=== PATIENT | male | born 1950 | race Caucasian/White ===

== ENCOUNTER → 2016-08-29 | Outpatient (REF) | payer MEDICARE ==
[2016-08-29 18:27] LABS: BASO % 0.8 % (0.0-1.0); EOS # 0.4 K/mm3 (0.0-0.50); EOS % 7.1 % (0.0-3.0); LARGE UNSTAINED CELL # 0.1 K/mm3 (0.0-0.4); LARGE UNSTAINED CELL % 1.2 % (0.0-4.0); LYMPH # 1.8 K/mm3 (1.5-4.5); LYMPH % 28.7 % (24.0-44.0); MEAN CORPUSCULAR HEMOGLOBIN 31.9 pg (27.0-33.0); MEAN CORPUSCULAR VOLUME 99.9 fl (80.0-96.0); MONO # 0.3 K/mm3 (0.0-0.8); NEUTROPHILS # 3.4 K/mm3 (1.8-7.7); NEUTROPHILS % 57.1 % (36.0-66.0); PLATELET COUNT, AUTOMATED 148 k/mm3 (150-450); RED CELL DISTRIBUTION WIDTH 13.3 % (11.5-14.5); WHITE BLOOD COUNT 5.9 K/mm3 (4.0-10.0)
[2016-08-29 19:22] LABS: ALBUMIN 3.6 GM/DL (3.2-5.2); ALBUMIN/GLOBULIN RATIO 1.33 (1.00-1.93); ALKALINE PHOSPHATASE 52 U/L (45-117); ALT/SGPT 26 U/L (12-78); ANION GAP 8 MEQ/L (8-16); AST/SGOT 21 U/L (15-37); BILIRUBIN,TOTAL 0.4 MG/DL (0.2-1.0); BLOOD UREA NITROGEN 18 MG/DL (7-18); CALCIUM LEVEL 8.4 MG/DL (8.8-10.2); CARBON DIOXIDE LEVEL 25 MEQ/L (21-32); CHLORIDE LEVEL 109 MEQ/L (98-107); CHOLESTEROL LEVEL 151 MG/DL (<200); CREATININE FOR GFR 1.31 MG/DL (0.70-1.30); GLOMERULAR FILTRATION RATE 58.3 (>49); GLUCOSE, FASTING 103 MG/DL (80-110); POTASSIUM SERUM 4.6 MEQ/L (3.5-5.1); SODIUM LEVEL 142 MEQ/L (136-145); TOTAL PROTEIN 6.3 GM/DL (6.4-8.2); TRIGLYCERIDES LEVEL 92 MG/DL (<150)
[2016-08-31 12:29] LABS: HIV SCREEN CENTAUR NEGATIVE (NEGATIVE)
== END ==
LOC: M SFHCCLAY 13:37
PROVIDERS: ATTEND Family Medicine
DX: I10 Essential (primary) hypertension (principal); Z11.59 Encounter for screening for other viral diseases; E78.5 Hyperlipidemia, unspecified; N52.1 Erectile dysfunction due to diseases classified elsewhere

== ENCOUNTER → 2016-10-21 | Outpatient (REF) | payer MEDICARE ==
[~2016-10-21] MED LIST: ASPI32ECTA PO; ATIV2TAB PO; CARV3.12 PO; CARV6.25 PO; FERR325T PO; GINK60TA3 PO; KOREAN GINSENG PO; LOSA25TA8 PO; LYRI300C PO; MAGN500C PO; NIAC250C13 PO; NIAC500T5 PO; PRAM0.5T4 PO; PRAV40TA2 PO; TRAZ100T4 PO; VITA500T3 PO; VITATAB11 PO; [UNRECOGNIZED DRUG - CODE] PO
[2016-10-21 18:10] LABS: ANION GAP 6 MEQ/L (8-16); BLOOD UREA NITROGEN 23 MG/DL (7-18); CALCIUM LEVEL 9.1 MG/DL (8.8-10.2); CARBON DIOXIDE LEVEL 28 MEQ/L (21-32); CHLORIDE LEVEL 109 MEQ/L (98-107); CREATININE FOR GFR 1.21 MG/DL (0.70-1.30); GLOMERULAR FILTRATION RATE > 60.0 (>49); GLUCOSE, FASTING 101 MG/DL (80-110); POTASSIUM SERUM 4.9 MEQ/L (3.5-5.1); SODIUM LEVEL 143 MEQ/L (136-145)
[2016-10-21 18:16] LABS: BASO % 0.6 % (0.0-1.0); EOS # 0.2 K/mm3 (0.0-0.50); EOS % 2.9 % (0.0-3.0); LARGE UNSTAINED CELL # 0.1 K/mm3 (0.0-0.4); LARGE UNSTAINED CELL % 2.2 % (0.0-4.0); LYMPH # 1.9 K/mm3 (1.5-4.5); LYMPH % 31.9 % (24.0-44.0); MEAN CORPUSCULAR HEMOGLOBIN 33.3 pg (27.0-33.0); MEAN CORPUSCULAR VOLUME 100.7 fl (80.0-96.0); MONO # 0.4 K/mm3 (0.0-0.8); MONO % 6.5 % (0.0-5.0); NEUTROPHILS # 3.4 K/mm3 (1.8-7.7); NEUTROPHILS % 55.9 % (36.0-66.0); PLATELET COUNT, AUTOMATED 145 k/mm3 (150-450); RED CELL DISTRIBUTION WIDTH 13.2 % (11.5-14.5); WHITE BLOOD COUNT 6.1 K/mm3 (4.0-10.0)
== END ==
LOC: M SFHCCLAY 13:21
PROVIDERS: ATTEND Family Medicine
DX: D64.9 Anemia, unspecified (principal); I10 Essential (primary) hypertension
CPT/HCPCS: 80048; 83540; 85025; 93005; G0463

== ENCOUNTER → 2016-10-26 | Day surgery (SDC) | payer MEDICARE ==
[~2016-10-26] VITALS: Ht 177.8 cm; Wt 81.6 kg
[~2016-10-26] MED LIST changes: +BUPIVACAINE HCL 0.25% 30 ML VIAL As Ordered ONE; +GLYCOPYRROLATE INJ 0.2 MG/ML 2 ML VIAL As Ordered ONE; +HYDROmorphone HCL 2 MG/ML 1ML VIAL (J1170) As Ordered ONE; +KETOROLAC 30 MG/ML VIAL (J1885) IV PRN; +LIDOCAINE 1% SDV INJ 30 ML VIAL As Ordered ONE; +LIDOCAINE 2% INJ 100 MG/5 ML SDV (FOR ANES.) As Ordered ONE; +LR 1,000 ML IV ONE; +LR 1,000 ML IV SCH; +MIDAZOLAM INJ 2 MG/2 ML VIAL (J2250) As Ordered ONE; +NEOSTIGMINE 1MG/ML 5 ML SYRINGE (J2710) As Ordered ONE; +NORCO, ANEXSIA 5/325MG TABLET (HYDROcodone/ACETAMINOPHEN) PO PRN; +ONDANSETRON 4MG/2ML VIAL (J2405) IV PRN; +PERCOCET 5MG/325MG TAB PO PRN; +PROPOFOL 200 MG/20 ML VIAL As Ordered ONE; +ROCURONIUM BROMIDE 50 MG/5 ML VIAL As Ordered ONE; +dexameTHASONE 4 MG/ML 1ML VIAL (J1100) As Ordered ONE; +ePHEDrine SULFATE 25 MG/5 ML(5MG/ML) SYRINGE As Ordered ONE; +fentaNYL 100 MCG/2 ML INJECTION (J3010) IV PRN; +fentaNYL 250 MCG/5 ML INJECTION (J3010) As Ordered ONE
--- NOTE | 2016-10-26 10:19 | ROOPDOC ---
[facility] Report Of Operation Report of Operation DATE OF PROCEDURE: 10/26/16 PREPROCEDURE DIAGNOSES:moderate sized right inguinal hernia POSTPROCEDURE DIAGNOSES: moderate sized indirect inguinal hernia PROCEDURE: Robotic Assisted Laparoscopic Right Inguinal Hernia Repair (VANDANA) SURGEON: Jason Thomson MD NUTRITION THERAPIST: Belkis Kee NP ANESTHESIA: general ESTIMATED BLOOD LOSS: Approximately 10 mL. COMPLICATIONS: none REMARKS: moderate sized inguinal hernia with large redundant sac dissected off the inguinal canal structures, a large light 3d-max mesh placed in the preperitoneal space. PROCEDURE NOTE: Patient is a 66 year old gengleman with a moderate sized hernia dropping to his scrotum with assocciated discomfort associated with the hernia. DESCRIPTION OF PROCEDURE: Patient was brought to the operating room, placed supine on the operating table. Compression boots placed in both lower extremities for DVT prophylaxis. After adequate general anesthesia started, he was placed on a lithotomy position. A spangler catheter placed without difficulty. His abdomen and groin/ pelvic area then prepped and draped in the usual sterile fashion. After a surgical timeout we began our surgery. Entry to the abdomen done through a small incision above the umbilical skin cleft. A Veress needle is inserted on a controlled fashion. CO2 insufflation started to pressure 15 mmHg. Using the same incision a 5 mm Visiport was then placed under direct vision of laparoscope. The insertion site was inspected for injury and none was found. Patient was then positioned on a Trendelenburg position with the affected side tilted upwards for adequate view of the hernia defect. 2 working ports placed to the right and left of the umbilicus along the same line. The da Michael robot to our was then positioned in between the patient' s legs and the [facility] onto the robot. I then unscrubbed and to control of the camera and the laparoscopic instruments at the surgeon's console. Diagnostic laparoscopy confirms presence of the right inguinal hernia which appears indirect in nature relative to its position to the inferior epigastric vessels. There is a slight indentation at the direct space but no clear hernia. The hernia fascial defect is about 2 centimeters in size. The peritoneum was opened up about 3 cm above the superior edge of the fascial defect of the inguinal hernia starting at the medial umbilical ligament going in an arc-like fashion laterally towards the level of the anterior superior iliac spine. This was then dissected mostly bluntly away from the abdominal wall. On approaching the inguinal hernia defect the hernia sac was pulled back into the preperitoneal space and carefully dissected off the testicular vessels and vas deferens. Both these structures were promptly identified and from the hernia sac. Hernia sac itself was quite redundant. Small amount of bleeding on opening up the cremaster muscles and dissecting the sac and the small lipoma away from the testicular vessels. This was controlled with bipolar cautery. After freeing up the hernia sac we continued dissecting it off inferiorly to from the vas deferens and testicular vessels. The preperitoneal space was dissected medially to expose the pubic tubercle up towards the symphysis pubis. The remaining are all her fibers were bluntly dissected away from the abdominal wall to create space for the mesh. After fully dissecting the preperitoneal space, we checked for adequate hemostasis. A large 3-D Max light mesh was chosen. This was rolled tightly placed through the laparoscopic port into the abdomen. This was positioned in the preperitoneal space abutting the abdominal wall to adequately cover the indirect as well as direct hernia space. I made sure the mesh was laying flat on the abdominal wall. This was secured onto the pubic tubercle with a single stitch of 2-0 Vicryl. Again after checking for hemostasis the preperitoneal space was then closed by suturing the peritoneal incision using a running stitch of 2-0V LOC. Prior to coming out a survey of the abdomen was done to make sure no inadvertent injury occurred. I then scrubbed back in. The abdomen was deflated and all ports removed. The 3 incisions were closed with 4-0 Monocryl in a subcuticular fashion. Dermabond was used for dressing. Spangler catheter was removed. Patient was then promptly awakened and extubated and brought to the recovery room stable . All counts of sponges and instruments were verified correct. JURGEN THOMSON MD October 26, 2016 09:27
[2016-10-26 12:53] VITALS: BP 126/73
== END | disposition home or self-care (01) ==
LOC: M SDC 05:36
PROVIDERS: ATTEND Surgery
DX: K40.90 Unilateral inguinal hernia, without obstruction or gangrene, not specified as recurrent (principal); I10 Essential (primary) hypertension; I48.91 Unspecified atrial fibrillation; I25.10 Atherosclerotic heart disease of native coronary artery without angina pectoris; I25.2 Old myocardial infarction; E78.5 Hyperlipidemia, unspecified; F41.9 Anxiety disorder, unspecified; Z98.61 Coronary angioplasty status; Z79.82 Long term (current) use of aspirin; Z79.899 Other long term (current) drug therapy; Z87.891 Personal history of nicotine dependence
CPT/HCPCS: 49650; C1781; J0690; J1100; J1170; J2250; J2710; J3010

== ENCOUNTER 2016-10-30 16:12 | Emergency (ER) | payer MEDICARE ==
[~2016-10-30 16:12] MED LIST changes: -BUPIVACAINE HCL 0.25% 30 ML VIAL As Ordered ONE; -CARV3.12 PO; -GLYCOPYRROLATE INJ 0.2 MG/ML 2 ML VIAL As Ordered ONE; -HYDROmorphone HCL 2 MG/ML 1ML VIAL (J1170) As Ordered ONE; -KETOROLAC 30 MG/ML VIAL (J1885) IV PRN; -LIDOCAINE 1% SDV INJ 30 ML VIAL As Ordered ONE; -LIDOCAINE 2% INJ 100 MG/5 ML SDV (FOR ANES.) As Ordered ONE; -LR 1,000 ML IV ONE; -LR 1,000 ML IV SCH; -MIDAZOLAM INJ 2 MG/2 ML VIAL (J2250) As Ordered ONE; -NEOSTIGMINE 1MG/ML 5 ML SYRINGE (J2710) As Ordered ONE; -NORCO, ANEXSIA 5/325MG TABLET (HYDROcodone/ACETAMINOPHEN) PO PRN; -ONDANSETRON 4MG/2ML VIAL (J2405) IV PRN; -PERCOCET 5MG/325MG TAB PO PRN; -PROPOFOL 200 MG/20 ML VIAL As Ordered ONE; -ROCURONIUM BROMIDE 50 MG/5 ML VIAL As Ordered ONE; -dexameTHASONE 4 MG/ML 1ML VIAL (J1100) As Ordered ONE; -ePHEDrine SULFATE 25 MG/5 ML(5MG/ML) SYRINGE As Ordered ONE; -fentaNYL 100 MCG/2 ML INJECTION (J3010) IV PRN; -fentaNYL 250 MCG/5 ML INJECTION (J3010) As Ordered ONE
--- NOTE | 2016-10-30 17:26 | REP ---
Chest one-view HISTORY: Shortness of breath Comparison: None The lungs are clear. The heart is normal in size. The pulmonary vasculature is normal in appearance. Impression: No acute disease. Signed by Tru Fregoso MD 10/30/2016 05:17 P
[2016-10-30 17:37] LABS: ANION GAP 8 MEQ/L (8-16); BLOOD UREA NITROGEN 33 MG/DL (7-18); CALCIUM LEVEL 8.8 MG/DL (8.8-10.2); CARBON DIOXIDE LEVEL 27 MEQ/L (21-32); CHLORIDE LEVEL 108 MEQ/L (98-107); CREATININE FOR GFR 1.06 MG/DL (0.70-1.30); GLOMERULAR FILTRATION RATE > 60.0 (>49); GLUCOSE, FASTING 103 MG/DL (80-110); POTASSIUM SERUM 3.8 MEQ/L (3.5-5.1); SODIUM LEVEL 143 MEQ/L (136-145)
[2016-10-30 17:43] LABS: MEAN CORPUSCULAR HEMOGLOBIN 33.5 pg (27.0-33.0); MEAN CORPUSCULAR HGB CONC 34.5 g/dl (32.0-36.5); RED CELL DISTRIBUTION WIDTH 13.1 % (11.5-14.5)
[2016-10-30] MEDS ORDERED: CARV3.12 PO (18:06)
[2016-10-30 18:15] VITALS: BP 140/65
[2016-10-30 18:22] LABS: BANDS 1 % (< 11)
[2016-10-30 18:49] LABS: METHADONE URINE NEGATIVE (NEGATIVE)
--- NOTE | 2016-10-31 06:54 | REP ---
CT HEAD WITHOUT CONTRAST: HISTORY: Altered mental status. A large area of decreased attenuation is present in the left temporal and parietal lobes and posterior left frontal lobe. There is mass effect with effacement of the overlying cortical sulci and partial effacement of the body of the left lateral and third ventricles with very minimal midline shift to the right. This represents a late acute infarction. A very small hemorrhagic component is present. There appears to be thrombus in the left middle cerebral artery. The ventricular system and cortical sulci are dilated consistent with minimal volume loss. There is no extracerebral collection. There is no fracture. Mucosal thickening is present in the left sphenoid sinus. A punctate radiopaque foreign body is present in the soft tissue overlying the left frontal bone. IMPRESSION: There is a late acute infarct in the left temporoparietal and posterior left frontal lobes with mass effect and very minimal midline shift to the right. A very small hemorrhagic component is present. Thrombus is present in the left middle cerebral artery. Signed by Tru Fregoso MD 10/31/2016 08:28 A
--- NOTE | 2016-10-31 07:02 | REP ---
CT CERVICAL SPINE WITHOUT CONTRAST: HISTORY: Fall. There is no acute fracture or subluxation. Disc bulges are present at the C3-4 and C4-5 levels. A disc bulge with associated osteophyte formation is present at the C5-6 level. There is minimal narrowing of the spinal canal. Uncinate process hypertrophy is present at the C5-6 level. This produces minimal narrowing of the neural foramina. The C5-6 intervertebral disc is decreased in height consistent with disc degeneration. IMPRESSION: 1. There is no acute fracture or subluxation. 2. There is cervical spondylosis at the C3-4 through C5-6 levels. Signed by Tru Fregoso MD 10/31/2016 08:28 A
== END 2016-10-30 18:21 | disposition short-term general hospital (02) ==
LOC: M ED 16:54
DX: I63.9 Cerebral infarction, unspecified (principal); R41.82 Altered mental status, unspecified; S40.211A Abrasion of right shoulder, initial encounter; W19.XXXA Unspecified fall, initial encounter; Y92.89 Other specified places as the place of occurrence of the external cause; Y93.89 Activity, other specified; Y99.8 Other external cause status; I10 Essential (primary) hypertension; K21.9 Gastro-esophageal reflux disease without esophagitis; Z79.899 Other long term (current) drug therapy
CPT/HCPCS: 36415; 70450; 71010; 72125; 80048; 80306; 81001; 82140; 85007; 85027; 99285; G0480

== ENCOUNTER 2018-06-27 14:15 | Outpatient (RCR) | payer MEDICARE, MEDICAID ==
[~2018-06-27 14:15] MED LIST changes: +ASPI325T25 PO; -ASPI32ECTA PO; +CARV3.12 PO; +FERR1TAB8 PO; -FERR325T PO; -GINK60TA3 PO; +GINK60TA4 PO; +LOSA25TA14 PO; -LOSA25TA8 PO; -PRAM0.5T4 PO; +PRAM0.5T7 PO; +TRAZ-163 PO; -TRAZ100T4 PO; +[UNRECOGNIZED DRUG - CODE] PO; -[UNRECOGNIZED DRUG - CODE] PO
== END 2018-06-28 ==
LOC: M ST 14:15
PROVIDERS: ATTEND Family Medicine
DX: I69.320 Aphasia following cerebral infarction (principal)

== ENCOUNTER 2018-07-25 14:15 | Outpatient (RCR) | payer MEDICARE, MEDICAID | END 2018-07-26 | LOC: M ST 14:15 | PROVIDERS: ATTEND Family Medicine | DX: I69.320 Aphasia following cerebral infarction (principal) ==

== ENCOUNTER 2018-08-01 13:53 | Outpatient (RCR) | payer MEDICARE, MEDICAID | END 2018-08-26 | LOC: M ST 13:53 | PROVIDERS: ATTEND Family Medicine | DX: I69.320 Aphasia following cerebral infarction (principal) ==

== ENCOUNTER 2018-12-26 16:32 | Inpatient (IN) | payer MEDICARE, MEDICAID ==
[~2018-12-26] VITALS: Ht 177.8 cm; Wt 97.5 kg
[~2018-12-26 16:32] MED LIST changes: +ASPI-255 PO; -ASPI325T25 PO; +CYAN500T8 PO; -VITA500T3 PO
[2018-12-26 20:18] VITALS: BP 119/67
[2018-12-26] MEDS ORDERED: MOM 30ML SUSPENSION UDC PO PRN (20:30)
[2018-12-26] MEDS ORDERED: MAALOX 30 ML SUSP *UDC PO PRN (20:30)
[2018-12-26] MEDS ORDERED: HYDR-3713 PO (21:54)
[2018-12-26] MEDS ORDERED: CITA20TA6 PO (21:54)
[2018-12-26] MEDS ORDERED: DILT30TA PO (21:54)
[2018-12-26] MEDS ORDERED: XARE20TA PO (22:02)
[2018-12-26] MEDS ORDERED: ATOR40TA75 PO (22:02)
[2018-12-26] MEDS ORDERED: PRAM1TAB7 PO (22:02)
[2018-12-26] MEDS ORDERED: QUET1TAB7 PO (22:02)
[2018-12-26] MEDS ORDERED: BUSP5TAB81 PO (22:02)
[2018-12-26] MEDS ORDERED: GABA-843 PO (22:02)
[2018-12-26] MEDS ORDERED: LEVE750T5 PO (22:02)
[2018-12-26] MEDS ORDERED: DULO30CA9 PO (22:02)
[2018-12-26] MEDS ORDERED: OMEP-218 PO (22:02)
[2018-12-26] MEDS ORDERED: FURO20TA2 PO (22:02)
[2018-12-26] MEDS ORDERED: PATIENT COMMENTS (22:04)
[2018-12-26] MEDS ORDERED: NS 1,000 ML IV SCH (22:30)
[2018-12-26] MEDS: DOCUSATE SODIUM 100 MG CAP PO SCH (22:50)
[2018-12-26] MEDS: MORPHINE 4 MG/ML 1ML VIAL/SYRINGE (J2270) IV PRN (22:53)
[2018-12-26 23:44] LABS: HEMATOCRIT 40.2 % (42.0-52.0); HEMOGLOBIN 12.8 g/dl (13.5-17.5); MEAN CORPUSCULAR HEMOGLOBIN 32.1 pg (27.0-33.0); MEAN CORPUSCULAR HGB CONC 31.8 g/dl (32.0-36.5); MEAN CORPUSCULAR VOLUME 100.8 fl (80.0-96.0); PLATELET COUNT, AUTOMATED 197 10^3/uL (150-450); RED BLOOD COUNT 3.99 10^6/uL (4.30-6.10); WHITE BLOOD COUNT 6.1 10^3/uL (4.0-10.0)
[2018-12-26 23:56] LABS: INR 1.1; PROTHROMBIN TIME 13.9 SECONDS (11.8-14.0)
[2018-12-26] MEDS ORDERED: VANCOMYCIN HCL 1,000 MG, VIAL MATE ADAPTER 1 EACH in D5W 250 ML IV ONE (23:59)
[2018-12-27 00:05] LABS: ALBUMIN 3.6 GM/DL (3.2-5.2); BILIRUBIN,TOTAL 0.9 MG/DL (0.2-1.0); CALCIUM LEVEL 9.2 MG/DL (8.8-10.2); CREATININE FOR GFR 1.38 MG/DL (0.70-1.30); GLOMERULAR FILTRATION RATE 54.5 (>49)
--- NOTE | 2018-12-27 00:24 | PHACANCOPD ---
PHARMACY VANCOMYCIN DOSING Pt Demographics Demographics Patient Age:68 , Weight:97.500 , Gender: male Adjusted Body Weight Date: 12/27/18, Adjusted Body Weight: Kg Events Past 24 Hours Events Past 24 Hours: NO: Dialysis, Diuretic Therapy, Change in CrCl, Fever, Elevation in WBC, Pending Diagnostics, Pending Procedures, Other Vancomycin Vancomycin Target Ranges: 10-20 mcg/ml Vancomycin Load Y/N: Yes Load Dose Date Time Vancomycin Load Dose: 2000mg Date: 12-27 Time: 0200 Vancomycin Dose Date: 12/27/18. Current Vancomycin Dose: [1000mg q8h] Intermittent Dosing?: No Labs Labs Item Value Date Time White Blood Count 6.1 10^3/uL 12/26/184 Glomerular Filtration Rate 54.5 12/26/184 Creatinine 1.38 MG/DL H 12/26/182313 Blood Urea Nitrogen 26 MG/DL H 12/26/182313 Vital Signs Label Value Date Time Patient Temperature 98.4 degrees F 12/26/182017 Temperature Source Temporal 12/26/182017 Micro Microbiology 12/26/18 Blood Culture, Received Pending 12/26/18 Blood Culture, Received Pending Creatinine Clearance Date:12/27/18. Creatinine Clearance: [~50]. Pending Labs trough 12-27 @1700 Assessment and Plan Maintaining Current Dose?: Yes Reason for dose change: No Dose Change Pharmacist Note Pharmacist Note Date: 12/27/18. Pharmacist note:Will monitor and make adjustments as needed. [facility] Dec 27, 2018 00:23
--- NOTE | 2018-12-27 01:14 | HPEPDOC ---
General Date of Admission Dec 26, 2018 at 20:18 Date of Service: Dec 26, 2018 Primary Care Physician: A Attending Physician: CHIQUIS CLEMENT MD Chief Complaint The patient is a 68-year-old male admitted with a reason for visit of Cellulitis. History of Present Illness Patient was admitted on 12/26/2018 .This is a 68-year-old male with a history of chronic A. 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 Leg worsened and increased swelling and redness and wound right calf and increased calf tenderness,. Patient went to [facility] and sonogram of the extremity was positive for bilateral DVT. The left one is non occlusive and a right showing improvement. Patient was started on clindamycin and sent to this hospital for further treatment. Patient denies any fever, chills. He'll be admitted to Med Surg for the above. White blood extremity cellulitis and infected wound right calf. Home Medications Scheduled Atorvastatin Calcium (Atorvastatin Calcium) 40 Mg Tablet, 40 MG PO DAILY, (Reported) Citalopram Hydrobromide (Citalopram HBr) 20 Mg Tablet, 20 MG PO DAILY, (Reported) A NEW RX FOR 40 MG WAS SENT TO THE PHARMACY 12/25/2018. UNKNOWN IF THIS HAS BEEN STARTED Diltiazem HCl (Diltiazem HCl) 30 Mg Tablet, 30 MG PO TID, (Reported) Duloxetine Hcl (Duloxetine HCl) 30 Mg Capsule.dr, 30 MG PO BID, (Reported) Furosemide (Furosemide) 20 Mg Tablet, 20 MG PO BID, (Reported) Gabapentin (Gabapentin) 300 Mg Capsule, 300 MG PO TID, (Reported) Levetiracetam (Levetiracetam) 750 Mg Tablet, 750 MG PO BID, (Reported) Omeprazole (Omeprazole) 20 Mg Capsule.dr, 20 MG PO DAILY, (Reported) Pramipexole Di-HCl (Pramipexole Dihydrochloride) 1 Mg Tablet, 1 MG PO BID, (Reported) Quetiapine Fumarate (Quetiapine Fumarate) 25 Mg Tablet, 25 MG PO QHS, (Reported) Rivaroxaban (Xarelto) 20 Mg Tablet, 20 MG PO DAILY, (Reported) Scheduled PRN Buspirone HCl (Buspirone HCl) 5 Mg Tablet, 5 MG PO TID PRN for ANXIETY, (Reported) Hydrocodone/Acetaminophen (Hydrocodone-Acetamin 5-325 mg) 1 Each Tablet, 1 TAB PO Q8H PRN for PAIN, (Reported) Miscellaneous Medications [Patient Comments] , (Reported) 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 HE DID NOT KNOW HIS MEDICATIONS AND WAS UNACCOMPANIED ON ADMISSION Allergies Coded Allergies: No Known Allergies (Unverified , 10/26/16) Past Medical History Medical History Atrial fibrillation. CVA. Hyperlipidemia Hypertension Chronic DVT, lower extremity. GERD Family History Family history reviewed and noncontributory Social History * Smoker: Denies (smoking, alcohol or drug use) A-FIB/CHADSVASC A-FIB History Current/History of A-Fib/PAF?: Yes Current PO Anticoag Therapy: Yes (DVT lower extremity) Review of Systems Other systems Positive right lower extremity swelling ,pain, and redness and wound,. No fever or chills .The rest of the 12 point review of systems negative Physical Examination General Exam: Positive: Alert (no distress) Eye Exam: Positive: PERRLA ENT Exam: Positive: Atraumatic Neck Exam: Positive: Supple Chest Exam: Positive: Clear to auscultation Heart Exam: Positive: Rate Normal, Regular Rhythm Abdomen Exam: Positive: Normal bowel sounds, Soft (nontender) Extremity Exam: Positive: Edema (positive redness right lower extremity and positive calf tenderness,. Positive pus wound drainage Right calf And 2+ pulses) Neuro Exam: Positive: Normal Speech (oriented 3. Right upper extremity deficit) Vital Signs see below Weight (kg): 177.8 BMI (kg): 30.8 Laboratory Data CBC/BMP see below Assessment/Plan #1. Cellulitis, swelling or extremity. Vancomycin IV and pharmacy protocol. Blood culture 2 #2. Infected wound, right calf, Vancomycin and wound care consult. #3. Bilateral lower extremity DVT, Continue xarelto. #4. Chronic A. fib, normal rate On Xarelto. diltiazem #5. Hemorrhagic CVA, right-sided weakness. On antiplatelet and xarelto. #6 Neuropathy . On gabapentin, cymbalta #7 history of CABG with CAD Carvedilol. #8. Hyperlipidemia, Continue atorvastatin Patient stable and case discussed with Dr. Dr. Clement. Hospitalists. Time spent 50 minutes. Follow wound culture Plan / VTE VTE Prophylaxis Ordered?: Yes JASON JENKINS PA-C Dec 26, 2018 23:08 CHIQUIS CLEMENT MD Dec 27, 2018 07:02
[2018-12-27] MEDS: VANCOMYCIN HCL 1,000 MG, VIAL MATE ADAPTER 1 EACH in D5W 250 ML IV SCH ×3 (03:17→17:45)
[2018-12-27 06:00] VITALS: BP 121/69
[2018-12-27] MEDS ORDERED: busPIRone 5 MG TAB PO PRN (07:00)
[2018-12-27 07:51] LABS: BASO % 0.5 % (0.0-1.0); EOS # 0.2 10^3/uL (0.0-0.50); EOS % 3.9 % (0.0-3.0); HEMATOCRIT 36.9 % (42.0-52.0); HEMOGLOBIN 11.8 g/dl (13.5-17.5); LYMPH # 1.2 10^3/uL (1.5-4.5); LYMPH % 19.7 % (24.0-44.0); MEAN CORPUSCULAR HEMOGLOBIN 31.6 pg (27.0-33.0); MEAN CORPUSCULAR VOLUME 98.7 fl (80.0-96.0); MONO % 16.3 % (0.0-5.0); NEUTROPHILS # 3.6 10^3/uL (1.8-7.7); NEUTROPHILS % 58.9 % (36.0-66.0); PLATELET COUNT, AUTOMATED 188 10^3/uL (150-450); RED BLOOD COUNT 3.74 10^6/uL (4.30-6.10); WHITE BLOOD COUNT 6.1 10^3/uL (4.0-10.0)
[2018-12-27 08:21] LABS: CALCIUM LEVEL 8.7 MG/DL (8.8-10.2); CREATININE FOR GFR 1.32 MG/DL (0.70-1.30); GLOMERULAR FILTRATION RATE 57.4 (>49)
[2018-12-27] MEDS: GABAPENTIN 300 MG CAP PO SCH ×3 (08:53→21:37)
[2018-12-27] MEDS: DOCUSATE SODIUM 100 MG CAP PO SCH ×2 (08:53→21:37)
[2018-12-27] MEDS: DULoxetine 30 MG CAP (CYMBALTA) PO SCH ×2 (08:53→21:37)
[2018-12-27] MEDS: levETIRAcetam 250MG TABLET (KEPPRA) PO SCH ×2 (08:53→21:37)
[2018-12-27] MEDS: CitaloPRAM (CeleXA) 20 MG TAB PO SCH (08:54)
[2018-12-27] MEDS: ATORVASTATIN 20 MG TAB PO SCH (08:55)
[2018-12-27] MEDS: OMEPRAZOLE 20 MG CAP PO SCH (08:55)
[2018-12-27] MEDS: PRAMIPEXOLE 1 MG TAB PO SCH ×2 (08:55→21:36)
[2018-12-27] MEDS: NORCO, ANEXSIA 5/325MG TABLET (HYDROcodone/ACETAMINOPHEN) PO PRN ×2 (08:57→21:36)
[2018-12-27] MEDS: PIPERACILLIN/TAZOBACTAM SOD 3.375 GM in D5W MINI-BAG PLUS 50 ML IV SCH ×3 (13:26→18:52)
[2018-12-27 14:00] VITALS: BP 104/65
[2018-12-27] MEDS: MORPHINE 4 MG/ML 1ML VIAL/SYRINGE (J2270) IV PRN (14:57)
[2018-12-27] MEDS: RIVAROXABAN 20 MG TAB (XARELTO) PO SCH (17:45)
--- NOTE | 2018-12-27 19:15 | PHACANCOPD ---
PHARMACY VANCOMYCIN DOSING Pt Demographics Demographics Patient Age:68 , Weight:97.500 , Gender: male Events Past 24 Hours Events Past 24 Hours: NO: Dialysis, Diuretic Therapy, Change in CrCl, Fever, Elevation in WBC, Pending Diagnostics, Pending Procedures, Other Vancomycin Vancomycin indication: SSSI Vancomycin Target Ranges: 10-20 mcg/ml Vancomycin Load Y/N: Yes Load Dose Date Time Vancomycin Load Dose: 2000mg Date: 12-27 Time: 0200 Vancomycin Dose Date: 12/27/18. Current Vancomycin Dose: [1000mg q8h] Intermittent Dosing?: No Labs Labs Laboratory Tests Test 12/27/18 17:20 Vancomycin Level Trough 21.3 UG/ML (10.0-20.0) Laboratory Tests 12/27/18 07:26 Red Blood Count 3.74, Mean Corpuscular Volume 98.7, Mean Corpuscular Hemoglobin 31.6, Mean Corpuscular Hemoglobin Concent 32.0, Red Cell Distribution Width 13.8, Calcium Level 8.7, Neutrophils (%) (Auto) 58.9, Lymphocytes (%) (Auto) 19.7, Monocytes (%) (Auto) 16.3, Eosinophils (%) (Auto) 3.9, Basophils (%) (Auto) 0.5, Neutrophils # (Auto) 3.6, Lymphocytes # (Auto) 1.2, Monocytes # (Auto) 1.0, Eosinophils # (Auto) 0.2, Basophils # (Auto) 0.0 Micro Microbiology 12/26/18 Blood Culture, Received Pending 12/26/18 Blood Culture, Received Pending Creatinine Clearance Date:12/27/18. Creatinine Clearance: [~50]. Assessment and Plan Maintaining Current Dose?: No Reason for dose change: Trough too high Pharmacist Note Pharmacist Note Date: 12/27/18. PharmD note: VANCO 1GM IV Q8H RESULTED IN A VANCO TR 21.3mcg/ML (goal 10-20 for SSSI). HIS 18:00 DOSE IS CURRENTLY INFUSING. WILL CHANGE HIS VANCO TO 1GM IV Q12H STARTING AT 09:00 [facility] Dec 27, 2018 19:15
[2018-12-27 20:00] VITALS: BP 126/69
[2018-12-27] MEDS: QUEtiapine FUMARATE 25 MG TAB PO SCH (21:37)
[2018-12-28] MEDS: CLINDAMYCIN 600 MG in APPROPRIATE DILUENT 1 EA IV SCH ×4 (01:10→17:26)
[2018-12-28] MEDS: NORCO, ANEXSIA 5/325MG TABLET (HYDROcodone/ACETAMINOPHEN) PO PRN ×3 (05:57→22:13)
[2018-12-28 06:00] VITALS: BP 135/75
[2018-12-28 07:43] LABS: BASO % 0.6 % (0.0-1.0); EOS # 0.3 10^3/uL (0.0-0.50); EOS % 5.5 % (0.0-3.0); HEMATOCRIT 33.5 % (42.0-52.0); HEMOGLOBIN 10.8 g/dl (13.5-17.5); LYMPH % 20.1 % (24.0-44.0); MEAN CORPUSCULAR HEMOGLOBIN 31.5 pg (27.0-33.0); MEAN CORPUSCULAR HGB CONC 32.2 g/dl (32.0-36.5); MEAN CORPUSCULAR VOLUME 97.7 fl (80.0-96.0); MONO # 0.6 10^3/uL (0.0-0.8); MONO % 12.1 % (0.0-5.0); NEUTROPHILS # 2.9 10^3/uL (1.8-7.7); NEUTROPHILS % 60.9 % (36.0-66.0); PLATELET COUNT, AUTOMATED 175 10^3/uL (150-450); RED BLOOD COUNT 3.43 10^6/uL (4.30-6.10); WHITE BLOOD COUNT 4.7 10^3/uL (4.0-10.0)
[2018-12-28 08:06] LABS: BLOOD UREA NITROGEN 22 MG/DL (7-18); CALCIUM LEVEL 8.8 MG/DL (8.8-10.2); CARBON DIOXIDE LEVEL 27 MEQ/L (21-32); CHLORIDE LEVEL 106 MEQ/L (98-107); CREATININE FOR GFR 1.23 MG/DL (0.70-1.30); GLOMERULAR FILTRATION RATE > 60.0 (>49); GLUCOSE, FASTING 97 MG/DL (70-100); POTASSIUM SERUM 3.9 MEQ/L (3.5-5.1); SODIUM LEVEL 139 MEQ/L (136-145)
[2018-12-28] MEDS ORDERED: VANCOMYCIN HCL 1,000 MG, VIAL MATE ADAPTER 1 EACH in D5W 250 ML IV SCH (09:00)
[2018-12-28] MEDS: PRAMIPEXOLE 1 MG TAB PO SCH ×2 (09:12→22:13)
[2018-12-28] MEDS: DOCUSATE SODIUM 100 MG CAP PO SCH ×2 (09:12→22:12)
[2018-12-28] MEDS: ATORVASTATIN 20 MG TAB PO SCH (09:12)
[2018-12-28] MEDS: CitaloPRAM (CeleXA) 20 MG TAB PO SCH (09:12)
[2018-12-28] MEDS: levETIRAcetam 250MG TABLET (KEPPRA) PO SCH ×2 (09:12→22:14)
[2018-12-28] MEDS: DULoxetine 30 MG CAP (CYMBALTA) PO SCH ×2 (09:12→22:14)
[2018-12-28] MEDS: GABAPENTIN 300 MG CAP PO SCH ×3 (09:12→22:14)
[2018-12-28] MEDS: OMEPRAZOLE 20 MG CAP PO SCH (09:12)
[2018-12-28 14:00] VITALS: BP 142/60
[2018-12-28] MEDS: RIVAROXABAN 20 MG TAB (XARELTO) PO SCH (17:26)
[2018-12-28 22:00] VITALS: BP 120/68
[2018-12-28] MEDS: QUEtiapine FUMARATE 25 MG TAB PO SCH (22:14)
--- NOTE | 2018-12-28 23:51 | IPNPDOC ---
Date Seen The patient was seen on 12/28/18. Progress Note SUBJECTIVE:Patient complained of right leg pain with movement, but swelling is improving and he can move his legs a bit more now, but otherwise non complaint, denied fever, chills, nausea and vomiting Objective vital signs and labs reviewed PHYSICAL EXAMINATION Gen: NAD, hx of right sided cva, has some dysathria HEENT: normocephalic, atraumatic, PERRLA , EOMI, neck supple CVS: RRR, normal S1n S2, no murmur, rubs, or gallops, b/l lower extremity edema R>L, no jvd Resp: LCTAB, no rhonchi, wheezes, or crackles Abd : soft, normal bowel sounds, no rebound tenderness or guarding MSK: +swelling, + erythema, and tenderness , reduced strength on the right LE and UE 3/5, left side 5/5 skin - right lower extremity swelling with areas of small wounds possible venous ulcers , looks infected , Neuro: awake and alert, no confusion Psych: normal mood and affect, Assessment and plan Cellulitis, swelling of lower extremities, right but greater than left - with areas of open wound/ulcers . dc Vancomycin IV and pharmacy protocol. c/w iv clinda f/u wound culture report and adjust abx accordingly Bilateral lower extremity DVT,- based on previous notes, haven't seen any test report Continue xarelto. Chronic A. fib, normal rate On Xarelto. diltiazem Hemorrhagic CVA, right-sided weakness.- chronic On antiplatelet and xarelto. Neuropathy . On gabapentin, cymbalta history of CABG with CAD Carvedilol. Hyperlipidemia, Continue atorvastatin dvt ppx VS, I&O, 24H, Fishbone Vital Signs/I&O Vital Signs Date Time Temp Pulse Resp B/P (MAP) Pulse Ox O2 Delivery O2 Flow Rate FiO2 12/28/18 22:43 18 12/28/18 22:13 78 131/72 12/28/18 22:00 98.8 96 12/27/18 20:00 2.0 I&O- Last 24 Hours up to 6 AM 12/28/18 06:00 Intake Total 810 ml Output Total 950 ml Balance -140 ml Laboratory Data 24H LABS Laboratory Tests 2 12/28/18 07:32: Immature Granulocyte % (Auto) 0.8, White Blood Count 4.7, Red Blood Count 3.43L, Hemoglobin 10.8L, Hematocrit 33.5L, Mean Corpuscular Volume 97.7H, Mean Corpuscular Hemoglobin 31.5, Mean Corpuscular Hemoglobin Concent 32.2, Red Cell Distribution Width 13.4, Platelet Count 175, Neutrophils (%) (Auto) 60.9, Lymphocytes (%) (Auto) 20.1L, Monocytes (%) (Auto) 12.1H, Eosinophils (%) (Auto) 5.5H, Basophils (%) (Auto) 0.6, Neutrophils # (Auto) 2.9, Lymphocytes # (Auto) 1.0L, Monocytes # (Auto) 0.6, Eosinophils # (Auto) 0.3, Basophils # (Auto) 0.0, Nucleated Red Blood Cells % (auto) 0.0, Anion Gap 6L, Glomerular Filtration Rate > 60.0, Blood Urea Nitrogen 22H, Creatinine 1.23, Sodium Level 139, Potassium Level 3.9, Chloride Level 106, Carbon Dioxide Level 27, Calcium Level 8.8 CBC/BMP Laboratory Tests 12/28/18 07:32 Red Blood Count 3.43 L, Mean Corpuscular Volume 97.7 H, Mean Corpuscular Hemoglobin 31.5, Mean Corpuscular Hemoglobin Concent 32.2, Red Cell Distribution Width 13.4, Neutrophils (%) (Auto) 60.9, Lymphocytes (%) (Auto) 20.1 L, Monocytes (%) (Auto) 12.1 H, Eosinophils (%) (Auto) 5.5 H, Basophils (%) (Auto) 0.6, Neutrophils # (Auto) 2.9, Lymphocytes # (Auto) 1.0 L, Monocytes # (Auto) 0.6, Eosinophils # (Auto) 0.3, Basophils # (Auto) 0.0, Calcium Level 8.8 Microbiology Microbiology 12/26/18 Blood Culture - Preliminary, Resulted No Growth after 48 hours. All Specime... 12/26/18 Blood Culture - Preliminary, Resulted No Growth after 48 hours. All Specime... 12/28/18 Gram Stain - Final, Resulted 12/28/18 Wound Culture, Resulted Pending 12/28/18 Gram Stain - Final, Resulted 12/28/18 Wound Culture, Resulted Pending TRENT CASTAÑEDA MD Dec 28, 2018 23:51
[2018-12-29] MEDS: CLINDAMYCIN 600 MG in APPROPRIATE DILUENT 1 EA IV SCH ×4 (00:52→18:05)
[2018-12-29 06:00] VITALS: BP 129/76
[2018-12-29] MEDS: NORCO, ANEXSIA 5/325MG TABLET (HYDROcodone/ACETAMINOPHEN) PO PRN ×2 (06:45→15:42)
[2018-12-29] MEDS: levETIRAcetam 250MG TABLET (KEPPRA) PO SCH ×2 (09:08→20:03)
[2018-12-29] MEDS: CitaloPRAM (CeleXA) 20 MG TAB PO SCH (09:09)
[2018-12-29] MEDS: PRAMIPEXOLE 1 MG TAB PO SCH ×2 (09:09→20:03)
[2018-12-29] MEDS: GABAPENTIN 300 MG CAP PO SCH ×3 (09:09→20:04)
[2018-12-29] MEDS: ATORVASTATIN 20 MG TAB PO SCH (09:09)
[2018-12-29] MEDS: OMEPRAZOLE 20 MG CAP PO SCH (09:10)
[2018-12-29] MEDS: DOCUSATE SODIUM 100 MG CAP PO SCH ×2 (09:10→20:03)
[2018-12-29] MEDS: DULoxetine 30 MG CAP (CYMBALTA) PO SCH ×2 (09:10→20:04)
[2018-12-29 09:20] LABS: BASO % 0.5 % (0.0-1.0); EOS # 0.2 10^3/uL (0.0-0.50); EOS % 5.1 % (0.0-3.0); HEMOGLOBIN 12.1 g/dl (13.5-17.5); LYMPH # 0.9 10^3/uL (1.5-4.5); LYMPH % 21.9 % (24.0-44.0); MEAN CORPUSCULAR HEMOGLOBIN 31.7 pg (27.0-33.0); MEAN CORPUSCULAR VOLUME 102.1 fl (80.0-96.0); MONO # 0.5 10^3/uL (0.0-0.8); MONO % 12.4 % (0.0-5.0); NEUTROPHILS # 2.4 10^3/uL (1.8-7.7); NEUTROPHILS % 59.4 % (36.0-66.0); PLATELET COUNT, AUTOMATED 181 10^3/uL (150-450); RED BLOOD COUNT 3.82 10^6/uL (4.30-6.10); WHITE BLOOD COUNT 4.1 10^3/uL (4.0-10.0)
[2018-12-29 10:28] LABS: BLOOD UREA NITROGEN 20 MG/DL (7-18); CALCIUM LEVEL 8.2 MG/DL (8.8-10.2); CARBON DIOXIDE LEVEL 22 MEQ/L (21-32); CHLORIDE LEVEL 108 MEQ/L (98-107); GLOMERULAR FILTRATION RATE > 60.0 (>49); GLUCOSE, FASTING 108 MG/DL (70-100); POTASSIUM SERUM 4.4 MEQ/L (3.5-5.1); SODIUM LEVEL 140 MEQ/L (136-145)
--- NOTE | 2018-12-29 12:38 | IPNPDOC ---
Date Seen The patient was seen on 12/29/18. Progress Note SUBJECTIVE: no complaints or overnight events OBJECTIVE PHYSICAL EXAMINATION: VITAL SIGNS: Please see below. abdomen soft NT ND RLE swollen compared to left with erythema and open wound ASSESSMENT AND PLAN: PROBLEMS: #1. Cellulitis, swelling or extremity. IV Clinda #2. Infected wound, right calf, wound care consult. #3. Bilateral lower extremity DVT, Continue xarelto. #4. Chronic A. fib, normal rate On Xarelto. diltiazem #5. Hemorrhagic CVA, right-sided weakness. On antiplatelet and xarelto. #6 Neuropathy . On gabapentin, cymbalta #7 history of CABG with CAD Carvedilol. #8. Hyperlipidemia, Continue atorvastatin DISPOSITION: pending PT consult and clinical improvement of cellulitis VS, I&O, 24H, Fishbone Vital Signs/I&O Vital Signs Date Time Temp Pulse Resp B/P (MAP) Pulse Ox O2 Delivery O2 Flow Rate FiO2 12/29/18 09:00 82 96/62 12/29/18 07:15 18 12/29/18 06:00 97.9 94 12/27/18 20:00 2.0 I&O- Last 24 Hours up to 6 AM 12/29/18 06:00 Intake Total 2016 ml Output Total 1340 ml Balance 676 ml Laboratory Data 24H LABS Laboratory Tests 2 12/29/18 08:39: Immature Granulocyte % (Auto) 0.7, White Blood Count 4.1, Red Blood Count 3.82L, Hemoglobin 12.1L, Hematocrit 39.0L, Mean Corpuscular Volume 102.1H, Mean Corpuscular Hemoglobin 31.7, Mean Corpuscular Hemoglobin Concent 31.0L, Red Cell Distribution Width 13.4, Platelet Count 181, Neutrophils (%) (Auto) 59.4, Lymphocytes (%) (Auto) 21.9L, Monocytes (%) (Auto) 12.4H, Eosinophils (%) (Auto) 5.1H, Basophils (%) (Auto) 0.5, Neutrophils # (Auto) 2.4, Lymphocytes # (Auto) 0.9L, Monocytes # (Auto) 0.5, Eosinophils # (Auto) 0.2, Basophils # (Auto) 0.0, Nucleated Red Blood Cells % (auto) 0.0, Anion Gap 10, Glomerular Filtration Rate > 60.0, Blood Urea Nitrogen 20H, Creatinine 1.20, Sodium Level 140, Potassium Level 4.4, Chloride Level 108H, Carbon Dioxide Level 22, Calcium Level 8.2L CBC/BMP Laboratory Tests 12/29/18 08:39 Red Blood Count 3.82 L, Mean Corpuscular Volume 102.1 H, Mean Corpuscular Hemoglobin 31.7, Mean Corpuscular Hemoglobin Concent 31.0 L, Red Cell Distribution Width 13.4, Neutrophils (%) (Auto) 59.4, Lymphocytes (%) (Auto) 21.9 L, Monocytes (%) (Auto) 12.4 H, Eosinophils (%) (Auto) 5.1 H, Basophils (%) (Auto) 0.5, Neutrophils # (Auto) 2.4, Lymphocytes # (Auto) 0.9 L, Monocytes # (Auto) 0.5, Eosinophils # (Auto) 0.2, Basophils # (Auto) 0.0, Calcium Level 8.2 L Microbiology Microbiology 12/26/18 Blood Culture - Preliminary, Resulted No Growth after 48 hours. All Specime... 12/26/18 Blood Culture - Preliminary, Resulted No Growth after 48 hours. All Specime... 12/28/18 Gram Stain - Final, Resulted 12/28/18 Wound Culture, Resulted Pending 12/28/18 Gram Stain - Final, Resulted 12/28/18 Wound Culture, Resulted Pending JET KINCAID MD Dec 29, 2018 12:38
[2018-12-29] MEDS: RIVAROXABAN 20 MG TAB (XARELTO) PO SCH (18:05)
[2018-12-29] MEDS: QUEtiapine FUMARATE 25 MG TAB PO SCH (20:04)
[2018-12-29 22:00] VITALS: BP 123/78
[2018-12-30] MEDS: CLINDAMYCIN 600 MG in APPROPRIATE DILUENT 1 EA IV SCH ×3 (01:19→12:52)
[2018-12-30 06:00] VITALS: BP 120/81
[2018-12-30 08:24] LABS: BASO % 0.7 % (0.0-1.0); EOS # 0.2 10^3/uL (0.0-0.50); EOS % 4.4 % (0.0-3.0); HEMATOCRIT 36.3 % (42.0-52.0); LYMPH # 0.9 10^3/uL (1.5-4.5); LYMPH % 20.4 % (24.0-44.0); MEAN CORPUSCULAR HEMOGLOBIN 32.6 pg (27.0-33.0); MEAN CORPUSCULAR HGB CONC 33.1 g/dl (32.0-36.5); MEAN CORPUSCULAR VOLUME 98.6 fl (80.0-96.0); MONO # 0.4 10^3/uL (0.0-0.8); MONO % 8.7 % (0.0-5.0); NEUTROPHILS # 2.8 10^3/uL (1.8-7.7); NEUTROPHILS % 65.1 % (36.0-66.0); PLATELET COUNT, AUTOMATED 198 10^3/uL (150-450); RED BLOOD COUNT 3.68 10^6/uL (4.30-6.10); WHITE BLOOD COUNT 4.3 10^3/uL (4.0-10.0)
[2018-12-30 08:43] LABS: BLOOD UREA NITROGEN 19 MG/DL (7-18); CALCIUM LEVEL 8.3 MG/DL (8.8-10.2); CARBON DIOXIDE LEVEL 26 MEQ/L (21-32); CHLORIDE LEVEL 109 MEQ/L (98-107); CREATININE FOR GFR 1.19 MG/DL (0.70-1.30); GLOMERULAR FILTRATION RATE > 60.0 (>49); GLUCOSE, FASTING 108 MG/DL (70-100); POTASSIUM SERUM 3.8 MEQ/L (3.5-5.1); SODIUM LEVEL 140 MEQ/L (136-145)
[2018-12-30] MEDS: GABAPENTIN 300 MG CAP PO SCH ×3 (09:30→21:14)
[2018-12-30] MEDS: OMEPRAZOLE 20 MG CAP PO SCH (09:30)
[2018-12-30] MEDS: PRAMIPEXOLE 1 MG TAB PO SCH ×2 (09:30→21:14)
[2018-12-30] MEDS: DOCUSATE SODIUM 100 MG CAP PO SCH ×2 (09:30→21:14)
[2018-12-30] MEDS: CitaloPRAM (CeleXA) 20 MG TAB PO SCH (09:30)
[2018-12-30] MEDS: levETIRAcetam 250MG TABLET (KEPPRA) PO SCH ×2 (09:30→21:14)
[2018-12-30] MEDS: ATORVASTATIN 20 MG TAB PO SCH (09:30)
[2018-12-30] MEDS: DULoxetine 30 MG CAP (CYMBALTA) PO SCH ×2 (09:31→21:14)
--- NOTE | 2018-12-30 14:35 | IPNPDOC ---
Date Seen The patient was seen on 12/27/18. Progress Note SUBJECTIVE: Patient complained of right leg pain with movement, but otherwise non complaint, denied fever, chills, nausea and vomiting Objective vital signs and labs reviewed PHYSICAL EXAMINATION Gen: NAD, hx of right sided cva, has some dysathria HEENT: normocephalic, atraumatic, PERRLA , EOMI, neck supple CVS: RRR, normal S1n S2, no murmur, rubs, or gallops, b/l lower extremity edema R>L, no jvd Resp: LCTAB, no rhonchi, wheezes, or crackles Abd : soft, normal bowel sounds, no rebound tenderness or guarding MSK: +swelling, + erythema, and tenderness , reduced strength on the right LE and UE 3/5, left side 5/5 skin - right lower extremity swelling with areas of small wounds possible venous ulcers , looks infected , Neuro: awake and alert, no confusion Psych: normal mood and affect, Assessment and plan Cellulitis, swelling of lower extremities, right but greater than left - with areas of open wound/ulcers . Vancomycin IV and pharmacy protocol. added zosyn, but patient c/o blurry vision with zosyn use - so it was dc later and switched to clinda f/u wound culture Bilateral lower extremity DVT,- based on previous notes, haven't seen any test report Continue xarelto. Chronic A. fib, normal rate On Xarelto. diltiazem Hemorrhagic CVA, right-sided weakness.- chronic On antiplatelet and xarelto. Neuropathy . On gabapentin, cymbalta history of CABG with CAD Carvedilol. Hyperlipidemia, Continue atorvastatin VS, I&O, 24H, Mil[place] Vital Signs/I&O Vital Signs Date Time Temp Pulse Resp B/P (MAP) Pulse Ox O2 Delivery O2 Flow Rate FiO2 12/27/18 22:06 16 12/27/18 21:39 87 110/60 12/27/18 20:00 97.4 93 2.0 I&O- Last 24 Hours up to 6 AM 12/27/18 05:59 Intake Total 300 ml Output Total 350 ml Balance -50 ml Laboratory Data 24H LABS Laboratory Tests 2 12/26/18 23:14: Nucleated Red Blood Cells % (auto) 0.0, Prothrombin Time 13.9, Prothromb Time International Ratio 1.10, Anion Gap 7L, Glomerular Filtration Rate 54.5, Blood Urea Nitrogen 26H, Creatinine 1.38H, Sodium Level 139, Potassium Level 4.0, Chloride Level 104, Carbon Dioxide Level 28, Calcium Level 9.2, Aspartate Amino Transf (AST/SGOT) 19, Alanine Aminotransferase (ALT/SGPT) 15, Alkaline Phosphatase 57, Total Bilirubin 0.9, Total Protein 8.0, Albumin 3.6, Albumin/Globulin Ratio 0.82L, Procalcitonin 0.25 12/27/18 07:26: Nucleated Red Blood Cells % (auto) 0.0, Anion Gap 6L, Glomerular Filtration Rate 57.4, Blood Urea Nitrogen 24H, Creatinine 1.32H, Sodium Level 139, Potassium L evel 4.0, Chloride Level 105, Carbon Dioxide Level 28, Calcium Level 8.7L, Immature Granulocyte % (Auto) 0.7, White Blood Count 6.1, Red Blood Count 3.74L, Hemoglobin 11.8L, Hematocrit 36.9L, Mean Corpuscular Volume 98.7H, Mean Corpuscular Hemoglobin 31.6, Mean Corpuscular Hemoglobin Concent 32.0, Red Cell Distribution Width 13.8, Platelet Count 188, Neutrophils (%) (Auto) 58.9, Lymphocytes (%) (Auto) 19.7L, Monocytes (%) (Auto) 16.3H, Eosinophils (%) (Auto) 3.9H, Basophils (%) (Auto) 0.5, Neutrophils # (Auto) 3.6, Lymphocytes # (Auto) 1.2L, Monocytes # (Auto) 1.0H, Eosinophils # (Auto) 0.2, Basophils # (Auto) 0.0 12/27/18 17:20: Vancomycin Level Trough 21.3H CBC/BMP Laboratory Tests 12/26/18 23:14 Red Blood Count 3.99 L, Mean Corpuscular Volume 100.8 H, Mean Corpuscular Hemoglobin 32.1, Mean Corpuscular Hemoglobin Concent 31.8 L, Red Cell Distrib ution Width 13.7, Calcium Level 9.2, Aspartate Amino Transf (AST/SGOT) 19, Alanine Aminotransferase (ALT/SGPT) 15, Alkaline Phosphatase 57, Total Bilirubin 0.9, Total Protein 8.0, Albumin 3.6 12/27/18 07:26 Red Blood Count 3.74 L, Mean Corpuscular Volume 98.7 H, Mean Corpuscular Hemoglobin 31.6, Mean Corpuscular Hemoglobin Concent 32.0, Red Cell Distribution Width 13.8, Calcium Level 8.7 L, Neutrophils (%) (Auto) 58.9, Lymphocytes (%) (Auto) 19.7 L, Monocytes (%) (Auto) 16.3 H, Eosinophils (%) (Auto) 3.9 H, Basophils (%) (Auto) 0.5, Neutrophils # (Auto) 3.6, Lymphocytes # (Auto) 1.2 L, Monocytes # (Auto) 1.0 H, Eosinophils # (Auto) 0.2, Basophils # (Auto) 0.0 Microbiology Microbiology 12/26/18 Blood Culture, Received Pending 12/26/18 Blood Culture, Received Pending TRENT CASTAÑEDA MD Dec 27, 2018 22:50
--- NOTE | 2018-12-30 16:57 | IPNPDOC ---
Date Seen The patient was seen on 12/30/18. Progress Note SUBJECTIVE: no complaints SUBJECTIVE: no complaints or overnight events does not want rehab, wants to return home OBJECTIVE PHYSICAL EXAMINATION: VITAL SIGNS: Please see below. abdomen soft NT ND R hemiparesis RLE swollen compared to left with trace erythema and open wound labs reviewed ASSESSMENT AND PLAN: PROBLEMS: #Cellulitis #Wound #hx of bl DVT #Hx of CVA w RHP #Afib - discontinuing abx as no longer appears infected - wound care - xarelto - cardizem - coreg - statin - gabapentin, cymbalta for neuropathic pain VS, I&O, 24H, Fishbone Vital Signs/I&O Vital Signs Date Time Temp Pulse Resp B/P (MAP) Pulse Ox O2 Delivery O2 Flow Rate FiO2 12/30/18 10:35 82 95/59 12/30/18 06:00 98.0 17 98 12/29/18 15:42 2.0 I&O- Last 24 Hours up to 6 AM 12/30/18 05:59 Intake Total 2710 ml Output Total 1500 ml Balance 1210 ml Laboratory Data 24H LABS Laboratory Tests 2 12/30/18 08:11: Immature Granulocyte % (Auto) 0.7, White Blood Count 4.3, Red Blood Count 3.68L, Hemoglobin 12.0L, Hematocrit 36.3L, Mean Corpuscular Volume 98.6H, Mean Corpuscular Hemoglobin 32.6, Mean Corpuscular Hemoglobin Concent 33.1, Red Cell Distribution Width 13.5, Platelet Count 198, Neutrophils (%) (Auto) 65.1, Lymphocytes (%) (Auto) 20.4L, Monocytes (%) (Auto) 8.7H, Eosinophils (%) (Auto) 4.4H, Basophils (%) (Auto) 0.7, Neutrophils # (Auto) 2.8, Lymphocytes # (Auto) 0.9L, Monocytes # (Auto) 0.4, Eosinophils # (Auto) 0.2, Basophils # (Auto) 0.0, Nucleated Red Blood Cells % (auto) 0.0, Anion Gap 5L, Glomerular Filtration Rate > 60.0, Blood Urea Nitrogen 19H, Creatinine 1.19, Sodium Level 140, Potassium Level 3.8, Chloride Level 109H, Carbon Dioxide Level 26, Calcium Level 8.3L CBC/BMP Laboratory Tests 12/30/18 08:11 Red Blood Count 3.68 L, Mean Corpuscular Volume 98.6 H, Mean Corpuscular Hemoglobin 32.6, Mean Corpuscular Hemoglobin Concent 33.1, Red Cell Distribution Width 13.5, Neutrophils (%) (Auto) 65.1, Lymphocytes (%) (Auto) 20.4 L, Monocytes (%) (Auto) 8.7 H, Eosinophils (%) (Auto) 4.4 H, Basophils (%) (Auto) 0.7, Neutrophils # (Auto) 2.8, Lymphocytes # (Auto) 0.9 L, Monocytes # (Auto) 0.4, Eosinophils # (Auto) 0.2, Basophils # (Auto) 0.0, Calcium Level 8.3 L Microbiology Microbiology 12/26/18 Blood Culture - Preliminary, Resulted No Growth after 72 hours. All specime... 12/26/18 Blood Culture - Preliminary, Resulted No Growth after 72 hours. All specime... 12/28/18 Gram Stain - Final, Resulted 12/28/18 Wound Culture - Preliminary, Resulted Acinetobacter Baumannii Comple 12/28/18 Gram Stain - Final, Complete 12/28/18 Wound Culture - Final, Complete Serratia Marcescens JET KINCAID MD Dec 30, 2018 16:56
[2018-12-30] MEDS: RIVAROXABAN 20 MG TAB (XARELTO) PO SCH (17:28)
[2018-12-30] MEDS: QUEtiapine FUMARATE 25 MG TAB PO SCH (21:14)
[2018-12-30 22:00] VITALS: BP 122/80
[2018-12-31] MEDS: levETIRAcetam 250MG TABLET (KEPPRA) PO SCH ×2 (09:05→21:09)
[2018-12-31] MEDS: DOCUSATE SODIUM 100 MG CAP PO SCH ×2 (09:05→21:09)
[2018-12-31] MEDS: GABAPENTIN 300 MG CAP PO SCH ×3 (09:05→21:08)
[2018-12-31] MEDS: ATORVASTATIN 20 MG TAB PO SCH (09:05)
[2018-12-31] MEDS: PRAMIPEXOLE 1 MG TAB PO SCH ×2 (09:06→21:09)
[2018-12-31] MEDS: CitaloPRAM (CeleXA) 20 MG TAB PO SCH (09:06)
[2018-12-31] MEDS: DULoxetine 30 MG CAP (CYMBALTA) PO SCH ×2 (09:06→21:08)
[2018-12-31] MEDS: OMEPRAZOLE 20 MG CAP PO SCH (09:06)
[2018-12-31 09:14] LABS: BASO % 0.8 % (0.0-1.0); EOS # 0.2 10^3/uL (0.0-0.50); EOS % 4.6 % (0.0-3.0); HEMATOCRIT 37.6 % (42.0-52.0); HEMOGLOBIN 12.1 g/dl (13.5-17.5); LYMPH # 1.1 10^3/uL (1.5-4.5); LYMPH % 20.9 % (24.0-44.0); MEAN CORPUSCULAR HGB CONC 32.2 g/dl (32.0-36.5); MEAN CORPUSCULAR VOLUME 99.5 fl (80.0-96.0); MONO # 0.5 10^3/uL (0.0-0.8); MONO % 9.5 % (0.0-5.0); NEUTROPHILS # 3.4 10^3/uL (1.8-7.7); NEUTROPHILS % 63.6 % (36.0-66.0); PLATELET COUNT, AUTOMATED 224 10^3/uL (150-450); RED BLOOD COUNT 3.78 10^6/uL (4.30-6.10); WHITE BLOOD COUNT 5.3 10^3/uL (4.0-10.0)
[2018-12-31 09:26] LABS: BLOOD UREA NITROGEN 15 MG/DL (7-18); CALCIUM LEVEL 8.4 MG/DL (8.8-10.2); CARBON DIOXIDE LEVEL 24 MEQ/L (21-32); CHLORIDE LEVEL 111 MEQ/L (98-107); CREATININE FOR GFR 1.17 MG/DL (0.70-1.30); GLOMERULAR FILTRATION RATE > 60.0 (>49); GLUCOSE, FASTING 97 MG/DL (70-100); POTASSIUM SERUM 4.2 MEQ/L (3.5-5.1); SODIUM LEVEL 142 MEQ/L (136-145)
[2018-12-31] MEDS: RIVAROXABAN 20 MG TAB (XARELTO) PO SCH ×2 (17:57→21:21)
--- NOTE | 2018-12-31 19:42 | IPNPDOC ---
Date Seen The patient was seen on 12/31/18. Progress Note SUBJECTIVE: no complaints or overnight events does not want rehab, wants to return home OBJECTIVE PHYSICAL EXAMINATION: VITAL SIGNS: Please see below. abdomen soft NT ND R hemiparesis RLE swollen compared to left with trace erythema and open wound labs reviewed ASSESSMENT AND PLAN: PROBLEMS: #Cellulitis #Wound #hx of bl DVT #Hx of CVA w RHP #Afib - completed course of abx, i dont think wound is currently infected and abx appear to be colonizers - wound care consult - xarelto - cardizem - coreg - statin - gabapentin, cymbalta for neuropathic pain - pt not safe for home alone, pt being screened for acute rehab VS, I&O, 24H, Fishbone Vital Signs/I&O Vital Signs Date Time Temp Pulse Resp B/P (MAP) Pulse Ox O2 Delivery O2 Flow Rate FiO2 12/31/18 16:00 70 76/86 12/31/18 06:00 97.5 15 99 12/29/18 15:42 2.0 I&O- Last 24 Hours up to 6 AM 12/31/18 06:00 Intake Total 750 ml Output Total 1300 ml Balance -550 ml Laboratory Data 24H LABS Laboratory Tests 2 12/31/18 08:46: Immature Granulocyte % (Auto) 0.6, White Blood Count 5.3, Red Blood Count 3.78L, Hemoglobin 12.1L, Hematocrit 37.6L, Mean Corpuscular Volume 99.5H, Mean Corpuscular Hemoglobin 32.0, Mean Corpuscular Hemoglobin Concent 32.2, Red Cell Distribution Width 13.7, Platelet Count 224, Neutrophils (%) (Auto) 63.6, Lymphocytes (%) (Auto) 20.9L, Monocytes (%) (Auto) 9.5H, Eosinophils (%) (Auto) 4.6H, Basophils (%) (Auto) 0.8, Neutrophils # (Auto) 3.4, Lymphocytes # (Auto) 1.1L, Monocytes # (Auto) 0.5, Eosinophils # (Auto) 0.2, Basophils # (Auto) 0.0, Nucleated Red Blood Cells % (auto) 0.0, Anion Gap 7L, Glomerular Filtration Rate > 60.0, Blood Urea Nitrogen 15, Creatinine 1.17, Sodium Level 142, Potassium Level 4.2, Chloride Level 111H, Carbon Dioxide Level 24, Calcium Level 8.4L CBC/BMP Laboratory Tests 12/31/18 08:46 Red Blood Count 3.78 L, Mean Corpuscular Volume 99.5 H, Mean Corpuscular Hemoglobin 32.0, Mean Corpuscular Hemoglobin Concent 32.2, Red Cell Distribution Width 13.7, Neutrophils (%) (Auto) 63.6, Lymphocytes (%) (Auto) 20.9 L, Monocytes (%) (Auto) 9.5 H, Eosinophils (%) (Auto) 4.6 H, Basophils (%) (Auto) 0.8, Neutrophils # (Auto) 3.4, Lymphocytes # (Auto) 1.1 L, Monocytes # (Auto) 0.5, Eosinophils # (Auto) 0.2, Basophils # (Auto) 0.0, Calcium Level 8.4 L Microbiology Microbiology 12/26/18 Blood Culture - Preliminary, Resulted No Growth after 72 hours. All specime... 12/26/18 Blood Culture - Preliminary, Resulted No Growth after 72 hours. All specime... 12/28/18 Gram Stain - Final, Complete 12/28/18 Wound Culture - Final, Complete Acinetobacter Baumannii Comple Staphylococcus Sp Coag Neg 12/28/18 Gram Stain - Final, Complete 12/28/18 Wound Culture - Final, Complete Serratia Marcescens JET KINCAID MD Dec 31, 2018 19:42
[2018-12-31] MEDS: QUEtiapine FUMARATE 25 MG TAB PO SCH (21:08)
[2018-12-31 22:00] VITALS: BP 119/68
[2019-01-01 06:00] VITALS: BP 104/68
[2019-01-01] MEDS: GABAPENTIN 300 MG CAP PO SCH ×3 (08:38→20:17)
[2019-01-01] MEDS: levETIRAcetam 250MG TABLET (KEPPRA) PO SCH ×2 (08:38→20:16)
[2019-01-01] MEDS: CitaloPRAM (CeleXA) 20 MG TAB PO SCH (08:38)
[2019-01-01] MEDS: ATORVASTATIN 20 MG TAB PO SCH (08:38)
[2019-01-01] MEDS: PRAMIPEXOLE 1 MG TAB PO SCH ×2 (08:38→20:16)
[2019-01-01] MEDS: DOCUSATE SODIUM 100 MG CAP PO SCH ×2 (08:38→20:16)
[2019-01-01] MEDS: OMEPRAZOLE 20 MG CAP PO SCH (08:38)
[2019-01-01] MEDS: DULoxetine 30 MG CAP (CYMBALTA) PO SCH ×2 (08:38→20:16)
--- NOTE | 2019-01-01 11:34 | IPN ---
DATE OF SERVICE: 01/01/2019 The patient is nonverbal. Usually writes his responses at the bedside. He denies any pain at the moment per nursing. We are trying to arrange rehabilitation for him and then home with services. He is not happy about this discharge plan, but understands it is necessary. Afebrile overnight. T-max of 97.7. Pulse 79. Respiratory rate 18. Blood pressure 104/68. 95% on room air. Generally, the patient is awake, alert and oriented to his name. The patient is nonverbal. Lungs are clear to auscultation. No wheezing, rales or rhonchi. Heart: S1 and S2, irregularly irregular. Abdomen is soft, nontender and nondistended. Positive bowel sounds times four quadrants. Extremities: Right lower extremity 3+ edema, left lower extremity trace edema. Open wounds on the medial and lateral aspects of the right lower extremity. Right hemiparesis. 12/31/2018 CBC and metabolic panel have been reviewed. Microbiology: Right leg culture Acinetobacter, coag negative Staph and Serratia. 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 Cultures grew out Serratia, coag negative Staph and Acinetobacter. IMPRESSION: 1. Right lower extremity cellulitis with chronic venous ulcers status post completion of antibiotics of vancomycin and Zosyn and then changed over to clindamycin. 2. Bilateral lower extremity deep vein thrombosis. On chronic Xarelto. 3. Atrial fibrillation. Rate is controlled on diltiazem. Continued on Xarelto for anticoagulation. 4. History of CVA with right sided hemiparesis of left MCA. 5. Currently rate controlled atrial fibrillation with Cardizem and anticoagulated with Xarelto 20 mg daily. 6. Depression. On Celexa. 7. Dyslipidemia. On Lipitor. 8. Depression. On Cymbalta. 9. Reflux disease. On Prilosec. DISPOSITION: Awaiting rehabilitation placement.
[2019-01-01 12:36] LABS: BLOOD UREA NITROGEN 16 MG/DL (7-18); CALCIUM LEVEL 8.4 MG/DL (8.8-10.2); CARBON DIOXIDE LEVEL 18 MEQ/L (21-32); CHLORIDE LEVEL 110 MEQ/L (98-107); CREATININE FOR GFR 1.13 MG/DL (0.70-1.30); GLOMERULAR FILTRATION RATE > 60.0 (>49); GLUCOSE, FASTING 96 MG/DL (70-100); POTASSIUM SERUM 5.3 MEQ/L (3.5-5.1); SODIUM LEVEL 135 MEQ/L (136-145)
[2019-01-01 14:00] VITALS: BP 117/69
[2019-01-01] MEDS: RIVAROXABAN 20 MG TAB (XARELTO) PO SCH (16:06)
[2019-01-01] MEDS: QUEtiapine FUMARATE 25 MG TAB PO SCH (20:16)
[2019-01-01 22:00] VITALS: BP 114/68
[2019-01-02 06:00] VITALS: BP 104/73
[2019-01-02 08:22] LABS: BASO % 0.8 % (0.0-1.0); EOS # 0.2 10^3/uL (0.0-0.50); EOS % 4.8 % (0.0-3.0); HEMATOCRIT 41.5 % (42.0-52.0); HEMOGLOBIN 13.5 g/dl (13.5-17.5); LYMPH # 1.2 10^3/uL (1.5-4.5); LYMPH % 24.6 % (24.0-44.0); MEAN CORPUSCULAR HEMOGLOBIN 32.1 pg (27.0-33.0); MEAN CORPUSCULAR HGB CONC 32.5 g/dl (32.0-36.5); MEAN CORPUSCULAR VOLUME 98.8 fl (80.0-96.0); MONO # 0.4 10^3/uL (0.0-0.8); MONO % 7.2 % (0.0-5.0); NEUTROPHILS # 3.1 10^3/uL (1.8-7.7); NEUTROPHILS % 61.6 % (36.0-66.0); PLATELET COUNT, AUTOMATED 257 10^3/uL (150-450)
[2019-01-02 08:56] LABS: ERYTHROCYTE SEDIMENTATION RATE 45 mm/hr (0-20)
[2019-01-02] MEDS: OMEPRAZOLE 20 MG CAP PO SCH ×2 (09:00→09:20)
[2019-01-02] MEDS: levETIRAcetam 250MG TABLET (KEPPRA) PO SCH ×3 (09:00→20:56)
[2019-01-02] MEDS: ATORVASTATIN 20 MG TAB PO SCH ×2 (09:00→09:20)
[2019-01-02] MEDS: DOCUSATE SODIUM 100 MG CAP PO SCH ×3 (09:00→20:56)
[2019-01-02] MEDS: PRAMIPEXOLE 1 MG TAB PO SCH ×3 (09:00→20:55)
[2019-01-02] MEDS: CitaloPRAM (CeleXA) 20 MG TAB PO SCH ×2 (09:00→09:20)
[2019-01-02] MEDS: DULoxetine 30 MG CAP (CYMBALTA) PO SCH ×3 (09:00→20:55)
[2019-01-02] MEDS: GABAPENTIN 300 MG CAP PO SCH ×4 (09:00→20:55)
[2019-01-02 09:21] LABS: BLOOD UREA NITROGEN 14 MG/DL (7-18); C REACTIVE PROTEIN QUANTITATIV 0.84 MG/DL (0.00-0.30); CALCIUM LEVEL 8.9 MG/DL (8.8-10.2); CARBON DIOXIDE LEVEL 23 MEQ/L (21-32); CHLORIDE LEVEL 109 MEQ/L (98-107); CREATININE FOR GFR 1.19 MG/DL (0.70-1.30); GLOMERULAR FILTRATION RATE > 60.0 (>49); GLUCOSE, FASTING 110 MG/DL (70-100); POTASSIUM SERUM 4.2 MEQ/L (3.5-5.1); SODIUM LEVEL 139 MEQ/L (136-145)
[2019-01-02 14:00] VITALS: BP 129/79
[2019-01-02] MEDS: RIVAROXABAN 20 MG TAB (XARELTO) PO SCH (17:22)
[2019-01-02 20:55] VITALS: BP 104/59
[2019-01-02] MEDS: QUEtiapine FUMARATE 25 MG TAB PO SCH (20:55)
[2019-01-02 22:00] VITALS: BP 104/59
[2019-01-03 06:00] VITALS: BP 106/59
[2019-01-03] MEDS: DULoxetine 30 MG CAP (CYMBALTA) PO SCH (07:12)
[2019-01-03] MEDS: GABAPENTIN 300 MG CAP PO SCH (07:12)
[2019-01-03] MEDS: DOCUSATE SODIUM 100 MG CAP PO SCH (07:12)
[2019-01-03] MEDS: ATORVASTATIN 20 MG TAB PO SCH (07:12)
[2019-01-03] MEDS: PRAMIPEXOLE 1 MG TAB PO SCH (07:12)
[2019-01-03] MEDS: levETIRAcetam 250MG TABLET (KEPPRA) PO SCH (07:12)
[2019-01-03] MEDS: OMEPRAZOLE 20 MG CAP PO SCH (07:12)
[2019-01-03] MEDS: CitaloPRAM (CeleXA) 20 MG TAB PO SCH (07:12)
--- NOTE | 2019-01-03 11:36 | IPN ---
DATE: 01/02/2019 Patient seen and examined at the bedside. Chart has been reviewed. The patient is requesting to be discharged home and says no to rehabilitation. He attempted to get up on his own today and was able to use his walker, take seven steps around without falling. He initially refused physical therapy, but we had requested reevaluation and found that the patient was safe for discharge home with services. He was able to go from the bed to the chair and turn with his rolling walker. He usually uses a wheelchair at home and he now is able to stand and pivot safely. It was felt that he was safe for discharge with services and to continue with home physical therapy as he has refused rehabilitation. Overnight, patient had no issues. He remained afebrile. He denied any pain. VITAL SIGNS: Temperature 97.1, pulse 86, respiratory rate 16, blood pressure 129/79, 97% on room air. Generally, patient has difficulty with expressive aphagia. He is able to say yes or no and home, unable to speak in full sentences. He usually grunts and throws his wheelchair when he is upset. Right now he is awake, alert and oriented to his name. He is following coammands. He had facial asymmetry, expressive aphagia. No jugular venous distention (JVD) or thyromegaly. No cervical lymphadenopathy. Lungs are clear to auscultation. There is no wheezing, rales or any rhonchi. Heart S1 and S2, irregularly irregular. Abdomen is soft, nontender and nondistended. Positive bowel sounds times four quadrants. Extremities he has a chronic right hemiparesis and medial contracture of the right hand. There is flaccidity and decrease in tone on the right upper extremity. He is slow to pivot and stand up. He does have chronic right lower extremity 3+ edema and left lower extremity trace edema. He has open wounds both in the medial and lateral aspects of the right lower extremity. LABORATORY DATA: Microbiology have all been reviewed. Notable for CRP 0.84. Microbiology shows coag negative Staphylococcus, Acinetobacter, and Serratia marcescens on 12/28/2018. ASSESSMENT/PLAN: This is a 68-year-old male who lives alone with caregivers five days a week. Family will be flying into the area in a months time. History of chronic atrial fibrillation, hemorrhagic CVA with left MCA and right hemiparesis, dyslipidemia, hypertension, expressive aphasia, DVT bilateral lower extremities on Xarelto, seizures, GI bleed, presented with right lower extremity cellulitis, completed four course of antibiotics, with cultures growing out serratia, coag negative Staph and Acinetobacter. CURRENT ISSUES: 1. Right lower extremity with chronic venous ulcers status post antibiotics of vancomycin and Zosyn then changed over to clindamycin. Currently does not appear infected. He has had no fever. White count is normal. Wound is not weeping and there is no abscess formation. Chronic dressing changes are done by nursing. 2. Bilateral lower extremity deep vein thrombosis. On chronic Xarelto. 3. Atrial fibrillation. Rate is controlled on diltiazem. On Xarelto for anticoagulation. 4. History of hemorrhagic CVA with right sided hemiparesis of left MCA. Currently has no overt bleeding. 5. History of seizure disorder on antiseizure medications. 6. Depression, on Celexa. 7. Dyslipidemia, on Lipitor. 8. Depression, on Cymbalta. 9. Reflux disease, on Prilosec. 10. Deconditioning. Currently has passed a home safety evaluation with recommendations for home with home services and home physical therapy. Will discharge the patient in the morning with outpatient services.
--- NOTE | 2019-01-05 18:43 | DSES ---
DATE OF ADMISSION: 12/26/2018 DATE OF DISCHARGE: 01/03/2019 DISCHARGE DIAGNOSES: Right lower extremity cellulitis. Chronic venous ulcers. Bilateral lower extremity deep vein thrombosis (DVT). Atrial fibrillation. History of hemorrhagic CVA with chronic right-sided hemiparesis. History of seizure disorder. Depression. Dyslipidemia. Reflux. DISCHARGE MEDICATIONS: - atorvastatin 40 mg daily - buspirone 5 mg three times a day as needed - citalopram 20 mg daily - diltiazem 30 mg three times a day - duloxetine 30 mg twice a day - gabapentin 300 mg three times a day - hydrocodone-acetaminophen one tablet every 8 hours as needed - levetiracetam 750 mg twice a day - omeprazole 20 mg daily - pramipexole 1 mg twice a day - quetiapine 25 mg nightly - Xarelto 20 mg daily DISCHARGE INSTRUCTIONS: Followup with primary care physician within 5 days of hospital discharge, home services and home physical therapy. HOSPITAL COURSE: This is a 68-year-old male who lives alone with caregivers 5 days a week with a past medical history significant for chronic atrial fibrillation, hemorrhagic CVA in the left middle cerebral artery (MCA) distribution with chronic right-sided hemiparesis, dyslipidemia, hypertension, expressive aphasia, bilateral lower extremity DVT, on chronic Xarelto, seizures and gastrointestinal (GI) bleed, presented with right lower extremity cellulitis. He completed a full course of antibiotics, cultures growing out Serratia, coagulation negative Staphylococcus (staph) and Acinetobacter. Patient was evaluated by physical therapy and was very deconditioned, which prolonged his hospital stay. The patient completed a full course of vancomycin and Zosyn, then changed over to clindamycin. He did not have any recurrent fevers, white count was normal, wound was not weeping and no abscess formation. Chronic daily changes were done by nursing. Patient was continued at his home dose of Xarelto for his chronic DVT, rate control with diltiazem for his atrial fibrillation, and continued on Celexa for his depression and antiseizure medication for his seizure disorder, and Prilosec for his reflux. Patient passed home safety evaluation on 01/03/2019 and was then subsequently discharged home with services with home physical therapy. LABS ON DISCHARGE: White count 5, hemoglobin 13, hematocrit 41, platelet count 257. Sodium 139, potassium 4.2, chloride 109, bicarbonate 23, BUN 14, creatinine 1.19, glucose of 110. TIME SPENT ON DISCHARGE: 32 minutes.
== END 2019-01-03 10:37 | DRG 593 ==
LOC: M MSPAV 20:18 → OBSVTOIN 20:22
PROVIDERS: ADMIT Family Medicine; ATTEND General Practice
DX: L97.919 Non-pressure chronic ulcer of unspecified part of right lower leg with unspecified severity (principal); L03.115 Cellulitis of right lower limb; I82.403 Acute embolism and thrombosis of unspecified deep veins of lower extremity, bilateral; I69.251 Hemiplegia and hemiparesis following other nontraumatic intracranial hemorrhage affecting right dominant side; I69.351 Hemiplegia and hemiparesis following cerebral infarction affecting right dominant side; I48.2 Chronic atrial fibrillation; E78.5 Hyperlipidemia, unspecified; K21.9 Gastro-esophageal reflux disease without esophagitis; G40.909 Epilepsy, unspecified, not intractable, without status epilepticus; F32.9 Major depressive disorder, single episode, unspecified; Z79.899 Other long term (current) drug therapy; I69.320 Aphasia following cerebral infarction; Z79.01 Long term (current) use of 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s; I25.10 Atherosclerotic heart disease of native coronary artery without angina pectoris; Z95.1 Presence of aortocoronary bypass graft; G47.00 Insomnia, unspecified; F41.9 Anxiety disorder, unspecified; I10 Essential (primary) hypertension; G62.9 Polyneuropathy, unspecified; I87.2 Venous insufficiency (chronic) (peripheral)

== ENCOUNTER → 2019-03-15 | Outpatient (REF) | payer MEDICARE ==
[~2019-03-15] MED LIST changes: +ATOR40TA75 PO; +BUSP5TAB81 PO; +CITA20TA6 PO; +DILT30TA PO; +DULO30CA9 PO; +FURO20TA2 PO; +GABA-843 PO; +HYDR-3713 PO; +LEVE750T5 PO; +OMEP-218 PO; +PATIENT COMMENTS; +PRAM1TAB7 PO; +QUET1TAB7 PO; +XARE20TA PO
[2019-03-15 18:56] LABS: BASO # 0.1 10^3/uL (0.0-0.2); BASO % 0.9 % (0.0-1.0); EOS # 0.2 10^3/uL (0.0-0.5); EOS % 3.8 % (0.0-3.0); HEMATOCRIT 43.2 % (42.0-52.0); HEMOGLOBIN 13.7 g/dl (13.5-17.5); LYMPH # 1.6 10^3/uL (1.5-5.0); MEAN CORPUSCULAR HGB CONC 31.7 g/dl (32.0-36.5); MEAN CORPUSCULAR VOLUME 100.9 fl (80.0-96.0); MONO # 0.7 10^3/uL (0.0-0.8); MONO % 12.5 % (0.0-5.0); NEUTROPHILS % 53.4 % (36.0-66.0); PLATELET COUNT, AUTOMATED 170 10^3/uL (150-450); RED BLOOD COUNT 4.28 10^6/uL (4.30-6.10); WHITE BLOOD COUNT 5.6 10^3/uL (4.0-10.0)
[2019-03-15 19:02] LABS: ALBUMIN 3.9 GM/DL (3.2-5.2); ALT/SGPT 15 U/L (12-78); BILIRUBIN,TOTAL 0.6 MG/DL (0.2-1.0); BLOOD UREA NITROGEN 21 MG/DL (7-18); CARBON DIOXIDE LEVEL 29 MEQ/L (21-32); CHLORIDE LEVEL 107 MEQ/L (98-107); CHOLESTEROL LEVEL 188 MG/DL (<200); CHOLESTEROL RISK RATIO 4.177 (<5); CREATININE FOR GFR 1.15 MG/DL (0.70-1.30); GLOMERULAR FILTRATION RATE > 60.0 (>49); GLUCOSE, FASTING 89 MG/DL (70-100); HDL CHOLESTEROL 45 MG/DL (>40); LDL CHOLESTEROL 116 MG/DL (<100); NON-HDL-C 143 MG/DL; POTASSIUM SERUM 4.5 MEQ/L (3.5-5.1); SODIUM LEVEL 139 MEQ/L (136-145); TOTAL PROTEIN 7.8 GM/DL (6.4-8.2); TRIGLYCERIDES LEVEL 134 MG/DL (<150)
== END ==
LOC: M SFHCCLAY 11:52
PROVIDERS: ATTEND Family Medicine
DX: I10 Essential (primary) hypertension (principal); E78.5 Hyperlipidemia, unspecified
CPT/HCPCS: 80053; 80061; 85025; G0463

== ENCOUNTER → 2019-07-10 | Outpatient (CLI) | payer MEDICARE ==
[~2019-07-10] MED LIST changes: +ISOVUE-300 61% 50ML VIAL (Q9967) As Ordered ONE; +LIDOCAINE 1% MDV 20ML VIAL As Ordered ONE; +MIDAZOLAM INJ 2 MG/2 ML VIAL (J2250) As Ordered ONE; -TRAZ-163 PO; +TRAZ-257 PO; +diphenhydrAMINE INJ 50MG/ML VIAL (J1200) As Ordered ONE; +fentaNYL 100 MCG/2 ML INJECTION (J3010) As Ordered ONE
[2019-07-10 11:34] VITALS: BP 112/72
--- NOTE | 2019-07-10 11:43 | IRPN ---
[facility] IR Progress Note IR Progress Note DATE: Jul 10, 2019 Patient transferred for IVC filter placement. Manager Of Health radiograph obtained demonstrates there is already an IVC filter in place. Please transfer patient back to [facility]. Thank you for this referral Allergies Coded Allergies: No Known Allergies (Unverified , 10/26/16) VS,Fishbone, I+O VS, Fishbone, I+O Vital Signs Date Time Temp Pulse Resp B/P (MAP) Pulse Ox O2 Delivery O2 Flow Rate FiO2 07/10/19 11:34 93 18 99 Nasal Cannula 2 07/10/19 10:50 97.6 MADHURI HERNANDEZ MD Jul 10, 2019 11:43
--- NOTE | 2019-07-11 14:52 | REP ---
Indication: Lower extremity deep vein thrombosis. Pulmonary emboli. Shortness of breath. Patient transferred from the [facility] for inferior vena cava filter placement. A commissary officer radiograph was obtained and this demonstrates an IVC filter already in expected location. Impression: Patient already has an IVC filter. No further intervention was performed. Thank you this referral Electronically Signed by Torie Zamorano MD 07/11/2019 02:50 P
== END ==
LOC: M IRPRO 10:40
PROVIDERS: ATTEND Internal Medicine Cardiovascular Disease
DX: Z45.89 Encounter for adjustment and management of other implanted devices (principal); Z95.828 Presence of other vascular implants and grafts; I82.409 Acute embolism and thrombosis of unspecified deep veins of unspecified lower extremity; I26.99 Other pulmonary embolism without acute cor pulmonale
CPT/HCPCS: 37191; C1769; C1894; J1644; J2250; J3010; Q9967

== ENCOUNTER 2020-07-20 10:30 | Observation (INO) | payer MEDICARE ==
[~2020-07-20] VITALS: Ht 177.8 cm; Wt 91.5 kg
[~2020-07-20 10:30] MED LIST changes: +CYAN500T14 PO; -CYAN500T8 PO; +GABA-282 PO; -GABA-843 PO; -ISOVUE-300 61% 50ML VIAL (Q9967) As Ordered ONE; -LIDOCAINE 1% MDV 20ML VIAL As Ordered ONE; -MIDAZOLAM INJ 2 MG/2 ML VIAL (J2250) As Ordered ONE; -QUET1TAB7 PO; +QUET25TA3 PO; -diphenhydrAMINE INJ 50MG/ML VIAL (J1200) As Ordered ONE; -fentaNYL 100 MCG/2 ML INJECTION (J3010) As Ordered ONE
--- OUTSIDE RECORDS SUMMARY | 2020-07-20 11:13 | CCD ---
Author Author [facility] Organization [facility] Address [address] [place] [address] Phone Care Team Providers Care Technical Administrator Name Role Phone Isaura CARDOZA, Kami Stoll Unavailable [phone] Reason for Referral No Reason for Referral Recorded Problems Includes: Active, inactive, and resolved ProblemsNo Problems Recorded Plan of Treatment Pending Tests Order Diagnosis Results Due Ordering Provi dmitry Therapy - Physical Therapy Bilateral Legs 03/31/20 Kami Radford MD *Labs (Manual) KEPPRA LEVEL Other seizures 04/13/20 Kami north MD *Labs (Manual) LIPID HCC-Cerebral infarction, unspecified Kami Radford MD *Labs (Manual) FREE T3 Atrial Fibrillation Unspecified 0 Kami Radford MD *Labs (Manual) FREE T4 Atrial Fibrillation Unspecified 0 Kami Radford MD *Labs (Manual) TSH Atrial Fibrillation Unspecified 0 Kami Radford MD *Labs (Manual) CBC 04/13/20 Kami glaser MD *Labs (Manual) CMP 04/13/20 Kami glaser MD *Labs (Manual) KEPPRA LEVEL Other seizures 05/12/20 Kami north MD *Labs (Manual) proBNP HCC-Unspecified systolic (conges tive) heart failure 05/12/20 Kami Radford MD *Labs (Manual) TSH Atrial Fibrillation Unspecified 0 Kami Radford MD *Labs (Manual) FREE T3 Atrial Fibrillation Unspecified 0 Kami Radford MD *Labs (Manual) FREE T4 Atrial Fibrillation Unspecified 0 Kami Radford MD *Labs (Manual) PT/INR Atrial Fibrillation Unspecified 0 Kami Radford MD *Labs (Manual) PTT Atrial Fibrillation Unspecified 0 Kami Radford MD *Labs (Manual) MICROALBUMIN HCC-Chronic kidney disease, stage 3a Kami Radford MD *Labs (Manual) CBC HCC-Chronic kidney disease, stage 3a Kami Radford MD *Labs (Manual) CK Mixed hyperlipidemia 05/12/20 Cameron Radford MD *Labs (Manual) LIPID Mixed hyperlipidemia 05/12/20 Cameron Radford MD *Labs (Manual) PSA Encounter for screening for erna gnant neoplasm of prostate 05/12/20 Kami Radford MD X-RAY Chest X-Ray HCC-Unspecified systolic (congestive) hea rt failure 05/12/20 Kami Radford MD *Labs (Manual) CULTURE & SENSITIVITY Cellulitis of other sites 04/29 08/15 Kami Radford MD Future Appointments Date Time Location Provider EXTENDED VISIT 06/04/2020 1:30PM [facility] MD Findings Encounter Date Ordered follow-up visit 1 MO EXTENDED VISIT with Kami Radford MD 04/28/2020 Assessments Includes: Assessments for all patient encounters Findings Encounter Date Cellulitis STANDARD OV with Kami Radford MD 04/28 Cellulitis EXTENDED VISIT with Kami Radford MD 1 07/07/2019 Persistent insomnia EXTENDED VISIT with Kami Radford MD 1 07/07/2019 Chronic atrial fibrillation EXTENDED VISIT with Kami abbott MD 04/28/2020 Chronic pain EXTENDED VISIT with Kami Radford MD 1 06/29/2019 Late effects of cerebral infarction: aphasia EXTENDED VISIT with Kami Radford MD 04/28/2020 Chronic atrial fibrillation EXTENDED VISIT with Kami abbott MD 03/30/2020 Chronic kidney disease, stage 3 59.5 ML/MIN EXTENDED VISIT with Kami Radford MD 03/30/2020 Edema EXTENDED VISIT with Kami Radford MD 1 05/30/2019 Late effects of cerebral infarction: aphasia EXTENDED VISIT with Kami Radford MD 03/30/2020 Stroke syndrome EMBOLIC EXTENDED VISIT with Kami Radford MD 03/30/2020 Cellulitis of left lower leg HOSP I/P F/U with Arpit mckenna MD 07/22/2019 Cellulitis of right lower leg HOSP I/P F/U with Arpit castillo MD 07/22/2019 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 HOSP I/P F/U with Arpit Khan MD 07/22/2019 Chronic cutaneous ulcer venous stasis EXTENDED VISIT with Karuna Khan MD 07/08/2019 Anxiety disorder NOS NEW PATIENT EVALUATION with Arpit Khan MD 05/27/2019 Benign essential hypertension NEW PATIENT EVALUATION with Karuna Khan MD 05/27/2019 Depression NEW PATIENT EVALUATION with Arpit castillo MD 05/27/2019 Hyperlipidemia NEW PATIENT EVALUATION with Arpit castillo MD 05/27/2019 Stroke syndrome NEW PATIENT EVALUATION with Arpit castillo MD 05/27/2019 Instructions Instructions not supported for this document typeNo Instructions Recorded Medical Equipment - Implanted Devices Includes: Current and historical DevicesNo Medical Equipment Recorded Medications Includes: Current and historical Medications Current Medications (continue as prescribed) Mupirocin 2% External Ointment 05/06/2020 - 05/16/2020 Provi dmitry: Kami Radford MD Diagnosis: Cellulitis of other sites APPLY TO OPEN SORE BID X 10 DAYS Amoxicillin-Pot Clavulanate 875-125 MG Oral Tablet 0 - 05/16/2020 Provider: Kami Radford MD Diagnosis: Cellulitis of other sites 1 tab twice a day W/ FOOD HYDROcodone-Acetaminophen 5-325 MG Oral Tablet 04/28/2020 - 05/28/2020 Provider: Kami Radford MD Diagnosis: Other chronic pain 1 tab po BID HAS 8 DAYS LEFT MDD 2, freq changed on 04/06, was given #90 on 03/30/2020 Refresh Tears 0.5% Ophthalmic Solution 04/06/2020 P rovider: Kami Radford MD Diagnosis: Dry eye syndrome of left lacrimal gland 2 drops to left eye tid for dry eyes Acetaminophen 325 MG Oral Tablet 04/06/2020 Provide r: Kami Radford MD Diagnosis: Pain in right hip 2 tabs po q 4 hrs for pain, not to exceed 3 gms in 24 hours Aspercreme Lidocaine 4% External Patch 04/06/2020 P rovider: Kami Radford MD Diagnosis: Pain in right hip apply to right hip topically every 24 hours, may use 2 patch es, QUEtiapine Fumarate 50 MG Oral Tablet 04/06/2020 Pr ovider: Kami Radford MD Diagnosis: Generalized anxiety disorder 1/2 tab (25mg) po every hs for depression/anxiety/insomnia Protonix 40 MG Oral Tablet Delayed Release 04/06/2020 Provider: Kami Radford MD Diagnosis: Heartburn 40 mg po qam for heartburn/indigestion Mirapex 1 MG Oral Tablet 04/06/2020 Provider: Kami Radford MD Diagnosis: Restless legs syndro me 1 tab po bid for rls Melatonin 5 MG Oral Tablet 04/06/2020 Provider: Kami Radford MD Diagnosis: Insomnia 5 mg po qhs for insomnia Lipitor 20 MG Oral Tablet 04/06/2020 Provider: Kami Radford MD Diagnosis: Mixed hyperlipidemia 1 tab po QHS Lasix 20 MG Oral Tablet 04/06/2020 Provider: Kami Radford MD Diagnosis: Edema, unspecified 20 mg bid for edema Keppra 750 MG Oral Tablet 04/06/2020 Provider: Kami Radford MD Diagnosis: Other seizures 1 tab po BID for seizures from [facility] d/c meds Gabapentin 300 MG Oral Capsule 04/06/2020 Provider: Kami Radford MD Diagnosis: Inflammatory polyneu ropathy, unspecified 1 cap po BID for polyneuropathy dilTIAZem HCl 30 MG Oral Tablet 04/06/2020 Provider : Kami Radford MD Diagnosis: Essential (primary) hypertension 30 mg po tid for b/p/pulse Cymbalta 30 MG Oral Capsule Delayed Release Particles 2019 Provider: Kami Radford MD Diagnosis: Major depressive dis order, recurrent, unspecified 1 cap po bid for depression from [facility] d/c meds Citalopram Hydrobromide 20 MG Oral Tablet 04/06/2020 Provider: Kami Radford MD Diagnosis: Major depressive dis order, recurrent, unspecified 1 tab po qd for depression busPIRone HCl 5 MG Oral Tablet 04/06/2020 Provider: Kami Radford MD Diagnosis: Generalized anxiety disorder 1 tab tid po Senna 8.6 MG Oral Tablet 04/06/2020 Provider: Kami Radford MD Diagnosis: Constipation, unspec ified 1 tab po qhs for constipation Xarelto 20 MG Oral Tablet 04/06/2020 Provider: Kami Radford MD Diagnosis: Other pulmonary embo lism without acute cor pulmonale 20 mg po qhs for dvt prevention/treatment LUIS M Elastic Bandage 4" Miscellaneous 04/06/2020 Pro vider: Kami Radford MD Diagnosis: Cellulitis of right lower limb wrap lower right leg qd, Fax to Deborah nuñez 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 [facility] [phone] Past Medications on file HYDROcodone-Acetaminophen 5-325 MG Oral Tablet 04/06/2020 - 04/28/2020 Provider: Kami Radford MD Diagnosis: Other chronic pain 1 tab po BID MDD 2, freq changed on 04/06, was given #9 0 on 03/30/2020 Refresh Tears 0.5% Ophthalmic Solution 04/06/2020 - 03/30/20 20 Provider: Kami Radford MD Diagnosis: Dry eye syndrome 2 drops to left eye tid for dry eyes HYDROcodone-Acetaminophen 5-325 MG Oral Tablet 03/30/2020 - 03/30/2020 Provider: Kami Radford MD Diagnosis: Other chronic pain Three times a day MDD 3 LUIS M Elastic Bandage 4" Miscellaneous 03/16/2020 - 03/30/2020 Provider: Kami Radford MD Diagnosis: Cellulitis of right lower limb wrap lower right leg qd Refresh Tears 0.5% Ophthalmic Solution 03/06/2020 - 03/30/20 20 Provider: Diagnosis: 2 drops to left eye tid for dry eyes from [facility] d /c meds Xarelto 20 MG Oral Tablet 03/06/2020 - 03/30/2020 Provider: Diagnosis: 20 mg po qhs for dvt prevention/treatment from [facility] d/c meds Senna 8.6 MG Oral Tablet 03/06/2020 - 03/30/2020 Provider: Diagnosis: 1 tab po qhs for constipation from [facility] d/c med s Mirapex 1 MG Oral Tablet 03/06/2020 - 03/30/2020 Provider: Diagnosis: 1 tab po bid for rls from [facility] d/c meds Melatonin 5 MG Oral Tablet 03/06/2020 - 03/30/2020 Provider: Diagnosis: 5 mg po qhs for insomnia from [facility]/ meds Aspercreme Lidocaine 4% External Patch 03/06/2020 - 03/30/20 20 Provider: Diagnosis: apply to right hip topically every 24 ho urs, may use 2 oatches, reported from d/c from [facility] Lipitor 20 MG Oral Tablet 03/06/2020 - 03/30/2020 Provider: Diagnosis: 1 tab po QHS, from [facility] d/c meds busPIRone HCl 5 MG Oral Tablet 03/06/2020 - 03/30/2020 Provi dmitry: Diagnosis: tid po from [facility]/ meds Citalopram Hydrobromide 20 MG Oral Tablet 03/06/2020 - 03/30 Provider: Diagnosis: 1 tab po qd for depression from [facility]/ meds Cymbalta 30 MG Oral Capsule Delayed Release Particles 2019 - 03/30/2020 Provider: Diagnosis: 1 cap po bid for depression from [facility] d/c meds dilTIAZem HCl 30 MG Oral Tablet 03/06/2020 - 03/30/2020 Prov ider: Diagnosis: 30 mg po tid for b/p/pulse from [facility]/c meds Lasix 20 MG Oral Tablet 03/06/2020 - 03/30/2020 Provider: Diagnosis: 20 mg bid for edema from [facility]/c meds Gabapentin 300 MG Oral Capsule 03/06/2020 - 03/30/2020 Provi dmitry: Diagnosis: 1 cap po tid for polyneuropathy from [facility] d/c [place] ds Keppra 750 MG Oral Tablet 03/06/2020 - 03/30/2020 Provider: Diagnosis: 1 tab po BID for seizures from [facility] d/c meds Protonix 40 MG Oral Tablet Delayed Release 03/06/2020 - 06/2019 Provider: Diagnosis: 40 mg po qam for heartburn/indig[facility] QUEtiapine Fumarate 50 MG Oral Tablet 03/06/2020 - 0 Provider: Diagnosis: 1/2 tab (25mg) po every hs for depressio n/anxiety/insomnia from [facility] d/c meds Acetaminophen 325 MG Oral Tablet 03/06/2020 - 03/30/2020 Pro vider: Diagnosis: 2 tabs po q 4 hrs for pain, not to excee d 3 gms in 24 hours from [facility] d/c meds HYDROcodone-Acetaminophen 5-325 MG Oral Tablet 03/04/2020 - 03/30/2020 Provider: Kami Radford MD Diagnosis: Other chronic pain Three times a day MDD 3 Lasix 20 MG Oral Tablet 08/05/2019 - 04/06/2020 Provider: Arpit Khan MD Diagnosis: Venous insufficiency (chronic) (peripheral) 1 tab twice a day Gabapentin 300 MG Oral Capsule 07/29/2019 - 03/06/2020 Provi dmitry: Diagnosis: po qd Lasix 20 MG Oral Tablet 07/29/2019 - 07/29/2019 Provider: Diagnosis: one tab qd Xarelto 15 MG Oral Tablet 07/29/2019 - 04/06/2020 Provider: Diagnosis: bid po Omeprazole 20 MG Oral Capsule Delayed Release 07/29/2019 - 1 06/06/2019 Provider: Diagnosis: Lasix 20 MG Oral Tablet 07/29/2019 - 07/29/2019 Provider: Diagnosis: one tab qd busPIRone HCl 5 MG Oral Tablet 07/29/2019 - 03/06/2020 Provi dmitry: Diagnosis: id po Levaquin 500 MG Oral Tablet 07/22/2019 - 07/29/2019 Provider : Arpit Khan MD Diagnosis: Cellulitis of right lower limb 1 every day HYDROcodone-Acetaminophen 5-325 MG Oral Tablet 07/08/2019 - 07/29/2019 Provider: Arpit Khan MD Diagnosis: Other sequelae of ce rebral infarction Three times a day as needed for pain right hand; MDD #3 Xarelto 20 MG Oral Tablet 07/08/2019 - 07/29/2019 Provider: Arpit Khan MD Diagnosis: Other sequelae of ce rebral infarction 1 po every day Xarelto 20 MG Oral Tablet 06/17/2019 - 07/08/2019 Provider: Arpit Khan MD Diagnosis: Other sequelae of ce rebral infarction 1 po every day Citalopram Hydrobromide 40 MG Oral Tablet 06/06/2019 - 07/28 Provider: Diagnosis: 40 mg every day ( also on 20mg) QUEtiapine Fumarate 50 MG Oral Tablet 06/06/2019 - 0 Provider: Diagnosis: 1/2 tab, 25 mg q hs, depression Pramipexole Dihydrochloride 1 MG Oral Tablet 06/06/2019 - Provider: Diagnosis: 1 mg po BID for restless leg HYDROcodone-Acetaminophen 5-325 MG Oral Tablet 05/27/2019 - 07/08/2019 Provider: Arpit Khan MD Diagnosis: Other sequelae of ce rebral infarction Three times a day as needed for pain right hand; MDD #3 Tylenol 325 MG Oral Tablet 05/27/2019 - 07/29/2019 Provider: Diagnosis: PRN Q 4 hours Citalopram Hydrobromide 20 MG Oral Tablet 05/27/2019 - 07/28 Provider: Diagnosis: Atorvastatin Calcium 40 MG Oral Tablet 05/27/2019 - 07/29/19 Provider: Diagnosis: Cymbalta 30 MG Oral Capsule Delayed Release Particles 2018 - 07/29/2019 Provider: Diagnosis: Lasix 20 MG Oral Tablet 05/27/2019 - 07/29/2019 Provider: Diagnosis: Xarelto 20 MG Oral Tablet 05/27/2019 - 06/17/2019 Provider: Diagnosis: HM Senna 8.6 MG Oral Tablet 05/27/2019 - 07/29/2019 Provider : Diagnosis: Omeprazole 20 MG Oral Capsule Delayed Release 05/27/2019 - 0 07/29/2019 Provider: Diagnosis: levETIRAcetam 750 MG Oral Tablet 05/27/2019 - 07/29/2019 Pro vider: Diagnosis: Gabapentin 300 MG Oral Capsule 05/27/2019 - 07/29/2019 Provi dmitry: Diagnosis: dilTIAZem HCl 30 MG Oral Tablet 05/27/2019 - 07/29/2019 Prov ider: Diagnosis: busPIRone HCl 5 MG Oral Tablet 05/27/2019 - 07/29/2019 Provi dmitry: Diagnosis: HYDROcodone-Acetaminophen 5-325 MG Oral Tablet 05/27/2019 - 05/27/2019 Provider: Diagnosis: 1 Q 8 hours PRN MDD 3 Medications Administered Includes: Administered Medications in patient's chartNo Administered Medications Recorded Vital Signs Includes: Vital Signs from 05/14/2019 through 05/14/2020 Vital Name 05/14/2020 10:32A 05/06/2020 03:20P 04/28/2020 09:42A 03/30/2020 01:06P 07/29/2019 12:56P Blood Pressure Sitting L 130/78 124/76 130/80 122/70 100/60 BP Cuff Size Regular Regular Large Regular Large Pulse Rate-Sitting (bpm) 90 95 99 78 76 Respiration Rate (breaths/min) 24 24 24 22 20 Temp-Temporal 97.3 97.8 97.6 96.8 Oxygen Saturation (%) 92 99 98 94 96 Flow Rate (l/min) (None (Room Air)) (None (Room Air)) (None (Yaritza m Air)) (None (Room Air)) FiO2 (%) 21 21 21 21 Temp-Tympanic (F) 97.8 Note: L calf measureme nt 47 cm, L foot 31 cm, and R calf 37 cm , L foot 26 cm Measured calf circumferance. Left 15.5 i n in diameter. Right, 20 inches in diameter. TS Vital Name 07/22/2019 10:20A 07/08/2019 11:53A 05/27/2019 10:52A Blood Pressure Sitting L 118/66 140/80 122/68 BP Cuff Size Large Regular Large Pulse Rate-Sitting (bpm) 92 92 83 Respiration Rate (breaths/min) 24 20 24 Temp-Temporal 97.8 Oxygen Saturation (%) 91 96 99 Flow Rate (l/min) (None (Room Air)) FiO2 (%) 21 Temp-Tympanic (F) 98.8 Note: unable to be lorenzo ghed in wheel chair Results Includes: Results from 05/14/2019 through 05/14/[address] [facility] Ordered by Kami Radford MD on 05/06/[address] [place] [address], [facility] Collected: 05/06/2020 Reported: 05/12/2020 12:09 tel : CULTURE WOUND See Note None Note: _CULTURE WOUND_ [id number] DATE/TIME: 05/12/2020 11:06Culture: CULTURE WOUND Status: FinalIsolate 1 Staphylococcus aureus Flag: A . . . . . . .3Moderate growthMethicillin resistant (MRSA)Based on resistance to oxacillin this isolate would be resistant toall currently available beta-lactam antimicrobial agents, with theexception of the newer cephalosporins with anti-MRSA activity, such asCeftaroline Previous result entered on 05/11/2020 13:35 ET Staphylococcus aureus Previous result entered on 05/10/2020 10:00 ET Staphylococcus aureusAerobic Bacterial Culture: [id number] Flag: AIsolate 2 Acinetobacter lwoffii Flag: A . . . . . . .8Moderate growth Previous result entered on 05/11/2020 13:35 ET -- Continued on next page --Patient: LOUISE James Order: [id number] Page 2Culture: CULTURE WOUND Status: Final ====Gram negative rods Previous result entered on 05/10/2020 10:00 ET Gram negative rodsAcinetobacter lwoffii Flag: APatient: LOUISE James Order: [id number] Page 3Culture: CULTURE WOUND Status: Final =====ISOLATE 1 Staphylococcus aureusISOLATE 2 Acinetobacter lwoffii Isolate 1 Isolate 2Antibiotic RAJENDRA Int RAJENDRA IntUnits ug/mL ug/mL ----Amikacin Ampicillin/Sulbactam Cefepime Cefotaxime Ceftazidime Ceftriaxone Ciprofloxacin S S Clindamycin S S Erythromycin S S Gentamicin S S Levofloxacin S S Linezolid S S Meropenem Oxacillin R R Penicillin R R Rifampin S S Tetracycline S S Ticarcillin/Clavulanate Tobramycin Trimethoprim/Sulfa S S Vancomycin S S P1 Test performed by: [facility] #: [id number] [address] [place] [address] [id number] [facility] [id number] Director : Jarod Ratliff MD NPI #:Recovery Specialist : 05/11/20.0615.XMT.SENT REF 05/11/20.1546.XMT.SENT REF 05/12/20.1210.XMT.SENT REF Reviewed by Kami Radford MD on 2019; All test results are final unless otherwise noted. Reported Physicians [facility] Ordered by Kami Radford MD on 05/06/[address] [place] [address], [facility] Collected: 05/06/2020 Reported: 05/12/2020 12:10 tel : Reported Physicians See Note None Note: Reported Physicians:Ordering: Kami Sommers AAttending: KAMI RADFORDReferring: KAMI RADFORDConsulting: NO, PCPCopy To: Kami Radford Reviewed by Kami Radford MD on 2019; All test results are final unless otherwise noted. History of Present Illness History of Present Illness not supported for this document typeNo History of Present Illness Recorded Social History Description Last Updated Homebound with assistance by paid help 03/30/2020 Able to sit X HRS 03/30/2020 Activities of daily living 03/30/2020 Difficulty communicating 03/30/2020 Difficulty grooming 03/30/2020 Difficulty washing 03/30/2020 Feeding oneself with no difficulty 03/30/2020 No severe hearing impairment 03/30/2020 No severe visual impairment 03/30/2020 Not a current smoker 03/30/2020 Not using alcohol 03/30/2020 Physical disability 03/30/2020 Physical disability and unable to perfor m usual physical activities for age 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 PERSONAL CARE, SHOWERS 2X A WEEK. MEALS ON WHEELS . 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 03/30/2020 Putting on lower garments requires assistance 03/30/20 20 Putting on upper garments requires assistance 03/30/20 20 Severe speech impairment 03/30/2020 Unable to stand CAN TRANSFER FROM CHAIR TO CAR,CHAIR TO BED 03/30/2020 Unable to walk 03/30/2020 Wheelchair dependence 03/30/2020 Smoking Status Unknown Procedures and Surgical History Includes: Procedures from 05/14/2019 through 05/14/2020 Procedures Code Diagnosis Performing Provider Service Location Service Date ELECTROCARDIOGRAM, COMPLETE (EKG) 86150 Atrial Fibrill ation Unspecified Kami Radford MD Family Medicine [facility] 03/30/2020 Medical History Includes: Medical History in patient's chart Description Last Updated Hx CVA between 5 - 10 years ago, in [facility]. 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 ~Surgery- tonsillectomy 05/27/2019 History of essential hypertension 05/27/2019 History of hyperlipidemia 05/27/2019 No history of coronary artery disease 05/27/2019 No history of type 2 diabetes mellitus 05/27/2019 Family History Includes: Family History in patient's chartNo Family History Recorded Review of Systems Review of Systems not supported for this document typeNo Review of Systems Recorded Mental Status Mental Status not supported for this document typeNo Mental Status Recorded Functional Status Functional Status not supported for this document typeNo Functional Status Recorded Physical Exam Physical Exam not supported for this document typeNo Physical Exam Recorded Immunizations Includes: Immunizations in patient's chartNo Immunizations Recorded Allergies Includes: Active, inactive, and resolved Allergies Substance Type Reaction Onset Date - Time Resolved Date - Ti me Status Zocor Allergy muscle aches 05/27/2019 - 12:00AM Ac tive Wellbutrin Allergy eye swelling 05/27/2019 - 12:00AM Ac tive Paxil Allergy eye swelling 05/27/2019 - 12:00AM Ac tive Depakote Allergy twitching legs 05/27/2019 - 12:00AM Active Encounters Includes: Encounters from 05/14/2019 through 05/14/2020 Encounter Provider Location Date Check-In Time Check-Out Time D iagnosis STANDARD OV Kami Radford MD [facility], 04/28 10:25AM 11:21AM Cellulitis EXTENDED VISIT Kami Radford MD [facility], 3:10PM 4:15PM Cellulitis, Persistent Insom david EXTENDED VISIT Kami Radford MD [facility], 9:40AM 10:53AM Chronic Pain, Atrial Fibrill ation Chronic, Late Effects of Cerebral Infarction Aphasia EXTENDED VISIT Kami Radford MD [facility], 1:03PM 2:36PM Chronic Kidney Disease Stage 3, Atrial Fibrillation Chronic, Stroke Syndrome, Late Effects of Cerebral Infarction Aphasia, Edema RX UPDATE Kami Radford MD 03/04/2020 07/29/2019 3:49PM 11:59PM EXTENDED VISIT Arpit Khan MD [facility], 07/29/2019 12:45PM 2:31PM HOSP I/P F/U Arpit Khan MD [facility], 10:16AM 11:52AM Cellulitis of Right Lower Le g, Cellulitis of Left Lower Leg, Arterial Embolism Pulmonary Left EXTENDED VISIT Arpit Khan MD [facility], 07/08/2019 11:45AM 12:35PM Chronic Cutaneous Ulcer Veno us Stasis RX UPDATE Arpit Khan MD [facility], 05/27/2019 1:21PM 05/27/2019 11:59PM NEW PATIENT EVALUATION Arpit Khan MD Family [facility] 05/27/2019 10:47AM 12:01PM Stroke Syndrome, Hyp erlipidemia, Anxiety Disorder Nos, Essential Hypertension Benign, Depression Insurance Includes: Active Insurance Policies Plan Name Member ID Group # Subscriber Relationship Effective Da lucero 1 - Medicare ([employer]) [id number] zhang Rao Self 2 - Medicaid After Medicare [id number] Elias Rao Madeleine f Advance Directives Includes: Current Advance DirectivesNo Advance Directives Recorded Health Concerns Includes: Active Health ConcernsNo Active Health Concerns Recorded Goals Includes: Active GoalsNo Active Goals Recorded Interventions Includes: Interventions for active GoalsNo Interventions Recorded Evaluations & Outcomes Includes: Evaluations & Outcomes for active GoalsNo Outcomes Recorded
--- OUTSIDE RECORDS SUMMARY | 2020-07-20 11:13 | CCD | Continuity of Care Document ---
Author Author [facility] Organization Unknown Address [address] [place] [address] Phone [phone] Care Team Providers Care Wireless Sales Expert Name Role Phone Kami Delarosa AUTM [phone] Kami Delarosa AUTM [phone] Social History Type Date Description Comments Sex Unknown Medications Active Medications SIG Qnty Indications Ordering Provide r Date Carvedilol 3.125mg Tablets take one tablet by mouth twice a day with food 60tabs [facility] 07/14/2020 Atorvastatin Calcium 40mg Tablets Chaz Clay MD Buspirone HCL 5mg Tablets Chaz Clay MD Quetiapine Fumarate 25mg Tablets Chaz Clay MD Levetiracetam 750mg Tablets Kami Delarosa Amoxicillin/Clavulanate Potassium 875-125mg Tablets Kami Delarosa Hydrocodone-Acetaminophen 5-325mg Tablets Kami Delarosa Mupirocin 2% Ointment Kami Delarosa Levofloxacin 500mg Tablets Kami Delarosa Xarelto 20mg Tablets Kami Delarosa Quetiapine Fumarate 50mg Tablets Kami Delarosa Pramipexole Dihydrochloride 1mg Tablets Kami Delarosa Pantoprazole Sodium 40mg Tablets Kami Vigil Gabapentin 300mg Capsules Kami Delarosa Furosemide 20mg Tablets Kami Delarosa Duloxetine HCL 30mg Caps Kami Martinez Diltiazem HCL 30mg Tablets Kami Delarosa Citalopram Hydrobromide 20mg Tablets Kami Delarosa Atorvastatin Calcium 20mg Tablets Kami Delarosa Vital Signs Date Vital Result Comment 07/14/2020 3:52pm Height 70 inches 5'10" Body Temperature 99.9 F BP Systolic 125 mmHg BP Diastolic 88 mmHg Heart Rate 108 /min O2 % BldC Oximetry 96 % Respiratory Rate 16 /min Plan of Treatment Future Appointment(s):* 08/13/2020 2:15 pm - [facility] at [facility]
--- OUTSIDE RECORDS SUMMARY | 2020-07-20 11:13 | CCD ---
Author Author [facility] Organization [facility] Address Unknown Phone Unavailable Care Team Providers Care Medical Lab Tech Instructor Name Role Phone Steve Small Unavailable PROBLEMS Type Condition ICD9-CM Code OGN09-XV Code Onset Dates Condition S tatus SNOMED Code Notes Problem Attention deficit disorder of adult F90.0 Acti ve 694896246 Problem Restless leg syndrome G25.81 Active 00488271 Problem Hx of coronary artery disease Z86.79 Active 27 4814121 Problem Hypertension I10 Active 58347720 Problem Erectile dysfunction due to diseases classified elsewhere N52.1 Active 142560129 Problem 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 Active 51825534 Problem Moderate episode of recurrent major depressive disorder F33.1 Active 615295808 Problem Anxiety F41.9 Active 62195622 Problem Current moderate episode of major depressive disorder without prior episode F32.1 Active 69460526 Problem Hyperlipidemia E78.5 Active 46225936 Problem Other sequelae of cerebral infarction I69.398 Active 416694819345412 Problem Hemiparesis affecting domina nt side as late effect of cerebrovascular accident I69.359 Active 716363805 Problem Cerebrovascular accident (CV A) due to embolism of left middle cerebral artery I63.412 Active 018310754 Problem Aphasia as late effect of cerebrovascular accident I69.320 Active 075049996 ALLERGIES Allergen (clinical drug ingredient) Drug/Non Drug Allergy do cumented on EMR Reaction Allergy Type Onset Date Status valproate Divalproex Sodium(NDC Code:[address]-53) legs twitchi ng Drug Allergy Active simvastatin Simvastatin(NDC Code:[address]-56) muscle aches Drug All ergy Active Wellbutrin eye swelling Drug Allergy Active paroxetine Paxil([facility] Code:[address]-57) eye swelling Drug Allergy Active ENCOUNTERS from 1950 to 2020-06-24 Encounter Location Date Provider Diagnosis [facility] [address] [place] [address] May Steve Staci IMMUNIZATIONS No Information SOCIAL HISTORY Tobacco Use: Social History Observation Description Date Details (start date - stop date) Former Smoker Sex Assigned At : Social History Observation Description Sex Assigned At Unknown Alcohol Screening: Question Answer Notes Did you have a drink containing alcohol in the past year? No Points 0 Interpretation Negative BMI Care Goal Follow-Up Question Answer Notes Above Normal BMI Follow-Up Dietary management educatio n, guidance, and counseling Tobacco Use: Question Answer Notes Are you a: former smoker How long has it been since you last smoked? 5-10 years REASON FOR REFERRAL No Information VITAL SIGNS No information MEDICATIONS Medication SIG (Take, Route, Frequency, Duration) Notes Start Da te End Date Status Citalopram Hydrobromide 20 MG 1 tablet Orally Once a day for 30 Active Senna 8.6 MG 1 tablet in the evening as needed Orally Once a day Active Cymbalta 30 MG 1 capsule Orally twice daily for 30 Active Pramipexole Dihydrochloride 1 mg 1 tablet Orally twice daily for 30 d ays Active Omeprazole 20 MG TAKE 20 MILLIGRAMS ORAL DAILY Active Quetiapine Fumarate 25 mg 1 tablet Orally Once a day at bedtime for 30 days Active Diltiazem HCl 30 MG 1 tablet Orally Three times a day for 30 days Active Acetaminophen 325 MG 1 tablet as needed Orally every 4 hrs Active Wheelchair Cushion - pressure relieving wheelchair cushion Daily Jan, Active Occupational Therapy and Speech therapy Evaluate and treat through [facility] for 42 days Active Gel-Foam Cushion - for motorized wheelchair Dx I69.359 for 90 days Active Physical Therapy evaluate and treat as directed 1-3X/w pamunkey Dx I63.412/I69.359 for 1 month Jun, Not-Taking Wheelchair - Manual wheelchair- for backup DxI69.325 Daily fo r 30 day(s) Jun, Active Levetiracetam 750 MG 1 tablet Orally Twice a day for 30 days Active Wheelchair _ accessories- bilat elevating leg rests Daily Jan, Active Citalopram Hydrobromide 40 MG TAKE ONE TABLET BY MOUTH EVERY DAY for 30 Active Atorvastatin Calcium 40 MG 1 tablet Orally Once a day for 30 days Active Hydrocodone-Acetaminophen 5-325 MG 1 tablet as needed Orally every 8 hrs/prn MDD#3 for 30 day(s) Feb, Active BusPIRone HCl 5 MG 1 tablet Orally Three times a day as needed for anxiety for 30 Active Gabapentin 300 MG 1 capsule Orally Three times a day for 30 Active Xarelto 20 MG 1 tablet with food Orally Once a day for 28 Active Lasix 20 MG 1 tablet Orally twice a day for 30 days Active speech therapy as directed eval and treat Dx I69.320 for one mo [facility] May, Not-Taking PROCEDURES No Information RESULTS No Results 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 Apt WCC MEDICAL (GENERAL) HISTORY Type Description Date Medical History Hypertension Medical History Hyperlipidemia Medical History Coronary artery disease Medical History Anxiety Medical History Restless leg syndrome Medical History Iron deficiency anemia Medical History Left MCA CVA 10/2016 Medical History Hx of Afib Medical History Depression Medical History DVT Feb 2018 Surgical History CABG X4 2008 Surgical History Colonoscopy- Dr Meehan- 2 polyps- repeat in 05/2016 Hospitalization History CVA- [facility] 10/2016 Hospitalization History [place]-DVT 09/2018 Hospitalization History [facility]-Cellulitis right lower leg -01/03/19 Goals Section No Information Health Concerns No Information MEDICAL EQUIPMENT No Information MENTAL STATUS No Information FUNCTIONAL STATUS No Information ASSESSMENTS No Information PLAN OF TREATMENT Medication Medication Name Sig Start Date Stop Date Gel-Foam Cushion - for motorized wheelchair Dx I69.359 for 90 da ys Xarelto 20 MG 1 tablet with food Orally Once a day for 28 Diltiazem HCl 30 MG 1 tablet Orally Three times a day for 30 day s Occupational Therapy and Speech therapy Evaluate and treat through [facility] for 42 days Quetiapine Fumarate 25 mg 1 tablet Orally Once a day at bedtime for 30 days Hydrocodone-Acetaminophen 5-325 MG 1 tablet as needed Orally every 8 hrs/prn MDD#3 for 30 day(s) Feb, Lasix 20 MG 1 tablet Orally twice a day for 30 days Levetiracetam 750 MG 1 tablet Orally Twice a day for 30 days Omeprazole 20 MG TAKE 20 MILLIGRAMS ORAL DAILY Atorvastatin Calcium 40 MG 1 tablet Orally Once a day for 30 day s Pramipexole Dihydrochloride 1 mg 1 tablet Orally twice daily for 30 days Citalopram Hydrobromide 40 MG TAKE ONE TABLET BY MOUTH EVERY DAY for 30 BusPIRone HCl 5 MG 1 tablet Orally Three times a day as needed for anxiety for 30 Cymbalta 30 MG 1 capsule Orally twice daily for 30 Gabapentin 300 MG 1 capsule Orally Three times a day for 30 Insurance Providers Payer Name Payer Address Payer Phone Insured Name Patient Relati onship to Insured Coverage Start Date Coverage End Date MEDICARE Part A and B [address] [facility] [id number] [phone] ROBERTO GIL self
--- OUTSIDE RECORDS SUMMARY | 2020-07-20 11:13 | CCD ---
Author Author [facility] Organization [facility] Address Unknown Phone Unavailable Care Team Providers Care Private Equity Analyst Name Role Phone Steve Small Unavailable PROBLEMS Type Condition ICD9-CM Code PES86-HS Code Onset Dates Condition S tatus W/U Status Risk SNOMED Code Notes Problem Attention deficit disorder of adult F90.0 Acti ve confirmed 683204761 Problem Restless leg syndrome G25.81 Active confirmed 47201629 Problem Hx of coronary artery disease Z86.79 Active confirm ed 008040870 Problem Hypertension I10 Active confirmed 6016985 3 Problem Erectile dysfunction due to diseases classified elsewhere N52.1 Active confirmed 639776538 Problem 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 Active conf irmed 90071406 Problem Moderate episode of recurrent major depressive disorder F33.1 Active confirmed 569740686 Problem Anxiety F41.9 Active confirmed 65353965 Problem Current moderate episode of major depressive disorder without prior episode F32.1 Active confirmed 85414505 Problem Hyperlipidemia E78.5 Active confirmed 88945 004 Problem Other sequelae of cerebral infarction I69.398 Ac tive confirmed 730659483518550 Problem Hemiparesis affecting domina nt side as late effect of cerebrovascular accident I69.359 Active confirmed 285734921 Problem Cerebrovascular accident (CV A) due to embolism of left middle cerebral artery I63.412 Active confirmed 914612891 Problem Aphasia as late effect of cerebrovascular accident I69.320 Active confirmed 759491431 ALLERGIES Allergen (clinical drug ingredient) Drug/Non Drug Allergy do cumented on EMR Reaction Allergy Type Onset Date Status valproate Divalproex Sodium(NDC Code:[address]-19) legs twitchi ng Drug Allergy Active simvastatin Simvastatin(NDC Code:[address]-24) muscle aches Drug All ergy Active Wellbutrin eye swelling Drug Allergy Active paroxetine Paxil([facility] Code:[address]-64) eye swelling Drug Allergy Active ENCOUNTERS from 1950 to 2020-06-30 Encounter Location Date Provider Diagnosis [facility] [address] [place] [address] Jun Steve Small IMMUNIZATIONS No Information SOCIAL HISTORY Tobacco Use: [...] Therapy evaluate and treat as directed 1-3X/w [place] Dx I63.412/I69.359 for 1 month Jun, Not-Taking [...] and treat Dx I69.320 for one mo [facility] May, Not-Taking PROCEDURES No Information RESULTS No Results REASON FOR VISIT No Information MEDICAL (GENERAL) HISTORY Type Description Date Medical [...] Hospitalization History CVA- [facility] 10/2016 Hospitalization History [place]-DVT 09/2018 Hospitalization History [facility]-Cellulitis right lower leg [...] Orally Three times a day for 30 Next Appt Details Provider Name:Steve Vamsijessica, 01:00:00 PM, [place], [address], Insurance Providers Payer Name Payer Address Payer Phone Insured Name Patient Relati onship to Insured Coverage Start Date Coverage End Date MEDICARE Part A and B [address] [facility] [phone] ROBERTO GIL self
--- OUTSIDE RECORDS SUMMARY | 2020-07-20 11:13 | CCD | Continuity of Care Document ---
Author Author [facility] Organization Unknown Address [address] [place] [address] Phone [phone] Care Team Providers Care Evp Marketing Name Role Phone Kmai Delarosa AUTM [phone] Kami Delarosa AUTM [phone] Social History Type Date Description Comments Sex [...] Oximetry 96 % Respiratory Rate 16 /min Procedures Date Code Description Status 07/14/2020 33208 Echocardiogram, Complete Complet ed 07/14/2020 99091 EKG Completed Encounters Type Date Location Provider Dx Diagnosis Office Visit 07/14/2020 3:45p [facility] I11.9 Hypertensive heart disease without heart failure I48.0 Paroxysmal atrial fibrillati on I49.49 Other premature depolarizati on I34.0 Nonrheumatic mitral (valve) insufficiency Assessments Date Code Description Provider 07/14/2020 I11.9 Hypertensive heart disease witho ut heart failure [facility] 07/14/2020 I48.0 Paroxysmal atrial fibrillation [facility]quin [facility] 07/14/2020 I49.49 Other premature depolarization [facility] 07/14/2020 I34.0 Nonrheumatic mitral (valve) insu fficiency [facility] Plan of Treatment Future Appointment(s):* 08/13/2020 2:15 pm - [facility] at [facility]
--- OUTSIDE RECORDS SUMMARY | 2020-07-20 11:14 | CCD ---
Author Author [facility] Organization [facility] Address [address] [place] [address] Phone Care Team Providers Care Micro Paleontologist Name Role Phone Isaura CARDOZA, Kami Stoll Unavailable [phone] Reason for Referral No Reason for Referral Recorded Problems Includes: Active, inactive, and resolved ProblemsNo Problems Recorded Plan of Treatment Pending Tests Order Diagnosis Results Due Ordering Provi dmitry Therapy - Physical Therapy Bilateral Legs 03/31/20 Kami Delarosa MD *Labs (Manual) KEPPRA LEVEL Other seizures 04/13/20 Kami north MD *Labs (Manual) LIPID HCC-Cerebral infarction, unspecified Kami Delarosa MD *Labs (Manual) FREE T3 Atrial Fibrillation Unspecified 0 Kami Delarosa MD *Labs (Manual) FREE T4 Atrial Fibrillation Unspecified 0 Kami Delarosa MD *Labs (Manual) TSH Atrial Fibrillation Unspecified 0 Kami Delarosa MD *Labs (Manual) CBC 04/13/20 Kami glaser MD *Labs (Manual) CMP 04/13/20 Kami glaser MD *Labs (Manual) KEPPRA LEVEL Other seizures 05/12/20 Kami north MD *Labs (Manual) proBNP Unspecified systolic (congestive) heart failure 05/12/20 Kami Delarosa MD *Labs (Manual) TSH Atrial Fibrillation Unspecified 0 Kami Delarosa MD *Labs (Manual) FREE T3 Atrial Fibrillation Unspecified 0 Kami Delarosa MD *Labs (Manual) FREE T4 Atrial Fibrillation Unspecified 0 Kami Delarosa MD *Labs (Manual) PT/INR Atrial Fibrillation Unspecified 0 Kami Delarosa MD *Labs (Manual) PTT Atrial Fibrillation Unspecified 0 Kami Delarosa MD *Labs (Manual) MICROALBUMIN HCC-Chronic kidney disease, stage 3a Kami Delarosa MD *Labs (Manual) CBC HCC-Chronic kidney disease, stage 3a Kami Delarosa MD *Labs (Manual) CK Mixed hyperlipidemia 05/12/20 Cameron Delarosa MD *Labs (Manual) LIPID Mixed hyperlipidemia 05/12/20 Cameron Delarosa MD *Labs (Manual) PSA Encounter for screening for erna gnant neoplasm of prostate 05/12/20 Kami Delarosa MD Findings Encounter Date Ordered follow-up visit 1 MO EXTENDED VISIT with Kami Delarosa MD 04/28/2020 Assessments Includes: Assessments for all patient encounters Findings Encounter Date Chronic atrial fibrillation EXTENDED VISIT with Kami abbott MD 04/28/2020 Chronic pain EXTENDED VISIT with Kami Delarosa MD 1 06/29/2019 Late effects of cerebral infarction: aphasia EXTENDED VISIT with Kami Delarosa MD 04/28/2020 Chronic atrial fibrillation EXTENDED VISIT with Kami abbott MD 03/30/2020 Chronic kidney disease, stage 3 59.5 ML/MIN EXTENDED VISIT with Kami Delarosa MD 03/30/2020 Edema EXTENDED VISIT with Kami Delarosa MD 1 05/30/2019 Late effects of cerebral infarction: aphasia EXTENDED VISIT with Kami Delarosa MD 03/30/2020 Stroke syndrome EMBOLIC EXTENDED VISIT with Kami Delarosa MD 03/30/2020 Cellulitis of left lower leg [...] historical Medications Current Medications (continue as prescribed) HYDROcodone-Acetaminophen 5-325 MG Oral Tablet 04/28/2020 - 05/28/2020 Provider: Kami Delarosa MD Diagnosis: Other chronic pain 1 tab po BID HAS 8 DAYS LEFT MDD 2, freq changed on 04/06, was given #90 on 03/30/2020 Refresh Tears 0.5% Ophthalmic Solution 04/06/2020 P rovider: Kami Delarosa MD Diagnosis: Dry eye syndrome of left lacrimal gland 2 drops to left eye tid for dry eyes Acetaminophen 325 MG Oral Tablet 04/06/2020 Provide r: Kami Delarosa MD Diagnosis: Pain in right hip 2 tabs po q 4 hrs for pain, not to exceed 3 gms in 24 hours Aspercreme Lidocaine 4% External Patch 04/06/2020 P rovider: Kami Delarosa MD Diagnosis: Pain in right hip apply to right hip topically every 24 hours, may use 2 patch es, QUEtiapine Fumarate 50 MG Oral Tablet 04/06/2020 Pr ovider: Kami Delarosa MD Diagnosis: Generalized anxiety disorder 1/2 tab (25mg) po every hs for depression/anxiety/insomnia Protonix 40 MG Oral Tablet Delayed Release 04/06/2020 Provider: Kami Delarosa MD Diagnosis: Heartburn 40 mg po qam for heartburn/indigestion Mirapex 1 MG Oral Tablet 04/06/2020 Provider: Kami Delarosa MD Diagnosis: Restless legs syndro me 1 tab po bid for rls Melatonin 5 MG Oral Tablet 04/06/2020 Provider: Kami Delarosa MD Diagnosis: Insomnia 5 mg po qhs for insomnia Lipitor 20 MG Oral Tablet 04/06/2020 Provider: Kami Delarosa MD Diagnosis: Mixed hyperlipidemia 1 tab po QHS Lasix 20 MG Oral Tablet 04/06/2020 Provider: Kami Delarosa MD Diagnosis: Edema, unspecified 20 mg bid for edema Keppra 750 MG Oral Tablet 04/06/2020 Provider: Kami Delarosa MD Diagnosis: Other seizures 1 tab po BID for seizures from [facility] d/c meds Gabapentin 300 MG Oral Capsule 04/06/2020 Provider: Kami Delarosa MD Diagnosis: Inflammatory polyneu ropathy, unspecified 1 cap po BID for polyneuropathy dilTIAZem HCl 30 MG Oral Tablet 04/06/2020 Provider : Kami Delarosa MD Diagnosis: Essential (primary) hypertension 30 mg po tid for b/p/pulse Cymbalta 30 MG Oral Capsule Delayed Release Particles 2019 Provider: Kami Delarosa MD Diagnosis: Major depressive dis order, recurrent, unspecified 1 cap po bid for depression from [facility] d/c meds Citalopram Hydrobromide 20 MG Oral Tablet 04/06/2020 Provider: Kami Delarosa MD Diagnosis: Major depressive dis order, recurrent, unspecified 1 tab po qd for depression busPIRone HCl 5 MG Oral Tablet 04/06/2020 Provider: Kami Delarosa MD Diagnosis: Generalized anxiety disorder 1 tab tid po Senna 8.6 MG Oral Tablet 04/06/2020 Provider: Kami Delarosa MD Diagnosis: Constipation, unspec ified 1 tab po qhs for constipation Xarelto 20 MG Oral Tablet 04/06/2020 Provider: Kami Delarosa MD Diagnosis: Other pulmonary embo lism without acute cor pulmonale 20 mg po qhs for dvt prevention/treatment LUIS M Elastic Bandage 4" Miscellaneous 04/06/2020 Pro vider: Kami Delarosa MD Diagnosis: Cellulitis of right lower limb wrap lower right leg qd, Fax to Deborah nuñez law examiner at [facility] [phone] Past Medications on file HYDROcodone-Acetaminophen 5-325 MG Oral Tablet 04/06/2020 - 04/28/2020 Provider: Kami Delarosa MD Diagnosis: Other chronic pain 1 tab po BID MDD 2, freq changed on 04/06, was given #9 0 on 03/30/2020 Refresh Tears 0.5% Ophthalmic Solution 04/06/2020 - 03/30/20 20 Provider: Kami Delarosa MD Diagnosis: Dry eye syndrome 2 drops to left eye tid for dry eyes HYDROcodone-Acetaminophen 5-325 MG Oral Tablet 03/30/2020 - 03/30/2020 Provider: Kami Delarosa MD Diagnosis: Other chronic pain Three times a day MDD 3 LUIS M Elastic Bandage 4" Miscellaneous 03/16/2020 - 03/30/2020 Provider: Kami Delarosa MD Diagnosis: Cellulitis of right lower limb wrap lower right leg qd QUEtiapine Fumarate 50 MG Oral Tablet 03/06/2020 - 0 Provider: Diagnosis: 1/2 tab (25mg) po every hs for depressio n/anxiety/insomnia from [facility] d/c meds Xarelto 20 MG Oral Tablet 03/06/2020 - 03/30/2020 Provider: Diagnosis: 20 mg po qhs for dvt prevention/treatment from [facility] d/c meds Senna 8.6 MG Oral Tablet 03/06/2020 - 03/30/2020 Provider: Diagnosis: 1 tab po qhs for constipation from [facility] d/c med s Refresh Tears 0.5% Ophthalmic Solution 03/06/2020 - 03/30/20 20 Provider: Diagnosis: 2 drops to left eye tid for dry eyes from [facility] d /c meds Acetaminophen 325 MG Oral Tablet 03/06/2020 - 03/30/2020 Pro vider: Diagnosis: 2 tabs po q 4 hrs for pain, not to excee d 3 gms in 24 hours from [facility] d/c meds Lasix 20 MG Oral Tablet 03/06/2020 - 03/30/2020 Provider: Diagnosis: 20 mg bid for edema from [facility] d/c meds dilTIAZem HCl 30 MG Oral Tablet 03/06/2020 - 03/30/2020 Prov ider: Diagnosis: 30 mg po tid for b/p/pulse from [facility] d/c meds Aspercreme Lidocaine 4% External Patch 03/06/2020 - 03/30/20 20 Provider: Diagnosis: apply to right hip topically every 24 ho urs, may use 2 oatches, reported from d/c from [facility] Lipitor 20 MG Oral Tablet 03/06/2020 - 03/30/2020 Provider: Diagnosis: 1 tab po QHS, from [facility] d/c meds busPIRone HCl 5 MG Oral Tablet 03/06/2020 - 03/30/2020 Provi dmitry: Diagnosis: tid po from [facility] d/c meds Citalopram Hydrobromide 20 MG Oral Tablet 03/06/2020 - 03/30 Provider: Diagnosis: 1 tab po qd for depression from [facility] d/c meds Cymbalta 30 MG Oral Capsule Delayed Release Particles 2019 - 03/30/2020 Provider: Diagnosis: 1 cap po bid for depression from [facility] d/c meds Gabapentin 300 MG Oral Capsule 03/06/2020 - 03/30/2020 Provi dmitry: Diagnosis: 1 cap po tid for polyneuropathy from [facility] d/c me ds Keppra 750 MG Oral Tablet 03/06/2020 - 03/30/2020 Provider: Diagnosis: 1 tab po BID for seizures from [facility] d/c meds Melatonin 5 MG Oral Tablet 03/06/2020 - 03/30/2020 Provider: Diagnosis: 5 mg po qhs for insomnia from [facility] d/c meds Mirapex 1 MG Oral Tablet 03/06/2020 - 03/30/2020 Provider: Diagnosis: 1 tab po bid for rls from [facility] d/c meds Protonix 40 MG Oral Tablet Delayed Release 03/06/2020 - 06/2019 Provider: Diagnosis: 40 mg po qam [facility] HYDROcodone-Acetaminophen 5-325 MG Oral Tablet 03/04/2020 - 03/30/2020 Provider: Kami Delarosa MD Diagnosis: Other chronic pain Three times [...] of right lower limb 1 every day Xarelto 20 MG Oral Tablet 07/08/2019 - 07/29/2019 Provider: Arpit Khan MD Diagnosis: Other sequelae of ce rebral infarction 1 po every day HYDROcodone-Acetaminophen 5-325 MG Oral Tablet 07/08/2019 - 07/29/2019 Provider: Aript Khan MD Diagnosis: Other sequelae of ce rebral infarction Three times a day as needed for pain right hand; MDD #3 Xarelto 20 MG Oral Tablet 06/17/2019 - [...] Recorded Vital Signs Includes: Vital Signs from 04/28/2019 through 04/28/2020 Vital Name 04/28/2020 09:42A 03/30/2020 01:06P 07/29/2019 12:56P 07/22/2019 10:20A 07/08/2019 11:53A Blood Pressure Sitting L 130/80 122/70 100/60 118/66 140/80 BP Cuff Size Large Regular Large Large Regular Pulse Rate-Sitting (bpm) 99 78 76 92 92 Respiration Rate (breaths/min) 24 22 20 24 20 Temp-Temporal 97.6 96.8 Oxygen Saturation (%) 98 94 96 91 96 Flow Rate (l/min) (None (Room Air)) (None (Room Air)) (None (Room Air)) FiO2 (%) 21 21 21 Temp-Tympanic (F) 97.8 98.8 Note: Measured calf circum ferance. Left 15.5 in in diameter. Right, 20 inches in diameter. 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 ~Was in care home in [place] x 2 years. ~Surgery- tonsillectomy 05/27/2019 History [...] Mental Status not supported for this document type Description Oriented to time, place, and person Functional Status Functional Status not supported for [...] - 12:00AM Active Encounters Includes: Encounters from 04/28/2019 through 04/28/2020 Encounter Provider Location Date Check-In Time Check-Out Time D iagnosis EXTENDED VISIT Kami Delarosa MD Family Medicine [facility], 9:40AM 03/30/2020 11:59PM Chronic Pain, Atrial Fibrill ation Chronic, Late Effects of Cerebral Infarction Aphasia EXTENDED VISIT Kami Delarosa MD [facility] 1:03PM 2:36PM Chronic Kidney Disease Stage 3, Atrial Fibrillation Chronic, Stroke Syndrome, Late Effects of Cerebral Infarction Aphasia, Edema RX UPDATE Kami Delarosa MD 03/04/2020 07/29/2019 3:49PM 11:59PM EXTENDED VISIT Arpit Khan MD [facility], 07/29/2019 12:45PM 2:31PM HOSP I/P F/U Arpit Khan MD [facility], 10:16AM 11:52AM Cellulitis of Right Lower Le g, Cellulitis of Left Lower Leg, Arterial Embolism Pulmonary Left EXTENDED VISIT Arpit Khan MD [facility], 07/08/2019 11:45AM 12:35PM Chronic Cutaneous Ulcer Veno us Stasis RX UPDATE Arpit Khan MD [facility], 05/27/2019 1:21PM 05/27/2019 11:59PM NEW PATIENT EVALUATION Arpit Khan MD [facility] 05/27/2019 10:47AM 12:01PM Stroke Syndrome, Hyp erlipidemia, Anxiety Disorder Nos, Essential Hypertension Benign, Depression Insurance Includes: Active Insurance Policies Plan Name Member ID Group # Subscriber Relationship Effective Da lucero 1 - Medicare ([employer]) [id number] Th zhang Rao Self 2 - Medicaid After Medicare [id number] Elias Salvador reese Advance Directives Includes: Current Advance DirectivesNo Advance Directives Recorded Health Concerns Includes: Active Health ConcernsNo Active Health Concerns Recorded Goals Includes: Active GoalsNo Active Goals Recorded Interventions Includes: Interventions for active GoalsNo Interventions Recorded Evaluations & Outcomes Includes: Evaluations & Outcomes for active GoalsNo Outcomes Recorded
--- OUTSIDE RECORDS SUMMARY | 2020-07-20 11:14 | CCD ---
Author Author [facility] Organization [facility] Address [address] [place] [address] Phone Care Team Providers Care Detector Car Operator Name Role Phone Isaura CARDOZA, Kami Stoll Unavailable [phone] Reason for Referral No Reason for Referral [...] systolic (conges tive) heart failure 05/12/20 Kami Delarosa MD *Labs [...] neoplasm of prostate 05/12/20 Kami Delarosa MD X-RAY Chest X-Ray HCC-Unspecified systolic (congestive) hea rt failure 05/12/20 Kami Delarosa MD *Labs (Manual) CULTURE & SENSITIVITY Cellulitis of other sites 04/29 08/15 Kami Delarosa MD Future Appointments Date Time Location Provider EXTENDED VISIT 06/01/2020 10:00AM [facility] EXTENDED VISIT 06/04/2020 1:30PM [facility] MD Findings Encounter Date Ordered follow-up visit 1 MO EXTENDED VISIT with Kami Delarosa MD 04/28/2020 Assessments Includes: Assessments for all patient encounters Findings Encounter Date Cellulitis EXTENDED VISIT with Kami Delarosa MD 1 07/07/2019 Persistent insomnia EXTENDED VISIT with Kami Delarosa MD 1 07/07/2019 Chronic atrial fibrillation EXTENDED [...] Ointment 05/06/2020 - 05/16/2020 Provi dmitry: Kami Delarosa MD Diagnosis: Cellulitis of other sites APPLY TO OPEN SORE BID X 10 DAYS Amoxicillin-Pot Clavulanate 875-125 MG Oral Tablet 0 - 05/16/2020 Provider: Kami Delarosa MD Diagnosis: Cellulitis of other sites 1 [...] 1 tab po BID for seizures from [facility] d/c meds Gabapentin 300 MG Oral Capsule [...] 1 cap po bid for depression from [facility] d/c meds Citalopram Hydrobromide 20 MG Oral [...] right leg qd, Fax to Deborah nuñez cadwor[employer] piping designer at [phone] Past Medications on file HYDROcodone-Acetaminophen 5-325 MG [...] left eye tid for dry eyes from [facility] d /c meds Xarelto 20 MG Oral Tablet 03/06/2020 - 03/30/2020 Provider: Diagnosis: 20 mg po qhs for dvt prevention/treatment from [facility] d/c meds Senna 8.6 MG Oral Tablet 03/06/2020 - 03/30/2020 Provider: Diagnosis: 1 tab po qhs for constipation from [facility] d/c med s Mirapex 1 MG Oral Tablet 03/06/2020 - 03/30/2020 Provider: Diagnosis: 1 tab po bid for rls from [facility] d/c meds Melatonin 5 MG Oral Tablet 03/06/2020 - 03/30/2020 Provider: Diagnosis: 5 mg po qhs for insomnia from [facility]/ meds Aspercreme Lidocaine 4% External Patch 03/06/2020 - 03/30/20 20 Provider: Diagnosis: apply to right hip topically every 24 ho urs, may use 2 oatches, reported from d/c from [facility] Lipitor 20 MG Oral Tablet 03/06/2020 - 03/30/2020 Provider: Diagnosis: 1 tab po QHS, from [facility] d/c meds busPIRone HCl 5 MG Oral Tablet 03/06/2020 - 03/30/2020 Provi dmitry: Diagnosis: tid po from [facility]/ meds Citalopram Hydrobromide 20 MG Oral Tablet 03/06/2020 - 03/30 Provider: Diagnosis: 1 tab po qd for depression from [facility]/ meds Cymbalta 30 MG Oral Capsule Delayed Release Particles 2019 - 03/30/2020 Provider: Diagnosis: 1 cap po bid for depression from [facility] d/c meds dilTIAZem HCl 30 MG Oral Tablet 03/06/2020 - 03/30/2020 Prov ider: Diagnosis: 30 mg po tid for b/p/pulse from [facility]/c meds Lasix 20 MG Oral Tablet 03/06/2020 - 03/30/2020 Provider: Diagnosis: 20 mg bid for edema from [facility]/c meds Gabapentin 300 MG Oral Capsule 03/06/2020 - 03/30/2020 Provi dmitry: Diagnosis: 1 cap po tid for polyneuropathy from [facility] d/c nj ds Keppra 750 MG Oral Tablet 03/06/2020 - 03/30/2020 Provider: Diagnosis: 1 tab po BID for seizures from [facility]/c meds Protonix 40 MG Oral Tablet Delayed Release 03/06/2020 - 06/2019 Provider: Diagnosis: 40 mg po qam for heartburn/indigestion from [facility] r d/c meds QUEtiapine Fumarate 50 MG Oral Tablet 03/06/2020 - 0 Provider: Diagnosis: 1/2 tab (25mg) po every hs for depressio n/anxiety/insomnia from [facility] d/c meds Acetaminophen 325 MG Oral Tablet 03/06/2020 - 03/30/2020 Pro vider: Diagnosis: 2 tabs po q 4 hrs for pain, not to excee d 3 gms in 24 hours from [facility] d/c meds HYDROcodone-Acetaminophen 5-325 MG Oral Tablet [...] Tablet 07/22/2019 - 07/29/2019 Provider : Arpit Khna MD Diagnosis: Cellulitis of right lower limb [...] Recorded Vital Signs Includes: Vital Signs from 05/06/2019 through 05/06/2020 Vital Name 05/06/2020 03:20P 04/28/2020 09:42A 03/30/2020 01:06P 07/29/2019 12:56P 07/22/2019 10:20A Blood Pressure Sitting L 124/76 130/80 122/70 100/60 118/66 BP Cuff Size Regular Large Regular Large Large Pulse Rate-Sitting (bpm) 95 99 78 76 92 Respiration Rate (breaths/min) 24 24 22 20 24 Temp-Temporal 97.8 97.6 96.8 Oxygen Saturation (%) 99 98 94 96 91 Flow Rate (l/min) (None (Room Air)) (None (Room Air)) (None (Room Air)) FiO2 (%) 21 21 21 Temp-Tympanic (F) 97.8 98.8 Note: L calf measurement 47 cm, L foot 31 cm, and R calf 37 cm , L foot 26 cm Measured calf circumferance. Left 15.5 in in diameter. Right, 20 inches in diameter. 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 ~Surgery- tonsillectomy 05/27/2019 History [...] - 12:00AM Active Encounters Includes: Encounters from 05/06/2019 through 05/06/2020 Encounter Provider Location Date Check-In Time Check-Out Time D iagnosis [facility] Cellulitis, Persistent Insom david EXTENDED VISIT Kami Delarosa MD [facility], 9:40AM 10:53AM Chronic Pain, Atrial Fibrill ation Chronic, Late Effects of Cerebral Infarction Aphasia EXTENDED VISIT Kami Delarosa MD [facility], 1:03PM 2:36PM Chronic Kidney Disease Stage 3, Atrial Fibrillation Chronic, Stroke Syndrome, Late Effects of Cerebral Infarction Aphasia, Edema RX UPDATE Kami Delarosa MD 03/04/2020 07/29/2019 3:49PM 11:59PM EXTENDED VISIT Arpit Khan MD [facility], 07/29/2019 12:45PM 2:31PM HOSP I/P F/U Arpit Khan MD [facility], 10:16AM 11:52AM Cellulitis of Right Lower Le g, Cellulitis of Left Lower Leg, Arterial Embolism Pulmonary Left EXTENDED VISIT Arpit Khan MD [facility], 07/08/2019 11:45AM 12:35PM Chronic Cutaneous Ulcer Veno us Stasis RX UPDATE Arpit Khan MD [facility], 05/27/2019 1:21PM 05/27/2019 11:59PM NEW PATIENT EVALUATION Arpit Khan MD [facility] 05/27/2019 10:47AM 12:01PM Stroke Syndrome, Hyp erlipidemia, Anxiety Disorder Nos, Essential Hypertension Benign, Depression Insurance Includes: Active Insurance Policies Plan Name Member ID Group # Subscriber Relationship Effective Da lucero 1 - Medicare ([employer]) [id number] [facility] [address] 2 - Medicaid After Medicare [id number] Elias Rao Madeleine f Advance Directives Includes: Current Advance DirectivesNo Advance Directives Recorded Health Concerns Includes: Active Health ConcernsNo Active Health Concerns Recorded Goals Includes: Active GoalsNo Active Goals Recorded Interventions Includes: Interventions for active GoalsNo Interventions Recorded Evaluations & Outcomes Includes: Evaluations & Outcomes for active GoalsNo Outcomes Recorded
--- OUTSIDE RECORDS SUMMARY | 2020-07-20 11:14 | CCD ---
Author Author [facility] Organization [facility] Address [address] [place] [address] Phone Care Team Providers Care Figure Model Name Role Phone Isaura CARDOZA, Kami Stoll Unavailable [phone] Reason for Referral No Reason for Referral [...] hea rt failure 05/12/20 Kami Delarosa MD Future Appointments Date Time Location Provider EXTENDED VISIT 06/01/2020 10:00AM [facility] EXTENDED VISIT 06/04/2020 1:30PM Family Medicine [facility] Kami Delarosa MD Findings Encounter Date Ordered [...] MD 03/30/2020 Edema EXTENDED VISIT with Kami Delraosa MD 1 05/30/2019 Late effects of cerebral [...] 1 tab po BID for seizures from [facility] d/c meds Gabapentin 300 MG Oral Capsule [...] 1 cap po bid for depression from [facility] d/c meds Citalopram Hydrobromide 20 MG Oral [...] right leg qd, Fax to Deborah nuñez RN Case Manager at [facility] [phone] Past Medications on file HYDROcodone-Acetaminophen 5-325 MG [...] po every hs for depressio n/anxiety/insomnia from [facility] d/c meds Xarelto 20 MG Oral Tablet 03/06/2020 - 03/30/2020 Provider: Diagnosis: 20 mg po qhs for dvt prevention/treatment from [facility] d/c meds Senna 8.6 MG Oral Tablet 03/06/2020 - 03/30/2020 Provider: Diagnosis: 1 tab po qhs for constipation from [facility] d/c med s Refresh Tears 0.5% Ophthalmic Solution 03/06/2020 - 03/30/20 20 Provider: Diagnosis: 2 drops to left eye tid for dry eyes from [facility] d /c meds Acetaminophen 325 MG Oral Tablet 03/06/2020 - 03/30/2020 Pro vider: Diagnosis: 2 tabs po q 4 hrs for pain, not to excee d 3 gms in 24 hours from [facility] d/c meds Lasix 20 MG Oral Tablet 03/06/2020 - 03/30/2020 Provider: Diagnosis: 20 mg bid for edema from [facility] d/c meds dilTIAZem HCl 30 MG Oral Tablet 03/06/2020 - 03/30/2020 Prov ider: Diagnosis: 30 mg po tid for b/p/pulse from [facility] d/c meds Aspercreme Lidocaine 4% External Patch 03/06/2020 - 03/30/20 20 Provider: Diagnosis: apply to right hip topically every 24 ho urs, may use 2 oatches, reported from d/c from [facility] Lipitor 20 MG Oral Tablet 03/06/2020 - 03/30/2020 Provider: Diagnosis: 1 tab po QHS, from [facility] d/ meds busPIRone HCl 5 MG Oral Tablet 03/06/2020 - 03/30/2020 Provi dmitry: Diagnosis: tid po from [facility] d/ meds Citalopram Hydrobromide 20 MG Oral Tablet 03/06/2020 - 03/30 Provider: Diagnosis: 1 tab po qd for depression from [facility]/ meds Cymbalta 30 MG Oral Capsule Delayed Release Particles 2019 - 03/30/2020 Provider: Diagnosis: 1 cap po bid for depression from [facility]/ meds Gabapentin 300 MG Oral Capsule 03/06/2020 - 03/30/2020 Provi dmitry: Diagnosis: 1 cap po tid for polyneuropathy from [facility] d/c me ds Keppra 750 MG Oral Tablet 03/06/2020 - 03/30/2020 Provider: Diagnosis: 1 tab po BID for seizures from [facility]/ meds Melatonin 5 MG Oral Tablet 03/06/2020 - 03/30/2020 Provider: Diagnosis: 5 mg po qhs for insomnia from [facility]/ meds Mirapex 1 MG Oral Tablet 03/06/2020 - 03/30/2020 Provider: Diagnosis: 1 tab po bid for rls from [facility]/c meds Protonix 40 MG Oral Tablet Delayed Release 03/06/2020 - 06/2019 Provider: Diagnosis: 40 mg po qam for heartburn/indigestion from [facility] d/c meds HYDROcodone-Acetaminophen 5-325 MG Oral Tablet [...] MG Oral Tablet 05/27/2019 - 07/29/2019 Provi dmityr: Diagnosis: HYDROcodone-Acetaminophen 5-325 MG Oral Tablet 05/27/2019 - 05/27/2019 Provider: Diagnosis: 1 Q 8 hours PRN MDD 3 Medications Administered Includes: Administered Medications in patient's chartNo Administered Medications Recorded Vital Signs Includes: Vital Signs from 04/30/2019 through 04/30/2020 Vital Name 04/28/2020 09:42A 03/30/2020 01:06P 07/29/2019 [...] whee l chair Results Includes: Results from 04/30/2019 through 04/30/2020No Results Recorded For Specified Dates History of [...] 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 ~Surgery- tonsillectomy 05/27/2019 History [...] - 12:00AM Active Encounters Includes: Encounters from 04/30/2019 through 04/30/2020 Encounter Provider Location Date Check-In Time Check-Out Time D iagnosis EXTENDED VISIT Kami Delarosa MD [facility], 9:40AM 10:53AM Chronic Pain, Atrial Fibrill ation Chronic, Late Effects of Cerebral Infarction Aphasia EXTENDED VISIT Kami Delarosa MD [facility], 1:03PM 2:36PM Chronic Kidney Disease Stage 3, Atrial Fibrillation Chronic, Stroke Syndrome, Late Effects of Cerebral Infarction Aphasia, Edema RX UPDATE Kami Delarosa MD 03/04/2020 07/29/2019 3:49PM 11:59PM EXTENDED VISIT Arpit Khan MD [facility], 07/29/2019 12:45PM 2:31PM HOSP I/P F/U Arpit Khan MD [facility], 10:16AM 11:52AM Cellulitis of Right Lower Le g, Cellulitis of Left Lower Leg, Arterial Embolism Pulmonary Left EXTENDED VISIT Arpit Khan MD [facility], 07/08/2019 11:45AM 12:35PM Chronic Cutaneous Ulcer Veno us Stasis RX UPDATE Arpit Khan MD [facility] 05/27/2019 1:21PM 05/27/2019 11:59PM NEW PATIENT EVALUATION Arpit Khan MD [facility], 05/27/2019 10:47AM 12:01PM Stroke Syndrome, Hyp erlipidemia, Anxiety Disorder Nos, Essential Hypertension Benign, Depression Insurance Includes: Active Insurance Policies Plan Name Member ID Group # Subscriber Relationship Effective Da lucero 1 - Medicare ([employer]) [id number] [facility] Self 2 - Medicaid After Medicare [id number] Elias Rao Madeleine f Advance Directives Includes: Current Advance DirectivesNo Advance Directives Recorded Health Concerns Includes: Active Health ConcernsNo Active Health Concerns Recorded Goals Includes: Active GoalsNo Active Goals Recorded Interventions Includes: Interventions for active GoalsNo Interventions Recorded Evaluations & Outcomes Includes: Evaluations & Outcomes for active GoalsNo Outcomes Recorded
--- OUTSIDE RECORDS SUMMARY | 2020-07-20 11:17 | CCD ---
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 Clubhouse Manager Name Role Phone ROXY ADAME MD Unavailable Unavailable ROXY ADAME MD Unavailable Unavailable ROXY ADAME MD Unavailable Unavailable ROXY ADAME MD Unavailable Unavailable ROXY ADAME MD Unavailable Unavailable ROXY ADAME MD Unavailable Unavailable ROXY ADAME MD Unavailable Unavailable ROXY ADAME MD Unavailable Unavailable ROXY ADAME MD Unavailable Unavailable ROXY ADAME MD Unavailable Unavailable ROXY ADAME MD Unavailable Unavailable ROXY ADAME MD Unavailable Unavailable ROXY ADAME MD Unavailable Unavailable ROXY ADAME MD Unavailable Unavailable ROXY ADAME MD Unavailable Unavailable CAPRICE, MAQBOOL NEYMAR MD Unavailable Unavailable CAPRICE, MAQBOOL NEYMAR MD Unavailable Unavailable CAPRICE, MAQBOOL NEYMAR MD Unavailable Unavailable CAPRICE, MAQBOOL NEYMAR MD Unavailable Unavailable CAPRICE, MAQBOOL NEYMAR MD Unavailable Unavailable CAPRICE, MAQBOOL NEYMAR MD Unavailable Unavailable CAPRICE, MAQBOOL NEYMAR MD Unavailable Unavailable CAPRICE, MAQBOOL NEYMAR MD Unavailable Unavailable CAPRICE, MAQBOOL NEYMAR MD Unavailable Unavailable CAPRICE, MAQBOOL NEYMAR MD Unavailable Unavailable CAPRICE, MAQBOOL NEYMAR MD Unavailable Unavailable CAPRICE, MAQBOOL NEYMAR MD Unavailable Unavailable CAPRICE, MAQBOOL NEYMAR MD Unavailable Unavailable CAPRICE, MAQBOOL NEYMAR MD Unavailable Unavailable CAPRICE, MAQBOOL NEYMAR MD Unavailable Unavailable CAPRICE, MAQBOOL NEYMAR MD Unavailable Unavailable CAPRICE, MAQBOOL NEYMAR MD Unavailable Unavailable CAPRICE, MAQBOOL NEYMAR MD Unavailable Unavailable CAPRICE, MAQBOOL NEYMAR MD Unavailable Unavailable CAPRICE, MAQBOOL NEYMAR MD Unavailable Unavailable CAPRICE, MAQBOOL NEYMAR MD Unavailable Unavailable CAPRICE, MAQBOOL NEYMAR MD Unavailable Unavailable CAPRICE, MAQBOOL NEYMAR MD Unavailable Unavailable CAPRICE, MAQBOOL NEYMAR MD Unavailable Unavailable CAPRICE, MAQBOOL NEYMAR MD Unavailable Unavailable CAPRICE, MAQBOOL NEYMAR MD Unavailable Unavailable CAPRICE, MAQBOOL NEYMAR MD Unavailable Unavailable CAPRICE, MAQBOOL NEYMAR MD Unavailable Unavailable CAPRICE, MAQBOOL NEYMAR MD Unavailable Unavailable CAPRICE, MAQBOOL NEYMAR MD Unavailable Unavailable CAPRICE, MAQBOOL NEYMAR MD Unavailable Unavailable CAPRICE, MAQBOOL NEYMAR MD Unavailable Unavailable CAPRICE, MAQBOOL NEYMAR MD Unavailable Unavailable CAPRICE, MAQBOOL NEYMAR MD Unavailable Unavailable CAPRICE, MAQBOOL NEYMAR MD Unavailable Unavailable CAPRICE, MAQBOOL NEYMAR MD Unavailable Unavailable CAPRICE, MAQBOOL NEYMAR MD Unavailable Unavailable CAPRICE, MAQBOOL NEYMAR MD Unavailable Unavailable CAPRICE, MAQBOOL NEYMAR MD Unavailable Unavailable CAPRICE, MAQBOOL NEYMAR MD Unavailable Unavailable CAPRICE, MAQBOOL NEYMAR MD Unavailable Unavailable CAPRICE, MAQBOOL NEYMAR MD Unavailable Unavailable CAPRICE, MAQBOOL NEYMAR MD Unavailable Unavailable CAPRICE, MAQBOOL NEYMAR MD Unavailable Unavailable CAPRICE, MAQBOOL NEYMAR MD Unavailable Unavailable CAPRICE, MAQBOOL NEYMAR MD Unavailable Unavailable CAPRICE, MAQBOOL NEYMAR MD Unavailable Unavailable CAPRICE, MAQBOOL NEYMAR MD Unavailable Unavailable CAPRICE, MAQBOOL NEYMAR MD Unavailable Unavailable CAPRICE, MAQBOOL NEYMAR MD Unavailable Unavailable CAPRICE, MAQBOOL NEYMAR MD Unavailable Unavailable CAPRICE, MAQBOOL NEYMAR MD Unavailable Unavailable CAPRICE, MAQBOOL NEYMAR MD Unavailable Unavailable CAPRICE, MAQBOOL NEYMAR MD Unavailable Unavailable CAPRICE, MAQBOOL NEYMAR MD Unavailable Unavailable CAPRICE, MAQBOOL NEYMAR MD Unavailable Unavailable CAPRICE, MAQBOOL NEYMAR MD Unavailable Unavailable CAPRICE, MAQBOOL NEYMAR MD Unavailable Unavailable CAPRICE, MAQBOOL NEYMAR MD Unavailable Unavailable CAPRICE, MAQBOOL NEYMAR MD Unavailable Unavailable CAPRICE, MAQBOOL NEYMAR MD Unavailable Unavailable CAPRICE, MAQBOOL NEYMAR MD Unavailable Unavailable CAPRICE, MAQBOOL NEYMAR MD Unavailable Unavailable CAPRICE, MAQBOOL NEYMAR MD Unavailable Unavailable CAPRICE, MAQBOOL NEYMAR MD Unavailable Unavailable CAPRICE, MAQBOOL NEYMAR MD Unavailable Unavailable CAPRICE, MAQBOOL NEYMAR MD Unavailable Unavailable CAPRICE, MAQBOOL NEYMAR MD Unavailable Unavailable CPARICE, MAQBOOL NEYMAR MD Unavailable Unavailable CAPRICE, MAQBOOL NEYMAR MD Unavailable Unavailable CAPRICE, MAQBOOL NEYMAR MD Unavailable Unavailable CAPRICE, MAQBOOL NEYMAR MD Unavailable Unavailable CAPRICE, MAQBOOL NEYMAR MD Unavailable Unavailable CAPRICE, MAQBOOL NEYMAR MD Unavailable Unavailable ERNST, GUICHO Unavailable Unavailable Haider, R Anupa MD Unavailable Unavailable Haider, R Anupa MD Unavailable Unavailable Haider, R Anupa MD Unavailable Unavailable Haider, R Anupa MD Unavailable Unavailable Haider, R Anupa MD Unavailable Unavailable Haider, R Anupa MD Unavailable Unavailable Haider, R Anupa MD Unavailable Unavailable Haider, R Anupa MD Unavailable Unavailable Haider, R Anupa MD Unavailable Unavailable Haider, R Anupa MD Unavailable Unavailable Haider, R Anupa MD Unavailable Unavailable Haider, R Anupa MD Unavailable Unavailable NASH, Raj HUTTON MD Unavailable Unavailable NASH, Raj HUTTON MD Unavailable Unavailable NASH, Raj HUTTON MD Unavailable Unavailable CHEPAK, ILONA Unavailable Unavailable CAPRICE, MAQBOOL NEYMAR MD Unavailable Unavailable CAPRICE, MAQBOOL NEYMAR MD Unavailable Unavailable CAPRICE, MAQBOOL NEYMAR MD Unavailable Unavailable CAPRICE, MAQBOOL NEYMAR MD Unavailable Unavailable CAPRICE, MAQBOOL NEYMAR MD Unavailable Unavailable CAPRICE, MAQBOOL NEYMAR MD Unavailable Unavailable CAPRICE, MAQBOOL NEYMAR MD Unavailable Unavailable CAPRICE, MAQBOOL NEYMAR MD Unavailable Unavailable CAPRICE, MAQBOOL NEYMAR MD Unavailable Unavailable CAPRICE, MAQBOOL NEYMAR MD Unavailable Unavailable CAPRICE, MAQBOOL NEYMAR MD Unavailable Unavailable CAPRICE, MAQBOOL NEYMAR MD Unavailable Unavailable CAPRICE, MAQBOOL NEYMAR MD Unavailable Unavailable CAPRICE, MAQBOOL NEYMAR MD Unavailable Unavailable CAPRICE, MAQBOOL NEYMAR MD Unavailable Unavailable CAPRICE, MAQBOOL NEYMAR MD Unavailable Unavailable CAPRICE, MAQBOOL NEYMAR MD Unavailable Unavailable CAPRICE, MAQBOOL NEYMAR MD Unavailable Unavailable CAPRICE, MAQBOOL NEYMAR MD Unavailable Unavailable CAPRICE, MAQBOOL NEYMAR MD Unavailable Unavailable CAPRICE, MAQBOOL NEYMAR MD Unavailable Unavailable CAPRICE, MAQBOOL NEYMAR MD Unavailable Unavailable CAPRICE, MAQBOOL NEYMAR MD Unavailable Unavailable CAPRICE, MAQBOOL NEYMAR MD Unavailable Unavailable CAPRICE, MAQBOOL NEYMAR MD Unavailable Unavailable CAPRICE, MAQBOOL NEYMAR MD Unavailable Unavailable CAPRICE, MAQBOOL NEYMAR MD Unavailable Unavailable CAPRICE, MAQBOOL NEYMAR MD Unavailable Unavailable CAPRICE, MAQBOOL NEYMAR MD Unavailable Unavailable CAPRICE, MAQBOOL NEYMAR MD Unavailable Unavailable CAPRICE, MAQBOOL NEYMAR MD Unavailable Unavailable CAPRICE, MAQBOOL NEYMAR MD Unavailable Unavailable CAPRICE, MAQBOOL NEYMAR MD Unavailable Unavailable CAPRICE, MAQBOOL NEYMAR MD Unavailable Unavailable CAPRICE, MAQBOOL NEYMAR MD Unavailable Unavailable CAPRICE, MAQBOOL NEYMAR MD Unavailable Unavailable CAPRICE, MAQBOOL NEYMAR MD Unavailable Unavailable CAPRICE, MAQBOOL NEYMAR MD Unavailable Unavailable CAPRICE, MAQBOOL NEYMAR MD Unavailable Unavailable CAPRICE, MAQBOOL NEYMAR MD Unavailable Unavailable CAPRICE, MAQBOOL NEYMAR MD Unavailable Unavailable CAPRICE, MAQBOOL NEYMAR MD Unavailable Unavailable CAPRICE, MAQBOOL NEYMAR MD Unavailable Unavailable CAPRICE, MAQBOOL NEYMAR MD Unavailable Unavailable CAPRICE, MAQBOOL NEYMAR MD Unavailable Unavailable CAPRICE, MAQBOOL NEYMAR MD Unavailable Unavailable CAPRICE, MAQBOOL NEYMAR MD Unavailable Unavailable CAPRICE, MAQBOOL NEYMAR MD Unavailable Unavailable CAPRICE, MAQBOOL NEYMAR MD Unavailable Unavailable CAPRICE, MAQBOOL NEYMAR MD Unavailable Unavailable CAPRICE, MAQBOOL NEYMAR MD Unavailable Unavailable CAPRICE, MAQBOOL NEYMAR MD Unavailable Unavailable CAPRICE, MAQBOOL NEYMAR MD Unavailable Unavailable CAPRICE, MAQBOOL NEYMAR MD Unavailable Unavailable CAPRICE, MAQBOOL NEYMAR MD Unavailable Unavailable CAPRICE, MAQBOOL NEYMAR MD Unavailable Unavailable CAPRICE, MAQBOOL NEYMAR MD Unavailable Unavailable CAPRICE, MAQBOOL NEYMAR MD Unavailable Unavailable CAPRICE, MAQBOOL NEYMAR MD Unavailable Unavailable CAPRICE, MAQBOOL NEYMAR MD Unavailable Unavailable CAPRICE, MAQBOOL NEYMAR MD Unavailable Unavailable CAPRICE, MAQBOOL NEYMAR MD Unavailable Unavailable CAPRICE, MAQBOOL NEYMAR MD Unavailable Unavailable CAPRICE, MAQBOOL NEYMAR MD Unavailable Unavailable CAPRICE, MAQBOOL NEYMAR MD Unavailable Unavailable CAPRICE, MAQBOOL NEYMAR MD Unavailable Unavailable CAPRICE, MAQBOOL NEYMAR MD Unavailable Unavailable CAPRICE, MAQBOOL NEYMAR MD Unavailable Unavailable CAPRICE, MAQBOOL NEYMAR MD Unavailable Unavailable CAPRICE, MAQBOOL NEYMAR MD Unavailable Unavailable CAPRICE, MAQBOOL NEYMAR MD Unavailable Unavailable CAPRICE, MAQBOOL NEYMAR MD Unavailable Unavailable CAPRICE, MAQBOOL NEYMAR MD Unavailable Unavailable CAPRICE, MAQBOOL NEYMAR MD Unavailable Unavailable SHAILA, TAYLER MD Unavailable Unavailable SHAILA, TAYLER MD Unavailable Unavailable SHAILA, TAYLER MD Unavailable Unavailable SHAILA, TAYLER MD Unavailable Unavailable SHAILA, TAYLER MD Unavailable Unavailable SHAILA, TAYLER MD Unavailable Unavailable SHAILA, TAYLER MD Unavailable Unavailable SHAILA, TAYLER MD Unavailable Unavailable SHAILA, TAYLER MD Unavailable Unavailable SHAILA, TAYLER MD Unavailable Unavailable SHAILA, TAYLER MD Unavailable Unavailable SHAILA, TAYLER MD Unavailable Unavailable SHAILA, TAYLER MD Unavailable Unavailable SHAILA, TAYLER MD Unavailable Unavailable SHAILA, TAYLER MD Unavailable Unavailable SHAILA, TAYLER MD Unavailable Unavailable SHAILA, TAYLER MD Unavailable Unavailable SHAILA, TAYLER MD Unavailable Unavailable SHAILA, TAYLER MD Unavailable Unavailable SHAILA, TAYLER MD Unavailable Unavailable SHAILA, TAYLER MD Unavailable Unavailable SHAILA, TAYLER MD Unavailable Unavailable SHAILA, TAYLER MD Unavailable Unavailable SHAILA, TAYLER MD Unavailable Unavailable SHAILA, TAYLER MD Unavailable Unavailable Isaura, Raza Mcclure MD Unavailable Unavailable Isaura, Raza Mcclure MD Unavailable Unavailable Isaura, Raza Mcclure MD Unavailable Unavailable Isaura, Raza Mcclure MD Unavailable Unavailable Isaura, Raza Mcclure MD Unavailable Unavailable Isaura, Raza Mcclure MD Unavailable Unavailable Isaura, Raza Mcclure MD Unavailable Unavailable Isaura, Raza Mcclure MD Unavailable Unavailable Isaura, Raza Mcclure MD Unavailable Unavailable Isaura, Raza Mcclure MD Unavailable Unavailable Isaura, Raza Mcclure MD Unavailable Unavailable Isaura, Raza Mcclure MD Unavailable Unavailable Isaura, Raza Mcclure MD Unavailable Unavailable Isaura, Raza Mcclure MD Unavailable Unavailable Isaura, Raza Mcclure MD Unavailable Unavailable Isaura, Raza Mcclure MD Unavailable Unavailable Isaura, Raza Mcclure MD Unavailable Unavailable Isaura, Raza Mcclure MD Unavailable Unavailable Isaura, Raza Mcclure MD Unavailable Unavailable Isaura, Raza Mcclure MD Unavailable Unavailable Isaura, Raza Mcclure MD Unavailable Unavailable Isaura, Raza Mcclure MD Unavailable Unavailable Isaura, Raza Mcclure MD Unavailable Unavailable Isaura, Raza Mcclure MD Unavailable Unavailable Isaura, Raza Mcclure MD Unavailable Unavailable Isaura, Raza Mcclure MD Unavailable Unavailable Isaura, Raza Mcclure MD Unavailable Unavailable Isaura, Raza Mcclure MD Unavailable Unavailable Isaura, Raza Mcclure MD Unavailable Unavailable Isaura, Raza Mcclure MD Unavailable Unavailable Isaura, Raza Mcclure MD Unavailable Unavailable Isaura, Raza Mcclure MD Unavailable Unavailable Isaura, Raza Mcclure MD Unavailable Unavailable Isaura, Raza Mcclure MD Unavailable Unavailable Isaura, Raza Mcclure MD Unavailable Unavailable Isaura, Raza Mcclure MD Unavailable Unavailable Isaura, Raza Mcclure MD Unavailable Unavailable Isaura, Raza Mcclure MD Unavailable Unavailable Isaura, Raza Mcclure MD Unavailable Unavailable Isaura, Raza Mcclure MD Unavailable Unavailable Isaura, Raza Mcclure MD Unavailable Unavailable Isaura, Raza Mcclure MD Unavailable Unavailable Isaura, Raza Mcclure MD Unavailable Unavailable Isaura, Raza Mcclure MD Unavailable Unavailable Isaura, Raza Mcclure MD Unavailable Unavailable Isaura, Raza Mcclure MD Unavailable Unavailable Isaura, Raza Mcclure MD Unavailable Unavailable Isaura, Raza Mcclure MD Unavailable Unavailable Isaura, Raza Mcclure MD Unavailable Unavailable Isauar, Raza Mcclure MD Unavailable Unavailable Isaura, Raza Mcclure MD Unavailable Unavailable Isaura, Raza Mcclure MD Unavailable Unavailable Isaura, Raza Mcclure MD Unavailable Unavailable Isaura, Raza Mcclure MD Unavailable Unavailable Isaura, Raza Mcclure MD Unavailable Unavailable Isaura, Raza Mcclure MD Unavailable Unavailable Isaura, Raza Mcclure MD Unavailable Unavailable Isaura, Raza Mcclure MD Unavailable Unavailable Isaura, Raza Mcclure MD Unavailable Unavailable Isaura, Raza Mcclure MD Unavailable Unavailable Isaura, Raza Mcclure MD Unavailable Unavailable Isaura, Raza Mcclure MD Unavailable Unavailable Isaura, Raza Mcclure MD Unavailable Unavailable Isaura, Raza Mcclure MD Unavailable Unavailable Isaura, Raza Mcclure MD Unavailable Unavailable Isaura, Raza Mcclure MD Unavailable Unavailable Isaura, Raza Mcclure MD Unavailable Unavailable Isaura, Raza Mcclure MD Unavailable Unavailable Isaura, Raza Mcclure MD Unavailable Unavailable Isaura, Raza Mcclure MD Unavailable Unavailable Isaura, Raza Mcclure MD Unavailable Unavailable Isaura, Raza Mcclure MD Unavailable Unavailable Isaura, Raza Mcclure MD Unavailable Unavailable Isaura, Raza Mcclure MD Unavailable Unavailable Kopko, Dodie Ramirez MD Unavailable Unavailable Kopko, Dodie Ramirez MD Unavailable Unavailable Kopko, Dodie Ramirez MD Unavailable Unavailable Kopko, Dodie Ramirez MD Unavailable Unavailable Kopko, Dodie Ramirez MD Unavailable Unavailable Kopko, Dodie Ramierz MD Unavailable Unavailable Kopko, Dodie Ramirez MD Unavailable Unavailable Kopko, Dodie Ramirez MD Unavailable Unavailable Kopko, Dodie Ramirez MD Unavailable Unavailable Kopko, Dodie Ramirez MD Unavailable Unavailable Kopko, Dodie Ramirez MD Unavailable Unavailable Kopko, Dodie Ramirez MD Unavailable Unavailable Kopko, Dodie Ramirez MD Unavailable Unavailable Kopko, Dodie Ramirez MD Unavailable Unavailable Kopko, Dodie Ramirez MD Unavailable Unavailable Kopko, Dodie Ramirez MD Unavailable Unavailable Kopko, Dodie Ramirez MD Unavailable Unavailable Kopko, Dodie Ramirez MD Unavailable Unavailable Kopko, Dodie Ramirez MD Unavailable Unavailable Kopko, Dodie Ramirez MD Unavailable Unavailable Kopko, Dodie Ramirez MD Unavailable Unavailable Kopko, Dodie Ramirez MD Unavailable Unavailable Kopko, Dodie Ramirez MD Unavailable Unavailable Kopko, Dodie Ramirez MD Unavailable Unavailable Kopko, Dodie Ramirez MD Unavailable Unavailable Kopko, Dodie Ramirez MD Unavailable Unavailable Kopko, Dodie Ramirez MD Unavailable Unavailable Kopko, Dodie Ramirez MD Unavailable Unavailable Kopko, Dodie Ramirez MD Unavailable Unavailable Kopko, Dodie Ramirez MD Unavailable Unavailable Kopko, Dodie Ramirez MD Unavailable Unavailable Kopko, Dodie Ramirez MD Unavailable Unavailable Kopko, Dodie Ramirez MD Unavailable Unavailable Kopko, A James MD Unavailable Unavailable Kopko, A James MD Unavailable Unavailable Kopko, A James MD Unavailable Unavailable Kopko, A James MD Unavailable Unavailable Kopko, A James MD Unavailable Unavailable Kopko, A James MD Unavailable Unavailable Kopko, A James MD Unavailable Unavailable Kopko, A James MD Unavailable Unavailable Kopko, A James MD Unavailable Unavailable Kopko, A James MD Unavailable Unavailable Kopko, A James MD Unavailable Unavailable Kopko, A James MD Unavailable Unavailable Kopko, A James MD Unavailable Unavailable Kopko, A James MD Unavailable Unavailable Kopko, A James MD Unavailable Unavailable Kopko, A James MD Unavailable Unavailable Kopko, A James MD Unavailable Unavailable Kopko, A James MD Unavailable Unavailable Kopko, A James MD Unavailable Unavailable Kopko, A James MD Unavailable Unavailable Kopko, A James MD Unavailable Unavailable Kopko, A James MD Unavailable Unavailable Kopko, A James MD Unavailable Unavailable Kopko, A James MD Unavailable Unavailable Kopko, A James MD Unavailable Unavailable Kopko, A James MD Unavailable Unavailable Kopko, A James MD Unavailable Unavailable Kopko, A James MD Unavailable Unavailable Kopko, A James MD Unavailable Unavailable Kopko, A James MD Unavailable Unavailable Kopko, A James MD Unavailable Unavailable Kopko, A James MD Unavailable Unavailable Kopko, A James MD Unavailable Unavailable Kopko, A James MD Unavailable Unavailable Kopko, A James MD Unavailable Unavailable Kopko, A James MD Unavailable Unavailable Kopko, A James MD Unavailable Unavailable Kopko, A James MD Unavailable Unavailable Kopko, A James MD Unavailable Unavailable Kopko, A James MD Unavailable Unavailable Kopko, A James MD Unavailable Unavailable Kopko, A James MD Unavailable Unavailable Kopko, A James MD Unavailable Unavailable Kopko, A James MD Unavailable Unavailable Kopko, A James MD Unavailable Unavailable Kopko, A James MD Unavailable Unavailable Kopko, A James MD Unavailable Unavailable Kopko, A James MD Unavailable Unavailable Kopko, A James MD Unavailable Unavailable Kopko, A James MD Unavailable Unavailable Kopko, A James MD Unavailable Unavailable Kopko, A James MD Unavailable Unavailable Kopko, A James MD Unavailable Unavailable Kopko, A James MD Unavailable Unavailable Kopko, A James MD Unavailable Unavailable Kopko, A James MD Unavailable Unavailable Kopko, A James MD Unavailable Unavailable Kopko, A James MD Unavailable Unavailable Kopko, A James MD Unavailable Unavailable Kopko, A James MD Unavailable Unavailable Kopko, A James MD Unavailable Unavailable Kopko, A James MD Unavailable Unavailable Kopko, A James MD Unavailable Unavailable Kopko, A James MD Unavailable Unavailable Kopko, A James MD Unavailable Unavailable Kopko, A James MD Unavailable Unavailable Kopko, A James MD Unavailable Unavailable Kopko, A James MD Unavailable Unavailable Kopko, A James MD Unavailable Unavailable Kopko, A James MD Unavailable Unavailable Kopko, A James MD Unavailable Unavailable Kopko, A James MD Unavailable Unavailable Kopko, A James MD Unavailable Unavailable Kopko, A James MD Unavailable Unavailable Kopko, A James MD Unavailable Unavailable Kopko, A James MD Unavailable Unavailable Kopko, A James MD Unavailable Unavailable Kopko, A James MD Unavailable Unavailable Kopko, A James MD Unavailable Unavailable Kopko, A James MD Unavailable Unavailable Kopko, A James MD Unavailable Unavailable Kopko, A James MD Unavailable Unavailable Kopko, A James MD Unavailable Unavailable Kopko, A James MD Unavailable Unavailable Kopko, A James MD Unavailable Unavailable Kopko, A James MD Unavailable Unavailable Kopko, A James MD Unavailable Unavailable Kopko, A James MD Unavailable Unavailable Kopko, A James MD Unavailable Unavailable Kopko, A James MD Unavailable Unavailable Kopko, A James MD Unavailable Unavailable Kopko, A James MD Unavailable Unavailable Kopko, A James MD Unavailable Unavailable Kopko, A James MD Unavailable Unavailable Kopko, A James MD Unavailable Unavailable Kopko, A James MD Unavailable Unavailable Kopko, A James MD Unavailable Unavailable Kopko, A James MD Unavailable Unavailable Kopko, A James MD Unavailable Unavailable Kopko, A James MD Unavailable Unavailable Kopko, A James MD Unavailable Unavailable Kopko, Dodie Ramirez MD Unavailable Unavailable Kopko, Dodie Ramirez MD Unavailable Unavailable Kopko, Dodie Ramirez MD Unavailable Unavailable Kopko, Dodie Ramirez MD Unavailable Unavailable Kopko, Dodie Ramirez MD Unavailable Unavailable Kopko, Dodie Ramirez MD Unavailable Unavailable Kopko, Dodie Ramirez MD Unavailable Unavailable Kopko, Dodie Ramirez MD Unavailable Unavailable Kopko, Dodie Ramirez MD Unavailable Unavailable Kopko, Dodie Ramirez MD Unavailable Unavailable Kopko, Dodie Ramirez MD Unavailable Unavailable Kopko, Dodie Ramirez MD Unavailable Unavailable Isaura, Raza Mcclure MD Unavailable Unavailable Isaura, Raza Mcclure MD Unavailable Unavailable Isaura, Raza Mcclure MD Unavailable Unavailable Isaura, Raza Mcclure MD Unavailable Unavailable Isaura, Raza Mcclure MD Unavailable Unavailable Isaura, Raza Mcclure MD Unavailable Unavailable Isaura, Raza Mcclure MD Unavailable Unavailable Isaura, Raza Mcclure MD Unavailable Unavailable Isaura, Raza Mcclure MD Unavailable Unavailable Isaura, Raza Mcclure MD Unavailable Unavailable Isaura, Raza Mcclure MD Unavailable Unavailable Isaura, Raza Mcclure MD Unavailable Unavailable Isaura, Raza Mcclure MD Unavailable Unavailable Isaura, Raza Mcclure MD Unavailable Unavailable Isaura, Raza Mcclure MD Unavailable Unavailable Isaura, Raza Mcclure MD Unavailable Unavailable Isaura, Raza Mcclure MD Unavailable Unavailable Isaura, Raza Mcclure MD Unavailable Unavailable Isaura, Raza Mcclure MD Unavailable Unavailable Isaura, Raza Mcclure MD Unavailable Unavailable Isaura, Raza Mcclure MD Unavailable Unavailable Isaura, Raza Mcclure MD Unavailable Unavailable Isaura, Raza Mcclure MD Unavailable Unavailable Isaura, Raza Mcclure MD Unavailable Unavailable Isaura, Raza Mcclure MD Unavailable Unavailable Isaura, Raza Mcclure MD Unavailable Unavailable Isaura, Raza Mcclure MD Unavailable Unavailable Isaura, Raza Mcclure MD Unavailable Unavailable Isaura, Raza Mcclure MD Unavailable Unavailable Isaura, Raza Mcclure MD Unavailable Unavailable Isaura, Raza Mcclure MD Unavailable Unavailable Isaura, Raza Mcclure MD Unavailable Unavailable Isaura, Raza Mcclure MD Unavailable Unavailable Isaura, Raza Mcclure MD Unavailable Unavailable Isaura, Raza Mcclure MD Unavailable Unavailable Isaura, Raza Mcclure MD Unavailable Unavailable Isaura, Raza Mcclure MD Unavailable Unavailable Isaura, Raza Mcclure MD Unavailable Unavailable Isaura, Raza Mcclure MD Unavailable Unavailable Isaura, Raza Mcclure MD Unavailable Unavailable Isaura, Raza Mcclure MD Unavailable Unavailable Isaura, Raza Mcclure MD Unavailable Unavailable Isaura, Raza Mcclure MD Unavailable Unavailable Isaura, Raza Mcclure MD Unavailable Unavailable Isaura, Raza Mcclure MD Unavailable Unavailable Isaura, Raza Mcclure MD Unavailable Unavailable Isaura, Raza Mcclure MD Unavailable Unavailable Isaura, Raza Mcclure MD Unavailable Unavailable Isaura, Raza Mcclure MD Unavailable Unavailable Isaura, Raza Mcclure MD Unavailable Unavailable Isaura, Raza Mcclure MD Unavailable Unavailable Isaura, Raza Mcclure MD Unavailable Unavailable Isaura, Raza Mcclure MD Unavailable Unavailable Isaura, Raza Mcclure MD Unavailable Unavailable Isaura, Raza Mcclure MD Unavailable Unavailable Isaura, Raza Mcclure MD Unavailable Unavailable Isaura, Raza Mcclure MD Unavailable Unavailable Isaura, Raza Mcclure MD Unavailable Unavailable Isaura, Raza Mcclure MD Unavailable Unavailable Isaura, Raza Mcclure MD Unavailable Unavailable Isaura, Raza Mcclure MD Unavailable Unavailable Isaura, Raza Mcclure MD Unavailable Unavailable Isaura, Raza Mcclure MD Unavailable Unavailable Isaura, Raza Mcclure MD Unavailable Unavailable Isaura, Raza Mcclure MD Unavailable Unavailable Isaura, Raza Mcclure MD Unavailable Unavailable Isaura, Raza Mcclure MD Unavailable Unavailable Isaura, Raza Mcclure MD Unavailable Unavailable Isaura, Raza Mcclure MD Unavailable Unavailable Isaura, Raza Mcclure MD Unavailable Unavailable Isaura, Raza Mcclure MD Unavailable Unavailable Isaura, Raza Mcclure MD Unavailable Unavailable Isaura, Raza Mcclure MD Unavailable Unavailable Isaura, Raza Mcclure MD Unavailable Unavailable Geurtsen, Aart Unavailable Unavailable Geurtsen, Aart Unavailable Unavailable Geurtsen, Aart Unavailable Unavailable Geurtsen, Aart Unavailable Unavailable Geurtsen, Aart Unavailable Unavailable Geurtsen, Aart Unavailable Unavailable Geurtsen, Aart Unavailable Unavailable Geurtsen, Aart Unavailable Unavailable Geurtsen, Aart Unavailable Unavailable Geurtsen, Aart Unavailable Unavailable Geurtsen, Aart Unavailable Unavailable Geurtsen, Aart Unavailable Unavailable Geurtsen, Aart Unavailable Unavailable Geurtsen, Aart Unavailable Unavailable Geurtsen, Aart Unavailable Unavailable Geurtsen, Aart Unavailable Unavailable Geurtsen, Aart Unavailable Unavailable Geurtsen, Aart Unavailable Unavailable ERNST, GUICHO Unavailable Unavailable Matthew, J Phong PA-C Unavailable Unavailable Matthew, J Phong PA-C Unavailable Unavailable Matthew, J Phong PA-C Unavailable Unavailable Matthew, J Phong PA-C Unavailable Unavailable Mathtew, J Phong PA-C Unavailable Unavailable Matthew, J Phong PA-C Unavailable Unavailable Matthew, J Phong PA-C Unavailable Unavailable Matthew, J Phong PA-C Unavailable Unavailable Matthew, J Phong PA-C Unavailable Unavailable Matthew, J Phong PA-C Unavailable Unavailable Matthew, J Phong PA-C Unavailable Unavailable GARJAYLAN MD Unavailable Unavailable GARJAYLAN MD Unavailable Unavailable GARJAYLAN MD Unavailable Unavailable GARJAYLAN MD Unavailable Unavailable GARJAYLAN ANDRADE MD Unavailable Unavailable GARJAYLAN ANDRADE MD Unavailable Unavailable GARJAYLAN MD Unavailable Unavailable GARJAYLAN ANDRADE MD Unavailable Unavailable GARJAYLAN MD Unavailable Unavailable GARJAYLAN ANDRADE MD Unavailable Unavailable GARJAYLAN ANDRADE MD Unavailable Unavailable GARJAYLAN ANDRADE MD Unavailable Unavailable GARJAYLAN ANDRADE MD Unavailable Unavailable GARJAYLAN MD Unavailable Unavailable GARJAYLAN ANDRADE MD Unavailable Unavailable GARJAYLAN MD Unavailable Unavailable GARJAYLAN MD Unavailable Unavailable GARJAYLAN MD Unavailable Unavailable GARJAYLAN MD Unavailable Unavailable GARJAYLAN ANDRADE MD Unavailable Unavailable GARJAYLAN ANDRADE MD Unavailable Unavailable GARJAYLAN ANDRADE MD Unavailable Unavailable GARJAYLAN ANDRADE MD Unavailable Unavailable GARJAYLAN MD Unavailable Unavailable GARJAYLAN MD Unavailable Unavailable GARJAYLAN MD Unavailable Unavailable GARJAYLAN MD Unavailable Unavailable GARJAYLAN ANDRADE MD Unavailable Unavailable GARJAYLAN ANDRADE MD Unavailable Unavailable GARJAYLAN MD Unavailable Unavailable GARJAYLAN MD Unavailable Unavailable GARJAYLAN MD Unavailable Unavailable GARJAYLAN MD Unavailable Unavailable GARJAYLAN MD Unavailable Unavailable GARJAYLAN MD Unavailable Unavailable GARJAYLAN ANDRADE MD Unavailable Unavailable GARJAYLAN ANDRADE MD Unavailable Unavailable GARJAYLAN MD Unavailable Unavailable GARJAYLAN MD Unavailable Unavailable GARJAYLAN MD Unavailable Unavailable GARJAYLAN MD Unavailable Unavailable GARJAYLAN MD Unavailable Unavailable GARJAYLAN MD Unavailable Unavailable GARJAYLAN MD Unavailable Unavailable GARJAYLAN MD Unavailable Unavailable GARJAYLAN MD Unavailable Unavailable GARJAYLAN MD Unavailable Unavailable GARJAYLAN MD Unavailable Unavailable GARJAYLAN MD Unavailable Unavailable GAR JAYLAN MD Unavailable Unavailable GAR JAYLAN MD Unavailable Unavailable GAR JAYLAN MD Unavailable Unavailable GAR JAYLAN MD Unavailable Unavailable GAR, JAYLAN MD Unavailable Unavailable GAR JAYLAN MD Unavailable Unavailable GAR, JAYLAN MD Unavailable Unavailable GAR JAYLAN MD Unavailable Unavailable GAR JAYLAN MD Unavailable Unavailable GAR JAYLAN MD Unavailable Unavailable GAR JAYLAN MD Unavailable Unavailable GAR JAYLAN MD Unavailable Unavailable GAR JAYLAN MD Unavailable Unavailable GAR JAYLAN MD Unavailable Unavailable GAR, JAYLAN MD Unavailable Unavailable GAR JAYLAN MD Unavailable Unavailable GAR JAYLAN MD Unavailable Unavailable GAR, JAYLAN MD Unavailable Unavailable JAYLAN GAR MD Unavailable Unavailable JAYLAN GAR MD Unavailable Unavailable Arpit Khan MD Unavailable Unavailable Arpit Khan MD Unavailable Unavailable Arpit Khan MD Unavailable Unavailable Arpit Khan MD Unavailable Unavailable Arpit Khan MD Unavailable Unavailable Arpit Khan MD Unavailable Unavailable Arpit Khan MD Unavailable Unavailable Arpit Khan MD Unavailable Unavailable Arpit Khan MD Unavailable Unavailable Arpit Khan MD Unavailable Unavailable Arpit Khan MD Unavailable Unavailable Arpit Khan MD Unavailable Unavailable Arpit Khan MD Unavailable Unavailable Arpit Khan MD Unavailable Unavailable Arpit Khan MD Unavailable Unavailable Arpit Khan MD Unavailable Unavailable Arpit Khan MD Unavailable Unavailable Arpit Khan MD Unavailable Unavailable Arpit Khan MD Unavailable Unavailable Arpit Khan MD Unavailable Unavailable Arpit Khan MD Unavailable Unavailable Arpit Khan MD Unavailable Unavailable Arpit Khan MD Unavailable Unavailable Arpit Khan MD Unavailable Unavailable Arpit Khan MD Unavailable Unavailable Arpit Khan MD Unavailable Unavailable Arpit Khan MD Unavailable Unavailable Arpit Khan MD Unavailable Unavailable Arpit Khan MD Unavailable Unavailable Arpit Khan MD Unavailable Unavailable Arpit Khan MD Unavailable Unavailable Arpit Khan MD Unavailable Unavailable Arpit Khan MD Unavailable Unavailable Arpit Khan MD Unavailable Unavailable Arpit Khan MD Unavailable Unavailable Arpit Khan MD Unavailable Unavailable Arpit Khan MD Unavailable Unavailable Arpit Khan MD Unavailable Unavailable Arpit Khan MD Unavailable Unavailable Arpit Khan MD Unavailable Unavailable Arpit Khan MD Unavailable Unavailable Arpit Khan MD Unavailable Unavailable Arpit Khan MD Unavailable Unavailable Arpit Khan MD Unavailable Unavailable Arpit Khan MD Unavailable Unavailable Arpit Khan MD Unavailable Unavailable Bill, Arpit MD Unavailable Unavailable Bill, Arpit MD Unavailable Unavailable Bill, Arpit MD Unavailable Unavailable Bill, Arpit MD Unavailable Unavailable Bill, Arpit MD Unavailable Unavailable Bill, Arpit MD Unavailable Unavailable Bill, Arpit MD Unavailable Unavailable Bill, Arpit MD Unavailable Unavailable VENERUS, J ALEX MD Unavailable Unavailable VENERUS, J ALEX MD Unavailable Unavailable VENERUS, J ALEX MD Unavailable Unavailable VENERUS, J ALEX MD Unavailable Unavailable VENERUS, J ALEX MD Unavailable Unavailable VENERUS, J ALEX MD Unavailable Unavailable VENERUS, J ALEX MD Unavailable Unavailable VENERUS, J ALEX MD Unavailable Unavailable VENERUS, J ALEX MD Unavailable Unavailable NO, PCP Unavailable Unavailable Re-disclosure Warning The records that you are about to access may contain information from federally-assisted alcohol or drug abuse programs. If such information is present, then the following federally mandated warning applies: This information has been disclosed to you from records protected by federal confidentiality rules (42 CFR part 2). The federal rules prohibit you from making any further disclosure of this information unless further disclosure is expressly permitted by the written consent of the person to whom it pertains or as otherwise permitted by 42 CFR part 2. A general authorization for the release of medical or other information is NOT sufficient for this purpose. The Federal rules restrict any use of the information to criminally investigate or prosecute any alcohol or drug abuse patient.The records that you are about to access may contain highly sensitive health information, the redisclosure of which is protected by Article 27-F of the [facility] Public Health law. If you continue you may have access to information: Regarding HIV / AIDS; Provided by facilities licensed or operated by the [facility] Office of Mental Health; or Provided by the [facility] Office for People With Developmental Disabilities. If such information is present, then the following [facility] mandated warning applies: This information has been disclosed to you from confidential records which are protected by state law. State law prohibits you from making any further disclosure of this information without the specific written consent of the person to whom it pertains, or as otherwise permitted by law. Any unauthorized further disclosure in violation of state law may result in a fine or senior living sentence or both. A general authorization for the release of medical or other information is NOT sufficient authorization for further disc losure. Allergies and Adverse Reactions Type Description Substance Reaction Status Data Source(s ) No Known Drug Allergies No Known Drug Allergies [facility] Propensity to adverse reactions BUPROPION Bupropion Acti ve [facility] Propensity to adverse reactions SIMVASTATIN Simvastatin Ac tive [facility] Propensity to adverse reactions PAROXETINE HCL Paroxetine Hcl Active [facility] Propensity to adverse reactions DIVALPROEX SODIUM Divalproex Sodium Active [facility] BRANDNAME PAXIL PAXIL [facility] Drug allergy DIVALPROEX SODIUM DIVALPROEX SODIUM [facility] BRANDNAME WELLBUTRIN WELLBUTRIN [facility] Drug allergy SIMVASTATIN SIMVASTATIN [facility] Drug allergy Depakote Depakote twitching legs Active [place] ([facility]) Drug allergy Paxil Paxil eye swelling Active [place] ([facility]) Drug allergy Wellbutrin Wellbutrin eye swelling Active [place] ([facility]) Drug allergy Zocor Zocor muscle aches Active [place] ([facility]) Drug allergy Depakote Depakote twitching legs Active [place] ([facility]) Drug allergy Paxil Paxil eye swelling Active [place] ([facility]) Drug allergy Wellbutrin Wellbutrin eye swelling Active [place] ([facility]) Drug allergy Zocor Zocor muscle aches Active [place] ([facility]) Drug allergy Depakote Depakote twitching legs Active [place] ([facility]) Drug allergy Paxil Paxil eye swelling Active [place] ([facility]) Drug allergy Wellbutrin Wellbutrin eye swelling Active [place] ([facility]) Drug allergy Zocor Zocor muscle aches Active [place] [facility]) Drug allergy Depakote Depakote twitching legs Active [place] ([facility]) Drug allergy Paxil Paxil eye swelling Active [place] ([facility]) Drug allergy Wellbutrin Wellbutrin eye swelling Active [place] [facility]) Drug allergy Zocor Zocor muscle aches Active [place] [facility]) Drug allergy Depakote Depakote twitching legs Active [place] ([facility]) Drug allergy Paxil Paxil eye swelling Active [place] ([facility]) Drug allergy Wellbutrin Wellbutrin eye swelling Active [place] [facility]) Drug allergy Zocor Zocor muscle aches Active [place] ([facility]) Drug allergy Depakote Depakote twitching legs Active [place] [facility]) Drug allergy Paxil Paxil eye swelling Active [place] ([facility]) Drug allergy Wellbutrin Wellbutrin eye swelling Active [place] [facility]) Drug allergy Zocor Zocor muscle aches Active [place] ([facility]) Drug allergy Depakote 125 MG Oral Tablet Delayed Rele ase Depakote 125 MG Oral Tablet, enteric coated twitching legs Active [place] ([facility]) Drug allergy Paxil 10 MG Oral Tablet Paxil 10 MG Oral Tablet eye sw elling Active [place] ([facility]) Drug allergy Wellbutrin 100 MG Oral Tablet Wellbutrin 100 MG Oral Tablet eye swelling Active [place] ([facility]) Drug allergy Zocor 10 MG Oral Tablet Zocor 10 MG Oral Tablet muscle aches Active [place] ([facility]) Drug allergy Depakote 125 MG Oral Tablet Delayed Rele ase Depakote 125 MG Oral Tablet, enteric coated twitching legs Active [place] ([facility]) Drug allergy Paxil 10 MG Oral Tablet Paxil 10 MG Oral Tablet eye sw elling Active [place] ([facility]) Drug allergy Wellbutrin 100 MG Oral Tablet Wellbutrin 100 MG Oral Tablet eye swelling Active [place] ([facility]) Drug allergy Zocor 10 MG Oral Tablet Zocor 10 MG Oral Tablet muscle aches Active [place] ([facility]) Drug allergy Depakote 125 MG Oral Tablet Delayed Rele ase Depakote 125 MG Oral Tablet, enteric coated twitching legs Active [place] ([facility]) Drug allergy Paxil 10 MG Oral Tablet Paxil 10 MG Oral Tablet eye sw elling Active [place] ([facility]) Drug allergy Wellbutrin 100 MG Oral Tablet Wellbutrin 100 MG Oral Tablet eye swelling Active [place] ([facility]) Drug allergy Zocor 10 MG Oral Tablet Zocor 10 MG Oral Tablet muscle aches Active [place]) Drug allergy Depakote 125 MG Oral Tablet Delayed Rele ase Depakote 125 MG Oral Tablet, enteric coated twitching legs Active [place] ([facility]) Drug allergy Paxil 10 MG Oral Tablet Paxil 10 MG Oral Tablet eye sw elling Active [place] ([facility]) Drug allergy Wellbutrin 100 MG Oral Tablet Wellbutrin 100 MG Oral Tablet eye swelling Active [place] ([facility]) Drug allergy Zocor 10 MG Oral Tablet Zocor 10 MG Oral Tablet muscle aches Active [place] ([facility]) Family History Family Member Name Family Member Gender Family Member Status Date o f Status Description Data Source(s) Unknown Male Problem [facility] ([facility], ) () Encounters Encounter Providers Location Date Indications Data Source(s ) Outpatient Attender: NEYMAR HILARIO MD [facility] 07/14 02:45:00 PM EST [facility] (Neymar Hilario MD) Outpatient Attender: Nelson Radford MDConsultant: PCP NO 07/14/2020 02:10:00 PM EST - 07/14/2020 03:10:00 PM EST [facility] [place] [id number] [address] 06/29/2020 12:00:00 AM EST eCW1 ([facility]) [place] [address] [address] 06/24/2020 12:00:00 AM EST eCW1 ([facility]) Outpatient Attender: Nelson Chong masters: Nelson Radford MDConsultant: PCP NO 06/04/2020 03:06:00 PM EST - 06/04/2020 03:16:00 PM [facility] Outpatient<td ID="encounterTypeDescripti onID0">STANDARD OV</td><td>Nelson Radford MD</td><td>[facility],</td><td>05/14/2020</td><td>10:25AM</td><td>11:21AM</td><td><content ID="encounterDiagnosisID0-0">Cellulitis</content></td> Attender: Nelson Radford MD [facility], 05/14/2020 10:25:00 AM EST - 05/14/2020 11:21:00 AM EST Cellulitis [place] ([facility]) Cellulitis Outpatient Attender: Nelson Radford MDConsultant: PCP NO 05/14/2020 09:53:00 AM EST - 05/14/2020 10:53:00 AM EST [facility] Outpatient Attender: Nelson Chong masters: Nelson Radford MDConsultant: PCP NO 05/06/2020 03:43:00 PM EST - 05/06/2020 03:53:00 PM EST [facility] Patient discharged. Outpatient<td ID="encounterTypeDescripti onID1">EXTENDED VISIT</td><td>Nelson Radford MD</td><td>[facility]</td><td>05/06/2020</td><td>3:10PM</td><td>4:15PM</td><td><content ID="encounterDiagnosisID1-0">Cellulitis</content>, <content ID="encounterDiagnosisID1-1">Persistent Insomnia</content></td> Attender: Nelson Radford MD [facility] 05/06/2020 03:10:00 PM EST - 05/06/2020 04:15:00 PM EST Persistent InsomniaCellulitisPersistent InsomniaCellulitis [place] ([facility]) Persistent Insomnia Cellulitis Persistent Insomnia Cellulitis Outpatient<td ID="encounterTypeDescripti onID2">EXTENDED VISIT</td><td>Nelson Radford MD</td><td>[facility]</td><td>04/28/2020</td><td>9:40AM</td><td>10:53AM</td><td><content ID="encounterDiagnosisID2-0">Chronic Pain</content>, <content ID="encounterDiagnosisID2-1">Atrial Fibrillation Chronic</content>, <content ID="encounterDiagnosisID2-2">Late Effects of Cerebral Infarction Aphasia</content></td> Attender: Nelson Radford MD [facility] , 04/28/2020 09:40:00 AM EST - 04/28/2020 10:53:00 AM ES T Late Effects of Cerebral Infarction AphasiaAtrial Fibrillation ChronicChronic PainLate Effects of Cerebral Infarction AphasiaAtrial Fibrillation ChronicChronic PainLate Effects of Cerebral Infarction AphasiaAtrial Fibrillation ChronicChronic PainLate Effects of Cerebral Infarction AphasiaAtrial Fibrillation ChronicChronic Pain [place] ([facility]) Late Effects of Cerebral Infarction Apha bonnie Atrial Fibrillation Chronic Chronic Pain Late Effects of Cerebral Infarction Apha bonnie Atrial Fibrillation Chronic Chronic Pain Late Effects of Cerebral Infarction Apha bonnie Atrial Fibrillation Chronic Chronic Pain Late Effects of Cerebral Infarction Apha bonnie Atrial Fibrillation Chronic Chronic Pain Outpatient<td ID="encounterTypeDescripti onID3">EXTENDED VISIT</td><td>Nelson Radford MD</td><td>[facility],</td><td>03/30/2020</td><td>1:03PM</td><td>2:36PM</td><td><content ID="encounterDiagnosisID3-0">Chronic Kidney Disease Stage 3</content>, <content ID="encounterDiagnosisID3-1">Atrial Fibrillation Chronic</content>, <content ID="encounterDiagnosisID3-2">Stroke Syndrome</content>, <content ID="encounterDiagnosisID3-3">Late Effects of Cerebral Infarction Aphasia</content>, <content ID="encounterDiagnosisID3-4">Edema</content></td> Attender: Nelson Radford MD [facility], 03/30/2020 01:03:00 PM EST - 03/30/2020 02:36:00 PM EST EdemaLate Effects of Cerebral Infarction AphasiaStroke SyndromeAtrial Fibrillation ChronicChronic Kidney Disease Stage 3EdemaLate Effects of Cerebral Infarction AphasiaStroke SyndromeAtrial Fibrillat ion ChronicChronic Kidney Disease Stage 3EdemaLate Effects of Cerebral Infarction AphasiaStroke SyndromeAtrial Fibrillation ChronicChronic Kidney Disease Stage 3EdemaLate Effects of Cerebral Infarction AphasiaStroke SyndromeAtrial Fibrillation ChronicChronic Kidney Disease Stage 3EdemaLate Effects of Cerebral Infarction AphasiaStroke SyndromeAtrial Fibrillation ChronicChronic Kidney Disease Stage 3EdemaLate Effects of Cerebral Infarction AphasiaStroke SyndromeAtrial Fibrillation ChronicChronic Kidney Disease Stage 3 [place] ([facility]) Edema Late Effects of Cerebral Infarction Apha bonnie Stroke Syndrome Atrial Fibrillation Chronic Chronic Kidney Disease Stage 3 Edema Late Effects of Cerebral Infarction Apha bonnie Stroke Syndrome Atrial Fibrillation Chronic Chronic Kidney Disease Stage 3 Edema Late Effects of Cerebral Infarction Apha bonnie Stroke Syndrome Atrial Fibrillation Chronic Chronic Kidney Disease Stage 3 Edema Late Effects of Cerebral Infarction Apha bonnie Stroke Syndrome Atrial Fibrillation Chronic Chronic Kidney Disease Stage 3 Edema Late Effects of Cerebral Infarction Apha bonnie Stroke Syndrome Atrial Fibrillation Chronic Chronic Kidney Disease Stage 3 Edema Late Effects of Cerebral Infarction Apha bonnie Stroke Syndrome Atrial Fibrillation Chronic Chronic Kidney Disease Stage 3 Outpatient Attender: JAYLAN GAR MDConsultant: PCP NO 11/14/2019 07:47:00 AM EDT - 11/14/2019 07:57:00 AM EDT [facility] Rec[facility] Patient Referrer: TAYLER HOLLAND MD 11/04/2019 03 :23:29 PM EDT [facility] Outpatient Attender: JAYLAN GRA MDConsultant: PCP NO 10/31/2019 06:53:00 AM EDT - 10/31/2019 07:03:00 AM EDT [facility] Outpatient Attender: James Willams MDReferrer: TAYLER HOLLAND MD 10/29/2019 11:38:56 AM EDT [facility] Outpatient Attender: JAYLAN GAR MDConsultant: PCP NO 10/19/2019 09:08:00 AM EDT - 10/19/2019 09:18:00 AM EDT [facility] Outpatient Attender: JAYLAN GAR MDConsultant: PCP NO 09/19/2019 07:17:00 AM EDT - 09/19/2019 07:27:00 AM EDT [facility] Rec[facility] Patient Referrer: TAYLER HOLLAND MD 09/16/2019 12 :53:09 PM EDT [facility] Inpatient Attender: ROXY ADAME MD Attender: GUICHO Mejiaender: GUICHO Mejiaender: TAYLER HOLLAND MDAdmitter: TAYLER HOLLAND MDConsultant: James Willams MD [id number] 09/13/2019 10:40:00 PM EDT - 09/18/2019 01:42:00 PM EDT [facility] Patient discharged. Emergency Attender: ALEX VOGT MDConsultant: PCP NO 09/13/2019 04:36:00 PM EDT - 09/13/2019 08:15:00 PM EDT [facility] Patient discharged. Outpatient 08/08/2019 07:56:00 AM EDT [facility] Emergency Attender: ALEX VOGT MDConsultant: PCP NO 08/08/2019 07:38:00 AM EDT - 08/08/2019 01:19:00 PM [facility] In[facility] Attender: Chetan Maloney MDAt tender: Blayne SageAttender: RADAMES Bassder: ANNI NASH MDAdmitter: ANNI NASH MDReferrer: RADAMES VALENZUELA [id number] 08/08/2019 12:00:00 AM EDT - 08/15/2019 04:00:00 PM ED T Lower extremity Edema and Cellulitis; hx stroke with RT side residuals, pt is bed bound [facility] Lower extremity Edema and Cellulitis; hx stroke with RT side residuals, pt is bed bound Patient discharged. Outpatient<td ID="encounterTypeDescripti onID4">RX UPDATE</td><td>Nelson Radford MD</td><td></td><td>03/04/2020</td><td>07/29/2019 3:49PM</td><td>07/29/2019 11:59PM</td><td></td> Attender: Nelson Radford MD 07/29/2019 03:49:00 PM EST - 07/29/2019 11:59:00 PM EST [place] ([facility]) Outpatient<td ID="encounterTypeDescripti onID5">EXTENDED VISIT</td><td>Arpit Khan MD</td><td>[facility],</td><td>07/29/2019</td><td>12:45PM</td><td>2:31PM</td><td></td> Attender: Arpit Khan MD [facility], 07/29/2019 12:45:00 PM EST - 07/29/2019 02:31:00 PM EST [place] ([facility]) Outpatient 07/23/2019 08:14:00 AM EST [facility] Outpatient<td ID="encounterTypeDescripti onID6">HOSP I/P F/U</td><td>Arpit Khan MD</td><td>[facility],</td><td>07/22/2019</td><td>10:16AM</td><td>11:52AM</td><td><content ID="encounterDiagnosisID6-0">Cellulitis of Right Lower Leg</content>, <content ID="encounterDiagnosisID6-1">Cellulitis of Left Lower Leg</content>, <content ID="encounterDiagnosisID6-2">Arterial Embolism Pulmonary Left</content></td> Attender: Arpit Khan MD [facility], 07/22/2019 10:16:00 AM EST - 07/22/2019 11:52:00 AM EST Arterial Embolism Pulmonary LeftCellulit is of Left Lower LegCellulitis of Right Lower LegArterial Embolism Pulmonary LeftCellulitis of Left Lower LegCellulitis of Right Lower LegArterial Embolism Pulmonary LeftCellulitis of Left Lower LegCellulitis of Right Lower LegArterial Embolism Pulmonary LeftCellulitis of Left Lower LegCellulitis of Right Lower LegArterial Embolism Pulmonary LeftCellulitis of Left Lower LegCellulitis of Right Lower LegArterial Embolism Pulmonary LeftCellulitis of Left Lower LegCellulitis of Right Lower LegArterial Embolism Pulmonary LeftCellulitis of Left Lower LegCellulitis of Right Lower LegArterial Embolism Pulmonary LeftCellulitis of Left Lower LegCellulitis of Right Lower Leg [place] ([facility]) Arterial Embolism Pulmonary Left Cellulitis of Left Lower Leg Cellulitis of Right Lower Leg Arterial Embolism Pulmonary Left Cellulitis of Left Lower Leg Cellulitis of Right Lower Leg Arterial Embolism Pulmonary Left Cellulitis of Left Lower Leg Cellulitis of Right Lower Leg Arterial Embolism Pulmonary Left Cellulitis of Left Lower Leg Cellulitis of Right Lower Leg Arterial Embolism Pulmonary Left Cellulitis of Left Lower Leg Cellulitis of Right Lower Leg Arterial Embolism Pulmonary Left Cellulitis of Left Lower Leg Cellulitis of Right Lower Leg Arterial Embolism Pulmonary Left Cellulitis of Left Lower Leg Cellulitis of Right Lower Leg Arterial Embolism Pulmonary Left Cellulitis of Left Lower Leg Cellulitis of Right Lower Leg Inpatient Attender: NEYMAR Kaminski bailey: Phong BROWNonsultant: PCP NO 07/09/2019 02:00:00 PM [facility] [[email or web address] - 07/12/2019 02:35:00 PM [facility] Patient discharged. Outpatient 07/09/2019 10:14:00 AM [facility] Emergency Attender: Phong Castro PA-C 03/2020 09:20:00 AM [facility] [[email or web address] - 07/09/2019 02:00:00 PM [facility] Healthcare Outpatient<td ID="encounterTypeDescripti [email or web address]">EXTENDED VISIT</td><td>Arpit Khan MD</td><td>[facility]</td><td>07/08/2019</td><td>11:45AM</td><td>12:35PM</td><td><content ID="[email or web address]">Chronic Cutaneous Ulcer Venous Stasis</content></td> Attender: Arpit Khan MD [facility] 07/08/2019 11:45:00 AM [facility] [[email or web address] - 07/08/2019 12:35:00 PM ES T Chronic Cutaneous Ulcer Venous StasisChronic Cutaneous Ulcer Venous StasisChronic Cutaneous Ulcer Venous StasisChronic Cutaneous Ulcer Venous StasisChronic Cutaneous Ulcer Venous StasisChronic Cutaneous Ulcer Venous StasisChronic Cutaneous Ulcer Venous StasisChronic Cutaneous Ulcer Venous StasisChronic Cutaneous Ulcer Venous Stasis [place] 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 [address], [place] [address] 06/18/2019 12:00:00 AM EST [email or web address] ([facility]) Outpatient<td ID="encounterTypeDescripti [email or web address]">RX UPDATE</td><td>Arpit Khan MD</td><td>[facility]</td><td>06/17/2019</td><td>05/27/2019 1:21PM</td><td>05/27/2019 11:59PM</td><td></td> Attender: Arpit Khan MD [facility] 06/17/2019 01:21:00 PM EST - 05/27/2019 11:59:00 PM EST [place] ([facility]) Outpatient<td ID="encounterTypeDescripti onID9">NEW PATIENT EVALUATION</td><td>Arpit Khan MD</td><td>[facility]</td><td>05/27/2019</td><td>10:47AM</td><td>12:01PM</td><td><content ID="encounterDiagnosisID9-0">Stroke Syndrome</content>, <content ID="encounterDiagnosisID9-1">Hyperlipidemia</content>, <content ID="encounterDiagnosisID9-2">Anxiety Disorder Nos</content>, <content ID="encounterDiagnosisID9-3">Essential Hypertension Benign</content>, <content ID="encounterDiagnosisID9-4">Depression</content></td> Attender: Arpit Khan MD [facility] 05/27/2019 10:47:00 AM EST - 05/27/2019 12:01:00 PM EST DepressionEssential Hypertension BenignA nxiety Disorder NosHyperlipidemiaStroke SyndromeDepressionEssential Hypertension BenignAnxiety Disorder NosHyperlipidemiaStroke SyndromeDepressionEssential Hypertension BenignAnxiety Disorder NosHyperlipidemiaStroke SyndromeDepressionEssential Hypertension BenignAnxiety Disorder NosHyperlipidemiaStroke SyndromeDepressionEssential Hypertension BenignAnxiety Disorder NosHyperlipidemiaStroke SyndromeDepressionEssential Hypertension BenignAnxiety Disorder NosHyperlipidemiaStroke SyndromeDepressionEssential Hypertension BenignAnxiety Disorder NosHyperlipidemiaStroke SyndromeDepressionEssential Hypertension BenignAnxiety Disorder NosHyperlipidemiaStroke SyndromeDepression Essential Hypertension BenignAnxiety Disorder NosHyperlipidemiaStroke SyndromeDepressionEssential Hypertension BenignAnxiety Disorder NosHyperlipidemiaStroke Syndrome [place] ([facility]) Depression Essential Hypertension Benign Anxiety Disorder Nos Hyperlipidemia Stroke Syndrome Depression Essential Hypertension Benign Anxiety Disorder Nos Hyperlipidemia Stroke Syndrome Depression Essential Hypertension Benign Anxiety Disorder Nos Hyperlipidemia Stroke Syndrome Depression Essential Hypertension Benign Anxiety Disorder Nos Hyperlipidemia Stroke Syndrome Depression Essential Hypertension Benign Anxiety Disorder Nos Hyperlipidemia Stroke Syndrome Depression Essential Hypertension Benign Anxiety Disorder Nos Hyperlipidemia Stroke Syndrome Depression Essential Hypertension Benign Anxiety Disorder Nos Hyperlipidemia Stroke Syndrome Depression Essential Hypertension Benign Anxiety Disorder Nos Hyperlipidemia Stroke Syndrome Depression Essential Hypertension Benign Anxiety Disorder Nos Hyperlipidemia Stroke Syndrome Depression Essential Hypertension Benign Anxiety Disorder Nos Hyperlipidemia Stroke Syndrome Medications Medication Brand Name Start Date Product Form Dose Route Admi nistrative Instructions Pharmacy Instructions Status Indications Reaction Description Data Source(s) carvedilol 3.125 MG Oral Tablet Carvedilol 07/14/2020 12:00:00 AM EST ORAL active MEDENT (Neymar Hilario MD) Mupirocin 0.02 MG/MG Topical Ointment Mupirocin 2% Ext ernal Ointment Mupirocin 2% External Ointment 05/06/2020 12:00:00 AM EST active mupirocin 0.02 MG/MG Topical Ointment [place] ([facility]) Amoxicillin 875 MG / Clavulanate 125 MG Oral Tablet Amoxicillin-Pot Clavulanate 875-125 MG Oral Tablet Amoxicillin-Pot Clavulanate 875-125 MG Oral Tablet 05/06/2020 12:00:00 AM EST active amoxicillin 875 MG / clavulanate 125 MG Oral Tablet [place] ([facility]) Acetaminophen 325 MG / Hydrocodone Karissa trate 5 MG Oral Tablet HYDROcodone- Acetaminophen 5-325 MG Oral Tablet HYDROcodone-Acetaminophen 5-325 MG Oral Tablet 04/28/2020 12:00:00 AM EST active acetaminophen 325 MG / hydrocodone bitartrate 5 MG Oral Tablet [facility]) pantoprazole 40 MG Delayed Release Oral Tablet [Protonix] Protonix 40 MG Oral Tablet Delayed Release Protonix 40 MG Oral Tablet Delayed Release 04/06/2020 12:00:00 AM EST active pantoprazole 40 MG Delayed Release Oral Tablet [Protonix] [facility]) quetiapine 50 MG Oral Tablet QUEtiapine Fumarate 50 MG Oral Tablet QUEtiapine Fumarate 50 MG Oral Tablet 04/06/2020 12:00:00 AM EST active quetiapine 50 MG Oral Tablet [facility]) Melatonin 5 MG Oral Tablet Melatonin 5 MG Oral Tablet 2019 12:00:00 AM EST active melatonin 5 MG Or al Tablet [facility]) Pramipexole dihydrochloride 1 MG Oral Tablet [Mirapex] Mirapex 1 MG Oral Tablet Mirapex 1 MG Oral Tablet 04/06/2020 12:00:00 AM EST active pramipexole dihydrochloride 1 MG Oral Tablet [Mirapex] [facility]) atorvastatin 20 MG Oral Tablet [Lipitor] Lipitor 20 MG Oral Tablet Lipitor 20 MG Oral Tablet 04/06/2020 12:00:00 AM EST activ e atorvastatin 20 MG Oral Tablet [Lipitor] [facility]) Furosemide 20 MG Oral Tablet [Lasix] Lasix 20 MG Oral Tablet Lasix 20 MG Oral Tablet 04/06/2020 12:00:00 AM EST active furosemide 20 MG Oral Tablet [Lasix] [facility]) Acetaminophen 325 MG Oral Tablet Acetaminophen 325 MG Oral T ablet 04/06/2020 12:00:00 AM EST active acetamin ophen 325 MG Oral Tablet [facility]) Aspercreme Lidocaine 4% External Patch Aspercreme Lidocaine 4% External Patch 04/06/2020 12:00:00 AM EST active lidocaine 0.04 MG/MG Medicated Patch [facility]) Levetiracetam 750 MG Oral Tablet [Keppra] Keppra 750 M G Oral Tablet Keppra 750 MG Oral Tablet 04/06/2020 12:00:00 AM EST act mariana levetiracetam 750 MG Oral Tablet [Keppra] [facility]) gabapentin 300 MG Oral Capsule Gabapentin 300 MG Oral Capsule Gabapentin 300 MG Oral Capsule 04/06/2020 12:00:00 AM EST activ e gabapentin 300 MG Oral Capsule [facility]) Diltiazem Hydrochloride 30 MG Oral Tablet dilTIAZem HC l 30 MG Oral Tablet dilTIAZem HCl 30 MG Oral Tablet 04/06/2020 12:00:00 AM EST active diltiazem hydrochloride 30 MG Oral Tablet [facility]) Acetaminophen 325 MG / Hydrocodone Karissa trate 5 MG Oral Tablet HYDROcodone- Acetaminophen 5-325 MG Oral Tablet HYDROcodone-Acetaminophen 5-325 MG Oral Tablet 04/06/2020 12:00:00 AM EST aborted acetaminophen 325 MG / hydrocodone bitartrate 5 MG Oral Tablet [facility]) Carboxymethylcellulose Sodium 5 MG/ML Op hthalmic Solution Refresh Tears 0.5% Ophthalmic Solution Refresh Tears 0.5% Ophthalmic Solution 04/06/2020 12:0 0:00 AM EST aborted carboxym ethylcellulose sodium 5 MG/ML Ophthalmic Solution [facility]) duloxetine 30 MG Delayed Release Oral Ca psule [Cymbalta] Cymbalta 30 MG Oral Capsule Delayed Release Particles Cymbalta 30 MG Oral Capsule Delayed Rele ase Particles 04/06/2020 12:00:00 AM EST active duloxetine 30 MG Delayed Release Oral Capsule [Cymbalta] [facility]) Carboxymethylcellulose Sodium 5 MG/ML Op hthalmic Solution Refresh Tears 0.5% Ophthalmic Solution Refresh Tears 0.5% Ophthalmic Solution 04/06/2020 12:0 0:00 AM EST active carboxym ethylcellulose sodium 5 MG/ML Ophthalmic Solution [facility]) Citalopram 20 MG Oral Tablet Citalopram Hydrobromide 2 0 MG Oral Tablet Citalopram Hydrobromide 20 MG Oral Tablet 04/06/2020 12:00:00 AM EST active [facility]opram 20 MG [facility] buspirone hydrochloride 5 MG Oral Tablet busPIRone HCl 5 MG Oral Tablet busPIRone HCl 5 MG Oral Tablet 04/06/2020 12:00:00 AM EST 1 active buspirone hydrochloride 5 MG Oral Tablet [facility]) Senna 8.6 MG Oral Tablet Senna 8.6 MG Oral Tablet 04/06/2020 12:00: 00 AM EST active Senna [place] ([facility]) rivaroxaban 20 MG Oral Tablet [Xarelto] Xarelto 20 MG Oral Tablet Xarelto 20 MG Oral Tablet 04/06/2020 12:00:00 AM EST active rivaroxaban 20 MG Oral Tablet [Xarelto] [facility]) GLORIA Elastic Bandage 4" Miscellaneous GLORIA Elastic Bandage 4" Miscellaneous 04/06/2020 12:00:00 AM EST active GLORIA Elastic Bandage 4" [place] ([facility]) Acetaminophen 325 MG / Hydrocodone Karissa trate 5 MG Oral Tablet HYDROcodone- Acetaminophen 5-325 MG Oral Tablet HYDROcodone-Acetaminophen 5-325 MG Oral Tablet 03/30/2020 12:00:00 AM EST 1 aborted acetaminophen 325 MG / hydrocodone bitartrate 5 MG Oral Tablet [facility]) GLORIA Elastic Bandage 4" Miscellaneous [place] Elastic Bandage 4" Miscellaneous 03/16/2020 12:00:00 AM EDT aborted GLORIA Elastic Bandage 4" [place] ([facility]) Melatonin 5 MG Oral Tablet Melatonin 5 MG Oral Tablet 2019 12:00:00 AM EDT aborted melatonin 5 MG O ral Tablet [facility]) Acetaminophen 325 MG Oral Tablet Acetaminophen 325 MG Oral T ablet 03/06/2020 12:00:00 AM EDT aborted acetami nophen 325 MG Oral Tablet [facility]) quetiapine 50 MG Oral Tablet QUEtiapine Fumarate 50 MG Oral Tablet QUEtiapine Fumarate 50 MG Oral Tablet 03/06/2020 12:00:00 AM EDT aborted quetiapine 50 MG Oral Tablet [facility]) pantoprazole 40 MG Delayed Release Oral Tablet [Protonix] Protonix 40 MG Oral Tablet Delayed Release Protonix 40 MG Oral Tablet Delayed Release 03/06/2020 12:00:00 AM EDT aborted pantoprazole 40 MG Delayed Release Oral Tablet [Protonix] [place] ([facility]) Pramipexole dihydrochloride 1 MG Oral Tablet [Mirapex] Mirapex 1 MG Oral Tablet Mirapex 1 MG Oral Tablet 03/06/2020 12:00:00 AM EDT aborted pramipexole dihydrochloride 1 MG Oral Tablet [Mirapex] [place] ([facility]) rivaroxaban 20 MG Oral Tablet [Xarelto] Xarelto 20 MG Oral Tablet Xarelto 20 MG Oral Tablet 03/06/2020 12:00:00 AM EDT aborte d rivaroxaban 20 MG Oral Tablet [Xarelto] [facility]) Senna 8.6 MG Oral Tablet Senna 8.6 MG Oral Tablet 03/06/2020 12:00: 00 AM EDT aborted Senna [place] ([facility]) Carboxymethylcellulose Sodium 5 MG/ML Op hthalmic Solution Refresh Tears 0.5% Ophthalmic Solution Refresh Tears 0.5% Ophthalmic Solution 03/06/2020 12:0 0:00 AM EDT aborted carboxym ethylcellulose sodium 5 MG/ML Ophthalmic Solution [place] ([facility]) duloxetine 30 MG Delayed Release Oral Ca psule [Cymbalta] Cymbalta 30 MG Oral Capsule Delayed Release Particles Cymbalta 30 MG Oral Capsule Delayed Rele ase Particles 03/06/2020 12:00:00 AM EDT aborted duloxetine 30 MG Delayed Release Oral Capsule [Cymbalta] [place] ([facility]) Citalopram 20 MG Oral Tablet Citalopram Hydrobromide 2 0 MG Oral Tablet Citalopram Hydrobromide 20 MG Oral Tablet 03/06/2020 12:00:00 AM EDT aborted citalopram 20 MG Oral Tablet [facility] Furosemide 20 MG Oral Tablet [Lasix] Lasix 20 MG Oral Tablet Lasix 20 MG Oral Tablet 03/06/2020 12:00:00 AM EDT aborted furosemide 20 MG Oral Tablet [Lasix] [place] ([facility]) Diltiazem Hydrochloride 30 MG Oral Tablet dilTIAZem HC l 30 MG Oral Tablet dilTIAZem HCl 30 MG Oral Tablet 03/06/2020 12:00:00 AM EDT aborted diltiazem hydrochloride 30 MG Oral Tablet [facility]) Aspercreme Lidocaine 4% External Patch Aspercreme Lidocaine 4% External Patch 03/06/2020 12:00:00 AM EDT aborted lidocaine 0.04 MG/MG Medicated Patch [place] ([facility]) buspirone hydrochloride 5 MG Oral Tablet busPIRone HCl 5 MG Oral Tablet busPIRone HCl 5 MG Oral Tablet 03/06/2020 12:00:00 AM EDT 1 aborted buspirone hydrochloride 5 MG Oral Tablet [facility]) atorvastatin 20 MG Oral Tablet [Lipitor] Lipitor 20 MG Oral Tablet Lipitor 20 MG Oral Tablet 03/06/2020 12:00:00 AM EDT abort ed atorvastatin 20 MG Oral Tablet [Lipitor] [facility]) Levetiracetam 750 MG Oral Tablet [Keppra] Keppra 750 M G Oral Tablet Keppra 750 MG Oral Tablet 03/06/2020 12:00:00 AM EDT abo rted levetiracetam 750 MG Oral Tablet [Keppra] [facility]) gabapentin 300 MG Oral Capsule Gabapentin 300 MG Oral Capsule Gabapentin 300 MG Oral Capsule 03/06/2020 12:00:00 AM EDT 1 abort ed gabapentin 300 MG Oral Capsule [facility]) Acetaminophen 325 MG / Hydrocodone Karissa trate 5 MG Oral Tablet HYDROcodone- Acetaminophen 5-325 MG Oral Tablet HYDROcodone-Acetaminophen 5-325 MG Oral Tablet 03/04/2020 12:00:00 AM EDT 1 aborted acetaminophen 325 MG / hydrocodone bitartrate 5 MG Oral Tablet [facility]) pantoprazole 40 MG Delayed Release Oral Tablet pantoprazole (PROTONIX) 40 MG tablet pantoprazole (PROTONIX) 40 MG tablet 09/19/2019 12:00:00 AM EDT 40 mg Oral active Gastroesophageal Reflux Disease Take 1 tablet (40 mg total) by mouth daily [facility] Gastroesophageal Reflux Disease POLYETHYLENE GLYCOL 3350 142 MG/ML Oral Solution polyethylene glycol (GLYCOLAX) packet polyethylene glycol (GLYCOLAX) packet 09/19/2019 12:00:00 AM EDT 17 g Oral aborted Take 17 g by mouth d sariahy [facility] lidocaine (ASPERCREME) 4 % [facility] [address] 09/19/2019 12:00:00 AM EDT 2 {patch} Transdermal active Place 2 patches on the skin daily [facility] Docusate Sodium 50 MG / sennosides, DETENTION 8.6 MG Oral Tablet senna-docusate (PERICOLACE) 8.6-50 MG senna-docusate (PERICOLACE) 8.6-50 MG 09/18/2019 12:00 :00 AM EDT 1 {tbl} Oral aborted Take 1 tablet by mouth nightly [facility] Ondansetron 4 MG Disintegrating Oral Tab let ondansetron (ZOFRAN-ODT) 4 MG disintegrating tablet ondansetron (ZOFRAN-ODT) 4 MG disintegrating tablet 09/18/2019 12:00:00 AM EDT 4 mg Oral active Take 1 tablet (4 mg total) by mouth every 6 (six) hours as needed for nausea [facility] ferric gluconate (FERRLECIT) 125 mg in sodium chloride 0.9% (NS) 100 mL IVPB 09/17/2019 11:00:00 AM EDT 125 mg Intravenous completed 125 mg, Intravenous, Administer over 60 Minutes, Once, Mon09/17/19 at 1100, For 1 dose
Give 48 hours after first dose. D/C if baseline iron Sat > 20%. Maximum 250mg per admission Med Message pharmacy if/when dose is needed
[facility] Medication administered onsite Bisacodyl 10 MG Rectal Suppository bisacodyl (DULCOLAX ) suppository 10 mg bisacodyl (DULCOLAX) suppository 10 mg 09/17/2019 09:00:00 AM EDT 10 mg Rectal active 10 mg, Rectal, Daily, First dose on Mon09/17/19 at 0900, Post- op
Hold for BM
[facility] Medication administered onsite rivaroxaban 20 MG Oral Tablet rivaroxaban (XARELTO) ta blet 20 mg rivaroxaban (XARELTO) tablet 20 mg 09/16/2019 05:00:00 PM EDT 20 mg Oral active 20 mg, Oral, Daily with dinner, First dose on 09/16/19 at 1700 [facility] Medication administered onsite POLYETHYLENE GLYCOL 3350 142 MG/ML Oral Solution polyethylene glycol (GLYCOLAX) packet 17 g polyethylene glycol (GLYCOLAX) packet 17 g 09/16/2019 09:00:00 AM EDT 17 g Oral active 17 g, Or al, Daily, First dose on Mon09/16/19 at 0900, Post-op
Start POD 1
[facility] Medication administered onsite Calcium Carbonate 1250 MG / Cholecalcife rol 200 UNT Oral Tablet calcium-vitamin D (OSCAL-500) 500-200 MG-UNIT per tablet 1 tablet calcium-vitamin D (OSCAL-500) 500-200 MG-UNIT per tablet 1 tablet 09/15/2019 09:00:00 PM EDT 1 {tbl } Oral active 1 tablet, Oral, 2 times daily, First dose on 09/15/19 at 2100, Post-op [facility] Medication administered onsite Docusate Sodium 50 MG / sennosides, DETENTION 8.6 MG Oral Tablet senna-docusate (PERICOLACE) 8.6-50 MG 2 tablet senna-docusate (PERICOLACE) 8.6-50 MG 2 tablet 09/15/2019 09:00:00 PM EDT 2 {tbl} Oral active 2 tablet, Oral, Nightly, First dose on 09/15/19 at 2100, Post-op
hold for loose stools
[facility] Medication administered onsite sodium chloride 0.9% (NS) bolus 250 mL [id number] 0 05:00:00 PM EDT 250 mL Intravenous completed 250 mL, In travenous, Administer over 1 Hours, Once, 09/15/19 at 1700, For 1 dose [facility] Medication administered onsite Vitamin B 12 1 MG/ML Injectable Solution cyanocobalami n injection 1,000 mcg cyanocobalamin injection 1,000 mcg 09/15/2019 04:00:00 PM EDT 10 00 ug Intramuscular completed 1,000 mcg, Intramuscular, Once, 09/15/19 at 1600, For 1 dose, Post-op
If not given pre-op
[facility] Medication administered onsite DAILY JESSA (THERAGRAN) 1 tablet [id number] 09/15/2019 04:00:00 PM EDT 1 {tbl} Oral active 1 tablet, Oral, Daily, First dose on 09/15/19 at 1600, Post-op [facility] Medication administered onsite Acetaminophen 500 MG Oral Tablet acetaminophen (TYLENO L) tablet 500 mg acetaminophen (TYLENOL) tablet 500 mg 09/15/2019 03:00:00 PM EDT 50 0 mg Oral active 500 mg, Oral, E very 8 hours (scheduled), First dose on 09/15/19 at 1500, Post-op [facility] Medication administered onsite sodium chloride 0.9% (NS) infusion [id number] 09/15/2019 03:00:00 P M EDT Intravenous active at 75 mL/hr, Intravenous, Continuous, Starting 09/15/19 at 1500, Post-op [facility] Medication administered onsite cefazolin (ANCEF) injection 2 g 09/15/2019 03:00:00 PM EDT 2 g Intravenous completed Perioperative Pharmacoprophylaxis 2 g, Intravenous, Administer over 6 Minutes, Every 8 hours (relative), First dose on 09/15/19 at 1500, For 3 doses, Post-op
Start 4 hours after pre-op dose, then every 8 hours x 2 doses. Time pre-op dose hunRN may administer IV push or infuse this medication through syringe adapter set ref [id number]. Flush line after use
[facility] Perioperative Pharmacoprophylaxis Medication administered onsite ondansetron (ZOFRAN-ODT) disintegrating tablet 4 mg 09/15/2019 02:34:51 PM EDT 4 mg Oral active [Order 1 Start] Name: ondansetron (ZOFRAN-ODT) disintegrating tablet 4 mg Signed Summary: 4 mg, Oral, Every 6 hours PRN, nausea, Starting 09/15/19 at 1434, Post-op [Order 1 End] [Order 2 Start] Na me: ondansetron (ZOFRAN) injection 4 mg Signed Summary: 4 mg, Intravenous, Every 6 hours PRN, nausea, Starting 09/15/19 at 1434, Post-op [Order 2 End] [facility] Medication administered onsite Acetaminophen 325 MG / Hydrocodone Karissa trate 5 MG Oral Tablet HYDROcodone- acetaminophen (NORCO) 5-325 MG per tablet 0.5 tablet HYDROcodone-acetaminophen (NORCO) 5-325 MG per tablet 0.5 tablet 09/15/2019 02:34:50 PM EDT 0.5 {tbl} Oral active 0.5 tablet, Or al, Every 4 hours PRN, moderate pain (4-6), Starting 09/15/19 at 1434, For 7 days, Post-op [facility] Medication administered onsite fentaNYL Citrate (PF) (SUBLIMAZE) injection 25 mcg [id number] 09/15/2019 02:34:50 PM EDT 25 ug Intravenous active 25 mcg, Intravenous, Every 3 hours PRN, severe pain (7-10), Starting 09/15/19 at 1434, For 7 days, Post- op
For breakthrough pain not relieved by oral pain medication
[facility] Medication administered onsite Acetaminophen 325 MG / Hydrocodone Karissa trate 5 MG Oral Tablet HYDROcodone- acetaminophen (NORCO) 5-325 MG per tablet 1 tablet HYDROcodone-acetaminophen (NORCO) 5-325 MG per tablet 1 tablet 09/15/2019 02:34:50 PM EDT 1 { tbl} Oral active 1 tablet, Oral, Every 4 hours PRN, severe pain (7-10), Starting 09/15/19 at 1434, For 7 days, Post-op [facility] Medication administered onsite Mineral Oil 1000 MG/ML Enema mineral oil enema 1 enema mineral oil enema 1 enema 09/15/2019 02:34:50 PM EDT 1 {enema} Rectal active 1 enema, Rectal, Daily PRN, constipation, unrelieved by Miralax/MOM/Suppository, Starting 09/15/19 at 1434, Post-op
hold for loose stools
[facility] Medication administered onsite Magnesium Hydroxide 80 MG/ML Oral Suspen pema magnesium hydroxide (MILK OF MAGNESIA) 400 MG/5ML suspension 30 mL magnesium hydroxide (MILK OF MAGNESIA) 4 00 MG/5ML suspension 30 mL 09/15/2019 02:34:50 PM EDT 30 mL Oral active 30 mL, Oral, Daily PRN, constipation, Starting 09/15/19 at 1434, Post- op
hold for loose stools
[facility] Medication administered onsite Magnesium Chloride 0.43683 MEQ/ML / Pota ssium Chloride 0.0497 MEQ/ML / Sodium Acetate 0.0163 MEQ/ML / Sodium Chloride 0.0899 MEQ/ML / Sodium gluconate 5.02 MG/ML Injectable Solution [Normosol-R] electrolyte-R (NORMOSOL-R/PLASMALYTE-R) solution electrolyte-R (NORMOSOL-R/PLASMALYTE-R) solution 09/14 11:00:00 AM EDT Intravenous active at 1 20 mL/hr, Intravenous, Continuous, Starting [place] 09/15/19 at 1100, PACU (only) [facility] Medication administered onsite Pramipexole dihydrochloride 1 MG Oral Tablet pramipexo le (MIRAPEX) tablet 1 mg pramipexole (MIRAPEX) tablet 1 mg 09/14/2019 09:00:00 PM EDT 1 mg Oral active 1 mg, Oral, 2 times daily, First dose on 09/14/19 at 2100 [facility] Medication administered onsite Docusate Sodium 50 MG / sennosides, DETENTION 8.6 MG Oral Tablet senna-docusate (PERICOLACE) 8.6-50 MG 2 tablet senna-docusate (PERICOLACE) 8.6-50 MG 2 tablet 09/14/2019 09:00:00 PM EDT 2 {tbl} Oral aborted 2 tablet, Oral, Nightly, First dose on 09/14/19 at 2100
hold for loose stools
[facility] Medication administered onsite atorvastatin 40 MG Oral Tablet atorvastatin (LIPITOR) tablet 40 mg atorvastatin (LIPITOR) tablet 40 mg 09/14/2019 09:00:00 PM EDT 40 mg Oral active 40 mg, Oral, Nightly, First dose on 09/14/19 at 2100 [facility] Medication administered onsite duloxetine 30 MG Delayed Release Oral Ca psule DULoxetine (CYMBALTA) DR capsule 30 mg DULoxetine (CYMBALTA) DR capsule 30 mg 09/14/2019 05:00:00 PM EDT 30 mg Oral active 30 mg, Oral, 2 times daily, First dose on 09/14/19 at 1700 [facility] Medication administered onsite normal saline flush 0.9 % injection 3 mL [id number] 09/14/2019 02:00:00 PM EDT 3 mL Intravenous aborted 3 mL , Intravenous, PROTOCOL, First dose on 09/14/19 at 1400
flush per protocol, D/C Main IV fluid if appropriate
[facility] Medication administered onsite Furosemide 20 MG Oral Tablet furosemide (LASIX) tablet 20 mg furosemide (LASIX) tablet 20 mg 09/14/2019 09:00:00 AM EDT 20 mg Oral activ e 20 mg, Oral, LOOPBID, First dose on 09/14/19 at 0900 [facility] Medication administered onsite Levetiracetam 500 MG Oral Tablet levETIRAcetam (KEPPRA ) tablet 750 mg levETIRAcetam (KEPPRA) tablet 750 mg 09/14/2019 09:00:00 AM EDT 750 m g Oral active 750 mg, Oral, 2 times daily, First dose on 09/14/19 at 0900 [facility] Medication administered onsite pantoprazole 40 MG Delayed Release Oral Tablet pantoprazole (PROTONIX) EC tablet 40 mg pantoprazole (PROTONIX) EC tablet 40 mg 09/14/2019 09:00:00 AM E DT 40 mg Oral active Gastroesophageal Reflux Diseas e 40 mg, Oral, Daily, Indications: Gastroesophageal Reflux Disease, First dose on 09/14/19 at 0900 [facility] Gastroesophageal Reflux Disease Medication administered onsite lidocaine (ASPERCREME) 4 % 2 patch [id number] 09/14/2019 09:00:00 AM EDT 2 {patch} Transdermal active 2 patch, Rodriguez sdermal, Administer over 12 Hours, Daily, First dose on 09/14/19 at 0900
On for 12 hours, off for 12 hours.Remove immediately prior to surgery before pre op CHG wash
[facility] Medication administered onsite Citalopram 20 MG Oral Tablet citalopram (CeleXA) table t 20 mg citalopram (CeleXA) tablet 20 mg 09/14/2019 09:00:00 AM EDT 20 mg Oral active 20 mg, Oral, Daily, First dose on 09/14/19 at 0900 [facility] Medication administered onsite chlorhexidine gluconate 1.2 MG/ML Mouthw ronaldo chlorhexidine (PERIDEX) 0.12 % oral solution 15 mL chlorhexidine (PERIDEX) 0.12 % oral solution 15 mL 08:00:00 AM EDT 15 mL Mouth/Throat aborted 15 mL, Mouth/Throat, 2 times daily, First dose on 09/14/19 at 0800
Pre-op only. Discontinue order post-op.Swish and Spit, start today and perform oral care prior to a dministration.If patient is unable to swish and spit, utilize suction toothbrush with chlorhexidine rinse
[facility] Medication administered onsite normal saline flush 0.9 % injection 3 mL [id number] 09/14/2019 06:00:00 AM EDT 3 mL Intravenous active 3 mL , Intravenous, PROTOCOL, First dose on 09/14/19 at 0600
flush per protocol, D/C Main IV fluid if appropriate
[facility] Medication administered onsite gabapentin 600 MG Oral Tablet gabapentin (NEURONTIN) t ablet 300 mg gabapentin (NEURONTIN) tablet 300 mg 09/14/2019 06:00:00 AM EDT 300 mg Oral active 300 mg, Oral, 3 times daily, First dose on 09/14/19 at 0600 [facility] Medication administered onsite buspirone hydrochloride 5 MG Oral Tablet busPIRone (BU SPAR) tablet 5 mg busPIRone (BUSPAR) tablet 5 mg 09/14/2019 06:00:00 AM EDT 5 mg Or al active 5 mg, Oral, 3 times daily, First dose on 09/14/19 at 0600 [facility] Medication administered onsite Diltiazem Hydrochloride 30 MG Oral Tablet diltiazem (C ARDIZEM) tablet 30 mg diltiazem (CARDIZEM) tablet 30 mg 09/14/2019 06:00:00 AM EDT 30 mg Oral active 30 mg, Oral, Every 6 hours (scheduled), First dose on 09/14/19 at 0600 [facility] Medication administered onsite Docusate Sodium 50 MG / sennosides, DETENTION 8.6 MG Oral Tablet senna-docusate (PERICOLACE) 8.6-50 MG 2 tablet senna-docusate (PERICOLACE) 8.6-50 MG 2 tablet 09/14/2019 01:00:00 AM EDT 2 {tbl} Oral aborted 2 tablet, Oral, Nightly, First dose on 09/14/19 at 0100
hold for loose stools
[facility] Medication administered onsite ferric gluconate (FERRLECIT) 125 mg in sodium chloride 0.9% (NS) 100 mL IVPB 09/14/2019 12:00:00 AM EDT 125 mg Intravenous completed 125 mg, Intravenous, Administer over 60 Minutes, Once, 09/14/19 at 0000, For 1 dose
On day of admission (day of surgery) DC if iron Sat > 20%Med [facility] pharmacy if/when dose is needed
[facility] Medication administered onsite Vitamin B 12 1 MG/ML Injectable Solution cyanocobalami n injection 1,000 mcg cyanocobalamin injection 1,000 mcg 09/14/2019 12:00:00 AM EDT 10 00 ug Intramuscular completed 1,000 mcg, Intramuscular, Once, 09/14/19 at 0000, For 1 dose [facility] Medication administered onsite quetiapine 25 MG Oral Tablet QUEtiapine (SEROquel) tab let 25 mg QUEtiapine (SEROquel) tablet 25 mg 09/14/2019 12:00:00 AM EDT 25 mg Oral active 25 mg, Oral, Nightly, First dose on 09/14/19 at 0000 [facility] Medication administered onsite Acetaminophen 500 MG Oral Tablet acetaminophen (TYLENO L) tablet 500 mg acetaminophen (TYLENOL) tablet 500 mg 09/14/2019 12:00:00 AM EDT 50 0 mg Oral aborted 500 mg, Oral, Every 8 sara rs, First dose on 09/14/19 at 0000 [facility] Medication administered onsite normal saline flush 0.9 % injection 3 mL [id number] 09/14/2019 12:00:00 AM EDT 3 mL Intravenous aborted 3 mL , Intravenous, Every 8 hours (scheduled), First dose on 09/14/19 at 0000
flush per protocol, D/C Main IV fluid if appropriate
[facility] Medication administered onsite haloperidol lactate (HALDOL) injection 5 mg [id number] 09/13/2019 11:53:07 PM EDT 5 mg Intramuscular active 5 mg, Intramuscular, Every 6 hours PRN, agitation, delirium, aggression , Starting Mon09/13/19 at 2353 [facility] Medication administered onsite Acetaminophen 325 MG / Hydrocodone Karissa trate 5 MG Oral Tablet HYDROcodone- acetaminophen (NORCO) 5-325 MG per tablet 1 tablet HYDROcodone-acetaminophen (NORCO) 5-325 MG per tablet 1 tablet 09/13/2019 11:36:48 PM EDT 1 { tbl} Oral aborted 1 tablet, Oral, Every 4 hours PRN, severe pain (7-10), Starting Mon09/13/19 at 2336, For 7 days [facility] Medication administered onsite fentaNYL Citrate (PF) (SUBLIMAZE) injection 25 mcg [id number] 09/13/2019 11:36:48 PM EDT 25 ug Intravenous aborted 25 mcg, Intravenous, Every 3 hours PRN, for severe (7-10) breakthrough pain not relieved by oral pain medication, Starting Mon09/13/19 at 2336, For 7 days [facility] Medication administered onsite 2 ML Metoclopramide 5 MG/ML Prefilled Sy ringe metoclopramide (REGLAN) injection 10 mg metoclopramide (REGLAN) injection 10 mg 09/13/2019 11:36:20 PM E DT 10 mg Intravenous active 10 mg, I ntravenous, Every 6 hours PRN, for Nausea/Vomiting not relieved by zofran, Starting Mon09/13/19 at 2336 [facility] Medication administered onsite Citalopram 40 MG Oral Tablet Citalopram Hydrobromide 4 0 MG Oral Tablet (CELEXA) Citalopram Hydrobromide 40 MG Oral Tablet (CELEXA) 08/21/2019 12:00:00 AM EDT 40 mg Oral active Take 1 tab let by mouth every evening HOLD UNTIL 08/20 WHEN LINEZOLID WILL BE COMPLETED. [facility] Melatonin 3 MG Oral Tablet Melatonin 3 MG Oral Tablet 2019 12:00:00 AM EDT 3 mg Oral active Take 1 tablet by mouth nightly [facility] Oxycodone Hydrochloride 5 MG Oral Tablet oxyCODONE HCl 5 MG Oral Tablet (ROXICODONE) oxyCODONE HCl 5 MG Oral Tablet (ROXICODONE) 08/15/2019 12:00:00 AM EDT 5 mg Oral active Take 1 t ablet by mouth every 4 (four) hours as needed for up to 3 days, Max Daily Dose: 30 mg [facility] linezolid 600 MG Oral Tablet Linezolid 600 MG Oral Tab let (ZYVOX) Linezolid 600 MG Oral Tablet (ZYVOX) 08/15/2019 12:00:00 AM EDT 600 mg Oral active Take 1 tablet by mouth every 12 (twelve) hours for 6 days [facility] linezolid 600 MG Oral Tablet linezolid (ZYVOX) tablet 600 mg linezolid (ZYVOX) tablet 600 mg 08/13/2019 09:00:00 PM EDT 600 mg Oral acti ve 600 mg, Oral, Every 12 hours Standard (2 times per day), First dose on Mon08/13/19 at 2100, For 5 days
Discouraged Uses: VRE colonization of the stool, urine, respiratory tract, wounds or drains
[facility] Medication administered onsite Acetaminophen 325 MG Oral Tablet acetaminophen (TYLENO L) tablet 650 mg acetaminophen (TYLENOL) tablet 650 mg 08/13/2019 12:27:29 PM EDT 65 0 mg Oral completed 650 mg, Oral, E very 6 hours PRN, Mild Pain (Pain Scale Score 1-3), Starting Mon08/13/19 at 1227, For 2 days
Maximum daily dose of acetaminophen is 3,000 mg from all sources in 24 hours.
[facility] Medication administered onsite Polyvinyl Alcohol 0.014 ML/ML Ophthalmic Solution polyvinyl alcohol (LIQUIFILM TEARS) 1.4 % ophthalmic solution 1 drop polyvinyl alcohol (LIQUIFILM TEARS) 1.4 % ophthalmic solution 1 drop 08/12/2019 03:11:43 AM EDT 1 [drp] Both Eyes active 1 drop, Both Eyes, P RN, Dry Eyes, Starting Mon08/12/19 at 0311, For 30 days [facility] Medication administered onsite duloxetine 20 MG Delayed Release Oral Ca psule DULoxetine (CYMBALTA) DR capsule 20 mg DULoxetine (CYMBALTA) DR capsule 20 mg 08/10/2019 08:00:00 PM EDT 20 mg Oral active 20 mg, Oral, 2 Times Daily, First dose (after last modification) on 08/10/19 at 2000, For 57 doses
Do not crush or chew
[facility] Medication administered onsite 300 ML linezolid 2 MG/ML Injection linez olid (ZYVOX) 600 MG/300ML IVPB (premix) 600 mg linezolid (ZYVOX) 600 MG/300ML IVPB (premix) 600 mg 07:00:00 PM EDT 600 mg Intravenous aborted 600 mg, Intravenous, Administer over 60 Minutes, Every 12 hours, First dose on 08/10/19 at 1900, For 10 doses [facility] Medication administered onsite Piperacillin 3000 MG / tazobactam 375 MG Injection piperacillin-tazobactam (ZOSYN) IVPB 3.375 g (premix) piperacillin-tazobactam (ZOSYN) IVPB 3.3 75 g (premix) 08/10/2019 06:00:00 PM EDT 3.375 g Intravenous abo rted 3.375 g, Intravenous, Administer over 4 Hours, Every 8 hours, First dose on Mon08/10/19 at 1800, For 14 doses [facility] Medication administered onsite pantoprazole 40 MG Delayed Release Oral Tablet pantoprazole (PROTONIX) EC tablet 40 mg pantoprazole (PROTONIX) EC tablet 40 mg 08/10/2019 07:30:00 AM E DT 40 mg Oral active 40 mg, Ora l, Before Breakfast, First dose on Mon08/10/19 at 0730, For 30 days [facility] Medication administered onsite sennosides, DETENTION 8.6 MG Oral Tablet senna 8.6 MG 1 tablet sen na 8.6 MG 1 tablet 08/09/2019 10:00:00 PM EDT 1 {tbl} Oral active 1 tablet, Oral, Nightly, First dose on Mon08/09/19 at 2200, For 30 days [facility] Medication administered onsite atorvastatin 40 MG Oral Tablet atorvastatin (LIPITOR) tablet 40 mg atorvastatin (LIPITOR) tablet 40 mg 08/09/2019 09:00:00 PM EDT 40 mg Oral active 40 mg, Oral, Every evening, First dose on Mon08/09/19 at 2100, For 30 days [facility] Medication administered onsite Citalopram 20 MG Oral Tablet citalopram (CELEXA) table t 40 mg citalopram (CELEXA) tablet 40 mg 08/09/2019 08:00:00 PM EDT 40 mg Oral aborted 40 mg, Oral, Every evening, First dose on Mon08/09/19 at 2000, For 30 days [facility] Medication administered onsite Pramipexole dihydrochloride 1 MG Oral Tablet pramipexo le (MIRAPEX) tablet 1 mg pramipexole (MIRAPEX) tablet 1 mg 08/09/2019 08:00:00 PM EDT 1 mg Oral active 1 mg, Oral, 2 Times Daily, First dose on Mon08/09/19 at 2000, For 30 days [facility] Medication administered onsite quetiapine 25 MG Oral Tablet QUEtiapine (SEROquel) tab let 25 mg QUEtiapine (SEROquel) tablet 25 mg 08/09/2019 08:00:00 PM EDT 25 mg Oral active 25 mg, Oral, Every evening, First dose on Mon08/09/19 at 2000, For 30 days [facility] Medication administered onsite rivaroxaban 10 MG Oral Tablet rivaroxaban (XARELTO) ta blet 20 mg rivaroxaban (XARELTO) tablet 20 mg 08/09/2019 06:00:00 PM EDT 20 mg Oral active 20 mg, Oral, Daily with Dinner, First dose on Mon08/09/19 at 1800, For 30 days [facility] Medication administered onsite Furosemide 20 MG Oral Tablet furosemide (LASIX) tablet 20 mg furosemide (LASIX) tablet 20 mg 08/09/2019 03:00:00 PM EDT 20 mg Oral activ e 20 mg, Oral, 2 Times Daily, First dose on Mon08/09/19 at 1500, For 30 days [facility] Medication administered onsite Diltiazem Hydrochloride 30 MG Oral Tablet dilTIAZem (C ARDIZEM) tablet 30 mg dilTIAZem (CARDIZEM) tablet 30 mg 08/09/2019 02:00:00 PM EDT 30 mg Oral active 30 mg, Oral, Three Times Daily Standard, First dose on Mon08/09/19 at 1400, For 30 days
Check vital signs before administering
[facility] Medication administered onsite buspirone hydrochloride 5 MG Oral Tablet busPIRone (BU SPAR) tablet 5 mg busPIRone (BUSPAR) tablet 5 mg 08/09/2019 02:00:00 PM EDT 5 mg Or al active 5 mg, Oral, Three T imes Daily Standard, First dose on Mon08/09/19 at 1400, For 30 days [facility] Medication administered onsite duloxetine 30 MG Delayed Release Oral Ca psule DULoxetine (CYMBALTA) DR capsule 30 mg DULoxetine (CYMBALTA) DR capsule 30 mg 08/09/2019 11:30:00 AM EDT 30 mg Oral aborted 30 mg, Oral, 2 Times Daily, First dose (after last modification) on Mon08/09/19 at 1130, For 30 days
Do not crush or chew
[facility] Medication administered onsite furosemide (LASIX) injection 20 mg [id number] 08/09/2019 10:45:00 AM EDT 20 mg Intravenous completed 20 mg, I ntravenous, Once, Mon08/09/19 at 1045, For 1 dose [facility] Medication administered onsite gabapentin 300 MG Oral Capsule gabapentin (NEURONTIN) capsule 300 mg gabapentin (NEURONTIN) capsule 300 mg 08/09/2019 10:30:00 AM EDT 300 mg Oral active 300 mg, Oral, Three Times D aily Standard, First dose (after last modification) on Mon08/09/19 at 1030, For 30 days [facility] Medication administered onsite atorvastatin 40 MG Oral Tablet atorvastatin (LIPITOR) tablet 80 mg atorvastatin (LIPITOR) tablet 80 mg 08/09/2019 09:00:00 AM EDT 80 mg Oral aborted 80 mg, Oral, Daily Standard, First dose on Mon08/09/19 at 0900, For 9 days [facility] Medication administered onsite 0.4 ML Enoxaparin sodium 100 MG/ML Prefi lled Syringe enoxaparin sodium (LOVENOX) injection 40 mg enoxaparin sodium (LOVENOX) injection 40 mg 08/09/2019 09:00:00 AM EDT 40 mg Subcutaneous aborted 40 mg, Subcutaneous, Daily Standard, First dose on Mon08/09/19 at 0900, For 30 days [facility] Medication administered onsite Melatonin 3 MG Oral Tablet melatonin tablet 3 mg melatonin t ablet 3 mg 08/08/2019 10:00:00 PM EDT 3 mg Oral active 3 mg, Oral, Nightly, First dose on Mon08/08/19 at 2200, For 30 days [facility] Medication administered onsite carvedilol 3.125 MG Oral Tablet carvedilol (COREG) tab let 3.125 mg carvedilol (COREG) tablet 3.125 mg 08/08/2019 09:00:00 PM EDT 3.125 mg Oral aborted 3.125 mg, Oral, 2 Times [place] y, First dose on Mon08/08/19 at 2100, For 30 days
Check vital signs before administering
[facility] Medication administered onsite vancomycin (VANCOCIN) in D5W infusion 1,000 mg/200 mL (premi x) [id number] 08/08/2019 09:00:00 PM EDT 1000 mg Intravenous aborted 1,000 mg, Intravenous, Administer over 60 Minutes, Every 12 hours, First dose (after last modification) on Mon08/08/19 at 2100, For 7 doses [facility] Medication administered onsite Levetiracetam 250 MG Oral Tablet levETIRAcetam (KEPPRA ) tablet 750 mg levETIRAcetam (KEPPRA) tablet 750 mg 08/08/2019 09:00:00 PM EDT 750 m g Oral active 750 mg, Oral, 2 Times Daily, First dose on [place] 08/08/19 at 2100, For 30 days [facility] Medication administered onsite Cefazolin 2000 MG Injection ceFAZolin (ANCEF) IVPB 2 g in dextrose (premix) ceFAZolin (ANCEF) IVPB 2 g in dextrose (premix) 08/08/2019 07:00:00 PM EDT 2 g Intravenous aborted 2 g, Int ravenous, Administer over 30 Minutes, Every 8 hours, First dose on [place] 08/08/19 at 1900, For 7 days [facility] Medication administered onsite Bisacodyl 10 MG Rectal Suppository bisacodyl (DULCOLAX ) suppository 10 mg bisacodyl (DULCOLAX) suppository 10 mg 08/08/2019 06:14:41 PM EDT 10 mg Rectal active 10 mg, Rectal, Every 72 hours PRN, Constipation, Starting [place] 08/08/19 at 1814, For 30 days
Hold if patient has had BM within the past 2 days.
[facility] Medication administered onsite sennosides, DETENTION 35.2 MG/ML Oral Solution senna (SENOKO T) syrup 10 mL senna (SENOKOT) syrup 10 mL 08/08/2019 06:14:41 PM EDT 10 mL Oral active 10 mL, Oral, Nightly PRN, Constipation, Starting [place] 08/08/19 at 1814, For 30 days [facility] Medication administered onsite Acetaminophen 325 MG Oral Tablet acetaminophen (TYLENO L) tablet 650 mg acetaminophen (TYLENOL) tablet 650 mg 08/08/2019 05:45:00 PM EDT 65 0 mg Oral completed 650 mg, Oral, E very 6 hours, First dose on [place] 08/08/19 at 1745, For 2 days
Maximum daily dose of acetaminophen is 3,000 mg from all sources in 24 hours.
[facility] Medication administered onsite Acetaminophen 325 MG / Hydrocodone Karissa trate 5 MG Oral Tablet HYDROcodone- acetaminophen (LORTAB) 5-325 MG per tablet 1 tablet HYDROcodone-acetaminophen (LORTAB) 5-325 MG per tablet 1 tablet 08/08/2019 05:32:36 PM EDT 1 {tbl} Oral aborted 1 tablet, Oral, Every 6 hours PRN, Moderate Pain (Pain Scale Score 4-6), Severe Pain (Pain Scale Score 7-10), Starting [facility] 08/08/19 at 1732, For 3 days
Maximum daily dose of acetaminophen is 3,000 mg from all sources in 24 hours.
[facility] Medication administered onsite gabapentin 300 MG Oral Capsule Gabapentin 300 MG Oral Capsule (NEURONTIN) Gabapentin 300 MG Oral Capsule (NEURONTIN) 08/05/2019 12:00:00 AM EDT 300 mg Oral active Take 300 mg by mouth Three times daily [facility] Furosemide 20 MG Oral Tablet Furosemide 20 MG Oral Tab let (LASIX) Furosemide 20 MG Oral Tablet (LASIX) 08/05/2019 12:00:00 AM EDT 20 mg Oral active Take 20 mg by mouth Two Times Daily [facility] buspirone hydrochloride 5 MG Oral Tablet busPIRone HCl 5 MG Oral Tablet (BUSPAR) busPIRone HCl 5 MG Oral Tablet (BUSPAR) 08/05/2019 12:00:00 AM EDT 5 mg Oral active Take 5 mg by mouth Three times daily [facility] Omeprazole 20 MG Delayed Release Oral Ca psule Omeprazole 20 MG Oral Capsule Delayed Release (PriLOSEC) Omeprazole 20 MG Oral Capsule Delayed Re lease (PriLOSEC) 08/05/2019 12:00:00 AM EDT 20 mg Oral active Take 20 mg by mouth daily [facility] Furosemide 20 MG Oral Tablet [Lasix] Lasix 20 MG Oral Tablet Lasix 20 MG Oral Tablet 08/05/2019 12:00:00 AM EDT aborted furosemide 20 MG Oral Tablet [Lasix] [place] ([facility]) Pramipexole dihydrochloride 1 MG Oral Ta blet Pramipexole Dihydrochloride 1 MG Oral Tablet (MIRAPEX) Pramipexole Dihydrochloride 1 MG Oral Tablet (MIRAPEX) 08/05/2019 12:00:00 AM EDT 1 mg Oral active Take 1 mg by mouth Two Times Daily [facility] Furosemide 20 MG Oral Tablet [Lasix] Lasix 20 MG Oral Tablet Lasix 20 MG Oral Tablet 07/29/2019 12:00:00 AM EST 1 aborted furosemide 20 MG Oral Tablet [Lasix] [place] ([facility]) buspirone hydrochloride 5 MG Oral Tablet busPIRone HCl 5 MG Oral Tablet busPIRone HCl 5 MG Oral Tablet 07/29/2019 12:00:00 AM EST 1 aborted buspirone hydrochloride 5 MG Oral Tablet [place] ([facility]) rivaroxaban 15 MG Oral Tablet [Xarelto] Xarelto 15 MG Oral Tablet Xarelto 15 MG Oral Tablet 07/29/2019 12:00:00 AM EST aborte d rivaroxaban 15 MG Oral Tablet [Xarelto] [place] ([facility]) Omeprazole 20 MG Delayed Release Oral Ca psule Omeprazole 20 MG Oral Capsule Delayed Release Omeprazole 20 MG Oral Capsule Delayed Release 07/29/19 12:00:00 AM EST 1 aborted omeprazole 20 MG Delayed Release Oral Capsule [facility]) Furosemide 20 MG Oral Tablet [Lasix] Lasix 20 MG Oral Tablet Lasix 20 MG Oral Tablet 07/29/2019 12:00:00 AM EST aborted furosemide 20 MG Oral Tablet [Lasix] [place] ([facility]) gabapentin 300 MG Oral Capsule Gabapentin 300 MG Oral Capsule Gabapentin 300 MG Oral Capsule 07/29/2019 12:00:00 AM EST 1 abort ed gabapentin 300 MG Oral Capsule [place] ([facility]) Levofloxacin 500 MG Oral Tablet [Levaquin] Levaquin 50 0 MG Oral Tablet Levaquin 500 MG Oral Tablet 07/22/2019 12:00:00 AM EST 1 aborted levofloxacin 500 MG Oral Tablet [Levaquin] [place] ([facility]) Levetiracetam 750 MG Oral Tablet levETIRAcetam 750 MG Oral Tablet (KEPPRA) levETIRAcetam 750 MG Oral Tablet (KEPPRA) 07/09/2019 12:00:00 AM EST 750 mg Oral active Take 750 mg by mouth Two Times Daily [facility] duloxetine 30 MG Delayed Release Oral Ca psule DULoxetine HCl 30 MG Oral Capsule Delayed Release Particles (CYMBALTA) DULoxetine HCl 30 MG Oral Capsule [place] d Release Particles (CYMBALTA) 07/09/2019 12:00:00 AM EST 30 mg Oral active Take 30 mg by mouth Two Times Daily [facility] Diltiazem Hydrochloride 30 MG Oral Table t dilTIAZem HCl 30 MG Oral Tablet (CARDIZEM) dilTIAZem HCl 30 MG Oral Tablet (CARDIZEM) 07/09/2019 12:00:00 AM EST 30 mg Oral active Take 30 mg by jennifer th Three times daily [facility] rivaroxaban 20 MG Oral Tablet [Xarelto] Xarelto 20 MG Oral Tablet Xarelto 20 MG Oral Tablet 07/09/2019 12:00:00 AM EST 20 mg Oral active Take 20 mg by mouth daily with dinner [facility] Citalopram 40 MG Oral Tablet Citalopram Hydrobromide 4 0 MG Oral Tablet (CELEXA) Citalopram Hydrobromide 40 MG Oral Tablet (CELEXA) 07/09/2019 12:00:00 AM EST 40 mg Oral aborted Take 40 mg by mouth ever y evening [facility] atorvastatin 40 MG Oral Tablet Atorvastatin Calcium 40 MG Oral Tablet (LIPITOR) Atorvastatin Calcium 40 MG Oral Tablet (LIPITOR) 07/09/2019 12:00:00 AM EST 40 mg Oral active Take 40 mg by mouth ever y [facility] quetiapine 25 MG Oral Tablet QUEtiapine Fumarate 25 MG Oral Tablet (SEROquel) QUEtiapine Fumarate 25 MG Oral Tablet (SEROquel) 07/09/2019 12:00:00 AM EST 25 mg Oral active Take 25 mg by mouth ever y [facility] Acetaminophen 325 MG / Hydrocodone Karissa trate 5 MG Oral Tablet HYDROcodone- Acetaminophen 5-325 MG Oral Tablet HYDROcodone-Acetaminophen 5-325 MG Oral Tablet 07/08/2019 12:00:00 AM EST 1 aborted acetaminophen 325 MG / hydrocodone bitartrate 5 MG Oral Tablet [place] ([facility]) Acetaminophen 325 MG / Hydrocodone Karissa trate 5 MG Oral Tablet HYDROcodone- Acetaminophen 5-325 MG Oral Tablet (LORTAB) HYDROcodone-Acetaminophen 5-325 MG Oral Tablet (LORTAB) 07/08/2019 12:00:00 AM EST 1 {tbl} Oral active Take 1 tablet by mouth Three times daily as needed [facility] rivaroxaban 20 MG Oral Tablet [Xarelto] Xarelto 20 MG Oral Tablet Xarelto 20 MG Oral Tablet 07/08/2019 12:00:00 AM EST 1 aborte d rivaroxaban 20 MG Oral Tablet [Xarelto] [place] ([facility]) rivaroxaban 20 MG Oral Tablet [Xarelto] Xarelto 20 MG Oral Tablet Xarelto 20 MG Oral Tablet 06/17/2019 12:00:00 AM EST 1 aborte d rivaroxaban 20 MG Oral Tablet [Xarelto] [place] ([facility]) Pramipexole dihydrochloride 1 MG Oral Ta blet Pramipexole Dihydrochloride 1 MG Oral Tablet Pramipexole Dihydrochloride 1 MG Oral Tablet 0 12:00:00 AM EST aborted pramipexole dihy drochloride 1 MG Oral Tablet [facility]) quetiapine 50 MG Oral Tablet QUEtiapine Fumarate 50 MG Oral Tablet QUEtiapine Fumarate 50 MG Oral Tablet 06/06/2019 12:00:00 AM EST aborted quetiapine 50 MG Oral Tablet [facility]) Citalopram 40 MG Oral Tablet Citalopram Hydrobromide 4 0 MG Oral Tablet Citalopram Hydrobromide 40 MG Oral Tablet 06/06/2019 12:00:00 AM EST aborted citalopram 40 MG Oral Tablet [facility]) Omeprazole 20 MG Delayed Release Oral Ca psule Omeprazole 20 MG Oral Capsule Delayed Release Omeprazole 20 MG Oral Capsule Delayed Release 05/27/20 12:00:00 AM EST 1 aborted omeprazole 20 MG Delayed Release Oral Capsule [facility]) HM Senna 8.6 MG Oral Tablet HM Senna 8.6 MG Oral Tablet 04/30 12:00:00 AM EST 1 aborted HM Senna [place] ([facility]) gabapentin 300 MG Oral Capsule Gabapentin 300 MG Oral Capsule Gabapentin 300 MG Oral Capsule 05/27/2019 12:00:00 AM EST 1 abort ed gabapentin 300 MG Oral Capsule [facility]) Levetiracetam 750 MG Oral Tablet levETIRAcetam 750 MG Oral Tablet levETIRAcetam 750 MG Oral Tablet 05/27/2019 12:00:00 AM EST aborted levetiracetam 750 MG Oral Tablet [facility]) Diltiazem Hydrochloride 30 MG Oral Tablet dilTIAZem HC l 30 MG Oral Tablet dilTIAZem HCl 30 MG Oral Tablet 05/27/2019 12:00:00 AM EST 1 aborted diltiazem hydrochloride 30 MG Oral Tablet [place] ([facility]) buspirone hydrochloride 5 MG Oral Tablet busPIRone HCl 5 MG Oral Tablet busPIRone HCl 5 MG Oral Tablet 05/27/2019 12:00:00 AM EST 1 aborted buspirone hydrochloride 5 MG Oral Tablet [facility]) Acetaminophen 325 MG / Hydrocodone Karissa trate 5 MG Oral Tablet HYDROcodone- Acetaminophen 5-325 MG Oral Tablet HYDROcodone-Acetaminophen 5-325 MG Oral Tablet 05/27/2019 12:00:00 AM EST aborted acetaminophen 325 MG / hydrocodone bitartrate 5 MG Oral Tablet [facility]) Acetaminophen 325 MG / Hydrocodone Karissa trate 5 MG Oral Tablet HYDROcodone- Acetaminophen 5-325 MG Oral Tablet HYDROcodone-Acetaminophen 5-325 MG Oral Tablet 05/27/2019 12:00:00 AM EST 1 aborted acetaminophen 325 MG / hydrocodone bitartrate 5 MG Oral Tablet [facility]) Acetaminophen 325 MG Oral Tablet [Tylenol] Tylenol 325 MG Oral Tablet Tylenol 325 MG Oral Tablet 05/27/2019 12:00:00 AM EST aborted acetaminophen 325 MG Oral Tablet [Tylenol] [facility]) rivaroxaban 20 MG Oral Tablet [Xarelto] Xarelto 20 MG Oral Tablet Xarelto 20 MG Oral Tablet 05/27/2019 12:00:00 AM EST 1 aborte d rivaroxaban 20 MG Oral Tablet [Xarelto] [facility]) Furosemide 20 MG Oral Tablet [Lasix] Lasix 20 MG Oral Tablet Lasix 20 MG Oral Tablet 05/27/2019 12:00:00 AM EST aborted furosemide 20 MG Oral Tablet [Lasix] [facility]) duloxetine 30 MG Delayed Release Oral Ca psule [Cymbalta] Cymbalta 30 MG Oral Capsule Delayed Release Particles Cymbalta 30 MG Oral Capsule Delayed Rele ase Particles 05/27/2019 12:00:00 AM EST aborted duloxetine 30 MG Delayed Release Oral Capsule [Cymbalta] [place] [facility]) atorvastatin 40 MG Oral Tablet Atorvastatin Calcium 40 MG Oral Tablet Atorvastatin Calcium 40 MG Oral Tablet 05/27/2019 12:00:00 AM EST 1 aborted [facility]atin [facility] Citalopram 20 MG Oral Tablet Citalopram Hydrobromide 2 0 MG Oral Tablet Citalopram Hydrobromide 20 MG Oral Tablet 05/27/2019 12:00:00 AM EST 1 aborted citalopram 20 MG [facility] Tablet [facility] sennosides, DETENTION 35.2 MG/ML Oral Solution senna (SENOKO T) 176 MG/5ML SYRP syrup senna (SENOKOT) 176 MG/5ML SYRP syrup 12/07/2016 12:00:00 AM EDT 10 m L Oral aborted Take 10 mLs by mouth nightly as needed [facility] Warfarin Sodium 4 MG Oral Tablet warfarin (COUMADIN) 4 MG tablet warfarin (COUMADIN) 4 MG tablet 12/07/2016 12:00:00 AM EDT 4 mg Oral aborted Take 1 tablet by mouth daily [facility] Levetiracetam 100 MG/ML Oral Solution le vETIRAcetam (KEPPRA) 100 MG/ML oral solution levETIRAcetam (KEPPRA) 100 MG/ML oral solution 017 12:00:00 AM EDT 750 mg Oral aborted Take 7.5 mLs by mouth Two [employer] Daily [facility] Diltiazem Hydrochloride 30 MG Oral Tablet dilTIAZem (C ARDIZEM) 30 MG tablet dilTIAZem (CARDIZEM) 30 MG tablet 12/07/2016 12:00:00 AM EDT 30 mg Oral aborted Take 1 tablet by mouth every 6 ( six) hours [facility] pantoprazole (PROTONIX) 2 mg/mL SUSP oral suspension 12/07/2016 12:00:00 AM EDT 40 mg Per G Tube aborted 20 mL s by Per G Tube route every morning before breakfast [facility] Melatonin 3 MG Oral Tablet melatonin 3 MG tablet melatonin 3 MG tablet 12/07/2016 12:00:00 AM EDT 3 mg Oral aborted Take 1 tablet by mouth nightly [facility] atorvastatin 80 MG Oral Tablet atorvastatin (LIPITOR) 80 MG tablet atorvastatin (LIPITOR) 80 MG tablet 12/07/2016 12:00:00 AM EDT 80 mg Oral aborted Take 1 tablet by mouth daily [facility] Citalopram 20 MG Oral Tablet Citalopram Hydrobromide 2 0 MG Oral Tablet (CELEXA) Citalopram Hydrobromide 20 MG Oral Tablet (CELEXA) 20 mg Oral aborted Take 20 mg by mouth daily [facility] atorvastatin 80 MG Oral Tablet Atorvastatin Calcium 80 MG Oral Tablet (Lipitor) Atorvastatin Calcium 80 MG Oral Tablet (Lipitor) 80 mg Oral aborted Take 80 mg by mouth daily [facility] Baclofen 10 MG Oral Tablet Baclofen 10 MG Oral Tablet (LIORESAL) Baclofen 10 MG Oral Tablet (LIORESAL) 10 mg Oral aborted Take 10 mg by mouth Three times daily [facility] Vitamin B 12 0.5 MG Oral Tablet Cyanocobalamin (B-12) 500 MCG TABS Cyanocobalamin (B-12) 500 MCG TABS 1 {tbl} Oral ab orted Take 1 tablet by mouth daily [facility] B Complex Vitamins (VITAMIN B COMPLEX) TABS 02157-32589 1 {tbl} Oral aborted Take 1 tablet by mouth daily [facility] carvedilol 3.125 MG Oral Tablet carvedilol (COREG) 3.1 25 MG tablet carvedilol (COREG) 3.125 MG tablet 3.125 mg Oral aborted Take 3.125 mg by mouth Two Times Daily [facility] Insurance Providers Payer name Policy type / Coverage type Policy ID Covered democrat ID Covered democrat's relationship to aranda Policy Aranda Plan Information MEDICARE [id number] SP [id number] MEDICARE PART A -O/P [id number] 18 [id number] MEDICAID -O/P [id number] 18 [id number] MEDICAID -O/P EMERGENCY ROOM [id number] 18 [id number] Medicaid of [place] Other 0 Self 0 Medicare Part B [facility] Other 0 Se lf 0 Medicaid [facility] Other 0 Self 0 Medicare Part B [facility] Other 0 Se lf 0 Medicaid [facility] Other 0 Self 0 Medicare Part B of [facility] Other 0 Se lf 0 Medicaid of [place] Other 0 Self 0 Medicare Part B of [facility] Other 0 Se lf 0 [place] Other 0 Self 0 Medicare Part B of [facility] Other 0 Se lf 0 [place] Other 0 Self 0 Medicare Part B of [facility] Other 0 Se lf 0 Medicaid [facility] S D [id number] SELF [id number] Medicare C [id number] SELF [id number] X06 MEDICAID [id number] Madeleine [id number] MEDICARE [id number] Madeleine [id number] X06 MEDICAID [id number] MEDICARE [id number] MEDICAID [id number] Madeleine [id number] MEDICARE A [id number] Self [id number] X06 MEDICAID [id number] Self [id number] MEDICARE A [id number] Self [id number] MEDICAID [facility] /[employer]. 2 [id number] MEDICARE [facility]) - [id number] 1 [id number] Medicaid [facility] Other 0 Self 0 Medicare Part B of [facility] Other 0 Se lf 0 MEDICARE C [id number] S [id number] Medicaid [facility] Other 0 Self 0 Medicare Part B of [facility] Other 0 Se lf 0 MEDICARE PART A -O [id number] 18 [id number] MEDICAID -O/P KEVIN [id number] MEDICARE PART A -I/P [id number] 18 [id number] MEDICAID -I/P [id number] MEDICARE PART A -O/P [id number] 18 [id number] Medicaid [facility] Other 0 Self 0 Medicare Part B of [facility] Other 0 Se lf 0 Medicaid of [place] Other 0 Self 0 Medicare Part B of [facility] Other 0 Se lf 0 MEDICAID [id number] SP [id number] ANSI-Medicare Part B [id number] ANSI-Medicare Part B [id number] ANSI-Medicare Part B [id number] ANSI-Medicare Part B [id number] ANSI-Medicare Part B [id number] ANSI-Medicare Part B [id number] ANSI-Medicare Part B [id number] ANSI-Medicare Part B [id number] ANSI-Medicare Part B [id number] 810lq7p3-[id number] ANSI-Medicare Part B [id number] 55a970lf-bu45-1e97-e5h1-[id number] ANSI-Medicare Part B [id number]-[id number] g9rmn817-788n-3r43-5o35-x7d6198lpkw0 ANSI-Medicare Part B [id number]-[id number] 3088b82p-ea92-4b44-4z53-k98ua9255j09 ANSI-Medicare Part B [id number]-qm89-7v2j2w98q77o 330t3e62-1o08-663j-cm22-3u3t0k44c25d ANSI-Medicare Part B [id number] wu2j0696-4l21-5834-6561-6q31cf2e83w0 ANSI-Medicare Part B [id number]-q77a-[id number] y772w707-0r04-3055-p42s-y510912q124y ANSI-Medicare Part B [id number]-w08o-250f-[id number] 895lkc76-h69a-737k-wu59-00w4532384s7 ANSI-Medicare Part B [id number]-0y13-[id number] yl4aq25l-701n-5g23-z866-840bx316o94n ANSI-Medicare Part B [id number]n0 30np6266-r748-7996-0jv1-2h52bk166fp6 ANSI-Medicare Part B 83f3mc6h-58fc-22e3-1s51-lnw0l9x7b473 52n5kv6e-05tu-91p9-9u33-jkd9k0n3j429 ANSI-Medicare Part B 6286kf68-47x1-7690-651g-exs364357c91 6679tp55-58f8-9137-868e-vpx694898q42 ANSI-Medicare Part B [id number] 4w506509-1j69-2g39-1389-5n80mx31104y ANSI-Medicare Part B ci42pjg1-5t71-2717-1cj7-126y1h7reg97 ye92mqg2-6o48-3232-1mc8-633x7w9tkv64 ANSI-Medicare Part B [id number]-1609-09d3-96id89f9vko4 2c455434-305m-5415-51a5-71tw82o8rmd2 ANSI-Medicare Part B g1477xvn-0000-80f9-2eaq-0o52u637227s m9126lps-5489-84j1-2tzr-0r71x482321j MEDICARE [id number] SP [id number] ANSI-Medicare Part B hu029rp8-760x-8n50-p194-v56v342031tx eg963zt7-397w-3a84-q594-o47t005877dz ANSI-Medicare Part B [id number]-o982-7248-655d-3877k315hp5r [id number]-j870-9096-022a-7648o953eq1h MEDICAID -PHYSICIAN [id number] MEDICAID -O [id number] MEDICARE PART A -O [id number] MEDICARE PART A -I/P [id number] ANSI-Medicare Part B [id number]-65yx-954p-6p0f3oy197t2 ht085255-lo0b-80ie-079f-6v5z8te355a9 ANSI-Medicare Part B 3283eu3j-9x16-87x1-om35-4109kf1wpo57 4786jd1m-1e11-26e9-mz97-8114sf8wrl87 ANSI-Medicare Part B 11q214ex-6i47-5v9u-s361-my3e8hz5d3ex 23p611xw-8c97-2h8d-d892-wf4d8yv3r5hr ANSI-Medicare Part B l6wg6b17-16z7-5440-5fdw-19vd031i68l2 r2zb1o18-32c2-5105-4ssh-54pj685c66f4 ANSI-Medicare Part B s5644gk5-lc1n-26h7-5ov3-x280339410wg i6300vd3-hq1k-18d2-0ec6-z256065104nb ANSI-Medicare Part B 06uj0111-6u43-2w57-01g4-wg57l50r987s 45co5993-0p11-8j77-08b7-qo93t45n897z ANSI-Medicare Part B f856284a-1v0j-09u0-tuf6-i6dl1e6701vf b191269k-3t6n-07y6-qqx5-w6ng9e8324ws ANSI-Medicare Part B 1k6fv61r-v0k7-0248-3g02-280e6up2r0vv 7p6tk95m-q9r8-6863-7f54-111l4vw6w1pl ANSI-Medicare Part B 6hg6j3gx-0z38-2p27-o132-58bj1dq6oa8s 0mz4a5vv-2y26-1b48-y072-45yy0dr2mb8u ANSI-Medicare Part B 0mkkzcu7-yh18-0750-9n80-xr188r2n141s 0vbgiut7-pn00-2796-8h45-pu517y6p601r ANSI-Medicare Part B [id number]-h04f-7l79-m2z5-94e808jy5702 5r410366-s57j-5n92-z1z7-09t308uv5446 ANSI-Medicare Part B 093e43e2-0065-87g3-1933-7a5kez6n23e3 862d88h8-4313-57l3-1864-6y5fwo6x10l6 ANSI-Medicare Part B 42j19sud-k9ac-5138-n103-j5n08z4x1852 73q44ulq-z2gv-1677-g067-o4a82b4m9733 ANSI-Medicare Part B 7q6yl2y5-4rt4-52wy-w1m7-88490e99m1pj 0r6kp5p1-1dd6-72yj-k8r3-25462n58j3ei ANSI-Medicare Part B 2lcbl3bd-wao2-139c-s0sh-1z43745f491f 0uppi2qr-qcm4-103v-b9if-6m23931l091s ANSI-Medicare Part B 8x3v9f0n-0jj3-985c-8s78-6w2478u201eb 9b1f1k3e-4lp3-812c-2o21-8b6424z725ol ANSI-Medicare Part B dhvi3l47-xrl1-9994-t073-95e69q7o7935 ixqv8k90-ole3-4431-v972-61e11g0z1045 ANSI-Medicare Part B 8dv1t854-e0gp-07li-0wc7-l744n6ze707r 4bb2b750-b0np-63so-6ch8-t252m4vk425x ANSI-Medicare Part B 8hmm0b4p-9q18-73l7-kyh6-012183887cqi 4cmu0w5l-2k37-95x0-aox2-253038974kqm ANSI-Medicare Part B l0328469-46pd-061k-p16r-g775w03b0i80 p8926356-05uu-794l-n49g-r715e15e3m58 ANSI-Medicare Part B w4hfjsww-6j89-9g1e-q6l7-3vo74j6b04uw o4wqadce-3q32-4o6u-s4e8-8sq20i6b53uz ANSI-Medicare Part B 4511h7j1-sg39-3y53-0y73-gy0a288757t7 8159v6a5-ru49-5v38-3n45-lx2k124375b1 ANSI-Medicare Part B 9516gao7-fp53-1109-q4jm-68e26vxx1983 7434vac5-rj66-2384-u7kn-02f92hmk2778 ANSI-Medicare Part B 7674633b-23n3-855p-3q59-x6z3doe77772 7673821n-57m4-354y-1t35-g2m2szf77963 ANSI-Medicare Part B 388b3bl3-5v4e-23k1-53je-49k5b4wp325l 782f1hw2-8j6j-15o2-88ai-55c5b1pu599i ANSI-Medicare Part B 6580762g-f2a9-87b3-1re7-97w5p2jui49y 1625472b-a8z0-23q0-2tg9-19g0k7oss36q ANSI-Medicare Part B 97g86hrb-25g9-4485-k9sy-5a11t95k7291 37a72kwn-57u2-2581-n7md-0w66n55f5507 ANSI-Medicare Part B 006492nk-6078-7ss6-238l-pf1sm09j8dg0 898676fx-0471-9gv5-364u-ok3vr39z6px2 ANSI-Medicare Part B qg2469f5-0656-46x5-714q-6y4134713983 dy4057p1-8628-23m2-311w-9w1842419744 ANSI-Medicare Part B 1733yi86-l5q8-1251-986b-1d027h177802 7271da61-n2w4-5134-422n-5u084e099786 ANSI-Medicare Part B 501su547-a34i-76wq-0006-kt20084174uz 615se187-c50q-51fp-2875-al36968223zi ANSI-Medicare Part B nxs92u13-a2p6-0y92-9065-25l791e9d2te dyw05v28-z0j8-3n95-3415-85x882r1g1iy ANSI-Medicare Part B 7t8q4k7e-m370-63fc-690s-f010710007u9 0r6x5m1j-h897-23cu-998b-f645393856w7 ANSI-Medicare Part B 5m4f85m4-wvy3-6726-76vd-358z4uohv635 1k8n54t6-mkw8-3978-07sq-023t0rujd479 ANSI-Medicare Part B 9t432135-b5y1-4cs2-703g-e057jnk8a8hb 8x422288-y1b9-3te3-338o-i697ese7f9ae ANSI-Medicare Part B n9i14974-uaxs-2056-wf4k-uq71y567idj9 d6i51424-vxal-5067-ut2c-wa36k897klq6 ANSI-Medicare Part B fjur0sxd-c0gj-2i19-qqo1-uhocbp5l5k1e wxpr1jlw-v2zk-6y76-iss4-kqowje8e1f0a ANSI-Medicare Part B 6486479m-91u0-830d-l2gm-062whr7r5338 0134384n-27v0-892d-a7oy-526qyv1h6606 ANSI-Medicare Part B 6x666225-4009-807q-lbi8-j9j42jwiy245 3m802101-5710-790o-zof5-m5h91hmxo701 ANSI-Medicare Part B 5m3frsq5-v722-4352-42a6-8140l11j3243 0g6jytm4-f291-5762-50d2-8625i30g5369 ANSI-Medicare Part B 446n74cf-u64k-6844-vg16-8j998uuyx4rp 339c94qb-h70o-1477-zi09-4y085luuh2ti ANSI-Medicare Part B 7g7272zs-4827-3g7r-9qgl-57623z179w35 4i4454ts-7553-8q9z-6gge-05966k207l80 ANSI-Medicare Part B z308qj97-i49n-33os-364n-15338i36u85s t079nl10-s32t-74ih-753e-26913g64o17c ANSI-Medicare Part B yza05oju-876n-297p-b58w-472504e6o067 hkq73ciz-679q-477f-p68v-053841m3k583 ANSI-Medicare Part B 0m7y2p78-62e1-0cnh-a584-8lf38h9bf929 0q6l6d38-16b5-4nct-a129-2yc96y7uk979 ANSI-Medicare Part B v5nf714j-u303-6733-89yj-86h56kp89a7f h1ib326c-a031-7588-07lk-76k73di77q2e ANSI-Medicare Part B 9480b777-37q3-634x-q034-2v27820k73l3 6446q516-74b9-395x-g335-7p22590s07t1 ANSI-Medicare Part B 14w13mt0-l5i5-5o82-l5gj-2s35k79f10kd 43p95bt9-h2m7-3m31-h3um-1c62y42i09kh ANSI-Medicare Part B 35656ul3-3523-3258-15xd-y46jgvyld789 08222vc6-5391-3311-19rk-a32yxrbnc988 ANSI-Medicare Part B g3ioo18u-86og-85i4-55mm-g6u27384p420 k3xif67b-08nj-85y4-14mf-z9h30923q234 ANSI-Medicare Part B 8k53dd18-301y-7s1o-kk7h-2w6ea370ap28 4k29mx44-104y-9y5q-rz2k-2c0ls922kr74 ANSI-Medicare Part B 78241689-2678-77jj-g160-76186103tb4d 24469273-7792-90fl-j081-47783227hy9h MEDICAID -SWING BED [id number] MEDICARE -SWING BED [id number] ANSI-Medicare Part B 546d1ky4-84b8-08rl-470g-s95071r9w3i6 050j3ql2-13e4-67ui-912w-f08210n5k4a3 ANSI-Medicare Part B b012tb00-b246-9y33-lw2r-276839407108 x346ta80-h442-2m25-zp3u-265308073234 ANSI-Medicare Part B 996rj199-76nv-8924-i1l7-4382hn2njrer 362sd699-69xt-9535-v2w8-7973cn1nydiu ANSI-Medicare Part B a1111uq2-j1xl-5s50-mvp1-q0vluz3660xb u9378ps6-y2rk-4i42-vxi7-y4zcba1121gc MEDICARE PART A -I/P [id number] ANSI-Medicare Part B 91r668w0-0z26-69kq-72u8-7uwe20j210j7 78g601v4-0d29-17nn-53a1-1xwo67v858r9 ANSI-Medicare Part B 806217a4-e5y1-9549-38q1-ap20btom5in3 633331u9-h6o0-9677-08d5-ez44vvnh8ex4 ANSI-Medicare Part B v1j1h366-t476-512v-c35g-071872885g98 b2o4g969-d166-833g-g49s-790496402n92 ANSI-Medicare Part B 055256b5-gd53-454u-fmy3-0bc2o44t410x 954506g8-ta99-479d-dgv1-5ty9m92z845q ANSI-Medicare Part B em9v469a-d4b5-7689-6jv6-u05ra20ufnko fu0t786m-o0f9-0910-9sn9-d48zb96vbcof ANSI-Medicare Part B 7i89b9d0-702m-7f8f-hudb-7u228366d58k 6z37o6t8-091e-0d7z-vbxl-5i832507d99p ANSI-Medicare Part B 07227ii2-w097-2y21-lpk9-22rcb78c25bd 11984rb5-w382-7t88-moo5-15etk37u43xb ANSI-Medicare Part B 4v1966m7-958h-086f-gv76-324369533p22 8z2370w4-325o-668y-ld98-061307807l42 ANSI-Medicare Part B 40t61e0y-hz3j-5nsx-342r-l3zwyk70964j 41b20x9r-xt9h-2cet-276q-g0pnst81052e ANSI-Medicare Part B 5287nb3e-2p1z-9212-10ah-4f1ws45w6700 6180tm3y-4h4b-7453-48wq-3u9hp49z2314 ANSI-Medicare Part B 98yw0z05-bbg2-1l05-ke23-9838xs509298 58ie3m30-tdy4-0l13-uj48-2731cx083865 ANSI-Medicare Part B 6211m656-9e49-73q3-3555-64g4y48384y7 2088v094-1x82-00o1-3991-68z6t75494n2 ANSI-Medicare Part B o79us187-2179-2186-r21a-9a4e531febz7 f64il476-9457-7075-v89e-9r5u495udsf2 ANSI-Medicare Part B 599681y2-5284-3060-w93u-023173g51734 824275c3-2703-3999-j91s-868899m51577 ANSI-Medicare Part B 1a0172h9-0919-85g5-1j3a-6z5p34kk7553 7m8738i4-9387-51l1-4l4e-7v8g61xi4830 ANSI-Medicare Part B s90ridg1-sn02-788d-x010-046d9e534n60 c64bpol0-hm36-586l-b883-487x5z026s78 ANSI-Medicare Part B 0g7r65j3-70h2-289x-674s-9v07z3hp9q3e 6j1x13n3-21w7-993l-051w-5s89b7rl1d6n ANSI-Medicare Part B 451525ke-4593-0yqj-bu9a-5238fkzt0654 070285ad-2178-4frd-mn7j-2501hvgp9972 ANSI-Medicare Part B 00g02381-d4y5-7tv3-08h1-0834yb101269 49d99151-s2w1-4cz4-64n2-9830yx660111 ANSI-Medicare Part B h845850p-cmg2-1z3o-1804-i3e87z91604k c852168h-sxa1-3j7i-7800-p2s32w65760z ANSI-Medicare Part B 170oq6l1-80gg-1261-w00b-30na448d97f5 565to1v4-30iy-3277-v50z-55ts400u25q2 ANSI-Medicare Part B s34i3042-f87t-9a16-o7a0-6exd9b604795 x57u0011-k07h-[id number] ANSI-Medicare Part B [id number] ANSI-Medicare Part B [id number] ANSI-Medicare Part B [id number] ANSI-Medicare Part B [id number] ANSI-Medicare Part B [id number] ANSI-Medicare Part B [id number] MEDICARE PART B -PHYSICIAN [id number] 18 [id number] MEDICAID -I [id number] MEDICARE PART A -I [id number] MEDICAID [facility] [id number] SP [id number] MEDICARE [id number] SP [id number] A MEDICARE [id number] SP [id number] A MEDICAID [facility] [id number] SP [id number] MEDICARE [id number] SP [id number] MEDICARE UNAVAILABLE [place] BLE MEDICARE [id number] SP [id number] SELF PAY UNAVAILABLE [place] B[place] MEDICAID UNAVAILABLE SP [place] BLE MEDICAID M [id number] S [id number] MEDICARE C [id number] S [id number] A [place] Medicare Primary [id number] Self [id number] MEDICARE - [facility] [id number] S [id number] [employer] [facility] MEBKFLHZ S MEB KFLHZ AETNA MEDICARE [id number] SP MEBKF [id number] [facility] MEDICAID [facility] [id number] S [id number] [facility] [id number] SP [id number] [facility] MEDICAID [facility] [id number] S [id number] SELF PAY SP UNAVAILABLE S UNA[place]ILA BLE [id number] Problems, Conditions, and Diagnoses Code Display Name Description Problem Type Effective Dates Data Source(s) Z95.1 Hx of CABG Hx of CABG [id number] 09/16/2019 12:00:00 AM ED T [facility] I25.5 Ischemic cardiomyopathy Ischemic cardiomyopathy 172308 09/16/2019 12:00:00 AM EDT [facility] G40.109 Simple partial seizure disorder Simple partial s eizure disorder [id number] 09/13/2019 12:00:00 AM EDT [facility] G62.9 Polyneuropathy Polyneuropathy [id number] 09/13/2019 12:00: 00 AM EDT [facility] F41.9 Anxiety Anxiety [id number] 09/13/2019 12:00:00 AM ED [facility] K21.9 Gastroesophageal reflux disease without esophagitis Gastroesophageal reflux disease without esophagitis [id number] 09/13/2019 12:00:00 AM ED [facility] E78.49 Other hyperlipidemia Other hyperlipidemia [id number] 09/13/2019 12:00:00 AM EDT [facility] R47.01 Aphasia Aphasia [id number] 09/13/2019 12:00:00 AM ED T [facility] I10 Essential hypertension Essential hypertension [id number] 09/13/2019 12:00:00 AM EDT [facility] I48.21 Permanent atrial fibrillation Permanent atrial fibrill ation [id number] 09/13/2019 12:00:00 AM EDT [facility] I63.9 Stroke Stroke [id number] 09/13/2019 12:00:00 AM ED [facility] S72.001D Closed fracture of right hip with routin e healing Closed fracture of right hip with routine healing [id number] 09/13/2019 12:00:00 AM EDT [facility] D539 Nutritional anemia, unspecified Nutritional anemia, un specified Diagnosis 07/14/2020 02:10:00 PM [facility] U02739 Cellulitis of other sites Cellulitis of other sites Di agnosis 06/04/2020 03:06:00 PM [facility] G4089 Other seizures Other seizures Diagnosis 05/14/2020 09:53: 00 AM [facility] I639 Cerebral infarction, unspecified Cerebral infarc tion, unspecified Diagnosis 05/14/2020 09:53:00 AM [facility] I4820 Chronic atrial fibrillation, unspecified Chronic atrial fibrillation, unspecified Diagnosis 05/14/2020 09:53:00 AM [facility] N1830 Chronic kidney disease, stage 3 unspecif ied Chronic kidney disease, stage 3 unspecified Diagnosis 05/14/2020 09:53:00 AM [facility] I58501 Cellulitis of right lower limb Cellulitis of right low er limb Diagnosis 11/14/2019 07:47:00 AM EDT [facility] R609 Edema, unspecified Edema, unspecified Diagnosis 0 06:53:00 AM EDT [facility] K219 Gastro-esophageal reflux disease without esophagitis Gastro-esophageal reflux disease without esophagitis Diagnosis 10/31/2019 06:53:00 AM ED T [facility] E785 Hyperlipidemia, unspecified Hyperlipidemia, unspecifie d Diagnosis 10/31/2019 06:53:00 AM EDT [facility] B42885 Cellulitis of left lower limb Cellulitis of left lower limb Diagnosis 10/19/2019 09:08:00 AM EDT [facility] S72.001A Fracture of unspecified part of neck of right femur, initial encounter for closed fracture Fracture of unspecified part of neck of Diagnosis 09/13/2019 10:40:00 PM EDT [facility] H90897 Unspecified place in fci as the place of occurrence of the external cause Unspecified place in fci as the place of occurrence of the external cause Diagnosis 09/13/2019 04:36:00 PM EDT [facility] [id number] Fall on same level, unspecified, initial encounter Fall on same level, unspecified, initial encounter Diagnosis 09/13/2019 04:36:00 PM EDT [facility] Z7901 intermediate card tender (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) 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 of 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 s intermediate card tender (current) use of 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s Diagnosis 09/13/2019 04:36:00 PM EDT [facility] I10 Essential (primary) hypertension Essential (primary) h ypertension Diagnosis 09/13/2019 04:36:00 PM EDT [facility] 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 Diagnosis 09/13/2019 04:36:00 PM EDT [facility] 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, 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, bilateral Diagnosis 0 09/13/2019 04:36:00 PM EDT [facility] X21327 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 with unspecified severity Non-pressure chronic ulcer of left heel and midfoot with unspecified severity Diagnosis 08/08/2019 07:38:00 AM EDT [facility] V91511 Varicose veins of left lower extremity w ith ulcer of heel and midfoot Varicose veins of left lower extremity with ulcer of heel and midfoot Diagnosis 08/08/2019 07:38:00 AM EDT [facility] I509 Heart failure, unspecified Heart failure, unspecified Diagnosis 08/08/2019 07:38:00 AM EDT [facility] [facility] I[facility] Venous insufficiency (chronic) (peripher al) Venous insufficiency (chronic) (peripheral) Diagnosis 08/08/2019 07:38:00 AM EDT [facility] [id number] Localized swelling, mass and lump, lower limb, bilateral Localized swelling, mass and lump, lower limb, bilateral Diagnosis 020 07:38:00 AM EDT [facility] B961 Klebsiella pneumoniae [K. pn eumoniae] as the cause of diseases classified elsewhere Klebsiella pneumoniae [K. pneumoniae] as the cause of diseases classified elsewhere Diagnosis 07/09/2019 02:00:00 PM [facility] [id number] Unspecified atrial fibrillation Unspecified atrial fib rillation Diagnosis 07/09/2019 02:00:00 PM [facility] R600 Localized edema Localized edema Diagnosis 07/09/2019 02:0 0:00 PM [facility] D649 Anemia, unspecified Anemia, unspecified Diagnosis 0 07/09/2019 02:00:00 PM [facility] [id number] Personal history of other venous thrombo sis and embolism Personal history of other venous thrombosis and embolism Diagnosis 07/09/2019 02:00:00 PM [facility] [id number] Acute embolism and thrombosis of femoral vein, bilateral Acute embolism and thrombosis of femoral vein, bilateral Diagnosis 07/09/2019 02:00:0 0 PM [facility] [id number] Other pulmonary embolism without acute c or pulmonale Other pulmonary embolism without acute cor pulmonale Diagnosis 07/09/2019 09:20:00 AM [facility] Surgeries/Procedures Procedure Description Date Indications Data Source(s) ECG ROUTINE ECG W/LEAST 12 LDS W/I&R 07/14/2020 12:00: 00 AM EST [facility] (Neymar Hilario MD) ECHO TTHRC R-T 2D W/WOM-MODE COMPL SPEC&COLR DOP 07/14 12:00:00 AM EST [facility] (Neymar Hilario [facility] ELECTROCARDIOGRAM, COMPLETE (EKG) ELECTROCARDIOGRAM, COMPLET E (EKG) 03/30/2020 12:00:00 AM [facility] ([facility]) ELECTROCARDIOGRAM, COMPLETE (EKG) ELECTROCARDIOGRAM, COMPLET E (EKG) 03/30/2020 12:00:00 AM [facility] ([facility]) BLOOD COUNT COMPLETE AUTOMATED CBC Routine 09/18/2019 5:48 A M EDT 09/18/2019 09:48:00 AM EDT [facility] BASIC METABOLIC PANEL CALCIUM TOTAL BASIC METABOLIC PANEL Routi ne 09/18/2019 5:48 AM EDT 09/18/2019 09:48:00 AM EDT [facility] BLOOD COUNT HEMATOCRIT HEMATOCRIT Timed 09/17/2019 11:19 PM EDT 09/18/2019 03:19:00 AM EDT [facility] BLOOD COUNT HEMOGLOBIN HEMOGLOBIN AND HEMATOCRIT, BLOOD Routine 09/17/2019 1:47 PM EDT 09/17/2019 05:47:00 PM EDT [facility] BLOOD COUNT COMPLETE AUTOMATED CBC Routine 09/17/2019 5:59 A M EDT 09/17/2019 09:59:00 AM EDT [facility] BASIC METABOLIC PANEL CALCIUM TOTAL BASIC METABOLIC PANEL Routi ne 09/17/2019 5:59 AM EDT 09/17/2019 09:59:00 AM EDT [facility] IRON BINDING CAPACITY IRON PANEL Add-On 09/16/2019 8:03 AM EDT 09/16/2019 12:03:00 PM EDT [facility] 25 HYDROXY INCLUDES FRACTIONS IF PERFORMED VITAMIN D 25 HYDROXY Add-On 09/16/2019 8:03 AM EDT 09/16/2019 12:03:00 PM EDT [facility] BLOOD COUNT COMPLETE AUTOMATED CBC STAT 09/16/2019 8:03 A M EDT 09/16/2019 12:03:00 PM EDT [facility] FERRITIN FERRITIN Add-On 09/16/2019 8:03 AM EDT 09/16/2019 12:03:00 PM EDT [facility] MAGNESIUM MAGNESIUM Routine 09/16/2019 7:08 AM EDT 09/16/2019 11:08:00 AM EDT [facility] CALCIUM IONIZED CALCIUM, IONIZED Routine 09/16/2019 7:08 AM EDT 09/16/2019 11:08:00 AM EDT [facility] BASIC METABOLIC PANEL CALCIUM TOTAL BASIC METABOLIC PANEL Routi ne 09/16/2019 7:08 AM EDT 09/16/2019 11:08:00 AM EDT [facility] BLOOD COUNT HEMATOCRIT HEMATOCRIT Timed 09/15/2019 11:25 PM EDT 09/16/2019 03:25:00 AM EDT [facility] URINE CULTURE HOLD SPECIMEN URINE CULTURE HOLD SPECIMEN Routine 09/15/2019 10:56 PM EDT 09/16/2019 02:56:00 AM EDT [facility] URINE MICROSCOPIC URINE MICROSCOPIC Add-On 09/15/2019 10:56 PM EDT 09/16/2019 02:56:00 AM EDT [facility] URNLS DIP STICK/TABLET RGNT AUTO W/O MICROSCOPY URINALYSIS W/O MICRO Routine 09/15/2019 10:56 PM EDT 09/16/2019 02:56:00 AM EDT [facility] XR FLUORO UP TO 1 HR XR FLUORO UP TO 1 HR STAT 09/15/2019 10:38 AM EDT 09/15/2019 02:38:16 PM EDT [facility] BLOOD COUNT COMPLETE AUTOMATED CBC Routine 09/15/2019 5:58 A M EDT 09/15/2019 09:58:00 AM EDT [facility] BASIC METABOLIC PANEL CALCIUM TOTAL BASIC METABOLIC PANEL Routi ne 09/15/2019 5:58 AM EDT 09/15/2019 09:58:00 AM EDT [facility] XR CHEST PORTABLE XR CHEST PORTABLE Routine 09/14/2019 1:37 PM EDT 09/14/2019 05:37:22 PM EDT [facility] ECG ROUTINE ECG W/LEAST 12 LDS TRCG ONLY W/O I&R ECG 12-LEAD STAT 09/14/2019 11:49 AM EDT 09/14/2019 03:49:30 PM EDT [facility] IRON BINDING CAPACITY IRON PANEL Routine 09/14/2019 11:37 AM EDT 09/14/2019 03:37:00 PM EDT [facility] 25 HYDROXY INCLUDES FRACTIONS IF PERFORMED VITAMIN D 25 HYDROXY Routine 09/14/2019 11:37 AM EDT 09/14/2019 03:37:00 PM EDT [facility] PROTHROMBIN TIME PROTIME-INR Routine 09/14/2019 11:37 AM EDT 09/14/2019 03:37:00 PM EDT [facility] MAGNESIUM MAGNESIUM Routine 09/14/2019 11:37 AM EDT 09/14/2019 03:37:00 PM EDT [facility] FERRITIN FERRITIN Routine 09/14/2019 11:37 AM EDT 09/14/2019 03:37:00 PM EDT [facility] CALCIUM IONIZED CALCIUM, IONIZED Routine 09/14/2019 11:37 AM EDT 09/14/2019 03:37:00 PM EDT [facility] ECHO TTHRC R-T 2D W/WOM-MODE COMPL SPEC&COLR DOP ECHOCARDIO GRAM TRANSTHORACIC Routine 09/14/2019 10:16 AM EDT 09/14/2019 02:16:36 PM EDT [facility] DUP-SCAN XTR VEINS UNILATERAL/LIMITED STUDY US LOWER EXTREM ITY VENOUS RIGHT Routine 09/14/2019 8:44 AM EDT 09/14/2019 12:44:21 PM EDT [facility] IRON BINDING CAPACITY IRON PANEL Add-On 09/14/2019 2:27 AM EDT 09/14/2019 06:27:00 AM EDT [facility] TROPONIN QUANTITATIVE TROPONIN I Routine 09/14/2019 2:27 AM EDT 09/14/2019 06:27:00 AM EDT [facility] BLOOD COUNT COMPLETE AUTOMATED CBC Routine 09/14/2019 2:27 A M EDT 09/14/2019 06:27:00 AM EDT [facility] FERRITIN FERRITIN Add-On 09/14/2019 2:27 AM EDT 09/14/2019 06:27:00 AM EDT [facility] CYANOCOBALAMIN VITAMIN B-12 VITAMIN B12 Add-On 09/14/2019 2:27 AM EDT 09/14/2019 06:27:00 AM EDT [facility] CALCIUM IONIZED CALCIUM, IONIZED Routine 09/14/2019 2:27 AM EDT 09/14/2019 06:27:00 AM EDT [facility] BASIC METABOLIC PANEL CALCIUM TOTAL BASIC METABOLIC PANEL Routi ne 09/14/2019 2:27 AM EDT 09/14/2019 06:27:00 AM EDT [facility] LACTATE LACTIC ACID Timed 09/14/2019 2:25 AM EDT 09/14/2019 06:25:00 AM EDT [facility] RADIOLOGIC EXAMINATION PELVIS 1/2 VIEWS XR PELVIS LIMITED STAT 09/14/2019 1:45 AM EDT 09/14/2019 05:45:45 AM EDT [facility] XR CHEST PORTABLE XR CHEST PORTABLE STAT 09/14/2019 1:44 AM EDT 09/14/2019 05:44:06 AM EDT [facility] XR FEMUR AP AND LATERAL RIGHT XR FEMUR AP AND LATERAL RIGHT STA T 09/14/2019 1:42 AM EDT 09/14/2019 05:42:01 AM EDT [facility] ECG ROUTINE ECG W/LEAST 12 LDS TRCG ONLY W/O I&R ECG 12-LEAD STAT 09/13/2019 11:14 PM EDT 09/14/2019 03:14:23 AM EDT [facility] NT PRO BNP NT PRO BNP STAT 09/13/2019 10:50 PM EDT 09/14/2019 02:50:00 AM EDT [facility] TROPONIN QUANTITATIVE TROPONIN I Timed 09/13/2019 10:50 PM EDT 09/14/2019 02:50:00 AM EDT [facility] 25 HYDROXY INCLUDES FRACTIONS IF PERFORMED VITAMIN D 25 HYDROXY Add-On 09/13/2019 10:50 PM EDT 09/14/2019 02:50:00 AM EDT [facility] THROMBOPLASTIN TIME PARTIAL PLASMA/WHOLE BLOOD APTT STAT 09/13/2019 10:50 PM EDT 09/14/2019 02:50:00 AM EDT [facility] PROTHROMBIN TIME PROTIME-INR STAT 09/13/2019 10:50 PM EDT 09/14/2019 02:50:00 AM EDT [facility] BLOOD COUNT COMPLETE AUTO&AUTO DIFRNTL WBC COUNT CBC AND DIFFER ENTIAL STAT 09/13/2019 10:50 PM EDT 09/14/2019 02:50:00 AM EDT [facility] BLOOD TYPING ABO TYPE AND SCREEN Routine 09/13/2019 10:50 PM EDT 09/14/2019 02:50:00 AM EDT [facility] THYROID STIMULATING HORMONE TSH TSH STAT 09/13/2019 10:50 PM EDT 09/14/2019 02:50:00 AM EDT [facility] THYROXINE FREE T4, FREE STAT 09/13/2019 10:50 PM EDT 09/14/2019 02:50:00 AM EDT [facility] MAGNESIUM MAGNESIUM STAT 09/13/2019 10:50 PM EDT 09/14/2019 02:50:00 AM EDT [facility] HEMOGLOBIN GLYCOSYLATED A1C HEMOGLOBIN A1C STAT 09/13/2019 10:50 PM EDT 09/14/2019 02:50:00 AM EDT [facility] FERRITIN FERRITIN Add-On 09/13/2019 10:50 PM EDT 09/14/2019 02:50:00 AM EDT [facility] HEPATIC FUNCTION PANEL HEPATIC FUNCTION PANEL STAT 09/13/2019 10 :50 PM EDT 09/14/2019 02:50:00 AM EDT [facility] LIPID PANEL LIPID PANEL STAT 09/13/2019 10:50 PM EDT 09/14/2019 02:50:00 AM EDT [facility] BASIC METABOLIC PANEL CALCIUM TOTAL BASIC METABOLIC PANEL STAT 09/13/2019 10:50 PM EDT 09/14/2019 02:50:00 AM EDT [facility] LAB RESULTS (OUTSIDE/HISTORICAL) LAB RESULTS (OUTSIDE/HISTORICA L) 08/14/2019 2:22 PM EDT 08/14/2019 06:22:39 PM EDT [facility] BLOOD COUNT COMPLETE AUTO&AUTO DIFRNTL WBC COUNT CBC AND DIFFER ENTIAL Routine 08/14/2019 3:11 AM EDT 08/14/2019 07:11:00 AM EDT [facility] BASIC METABOLIC PANEL CALCIUM TOTAL BASIC METABOLIC PANEL Routi ne 08/14/2019 3:11 AM EDT 08/14/2019 07:11:00 AM EDT [facility] BASIC METABOLIC PANEL CALCIUM TOTAL BASIC METABOLIC PANEL Routi ne 08/13/2019 3:55 AM EDT 08/13/2019 07:55:00 AM EDT [facility] BLOOD COUNT COMPLETE AUTO&AUTO DIFRNTL WBC COUNT CBC AND DIFFER ENTIAL Routine 08/12/2019 6:12 AM EDT 08/12/2019 10:12:00 AM EDT [facility] BASIC METABOLIC PANEL CALCIUM TOTAL BASIC METABOLIC PANEL Routi ne 08/12/2019 6:12 AM EDT 08/12/2019 10:12:00 AM EDT [facility] BLOOD COUNT COMPLETE AUTO&AUTO DIFRNTL WBC COUNT CBC AND DIFFER ENTIAL Routine 08/11/2019 6:48 AM EDT 08/11/2019 10:48:00 AM EDT [facility] BASIC METABOLIC PANEL CALCIUM TOTAL BASIC METABOLIC PANEL Routi ne 08/11/2019 6:48 AM EDT 08/11/2019 10:48:00 AM EDT [facility] DRUG SCREEN QUALITATIVE VANCOMYCIN VANCOMYCIN, TROUGH Routine 08/10/2019 8:21 AM EDT 08/10/2019 12:21:00 PM EDT [facility] BLOOD COUNT COMPLETE AUTO&AUTO DIFRNTL WBC COUNT CBC AND DIFFER ENTIAL Routine 08/10/2019 5:29 AM EDT 08/10/2019 09:29:00 AM EDT [facility] BASIC METABOLIC PANEL CALCIUM TOTAL BASIC METABOLIC PANEL Routi ne 08/10/2019 5:29 AM EDT 08/10/2019 09:29:00 AM EDT [facility] BASIC METABOLIC PANEL CALCIUM TOTAL BASIC METABOLIC PANEL Routi ne 08/09/2019 12:27 PM EDT 08/09/2019 04:27:00 PM EDT [facility] CT LOWER EXTREMITY W/CONTRAST MATERIAL CT LOWER EXTREMITY W ITH CONTRAST [id number] Routine 08/08/2019 10:16 PM EDT 08/09/2019 02:16:21 AM EDT [facility] CULTURE BACTERIAL BLOOD AEROBIC W/ID ISOLATES BLOOD CULTURE R outine 08/08/2019 7:23 PM EDT 08/08/2019 11:23:00 PM EDT [facility] CULTURE BACTERIAL BLOOD AEROBIC W/ID ISOLATES BLOOD CULTURE R outine 08/08/2019 7:23 PM EDT 08/08/2019 11:23:00 PM EDT [facility] PROTHROMBIN TIME PROTIME INR Routine 08/08/2019 7:23 PM EDT 08/08/2019 11:23:00 PM EDT [facility] BLOOD COUNT COMPLETE AUTO&AUTO DIFRNTL WBC COUNT CBC AND DIFFER ENTIAL Routine 08/08/2019 7:23 PM EDT 08/08/2019 11:23:00 PM EDT [facility] COMPREHENSIVE METABOLIC PANEL COMPREHENSIVE METABOLIC PANEL Rou lori 08/08/2019 7:23 PM EDT 08/08/2019 11:23:00 PM EDT [facility] DUP-SCAN XTR VEINS UNILATERAL/LIMITED STUDY US DOPPLE R LOWER EXTREMITY UNILATERAL VENOUS LIMITED [id number] Routine 08/08/2019 6:46 PM EDT 08/08/2019 10:46:02 PM [facility] Plain Radiography of Abdomen Plain Radiography of Abdomen 12:00:00 AM [facility] Plain Radiography of Chest Plain Radiography of Chest 2019 12:00:00 AM [facility] Computerized Tomography (CT Scan) of Chest and Abdomen using Other Contrast Computerized Tomography (CT Scan) of Chest and Abdomen using Other Contrast 07/09/2019 12:00:00 AM [facility] Monitoring of Cardiac Electrical Activity, External Ap proach Monitoring of Cardiac Electrical Activity, External Approach 07/09/2019 12:00:00 AM [facility] Introduction of Vasopressor into Peripheral Vein, Perc utaneous Approach Introduction of Vasopressor into Peripheral Vein, Percutaneous Approach 07/09/2019 12:00:00 AM [facility] Introduction of Anesthetic Agent into Re spiratory Tract, Via Natural or Artificial Opening Introduction of Anesthetic Agent into Re spiratory Tract, Via Natural or Artificial Openin 07/09/2019 12:00:00 AM [facility] Introduction of Other Anti-infective int o Peripheral Vein, Percutaneous Approach Introduction of Other Anti-infective int o Peripheral Vein, Percutaneous Approach 07/09/2019 12:00:00 AM [facility] No history of type 2 diabetes mellitus No history of type 2 diabetes mellitus 05/27/2019 12:00:00 AM [facility]) No history of coronary artery disease No history of coronary artery disease 05/27/2019 12:00:00 AM [facility] ([facility]) History of hyperlipidemia History of hyperlipidemia 05/27/2019 1 2:00:00 AM [facility] ([facility]) History of essential hypertension History of essential hyper tension 05/27/2019 12:00:00 AM [facility] ([facility]) Hx CVA between 5 - 10 years ago, in [facility]. ~[facility] [place] [facility]. ~Surgery- tonsillectomy Hx CVA between 5 - 10 years ago, in [facility]. ~[facility] in [facility] [place] [facility] 2 years. ~Surgery- tonsillectomy 05/27/2019 12:00:00 AM [facility] ([facility]) Results ID Date Data Source [id number] 07/14/2020 03:18:00 PM [facility] Value Range Interpretation Code Description Data Miroslava rce(s) Supporting Document(s) Cobalamin (Vitamin B12) [Mass/volume] in Serum or Plasma 408 PG/ML 232 - 1245 [facility] ID Date Data Source [id number] 07/14/2020 03:18:00 PM [facility] Value Range Interpretation Code Description Data Miroslava rce(s) Supporting Document(s) Folate [Mass/volume] in Serum or Plasma 15.4 NG/ML 5.6 - 45.8 [facility] ID Date Data Source [id number] 07/14/2020 03:18:00 PM [facility] Value Range Interpretation Code Description Data Miroslava rce(s) Supporting Document(s) Ferritin [Mass/volume] in Serum or Plasma 106.0 ng/mL 5.0 - 244 [facility] ID Date Data Source [id number] 07/14/2020 02:59:00 PM [facility] Value Range Interpretation Code Description Data Miroslava rce(s) Supporting Document(s) Reticulocytes/100 erythrocytes in Blood by Automated count 2.2 % 0.5 - 1.5 H [facility] ID Date Data Source [id number] 07/14/2020 02:58:00 PM [facility] Value Range Interpretation Code Description Data Miroslava rce(s) Supporting Document(s) Iron [Mass/volume] in Serum or Plasma 46 UG/DL 42 - 135 [facility] ID Date Data Source [id number] 06/10/2020 09:44:00 AM [facility] Value Range Interpretation Code Description Data Miroslava rce(s) Supporting Document(s) CULTURE WOUND [facility] _CULTURE WOUND_$$[id number]$$[id number]$$[id number]$$[id number]$$[id number] DATE/TIME: 06/10/2020 08:08Culture: CULTURE WOUND Status: FinalIsolate 1 Enterococcus faecalis Flag: A . . . . . . .7Heavy growthCiprofloxacin SLevofloxacin STetracycline R Previous result entered on 06/09/2020 07:29 ET Enterococcus faecalis Previous result entered on 06/08/2020 09:58 ET Enterococcus faecalis Previous result entered on 06/07/2020 03:18 ET Microbiological testing to rule out the presence of possible pathogensis in progress.Aerobic Bacterial Culture: [id number] faecalis Flag: AIsolate 2 Staphylococcus aureus Flag: A . . . . . . .3Heavy growth -- Continued on next page --Patient: LOUISE James Order: [id number] Page 2Culture: CULTURE WOUND Status: Final Most isolates of Staphylococcus sp. produce a beta-lactamase enzymerendering them resistant to penicillin. Please contact the laboratoryif penicillin is being considered for therapy.Based on susceptibility to oxacillin this isolate would besusceptible to:*Penicillinase-stable penicillins, such as: Cloxacillin, Dicloxacillin, Nafcillin*Beta-lactam combination agents, such as: Amoxicillin-clavulanic acid, Ampicillin-sulbactam, Piperacillin-tazobactam*Oral cephems, such as: Cefaclor, Cefdinir, Cefpodoxime, Cefprozil, Cefuroxime, Cephalexin, Loracarbef*Parenteral cephems, such as: Cefazolin, Cefepime, Cefotaxime, Cefotetan, Ceftaroline, Ceftizoxime, Ceftriaxone, Cefuroxime*Carbapenems, such as: Doripenem, Ertapenem, Imipenem, Meropenem Previous result entered on 06/09/2020 07:29 ET Staphylococcus aureus Previous result entered on 06/08/2020 09:58 ET Staphylococcus aureusStaphylococcus aureus Flag: AIsolate 3 Acinetobacter pittii Flag: A . . . . . . .6Heavy growth Previous result entered on 06/09/2020 07:29 ET Acinetobacter pittii Previous result entered on 06/08/2020 09:58 ET Gram negative rodsAcinetobacter pittii Flag: APatient: LOUISE James Order: [id number] Page 3Culture: CULTURE WOUND Status: Final ISOLATE 1 Enterococcus faecalisISOLATE 2 Staphylococcus aureusISOLATE 3 Acinetobacter pittii Isolate 1 Isolate 2 Isolate 3Antibiotic RAJENDRA Int RAJENDRA Int RAJENDRA IntUnits ug/mL ug/mL ug/mL Ampicillin/Sulbactam Cefepime Cefotaxime Ceftazidime Ceftriaxone Ciprofloxacin Clindamycin Erythromycin Gentamicin Levofloxacin Linezolid Meropenem Moxifloxacin Oxacillin Penicillin S S Quinupristin/Dalfopristin Rifampin Tetracycline Tobramycin Trimethoprim/Sulfa Vancomycin S S P1 Test performed by: [facility] #: [id number] [address] [place] [address] [id number] [facility] [id number] Director : Jarod Ratliff MD NPI #:Software Manager : 06/08/[email or web address].SENT REF 06/08/20.1018.XMT.SENT REF 06/09/20.56.XMT.SENT REF 06/10/20.44.XMT.SENT REF ID Date Data Source [id number] 05/20/2020 07:59:00 AM [facility] Name Value Range Interpretation Code Description Data Miroslava rce(s) Supporting Document(s) Levetiracetam [Mass/volume] in Serum or Plasma <1.0 ug/mL 10.0-40.0 L [facility] Verified by repeat analysisThis test was developed and its performance characteristicsdetermined by [facility]. It has not been cleared or approvedby the Food and Drug Administration. ID Date Data Source [id number] 05/15/2020 10:06:00 AM [facility] Name Value Range Interpretation Code Description Data Miroslava rce(s) Supporting Document(s) Triiodothyronine (T3) Free [Mass/volume] in Serum or Plasma 2.5 pg/ mL 2.0-4.4 [facility] ID Date Data Source [id number] 05/14/2020 11:23:00 AM [facility] Name Value Range Interpretation Code Description Data Miroslava rce(s) Supporting Document(s) Thyrotropin [Units/volume] in Serum or Plasma by Detec tion limit <= 0.05 mIU/L 2.43 uIU/mL 0.47 - 5.01 [facility] ID Date Data Source [id number] 05/14/2020 11:23:00 AM [facility] Name Value Range Interpretation Code Description Data Miroslava rce(s) Supporting Document(s) Thyroxine (T4) free index in Serum or Plasma by calculation 1.21 NG/DL 0.93 - 1.70 [facility] ID Date Data Source [id number] 05/14/2020 11:11:00 AM [facility] Name Value Range Interpretation Code Description Data Miroslava rce(s) Supporting Document(s) [facility] Cholesterol [Mass/volume] in Serum or Plasma 140 MG/DL 131 - 200 [facility] Deprecated Triglyceride [Mass/volume] in Serum or Plasma 88 MG/DL 3 5 - 160 [facility] HDL 48 MG/DL 29 - 86 [facility] Cholesterol in LDL [Mass/volume] in Serum or Plasma by Direc t assay 84 mg/dL 65 - 175 [facility] Cholesterol.total/Cholesterol in HDL [Mass Ratio] in Serum o r Plasma 2.9 3.4 - 4.9 L [facility] LDL/HDL 1.75 1.00 - 3.55 [facility] CVE RISK CHOL/HDL LDL/HDLMEN: 1/2 AVERAGE 3.43 1.00 AVERAGE 4.97 3.55 2X AVERAGE 9.55 6.25 3X AVERAGE 23.99 7.99WOMEN: 1/2 AVERAGE 3.27 1.47 AVERAGE 4.44 3.22 2X AVERAGE 7.05 5.03 3X AVERAGE 11.04 6.14 ID Date Data Source [id number] 05/14/2020 11:11:00 AM EST [facility] Name Value Range Interpretation Code Description Data Miroslava rce(s) Supporting Document(s) COMPREHENSIVE METABOLIC PANEL [facility] COMPREHENSIVE METABOLIC PANEL Sodium [Moles/volume] in Serum or Plasma 142 mEq/L 134 - 153 [facility] Potassium [Moles/volume] in Serum or Plasma 4.4 mEq/L 3.6 - 5.0 [facility] Chloride [Moles/volume] in Serum or Plasma 104 mEq/L 98 - 107 [facility] Carbon dioxide, total [Moles/volume] in Serum or Plasma 28 MEQ/L 22 - 30 [facility] Glucose [Mass/volume] in Serum or Plasma 103 MG/DL 65 - 110 [facility] BUN 17 MG/DL 7 - 21 [facility] Creatinine [Mass/volume] in Serum or Plasma 1.1 MG/DL 0.7 - 1.5 [facility] BUN/CREAT 15 8 - 27 [facility] Protein [Mass/volume] in Serum or Plasma 7.6 G/DL 6.3 - 8.2 [facility] Albumin [Mass/volume] in Serum or Plasma 4.2 G/DL 3.9 - 5.0 [facility] Globulin [Mass/volume] in Serum by calculation 3.4 GM/DL 2.4 - 3.2 H [facility] A/G RATIO 1.2 0.8 - 2.0 [facility] Calcium [Mass/volume] in Serum or Plasma 9.4 MG/DL 8.4 - 10.2 [facility] Bilirubin.total [Mass/volume] in Serum or Plasma <0.7 MG/DL 0.2 - 1.3 [facility] Alkaline phosphatase [Enzymatic activity/volume] in Serum or Plasma 80 U/L 38 - 126 [facility] Aspartate aminotransferase [Enzymatic activity/volume] in Serum or Plasma 12 U/L 5 - 40 [facility] Alanine aminotransferase [Enzymatic activity/volume] in Seru m or Plasma <5 U/L 7 - 56 L [facility] Anion gap 3 in Serum or Plasma 10.0 mmol/L 8.0 - 16.0 [facility] AGE 70 yrs [facility] NON-AA GFR >60 mL/min [facility] AFR AMER GFR >60 mL/min [facility] Male GFR In terprentation 20-49 yrs >60 mL/min Normal 50-59 yrs >56 mL/min Normal 60-69 yrs >49 mL/min Normal 70-79yrs >42 mL/min Normal 80 and above >35 mL/min Normal Female GFR Interpretation 20-39 yrs >60 mL/min Normal 40-49 yrs >58 mL/min Normal 50-59 yrs >51 mL/min Normal 60-69 yrs >45 mL/min Normal 70-79 yrs >39 mL/min Normal 80 and above >32 mL/min Normal ID Date Data Source [id number] 05/14/2020 10:23:00 AM EST [facility] Name Value Range Interpretation Code Description Data Miroslava rce(s) Supporting Document(s) CBC NO DIFF [facility] ital COMPLETE BLOOD COUNT Leukocytes [#/volume] in Blood by Automated count 5.7 10^3/uL 4.2 - 1 1.0 [facility] Erythrocytes [#/volume] in Blood by Automated count 4.06 10^6/uL 4. 50 - 6.30 L [facility] Hemoglobin [Mass/volume] in Blood 12.6 g/dL 14.0 - 16.0 L [facility] Hematocrit [Volume Fraction] of Blood by Automated count 40.5 % 4 1.0 - 51.0 L [facility] Erythrocyte mean corpuscular volume [Entitic volume] by Auto mated count 99.8 fL 80.0 - 94.0 H [facility] Erythrocyte mean corpuscular hemoglobin [Entitic mass] by Automated count 31.0 pg 27.0 - 34.0 [facility] Erythrocyte mean corpuscular hemoglobin concentration [Mass/volume] by Automated count 31.1 g/dL 31.0 - 36.0 [facility] Erythrocyte distribution width [Ratio] by Automated count 14.3 % 11.5 - 14.8 [facility] Platelets [#/volume] in Blood by Automated count 230 10^3/uL 150 - 45 0 [facility] Platelet mean volume [Entitic volume] in Blood by Automated count 10.3 fL 7.4 - 10.4 [facility] ID Date Data Source [id number] 05/06/2020 01:02:00 PM [facility] ([facility]) Name Value Range Interpretation Code Description Data Miroslava rce(s) Supporting Document(s) Reported Physicians See Note Reported Physici aleta [place] ([facility]) Note: Reported Physicians:Ordering: Nelson Sommers AAttending: NELSON RADFORDReferring: NELSON RADFORDConsulting: NO, PCPCopy To: Nelson Radford ID Date Data Source [id number] 05/06/2020 01:02:00 PM [facility] [place] ([facility]) Name Value Range Interpretation Code Description Data Miroslava rce(s) Supporting Document(s) CULTURE WOUND See Note CULTURE WOUND [place] ([facility]) Note: _CULTURE WOUND_ [id number]$$[id number]$$[id number]$$[id number]$$[id number]$$[id number] DATE/TIME: 05/12/2020 11:06Culture: CULTURE WOUND Status: FinalIsolate [...] 05/10/2020 10:00 ET Staphylococcus aureusAerobic Bacterial Culture: [id number] aureus Flag: AIsolate 2 Acinetobacter lwoffii Flag: A . . . . . . .8Moderate growth Previous result entered on 05/11/2020 13:35 ET -- Continued on next page --Patient: LOUISE James Order: [id number] Page 2Culture: CULTURE WOUND Status: Final ====Gram negative rods Previous result entered on 05/10/2020 10:00 ET Gram negative rodsAcinetobacter toshiaii Flag: APatient: LOUISE James Order: [id number] Page 3Culture: CULTURE WOUND Status: Final =====ISOLATE [...] Vancomycin S S P1 Test performed by: ViktoriaWebs aSntiago HARVEY #: [id number] [address] [place] [address] [phone] [facility] [id number] Director : Jarod Ratliff MD NPI #:Software Manager : 05/11/20.0615.XMT.SENT REF 05/11/20.1546.XMT.SENT REF 05/12/20.1210.XMT.SENT REF ID Date Data Source [id number] 05/12/2020 12:09:00 PM EST [facility] Name Value Range Interpretation Code Description Data Miroslava rce(s) Supporting Document(s) CULTURE WOUND [facility] _CULTURE WOUND_$$[id number]$$[id number]$$[id number]$$[id number]$$[id number]$$[id number] DATE/TIME: 05/12/2020 11:06Culture: CULTURE WOUND Status: FinalIsolate 1 Staphylococcus aureus Flag: A . . . . . . .3Moderate growthMethicillin resistant (MRSA)Based on resistance to oxacillin this isolate would be resistant toall currently available beta-lactam antimicrobial agents, with theexception of the newer cephalosporins with anti- MRSA activity, such asCeftaroline Previous result entered on 05/11/2020 13:35 ET Staphylococcus aureus Previous result entered on 05/10/2020 10:00 ET Staphylococcus aureusAerobic Bacterial Culture: [id number] aureus Flag: AIsolate 2 Acinetobacter lwoffii Flag: A . . . . . . .8Moderate growth Previous result entered on 05/11/2020 13:35 ET -- Continued on next page --Patient: LOUISE James Order: [id number] Page 2Culture: CULTURE WOUND Status: Final ====Gram negative rods Previous result entered on 05/10/2020 10:00 ET Gram negative rodsAcinetobacter lwoffii Flag: APatient: LOUISE James Order: [id number] Page 3Culture: CULTURE WOUND Status: Final ====ISOLATE 1 Staphylococcus aureusISOLATE 2 Acinetobacter lwoffii Isolate [...] Vancomycin S S P1 Test performed by: [facility] #: [id number] [address] [place] [address] [phone] [facility] [id number] Director : Jarod Ratliff MD NPI #:Software Manager : 05/11/20.0615.XMT.SENT REF 05/11/20.1546.XMT.SENT REF 05/12/20.1210.XMT.SENT REF ID Date Data Source [id number] 11/19/2019 12:00:00 AM EDT [facility] Name Value Range Interpretation Code Description Data Miroslava rce(s) Supporting Document(s) 2019-nCoV RNA XXX DORA+probe-Imp [facility] This lab was ordered by [employer] and repo rted by [email or web address] ID Date Data Source [id number] 11/16/2019 06:38:00 AM EDT [facility] Name Value Range Interpretation Code Description Data Miroslava rce(s) Supporting Document(s) Levetiracetam [Mass/volume] in Serum or Plasma 33.3 ug/mL 10.0-40.0 [facility] This test was developed and its performa nce characteristicsdetermined by [facility]. It has not been cleared or approvedby the Food and Drug Administration. ID Date Data Source [id number] 11/14/2019 09:28:00 AM EDT [facility] Name Value Range Interpretation Code Description Data Miroslava rce(s) Supporting Document(s) [facility] Cholesterol [Mass/volume] in Serum or Plasma 109 MG/DL 131 - 200 L [facility] Deprecated Triglyceride [Mass/volume] in Serum or Plasma 87 MG/DL 3 5 - 160 [facility] HDL 37 MG/DL 29 - 86 [facility] al Cholesterol in LDL [Mass/volume] in Serum or Plasma by Direc t assay 58 mg/dL 65 - 175 L [facility] Cholesterol.total/Cholesterol in HDL [Mass Ratio] in Serum o r Plasma 2.9 3.4 - 4.9 L [facility] LDL/HDL 1.57 1.00 - 3.55 [facility] ital CVE RISK CHOL/HDL LDL/HDLMEN: 1/2 AVERAGE 3.43 1.00 AVERAGE 4.97 3.55 2X AVERAGE 9.55 6.25 3X AVERAGE 23.99 7.99WOMEN: 1/2 AVERAGE 3.27 1.47 AVERAGE 4.44 3.22 2X AVERAGE 7.05 5.03 3X AVERAGE 11.04 6.14 ID Date Data Source [id number] 11/14/2019 09:28:00 AM EDT [facility] Name Value Range Interpretation Code Description Data Miroslava rce(s) Supporting Document(s) COMPREHENSIVE METABOLIC PANEL [facility] COMPREHENSIVE METABOLIC PANEL Sodium [Moles/volume] in Serum or Plasma 139 mEq/L 134 - 153 [facility] Potassium [Moles/volume] in Serum or Plasma 3.9 mEq/L 3.6 - 5.0 [facility] Chloride [Moles/volume] in Serum or Plasma 102 mEq/L 98 - 107 [facility] Carbon dioxide, total [Moles/volume] in Serum or Plasma 25 MEQ/L 22 - 30 [facility] Glucose [Mass/volume] in Serum or Plasma 147 MG/DL 65 - 110 H [facility] BUN 21 MG/DL 7 - 21 [facility] Creatinine [Mass/volume] in Serum or Plasma 1.1 MG/DL 0.7 - 1.5 [facility] BUN/CREAT 19 8 - 27 [facility] Protein [Mass/volume] in Serum or Plasma 6.5 G/DL 6.3 - 8.2 [facility] Albumin [Mass/volume] in Serum or Plasma 3.9 G/DL 3.9 - 5.0 [facility] Globulin [Mass/volume] in Serum by calculation 2.6 GM/DL 2.4 - 3.2 [facility] A/G RATIO 1.5 0.8 - 2.0 [facility] Calcium [Mass/volume] in Serum or Plasma 9.3 MG/DL 8.4 - 10.2 [facility] Bilirubin.total [Mass/volume] in Serum or Plasma <0.7 MG/DL 0.2 - 1.3 [facility] Alkaline phosphatase [Enzymatic activity/volume] in Serum or Plasma 80 U/L 38 - 126 [facility] Aspartate aminotransferase [Enzymatic activity/volume] in Serum or Plasma 15 U/L 5 - 40 [facility] Alanine aminotransferase [Enzymatic activity/volume] in Seru m or Plasma 8 U/L 7 - 56 [facility] Anion gap 3 in Serum or Plasma 12.0 mmol/L 8.0 - 16.0 [facility] AGE 69 yrs [facility] NON-AA GFR >60 mL/min [facility] ital AFR AMER GFR >60 mL/min [facility] Male GFR In terprentation 20-49 yrs >60 mL/min Normal 50-59 yrs >56 mL/min Normal 60-69 yrs >49 mL/min Normal 70-79yrs >42 mL/min Normal 80 and above >35 mL/min Normal Female GFR Interpretation 20-39 yrs >60 mL/min Normal 40-49 yrs >58 mL/min Normal 50-59 yrs >51 mL/min Normal 60-69 yrs >45 mL/min Normal 70-79 yrs >39 mL/min Normal 80 and above >32 mL/min Normal ID Date Data Source [id number] 11/14/2019 08:32:00 AM EDT [facility] Name Value Range Interpretation Code Description Data Miroslava rce(s) Supporting Document(s) CBC NO DIFF [facility] ital COMPLETE BLOOD COUNT Leukocytes [#/volume] in Blood by Automated count 3.7 10^3/uL 4.2 - 1 1.0 L [facility] Erythrocytes [#/volume] in Blood by Automated count 3.63 10^6/uL 4. 50 - 6.30 L [facility] Hemoglobin [Mass/volume] in Blood 11.3 g/dL 14.0 - 16.0 L [facility] Hematocrit [Volume Fraction] of Blood by Automated count 35.3 % 4 1.0 - 51.0 L [facility] Erythrocyte mean corpuscular volume [Entitic volume] by Auto mated count 97.2 fL 80.0 - 94.0 H [facility] Erythrocyte mean corpuscular hemoglobin [Entitic mass] by Automated count 31.1 pg 27.0 - 34.0 [facility] Erythrocyte mean corpuscular hemoglobin concentration [Mass/volume] by Automated count 32.0 g/dL 31.0 - 36.0 [facility] Erythrocyte distribution width [Ratio] by Automated count 14.3 % 11.5 - 14.8 [facility] Platelets [#/volume] in Blood by Automated count 174 10^3/uL 150 - 45 0 [facility] Platelet mean volume [Entitic volume] in Blood by Automated count 11.1 fL 7.4 - 10.4 H [facility] ID Date Data Source [id number] 10/31/2019 09:16:00 AM EDT [facility] Name Value Range Interpretation Code Description Data Miroslava rce(s) Supporting Document(s) [facility] Cholesterol [Mass/volume] in Serum or Plasma 116 MG/DL 131 - 200 L [facility] Deprecated Triglyceride [Mass/volume] in Serum or Plasma 137 MG/DL 3 5 - 160 [facility] HDL 38 MG/DL 29 - 86 [facility] al Cholesterol in LDL [Mass/volume] in Serum or Plasma by Direc t assay 55 mg/dL 65 - 175 L [facility] Cholesterol.total/Cholesterol in HDL [Mass Ratio] in Serum o r Plasma 3.1 3.4 - 4.9 L [facility] LDL/HDL 1.45 1.00 - 3.55 [facility] ital CVE RISK CHOL/HDL LDL/HDLMEN: 1/2 AVERAGE 3.43 1.00 AVERAGE 4.97 3.55 2X AVERAGE 9.55 6.25 3X AVERAGE 23.99 7.99WOMEN: 1/2 AVERAGE 3.27 1.47 AVERAGE 4.44 3.22 2X AVERAGE 7.05 5.03 3X AVERAGE 11.04 6.14 ID Date Data Source [id number] 10/31/2019 09:04:00 AM EDT [facility] Name Value Range Interpretation Code Description Data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 hip - Comminuted intertrochanteric femur fx.).PROGRESS AND PROCEDURESCourse of Care: 18:22 Sep 13 2019. Patient is stable. Symptoms better. 18:45 Sep 13 2019. Pt. has a R intertrochanteric femur fracture on CT and will need transfer to a higher level of care. I spoke with both the patient and his HCPOA (in [facility]) and they are in agreement that this should be repaired at a higher level of care. (There is no Orthopedics on-call here). I have spoken with [facility] in [place] and Dr. Holland (Accepting hospitalist). She will accept pt. as ambulance transfer. Critical care performed (130 minutes). Time is exclusive of separately billable procedures. Time includes: 10 Clinical Report - Physicians/Mid Levels [facility] Emergency Department [address] [place] [address] Phone #: ext- [phone] 09/13/2019 16:36 Patient: ROBERTO RAO Sex: M : 1950 Age: 69y direct patient care, patient reassessment, coordination of patient care, interpretation of data (laboratory data, pulse oximetry, chest xrays and prior electrocardiograms), review of patient's medical records, medical consultation and documentation of patient care- see progress notes. Procedures included in critical care time: peripheral IV placement and phlebotomy- see progress notes. Disposition: Benefits, risks and alternatives to transfer explained to patient, daughter and patient ambulatory services representative. Transferred to [facility]. Summary of care (CCDA) provided to transport team, EMS, patient, family and transfer facility via paper and digital media. 18:45 Sep 13 2019 Transfer to [facility] in [place] by ambulance as per Dr. Holland (Accepting Hospitalist). UTI (catheter associated) was not present prior to transfer. Pressure ulcer was not present prior to transfer. Vascular infection (catheter associated) was not present prior to transfer. Surgical site infection was not present prior to transfer. An object left in surgery was not present prior to transfer. Blood incompatibility was not present prior to transfer. Air embolism was not present prior to transfer.CLINICAL IMPRESSION Chronic atrial fibrillation with controlled rate. Chronic deep venous thrombosis of the right femoral vein and popliteal and tibial vein and left femoral vein and popliteal vein. Oral anticoagulation therapy with mcfp use, high PT and high INR (Xarelto). Closed nondisplaced oblique, comminuted, intertrochanteric fracture of the right femur. No supracondylar, intercondylar or transcondylar fracture of the femur. No fracture of the distal femur or medial condyle or lateral condyle of the femur. No angulated fracture of the femur.(Electronically signed by Alex Vogt, Physician 09/14/2019 03:54) Name Value Range Interpretation Code Description Data Miroslava rce(s) Supporting Document(s) ID Date Data Source [id number] 09/19/2019 10:15:00 AM EDT [facility] [address] [place] [address] PHONE: [phone] FAX: [phone] Name .................. : LORETTATESS MEJIA Erika Acct Number.................. : [id number] ROOM. ................. : TR-05 MR Number ................... : [id number] Stay type ............. : E/R Discharge Date......... ... : 09/13/19 Admit Date ......... : 09/13/19 Admit Phys .................... : SD PADILLA Date of ....... : 1950 Family Phys ................... : NO PCP Phone .................. : [phone] Age ................................ : 69 Film# .................. .:[id number] Sex ................................. : M Unsigned transcriptions are preliminary reports and do not represent a medical or legal document CT LOWER EXT RT W/O CONT 36500 COMPLETE:09/13/19 19:12 JASS [id number] Reason(s): R hip injury / pain / trauma CT SCAN OF THE PROXIMAL RIGHT LOWER EXTREMITY WITHOUT CONTRAST: TECHNIQUE: CT scan of the proximal right lower extremity is obtained without the use of intravenous contrast. Computer reformatted sagittal and coronal images are generated. COMPARISON: None available. FINDINGS: There is a comminuted intertrochanteric fracture of the proximal right femur. There is no evidence of dislocation. The bones are demineralized. There is subcutaneous edema, likely representing a contusion in the lateral soft tissues of the hip. IMPRESSION: Comminuted intertrochanteric fracture. While performing the above CT examination, radiation dose reduction was accomplished utilizing automated exposure control, adjusting of the mA and kV based on the patient's body size and/or the use of imperative reconstructive techniques. CT dose: 455 mGycm Electronically Reviewed and Signed By Jean Carlos Méndez MD , 09/19/19 10:15, AML Transcribe Initials: Jennifer VELA scribe Date: 09/13/19 23:35, Dictation Date: Copy for: EMERGENCY DEPT via mode Copy for: 710 MED REC DISCHARGED Page 1 of 1 Name Value Range Interpretation Code Description Data Miroslava rce(s) Supporting Document(s) ID Date Data Source [id number] 09/19/2019 10:15:00 [place] [address] PHONE: [phone] FAX: [phone] Name .................. : LOUISE James Acct Number.................. : [id number] ROOM. ................. : TR-05 Number ................... : [id number] Stay type ............. : E/R Discharge Date......... ... : 09/13/19 Admit Date ......... : 09/13/19 Admit Phys .................... : SD PADILLA Date of ....... : 1950 Family Phys ................... : NO PCP Phone .................. : [phone] Age ................................ : 69 Film# .................. .:[id number] Sex ................................. : M Unsigned transcriptions are preliminary reports and do not represent a medical or legal document CT ABD & PELV W/[place] ORAL W/[place] [id number] COMPLETE:09/13/19 19:12 JASS [id number] Reason(s): Trauma/Injury CT SCAN OF THE ABDOMEN AND PELVIS WITHOUT CONTRAST: TECHNIQUE: CT scan of the abdomen and pelvis is performed without the use of intravenous or oral contrast which severely limits evaluation of trauma or injury. COMPARISON: None available. FINDINGS: Respiratory motion limits evaluation of fine detail. The lung bases are evaluated on the CT scan of the chest from the same date. The liver and spleen are not enlarged. There are no adrenal masses. Respiratory motion severely limits evaluation of small renal calculi. There is no obstructive uropathy demonstrated. The pancreas is not well evaluated without intravenous contrast. The gallbladder is not distended, limiting evaluation. There is no intra or retroperitoneal adenopathy by CT size criteria. There is aortoiliac calcification. There is an inferior vena cava filter in place. Evaluation of the pelvis does not demonstrate free fluid. Evaluation of the partially distended unopacified urinary bladder does not demonstrate a discrete bladder mass. The prostate is somewhat prominent and correlation with PSA is suggested. Evaluation of the unopacified bowel does not demonstrate CT evidence of obstruction or focal inflammatory bowel disease, given the limits of the current study, which again is quite limited by motion. Retained feces limits evaluation of the colon and retained debris/undigested food limits evaluation of the stomach. The appendix is not definitely visualized, but there is no CT evidence of inflammatory bowel disease in the right lower quadrant within the limits of the current study. Page 1 of [address] [place] [address] PHONE: [phone] FAX: [phone] Name .................. : LOUISE James Acct Number.................. : [id number] ROOM. ................. : TR-05 MR Number ................... : [id number] Stay type ............. : E/R Discharge Date......... ... : 09/13/19 Admit Date ......... : 09/13/19 Admit Phys .................... : SD PADILLA Date of ....... : 1950 Family Phys ................... : NO PCP Phone .................. : [phone] Age ................................ : 69 Film# .................. .:[id number] Sex ................................. : M Unsigned transcriptions are preliminary reports and do not represent a medical or legal document CT ABD & PELV W/[place] W/[place] [address] COMPLETE:09/13/19 19:12 JASS [id number] Reason(s): Trauma/Injury Evaluation of the visualized skeleton demonstrates what appears to be a comminuted intertrochanteric fracture of the right hip and correlation with x-ray is suggested. The bones are demineralized with degenerative changes. IMPRESSION: Study limited for evaluation of solid organ injury without intravenous contrast. Fracture of the proximal right femur. While performing the above CT examination, radiation dose reduction was accomplished utilizing automated exposure control, adjusting of the mA and kV based on the patient's body size and/or the use of imperative reconstructive techniques. CT dose: 1303 mGycm Electronically Reviewed and Signed By Jean Carlos Méndez MD , 09/19/19 10:15, AML Transcribe Initials: DANE , Transcribe Date: 09/13/19 23:27, Dictation Date: Copy for: EMERGENCY DEPT via modem Copy for: 710 MED REC DISCHARGED Page 2 of 2 Name Value Range Interpretation Code Description Data Miroslava rce(s) Supporting Document(s) ID Date Data Source [id number] 09/19/2019 10:14:00 [place] [address] PHONE: [phone] FAX: [phone] Name .................. : LOUISE MEJIA Erika Acct Number.................. : [id number] ROOM. ................. : TR-05 Number ................... : [id number] Stay type ............. : E/R Discharge Date......... ... : 09/13/19 Admit Date ......... : 09/13/19 Admit Phys .................... : SD PADILLA Date of ....... : 1950 Family Phys ................... : NO PCP Phone .................. : [phone] Age ................................ : 69 Film# .................. .:[id number] Sex ................................. : M Unsigned transcriptions are preliminary reports and do not represent a medical or legal document CT THORAX W/O CONTRAST 10004 COMPLETE:09/13/19 19:12 JASS [id number] Reason(s): Trauma/Injury CT SCAN OF THE CHEST WITHOUT CONTRAST: TECHNIQUE: CT scan of the chest is performed without the use of intravenous contrast at the request of the referring physician. This significantly limits evaluation of traumatic injury. Furthermore, there is severe respiratory motion and incomplete inspiration, further limiting evaluation. COMPARISON: 12/26/18 FINDINGS: Again seen is extensive bibasilar subsegmental atelectasis and/or pleuroparenchymal scarring, right greater than left. There is evidence of COPD/emphysema. Again, respiratory motion severely limits evaluation. No pleural effusions or pneumothorax are noted. There is no mediastinal or axillary adenopathy by CT size criteria. The right hemidiaphragm is again elevated. There is aortic and extensive coronary artery calcification. The patient is status post median sternotomy. The upper abdomen is evaluated on the CT scan of the abdomen from this same date. The heart appears enlarged, especially the left atrium. The bones are demineralized with degenerative changes. IMPRESSION: Very limited study due to motion as well as the lack of intravenous contrast. No pneumothorax or pleural effusion noted. While performing the above CT examination, radiation dose reduction was accomplished utilizing automated exposure control, adjusting of the mA and kV based on the patient's body size and/or the use of imperative reconstructive techniques. CT dose: 1309 mGycm Page 1 of 2 [place] [address] PHONE: [phone] FAX: [phone] Name .................. : LOUISE James Acct Number.................. : [id number] ROOM. ................. : TR05 MR Number ................... : [id number] Stay type ............. : E/R Discharge Date......... ... : 09/13/19 Admit Date ......... : 09/13/19 Admit Phys .................... : SD PADILLA Date of ....... : 1950 Family Phys ................... : NO PCP Phone .................. : [phone] Age ................................ : 69 Film# .................. .:[id number] Sex ................................. : M Unsigned transcriptions are preliminary reports and do not represent a medical or legal document CT THORAX W/O CONTRAST [id number] COMPLETE:09/13/19 19:12 JASS [id number] Reason(s): Trauma/Injury Electronically Reviewed and Signed By Jean Carlos jacobo MD , 09/19/19 10:14, AML Transcribe Initials: DANE , Transcribe Date: 09/13/19 23:24, Dictation Date: Copy for: EMERGENCY DEPT via modem Copy for: 710 MED REC DISCHARGED Page 2 of 2 Name Value Range Interpretation Code Description Data Miroslava rce(s) Supporting Document(s) ID Date Data Source [id number] 09/19/2019 09:13:00 AM EDT [facility] Name Value Range Interpretation Code Description Data Miroslava rce(s) Supporting Document(s) COMPREHENSIVE METABOLIC PANEL [facility] COMPREHENSIVE METABOLIC PANEL Sodium [Moles/volume] in Serum or Plasma 142 mEq/L 134 - 153 [facility] Potassium [Moles/volume] in Serum or Plasma 4.0 mEq/L 3.6 - 5.0 [facility] Chloride [Moles/volume] in Serum or Plasma 106 mEq/L 98 - 107 [facility] Carbon dioxide, total [Moles/volume] in Serum or Plasma 27 MEQ/L 22 - 30 [facility] Glucose [Mass/volume] in Serum or Plasma 103 MG/DL 65 - 110 [facility] BUN 13 MG/DL 7 - 21 [facility] al Creatinine [Mass/volume] in Serum or Plasma 0.9 MG/DL 0.7 - 1.5 [facility] BUN/CREAT 14 8 - 27 [facility] Protein [Mass/volume] in Serum or Plasma 5.6 G/DL 6.3 - 8.2 L [facility] Albumin [Mass/volume] in Serum or Plasma 3.2 G/DL 3.9 - 5.0 L [facility] Globulin [Mass/volume] in Serum by calculation 2.4 GM/DL 2.4 - 3.2 [facility] A/G RATIO 1.3 0.8 - 2.0 [facility] Calcium [Mass/volume] in Serum or Plasma 8.5 MG/DL 8.4 - 10.2 [facility] Bilirubin.total [Mass/volume] in Serum or Plasma 0.7 MG/DL 0.2 - 1.3 [facility] Alkaline phosphatase [Enzymatic activity/volume] in Serum or Plasma 50 U/L 38 - 126 [facility] Aspartate aminotransferase [Enzymatic activity/volume] in Serum or Plasma 15 U/L 5 - 40 [facility] Alanine aminotransferase [Enzymatic activity/volume] in Seru m or Plasma <5 U/L 7 - 56 L [facility] Anion gap 3 in Serum or Plasma 9.0 mmol/L 8.0 - 16.0 [facility] AGE 69 yrs [facility] Hospit al NON-AA GFR >60 mL/min [facility] Hosp ital AFR AMER GFR >60 mL/min [facility] Ho spital Male GFR In terprentation 20-49 yrs >60 mL/min Normal 50-59 yrs >56 mL/min Normal 60-69 yrs >49 mL/min Normal 70-79yrs >42 mL/min Normal 80 and above >35 mL/min Normal Female GFR Interpretation 20-39 yrs >60 mL/min Normal 40-49 yrs >58 mL/min Normal 50-59 yrs >51 mL/min Normal 60-69 yrs >45 mL/min Normal 70-79 yrs >39 mL/min Normal 80 and above >32 mL/min Normal ID Date Data Source [id number] 09/19/2019 08:54:00 AM EDT [facility] Name Value Range Interpretation Code Description Data Miroslava rce(s) Supporting Document(s) CBC NO DIFF [facility] ital COMPLETE BLOOD COUNT Leukocytes [#/volume] in Blood by Automated count 6.6 10^3/uL 4.2 - 1 1.0 [facility] Erythrocytes [#/volume] in Blood by Automated count 2.94 10^6/uL 4. 50 - 6.30 L [facility] Hemoglobin [Mass/volume] in Blood 9.1 g/dL 14.0 - 16.0 L [facility] Hematocrit [Volume Fraction] of Blood by Automated count 29.0 % 4 1.0 - 51.0 L [facility] Erythrocyte mean corpuscular volume [Entitic volume] by Auto mated count 98.6 fL 80.0 - 94.0 H [facility] Erythrocyte mean corpuscular hemoglobin [Entitic mass] by Automated count 31.0 pg 27.0 - 34.0 [facility] Erythrocyte mean corpuscular hemoglobin concentration [Mass/volume] by Automated count 31.4 g/dL 31.0 - 36.0 [facility] Erythrocyte distribution width [Ratio] by Automated count 14.9 % 11.5 - 14.8 H [facility] Platelets [#/volume] in Blood by Automated count 155 10^3/uL 150 - 45 0 [facility] Platelet mean volume [Entitic volume] in Blood by Automated count 11.5 fL 7.4 - 10.4 H [facility] ID Date Data Source [id number] 09/18/2019 12:38:50 PM EDT [facility] INFORMATIONPatient MRN Name Date of Age Gend*PT [id number] Roberto Rao 1950 69 years M IPPT Location Admission Date/Time Visit ID Attending [id number] 09/13/190 --- Roxy Adame MD([id number]) EPI ID CSN Admitting Provider [id number] Tayler Holland MD([id number]) [facility] DISCHARGE SUMMARYPatient Name: Roberto Rao of : 1950 Age 69 yearsPrimary Physician: No PCP PCP Phone: NoneAdmission Date: 09/13/2019 Discharge Date:He will be discharged from [facility] to [facility] Diagnoses:Principal Problem: Closed fracture of right hip with routine healingActive Problems: Stroke Permanent atrial fibrillation Essential hypertension Aphasia Other hy perlipidemia Gastroesophageal reflux disease without esophagitis Anxiety Polyneuropathy Simple partial seizure disorder Ischemic cardiomyopathy Hx of CABGResolved Problems: * No resolved hospital problems. *Discharge Medications:Current Discharge Medication ListSTART taking these medications Detailslidocaine (ASPERCREME) 4 % PTCH Place 2 patches on the skin dailyondansetron (ZOFRAN-ODT) 4 MG disintegrating tablet Take 1 tablet (4 mg total)by mouth every 6 (six) hours as needed for nauseaQty: 20 tablet, Refills: 0pantoprazole (PROTONIX) 40 MG tablet Take 1 tablet (40 mg total) by mouth daily CONTINUE these medications which have NOT CHANGED Detailsacetaminophen (TYLENOL) 325 MG tablet Take 325 mg by mouth every 4 (four) hoursas needed for painatorvastatin (LIPITOR) 40 MG tablet Take 40 mg by mouth dailybisacodyl (DULCOLAX) 10 MG suppository Insert 10 mg into the rectum daily asneeded (for constpation)busPIRone (BUSPAR) 5 MG tablet Take 5 mg by mouth 3 (three) times a daycitalopram (CELEXA) 20 MG tablet Take 20 mg by mouth dailydiltiazem (CARDIZEM) 30 MG tablet Take 30 mg by mouth 3 (three) times a dayDULoxetine (CYMBALTA) 30 MG capsule Take 30 mg by mouth 2 (two) times a dayfurosemide (LA SIX) 20 MG tablet Take 20 mg by mouth 2 (two) times a daygabapentin (NEURONTIN) 300 MG capsule Take 300 mg by mouth 3 (three) times a dayHYDROcodone- acetaminophen (NORCO) 5-325 MG per tablet Take 1 tablet by mouthevery 8 (eight) hours as needed for painlevETIRAcetam (KEPPRA) 750 MG tablet Take 750 mg by mouth 2 (two) times a daymagnesium hydroxide (MILK OF MAGNESIA) 400 MG/5ML suspension Take 30 mL by mouthdaily as needed for constipationMelatonin 3 MG TABS Take 3 mg by mouth nightly as needed (for sleep)mineral oil external liquid Apply 1 application topically daily as needed (fordry skin)omeprazole (PRILOSEC) 20 MG capsule Take 20 mg by mouth dailyoxyCODONE (ROXICODONE) 5 MG immediate release tablet Take 5 mg by mouth every 4(four) hours as needed for painpramipexole (MIRAPEX) 1 MG tablet Take 1 mg by mouth 2 (two) times a dayQUEtiapine (SEROQUEL) 25 MG tablet Take 25 mg by mouth nightlyrivaroxaban (XARELTO) 20 MG TABS Take 20 mg by mouth every evening!! senna (SENOKOT) 8.6 MG TABS Take 8.6 mg by mouth nightly!! senna (SENOKOT) 8.6 MG TABS Take 8.6 mg by mouth daily as needed (forconstipation)Sodium Phosphates (FLEET) 7-19 GM/118ML ENEM Insert 1 enema into the rectum onceas needed (for constipation) !! - Potential duplicate medications found. Please discuss with provider.Follow Up Instructions:The patient was given an after visit summary.Items needing special attention: Follow-up with orthopedics as outpatient.Brief Hospital Course:Patient is a 69-year-old male with a past medical history of CVA with righthemiparesis and aphasia, permanent atrial fibrillation on Xarelto, hypertension,hyperlipidemia presents [facility] after a hipfracture due to fall. Imaging showed fracture patient was sent to [facility]. Patient did have a lower extremity ultrasound which showed a DVT inthe femoral vein was on anticoagulation. Orthopedics was consulted and theyrecommended surgery which was completed. Patient did have bleeding but H&Hremained stable. At this point the patient is stable for discharge and willfollow up with orthopedics and PCP as outpatient. He will need short- termrehabilitation and is stable to discharge there.Discharge Exam:Blood Pressu re: BP: 93/59 Pulse: Heart Rate: 78Temperature: Temp: 97.9 F Respirations: Resp: 16Admission Weight: Weight: 96.2 kg (212 lb 1 oz) O2 Saturation: SpO2: 100 %Discharge Weight: Weight: 96.2 kg (212 lb 1 oz) BMI: There is no height orweight on file to calculate BMI.Physical Exam General well developed, well nourished, in no apparent distress HEENT PERRLA, EOMI, fundi benign Lungs clear to auscultation Heart regular rate and rhythm Abdomen soft, non-tender, non-distended, no organomegaly or masses Musculoskeletal Spine ROM normal. Muscular strength intact. Neuro normal without focal findings, mental status, speech normal, alert andoriented x3, MARSHALL, reflexes normal and symmetric and right arm and leg 0/5power. patient does have aphasia.Diagnostics:Imaging:XRAY FEMURReason for Exam: R IT fracture Technique: AP and lateral views obtained. Comparison: None Findings: There is a angulated and mildly impacted intertrochanteric fracture ofthe proximal right femur. The bones are osteopenic. The remainder of the femurappears intact. Fairly extensive vascular calcification is noted. Femoral headis anatomically aligned. IMPRESSIONIMPRESSION: Osteopenia. Intertrochanteric fracture right femur. Report electronically signed by: BHAVNA MULLEN On 09/14/2019 7:53 AMWorkstation ID: [id number] for Exam: SOB Technique: AP portable view obtained. Comparison: None Findings: Status post median sternotomy. There is elevation of righthemidiaphragm and atelectasis at the right lung base. Left lung is clear.Mediastinal contours appear unremarkable. IMPRESSIONIMPRESSION: Marked elevation of right hemidiaphragm with basilar atelectasis. Report electronically signed by: BHAVNA MULLEN On 09/14/2019 7:54 AMWorkstation ID: [id number] for Exam: R hip fracture Technique: Single AP view obtained. Comparison: None Findings: Bones are osteopenic. This is more so on the right than on the left. Intertrochanteric fracture of the right femur is noted with angulation.Remaining bones of the pelvis appear intact. IMPRESSIONIMPRESSION: Osteopenia, more prominently noted in the right hemipelvis and rightfemur compared with the left. Angulated intertrochanteric fracture right femur. Report electronically signed by: BHAVNA MULLEN On 09/14/2019 7:55 AMWorkstation ID: [id number] - [id number] for Exam: Fracture Technique: AP portable view obtained. Comparison: September 14, 2019 Findings: Again seen is elevation of right hemidiaphragm. There is been someinterval improvement in basilar atelectasis on the right when compared to theprior exam. Left lung is clear. Patient is status post median sternotomy. IMPRESSIONIMPRESSION: Elevated right hemidiaphragm with minimal subsegmental basilaratelectasis on the right overall slightly improved from study earlier today.Otherwise no acute disease. Report electronically signed by: BHAVNA MULLEN On 09/14/2019 1:39 PMWorkstation ID: [id number] - [id number] for Exam: hip fx Technique: Fluoroscopy with no digital spot images obtained.Fluoroscopy time: 125 SecondsNumber of Spot Images: Comparison: None Findings: Sequential images were obtained with the C-arm device during openreduction and internal fixation of the proximal right femur. Sequential imagesshow placement of a hip nail in satisfactory position. IMPRESSIONIMPRESSION: Open reduction and internal fixation of intertrochanteric fractureright femur. Report electronically signed by: BHAVNA MULLEN On 09/15/2019 10:53 AMWorkstation ID: [id number] - [id number] LEReason for Exam: swelling, erythema Technique: Duplex sonography was performed. Comparison: None Findings: Adequate compressibility and flow is identified within the commonfemoral vein. There is occlusive thrombus of the superficial femoral vein. Thepopliteal vein shows limited compression but flow is identified in this area. IMPRESSIONIMPRESSION: Acute lower extremity DVT involving superficial femoral vein.Possible chronic DVT of the popliteal vein. This study was communicated via the departmental critical results reportingprotocol . Report electronically signed by: BHAVNA MULLEN On 09/14/2019 8:54 AMWorkstation ID: [id number] - [id number] Procedures:ORIFConsultants:Orthopedics.Recent Labs:BMP:Lab ResultsComponent Value Date NA 141 09/18/2019 K 3.5 (L) 09/18/2019 CL 111 (H) 09/18/2019 CO2 23 09/18/2019 ANIONGAP 7 09/18/2019 CALCIUM 7.7 (L) 09/18/2019 GLU 113 (H) 09/18/2019 BUN 15 09/18/2019 CREATININE 0.94 09/18/2019 GFRAA >60 09/18/2019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 EXTREMITY VENOUS RIGHTExam Date: 09/14/2019 08:44MRN: [id number] Number: [id number] Class: InpatientAccount #: [id number] for Exam: swelling, erythemaTechnique: Duplex sonography was performed.Comparison: NoneFindings: Adequate compressibility and flow is identified within the common femoral vein. There is occlusive thrombus of the superficial femoral vein. The popliteal vein shows limited compression but flow is identified in this area.IMPRESSION: Acute lower extremity DVT involving superficial femoral vein. Possible chronic DVT of the popliteal vein.This study was communicated via the departmental critical results reporting protocol .Report electronically signed by: BHAVNA MULLEN On 09/14/2019 8:54 AMWorkstation ID: [id number] - [id number] Name Value Range Interpretation Code Description Data Miroslava rce(s) Supporting Document(s) ID Date Data Source [id number] 09/14/2019 07:55:27 AM EDT [address] [address]Brzffcz Name: ROBERTO RAOB: 1950Sex: MOrdering Provider: DEVEN Steelehoripurnima Prov: DEVEN MAGGIERefmichaeling Provider: Procedure Performed: XR PELVIS LIMITEDExam Date: 09/14/2019 01:45MRN: [id number] Number: [id number] Class: InpatientAccount #: [id number] for Exam: R hip fractureTechnique: Single AP view obtained.Comparison: NoneFindings: Bones are osteopenic. This is more so on the right than on the left. Intertrochanteric fracture of the right femur is noted with angulation. Remaining bones of the pelvis appear intact.IMPRESSION: Osteopenia, more prominently noted in the right hemipelvis and right femur compared with the left. Angulated intertrochanteric fracture right femur.Report electronically signed by: BHAVNA MULLEN On 09/14/2019 7:55 AMWorkstation ID: [id number] - [id number] Name Value Range Interpretation Code Description Data Miroslava rce(s) Supporting Document(s) ID Date Data Source [id number] 09/14/2019 07:54:28 AM EDT [place], [place] [address]Patient Name: ROBERTO James THAOB: 1950Sex: MOrdering Provider: DEVEN SAGKARLAuthorizing Prov: DEVEN SAGCANReferring Provider: Procedure Performed: XR CHEST PORTABLEExam Date: 09/14/2019 01:44MRN: [id number] Number: [id number] Class: InpatientAccount #: [id number] for Exam: SOBTechnique: AP portable view obtained.Comparison: NoneFindings: Status post median sternotomy. There is elevation of right hemidiaphragm and atelectasis at the right lung base. Left lung is clear. Mediastinal contours appear unremarkable.IMPRESSION: Marked elevation of right hemidiaphragm with basilar atelectasis.Report electronically signed by: BHAVNA MULLEN On 09/14/2019 7:54 AMWorkstation ID: [id number] - [id number] Name Value Range Interpretation Code Description Data Miroslava rce(s) Supporting Document(s) ID Date Data Source [id number] 09/14/2019 07:53:57 AM EDT [place], [place] [address]Patient Name: ROBERTO James THAOB: 1950Sex: MOrdering Provider: DEVEN SAGCANAuthorizing Prov: DEVEN SAGCANReferring Provider: Procedure Performed: XR FEMUR AP AND LATERAL RIGHTExam Date: 09/14/2019 01:42MRN: [id number] Number: [id number] Class: InpatientAccount #: [id number] for Exam: R IT fractureTechnique: AP and lateral views obtained.Comparison: NoneFindings: There is a angulated and mildly impacted intertrochanteric fracture of the proximal right femur. The bones are osteopenic. The remainder of the femur appears intact. Fairly extensive vascular calcification is noted. Femoral head is anatomically aligned.IMPRESSION: Osteopenia. 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+81s+PH22e+N5ns2qhvQMEbz/XpF9+vs13K/LwXbdHNP3 [file] Jsnj6Ou3g0dBPd7b7ekq6qY/8/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/Em8PE/1tQ/Crpjkc/MweCq3gRa8r+fIl7C1nsa7uJ7o/1gZ9cl [file] JboTKm6Vu5NbwaH3evIhZkR9JeC3CgXaGW2O ID Date Data Source [id number] 09/14/2019 01:57:03 PM EDT [facility] Name Value Range Interpretation Code Description Data Miroslava rce(s) Supporting Document(s) VITAMIN B12 @ 351 pg/mL (193-986) [facility] ID Date Data Source [id number] 09/14/2019 01:57:03 PM EDT [facility] Name Value Range Interpretation Code Description Data Miroslava rce(s) Supporting Document(s) IRON,TOTAL @ 38 ug/dL (35-150) [facility] [place] UIBC @ 211 ug/dL (130-375) [facility] TIBC @ 249 ug/dL (250-450) L [facility] % SATURATION 15 % (12-50) [facility] [place] ID Date Data Source [id number] 09/14/2019 01:57:03 PM EDT [facility] Name Value Range Interpretation Code Description Data Miroslava rce(s) Supporting Document(s) FERRITIN @ 237 ng/mL (26-388) [facility] ID Date Data Source [id number] 09/14/2019 03:28:34 AM EDT [facility] Name Value Range Interpretation Code Description Data Miroslava rce(s) Supporting Document(s) TROPONIN I <0.05 ng/mL (<0.05) [facility] [place] Less than 0.05: Myocardial injury unlike lyGreater than or equal to 0.05: Highly suggestive of myocardial injuryCorrelation with rise and/or fall ofserial troponins, clinical symptomsand ECG changes is necessary. ID Date Data Source [id number] 09/14/2019 03:28:34 AM EDT [facility] Name Value Range Interpretation Code Description Data Miroslava rce(s) Supporting Document(s) SODIUM 142 mmol/L (136-145) [facility] POTASSIUM 4.1 mmol/L (3.6-5.2) [facility] CHLORIDE 111 mmol/L (100-108) H [facility] CO2 24 mmol/L (22-31) [facility] ANION GAP 7 mmol/L (7-16) [facility] UREA NITROGEN 18 mg/dL (7-24) [facility] CREATININE 1.28 mg/dL (0.80-1.30) [facility] BUN/CREAT RATIO 14.1 RATIO (10.0-20.0) [facility] GLUCOSE 105 mg/dL (70-99) H [facility] CALCIUM 8.3 mg/dL (8.4-10.2) L [facility] GFR 56 ml/min/1.73m2 (>59) L [facility] GFR ( AMER) >60 ml/min/1.73m2 (>59) [facility] GFR INTERPRETATION [facility] --NORMAL KIDNEY FUNCTION OR MILD DISEASE - GFR >OR= 60CHRONIC KIDNEY DISEASE - GFR 15 - 59RENAL FAILURE - GFR <15 Est. GFR calculation based on the MDRDstudy equation, which assumes a steadystate for creatinine. Est. GFR should notbe used for medication dosing. ID Date Data Source [id number] 09/14/2019 03:11:33 AM EDT [facility] Name Value Range Interpretation Code Description Data Miroslava rce(s) Supporting Document(s) CALCIUM IONIZED 5.04 mg/dL (4.64-5.28) [facility] IONIZED CALCIUM NORMALIZED TO PH 7.40 AN D 37 DEGREES C. ID Date Data Source [id number] 09/14/2019 02:51:27 AM EDT [facility] Name Value Range Interpretation Code Description Data Miroslava rce(s) Supporting Document(s) WBC 5.6 10*3/uL (4.1-11.0) [facility] RBC 3.71 10*6/uL (4.60-6.10) L [facility] HGB 11.8 g/dL (13.5-18.0) L [facility] HCT 34.9 % (41.0-53.0) [facility] MCV 94.1 fL (80.0-95.0) [facility] MCH 31.9 pg (27.0-32.0) [facility] MCHC 33.9 g/dL (32.0-36.0) [facility] RDW 14.9 % (10.5-14.5) H [facility] PLT 161 10*3/uL (150-450) [facility] MPV 9.3 fL (7.1-10.7) [facility] ID Date Data Source [id number] 09/14/2019 03:07:38 AM EDT [facility] Name Value Range Interpretation Code Description Data Miroslava rce(s) Supporting Document(s) LACTIC ACID 1.7 mmol/L (0.4-2.0) [facility] ID Date Data Source [id number] 09/13/2019 11:52:33 PM EDT [facility] INFORMATIONPatient MRN Name Date of Age Gend*PT [id number] Roberto Rao 1950 69 years M IPPT Location Admission Date/Time Visit ID Attending [id number] 09/13/190 --- Guicho Ernst MD([id number]) EPI ID CSN Admitting Provider [id number] Tayler Holland MD([id number])Inpatient History & PhysicalThomas Erika RaoMRN: [id number] and Plan:Principal Problem: Closed fracture of right hip with routine healingActive Problems: Stroke Permanent atrial fibrillation Essential hypertension Aphasia Other hyperlipidemia Gastroesophageal reflux disease without esophagitis Anxiety Polyneuropathy1. Acute right hip fracture - transferred. Will need operative repair andorthopedic consult. Currently not medically cleared. Placed on fracture pathway.Hold Xare lto2. Hx of CVA - supportive care. Appears to be embolic in nature. Has aphasiaand right sided hemiparesis.3. Permanent Atrial fibrillation - continue cardizem. Placed on tele. Holdingxarelto for now4. Hyperlipidemia - on lipitor5. Simple partial seizure - on keppra. Seizure precautions6. Elevated lactic acid level - noted on labs at [facility]. Will repeat. Noevidence of infectious etiologyAdvance Directives DiscussionI had a face to face discussion today with Patient regarding advance directives.We were not able to have a discussion due to significant aphasia. Previous [facility] records state Full code Deven Gutierrez MD11:47 PMHistory of Present Illness: Cc: fracturePatient is 69 yo male with PMHx of CVA with right hemiparesis and aphasia,permanent afib on xarelto, HTN, Hyperlipidemia who presented to [facility] after suffering a hip fracture. Hx isunattainable from patient due to significant aphasia. Per records, was tryingto get outside of facility. Ended up falling and complaining of pain in hip andback. ER work-up revealed fractures. Patient per records also received haldolfor aggressive behaviors at facility.Past Medical History:Past Medical History:Diagnosis Date Anxiety Atrial fibrillation GERD (gastroesophageal reflux disease) Hemiparesis HTN (hypertension) Hyperlipidemia StrokePast Surgical History:No past surgical history on file.Medications:No medications prior to admission.Allergies:Depakote [divalproex sodium]; Paxil [paroxetine hcl]; Simvastatin; andWellbutrin [bupropion]Family History:unable to obtainSocial History: currently in facility, unknown if rehab vs [facility] staySocial HistorySocioeconomic History Marital status: Single Spouse name: Not on file Number of children: Not on file Years of education: Not on file Highest education level: Not on fileOccupational History Not on fileSocial Needs Financial resource strain: Not on file Food insecurity: Worry: Not on file Inability: Not on file Transportation needs: Medical: Not on file Non-medical: Not on fileTobacco Use Smoking status: Never Smoker Smokeless tobacco: Never UsedSubstance and Sexual Activity Alcohol use: Not Currently Comment: occasionally Drug use: Not on file Sexual activity: Not on fileLifestyle Physical activity: Days per week: Not on file Minutes per session: Not on file Stress: Not on fileRelationships Social connections: Talks on phone: Not on file Gets together: Not on file Attends congregational service: Not on file Active member of club or organization: Not on file Attends meetings of clubs or organizations: Not on file Relationship status: Not on file Intimate partner violence: Fear of current or ex partner: Not on file Emotionally abused: Not on file Physically abused: Not on file Forced sexual activity: Not on fileOther Topics Concern Not on fileSocial History Narrative Not on fileReview of SystemsNov[facility] to perform ROSPhysical ExamConstitutional:Laying flat in bedOlder than stated ageHas aphasia and noted right sided weaknessHENT:Head: Normocephalic and atraumatic.Eyes: Pupils are equal, round, and reactive to light. EOM are normal.Cardiovascular: An irregularly irregular rhythm present.Pulmonary/Chest: Effort normal and breath sounds normal. No respiratorydistress. He has no wheezes.Abdominal: Soft. Bowel sounds are normal. He exhibits no distension. There is notenderness.Musculoskeletal: He exhibits edema (right lower leg, dependent erythema, did notmove).Neurological: He is alert.Unable to tell due to significant aphasiaSkin: Skin is warm and dry. There is erythema.Psychiatric: His behavior is normal.Nursing note and vitals reviewed.Labs, Imaging and Other Diagnostic Tests:Diagnostic test reviewed for today's visit include: Labs and Old RecordsReviewed.Signature: Deven Gutierrez MDDate: September 13, 2019Time: 11:42 PM Name Value Range Interpretation Code Description Data Miroslava rce(s) Supporting Document(s) ID Date Data Source [id number] 09/14/2019 11:23:00 AM EDT Lab [facility] Name Value Range Interpretation Code Description Data Miroslava rce(s) Supporting Document(s) 25 HYDROXY VIT D @ 24 ng/mL (31-100) L Lab [facility] A REVIEW OF THE LITERATURE SUGGESTS THEF OLLOWING RANGES FOR THE CLASSIFICATIONOF 25-OH VITAMIN D STATUS: VITAMIN D STATUS 25-OH VITAMIN D DEFICIENCY <20 NG/MLINSUFFICIENCY 20-30 NG/MLSUFFICIENCY 31 - 100 NG/MLTOXICITY > 100 NG/ML A PEDIATRIC REFERENCE RANGE HAS NOT BEENESTABLISHED USING THIS METHOD. ID Date Data Source [id number] 09/14/2019 10:39:57 AM EDT [facility] Name Value Range Interpretation Code Description Data Miroslava rce(s) Supporting Document(s) FERRITIN @ 257 ng/mL (26-388) [facility] ID Date Data Source [id number] 09/14/2019 10:39:57 AM EDT [facility] Name Value Range Interpretation Code Description Data Miroslava rce(s) Supporting Document(s) CHOLESTEROL @ 124 mg/dL (0-200) Lab [facility] TRIGLYCERIDE @ 86 mg/dL (30-200) Lab [facility] HDL CHOLESTEROL @ 42 mg/dL (>40) Lab [facility] PER NCEP ATP III GUIDELINES:RESULTS LOWE R THAN 40 MG/DL ARE SUGGESTIVEOF INCREASED RISK FOR CORONARY ARTERYDISEASE. RESULTS > OR = TO 60 MG/DL ARECONSIDERED A NEGATIVE RISK FACTOR. CHOL/HDL RATIO 3.0 RATIO [facility] INTERPRETATION OF CHOL-HDL RATIO CHD RISK FEMALE MALEVERY HIGH >8.3 >14.3HIGH 5.6- 8.3 6.7- 14.3AVERAGE 3.7- 5.6 4.0- 6.7BELOW AVERAGE 2.5- 3.7 2.7- 4.0PROTECTED <2.5 <2.7 LDL CHOL (CALC) 65 mg/dL (<130) [facility] PER NCEP ATP III GUIDELINES: OPTIMAL < 100 NEAR OPTIMAL 100 - 129BORDERLINE HIGH 130 - 159 HIGH 160 - 189 VERY HIGH > 189 ID Date Data Source [id number] 09/14/2019 12:49:23 AM EDT Lab [facility] SPEC EXP DATE 09/16/2019PATI ENT ABO/Rh A POSITIVEANTIBODY SCREEN NEGATIVETESTING SITE PERFORMED AT [address] [place] [id number] Name Value Range Interpretation Code Description Data Miroslava rce(s) Supporting Document(s) TYPE AND SCREEN [facility] ID Date Data Source [id number] 09/13/2019 11:52:39 PM EDT Lab [facility] Name Value Range Interpretation Code Description Data Miroslava rce(s) Supporting Document(s) HEMOGLOBIN A1C @ 5.8 % (4.0-6.0) [facility] Performed using Siemens Gal[place] immunoassa y.Care must be taken when interpreting [id number] in patients with a hemoglobin variantor decreased erythrocyte lifespan. Values 5.7 - 6.4% suggest prediabetes.Values >=6.5% are diagnostic for diabetes.REFERENCE: DIABETES CARE 2018: 41([id number]).PERFORMED AT [address] [place] [address] EST AVERAGE GLUCOSE 120 mg/dL [facility] ID Date Data Source [id number] 09/13/2019 11:52:14 PM EDT Lab [facility] Name Value Range Interpretation Code Description Data Miroslava rce(s) Supporting Document(s) TROPONIN I <0.05 ng/mL (<0.05) [facility] GONZ[facility]LES Less than 0.05: Myocardial injury unlike lyGreater than or equal to 0.05: Highly suggestive of myocardial injuryCorrelation with rise and/or fall ofserial troponins, clinical symptomsand ECG changes is necessary. ID Date Data Source [id number] 09/13/2019 11:52:14 PM EDT [facility] Name Value Range Interpretation Code Description Data Miroslava rce(s) Supporting Document(s) FREE THYROXINE @ 1.40 ng/dL (0.76-1.46) [facility] PERFORMED AT [address] [place] [address] N [place] [address] ID Date Data Source [id number] 09/13/2019 11:52:14 PM EDT [facility] Name Value Range Interpretation Code Description Data Miroslava rce(s) Supporting Document(s) TSH,ULTRASENSITIVE @ 4.197 mIU/L (0.360-4.170) H [facility] PERFORMED AT [address] [place] [address] N [place] [address] ID Date Data Source [id number] 09/13/2019 11:52:14 PM EDT [facility] Name Value Range Interpretation Code Description Data Miroslava rce(s) Supporting Document(s) NT PRO BNP 885 pg/mL (0-125) H [facility] ID Date Data Source [id number] 09/13/2019 11:52:14 PM EDT [facility] Name Value Range Interpretation Code Description Data Miroslava rce(s) Supporting Document(s) TOTAL PROTEIN 7.0 g/dL (6.4-8.2) [facility] ALBUMIN 3.7 g/dL (3.2-4.5) [facility] GLOBULIN 3.3 g/dL (2.7-4.3) [facility] ALB/GLOB RATIO 1.1 RATIO [facility] BILIRUBIN,TOTAL 0.9 mg/dL (0.0-1.0) [facility] PLEASE NOTE:Total bilirubin results may be falselyelevated in patients taking Eltrombopag. BILIRUBIN,CONJUGATED 0.3 mg/dL (0.0-0.3) [facility] BILIRUBIN,UNCONJ. 0.6 mg/dL (0.0-0.7) [facility] ALKALINE PHOSPHATASE 75 U/L (45-117) [facility] AST (SGOT) 14 U/L (11-39) [facility] ALT (SGPT) 15 U/L (12-78) [facility] ID Date Data Source [id number] 09/13/2019 11:44:34 PM EDT [facility] Name Value Range Interpretation Code Description Data Miroslava rce(s) Supporting Document(s) MAGNESIUM 1.7 mg/dL (1.7-2.4) [facility] ID Date Data Source [id number] 09/13/2019 11:44:34 PM EDT [facility] Name Value Range Interpretation Code Description Data Miroslava rce(s) Supporting Document(s) SODIUM 141 mmol/L (136-145) [facility] POTASSIUM 4.1 mmol/L (3.6-5.2) [facility] CHLORIDE 109 mmol/L (100-108) H [facility] CO2 25 mmol/L (22-31) [facility] ANION GAP 7 mmol/L (7-16) [facility] UREA NITROGEN 17 mg/dL (7-24) [facility] CREATININE 1.23 mg/dL (0.80-1.30) [facility] BUN/CREAT RATIO 13.8 RATIO (10.0-20.0) [facility] GLUCOSE 107 mg/dL (70-99) H [facility] CALCIUM 8.3 mg/dL (8.4-10.2) L [facility] GFR 58 ml/min/1.73m2 (>59) L [facility] GFR ( AMER) >60 ml/min/1.73m2 (>59) [facility] GFR INTERPRETATION [facility] --NORMAL KIDNEY FUNCTION OR MILD DISEASE - GFR >OR= 60CHRONIC KIDNEY DISEASE - GFR 15 - 59RENAL FAILURE - GFR <15 Est. GFR calculation based on the MDRDstudy equation, which assumes a steadystate for creatinine. Est. GFR should notbe used for medication dosing. ID Date Data Source [id number] 09/13/2019 11:37:58 PM EDT [facility] Name Value Range Interpretation Code Description Data Miroslava rce(s) Supporting Document(s) APTT 38.1 s (22.0-34.3) H [facility] ID Date Data Source [id number] 09/13/2019 11:37:58 PM EDT [facility] Name Value Range Interpretation Code Description Data Miroslava rce(s) Supporting Document(s) PT 16.2 s (9.2-11.9) H [facility] INR 1.58 [facility] SUGGESTED THERAPEUTIC RANGES USING INR F ORSTABILIZED ANTICOAGULATED PATIENTS:STANDARD DOSE THERAPY INR 2.0-3.0 DVT, PE, PREVENT DVT OR EMBOLISMHIGH DOSE THERAPY INR 2.5-3.5 PREVENT EMBOLISM FROM MECHANICAL HEART VALVE ID Date Data Source [id number] 09/13/2019 11:18:31 PM EDT [facility] Name Value Range Interpretation Code Description Data Miroslava rce(s) Supporting Document(s) WBC 6.5 10*3/uL (4.1-11.0) [facility] RBC 3.94 10*6/uL (4.60-6.10) L [facility] HGB 12.3 g/dL (13.5-18.0) L [facility] HCT 37.3 % (41.0-53.0) L [facility] MCV 94.7 fL (80.0-95.0) [facility] MCH 31.4 pg (27.0-32.0) [facility] MCHC 33.1 g/dL (32.0-36.0) [facility] RDW 14.8 % (10.5-14.5) H [facility] PLT 167 10*3/uL (150-450) [facility] MPV 9.2 fL (7.1-10.7) [facility] NEUT % 77.4 % (35.0-75.0) H [facility] LYMPH % 11.5 % (16.0-52.0) L [facility] MONO % 9.9 % (0.0-8.0) H [facility] EOS % 0.7 % (0.0-5.0) [facility] BASO % 0.5 % (0.0-4.0) [facility] NEUT # 5.0 10*3/uL (1.8-7.7) [facility] LYMPH # 0.7 10*3/uL (1.2-4.8) L [facility] MONO # 0.6 10*3/uL (0.0-0.8) [facility] Eosinophils [#/volume] in Blood by Automated count 0.0 10*3/uL (0.0-0 .5) [facility] BASO # 0.0 10*3/uL (0.0-0.2) [facility] ID Date Data Source [id number] 09/13/2019 06:29:00 PM EDT [facility] Name Value Range Interpretation Code Description Data Miroslava rce(s) Supporting Document(s) [facility] Yellow NORMAL: Yellow [facility] CLARITY Clear NORMAL: Clear [facility] Specific gravity of Urine by Test strip 1.020 1.001 - 1.030 [facility] pH 5 5 - 9 [facility] Glucose [Mass/volume] in Urine by Test strip NORM NORMAL: Negat [facility] Bilirubin.total [Presence] in Urine by Test strip NEG NORMAL: Negative [facility] Ketones [Presence] in Urine by Test strip NEG NORMAL: Negative [facility] Protein [Mass/volume] in Urine by Test strip NEG NORMAL: Negat [facility] Nitrite [Presence] in Urine by Test strip NEG NORMAL: Negative [facility] BLOOD 25 NORMAL: Negative A [facility] Leukocyte esterase [Presence] in Urine by Test strip NEG ALEX L: Negative [facility] Urobilinogen [Mass/volume] in Urine by Test strip NOR less hugo n 1.0 mg/dL [facility] MICROSCOPIC See Below [facility] ital Erythrocytes [#/volume] in Urine by Test strip 1 - 3 NORMAL: NON E SEEN [facility] EPITHELIAL FEW NORMAL: NONE SEEN [facility] Amorphous sediment [Presence] in Urine sediment by Light rajendra roscopy RARE NORMAL: NONE SEEN [facility] ID Date Data Source [id number] 09/13/2019 07:33:[address] [facility] Value Range Interpretation Code Description Data Miroslava rce(s) Supporting Document(s) aPTT in Blood by Coagulation assay 37.7 SECONDS 24.8 - 36.7 H [facility] ID Date Data Source [id number] 09/13/2019 07:33:00 PM EDT [facility] Name Value Range Interpretation Code Description Data Miroslava rce(s) Supporting Document(s) Prothrombin time (PT) 18.3 SECONDS 11.0 - 15.[address] [facility] INR in Platelet poor plasma by Coagulation assay 1.50 0.93 - 1. 23 H [facility] \\BLDo\\INR INTERPRETATION\\BLDx\\ Therapeutic range for Coumadin and related oral 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s. - International Normalized Ratio (INR): 2.0 - 3.0 for Venous Thrombosis, Pulmonary Embolus, Tissue heart valves, Acute ND, Atrial Fibrillation, Valvular heart disease and recurrent Systemic Embolism. -International Normalized Ratio (INR): 2.5 - 3.5 for Mechanical Prosthetic valve. ID Date Data Source [id number] 09/13/2019 05:46:00 PM EDT [facility] Name Value Range Interpretation Code Description Data Miroslava rce(s) Supporting Document(s) TROPONIN T 0.01 NG/ML 0.00 - 0.10 [facility] spital TROPONIN T0.1 ng/ml Recommended as the c linical threshold value forTroponin T. ID Date Data Source [id number] 09/13/2019 05:34:[address] [facility] Value Range Interpretation Code Description Data Miroslava rce(s) Supporting Document(s) Fibrin D-dimer FEU [Mass/volume] in Platelet poor plasma 19. 52 ug/mL 0.27 - 0.50 H [facility] ID Date Data Source [id number] 09/13/2019 05:34:[address] [facility] Value Range Interpretation Code Description Data Miroslava rce(s) Supporting Document(s) Creatine kinase [Enzymatic activity/volume] in Serum or Plasma 5 8 U/L 30 - 170 [facility] ID Date Data Source [id number] 09/13/2019 05:34:00 PM EDT [facility] Name Value Range Interpretation Code Description Data Miroslava rce(s) Supporting Document(s) COMPREHENSIVE METABOLIC PANEL [facility] COMPREHENSIVE METABOLIC PANEL Sodium [Moles/volume] in Serum or Plasma 143 mEq/L 134 - 153 [facility] Potassium [Moles/volume] in Serum or Plasma 4.2 mEq/L 3.6 - 5.0 [facility] Chloride [Moles/volume] in Serum or Plasma 104 mEq/L 98 - 107 [facility] Carbon dioxide, total [Moles/volume] in Serum or Plasma 26 MEQ/L 22 - 30 [facility] Glucose [Mass/volume] in Serum or Plasma 97 MG/DL 65 - 110 [facility] BUN 18 MG/DL 7 - 21 [facility] Creatinine [Mass/volume] in Serum or Plasma 1.3 MG/DL 0.7 - 1.5 [facility] BUN/CREAT 14 8 - 27 [facility] Protein [Mass/volume] in Serum or Plasma 7.2 G/DL 6.3 - 8.2 [facility] Albumin [Mass/volume] in Serum or Plasma 4.3 G/DL 3.9 - 5.0 [facility] Globulin [Mass/volume] in Serum by calculation 2.9 GM/DL 2.4 - 3.2 [facility] A/G RATIO 1.5 0.8 - 2.0 [facility] Calcium [Mass/volume] in Serum or Plasma 9.3 MG/DL 8.4 - 10.2 [facility] Bilirubin.total [Mass/volume] in Serum or Plasma <0.7 MG/DL 0.2 - 1.3 [facility] Alkaline phosphatase [Enzymatic activity/volume] in Serum or Plasma 73 U/L 38 - 126 [facility] Aspartate aminotransferase [Enzymatic activity/volume] in Serum or Plasma 17 U/L 5 - 40 [facility] Alanine aminotransferase [Enzymatic activity/volume] in Seru m or Plasma 9 U/L 7 - 56 [facility] Anion gap 3 in Serum or Plasma 13.0 mmol/L 8.0 - 16.0 [facility]GE 69 [facility] 58 mL/min [facility] AFR AMER GFR >60 mL/min [facility] sp[facility] Male GFR In terprentation 20-49 yrs >60 mL/min Normal 50-59 yrs >56 mL/min Normal 60-69 yrs >49 mL/min Normal 70-79yrs >42 mL/min Normal 80 and above >35 mL/min Normal Female GFR Interpretation 20-39 yrs >60 mL/min Normal 40-49 yrs >58 mL/min Normal 50-59 yrs >51 mL/min Normal 60-69 yrs >45 mL/min Normal 70-79 yrs >39 mL/min Normal 80 and above >32 mL/min Normal ID Date Data Source [id number] 09/13/2019 05:34:00 PM EDT [facility] Name Value Range Interpretation Code Description Data Miroslava rce(s) Supporting Document(s) Lipase [Enzymatic activity/volume] in Serum or Plasma 35 U/L 13 - 60 [facility] ID Date Data Source [id number] 09/13/2019 05:34:00 PM EDT [facility] Name Value Range Interpretation Code Description Data Miroslava rce(s) Supporting Document(s) BNP 688 PG/ML 0 - 125 H [facility] ID Date Data Source [id number] 09/13/2019 05:14:00 PM EDT [facility] Name Value Range Interpretation Code Description Data Miroslava rce(s) Supporting Document(s) CBC W/AUTOMATED DIFF [facility] COMPLETE BLOOD COUNT Leukocytes [#/volume] in Blood by Automated count 5.8 10^3/uL 4.2 - 1 1.0 [facility] Erythrocytes [#/volume] in Blood by Automated count 3.99 10^6/uL 4. 50 - 6.30 L [facility] Hemoglobin [Mass/volume] in Blood 12.4 g/dL 14.0 - 16.0 L [facility] Hematocrit [Volume Fraction] of Blood by Automated count 38.2 % 4 1.0 - 51.0 L [facility] Erythrocyte mean corpuscular volume [Entitic volume] by Auto mated count 95.7 fL 80.0 - 94.0 H [facility] Erythrocyte mean corpuscular hemoglobin [Entitic mass] by Automated count 31.1 pg 27.0 - 34.0 [facility] Erythrocyte mean corpuscular hemoglobin concentration [Mass/volume] by Automated count 32.5 g/dL 31.0 - 36.0 [facility] Erythrocyte distribution width [Ratio] by Automated count 13.7 % 11.5 - 14.8 [facility] Platelets [#/volume] in Blood by Automated count 177 10^3/uL 150 - 45 0 [facility] Platelet mean volume [Entitic volume] in Blood by Automated count 10.4 fL 7.4 - 10.4 [facility] Neutrophils/100 leukocytes in Blood by Automated count 71.5 % 37. 0 - 80.0 [facility] Lymphocytes/100 leukocytes in Blood by Manual count 16.6 % 25.0 - 40.0 L [facility] Monocytes/100 leukocytes in Blood by Automated count 8.2 % 3.0 - 8.0 H [facility] Eosinophils/100 leukocytes in Blood by Automated count 2.9 % 0.0 - 7.0 [facility] Basophils/100 leukocytes in Blood by Automated count 0.5 % 0.0 - 2.0 [facility] %IG 0.3 % 0.0 - 0.0 [facility] %NRBC 0.0 % 0.0 - 0.0 [facility] al Neutrophils [#/volume] in Blood by Automated count 4.17 10^3/uL 2.00 - 6.90 [facility] Lymphocytes [#/volume] in Blood by Automated count 0.97 10^3/uL 0.60 - 3.40 [facility] Monocytes [#/volume] in Blood by Automated count 0.48 10^3/uL 0.00 - 0.90 [facility] Eosinophils [#/volume] in Blood by Automated count 0.17 10^3/uL 0.00 - 0.70 [facility] Basophils [#/volume] in Blood by Automated count 0.03 10^3/uL 0.00 - 0.20 [facility] #IG 0.02 10^3/uL 0.00 - 0.10 [facility] ospital #NRBC 0.00 10^3/uL 0.00 - 0.00 [facility] MANUAL DIFF NOT INDICATED [facility] RBC MORPH NOT INDICATED [facility] sp[facility] ID Date Data Source [id number] 09/13/2019 05:14:00 PM EDT [facility] Name Value Range Interpretation Code Description Data Miroslava rce(s) Supporting Document(s) Lactate [Moles/volume] in Serum or Plasma 3.1 MMOL/L 0.2 - 2.2 H [facility] ID Date Data Source [id number] 08/16/2019 10:21:23 AM EDT [facility] Name Value Range Interpretation Code Description Data Miroslava rce(s) Supporting Document(s) Discharge Summary [facility] [id number]/YLXzkJPCll4MiFRriRIw3ZJffHHQpU1ZnROT1yP3wOEO1JObKDuCwXvIcPqVg lbm [file] ICAgICAgICAgICAgICAgICAgICAgICAgICAgICAgIC AgICAgICAgICAgICAgICAgICAgICAgICANCiAgICAgICAgICAgICAgICAgICAgICAgICAgICAgICAgIC AgICAgICAgICAgICAgICAgICAgICAgICAgICAgICAgICAgICAgICAgICAgICAgICAgICAgICAgICAgIC AgICAgICANCiAgICAgICAgICAgICAgICAgICAgICAg ICAgICAgICAgICAgICAgICAgICAgICAgICAgICAgICAgICAgICAgICAgICAgICAgICAgICAgICAgICAg ICAgICAgICAgICAgICAgICANCiAgICAgICAgICAgICAgICAgICAgICAgICAgICAgICAgICAgICAgICAg ICAgICAgICAgICAgICAgICAgICAgICAgICAgICAgIC AgICAgICAgICAgICAgICAgICAgICAgICAgICANCiAgICAgICAgICAgICAgICAgICAgICAgICAgICAgIC AgICAgICAgICAgICAgICAgICAgICAgICAgICAgICAgICAgICAgICAgICAgICAgICAgICAgICAgICAgIC AgICAgICAgICANCiAgICAgICAgICAgICAgICAgICAg ICAgICAgICAgICAgICAgICAgICAgICAgICAgICAgICAgICAgICAgICAgICAgICAgICAgICAgICAgICAg ICAgICAgICAgICAgICAgICAgICANCiAgICAgICAgICAgICAgICAgICAgICAgICAgICAgICAgICAgICAg ICAgICAgICAgICAgICAgICAgICAgICAgICAgICAgIC AgICAgICAgICAgICAgICAgICAgICAgICAgICAgICANCiAgICAgICAgICAgICAgICAgICAgICAgICAgIC AgICAgICAgICAgICAgICAgICAgICAgICAgICAgICAgICAgICAgICAgICAgICAgICAgICAgICAgICAgIC AgICAgICAgICAgICANCiAgICAgICAgICAgICAgICAg ICAgICAgICAgICAgICAgICAgICAgICAgICAgICAgICAgICAgICAgICAgICAgICAgICAgICAgICAgICAg ICAgICAgICAgICAgICAgICAgICAgICANCiAgICAgICAgICAgICAgICAgICAgICAgICAgICAgICAgICAg ICAgICAgICAgICAgICAgICAgICAgICAgICAgICAgIC AgICAgICAgICAgICAgICAgICAgICAgICAgICAgICAgICANCjw/uRWxU8qltHIgiqI7C8ojKj9ANb1XQM 0qj7DqFYQeEYyaswMeCvbGEcIcICMkLjsYWom4RFavII7VdSTuP6WwQ0XeBEisSK6CHGQjTMAyfWCxLE QnCOStEmD3XBIzCCibYW6JfZItMPpmQUBhRJPiJdGc EEIoWAAkMFHfNENfVHSFNCWhZRSuZkUnZVSaGKJbGI8DKFNqK640nxWtBp4DTf1URpVhKS0nti2HZhAg PBHqXnqIVdf1LGozPT2FyXJhmRNlXlIwAOHIIaTyT5wsa2NoIeLeEDJWVPqiXY7Yr1LolJAeJIa+Pg0K BT5tt6ImRMejVtYiHV2bmf8YJOyAGaPdK2ZcjEhiCF Wcq0LqTTQtULILjI2cAAL7YQD1HBXiHlYfLQyaDMLSV9t8ICFSSQPegIIvEtB6HkXpDvInDZI6UIZwQN 7nOMzoAH3LPZB0LMvqMQGpZZUeV6zHVeSzCLLiUdKjnTwgYP2JUmRiJ3YfbvSsdNBaJaGcLNWZXd7+DQ ekukIfMlrXUpC6UTJai1XyKHm9AU8KNSAcBYgrZH4A ZEXnmX4eNXigUM0JIhNtCLLrCCJMUaOoX20gfRFdIZn2K0OkAxRlNQBfObafVEYsODvzJfBhBYEvBoLd DQogID4+ID4+EHfpVA4DSMwpebYpVVWbDu7HVQVzFWVuCN8nNVXyNGHcM4Y6zWmeSXFRMmZdI4tuipki ZI0qEWJaK886xAmzspLiRJMhNKCiZp2ORFMoNHG3TL ZokOOxTqHlSAPNDMaoIZ9XkBVeVJP3zX7xVDbuPZFhTDJbA1aOEqSdeOtdME96nThjlfBscHSgBVo+Pg 8CAR0eb7ZzLBj5srHxOZagEKL8PFqeAAYvYHNiTEMpPOD0JIW2XGJNPfYrHOZbJXUqILypJEQdXFBncc 8BMYHiGAJyJiL7EFAtMQZlEMBzEAtcAMUnJXA0JQU7 FGMlGWQhZC4VQjIkNDYcBCLjMSdcKPNtTUArnd2XMTCgVAQiRnK7JrMgBFIoWQNbSBwmRBXoUWRhTnru YZMjLHLwMP7QTkNqUOLdDTX7GVNrPBFgWAXrij5QJGKbLRCcPae2JOFbRWDcAWDlNCncYDQoYPNjRKL4 MBNhIBYmPS0JIpSpEVAmFUQtWBJsBDMlGBJxku5CIG XpWYRkAztbNAPdKCHzJVAvLUumYSAtVQU4CLLiSTEsHBPrEE0IIcGbPQXqSCL0BrqfLGSzUYStuo2QDH KaEOFpIwO1LXZcXYSeGQVmXGjyXFKuGVM0UrCwZXEbLYRrXN5TIrFxOBKeJCr2BIWgMAClVJKbic6LYQ TsMKLfBKJfGbPoTOOsXULqQVpbXAQfLBA8IqIqOVKp NGNtIN1QPrIoTLBdYIi3GKSmTSDnGBEyul0BQAIzQGIrYZw5MNSjYNSpPJLuUCydLRHgYMY8PQE3PJFq ZQMsNG6HGiSrNDOuSmFmOAGgMIMyLHWmpv3QKOFpETOvLFNwELCcCABrQQFcDCyzLUIiRRKnEuZzZNYz RIHmDZ8AHvUbMJTvMfJ2VSCnCPEdWLCqom3XZHCtMD OsMuH6TUIjNEJpJMHyDOowIWAzFDO1TwS7QCNbRRIuWH5TSaFuVCWfNbG8TaYkZNLfZYKvmb0ONDPqVV VlOaXuZCIcIQIhAPAeHXsmYZWkJUI6GoR6UTTmFSFtXB5JXrAmJENlQsx4UtMwNRYlXAUjdq9WCIUuFF IiQUJ2VXYhIUIuVPMpDFpzVVWrETL8IgT7AUGsSTDp CP4VRkYjDGEnTtkmUaecUUDgKBFjjl0FlRVjvMdorx4GIUeAZq1GyPckVTI6QIumLc5bjDZfDWVcXUBR Kn4YgaPvQGXkJYCJNQnoRLZdNFT0YBO9VGIsNIfrSWCzYUVsQLCcDfM9ORJ4LhK9ZQVtHoV9Uvc1FlFt EJXyMSObKwLwTME5IiB0NOg1BIewHHyoPCE+IF0g DQo+Zf6Hx3QwjpE6bbBhPFctYPFzHb0CQAFIG3YFYq== ID Date Data Source [id number] 08/14/2019 03:15:03 PM EDT [facility] Name Value Range Interpretation Code Description Data Miroslava rce(s) Supporting Document(s) Consultation [facility] KKPLTj5iToTIFmNn23/KCLhdOGQsh7KlSAdcFDe5PQgkERFmW0TmNKG5wI2iEFL4YUqIOtZwDhTaUwF3 lbm [file] yEfj0+tj1HA9ZWXqUVhsbRrOWeZv4bwmPpLs3U+ [file] AiF5KoP0JgGdDNR8KjS+US9iOOq+Tc2Rr1AzkdT5otPuFLl9BOU6Tq7EEUMHU0ONZq== ID Date Data Source [id number] 08/14/2019 03:22:10 AM EDT [facility] Name Value Range Interpretation Code Description Data Miroslava rce(s) Supporting Document(s) Leukocytes [#/volume] in Blood by Automated count 5.1 10*3/uL 4-10 [facility] Erythrocytes [#/volume] in Blood by Automated count 3.88 10*6/uL 4.6- 6.1 L [facility] Hemoglobin [Mass/volume] in Blood 12.5 g/dL 13.5-18 L [facility] Hematocrit [Volume Fraction] of Blood by Automated count 37.0 % 4 1-53 L [facility] Erythrocyte mean corpuscular volume [Entitic volume] by Auto mated count 95.4 fL 80-96 [facility] Erythrocyte mean corpuscular hemoglobin [Entitic mass] by Automated count 32.2 pg 27-33 [facility] Erythrocyte mean corpuscular hemoglobin concentration [Mass/volume] by Automated count 33.7 g/dL 32.0-36.0 [facility] distribution width [Ratio] by Automated count 14.3 % 11.5-14.5 [facility] Platelets [#/volume] in Blood by Automated count 195 10*3/uL 150-400 [facility] Differential cell count method - Blood [facility] Neutrophils/100 leukocytes in Blood by Automated count 60 % [facility] Lymphocytes/100 leukocytes in Blood by Automated count 25 % [facility] Monocytes/100 leukocytes in Blood by Automated count 9 % [facility] Eosinophils/100 leukocytes in Blood by Automated count 5 % [facility] Basophils/100 leukocytes in Blood by Automated count 1 % [facility] Neutrophils [#/volume] in Blood by Automated count 3.03 10*3/uL 1.8-7 .0 [facility] Lymphocytes [#/volume] in Blood by Automated count 1.27 10*3/uL 1.2-4 .0 [facility] Monocytes [#/volume] in Blood by Automated count 0.46 10*3/uL 0-0.8 [facility] Eosinophils [#/volume] in Blood by Automated count 0.23 10*3/uL 0-0.5 [facility] Basophils [#/volume] in Blood by Automated count 0.07 10*3/uL 0-0.2 [facility] Nucleated erythrocytes/100 leukocytes [Ratio] in Blood by Automated count 0 /100{WBCs} 0-0 [facility] ID Date Data Source [id number] 08/14/2019 03:39:49 AM EDT [facility] Name Value Range Interpretation Code Description Data Miroslava rce(s) Supporting Document(s) Bicarbonate [Moles/volume] in Serum 22 mmol/L 22-29 [facility] Chloride [Moles/volume] in Serum or Plasma 104 mmol/L 98-107 [facility] Creatinine [Mass/volume] in Serum or Plasma 1.34 mg/dL 0.70-1.20 H [facility] Glucose [Mass/volume] in Serum or Plasma 103 mg/dL 70-140 [facility] Potassium [Moles/volume] in Serum or Plasma 3.6 mmol/L 3.4-5.1 [facility] Sodium [Moles/volume] in Serum or Plasma 139 mmol/L 136-145 [facility] Urea nitrogen [Mass/volume] in Serum or Plasma 16 mg/dL 8-23 [facility] Anion gap 3 in Serum or Plasma 13 mmol/L 01-10 [facility] Osmolality of Serum or Plasma by calculation 289 mosm/kg 275-300 [facility] Creatinine/Urea nitrogen [Mass Ratio] in Serum or Plasma 12 [facility] Calcium [Mass/volume] in Serum or Plasma 9.0 mg/dL 8.8-10.2 [facility] Glomerular filtration rate/1.73 sq M pre dicted among non-blacks [Volume Rate/Area] in Serum or Plasma by Creatinine-based formula (MDRD) 52 mL/min/1.73m2 >60 L [facility] Glomerular filtration rate/1.73 sq M pre dicted among blacks [Volume Rate/Area] in Serum or Plasma by Creatinine-based formula (MDRD) 61 mL/min/1.73m2 >60 [facility] ID Date Data Source [id number] 08/13/2019 04:18:23 AM EDT [facility] Name Value Range Interpretation Code Description Data Miroslava rce(s) Supporting Document(s) Bicarbonate [Moles/volume] in Serum 22 mmol/L 22-29 [facility] Chloride [Moles/volume] in Serum or Plasma 102 mmol/L 98-107 [facility] Creatinine [Mass/volume] in Serum or Plasma 1.40 mg/dL 0.70-1.20 H [facility] Glucose [Mass/volume] in Serum or Plasma 106 mg/dL 70-140 [facility] Potassium [Moles/volume] in Serum or Plasma 3.7 mmol/L 3.4-5.1 [facility] Sodium [Moles/volume] in Serum or Plasma 137 mmol/L 136-145 [facility] Urea nitrogen [Mass/volume] in Serum or Plasma 16 mg/dL 01-18 [facility] Anion gap 3 in Serum or Plasma 13 mmol/L 01-10 [facility] Osmolality of Serum or Plasma by calculation 286 mosm/kg 275-300 [facility] Creatinine/Urea nitrogen [Mass Ratio] in Serum or Plasma 11 [facility] Calcium [Mass/volume] in Serum or Plasma 8.4 mg/dL 8.8-10.2 L [facility] Glomerular filtration rate/1.73 sq M pre dicted among non-blacks [Volume Rate/Area] in Serum or Plasma by Creatinine-based formula (MDRD) 50 mL/min/1.73m2 >60 L [facility] Glomerular filtration rate/1.73 sq M pre dicted among blacks [Volume Rate/Area] in Serum or Plasma by Creatinine-based formula (MDRD) 58 mL/min/1.73m2 >60 L [facility] ID Date Data Source [id number] 08/08/2019 07:38:00 AM EDT [facility] 1 OrderSheet [facility] Emergency Department [address] [place] [address] Phone #: [phone]- [phone] 08/08/2019 07:38 Patient: ROBERTO RAO Sex: M : 1950 Age: 69yWEIGHT:108.4 kg HEIGHT:66 inches (S) BMI:38.6ALLERGIES: Dival proex Sodium, Paxil, Simvastatin, WellbutrinCHIEF COMPLAINT: trouble walking, pain, swelling, weakness, pain, swellingDIAGNOSIS: Peripheral venous insufficiency, Cellulitis of skin, O/E - edema of feetLAB ORDERSOrder Description Priority Entered Acknowledged InitialedPT/INR STAT 12:54 08/08/2019 13:19 Alex Dey R.N. Physician;PTT STAT 12:54 08/08/2019 13:19 Alex Dey R.N. Physician;DIAGNOSTIC STUDY ORDERSOrder Description Priority Entered Acknowledged InitialedMEDICATION/IV/DRIP/FLUID ORDERSOrder Description Priority Entered Acknowledged InitialedClindamycin IVPB 10:56 08/08/2019 11:07 Tiburcio600 mg (NOW) Alex Patel R.N. Physician;Zosyn- IVPB 3.375 10:56 08/08/2019 11:44 chantel Dey (in 50 mL D5W, Alex Patel R.N.X1, NOW) Physician;Percocet PO 1 tab 12:07 08/08/2019 12:18 Tiburcio(HIGH ALERT Alex Patel R.N.MEDICATION) Physician; Reason for ordering with alerts: Benefits outweigh risks -- 12:07 08/08/2019 Alex Vogt PhysicianGENERAL ORDERSOrder Description Priority Entered Acknowledged InitialedEKG 08:10 08/08/2019 08:15 Alex Velasquez Physician;[Electronically signed by Amanda Dey R.N. (13:19 08/08/2019)] 2 OrderSheet [facility] Emergency Department [address] [place] [address] Phone #: ext- [phone] 08/08/2019 07:38 Patient: ROBERTO RAO Sex: M : 1950 Age: 69y[Electronically signed by Alex Vogt Physician (10:43 08/09/2019)][Electronically locked by Amanda Dey R.N. (13:19 08/08/2019)] Name Value Range Interpretation Code Description Data Miroslava rce(s) Supporting Document(s) ID Date Data Source [id number] 08/08/2019 07:38:00 AM EDT [facility] 1 Medication Reconciliation Report [facility] Emergency Department [address] [place] [address] Phone #: ext- [phone] 08/08/2019 07:38 Patient: ROBERTO RAO Sex: M : 1950 Age: 69yWeight: 108.4 kgHeight/Length: 66 in.BMI: 38.6ALLERGIES: Divalproex Sodium, Paxil, Simvastatin, WellbutrinThe patient's Home Medications are listed below:THE FOLLOWING MEDICATIONS NEED TO BE RECONCILED: Atorvastatin Calcium Oral (80 mg) Baclofen Oral (10 mg) Carvedilol Oral (3.125 mg) Citalopram Hydrobromide Oral (20 mg)The source(s) of the original Home Medication information:Not obtained.The following Medications were given to the patient in the Emergency Department:Clindamycin [IVPB] IVPB bolus 0, then 600 mg 100 mL/hr, administered: 08/08/2019 11:07:00 AMZosyn [IVPB] IVPB bolus 0, then 3.375 gm 100 mL/hr, administered: 08/08/2019 11:44:00 AMPercocet [PO] PO 1 tab, administered: 08/08/2019 12:18:00 PMThe following Medications were prescribed to the patient:None. Name Value Range Interpretation Code Description Data Miroslava rce(s) Supporting Document(s) ID Date Data Source [id number] 08/08/2019 07:38:00 AM EDT [facility] 1 Medication Administration Record [facility] Emergency Department [address] [place] [address] Phone #: ext- [phone] 08/08/2019 07:38 Patient: ROBERTO RAO Sex: M : 1950 Age: 69yWeight: 108.4 kgHeight/Length: 66 inBMI: 38.6ALLERGIES: Divalproex Sodium, Wellbutrin, Paxil, Simvastatin Date/Time Medication Administered Medication OrderedStart CLINDAMYCIN [IVPB] Clindamycin IVPB 600 mg (NOW)11:07 08/08/2019 Dose: 600 mg IVPBAmanda Dey R.N. Rate: 100 mL/hr over 30 minute(s)---- Dispensed: 50 mL bagStop Site: #1 left AC11:33 08/08/2019Amanda Dey R.N.Start ZOSYN [IVPB] (PIPERACILLIN Zosyn- IVPB 3.375 gm (in 50 mL11:44 08/08/2019 SOD-TAZOBACTAM SO) D5W, X1, NOW)Amanda Dey R.N. Dose: 3.375 gm IVPB---- Rate: 100 mL/hr over 30 minute(s)Stop Dispensed: 50 mL bag12:18 08/08/2019 Site: #1 left Amanda Baires R.N.Given PERCOCET [PO] Percocet PO 1 tab (HIGH ALERT12:18 08/08/2019 (OXYCODONE-ACETAMINOPHEN) MEDICATION)Amanda Dey R.N. Dose: 1 tab PO Name Value Range Interpretation Code Description Data Miroslava rce(s) Supporting Document(s) ID Date Data Source [id number] 08/08/2019 07:38:00 AM EDT [facility] 1 General Instructions [facility] Emergency Department [address] [place] [address] Phone #: ext- [phone] 08/08/2019 07:38 Patient: ROBERTO RAO Sex: M : 1950 Age: 69yBilateral pedal edema secondary to congestive heart failure and chronic venous insufficiency (Severe).Chronic venous insufficiency of the right lower extremity with edema, pain, stasis dermatitis and stasisulcer in the ankle and midfoot and left lower extremity with edema, pain, stasis dermatitis and stasis ulcerin the ankle.Cellulitis of the right lower leg, right ankle, right foot, left lower leg, left ankle and left foot.(Electronically signed by Alex Vogt, Physician 08/09/2019 10:43) Name Value Range Interpretation Code Description Data Miroslava rce(s) Supporting Document(s) ID Date Data Source [id number] 08/08/2019 07:38:00 AM EDT [facility] 1 Clinical Report - Nurses [facility] Emergency Department [address] [place] [address] Phone #: ext- [phone] 08/08/2019 07:38 Patient: ROBERTO RAO Sex: M : 1950 Age: 69yTRIAGEArrived by EMS. Historian: patient.Triage time: 07:43 08/08/2019. Acuity: LEVEL 3.Chief Complaint: RIGHT LOWER EXTREMITY PAIN, SWELLING and REDNESS. Location of symptoms-right foot. LEFT LOWER EXTREMITY PAIN, SWELLING and REDNESS.07:43 08/08/19. Alert.No injury occurred. --08:12 08/08/19 Amanda Dey R.N.07:43 08/08/2019 BP: 136/76. HR: 113. RR: 20. O2 saturation: 100%. Temp: 98.2 F. Pain level now 11/05.--08:12 08/08/19 Amanda Dey R.N.Height/Length: 66 inches Per Patient. --07:43 08/08/19 Amanda Dey R.N..Weight: 108.4 kg. BMI: 38.6. --07:43 08/08/19 Amanda Dey R.N.MedicationsAtorvastatin Calcium Oral (Tablet 80 mg). --08:08 08/08/19 Amanda Dey R.N. Baclofen Oral (Tablet 10 mg). Carvedilol Oral (Tablet 3.125 mg). --08:09 08/08/19 Amanda Dey R.N. Citalopram Hydrobromide Oral (Tablet 20 mg). --08:10 08/08/19 Amanda Dey R.N.AllergiesSimvastatin. --08:07 08/08/19 Amanda Dey R.N.Paxil. --08:07 08/08/19 Amanda Dey R.N.Wellbutrin. --08:08 08/08/19 Amanda Dey R.N.Divalproex Sodium. --08:08 08/08/19 Amanda Dey R.N.Lylvtuj79:43 08/08/19.SOCIAL HX: Never smoker. He has not traveled outside the [place]Infectious disease exposure: The patient was not exposed to influenza, Omar flu, H1N1 flu, Hepatitis A, Band C, MERS, SARS, tuberculosis, Ebola, HIV, Typhoid or Zika. Mask placed on patient. TB. Patient is nota known carrier of tuberculosis, hepatitis, HIV, MRSA or VRE. Patient is not a known carrier of CRE.SELF HARM ASSESSMENT: Self harm assessment was performed. The patient answered "no" to thequestion(s) "Have you recently felt down, depressed, or hopeless?", "Do you have thoughts of harming orkilling yourself?", "Do you have a plan for harming or killing yourself?", "Have you recently had thoughtsabout harming or killing others?", "Do you have any dangerous items in your possession?", "Have younoticed less interest or pleasure in doing things?", "Are you here because you tried to hurt yourself?" and"Have you ever tried to hurt yourself before today?". --08:12 08/08/19 Amanda Dey R.N. 2 Clinical Report - Nurses [facility] Emergency Department [address] [place] [address] Phone #: ext- [phone] 08/08/2019 07:38 ------ Patient: ROBERTO RAO [facility]#: [id number] Sex: M : 1950 Age: 69y FALL RISK ASSESSMENT: Fall risk assessment completed. Risk factors identified include severe pain and patient medications, age greater than 65 years, history of fall, diagnosis of stroke and impairment of mobility. Fall interventions initiated. Patient placed on stretcher. Side rails up. Bed in low position. Patient visible from nurses' station. Call light in reach of patient. Instructions given to patient. Verbalizes understanding. --08:14 08/08/19 Amanda Dey R.N. 13:18 08/08/19. ABUSE ASSESSMENT: Abuse assessment. Abuse denied. No suspicion of abuse. --13:18 08/08/19 Amanda Dey R.N.PHYSICAL ASSESSMENTGENERAL / NEURO / PSYCH: Oriented X 4. Alert.EXTREMITIES: Bilateral 4+ pitting and seeping edema of the lower extremities involving both feet, bothankles and both lower legs.SKIN: Bruising, abrasions and blister noted on the right ankle (-). ( weeping wounds with redness andswelling BLE.). --08:43 08/08/19 Amanda Dey R.N.NURSING PROGRESS NOTES09:18 08/08/19. BP: 107/79. MAP: 88. HR: 112. RR: 18. O2 saturation: 97%. --09:18 08/08/19 [facility] 10:01 08/08/19. BP: 106/73. MAP: 84. HR: 123. RR: 25. O2 saturation: 98%. --10:01 08/08/19 [facility] 11:00 08/08/19. BP: 112/71. MAP: 84. HR: 130. RR: 21. O2 saturation: 97%. --11:00 08/08/19 [facility] 11:07 08/08/2019 Site #1 started via IV in the left antecubital space with an 18g angiocath, with aseptic technique and good blood return; one attempt. Saline lock flushed with 10 mL saline. --11:07 08/08/19 Amanda Dey R.N. 11:07 08/08/2019 Started 600 mg of Clindamycin IVPB in bag #1 50 mL; at 100 mL/hr over 30 minute(s) via site #1. via IV pump. Allergies verified and confirmed 5 rights. IV patency established. IV site checked: no pain, redness, or swelling. IV flushed thoroughly pre- and post- medication administration. Information reviewed with patient. Verbalizes understanding. --11:07 08/08/19 Amanda Dey R.N. 11:33 08/08/2019 Clindamycin IVPB via IV site #1 Discontinued: completed. Total amount infused: 100 mL. IV patency established. IV site checked: no pain, redness, or swelling. IV flushed thoroughly. --11:44 08/08/19 Amanda Dey R.N. 11:44 08/08/2019 Started 3.375 gm of Zosyn (Piperacillin Sod-Tazobactam So) IVPB in bag #1 50 mL; at 100 mL/hr over 30 minute(s) via site #1. via IV pump. Allergies verified and confirmed 5 rights. IV patency 3 Clinical Report - Nurses [facility] Emergency Department [address] [place] [address] Phone #: ext- [phone] 08/08/2019 07:38 Patient: ROBERTO RAO Sex: M : 1950 Age: 69y established. IV site checked: no pain, redness, or swelling. IV flushed thoroughly pre- and post-medication administration. Information reviewed with patient. Verbalizes understanding. --11:44 08/08/19 Amanda Dey R.N. 12:01 08/08/19. BP: 100/61. MAP: 74. HR: 127. RR: 22. O2 saturation: 97%. --12:01 08/08/19 [facility], ER Tech1 12:18 08/08/2019 Percocet (oxyCODONE- Acetaminophen) PO 1 tab given. Allergies verified and confirmed 5 rights. Information reviewed with patient. Verbalizes understanding. --12:18 08/08/19 Amanda Dey R.N. 12:18 08/08/2019 Zosyn IVPB via IV site #1 Discontinued: infused. Total amount infused: 100 mL. IV patency established. IV site checked: no pain, redness, or swelling. IV flushed thoroughly. --12:18 08/08/19 Amanda Dey R.N. 13:00 08/08/19. BP: 113/73. MAP: 86. HR: 118. RR: 17. O2 saturation: 97%. --13:01 08/08/19 [facility] Tech[facility]a ER Tech1 13:09 08/08/19. BP: 96/60. HR: 115. RR: 21. O2 saturation: 98%. Temp: 99.3 F. Pain level now 11/05. --13:10 08/08/19 Amanda Dey R.N.DISPOSITION / DISCHARGE 13:11 08/08/19. The patient left via ambulance and on a stretcher. Transferred to [facility]. Provided to EMS and transfer facility. --13:11 08/08/19 Amanda Dey R.N. 13:11 08/08/2019 BP: 96/60. HR: 115. RR: 21. O2 saturation: 98%. Temp: 99.3 F. Pain level now 11/05. --13:11 08/08/19 Amanda Dey R.N. Departure time: 13:17 08/08/2019. --13:17 08/08/19 Amanda Dey R.N.Locked/Released at 08/08/2019 13:19 by Amanda Dey R.N. Name Value Range Interpretation Code Description Data Miroslava rce(s) Supporting Document(s) ID Date Data Source [id number] 08/08/2019 07:38:00 AM EDT [facility] 1 Clinical Report - Physicians/Mid Levels [facility] Emergency Department [address] [place] [address] Phone #: ext- [phone] 08/08/2019 07:38 Patient: ROBERTO RAO Sex: M : 1950 Age: 69y Time Seen: 07:40 08/08/2019. Arrived- By ambulance. Historian- EMS personnel. Disposition decision: 11:00 08/08/2019.HISTORY OF PRESENT ILLNESS Chief Complaint: LOWER EXTREMITY PAIN and SWELLING and TROUBLE WALKING; PAIN, SWELLING and WEAKNESS; (Weak R leg d/t prior CVA). Severity is described as being moderate. It has become recently worse. The quality is noted to be burning, aching, "pain" and similar to prior episodes. No radiation. This st arted several years ago and is still present and worsening. It was gradual in onset. Modifying factors- worsened by movement. Symptoms located in the area of the right ankle, right knee, right leg, right foot, left knee, left leg, left foot and left ankle. The patient has had redness and swelling. He has had difficulty walking. No bladder dysfunction, bowel dysfunction or sensory loss. Severe motor loss involving the right foot, lower leg and upper leg. Patient notes the possibility of an injury. Similar symptoms previously. Patient has had similar symptoms many times, chronically. ( This is worst appearance of his legs and feet). Recent medical care: The patient was seen recently at another facility in a clinic.REVIEW OF SYSTEMSNo cough, chest pain, difficulty breathing, fever or enlarged lymph nodes. No neck pain, back pain,headache, blurred vision or sore throat. No abdominal pain, vomiting, diarrhea, black stools or difficultywith urination. No bloody stools. The patient has had skin rash consisting of "redness" located on theright leg, right ankle, right foot, left leg, left ankle and left foot (Cellulitis of both legs).PAST HISTORYPast history not negative. See nurses notes. Hypertension. Neurological disease. GI disease. Otherdisease. ( HyperlipidemiaCVA with R hemiplegiaGERDDepressionAnticoagulationFallsDVTsCellulitisA. Fibrillation).SOCIAL HISTORYNever smoker. No alcohol use or drug use.ADDITIONAL NOTES 2 Clinical Report - Physicians/Mid Levels [facility] Emergency Department [address] [place] [address] Phone #: ext- [phone] 08/08/2019 07:38 Patient: ROBERTO RAO Sex: M : 1950 Age: 69y The nursing notes have been reviewed with agreement regarding the chief complaint, HPI, ROS, PMH and patient medications and allergies.PHYSICAL EXAMVital Signs: 08/08/2019 07:43 BP: 136/76. MAP: 96. HR: 113. RR: 20. O2 saturation: 100%. Temp: 98.2F. Have been reviewed and appear to be correct. Hypertensive. Tachycardic. Respiratory ratenormal. Temperature normal. Oxygen saturation normal.Appearance: Alert. Anxious. Appears to be in pain. Patient in moderate distress. No backboard orC-collar. In distress.Eyes: Pupils equal, round and reactive to light. Eyes normal inspection.ENT: Nose normal. Pharynx normal.Neck: Normal inspection. Neck supple.CVS: Tachycardia. Abnormal rhythm, which is tachycardic and irregularly irregular. Normal heart rateand rhythm. Heart sounds abnormal.Respiratory: No respiratory distress. Painless inspiration. Breath sounds normal.Abdomen: Soft and nontender. No organomegaly.Back: Normal inspection. No tenderness. ROM normal. (Markedly edematous, ulcerated and celluliticlegs (R worse than L)).Skin: Skin not intact. Skin warm and dry. Normal skin color. Normal skin turgor. (Multiple ulceratedareas on both lower legs and R foot).Extremities: Bilateral severe 3+ pitting edema of the upper extremities. Lower extremities do not exhibitnormal ROM. Lower extremity edema present. Swelling, warmth, tenderness and erythema present inthe right leg, right ankle and right foot and left leg, left ankle and left foot. Bilateral severe 4+ pittingedema of the lower extremities involving both feet, both ankles and both lower legs. Extremities nototherwise negative.Gait: Abnormal gait. He was unable to bear weight. Gait not tested due to pain.Neuro: Oriented X 3. Motor deficit noted. He has weakness of the right arm, right elbow flexion, rightelbow extension, right leg and right foot. No sen radha deficit.LABS, X-RAYS, AND EKGLaboratory Tests: Laboratory tests have been ordered, with results reviewed and considered in themedical decision making process. PT/INR: (CORINA: 08/08/2019 12:54) ( MsgRcvd 08/08/2019 13:49) Canceled PTT: (CORINA: 08/08/2019 12:54) ( MsgRcvd 08/08/2019 13:49) Canceled CBC w Diff: (CORINA: 08/08/2019 09:31) ( MsgRcvd 08/08/2019 09:44) Final results Test Result Flag Units (Reference) CBC W/AUTOMATED DIFF COMPLETE BLOOD COUNT WBC 7.1 10/uL (4.2 - 11.0) RBC 4.18 L 10/uL (4.50 - 6.30) HEMOGLOBIN 12.9 L g/dL (14.0 - 16.0) HEMATOCRIT 40.5 L % (41.0 - 51.0) MCV 96.9 H fL (80.0 - 94.0) MCH 30.9 pg (27.0 - 34.0) MCHC 31.9 g/dL (31.0 - 36.0) 3 Clinical Report - Physicians/Mid Levels [facility] Emergency Department [address] [place] [address] Phone #: ext- [phone] 08/08/2019 0 7:38 Patient: ROBERTO RAO Sex: M : 1950 Age: 69y RDW 13.5 % (11.5 - 14.8) PLATELETS 222 10/uL (150 - 450) MPV 10.3 fL (7.4 - 10.4) NEUT 68.3 % (37.0 - 80.0) LYMPH 19.3 L % (25.0 - 40.0) MONO 8.7 H % (3.0 - 8.0) EOS 2.7 % (0.0 - 7.0) BASO 0.7 % (0.0 - 2.0) %IG 0.3 H % (0.0 - 0.0) %NRBC 0.0 % (0.0 - 0.0) #NEUT 4.88 10/uL (2.00 - 6.90) #LYMPH 1.38 10/uL (0.60 - 3.40) #MONO 0.62 10/uL (0.00 - 0.90) #EOS 0.19 10/uL (0.00 - 0.70) #BASO 0.05 10/uL (0.00 - 0.20) #IG 0.02 10/uL (0.00 - 0.10) #NRBC 0.00 10/uL (0.00 - 0.00) MANUAL DIFF NOT INDICATED RBC MORPH NOT INDICATEDCMP: (CORINA: 08/08/2019 08:19) ( MsgRcvd 08/08/2019 09:21) Final results Test Result Flag Units (Reference) COMPREHENSIVE METABOLIC PANEL COMPREHENSIVE METABOLIC PANEL SODIUM 136 mEq/L (134 - 153) POTASSIUM 4.7 mEq/L (3.6 - 5.0) CHLORIDE 101 mEq/L (98 - 107) CO2 23 MEQ/L (22 - 30) GLUCOSE 95 MG/DL (65 - 110) BUN 19 MG/DL (7 - 21) CREATININE 1.2 MG/DL (0.7 - 1.5) BUN/CREAT 16 (8 - 27) TOTAL PROTEIN 8.1 G/DL (6.3 - 8.2) ALBUMIN 3.9 G/DL (3.9 - 5.0) GLOBULIN 4.2 H GM/DL (2.4 - 3.2) A/G RATIO 0.9 (0.8 - 2.0) CALCIUM 9.8 MG/DL (8.4 - 10.2) TOTAL BILI 1.0 MG/DL (0.2 - 1.3) ALKALINE PHOS 73 U/L (38 - 126) SGOT/AST 26 U/L (5 - 40) SGPT/ALT 11 U/L (7 - 56) ANION GAP 12.0 mmol/L (8.0 - 16.0) AGE 69 yrs NON- AA GFR >60 mL/min AFR AMER GFR >60 mL/min Male GFR Interprentation 20-49 yrs >60 mL/min Fdmmpc62-01 yrs >56 mL/min Normal 60- 69 yrs >49 mL/min Normal 70-79yrs>42 mL/min Normal 80 and above >35 mL/min Normal Female GFRInterpretation 20-39 yrs >60 mL/min Normal 40-49 yrs >58 mL/minNormal 50-59 yrs >51 mL/min Normal 60-69 yrs >45 mL/min Cpcdwh81-60 yrs >39 mL/min Normal 80 and above >32 mL/min NormalTroponin-T: (CORINA: 08/08/2019 08:19) ( MsgRcvd 08/08/2019 09:25) Final results Test Result Flag Units (Reference) TROPONIN T 0.01 NG/ML (0.00 - 0.10) TROPONIN T0.1 ng/ml Recommended as the clinical threshold value forTroponin T.US Lower Ext Venous Bilateral: (CORINA: 08/08/2019 07:53) ( Mscvd 08/08/2019 10:33) In ProgressUS BILATERAL VENOUS ARM/LEGREASON FOR PROCESS: DVTTRANSPORTATION: STRETCHER IV? N O2? NPREGNANCY STATUS: NA MALE ISOLATION N Exam 4 Clinical Report - Physicians/Mid Levels [facility] Emergency Department [address] [place] [address] Phone #: ext- [phone] 08/08/2019 07:38 Patient: ROBERTO RAO Sex: M : 1950 Age: 69y [place] [address] PHONE: [phone] FAX: [phone] Name .................. : LOUISE James Acct Number.................. : [id number] ROOM. ................. : TR-03 MR Number ................... : [id number] Stay type ............. : E/R Discharge Date......... ... : Admit Date ......... : 08/08/19 Admit Phys .................... : VENERUS BR Date of ....... : 1950 Family Phys ................... : NO PCP Phone .................. : [phone] Age ................................ : 69 Film# .................. .:[id number] Sex ................................. : M Unsigned transcriptions are preliminary reports and do not represent a medical or legal document DOPPLER VENOUS BILAT LEG [id number] COMPLETE:08/08/19 09:30 [facility] [id number] (REASON FOR PROCESS: DVT BILATERAL LOWER EXTREMITY VENOUS DOPPLER ULTRASOUND: FINDINGS: Duplex color sonography of the major deep venous system of the right lower extremity does not demonstrate a DVT in the visualized deep veins of the leg, however the mid and distal femoral vein are not identified. Flow and compressibility are demonstrated in the common femoral, proximal femoral and popliteal veins. Duplex color sonography of the major deep venous system of the left lower extremity does not demonstrate the distal femoral vein, but again, does not demonstrate a DVT in the visualized veins. Flow and compressibility are demonstrated in the common femoral, proximal mid-femoral and popliteal veins. There is moderate to severe edema of the right leg and mild edematous changes of the left calf. IMPRESSION: Nonvisualization of portions of the bilateral femoral veins. No evidence of a DVT in the visualized veins of the bilateral lower extremities. Electronically Reviewed and Signed By DCTNAME , SIGNDATE, AML Transcribe Initials: DZ , Transcribe Date: 08/08/19 10:30, Dictation Date: <<REPDIST>> Page 1of 1Urinalysis: (CORINA: 08/08/2019 07:50) ( MsgRcvd 08/08/2019 13:50) CanceledSOURCE: Clean CatchNURSE COLLECTED? N.Note - Tests: (U/S of legs - No DVTs Troponin - 0.01CBC - Unremarkable, except H/H 12.9 / 45, [place] 8.7CMP - UnremarkableEKG - Accelerated junctional rhythm with occas extra beats, incomplete RBBB, old inf. infarct.). 5 Clinical Report - Physicians/Mid Levels [facility] Emergency Department [address] [place] [address] Phone #: ext- [phone] 08/08/2019 07:38 Patient: ROBERTO RAO Sex: M : 1950 Age: 69yPROGRESS AND PROCEDURESCourse of Care: 10:12 Aug 08 2019. Patient is stable. 10:12 Aug 08 2019. Pt. has bilateral LE edema and cellultis bu no DVT on ultrasound. He has an open wound on dorsum of R foot. 10:59 Aug 08 2019. Will transfer to [facility] as direct admit as per Dr. Maloney (accepting hospitalist). Will give IV ABX first. Critical care performed (130 minutes). Time is exclusive of separately billable procedures. Time includes: direct patient care, patient reassessment, coordination of patient care, interpretation of data (laboratory data and pulse oximetry), review of patient's medical records, medical consultation and documentation of patient care- see progress notes. Procedures included in critical care time: peripheral IV placement and phlebotomy- see progress notes. Disposition: Benefits, risks and alternatives to transfer explained to patient and caregiver. Transferred to [facility]. Summary of care (CCDA) provided to transport team, EMS, patient, family and transfer facility via paper and digital media. 11:00 Aug 08 2019. UTI (catheter associated) was not present prior to transfer. Pressure ulcer was not present prior to transfer. Vascular infection (catheter associated) was not present prior to transfer. Surgical site infection was not present prior to transfer. An object left in surgery was not present prior to transfer. Blood incompatibility was not present prior to transfer. Air embolism was not present prior to transfer.CLINICAL IMPRESSION Bilateral pedal edema secondary to congestive heart failure and chronic venous insufficiency (Severe). Chronic venous insufficiency of the right lower extremity with edema, pain, stasis dermatitis and stasis ulcer in the ankle and midfoot and left lower extremity with edema, pain, stasis dermatitis and stasis ulcer in the ankle. Cellulitis of the right lower leg, right ankle, right foot, left lower leg, left ankle and left foot.(Electronically signed by Alex Vogt, Physician 08/09/2019 10:43) Name Value Range Interpretation Code Description Data Miroslava rce(s) Supporting Document(s) ID Date Data Source [id number] 08/08/2019 07:38:[address] [facility] for ROBERTO RAO VisitID: [id number] Date: 11:15Lab results reviewed, preliminary wound culture results show ew Gram Negative Vicki Communicatedinformation to [facility] [phone] fax(Electronically signed by Nilsa Jay RN - 08/10/2019 11:15)08/12/2019 14:58WOUND CULTURE AND SENSITITY FAXED TO [facility] [phone](Electronically signed by Sandy Fletcher R.N. - 08/12/2019 14:58) Name Value Range Interpretation Code Description Data Miroslava rce(s) Supporting Document(s) ID Date Data Source [id number] 08/12/2019 11:22:00 AM EDT [facility] [address] [place] [address] PHONE: [phone] FAX: [phone] Name ..............: LOUISE MEJIA EAcct Number ..........................: [id number] ROOM. ............: [facility] MR Number ............................: [id number] Stay type.........: E/R Discharge Date...............:08/08/19 Admit Date .....: 08/08/19 Admit Phys .............................: VENERUS BR Date of ..: 1950 Family Phys ...........................: NO PCP Phone..............: [phone] Age.................................:69 Fi lm# ...............:[id number] Sex.................................:M Unsigned transcriptions are preliminary reports and do not represent a medical or legal document EKG [id number] COMPLETE:08/09/19 01:54 T [id number] Please See Scanned Results. Name Value Range Interpretation Code Description Data Miroslava rce(s) Supporting Document(s) ID Date Data Source [id number] 08/12/2019 06:34:39 AM EDT [facility] Name Value Range Interpretation Code Description Data Miroslava rce(s) Supporting Document(s) Leukocytes [#/volume] in Blood by Automated count 4.2 10*3/uL 4-10 [facility] Erythrocytes [#/volume] in Blood by Automated count 3.73 10*6/uL 4.6- 6.1 L [facility] Hemoglobin [Mass/volume] in Blood 12.1 g/dL 13.5-18 L [facility] Hematocrit [Volume Fraction] of Blood by Automated count 35.4 % 4 1-53 L [facility] Erythrocyte mean corpuscular volume [Entitic volume] by Auto mated count 95.1 fL 80-96 [facility] Erythrocyte mean corpuscular hemoglobin [Entitic mass] by Automated count 32.4 pg 27-33 [facility] Erythrocyte mean corpuscular hemoglobin concentration [Mass/volume] by Automated count 34.1 g/dL 32.0-36.0 [facility] width [Ratio] by Automated count 14.4 % 11.5-14.5 [facility] Platelets [#/volume] in Blood by Automated count 188 10*3/uL 150-400 [facility] Differential cell count method - Blood [facility] Neutrophils/100 leukocytes in Blood by Automated count 61 % [facility] Lymphocytes/100 leukocytes in Blood by Automated count 21 % [facility] Monocytes/100 leukocytes in Blood by Automated count 12 % [facility] Eosinophils/100 leukocytes in Blood by Automated count 5 % [facility] Basophils/100 leukocytes in Blood by Automated count 1 % [facility] Neutrophils [#/volume] in Blood by Automated count 2.55 10*3/uL 1.8-7 .0 [facility] Lymphocytes [#/volume] in Blood by Automated count 0.88 10*3/uL 1.2-4 .0 L [facility] Monocytes [#/volume] in Blood by Automated count 0.48 10*3/uL 0-0.8 [facility] Eosinophils [#/volume] in Blood by Automated count 0.22 10*3/uL 0-0.5 [facility] Basophils [#/volume] in Blood by Automated count 0.04 10*3/uL 0-0.2 [facility] Nucleated erythrocytes/100 leukocytes [Ratio] in Blood by Automated count 0 /100{WBCs} 0-0 [facility] ID Date Data Source [id number] 08/12/2019 06:40:14 AM [facility] Name Value Range Interpretation Code Description Data Miroslava rce(s) Supporting Document(s) Bicarbonate [Moles/volume] in Serum 20 mmol/L 22-29 L [facility] Chloride [Moles/volume] in Serum or Plasma 102 mmol/L 98-107 [facility] Creatinine [Mass/volume] in Serum or Plasma 1.34 mg/dL 0.70-1.20 H [facility] Glucose [Mass/volume] in Serum or Plasma 108 mg/dL 70-140 [facility] Potassium [Moles/volume] in Serum or Plasma 3.6 mmol/L 3.4-5.1 [facility] Sodium [Moles/volume] in Serum or Plasma 137 mmol/L 136-145 [facility] Urea nitrogen [Mass/volume] in Serum or Plasma 16 mg/dL 8-23 [facility] Anion gap 3 in Serum or Plasma 15 mmol/L 8-15 [facility] Osmolality of Serum or Plasma by calculation 286 mosm/kg 275-300 [facility] Creatinine/Urea nitrogen [Mass Ratio] in Serum or Plasma 12 [facility] Calcium [Mass/volume] in Serum or Plasma 8.7 mg/dL 8.8-10.2 L [facility] Glomerular filtration rate/1.73 sq M pre dicted among non-blacks [Volume Rate/Area] in Serum or Plasma by Creatinine-based formula (MDRD) 52 mL/min/1.73m2 >60 L [facility] Glomerular filtration rate/1.73 sq M pre dicted among blacks [Volume Rate/Area] in Serum or Plasma by Creatinine-based formula (MDRD) 61 mL/min/1.73m2 >60 [facility] ID Date Data Source [id number] 08/11/2019 07:13:35 AM [facility] Value Range Interpretation Code Description Data Miroslava rce(s) Supporting Document(s) Leukocytes [#/volume] in Blood by Automated count 5.0 10*3/uL 4-10 [facility] Erythrocytes [#/volume] in Blood by Automated count 4.07 10*6/uL 4.6- 6.1 [facility] Hemoglobin [Mass/volume] in Blood 13.2 g/dL 13.5-18 L [facility] Hematocrit [Volume Fraction] of Blood by Automated count 39.4 % 4 1-53 L [facility] Erythrocyte mean corpuscular volume [Entitic volume] by Auto mated count 96.8 fL 80-96 H [facility] Erythrocyte mean corpuscular hemoglobin [Entitic mass] by Automated count 32.4 pg 27-33 [facility] Erythrocyte mean corpuscular hemoglobin concentration [Mass/volume] by Automated count 33.5 g/dL 32.0-36.0 [facility] Erythrocyte distribution width [Ratio] by Automated count 14.4 % 11.5-14.5 [facility] Platelets [#/volume] in Blood by Automated count 191 10*3/uL 150-400 [facility] Differential cell count method - Blood [facility] Neutrophils/100 leukocytes in Blood by Automated count 66 % [facility] Lymphocytes/100 leukocytes in Blood by Automated count 20 % [facility] Monocytes/100 leukocytes in Blood by Automated count 10 % [facility] Eosinophils/100 leukocytes in Blood by Automated count 3 % [facility] Basophils/100 leukocytes in Blood by Automated count 1 % [facility] Neutrophils [#/volume] in Blood by Automated count 3.33 10*3/uL 1.8-7 .0 [facility] Lymphocytes [#/volume] in Blood by Automated count 0.98 10*3/uL 1.2-4 .0 L [facility] Monocytes [#/volume] in Blood by Automated count 0.49 10*3/uL 0-0.8 [facility] Eosinophils [#/volume] in Blood by Automated count 0.17 10*3/uL 0-0.5 [facility] Basophils [#/volume] in Blood by Automated count 0.04 10*3/uL 0-0.2 [facility] Nucleated erythrocytes/100 leukocytes [Ratio] in Blood by Automated count 0 /100{WBCs} 0-0 [facility] ID Date Data Source [id number] 08/11/2019 07:35:00 AM EDT [facility] Name Value Range Interpretation Code Description Data Miroslava rce(s) Supporting Document(s) Bicarbonate [Moles/volume] in Serum 19 mmol/L 22-29 L [facility] Chloride [Moles/volume] in Serum or Plasma 100 mmol/L 98-107 [facility] Creatinine [Mass/volume] in Serum or Plasma 1.20 mg/dL 0.70-1.20 [facility] Glucose [Mass/volume] in Serum or Plasma 104 mg/dL 70-140 [facility] Potassium [Moles/volume] in Serum or Plasma 3.8 mmol/L 3.4-5.1 [facility] Sodium [Moles/volume] in Serum or Plasma 135 mmol/L 136-145 L [facility] Urea nitrogen [Mass/volume] in Serum or Plasma 19 mg/dL 8-23 [facility] Anion gap 3 in Serum or Plasma 17 mmol/L 8-15 H [facility] Osmolality of Serum or Plasma by calculation 283 mosm/kg 275-300 [facility] Creatinine/Urea nitrogen [Mass Ratio] in Serum or Plasma 16 [facility] Calcium [Mass/volume] in Serum or Plasma 8.9 mg/dL 8.8-10.2 [facility] Glomerular filtration rate/1.73 sq M pre dicted among non-blacks [Volume Rate/Area] in Serum or Plasma by Creatinine-based formula (MDRD) 60 mL/min/1.73m2 >60 L [facility] Glomerular filtration rate/1.73 sq M pre dicted among blacks [Volume Rate/Area] in Serum or Plasma by Creatinine-based formula (MDRD) 69 mL/min/1.73m2 >60 [facility] ID Date Data Source [id number] 08/10/2019 09:05:34 AM [facility] Name Value Range Interpretation Code Description Data Miroslava rce(s) Supporting Document(s) Vancomycin [Mass/volume] in Serum or Plasma --trough 17.8 ug/mL 10.0- 20.0 [facility] ID Date Data Source [id number] 08/10/2019 05:48:30 AM [facility] Name Value Range Interpretation Code Description Data Miroslava rce(s) Supporting Document(s) Leukocytes [#/volume] in Blood by Automated count 5.4 10*3/uL 4-10 [facility] Erythrocytes [#/volume] in Blood by Automated count 3.93 10*6/uL 4.6- 6.1 [facility] Hemoglobin [Mass/volume] in Blood 12.7 g/dL 13.5-18 L [facility] Hematocrit [Volume Fraction] of Blood by Automated count 37.8 % 4 1-53 L [facility] Erythrocyte mean corpuscular volume [Entitic volume] by Auto mated count 96.2 fL 80-96 H [facility] Erythrocyte mean corpuscular hemoglobin [Entitic mass] by Automated count 32.3 pg 27-33 [facility] Erythrocyte mean corpuscular hemoglobin concentration [Mass/volume] by Automated count 33.6 g/dL 32.0-36.0 [facility] Erythrocyte distribution width [Ratio] by Automated count 14.7 % 11.5-14.5 H [facility] Platelets [#/volume] in Blood by Automated count 189 10*3/uL 150-400 [facility] Differential cell count method - Blood [facility] Neutrophils/100 leukocytes in Blood by Automated count 62 % [facility] Lymphocytes/100 leukocytes in Blood by Automated count 23 % [facility] Monocytes/100 leukocytes in Blood by Automated count 8 % [facility] Eosinophils/100 leukocytes in Blood by Automated count 5 % [facility] Basophils/100 leukocytes in Blood by Automated count 2 % [facility] Neutrophils [#/volume] in Blood by Automated count 3.38 10*3/uL 1.8-7 .0 [facility] Lymphocytes [#/volume] in Blood by Automated count 1.24 10*3/uL 1.2-4 .0 [facility] Monocytes [#/volume] in Blood by Automated count 0.44 10*3/uL 0-0.8 [facility] Eosinophils [#/volume] in Blood by Automated count 0.26 10*3/uL 0-0.5 [facility] Basophils [#/volume] in Blood by Automated count 0.12 10*3/uL 0-0.2 [facility] Nucleated erythrocytes/100 leukocytes [Ratio] in Blood by Automated count 0 /100{WBCs} 0-0 [facility] ID Date Data Source [id number] 08/10/2019 05:50:57 AM EDT [facility] Name Value Range Interpretation Code Description Data Miroslava rce(s) Supporting Document(s) Bicarbonate [Moles/volume] in Serum 20 mmol/L 22-29 L [facility] Chloride [Moles/volume] in Serum or Plasma 101 mmol/L 98-107 [facility] Creatinine [Mass/volume] in Serum or Plasma 1.49 mg/dL 0.70-1.20 H [facility] Glucose [Mass/volume] in Serum or Plasma 111 mg/dL 70-140 [facility] Potassium [Moles/volume] in Serum or Plasma 4.0 mmol/L 3.4-5.1 [facility] Sodium [Moles/volume] in Serum or Plasma 137 mmol/L 136-145 [facility] Urea nitrogen [Mass/volume] in Serum or Plasma 22 mg/dL 8-23 [facility] Anion gap 3 in Serum or Plasma 16 mmol/L 8-15 H [facility] Osmolality of Serum or Plasma by calculation 288 mosm/kg 275-300 [facility] Creatinine/Urea nitrogen [Mass Ratio] in Serum or Plasma 14 [facility] Calcium [Mass/volume] in Serum or Plasma 9.0 mg/dL 8.8-10.2 [facility] Glomerular filtration rate/1.73 sq M pre dicted among non-blacks [Volume Rate/Area] in Serum or Plasma by Creatinine-based formula (MDRD) 46 mL/min/1.73m2 >60 L [facility] Glomerular filtration rate/1.73 sq M pre dicted among blacks [Volume Rate/Area] in Serum or Plasma by Creatinine-based formula (MDRD) 53 mL/min/1.73m2 >60 L [facility] ID Date Data Source [id number] 08/09/2019 04:24:49 PM EDT [facility] Name Value Range Interpretation Code Description Data Miroslava rce(s) Supporting Document(s) Consultation [facility] QMPTVy3vKvQPCoKb63/WHZzjSDFml2LfZXxfTZy0PGxdPUClU6GrKYJ4vT0fYOS9IZwOGgSoQbDdYvLw [facility] [file] W1NAiBDb2kxgNnOAnizmO8bOQB8Ahso4y2RZ+MEDICAL NURSE/G9 [file] MtfraeOtjU2EjNDPaPZPvUkz+machine setter and repairer/AtzLsA0HNs5rwRmdXjxDnpMRPfxW4HYydWoQhBx9I0Edx12Fm3Bx [file] Lp/f2QXE1r+R+OEHDx+g3OMmLjW3pfl9SfiVMS+PNEUDRAULIC SYSTEMS MECHANIC [file] EPVh0hPDOsoFyY+MEtGjZmOXXWzqLmnOfz/hoop machine operator++Xx8 [file] eTesN9ohG1YKN+archival studies professor+fTiovQIZSgXqzpgD29JhBRr+Kh/FTXxsWB9N8CUWvaPwtKCdnGWuIFj2gOUX5qt [file] [id number] ID Date Data Source [id number] 08/09/2019 03:39:00 [place] [address] PHONE: [phone] FAX: [phone] Name .................. : LOUISE MEJIA Erika Acct Number.................. : [id number] ROOM. ................. : TR03 Number ................... : [id number] Stay type ............. : E/R Discharge Date......... ... : Admit Date ......... : 07/27 07/18 Admit Phys .................... : SD PADILLA Date of ....... : 1950 Family Phys ................... : NO PCP Phone .................. : [phone] Age ................................ : 69 Film# .................. .:[id number] Sex ................................. : M Unsigned transcriptions are preliminary reports and do not represent a medical or legal document DOPPLER VENOUS BILAT LEG [id number] COMPLETE:08/08/19 09:30 [facility] [id number] (REASON FOR PROCESS: DVT BILATERAL LOWER EXTREMITY VENOUS DOPPLER ULTRASOUND: FINDINGS: Duplex color sonography of the major deep venous system of the right lower extremity does not demonstrate a DVT in the visualized deep veins of the leg, however the mid and distal femoral vein are not identified. Flow and compressibility are demonstrated in the common femoral, proximal femoral and popliteal veins. Duplex color sonography of the major deep venous system of the left lower extremity does not demonstrate the distal femoral vein, but again, does not demonstrate a DVT in the visualized veins. Flow and compressibility are demonstrated in the common femoral, proximal mid- femoral and popliteal veins. There is moderate to severe edema of the right leg and mild edematous changes of the left calf. IMPRESSION: Nonvisualization of portions of the bilateral femoral veins. No evidence of a DVT in the visualized veins of the bilateral lower extremities. Electronically Reviewed and Signed By Jean Carlos Méndez MD , 08/09/19 15:39, AML Transcribe Initials: DANE , Transcribe Date: 08/08/19 10:30, Dictation Date: Copy for: EMERGENCY DEPT via modem Copy for: 710 MED REC DISCHARGED Page 1 of 1 Name Value Range Interpretation Code Description Data Miroslava rce(s) Supporting Document(s) ID Date Data Source [id number] 08/09/2019 01:02:40 PM EDT [facility] Name Value Range Interpretation Code Description Data Miroslava rce(s) Supporting Document(s) Bicarbonate [Moles/volume] in Serum 20 mmol/L 22-29 L [facility] Chloride [Moles/volume] in Serum or Plasma 101 mmol/L 98-107 [facility] Creatinine [Mass/volume] in Serum or Plasma 1.26 mg/dL 0.70-1.20 H [facility] Glucose [Mass/volume] in Serum or Plasma 104 mg/dL 70-140 [facility] Potassium [Moles/volume] in Serum or Plasma 3.8 mmol/L 3.4-5.1 [facility] Sodium [Moles/volume] in Serum or Plasma 135 mmol/L 136-145 L [facility] Urea nitrogen [Mass/volume] in Serum or Plasma 19 mg/dL 8-23 [facility] Anion gap 3 in Serum or Plasma 14 mmol/L 8-15 [facility] Osmolality of Serum or Plasma by calculation 283 mosm/kg 275-300 [facility] Creatinine/Urea nitrogen [Mass Ratio] in Serum or Plasma 15 [facility] Calcium [Mass/volume] in Serum or Plasma 8.8 mg/dL 8.8-10.2 [facility] Glomerular filtration rate/1.73 sq M pre dicted among non-blacks [Volume Rate/Area] in Serum or Plasma by Creatinine-based formula (MDRD) 57 mL/min/1.73m2 >60 L [facility] Glomerular filtration rate/1.73 sq M pre dicted among blacks [Volume Rate/Area] in Serum or Plasma by Creatinine-based formula (MDRD) 65 mL/min/1.73m2 >60 [facility] ID Date Data Source [id number] 08/09/2019 09:40:52 AM EDT [facility] Name Value Range Interpretation Code Description Data Miroslava e(s) Supporting Document(s) Consultation [facility] [id number]/KDOdpRQYnv6NlZEdyUPs3YOmyNYDfH3QxSPO7uT8lDBQ2EEhXAwZiKrInMlMj lbm [file] [id number]PUg= ID Date Data Source [id number] 08/08/2019 10:39:19 PM [facility] CT LOWER EXTREMITY WITH CONTRAST [id number] NAL RESULTInterpreted by:BRENDA SaldivarROCEDURE INFORMATION: Exam: CT Right Lower Extremity With Contrast; Lower Leg Exam date and time: 08/08/2019 10:15 PM Age: 69 years old Clinical indication: Left lower leg pain. Concern for abscess. TECHNIQUE: Imaging protocol: CT of the Right lower extremity with intravenous contrast was performed. Exam focused on the lower leg. Radiation optimization: All CT scans at this facility use at least one of these dose optimization techniques: automated exposure control; mA and/or kV adjustment per patient size (includes targeted exams where dose is matched to clinical indication); or iterative reconstruction. Contrast material: OMN; Contrast volume: 100 ml; Contrast route: IV; COMPARISON: No relevant prior studies available. FINDINGS: There is severe subcutaneous edema involving the lower leg extending along the dorsum of the foot; query cellulitis. No abscess is seen. No acute osseous destruction is seen to suggest osteomyelitis. No soft tissue gas is seen to suggest necrotizing fasciitis. The bones of the right lower extremity appear asymmetrically demineralized. No fracture, dislocation or subluxation. No periosteal reaction or supsicious bone lesion. IMPRESSION: 1. There is severe subcutaneous edema involving the lower leg extending along the dorsum of the foot; query cellulitis. No abscess is seen. No acute osseous destruction is seen to suggest osteomyelitis. No soft tissue gas is seen to suggest necrotizing fasciitis. 2. The bones of the right lower extremity appear asymmetrically demineralized. 3. No acute fracture is seen. PROCEDURE INFORMATION: Exam: CT Left Lower Extremity With Contrast; Lower Leg Exam date and time: 08/08/2019 10:15 PM Age: 69 years old Clinical indication: Left lower leg pain. Concern for abscess. TECHNIQUE: Imaging protocol: CT of the Left lower extremity with intravenous contrast was performed. Exam focused on the lower leg. Radiation optimization: All CT scans at this facility use at least one of these dose optimization techniques: automated exposure control; mA and/or kV adjustment per patient size (includes targeted exams where dose is matched to clinical indication); or iterative reconstruction. Contrast material: OMN; Contrast volume: 100 ml; Contrast route: IV; COMPARISON: No relevant prior studies available. FINDINGS: There is moderate a subcutaneous edema involving the lower leg extending along the dorsum of the foot; query cellulitis. No abscess is seen. No acute osseous destruction is seen to suggest osteomyelitis. No soft tis brissa gas is seen to suggest necrotizing fasciitis. No fracture, dislocation or subluxation. No periosteal reaction or supsicious bone lesion. IMPRESSION: 1. There is moderate subcutaneous edema involving the lower leg extending along the dorsum of the foot; query cellulitis. No abscess is seen. No acute osseous destruction is seen to suggest osteomyelitis. No soft tissue gas is seen to suggest necrotizing fasciitis. 2. No acute fracture is seen. THIS DOCUMENT HAS BEEN ELECTRONICALLY SIGNED BY NIK LATHAM MDThis document has been electronically signed by Nik Latham MD on 08/08/2019 10:39 PM Name Value Range Interpretation Code Description Data Miroslava rce(s) Supporting Document(s) ID Date Data Source [id number] 08/13/2019 09:00:12 AM [facility] Cmnt XXX-Imp : RAMicroorganism X XX Cult : No growth (qualifier value) Name Value Range Interpretation Code Description Data Miroslava rce(s) Supporting Document(s) ID Date Data Source [id number] 08/13/2019 09:00:12 AM [facility] Service Cmnt XXX-Imp : LAMicroorganism X XX Cult : No growth (qualifier value) Name Value Range Interpretation Code Description Data Miroslava rce(s) Supporting Document(s) ID Date Data Source [id number] 08/08/2019 07:37:32 PM [facility] Name Value Range Interpretation Code Description Data Miroslava rce(s) Supporting Document(s) Leukocytes [#/volume] in Blood by Automated count 6.3 10*3/uL 4-10 [facility] Erythrocytes [#/volume] in Blood by Automated count 4.09 10*6/uL 4.6- 6.1 L [facility] Hemoglobin [Mass/volume] in Blood 13.1 g/dL 13.5-18 L [facility] Hematocrit [Volume Fraction] of Blood by Automated count 39.4 % 4 1-53 L [facility] Erythrocyte mean corpuscular volume [Entitic volume] by Auto mated count 96.2 fL 80-96 H [facility] Erythrocyte mean corpuscular hemoglobin [Entitic mass] by Automated count 31.9 pg 27-33 [facility] Erythrocyte mean corpuscular hemoglobin concentration [Mass/volume] by Automated count 33.2 g/dL 32.0-36.0 [facility] al Erythrocyte distribution width [Ratio] by Automated count 14.7 % 11.5-14.5 H [facility] Platelets [#/volume] in Blood by Automated count 226 10*3/uL 150-400 [facility] Differential cell count method - Blood [facility] Neutrophils/100 leukocytes in Blood by Automated count 72 % [facility] Lymphocytes/100 leukocytes in Blood by Automated count 14 % [facility] Monocytes/100 leukocytes in Blood by Automated count 12 % [facility] Eosinophils/100 leukocytes in Blood by Automated count 1 % [facility] Basophils/100 leukocytes in Blood by Automated count 1 % [facility] Neutrophils [#/volume] in Blood by Automated count 4.63 10*3/uL 1.8-7 .0 [facility] Lymphocytes [#/volume] in Blood by Automated count 0.87 10*3/uL 1.2-4 .0 L [facility] Monocytes [#/volume] in Blood by Automated count 0.74 10*3/uL 0-0.8 [facility] Eosinophils [#/volume] in Blood by Automated count 0.05 10*3/uL 0-0.5 [facility] Basophils [#/volume] in Blood by Automated count 0.05 10*3/uL 0-0.2 [facility] Nucleated erythrocytes/100 leukocytes [Ratio] in Blood by Automated count 0 /100{WBCs} 0-0 [facility] ID Date Data Source [id number] 08/08/2019 07:44:37 PM EDT [facility] Name Value Range Interpretation Code Description Data Miroslava rce(s) Supporting Document(s) Prothrombin time (PT) 21.0 s 12.5-14.9 H [facility] INR in Platelet poor plasma by Coagulation assay 1.74 [facility] Routine intensity oral anticoagulation I NR is typically 2.0-3.0. Target INR must be clinically individualized. ID Date Data Source [id number] 08/08/2019 07:51:15 PM EDT [facility] Name Value Range Interpretation Code Description Data Miroslava rce(s) Supporting Document(s) Albumin [Mass/volume] in Serum or Plasma by Bromocresol green (BCG) dye binding method 3.8 g/dL 3.5-5.2 [facility] Bilirubin.total [Mass/volume] in Serum or Plasma 1.2 mg/dL <1.2 H [facility] Calcium [Mass/volume] in Serum or Plasma 9.0 mg/dL 8.8-10.2 [facility] Chloride [Moles/volume] in Serum or Plasma 100 mmol/L 98-107 [facility] Creatinine [Mass/volume] in Serum or Plasma 1.24 mg/dL 0.70-1.20 H [facility] Glucose [Mass/volume] in Serum or Plasma 99 mg/dL 70-140 [facility] Alkaline phosphatase [Enzymatic activity/volume] in Serum or Plasma 65 U/L 40-129 [facility] Potassium [Moles/volume] in Serum or Plasma 4.4 mmol/L 3.4-5.1 [facility] Protein [Mass/volume] in Serum or Plasma 7.3 g/dL 6.4-8.3 [facility] Sodium [Moles/volume] in Serum or Plasma 136 mmol/L 136-145 [facility] Aspartate aminotransferase [Enzymatic activity/volume] in Serum or Plasma 21 U/L <40 [facility] Urea nitrogen [Mass/volume] in Serum or Plasma 19 mg/dL 8-23 [facility] Osmolality of Serum or Plasma by calculation 284 mosm/kg 275-300 [facility] Creatinine/Urea nitrogen [Mass Ratio] in Serum or Plasma 15 [facility] Bicarbonate [Moles/volume] in Serum 20 mmol/L 22-29 L [facility] Alanine aminotransferase [Enzymatic activity/volume] in Seru m or Plasma 10 U/L <41 [facility] Anion gap 3 in Serum or Plasma 16 mmol/L 8-15 H [facility] Albumin/Globulin [Mass Ratio] in Serum or Plasma 1.0 [facility] Glomerular filtration rate/1.73 sq M pre dicted among non-blacks [Volume Rate/Area] in Serum or Plasma by Creatinine-based formula (MDRD) 58 mL/min/1.73m2 >60 L [facility] Glomerular filtration rate/1.73 sq M pre dicted among blacks [Volume Rate/Area] in Serum or Plasma by Creatinine-based formula (MDRD) 67 mL/min/1.73m2 >60 [facility] ID Date Data Source [id number] 08/08/2019 07:03:36 PM EDT [facility] US DOPPLER LOWER EXTREMITY UNILATERAL VE NOUS LIMITED [id number] RESULTInterpreted by:Julisa Hearn, MDPROCEDURE INFORMATION: Exam: US Duplex Right Lower Extremity Veins, Limited Exam date and time: 08/08/2019 6:13 PM Age: 69 years old Clinical indication: Other: Concern for dvt TECHNIQUE: Imaging protocol: Real-time Duplex ultrasound of the Right Lower Extremity with 2-D lopez scale, color Doppler flow and spectral waveform analysis with image documentation. Limited exam was focused on the right lower extremity veins. COMPARISON: US Peripherial Venous Testing 12/06/2016 5:15 PM FINDINGS: Very de la cruz ited examination due to soft tissue edema. Areas of vascular flow could not be clearly delineated particularly in the femoral vein which could be due to nonvisualization due to this edema. IMPRESSION: Essentially nondiagnostic exam due to extensive soft tissue edema.THIS DOCUMENT HAS BEEN ELECTRONICALLY SIGNED BY JULISA HEARN MDThis document has been electronically signed by Julisa Hearn MD on 08/08/2019 7:03 PM Name Value Range Interpretation Code Description Data Miroslava rce(s) Supporting Document(s) ID Date Data Source [id number] 08/08/2019 06:14:38 PM EDT [facility] Name Value Range Interpretation Code Description Data Miroslava rce(s) Supporting Document(s) History and Physical [facility] AVBCDb2jLwGELdPx26/UBVmkSLQff2ReNKvxWZf0OSlyQNPfS1EqSOX0tK2qANF4QKaPLvQlJuXcSbAy m [file] ICAgICAgICAgICAgICAgICAgICAgICAgICAgICAgIC AgICAgICAgICAgICAgICAgICAgICAgICAgICAgICAgICAgICANCiAgICAgICAgICAgICAgICAgICAgIC AgICAgICAgICAgICAgICAgICAgICAgICAgICAgICAgICAgICAgICAgICAgICAgICAgICAgICAgICAgIC AgICAgICAgICAgICAgICAgICANCiAgICAgICAgICAg ICAgICAgICAgICAgICAgICAgICAgICAgICAgICAgICAgICAgICAgICAgICAgICAgICAgICAgICAgICAg ICAgICAgICAgICAgICAgICAgICAgICAgICAgICANCiAgICAgICAgICAgICAgICAgICAgICAgICAgICAg ICAgICAgICAgICAgICAgICAgICAgICAgICAgICAgIC AgICAgICAgICAgICAgICAgICAgICAgICAgICAgICAgICAgICAgICANCiAgICAgICAgICAgICAgICAgIC AgICAgICAgICAgICAgICAgICAgICAgICAgICAgICAgICAgICAgICAgICAgICAgICAgICAgICAgICAgIC AgICAgICAgICAgICAgICAgICAgICANCiAgICAgICAg ICAgICAgICAgICAgICAgICAgICAgICAgICAgICAgICAgICAgICAgICAgICAgICAgICAgICAgICAgICAg ICAgICAgICAgICAgICAgICAgICAgICAgICAgICAgICANCiAgICAgICAgICAgICAgICAgICAgICAgICAg ICAgICAgICAgICAgICAgICAgICAgICAgICAgICAgIC AgICAgICAgICAgICAgICAgICAgICAgICAgICAgICAgICAgICAgICAgICANCiAgICAgICAgICAgICAgIC AgICAgICAgICAgICAgICAgICAgICAgICAgICAgICAgICAgICAgICAgICAgICAgICAgICAgICAgICAgIC AgICAgICAgICAgICAgICAgICAgICAgICANCiAgICAg ICAgICAgICAgICAgICAgICAgICAgICAgICAgICAgICAgICAgICAgICAgICAgICAgICAgICAgICAgICAg ICAgICAgICAgICAgICAgICAgICAgICAgICAgICAgICAgICANCiAgICAgICAgICAgICAgICAgICAgICAg ICAgICAgICAgICAgICAgICAgICAgICAgICAgICAgIC AgICAgICAgICAgICAgICAgICAgICAgICAgICAgICAgICAgICAgICAgICAgICANCjw/oBAdL8msjCAhha Z1S8arDk2JTj3KQS0pi9CaXDCwJTnqbbOkNbiOKcSmGJQxXfmDVpc7PXwkBP9VjLRmQ8QyY1DbFGyaBS 7SHTVwAXHuxQQkSNDdGYBhDoH3OBBeFSqoYU8XwDEd YAyaWDDnYONiObImOTFiBKXeDSLlYNRlZBTEZLBqFSFiNlJaXUfnVP5Ci3OrnUH1LIl+Cz9ESQ8py8Pq EAyrFQSpDH5zxo9IKIcMMhOpJ1RremG6SKGeEABhAe5RJWUxEHWjzBZoKOWmSMFQVlOnG2KwqM95IBXY Cj4+WNtunxXmNarDIoHsCPLvv9DvYEu5BP5GOKPnDA s5nIPxDKMRRSN6URJcufWgIMNhIJUnHKunKN2GIkOdNOTnPi1pXv8xARUdGHG9NzA3HAIPLP4GFPGmCO TqwEUdKSRlMGGSCR9FZRjrHFA2UDTiryZueRWcBNhvIW8OLJZengAzFoHeITTZXVx+Ao4ZQA7oj5GqAE ooZpPuYZ8ogs9CKDnJTiIdG9R3sOWfY6Q5CBmuBy5P IGKfQVDlGpzpRRDWTWurWP8XET5wmhS7XQ0GsZKcDGNeCWOrsZWdUPv2X05egVTbVPiiKT7NQLX+Neelam+ Lb8NOZEcMAOwPLNdSqAjEEUBOvXoM0ZqC4ZQn1SbC3IbTD96dStkthHvAYzyFI9JTM4tZVNeFKTLMH6J yDLkrI5auiAqSMIhMETMKeHwM26tbRLfZQXzZVR2BW TjWd9CHDNgS8XphaLibMroanUlAQIeEOMYAD5NDPwwweVccBAljMfjXP67kIwqNL9THl9SWhNyBU5zyj 1VjTBgBu7AFELpTd5WVRAnCLMeLQKhHZQ2DJIcAuPrUSnhAJTxYXAeLOK9WBCkZOHlLK1LDqKaNWJoXr D0VSInLUBpOOCydx3TFNFwQHByGGH7PVLeMVLvHKWw FOcqCEDzVUYgIBQ0FGGhYJZgDM1WPjCwYPCzJEQ1HkEvTFRiRHFdms6DZBQaNPBeYYEaNGLfBPZjQYZi ROrhMEWfXCL4YTRuCSZvWMOwLW9FEjJwERAkLQz9KsFsSLNvVTAcmb2RIWZzVGBnAKPbHqNtEEDyZZUn GEtfGRFxZRBrEMDpSKBqVHKtJM3YWxVdXFPiTSJ4KI TkESWjQHEjhc3XBTRbLCTiAKB1OLAsATPfZXCzZMljXULvCTZ6LUSwBAMkBNKsNQ3SPoZoEWBeNXbiMw TgARRuONUbxj2YCWPjUQBdWUR3EgDkQPDxIZSsVEnaTOCmWVU5DTrbMXKfUHXjEK5ZMwYyLZLrDHp4Cf GpPQXwZWKqim7CUGRaZPNzYLFgZYByLTWeMSTbGCis SKOnXMD6GBY1TGWoBRAdZO2WJoTeGPIyOeOuExRsSHOyMSZfxh1XPBOqAEKpSHMfBWFtJDBxLNWvKKja JBFqWWEfIlQ2ICBxGKBmJJ8CPnDxIYCsWlG4PdirGFHlDWUmqj4FNURnGMCfPwB3TfJmAYTbJMYrGMxv VWIwCLNfIgTsUUKmFHJsRG0EUbIpALDoOnQcRyFbCQ MqFHHkht1XSQNvDFQvPwP6XGYhBOKmCLHoICazIHPxVZGwKxWhUJNmHMScBQ5QZuEuCNSkGxVyFJrmNP GvKBQzqg7FXVOpWTJkWRKeFfPmFDOqLYDmOIdgSUGnVBI0XVg3WUQeICVmBA9IXkKqBSHiYvH4HhXtEO QaXIFiom5VlZGpgHniql8HLAmTJu6WqIvkASYnEXjs Zg5bwFMyGjMaFZLCOp7GlbOoUBJvEMTTZZjdGOObPRK7KBktTVvvBLIgYCJdInffF0KwGjI4UXf0YuHm ZSyzLlR4OzinNLV3OpT8ALW3N3RlIXHaTNRdWgIfDWmtTOV2RMB+GN1uYAk+Sb5Xi3ZflpL5dnEaTSek RBo7Tr8MSNVYJ7EXUq== ID Date Data Source [id number] 08/13/2019 01:07:00 PM EDT [facility] [id number] Name Value Range Interpretation Code Description Data Miroslava rce(s) Supporting Document(s) Bacteria identified in Blood by Culture [facility] NO GROWTH AFTER 5 DAYS ID Date Data Source [id number] 08/14/2019 08:07:00 AM EDT [facility] Name Value Range Interpretation Code Description Data Miroslava rce(s) Supporting Document(s) CULTURE BLOOD [facility] _CULTURE BLOOD_ TEST [place] [address] CLIA# [id number] SEE SCANNED REPORT{ PRELIM ID Date Data Source [id number] 08/08/2019 09:44:00 AM EDT [facility] Name Value Range Interpretation Code Description Data Miroslava rce(s) Supporting Document(s) CBC W/AUTOMATED DIFF [facility] COMPLETE BLOOD COUNT Leukocytes [#/volume] in Blood by Automated count 7.1 10^3/uL 4.2 - 1 1.0 [facility] Erythrocytes [#/volume] in Blood by Automated count 4.18 10^6/uL 4. 50 - 6.30 L [facility] Hemoglobin [Mass/volume] in Blood 12.9 g/dL 14.0 - 16.0 L [facility] Hematocrit [Volume Fraction] of Blood by Automated count 40.5 % 4 1.0 - 51.0 L [facility] Erythrocyte mean corpuscular volume [Entitic volume] by Auto mated count 96.9 fL 80.0 - 94.0 H [facility] Erythrocyte mean corpuscular hemoglobin [Entitic mass] by Automated count 30.9 pg 27.0 - 34.0 [facility] Erythrocyte mean corpuscular hemoglobin concentration [Mass/volume] by Automated count 31.9 g/dL 31.0 - 36.0 [facility] Erythrocyte distribution width [Ratio] by Automated count 13.5 % 11.5 - 14.8 [facility] Platelets [#/volume] in Blood by Automated count 222 10^3/uL 150 - 45 0 [facility] Platelet mean volume [Entitic volume] in Blood by Automated count 10.3 fL 7.4 - 10.4 [facility] Neutrophils/100 leukocytes in Blood by Automated count 68.3 % 37. 0 - 80.0 [facility] Lymphocytes/100 leukocytes in Blood by Manual count 19.3 % 25.0 - 40.0 L [facility] Monocytes/100 leukocytes in Blood by Automated count 8.7 % 3.0 - 8.0 H [facility] Eosinophils/100 leukocytes in Blood by Automated count 2.7 % 0.0 - 7.0 [facility] Basophils/100 leukocytes in Blood by Automated count 0.7 % 0.0 - 2.0 [facility] %IG 0.3 % 0.0 - 0.0 [facility] 0.0 % 0.0 - 0.0 [facility] al Neutrophils [#/volume] in Blood by Automated count 4.88 10^3/uL 2.00 - 6.90 [facility] Lymphocytes [#/volume] in Blood by Automated count 1.38 10^3/uL 0.60 - 3.40 [facility] Monocytes [#/volume] in Blood by Automated count 0.62 10^3/uL 0.00 - 0.90 [facility] Eosinophils [#/volume] in Blood by Automated count 0.19 10^3/uL 0.00 - 0.70 [facility] Basophils [#/volume] in Blood by Automated count 0.05 10^3/uL 0.00 - 0.20 [facility] #IG 0.02 10^3/uL 0.00 - 0.10 [facility] #NRBC 0.00 10^3/uL 0.00 - 0.00 [facility] MANUAL DIFF NOT INDICATED [facility] RBC MORPH NOT INDICATED [facility] spital ID Date Data Source [id number] 08/14/2019 08:07:00 AM EDT [facility] Name Value Range Interpretation Code Description Data Miroslava rce(s) Supporting Document(s) CULTURE BLOOD [facility] spital _CULTURE BLOOD_ TEST [place] [address] CLIA# [id number] SEE SCANNED REPORT{ PRELIM ID Date Data Source [id number] 08/08/2019 09:25:00 AM EDT [facility] Name Value Range Interpretation Code Description Data Miroslava rce(s) Supporting Document(s) TROPONIN T 0.01 NG/ML 0.00 - 0.10 [facility] TROPONIN T0.1 ng/ml Recommended as the c linical threshold value forTroponin T. ID Date Data Source [id number] 08/08/2019 09:21:00 AM EDT [facility] Name Value Range Interpretation Code Description Data Miroslava rce(s) Supporting Document(s) COMPREHENSIVE METABOLIC PANEL [facility] COMPREHENSIVE METABOLIC PANEL Sodium [Moles/volume] in Serum or Plasma 136 mEq/L 134 - 153 [facility] Potassium [Moles/volume] in Serum or Plasma 4.7 mEq/L 3.6 - 5.0 [facility] Chloride [Moles/volume] in Serum or Plasma 101 mEq/L 98 - 107 [facility] Carbon dioxide, total [Moles/volume] in Serum or Plasma 23 MEQ/L 22 - 30 [facility] Glucose [Mass/volume] in Serum or Plasma 95 MG/DL 65 - 110 [facility] BUN 19 MG/DL 7 - 21 [facility] Creatinine [Mass/volume] in Serum or Plasma 1.2 MG/DL 0.7 - 1.5 [facility] BUN/CREAT 16 8 - 27 [facility] Protein [Mass/volume] in Serum or Plasma 8.1 G/DL 6.3 - 8.2 [facility] Albumin [Mass/volume] in Serum or Plasma 3.9 G/DL 3.9 - 5.0 [facility] Globulin [Mass/volume] in Serum by calculation 4.2 GM/DL 2.4 - 3.2 H [facility] A/G RATIO 0.9 0.8 - 2.0 [facility] Calcium [Mass/volume] in Serum or Plasma 9.8 MG/DL 8.4 - 10.2 [facility] Bilirubin.total [Mass/volume] in Serum or Plasma 1.0 MG/DL 0.2 - 1.3 [facility] Alkaline phosphatase [Enzymatic activity/volume] in Serum or Plasma 73 U/L 38 - 126 [facility] Aspartate aminotransferase [Enzymatic activity/volume] in Serum or Plasma 26 U/L 5 - 40 [facility] Alanine aminotransferase [Enzymatic activity/volume] in Seru m or Plasma 11 U/L 7 - 56 [facility] Anion gap 3 in Serum or Plasma 12.0 mmol/L 8.0 - 16.0 [facility] AGE 69 yrs [facility] NON-AA GFR >60 mL/min [facility] ital AFR AMER GFR >60 mL/min [facility] Male GFR In terprentation 20-49 yrs >60 mL/min Normal 50-59 yrs >56 mL/min Normal 60-69 yrs >49 mL/min Normal 70-79yrs >42 mL/min Normal 80 and above >35 mL/min Normal Female GFR Interpretation 20-39 yrs >60 mL/min Normal 40-49 yrs >58 mL/min Normal 50-59 yrs >51 mL/min Normal 60-69 yrs >45 mL/min Normal 70-79 yrs >39 mL/min Normal 80 and above >32 mL/min Normal ID Date Data Source [id number] 08/12/2019 09:52:00 AM EDT [facility] [id number] FOOT@08/12/19 0953: Aerobic I D Emily added. RFLXG = CHGAERID.FEW CORYNEBACTERIUM SP. ISOLATED PROBABLE NORMAL SKIN FLORANO SENSITIVITIES DONEFEW STAPH SPP. COAGULASE NEGATIVE PROBABLE NORMAL SKIN FLORANO SENSITIVITIES DONEACINETOBACTER BAUMANNII/[facility]EMOL Name Value Range Interpretation Code Description Data Miroslava rce(s) Supporting Document(s) Quantiy of growth Few [facility] ID Date Data Source [id number] 08/12/2019 09:52:00 AM EDT [facility] [id number] FOOT@08/12/19 0953: Aerobic I D Emily added. RFLXG = CHGAERID.FEW CORYNEBACTERIUM SP. ISOLATED PROBABLE NORMAL SKIN FLORANO SENSITIVITIES DONEFEW STAPH SPP. COAGULASE NEGATIVE PROBABLE NORMAL SKIN FLORANO SENSITIVITIES DONEACINETOBACTER BAUMANNII/HAEMOL Name Value Range Interpretation Code Description Data Miroslava rce(s) Supporting Document(s) TRIMETHOPRIM/SULFAMETHOXAZOLE <2/38 [facility] sceptible. Indicates for microbiology susceptibilities only. [facility] Ampicillin+Sulbactam [Susceptibility] by Minimum inhib itory concentration (RAJENDRA) <8/4 Susceptible. Indicates for microbiology suscepti bilities only. [facility] Cefotaxime [Susceptibility] by Minimum inhibitory concentration (RAJENDRA) 8 Susceptible. Indicates for microbiology susceptibilities only. [facility] Ceftriaxone [Susceptibility] by Minimum inhibitory concentration (RAJENDRA) 8 Susceptible. Indicates for microbiology susceptibilities only. [facility] Ciprofloxacin [Susceptibility] by Minimum inhibitory concentrati on (RAJENDRA) 2 Intermediate. Indicates for microbiology susceptibilities only. [facility] Gentamicin [Susceptibility] by Minimum inhibitory concentration (RAJENDRA) 8 Intermediate. Indicates for microbiology susceptibilities only. [facility] Tetracycline [Susceptibility] by Minimum inhibitory concentratio n (RAJENDRA) 8 Intermediate. Indicates for microbiology susceptibilities only. [facility] Tobramycin [Susceptibility] by Minimum inhibitory concentration (RAJENDRA) 8 Intermediate. Indicates for microbiology susceptibilities only. [facility] Levofloxacin [Susceptibility] by Minimum inhibitory concentratio n (RAJENDRA) <2 Susceptible. Indicates for microbiology susceptibilities only. [facility] Cefepime [Susceptibility] by Minimum inhibitory concentration (M IC) >16 Resistant. Indicates for microbiology susceptibilities only. [facility] ID Date Data Source [id number] 08/12/2019 03:06:00 PM EDT [facility] Name Value Range Interpretation Code Description Data Mirsolava rce(s) Supporting Document(s) CULTURE WOUND [facility] .WOUND CULTURE_{ SPECIMEN MIROSLAVA RCE : RIGHT FOOT Result: [place] [address] CLIA# [id number] SEE SCANNED REPORT ID Date Data Source [id number] 07/15/2019 08:29:00 [place] [address] DISCHARGE SUMMARYNAME: LOUISE James ROOM#: [id number] OF : 1950 MR#: [id number] PHYS: Neymar Hilario MD, PC DATE: 07/09/19 DISCHARGED: 07/12/19REASON FOR ADMISSION:This 69-year-old white male presented with dyspnea, wound in the right leg, cellulitis in the right leg and leftleg.HISTORY OF PRESENT ILLNESS:This patient presented with cellulitis in both legs, but it is more in the right leg. CT scan also showed multiplepulmonary emboli in the left lung. Patient has been taking Xarelto 15 mg b.i.d., but he was not sure. Patienthad a stroke and he is not sure what medication he takes. He has chronic cellulitis of both legs and a wound onthe ri ght leg. He has known history of previous stroke and atrial fibrillation. On examination, blood pressure is130/83. Head is normal. Heart rate is atrial fibrillation. Lungs are clear. Abdomen is soft. Patient has a woundon the right leg and cellulitis in both legs.LABORATORY & X-RAY DATA:Lab tests with CT scan of the chest did show 3 emboli in his left lower lobe. Hemoglobin A1C is 6.3.White count is 5.8. LDL is 120. Magnesium is 2.1. Sodium is 142, potassium is 4.4, BUN is 29,creatinine is 1.3. MIGUEL is negative. Blood culture is negative. Wound culture did grow Serratia andKlebsiella.HOSPITAL COURSE:The patient was treated with Unasyn 1 gram q 8 hourly IV. Patient had an IVC filter. It was notdocumented on previous notes. We had difficulty locating as to where the IVC filter was inserted. Isent him to [place] x-ray for IVC filter evaluation and they thought the patient had an IVC filter, sohe was sent back. He was maintained on Xarelto 15 mg b.i.d. Normal saline was given at 250 cc/hourfor low blood pressure of 90 and he improved. Ultrasound of the leg did show nonocclusive thrombusin both common femoral veins on both sides and superficial vein on the ultrasound. A wound culturecame back on the which showed Klebsiella and Serratia from the wound on the right leg sensitiveto sulfa. The Klebsiella was sensitive to Unasyn. It was decided to start the patient on Levaquin 500mg daily. He did not want to stay any longer. He was given Lasix 40 mg IV for edema in the legs. Hesigned out against medical advice.FINAL DIAGNOSES:1. 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 Pulmonary embolus of the left lower lobe.3. IVC filter.4. History of stroke.5. History of wound in the right leg growing Klebsiella and Serratia.6. History of hypertension.7. History of atrial fibrillation. [address] [place] [id number] DISCHARGE SUMMARYNAME: LOUISE James ROOM#: [id number] OF : 1950 MR#: [id number] PHYS: Neymar Hilario MD, DATE: 07/09/19 DISCHARGED: 07/12/19 8. History of anemia. 9. History of atrial fibrillation.FOLLOW UP:He will see Dr. Radford in one week.DD: Neymar Hilario MD, 07/12/19 09:41DT: DMZ 07/15/19 08:16DS: Neymar Hilario MD, PC 07/25/19 12:14 2 Name Value Range Interpretation Code Description Data Miroslava rce(s) Supporting Document(s) ID Date Data Source [id number] 07/12/2019 01:14:00 PM [facility] [address] [place] [address] PHONE: [phone] FAX: [phone] Name .................. : LOUISE James Acct Number.................. : [id number] ROOM. ................. : 104-1 MR Number ................... : [id number] Stay type ............. : I/P Discharge Date......... ... : Admit Date ......... : 07/09/19 Admit Phys .................... : CAPRICE FITZPATRICK Date of ....... : 1950 Family Phys ................... : NO PCP Phone .................. : [phone] Age ................................ : 69 Film# .................. .:[id number] Sex ................................. : M Unsigned transcriptions are preliminary reports and do not represent a medical or legal document ABDOMEN MULTIPLE VIEW [id number] COMPLETE:07/11/19 19:02 KBO 20575 (REASON FOR ABDOMEN: IVC FILTER TODAY MULTIPLE VIEW A BDOMINAL SERIES: FINDINGS: There is marked elevation of the right hemidiaphragm. The lungs are clear. The cardiac silhouette is slightly obscured. There is evidence of prior cardiac surgery. A IVC filter is noted at the level of L2-3. One of the secondary struts appears to be extra-caval. A large amount of stool is noted in the colon. No obstruction is visualized. No acute osseous abnormality. IMPRESSION: 1. IVC filter has a secondary strut that is extra-caval. 2. A large amount of stool. 3. No CHF. Electronically Reviewed and Signed By Isaiah Almodovar M.D. , 07/12/19 13:14, [place] Transcribe Initials: DZ , Transcribe Date: 07/12/19 05:59, Dictation Date: Copy for: 002 [facility] Copy for: 710 [facility] Page 1 of 1 Name Value Range Interpretation Code Description Data Miroslava rce(s) Supporting Document(s) ID Date Data Source [id number] 07/12/2019 01:14:00 PM [facility] [address] [place] [address] PHONE: [phone] FAX: [phone] Name .................. : LOUISE ROBERTO James Acct Number.................. : [id number] ROOM. ................. : 104-1 MR Number ................... : [id number] Stay type ............. : I/P Discharge Date......... ... : Admit Date ......... : 07/09/19 Admit Phys .................... : CAPRICE AMARI Date of ....... : 1950 Family Phys ................... : NO PCP Phone .................. : [phone] Age ................................ : 69 Film# .................. .:[id number] Sex ................................. : M Unsigned transcriptions are preliminary reports and do not represent a medical or legal document CHEST 2 VIEWS 73517 COMPLETE:07/11/19 19:02 KBO 10895 (REASON FOR CHEST: CHF CHEST X- RAY: 2-VIEWS INDICATION: CHF. FINDINGS/IMPRESSION: A single lateral view is obtained. There is no evidence of acute fracture or dislocation. There is evidence of prior cardiac surgery. No definite focal infiltrate is visualized. Evaluation for CHF is difficult, but there does appear to be significant pulmonary edema. Recommend further evaluation with frontal view of the chest. Electronically Reviewed and Signed By Isaiah Almodovar M.D. , 07/12/19 13:14, [place] Transcribe Initials: DANE , Transcribe Date: 07/12/19 05:56, Dictation Date: Copy for: 002 [facility] Copy for: 710 [facility] Page 1 of 1 Name Value Range Interpretation Code Description Data Miroslava rce(s) Supporting Document(s) ID Date Data Source [id number] 07/11/2019 03:34:00 [place] [address] RESPIRATORY CARE REPORT ==== ---------NAME------- NUMBER SEX AGE ADMIT DISC. XRAY# F/C TYPENECASTER ROBERTO James [id number] M 69 07/09/19 519670 M4 I/P DATE OF : 1950 M/R# [id number] PH#: [phone] 104-1 LOCATION: EMERGENCY DEPT EKG 34029 COMP LETE:07/11/19 08:03 CW 24490 PHYSICIAN: CAPRICE FITZPATRICK Name Value Range Interpretation Code Description Data Miroslava rce(s) Supporting Document(s) ID Date Data Source [id number] 07/11/2019 12:38:00 [place] [address] PROGRESS NOTENAME: LOUISE James ROOM#: 104-1DATE OF : 1950 MR#: [id number] DATE: 07/09/19 OF SERVICE: 07/11/2019SUBJECTIVE:The patient presented with tiredness, fatigue, pain in the right leg area and swelling of the leg. ROS:No chills or fever. No cough or hemoptysis. No bowel disturbance. No ankle edema.OBJECTIVE:On exam, moderately built. Blood pressure was 130/80. Head is normal. Heart is regular sinus rhythm.Lungs clear. Abdomen soft. There is a large wound on the right leg, edema in leg.LABORATORY DATA:Lab tests showed sodium 144, potassium 4.4, BUN 29, creatinine 1.3, hemoglobin 13.2.ASSESSMENT: Patient has the following issues:1. Edema leg.PLAN:We will give Lasix 40 mg IV daily for the edema leg. Another CAT scan of the chest will be obtainedfor PE. Also, do flat plate of abdomen to see if he had the IVC filter. Old record does not show anyevidence of IVC filter. Patient cannot interpret for himself because of stroke.DD: Neymar Hilario MD, PC 07/11/19 09:31DT: SSR 07/11/19 12:38DS: Neymar Hilario MD, PC 07/11/19 14:34 1 Name Value Range Interpretation Code Description Data Miroslava rce(s) Supporting Document(s) ID Date Data Source [id number] 07/10/2019 06:17:00 [place] [address] PROGRESS NOTENAME: LOUISE James ROOM#: 104-1DATE OF : 1950 MR#: [id number] DATE: 07/09/19 OF SERVICE: 07/10/19UBJECTIVE: This patient was sent to [facility] for insertion of an IVC filter. When he wentthere, the flat plate of the abdomen showed that he already had a filter inserted a few years ago, so he was sentback. A CT scan done here of his abdomen in the emergency room did not show any mention of any IVCfilter. We will go ahead with a dedicated CT scan of the abdomen and pelvis to see if the IVC filter is still inthe IVC. Patient is improved quite a bit. The dyspnea is better. He is doing well with Xarelto 15 mg b.i.d. p.o.DD: Neymar Hilario MD, PC 07/10/19 17:11DT: DMZ 07/10/19 18:08DS: Neymar Hilario MD, PC 07/11/19 14:34 1 Name Value Range Interpretation Code Description Data Miroslava rce(s) Supporting Document(s) ID Date Data Source [id number] 07/10/2019 09:00:00 [place] [address] PROGRESS NOTENAME: LOUISE James ROOM#: 104-1DATE OF : 1950 MR#: [id number] DATE: 07/09/19 OF SERVICE: 07/10/2019SUBJECTIVE:This is a 69-year-old white male with blood clots in his femoral vein in both sides and he came withpulmonary emboli in the left lower lobe. Patient today does not look dyspneic, but he is taking Vjkqhix52 mg bid for the last few months. ROS: He denies any chest pain. His dyspnea is much better thanyesterday. Does not notice any orthopnea, paroxysmal nocturnal dyspnea. No chills or fever. No coughor hemoptysis. No bowel disturbance. No urinary problem. No ankle edema.OBJECTIVE:On exam, moderately built. Blood pr essure was 90/60. Head is normal. Heart is regular sinus rhythm.Lungs clear. Abdomen soft.ASSESSMENT: Patient has the following issues:1. CAT scan of the lung does show pulmonary emboli left lower lobe.2. Blood clots in both of the femoral veins.PLAN:This patient will be a candidate for IVC filter since he has blood clots in the superficial femoral veinsin both the legs. Blood pressure 90 systolic, 250 IV saline boluses have been given. I spoke with , the interventional radiologist in [facility] [place]. Patient will be transferred there for IVC filter, andpatient will be brought back to [facility] after the IVC filter is inserted.DD: Neymar Hilario MD, 07/10/19 08:43DT: SSR 07/10/19 09:00DS: Neymar Hilario MD, PC 07/11/19 14:34 1 Name Value Range Interpretation Code Description Data Miroslava rce(s) Supporting Document(s) ID Date Data Source [id number] 07/10/2019 08:57:00 [place] [address] HISTORY AND PHYSICALNAME: LOUISE James ROOM#: 104-1DATE OF : 1950 MR#: [id number] PHYS: Neymar Hilario MD, PC DATE: 07/09/19DATE OF SERVICE: 07/09/2019CHIEF COMPLAINT:This is a 69-year-old white male presented with dyspnea and wound in the right leg, cellulitis in the right legand left leg.HISTORY OF PRESENT ILLNESS:Patient has been short of breath at home. He has history of DVT, is on Xarelto 15 mg bid. He has chroniccellulitis of both the legs, right more than left, and he has a wound the size of a quarter on the right anterior legwith associated swelling around it. Patient complains that at times the dyspnea gets worse. The CAT scan ofthe chest did show possible pulmonary emboli.MEDICATIONS:The patient takes Xarelto 15 mg bid, quetiapine 25 mg at bedtime, pramipexole 1 mg daily, Prilosec 20 mgdaily, Lipitor 80 mg daily, baclofen 10 mg bid, Coreg 3.125 mg bid, Celexa 20 mg daily, gabapentin 300 mgtid, Lasix 20 mg daily, Keppra 750 mg bid, melatonin 3 mg at bedtime for sleep.ALLERGIES:DEPAKOTE, PAXIL, SIMVASTATIN, WELLBUTRIN.REVIEW OF SYSTEMS:The patient denies any chest pain. There are no chills or fever. No cough or hemoptysis. No boweldisturbance. No urinary problem. No ankle edema. He has pain in the right leg.PAST MEDICAL HISTORY:The patient has known history of hypertension, habit to fall, history of deep vein thrombosis of both sides,history of atrial fibrillation, history of CVA.PERSONAL HISTORY:Nonsmoker.FAMILY HISTORY: Father and mother had heart disease.PHYSICAL EXAM:GENERAL: Moderately built.VITAL SIGNS: Blood pressure is 120/80, pulse is 100, temperature 98, respirations 18, oxygensaturation 99%.HEENT: Head and eyes normal. Fundi show grade 2 changes. Mouth normal. Tongue dry. [address] [place] [address] HISTORY AND PHYSICALNAME: LOUISE James ROOM#: 104-1DATE OF : 1950 MR#: [id number] PHYS: Neymar Hilario MD, PC DATE: 07/09/19NECK: Supple. No lymphadenopathy. Thyroid not enlarged. Neck veins are not distended. No carotidbruits.CHEST: Symmetrical.HEART: Rate is 70, atrial fibrillation. No murmur or gallop.LUNGS: Wheezing with prolonged expiration. Scattered rhonchi in the lungs.ABDOMEN: Soft. Nontender. No visceromegaly.EXTREMTIES: There is 3+ pitting in both legs. He has cellulitis in the front of the left leg. Also,cellulitis in the front of the right leg with a wound seen on the right leg, size of a quarter. Peripheralpulses palpable.NEUROLOGICAL: Patient has numbness and pain to the distal toes.LABORATORY DATA:Lab tests showed that the hemoglobin is 13.6, white count 5.6, sodium 141, potassium 4.1, BUN 21,creatinine 1.3. CAT scan of the chest did show possible multiple pulmonary emboli in both of thelungs.IMPRESSION:1. Multiple pulmonary emboli both lungs.2. Cellulitis in the wound right leg.3. Cellulitis left leg.4. History of deep venous thrombosis both the superficial femoral veins on both sides.5. History of hypertension.6. History of stroke.7. History of atrial fibrillation.8. History of anemia.9. History of hyperlipidemia.PLAN:Patient will be given IV antibiotics for the wound and cellulitis of both the legs. Will continue Zigysze18 mg bid. Will load him for possible IVC filter. We will do a coagulation work up also, protein C,protein S, antiphospholipid antibody. Patient will have nebulizer treatment also with DuoNeb.DD: Neymar Hilario MD, PC 07/09/19 15:40DT: SSR 07/10/19 08:49DS: Neymar Hilario MD, PC 07/11/19 14:34 2 [place] [address] HISTORY AND PHYSICALNAME: LOUISE James ROOM#: 104-1DATE OF : 1950 MR#: [id number] PHYS: Neymar Hilario MD, PC DATE: 07/09/19 3 Name Value Range Interpretation Code Description Data Miroslava rce(s) Supporting Document(s) ID Date Data Source [id number] 07/11/2019 10:16:00 [place] [address] PHONE: [phone] FAX: [phone] Name .................. : LOUISE James Acct Number.................. : [id number] ROOM. ................. : 104-1 MR Number ................... : [id number] Stay type ............. : I/P Discharge Date......... ... : Admit Date ......... : 07/09/19 Admit Phys .................... : CAPRICE AMARI Date of ....... : 1950 Family Phys ................... : NO PCP Phone .................. : [phone] Age ................................ : 69 Film# .................. .:[id number] Sex ................................. : M Unsigned transcriptions are preliminary reports and do not represent a medical or legal document DOPPLER VENOUS BILAT LEG 18813 COMPLETE:07/09/19 13:14 [facility] [address] Reason(s): DVT VENOUS DOPPLER ULTRASOUND BILATERAL LEGS: HISTORY: Question DVT. FINDINGS: There is nonocclusive thrombus involving the common femoral veins to the popliteal veins bilaterally. The findings in the left leg were similar to a prior study of 12/26/18. No Cuevas's cysts are noted. No edema is identified. IMPRESSION: Nonocclusive thrombus involving both common femoral veins extending to the popliteal veins. The findings in the left lower extremity are similar to what was present on the examination from 12/26/18. Electronically Reviewed and Signed By Giuliano Wolfe MD , 07/11/19 10:16, [facility] Transcribe Initials: DZ , Transcribe Date: 07/10/19 20:34, Dictation Date: Copy for: 002 [facility] Copy for: 710 [facility] Page 1 of 1 Name Value Range Interpretation Code Description Data Miroslava rce(s) Supporting Document(s) ID Date Data Source [id number] 07/11/2019 09:10:00 AM [facility] [address] [place] [address] RESPIRATORY CARE REPORT ==== ---------NAME------- NUMBER SEX AGE ADMIT DISC. XRAY# F/C TYPENECASTER ROBERTO James [id number] M 69 07/09/19 994832 M4 I/P DATE OF : 1950 M/R# [id number] #: [id number] 104-1 LOCATION: EMERGENCY DEPT EKG 03411 COMP LETE:07/10/19 11:23 [place] [address] PHYSICIAN: CAPRICE FITZPATRICK Name Value Range Interpretation Code Description Data Miroslava rce(s) Supporting Document(s) ID Date Data Source [id number] 07/11/2019 09:05:[address] [address] RESPIRATORY CARE REPORT ==== ---------NAME------- NUMBER SEX AGE ADMIT DISC. XRAY# F/C TYPELOUISE James [id number] M 69 07/09/19 643577 M4 I/P DATE OF : 1950 M/R# [id number] #: [id number] 104-1 LOCATION: EMERGENCY DEPT [facility] [address] COMP LETE:07/10/19 06:56 [place] [address] PHYSICIAN: CAPRICE CASTRO RYAN Name Value Range Interpretation Code Description Data Miroslava rce(s) Supporting Document(s) ID Date Data Source [id number] 07/11/2019 07:26:00 AM EST [facility] Name Value Range Interpretation Code Description Data Miroslava rce(s) Supporting Document(s) COMPREHENSIVE METABOLIC PANEL [facility] COMPREHENSIVE METABOLIC PANEL Sodium [Moles/volume] in Serum or Plasma 144 mEq/L 134 - 153 [facility] Potassium [Moles/volume] in Serum or Plasma 4.4 mEq/L 3.6 - 5.0 [facility] Chloride [Moles/volume] in Serum or Plasma 108 mEq/L 98 - 107 H [facility] Carbon dioxide, total [Moles/volume] in Serum or Plasma 25 MEQ/L 22 - 30 [facility] Glucose [Mass/volume] in Serum or Plasma 114 MG/DL 65 - 110 H [facility] BUN 29 MG/DL 7 - 21 [facility] Creatinine [Mass/volume] in Serum or Plasma 1.3 MG/DL 0.7 - 1.5 [facility] BUN/CREAT 22 8 - 27 [facility] al Protein [Mass/volume] in Serum or Plasma 6.6 G/DL 6.3 - 8.2 [facility] Albumin [Mass/volume] in Serum or Plasma 3.9 G/DL 3.9 - 5.0 [facility] Globulin [Mass/volume] in Serum by calculation 2.7 GM/DL 2.4 - 3.2 [facility] A/G RATIO 1.4 0.8 - 2.0 [facility] Calcium [Mass/volume] in Serum or Plasma 9.1 MG/DL 8.4 - 10.2 [facility] Bilirubin.total [Mass/volume] in Serum or Plasma <0.7 MG/DL 0.2 - 1.3 [facility] Alkaline phosphatase [Enzymatic activity/volume] in Serum or Plasma 51 U/L 38 - 126 [facility] Aspartate aminotransferase [Enzymatic activity/volume] in Serum or Plasma 13 U/L 5 - 40 [facility] Alanine aminotransferase [Enzymatic activity/volume] in Seru m or Plasma 8 U/L 7 - 56 [facility] Anion gap 3 in Serum or Plasma 11.0 mmol/L 8.0 - 16.0 [facility]GE 69 [facility] 58 mL/min [facility] AFR AMER GFR >60 mL/min [facility] Ho spital Male GFR In terprentation 20-49 yrs >60 mL/min Normal 50-59 yrs >56 mL/min Normal 60-69 yrs >49 mL/min Normal 70-79yrs >42 mL/min Normal 80 and above >35 mL/min Normal Female GFR Interpretation 20-39 yrs >60 mL/min Normal 40-49 yrs >58 mL/min Normal 50-59 yrs >51 mL/min Normal 60-69 yrs >45 mL/min Normal 70-79 yrs >39 mL/min Normal 80 and above >32 mL/min Normal ID Date Data Source [id number] 07/11/2019 07:23:00 AM EST [facility] Name Value Range Interpretation Code Description Data Miroslava rce(s) Supporting Document(s) CBC W/AUTOMATED DIFF [facility] COMPLETE BLOOD COUNT Leukocytes [#/volume] in Blood by Automated count 8.6 10^3/uL 4.2 - 1 1.0 [facility] Erythrocytes [#/volume] in Blood by Automated count 4.24 10^6/uL 4. 50 - 6.30 L [facility] Hemoglobin [Mass/volume] in Blood 13.2 g/dL 14.0 - 16.0 L [facility] Hematocrit [Volume Fraction] of Blood by Automated count 41.6 % 4 1.0 - 51.0 [facility] Erythrocyte mean corpuscular volume [Entitic volume] by Auto mated count 98.1 fL 80.0 - 94.0 H [facility] Erythrocyte mean corpuscular hemoglobin [Entitic mass] by Automated count 31.1 pg 27.0 - 34.0 [facility] Erythrocyte mean corpuscular hemoglobin concentration [Mass/volume] by Automated count 31.7 g/dL 31.0 - 36.0 [facility] Erythrocyte distribution width [Ratio] by Automated count 13.8 % 11.5 - 14.8 [facility] Platelets [#/volume] in Blood by Automated count 194 10^3/uL 150 - 45 0 [facility] Platelet mean volume [Entitic volume] in Blood by Automated count 10.6 fL 7.4 - 10.4 H [facility] Neutrophils/100 leukocytes in Blood by Automated count 55.4 % 37. 0 - 80.0 [facility] Lymphocytes/100 leukocytes in Blood by Manual count 33.6 % 25.0 - 40.0 [facility] Monocytes/100 leukocytes in Blood by Automated count 6.1 % 3.0 - 8.0 [facility] Eosinophils/100 leukocytes in Blood by Automated count 3.7 % 0.0 - 7.0 [facility] Basophils/100 leukocytes in Blood by Automated count 0.8 % 0.0 - 2.0 [facility] %IG 0.4 % 0.0 - 0.0 [facility] %NRBC 0.0 % 0.0 - 0.0 [facility] al Neutrophils [#/volume] in Blood by Automated count 4.75 10^3/uL 2.00 - 6.90 [facility] Lymphocytes [#/volume] in Blood by Automated count 2.88 10^3/uL 0.60 - 3.40 [facility] Monocytes [#/volume] in Blood by Automated count 0.52 10^3/uL 0.00 - 0.90 [facility] Eosinophils [#/volume] in Blood by Automated count 0.32 10^3/uL 0.00 - 0.70 [facility] Basophils [#/volume] in Blood by Automated count 0.07 10^3/uL 0.00 - 0.20 [facility] #IG 0.03 10^3/uL 0.00 - 0.10 [facility] ospital #NRBC 0.00 10^3/uL 0.00 - 0.00 [facility] H ospital MANUAL DIFF NOT INDICATED [facility] RBC MORPH NOT INDICATED [facility] spital ID Date Data Source [id number] 07/10/2019 12:26:00 PM EST [facility] [address] [facility] [place] [place] [address] PHONE: [phone] FAX: [phone] Name .................. : LOUISE James Acct Number.................. : [id number] ROOM. ................. : 104-1 MR Number ................... : [id number] Stay type ............. : I/P Discharge Date......... ... : Admit Date ......... : 07/09/19 Admit Phys .................... : CAPRICE AMARI Date of ....... : 1950 Family Phys ................... : NO PCP Phone .................. : [phone] Age ................................ : 69 Film# .................. .:[id number] Sex ................................. : M Unsigned transcriptions are preliminary reports and do not represent a medical or legal document CT CTA CHEST NON-CORONARY Joseph Person 84705 COMPLETE:07/09/19 16:54 KAH 70134 Reason(s): acute dyspnea, hx DVT, please r/o PE CTA OF THE CHEST WITH CONTRAST: HISTORY: Acute dyspnea. History of DVT. FINDINGS: There are filling defects in several left lower lobe pulmonary arteries suggesting pulmonary emboli. The examination is somewhat suboptimal because of respiration. There is a mosaic pattern of ventilation in both lower lobes and lingula, which is nonspecific but suggestive of air trapping. There are linear areas of atelectasis in the right upper lobe, right middle lobe and right lower lobe. The heart is at upper limits of normal in size. IMPRESSION: Filling defects in several left lower lobe pulmonary vessels raising the possibility of pulmonary emboli. The examination is however, suboptimal because of patient respiration. Mosaic pattern of ventilation in both lower lobes and lingula is suggestive of air trapping. Linear atelectasis in the right upper lobe, right middle lobe and right lower lobe. While performing the above CT examination, radiation dose reduction was accomplished utilizing automated exposure control, adjusting of the mA and kV based on the patient's body size and/or the use of imperative reconstructive techniques. CT dose: 991.1 mGycm Contrast agent in mL: 75 Isovue 370 [address] [place] [address] PHONE: [phone] FAX: [phone] Name .................. : LOUISE James Acct Number.................. : [id number] ROOM. ................. : 104-1 MR Number ................... : [id number] Stay type ............. : I/P Discharge Date......... ... : Admit Date ......... : 07/09/19 Admit Phys .................... : CAPRICE FITZPATRICK Date of ....... : 1950 Family Phys ................... : NO PCP Phone .................. : [phone] Age ................................ : 69 Film# .................. .:[id number] Sex ................................. : M Unsigned transcriptions are preliminary reports and do not represent a medical or legal document CT CTA CHEST NON-CORONARY [place] [address]005 COMPLETE:07/09/19 16:54 KAH 52096 Reason(s): acute dyspnea, hx DVT, please r/o PE Method of administration: Intravenous Electronically Reviewed and Signed By Giuliano Wolfe MD , 07/10/19 12:27, [facility] Transcribe Initials: DANE , Transcribe Date: 07/09/19 20:09, Dictation Date: Copy for: 002 [facility] Copy for: 710 [facility] Page 2 of 2 Name Value Range Interpretation Code Description Data Miroslava rce(s) Supporting Document(s) ID Date Data Source [id number] 07/09/2019 09:49:00 PM [facility] Name Value Range Interpretation Code Description Data Miroslava rce(s) Supporting Document(s) Magnesium [Mass/volume] in Serum or Plasma 2.1 MG/DL 1.7 - 2.2 [facility] ID Date Data Source [id number] 07/09/2019 06:34:00 PM [facility] [address] [place] [address] PHONE: [phone] FAX: [phone] Name .................. : LOUISE James Acct Number.................. : [id number] ROOM. ................. : TR-05 MR Number ................... : [id number] Stay type ............. : E/R Discharge Date......... ... : Admit Date ......... : 07/09/19 Admit Phys .................... : MATTHEW RYAN Date of ....... : 1950 Family Phys ................... : NO PCP Phone .................. : [phone] Age ................................ : 69 Film# .................. .:[id number] Sex ................................. : M Unsigned transcriptions are preliminary reports and do not represent a medical or legal document CHEST PORTABLE 42183 COMPLETE:07/09/19 10:42 [facility] [place] [place] [address] Reason(s): Shortness of Breat h PORTABLE CHEST X-RAY: COMPARISON: Prior study from 12/05/18 FINDINGS: Increased bibasilar markings are identified suggesting CHF, atelectasis and/or infiltrate/pneumonia. There are findings suggestive of underlying COPD. The cardiac silhouette is enlarged. IMPRESSION: Increased markings bilaterally possibly representing CHF, atelectasis and/or pneumonia. Follow up to ensure resolution is recommended. Clinical correlation is recommended. Examination dictated by SANFORD Garcia. Examination was reviewed with Sophie Eldridge MD, radiologist at the time of this dictation. Electronically Reviewed and Signed By Sophie Eldridge MD , 07/09/19 18:34, [facility] Transcribe Initials: DANE , Transcribe Date: 07/09/19 11:08, Dictation Date: Copy for: 002 [facility] Copy for: 710 [facility] Page 1 of 1 Name Value Range Interpretation Code Description Data Miroslava rce(s) Supporting Document(s) ID Date Data Source [id number] 07/13/2019 07:45:00 AM [facility] Name Value Range Interpretation Code Description Data Miroslava rce(s) Supporting Document(s) Protein S Ag actual/normal in Platelet poor plasma by Immuno logic method 91 % 60-150 [facility] This test was developed and its performa nce characteristicsdetermined by [facility]. It has not been cleared or approvedby the Food and Drug Administration. Protein S Free Ag actual/normal in Platelet poor plasm a by Immunologic method 76 % 57-157 [facility] This test was developed and its performa nce characteristicsdetermined by [facility]. It has not been cleared or approvedby the Food and Drug Administration. ID Date Data Source [id number] 07/12/2019 06:13:00 PM [facility] Name Value Range Interpretation Code Description Data Miroslava rce(s) Supporting Document(s) Protein C Ag actual/normal in Platelet poor plasma by Immuno logic method 82 % 60-150 [facility] ID Date Data Source [id number] 07/11/2019 03:53:00 PM [facility] Name Value Range Interpretation Code Description Data Miroslava rce(s) Supporting Document(s) Nuclear Ab [Presence] in Serum Negative Negative [facility] ID Date Data Source [id number] 07/09/2019 09:20:00 AM [facility] 1 OrderSheet [facility] Emergency Department [address] [place] [address] Phone #: ext- [phone] 07/09/2019 09:20 Patient: ROBERTO RAO Sex: M : 1950 Age: 69yWEIGHT:87.0 kg (M) HEIGHT:70 inches (E) BMI:27.5ALLERGIES: Divalproex Sodium, Paxil, Simvastatin, WellbutrinCHIEF COMPLAINT: dyspneaDIAGNOSIS: Pulmonary embolism, Cellulitis of skin, Deep venous thrombosis, DyspneaLAB ORDERSOrder Description Priority Entered Acknowledged InitialedBNP STAT 09:33 07/09/2019 09:36 Nilsa CHRISTINA; Pierre SWANCBC w Diff STAT 09:33 07/09/2019 09:36 Nilsa CHRISTINA; Pierer RNCMP STAT 09:33 07/09/2019 09:36 Nilsa CHRISTINA; Pierre SWANInfluenza Nasal A B STAT 09:33 07/09/2019 09:36 Nilsa CHRISTINA; Pierre SWANLactic Acid STAT 09:33 07/09/2019 09:36 Nilsa CHRISTINA; Pierre SWANTroponin-T STAT 09:33 07/09/2019 09:36 Nilsa CHRISTINA; Pierre SWANUrinalysis (Clean STAT 09:33 07/09/2019 13:40 PeterCatch) Phong CHRISTINA; Ronnell RNBlood Culture STAT 09:55 07/09/2019 09:57 [id number] X2 (Sched Phong CHRISTINA; Ronnell RN09:55 07/09/2019)Blood Culture STAT 09:55 07/09/2019 10:20 [id number] X2 (Sched Phong CHRISTINA; Ronnell RN10:05 07/09/2019)Culture, Wound STAT 10:49 07/09/2019 12:14 Adolfo(Leg) Phong CHRISTINA; Ronnell RNVenous Blood Gas STAT 10:53 07/09/2019 12:14 Adolfo CHRISTINA; Ronnell RNDIAGNOSTIC STUDY ORDERSOrder Description Priority Entered Acknowledged InitialedChest Portable 1 STAT 09:33 07/09/2019 09:36 Audra (Oxygen? Phong CHRISTINA; Pierre RN(Yes)) Reason for Study: Shortness of Breath 2 OrderSheet [facility] Emergency Department [address] [place] [address] Phone #: ext- [phone] 07/09/2019 09:20 Patient: ROBERTO RAO Sex: M : 1950 Age: 69yUS Lower Ext STAT 09:56 07/09/2019 10:20 PeterVenous Bilateral Phong CHRISTINA; Ronnell RN(Oxygen?(No)) Reason for Study: DVT, Swelling, LimbCT CTA CHEST STAT 09:56 07/09/2019 10:20 Adolfo(NONCOR) W CON Phong CHRISTINA; Ronnell SWANINC PP(Oxygen?(No))(IV?(Yes)) Reason for Study: acute dyspnea, hx DVT, please r/o PEMEDICATION/IV/DRIP/FLUID ORDERSOrder Description Priority Entered Acknowledged InitialedNS IV : 75 mL/hr 09:33 07/09/2019 10:10 Adolfo(NOW x1) Phong CHRISTINA; Ronnell SWANRocephin 09:55 07/09/2019 11:26 Peter(2gm/100mL) IVPB Phong CHRISTINA; Ronnell RN1801 mg withDextroseIntravenous 100 mL(D5 W)Albuterol Neb Tx 09:58 07/09/2019 10:04 Adolfo2.5 mg (NOW x1) Phong CHRISTINA; Ronnell RNDuoNeb 3 mL X2 09:58 07/09/2019 10:12 PeterDoses: 6 mL (3 mL Phong CHRISTINA; Ronnell RNX2 Doses)Magnesium Sulfate 09:58 07/09/2019 12:59 PeterIVPB 1 gm (NOW Phong CHRISTINA; Ronnell SWANx1, Verify Strengthin Omnicell, HIGHALERTMEDICATION)SOLU-Medrol 125 09:58 07/09/2019 10:11 Adolfomg IV X1 Dose: 125 Phong CHRISTINA; Ronnell SWANmg (X1)GENERAL ORDERSOrder Description Priority Entered Acknowledged InitialedBlood Pressure 09:33 07/09/2019 09:47 Ron,Monitor Phong CHRISTINA; BlairCardiac Monitor 09:33 07/09/2019 09:47 Ron,(continuous) Phong CHRISTINA; BlairEKG 09:33 07/09/2019 09:46 Adolfo 3 OrderSheet [facility] Emergency Department [address] [place] [address] Phone #: ext- [phone] 07/09/2019 09:20 Patient: ROBERTO RAO Sex: M : 1950 Age: 69y Phong CHRISTINA; Ronnell SWANOxygen via NC 2-4 09:33 07/09/2019 09:47 Bullsara,liters/min titrate Phong CHRISTINA; Timoteo>92%Pulse Oximetry 09:33 07/09/2019 09:47 Ron,Continuous Phong CHRISTINA; BlairVitals 09:07/09/2019 09:47 Ron, Phong CHRISTINA; BlairVitals every 15 09:07/09/2019 09:47 Ron,minutes Phong CHRISTINA; BlairWarm blanket 09:33 07/09/2019 09:36 Nilsa Phong CHRISTINA; Pierre SWANConsult - 13:44 07/09/2019 14:08 PeterCardiologist Phong CHRISTINA; Ronnell SWAN[Electronically signed by Adolfo Reynaga RN (15:22 07/09/2019)][Electronically signed by Phong Castro (16:23 07/09/2019)][Electronically locked by Adolfo Reynaga RN (15:22 07/09/2019)] Name Value Range Interpretation Code Description Data Miroslava rce(s) Supporting Document(s) ID Date Data Source [id number] 07/09/2019 09:20:00 AM EST [facility] 1 Medication Reconciliation Report [facility] Emergency Department [address] [place] [address] Phone #: ext- [phone] 07/09/2019 09:20 Patient: ROBERTO RAO Sex: M : 1950 Age: 69yWeight: 87.0 kgHeight/Length: 70 in.BMI: 27.5ALLERGIES: Divalproex Sodium, Paxil, Simvastatin, WellbutrinThe patient's Home Medications are listed below:THE FOLLOWING MEDICATIONS NEED TO BE RECONCILED: Atorvastatin Calcium Oral 80 mg, daily Baclofen 10mg, 2x a day Carvedilol 3.125mg Citalopram Hydrobromide Oral (20 mg), daily Gabapentin Oral (300 mg), 3x a day Lasix Oral (20 mg), daily LevETIRAcetam Oral (750 mg), 2x a day Melatonin Oral (3 mg) Omeprazole Oral (20 mg) 1 capsule, daily Pramipexole Dihydrochloride Oral (1 mg), daily QUEtiapine Fumarate Oral (25 mg), at bedtime Senna Oral (8.6 mg) Vitamin B-1 Oral Xarelto Oral (15 mg), 2x a dayThe source(s) of the original Home Medication information: 2 Medication Reconciliation Report [facility] Emergency Department [address] [place] [address] Phone #: ext- [phone] 07/09/2019 09:20 Patient: ROBERTO RAO Sex: M : 1950 Age: 69yNot obtained.The following Medications were given to the patient in the Emergency Department:Albuterol [Neb Tx] Neb TX 2.5 mg, administered: 07/09/2019 10:04:00 AMNS [IV] IV Fluids bolus 0, then 75 mL/hr, administered: 07/09/2019 10:08:00 AMSolu-Medrol [IVP] IVP 125 mg, administered: 07/09/2019 10:11:00 AMDuoneb [Neb Tx] Neb TX 2 unit dose, administered: 07/09/2019 10:12:00 AMROCEPHIN (2GM/100ML) [IVPB] IVPB bolus 0, then 2 gm 200 mL/hr, administered: 07/09/2019 11:26:00AMMagnesium Sulfate [IVPB] IVPB bolus 0, then 1 gm 50 mL/hr, administered: 07/09/2019 12:58:00 PMThe following Medications were prescribed to the patient:None. Name Value Range Interpretation Code Description Data Miroslava rce(s) Supporting Document(s) ID Date Data Source [id number] 07/09/2019 09:20:00 AM EST [facility] 1 Medication Administration Record [facility] Emergency Department [address] [place] [address] Phone #: ext- [phone] 07/09/2019 09:20 Patient: ROBERTO RAO Sex: M : 1950 Age: 69yWeight: 87.0 kgHeight/Length: 70 inBMI: 27.5ALLERGIES: Divalproex Sodium, Paxil, Simvastatin, Wellbutrin Date/Time Medication Administered Medication OrderedStart NS [IV] NS IV : 75 mL/hr (NOW x1)10:08 07/09/2019 Dose: IV FluidsAdolfo Reynaga RN Rate: 75 mL/hr over 8 hour(s)---- Dispensed: 500 mL bagStop Site: #1 left AC15:05 07/09/2019Chidi Jorgensen ROCEPHIN (2GM/100ML) [IVPB] Rocephin (2gm/100mL) IVPB 264992:07/09/2019 (CEFTRIAXONE SODIUM) mg with Dextrose Intravenous Allen Reynaga RN Dose: 2 gm IVPB mL (D5W)---- Rate: 200 mL/hr over 30 minute(s)Stop Dispensed: 100 mL bag12:26 07/09/2019 Site: #1 left Luz Jones ALBUTEROL [NEB TX] Albuterol Neb Tx 2.5 mg (NOW x1)10:04 07/09/2019 Dose: 2.5 mg Nebulizer Neb TXLuz Jorgensen DUONEB [NEB TX] DuoNeb 3 mL X2 Doses: 6 mL (310:12 07/09/2019 Dose: 2 unit dose Nebulizer Neb TX mL X2 Doses)MACARIO Jorgensentart MAGNESIUM SULFATE [IVPB] Magnesium Sulfate IVPB 1 gm12:58 07/09/2019 Dose: 1 gm IVPB (NOW x1, Verify Strength inAdolfo Reynaga RN Rate: 50 mL/hr over 30 minute(s) Omnicell, HIGH ALERT---- Dispensed: 25 mL bag MEDICATION)Stop Site: #1 left AC13:42 07/09/2019Adolfo Reynaga RNGiven SOLU-MEDROL [IVP] SOLU-Medrol 125 mg IV X1 Dose:10:11 07/09/2019 (METHYLPREDNISOLONE SODIUM 125 mg (X1)Adolfo Reynaga RN SUCC) Dose: 125 mg IVP Site: #1 left AC Name Value Range Interpretation Code Description Data Miroslava rce(s) Supporting Document(s) ID Date Data Source [id number] 07/09/2019 09:20:00 AM [facility] 1 General Instructions [facility] Emergency Department [address] [place] [address] Phone #: ext- [phone] 07/09/2019 09:20 Patient: ROBERTO RAO Sex: M : 1950 Age: 69yAcute dyspnea.Recent pulmonary embolism.Chronic deep venous thrombosis of the right femoral vein and popliteal vein and left femoral vein andpopliteal vein.Cellulitis of the right lower leg, right ankle, right foot and left lower leg.(Electronically signed by SANFORD Aguillon 07/09/2019 16:23) Name Value Range Interpretation Code Description Data Miroslava rce(s) Supporting Document(s) ID Date Data Source [id number] 07/09/2019 09:20:00 AM [facility] 1 Clinical Report - Nurses [facility] Emergency Department [address] [place] [address] Phone #: wct- [phone] 07/09/2019 09:20 Patient: ROBERTO RAO Sex: M : 1950 Age: 69yTRIAGEArrived by EMS. Historian: EMS.Triage time: :07/09/2019. Acuity: LEVEL 2.Chief Complaint: SHORTNESS OF BREATH.:07/09/19. Alert. No acute distress.This started today.EMS Treatment SOCIETY REPORTER:Received prehospital notification of patient arrival. EMS treatment verbally communicated.SEPSIS SCREEN: NEGATIVE. Infection suspected/documented. --:07/09/19 Nilsa Jay RN09:24 07/09/19. BP: 118/92. MAP: 100. HR: 101. RR: 22. O2 saturation: 99%. Temp: 97.1 F. Pain levelnow: 0/10. --:07/09/19 Nilsa Jay RN.Weight: 87 kg measured. Height/Length: 70 inches Estimated. BMI: 27.5. --07/09/19 SOSA Collier.MedicationsAtorvastatin Calcium Oral 80 mg, daily. Baclofen 10mg, 2x a day. Carvedilol 3.125mg. Citalopram Hydrobromide Oral (Tablet 20 mg), daily. Gabapentin Oral (Capsule 300 mg), 3x a day. Lasix Oral (Tablet 20 mg), daily. LevETIRAcetam Oral (Tablet 750 mg), 2x a day. Melatonin Oral (Tablet 3 mg). --07/09/19 Nilsa Jay RN Omeprazole Oral (Capsule Delayed Release 20 mg) 1 capsule, daily. Pramipexole Dihydrochloride Oral (Tablet 1 mg), daily. QUEtiapine Fumarate Oral (Tablet 25 mg), at bedtime. Senna Oral (Capsule 8.6 mg). Vitamin B-1 Oral. Xarelto Oral (Tablet 15 mg), 2x a day. --07/09/19 Nilsa Jay RN.AllergiesDivalproex Sodium.Paxil. --07/09/19 MACARIO Chungimvastatin.Wellbutrin. --07/09/19 Nilsa Jay RN. 2 Clinical Report - Nurses [facility] Emergency Department [address] [place] [address] Phone #: ext- [phone] 07/09/2019 09:20 Patient: ROBERTO RAO Sex: M : 1950 Age: 69yPROBLEMS:Hypertension.Fall: (X three).DVT - Deep Venous Thrombosis.Hyperlipidemia.Cellulitis.Atrial Fibrillation.CVA - Cerebrovascular Accident.Neurological Disease. --07/09/19 Nilsa Jay RN.ADDITIONAL SURGERIES:None. --07/09/19 Nilsa Jay RN.Uhcnmrf23:07/09/19.PAST MEDICAL HX: Immunizations: up-to-date. Has not received seasonal influenza immunization.SOCIAL HX: Never smoker. No alcohol use or drug use. He was offered HIV testing but declined andhepatitis C testing but declined.SELF HARM ASSESSMENT: Self harm assessment was performed. The patient answered "no" to thequestion(s) "Do you have thoughts of harming or killing yourself?" and "Do you have a plan for harming orkilling yourself?".ABUSE ASSESSMENT: Abuse assessment. Abuse denied. No report of abuse.NUTRITIONAL RISK ASSESSMENT: The nutritional risk assessment revealed no deficiencies.LEARNING NEEDS ASSESSMENT: The learning needs assessment revealed no barriers.FALL RISK ASSESSMENT: Fall risk assessment completed. Risk factors identified include patient agegreater than 65 years and impairment of mobility. Fall interventions initiated. Patient placed on stretcher.Side rails up x2. Bed in low position. Brakes on. Patient identified as a fall risk by chart flagged.FUNCTIONAL ASSESSMENT: Functional assessment performed: communication barrier present- thiscommunication barrier i s an ongoing problem; mobility impairment present- this mobility impairment is anongoing problem; cognitive impairment- prior CVA. CVA Right weakness.SKIN INTEGRITY ASSESSMENT: Skin integrity risk assessment was performed. Risk factors identifiedinclude restricted mobility. --09:30 07/09/19 MACARIO ChungOCIAL HX: The patient has not traveled outside the [place]Infectious disease exposure: No infectious disease exposure. --09:33 07/09/19 Nilsa Jay RN. 3 Clinical Report - Nurses [facility] Emergency Department [address] [place] [address] Phone #: ext- [phone] 07/09/2019 09:20 Patient: ROBERTO RAO Sex: M : 1950 Age: 69yPHYSICAL ZLLGOSVRHO60:30 07/09/19. To room via stretcher.GENERAL / NEURO / PSYCH: Alert. Oriented X 4. Appears in no acute distress.HEENT: Mucous membranes are pink.RESPIRATORY: No respiratory distress. Respirations not labored. Chest nontender. Breath soundswithin normal limits.CVS: Capillary refill less than 2 seconds.GI / : Abdomen soft and nontender. Bowel sounds within normal limits.EXTREMITIES: Bilateral edema of the lower extremities involving both feet, both ankles and both lowerlegs.SKIN: Skin is warm and dry. Normal skin turgor. --09:32 07/09/19 Nilsa Jay RN.NURSING PROGRESS NOTES09:22 07/09/19. Pulse oximeter and NIBP monitor placed on patient. Patient gowned. Head of bedelevated. Two patient identifiers checked. Call light placed in reach. Side rails up x 2. Bed placed inlowest posi tion. Brakes of bed on. Patient ready for evaluation- PA notified. --09:30 07/09/19 SOSA Collier 09:58 07/09/2019 Site #1 started via IV in the left antecubital space with an 18g angiocath, with aseptic technique and good blood return; one attempt. Saline lock flushed with 10 mL saline. --10:08 07/09/19 Adolfo Reynaga RN 10:04 07/09/2019 Albuterol Neb TX Nebulizer 2.5 mg given. Given by the nurse. Allergies verified and confirmed 5 rights. Information reviewed with patient including reason for taking this medication. Verbalizes understanding. --10:04 07/09/19 Adolfo Reynaga RN 10:07/09/2019 Started bag #1 500 mL IV Fluids NS; at 75 mL/hr over 8 hour(s) via site #1 via IV pump. Allergies verified and confirmed 5 rights. IV patency established. IV site checked: no pain, redness, or swelling. IV flushed thoroughly pre- and post- medication administration. Information reviewed with patient including reason for taking this medication. Verbalizes understanding. --10:07/09/19 Adolfo Reynaga RN 10:07/09/2019 Solu-Medrol (methylPREDNISolone Sodium Succ) IVP 125 mg given over 2 minute(s) via site #1. Allergies verified and confirmed 5 rights. IV patency established. IV site checked: no pain, redness, or swelling. IV flushed thoroughly pre- and post-medication administration. IVP given by RN. Information reviewed with patient including reason for taking this medication. Verbalizes understanding. --10:07/09/19 Adolfo Reynaga RN 10:12 07/09/2019 Duoneb Neb TX Nebulizer 2 unit dose given. Given by the nurse. Allergies verified and confirmed 5 rights. Information reviewed with patient including reason for taking this medication. Verbalizes understanding. --10:12 07/09/19 Adolfo Reynaga RN ( assumed pt care, pt ready to go to US). --10:14 07/09/19 Adolfo Reynaga RN 4 Clinical Report - Nurses [facility] Emergency Department [address] [place] [address] Phone #: ext- [phone] 07/09/2019 09:20 [id number] Sex[facility] M : 1950 Age: 69y10:12 07/09/19. BP: 119/80. MAP: 93. HR: 104. RR: 20. O2 saturation: 100% on room air. Pain level now:0/10. --10:14 07/09/19 Carrie Jorgensen leg: applied dressing consisting of telfa pad. Secured with tape and claudette. --10:29 07/09/19 Amanda Driver transported to CT and sonogram by stretcher with assistant professor of radiology. --10:57 07/09/19 SOSA Driver11:07/09/2019 Started 2 gm of ROCEPHIN (2GM/100ML) (cefTRIAXone Sodium) IVPB in bag #1 100mL; at 200 mL/hr over 30 minute(s) via site #1. via IV pump. Allergies verified and confirmed 5 rights. IVpatency established. IV site checked: no pain, redness, or swelling. IV flushed thoroughly pre- andpost-medication administration. Information reviewed with patient including reason for taking thismedication. Verbalizes understanding. --11:26 07/09/19 Amanda Jorgensen returned from CT and sonogram by stretcher with tech and assistant professor of radiology. --11:26 07/09/19Adolfo Reynaga RN11:30 07/09/19. BP: 106/65. MAP: 78. HR: 106. RR: 20. O2 saturation: 96% on room air. Pain level now:0/10. --11:31 07/09/19 Amanda Jorgensen ID band checked for patient name and birthdate: patient confir med. Wound to right lower legswabbed for culture; collected by nurse. Specimen labeled in the presence of the patient. Right leg:applied dressing consisting of telfa pad. Secured with tape and claudette. ( pt has a stage 3 wound to rightlower leg, roberto 2.5 inches in diameter, dressing has been applied). --11:37 07/09/19 Adolfo Reynaga RN12:26 07/09/2019 ROCEPHIN (2GM/100ML) IVPB via IV site #1 Discontinued: infused. Total amountinfused: 100 mL. IV patency established. IV site checked: no pain, redness, or swelling. IV flushedthoroughly. --13:41 07/09/19 Adolfo Reynaga RN12:58 07/09/2019 Started 1 gm of Magnesium Sulfate IVPB in bag #1 25 mL; at 50 mL/hr over 30 minute(s)via site #1. via IV pump. Allergies verified and confirmed 5 rights. IV patency established. IV site checked:no pain, redness, or swelling. IV flushed thoroughly pre- and post- medication administration. Informationreviewed with patient including reason for taking this medication. Verbalizes understanding. --12: Adolfo Reynaga RN13:25 07/09/19. BP: 107/70. MAP: 82. HR: 108. RR: 19. O2 saturation: 97%. --13:25 07/09/19 [facility] [id number] 07/09/2019 Magnesium Sulfate IVPB via IV site #1 Discontinued: infused. Total amount infused: 25mL. IV patency established. IV site checked: no pain, redness, or swelling. IV flushed thoroughly. --13: Adolfo Reynaga RN14:11 07/09/19. BP: 108/61. MAP: 76. HR: 100. RR: 20. O2 saturation: 98% on room air. Temp: 97.5 F 5 Clinical Report - Nurses [facility] Emergency Department [address] [place] [address] Phone #: ext- [phone] 07/09/2019 09:20 Patient: ROBERTO RAO Sex: M : 1950 Age: 69y (oral). Pain level now: 0/10. --14:11 07/09/19 Adolfo Reynaga RN ( pt now has admission orders to [facility]). --15:00 07/09/19 Adolfo Reynaga RN 14:59 07/09/19. BP: 101/75. MAP: 83. HR: 102. RR: 20. O2 saturation: 99% on room air. Temp: 97.7 F (oral). Pain level now: 0/10. --15:00 07/09/19 Adolfo Reynaga RN 15:05 07/09/2019 IV Fluids NS via IV site #1 Discontinued: STOPPED upon admission. Total amount infused: 250 mL. IV patency established. IV site checked: no pain, redness, or swelling. IV flushed thoroughly. --15:05 07/09/19 Adolfo Reynaga RN.DISPOSITION / DISCHARGE Disposition: observation in the Acute Inpatient Unit, Monitored. Transported via stretcher by nurse with monitor and IV. Report was given to a nurse in person and at bedside. Bed obtained and ready (rm 104). --15:07 07/09/19 Adolfo Reynaga RN 15:05 07/09/19. BP: 101/75. MAP: 83. HR: 102. RR: 20. O2 saturation: 99%. Temp: 97.7 F. Pain level now: 0/10. --15:07 07/09/19 Adolfo Reynaga RN Departure time: 15:07/09/2019. --15:07/09/19 Adolfo Reynaga RN Report was given to a nurse in person and at bedside. Report included information regarding patient's care and treatment, current vital signs and abnormal labs. Report included treatment information regarding medications given or pending; type and amount of IV fluids and medications infusing and total volume infused. All questions were answered. Report was acknowledged and care was transferred. (More SWAN). --15:21 07/09/19 Adolfo Reynaga RN.Locked/Released at 07/09/2019 15:22 by Adolfo Reynaga RN Name Value Range Interpretation Code Description Data Miroslava rce(s) Supporting Document(s) ID Date Data Source [id number] 07/09/2019 09:20:00 AM [facility] 1 Clinical Report - Physicians/Mid Levels [facility] Emergency Department [address] [place] [address] Phone #: ext- [phone] 07/09/2019 09:20 Patient: ROBERTO RAO Sex: M : 1950 Age: 69y Time Seen: 09:31 07/09/2019. Arrived- By private vehicle. Historian- patient. Disposition decision: 13:36 07/09/2019.HISTORY OF PRESENT ILLNESS Chief Complaint: DYSPNEA. This started just prior to arrival Acute onset SOB this am at home, hx DVT RLE, on zarelto, hx acute on chronic cellulitis bilateral LE, R>L with healing wound R anterior distal leg. Feeling better after arrival to ED. Pt non verbal (grunts in response to questions) and at baseline today. Denies chest pain. The dyspnea is severe. No cough, sputum production, fever, sweating episodes or wheezing. No chills, chest pain or discomfort, calf pain or foot swelling. No anxiety, dizziness, tingling, numbness or palpitations. The patient has had dyspnea on exertion and orthopnea. Similar symptoms previously. Patient has had similar symptoms several times. Recent medical care: Not recently seen/assessed.REVIEW OF SYSTEMSThe patient has not had weight loss. No muscle aches, eye irritation, sore throat, nasal discharge or sinusdrainage. No nausea, vomiting, abdominal pain, diarrhea or black stools. No bloody stools, headache,fainting episodes, blurred vision or difficulty with urination. No excessive urination, skin rash, enlargedlymph nodes or joint pain.PAST HISTORYSee nurses notes. Problems: GI Disease. Contusion. Pneumonia. Pedal Edema. Sprain. PAIN LEFT SIDE. Other Disease. Hypertension. Fall. DVT - Deep Venous Thrombosis. Hyperlipidemia. Cellulitis. Atrial Fibrillation. CVA - Cerebrovascular Accident. Superficial Thrombophlebitis. Neurological Disease. 2 Clinical Report - Physicians/Mid Levels [facility] Emergency Department [address] [place] [address] Phone #: ext- [phone] 07/09/2019 09:20 Patient: ROBERTO RAO Sex: M : 1950 Age: 69y Additional Surgeries: None. Medications: Omeprazole Oral (Capsule Delayed Release 20 mg) 1 capsule, daily. Pramipexole Dihydrochloride Oral (Tablet 1 mg), daily. QUEtiapine Fumarate Oral (Tablet 25 mg), at bedtime. Senna Oral (Capsule 8.6 mg). Vitamin B-1 Oral. Xarelto Oral (Tablet 15 mg), 2x a day. Atorvastatin Calcium Oral 80 mg, daily. Baclofen 10mg, 2x a day. Carvedilol 3.125mg. Citalopram Hydrobromide Oral (Tablet 20 mg), daily. Gabapentin Oral (Capsule 300 mg), 3x a day. Lasix Oral (Tablet 20 mg), daily. LevETIRAcetam Oral (Tablet 750 mg), 2x a day. Melatonin Oral (Tablet 3 mg). Allergies: Divalproex Sodium. Paxil. Simvastatin. Wellbutrin.SOCIAL HISTORYNever smoker. No alcohol use or drug use. No recent travel.ADDITIONAL NOTESThe nursing notes have been reviewed with agreement regarding the chief complaint, HPI, ROS, PMH andpatient medications and allergies.PHYSICAL EXAMVital Signs: 07/09/2019 09:24 BP: 118/92. MAP: 100. HR: 101. RR: 22. O2 saturation: 99%. Temp: 97.1F. Pain level now: 0/10. Have been reviewed as abnormal and appear to be correct. Hypertensive.Mean arterial pressure- normal. Tachycardic. Tac hypneic. Temperature normal. Oxygen saturationnormal.Appearance: Alert. No acute distress.Eyes: Pupils equal, round and reactive to light. Eyes normal inspection.ENT: Ears normal. Nose normal. Pharynx normal. Uvula midline.Neck: Normal inspection. No jugular venous distention. Neck supple.CVS: Tachycardia. Heart sounds normal. Pulses normal.Respiratory: No respiratory distress. Painless inspiration. Breath sounds normal.Abdomen: Soft and nontender. No organomegaly. 3 Clinical Report - Physicians/[facility] Emergency Department [address] [place] [address] Phone #: ext- [phone] 07/09/2019 09:20 ----- Patient: ROBERTO RAO Sex: M : 1950 Age: 69y Back: Normal inspection. Skin: Skin warm and dry. Severe, well-demarcated, erythematous, macular skin rash (seveere cellulitis with severe +3 edema to RLE to include R foot). Extremities: Bilateral severe 3+ pitting edema of the lower extremities involving both feet, both ankles and both lower legs. Neuro: Oriented X 3. No motor deficit. No sensory deficit. Reflexes normal.LABS, X- RAYS, AND EKGEKG: EKG time: 10:58 07/09/2019. No acute process. No acute ischemia. Rate: 112. Atrial fibrillation(narrow-complex). EKG unchanged when compared with prior EKG. (26 December 2018). The study has beeninterpreted contemporaneously by me. The study has been independently viewed by me. The EKGappears to be a good tracing. Interpretation time: 10:58 07/09/2019.Chest X-ray: (COPD, CM, increased bibasilar markings, ? CHF, atelectasis, and/or PNAS.). Views: AP(portable). The X-rays were independently viewed by me and interpreted contemporaneously by me.Interpretation time: 10:49 07/09/2019.CTA Pulmonary Arteries: LLL PE, atelectasis RLL, areas of mosaic pattern of ventilation LLL: airtrapping. The CTA was performed with contrast. The study was independently viewed by me andinterpreted by the radiologist and contemporaneously by me. Interpretation time: 13:43 07/09/2019.Lower Extremity Sonography: bilateral partially occlusive DVT's of indeterminate acuity in bilateral CFVs,SFV's and popliteal veins. Study type: utilized duplex sonography. The exam was performed by atechnician. The study was independently viewed by me and interpreted by the radiologist andcontemporaneously by me. Interpretation time: 11:45 07/09/2019.Laboratory Tests: Laboratory tests have been ordered, with results reviewed and considered in themedical decision making process. Venous Blood Gas: (CORINA: 07/09/2019 09:51) ( [facility] 07/09/2019 11:41) Final results Test Result Flag Units (Reference) pH V 7.31 L (7.32 - 7.43) pCO2 V 54.6 H mm/HG (38.0 - 51.0) pO2 V 26.8 L mm/HG (30.0 - 55.0) HCO3 V 26.9 meq/L (22.0 - 29.0) TCO2 V 28.5 meq/L (22.0 - 29.0) BASE EXCESS -0.3 (-2.0 - 2.0) O2 SAT V 42.6 % (40.0 - 85.0) US Lower Ext Venous Bilateral: (CORINA: 07/09/2019 09:56) ( MsgRcvd 07/09/2019 13:14) In Progress US DOPPLER VENOUS BILAT LEG Reason(s): DVT TRANSPORTATION: S IV? O2? Oxygen?(No) Room: ED BNP: (CORINA: 07/09/2019 09:51) ( ScgRcvd 07/09/2019 11:04) Final results Test Result Flag Units (Reference) BNP 680 H PG/ML (0 - 125) CBC w Diff: (CORINA: 07/09/2019 09:51) ( MsgRcvd 07/09/2019 10:33) Final results Test Result Flag Units (Reference) CBC W/AUTOMATED DIFF COMPLETE BLOOD COUNT WBC 5.6 10/uL (4.2 - 11.0) RBC 4.29 L 10/uL (4.50 - 6.30) HEMOGLOBIN 13.6 L g/dL (14.0 - 16.0) 4 Clinical Report - Physicians/Mid Levels [facility] Emergency Department [address] [place] [address] Phone #: ext- [phone] 07/09/2019 09:20 --------- Patient: ROBERTO RAO Sex: M : 1950 Age: 69y HEMATOCRIT 42.1 % (41.0 - 51.0) MCV 98.1 H fL (80.0 - 94.0) MCH 31.7 pg (27.0 - 34.0) MCHC 32.3 g/dL (31.0 - 36.0) RDW 13.4 % (11.5 - 14.8) PLATELETS 197 10/uL (150 - 450) MPV 10.4 fL (7.4 - 10.4) NEUT 55.2 % (37.0 - 80.0) LYMPH 27.9 % (25.0 - 40.0) MONO 10.2 H % (3.0 - 8.0) EOS 5.2 % (0.0 - 7.0) BASO 1.1 % (0.0 - 2.0) %IG 0.4 H % (0.0 - 0.0) %NRBC 0.0 % (0.0 - 0.0) #NEUT 3.10 10/uL (2.00 - 6.90) #LYMPH 1.56 10/uL (0.60 - 3.40) #MONO 0.57 10/uL (0.00 - 0.90) #EOS 0.29 10/uL (0.00 - 0.70) #BASO 0.06 10/uL (0.00 - 0.20) #IG 0.02 10/uL (0.00 - 0.10) #NRBC 0.00 10/uL (0.00 - 0.00) MANUAL DIFF NOT INDICATED RBC MORPH NOT INDICATEDCMP: (CORINA: 07/09/2019 09:51) ( MsgRcvd 07/09/2019 10:43) Final results Test Result Flag Units (Reference) COMPREHENSIVE METABOLIC PANEL COMPREHENSIVE METABOLIC PANEL SODIUM 141 mEq/L (134 - 153) POTASSIUM 4.1 mEq/L (3.6 - 5.0) CHLORIDE 104 mEq/L (98 - 107) CO2 27 MEQ/L (22 - 30) GLUCOSE 108 MG/DL (65 - 110) BUN 21 MG/DL (7 - 21) CREATININE 1.3 MG/DL (0.7 - 1.5) BUN/CREAT 16 (8 - 27) TOTAL PROTEIN 7.1 G/DL (6.3 - 8.2) ALBUMIN 4.3 G/DL (3.9 - 5.0) GLOBULIN 2.8 GM/DL (2.4 - 3.2) A/G RATIO 1.5 (0.8 - 2.0) CALCIUM 9.8 MG/DL (8.4 - 10.2) TOTAL BILI <0.7 MG/DL (0.2 - 1.3) ALKALINE PHOS 64 U/L (38 - 126) SGOT/AST 16 U/L (5 - 40) SGPT/ALT 9 U/L (7 - 56) ANION GAP 10.0 mmol/L (8.0 - 16.0) AGE 69 yrs NON-AA GFR 58 mL/min AFR AMER GFR >60 mL/min Male GFR Interprentation 20-49 yrs >60 mL/min [place]73-26 yrs >56 mL/min Normal 60-69 yrs >49 mL/min Normal 70-79yrs>42 mL/min Normal 80 and above >35 mL/min Normal Female GFRInterpretation 20-39 yrs >60 mL/min Normal 40-49 yrs >58 mL/minNormal 50-59 yrs >51 mL/min Normal 60-69 yrs >45 mL/min Zefrrm74-30 yrs >39 mL/min Normal 80 and above >32 mL/min NormalInfluenza Nasal A B: (CORINA: 07/09/2019 09:35) ( MsgRcvd 07/09/2019 12:10) Final results Test Result Flag Units (Reference) INFLUENZA A NEGATIVE (NORMAL: NEGAT INFLUENZA B NEGATIVE (NORMAL: NEGAT INFLUENZA A REENTER NEGATIVE (NORMAL: NEGAT INFLUENZA B REENTER NEGATIVE (NORMAL: NEGAT PROCEDURAL CONTROL VALID KIT LOT # _[id number] 07/09/19.1203 . KIT EXP DATE _05.23.20 07/09/19.120 .The Influenza A utilizing an isothermal nucleic acid amplification technology for thequalitativedetection of influenza A and B viral RNA.Negative results do not preclude influenza virus infection and should 5 Clinical Report - Physicians/Mid Levels [facility] Emergency Department [address] [place] [address] Phone #: ext- [phone] 07/09/2019 09:20 Patient: ROBERTO RAO Sex: M : 1950 Age: 69ynot beused as the sole basis for diagnosis, treatment or other patient managementdecisions.Lactic Acid: (CORINA: 07/09/2019 09:51) ( [facility] 10:41) Final results Test Result Flag Units (Reference) LACTIC ACID 1.5 MMOL/L (0.2 - 2.2)Troponin-T: (CORINA: 07/09/2019 09:51) ( [facility] 07/09/2019 10:41) Final results Test Result Flag Units (Reference) TROPONIN T 0.01 NG/ML (0.00 - 0.10) TROPONIN T0.1 ng/ml Recommended as the clinical threshold value forTroponin T.Chest Portable 1 View: (CORINA: 07/09/2019 09:33) ( [facility] 07/09/2019 11:10) In ProgressCHEST PORTABLEReason(s): Shortness of BreathTRANSPORTATION: P IV? O2? Oxygen?(Yes) Room: [place] [address] PHONE: [phone] FAX: [phone] Name .................. : LOUISE James Acct Number.................. : [id number] ROOM. ................. : TR-05 MR Number ................... : [id number] Stay type ............. : E/R Discharge Date......... ... : Admit Date ......... : 07/09/19 Admit Phys .................... : MATTHEW RYAN Date of ....... : 1950 Family Phys ................... : NO PCP Phone .................. : [phone] Age ................... ............. : 69 Film# .................. .:[id number] Sex ................................. : M Unsigned transcriptions are preliminary reports and do not represent a medical or legal document CHEST PORTABLE [id number] COMPLETE:07/09/19 10:42 [facility] [place] [place] [id number] Reason(s): Shortness of Breath PORTABLE CHEST X-RAY: COMPARISON: Prior study from 12/05/18 FINDINGS: Increased bibasilar markings are identified suggesting CHF, atelectasis and/or infiltrate/pneumonia. There are findings suggestive of underlying COPD. The cardiac silhouette is enlarged. IMPRESSION: Increased markings bilaterally possibly representing CHF, atelectasis and/or pneumonia. Follow up to ensure resolution is recommended. Clinical correlation is recommended. Examination dictated by SANFORD Garcia. Examination was reviewed with Sophie Eldridge MD, radiologist at the time of this dictation. ____ Electronically Reviewed and Signed By DCTNAME SIGNDATERITCHIE Transcribe Initials: DZ , Transcribe Date: 07/09/19 11:08, Dictation Date: <<REPDIST>> 6 Clinical Report - Physicians/Mid Levels [facility] Emergency Department [address] [place] [address] Phone #: ext- [phone] 07/09/2019 09:20 Patient: ROBERTO RAO Sex: M : 1950 Age: 69y Page 1 of 1.PROGRESS AND PROCEDURESCourse of Care: 13:05 Jul 09 2019. Awaiting CTA chest results. 13:40 Jul 09 2019. s/s c/w dyspnea, with PE LLL and multiple bilateral LE DVT, with worsening cellulitis of RLE, including R foot. Will admit to Dr Hilario for further evaluation and treatment. Critical care performed (30 minutes). Time is exclusive of separately billable procedures. Time includes: direct patient care, patient reassessment, coordination of patient care, interpretation of data (laboratory data, pulse oximetry, chest xrays and prior electrocardiograms), review of patient's medical records, medical consultation and documentation of patient care- see progress notes. Disposition: Admitted to the Acute Inpatient Unit, M onitored. ABO incompatibility reaction and air embolism present prior to admission. UTI (catheter associated) was not present prior to admission. Pressure ulcer was not present prior to admission. Vascular infection (catheter associated) was not present prior to admission. Surgical site infection was not present prior to admission. An object left in surgery was not present prior to admission.CLINICAL IMPRESSION Acute dyspnea. Recent pulmonary embolism. Chronic deep venous thrombosis of the right femoral vein and popliteal vein and left femoral vein and popliteal vein. Cellulitis of the right lower leg, right ankle, right foot and left lower leg.(Electronically signed by SANFORD Aguillon 07/09/2019 16:23) Name Value Range Interpretation Code Description Data Miroslava rce(s) Supporting Document(s) ID Date Data Source [id number] 07/09/2019 01:37:00 PM [facility] Name Value Range Interpretation Code Description Data Miroslava rce(s) Supporting Document(s) URINALYSIS [facility] yellow NORMAL: Yellow [facility] CLARITY clear NORMAL: Clear [facility] Specific gravity of Urine by Test strip 1.020 1.001 - 1.030 [facility] pH 5 5 - 9 [facility] al Glucose [Mass/volume] in Urine by Test strip NORM NORMAL: Negat [facility] Bilirubin.total [Presence] in Urine by Test strip NEG NORMAL: Negative [facility] Ketones [Presence] in Urine by Test strip NEG NORMAL: Negative [facility] Protein [Mass/volume] in Urine by Test strip NEG NORMAL: Negat [facility] Nitrite [Presence] in Urine by Test strip NEG NORMAL: Negative [facility] BLOOD NEG NORMAL: Negative [facility] Leukocyte esterase [Presence] in Urine by Test strip NEG ALEX L: Negative [facility] Urobilinogen [Mass/volume] in Urine by Test strip NOR less hugo n 1.0 mg/dL [facility] MICROSCOPIC Not Indicate [facility] ID Date Data Source [id number] 07/12/2019 11:27:00 AM [facility] Name Value Range Interpretation Code Description Data Miroslava rce(s) Supporting Document(s) CULTURE WOUND [facility] .WOUND CULTURE_{ SPECIMEN MIROSLAVA RCE : SKIN Result: [place] [address] CLIA# [id number] SEE SCANNED REPORT ID Date Data Source [id number] 07/14/2019 12:53:00 PM [facility] [address] Name Value Range Interpretation Code Description Data Miroslava rce(s) Supporting Document(s) Bacteria identified in Blood by Culture [facility] NO GROWTH AFTER 5 DAYS ID Date Data Source [id number] 07/16/2019 01:43:00 PM [facility] Name Value Range Interpretation Code Description Data Miroslava rce(s) Supporting Document(s) CULTURE BLOOD [facility] _CULTURE BLOOD_ TEST PERFORM ED AT [address] [address] CLIA# [id number] SEE SCANNED REPORT{ PRELIM ID Date Data Source [id number] 07/14/2019 12:51:00 PM [facility] [address] Name Value Range Interpretation Code Description Data Miroslava rce(s) Supporting Document(s) Bacteria identified in Blood by Culture [facility] NO GROWTH AFTER 5 DAYS ID Date Data Source [id number] 07/16/2019 01:43:00 PM [facility] Name Value Range Interpretation Code Description Data Miroslava rce(s) Supporting Document(s) [facility] BLOOD [facility] _CULTURE BLOOD_ TEST PERFORM ED AT [address] [address] CLIA# [id number] SEE SCANNED REPORT{ PRELIM ID Date Data Source [id number] 07/11/2019 08:14:00 PM [facility] Name Value Range Interpretation Code Description Data Miroslava rce(s) Supporting Document(s) Cardiolipin IgG Ab [Units/volume] in Serum by Immunoassay 10 GPL U/mL 0-14 [facility] Negative: <15 Indeterminate: 15 - 20 Low-Med Positive: >20 - 80 High Positive: >80 Cardiolipin IgM Ab [Units/volume] in Serum by Immunoassay 9 MPL U/mL 0-12 [facility] Negative: <13 Indeterminate: 13 - 20 Low-Med Positive: >20 - 80 High Positive: >80 ID Date Data Source [id number] 07/09/2019 04:52:00 PM EST [facility] Name Value Range Interpretation Code Description Data Miroslava rce(s) Supporting Document(s) Hemoglobin A1c/Hemoglobin.total in Blood 5.8 % 4.4 - 6.1 [facility] {A1]{HB] ID Date Data Source [id number] 07/09/2019 04:51:00 PM EST [facility] Name Value Range Interpretation Code Description Data Miroslava rce(s) Supporting Document(s) [facility] PANEL [facility] LIPID PANEL Cholesterol [Mass/volume] in Serum or Plasma 172 MG/DL 131 - 200 [facility] Deprecated Triglyceride [Mass/volume] in Serum or Plasma 135 MG/DL 3 5 - 160 [facility] HDL 39 MG/DL 29 - 86 [facility] Cholesterol in LDL/Cholesterol in HDL [Mass Ratio] in Serum or Plasma 120 mg/dL 65 - 175 [facility] Cholesterol.total/Cholesterol in HDL [Mass Ratio] in Serum o r Plasma 4.4 3.4 - 4.9 [facility] LDL/HDL 3.08 1.00 - 3.55 [facility] ital CVE RISK CHOL/HDL LDL/HDLMEN: 1/2 AVERAGE 3.43 1.00 AVERAGE 4.97 3.55 2X AVERAGE 9.55 6.25 3X AVERAGE 23.99 7.99WOMEN: 1/2 AVERAGE 3.27 1.47 AVERAGE 4.44 3.22 2X AVERAGE 7.05 5.03 3X AVERAGE 11.04 6.14 ID Date Data Source [id number] 07/09/2019 11:39:00 AM EST [facility] Name Value Range Interpretation Code Description Data Miroslava rce(s) Supporting Document(s) pH of Serum or Plasma 7.31 7.32 - 7.43 L [facility] pCO2 V 54.6 mm/HG 38.0 - 51.0 H [facility] pO2 V 26.8 mm/HG 30.0 - 55.0 L [facility] Bicarbonate [Moles/volume] in Venous blood 26.9 meq/L 22.0 - 29.0 [facility] TCO2 V 28.5 meq/L 22.0 - 29.0 [facility] pital Base excess in Blood by calculation -0.3 -2.0 - 2.0 [facility] O2 SAT V 42.6 % 40.0 - 85.0 [facility] ital ID Date Data Source [id number] 07/09/2019 11:03:00 AM [facility] Name Value Range Interpretation Code Description Data Miroslava rce(s) Supporting Document(s) BNP 680 PG/ML 0 - 125 H [facility] al ID Date Data Source [id number] 07/09/2019 10:42:00 AM [facility] Name Value Range Interpretation Code Description Data Miroslava rce(s) Supporting Document(s) COMPREHENSIVE METABOLIC PANEL [facility] COMPREHENSIVE METABOLIC PANEL Sodium [Moles/volume] in Serum or Plasma 141 mEq/L 134 - 153 [facility] Potassium [Moles/volume] in Serum or Plasma 4.1 mEq/L 3.6 - 5.0 [facility] Chloride [Moles/volume] in Serum or Plasma 104 mEq/L 98 - 107 [facility] Carbon dioxide, total [Moles/volume] in Serum or Plasma 27 MEQ/L 22 - 30 [facility] Glucose [Mass/volume] in Serum or Plasma 108 MG/DL 65 - 110 [facility] BUN 21 MG/DL 7 - 21 [facility] Creatinine [Mass/volume] in Serum or Plasma 1.3 MG/DL 0.7 - 1.5 [facility] BUN/CREAT 16 8 - 27 [facility] Protein [Mass/volume] in Serum or Plasma 7.1 G/DL 6.3 - 8.2 [facility] Albumin [Mass/volume] in Serum or Plasma 4.3 G/DL 3.9 - 5.0 [facility] Globulin [Mass/volume] in Serum by calculation 2.8 GM/DL 2.4 - 3.2 [facility] A/G RATIO 1.5 0.8 - 2.0 [facility] Calcium [Mass/volume] in Serum or Plasma 9.8 MG/DL 8.4 - 10.2 [facility] Bilirubin.total [Mass/volume] in Serum or Plasma <0.7 MG/DL 0.2 - 1.3 [facility] Alkaline phosphatase [Enzymatic activity/volume] in Serum or Plasma 64 U/L 38 - 126 [facility] Aspartate aminotransferase [Enzymatic activity/volume] in Serum or Plasma 16 U/L 5 - 40 [facility] Alanine aminotransferase [Enzymatic activity/volume] in Seru m or Plasma 9 U/L 7 - 56 [facility] Anion gap 3 in Serum or Plasma 10.0 mmol/L 8.0 - 16.0 [facility] AGE 69 yrs [facility] al NON-AA GFR 58 mL/min [facility] AFR AMER GFR >60 mL/min [facility] Male GFR In terprentation 20-49 yrs >60 mL/min Normal 50-59 yrs >56 mL/min Normal 60-69 yrs >49 mL/min Normal 70-79yrs >42 mL/min Normal 80 and above >35 mL/min Normal Female GFR Interpretation 20-39 yrs >60 mL/min Normal 40-49 yrs >58 mL/min Normal 50-59 yrs >51 mL/min Normal 60-69 yrs >45 mL/min Normal 70-79 yrs >39 mL/min Normal 80 and above >32 mL/min Normal ID Date Data Source [id number] 07/09/2019 10:40:00 AM [facility] Name Value Range Interpretation Code Description Data Miroslava rce(s) Supporting Document(s) TROPONIN T 0.01 NG/ML 0.00 - 0.10 [facility] TROPONIN T0.1 ng/ml Recommended as the c linical threshold value forTroponin T. ID Date Data Source [id number] 07/09/2019 10:39:00 AM [facility] Name Value Range Interpretation Code Description Data Miroslava rce(s) Supporting Document(s) Lactate [Moles/volume] in Serum or Plasma 1.5 MMOL/L 0.2 - 2.2 [facility] ID Date Data Source [id number] 07/09/2019 10:33:00 AM EST [facility] Name Value Range Interpretation Code Description Data Miroslava rce(s) Supporting Document(s) CBC W/AUTOMATED DIFF [facility] COMPLETE BLOOD COUNT Leukocytes [#/volume] in Blood by Automated count 5.6 10^3/uL 4.2 - 1 1.0 [facility] Erythrocytes [#/volume] in Blood by Automated count 4.29 10^6/uL 4. 50 - 6.30 L [facility] Hemoglobin [Mass/volume] in Blood 13.6 g/dL 14.0 - 16.0 L [facility] Hematocrit [Volume Fraction] of Blood by Automated count 42.1 % 4 1.0 - 51.0 [facility] Erythrocyte mean corpuscular volume [Entitic volume] by Auto mated count 98.1 fL 80.0 - 94.0 H [facility] Erythrocyte mean corpuscular hemoglobin [Entitic mass] by Automated count 31.7 pg 27.0 - 34.0 [facility] Erythrocyte mean corpuscular hemoglobin concentration [Mass/volume] by Automated count 32.3 g/dL 31.0 - 36.0 [facility] Erythrocyte distribution width [Ratio] by Automated count 13.4 % 11.5 - 14.8 [facility] Platelets [#/volume] in Blood by Automated count 197 10^3/uL 150 - 45 0 [facility] Platelet mean volume [Entitic volume] in Blood by Automated count 10.4 fL 7.4 - 10.4 [facility] Neutrophils/100 leukocytes in Blood by Automated count 55.2 % 37. 0 - 80.0 [facility] Lymphocytes/100 leukocytes in Blood by Manual count 27.9 % 25.0 - 40.0 [facility] Monocytes/100 leukocytes in Blood by Automated count 10.2 % 3.0 - 8.0 H [facility] Eosinophils/100 leukocytes in Blood by Automated count 5.2 % 0.0 - 7.0 [facility] Basophils/100 leukocytes in Blood by Automated count 1.1 % 0.0 - 2.0 [facility] %IG 0.4 % 0.0 - 0.0 H [facility] %NRBC 0.0 % 0.0 - 0.0 [facility] Neutrophils [#/volume] in Blood by Automated count 3.10 10^3/uL 2.00 - 6.90 [facility] Lymphocytes [#/volume] in Blood by Automated count 1.56 10^3/uL 0.60 - 3.40 [facility] Monocytes [#/volume] in Blood by Automated count 0.57 10^3/uL 0.00 - 0.90 [facility] Eosinophils [#/volume] in Blood by Automated count 0.29 10^3/uL 0.00 - 0.70 [facility] Basophils [#/volume] in Blood by Automated count 0.06 10^3/uL 0.00 - 0.20 [facility] #IG 0.02 10^3/uL 0.00 - 0.10 [facility] #NRBC 0.00 10^3/uL 0.00 - 0.00 [facility] MANUAL DIFF NOT INDICATED [facility] RBC MORPH NOT INDICATED [facility] ID Date Data Source [id number] 07/09/2019 12:03:00 PM EST [facility] Name Value Range Interpretation Code Description Data Miroslava rce(s) Supporting Document(s) Influenza virus A Ag [Presence] in Nasopharynx by Immunoassa y NEGATIVE NORMAL: NEGATIVE [facility] Influenza virus B Ag [Presence] in Nasopharynx by Immunoassa y NEGATIVE NORMAL: NEGATIVE [facility] NEGATIVENEGATIVE PROCEDURAL CO NTROL VALID KIT LOT # _[id number] 07/09/19Joe . KIT EXP DATE _05.23.20 07/09/19Joe .The Influenza A & B assay is a rapid molecular in vitro diagnostic testutilizing an isothermal nucleic acid amplification technology for thequalitative detection of influenza A and B viral RNA.Negative results do not preclude influenza virus infection and should not beused as the sole basis for diagnosis, treatment or other patient managementdecisions. Procedure Social History Code Duration Value Status Description Data Source(s ) Alcohol intake 09/15/2019 12:00:00 AM EDT Not Currently completed [facility] Smoking 09/15/2019 12:00:00 AM EDT Never smoker completed Never s moker [facility] Smoking 08/08/2019 12:00:00 AM EDT Unknown if ever smoked comp leted Unknown if ever smoked [facility] Vital Signs ID Date Data Source UNK Name Value Range Interpretation Code Description Data Source(s) Respiratory rate 16 /min 16 /min [facility] ( Neymar Hilario MD) Oxygen saturation in Arterial blood by Pulse oximetry 96 % 96 % [facility] (Neymar Hilario MD) Heart rate 108 /min 108 /min [facility] (Neymar Hilario MD) Diastolic blood pressure 88 mm[Hg] 88 mm[Hg] [facility] (Neymar Hilario MD) Systolic blood pressure 125 mm[Hg] 125 mm[Hg] M [facility] (Neymar Hilario MD) Body temperature 99.9 [degF] 99.9 [degF] [facility] (Neymar Hilario MD) Body height 70 [in_i] 70 [in_i] [facility] (Neymar Hilario MD) 5'10" Inhaled oxygen concentration 21 % 21 % [place] ([facility]) Inhaled oxygen flow rate 0 L/min 0 L/min [place] ([facility]) Oxygen saturation in Arterial blood by Pulse oximetry 92 % 92 % [place] ([facility]) Body temperature 97.3 [degF] 97.3 [degF] [facility] ([facility]) Respiratory rate 24 /min 24 /min [place] ([facility]) Heart rate 90 /min 90 /min [place] ([facility]) Diastolic blood pressure 78 mm[Hg] 78 mm[Hg] [place] ([facility]) Systolic blood pressure 130 mm[Hg] 130 mm[Hg] [facility] Inhaled oxygen concentration 21 % 21 % [place] ([facility]) Inhaled oxygen flow rate 0 L/min 0 L/min [place] ([facility]) Oxygen saturation in Arterial blood by Pulse oximetry 99 % 99 % [place] ([facility]) Body temperature 97.8 [degF] 97.8 [degF] [place]) Respiratory rate 24 /min 24 /min [place] ([facility]) Heart rate 95 /min 95 /min [place] ([facility]) Diastolic blood pressure 76 mm[Hg] 76 mm[Hg] [place] ([facility]) Systolic blood pressure 124 mm[Hg] 124 mm[Hg] [facility]) Inhaled oxygen concentration 21 % 21 % [place] ([facility]) L calf measurement 47 cm, L foot 31 cm, and R calf 37 cm , L foot 26 cm Inhaled oxygen flow rate 0 L/min 0 L/min [place] ([facility]) L calf measurement 47 cm, L foot 31 cm, and R calf 37 cm , L foot 26 cm Oxygen saturation in Arterial blood by Pulse oximetry 98 % 98 % [place] ([facility]) L calf measurement 47 cm, L foot 31 cm, and R calf 37 cm , L foot 26 cm Body temperature 97.6 [degF] 97.6 [degF] [place]) L calf measurement 47 cm, L foot 31 cm, and R calf 37 cm , L foot 26 cm Respiratory rate 24 /min 24 /min [place] ([facility]) L calf measurement 47 cm, L foot 31 cm, and R calf 37 cm , L foot 26 cm Heart rate 99 /min 99 /min [place] ([facility]) L calf measurement 47 cm, L foot 31 cm, and R calf 37 cm , L foot 26 cm Diastolic blood pressure 80 mm[Hg] 80 mm[Hg] [place] ([facility]) L calf measurement 47 cm, L foot 31 cm, and R calf 37 cm , L foot 26 cm Systolic blood pressure 130 mm[Hg] 130 mm[Hg] [facility] ([facility]) L calf measurement 47 cm, L foot 31 cm, and R calf 37 cm , L foot 26 cm Inhaled oxygen concentration 21 % 21 % [place] ([facility]) Measured calf circumferance. Left 15.5 i n in diameter. Right, 20 inches in diameter. TS Inhaled oxygen flow rate 0 L/min 0 L/min [place] ([facility]) Measured calf circumferance. Left 15.5 i n in diameter. Right, 20 inches in diameter. TS Oxygen saturation in Arterial blood by Pulse oximetry 94 % 94 % [place] ([facility]) Measured calf circumferance. Left 15.5 i n in diameter. Right, 20 inches in diameter. TS Body temperature 96.8 [degF] 96.8 [degF] [place] ([facility]) Measured calf circumferance. Left 15.5 i n in diameter. Right, 20 inches in diameter. TS Respiratory rate 22 /min 22 /min [place] ([facility]) Measured calf circumferance. Left 15.5 i n in diameter. Right, 20 inches in diameter. TS Heart rate 78 /min 78 /min [place] ([facility]) Measured calf circumferance. Left 15.5 i n in diameter. Right, 20 inches in diameter. TS Diastolic blood pressure 70 mm[Hg] 70 mm[Hg] [place] ([facility]) Measured calf circumferance. Left 15.5 i n in diameter. Right, 20 inches in diameter. TS Systolic blood pressure 122 mm[Hg] 122 mm[Hg] [place] ([facility]) Measured calf circumferance. Left 15.5 i n in diameter. Right, 20 inches in diameter. TS Oxygen saturation in Arterial blood by Pulse oximetry 100 % 100 % [facility] Body temperature 36.61 Oly 36.61 Oly [facility] Heart rate 78 /min 78 /min [facility] Diastolic blood pressure 59 mm[Hg] 59 mm[Hg] [facility] Systolic blood pressure 93 mm[Hg] 93 mm[Hg] S [facility] Respiratory rate 16 /min 16 /min [facility] Body weight 96.191 kg 96.191 kg [facility] Oxygen saturation in Arterial blood by Pulse oximetry 96 % 96 % [place] ([facility]) Body temperature 97.8 [degF] 97.8 [degF] [place] ([facility]) Respiratory rate 20 /min 20 /min [place] ([facility]) Heart rate 76 /min 76 /min [place]) Diastolic blood pressure 60 mm[Hg] 60 mm[Hg] [place] ([facility]) Systolic blood pressure 100 mm[Hg] 100 mm[Hg] [facility] ([facility]) Oxygen saturation in Arterial blood by Pulse oximetry 91 % 91 % [place] ([facility]) Body temperature 98.8 [degF] 98.8 [degF] [place]) Respiratory rate 24 /min 24 /min [place] ([facility]) Heart rate 92 /min 92 /min [place]) Diastolic blood pressure 66 mm[Hg] 66 mm[Hg] [place] ([facility]) Systolic blood pressure 118 mm[Hg] 118 mm[Hg] [facility] ([facility]) Inhaled oxygen concentration 21 % 21 % [place] ([facility]) Inhaled oxygen flow rate 0 L/min 0 L/min [place] ([facility]) Oxygen saturation in Arterial blood by Pulse oximetry 96 % 96 % [place] ([facility]) Respiratory rate 20 /min 20 /min [place] ([facility]) Heart rate 92 /min 92 /min [place] ([facility]) Diastolic blood pressure 80 mm[Hg] 80 mm[Hg] [place] ([facility]) Systolic blood pressure 140 mm[Hg] 140 mm[Hg] [facility] ([facility]) Oxygen saturation in Arterial blood by Pulse oximetry 99 % 99 % [place] ([facility]) unable to be weighed in wheel chair Body temperature 97.8 [degF] 97.8 [degF] [place] ([facility]) unable to be weighed in wheel chair Respiratory rate 24 /min 24 /min [place] ([facility]) unable to be weighed in wheel chair Heart rate 83 /min 83 /min [place] ([facility]) unable to be weighed in wheel chair Diastolic blood pressure 68 mm[Hg] 68 mm[Hg] [place] ([facility]) unable to be weighed in wheel chair Systolic blood pressure 122 mm[Hg] 122 mm[Hg] [facility] unable to be weighed in wheel chair ID Date Data Source [id number] 08/26/2019 02:35:42 PM EDT [facility] Name Value Range Interpretation Code Description Data Source(s) WEIGHT RECORDED 229.6 lb 229.6 lb [facility] Body height Measured 69 in 69 in [address]st [facility] ID Date Data Source [id number] 07/25/2019 12:15:08 PM [facility] Name Value Range Interpretation Code Description Data Source(s) WEIGHT RECORDED 229.[address] [facility] Height 66 Inches 066 Inches [facility] Patient Treatment Plan of Care Planned Activity Planned Date Details Description Data Source (s) Amoxicillin 875 MG / Clavulanate 125 MG Oral Tablet 05/06/20 20 12:00:00 AM [facility]) Mupirocin 0.02 MG/MG Topical Ointment 05/06/2020 12:00:00 AM [facility]) Acetaminophen 325 MG / Hydrocodone Bitartrate 5 MG Ora l Tablet 04/28/2020 12:00:00 AM [facility] ([facility]) Carboxymethylcellulose Sodium 5 MG/ML Ophthalmic Solut ion 04/06/2020 12:00:00 AM [facility] ([facility]) Acetaminophen 325 MG / Hydrocodone Bitartrate 5 MG Ora l Tablet 04/06/2020 12:00:00 AM [facility] ([facility]) GLORIA Elastic Bandage 4" Miscellaneous 04/06/2020 12:00:00 AM [facility]) rivaroxaban 20 MG Oral Tablet [Xarelto] 04/06/2020 12:00:00 AM [facility]) Senna 8.6 MG Oral Tablet 04/06/2020 12:00:00 AM [facility]) buspirone hydrochloride 5 MG Oral Tablet 04/06/2020 12:00:00 AM EST [place] ([facility]) Citalopram 20 MG Oral Tablet 04/06/2020 12:00:00 AM [facility]) duloxetine 30 MG Delayed Release Oral Capsule [Cymbalt a] 04/06/2020 [facility]00:[facility] Diltiazem Hydrochloride 30 MG Oral Tablet 04/06/2020 12:00:00 AM [facility] ([facility]) gabapentin 300 MG Oral Capsule 04/06/2020 12:00:00 AM [facility] ([facility]) Levetiracetam 750 MG Oral Tablet [Keppra] 04/06/2020 12:00:00 AM [facility] ([facility]) Furosemide 20 MG Oral Tablet [Lasix] 04/06/2020 12:00:00 AM [facility]) atorvastatin 20 MG Oral Tablet [Lipitor] 04/06/2020 12:00:00 AM EST [facility]) Melatonin 5 MG Oral Tablet 04/06/2020 12:00:00 AM [facility] ([facility]) Pramipexole dihydrochloride 1 MG Oral Tablet [Mirapex] 04/06/2020 12:00:00 AM [facility] ([facility]) pantoprazole 40 MG Delayed Release Oral Tablet [Proton ix] 04/06/2020 12:00:00 AM [facility] ([facility]) quetiapine 50 MG Oral Tablet 04/06/2020 12:00:00 AM [facility]) Aspercreme Lidocaine 4% External Patch 04/06/2020 12:00:00 AM EST [facility]) Acetaminophen 325 MG Oral Tablet 04/06/2020 12:00:00 AM [facility]) Carboxymethylcellulose Sodium 5 MG/ML Ophthalmic Solut ion 04/06/2020 12:00:00 AM [facility]) Acetaminophen 325 MG / Hydrocodone Bitartrate 5 MG Ora l Tablet 03/30/2020 12:00:00 AM EST [place] ([facility]) [place]OR[place] Elastic Bandage 4" Miscellaneous 03/16/2020 12:00:00 AM EDT [place] ([facility]) Acetaminophen 325 MG / Hydrocodone Bitartrate 5 MG Ora l Tablet 03/04/2020 12:00:00 AM EDT [place] ([facility]) POLYETHYLENE GLYCOL 3350 142 MG/ML Oral Solution 09/19/2019 12:00:0 0 AM EDT [facility] pantoprazole 40 MG Delayed Release Oral Tablet 09/19/2019 12:00:00 AM EDT [facility] lidocaine (ASPERCREME) 4 % PTCH 09/19/2019 12:00:00 AM EDT [facility] Docusate Sodium 50 MG / sennosides, DETENTION 8.6 MG Oral Ta blet 09/18/2019 12:00:00 AM EDT [facility] Ondansetron 4 MG Disintegrating Oral Tablet 09/18/2019 12:00:00 AM EDT [facility] Citalopram 40 MG Oral Tablet 08/21/2019 12:00:00 AM [facility] linezolid 600 MG Oral Tablet 08/15/2019 12:00:00 AM [facility] Oxycodone Hydrochloride 5 MG Oral Tablet 08/15/2019 12:00:00 AM [facility] Melatonin 3 MG Oral Tablet 08/15/2019 12:00:00 AM [facility] sennosides, DETENTION 35.2 MG/ML Oral Solution 08/08/2019 06:14:41 PM [facility] Bisacodyl 10 MG Rectal Suppository 08/08/2019 06:14:41 PM [facility] Furosemide 20 MG Oral Tablet [Lasix] [facility] Pram[facility]xole dihydrochloride 1 MG Oral Tablet 08/05/2019 12:00:00 AM [facility] gabapentin 300 MG Oral Capsule 08/05/2019 12:00:00 AM [facility] Omeprazole 20 MG Delayed Release Oral Capsule 08/05/2019 12:00:00 A M [facility] buspirone hydrochloride 5 MG Oral Tablet 08/05/2019 12:00:00 AM [facility] Furosemide 20 MG Oral Tablet 08/05/2019 12:00:00 AM [facility] Levofloxacin 500 MG Oral Tablet [Levaquin] 07/22/2019 12:00:00 AM E [facility]) quetiapine 25 MG Oral Tablet 07/09/2019 12:00:00 AM [facility] Levetiracetam 750 MG Oral Tablet 07/09/2019 12:00:00 AM [facility] rivaroxaban 20 MG Oral Tablet [Xarelto] 07/09/2019 12:00:00 AM [facility] Citalopram 40 MG Oral Tablet 07/09/2019 12:00:00 AM [facility] duloxetine 30 MG Delayed Release Oral Capsule 07/09/2019 12:00:00 A M [facility] Diltiazem Hydrochloride 30 MG Oral Tablet 07/09/2019 12:00:00 AM [facility] atorvastatin 40 MG Oral Tablet 07/09/2019 12:00:00 AM [facility] rivaroxaban 20 MG Oral Tablet [Xarelto] 07/08/2019 12:00:00 AM [facility]) Acetaminophen 325 MG / Hydrocodone Bitartrate 5 MG Ora l Tablet 07/08/2019 12:00:00 AM [facility] ([facility]) Acetaminophen 325 MG / Hydrocodone Bitartrate 5 MG Ora l Tablet 07/08/2019 12:00:00 AM [facility] ospital rivaroxaban 20 MG Oral Tablet [Xarelto] 06/17/2019 12:00:00 AM [facility] ([facility]) Acetaminophen 325 MG / Hydrocodone Bitartrate 5 MG Ora l Tablet 05/27/2019 12:00:00 AM [facility]) Warfarin Sodium 4 MG Oral Tablet 12/07/2016 12:00:00 AM [facility] sennosides, DETENTION 35.2 MG/ML Oral Solution 12/07/2016 12:00:00 AM [facility] pantoprazole (PROTONIX) 2 mg/mL SUSP oral suspension 017 12:00:00 AM [facility] Melatonin 3 MG Oral Tablet 12/07/2016 12:00:00 AM [facility] Levetiracetam 100 MG/ML Oral Solution 12/07/2016 12:00:00 AM [facility] Diltiazem Hydrochloride 30 MG Oral Tablet 12/07/2016 12:00:00 AM [facility] atorvastatin 80 MG Oral Tablet 12/07/2016 12:00:00 AM [facility] atorvastatin 80 MG Oral Tablet [facility] Citalopram 20 MG Oral Tablet [facility] Baclofen 10 MG Oral Tablet [facility] Vitamin B 12 0.5 MG Oral Tablet [facility] B Complex Vitamins (VITAMIN B COMPLEX) [facility] carvedilol 3.125 MG Oral Tablet [facility]
--- NOTE | 2020-07-20 11:40 | REP ---
INDICATION: DYSPNEA/COUGH. COMPARISON: 07/09/2019, [facility]. TECHNIQUE: SINGLE PORTABLE AP VIEW OF THE CHEST WAS PERFORMED. FINDINGS: There is persistent moderate elevation of the right hemidiaphragm. Bilateral fibro atelectatic changes are stable. Heart mediastinum are unchanged. There are sternal wires present. IMPRESSION: Stable bilateral fibro atelectatic changes. <Electronically signed by Pedro Washington > 07/20/20 1131
[2020-07-20 11:43] LABS: BASO % 0.4 % (0.0-1.0); EOS # 0.2 10^3/uL (0.0-0.5); EOS % 3.2 % (0.0-3.0); HEMATOCRIT 40.3 % (42.0-52.0); HEMOGLOBIN 12.2 g/dl (13.5-17.5); LYMPH # 1.5 10^3/uL (1.5-5.0); LYMPH % 29.7 % (24.0-44.0); MEAN CORPUSCULAR HEMOGLOBIN 30.7 pg (27.0-33.0); MEAN CORPUSCULAR HGB CONC 30.3 g/dl (32.0-36.5); MEAN CORPUSCULAR VOLUME 101.5 fl (80.0-96.0); MONO # 0.6 10^3/uL (0.0-0.8); MONO % 10.9 % (2.0-8.0); NEUTROPHILS # 2.8 10^3/uL (1.5-8.5); NEUTROPHILS % 55.6 % (36.0-66.0); PLATELET COUNT, AUTOMATED 175 10^3/uL (150-450); RED BLOOD COUNT 3.97 10^6/uL (4.30-6.10); WHITE BLOOD COUNT 5.1 10^3/uL (4.0-10.0)
[2020-07-20] MEDS: COMBIVENT RESPIMAT 100-20MCG INHALER 4GM INH SCH ×3 (12:07→14:08)
--- NOTE | 2020-07-20 12:19 | REP ---
INDICATION: calf pain, hx cva w expressive aphasia COMPARISON: None. TECHNIQUE: Real time compression and duplex Doppler interrogation of the bilateral lower extremity deep venous system is performed. FINDINGS: Nonocclusive thrombus is seen in the mid to distal right femoral vein and right popliteal vein. Nonocclusive thrombus is seen in the right common femoral, superficial femoral and popliteal veins. IMPRESSION: Nonocclusive thrombus in the left common femoral vein and bilateral superficial femoral and popliteal veins. <Electronically signed by Pedro Washington > 07/20/20 1492
[2020-07-20 12:24] LABS: ALBUMIN 3.6 GM/DL (3.2-5.2); ALT/SGPT 12 U/L (12-78); BILIRUBIN,DIRECT 0.1 MG/DL (0.0-0.2); BILIRUBIN,TOTAL 0.5 MG/DL (0.2-1.0); BLOOD UREA NITROGEN 14 MG/DL (7-18); CALCIUM LEVEL 9.5 MG/DL (8.8-10.2); CARBON DIOXIDE LEVEL 29 MEQ/L (21-32); CHLORIDE LEVEL 106 MEQ/L (98-107); CPK CREATINE PHOSPHOKINASE 45 U/L (39-308); CREATININE FOR GFR 1.06 MG/DL (0.70-1.30); GLOMERULAR FILTRATION RATE > 60.0 (>42); GLUCOSE, FASTING 81 MG/DL (70-100); MB/CK RELATIVE INDEX 2.22 (< OR =4); NT-PRO BNP 1217 PG/ML (<125); POTASSIUM SERUM 4.3 MEQ/L (3.5-5.1); SODIUM LEVEL 138 MEQ/L (136-145); THYROID STIMULATING HORMONE 0.429 uIU/ML (0.358-3.740); THYROXINE (T4) 8.4 UG/DL (4.5-12.0); TOTAL PROTEIN 7.7 GM/DL (6.4-8.2); TROPONIN I < 0.02 NG/ML (< 0.10)
[2020-07-20] MEDS ORDERED: ISOVUE-370 76% 100ML VIAL As Ordered ONE (14:13)
--- NOTE | 2020-07-20 14:53 | REP ---
INDICATION: sob - dvt. COMPARISON: Comparison CT pulmonary angiogram July 09, 2019.. TECHNIQUE: Contrast dose: 75 ML of Isovue [address] technique: Helical scanning is acquired and overlapping 1.5 mm and contiguous 3 mm axial images are reformatted. In addition, maximum intensity projection and multiplanar re-formation images are generated in sagittal and coronal imaging projections. FINDINGS: There is good opacification in the pulmonary arterial tree. There is no evidence of vessel cut off or filling defect to suggest pulmonary embolus. Homogeneous opacity is seen in the thoracic aorta. There is no evidence of aneurysm or dissection. Lung window settings demonstrate discoid atelectasis in the right lower lobe and right middle lobe. Right hemidiaphragm is elevated. There is some discoid atelectatic change in the right upper lobe as well. No hilar mass or adenopathy is observed. No endobronchial disease is appreciated. No pleural or pericardial effusion is noted. Patient is status post prior median sternotomy. Cardiomegaly is observed. Left atrial and right atrial enlargement are seen. In the upper abdomen, normal adrenal glands are observed. The visualized upper abdominal structures are otherwise unremarkable. IMPRESSION: No CT evidence of pulmonary embolus. Scattered platelike atelectasis right lung most pronounced in the right lower lobe similar to the prior study. Four-chamber cardiomegaly. Elevated right hemidiaphragm. Prior sternotomy. <Electronically signed by Cornelius Adan > 07/20/20 0759
[2020-07-20] MEDS ORDERED: FUROSEMIDE 20MG/2ML VIAL (J1940) IV ONE (15:30)
[2020-07-20] MEDS ORDERED: ATOR1TAB21 PO (15:55)
[2020-07-20] MEDS ORDERED: DILT30TA PO (15:55)
[2020-07-20] MEDS ORDERED: PANT40TA29 PO (15:55)
[2020-07-20] MEDS ORDERED: DULO1CAP5 PO (15:55)
[2020-07-20] MEDS ORDERED: FURO20TA2 PO (15:55)
[2020-07-20] MEDS ORDERED: FUROSEMIDE 40MG/4ML VIAL (J1940) IV ONE (16:00)
--- NOTE | 2020-07-20 16:04 | ECGEPIP ---
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
[2020-07-20] MEDS ORDERED: QUET50TA3 PO (16:24)
--- OUTSIDE RECORDS SUMMARY | 2020-07-20 16:27 | CCD ---
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 Emulsion Coater Name Role Phone ROXY ADAME MD Unavailable [...] Unavailable CAPRICE, MAQBOOL NEYMAR MD Unavailable Unavailable CARPICE, MAQBOOL NEYMAR MD Unavailable Unavailable CAPRICE, MAQBOOL [...] Unavailable CAPRICE, MAQBOOL NEYMAR MD Unavailable Unavailable CARPICE, MAQBOOL NEYMAR MD Unavailable Unavailable CAPRICE, MAQBOOL [...] MAQBOOL NEYMAR MD Unavailable Unavailable CAPRICE, MAQBOOL NEYAMR MD Unavailable Unavailable CAPRICE, MAQBOOL NEYMAR MD Unavailable Unavailable CAPRICE, MAQBOOL NEYMAR MD Unavailable Unavailable CARPICE, MAQBOOL NEYMAR MD Unavailable Unavailable CAPRICE, MAQBOOL [...] Unavailable Isaura, Raza Mcclure MD Unavailable Unavailable Isuara, Raza Mcclure MD Unavailable Unavailable Isaura, Raza [...] Raza Mcclure MD Unavailable Unavailable Isaura, Raza cMclure MD Unavailable Unavailable Isaura, Raza Mcclure MD [...] A James MD Unavailable Unavailable Kopko, A Jaems MD Unavailable Unavailable Kopko, A James MD [...] Unavailable Isaura, Raza Mcclure MD Unavailable Unavailable Iasura, Raza Mcclure MD Unavailable Unavailable Isaura, Raza [...] Unavailable Isaura, Raza Mcclure MD Unavailable Unavailable Siaura, Raza Mcclure MD Unavailable Unavailable Isaura, Raza [...] Isaura, Raza Mcclure MD Unavailable Unavailable Isaura, Raaz Mcclure MD Unavailable Unavailable Isaura, Raza Mcclure [...] is protected by Article 27-F of the [facility] Public Health law. If you continue you may have access to information: Regarding HIV / AIDS; Provided by facilities licensed or operated by the [facility] Office of Mental Health; or Provided by the [facility] Office for People With Developmental Disabilities. If such information is present, then the following [facility] mandated warning applies: This information has been [...] may result in a fine or senior care sentence or both. A general authorization for the release of medical or other information is NOT sufficient authorization for further disc losure. Allergies and Adverse Reactions Type Description Substance Reaction Status Data Source(s ) No Known Drug Allergies No Known Drug Allergies [facility] Propensity to adverse reactions BUPROPION Bupropion Acti ve [facility] Propensity to adverse reactions SIMVASTATIN Simvastatin Ac tive [facility] Propensity to adverse reactions PAROXETINE HCL Paroxetine Hcl Active [facility] Propensity to adverse reactions DIVALPROEX SODIUM Divalproex Sodium Active [facility] BRANDNAME PAXIL PAXIL [facility] Drug allergy DIVALPROEX SODIUM DIVALPROEX SODIUM [facility] BRANDNAME WELLBUTRIN WELLBUTRIN [facility] Drug allergy SIMVASTATIN SIMVASTATIN [facility] Drug allergy Depakote Depakote twitching legs Active [facility] ([facility]) Drug allergy Paxil Paxil eye swelling Active [facility] ([facility]) Drug allergy Wellbutrin Wellbutrin eye swelling Active [facility] ([facility]) Drug allergy Zocor Zocor muscle aches Active [facility] ([facility]) Drug allergy Depakote Depakote twitching legs Active [facility] [facility] ([facility]) Drug allergy Paxil Paxil eye swelling Active [place] ([facility]) Drug allergy Wellbutrin Wellbutrin eye swelling Active [place] ([facility]) Drug allergy Zocor Zocor muscle aches Active [place] ([facility]) Drug allergy Depakote Depakote twitching legs Active [facility] [facility] ([facility]) Drug allergy Paxil Paxil eye swelling Active [facility] ([facility]) Drug allergy Wellbutrin Wellbutrin eye swelling Active [facility] ([facility]) Drug allergy Zocor Zocor muscle aches Active [facility] ([facility]) Drug allergy Depakote Depakote twitching legs Active [facility] [facility] ([facility]) Drug allergy Paxil Paxil eye swelling Active [facility] ([facility]) Drug allergy Wellbutrin Wellbutrin eye swelling Active [place] ([facility]) Drug allergy Zocor Zocor muscle aches Active [facility] ([facility]) Drug allergy Depakote Depakote twitching legs Active [facility] [facility] ([facility]) Drug allergy Paxil Paxil eye swelling Active [place] ([facility]) Drug allergy Wellbutrin Wellbutrin eye swelling Active [facility] ([facility]) Drug allergy Zocor Zocor muscle aches Active [place] ([facility]) Drug allergy Depakote Depakote twitching legs Active [facility] [facility] ([facility]) Drug allergy Paxil Paxil eye swelling Active [facility] ([facility]) Drug allergy Wellbutrin Wellbutrin eye swelling Active [facility] ([facility]) Drug allergy Zocor Zocor muscle aches Active [facility] ([facility]) Drug allergy Depakote 125 MG Oral Tablet Delayed Rele ase Depakote 125 MG Oral Tablet, enteric coated twitching legs Active [facility] ([facility]) Drug allergy Paxil 10 MG Oral Tablet Paxil 10 MG Oral Tablet eye sw elling Active [facility] ([facility]) Drug allergy Wellbutrin 100 MG Oral Tablet Wellbutrin 100 MG Oral Tablet eye swelling Active [facility] ([facility]) Drug allergy Zocor 10 MG Oral Tablet Zocor 10 MG Oral Tablet muscle aches Active [place] ([facility]) Drug allergy Depakote 125 MG Oral Tablet Delayed Rele ase Depakote 125 MG Oral Tablet, enteric coated twitching legs Active [facility] ([facility]) Drug allergy Paxil 10 MG Oral Tablet Paxil 10 MG Oral Tablet eye sw elling Active [facility] ([facility]) Drug allergy Wellbutrin 100 MG Oral Tablet Wellbutrin 100 MG Oral Tablet eye swelling Active [place] ([facility]) Drug allergy Zocor 10 MG Oral Tablet Zocor 10 MG Oral Tablet muscle aches Active [facility] ([facility]) Drug allergy Depakote 125 MG Oral Tablet Delayed Rele ase Depakote 125 MG Oral Tablet, enteric coated twitching legs Active [facility] ([facility]) Drug allergy Paxil 10 MG Oral Tablet Paxil 10 MG Oral Tablet eye sw elling Active [facility] ([facility]) Drug allergy Wellbutrin 100 MG Oral Tablet Wellbutrin 100 MG Oral Tablet eye swelling Active [place] ([facility]) Drug allergy Zocor 10 MG Oral Tablet Zocor 10 MG Oral Tablet muscle aches Active [facility] ([facility]) Drug allergy Depakote 125 MG Oral Tablet Delayed Rele ase Depakote 125 MG Oral Tablet, enteric coated twitching legs Active [facility] ([facility]) Drug allergy Paxil 10 MG Oral Tablet Paxil 10 MG Oral Tablet eye sw elling Active [place] ([facility]) Drug allergy Wellbutrin 100 MG Oral Tablet Wellbutrin 100 MG Oral Tablet eye swelling Active [facility] ([facility]) Drug allergy Zocor 10 MG Oral Tablet Zocor 10 MG Oral Tablet muscle aches Active [facility] ([facility]) Family History Family Member Name Family Member Gender Family Member Status Date o f Status Description Data Source(s) Unknown Male Problem [facility] ([facility], ) () Encounters Encounter Providers Location Date Indications Data Source(s ) Outpatient Attender: NEYMAR HILARIO MD [facility] 07/14 02:45:00 PM EST [facility] (Neymar Hilario MD) Outpatient Attender: Nelson Radford MDConsultant: PCP NO 07/14/2020 02:10:00 PM EST - 07/14/2020 03:10:00 PM EST [facility] [place] [address] [address] 06/29/2020 12:00:00 AM EST eCW1 ([facility]) [place] [address] [address] 06/24/2020 12:00:00 AM EST eCW1 ([facility]) Outpatient Attender: Nelson Chong masters: Nelson Radford MDConsultant: PCP NO 06/04/2020 03:06:00 PM EST - 06/04/2020 03:16:00 PM [facility] Outpatient<td ID="encounterTypeDescripti onID0">STANDARD OV</td><td>Nelson Radford MD</td><td>[facility],</td><td>05/14/2020</td><td>10:25AM</td><td>11:21AM</td><td><content ID="encounterDiagnosisID0-0">Cellulitis</content></td> Attender: Nelson Radford MD [facility], 05/14/2020 10:25:00 AM EST - 05/14/2020 11:21:00 AM EST Cellulitis [place] ([facility]) Cellulitis Outpatient Attender: Nelson Radford MDConsultant: PCP NO 05/14/2020 09:53:00 AM EST - 05/14/2020 10:53:00 AM EST [facility] Outpatient Attender: Nelson Chong masters: Nelson Radford MDConsultant: PCP NO 05/06/2020 03:43:00 PM EST - 05/06/2020 03:53:00 PM EST [facility] Patient discharged. Outpatient<td ID="encounterTypeDescripti onID1">EXTENDED VISIT</td><td>Nelson Radford MD</td><td>[facility]</td><td>05/06/2020</td><td>3:10PM</td><td>4:15PM</td><td><content ID="encounterDiagnosisID1-0">Cellulitis</content>, <content ID="encounterDiagnosisID1-1">Persistent Insomnia</content></td> Attender: Nelson Radford MD [facility] 05/06/2020 03:10:00 PM EST - 05/06/2020 04:15:00 PM EST Persistent InsomniaCellulitisPersistent InsomniaCellulitis [place] ([facility]) Persistent Insomnia Cellulitis Persistent Insomnia Cellulitis Outpatient<td ID="encounterTypeDescripti onID2">EXTENDED VISIT</td><td>Nelson Radford MD</td><td>[facility]</td><td>04/28/2020</td><td>9:40AM</td><td>10:53AM</td><td><content ID="encounterDiagnosisID2-0">Chronic Pain</content>, <content ID="encounterDiagnosisID2-1">Atrial Fibrillation Chronic</content>, <content ID="encounterDiagnosisID2-2">Late Effects of Cerebral Infarction Aphasia</content></td> Attender: Nelson Radford MD [facility] , 04/28/2020 09:40:00 AM EST - 04/28/2020 10:53:00 AM ES T Late Effects of Cerebral Infarction AphasiaAtrial Fibrillation ChronicChronic PainLate Effects of Cerebral Infarction AphasiaAtrial Fibrillation ChronicChronic PainLate Effects of Cerebral Infarction AphasiaAtrial Fibrillation ChronicChronic PainLate Effects of Cerebral Infarction AphasiaAtrial Fibrillation ChronicChronic Pain [place] ([facility]) Late Effects of Cerebral Infarction Apha bonnie Atrial Fibrillation Chronic Chronic Pain Late Effects of Cerebral Infarction Apha bonnie Atrial Fibrillation Chronic Chronic Pain Late Effects of Cerebral Infarction Apha bonnie Atrial Fibrillation Chronic Chronic Pain Late Effects of Cerebral Infarction Apha bonnie Atrial Fibrillation Chronic Chronic Pain Outpatient<td ID="encounterTypeDescripti onID3">EXTENDED VISIT</td><td>Nelson Radford MD</td><td>[facility],</td><td>03/30/2020</td><td>1:03PM</td><td>2:36PM</td><td><content ID="encounterDiagnosisID3-0">Chronic Kidney Disease Stage 3</content>, <content ID="encounterDiagnosisID3-1">Atrial Fibrillation Chronic</content>, <content ID="encounterDiagnosisID3-2">Stroke Syndrome</content>, <content ID="encounterDiagnosisID3-3">Late Effects of Cerebral Infarction Aphasia</content>, <content ID="encounterDiagnosisID3-4">Edema</content></td> Attender: Nelson Radford MD [facility], 03/30/2020 01:03:00 PM EST - 03/30/2020 02:36:00 [...] SyndromeAtrial Fibrillation ChronicChronic Kidney Disease Stage 3 [facility] ([facility]) Edema Late Effects of Cerebral Infarction Apha [...] AM EDT - 11/14/2019 07:57:00 AM EDT [facility] Patient Referrer: TAYLER HOLLAND MD 11/04/2019 03 :23:29 PM EDT [facility] Outpatient Attender: JAYLAN GAR MDConsultant: PCP NO 10/31/2019 06:53:00 AM EDT - 10/31/2019 07:03:00 AM EDT [facility] Outpatient Attender: James Willams MDReferrer: TAYLER HOLLAND MD 10/29/2019 11:38:56 AM EDT [facility] Outpatient Attender: JALYAN GAR MDConsultant: PCP NO 10/19/2019 09:08:00 AM EDT - 10/19/2019 09:18:00 AM EDT [facility] Outpatient Attender: JAYLAN GAR MDConsultant: PCP NO 09/19/2019 07:17:00 AM EDT - 09/19/2019 07:27:00 AM EDT [facility] Rec[facility] Patient Referrer: TAYLER HOLLAND MD 09/16/2019 12 :53:09 PM EDT [facility] Inpatient Attender: ROXY ADAME MD Attender: GUICHO Mejiaender: GUICHO Mejiaender: TAYLER HOLLAND MDAdmitter: TAYLER HOLLAND MDConsultant: James Willams MD [id number] 09/13/2019 10:40:00 PM EDT - 09/18/2019 01:42:00 PM EDT [facility] Patient discharged. Emergency Attender: ALEX VOGT MDConsultant: PCP NO 09/13/2019 04:36:00 PM EDT - 09/13/2019 08:15:00 PM EDT [facility] Patient discharged. Outpatient 08/08/2019 07:56:00 AM EDT Emergency Attender: ALEX VOGT MDConsultant: PCP NO 08/08/2019 07:38:00 AM EDT - 08/08/2019 01:19:00 PM EDT [facility] Inpatient Attender: Chetan Maloney MDAt tender: Blayne SageAttender: RADAMES Bassder: ANNI NASH MDAdmitter: ANNI NASH MDReferrer: RADAMES VALENZUELA [id number] 08/08/2019 12:00:00 AM EDT - 08/15/2019 04:00:00 PM ED T Lower extremity Edema and Cellulitis; hx stroke with RT side residuals, pt is bed bound [facility] Lower extremity Edema and Cellulitis; hx stroke with RT side residuals, pt is bed bound Patient discharged. Outpatient<td ID="encounterTypeDescripti onID4">RX UPDATE</td><td>Nelson Radford MD</td><td></td><td>03/04/2020</td><td>07/29/2019 3:49PM</td><td>07/29/2019 11:59PM</td><td></td> Attender: Nelson Radford MD 07/29/2019 03:49:00 PM EST - 07/29/2019 11:59:00 PM EST [place] ([facility]) Outpatient<td ID="encounterTypeDescripti onID5">EXTENDED VISIT</td><td>Arpit Khan MD</td><td>[facility],</td><td>07/29/2019</td><td>12:45PM</td><td>2:31PM</td><td></td> Attender: Arpit Khan MD [facility], 07/29/2019 12:45:00 PM EST - 07/29/2019 02:31:00 PM EST [place] ([facility]) Outpatient 07/23/2019 08:14:00 AM EST [facility] Outpatient<td ID="encounterTypeDescripti onID6">HOSP I/P F/U</td><td>Arpit Khan MD</td><td>[facility],</td><td>07/22/2019</td><td>10:16AM</td><td>11:52AM</td><td><content ID="encounterDiagnosisID6-0">Cellulitis of Right Lower Leg</content>, <content ID="encounterDiagnosisID6-1">Cellulitis of Left Lower Leg</content>, <content ID="encounterDiagnosisID6-2">Arterial Embolism Pulmonary Left</content></td> Attender: Arpit Khan MD [facility], 07/22/2019 10:16:00 AM EST - 07/22/2019 11:52:00 [...] Lower LegCellulitis of Right Lower Leg [place] ([facility]) Arterial Embolism Pulmonary Left Cellulitis of Left [...] Phong BROWNonsultant: PCP NO 07/09/2019 02:00:00 PM [facility] - 07/12/2019 02:35:00 PM [facility] Patient discharged. Outpatient 07/09/2019 10:14:00 AM [facility] Emergency Attender: Phong Castro PA-C 03/2020 09:20:00 AM [facility] - 07/09/2019 02:00:00 PM [facility] Outpatient<td ID="encounterTypeDescripti onID7">EXTENDED VISIT</td><td>Arpit Khan MD</td><td>[facility]</td><td>07/08/2019</td><td>11:45AM</td><td>12:35PM</td><td><content ID="encounterDiagnosisID7-0">Chronic Cutaneous Ulcer Venous Stasis</content></td> Attender: Arpit Khan MD [facility] 07/08/2019 11:45:00 AM [facility] - 07/08/2019 12:35:00 PM ES T Chronic Cutaneous Ulcer Venous StasisChronic Cutaneous Ulcer Venous StasisChronic Cutaneous Ulcer Venous StasisChronic Cutaneous Ulcer Venous StasisChronic Cutaneous Ulcer Venous StasisChronic Cutaneous Ulcer Venous StasisChronic Cutaneous Ulcer Venous StasisChronic Cutaneous Ulcer Venous StasisChronic Cutaneous Ulcer Venous Stasis [place] ([facility]) 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 [address] [address] 06/18/2019 12:00:00 AM EST eCW1 ([facility]) Outpatient<td ID="encounterTypeDescripti onID8">RX UPDATE</td><td>Arpit Khan MD</td><td>[facility]</td><td>06/17/2019</td><td>05/27/2019 1:21PM</td><td>05/27/2019 11:59PM</td><td></td> Attender: Arpit Khan MD [facility] 06/17/2019 01:21:00 PM EST - 05/27/2019 11:59:00 PM EST [facility] ([facility]) Outpatient<td ID="encounterTypeDescripti onID9">NEW PATIENT EVALUATION</td><td>Arpit Khan MD</td><td>[facility]</td><td>05/27/2019</td><td>10:47AM</td><td>12:01PM</td><td><content ID="encounterDiagnosisID9-0">Stroke Syndrome</content>, <content ID="encounterDiagnosisID9-1">Hyperlipidemia</content>, <content ID="encounterDiagnosisID9-2">Anxiety Disorder Nos</content>, <content ID="encounterDiagnosisID9-3">Essential Hypertension Benign</content>, <content ID="encounterDiagnosisID9-4">Depression</content></td> Attender: Arpit Khan MD [facility] 05/27/2019 10:47:00 AM EST - 05/27/2019 12:01:00 PM EST DepressionEssential Hypertension BenignA nxiety Disorder NosHyperlipidemiaStroke SyndromeDepressionEssential Hypertension BenignAnxiety Disorder NosHyperlipidemiaStroke SyndromeDepressionEssential Hypertension BenignAnxiety Disorder NosHyperlipidemiaStroke SyndromeDepressionEssential Hypertension BenignAnxiety Disorder NosHyperlipidemiaStroke SyndromeDepressionEssential Hypertension BenignAnxiety Disorder NosHyperlipidemiaStroke SyndromeDepressionEssential Hypertension BenignAnxiety Disorder NosHyperlipidemiaStroke SyndromeDepressionEssential Hypertension BenignAnxiety Disorder NosHyperlipidemiaStroke SyndromeDepressionEssential Hypertension BenignAnxiety Disorder NosHyperlipidemiaStroke SyndromeDepression Essential Hypertension BenignAnxiety Disorder NosHyperlipidemiaStroke SyndromeDepressionEssential Hypertension BenignAnxiety Disorder NosHyperlipidemiaStroke Syndrome [place] ([facility]) Depression Essential Hypertension Benign Anxiety Disorder Nos [...] EST active mupirocin 0.02 MG/MG Topical Ointment [place] ([facility]) Amoxicillin 875 MG / Clavulanate 125 MG Oral Tablet Amoxicillin-Pot Clavulanate 875-125 MG Oral Tablet Amoxicillin-Pot Clavulanate 875-125 MG Oral Tablet 05/06/2020 12:00:00 AM EST active amoxicillin 875 MG / clavulanate 125 MG Oral Tablet [facility] ([facility]) Acetaminophen 325 MG / Hydrocodone Karissa trate 5 MG Oral Tablet HYDROcodone- Acetaminophen 5-325 MG Oral Tablet HYDROcodone-Acetaminophen 5-325 MG Oral Tablet 04/28/2020 12:00:00 AM EST active acetaminophen 325 MG / hydrocodone bitartrate 5 MG Oral Tablet [facility]) pantoprazole 40 MG Delayed Release Oral Tablet [Protonix] Protonix 40 MG Oral Tablet Delayed Release Protonix 40 MG Oral Tablet Delayed Release 04/06/2020 12:00:00 AM EST active pantoprazole 40 MG Delayed Release Oral Tablet [Protonix] [facility]) quetiapine 50 MG Oral Tablet QUEtiapine Fumarate 50 MG Oral Tablet QUEtiapine Fumarate 50 MG Oral Tablet 04/06/2020 12:00:00 AM EST active quetiapine 50 MG Oral Tablet [facility]) Melatonin 5 MG Oral Tablet Melatonin 5 MG Oral Tablet 2019 12:00:00 AM EST active melatonin 5 MG Or al Tablet [facility]) Pramipexole dihydrochloride 1 MG Oral Tablet [Mirapex] Mirapex 1 MG Oral Tablet Mirapex 1 MG Oral Tablet 04/06/2020 12:00:00 AM EST active pramipexole dihydrochloride 1 MG Oral Tablet [Mirapex] [facility]) atorvastatin 20 MG Oral Tablet [Lipitor] Lipitor 20 MG Oral Tablet Lipitor 20 MG Oral Tablet 04/06/2020 12:00:00 AM EST activ e atorvastatin 20 MG Oral Tablet [Lipitor] [facility]) Furosemide 20 MG Oral Tablet [Lasix] Lasix 20 MG Oral Tablet Lasix 20 MG Oral Tablet 04/06/2020 12:00:00 AM EST active furosemide 20 MG Oral Tablet [Lasix] [facility]) Acetaminophen 325 MG Oral Tablet Acetaminophen 325 MG Oral T ablet 04/06/2020 12:00:00 AM EST active acetamin ophen 325 MG Oral Tablet [facility]) Aspercreme Lidocaine 4% External Patch Aspercreme Lidocaine 4% External Patch 04/06/2020 12:00:00 AM EST active lidocaine 0.04 MG/MG Medicated Patch [facility]) Levetiracetam 750 MG Oral Tablet [Keppra] Keppra 750 M G Oral Tablet Keppra 750 MG Oral Tablet 04/06/2020 12:00:00 AM EST act mariana levetiracetam 750 MG Oral Tablet [Keppra] [facility]) gabapentin 300 MG Oral Capsule Gabapentin 300 MG Oral Capsule Gabapentin 300 MG Oral Capsule 04/06/2020 12:00:00 AM EST activ e gabapentin 300 MG Oral Capsule [facility]) Diltiazem Hydrochloride 30 MG Oral Tablet dilTIAZem HC l 30 MG Oral Tablet dilTIAZem HCl 30 MG Oral Tablet 04/06/2020 12:00:00 AM EST active diltiazem hydrochloride 30 MG Oral Tablet [facility]) Acetaminophen 325 MG / Hydrocodone Karissa trate 5 MG Oral Tablet HYDROcodone- Acetaminophen 5-325 MG Oral Tablet HYDROcodone-Acetaminophen 5-325 MG Oral Tablet 04/06/2020 12:00:00 AM EST aborted acetaminophen 325 MG / hydrocodone bitartrate 5 MG Oral Tablet [facility]) Carboxymethylcellulose Sodium 5 MG/ML Op hthalmic Solution Refresh Tears 0.5% Ophthalmic Solution Refresh Tears 0.5% Ophthalmic Solution 04/06/2020 12:0 0:00 AM EST aborted carboxym ethylcellulose sodium 5 MG/ML Ophthalmic Solution [facility]) duloxetine 30 MG Delayed Release Oral Ca psule [Cymbalta] Cymbalta 30 MG Oral Capsule Delayed Release Particles Cymbalta 30 MG Oral Capsule Delayed Rele ase Particles 04/06/2020 12:00:00 AM EST active duloxetine 30 MG Delayed Release Oral Capsule [Cymbalta] [facility]) Carboxymethylcellulose Sodium 5 MG/ML Op hthalmic Solution Refresh Tears 0.5% Ophthalmic Solution Refresh Tears 0.5% Ophthalmic Solution 04/06/2020 12:0 0:00 AM EST active carboxym ethylcellulose sodium 5 MG/ML Ophthalmic Solution [facility]) Citalopram 20 MG Oral Tablet Citalopram Hydrobromide 2 0 MG Oral Tablet Citalopram Hydrobromide 20 MG Oral Tablet 04/06/2020 12:00:00 AM EST active citalopram 20 MG Oral Tablet [facility] buspirone hydrochloride 5 MG Oral Tablet busPIRone HCl 5 MG Oral Tablet busPIRone HCl 5 MG Oral Tablet 04/06/2020 12:00:00 AM EST 1 active buspirone hydrochloride 5 MG Oral Tablet [facility]) Senna 8.6 MG Oral Tablet Senna 8.6 MG Oral Tablet 04/06/2020 12:00: 00 AM EST active Senna [facility] ([facility]) rivaroxaban 20 MG Oral Tablet [Xarelto] Xarelto 20 MG Oral Tablet Xarelto 20 MG Oral Tablet 04/06/2020 12:00:00 AM EST active rivaroxaban 20 MG Oral Tablet [Xarelto] [facility]) GLORIA Elastic Bandage 4" Miscellaneous GLORIA Elastic Bandage 4" Miscellaneous 04/06/2020 12:00:00 AM EST active GLORIA Elastic Bandage 4" [place] ([facility]) Acetaminophen 325 MG / Hydrocodone Karissa trate 5 MG Oral Tablet HYDROcodone- Acetaminophen 5-325 MG Oral Tablet HYDROcodone-Acetaminophen 5-325 MG Oral Tablet 03/30/2020 12:00:00 AM EST 1 aborted acetaminophen 325 MG / hydrocodone bitartrate 5 MG Oral Tablet [facility]) GLORIA Elastic Bandage 4" Miscellaneous GLORIA Elastic Bandage 4" Miscellaneous 03/16/2020 12:00:00 AM EDT aborted GLORIA Elastic Bandage 4" [place] ([facility]) Melatonin 5 MG Oral Tablet Melatonin 5 MG Oral Tablet 2019 12:00:00 AM EDT aborted melatonin 5 MG O ral Tablet [facility]) Acetaminophen 325 MG Oral Tablet Acetaminophen 325 MG Oral T ablet 03/06/2020 12:00:00 AM EDT aborted acetami nophen 325 MG Oral Tablet [facility]) quetiapine 50 MG Oral Tablet QUEtiapine Fumarate 50 MG Oral Tablet QUEtiapine Fumarate 50 MG Oral Tablet 03/06/2020 12:00:00 AM EDT aborted quetiapine 50 MG Oral Tablet [facility]) pantoprazole 40 MG Delayed Release Oral Tablet [Protonix] Protonix 40 MG Oral Tablet Delayed Release Protonix 40 MG Oral Tablet Delayed Release 03/06/2020 12:00:00 AM EDT aborted pantoprazole 40 MG Delayed Release Oral Tablet [Protonix] [facility] ([facility]) Pramipexole dihydrochloride 1 MG Oral Tablet [Mirapex] Mirapex 1 MG Oral Tablet Mirapex 1 MG Oral Tablet 03/06/2020 12:00:00 AM EDT aborted pramipexole dihydrochloride 1 MG Oral Tablet [Mirapex] [facility] ([facility]) rivaroxaban 20 MG Oral Tablet [Xarelto] Xarelto 20 MG Oral Tablet Xarelto 20 MG Oral Tablet 03/06/2020 12:00:00 AM EDT aborte d rivaroxaban 20 MG Oral Tablet [Xarelto] [facility]) Senna 8.6 MG Oral Tablet Senna 8.6 MG Oral Tablet 03/06/2020 12:00: 00 AM EDT aborted Senna [facility] ([facility]) Carboxymethylcellulose Sodium 5 MG/ML Op hthalmic Solution Refresh Tears 0.5% Ophthalmic Solution Refresh Tears 0.5% Ophthalmic Solution 03/06/2020 12:0 0:00 AM EDT aborted carboxym ethylcellulose sodium 5 MG/ML Ophthalmic Solution [facility] ([facility]) duloxetine 30 MG Delayed Release Oral Ca psule [Cymbalta] Cymbalta 30 MG Oral Capsule Delayed Release Particles Cymbalta 30 MG Oral Capsule Delayed Rele ase Particles 03/06/2020 12:00:00 AM EDT aborted duloxetine 30 MG Delayed Release Oral Capsule [Cymbalta] [facility] ([facility]) Citalopram 20 MG Oral Tablet Citalopram Hydrobromide 2 0 MG Oral Tablet Citalopram Hydrobromide 20 MG Oral Tablet 03/06/2020 12:00:00 AM EDT aborted [facility] Furosemide 20 MG Oral Tablet [Lasix] Lasix 20 MG Oral Tablet Lasix 20 MG Oral Tablet 03/06/2020 12:00:00 AM EDT aborted furosemide 20 MG Oral Tablet [Lasix] [facility] ([facility]) Diltiazem Hydrochloride 30 MG Oral Tablet dilTIAZem HC l 30 MG Oral Tablet dilTIAZem HCl 30 MG Oral Tablet 03/06/2020 12:00:00 AM EDT aborted diltiazem hydrochloride 30 MG Oral Tablet [facility]) Aspercreme Lidocaine 4% External Patch Aspercreme Lidocaine 4% External Patch 03/06/2020 12:00:00 AM EDT aborted lidocaine 0.04 MG/MG Medicated Patch [facility] ([facility]) buspirone hydrochloride 5 MG Oral Tablet busPIRone HCl 5 MG Oral Tablet busPIRone HCl 5 MG Oral Tablet 03/06/2020 12:00:00 AM EDT 1 aborted buspirone hydrochloride 5 MG Oral Tablet [facility]) atorvastatin 20 MG Oral Tablet [Lipitor] Lipitor 20 MG Oral Tablet Lipitor 20 MG Oral Tablet 03/06/2020 12:00:00 AM EDT abort ed atorvastatin 20 MG Oral Tablet [Lipitor] [facility]) Levetiracetam 750 MG Oral Tablet [Keppra] Keppra 750 M G Oral Tablet Keppra 750 MG Oral Tablet 03/06/2020 12:00:00 AM EDT abo rted levetiracetam 750 MG Oral Tablet [Keppra] [facility]) gabapentin 300 MG Oral Capsule Gabapentin 300 MG Oral Capsule Gabapentin 300 MG Oral Capsule 03/06/2020 12:00:00 AM EDT 1 abort ed gabapentin 300 MG Oral Capsule [facility]) Acetaminophen 325 MG / Hydrocodone Karissa trate 5 MG Oral Tablet HYDROcodone- Acetaminophen 5-325 MG Oral Tablet HYDROcodone-Acetaminophen 5-325 MG Oral Tablet 03/04/2020 12:00:00 AM EDT 1 aborted acetaminophen 325 MG / hydrocodone bitartrate 5 MG Oral Tablet [facility]) pantoprazole 40 MG Delayed Release Oral Tablet pantoprazole (PROTONIX) 40 MG tablet pantoprazole (PROTONIX) 40 MG tablet 09/19/2019 12:00:00 AM EDT 40 mg Oral active Gastroesophageal Reflux Disease Take 1 tablet (40 mg total) by mouth daily [facility] Gastroesophageal Reflux Disease POLYETHYLENE GLYCOL 3350 142 MG/ML Oral Solution polyethylene glycol (GLYCOLAX) packet polyethylene glycol (GLYCOLAX) packet 09/19/2019 12:00:00 AM EDT 17 g Oral aborted Take 17 g by mouth d sariahy [facility] lidocaine (ASPERCREME) 4 % [facility] [id number] 09/19/2019 12:00:00 AM EDT 2 {patch} Transdermal active Place 2 patches on the skin daily [facility] Docusate Sodium 50 MG / sennosides, SNF 8.6 MG Oral Tablet senna-docusate (PERICOLACE) 8.6-50 MG senna-docusate (PERICOLACE) 8.6-50 MG 09/18/2019 12:00 :00 AM EDT 1 {tbl} Oral aborted Take 1 tablet by mouth nightly [facility] Ondansetron 4 MG Disintegrating Oral Tab let ondansetron (ZOFRAN-ODT) 4 MG disintegrating tablet ondansetron (ZOFRAN-ODT) 4 MG disintegrating tablet 09/18/2019 12:00:00 AM EDT 4 mg Oral active Take 1 tablet (4 mg total) by mouth every 6 (six) hours as needed for nausea [facility] ferric gluconate (FERRLECIT) 125 mg in sodium chloride 0.9% (NS) 100 mL IVPB 09/17/2019 11:00:00 AM EDT 125 mg Intravenous completed 125 mg, Intravenous, Administer over 60 Minutes, Once, Mon09/17/19 at 1100, For 1 dose
Give 48 hours after first dose. D/C if baseline iron Sat > 20%. Maximum 250mg per admission Med Message pharmacy if/when dose is needed
[facility] Medication administered onsite Bisacodyl 10 MG Rectal Suppository bisacodyl (DULCOLAX ) suppository 10 mg bisacodyl (DULCOLAX) suppository 10 mg 09/17/2019 09:00:00 AM EDT 10 mg Rectal active 10 mg, Rectal, Daily, First dose on Mon09/17/19 at 0900, Post- op
Hold for BM
[facility] Medication administered onsite rivaroxaban 20 MG Oral Tablet rivaroxaban (XARELTO) ta blet 20 mg rivaroxaban (XARELTO) tablet 20 mg 09/16/2019 05:00:00 PM EDT 20 mg Oral active 20 mg, Oral, Daily with dinner, First dose on 09/16/19 at 1700 [facility] Medication administered onsite POLYETHYLENE GLYCOL 3350 142 MG/ML Oral Solution polyethylene glycol (GLYCOLAX) packet 17 g polyethylene glycol (GLYCOLAX) packet 17 g 09/16/2019 09:00:00 AM EDT 17 g Oral active 17 g, Or al, Daily, First dose on Mon09/16/19 at 0900, Post-op
Start POD 1
[facility] Medication administered onsite Calcium Carbonate 1250 MG / Cholecalcife rol 200 UNT Oral Tablet calcium-vitamin D (OSCAL-500) 500-200 MG-UNIT per tablet 1 tablet calcium-vitamin D (OSCAL-500) 500-200 MG-UNIT per tablet 1 tablet 09/15/2019 09:00:00 PM EDT 1 {tbl } Oral active 1 tablet, Oral, 2 times daily, First dose on 09/15/19 at 2100, Post-op [facility] Medication administered onsite Docusate Sodium 50 MG / sennosides, SNF 8.6 MG Oral Tablet senna-docusate (PERICOLACE) 8.6-50 MG 2 tablet senna-docusate (PERICOLACE) 8.6-50 MG 2 tablet 09/15/2019 09:00:00 PM EDT 2 {tbl} Oral active 2 tablet, Oral, Nightly, First dose on 09/15/19 at 2100, Post-op
hold for loose stools
[facility] Medication administered onsite sodium chloride 0.9% (NS) bolus 250 mL [id number] 0 05:00:00 PM EDT 250 mL Intravenous completed 250 mL, In travenous, Administer over 1 Hours, Once, 09/15/19 at 1700, For 1 dose [facility] Medication administered onsite Vitamin B 12 1 MG/ML Injectable Solution cyanocobalami n injection 1,000 mcg cyanocobalamin injection 1,000 mcg 09/15/2019 04:00:00 PM EDT 10 00 ug Intramuscular completed 1,000 mcg, Intramuscular, Once, 09/15/19 at 1600, For 1 dose, Post-op
If not given pre-op
[facility] Medication administered onsite DAILY JESSA (THERAGRAN) 1 tablet [id number] 09/15/2019 04:00:00 PM EDT 1 {tbl} Oral active 1 tablet, Oral, Daily, First dose on 09/15/19 at 1600, Post-op [facility] Medication administered onsite Acetaminophen 500 MG Oral Tablet acetaminophen (TYLENO L) tablet 500 mg acetaminophen (TYLENOL) tablet 500 mg 09/15/2019 03:00:00 PM EDT 50 0 mg Oral active 500 mg, Oral, E very 8 hours (scheduled), First dose on 09/15/19 at 1500, Post-op [facility] Medication administered onsite sodium chloride 0.9% (NS) infusion [id number] 09/15/2019 03:00:00 P M EDT Intravenous active at 75 mL/hr, Intravenous, Continuous, Starting 09/15/19 at 1500, Post-op [facility] Medication administered onsite cefazolin (ANCEF) injection 2 [...] this medication through syringe adapter set ref [phone]. Flush line after use
[facility] Perioperative Pharmacoprophylaxis Medication administered onsite ondansetron (ZOFRAN-ODT) [...] 09/15/19 at 1434, Post-op [Order 2 End] [facility] Medication administered onsite Acetaminophen 325 MG / Hydrocodone Karissa trate 5 MG Oral Tablet HYDROcodone- acetaminophen (NORCO) 5-325 MG per tablet 0.5 tablet HYDROcodone-acetaminophen (NORCO) 5-325 MG per tablet 0.5 tablet 09/15/2019 02:34:50 PM EDT 0.5 {tbl} Oral active 0.5 tablet, Or al, Every 4 hours PRN, moderate pain (4-6), Starting 09/15/19 at 1434, For 7 days, Post-op [facility] Medication administered onsite fentaNYL Citrate (PF) (SUBLIMAZE) injection 25 mcg [id number] 09/15/2019 02:34:50 PM EDT 25 ug Intravenous active 25 mcg, Intravenous, Every 3 hours PRN, severe pain (7-10), Starting 09/15/19 at 1434, For 7 days, Post- op
For breakthrough pain not relieved by oral pain medication
[facility] Medication administered onsite Acetaminophen 325 MG / Hydrocodone Karissa trate 5 MG Oral Tablet HYDROcodone- acetaminophen (NORCO) 5-325 MG per tablet 1 tablet HYDROcodone-acetaminophen (NORCO) 5-325 MG per tablet 1 tablet 09/15/2019 02:34:50 PM EDT 1 { tbl} Oral active 1 tablet, Oral, Every 4 hours PRN, severe pain (7-10), Starting 09/15/19 at 1434, For 7 days, Post-op [facility] Medication administered onsite Mineral Oil 1000 MG/ML Enema mineral oil enema 1 enema mineral oil enema 1 enema 09/15/2019 02:34:50 PM EDT 1 {enema} Rectal active 1 enema, Rectal, Daily PRN, constipation, unrelieved by Miralax/MOM/Suppository, Starting 09/15/19 at 1434, Post-op
hold for loose stools
[facility] Medication administered onsite Magnesium Hydroxide 80 MG/ML Oral Suspen pema magnesium hydroxide (MILK OF MAGNESIA) 400 MG/5ML suspension 30 mL magnesium hydroxide (MILK OF MAGNESIA) 4 00 MG/5ML suspension 30 mL 09/15/2019 02:34:50 PM EDT 30 mL Oral active 30 mL, Oral, Daily PRN, constipation, Starting 09/15/19 at 1434, Post- op
hold for loose stools
[facility] Medication administered onsite Magnesium Chloride 0.69169 MEQ/ML / Pota ssium Chloride 0.0497 MEQ/ML / Sodium Acetate 0.0163 MEQ/ML / Sodium Chloride 0.0899 MEQ/ML / Sodium gluconate 5.02 MG/ML Injectable Solution [Normosol-R] electrolyte-R (NORMOSOL-R/PLASMALYTE-R) solution electrolyte-R (NORMOSOL-R/PLASMALYTE-R) solution 09/14 11:00:00 AM EDT Intravenous active at 1 20 mL/hr, Intravenous, Continuous, Starting Rising 09/15/19 at 1100, PACU (only) [facility] Medication administered onsite Pramipexole dihydrochloride 1 MG Oral Tablet pramipexo le (MIRAPEX) tablet 1 mg pramipexole (MIRAPEX) tablet 1 mg 09/14/2019 09:00:00 PM EDT 1 mg Oral active 1 mg, Oral, 2 times daily, First dose on 09/14/19 at 2100 [facility] Medication administered onsite Docusate Sodium 50 MG / sennosides, SNF 8.6 MG Oral Tablet senna-docusate (PERICOLACE) 8.6-50 MG 2 tablet senna-docusate (PERICOLACE) 8.6-50 MG 2 tablet 09/14/2019 09:00:00 PM EDT 2 {tbl} Oral aborted 2 tablet, Oral, Nightly, First dose on 09/14/19 at 2100
hold for loose stools
[facility] Medication administered onsite atorvastatin 40 MG Oral Tablet atorvastatin (LIPITOR) tablet 40 mg atorvastatin (LIPITOR) tablet 40 mg 09/14/2019 09:00:00 PM EDT 40 mg Oral active 40 mg, Oral, Nightly, First dose on 09/14/19 at 2100 [facility] Medication administered onsite duloxetine 30 MG Delayed Release Oral Ca psule DULoxetine (CYMBALTA) DR capsule 30 mg DULoxetine (CYMBALTA) DR capsule 30 mg 09/14/2019 05:00:00 PM EDT 30 mg Oral active 30 mg, Oral, 2 times daily, First dose on 09/14/19 at 1700 [facility] Medication administered onsite normal saline flush 0.9 % injection 3 mL [id number] 09/14/2019 02:00:00 PM EDT 3 mL Intravenous aborted 3 mL , Intravenous, PROTOCOL, First dose on 09/14/19 at 1400
flush per protocol, D/C Main IV fluid if appropriate
[facility] Medication administered onsite Furosemide 20 MG Oral Tablet furosemide (LASIX) tablet 20 mg furosemide (LASIX) tablet 20 mg 09/14/2019 09:00:00 AM EDT 20 mg Oral activ e 20 mg, Oral, LOOPBID, First dose on 09/14/19 at 0900 [facility] Medication administered onsite Levetiracetam 500 MG Oral Tablet levETIRAcetam (KEPPRA ) tablet 750 mg levETIRAcetam (KEPPRA) tablet 750 mg 09/14/2019 09:00:00 AM EDT 750 m g Oral active 750 mg, Oral, 2 times daily, First dose on 09/14/19 at 0900 [facility] Medication administered onsite pantoprazole 40 MG Delayed Release Oral Tablet pantoprazole (PROTONIX) EC tablet 40 mg pantoprazole (PROTONIX) EC tablet 40 mg 09/14/2019 09:00:00 AM E DT 40 mg Oral active Gastroesophageal Reflux Diseas e 40 mg, Oral, Daily, Indications: Gastroesophageal Reflux Disease, First dose on 09/14/19 at 0900 [facility] Gastroesophageal Reflux Disease Medication administered onsite lidocaine (ASPERCREME) 4 % 2 patch [id number] 09/14/2019 09:00:00 AM EDT 2 {patch} Transdermal active 2 patch, Rodriguez sdermal, Administer over 12 Hours, Daily, First dose on 09/14/19 at 0900
On for 12 hours, off for 12 hours.Remove immediately prior to surgery before pre op CHG wash
[facility] Medication administered onsite Citalopram 20 MG Oral Tablet citalopram (CeleXA) table t 20 mg citalopram (CeleXA) tablet 20 mg 09/14/2019 09:00:00 AM EDT 20 mg Oral active 20 mg, Oral, Daily, First dose on 09/14/19 at 0900 [facility] Medication administered onsite chlorhexidine gluconate 1.2 MG/ML [...] spit, utilize suction toothbrush with chlorhexidine rinse
[facility] Medication administered onsite normal saline flush 0.9 % injection 3 mL [id number] 09/14/2019 06:00:00 AM EDT 3 mL Intravenous active 3 mL , Intravenous, PROTOCOL, First dose on 09/14/19 at 0600
flush per protocol, D/C Main IV fluid if appropriate
[facility] Medication administered onsite gabapentin 600 MG Oral Tablet gabapentin (NEURONTIN) t ablet 300 mg gabapentin (NEURONTIN) tablet 300 mg 09/14/2019 06:00:00 AM EDT 300 mg Oral active 300 mg, Oral, 3 times daily, First dose on 09/14/19 at 0600 [facility] Medication administered onsite buspirone hydrochloride 5 MG Oral Tablet busPIRone (BU SPAR) tablet 5 mg busPIRone (BUSPAR) tablet 5 mg 09/14/2019 06:00:00 AM EDT 5 mg Or al active 5 mg, Oral, 3 times daily, First dose on 09/14/19 at 0600 [facility] Medication administered onsite Diltiazem Hydrochloride 30 MG Oral Tablet diltiazem (C ARDIZEM) tablet 30 mg diltiazem (CARDIZEM) tablet 30 mg 09/14/2019 06:00:00 AM EDT 30 mg Oral active 30 mg, Oral, Every 6 hours (scheduled), First dose on 09/14/19 at 0600 [facility] Medication administered onsite Docusate Sodium 50 MG / sennosides, SNF 8.6 MG Oral Tablet senna-docusate (PERICOLACE) 8.6-50 MG 2 tablet senna-docusate (PERICOLACE) 8.6-50 MG 2 tablet 09/14/2019 01:00:00 AM EDT 2 {tbl} Oral aborted 2 tablet, Oral, Nightly, First dose on 09/14/19 at 0100
hold for loose stools
[facility] Medication administered onsite ferric gluconate (FERRLECIT) 125 mg in sodium chloride 0.9% (NS) 100 mL IVPB 09/14/2019 12:00:00 AM EDT 125 mg Intravenous completed 125 mg, Intravenous, Administer over 60 Minutes, Once, 09/14/19 at 0000, For 1 dose
On day of admission (day of surgery) DC if iron Sat > 20%Med [facility] pharmacy if/when dose is needed
[facility] Medication administered onsite Vitamin B 12 1 MG/ML Injectable Solution cyanocobalami n injection 1,000 mcg cyanocobalamin injection 1,000 mcg 09/14/2019 12:00:00 AM EDT 10 00 ug Intramuscular completed 1,000 mcg, Intramuscular, Once, 09/14/19 at 0000, For 1 dose [facility] Medication administered onsite quetiapine 25 MG Oral Tablet QUEtiapine (SEROquel) tab let 25 mg QUEtiapine (SEROquel) tablet 25 mg 09/14/2019 12:00:00 AM EDT 25 mg Oral active 25 mg, Oral, Nightly, First dose on 09/14/19 at 0000 [facility] Medication administered onsite Acetaminophen 500 MG Oral Tablet acetaminophen (TYLENO L) tablet 500 mg acetaminophen (TYLENOL) tablet 500 mg 09/14/2019 12:00:00 AM EDT 50 0 mg Oral aborted 500 mg, Oral, Every 8 sara rs, First dose on 09/14/19 at 0000 [facility] Medication administered onsite normal saline flush 0.9 % injection 3 mL [id number] 09/14/2019 12:00:00 AM EDT 3 mL Intravenous aborted 3 mL , Intravenous, Every 8 hours (scheduled), First dose on 09/14/19 at 0000
flush per protocol, D/C Main IV fluid if appropriate
[facility] Medication administered onsite haloperidol lactate (HALDOL) injection 5 mg [id number] 09/13/2019 11:53:07 PM EDT 5 mg Intramuscular active 5 mg, Intramuscular, Every 6 hours PRN, agitation, delirium, aggression , Starting Mon09/13/19 at 2353 [facility] Medication administered onsite Acetaminophen 325 MG / Hydrocodone Karissa trate 5 MG Oral Tablet HYDROcodone- acetaminophen (NORCO) 5-325 MG per tablet 1 tablet HYDROcodone-acetaminophen (NORCO) 5-325 MG per tablet 1 tablet 09/13/2019 11:36:48 PM EDT 1 { tbl} Oral aborted 1 tablet, Oral, Every 4 hours PRN, severe pain (7-10), Starting Mon09/13/19 at 2336, For 7 days [facility] Medication administered onsite fentaNYL Citrate (PF) (SUBLIMAZE) injection 25 mcg [id number] 09/13/2019 11:36:48 PM EDT 25 ug Intravenous aborted 25 mcg, Intravenous, Every 3 hours PRN, for severe (7-10) breakthrough pain not relieved by oral pain medication, Starting Mon09/13/19 at 2336, For 7 days [facility] Medication administered onsite 2 ML Metoclopramide 5 MG/ML Prefilled Sy ringe metoclopramide (REGLAN) injection 10 mg metoclopramide (REGLAN) injection 10 mg 09/13/2019 11:36:20 PM E DT 10 mg Intravenous active 10 mg, I ntravenous, Every 6 hours PRN, for Nausea/Vomiting not relieved by zofran, Starting Mon09/13/19 at 2336 [facility] Medication administered onsite Citalopram 40 MG Oral Tablet Citalopram Hydrobromide 4 0 MG Oral Tablet (CELEXA) Citalopram Hydrobromide 40 MG Oral Tablet (CELEXA) 08/21/2019 12:00:00 AM EDT 40 mg Oral active Take 1 tab let by mouth every evening HOLD UNTIL 08/20 WHEN LINEZOLID WILL BE COMPLETED. [facility] Melatonin 3 MG Oral Tablet Melatonin 3 MG Oral Tablet 2019 12:00:00 AM EDT 3 mg Oral active Take 1 tablet by mouth nightly [facility] Oxycodone Hydrochloride 5 MG Oral Tablet oxyCODONE HCl 5 MG Oral Tablet (ROXICODONE) oxyCODONE HCl 5 MG Oral Tablet (ROXICODONE) 08/15/2019 12:00:00 AM EDT 5 mg Oral active Take 1 t ablet by mouth every 4 (four) hours as needed for up to 3 days, Max Daily Dose: 30 mg [facility] linezolid 600 MG Oral Tablet Linezolid 600 MG Oral Tab let (ZYVOX) Linezolid 600 MG Oral Tablet (ZYVOX) 08/15/2019 12:00:00 AM EDT 600 mg Oral active Take 1 tablet by mouth every 12 (twelve) hours for 6 days [facility] linezolid 600 MG Oral Tablet linezolid (ZYVOX) tablet 600 mg linezolid (ZYVOX) tablet 600 mg 08/13/2019 09:00:00 PM EDT 600 mg Oral acti ve 600 mg, Oral, Every 12 hours Standard (2 times per day), First dose on Mon08/13/19 at 2100, For 5 days
Discouraged Uses: VRE colonization of the stool, urine, respiratory tract, wounds or drains
[facility] Medication administered onsite Acetaminophen 325 MG Oral Tablet acetaminophen (TYLENO L) tablet 650 mg acetaminophen (TYLENOL) tablet 650 mg 08/13/2019 12:27:29 PM EDT 65 0 mg Oral completed 650 mg, Oral, E very 6 hours PRN, Mild Pain (Pain Scale Score 1-3), Starting Mon08/13/19 at 1227, For 2 days
Maximum daily dose of acetaminophen is 3,000 mg from all sources in 24 hours.
[facility] Medication administered onsite Polyvinyl Alcohol 0.014 ML/ML Ophthalmic Solution polyvinyl alcohol (LIQUIFILM TEARS) 1.4 % ophthalmic solution 1 drop polyvinyl alcohol (LIQUIFILM TEARS) 1.4 % ophthalmic solution 1 drop 08/12/2019 03:11:43 AM EDT 1 [drp] Both Eyes active 1 drop, Both Eyes, P RN, Dry Eyes, Starting Mon08/12/19 at 0311, For 30 days [facility] Medication administered onsite duloxetine 20 MG Delayed Release Oral Ca psule DULoxetine (CYMBALTA) DR capsule 20 mg DULoxetine (CYMBALTA) DR capsule 20 mg 08/10/2019 08:00:00 PM EDT 20 mg Oral active 20 mg, Oral, 2 Times Daily, First dose (after last modification) on 08/10/19 at 2000, For 57 doses
Do not crush or chew
[facility] Medication administered onsite 300 ML linezolid 2 MG/ML Injection linez olid (ZYVOX) 600 MG/300ML IVPB (premix) 600 mg linezolid (ZYVOX) 600 MG/300ML IVPB (premix) 600 mg 07:00:00 PM EDT 600 mg Intravenous aborted 600 mg, Intravenous, Administer over 60 Minutes, Every 12 hours, First dose on 08/10/19 at 1900, For 10 doses [facility] Medication administered onsite Piperacillin 3000 MG / tazobactam 375 MG Injection piperacillin-tazobactam (ZOSYN) IVPB 3.375 g (premix) piperacillin-tazobactam (ZOSYN) IVPB 3.3 75 g (premix) 08/10/2019 06:00:00 PM EDT 3.375 g Intravenous abo rted 3.375 g, Intravenous, Administer over 4 Hours, Every 8 hours, First dose on Mon08/10/19 at 1800, For 14 doses [facility] Medication administered onsite pantoprazole 40 MG Delayed Release Oral Tablet pantoprazole (PROTONIX) EC tablet 40 mg pantoprazole (PROTONIX) EC tablet 40 mg 08/10/2019 07:30:00 AM E DT 40 mg Oral active 40 mg, Ora l, Before Breakfast, First dose on Mon08/10/19 at 0730, For 30 days [facility] Medication administered onsite sennosides, SNF 8.6 MG Oral Tablet senna 8.6 MG 1 tablet sen na 8.6 MG 1 tablet 08/09/2019 10:00:00 PM EDT 1 {tbl} Oral active 1 tablet, Oral, Nightly, First dose on Mon08/09/19 at 2200, For 30 days [facility] Medication administered onsite atorvastatin 40 MG Oral Tablet atorvastatin (LIPITOR) tablet 40 mg atorvastatin (LIPITOR) tablet 40 mg 08/09/2019 09:00:00 PM EDT 40 mg Oral active 40 mg, Oral, Every evening, First dose on Mon08/09/19 at 2100, For 30 days [facility] Medication administered onsite Citalopram 20 MG Oral Tablet citalopram (CELEXA) table t 40 mg citalopram (CELEXA) tablet 40 mg 08/09/2019 08:00:00 PM EDT 40 mg Oral aborted 40 mg, Oral, Every evening, First dose on Mon08/09/19 at 2000, For 30 days [facility] Medication administered onsite Pramipexole dihydrochloride 1 MG Oral Tablet pramipexo le (MIRAPEX) tablet 1 mg pramipexole (MIRAPEX) tablet 1 mg 08/09/2019 08:00:00 PM EDT 1 mg Oral active 1 mg, Oral, 2 Times Daily, First dose on Mon08/09/19 at 2000, For 30 days [facility] Medication administered onsite quetiapine 25 MG Oral Tablet QUEtiapine (SEROquel) tab let 25 mg QUEtiapine (SEROquel) tablet 25 mg 08/09/2019 08:00:00 PM EDT 25 mg Oral active 25 mg, Oral, Every evening, First dose on Mon08/09/19 at 2000, For 30 days [facility] Medication administered onsite rivaroxaban 10 MG Oral Tablet rivaroxaban (XARELTO) ta blet 20 mg rivaroxaban (XARELTO) tablet 20 mg 08/09/2019 06:00:00 PM EDT 20 mg Oral active 20 mg, Oral, Daily with Dinner, First dose on Mon08/09/19 at 1800, For 30 days [facility] Medication administered onsite Furosemide 20 MG Oral Tablet furosemide (LASIX) tablet 20 mg furosemide (LASIX) tablet 20 mg 08/09/2019 03:00:00 PM EDT 20 mg Oral activ e 20 mg, Oral, 2 Times Daily, First dose on Mon08/09/19 at 1500, For 30 days [facility] Medication administered onsite Diltiazem Hydrochloride 30 MG Oral Tablet dilTIAZem (C ARDIZEM) tablet 30 mg dilTIAZem (CARDIZEM) tablet 30 mg 08/09/2019 02:00:00 PM EDT 30 mg Oral active 30 mg, Oral, Three Times Daily Standard, First dose on Mon08/09/19 at 1400, For 30 days
Check vital signs before administering
[facility] Medication administered onsite buspirone hydrochloride 5 MG Oral Tablet busPIRone (BU SPAR) tablet 5 mg busPIRone (BUSPAR) tablet 5 mg 08/09/2019 02:00:00 PM EDT 5 mg Or al active 5 mg, Oral, Three T imes Daily Standard, First dose on Mon08/09/19 at 1400, For 30 days [facility] Medication administered onsite duloxetine 30 MG Delayed Release Oral Ca psule DULoxetine (CYMBALTA) DR capsule 30 mg DULoxetine (CYMBALTA) DR capsule 30 mg 08/09/2019 11:30:00 AM EDT 30 mg Oral aborted 30 mg, Oral, 2 Times Daily, First dose (after last modification) on Mon08/09/19 at 1130, For 30 days
Do not crush or chew
[facility] Medication administered onsite furosemide (LASIX) injection 20 mg [id number] 08/09/2019 10:45:00 AM EDT 20 mg Intravenous completed 20 mg, I ntravenous, Once, Mon08/09/19 at 1045, For 1 dose [facility] Medication administered onsite gabapentin 300 MG Oral Capsule gabapentin (NEURONTIN) capsule 300 mg gabapentin (NEURONTIN) capsule 300 mg 08/09/2019 10:30:00 AM EDT 300 mg Oral active 300 mg, Oral, Three Times D aily Standard, First dose (after last modification) on Mon08/09/19 at 1030, For 30 days [facility] Medication administered onsite atorvastatin 40 MG Oral Tablet atorvastatin (LIPITOR) tablet 80 mg atorvastatin (LIPITOR) tablet 80 mg 08/09/2019 09:00:00 AM EDT 80 mg Oral aborted 80 mg, Oral, Daily Standard, First dose on Mon08/09/19 at 0900, For 9 days [facility] Medication administered onsite 0.4 ML Enoxaparin sodium 100 MG/ML Prefi lled Syringe enoxaparin sodium (LOVENOX) injection 40 mg enoxaparin sodium (LOVENOX) injection 40 mg 08/09/2019 09:00:00 AM EDT 40 mg Subcutaneous aborted 40 mg, Subcutaneous, Daily Standard, First dose on Mon08/09/19 at 0900, For 30 days [facility] Medication administered onsite Melatonin 3 MG Oral Tablet melatonin tablet 3 mg melatonin t ablet 3 mg 08/08/2019 10:00:00 PM EDT 3 mg Oral active 3 mg, Oral, Nightly, First dose on Mon08/08/19 at 2200, For 30 days [facility] Medication administered onsite carvedilol 3.125 MG Oral Tablet carvedilol (COREG) tab let 3.125 mg carvedilol (COREG) tablet 3.125 mg 08/08/2019 09:00:00 PM EDT 3.125 mg Oral aborted 3.125 mg, Oral, 2 Times Carson y, First dose on Mon08/08/19 at 2100, For 30 days
Check vital signs before administering
[facility] Medication administered onsite vancomycin (VANCOCIN) in D5W infusion 1,000 mg/200 mL (premi x) [id number] 08/08/2019 09:00:00 PM EDT 1000 mg Intravenous aborted 1,000 mg, Intravenous, Administer over 60 Minutes, Every 12 hours, First dose (after last modification) on Mon08/08/19 at 2100, For 7 doses [facility] Medication administered onsite Levetiracetam 250 MG Oral Tablet levETIRAcetam (KEPPRA ) tablet 750 mg levETIRAcetam (KEPPRA) tablet 750 mg 08/08/2019 09:00:00 PM EDT 750 m g Oral active 750 mg, Oral, 2 Times Daily, First dose on Aggie 08/08/19 at 2100, For 30 days [facility] Medication administered onsite Cefazolin 2000 MG Injection ceFAZolin (ANCEF) IVPB 2 g in dextrose (premix) ceFAZolin (ANCEF) IVPB 2 g in dextrose (premix) 08/08/2019 07:00:00 PM EDT 2 g Intravenous aborted 2 g, Int ravenous, Administer over 30 Minutes, Every 8 hours, First dose on Aggie 08/08/19 at 1900, For 7 days [facility] Medication administered onsite Bisacodyl 10 MG Rectal Suppository bisacodyl (DULCOLAX ) suppository 10 mg bisacodyl (DULCOLAX) suppository 10 mg 08/08/2019 06:14:41 PM EDT 10 mg Rectal active 10 mg, Rectal, Every 72 hours PRN, Constipation, Starting Aggie 08/08/19 at 1814, For 30 days
Hold if patient has had BM within the past 2 days.
[facility] Medication administered onsite sennosides, SNF 35.2 MG/ML Oral Solution senna (SENOKO T) syrup 10 mL senna (SENOKOT) syrup 10 mL 08/08/2019 06:14:41 PM EDT 10 mL Oral active 10 mL, Oral, Nightly PRN, Constipation, Starting Aggie 08/08/19 at 1814, For 30 days [facility] Medication administered onsite Acetaminophen 325 MG Oral Tablet acetaminophen (TYLENO L) tablet 650 mg acetaminophen (TYLENOL) tablet 650 mg 08/08/2019 05:45:00 PM EDT 65 0 mg Oral completed 650 mg, Oral, E very 6 hours, First dose on Aggie 08/08/19 at 1745, For 2 days
Maximum daily dose of acetaminophen is 3,000 mg from all sources in 24 hours.
[facility] Medication administered onsite Acetaminophen 325 MG / Hydrocodone Karissa trate 5 MG Oral Tablet HYDROcodone- acetaminophen (LORTAB) 5-325 MG per tablet 1 tablet HYDROcodone-acetaminophen (LORTAB) 5-325 MG per tablet 1 tablet 08/08/2019 05:32:36 PM EDT 1 {tbl} Oral aborted 1 tablet, Oral, Every 6 hours PRN, Moderate Pain (Pain Scale Score 4-6), Severe Pain (Pain Scale Score 7-10), Starting [facility] 08/08/19 at 1732, For 3 days
Maximum daily dose of acetaminophen is 3,000 mg from all sources in 24 hours.
[facility] Medication administered onsite gabapentin 300 MG Oral Capsule Gabapentin 300 MG Oral Capsule (NEURONTIN) Gabapentin 300 MG Oral Capsule (NEURONTIN) 08/05/2019 12:00:00 AM EDT 300 mg Oral active Take 300 mg by mouth Three times daily [facility] Furosemide 20 MG Oral Tablet Furosemide 20 MG Oral Tab let (LASIX) Furosemide 20 MG Oral Tablet (LASIX) 08/05/2019 12:00:00 AM EDT 20 mg Oral active Take 20 mg by mouth Two Times Daily [facility] buspirone hydrochloride 5 MG Oral Tablet busPIRone HCl 5 MG Oral Tablet (BUSPAR) busPIRone HCl 5 MG Oral Tablet (BUSPAR) 08/05/2019 12:00:00 AM EDT 5 mg Oral active Take 5 mg by mouth Three times daily [facility] Omeprazole 20 MG Delayed Release Oral Ca psule Omeprazole 20 MG Oral Capsule Delayed Release (PriLOSEC) Omeprazole 20 MG Oral Capsule Delayed Re lease (PriLOSEC) 08/05/2019 12:00:00 AM EDT 20 mg Oral active Take 20 mg by mouth daily [facility] Furosemide 20 MG Oral Tablet [Lasix] Lasix 20 MG Oral Tablet Lasix 20 MG Oral Tablet 08/05/2019 12:00:00 AM EDT aborted furosemide 20 MG Oral Tablet [Lasix] [place] ([facility]) Pramipexole dihydrochloride 1 MG Oral Ta blet Pramipexole Dihydrochloride 1 MG Oral Tablet (MIRAPEX) Pramipexole Dihydrochloride 1 MG Oral Tablet (MIRAPEX) 08/05/2019 12:00:00 AM EDT 1 mg Oral active Take 1 mg by mouth Two Times Daily [facility] Furosemide 20 MG Oral Tablet [Lasix] Lasix 20 MG Oral Tablet Lasix 20 MG Oral Tablet 07/29/2019 12:00:00 AM EST 1 aborted furosemide 20 MG Oral Tablet [Lasix] LAKESHIA ([facility]) buspirone hydrochloride 5 MG Oral Tablet busPIRone HCl 5 MG Oral Tablet busPIRone HCl 5 MG Oral Tablet 07/29/2019 12:00:00 AM EST 1 aborted buspirone hydrochloride 5 MG Oral Tablet LAKESHIA ([facility]) rivaroxaban 15 MG Oral Tablet [Xarelto] Xarelto 15 MG Oral Tablet Xarelto 15 MG Oral Tablet 07/29/2019 12:00:00 AM EST aborte d rivaroxaban 15 MG Oral Tablet [Xarelto] LAKESHIA ([facility]) Omeprazole 20 MG Delayed Release Oral Ca psule Omeprazole 20 MG Oral Capsule Delayed Release Omeprazole 20 MG Oral Capsule Delayed Release 07/29/19 12:00:00 AM EST 1 aborted omeprazole 20 MG Delayed Release Oral Capsule [facility]) Furosemide 20 MG Oral Tablet [Lasix] Lasix 20 MG Oral Tablet Lasix 20 MG Oral Tablet 07/29/2019 12:00:00 AM EST aborted furosemide 20 MG Oral Tablet [Lasix] [place] ([facility]) gabapentin 300 MG Oral Capsule Gabapentin 300 MG Oral Capsule Gabapentin 300 MG Oral Capsule 07/29/2019 12:00:00 AM EST 1 abort ed gabapentin 300 MG Oral Capsule [place] ([facility]) Levofloxacin 500 MG Oral Tablet [Levaquin] Levaquin 50 0 MG Oral Tablet Levaquin 500 MG Oral Tablet 07/22/2019 12:00:00 AM EST 1 aborted levofloxacin 500 MG Oral Tablet [Levaquin] LAKESHIA ([facility]) Levetiracetam 750 MG Oral Tablet levETIRAcetam 750 MG Oral Tablet (KEPPRA) levETIRAcetam 750 MG Oral Tablet (KEPPRA) 07/09/2019 12:00:00 AM EST 750 mg Oral active Take 750 mg by mouth Two Times Daily [facility] duloxetine 30 MG Delayed Release Oral Ca psule DULoxetine HCl 30 MG Oral Capsule Delayed Release Particles (CYMBALTA) DULoxetine HCl 30 MG Oral Capsule Delaye d Release Particles (CYMBALTA) 07/09/2019 12:00:00 AM EST 30 mg Oral active Take 30 mg by mouth Two Times Daily [facility] Diltiazem Hydrochloride 30 MG Oral Table t dilTIAZem HCl 30 MG Oral Tablet (CARDIZEM) dilTIAZem HCl 30 MG Oral Tablet (CARDIZEM) 07/09/2019 12:00:00 AM EST 30 mg Oral active Take 30 mg by jennifer th Three times daily [facility] rivaroxaban 20 MG Oral Tablet [Xarelto] Xarelto 20 MG Oral Tablet Xarelto 20 MG Oral Tablet 07/09/2019 12:00:00 AM EST 20 mg Oral active Take 20 mg by mouth daily with dinner [facility] Citalopram 40 MG Oral Tablet Citalopram Hydrobromide 4 0 MG Oral Tablet (CELEXA) Citalopram Hydrobromide 40 MG Oral Tablet (CELEXA) 07/09/2019 12:00:00 AM EST 40 mg Oral aborted Take 40 mg by mouth ever y evening [facility] atorvastatin 40 MG Oral Tablet Atorvastatin Calcium 40 MG Oral Tablet (LIPITOR) Atorvastatin Calcium 40 MG Oral Tablet (LIPITOR) 07/09/2019 12:00:00 AM EST 40 mg Oral active Take 40 mg by mouth ever y [facility] quetiapine 25 MG Oral Tablet QUEtiapine Fumarate 25 MG Oral Tablet (SEROquel) QUEtiapine Fumarate 25 MG Oral Tablet (SEROquel) 07/09/2019 12:00:00 AM EST 25 mg Oral active Take 25 mg by mouth ever y [facility] Acetaminophen 325 MG / Hydrocodone Karissa trate 5 MG Oral Tablet HYDROcodone- Acetaminophen 5-325 MG Oral Tablet HYDROcodone-Acetaminophen 5-325 MG Oral Tablet 07/08/2019 12:00:00 AM EST 1 aborted acetaminophen 325 MG / hydrocodone bitartrate 5 MG Oral Tablet [place] ([facility]) Acetaminophen 325 MG / Hydrocodone Karissa trate 5 MG Oral Tablet HYDROcodone- Acetaminophen 5-325 MG Oral Tablet (LORTAB) HYDROcodone-Acetaminophen 5-325 MG Oral Tablet (LORTAB) 07/08/2019 12:00:00 AM EST 1 {tbl} Oral active Take 1 tablet by mouth Three times daily as needed [facility] rivaroxaban 20 MG Oral Tablet [Xarelto] Xarelto 20 MG Oral Tablet Xarelto 20 MG Oral Tablet 07/08/2019 12:00:00 AM EST 1 aborte d rivaroxaban 20 MG Oral Tablet [Xarelto] [place] ([facility]) rivaroxaban 20 MG Oral Tablet [Xarelto] Xarelto 20 MG Oral Tablet Xarelto 20 MG Oral Tablet 06/17/2019 12:00:00 AM EST 1 aborte d rivaroxaban 20 MG Oral Tablet [Xarelto] [place] ([facility]) Pramipexole dihydrochloride 1 MG Oral Ta blet Pramipexole Dihydrochloride 1 MG Oral Tablet Pramipexole Dihydrochloride 1 MG Oral Tablet 0 12:00:00 AM EST aborted pramipexole dihy drochloride 1 MG Oral Tablet [facility]) quetiapine 50 MG Oral Tablet QUEtiapine Fumarate 50 MG Oral Tablet QUEtiapine Fumarate 50 MG Oral Tablet 06/06/2019 12:00:00 AM EST aborted quetiapine 50 MG Oral Tablet [facility]) Citalopram 40 MG Oral Tablet Citalopram Hydrobromide 4 0 MG Oral Tablet Citalopram Hydrobromide 40 MG Oral Tablet 06/06/2019 12:00:00 AM EST aborted citalopram 40 MG Oral Tablet [facility]) Omeprazole 20 MG Delayed Release Oral Ca psule Omeprazole 20 MG Oral Capsule Delayed Release Omeprazole 20 MG Oral Capsule Delayed Release 05/27/20 12:00:00 AM EST 1 aborted omeprazole 20 MG Delayed Release Oral Capsule [facility]) HM Senna 8.6 MG Oral Tablet HM Senna 8.6 MG Oral Tablet 04/30 12:00:00 AM EST 1 aborted HM Senna [place] ([facility]) gabapentin 300 MG Oral Capsule Gabapentin 300 MG Oral Capsule Gabapentin 300 MG Oral Capsule 05/27/2019 12:00:00 AM EST 1 abort ed gabapentin 300 MG Oral Capsule [facility]) Levetiracetam 750 MG Oral Tablet levETIRAcetam 750 MG Oral Tablet levETIRAcetam 750 MG Oral Tablet 05/27/2019 12:00:00 AM EST aborted levetiracetam 750 MG Oral Tablet [facility]) Diltiazem Hydrochloride 30 MG Oral Tablet dilTIAZem HC l 30 MG Oral Tablet dilTIAZem HCl 30 MG Oral Tablet 05/27/2019 12:00:00 AM EST 1 aborted diltiazem hydrochloride 30 MG Oral Tablet LAKESHIA ([facility]) buspirone hydrochloride 5 MG Oral Tablet busPIRone HCl 5 MG Oral Tablet busPIRone HCl 5 MG Oral Tablet 05/27/2019 12:00:00 AM EST 1 aborted buspirone hydrochloride 5 MG Oral Tablet [facility]) Acetaminophen 325 MG / Hydrocodone Karissa trate 5 MG Oral Tablet HYDROcodone- Acetaminophen 5-325 MG Oral Tablet HYDROcodone-Acetaminophen 5-325 MG Oral Tablet 05/27/2019 12:00:00 AM EST aborted acetaminophen 325 MG / hydrocodone bitartrate 5 MG Oral Tablet [facility]) Acetaminophen 325 MG / Hydrocodone Karissa trate 5 MG Oral Tablet HYDROcodone- Acetaminophen 5-325 MG Oral Tablet HYDROcodone-Acetaminophen 5-325 MG Oral Tablet 05/27/2019 12:00:00 AM EST 1 aborted acetaminophen 325 MG / hydrocodone bitartrate 5 MG Oral Tablet [facility]) Acetaminophen 325 MG Oral Tablet [Tylenol] Tylenol 325 MG Oral Tablet Tylenol 325 MG Oral Tablet 05/27/2019 12:00:00 AM EST aborted acetaminophen 325 MG Oral Tablet [Tylenol] [facility]) rivaroxaban 20 MG Oral Tablet [Xarelto] Xarelto 20 MG Oral Tablet Xarelto 20 MG Oral Tablet 05/27/2019 12:00:00 AM EST 1 aborte d rivaroxaban 20 MG Oral Tablet [Xarelto] [facility]) Furosemide 20 MG Oral Tablet [Lasix] Lasix 20 MG Oral Tablet Lasix 20 MG Oral Tablet 05/27/2019 12:00:00 AM EST aborted furosemide 20 MG Oral Tablet [Lasix] [facility]) duloxetine 30 MG Delayed Release Oral Ca psule [Cymbalta] Cymbalta 30 MG Oral Capsule Delayed Release Particles Cymbalta 30 MG Oral Capsule Delayed Rele ase Particles 05/27/2019 12:00:00 AM EST aborted duloxetine 30 MG Delayed Release Oral Capsule [Cymbalta] [place] ([facility]) atorvastatin 40 MG Oral Tablet Atorvastatin Calcium 40 MG Oral Tablet Atorvastatin Calcium 40 MG Oral Tablet 05/27/2019 12:00:00 AM EST 1 aborted atorvastatin 40 MG [facility]t [facility] Citalopram 20 MG Oral Tablet Citalopram Hydrobromide 2 0 MG Oral Tablet Citalopram Hydrobromide 20 MG Oral Tablet 05/27/2019 12:00:00 AM EST 1 aborted citalopram 20 MG Oral Tablet [facility] sennosides, SNF 35.2 MG/ML Oral Solution senna (SENOKO T) 176 MG/5ML SYRP syrup senna (SENOKOT) 176 MG/5ML SYRP syrup 12/07/2016 12:00:00 AM EDT 10 m L Oral aborted Take 10 mLs by mouth nightly as needed [facility] Warfarin Sodium 4 MG Oral Tablet warfarin (COUMADIN) 4 MG tablet warfarin (COUMADIN) 4 MG tablet 12/07/2016 12:00:00 AM EDT 4 mg Oral aborted Take 1 tablet by mouth daily [facility] Levetiracetam 100 MG/ML Oral Solution le vETIRAcetam (KEPPRA) 100 MG/ML oral solution levETIRAcetam (KEPPRA) 100 MG/ML oral solution 017 12:00:00 AM EDT 750 mg Oral aborted Take 7.5 mLs by mouth Two Times Daily [facility] Diltiazem Hydrochloride 30 MG Oral Tablet dilTIAZem (C ARDIZEM) 30 MG tablet dilTIAZem (CARDIZEM) 30 MG tablet 12/07/2016 12:00:00 AM EDT 30 mg Oral aborted Take 1 tablet by mouth every 6 ( six) hours [facility] pantoprazole (PROTONIX) 2 mg/mL SUSP oral suspension 12/07/2016 12:00:00 AM EDT 40 mg Per G Tube aborted 20 mL s by Per G Tube route every morning before breakfast [facility] Melatonin 3 MG Oral Tablet melatonin 3 MG tablet melatonin 3 MG tablet 12/07/2016 12:00:00 AM EDT 3 mg Oral aborted Take 1 tablet by mouth nightly [facility] atorvastatin 80 MG Oral Tablet atorvastatin (LIPITOR) 80 MG tablet atorvastatin (LIPITOR) 80 MG tablet 12/07/2016 12:00:00 AM EDT 80 mg Oral aborted Take 1 tablet by mouth daily [facility] Citalopram 20 MG Oral Tablet Citalopram Hydrobromide 2 0 MG Oral Tablet (CELEXA) Citalopram Hydrobromide 20 MG Oral Tablet (CELEXA) 20 mg Oral aborted Take 20 mg by mouth daily [facility] atorvastatin 80 MG Oral Tablet Atorvastatin Calcium 80 MG Oral Tablet (Lipitor) Atorvastatin Calcium 80 MG Oral Tablet (Lipitor) 80 mg Oral aborted Take 80 mg by mouth daily [facility] Baclofen 10 MG Oral Tablet Baclofen 10 MG Oral Tablet (LIORESAL) Baclofen 10 MG Oral Tablet (LIORESAL) 10 mg Oral aborted Take 10 mg by mouth Three times daily [facility] Vitamin B 12 0.5 MG Oral Tablet Cyanocobalamin (B-12) 500 MCG TABS Cyanocobalamin (B-12) 500 MCG TABS 1 {tbl} Oral ab orted Take 1 tablet by mouth daily [facility] B Complex Vitamins (VITAMIN B COMPLEX) TABS [id number] 1 {tbl} Oral aborted Take 1 tablet by mouth daily [facility] carvedilol 3.125 MG Oral Tablet carvedilol (COREG) 3.1 25 MG tablet carvedilol (COREG) 3.125 MG tablet 3.125 mg Oral aborted Take 3.125 mg by mouth Two Times Daily [facility] Insurance Providers Payer name Policy type / Coverage type Policy ID Covered constitution party ID Covered constitution party's relationship to aranda Policy Aranda Plan Information MEDICARE [id number] SP [id number] MEDICARE PART A -O/P [id number] 18 [id number] MEDICAID -O/P [id number] MEDICAID -O/P EMERGENCY ROOM [id number] Medicaid of [place] Other 0 Self 0 Medicare Part B [facility] Other 0 Se lf 0 Medicaid [facility] Other 0 Self 0 Medicare Part B [facility] Other 0 Se lf 0 Medicaid [facility] Other 0 Self 0 Medicare Part B of [facility] Other 0 Se lf 0 Medicaid of [place] Other 0 Self 0 Medicare Part B of [facility] Other 0 Se lf 0 Medicaid of [place] Other 0 Self 0 Medicare Part B of [facility] Other 0 Se lf 0 Medicaid of [place] Other 0 Self 0 Medicare Part B of [facility] Other 0 Se lf 0 Medicaid [facility] S D [id number] SELF [id number] Medicare C [id number] SELF [id number] MEDICAID [id number] Madeleine [id number] MEDICARE [id number] Madeleine [id number] X06 MEDICAID [id number] MEDICARE [id number] MEDICAID [id number] Madeleine [id number] MEDICARE A [id number] Self [id number] MEDICAID M [id number] Self [id number] MEDICARE A [id number] Self [id number] MEDICAID [facility]. 2 [id number] MEDICARE [facility]) - [id number] 1 [id number] Medicaid [facility] Other 0 Self 0 Medicare Part B of [facility] Other 0 Se lf 0 MEDICARE C [id number] S [id number] Medicaid [facility] Other 0 Self 0 Medicare Part B of [facility] Other 0 Se lf 0 MEDICARE PART A -O [id number] 18 [id number] MEDICAID -O/P KEVIN [id number] 18 [id number] MEDICARE PART A -I/P [id number] 18 [id number] MEDICAID -I/P [id number] MEDICARE PART A -O/P [id number] 18 [id number] Medicaid [facility] Other 0 Self 0 Medicare Part B of [facility] Other 0 Se lf 0 Medicaid of [place] Other 0 Self 0 Medicare Part B of [facility] Other 0 Se lf 0 MEDICAID [id number] SP [id number] ANSI-Medicare Part B [id number] ANSI-Medicare Part B [id number] ANSI-Medicare Part B [id number] ANSI-Medicare Part B [id number] ANSI-Medicare Part B [id number] ANSI-Medicare Part B [id number] ANSI-Medicare Part B [id number] ANSI-Medicare Part B [id number] ANSI-Medicare Part B [id number] ANSI-Medicare Part B [id number] ANSI-Medicare Part B [id number] ANSI-Medicare Part B [id number] ANSI-Medicare Part B [id number] ANSI-Medicare Part B [id number] ANSI-Medicare Part B [id number] ANSI-Medicare Part B [id number] ANSI-Medicare Part B [id number] ANSI-Medicare Part B [id number] ANSI-Medicare Part B [id number] ANSI-Medicare Part B [id number] ANSI-Medicare Part B [id number] ANSI-Medicare Part B [id number] ANSI-Medicare Part B [id number] ANSI-Medicare Part B [id number] MEDICARE [id number] SP [id number] ANSI-Medicare Part B [id number] ANSI-Medicare Part B [id number] MEDICAID -PHYSICIAN [id number] MEDICAID -O [id number] MEDICARE PART A -O [id number] MEDICARE PART A -I/P [id number] 18 [id number] ANSI-Medicare Part B [id number] ANSI-Medicare Part B [id number] ANSI-Medicare Part B [id number] ANSI-Medicare Part B [id number] ANSI-Medicare Part B [id number] ANSI-Medicare Part B [id number] ANSI-Medicare Part B [id number] ANSI-Medicare Part B [id number] ANSI-Medicare Part B [id number] ANSI-Medicare Part B [id number] ANSI-Medicare Part B [id number]-v61o-9d79-z1o2-97c605zm8912 2e229447-v41e-9e98-h4n5-68e366vo6673 ANSI-Medicare Part B [id number]d6bar3o98e4 144v98z4-4631-49g5-5523-4f7uti1i95g1 ANSI-Medicare Part B 50e17uha-j3bf-4579-d447-c1q39k6i7920 00k97kvq-p3wu-1580-z510-b3o63o3c5408 ANSI-Medicare Part B 6e4dw3l0-1ct1-37jn-o6m8-76393j23a7jz 6p7dc1k3-9pa2-69uq-g4w2-02359l75q6rr ANSI-Medicare Part B 2xhdi3hu-nud1-646e-g7qf-4m73414j851w 3ziqm1yu-bwn1-231t-x9xp-7d18014t970z ANSI-Medicare Part B 6z4f0a4o-8po4-376p-4y74-2x4305w646zv 5c1s8p1t-1bx4-828y-2z49-7y9404c462hq ANSI-Medicare Part B zjwh5o67-dlr3-7850-j548-09m75c7e1044 lwit1p36-oqt5-9602-b938-72x18y9w7037 ANSI-Medicare Part B 8vb5w404-v5wu-44yx-0rr8-l115a9ze936z 3nt6g628-c9ek-49lv-3ae8-l064l3lt726b ANSI-Medicare Part B 5ejz0s3r-8y91-41r1-lwg3-083570256agl 9dkb6f9h-0n36-16o6-fen4-827990276emg ANSI-Medicare Part B [id number]-615r-r27z-c072h66n5o38 d4957420-36rh-310w-e05x-o999n02r4g98 ANSI-Medicare Part B h7cfesbz-8x50-0q3q-q4r6-5ui12z4u77vk v6ilglwd-9g87-1t1m-l5m3-9pe53q7z08zn ANSI-Medicare Part B 7088z4a2-js75-7p85-8p54-yv8k399295u0 9662g0n6-zf60-8b05-9j57-jx5h073631s3 ANSI-Medicare Part B 8741fjc1-im25-8568-f8pn-47p40pyh4751 1493qxk1-am39-9828-f2hs-52j25csq9249 ANSI-Medicare Part B [id number]-[id number] [id number]-41r1-590o-1e71-d7o1ppi37163 ANSI-Medicare Part B [id number]-96m6-59na-44f4t6xg008a 431w4ua5-8t4w-79a3-19ff-60m3a5sw004b ANSI-Medicare Part B [id number]28q 8134630m-h2h2-60h4-7ho1-26j0i2scw66b ANSI-Medicare Part B [id number]-k5zy-7d62d09p2405 42w55udu-07h4-7153-v5ry-7b56x11e4640 ANSI-Medicare Part B [id number]-dc9fk71j3hm8 [id number]-7042-3oo6-967j-yw0ys31c6rv3 ANSI-Medicare Part B [id number] gf8240j3-3009-48z0-914g-[id number] ANSI-Medicare Part B [id number] 4202ek37-r0s4-0611-594o-[id number] ANSI-Medicare Part B [id number]-68io-6532-[id number] 143kq154-l63b-17sp-4370-ha93412254pm ANSI-Medicare Part B [id number]-t6j9-3q63-8979-74n333u8s6hs qin76d89-c6m4-0c47-3180-44p550b0o6vt ANSI-Medicare Part B [id number]-l228-28bb-671m-[id number] 4j0c3f8f-z092-57nj-832n-l820395521m1 ANSI-Medicare Part B [id number]-759y3mzdt202 8a7g14k4-tcq9-9384-84om-389e7slsw964 ANSI-Medicare Part B [id number]-z637thc8b4qg [id number]-o4q6-2ot3-821w-j699yzv3s7ax ANSI-Medicare Part B [id number]-8266-tn3s-so00h919elz1 [id number]-cshq-4671-qp4m-jh05k260qsn6 ANSI-Medicare Part B pseg8ihx-q6se-7w01-wqi0-dilcjt3v4c1n bmto8qyn-o6gr-7y92-vps8-sdgvsr2l3w2q ANSI-Medicare Part B [id number]-c7rj-096xtg1b0167 3771983z-28t2-275u-s7xr-566yen0r3121 ANSI-Medicare Part B [id number]-qob7-u6o38tlay666 [id number]-jnn8-v6a90vfme647 ANSI-Medicare Part B [id number]-g583-5411-65h7-8150f89u0208 1h2btem9-j576-6451-14e0-4722s48u3890 ANSI-Medicare Part B 462e72er-j69k-1908-jw08-9z614jknf4ts 670i02lv-o93p-7177-gv61-7c709sjeg7sc ANSI-Medicare Part B [id number]-2kpa-77350d883o06 [id number]-4282-2i0r-3izj-63057j880l13 ANSI-Medicare Part B [id number]-55wf-664q-73537n43e72w o256xz33-i51s-47di-858j-77964y20k03r ANSI-Medicare Part B [id number]-116y-702l-n50e-573513r6l882 bqv65ipf-711e-784c-u42f-733448m0c161 ANSI-Medicare Part B [id number]-q517-9xl52x9cn600 6c3v5b91-87a6-3gfl-x076-7cm63r4hn559 ANSI-Medicare Part B [id number]-w786-3474-45go-89v01ua27b0m r2lp686y-s736-1428-36kx-06m88fh26y2w ANSI-Medicare Part B [id number]-g780-8i35625w12y5 9964n734-03a9-060l-h100-5t66992v25g3 ANSI-Medicare Part B 14l93hh5-x0e9-6t10-n8rl-3p31n03z00iw 57s22ia5-r9a5-6f98-o6wh-0d10b23t82dv ANSI-Medicare Part B 29067zj3-9306-8492-83vi-m36nxbpnl419 34127xa0-5855-1567-84vh-g93hvxcpl311 ANSI-Medicare Part B c7aze02m-78rx-91p4-10id-p8j63615p661 m6iga84l-69qh-33r4-33yu-b4q28058i533 ANSI-Medicare Part B [id number]-1x0m-ox0m-4n1xr201lp82 1e39ds17-817p-3g0u-dq2n-8f5vd087lh57 ANSI-Medicare Part B [id number]-v424-77912437ub2x 44810577-7772-56sd-o378-54460455kn5p MEDICAID -SWING BED [id number] MEDICARE -SWING BED [id number] ANSI-Medicare Part B [id number]-633o-b90449g8d2b2 320w2bm6-24v0-06fj-085b-i40436c1b8l9 ANSI-Medicare Part B [id number]-r299-0n56-yv0t-[id number] k127jo58-j392-2m24-ki1d-156726910033 ANSI-Medicare Part B 364gy659-71cv-5538-v7s4-0671gt6leagd 715ql754-09yp-7288-z6o7-2058jq7wzyrg ANSI-Medicare Part B [id number]-7i30-cvs6-f4ozjr3198ni z6146eh1-j5nv-2h83-mnh7-w7xkfe4377vr MEDICARE PART A -I/P [id number] 18 [id number] ANSI-Medicare Part B [id number]-09p5-9cku03l229t7 56q195d7-3d97-56py-87t5-7yyi17z878t0 ANSI-Medicare Part B [id number]-k7c8-4638-38s6-dx12pios3uc8 259112u7-b9p5-2151-24a9-dn54vyce5sj8 ANSI-Medicare Part B [id number]-g837-486h-i29r-465481785u75 q5u0f984-w347-610e-z34n-572368783i25 ANSI-Medicare Part B [id number]-el61-903p-hmw8-9xg3i18m391y 013014v9-jh14-445z-klm4-5lz0t41p971r ANSI-Medicare Part B [id number]-s4j1-3138-1kd5-i75hw69whnxs ke8x935a-j0k6-0282-5ik7-h95df59sieud ANSI-Medicare Part B 0w13c6s9-237s-2b7j-jefu-7x153861d04o 0l44a4r6-412r-8a7t-ybsm-7b043048w65h ANSI-Medicare Part B [id number]-y276-1k75-mts2-36lpi09w38bd 71642hh5-m969-1p97-hjh1-28her95r30wu ANSI-Medicare Part B [id number]-238a-[id number] 9b7637k8-378a-735j-nn98-404190414b22 ANSI-Medicare Part B 50f03a1d-lk1e-7vce-516t-q5ljpx59664h 75e01f1g-ne9q-8ffd-664u-n8nbql74812q ANSI-Medicare Part B 5220hh6w-9f8f-3911-71go-6z0cb67k9511 0904tt2x-5m3n-4568-95mm-8s4ub75t3605 ANSI-Medicare Part B 65oi5d48-aje9-0v64-cl43-8749et478201 85jp6s15-vid4-7i06-xs84-5836gn170880 ANSI-Medicare Part B [id number]0o8 8628r783-3v06-30r4-2026-09v1n87790u9 ANSI-Medicare Part B [id number]-u26i-7k9x266dwgj4 v68ho717-5423-9297-y40l-9k2j495umuf8 ANSI-Medicare Part B [id number]-x66a-[id number] 425977i3-6096-7521-m27d-148427m83542 ANSI-Medicare Part B [id number]-9o8b41kn6766 4g8658u9-1808-48o4-0a2k-0o8e38ca6564 ANSI-Medicare Part B h18zczg2-wq95-865e-l809-569h4f864q79 i26tmrj3-la44-286n-m115-356z4c638m97 ANSI-Medicare Part B [id number]-441e-6g34m6sk4r5r 6w7b22a2-27x1-223e-627p-7f16x3od9a1o ANSI-Medicare Part B [id number]-4277-9djl-br1x-4855wjwe7807 849371se-1002-4yvo-jt2u-4871uewc7879 ANSI-Medicare Part B [id number]584 86f12502-j8i9-4hl4-21g2-4932ac170517 ANSI-Medicare Part B [id number]-mjj8-1u3c-2992-j7n78g37371a b825385s-tln2-3z0w-1388-l5v07a48389m ANSI-Medicare Part B 227xo7z0-60sr-4648-h31r-84ig309p04g9 803ce2v8-97kd-7290-f62q-17nm243y00t2 ANSI-Medicare Part B [id number]-5t69-u7e8-8sjp0o304786 [id number]-c07p-7t78-w9o2-3gaj5u918040 ANSI-Medicare Part B 587b16w6-13a0-8hvx-716e-[id number] 105e05d6-73r6-7xay-764z-7901np1225nf ANSI-Medicare Part B k7st087d-3cxp-130n-[id number] m2pv389c-7buq-429a-k891-5anz7653545e ANSI-Medicare Part B 62331g26-w027-3o73-2o87-tlbl965v4645 [id number]-u777-8w40-5b61-abux091g5422 ANSI-Medicare Part B [id number]-p722o21x8156 4j81yl12-1l02-03u1-40nr-e250z53h4587 ANSI-Medicare Part B [id number]-33h06gfifsf1 [id number]-07r34tctnac8 ANSI-Medicare Part B [id number]-485s-y2i0-gw4lft98x24p [id number]-851h-j5s9-qg7axn64x41o MEDICARE PART B -PHYSICIAN [id number] MEDICAID -I [id number] MEDICARE PART A -I [id number] MEDICAID [facility] [id number] SP [id number] MEDICARE [id number] SP [id number] A MEDICARE [id number] SP [id number] A MEDICAID [facility] [id number] SP [id number] MEDICARE [id number] SP [id number] MEDICARE UNAVAILABLE [place] MEDICARE [id number] SP [id number] SELF PAY UNAVAILABLE [place] MEDICAID UNA[place]ILABLE SP [place] B[place] MEDICAID M [id number] S [id number] MEDICARE C [id number] S [id number] A [place] Medicare Primary [id number] Self [id number] MEDICARE - [facility] [id number] S [id number] [employer] [facility] MEBKFLHZ S MEB KFLHZ AETNA MEDICARE MEBKFLHZ SP MEBKF LHZ [facility] MEDICAID [facility] [id number] S [id number] [facility] [id number] SP [id number] [facility] MEDICAID [facility] [id number] S [id number] SELF PAY SP UNAVAILABLE S UNA[place]A BLE [id number] Problems, Conditions, and Diagnoses Code Display Name Description Problem Type Effective Dates Data Source(s) Z95.1 Hx of CABG Hx of CABG [id number] 09/16/2019 12:00:00 AM ED T [facility] I25.5 Ischemic cardiomyopathy Ischemic cardiomyopathy 258707 09/16/2019 12:00:00 AM EDT [facility] G40.109 Simple partial seizure disorder Simple partial s eizure disorder [id number] 09/13/2019 12:00:00 AM EDT [facility] G62.9 Polyneuropathy Polyneuropathy [id number] 09/13/2019 12:00: 00 AM EDT [facility] F41.9 Anxiety Anxiety [id number] 09/13/2019 12:00:00 AM ED [facility] K21.9 Gastroesophageal reflux disease without esophagitis Gastroesophageal reflux disease without esophagitis [id number] 09/13/2019 12:00:00 AM ED [facility] E78.49 Other hyperlipidemia Other hyperlipidemia [id number] 09/13/2019 12:00:00 AM EDT [facility] R47.01 Aphasia Aphasia [id number] 09/13/2019 12:00:00 AM ED T [facility] I10 Essential hypertension Essential hypertension [id number] 09/13/2019 12:00:00 AM EDT [facility] I48.21 Permanent atrial fibrillation Permanent atrial fibrill ation [id number] 09/13/2019 12:00:00 AM EDT [facility] I63.9 Stroke Stroke [id number] 09/13/2019 12:00:00 AM ED [facility] S72.001D Closed fracture of right hip with routin e healing Closed fracture of right hip with routine healing [id number] 09/13/2019 12:00:00 AM EDT [facility] D539 Nutritional anemia, unspecified Nutritional anemia, un specified Diagnosis 07/14/2020 02:10:00 PM [facility] A34096 Cellulitis of other sites Cellulitis of other sites Di agnosis 06/04/2020 03:06:00 PM [facility] G4089 Other seizures Other seizures Diagnosis 05/14/2020 09:53: 00 AM [facility] I639 Cerebral infarction, unspecified Cerebral infarc tion, unspecified Diagnosis 05/14/2020 09:53:00 AM [facility] I4820 Chronic atrial fibrillation, unspecified Chronic atrial fibrillation, unspecified Diagnosis 05/14/2020 09:53:00 AM [facility] N1830 Chronic kidney disease, stage 3 unspecif ied Chronic kidney disease, stage 3 unspecified Diagnosis 05/14/2020 09:53:00 AM [facility] U78822 Cellulitis of right lower limb Cellulitis of right low er limb Diagnosis 11/14/2019 07:47:00 AM EDT [facility] R609 Edema, unspecified Edema, unspecified Diagnosis 0 06:53:00 AM EDT [facility] K219 Gastro-esophageal reflux disease without esophagitis Gastro-esophageal reflux disease without esophagitis Diagnosis 10/31/2019 06:53:00 AM ED T [facility] E785 Hyperlipidemia, unspecified Hyperlipidemia, unspecifie d Diagnosis 10/31/2019 06:53:00 AM EDT [facility] L79266 Cellulitis of left lower limb Cellulitis of left lower limb Diagnosis 10/19/2019 09:08:00 AM EDT [facility] S72.001A Fracture of unspecified part of neck of right femur, initial encounter for closed fracture Fracture of unspecified part of neck of Diagnosis 09/13/2019 10:40:00 PM EDT [facility] E51026 Unspecified place in assisted as the place of occurrence of the external cause Unspecified place in assisted as the place of occurrence of the external cause Diagnosis 09/13/2019 04:36:00 PM EDT [facility] [id number] Fall on same level, unspecified, initial encounter Fall on same level, unspecified, initial encounter Diagnosis 09/13/2019 04:36:00 PM EDT [facility] Z7901 manager terminal (current) use of 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 s manager terminal (current) use of 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s Diagnosis 09/13/2019 04:36:00 PM EDT [facility] I10 Essential (primary) hypertension Essential (primary) h ypertension Diagnosis 09/13/2019 04:36:00 PM EDT [facility] 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 Diagnosis 09/13/2019 04:36:00 PM EDT [facility] Y58316 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, 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, bilateral Diagnosis 0 09/13/2019 04:36:00 PM EDT [facility] W05857 Chronic embolism and thrombosis of femor al vein, bilateral Chronic embolism and thrombosis of femoral vein, bilateral Diagnosis 04:36:00 PM EDT [facility] [id number] Nondisplaced intertrochanter ic fracture of right femur, initial encounter for closed fracture Nondisplaced intertrochanteric fracture of right femur, initial encounter for closed fracture Diagnosis 0 04:36:00 PM EDT [facility] [id number] Unspecified injury of right hip, initial encounter Unspecified injury of right hip, initial encounter Diagnosis 09/13/2019 04:36:00 PM EDT [facility] Lower extremity Edema and Ce llulitis; hx stroke with RT side residuals, pt is bed bound Lower extremity Edema and Cellulitis; hx stroke with RT side residuals, pt is bed bound Diagnosis 08/08/2019 02:58:11 PM EDT [facility] I110 Hypertensive heart disease with heart fa ilure Hypertensive heart disease with heart failure Diagnosis 08/08/2019 07:38:00 AM EDT [facility] J60107 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 with unspecified severity Non-pressure chronic ulcer of left heel and midfoot with unspecified severity Diagnosis 08/08/2019 07:38:00 AM EDT [facility] K25045 Varicose veins of left lower extremity w ith ulcer of heel and midfoot Varicose veins of left lower extremity with ulcer of heel and midfoot Diagnosis 08/08/2019 07:38:00 AM EDT [facility] I509 Heart failure, unspecified Heart failure, unspecified Diagnosis 08/08/2019 07:38:00 AM EDT [facility] I872 Venous insufficiency (chronic) (peripher al) Venous insufficiency (chronic) (peripheral) Diagnosis 08/08/2019 07:38:00 AM EDT [facility] R2243 Localized swelling, mass and lump, lower limb, bilateral Localized swelling, mass and lump, lower limb, bilateral Diagnosis 020 07:38:00 AM EDT [facility] B961 Klebsiella pneumoniae [K. pn eumoniae] as the cause of diseases classified elsewhere Klebsiella pneumoniae [K. pneumoniae] as the cause of diseases classified elsewhere Diagnosis 07/09/2019 02:00:00 PM [facility] I4891 Unspecified atrial fibrillation Unspecified atrial fib rillation Diagnosis 07/09/2019 02:00:00 PM [facility] R600 Localized edema Localized edema Diagnosis 07/09/2019 02:0 0:00 PM [facility] D649 Anemia, unspecified Anemia, unspecified Diagnosis 0 07/09/2019 02:00:00 PM [facility] J53527 Personal history of other venous thrombo sis and embolism Personal history of other venous thrombosis and embolism Diagnosis 07/09/2019 02:00:00 PM [facility] F20515 Acute embolism and thrombosis of femoral vein, bilateral Acute embolism and thrombosis of femoral vein, bilateral Diagnosis 07/09/2019 02:00:0 0 PM [facility] I2699 Other pulmonary embolism without acute c or pulmonale Other pulmonary embolism without acute cor pulmonale Diagnosis 07/09/2019 09:20:00 AM [facility] Surgeries/Procedures Procedure Description Date Indications Data Source(s) ECG ROUTINE ECG W/LEAST 12 LDS W/I&R 07/14/2020 12:00: 00 AM EST [facility] (Neymar Hilario MD) ECHO TTHRC R-T 2D W/WOM-MODE COMPL SPEC&COLR DOP 07/14 12:00:00 AM EST [facility]Neymar Hilario MD) ELECTROCARDIOGRAM, COMPLETE (EKG) ELECTROCARDIOGRAM, COMPLET E (EKG) 03/30/2020 12:00:00 AM [facility]) ELECTROCARDIOGRAM, COMPLETE (EKG) ELECTROCARDIOGRAM, COMPLET E (EKG) 03/30/2020 12:00:00 AM [facility] ([facility]) BLOOD COUNT COMPLETE AUTOMATED CBC Routine 09/18/2019 5:48 A M EDT 09/18/2019 09:48:00 AM EDT [facility] BASIC METABOLIC PANEL CALCIUM TOTAL BASIC METABOLIC PANEL Routi ne 09/18/2019 5:48 AM EDT 09/18/2019 09:48:00 AM EDT [facility] BLOOD COUNT HEMATOCRIT HEMATOCRIT Timed 09/17/2019 11:19 PM EDT 09/18/2019 03:19:00 AM EDT [facility] BLOOD COUNT HEMOGLOBIN HEMOGLOBIN AND HEMATOCRIT, BLOOD Routine 09/17/2019 1:47 PM EDT 09/17/2019 05:47:00 PM EDT [facility] BLOOD COUNT COMPLETE AUTOMATED CBC Routine 09/17/2019 5:59 A M EDT 09/17/2019 09:59:00 AM EDT [facility] BASIC METABOLIC PANEL CALCIUM TOTAL BASIC METABOLIC PANEL Routi ne 09/17/2019 5:59 AM EDT 09/17/2019 09:59:00 AM EDT [facility] IRON BINDING CAPACITY IRON PANEL Add-On 09/16/2019 8:03 AM EDT 09/16/2019 12:03:00 PM EDT [facility] 25 HYDROXY INCLUDES FRACTIONS IF PERFORMED VITAMIN D 25 HYDROXY Add-On 09/16/2019 8:03 AM EDT 09/16/2019 12:03:00 PM EDT [facility] BLOOD COUNT COMPLETE AUTOMATED CBC STAT 09/16/2019 8:03 A M EDT 09/16/2019 12:03:00 PM EDT [facility] FERRITIN FERRITIN Add-On 09/16/2019 8:03 AM EDT 09/16/2019 12:03:00 PM EDT [facility] MAGNESIUM MAGNESIUM Routine 09/16/2019 7:08 AM EDT 09/16/2019 11:08:00 AM EDT [facility] CALCIUM IONIZED CALCIUM, IONIZED Routine 09/16/2019 7:08 AM EDT 09/16/2019 11:08:00 AM EDT [facility] BASIC METABOLIC PANEL CALCIUM TOTAL BASIC METABOLIC PANEL Routi ne 09/16/2019 7:08 AM EDT 09/16/2019 11:08:00 AM EDT [facility] BLOOD COUNT HEMATOCRIT HEMATOCRIT Timed 09/15/2019 11:25 PM EDT 09/16/2019 03:25:00 AM EDT [facility] URINE CULTURE HOLD SPECIMEN URINE CULTURE HOLD SPECIMEN Routine 09/15/2019 10:56 PM EDT 09/16/2019 02:56:00 AM EDT [facility] URINE MICROSCOPIC URINE MICROSCOPIC Add-On 09/15/2019 10:56 PM EDT 09/16/2019 02:56:00 AM EDT [facility] URNLS DIP STICK/TABLET RGNT AUTO W/O MICROSCOPY URINALYSIS W/O MICRO Routine 09/15/2019 10:56 PM EDT 09/16/2019 02:56:00 AM EDT [facility] XR FLUORO UP TO 1 HR XR FLUORO UP TO 1 HR STAT 09/15/2019 10:38 AM EDT 09/15/2019 02:38:16 PM EDT [facility] BLOOD COUNT COMPLETE AUTOMATED CBC Routine 09/15/2019 5:58 A M EDT 09/15/2019 09:58:00 AM EDT [facility] BASIC METABOLIC PANEL CALCIUM TOTAL BASIC METABOLIC PANEL Routi ne 09/15/2019 5:58 AM EDT 09/15/2019 09:58:00 AM EDT [facility] XR CHEST PORTABLE XR CHEST PORTABLE Routine 09/14/2019 1:37 PM EDT 09/14/2019 05:37:22 PM EDT [facility] ECG ROUTINE ECG W/LEAST 12 LDS TRCG ONLY W/O I&R ECG 12-LEAD STAT 09/14/2019 11:49 AM EDT 09/14/2019 03:49:30 PM EDT [facility] IRON BINDING CAPACITY IRON PANEL Routine 09/14/2019 11:37 AM EDT 09/14/2019 03:37:00 PM EDT [facility] 25 HYDROXY INCLUDES FRACTIONS IF PERFORMED VITAMIN D 25 HYDROXY Routine 09/14/2019 11:37 AM EDT 09/14/2019 03:37:00 PM EDT [facility] PROTHROMBIN TIME PROTIME-INR Routine 09/14/2019 11:37 AM EDT 09/14/2019 03:37:00 PM EDT [facility] MAGNESIUM MAGNESIUM Routine 09/14/2019 11:37 AM EDT 09/14/2019 03:37:00 PM EDT [facility] FERRITIN FERRITIN Routine 09/14/2019 11:37 AM EDT 09/14/2019 03:37:00 PM EDT [facility] CALCIUM IONIZED CALCIUM, IONIZED Routine 09/14/2019 11:37 AM EDT 09/14/2019 03:37:00 PM EDT [facility] ECHO TTHRC R-T 2D W/WOM-MODE COMPL SPEC&COLR DOP ECHOCARDIO GRAM TRANSTHORACIC Routine 09/14/2019 10:16 AM EDT 09/14/2019 02:16:36 PM EDT [facility] DUP-SCAN XTR VEINS UNILATERAL/LIMITED STUDY US LOWER EXTREM ITY VENOUS RIGHT Routine 09/14/2019 8:44 AM EDT 09/14/2019 12:44:21 PM EDT [facility] IRON BINDING CAPACITY IRON PANEL Add-On 09/14/2019 2:27 AM EDT 09/14/2019 06:27:00 AM EDT [facility] TROPONIN QUANTITATIVE TROPONIN I Routine 09/14/2019 2:27 AM EDT 09/14/2019 06:27:00 AM EDT [facility] BLOOD COUNT COMPLETE AUTOMATED CBC Routine 09/14/2019 2:27 A M EDT 09/14/2019 06:27:00 AM EDT [facility] FERRITIN FERRITIN Add-On 09/14/2019 2:27 AM EDT 09/14/2019 06:27:00 AM EDT [facility] CYANOCOBALAMIN VITAMIN B-12 VITAMIN B12 Add-On 09/14/2019 2:27 AM EDT 09/14/2019 06:27:00 AM EDT [facility] CALCIUM IONIZED CALCIUM, IONIZED Routine 09/14/2019 2:27 AM EDT 09/14/2019 06:27:00 AM EDT [facility] BASIC METABOLIC PANEL CALCIUM TOTAL BASIC METABOLIC PANEL Routi ne 09/14/2019 2:27 AM EDT 09/14/2019 06:27:00 AM EDT [facility] LACTATE LACTIC ACID Timed 09/14/2019 2:25 AM EDT 09/14/2019 06:25:00 AM EDT [facility] RADIOLOGIC EXAMINATION PELVIS 1/2 VIEWS XR PELVIS LIMITED STAT 09/14/2019 1:45 AM EDT 09/14/2019 05:45:45 AM EDT [facility] XR CHEST PORTABLE XR CHEST PORTABLE STAT 09/14/2019 1:44 AM EDT 09/14/2019 05:44:06 AM EDT [facility] XR FEMUR AP AND LATERAL RIGHT XR FEMUR AP AND LATERAL RIGHT STA T 09/14/2019 1:42 AM EDT 09/14/2019 05:42:01 AM EDT [facility] ECG ROUTINE ECG W/LEAST 12 LDS TRCG ONLY W/O I&R ECG 12-LEAD STAT 09/13/2019 11:14 PM EDT 09/14/2019 03:14:23 AM EDT [facility] NT PRO BNP NT PRO BNP STAT 09/13/2019 10:50 PM EDT 09/14/2019 02:50:00 AM EDT [facility] TROPONIN QUANTITATIVE TROPONIN I Timed 09/13/2019 10:50 PM EDT 09/14/2019 02:50:00 AM EDT [facility] 25 HYDROXY INCLUDES FRACTIONS IF PERFORMED VITAMIN D 25 HYDROXY Add-On 09/13/2019 10:50 PM EDT 09/14/2019 02:50:00 AM EDT [facility] THROMBOPLASTIN TIME PARTIAL PLASMA/WHOLE BLOOD APTT STAT 09/13/2019 10:50 PM EDT 09/14/2019 02:50:00 AM EDT [facility] PROTHROMBIN TIME PROTIME-INR STAT 09/13/2019 10:50 PM EDT 09/14/2019 02:50:00 AM EDT [facility] BLOOD COUNT COMPLETE AUTO&AUTO DIFRNTL WBC COUNT CBC AND DIFFER ENTIAL STAT 09/13/2019 10:50 PM EDT 09/14/2019 02:50:00 AM EDT [facility] BLOOD TYPING ABO TYPE AND SCREEN Routine 09/13/2019 10:50 PM EDT 09/14/2019 02:50:00 AM EDT [facility] THYROID STIMULATING HORMONE TSH TSH STAT 09/13/2019 10:50 PM EDT 09/14/2019 02:50:00 AM EDT [facility] THYROXINE FREE T4, FREE STAT 09/13/2019 10:50 PM EDT 09/14/2019 02:50:00 AM EDT [facility] MAGNESIUM MAGNESIUM STAT 09/13/2019 10:50 PM EDT 09/14/2019 02:50:00 AM EDT [facility] HEMOGLOBIN GLYCOSYLATED A1C HEMOGLOBIN A1C STAT 09/13/2019 10:50 PM EDT 09/14/2019 02:50:00 AM EDT [facility] FERRITIN FERRITIN Add-On 09/13/2019 10:50 PM EDT 09/14/2019 02:50:00 AM EDT [facility] HEPATIC FUNCTION PANEL HEPATIC FUNCTION PANEL STAT 09/13/2019 10 :50 PM EDT 09/14/2019 02:50:00 AM EDT [facility] LIPID PANEL LIPID PANEL STAT 09/13/2019 10:50 PM EDT 09/14/2019 02:50:00 AM EDT [facility] BASIC METABOLIC PANEL CALCIUM TOTAL BASIC METABOLIC PANEL STAT 09/13/2019 10:50 PM EDT 09/14/2019 02:50:00 AM EDT [facility] LAB RESULTS (OUTSIDE/HISTORICAL) LAB RESULTS (OUTSIDE/HISTORICA L) 08/14/2019 2:22 PM EDT 08/14/2019 06:22:39 PM EDT [facility] BLOOD COUNT COMPLETE AUTO&AUTO DIFRNTL WBC COUNT CBC AND DIFFER ENTIAL Routine 08/14/2019 3:11 AM EDT 08/14/2019 07:11:00 AM EDT [facility] BASIC METABOLIC PANEL CALCIUM TOTAL BASIC METABOLIC PANEL Routi ne 08/14/2019 3:11 AM EDT 08/14/2019 07:11:00 AM EDT [facility] BASIC METABOLIC PANEL CALCIUM TOTAL BASIC METABOLIC PANEL Routi ne 08/13/2019 3:55 AM EDT 08/13/2019 07:55:00 AM EDT [facility] BLOOD COUNT COMPLETE AUTO&AUTO DIFRNTL WBC COUNT CBC AND DIFFER ENTIAL Routine 08/12/2019 6:12 AM EDT 08/12/2019 10:12:00 AM EDT [facility] BASIC METABOLIC PANEL CALCIUM TOTAL BASIC METABOLIC PANEL Routi ne 08/12/2019 6:12 AM EDT 08/12/2019 10:12:00 AM EDT [facility] BLOOD COUNT COMPLETE AUTO&AUTO DIFRNTL WBC COUNT CBC AND DIFFER ENTIAL Routine 08/11/2019 6:48 AM EDT 08/11/2019 10:48:00 AM EDT [facility] BASIC METABOLIC PANEL CALCIUM TOTAL BASIC METABOLIC PANEL Routi ne 08/11/2019 6:48 AM EDT 08/11/2019 10:48:00 AM EDT [facility] DRUG SCREEN QUALITATIVE VANCOMYCIN VANCOMYCIN, TROUGH Routine 08/10/2019 8:21 AM EDT 08/10/2019 12:21:00 PM EDT [facility] BLOOD COUNT COMPLETE AUTO&AUTO DIFRNTL WBC COUNT CBC AND DIFFER ENTIAL Routine 08/10/2019 5:29 AM EDT 08/10/2019 09:29:00 AM EDT [facility] BASIC METABOLIC PANEL CALCIUM TOTAL BASIC METABOLIC PANEL Routi ne 08/10/2019 5:29 AM EDT 08/10/2019 09:29:00 AM EDT [facility] BASIC METABOLIC PANEL CALCIUM TOTAL BASIC METABOLIC PANEL Routi ne 08/09/2019 12:27 PM EDT 08/09/2019 04:27:00 PM EDT [facility] CT LOWER EXTREMITY W/CONTRAST MATERIAL CT LOWER EXTREMITY W ITH CONTRAST [id number] Routine 08/08/2019 10:16 PM EDT 08/09/2019 02:16:21 AM EDT [facility] CULTURE BACTERIAL BLOOD AEROBIC W/ID ISOLATES BLOOD CULTURE R outine 08/08/2019 7:23 PM EDT 08/08/2019 11:23:00 PM EDT [facility] CULTURE BACTERIAL BLOOD AEROBIC W/ID ISOLATES BLOOD CULTURE R outine 08/08/2019 7:23 PM EDT 08/08/2019 11:23:00 PM EDT [facility] PROTHROMBIN TIME PROTIME INR Routine 08/08/2019 7:23 PM EDT 08/08/2019 11:23:00 PM EDT [facility] BLOOD COUNT COMPLETE AUTO&AUTO DIFRNTL WBC COUNT CBC AND DIFFER ENTIAL Routine 08/08/2019 7:23 PM EDT 08/08/2019 11:23:00 PM EDT [facility] COMPREHENSIVE METABOLIC PANEL COMPREHENSIVE METABOLIC PANEL Rou lori 08/08/2019 7:23 PM EDT 08/08/2019 11:23:00 PM EDT [facility] DUP-SCAN XTR VEINS UNILATERAL/LIMITED STUDY US DOPPLE R LOWER EXTREMITY UNILATERAL VENOUS LIMITED [id number] Routine 08/08/2019 6:46 PM EDT 08/08/2019 10:46:02 PM [facility] Plain Radiography of Abdomen Plain Radiography of Abdomen 12:00:00 AM [facility] Plain Radiography of Chest Plain Radiography of Chest 2019 12:00:00 AM [facility] Computerized Tomography (CT Scan) of Chest and Abdomen using Other Contrast Computerized Tomography (CT Scan) of Chest and Abdomen using Other Contrast 07/09/2019 12:00:00 AM [facility] Monitoring of Cardiac Electrical Activity, External Ap proach Monitoring of Cardiac Electrical Activity, External Approach 07/09/2019 12:00:00 AM [facility] Introduction of Vasopressor into Peripheral Vein, Perc utaneous Approach Introduction of Vasopressor into Peripheral Vein, Percutaneous Approach 07/09/2019 12:00:00 AM [facility] Introduction of Anesthetic Agent into Re spiratory Tract, Via Natural or Artificial Opening Introduction of Anesthetic Agent into Re spiratory Tract, Via Natural or Artificial Openin 07/09/2019 12:00:00 AM [facility] Introduction of Other Anti-infective int o Peripheral Vein, Percutaneous Approach Introduction of Other Anti-infective int o Peripheral Vein, Percutaneous Approach 07/09/2019 12:00:00 AM [facility] No history of type 2 diabetes mellitus No history of type 2 diabetes mellitus 05/27/2019 12:00:00 AM [facility]) No history of coronary artery disease No history of coronary artery disease 05/27/2019 12:00:00 AM [facility]) History of hyperlipidemia History of hyperlipidemia 05/27/2019 1 2:00:00 AM [facility] ([facility]) History of essential hypertension History of essential hyper tension 05/27/2019 12:00:00 AM [facility] ([facility]) Hx CVA between 5 - 10 years ago, in [facility]. ~Was in assisted in [place] x 2 years. ~Surgery- tonsillectomy Hx CVA between 5 - 10 years ago, in [facility]. ~Was in assisted in [place] x 2 years. ~Surgery- tonsillectomy 05/27/2019 12:00:00 AM [facility] ([facility]) Results ID Date Data Source [id number] 07/14/2020 03:18:00 PM [facility] Value Range Interpretation Code Description Data Miroslava rce(s) Supporting Document(s) Cobalamin (Vitamin B12) [Mass/volume] in Serum or Plasma 408 PG/ML 232 - 1245 [facility] ID Date Data Source [id number] 07/14/2020 03:18:00 PM [facility] Value Range Interpretation Code Description Data Miroslava rce(s) Supporting Document(s) Folate [Mass/volume] in Serum or Plasma 15.4 NG/ML 5.6 - 45.8 [facility] ID Date Data Source [id number] 07/14/2020 03:18:00 PM [facility] Value Range Interpretation Code Description Data Miroslava rce(s) Supporting Document(s) Ferritin [Mass/volume] in Serum or Plasma 106.0 ng/mL 5.0 - 244 [facility] ID Date Data Source [id number] 07/14/2020 02:59:00 PM [facility] Value Range Interpretation Code Description Data Miroslava rce(s) Supporting Document(s) Reticulocytes/100 erythrocytes in Blood by Automated count 2.2 % 0.5 - 1.5 H [facility] ID Date Data Source [id number] 07/14/2020 02:58:00 PM [facility] Value Range Interpretation Code Description Data Miroslava rce(s) Supporting Document(s) Iron [Mass/volume] in Serum or Plasma 46 UG/DL 42 - 135 [facility] ID Date Data Source [id number] 06/10/2020 09:44:00 AM [facility] Value Range Interpretation Code Description Data Miroslava rce(s) Supporting Document(s) CULTURE WOUND [facility] _CULTURE WOUND_$$[id number]$$[id number]$$[id number]$$[id number] DATE/TIME: 06/10/2020 08:08Culture: CULTURE WOUND Status: FinalIsolate 1 Enterococcus faecalis Flag: A . . . . . . .7Heavy growthCiprofloxacin SLevofloxacin STetracycline R Previous result entered on 06/09/2020 07:29 ET Enterococcus faecalis Previous result entered on 06/08/2020 09:58 ET Enterococcus faecalis Previous result entered on 06/07/2020 03:18 ET Microbiological testing to rule out the presence of possible pathogensis in progress.Aerobic Bacterial Culture: [id number] faecalis Flag: AIsolate 2 Staphylococcus aureus Flag: A . . . . . . .3Heavy growth -- Continued on next page --Patient: LOUISE James Order: [id number] Page 2Culture: CULTURE WOUND Status: Final Most [...] rodsAcinetobacter pittii Flag: APatient: LOUISE James Order: [id number] Page 3Culture: CULTURE WOUND Status: Final ISOLATE 1 Enterococcus faecalisISOLATE 2 Staphylococcus aureusISOLATE 3 Acinetobacter pittii Isolate 1 Isolate 2 Isolate 3Antibiotic RAJENDRA Int RAJENDRA Int RAJENDRA IntUnits ug/mL ug/mL ug/mL Ampicillin/Sulbactam Cefepime Cefotaxime Ceftazidime Ceftriaxone Ciprofloxacin Clindamycin Erythromycin Gentamicin Levofloxacin Linezolid Meropenem Moxifloxacin Oxacillin Penicillin S S Quinupristin/Dalfopristin Rifampin Tetracycline Tobramycin Trimethoprim/Sulfa Vancomycin S S P1 Test performed by: [facility] #: [id number] [address] [place] [address] [phone] [facility] [id number] Director : Jarod Ratliff MD NPI #:Quarry Worker : 06/08/20.0706.XMT.SENT REF 06/08/20.1018.XMT.SENT REF 06/09/20.56.XMT.SENT REF 06/10/20.44.XMT.SENT REF ID Date Data Source [id number] 05/20/2020 07:59:00 AM [facility] Name Value Range Interpretation Code Description Data Miroslava rce(s) Supporting Document(s) Levetiracetam [Mass/volume] in Serum or Plasma <1.0 ug/mL 10.0-40.0 L [facility] Verified by repeat analysisThis test was developed and its performance characteristicsdetermined by [facility]. It has not been cleared or approvedby the Food and Drug Administration. ID Date Data Source [id number] 05/15/2020 10:06:00 AM [facility] Name Value Range Interpretation Code Description Data Miroslava rce(s) Supporting Document(s) Triiodothyronine (T3) Free [Mass/volume] in Serum or Plasma 2.5 pg/ mL 2.0-4.4 [facility] ID Date Data Source [id number] 05/14/2020 11:23:00 AM [facility] Name Value Range Interpretation Code Description Data Miroslava rce(s) Supporting Document(s) Thyrotropin [Units/volume] in Serum or Plasma by Detec tion limit <= 0.05 mIU/L 2.43 uIU/mL 0.47 - 5.01 [facility] ID Date Data Source [id number] 05/14/2020 11:23:00 AM [facility] Name Value Range Interpretation Code Description Data Miroslava rce(s) Supporting Document(s) Thyroxine (T4) free index in Serum or Plasma by calculation 1.21 NG/DL 0.93 - 1.70 [facility] ID Date Data Source [id number] 05/14/2020 11:11:00 AM [facility] Name Value Range Interpretation Code Description Data Miroslava rce(s) Supporting Document(s) [facility] Cholesterol [Mass/volume] in Serum or Plasma 140 MG/DL 131 - 200 [facility] Deprecated Triglyceride [Mass/volume] in Serum or Plasma 88 MG/DL 3 5 - 160 [facility] HDL 48 MG/DL 29 - 86 [facility] Cholesterol in LDL [Mass/volume] in Serum or Plasma by Direc t assay 84 mg/dL 65 - 175 [facility] Cholesterol.total/Cholesterol in HDL [Mass Ratio] in Serum o r Plasma 2.9 3.4 - 4.9 L [facility] LDL/HDL 1.75 1.00 - 3.55 [facility] CVE RISK CHOL/HDL LDL/HDLMEN: 1/2 AVERAGE 3.43 1.00 AVERAGE 4.97 3.55 2X AVERAGE 9.55 6.25 3X AVERAGE 23.99 7.99WOMEN: 1/2 AVERAGE 3.27 1.47 AVERAGE 4.44 3.22 2X AVERAGE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 Discharge Date......... ... : 09/13/19 Admit Date ......... : 09/13/19 Admit Phys .................... : SD PADILLA Date of ....... : 1950 Family Phys ................... : NO PCP Phone .................. : [phone] Age ................................ : 69 Film# .................. .:[id number] Sex ................................. : M -- Unsigned transcriptions are preliminary reports and do not represent a medical or legal document CT LOWER EXT RT W/O CONT [id number] COMPLETE:09/13/19 19:12 JASS [id number] Reason(s): R hip injury / pain / [...] DCTRASHAADE SIGNDATEYULY -- 4 Clinical Report - Physicians/[facility] Emergency Department [address] [place] [address] Phone #: ext- [phone] 09/13/2019 16:36 Patient: [...] RARE (NORMAL: NONETroponin-T: (CORINA: 09/13/2019 17:03) ( [facility] 09/13/2019 17:46) Final results Test Result Flag Units (Reference) TROPONIN T 0.01 NG/ML (0.00 - 0.10) TROPONIN T0.1 ng/ml Recommended as the clinical threshold value forTroponin T.Lactic Acid: (CORINA: 09/13/2019 17:03) ( [facility] 09/13/[facility] 17:14) Final results Test Result Flag Units (Reference) LACTIC ACID 3.1 H MMOL/L (0.2 - 2.2)Lipase: (CORINA: 09/13/2019 17:03) ( [facility] 09/13/2019 17:34) Final results Test Result Flag Units (Reference) LIPASE 35 U/L (13 - 60)BNP: (CORINA: 09/13/2019 17:03) ( [facility] 09/13/2019 17:34) Final results Test Result Flag Units (Reference) BNP 688 H PG/ML (0 - 125) 5 Clinical Report - Physicians/Mid Levels [facility] Emergency Department [address] [place] [address] Phone #: ext- [phone] 09/13/2019 16:36 [id number] Sex: M : 1950 Age: 69yCBC w [...] Male GFR Interprentation 20-49 yrs >60 mL/min Qydlae14-48 yrs >56 mL/min Normal 60-69 yrs >49 mL/min Normal 70-79yrs 6 Clinical Report - Physicians/Mid Levels [facility] Emergency Department [address] [place] [address] Phone #: ext- [phone] 09/13/2019 16:36 Patient: ROBERTO RAO Sex: M : 1950 Age: 69y>42 mL/min Normal 80 and above >35 mL/min Normal Female GFRInterpretation 20-39 yrs >60 mL/min Normal 40-49 yrs >58 mL/minNormal 50-59 yrs >51 mL/min Normal 60-69 yrs >45 mL/min Dxjkny63- 79 yrs >39 mL/min Normal 80 and [...] Room: ED Exam CT THORAX W/[place] [address] PHONE: [phone] FAX: [phone] Name .................. : LOUISE James Acct Number.................. : [id number] ROOM. ................. : TR- MR Number ................... : [id number] Stay type ............. : E/R Discharge Date......... ... : 09/13/19 Admit Date ......... : 09/13/19 Admit Phys .................... : SD PADILLA Date of ....... : 1950 Family Phys ................... : NO PCP Phone .................. : [phone] Age ................................ : 69 Film# .................. .:[id number] Sex ................................. : M Unsigned transcriptions are preliminary reports and do not represent a medical or legal document CT THORAX W/O CONTRAST [id number] COMPLETE:09/13/19 19:12 JASS [id number] Reason(s): Trauma/Injury CT SCAN OF THE CHEST [...] are 7 Clinical Report - Physicians/Mid Levels [facility] Emergency Department [address] [place] [address] Phone #: ext- [phone] 09/13/2019 16:36 Patient: ROBERTO RAO Sex: M [...] CT dose: 1309 mGycm Page 1of 2 [place] [address] PHONE: [phone] FAX: [phone] Name .................. : LOUISE James Acct Number.................. : [id number] ROOM. ................. : TR05 MR Number ................... : [id number] Stay type ............. : E/R Discharge Date......... ... : 09/13/19 Admit Date ......... : 09/13/19 Admit Phys .................... : SD PADILLA Date of ....... : 1950 Family Phys ................... : NO PCP Phone .................. : [phone] Age ................................ : 69 Film# .................. .:[id number] Sex ........................ ......... : M Unsigned transcriptions are preliminary reports and do not represent a medical or legal document CT THORAX W/O CONTRAST [id number] COMPLETE:09/13/19 19:12 JASS [id number] Reason(s): Trauma/Injury Electronically Reviewed and Signed By DCTNAME , SIGNDATE, AML Transcribe Initials: DZ , Transcribe Date: 09/13/19 23:24, Dictation Date: <<REPDIST>> Page 2of 2CT ABD PEL W/O Oral W/O IV Contrast: (CORINA: 09/13/2019 16:54) ( MsgRcvd 09/13/2019 23:35) InProgressCT ABDReason(s): Trauma/InjuryTRANSPORTATION: S IV? IV?(Yes) O2? Oxygen?(No) Ro CMTS: Hip pain Exam CT ABD //T// PELV W/O ORAL W/[place] [address] 8 Clinical Report - Physicians/Mid Levels [facility] Emergency Department [address] [place] [address] Phone #: ext- [phone] 09/13/2019 16:36 Patient: ROBERTO RAO Sex: M : 1950 Age: 69y PHONE: [phone] FAX: [phone] Name .................. : LOUISE James Acct Number.................. : [id number] ROOM. ................. : TR-05 MR Number ................... : [id number] Stay type ............. : E/R Discharge Date......... ... : 09/13/19 Admit Date ......... : 09/13/19 Admit Phys .................... : FAREEDS BR Date of ....... : 1950 Family Phys ................... : NO PCP Phone .................. : [phone] Age ......... ....................... : 69 Film# .................. .:[id number] Sex ................................. : M Unsigned transcriptions are [...] of the current study. Page 1of 2 [place] [address] PHONE: [phone] FAX: [phone] Name .................. : LOUISE James Acct Number.................. : [id number] ROOM. ................. : TR-05 MR Number ................... : [id number] Stay type ............. : E/R Discharge Date......... ... : 09/13/19 Admit Date ......... : 09/13/19 Admit Phys .................... : SD PADILLA Date of ....... : 1950 Family Phys ................... : NO PCP 9 Clinical Report - Physicians/Mid Levels [facility] Emergency Department [address] [place] [address] Phone #: ext- [phone] 09/13/2019 16:36 Patient: ROBERTO RAO Sex: M : 1950 Age: 69y Phone .................. : [phone] Age ................................ : 69 Film# .................. .:[id number] Sex ................................. : M Unsigned transcriptions are [...] both the patient and his HCPOA (in [facility]) and they are in agreement that this should be repaired at a higher level of care. (There is no Orthopedics on-call here). I have spoken with [facility] in [place] and Dr. Holland (Accepting hospitalist). She will accept pt. as ambulance transfer. Critical care performed (130 minutes). Time is exclusive of separately billable procedures. 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 Transferred to [facility]. Summary of care (CCDA) provided to transport team, EMS, patient, family and transfer facility via paper and digital media. 18:45 Sep 13 2019 Transfer to [facility] in [place] by ambulance as per Dr. Holland (Accepting [...] and popliteal vein. Oral anticoagulation therapy with detention use, high PT and high INR (Xarelto). [...] rce(s) Supporting Document(s) ID Date Data Source [id number] 09/19/2019 10:15:00 AM EDT [facility] [address] [place] [address] PHONE: [phone] FAX: [phone] Name .................. : LORETTATESS MEJIA Erika Acct Number.................. : [id number] ROOM. ................. : TR-05 MR Number ................... : [id number] Stay type ............. : E/R Discharge Date......... ... : 09/13/19 Admit Date ......... : 09/13/19 Admit Phys .................... : SD PADILLA Date of ....... : 1950 Family Phys ................... : NO PCP Phone .................. : [phone] Age ................................ : 69 Film# .................. .:[id number] Sex ................................. : M Unsigned transcriptions are preliminary reports and do not represent a medical or legal document CT LOWER EXT RT W/O CONT [id number] COMPLETE:09/13/19 19:12 JASS [id number] Reason(s): R hip injury / pain / [...] rce(s) Supporting Document(s) ID Date Data Source [id number] 09/19/2019 10:15:00 [place] [address] PHONE: [phone] FAX: [phone] Name .................. : LOUISE James Acct Number.................. : [id number] ROOM. ................. : TR-05 Number ................... : [id number] Stay type ............. : E/R Discharge Date......... ... : 09/13/19 Admit Date ......... : 09/13/19 Admit Phys .................... : SD PADILLA Date of ....... : 1950 Family Phys ................... : NO PCP Phone .................. : [phone] Age ................................ : 69 Film# .................. .:[id number] Sex ................................. : M Unsigned transcriptions are preliminary reports and do not represent a medical or legal document CT ABD & PELV W/O ORAL W/[place] [address] COMPLETE:09/13/19 19:12 JASS [id number] Reason(s): Trauma/Injury CT SCAN OF THE ABDOMEN [...] the current study. Page 1 of [address] [place] [address] PHONE: [phone] FAX: [phone] Name .................. : LOUISE James Acct Number.................. : [id number] ROOM. ................. : TR-05 MR Number ................... : [id number] Stay type ............. : E/R Discharge Date......... ... : 09/13/19 Admit Date ......... : 09/13/19 Admit Phys .................... : SD PADILLA Date of ....... : 1950 Family Phys ................... : NO PCP Phone .................. : [phone] Age ................................ : 69 Film# .................. .:[id number] Sex ................................. : M Unsigned transcriptions are preliminary reports and do not represent a medical or legal document CT ABD & PELV W/[place] W/[place] [address] COMPLETE:09/13/19 19:12 JASS [id number] Reason(s): Trauma/Injury Evaluation of the visualized skeleton [...] rce(s) Supporting Document(s) ID Date Data Source [id number] 09/19/2019 10:14:00 [place] [address] PHONE: [phone] FAX: [phone] Name .................. : LOUISE MEJIA Erika Acct Number.................. : [id number] ROOM. ................. : TR-05 Number ................... : [id number] Stay type ............. : E/R Discharge Date......... ... : 09/13/19 Admit Date ......... : 09/13/19 Admit Phys .................... : SD PADILLA Date of ....... : 1950 Family Phys ................... : NO PCP Phone .................. : [phone] Age ................................ : 69 Film# .................. .:[id number] Sex ................................. : M Unsigned transcriptions are preliminary reports and do not represent a medical or legal document CT THORAX W/O CONTRAST [id number] COMPLETE:09/13/19 19:12 JASS [id number] Reason(s): Trauma/Injury CT SCAN OF THE CHEST [...] dose: 1309 mGycm Page 1 of 2 [place] [address] PHONE: [phone] FAX: [phone] Name .................. : LOUISE James Acct Number.................. : [id number] ROOM. ................. : TR05 MR Number ................... : [id number] Stay type ............. : E/R Discharge Date......... ... : 09/13/19 Admit Date ......... : 09/13/19 Admit Phys .................... : SD PADLILA Date of ....... : 1950 Family Phys ................... : NO PCP Phone .................. : [phone] Age ................................ : 69 Film# .................. .:[id number] Sex ................................. : M Unsigned transcriptions are preliminary reports and do not represent a medical or legal document CT THORAX W/O CONTRAST 92407 COMPLETE:09/13/19 19:12 JASS [id number] Reason(s): Trauma/Injury Electronically Reviewed and Signed By Jean Carlos jacobo MD , 09/19/19 10:14, AML Transcribe Initials: DANE , Transcribe Date: 09/13/19 23:24, Dictation Date: Copy for: EMERGENCY DEPT via modem Copy for: 710 MED REC DISCHARGED Page 2 of 2 Name Value Range Interpretation Code Description Data Miroslava rce(s) Supporting Document(s) ID Date Data Source [id number] 09/19/2019 09:13:00 AM EDT [facility] Name Value Range Interpretation Code Description Data Miroslava rce(s) Supporting Document(s) COMPREHENSIVE METABOLIC PANEL [facility] COMPREHENSIVE METABOLIC PANEL Sodium [Moles/volume] in Serum or Plasma 142 mEq/L 134 - 153 [facility] Potassium [Moles/volume] in Serum or Plasma 4.0 mEq/L 3.6 - 5.0 [facility] Chloride [Moles/volume] in Serum or Plasma 106 mEq/L 98 - 107 [facility] Carbon dioxide, total [Moles/volume] in Serum or Plasma 27 MEQ/L 22 - 30 [facility] Glucose [Mass/volume] in Serum or Plasma 103 MG/DL 65 - 110 [facility] BUN 13 MG/DL 7 - 21 [facility] al Creatinine [Mass/volume] in Serum or Plasma 0.9 MG/DL 0.7 - 1.5 [facility] BUN/CREAT 14 8 - 27 [facility] Protein [Mass/volume] in Serum or Plasma 5.6 G/DL 6.3 - 8.2 L [facility] Albumin [Mass/volume] in Serum or Plasma 3.2 G/DL 3.9 - 5.0 L [facility] Globulin [Mass/volume] in Serum by calculation 2.4 GM/DL 2.4 - 3.2 [facility] A/G RATIO 1.3 0.8 - 2.0 [facility] Calcium [Mass/volume] in Serum or Plasma 8.5 MG/DL 8.4 - 10.2 [facility] Bilirubin.total [Mass/volume] in Serum or Plasma 0.7 MG/DL 0.2 - 1.3 [facility] Alkaline phosphatase [Enzymatic activity/volume] in Serum or Plasma 50 U/L 38 - 126 [facility] Aspartate aminotransferase [Enzymatic activity/volume] in Serum or Plasma 15 U/L 5 - 40 [facility] Alanine aminotransferase [Enzymatic activity/volume] in Seru m or Plasma <5 U/L 7 - 56 L [facility] Anion gap 3 in Serum or Plasma 9.0 mmol/L 8.0 - 16.0 [facility] AGE 69 yrs [facility] NON-AA GFR >60 mL/min [facility] ital AFR AMER GFR >60 mL/min [facility] Male GFR In terprentation [...] >32 mL/min Normal ID Date Data Source [id number] 09/19/2019 08:54:00 AM EDT [facility] Name Value Range Interpretation Code Description Data Miroslava rce(s) Supporting Document(s) CBC NO DIFF [facility] ital COMPLETE BLOOD COUNT Leukocytes [#/volume] in Blood by Automated count 6.6 10^3/uL 4.2 - 1 1.0 [facility] Erythrocytes [#/volume] in Blood by Automated count 2.94 10^6/uL 4. 50 - 6.30 L [facility] Hemoglobin [Mass/volume] in Blood 9.1 g/dL 14.0 - 16.0 L [facility] Hematocrit [Volume Fraction] of Blood by Automated count 29.0 % 4 1.0 - 51.0 L [facility] Erythrocyte mean corpuscular volume [Entitic volume] by Auto mated count 98.6 fL 80.0 - 94.0 H [facility] Erythrocyte mean corpuscular hemoglobin [Entitic mass] by Automated count 31.0 pg 27.0 - 34.0 [facility] Erythrocyte mean corpuscular hemoglobin concentration [Mass/volume] by Automated count 31.4 g/dL 31.0 - 36.0 [facility] Erythrocyte distribution width [Ratio] by Automated count 14.9 % 11.5 - 14.8 H [facility] Platelets [#/volume] in Blood by Automated count 155 10^3/uL 150 - 45 0 [facility] Platelet mean volume [Entitic volume] in Blood by Automated count 11.5 fL 7.4 - 10.4 H [facility] ID Date Data Source [id number] 09/18/2019 12:38:50 PM EDT [facility] INFORMATIONPatient MRN Name Date of Age Gend*PT [id number] Roberto Rao 1950 69 years M IPPT Location Admission Date/Time Visit ID Attending [id number] 09/13/190 --- Roxy Adame MD([id number]) EPI ID CSN Admitting Provider [id number] Tayler Holland MD([id number]) [facility] DISCHARGE SUMMARYPatient Name: Roberto Rao of : 1950 Age 69 yearsPrimary Physician: No PCP PCP Phone: NoneAdmission Date: 09/13/2019 Discharge Date:He will be discharged from [facility] to [facility] Diagnoses:Principal Problem: Closed fracture of right hip [...] Xarelto, hypertension,hyperlipidemia presents as a transfer from [facility] after a hipfracture due to fall. Imaging showed fracture patient was sent to [facility]. Patient did have a lower extremity [...] BHAVNA MULLEN On 09/14/2019 7:53 AMWorkstation ID: [id number] for Exam: SOB Technique: AP portable view obtained. Comparison: None Findings: Status post median sternotomy. There is elevation of righthemidiaphragm and atelectasis at the right lung base. Left lung is clear.Mediastinal contours appear unremarkable. IMPRESSIONIMPRESSION: Marked elevation of right hemidiaphragm with basilar atelectasis. Report electronically signed by: BHAVNA MULLEN On 09/14/2019 7:54 AMWorkstation ID: [id number] for Exam: R hip fracture Technique: [...] BHAVNA MULLEN On 09/14/2019 7:55 AMWorkstation ID: [id number] for Exam: Fracture Technique: AP portable view [...] BHAVNA MULLEN On 09/14/2019 1:39 PMWorkstation ID: [id number] - [id number] for Exam: hip fx Technique: Fluoroscopy with [...] BHAVNA MULLEN On 09/15/2019 10:53 AMWorkstation ID: [id number] LEReason for Exam: swelling, erythema Technique: Duplex [...] BHAVNA MULLEN On 09/14/2019 8:54 AMWorkstation ID: [id number] Procedures:ORIFConsultants:Orthopedics.Recent Labs:BMP:Lab ResultsComponent Value Date NA 141 09/18/2019 K 3.5 (L) 09/18/2019 CL 111 (H) 09/18/2019 CO2 23 09/18/2019 ANIONGAP 7 09/18/2019 CALCIUM 7.7 (L) 09/18/2019 GLU 113 (H) 09/18/2019 BUN 15 09/18/2019 CREATININE 0.94 09/18/2019 GFRAA >60 09/18/2019 GFRNONAA >60 09/18/2019CBC Brief:Lab ResultsComponent Value Date WBC 6.1 09/18/2019 HGB 8.5 (L) 09/18/2019 HCT 25.7 (L) 09/18/2019 PLT 120 (L) 09/18/2019ROXY ADAEM MD11:51 AMTotal time spent for discharge on date of discharge: 45 minutes Name Value Range Interpretation Code Description Data Miroslava rce(s) Supporting Document(s) ID Date Data Source [id number] 09/18/2019 08:01:02 AM EDT [facility] Name Value Range Interpretation Code Description Data Miroslava rce(s) Supporting Document(s) SODIUM 141 mmol/L (136-145) [facility] POTASSIUM 3.5 mmol/L (3.6-5.2) L [facility] CHLORIDE 111 mmol/L (100-108) H [facility] CO2 23 mmol/L (22-31) [facility] ANION GAP 7 mmol/L (7-16) [facility] UREA NITROGEN 15 mg/dL (7-24) [facility] CREATININE 0.94 mg/dL (0.80-1.30) [facility] BUN/CREAT RATIO 16.0 RATIO (10.0-20.0) [facility] GLUCOSE 113 mg/dL (70-99) H [facility] CALCIUM 7.7 mg/dL (8.4-10.2) L [facility] GFR >60 ml/min/1.73m2 (>59) [facility] GFR ( AMER) >60 ml/min/1.73m2 (>59) [facility] GFR INTERPRETATION Lab [facility] [place] --NORMAL KIDNEY FUNCTION OR MILD DISEASE - GFR >OR= 60CHRONIC KIDNEY DISEASE - GFR 15 - 59RENAL FAILURE - GFR <15 Est. GFR calculation based on the MDRDstudy equation, which assumes a steadystate for creatinine. Est. GFR should notbe used for medication dosing. ID Date Data Source [id number] 09/18/2019 07:40:45 AM EDT [facility] Name Value Range Interpretation Code Description Data Miroslava rce(s) Supporting Document(s) WBC 6.1 10*3/uL (4.1-11.0) [facility] [place] RBC 2.66 10*6/uL (4.60-6.10) L [facility] HGB 8.5 g/dL (13.5-18.0) L [facility] HCT 25.7 % (41.0-53.0) L [facility] MCV 96.5 fL (80.0-95.0) H [facility] MCH 32.0 pg (27.0-32.0) [facility] MCHC 33.2 g/dL (32.0-36.0) [facility] RDW 15.2 % (10.5-14.5) H [facility] PLT 120 10*3/uL (150-450) L [facility] MPV 10.3 fL (7.1-10.7) [facility] ID Date Data Source [id number] 09/17/2019 11:54:29 PM EDT [facility] Name Value Range Interpretation Code Description Data Miroslava rce(s) Supporting Document(s) HCT 26.0 % (41.0-53.0) L [facility] ID Date Data Source [id number] 09/17/2019 02:09:34 PM EDT [facility] Name Value Range Interpretation Code Description Data Miroslava rce(s) Supporting Document(s) HGB 9.3 g/dL (13.5-18.0) L [facility] HCT 27.8 % (41.0-53.0) L [facility] ID Date Data Source [id number] 09/17/2019 08:20:21 AM EDT [facility] Name Value Range Interpretation Code Description Data Miroslava rce(s) Supporting Document(s) SODIUM 143 mmol/L (136-145) [facility] POTASSIUM 3.9 mmol/L (3.6-5.2) [facility] CHLORIDE 112 mmol/L (100-108) H [facility] CO2 23 mmol/L (22-31) [facility] ANION GAP 8 mmol/L (7-16) [facility] UREA NITROGEN 22 mg/dL (7-24) [facility] CREATININE 1.07 mg/dL (0.80-1.30) [facility] BUN/CREAT RATIO 20.6 RATIO (10.0-20.0) H [facility] GLUCOSE 122 mg/dL (70-99) H [facility] CALCIUM 7.7 mg/dL (8.4-10.2) L [facility] GFR >60 ml/min/1.73m2 (>59) [facility] GFR ( AMER) >60 ml/min/1.73m2 (>59) [facility] GFR INTERPRETATION [facility] --NORMAL KIDNEY FUNCTION OR MILD DISEASE - GFR >OR= 60CHRONIC KIDNEY DISEASE - GFR 15 - 59RENAL FAILURE - GFR <15 Est. GFR calculation based on the MDRDstudy equation, which assumes a steadystate for creatinine. Est. GFR should notbe used for medication dosing. ID Date Data Source [id number] 09/17/2019 07:17:53 AM EDT [facility] Name Value Range Interpretation Code Description Data Miroslava rce(s) Supporting Document(s) WBC 6.1 10*3/uL (4.1-11.0) [facility] [place] RBC 2.70 10*6/uL (4.60-6.10) L [facility] HGB 8.6 g/dL (13.5-18.0) L [facility] HCT 25.9 % (41.0-53.0) L [facility] MCV 96.0 fL (80.0-95.0) H [facility] MCH 31.9 pg (27.0-32.0) [facility] MCHC 33.2 g/dL (32.0-36.0) [facility] RDW 15.3 % (10.5-14.5) H [facility] PLT 105 10*3/uL (150-450) L [facility] MPV 10.6 fL (7.1-10.7) [facility] ID Date Data Source [id number] 09/16/2019 11:09:48 AM EDT [facility] Name [...] USING THIS METHOD. ID Date Data Source [id number] 09/16/2019 10:51:05 AM EDT [facility] Name Value Range Interpretation Code Description Data Miroslava rce(s) Supporting Document(s) FERRITIN @ 454 ng/mL (26-388) H [facility] ID Date Data Source [id number] 09/16/2019 10:51:05 AM EDT [facility] Name Value Range Interpretation Code Description Data Miroslava rce(s) Supporting Document(s) IRON,TOTAL @ 31 ug/dL (35-150) L [facility] NIVIA RESULT VERIFIED BY REPEAT TESTING. UIBC @ 157 ug/dL (130-375) [facility] TIBC @ 188 ug/dL (250-450) L [facility] % SATURATION 16 % (12-50) [facility] [place] ID Date Data Source [id number] 09/16/2019 09:00:03 AM EDT [facility] Name Value Range Interpretation Code Description Data Miroslava rce(s) Supporting Document(s) WBC 5.7 10*3/uL (4.1-11.0) [facility] [place] RBC 2.96 10*6/uL (4.60-6.10) L [facility] HGB 9.4 g/dL (13.5-18.0) L [facility] HCT 28.2 % (41.0-53.0) L [facility] MCV 95.0 fL (80.0-95.0) [facility] MCH 31.8 pg (27.0-32.0) [facility] MCHC 33.5 g/dL (32.0-36.0) [facility] RDW 15.0 % (10.5-14.5) H [facility] PLT 106 10*3/uL (150-450) L [facility] MPV 9.6 fL (7.1-10.7) [facility] ID Date Data Source [id number] 09/16/2019 08:02:20 AM EDT [facility] Name Value Range Interpretation Code Description Data Miroslava rce(s) Supporting Document(s) MAGNESIUM 2.0 mg/dL (1.7-2.4) [facility] ID Date Data Source [id number] 09/16/2019 08:02:20 AM EDT [facility] Name Value Range Interpretation Code Description Data Miroslava rce(s) Supporting Document(s) SODIUM 138 mmol/L (136-145) [facility] POTASSIUM 4.3 mmol/L (3.6-5.2) [facility] CHLORIDE 107 mmol/L (100-108) [facility] CO2 20 mmol/L (22-31) L [facility] ANION GAP 11 mmol/L (7-16) [facility] UREA NITROGEN 19 mg/dL (7-24) [facility] CREATININE 1.25 mg/dL (0.80-1.30) [facility] BUN/CREAT RATIO 15.2 RATIO (10.0-20.0) [facility] GLUCOSE 139 mg/dL (70-99) H [facility] CALCIUM 8.1 mg/dL (8.4-10.2) L [facility] GFR 57 ml/min/1.73m2 (>59) L [facility] GFR ([facility]) >60 ml/min/1.73m2 (>59) [facility] GFR INTERPRETATION [facility] --NORMAL KIDNEY FUNCTION OR MILD DISEASE - GFR >OR= 60CHRONIC KIDNEY DISEASE - GFR 15 - 59RENAL FAILURE - GFR <15 Est. GFR calculation based on the MDRDstudy equation, which assumes a steadystate for creatinine. Est. GFR should notbe used for medication dosing. ID Date Data Source [id number] 09/16/2019 08:02:30 AM EDT [facility] Name Value Range Interpretation Code Description Data Miroslava rce(s) Supporting Document(s) CALCIUM IONIZED 5.44 mg/dL (4.64-5.28) H [facility] IONIZED CALCIUM NORMALIZED TO PH 7.40 AN D 37 DEGREES C. ID Date Data Source [id number] 09/16/2019 12:21:23 AM EDT [facility] Name Value Range Interpretation Code Description Data Miroslava rce(s) Supporting Document(s) HCT 31.2 % (41.0-53.0) L [facility] ID Date Data Source [id number] 09/15/2019 11:36:29 PM EDT [facility] Name Value Range Interpretation Code Description Data Miroslava rce(s) Supporting Document(s) URINE WBC (0-5) [facility] URINE RBC (0-2) [facility] BACTERIA 1+ [HPF] [facility] MUCUS 2+ [HPF] [facility] HYALINE CASTS [facility] ID Date Data Source [id number] 09/15/2019 11:22:58 PM EDT [facility] Name Value Range Interpretation Code Description Data Miroslava rce(s) Supporting Document(s) COLOR [facility] APPEARANCE [facility] SPEC GRAV URINE 1.037 (1.003-1.030) H [facility] PH URINE 5.5 (5.0-7.5) [facility] LEUK ESTERASE (NEG) A [facility] NITRITE URINE (NEG) [facility] PROTEIN URINE (NEG) A [facility] GLUCOSE URINE (NEG) [facility] KETONE URINE (NEG) A [facility] [place] UROBILINOGEN 1.0 mg/dL (0-1.0) [facility] [place] BILIRUBIN URINE (NEG) [facility] BLOOD/HGB URINE (NEG)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 Name Value Range Interpretation Code Description Data Miroslava rce(s) Supporting Document(s) 25 HYDROXY VIT D @ 24 ng/mL (31-100) L Lab [facility] erika [facility] A REVIEW OF THE LITERATURE SUGGESTS THEF OLLOWING RANGES FOR THE CLASSIFICATIONOF 25-OH VITAMIN D STATUS: VITAMIN D STATUS 25-OH VITAMIN D DEFICIENCY <20 NG/MLINSUFFICIENCY 20-30 NG/MLSUFFICIENCY 31 - 100 NG/MLTOXICITY > 100 NG/ML A PEDIATRIC REFERENCE RANGE HAS NOT BEENESTABLISHED USING THIS METHOD. ID Date Data Source [id number] 09/14/2019 10:39:57 AM EDT [facility] Name Value Range Interpretation Code Description Data Miroslava rce(s) Supporting Document(s) FERRITIN @ 257 ng/mL (26-388) [facility] ID Date Data Source [id number] 09/14/2019 10:39:57 AM EDT [facility] Name Value Range Interpretation Code Description Data Miroslava rce(s) Supporting Document(s) CHOLESTEROL @ 124 mg/dL (0-200) Lab [facility] TRIGLYCERIDE @ 86 mg/dL (30-200) Lab [facility] HDL CHOLESTEROL @ 42 mg/dL (>40) Lab [facility] PER NCEP ATP III GUIDELINES:RESULTS LOWE R THAN 40 MG/DL ARE SUGGESTIVEOF INCREASED RISK FOR CORONARY ARTERYDISEASE. RESULTS > OR = TO 60 MG/DL ARECONSIDERED A NEGATIVE RISK FACTOR. CHOL/HDL RATIO 3.0 RATIO [facility] INTERPRETATION OF CHOL-HDL RATIO CHD RISK FEMALE MALEVERY HIGH >8.3 >14.3HIGH 5.6- 8.3 6.7- 14.3AVERAGE 3.7- 5.6 4.0- 6.7BELOW AVERAGE 2.5- 3.7 2.7- 4.0PROTECTED <2.5 <2.7 LDL CHOL (CALC) 65 mg/dL (<130) [facility] [place] [facility] PER NCEP ATP III GUIDELINES: OPTIMAL < 100 NEAR OPTIMAL 100 - 129BORDERLINE HIGH 130 - 159 HIGH 160 - 189 VERY HIGH > 189 ID Date Data Source [id number] 09/14/2019 12:49:23 AM EDT [facility] [place] [facility] SPEC EXP DATE 09/16/2019PATI ENT ABO/Rh A POSITIVEANTIBODY SCREEN NEGATIVETESTING SITE PERFORMED AT [address] [place] [address] Name Value Range Interpretation Code Description Data Miroslava rce(s) Supporting Document(s) TYPE AND SCREEN [facility] [place] [facility] ID Date Data Source [id number] 09/13/2019 11:52:39 PM EDT [facility] [place] [facility] Name Value Range Interpretation Code Description Data Miroslava rce(s) Supporting Document(s) HEMOGLOBIN A1C @ 5.8 % (4.0-6.0) [facility] [place] [facility] Performed using Siemens Pocahontas immunoassa y.Care must be taken when interpreting KsI7vhcbudcx in patients with a hemoglobin variantor decreased erythrocyte lifespan. Values 5.7 - 6.4% suggest prediabetes.Values >=6.5% are diagnostic for diabetes.REFERENCE: DIABETES CARE 2018: 41(S13-S27).PERFORMED AT [address] [place] [address] EST AVERAGE GLUCOSE 120 mg/dL [facility] ID Date Data Source [id number] 09/13/2019 11:52:14 PM EDT [facility] [place] [facility] Name Value Range Interpretation Code Description Data Miroslava rce(s) Supporting Document(s) TROPONIN I <0.05 ng/mL (<0.05) [facility] [place] Less than 0.05: Myocardial injury unlike lyGreater than or equal to 0.05: Highly suggestive of myocardial injuryCorrelation with rise and/or fall ofserial troponins, clinical symptomsand ECG changes is necessary. ID Date Data Source [id number] 09/13/2019 11:52:14 PM EDT [facility] Name Value Range Interpretation Code Description Data Miroslava rce(s) Supporting Document(s) FREE THYROXINE @ 1.40 ng/dL (0.76-1.46) [facility] PERFORMED AT [address] [place] [address] N [place] [address] ID Date Data Source [id number] 09/13/2019 11:52:14 PM EDT [facility] Name Value Range Interpretation Code Description Data Miroslava rce(s) Supporting Document(s) TSH,ULTRASENSITIVE @ 4.197 mIU/L (0.360-4.170) H [facility] [place] [facility] PERFORMED AT [address] [place] [address] N Y [address] ID Date Data Source [id number] 09/13/2019 11:52:14 PM EDT [facility] Name Value Range Interpretation Code Description Data Miroslava rce(s) Supporting Document(s) NT PRO BNP 885 pg/mL (0-125) H [facility] [place] [facility] ID Date Data Source [id number] 09/13/2019 11:52:14 PM EDT [facility] Name Value Range Interpretation Code Description Data Miroslava rce(s) Supporting Document(s) TOTAL PROTEIN 7.0 g/dL (6.4-8.2) [facility] ALBUMIN 3.7 g/dL (3.2-4.5) [facility] GLOBULIN 3.3 g/dL (2.7-4.3) [facility] [facility] ALB/GLOB RATIO 1.1 RATIO [facility] [facility] BILIRUBIN,TOTAL 0.9 mg/dL (0.0-1.0) [facility] [place] [facility] PLEASE NOTE:Total bilirubin results may be falselyelevated in patients taking Eltrombopag. BILIRUBIN,CONJUGATED 0.3 mg/dL (0.0-0.3) [facility] BILIRUBIN,UNCONJ. 0.6 mg/dL (0.0-0.7) [facility] [facility] ALKALINE PHOSPHATASE 75 U/L (45-117) [facility] AST (SGOT) 14 U/L (11-39) [facility] [place] [facility] ALT (SGPT) 15 U/L (12-78) [facility] ID Date Data Source [id number] 09/13/2019 11:44:34 PM EDT [facility] Name Value Range Interpretation Code Description Data Miroslava rce(s) Supporting Document(s) MAGNESIUM 1.7 mg/dL (1.7-2.4) [facility] [facility] ID Date Data Source [id number] 09/13/2019 11:44:34 PM EDT [facility] Name Value Range Interpretation Code Description Data Miroslava rce(s) Supporting Document(s) SODIUM 141 mmol/L (136-145) [facility] POTASSIUM 4.1 mmol/L (3.6-5.2) [facility] CHLORIDE 109 mmol/L (100-108) H [facility] CO2 25 mmol/L (22-31) [facility] ANION GAP 7 mmol/L (7-16) [facility] UREA NITROGEN 17 mg/dL (7-24) [facility] CREATININE 1.23 mg/dL (0.80-1.30) [facility] BUN/CREAT RATIO 13.8 RATIO (10.0-20.0) [facility] GLUCOSE 107 mg/dL (70-99) H [facility] CALCIUM 8.3 mg/dL (8.4-10.2) L [facility] GFR 58 ml/min/1.73m2 (>59) L [facility] GFR ( AMER) >60 ml/min/1.73m2 (>59) [facility] GFR INTERPRETATION [facility] --NORMAL KIDNEY FUNCTION OR MILD DISEASE - GFR >OR= 60CHRONIC KIDNEY DISEASE - GFR 15 - 59RENAL FAILURE - GFR <15 Est. GFR calculation based on the MDRDstudy equation, which assumes a steadystate for creatinine. Est. GFR should notbe used for medication dosing. ID Date Data Source [id number] 09/13/2019 11:37:58 PM EDT [facility] Name Value Range Interpretation Code Description Data Miroslava rce(s) Supporting Document(s) APTT 38.1 s (22.0-34.3) H [facility] ID Date Data Source [id number] 09/13/2019 11:37:58 PM EDT [facility] Name Value Range Interpretation Code Description Data Miroslava rce(s) Supporting Document(s) PT 16.2 s (9.2-11.9) H [facility] INR 1.58 [facility] SUGGESTED THERAPEUTIC RANGES USING INR F ORSTABILIZED ANTICOAGULATED PATIENTS:STANDARD DOSE THERAPY INR 2.0-3.0 DVT, PE, PREVENT DVT OR EMBOLISMHIGH DOSE THERAPY INR 2.5-3.5 PREVENT EMBOLISM FROM MECHANICAL HEART VALVE ID Date Data Source [id number] 09/13/2019 11:18:31 PM EDT [facility] Name Value Range Interpretation Code Description Data Miroslava rce(s) Supporting Document(s) WBC 6.5 10*3/uL (4.1-11.0) [facility] RBC 3.94 10*6/uL (4.60-6.10) L [facility] HGB 12.3 g/dL (13.5-18.0) L [facility] HCT 37.3 % (41.0-53.0) L [facility] MCV 94.7 fL (80.0-95.0) [facility] MCH 31.4 pg (27.0-32.0) [facility] MCHC 33.1 g/dL (32.0-36.0) [facility] RDW 14.8 % (10.5-14.5) H [facility] PLT 167 10*3/uL (150-450) [facility] MPV 9.2 fL (7.1-10.7) [facility] NEUT % 77.4 % (35.0-75.0) H [facility] LYMPH % 11.5 % (16.0-52.0) L [facility] MONO % 9.9 % (0.0-8.0) H [facility] EOS % 0.7 % (0.0-5.0) [facility] BASO % 0.5 % (0.0-4.0) [facility] NEUT # 5.0 10*3/uL (1.8-7.7) [facility] LYMPH # 0.7 10*3/uL (1.2-4.8) L [facility] MONO # 0.6 10*3/uL (0.0-0.8) [facility] Eosinophils [#/volume] in Blood by Automated count 0.0 10*3/uL (0.0-0 .5) [facility] BASO # 0.0 10*3/uL (0.0-0.2) [facility] ID Date Data Source [id number] 09/13/2019 06:29:00 PM EDT [facility] Name Value Range Interpretation Code Description Data Miroslava rce(s) Supporting Document(s) [facility] Yellow NORMAL: Yellow [facility] CLARITY Clear NORMAL: Clear [facility] Specific gravity of Urine by Test strip 1.020 1.001 - 1.030 [facility] pH 5 5 - 9 [facility] Glucose [Mass/volume] in Urine by Test strip NORM NORMAL: Negat [facility] Bilirubin.total [Presence] in Urine by Test strip NEG NORMAL: Negative [facility] Ketones [Presence] in Urine by Test strip NEG NORMAL: Negative [facility] Protein [Mass/volume] in Urine by Test strip NEG NORMAL: Negat [facility] Nitrite [Presence] in Urine by Test strip NEG NORMAL: Negative [facility] BLOOD 25 NORMAL: Negative A [facility] Leukocyte esterase [Presence] in Urine by Test strip NEG ALEX L: Negative [facility] Urobilinogen [Mass/volume] in Urine by Test strip NOR less hugo n 1.0 mg/dL [facility] MICROSCOPIC See Below [facility] ital Erythrocytes [#/volume] in Urine by Test strip 1 - 3 NORMAL: NON E SEEN [facility] EPITHELIAL FEW NORMAL: NONE SEEN [facility] Amorphous sediment [Presence] in Urine sediment by Light rajendra roscopy RARE NORMAL: NONE SEEN [facility] ID Date Data Source [id number] 09/13/2019 07:33:00 PM EDT [facility] Value Range Interpretation Code Description Data Miroslava rce(s) Supporting Document(s) aPTT in Blood by Coagulation assay 37.7 SECONDS 24.8 - 36.7 H [facility] ID Date Data Source [id number] 09/13/2019 07:33:00 PM EDT [facility] Name Value Range Interpretation Code Description Data Miroslava rce(s) Supporting Document(s) Prothrombin time (PT) 18.3 SECONDS 11.0 - 15.5 H [facility] INR in Platelet poor plasma by Coagulation assay 1.50 0.93 - 1. 23 H [facility] \\BLDo\\INR INTERPRETATION\\BLDx\\ Therapeutic range for Coumadin and related oral 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s. - International Normalized Ratio (INR): 2.0 - 3.0 for Venous Thrombosis, Pulmonary Embolus, Tissue heart valves, Acute DC, Atrial Fibrillation, Valvular heart disease and recurrent Systemic Embolism. -International Normalized Ratio (INR): 2.5 - 3.5 for Mechanical Prosthetic valve. ID Date Data Source [id number] 09/13/2019 05:46:00 PM EDT [facility] Name Value Range Interpretation Code Description Data Miroslava rce(s) Supporting Document(s) TROPONIN T 0.01 NG/ML 0.00 - 0.10 [facility] spital TROPONIN T0.1 ng/ml Recommended as the c linical threshold value forTroponin T. ID Date Data Source [id number] 09/13/2019 05:34:00 PM T [facility] Value Range Interpretation Code Description Data Miroslava rce(s) Supporting Document(s) Fibrin D-dimer FEU [Mass/volume] in Platelet poor plasma 19. 52 ug/mL 0.27 - 0.50 H [facility] ID Date Data Source [id number] 09/13/2019 05:34:00 PM T [facility] Value Range Interpretation Code Description Data Miroslava rce(s) Supporting Document(s) Creatine kinase [Enzymatic activity/volume] in Serum or Plasma 5 8 U/L 30 - 170 [facility] ID Date Data Source [id number] 09/13/2019 05:34:00 PM EDT [facility] Name Value Range Interpretation Code Description Data Miroslava rce(s) Supporting Document(s) COMPREHENSIVE METABOLIC PANEL [facility] COMPREHENSIVE METABOLIC PANEL Sodium [Moles/volume] in Serum or Plasma 143 mEq/L 134 - 153 [facility] Potassium [Moles/volume] in Serum or Plasma 4.2 mEq/L 3.6 - 5.0 [facility] Chloride [Moles/volume] in Serum or Plasma 104 mEq/L 98 - 107 [facility] Carbon dioxide, total [Moles/volume] in Serum or Plasma 26 MEQ/L 22 - 30 [facility] Glucose [Mass/volume] in Serum or Plasma 97 MG/DL 65 - 110 [facility] BUN 18 MG/DL 7 - 21 [facility] Creatinine [Mass/volume] in Serum or Plasma 1.3 MG/DL 0.7 - 1.5 [facility] BUN/CREAT 14 8 - 27 [facility] Protein [Mass/volume] in Serum or Plasma 7.2 G/DL 6.3 - 8.2 [facility] Albumin [Mass/volume] in Serum or Plasma 4.3 G/DL 3.9 - 5.0 [facility] Globulin [Mass/volume] in Serum by calculation 2.9 GM/DL 2.4 - 3.2 [facility] A/G RATIO 1.5 0.8 - 2.0 [facility] Calcium [Mass/volume] in Serum or Plasma 9.3 MG/DL 8.4 - 10.2 [facility] Bilirubin.total [Mass/volume] in Serum or Plasma <0.7 MG/DL 0.2 - 1.3 [facility] Alkaline phosphatase [Enzymatic activity/volume] in Serum or Plasma 73 U/L 38 - 126 [facility] Aspartate aminotransferase [Enzymatic activity/volume] in Serum or Plasma 17 U/L 5 - 40 [facility] Alanine aminotransferase [Enzymatic activity/volume] in Seru m or Plasma 9 U/L 7 - 56 [facility] Anion gap 3 in Serum or Plasma 13.0 mmol/L 8.0 - 16.0 [facility] 69 [facility] 58 mL/min [facility] AFR AMER GFR >60 mL/min [facility] Male GFR In terprentation [...] >32 mL/min Normal ID Date Data Source [id number] 09/13/2019 05:34:00 PM EDT [facility] Name Value Range Interpretation Code Description Data Miroslava rce(s) Supporting Document(s) Lipase [Enzymatic activity/volume] in Serum or Plasma 35 U/L 13 - 60 [facility] ID Date Data Source [id number] 09/13/2019 05:34:00 PM EDT [facility] Name Value Range Interpretation Code Description Data Miroslava rce(s) Supporting Document(s) BNP 688 PG/ML 0 - 125 H [facility] ID Date Data Source [id number] 09/13/2019 05:14:00 PM EDT [facility] Name Value Range Interpretation Code Description Data Miroslava rce(s) Supporting Document(s) CBC W/AUTOMATED DIFF [facility] COMPLETE BLOOD COUNT Leukocytes [#/volume] in Blood by Automated count 5.8 10^3/uL 4.2 - 1 1.0 [facility] Erythrocytes [#/volume] in Blood by Automated count 3.99 10^6/uL 4. 50 - 6.30 L [facility] Hemoglobin [Mass/volume] in Blood 12.4 g/dL 14.0 - 16.0 L [facility] Hematocrit [Volume Fraction] of Blood by Automated count 38.2 % 4 1.0 - 51.0 L [facility] Erythrocyte mean corpuscular volume [Entitic volume] by Auto mated count 95.7 fL 80.0 - 94.0 H [facility] Erythrocyte mean corpuscular hemoglobin [Entitic mass] by Automated count 31.1 pg 27.0 - 34.0 [facility] Erythrocyte mean corpuscular hemoglobin concentration [Mass/volume] by Automated count 32.5 g/dL 31.0 - 36.0 [facility] Erythrocyte distribution width [Ratio] by Automated count 13.7 % 11.5 - 14.8 [facility] Platelets [#/volume] in Blood by Automated count 177 10^3/uL 150 - 45 0 [facility] Platelet mean volume [Entitic volume] in Blood by Automated count 10.4 fL 7.4 - 10.4 [facility] Neutrophils/100 leukocytes in Blood by Automated count 71.5 % 37. 0 - 80.0 [facility] Lymphocytes/100 leukocytes in Blood by Manual count 16.6 % 25.0 - 40.0 L [facility] Monocytes/100 leukocytes in Blood by Automated count 8.2 % 3.0 - 8.0 H [facility] Eosinophils/100 leukocytes in Blood by Automated count 2.9 % 0.0 - 7.0 [facility] Basophils/100 leukocytes in Blood by Automated count 0.5 % 0.0 - 2.0 [facility] %IG 0.3 % 0.0 - 0.0 [facility] %NRBC 0.0 % 0.0 - 0.0 [facility] al Neutrophils [#/volume] in Blood by Automated count 4.17 10^3/uL 2.00 - 6.90 [facility] Lymphocytes [#/volume] in Blood by Automated count 0.97 10^3/uL 0.60 - 3.40 [facility] Monocytes [#/volume] in Blood by Automated count 0.48 10^3/uL 0.00 - 0.90 [facility] Eosinophils [#/volume] in Blood by Automated count 0.17 10^3/uL 0.00 - 0.70 [facility] Basophils [#/volume] in Blood by Automated count 0.03 10^3/uL 0.00 - 0.20 [facility] #IG 0.02 10^3/uL 0.00 - 0.10 [facility] ospital #NRBC 0.00 10^3/uL 0.00 - 0.00 [facility]sp[facility] MANUAL DIFF NOT INDICATED [facility] RBC MORPH NOT INDICATED [facility] ID Date Data Source [id number] 09/13/2019 05:14:00 PM EDT [facility] Name Value Range Interpretation Code Description Data Miroslava rce(s) Supporting Document(s) Lactate [Moles/volume] in Serum or Plasma 3.1 MMOL/L 0.2 - 2.2 H [facility] ID Date Data Source [id number] 08/16/2019 10:21:23 AM EDT [facility] Name Value Range Interpretation Code Description Data Miroslava rce(s) Supporting Document(s) Discharge Summary [facility] IPWJOa9hJvQWUjPo22/GCNhdSOLvj3ObZRnhCXa5BOzjIGYbE1EbGCZ1mZ7cUIO0LBpWPjGvHxYfRgTy lbm [file] ICAgICAgICAgICAgICAgICAgICAgICAgICAgICAgIC AgICAgICAgICAgICAgICAgICAgICAgICANCiAgICAgICAgICAgICAgICAgICAgICAgICAgICAgICAgIC AgICAgICAgICAgICAgICAgICAgICAgICAgICAgICAgICAgICAgICAgICAgICAgICAgICAgICAgICAgIC AgICAgICANCiAgICAgICAgICAgICAgICAgICAgICAg ICAgICAgICAgICAgICAgICAgICAgICAgICAgICAgICAgICAgICAgICAgICAgICAgICAgICAgICAgICAg ICAgICAgICAgICAgICAgICANCiAgICAgICAgICAgICAgICAgICAgICAgICAgICAgICAgICAgICAgICAg ICAgICAgICAgICAgICAgICAgICAgICAgICAgICAgIC AgICAgICAgICAgICAgICAgICAgICAgICAgICANCiAgICAgICAgICAgICAgICAgICAgICAgICAgICAgIC AgICAgICAgICAgICAgICAgICAgICAgICAgICAgICAgICAgICAgICAgICAgICAgICAgICAgICAgICAgIC AgICAgICAgICANCiAgICAgICAgICAgICAgICAgICAg ICAgICAgICAgICAgICAgICAgICAgICAgICAgICAgICAgICAgICAgICAgICAgICAgICAgICAgICAgICAg ICAgICAgICAgICAgICAgICAgICANCiAgICAgICAgICAgICAgICAgICAgICAgICAgICAgICAgICAgICAg ICAgICAgICAgICAgICAgICAgICAgICAgICAgICAgIC AgICAgICAgICAgICAgICAgICAgICAgICAgICAgICANCiAgICAgICAgICAgICAgICAgICAgICAgICAgIC AgICAgICAgICAgICAgICAgICAgICAgICAgICAgICAgICAgICAgICAgICAgICAgICAgICAgICAgICAgIC AgICAgICAgICAgICANCiAgICAgICAgICAgICAgICAg ICAgICAgICAgICAgICAgICAgICAgICAgICAgICAgICAgICAgICAgICAgICAgICAgICAgICAgICAgICAg ICAgICAgICAgICAgICAgICAgICAgICANCiAgICAgICAgICAgICAgICAgICAgICAgICAgICAgICAgICAg ICAgICAgICAgICAgICAgICAgICAgICAgICAgICAgIC AgICAgICAgICAgICAgICAgICAgICAgICAgICAgICAgICANCjw/uFVaR3thwARkcyW1R6oaYm6LJj1IIH 7de0ZyMUUiCCdwrhLaDimOMrTfPJHkGyeFFet1NKukWS0AtCLxE3WsO2KoDLjwIJ2BFRDhAYPzbJWdVE WuKIEtYeI9ODLtGKcbPG8UwZAwMGcyVTXeQRYwTdJx YZCkUNXoDLDyKCDuHVKLMPSrSOByXcBvOBGkBGWjEK1LEAYkX169fmVqAy5ZXc4MJbZrTU9sfp1ZKpKb OWWlEhvQByr4SIyjBV4VdHGqaJRzOqKrYHQTFwXbP1qvb3VhEnBvGTSRJDmiGH5Ar7SxlMLkSLv+Pg0K QC5ia3FwWBdfTzOxNM2ymn6BJGaEZsYbL9LwjChfHZ Uja1SpAFDzTGIKzR5kTXS8HVD3VUDjVdIxPIqaQKVHP6h5GRKQAMUudHGaMjG8IbQhUgLjUOF1HDDaQG 1wKFzyEO0TNED0JSzhVQRaKDHkC2bNVzLqCZSkAwWufQrlLM0XEvMqZ5HczjFhqIHbVsAsSMYJGh1+DQ wgzuLmNfaUKkA7IDZqh8HcFVx2EU2YYGOpELexMV0X TDQcbQ2rDFyvMQ6AOsWwYGKvMHRRShJxL14hkOTsFYg7Z2MuGbOdIVNiLacoCTMqEUpzMbJuHTCwGiRv DQogID4+ID4+VMgyOI9ESPelupRfDTRzSd8EUVUwDVKaLU7fQEDgCJDuH3E8aRkiOVONNkGeS4txqkww IL1aMXCsB616hQdwvyKgSCSoXHKmTt0EINBuFUD0EU YiwESiYyZeQBXHFVwdXV2PwLMpAXC8mI9eOZamTUPnWVOkA5gZDuBecUunSK51vSlpxcQutOVxDEe+Pg 4ERZ2jx4NhQNs0cfMjZTqnUHA0KGzqCXSiVCYpJEZkRBY8LKN7SQONAvZeAZWbVDUvKQuoENCgUFGuuk 7HZPVpHUGoThE0YJNqZDSoDKDeGOqwLXGpMIV6ZTF4 EFLgXLQxQF7BIwSjQJInDVEbIFrqOEJgFWOlit5AMTTcJLBrTmE9MqSoPXUwTHTbGMqdTNGfLLJrTsth IOHrKNYpFV1VIxIuUHAcNXK9QPKrALVfBYMzsv8GIXRfBPNzLjo6EDEhTMWwNMOmTJazKPXdLENtACT5 BJZyNFObZJ7AZnThCEGbMQBhDNVrHNQwMYLgdz6SFA IgNHLsUhmqUWXoFWXjOPGpIKlvFEPzWWK6NFMlVAHyZIIgNX4CThHkFAChHEV0UygkKALcBDZowc2NJW FeFYKgIhU0IFNhYSBfSQJdIIjdQHIbYON1TyOzQHVxPEFjTR7ROlRlCQQmDQq6SXCoHYUtDWQshh1BLI SdIRTxYFWoUsQwQLTgLNNpLVczLKLcNMK4FyLxYMGq TKPzAO5YObJmECDnPOh4ESVwHRXmSBXgak4LFSVbCPQhDPm2CYAtCBScEREoYNoyOIWoJGM3SJN7JLFq AOJsPL6ZVjRgMNRrMpTqBPRmSJKjVATcsf9QLQUjSPUtSZZkWXKvBTMxHBHzYMijVGMbXBZvSxTjYSEz ZDQqUF1LGwZmVOFpIpT1KJReGMNfSLYnmo3HOFAdBP SwVjU1DLLcOPGrYHTkTEdpDLNrBOV7AjM3WVLxLOUxDD3NSaKhFHXwNtR8GjSdUPViIYSmxp7JFRVnZV DfVjGvLDEiETJnURXwVTalIIFoSON4TbY7KWHkCEBnML3WMhBwUHWjSur9AhQzIOSxNYYfrk3UUIQsQU DtGZS6NMWeZETeODXuCSvcHXAzJJG9PxX2SFGfIWJp OI0QDxLwNKXlZhdqLykgSWUtKNHhrm3BxIPlcQlziw5OVYwPFw2BlZtwXSU3RFlnMx7ubPNrPKIqVSTS Hz1PvgXmLIRbVDDUVCghBCUvZOQ6AMS5LVEaJVouKGKzEBVbYKIvKnT9QQK3LrB9FWCnDdT8Jth1VkWu SFZqJBVqEvCrYUQ1MzY7RGh4ZScdDVluCPY+IF0g DQo+Ct9Zr0AyfyX8shOkNIcnFYJeCq3RAHSQM1YPJw== ID Date Data Source [id number] 08/14/2019 03:15:03 PM EDT [facility] Name Value Range Interpretation Code Description Data Miroslaav rce(s) Supporting Document(s) Consultation [facility] RGHMBj5vWyQKIlWv57/SCBhsXGRcw3SvNJdxLYc9QTbjSLYcM1CcXES5bW5jBHF1CHvLThNxAeGrEdC4 lbm [file] yEfj0+vz7ED1AEIiPJsikFlTMkBy5jklOtCl2L+ [file] NzQ4AwW3CsEcACI2VhR+NC2xKKo+Lk0Nj5OytjA2hoCqBKl5XKT4Cf0PDCDKV4CZAi== ID Date Data Source [id number] 08/14/2019 03:22:10 AM EDT [facility] Name Value Range Interpretation Code Description Data Miroslava rce(s) Supporting Document(s) Leukocytes [#/volume] in Blood by Automated count 5.1 10*3/uL 4-10 [facility] Erythrocytes [#/volume] in Blood by Automated count 3.88 10*6/uL 4.6- 6.1 L [facility] Hemoglobin [Mass/volume] in Blood 12.5 g/dL 13.5-18 L [facility] Hematocrit [Volume Fraction] of Blood by Automated count 37.0 % 4 1-53 L [facility] Erythrocyte mean corpuscular volume [Entitic volume] by Auto mated count 95.4 fL 80-96 [facility] Erythrocyte mean corpuscular hemoglobin [Entitic mass] by Automated count 32.2 pg 27-33 [facility] Erythrocyte mean corpuscular hemoglobin concentration [Mass/volume] by Automated count 33.7 g/dL 32.0-[facility].0 [facility] distribution width [Ratio] by Automated count 14.3 % 11.5-14.5 [facility] Platelets [#/volume] in Blood by Automated count 195 10*3/uL 150-400 [facility] Differential cell count method - Blood [facility] Neutrophils/100 leukocytes in Blood by Automated count 60 % [facility] Lymphocytes/100 leukocytes in Blood by Automated count 25 % [facility] Monocytes/100 leukocytes in Blood by Automated count 9 % [facility] Eosinophils/100 leukocytes in Blood by Automated count 5 % [facility] Basophils/100 leukocytes in Blood by Automated count 1 % [facility] Neutrophils [#/volume] in Blood by Automated count 3.03 10*3/uL 1.8-7 .0 [facility] Lymphocytes [#/volume] in Blood by Automated count 1.27 10*3/uL 1.2-4 .0 [facility] Monocytes [#/volume] in Blood by Automated count 0.46 10*3/uL 0-0.8 [facility] Eosinophils [#/volume] in Blood by Automated count 0.23 10*3/uL 0-0.5 [facility] Basophils [#/volume] in Blood by Automated count 0.07 10*3/uL 0-0.2 [facility] Nucleated erythrocytes/100 leukocytes [Ratio] in Blood by Automated count 0 /100{WBCs} 0-0 [facility] ID Date Data Source [id number] 08/14/2019 03:39:49 AM EDT [facility] Name Value Range Interpretation Code Description Data Miroslava rce(s) Supporting Document(s) Bicarbonate [Moles/volume] in Serum 22 mmol/L 22-29 [facility] Chloride [Moles/volume] in Serum or Plasma 104 mmol/L 98-107 [facility] Creatinine [Mass/volume] in Serum or Plasma 1.34 mg/dL 0.70-1.20 H [facility] Glucose [Mass/volume] in Serum or Plasma 103 mg/dL 70-140 [facility] Potassium [Moles/volume] in Serum or Plasma 3.6 mmol/L 3.4-5.1 [facility] Sodium [Moles/volume] in Serum or Plasma 139 mmol/L 136-145 [facility] Urea nitrogen [Mass/volume] in Serum or Plasma 16 mg/dL 8-23 [facility] Anion gap 3 in Serum or Plasma 13 mmol/L 01-10 [facility] Osmolality of Serum or Plasma by calculation 289 mosm/kg 275-300 [facility] Creatinine/Urea nitrogen [Mass Ratio] in Serum or Plasma 12 [facility] Calcium [Mass/volume] in Serum or Plasma 9.0 mg/dL 8.8-10.2 [facility] Glomerular filtration rate/1.73 sq M pre dicted among non-blacks [Volume Rate/Area] in Serum or Plasma by Creatinine-based formula (MDRD) 52 mL/min/1.73m2 >60 L [facility] Glomerular filtration rate/1.73 sq M pre dicted among blacks [Volume Rate/Area] in Serum or Plasma by Creatinine-based formula (MDRD) 61 mL/min/1.73m2 >60 [facility] ID Date Data Source [id number] 08/13/2019 04:18:23 AM EDT [facility] Name Value Range Interpretation Code Description Data Miroslava rce(s) Supporting Document(s) Bicarbonate [Moles/volume] in Serum 22 mmol/L 22-29 [facility] Chloride [Moles/volume] in Serum or Plasma 102 mmol/L 98-107 [facility] Creatinine [Mass/volume] in Serum or Plasma 1.40 mg/dL 0.70-1.20 H [facility] Glucose [Mass/volume] in Serum or Plasma 106 mg/dL 70-140 [facility] Potassium [Moles/volume] in Serum or Plasma 3.7 mmol/L 3.4-5.1 [facility] Sodium [Moles/volume] in Serum or Plasma 137 mmol/L 136-145 [facility] Urea nitrogen [Mass/volume] in Serum or Plasma 16 mg/dL 01-18 [facility] Anion gap 3 in Serum or Plasma 13 mmol/L 01-10 [facility] Osmolality of Serum or Plasma by calculation 286 mosm/kg 275-300 [facility] Creatinine/Urea nitrogen [Mass Ratio] in Serum or Plasma 11 [facility] Calcium [Mass/volume] in Serum or Plasma 8.4 mg/dL 8.8-10.2 L [facility] Glomerular filtration rate/1.73 sq M pre dicted among non-blacks [Volume Rate/Area] in Serum or Plasma by Creatinine-based formula (MDRD) 50 mL/min/1.73m2 >60 L [facility] Glomerular filtration rate/1.73 sq M pre dicted among blacks [Volume Rate/Area] in Serum or Plasma by Creatinine-based formula (MDRD) 58 mL/min/1.73m2 >60 L [facility] ID Date Data Source [id number] 08/08/2019 07:38:00 AM EDT [facility] 1 OrderSheet [facility] Emergency Department [address] [place] [address] Phone #: [phone] kpj- [phone] 08/08/2019 07:38 Patient: ROBERTO RAO Sex: M [...] Amanda Dey R.N. (13:19 08/08/2019)] 2 OrderSheet [facility] Emergency Department [address] [place] [address] Phone #: ext- [phone] 08/08/2019 07:38 Patient: ROBERTO RAO Sex: M : 1950 Age: 69y[Electronically signed by Alex Vogt Physician (10:43 08/09/2019)][Electronically locked by Amanda Dey R.N. (13:19 08/08/2019)] Name Value Range Interpretation Code Description Data Miroslava rce(s) Supporting Document(s) ID Date Data Source [id number] 08/08/2019 07:38:00 AM EDT [facility] 1 Medication Reconciliation Report [facility] Emergency Department [address] [place] [address] Phone #: ext- [phone] 08/08/2019 07:38 Patient: ROBERTO RAO Sex: M [...] rce(s) Supporting Document(s) ID Date Data Source [id number] 08/08/2019 07:38:00 AM EDT [facility] 1 Medication Administration Record [facility] Emergency Department [address] [place] [address] Phone #: ext- [phone] 08/08/2019 07:38 Patient: [...] rce(s) Supporting Document(s) ID Date Data Source [id number] 08/08/2019 07:38:00 AM EDT [facility] 1 General Instructions [facility] Emergency Department [address] [place] [address] Phone #: ext- [phone] 08/08/2019 07:38 Patient: [...] rce(s) Supporting Document(s) ID Date Data Source [id number] 08/08/2019 07:38:00 AM EDT [facility] 1 Clinical Report - Nurses [facility] Emergency Department [address] [place] [address] Phone #: ext- [phone] 08/08/2019 07:38 Patient: [...] Dey R.N.Divalproex Sodium. --08:08 08/08/19 Amanda Dey R.N.Feuxiil12:43 08/08/19.SOCIAL HX: Never smoker. He has not [...] Dey R.N. 2 Clinical Report - Nurses [facility] Emergency Department [address] [place] [address] Phone #: ext- [phone] 08/08/2019 07:38 ------ Patient: ROBERTO RAO [facility]#: [id number] Sex: M : 1950 Age: 69y FALL [...] RR: 18. O2 saturation: 97%. --09:18 08/08/19 [place] [facility] 10:01 08/08/19. BP: 106/73. MAP: 84. HR: 123. RR: 25. O2 saturation: 98%. --10:01 08/08/19 [place] [facility] 11:00 08/08/19. BP: 112/71. MAP: 84. HR: 130. RR: 21. O2 saturation: 97%. --11:00 08/08/19 [place] [facility] 11:07 08/08/2019 Site #1 started [...] IV patency 3 Clinical Report - Nurses [facility] Emergency Department [address] [place] [address] Phone #: ext- [phone] 08/08/2019 07:38 Patient: [...] RR: 17. O2 saturation: 97%. --13:01 08/08/19 [facility] TechAmanda ER Tech1 13:09 08/08/19. BP: 96/60. HR: 115. RR: 21. O2 saturation: 98%. Temp: 99.3 F. Pain level now 11/05. --13:10 08/08/19 Amanda Dey R.N.DISPOSITION / DISCHARGE 13:11 08/08/19. The patient left via ambulance and on a stretcher. Transferred to [facility]. Provided to EMS and transfer facility. --13:11 [...] rce(s) Supporting Document(s) ID Date Data Source [id number] 08/08/2019 07:38:00 AM EDT [facility] 1 Clinical Report - Physicians/Mid Levels [facility] Emergency Department [address] [place] [address] Phone #: ext- [phone] 08/08/2019 07:38 Patient: [...] NOTES 2 Clinical Report - Physicians/Mid Levels [facility] Emergency Department [address] [place] [address] Phone #: ext- [phone] 08/08/2019 07:38 Patient: [...] 36.0) 3 Clinical Report - Physicians/Mid Levels [facility] Emergency Department [address] [place] [address] Phone #: ext- [phone] 08/08/2019 0 7:38 Patient: ROBERTO RAO Sex: [...] Male GFR Interprentation 20-49 yrs >60 mL/min Juxetz04-93 yrs >56 mL/min Normal 60- 69 yrs >49 mL/min Normal 70-79yrs>42 mL/min Normal 80 and above >35 mL/min Normal Female GFRInterpretation 20-39 yrs >60 mL/min Normal 40-49 yrs >58 mL/minNormal 50-59 yrs >51 mL/min Normal 60-69 yrs >45 mL/min Znyksm29-27 yrs >39 mL/min Normal 80 and above [...] Exam 4 Clinical Report - Physicians/Mid Levels [facility] Emergency Department [address] [place] [address] Phone #: ext- [phone] 08/08/2019 07:38 Patient: ORBERTO RAO Sex: M : 1950 Age: 69y [place] [address] PHONE: [phone] FAX: [phone] Name .................. : LOUISE James Acct Number.................. : [id number] ROOM. ................. : TR-[id number] MR Number ................... : [id number] Stay type ............. : E/R Discharge Date......... ... : Admit Date ......... : 08/08/19 Admit Phys .................... : VENERUS BR Date of ....... : 1950 Family Phys ................... : NO PCP Phone .................. : [phone] Age ................................ : 69 Film# .................. .:[id number] Sex ................................. : M Unsigned transcriptions are preliminary reports and do not represent a medical or legal document [employer] [id number] COMPLETE:08/08/19 09:30 [facility] [id number] (REASON FOR PROCESS: DVT BILATERAL LOWER EXTREMITY [...] - Unremarkable, except H/H 12.9 / 45, Door 8.7CMP - UnremarkableEKG - Accelerated junctional rhythm with occas extra beats, incomplete RBBB, old inf. infarct.). 5 Clinical Report - Physicians/Mid Levels [facility] Emergency Department [address] [place] [address] Phone #: ext- [phone] 08/08/2019 07:38 Patient: ROBERTO RAO Sex: M : 1950 Age: 69yPROGRESS AND PROCEDURESCourse of Care: 10:12 Aug 08 2019. Patient is stable. 10:12 Aug 08 2019. Pt. has bilateral LE edema and cellultis bu no DVT on ultrasound. He has an open wound on dorsum of R foot. 10:59 Aug 08 2019. Will transfer to [facility] as direct admit as per Dr. Maloney [...] explained to patient and caregiver. Transferred to [facility]. Summary of care (CCDA) provided [...] rce(s) Supporting Document(s) ID Date Data Source [id number] 08/08/2019 07:38:00 AM [facility] for ROBERTO RAO VisitID: [id number] Date: 11:15Lab results reviewed, preliminary wound culture results show ew Gram Negative Vicki [facility] [phone] fax(Electronically signed by Nilsa Jay RN - 08/10/2019 11:15)08/12/2019 14:58WOUND CULTURE AND SENSITITY FAXED TO [facility] [phone](Electronically signed by Sandy Fletcher R.N. - 08/12/2019 14:58) Name Value Range Interpretation Code Description Data Miroslava rce(s) Supporting Document(s) ID Date Data Source [id number] 08/12/2019 11:22:00 AM EDT [facility] [address] [place] [address] PHONE: [phone] FAX: [phone] Name ..............: LOUISE MEJIA EAcct Number ..........................: [id number] ROOM. ............: [facility]03 MR Number ............................: [id number] Stay type.........: E/R Discharge Date...............:08/08/19 Admit Date .....: 08/08/19 Admit Phys .............................: VENERUS BR Date of ..: 1950 Family Phys ...........................: NO PCP Phone..............: [phone] Age.................................:69 Fi lm# ...............:[id number] Sex.................................:M Unsigned transcriptions are preliminary reports and do not represent a medical or legal document EKG [id number] COMPLETE:08/09/19 01:54 T [id number] Please See Scanned Results. Name Value Range Interpretation Code Description Data Miroslava rce(s) Supporting Document(s) ID Date Data Source [id number] 08/12/2019 06:34:39 AM EDT [facility] Name Value Range Interpretation Code Description Data Miroslava rce(s) Supporting Document(s) Leukocytes [#/volume] in Blood by Automated count 4.2 10*3/uL 4-10 [facility] Erythrocytes [#/volume] in Blood by Automated count 3.73 10*6/uL 4.6- 6.1 L [facility] Hemoglobin [Mass/volume] in Blood 12.1 g/dL 13.5-18 L [facility] Hematocrit [Volume Fraction] of Blood by Automated count 35.4 % 4 1-53 L [facility] Erythrocyte mean corpuscular volume [Entitic volume] by Auto mated count 95.1 fL 80-96 [facility] Erythrocyte mean corpuscular hemoglobin [Entitic mass] by Automated count 32.4 pg 27-33 [facility] Erythrocyte mean corpuscular hemoglobin concentration [Mass/volume] by Automated count 34.1 g/dL [facility].0-[facility].0 [facility] width [Ratio] by Automated count 14.4 % 11.5-14.5 [facility] Platelets [#/volume] in Blood by Automated count 188 10*3/uL 150-400 [facility] Differential cell count method - Blood [facility] Neutrophils/100 leukocytes in Blood by Automated count 61 % [facility] Lymphocytes/100 leukocytes in Blood by Automated count 21 % [facility] Monocytes/100 leukocytes in Blood by Automated count 12 % [facility] Eosinophils/100 leukocytes in Blood by Automated count 5 % [facility] Basophils/100 leukocytes in Blood by Automated count 1 % [facility] Neutrophils [#/volume] in Blood by Automated count 2.55 10*3/uL 1.8-7 .0 [facility] Lymphocytes [#/volume] in Blood by Automated count 0.88 10*3/uL 1.2-4 .0 L [facility] Monocytes [#/volume] in Blood by Automated count 0.48 10*3/uL 0-0.8 [facility] Eosinophils [#/volume] in Blood by Automated count 0.22 10*3/uL 0-0.5 [facility] Basophils [#/volume] in Blood by Automated count 0.04 10*3/uL 0-0.2 [facility] Nucleated erythrocytes/100 leukocytes [Ratio] in Blood by Automated count 0 /100{WBCs} 0-0 [facility] ID Date Data Source [id number] 08/12/2019 06:40:14 AM [facility] Name Value Range Interpretation Code Description Data Miroslava rce(s) Supporting Document(s) Bicarbonate [Moles/volume] in Serum 20 mmol/L 22-29 L [facility] Chloride [Moles/volume] in Serum or Plasma 102 mmol/L 98-107 [facility] Creatinine [Mass/volume] in Serum or Plasma 1.34 mg/dL 0.70-1.20 H [facility] Glucose [Mass/volume] in Serum or Plasma 108 mg/dL 70-140 [facility] Potassium [Moles/volume] in Serum or Plasma 3.6 mmol/L 3.4-5.1 [facility] Sodium [Moles/volume] in Serum or Plasma 137 mmol/L 136-145 [facility] Urea nitrogen [Mass/volume] in Serum or Plasma 16 mg/dL 8-23 [facility] Anion gap 3 in Serum or Plasma 15 mmol/L 8-15 [facility] Osmolality of Serum or Plasma by calculation 286 mosm/kg 275-300 [facility] Creatinine/Urea nitrogen [Mass Ratio] in Serum or Plasma 12 [facility] Calcium [Mass/volume] in Serum or Plasma 8.7 mg/dL 8.8-10.2 L [facility] Glomerular filtration rate/1.73 sq M pre dicted among non-blacks [Volume Rate/Area] in Serum or Plasma by Creatinine-based formula (MDRD) 52 mL/min/1.73m2 >60 L [facility] Glomerular filtration rate/1.73 sq M pre dicted among blacks [Volume Rate/Area] in Serum or Plasma by Creatinine-based formula (MDRD) 61 mL/min/1.73m2 >60 [facility] ID Date Data Source [id number] 08/11/2019 07:13:35 AM [facility] Value Range Interpretation Code Description Data Miroslava rce(s) Supporting Document(s) Leukocytes [#/volume] in Blood by Automated count 5.0 10*3/uL 4-10 [facility] Erythrocytes [#/volume] in Blood by Automated count 4.07 10*6/uL 4.6- 6.1 [facility] Hemoglobin [Mass/volume] in Blood 13.2 g/dL 13.5-18 L [facility] Hematocrit [Volume Fraction] of Blood by Automated count 39.4 % 4 1-53 L [facility] Erythrocyte mean corpuscular volume [Entitic volume] by Auto mated count 96.8 fL 80-96 H [facility] Erythrocyte mean corpuscular hemoglobin [Entitic mass] by Automated count 32.4 pg 27-33 [facility] Erythrocyte mean corpuscular hemoglobin concentration [Mass/volume] by Automated count 33.5 g/dL 32.0-36.0 [facility] Erythrocyte distribution width [Ratio] by Automated count 14.4 % 11.5-14.5 [facility] Platelets [#/volume] in Blood by Automated count 191 10*3/uL 150-400 [facility] Differential cell count method - Blood [facility] Neutrophils/100 leukocytes in Blood by Automated count 66 % [facility] Lymphocytes/100 leukocytes in Blood by Automated count 20 % [facility] Monocytes/100 leukocytes in Blood by Automated count 10 % [facility] Eosinophils/100 leukocytes in Blood by Automated count 3 % [facility] Basophils/100 leukocytes in Blood by Automated count 1 % [facility] Neutrophils [#/volume] in Blood by Automated count 3.33 10*3/uL 1.8-7 .0 [facility] Lymphocytes [#/volume] in Blood by Automated count 0.98 10*3/uL 1.2-4 .0 L [facility] Monocytes [#/volume] in Blood by Automated count 0.49 10*3/uL 0-0.8 [facility] Eosinophils [#/volume] in Blood by Automated count 0.17 10*3/uL 0-0.5 [facility] Basophils [#/volume] in Blood by Automated count 0.04 10*3/uL 0-0.2 [facility] Nucleated erythrocytes/100 leukocytes [Ratio] in Blood by Automated count 0 /100{WBCs} 0-0 [facility] ID Date Data Source [id number] 08/11/2019 07:35:00 AM EDT [facility] Name Value Range Interpretation Code Description Data Miroslava rce(s) Supporting Document(s) Bicarbonate [Moles/volume] in Serum 19 mmol/L 22-29 L [facility] Chloride [Moles/volume] in Serum or Plasma 100 mmol/L 98-107 [facility] Creatinine [Mass/volume] in Serum or Plasma 1.20 mg/dL 0.70-1.20 [facility] Glucose [Mass/volume] in Serum or Plasma 104 mg/dL 70-140 [facility] Potassium [Moles/volume] in Serum or Plasma 3.8 mmol/L 3.4-5.1 [facility] Sodium [Moles/volume] in Serum or Plasma 135 mmol/L 136-145 L [facility] Urea nitrogen [Mass/volume] in Serum or Plasma 19 mg/dL 8-23 [facility] Anion gap 3 in Serum or Plasma 17 mmol/L 8-15 H [facility] Osmolality of Serum or Plasma by calculation 283 mosm/kg 275-300 [facility] Creatinine/Urea nitrogen [Mass Ratio] in Serum or Plasma 16 [facility] Calcium [Mass/volume] in Serum or Plasma 8.9 mg/dL 8.8-10.2 [facility] Glomerular filtration rate/1.73 sq M pre dicted among non-blacks [Volume Rate/Area] in Serum or Plasma by Creatinine-based formula (MDRD) 60 mL/min/1.73m2 >60 L [facility] Glomerular filtration rate/1.73 sq M pre dicted among blacks [Volume Rate/Area] in Serum or Plasma by Creatinine-based formula (MDRD) 69 mL/min/1.73m2 >60 [facility] ID Date Data Source [id number] 08/10/2019 09:05:34 AM [facility] Name Value Range Interpretation Code Description Data Miroslava rce(s) Supporting Document(s) Vancomycin [Mass/volume] in Serum or Plasma --trough 17.8 ug/mL 10.0- 20.0 [facility] ID Date Data Source [id number] 08/10/2019 05:48:30 AM [facility] Name Value Range Interpretation Code Description Data Miroslava rce(s) Supporting Document(s) Leukocytes [#/volume] in Blood by Automated count 5.4 10*3/uL 4-10 [facility] Erythrocytes [#/volume] in Blood by Automated count 3.93 10*6/uL 4.6- 6.1 [facility] Hemoglobin [Mass/volume] in Blood 12.7 g/dL 13.5-18 L [facility] Hematocrit [Volume Fraction] of Blood by Automated count 37.8 % 4 1-53 L [facility] Erythrocyte mean corpuscular volume [Entitic volume] by Auto mated count 96.2 fL 80-96 H [facility] Erythrocyte mean corpuscular hemoglobin [Entitic mass] by Automated count 32.3 pg 27-33 [facility] Erythrocyte mean corpuscular hemoglobin concentration [Mass/volume] by Automated count 33.6 g/dL 32.0-36.0 [facility] Erythrocyte distribution width [Ratio] by Automated count 14.7 % 11.5-14.5 H [facility] Platelets [#/volume] in Blood by Automated count 189 10*3/uL 150-400 [facility] Differential cell count method - Blood [facility] Neutrophils/100 leukocytes in Blood by Automated count 62 % [facility] Lymphocytes/100 leukocytes in Blood by Automated count 23 % [facility] Monocytes/100 leukocytes in Blood by Automated count 8 % [facility] Eosinophils/100 leukocytes in Blood by Automated count 5 % [facility] Basophils/100 leukocytes in Blood by Automated count 2 % [facility] Neutrophils [#/volume] in Blood by Automated count 3.38 10*3/uL 1.8-7 .0 [facility] Lymphocytes [#/volume] in Blood by Automated count 1.24 10*3/uL 1.2-4 .0 [facility] Monocytes [#/volume] in Blood by Automated count 0.44 10*3/uL 0-0.8 [facility] Eosinophils [#/volume] in Blood by Automated count 0.26 10*3/uL 0-0.5 [facility] Basophils [#/volume] in Blood by Automated count 0.12 10*3/uL 0-0.2 [facility] Nucleated erythrocytes/100 leukocytes [Ratio] in Blood by Automated count 0 /100{WBCs} 0-0 [facility] ID Date Data Source [id number] 08/10/2019 05:50:57 AM EDT [facility] Name Value Range Interpretation Code Description Data Miroslava rce(s) Supporting Document(s) Bicarbonate [Moles/volume] in Serum 20 mmol/L 22-29 L [facility] Chloride [Moles/volume] in Serum or Plasma 101 mmol/L 98-107 [facility] Creatinine [Mass/volume] in Serum or Plasma 1.49 mg/dL 0.70-1.20 H [facility] Glucose [Mass/volume] in Serum or Plasma 111 mg/dL 70-140 [facility] Potassium [Moles/volume] in Serum or Plasma 4.0 mmol/L 3.4-5.1 [facility] Sodium [Moles/volume] in Serum or Plasma 137 mmol/L 136-145 [facility] Urea nitrogen [Mass/volume] in Serum or Plasma 22 mg/dL 8-23 [facility] Anion gap 3 in Serum or Plasma 16 mmol/L 8-15 [facility] Osmolality of Serum or Plasma by calculation 288 mosm/kg 275-300 [facility] Creatinine/Urea nitrogen [Mass Ratio] in Serum or Plasma 14 [facility] Calcium [Mass/volume] in Serum or Plasma 9.0 mg/dL 8.8-10.2 [facility] Glomerular filtration rate/1.73 sq M pre dicted among non-blacks [Volume Rate/Area] in Serum or Plasma by Creatinine-based formula (MDRD) 46 mL/min/1.73m2 >60 L [facility] Glomerular filtration rate/1.73 sq M pre dicted among blacks [Volume Rate/Area] in Serum or Plasma by Creatinine-based formula (MDRD) 53 mL/min/1.73m2 >60 L [facility] ID Date Data Source [id number] 08/09/2019 04:24:49 PM EDT [facility] Name Value Range Interpretation Code Description Data Miroslava rce(s) Supporting Document(s) Consultation [facility] PYQSOn6yCjRKKbSp80/UCApkTMUpp3KvEWpeQXt9GImrKYPbZ9IsCKB6iM7yXVE0TFcXQtZxGcLrGuPu [facility] [file] J5GGxZVg4oeqItVLswqnK9qOEB7Gqki0u2VD+PERSONAL SUPPORT WORKER/G9 [file] FryndaWrqZ7ErUAGrUKHnZru+car conditioner/BrqXnO6GYp5iqIhqNbyUkfELTvkQ3EHqlDcTlNq1L9Cnf82Ny3Ow [file] pan charger+prMP/zR2b43GLeBXUrhWBjc7bBsbc09A3I9By [file] Lp/b7WLY1q+R+OEHDx+n6LVwDeN1xbj3MyqAHG+BUILDING SERVICES TECHNICIAN [file] writer++Xx8 [file] xZgqK1isO6KNK+nonprofit financial controller+sNjeuOIRKnHyqmgU77AbKOq+Kh/KFVtrAZ9Z0ACZscNnvWDrfQQxCWy3qNWG6ey [file] [id number] ID Date Data Source [id number] 08/09/2019 03:39:00 [place] [address] PHONE: [phone] FAX: [phone] Name .................. : LOUISE MEJIA Erika Acct Number.................. : [id number] ROOM. ................. : TR03 Number ................... : [id number] Stay type ............. : E/R Discharge Date......... ... : Admit Date ......... : 07/27 07/18 Admit Phys .................... : SD PADILLA Date of ....... : 1950 Family Phys ................... : NO PCP Phone .................. : [phone] Age ................................ : 69 Film# .................. .:[id number] Sex ................................. : M Unsigned transcriptions are preliminary reports and do not represent a medical or legal document DOPPLER VENOUS BILAT LEG [id number] COMPLETE:08/08/19 09:30 [facility] [id number] (REASON FOR PROCESS: DVT BILATERAL LOWER EXTREMITY [...] rce(s) Supporting Document(s) ID Date Data Source [id number] 08/09/2019 01:02:40 PM EDT [facility] Name Value Range Interpretation Code Description Data Miroslava rce(s) Supporting Document(s) Bicarbonate [Moles/volume] in Serum 20 mmol/L 22-29 L [facility] Chloride [Moles/volume] in Serum or Plasma 101 mmol/L 98-107 [facility] Creatinine [Mass/volume] in Serum or Plasma 1.26 mg/dL 0.70-1.20 H [facility] Glucose [Mass/volume] in Serum or Plasma 104 mg/dL 70-140 [facility] Potassium [Moles/volume] in Serum or Plasma 3.8 mmol/L 3.4-5.1 [facility] Sodium [Moles/volume] in Serum or Plasma 135 mmol/L 136-145 L [facility] Urea nitrogen [Mass/volume] in Serum or Plasma 19 mg/dL 8-23 [facility] Anion gap 3 in Serum or Plasma 14 mmol/L 8-15 [facility] Osmolality of Serum or Plasma by calculation 283 mosm/kg 275-300 [facility] Creatinine/Urea nitrogen [Mass Ratio] in Serum or Plasma 15 [facility] Calcium [Mass/volume] in Serum or Plasma 8.8 mg/dL 8.8-10.2 [facility] Glomerular filtration rate/1.73 sq M pre dicted among non-blacks [Volume Rate/Area] in Serum or Plasma by Creatinine-based formula (MDRD) 57 mL/min/1.73m2 >60 L [facility] Glomerular filtration rate/1.73 sq M pre dicted among blacks [Volume Rate/Area] in Serum or Plasma by Creatinine-based formula (MDRD) 65 mL/min/1.73m2 >60 [facility] ID Date Data Source [id number] 08/09/2019 09:40:52 AM EDT [facility] Name Value Range Interpretation Code Description Data Miroslava e(s) Supporting Document(s) Consultation [facility] WAHIHi9cAmCJDkNq10/UXEhlXKPbb2ShEDuaHEr8PBmyQREjT6LuPMI7pM7sTUU6YVdQIzFgLhZxRaJg lbm [file] [id number]= ID Date Data Source [id number] 08/08/2019 10:39:[address] [facility] CT LOWER EXTREMITY WITH CONTRAST [id number] NAL RESULTInterpreted by:BRENDA SaldivarROCEDURE INFORMATION: Exam: CT [...] rce(s) Supporting Document(s) ID Date Data Source [id number] 08/13/2019 09:00:12 AM [facility] Cmnt XXX-Imp : RAMicroorganism X XX Cult : No growth (qualifier value) Name Value Range Interpretation Code Description Data Miroslava rce(s) Supporting Document(s) ID Date Data Source [id number] 08/13/2019 09:00:12 AM [facility] Service Cmnt XXX-Imp : LAMicroorganism X XX Cult : No growth (qualifier value) Name Value Range Interpretation Code Description Data Miroslava rce(s) Supporting Document(s) ID Date Data Source [id number] 08/08/2019 07:37:32 PM [facility] Name Value Range Interpretation Code Description Data Miroslava rce(s) Supporting Document(s) Leukocytes [#/volume] in Blood by Automated count 6.3 10*3/uL 4-10 [facility] Erythrocytes [#/volume] in Blood by Automated count 4.09 10*6/uL 4.6- 6.1 L [facility] Hemoglobin [Mass/volume] in Blood 13.1 g/dL 13.5-18 L [facility] Hematocrit [Volume Fraction] of Blood by Automated count 39.4 % 4 1-53 L [facility] Erythrocyte mean corpuscular volume [Entitic volume] by Auto mated count 96.2 fL 80-96 H [facility] Erythrocyte mean corpuscular hemoglobin [Entitic mass] by Automated count 31.9 pg 27-33 [facility] Erythrocyte mean corpuscular hemoglobin concentration [Mass/volume] by Automated count 33.2 g/dL 32.0-36.0 [facility] Erythrocyte distribution width [Ratio] by Automated count 14.7 % 11.5-14.5 H [facility] Platelets [#/volume] in Blood by Automated count 226 10*3/uL 150-400 [facility] Differential cell count method - Blood [facility] Neutrophils/100 leukocytes in Blood by Automated count 72 % [facility] Lymphocytes/100 leukocytes in Blood by Automated count 14 % [facility] Monocytes/100 leukocytes in Blood by Automated count 12 % [facility] Eosinophils/100 leukocytes in Blood by Automated count 1 % [facility] Basophils/100 leukocytes in Blood by Automated count 1 % [facility] Neutrophils [#/volume] in Blood by Automated count 4.63 10*3/uL 1.8-7 .0 [facility] Lymphocytes [#/volume] in Blood by Automated count 0.87 10*3/uL 1.2-4 .0 L [facility] Monocytes [#/volume] in Blood by Automated count 0.74 10*3/uL 0-0.8 [facility] Eosinophils [#/volume] in Blood by Automated count 0.05 10*3/uL 0-0.5 [facility] Basophils [#/volume] in Blood by Automated count 0.05 10*3/uL 0-0.2 [facility] Nucleated erythrocytes/100 leukocytes [Ratio] in Blood by Automated count 0 /100{WBCs} 0-0 [facility] ID Date Data Source [id number] 08/08/2019 07:44:37 PM EDT [facility] Name Value Range Interpretation Code Description Data Miroslava rce(s) Supporting Document(s) Prothrombin time (PT) 21.0 s 12.5-14.9 H [facility] INR in Platelet poor plasma by Coagulation assay 1.74 [facility] Routine intensity oral anticoagulation I NR is typically 2.0-3.0. Target INR must be clinically individualized. ID Date Data Source [id number] 08/08/2019 07:51:15 PM EDT [facility] Name Value Range Interpretation Code Description Data Miroslava rce(s) Supporting Document(s) Albumin [Mass/volume] in Serum or Plasma by Bromocresol green (BCG) dye binding method 3.8 g/dL 3.5-5.2 [facility] Bilirubin.total [Mass/volume] in Serum or Plasma 1.2 mg/dL <1.2 H [facility] Calcium [Mass/volume] in Serum or Plasma 9.0 mg/dL 8.8-10.2 [facility] Chloride [Moles/volume] in Serum or Plasma 100 mmol/L 98-107 [facility] Creatinine [Mass/volume] in Serum or Plasma 1.24 mg/dL 0.70-1.20 H [facility] Glucose [Mass/volume] in Serum or Plasma 99 mg/dL 70-140 [facility] Alkaline phosphatase [Enzymatic activity/volume] in Serum or Plasma 65 U/L 40-129 [facility] Potassium [Moles/volume] in Serum or Plasma 4.4 mmol/L 3.4-5.1 [facility] Protein [Mass/volume] in Serum or Plasma 7.3 g/dL 6.4-8.3 [facility] Sodium [Moles/volume] in Serum or Plasma 136 mmol/L 136-145 [facility] Aspartate aminotransferase [Enzymatic activity/volume] in Serum or Plasma 21 U/L <40 [facility] Urea nitrogen [Mass/volume] in Serum or Plasma 19 mg/dL 8-23 [facility] Osmolality of Serum or Plasma by calculation 284 mosm/kg 275-300 [facility] Creatinine/Urea nitrogen [Mass Ratio] in Serum or Plasma 15 [facility] Bicarbonate [Moles/volume] in Serum 20 mmol/L 22-29 L [facility] Alanine aminotransferase [Enzymatic activity/volume] in Seru m or Plasma 10 U/L <41 [facility] Anion gap 3 in Serum or Plasma 16 mmol/L 8-15 H [facility] Albumin/Globulin [Mass Ratio] in Serum or Plasma 1.0 [facility] Glomerular filtration rate/1.73 sq M pre dicted among non-blacks [Volume Rate/Area] in Serum or Plasma by Creatinine-based formula (MDRD) 58 mL/min/1.73m2 >60 L [facility] Glomerular filtration rate/1.73 sq M pre dicted among blacks [Volume Rate/Area] in Serum or Plasma by Creatinine-based formula (MDRD) 67 mL/min/1.73m2 >60 [facility] ID Date Data Source [id number] 08/08/2019 07:03:36 PM EDT [facility] US DOPPLER LOWER EXTREMITY UNILATERAL VE NOUS LIMITED [id number] RESULTInterpreted by:Julisa Hearn, MDPROCEDURE INFORMATION: Exam: US [...] rce(s) Supporting Document(s) ID Date Data Source [id number] 08/08/2019 06:14:38 PM EDT [facility] Name Value Range Interpretation Code Description Data Miroslava rce(s) Supporting Document(s) History and Physical [facility] CYIRLi0bEvWCZqTt38/IBJduZVLgo1AhLLsyKCm5ZTaqVXXtB2IlZHM2hP0rBKO3ITkLCrMyXiOhGpGf m [file] ICAgICAgICAgICAgICAgICAgICAgICAgICAgICAgIC AgICAgICAgICAgICAgICAgICAgICAgICAgICAgICAgICAgICANCiAgICAgICAgICAgICAgICAgICAgIC AgICAgICAgICAgICAgICAgICAgICAgICAgICAgICAgICAgICAgICAgICAgICAgICAgICAgICAgICAgIC AgICAgICAgICAgICAgICAgICANCiAgICAgICAgICAg ICAgICAgICAgICAgICAgICAgICAgICAgICAgICAgICAgICAgICAgICAgICAgICAgICAgICAgICAgICAg ICAgICAgICAgICAgICAgICAgICAgICAgICAgICANCiAgICAgICAgICAgICAgICAgICAgICAgICAgICAg ICAgICAgICAgICAgICAgICAgICAgICAgICAgICAgIC AgICAgICAgICAgICAgICAgICAgICAgICAgICAgICAgICAgICAgICANCiAgICAgICAgICAgICAgICAgIC AgICAgICAgICAgICAgICAgICAgICAgICAgICAgICAgICAgICAgICAgICAgICAgICAgICAgICAgICAgIC AgICAgICAgICAgICAgICAgICAgICANCiAgICAgICAg ICAgICAgICAgICAgICAgICAgICAgICAgICAgICAgICAgICAgICAgICAgICAgICAgICAgICAgICAgICAg ICAgICAgICAgICAgICAgICAgICAgICAgICAgICAgICANCiAgICAgICAgICAgICAgICAgICAgICAgICAg ICAgICAgICAgICAgICAgICAgICAgICAgICAgICAgIC AgICAgICAgICAgICAgICAgICAgICAgICAgICAgICAgICAgICAgICAgICANCiAgICAgICAgICAgICAgIC AgICAgICAgICAgICAgICAgICAgICAgICAgICAgICAgICAgICAgICAgICAgICAgICAgICAgICAgICAgIC AgICAgICAgICAgICAgICAgICAgICAgICANCiAgICAg ICAgICAgICAgICAgICAgICAgICAgICAgICAgICAgICAgICAgICAgICAgICAgICAgICAgICAgICAgICAg ICAgICAgICAgICAgICAgICAgICAgICAgICAgICAgICAgICANCiAgICAgICAgICAgICAgICAgICAgICAg ICAgICAgICAgICAgICAgICAgICAgICAgICAgICAgIC AgICAgICAgICAgICAgICAgICAgICAgICAgICAgICAgICAgICAgICAgICAgICANCjw/gCBvG2cxwIPlma Y6K0gsIk5XWn2QYW7vs3ZsUKRmJVbrzbZfDxgCJvIaHIEgCqgOYws0HFlnJS2CaSFjS9LdV3XkAFdfTZ 1WGZKiFBNlxBCtJKJvJNSuBpT8ZIJrRXcbYO4KoJOg IMyxRWJgXIKhMeMsWLWnYFTlARHhULXiGOMRESAfXEEfCbKrLXruRO3Hu9YsbCB2WSj+Wt6KLQ4jd2Fs UAhcIZYoBH2rye5VVEnPAgUaR3SvzmW3PVBgREFqLu4NECVfFACamGChLTHnYAYOQyBlM7JmpU81DEWW Cj4+IXoxjzHoStaATmTtAWGjq0GxVOf8HU9EFRBhKS g5mXZdGTJFUNZ1TXEbocSuPNTdWITgPVodKG6HLzJgDQFyFe7xTo0wQFQeDON1RkA2YLLGQI4VFFFcHZ VbdOWsPDAwWZXSDF4RPLzxTXN0WWGxufSxrZZmVHqhEU2ZNSSwlwZhDbRlCUFWGDm+De4ECK4ml3KjFG nmMlBxNS5gbv6AEOnAHyEuN5F8gKNzF2G0NQwxBq2L CPLuQYOtOpdaZGOMWKebLI6WGH2rxkT8CL6LqHFiYYQrGBAdhQKqQIe4V02bcKZvDJpyXB7QQMK+Neelam+ Ip8QQINjJAXhLHWhJnKiTBUPHnXmO0KqE4BGv1BkH8GhIB27hPhgmhGaLUcuBT6SMK6lAQXiGPYXOJ2P kOCqpS2dfbGlOYYdOVKDDaYyD95wqMTbDLKeQLR0GQ JxCu9NHTNeP6XhshKrgXcmpuSrWRPpRCZYSR1UGOzpaaIfeBRgfBxiLK91fKpsDQ9SHc0SEwLaHB9cgb 8FkJLqJm0FXLNuJq9WNIKvPHAjIGSiFZF7IHWkBgPmQRcwHYQhWJOlEHA9QEUnHMJlCZ7VYvOfOWGzVx W2PSJrSHGrJPUvnp1KVATeTEVtGJK5IOItDIWwARMp DYawQFIoTAYvWZA3RHEaUIPhKE5QSrBmSEXqVPP1VcAaTNDxHDFmip4MQSLzCLGeBRXdTTQhFIQvWBMv XEjwKFIqWOL3IXJhFBViRVVyDF5CXjQmPNBdTBe8JxRmUQLiOPRqte6PAVUaGAMcBYQbHpMsRRZdFTUo VPtgOHVqVQBwCQBjGPDjGCIhJF4HJaUcWTRbYQM0RY KaSURlJXWdhm6SMVBaGVUbDZF1UJEyLEOsWYOlGBdiMNIrRZZ0ZMEjPKJlTHNcUF8QKfIqYLQgPXhsJw ZlOKTxJRQvhv2DZZOtAGVoWLA8CiVzKQUnVNCtFIbmNSHjKIE9MLltWCDjAXPhIA0JZwAyDXOzHBn3Id MsJTDxHAPvbs8BLKBtTDKzWOMmBXAlMARhLQFeQWvq UEOfHHY5ISW3ECSqRHChMO1GDmGkAXAxHfUwAyGbIEMwZFZwsd1NRPSlNZTiMGJxUXKqRHUcCTIgHJiy RRUqLNJcGfE2WMVhJZYsSK5EBdWgZDRoLhW6ZgfkGVKtWGWcki2CSVKkKMHrFoS2YeEtDMGaEIRyLNnk MAJgPMVhVoVcPGKnXSGdFC5KLoDyIYAePgGoYsTyQU IqRYOuyw3MRBGeCYRoLvU1AGBrCZElNYMuUAioAFFiIBEtPlAkQQLaMDSmAD7GZqYsUTWoFqYiKQqbFO HzYRTssv0NJLHwXRNlOQObDcKfYIDgWHIqMKyzZRJeOCH3USe7YOXoAHMjYC9UMdCdTWPwGnR6OuNbZH ZgQTPyse3PqNQsiMteqe3DTCoRKl7WjMgmVQJaUVvw En2sgLZoZpAfTXFDTd5VmuKyGJUfMFYCEJzpNYTxBQS5CZhwUHreYDYmJRWyOahsX9MyEsC0CKd8OxSs SRybLeU6TxzyVFJ7JsQ9NUO8T7WnQDNcJVVyJeLlTVwkMGV0IAS+NN7rGDv+Gg7Sf3XhosS8ljHmSRqn WSb9Ek8BMOVUP0IRQm== ID Date Data Source [id number] 08/13/2019 01:07:00 PM EDT 67536 Name Value Range Interpretation Code Description Data Miroslava rce(s) Supporting Document(s) Bacteria identified in Blood by Culture NO GROWTH AFTER 5 DAYS ID Date Data Source [id number] 08/14/2019 08:07:00 AM EDT [facility] Name Value Range Interpretation Code Description Data Miroslava rce(s) Supporting Document(s) CULTURE BLOOD [facility] _CULTURE BLOOD_ [place] [address] CLIA# [id number] SEE SCANNED REPORT{ PRELIM ID Date Data Source [id number] 08/08/2019 09:44:00 AM EDT [facility] Name Value Range Interpretation Code Description Data Miroslava rce(s) Supporting Document(s) CBC W/AUTOMATED DIFF [facility] COMPLETE BLOOD COUNT Leukocytes [#/volume] in Blood by Automated count 7.1 10^3/uL 4.2 - 1 1.0 [facility] Erythrocytes [#/volume] in Blood by Automated count 4.18 10^6/uL 4. 50 - 6.30 L [facility] Hemoglobin [Mass/volume] in Blood 12.9 g/dL 14.0 - 16.0 L [facility] Hematocrit [Volume Fraction] of Blood by Automated count 40.5 % 4 1.0 - 51.0 L [facility] Erythrocyte mean corpuscular volume [Entitic volume] by Auto mated count 96.9 fL 80.0 - 94.0 H [facility] Erythrocyte mean corpuscular hemoglobin [Entitic mass] by Automated count 30.9 pg 27.0 - 34.0 [facility] Erythrocyte mean corpuscular hemoglobin concentration [Mass/volume] by Automated count 31.9 g/dL 31.0 - 36.0 [facility] Erythrocyte distribution width [Ratio] by Automated count 13.5 % 11.5 - 14.8 [facility] Platelets [#/volume] in Blood by Automated count 222 10^3/uL 150 - 45 0 [facility] Platelet mean volume [Entitic volume] in Blood by Automated count 10.3 fL 7.4 - 10.4 [facility] Neutrophils/100 leukocytes in Blood by Automated count 68.3 % 37. 0 - 80.0 [facility] Lymphocytes/100 leukocytes in Blood by Manual count 19.3 % 25.0 - 40.0 L [facility] Monocytes/100 leukocytes in Blood by Automated count 8.7 % 3.0 - 8.0 H [facility] Eosinophils/100 leukocytes in Blood by Automated count 2.7 % 0.0 - 7.0 [facility] Basophils/100 leukocytes in Blood by Automated count 0.7 % 0.0 - 2.0 [facility] %IG 0.3 % 0.0 - 0.0 [facility] %NRBC 0.0 % 0.0 - 0.0 [facility] al Neutrophils [#/volume] in Blood by Automated count 4.88 10^3/uL 2.00 - 6.90 [facility] Lymphocytes [#/volume] in Blood by Automated count 1.38 10^3/uL 0.60 - 3.40 [facility] Monocytes [#/volume] in Blood by Automated count 0.62 10^3/uL 0.00 - 0.90 [facility] Eosinophils [#/volume] in Blood by Automated count 0.19 10^3/uL 0.00 - 0.70 [facility] Basophils [#/volume] in Blood by Automated count 0.05 10^3/uL 0.00 - 0.20 [facility] #IG 0.02 10^3/uL 0.00 - 0.10 [facility] #NRBC 0.00 10^3/uL 0.00 - 0.00 [facility] MANUAL DIFF NOT INDICATED [facility] RBC MORPH NOT INDICATED [facility] sp[facility] ID Date Data Source [id number] 08/14/2019 08:07:00 AM EDT [facility] Name Value Range Interpretation Code Description Data Miroslava rce(s) Supporting Document(s) CULTURE BLOOD [facility] spital _CULTURE BLOOD_ [place] [address] CLIA# [id number] SEE SCANNED REPORT{ PRELIM ID Date Data Source [id number] 08/08/2019 09:25:00 AM EDT [facility] Name Value Range Interpretation Code Description Data Miroslava rce(s) Supporting Document(s) TROPONIN T 0.01 NG/ML 0.00 - 0.10 [facility] TROPONIN T0.1 ng/ml Recommended as the c linical threshold value forTroponin T. ID Date Data Source [id number] 08/08/2019 09:21:00 AM EDT [facility] Name Value Range Interpretation Code Description Data Miroslava rce(s) Supporting Document(s) COMPREHENSIVE METABOLIC PANEL [facility] COMPREHENSIVE METABOLIC PANEL Sodium [Moles/volume] in Serum or Plasma 136 mEq/L 134 - 153 [facility] Potassium [Moles/volume] in Serum or Plasma 4.7 mEq/L 3.6 - 5.0 [facility] Chloride [Moles/volume] in Serum or Plasma 101 mEq/L 98 - 107 [facility] Carbon dioxide, total [Moles/volume] in Serum or Plasma 23 MEQ/L 22 - 30 [facility] Glucose [Mass/volume] in Serum or Plasma 95 MG/DL 65 - 110 [facility] BUN 19 MG/DL 7 - 21 [facility] Creatinine [Mass/volume] in Serum or Plasma 1.2 MG/DL 0.7 - 1.5 [facility] BUN/CREAT 16 8 - 27 [facility] Protein [Mass/volume] in Serum or Plasma 8.1 G/DL 6.3 - 8.2 [facility] Albumin [Mass/volume] in Serum or Plasma 3.9 G/DL 3.9 - 5.0 [facility] Globulin [Mass/volume] in Serum by calculation 4.2 GM/DL 2.4 - 3.2 H [facility] A/G RATIO 0.9 0.8 - 2.0 [facility] Calcium [Mass/volume] in Serum or Plasma 9.8 MG/DL 8.4 - 10.2 [facility] Bilirubin.total [Mass/volume] in Serum or Plasma 1.0 MG/DL 0.2 - 1.3 [facility] Alkaline phosphatase [Enzymatic activity/volume] in Serum or Plasma 73 U/L 38 - 126 [facility] Aspartate aminotransferase [Enzymatic activity/volume] in Serum or Plasma 26 U/L 5 - 40 [facility] Alanine aminotransferase [Enzymatic activity/volume] in Seru m or Plasma 11 U/L 7 - 56 [facility] Anion gap 3 in Serum or Plasma 12.0 mmol/L 8.0 - 16.0 [facility] AGE 69 yrs [facility] NON-AA GFR >60 mL/min [facility] ital AFR AMER GFR >60 mL/min [facility] Male GFR In terprentation [...] >32 mL/min Normal ID Date Data Source [id number] 08/12/2019 09:52:00 AM EDT [id number] FOOT@08/12/19 0953: Aerobic I D Emily added. RFLXG = CHGAERID.FEW CORYNEBACTERIUM SP. ISOLATED PROBABLE NORMAL SKIN FLORANO SENSITIVITIES DONEFEW STAPH SPP. COAGULASE NEGATIVE PROBABLE NORMAL SKIN FLORANO SENSITIVITIES DONEACINETOBACTER BAUMANNII/HAEMOL Name Value Range Interpretation Code Description Data Miroslava rce(s) Supporting Document(s) Quantiy of growth Few ID Date Data Source [id number] 08/12/2019 09:52:00 AM EDT [id number] FOOT@08/12/19 0953: Aerobic I D Emily added. RFLXG = CHGAERID.FEW CORYNEBACTERIUM SP. ISOLATED PROBABLE NORMAL SKIN FLORANO SENSITIVITIES DONEFEW STAPH SPP. COAGULASE NEGATIVE PROBABLE NORMAL SKIN FLORANO SENSITIVITIES DONEACINETOBACTER BAUMANNII/HAEMOL Name Value Range Interpretation Code Description Data Miroslava rce(s) Supporting Document(s) TRIMETHOPRIM/SULFAMETHOXAZOLE <2/38 [facility] sceptible. Indicates for microbiology susceptibilities only. Ampicillin+Sulbactam [Susceptibility] by Minimum inhib itory concentration (RAJENDRA) <8/4 Susceptible. Indicates for microbiology suscepti bilities only. Cefotaxime [Susceptibility] by Minimum inhibitory concentration (RAJENDRA) 8 Susceptible. Indicates for microbiology susceptibilities only. Ceftriaxone [Susceptibility] by Minimum inhibitory concentration (RAJENDRA) 8 Susceptible. Indicates for microbiology susceptibilities only. Ciprofloxacin [Susceptibility] by Minimum inhibitory concentrati on (RAJENDRA) 2 Intermediate. Indicates for microbiology susceptibilities only. Gentamicin [Susceptibility] by Minimum inhibitory concentration (RAJENDRA) 8 Intermediate. Indicates for microbiology susceptibilities only. Tetracycline [Susceptibility] by Minimum inhibitory concentratio n (RAJENDRA) 8 Intermediate. Indicates for microbiology susceptibilities only. Tobramycin [Susceptibility] by Minimum inhibitory concentration (RAJENDRA) 8 Intermediate. Indicates for microbiology susceptibilities only. Levofloxacin [Susceptibility] by Minimum inhibitory concentratio n (RAJENDRA) <2 Susceptible. Indicates for microbiology susceptibilities only. Cefepime [Susceptibility] by Minimum inhibitory concentration (M IC) >16 Resistant. Indicates for microbiology susceptibilities only. ID Date Data Source [id number] 08/12/2019 03:06:00 PM EDT [facility] Name Value Range Interpretation Code Description Data Miroslava rce(s) Supporting Document(s) CULTURE WOUND [facility] .WOUND CULTURE_{ SPECIMEN MIROSLAVA RCE : RIGHT FOOT Result: [place] [address] CLIA# [id number] SEE SCANNED REPORT ID Date Data Source [id number] 07/15/2019 08:29:00 [place] [address] DISCHARGE SUMMARYNAME: LOUISE James ROOM#: 104-1DATE OF : 1950 MR#: [id number] PHYS: Neymar Hilario MD, PC DATE: 07/09/19 [...] IVC filter was inserted. Isent him to [facility] x-ray for IVC filter evaluation and they [...] of hypertension.7. History of atrial fibrillation. [address] [place] [id number] DISCHARGE SUMMARYNAME: LOUISE James ROOM#: 104-1DATE OF : 1950 MR#: [id number] PHYS: Neymar Hilario MD, DATE: 07/09/19 DISCHARGED: 07/12/19 8. History of anemia. 9. History of atrial fibrillation.FOLLOW UP:He will see Dr. Radford in one week.DD: Neymar Hilario MD, 07/12/19 09:41DT: DMZ 07/15/19 08:16DS: Neymar Hilario MD, PC 07/25/19 12:14 2 Name Value Range Interpretation Code Description Data Miroslava rce(s) Supporting Document(s) ID Date Data Source [id number] 07/12/2019 01:14:[address] [facility] [place], [place] [address] [place] [address] PHONE: [phone] FAX: [phone] Name .................. : LOUISE James Acct Number.................. : [id number] ROOM. ................. : 104-1 MR Number ................... : [id number] Stay type ............. : I/P Discharge Date......... ... : Admit Date ......... : 07/09/19 Admit Phys .................... : CAPRICE FITZPATRICK Date of ....... : 1950 Family Phys ................... : NO PCP Phone .................. : [phone] Age ................................ : 69 Film# .................. .:[id number] Sex ................................. : M Unsigned transcriptions are preliminary reports and do not represent a medical or legal document ABDOMEN MULTIPLE VIEW 73812 COMPLETE:07/11/19 19:02 KBO 98759 (REASON FOR ABDOMEN: IVC FILTER TODAY MULTIPLE [...] 07/12/19 05:59, Dictation Date: Copy for: 002 [facility] Copy for: 710 [facility] Page 1 of 1 Name Value Range Interpretation Code Description Data Miroslava rce(s) Supporting Document(s) ID Date Data Source [id number] 07/12/2019 01:14:[address] [facility] [place] [place] [address] [place] [address] PHONE: [phone] FAX: [phone] Name .................. : LOUISE ROBERTO James Acct Number.................. : [id number] ROOM. ................. : 104-1 MR Number ................... : [id number] Stay type ............. : I/P Discharge Date......... ... : Admit Date ......... : 07/09/19 Admit Phys .................... : CAPRICE AMARI Date of ....... : 1950 Family Phys ................... : NO PCP Phone .................. : [phone] Age ................................ : 69 Film# .................. .:[id number] Sex ................................. : M Unsigned transcriptions are preliminary reports and do not represent a medical or legal document CHEST 2 VIEWS 22924 COMPLETE:07/11/19 19:02 KBO 65710 (REASON FOR CHEST: CHF CHEST X- RAY: [...] 07/12/19 05:56, Dictation Date: Copy for: 002 [facility] Copy for: 710 [facility] REC Page 1 of 1 Name Value Range Interpretation Code Description Data Miroslava rce(s) Supporting Document(s) ID Date Data Source [id number] 07/11/2019 03:34:00 [place] [address] RESPIRATORY CARE REPORT ==== ---------NAME------- NUMBER SEX AGE ADMIT DISC. XRAY# F/C TYPENECASTER ROBERTO James [id number] M 69 07/09/19 695650 M4 I/P DATE OF : 1950 M/R# [id number] PH#: [phone] 104-1 LOCATION: EMERGENCY DEPT EKG 03404 COMP LETE:07/11/19 08:03 [place] [address] PHYSICIAN: CAPRICE FITZPATRICK Name Value Range Interpretation Code Description Data Miroslava rce(s) Supporting Document(s) ID Date Data Source [id number] 07/11/2019 12:38:00 [place] [address] PROGRESS NOTENAME: LOUISE James ROOM#: 104-1DATE OF : 1950 MR#: [id number] DATE: 07/09/19 OF SERVICE: 07/11/2019SUBJECTIVE:The patient presented [...] rce(s) Supporting Document(s) ID Date Data Source [id number] 07/10/2019 06:17:00 [place] [address] PROGRESS NOTENAME: LOUISE James ROOM#: 104-1DATE OF : 1950 MR#: [id number] DATE: 07/09/19 OF SERVICE: 07/10/19UBJECTIVE: This patient was sent to [facility] for insertion of an IVC filter. [...] rce(s) Supporting Document(s) ID Date Data Source [id number] 07/10/2019 09:00:00 [place] [address] PROGRESS NOTENAME: LOUISE James ROOM#: 104-1DATE OF : 1950 MR#: [id number] DATE: 07/09/19 OF SERVICE: 07/10/2019SUBJECTIVE:This is a 69-year-old white male with blood clots in his femoral vein in both sides and he came withpulmonary emboli in the left lower lobe. Patient today does not look dyspneic, but he is taking Kqxopdh70 mg bid for the last few months. [...] spoke with , the interventional radiologist in [facility]. Patient will be transferred there for IVC filter, andpatient will be brought back to [facility] after the IVC filter is inserted.DD: Neymar Hilario MD, 07/10/19 08:43DT: SSR 07/10/19 09:00DS: Neymar Hilario MD, PC 07/11/19 14:34 1 Name Value Range Interpretation Code Description Data Miroslava rce(s) Supporting Document(s) ID Date Data Source [id number] 07/10/2019 08:57:00 [place] [address] HISTORY AND PHYSICALNAME: LOUISE James ROOM#: 104-1DATE OF : 1950 MR#: [id number] PHYS: Neymar Hilario MD, PC DATE: 07/09/19DATE [...] 2 changes. Mouth normal. Tongue dry. [address] [place] [address] HISTORY AND PHYSICALNAME: LOUISE James ROOM#: 104-1DATE OF : 1950 MR#: [id number] PHYS: Neymar Hilario MD, PC DATE: 07/09/19NECK: [...] cellulitis of both the legs. Will continue Jqukbwr05 mg bid. Will load him for possible IVC filter. We will do a coagulation work up also, protein C,protein S, antiphospholipid antibody. Patient will have nebulizer treatment also with DuoNeb.DD: Neymar Hilario MD, PC 07/09/19 15:40DT: SSR 07/10/19 08:49DS: Neymar Hilario MD, PC 07/11/19 14:34 [address] [place] [address] HISTORY AND PHYSICALNAME: LOUISE James ROOM#: 104-1DATE OF : 1950 MR#: [id number] PHYS: Neymar Hilario MD, PC DATE: 07/09/19 3 Name Value Range Interpretation Code Description Data Miroslava rce(s) Supporting Document(s) ID Date Data Source [id number] 07/11/2019 10:16:00 [place] [address] PHONE: [phone] FAX: [phone] Name .................. : LOUISE James Acct Number.................. : [id number] ROOM. ................. : 104-1 MR Number ................... : [id number] Stay type ............. : I/P Discharge Date......... ... : Admit Date ......... : 07/09/19 Admit Phys .................... : CAPRICE AMARI Date of ....... : 1950 Family Phys ................... : NO PCP Phone .................. : [phone] Age ................................ : 69 Film# .................. .:[id number] Sex ................................. : M Unsigned transcriptions are preliminary reports and do not represent a medical or legal document DOPPLER VENOUS BILAT LEG 07366 COMPLETE:07/09/19 13:14 [facility] [address] Reason(s): DVT VENOUS DOPPLER ULTRASOUND BILATERAL LEGS: [...] By Giuliano Wolfe MD , 07/11/19 10:16, [facility] Transcribe Initials: DZ , Transcribe Date: 07/10/19 20:34, Dictation Date: Copy for: 002 [facility] Copy for: 710 [facility] REC Page 1 of 1 Name Value Range Interpretation Code Description Data Miroslava rce(s) Supporting Document(s) ID Date Data Source [id number] 07/11/2019 09:10:00 AM [facility] [address] [place] [address] RESPIRATORY CARE REPORT ==== ---------NAME------- NUMBER SEX AGE ADMIT DISC. XRAY# F/C TYPENECASTER ROBERTO James [id number] M 69 07/09/19 656718 M4 I/P DATE OF : 1950 M/R# [id number] #: [id number] 104-1 LOCATION: EMERGENCY DEPT EKG 66955 COMP LETE:07/10/19 11:23 CW [address] PHYSICIAN: CAPRICE FITZPATRICK Name Value Range Interpretation Code Description Data Miroslava rce(s) Supporting Document(s) ID Date Data Source [id number] 07/11/2019 09:05:[address] [address] RESPIRATORY CARE REPORT ==== ---------NAME------- NUMBER SEX AGE ADMIT DISC. XRAY# F/C TYPELOUISE James [id number] M 69 07/09/19 965217 M4 I/P DATE OF : 1950 M/R# [id number] #: [id number] 104-1 LOCATION: EMERGENCY DEPT [facility] [address] COMP LETE:07/10/19 06:56 [place] [address] PHYSICIAN: CAPRICE CASTRO RYAN Name Value Range Interpretation Code Description Data Miroslava rce(s) Supporting Document(s) ID Date Data Source [id number] 07/11/2019 07:26:00 AM EST [facility] Name Value Range Interpretation Code Description Data Miroslava rce(s) Supporting Document(s) COMPREHENSIVE METABOLIC PANEL [facility] COMPREHENSIVE METABOLIC PANEL Sodium [Moles/volume] in Serum or Plasma 144 mEq/L 134 - 153 [facility] Potassium [Moles/volume] in Serum or Plasma 4.4 mEq/L 3.6 - 5.0 [facility] Chloride [Moles/volume] in Serum or Plasma 108 mEq/L 98 - 107 H [facility] Carbon dioxide, total [Moles/volume] in Serum or Plasma 25 MEQ/L 22 - 30 [facility] Glucose [Mass/volume] in Serum or Plasma 114 MG/DL 65 - 110 H [facility] BUN 29 MG/DL 7 - 21 [facility] Creatinine [Mass/volume] in Serum or Plasma 1.3 MG/DL 0.7 - 1.5 [facility] BUN/CREAT 22 8 - 27 [facility] al Protein [Mass/volume] in Serum or Plasma 6.6 G/DL 6.3 - 8.2 [facility] Albumin [Mass/volume] in Serum or Plasma 3.9 G/DL 3.9 - 5.0 [facility] Globulin [Mass/volume] in Serum by calculation 2.7 GM/DL 2.4 - 3.2 [facility] A/G RATIO 1.4 0.8 - 2.0 [facility] Calcium [Mass/volume] in Serum or Plasma 9.1 MG/DL 8.4 - 10.2 [facility] Bilirubin.total [Mass/volume] in Serum or Plasma <0.7 MG/DL 0.2 - 1.3 [facility] Alkaline phosphatase [Enzymatic activity/volume] in Serum or Plasma 51 U/L 38 - 126 [facility] Aspartate aminotransferase [Enzymatic activity/volume] in Serum or Plasma 13 U/L 5 - 40 [facility] Alanine aminotransferase [Enzymatic activity/volume] in Seru m or Plasma 8 U/L 7 - 56 [facility] Anion gap 3 in Serum or Plasma 11.0 mmol/L 8.0 - 16.0 [facility] AGE 69 [facility] 58 mL/min [facility] AFR AMER GFR >60 mL/min [facility] Male GFR In terprentation [...] >32 mL/min Normal ID Date Data Source [id number] 07/11/2019 07:23:00 AM EST [facility] Name Value Range Interpretation Code Description Data Miroslava rce(s) Supporting Document(s) CBC W/AUTOMATED DIFF [facility] COMPLETE BLOOD COUNT Leukocytes [#/volume] in Blood by Automated count 8.6 10^3/uL 4.2 - 1 1.0 [facility] Erythrocytes [#/volume] in Blood by Automated count 4.24 10^6/uL 4. 50 - 6.30 L [facility] Hemoglobin [Mass/volume] in Blood 13.2 g/dL 14.0 - 16.0 L [facility] Hematocrit [Volume Fraction] of Blood by Automated count 41.6 % 4 1.0 - 51.0 [facility] Erythrocyte mean corpuscular volume [Entitic volume] by Auto mated count 98.1 fL 80.0 - 94.0 H [facility] Erythrocyte mean corpuscular hemoglobin [Entitic mass] by Automated count 31.1 pg 27.0 - 34.0 [facility] Erythrocyte mean corpuscular hemoglobin concentration [Mass/volume] by Automated count 31.7 g/dL 31.0 - 36.0 [facility] Erythrocyte distribution width [Ratio] by Automated count 13.8 % 11.5 - 14.8 [facility] Platelets [#/volume] in Blood by Automated count 194 10^3/uL 150 - 45 0 [facility] Platelet mean volume [Entitic volume] in Blood by Automated count 10.6 fL 7.4 - 10.4 H [facility] Neutrophils/100 leukocytes in Blood by Automated count 55.4 % 37. 0 - 80.0 [facility] Lymphocytes/100 leukocytes in Blood by Manual count 33.6 % 25.0 - 40.0 [facility] Monocytes/100 leukocytes in Blood by Automated count 6.1 % 3.0 - 8.0 [facility] Eosinophils/100 leukocytes in Blood by Automated count 3.7 % 0.0 - 7.0 [facility] Basophils/100 leukocytes in Blood by Automated count 0.8 % 0.0 - 2.0 [facility] %IG 0.4 % 0.0 - 0.0 [facility] %NRBC 0.0 % 0.0 - 0.0 [facility] al Neutrophils [#/volume] in Blood by Automated count 4.75 10^3/uL 2.00 - 6.90 [facility] Lymphocytes [#/volume] in Blood by Automated count 2.88 10^3/uL 0.60 - 3.40 [facility] Monocytes [#/volume] in Blood by Automated count 0.52 10^3/uL 0.00 - 0.90 [facility] Eosinophils [#/volume] in Blood by Automated count 0.32 10^3/uL 0.00 - 0.70 [facility] Basophils [#/volume] in Blood by Automated count 0.07 10^3/uL 0.00 - 0.20 [facility] #IG 0.03 10^3/uL 0.00 - 0.10 [facility] ospital #NRBC 0.00 10^3/uL 0.00 - 0.00 [facility] MANUAL DIFF NOT INDICATED [facility] RBC MORPH NOT INDICATED [facility] ID Date Data Source [id number] 07/10/2019 12:26:00 PM EST [facility] [address] [facility] [place] [address] PHONE: [phone] FAX: [phone] Name .................. : LOUISE James Acct Number.................. : [id number] ROOM. ................. : 104-1 MR Number ................... : [id number] Stay type ............. : I/P Discharge Date......... ... : Admit Date ......... : 07/09/19 Admit Phys .................... : CAPRICE AMARI Date of ....... : 1950 Family Phys ................... : NO PCP Phone .................. : [phone] Age ................................ : 69 Film# .................. .:[id number] Sex ................................. : M Unsigned transcriptions are preliminary reports and do not represent a medical or legal document CT CTA CHEST NON-CORONARY Joseph ePrson 59990 COMPLETE:07/09/19 16:54 KAH 72357 Reason(s): acute dyspnea, hx DVT, please r/o [...] mL: 75 [address] [place] [address] PHONE: [phone] FAX: [phone] Name .................. : LOUISE James Acct Number.................. : [id number] ROOM. ................. : 104-1 MR Number ................... : [id number] Stay type ............. : I/P Discharge Date......... ... : Admit Date ......... : 07/09/19 Admit Phys .................... : CAPRICE FITZPATRICK Date of ....... : 1950 Family Phys ................... : NO PCP Phone .................. : [phone] Age ................................ : 69 Film# .................. .:[id number] Sex ................................. : M Unsigned transcriptions are preliminary reports and do not represent a medical or legal document CT CTA CHEST NON-CORONARY W C [id number] COMPLETE:07/09/19 16:54 KAH 12124 Reason(s): acute dyspnea, hx DVT, please r/o PE Method of administration: Intravenous Electronically Reviewed and Signed By Giuliano Wolfe MD , 07/10/19 12:27, [facility] Transcribe Initials: DANE , Transcribe Date: 07/09/19 20:09, Dictation Date: Copy for: 002 [facility] Copy for: 710 [facility] REC Page 2 of 2 Name Value Range Interpretation Code Description Data Miroslava rce(s) Supporting Document(s) ID Date Data Source [id number] 07/09/2019 09:49:00 PM [facility] Name Value Range Interpretation Code Description Data Miroslava rce(s) Supporting Document(s) Magnesium [Mass/volume] in Serum or Plasma 2.1 MG/DL 1.7 - 2.2 [facility] ID Date Data Source [id number] 07/09/2019 06:34:[address] [facility] [place] [address] [place] [address] PHONE: [phone] FAX: [phone] Name .................. : LOUISE Jamse Acct Number.................. : [id number] ROOM. ................. : TR-05 MR Number ................... : [id number] Stay type ............. : E/R Discharge Date......... ... : Admit Date ......... : 07/09/19 Admit Phys .................... : MATTHEW RYAN Date of ....... : 1950 Family Phys ................... : NO PCP Phone .................. : [phone] Age ................................ : 69 Film# .................. .:[id number] Sex ................................. : M Unsigned transcriptions are preliminary reports and do not represent a medical or legal document CHEST PORTABLE [id number] COMPLETE:07/09/19 10:42 [facility] [place] [id number] Reason(s): Shortness of Breat h PORTABLE CHEST [...] 07/09/19 11:08, Dictation Date: Copy for: 002 [facility] Copy for: [facility] REC Page 1 of 1 Name Value Range Interpretation Code Description Data Miroslava rce(s) Supporting Document(s) ID Date Data Source [id number] 07/13/2019 07:45:00 AM [facility] Name Value Range Interpretation Code Description Data Miroslava rce(s) Supporting Document(s) Protein S Ag actual/normal in Platelet poor plasma by Immuno logic method 91 % 60-150 [facility] This test was developed and its performa nce characteristicsdetermined by [facility]. It has not been cleared or approvedby the Food and Drug Administration. Protein S Free Ag actual/normal in Platelet poor plasm a by Immunologic method 76 % 57-157 [facility] This test was developed and its performa nce characteristicsdetermined by [facility]. It has not been cleared or approvedby the Food and Drug Administration. ID Date Data Source [id number] 07/12/2019 06:13:00 PM [facility] Name Value Range Interpretation Code Description Data Miroslava rce(s) Supporting Document(s) Protein C Ag actual/normal in Platelet poor plasma by Immuno logic method 82 % 60-150 [facility] ID Date Data Source [id number] 07/11/2019 03:53:00 PM [facility] Name Value Range Interpretation Code Description Data Miroslava rce(s) Supporting Document(s) Nuclear Ab [Presence] in Serum Negative Negative [facility] ID Date Data Source [id number] 07/09/2019 09:20:00 AM [facility] 1 OrderSheet [facility] Emergency Department [address] [place] [address] Phone #: ext- [phone] 07/09/2019 09:20 Patient: ROBERTO RAO Sex: M : 1950 Age: 69yWEIGHT:87.0 kg (M) HEIGHT:70 inches (E) BMI:27.5ALLERGIES: Divalproex Sodium, Paxil, Simvastatin, WellbutrinCHIEF COMPLAINT: dyspneaDIAGNOSIS: Pulmonary embolism, Cellulitis of skin, Deep venous thrombosis, DyspneaLAB ORDERSOrder Description Priority Entered Acknowledged InitialedBNP STAT 09:33 07/09/2019 09:36 Nilsa CHRISTINA; Pierre SWANCBC w Diff STAT 09:33 07/09/2019 09:36 Nilsa CHRISTINA; Pierre RNCMP STAT 09:33 07/09/2019 09:36 Nilsa CHRISTINA; Pierre SWANInfluenza Nasal A B STAT 09:33 07/09/2019 09:36 Nilsa CHRISTINA; Pierre SWANLactic Acid STAT 09:33 07/09/2019 09:36 Nilsa CHRISTINA; Pierre SWANTroponin-T STAT 09:33 07/09/2019 09:36 Nilsa CHRISTINA; Pierre SWANUrinalysis (Clean STAT 09:33 07/09/2019 13:40 PeterCatch) Phong CHRISTINA; Ronnell RNBlood Culture STAT 09:55 07/09/2019 09:57 [id number] X2 (Sched Phong CHRISTINA; Ronnell RN09:55 07/09/2019)Blood Culture STAT 09:55 07/09/2019 10:20 [id number] X2 (Sched Phong CHRISTINA; Ronnell RN10:05 07/09/2019)Culture, Wound STAT 10:49 07/09/2019 12:14 Adolfo(Leg) Phong CHRISTINA; Ronnell RNVenous Blood Gas STAT 10:53 07/09/2019 12:14 Adolfo CHRISTINA; Ronnell RNDIAGNOSTIC STUDY ORDERSOrder Description Priority Entered Acknowledged InitialedChest Portable 1 STAT 09:33 07/09/2019 09:36 Audra (Oxygen? Phong CHRISTINA; Pierre RN(Yes)) Reason for Study: Shortness of Breath 2 OrderSheet [facility] Emergency Department [address] [place] [address] Phone #: ext- [phone] 07/09/2019 09:20 Patient: ROBERTO RAO Sex: M [...] 07/09/2019 11:26 Peter(2gm/100mL) IVPB Phong CHRISTINA; Ronnell TB3435 mg withDextroseIntravenous 100 mL(D5 W)Albuterol Neb Tx [...] BlairEKG 09:33 07/09/2019 09:46 Adolfo 3 OrderSheet [facility] Emergency Department [address] [place] [address] Phone #: ext- [phone] 07/09/2019 09:20 Patient: ROBERTO RAO Sex: M [...] rce(s) Supporting Document(s) ID Date Data Source [id number] 07/09/2019 09:20:00 AM EST [facility] 1 Medication Reconciliation Report [facility] Emergency Department [address] [place] [address] Phone #: ext- [phone] 07/09/2019 09:20 Patient: [...] Home Medication information: 2 Medication Reconciliation Report [facility] Emergency Department [address] [place] [address] Phone #: ext- [phone] 07/09/2019 09:20 Patient: [...] rce(s) Supporting Document(s) ID Date Data Source [id number] 07/09/2019 09:20:00 AM EST [facility] 1 Medication Administration Record [facility] Emergency Department [address] [place] [address] Phone #: ext- [phone] 07/09/2019 09:20 Patient: ROBERTO RAO Sex: M : 1950 Age: 69yWeight: 87.0 kgHeight/Length: 70 inBMI: 27.5ALLERGIES: Divalproex Sodium, Paxil, Simvastatin, Wellbutrin Date/Time Medication Administered Medication OrderedStart NS [IV] NS IV : 75 mL/hr (NOW x1)10:08 07/09/2019 Dose: IV FluidsAdolfo Reynaga RN Rate: 75 mL/hr over 8 hour(s)---- Dispensed: 500 mL bagStop Site: #1 left AC15:05 07/09/2019Chidi Jorgensen ROCEPHIN (2GM/100ML) [IVPB] Rocephin (2gm/100mL) IVPB 782606:07/09/2019 (CEFTRIAXONE SODIUM) mg with Dextrose Intravenous Allen [...] rce(s) Supporting Document(s) ID Date Data Source [id number] 07/09/2019 09:20:00 AM [facility] 1 General Instructions [facility] Emergency Department [address] [place] [address] Phone #: ext- [phone] 07/09/2019 09:20 Patient: [...] rce(s) Supporting Document(s) ID Date Data Source [id number] 07/09/2019 09:20:00 AM [facility] 1 Clinical Report - Nurses [facility] Emergency Department [address] [place] [address] Phone #: kdx- [phone] 07/09/2019 09:20 Patient: ROBERTO RAO Sex: M : 1950 Age: 69yTRIAGEArrived by EMS. Historian: EMS.Triage time: :07/09/2019. Acuity: LEVEL 2.Chief Complaint: SHORTNESS OF BREATH.:07/09/19. Alert. 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 EMS treatment [...] Jay RN. 2 Clinical Report - Nurses [facility] Emergency Department [address] [place] [address] Phone #: ext- [phone] 07/09/2019 09:20 Patient: ROBERTO RAO Sex: M : 1950 Age: 69yPROBLEMS:Hypertension.Fall: (X three).DVT - Deep Venous Thrombosis.Hyperlipidemia.Cellulitis.Atrial Fibrillation.CVA - Cerebrovascular Accident.Neurological Disease. --07/09/19 Nilsa Jay RN.ADDITIONAL SURGERIES:None. --07/09/19 Nilsa Jay RN.Ytibmmt34:07/09/19.PAST MEDICAL HX: Immunizations: up-to-date. Has not received [...] Jay RN. 3 Clinical Report - Nurses [facility] Emergency Department [address] [place] [address] Phone #: ext- [phone] 07/09/2019 09:20 Patient: ROBERTO RAO Sex: M : 1950 Age: 69yPHYSICAL JSUEKHYKNZ99:30 07/09/19. To room via stretcher.GENERAL / NEURO [...] Reynaga RN 4 Clinical Report - Nurses [facility] Emergency Department [address] [place] [address] Phone #: ext- [phone] 07/09/2019 09:20 [id number] Sex: M : 1950 Age: 69y10:12 07/09/19. BP: 119/80. MAP: 93. HR: 104. RR: 20. O2 saturation: 100% on room air. Pain level now:0/10. --10:14 07/09/19 Carrie Jorgensen leg: applied dressing consisting of telfa pad. Secured with tape and claudette. --10:29 07/09/19 Amanda Driver transported to CT and sonogram by stretcher with carpet technician. --10:57 07/09/19 SOSA Driver11:07/09/2019 Started 2 gm [...] and sonogram by stretcher with tech and carpet technician. --11:26 07/09/19Adolfo Reynaga RN11:30 07/09/19. BP: 106/65. [...] RR: 19. O2 saturation: 97%. --13:25 [facility]09[facility] Zwlu008[facility]42 07/09/2019 Magnesium Sulfate IVPB via IV site #1 Discontinued: infused. Total amount infused: 25mL. IV patency established. IV site checked: no pain, redness, or swelling. IV flushed thoroughly. --13: Adolfo Reynaga RN14:11 07/09/19. BP: 108/61. MAP: 76. HR: 100. RR: 20. O2 saturation: 98% on room air. Temp: 97.5 F 5 Clinical Report - Nurses [facility] Emergency Department [address] [place] [address] Phone #: ext- [phone] 07/09/2019 09:20 Patient: ROBERTO RAO Sex: M [...] rce(s) Supporting Document(s) ID Date Data Source [id number] 07/09/2019 09:20:00 AM [facility] 1 Clinical Report - Physicians/Mid Levels [facility] Emergency Department [address] [place] [address] Phone #: ext- [phone] 07/09/2019 09:20 Patient: ROBERTO RAO Sex: M [...] Disease. 2 Clinical Report - Physicians/Mid Levels [facility] Emergency Department [address] [place] [address] Phone #: ext- [phone] 07/09/2019 09:20 Patient: ROBERTO RAO Sex: M [...] No organomegaly. 3 Clinical Report - Physicians/[facility] Emergency Department [address] [place] [address] Phone #: ext- [phone] 07/09/2019 09:20 ----- Patient: ROBERTO RAO Sex: [...] Venous Blood Gas: (CORINA: 07/09/2019 09:51) ( [facility] 07/09[facility] 11[facility]41[facility] Final results Test Result Flag [...] Room: ED BNP: (CORINA: 07/09/2019 09:51) ( [facility] 07/09/2019 11:04) Final results Test Result Flag [...] 16.0) 4 Clinical Report - Physicians/Mid Levels [facility] Emergency Department [address] [place] [address] Phone #: ext- [phone] 07/09/2019 09:20 --------- [...] Male GFR Interprentation 20-49 yrs >60 mL/min Wvthnz43-04 yrs >56 mL/min Normal 60-69 yrs >49 mL/min Normal 70-79yrs>42 mL/min Normal 80 and above >35 mL/min Normal Female GFRInterpretation 20-39 yrs >60 mL/min Normal 40-49 yrs >58 mL/minNormal 50-59 yrs >51 mL/min Normal 60-69 yrs >45 mL/min Szodya46-18 yrs >39 mL/min Normal 80 and above [...] should 5 Clinical Report - Physicians/Mid Levels [facility] Emergency Department [address] [place] [address] Phone #: ext- [phone] 07/09/2019 09:20 Patient: ROBERTO RAO Sex: M : 1950 Age: 69ynot beused as the sole basis for diagnosis, treatment or other patient managementdecisions.Lactic Acid: (CORINA: 07/09/2019 09:51) [facility] 10[facility] Final results Test Result Flag Units (Reference) LACTIC ACID 1.5 MMOL/L (0.2 - 2.2)Troponin-T: (CORINA: 07/09/2019 09:51) ( [facility] 07/09/2019 10:41) Final results Test Result Flag Units (Reference) TROPONIN T 0.01 NG/ML (0.00 - 0.10) TROPONIN T0.1 ng/ml Recommended as the clinical threshold value forTroponin T.Chest Portable 1 View: (CORINA: 07/09/2019 09:33) ( [facility] 07/09[facility] 11:10) In ProgressCHEST PORTABLEReason(s): Shortness of BreathTRANSPORTATION: P IV? O2? Oxygen?(Yes) Room: [place] [address] PHONE: [phone] FAX: [phone] Name .................. : LOUISE James Acct Number.................. : [id number] ROOM. ................. : TR-05 MR Number ................... : [id number] Stay type ............. : E/R Discharge Date......... ... : Admit Date ......... : 07/09/19 Admit Phys .................... : MATTHEW RYAN Date of ....... : 1950 Family Phys ................... : NO PCP Phone .................. : [phone] Age ................... ............. : 69 Film# .................. .:[id number] Sex ................................. : M Unsigned transcriptions are preliminary reports and do not represent a medical or legal document CHEST PORTABLE [id number] COMPLETE:07/09/19 10:42 [facility] [place] [address] Reason(s): Shortness of Breath PORTABLE CHEST X-RAY: [...] <<REPDIST>> 6 Clinical Report - Physicians/Mid Levels [facility] Emergency Department [address] [place] [address] Phone #: ext- [phone] 07/09/2019 09:20 Patient: [...] rce(s) Supporting Document(s) ID Date Data Source [id number] 07/09/2019 01:37:00 PM [facility] Name Value Range Interpretation Code Description Data Miroslava rce(s) Supporting Document(s) URINALYSIS [facility] UR[facility] yellow NORMAL: Yellow [facility] ospital CLARITY clear NORMAL: Clear [facility] Specific gravity of Urine by Test strip 1.020 1.001 - 1.030 [facility] pH 5 5 - 9 [facility] al Glucose [Mass/volume] in Urine by Test strip NORM NORMAL: Negat [facility] Bilirubin.total [Presence] in Urine by Test strip NEG NORMAL: Negative [facility] Ketones [Presence] in Urine by Test strip NEG NORMAL: Negative [facility] Protein [Mass/volume] in Urine by Test strip NEG NORMAL: Negat [facility] Nitrite [Presence] in Urine by Test strip NEG NORMAL: Negative [facility] BLOOD NEG NORMAL: Negative [facility] Leukocyte esterase [Presence] in Urine by Test strip NEG ALEX L: Negative [facility] Urobilinogen [Mass/volume] in Urine by Test strip NOR less hugo n 1.0 mg/dL [facility] MICROSCOPIC Not Indicate [facility] ID Date Data Source [id number] 07/12/2019 11:27:00 AM [facility] Name Value Range Interpretation Code Description Data Miroslava rce(s) Supporting Document(s) CULTURE WOUND [facility] .WOUND CULTURE_{ SPECIMEN MIROSLAVA RCE : SKIN Result: [place] [address] CLIA# [id number] SEE SCANNED REPORT ID Date Data Source [id number] 07/14/2019 12:53:00 PM [facility] [address] Name Value Range Interpretation Code Description Data Miroslava rce(s) Supporting Document(s) Bacteria identified in Blood by Culture NO GROWTH AFTER 5 DAYS ID Date Data Source [id number] 07/16/2019 01:43:00 PM [facility] Name Value Range Interpretation Code Description Data Miroslava rce(s) Supporting Document(s) CULTURE BLOOD [facility] _CULTURE BLOOD_ TEST PERFORM ED AT [address] [address] CLIA# [id number] SEE SCANNED REPORT{ PRELIM ID Date Data Source [id number] 07/14/2019 12:51:00 PM [facility] [address] Name Value Range Interpretation Code Description Data Miroslava rce(s) Supporting Document(s) Bacteria identified in Blood by Culture NO GROWTH AFTER 5 DAYS ID Date Data Source [id number] 07/16/2019 01:43:00 PM [facility] Name Value Range Interpretation Code Description Data Miroslava rce(s) Supporting Document(s) [facility] BLOOD [facility] _CULTURE BLOOD_ TEST PERFORM ED AT [address] [address] CLIA# [id number] SEE SCANNED REPORT{ PRELIM ID Date Data Source [id number] 07/11/2019 08:14:00 PM [facility] Name Value Range Interpretation Code Description Data Miroslava rce(s) Supporting Document(s) Cardiolipin IgG Ab [Units/volume] in Serum by Immunoassay 10 GPL U/mL 0-14 [facility] Negative: <15 Indeterminate: 15 - 20 Low-Med Positive: >20 - 80 High Positive: >80 Cardiolipin IgM Ab [Units/volume] in Serum by Immunoassay 9 MPL U/mL 0-12 [facility] Negative: <13 Indeterminate: 13 - 20 Low-Med Positive: >20 - 80 High Positive: >80 ID Date Data Source [id number] 07/09/2019 04:52:00 PM EST [facility] Name Value Range Interpretation Code Description Data Miroslava rce(s) Supporting Document(s) Hemoglobin A1c/Hemoglobin.total in Blood 5.8 % 4.4 - 6.1 [facility] {A1]{HB] ID Date Data Source [id number] 07/09/2019 04:51:00 PM EST [facility] Name Value Range Interpretation Code Description Data Miroslava rce(s) Supporting Document(s) [facility] PANEL [facility] Cholesterol [Mass/volume] in Serum or Plasma 172 MG/DL 131 - 200 [facility] Deprecated Triglyceride [Mass/volume] in Serum or Plasma 135 MG/DL 3 5 - 160 [facility] HDL 39 MG/DL 29 - 86 [facility] Cholesterol in LDL/Cholesterol in HDL [Mass Ratio] in Serum or Plasma 120 mg/dL 65 - 175 [facility] Cholesterol.total/Cholesterol in HDL [Mass Ratio] in Serum o r Plasma 4.4 3.4 - 4.9 [facility] LDL/HDL 3.08 1.00 - 3.55 [facility] CVE RISK CHOL/HDL LDL/HDLMEN: 1/2 AVERAGE 3.43 1.00 AVERAGE 4.97 3.55 2X AVERAGE 9.55 6.25 3X AVERAGE 23.99 7.99WOMEN: 1/2 AVERAGE 3.27 1.47 AVERAGE 4.44 3.22 2X AVERAGE 7.05 5.03 3X AVERAGE 11.04 6.14 ID Date Data Source [id number] 07/09/2019 11:39:00 AM EST [facility] Name Value Range Interpretation Code Description Data Miroslava rce(s) Supporting Document(s) pH of Serum or Plasma 7.31 7.32 - 7.43 L [facility] pCO2 V 54.6 mm/HG 38.0 - 51.0 H [facility] pO2 V 26.8 mm/HG 30.0 - 55.0 L [facility] Bicarbonate [Moles/volume] in Venous blood 26.9 meq/L 22.0 - 29.0 [facility] TCO2 V 28.5 meq/L 22.0 - 29.0 [facility] pital Base excess in Blood by calculation -0.3 -2.0 - 2.0 [facility] O2 SAT V 42.6 % 40.0 - 85.0 [facility] ID Date Data Source [id number] 07/09/2019 11:03:00 AM [facility] Name Value Range Interpretation Code Description Data Miroslava rce(s) Supporting Document(s) BNP 680 PG/ML 0 - 125 H [facility] al ID Date Data Source [id number] 07/09/2019 10:42:00 AM [facility] Name Value Range Interpretation Code Description Data Miroslava rce(s) Supporting Document(s) COMPREHENSIVE METABOLIC PANEL [facility] COMPREHENSIVE METABOLIC PANEL Sodium [Moles/volume] in Serum or Plasma 141 mEq/L 134 - 153 [facility] Potassium [Moles/volume] in Serum or Plasma 4.1 mEq/L 3.6 - 5.0 [facility] Chloride [Moles/volume] in Serum or Plasma 104 mEq/L 98 - 107 [facility] Carbon dioxide, total [Moles/volume] in Serum or Plasma 27 MEQ/L 22 - 30 [facility] Glucose [Mass/volume] in Serum or Plasma 108 MG/DL 65 - 110 [facility] BUN 21 MG/DL 7 - 21 [facility] Creatinine [Mass/volume] in Serum or Plasma 1.3 MG/DL 0.7 - 1.5 [facility] BUN/CREAT 16 8 - 27 [facility] Protein [Mass/volume] in Serum or Plasma 7.1 G/DL 6.3 - 8.2 [facility] Albumin [Mass/volume] in Serum or Plasma 4.3 G/DL 3.9 - 5.0 [facility] Globulin [Mass/volume] in Serum by calculation 2.8 GM/DL 2.4 - 3.2 [facility] A/G RATIO 1.5 0.8 - 2.0 [facility] Calcium [Mass/volume] in Serum or Plasma 9.8 MG/DL 8.4 - 10.2 [facility] Bilirubin.total [Mass/volume] in Serum or Plasma <0.7 MG/DL 0.2 - 1.3 [facility] Alkaline phosphatase [Enzymatic activity/volume] in Serum or Plasma 64 U/L 38 - 126 [facility] Aspartate aminotransferase [Enzymatic activity/volume] in Serum or Plasma 16 U/L 5 - 40 [facility] Alanine aminotransferase [Enzymatic activity/volume] in Seru m or Plasma 9 U/L 7 - 56 [facility] Anion gap 3 in Serum or Plasma 10.0 mmol/L 8.0 - 16.0 [facility] AGE 69 yrs [facility] al NON-AA GFR 58 mL/min [facility] AFR AMER GFR >60 mL/min [facility] Male GFR In terprentation [...] >32 mL/min Normal ID Date Data Source [id number] 07/09/2019 10:40:00 AM [facility] Name Value Range Interpretation Code Description Data Miroslava rce(s) Supporting Document(s) TROPONIN T 0.01 NG/ML 0.00 - 0.10 [facility] TROPONIN T0.1 ng/ml Recommended as the c linical threshold value forTroponin T. ID Date Data Source [id number] 07/09/2019 10:39:00 AM [facility] Name Value Range Interpretation Code Description Data Miroslava rce(s) Supporting Document(s) Lactate [Moles/volume] in Serum or Plasma 1.5 MMOL/L 0.2 - 2.2 [facility] ID Date Data Source [id number] 07/09/2019 10:33:00 AM EST [facility] Name Value Range Interpretation Code Description Data Miroslava rce(s) Supporting Document(s) CBC W/AUTOMATED DIFF [facility] COMPLETE BLOOD COUNT Leukocytes [#/volume] in Blood by Automated count 5.6 10^3/uL 4.2 - 1 1.0 [facility] Erythrocytes [#/volume] in Blood by Automated count 4.29 10^6/uL 4. 50 - 6.30 L [facility] Hemoglobin [Mass/volume] in Blood 13.6 g/dL 14.0 - 16.0 L [facility] Hematocrit [Volume Fraction] of Blood by Automated count 42.1 % 4 1.0 - 51.0 [facility] Erythrocyte mean corpuscular volume [Entitic volume] by Auto mated count 98.1 fL 80.0 - 94.0 H [facility] Erythrocyte mean corpuscular hemoglobin [Entitic mass] by Automated count 31.7 pg 27.0 - 34.0 [facility] Erythrocyte mean corpuscular hemoglobin concentration [Mass/volume] by Automated count 32.3 g/dL 31.0 - 36.0 [facility] Erythrocyte distribution width [Ratio] by Automated count 13.4 % 11.5 - 14.8 [facility] Platelets [#/volume] in Blood by Automated count 197 10^3/uL 150 - 45 0 [facility] Platelet mean volume [Entitic volume] in Blood by Automated count 10.4 fL 7.4 - 10.4 [facility] Neutrophils/100 leukocytes in Blood by Automated count 55.2 % 37. 0 - 80.0 [facility] Lymphocytes/100 leukocytes in Blood by Manual count 27.9 % 25.0 - 40.0 [facility] Monocytes/100 leukocytes in Blood by Automated count 10.2 % 3.0 - 8.0 H [facility] Eosinophils/100 leukocytes in Blood by Automated count 5.2 % 0.0 - 7.0 [facility] Basophils/100 leukocytes in Blood by Automated count 1.1 % 0.0 - 2.0 [facility] %IG 0.4 % 0.0 - 0.0 [facility] %NRBC 0.0 % 0.0 - 0.0 [facility] Neutrophils [#/volume] in Blood by Automated count 3.10 10^3/uL 2.00 - 6.90 [facility] Lymphocytes [#/volume] in Blood by Automated count 1.56 10^3/uL 0.60 - 3.40 [facility] Monocytes [#/volume] in Blood by Automated count 0.57 10^3/uL 0.00 - 0.90 [facility] Eosinophils [#/volume] in Blood by Automated count 0.29 10^3/uL 0.00 - 0.70 [facility] Basophils [#/volume] in Blood by Automated count 0.06 10^3/uL 0.00 - 0.20 [facility] [facility].02 10^3/uL 0.00 - 0.10 [facility] #NRBC 0.00 10^3/uL 0.00 - 0.00 [facility] MANUAL DIFF NOT INDICATED [facility] RBC MORPH NOT INDICATED [facility] ID Date Data Source [id number] 07/09/2019 12:03:00 PM EST [facility] Name Value Range Interpretation Code Description Data Miroslava rce(s) Supporting Document(s) Influenza virus A Ag [Presence] in Nasopharynx by Immunoassa y NEGATIVE NORMAL: NEGATIVE [facility] Influenza virus B Ag [Presence] in Nasopharynx by Immunoassa y NEGATIVE NORMAL: NEGATIVE [facility] NEGATIVENEGATIVE PROCEDURAL CO NTROL VALID KIT LOT [...] 09/15/2019 12:00:00 AM EDT Not Currently completed [facility] Smoking 09/15/2019 12:00:00 AM EDT Never smoker completed Never s moker [facility] Smoking 08/08/2019 12:00:00 AM EDT Unknown if ever smoked comp leted Unknown if ever smoked [facility] Vital Signs ID Date Data Source UNK [...] Inhaled oxygen concentration 21 % 21 % [place] ([facility]) Inhaled oxygen flow rate 0 L/min 0 L/min [place] ([facility]) Oxygen saturation in Arterial blood by Pulse oximetry 92 % 92 % [place] ([facility]) Body temperature 97.3 [degF] 97.3 [degF] [facility] ([facility]) Respiratory rate 24 /min 24 /min [place] ([facility]) Heart rate 90 /min 90 /min [place] ([facility]) Diastolic blood pressure 78 mm[Hg] 78 mm[Hg] [place] ([facility]) Systolic blood pressure 130 mm[Hg] 130 mm[Hg] [facility] Inhaled oxygen concentration 21 % 21 % [place] ([facility]) Inhaled oxygen flow rate 0 L/min 0 L/min [place] ([facility]) Oxygen saturation in Arterial blood by Pulse oximetry 99 % 99 % [place] ([facility]) Body temperature 97.8 [degF] 97.8 [degF] [place] [facility] [facility]) Respiratory rate 24 /min 24 /min [place] ([facility]) Heart rate 95 /min 95 /min [place] ([facility]) Diastolic blood pressure 76 mm[Hg] 76 mm[Hg] [place] ([facility]) Systolic blood pressure 124 mm[Hg] 124 mm[Hg] [facility]) Inhaled oxygen concentration 21 % 21 % [place] ([facility]) L calf measurement 47 cm, L foot 31 cm, and R calf 37 cm , L foot 26 cm Inhaled oxygen flow rate 0 L/min 0 L/min [place] ([facility]) L calf measurement 47 cm, L foot 31 cm, and R calf 37 cm , L foot 26 cm Oxygen saturation in Arterial blood by Pulse oximetry 98 % 98 % [place] ([facility]) L calf measurement 47 cm, L foot 31 cm, and R calf 37 cm , L foot 26 cm Body temperature 97.6 [degF] 97.6 [degF] [place] [facility] ([facility]) L calf measurement 47 cm, L foot 31 cm, and R calf 37 cm , L foot 26 cm Respiratory rate 24 /min 24 /min [place] ([facility]) L calf measurement 47 cm, L foot 31 cm, and R calf 37 cm , L foot 26 cm Heart rate 99 /min 99 /min [place] ([facility]) L calf measurement 47 cm, L foot 31 cm, and R calf 37 cm , L foot 26 cm Diastolic blood pressure 80 mm[Hg] 80 mm[Hg] [place] ([facility]) L calf measurement 47 cm, L foot 31 cm, and R calf 37 cm , L foot 26 cm Systolic blood pressure 130 mm[Hg] 130 mm[Hg] [facility] ([facility]) L calf measurement 47 cm, L foot 31 cm, and R calf 37 cm , L foot 26 cm Inhaled oxygen concentration 21 % 21 % [place] ([facility]) Measured calf circumferance. Left 15.5 i n in diameter. Right, 20 inches in diameter. TS Inhaled oxygen flow rate 0 L/min 0 L/min [place] ([facility]) Measured calf circumferance. Left 15.5 i n in diameter. Right, 20 inches in diameter. TS Oxygen saturation in Arterial blood by Pulse oximetry 94 % 94 % [place] ([facility]) Measured calf circumferance. Left 15.5 i n in diameter. Right, 20 inches in diameter. TS Body temperature 96.8 [degF] 96.8 [degF] [facility] ([facility]) Measured calf circumferance. Left 15.5 i n in diameter. Right, 20 inches in diameter. TS Respiratory rate 22 /min 22 /min [place] ([facility]) Measured calf circumferance. Left 15.5 i n in diameter. Right, 20 inches in diameter. TS Heart rate 78 /min 78 /min [place] ([facility]) Measured calf circumferance. Left 15.5 i n in diameter. Right, 20 inches in diameter. TS Diastolic blood pressure 70 mm[Hg] 70 mm[Hg] [place] ([facility]) Measured calf circumferance. Left 15.5 i n in diameter. Right, 20 inches in diameter. TS Systolic blood pressure 122 mm[Hg] 122 mm[Hg] G JAC[facility] ([facility]) Measured calf circumferance. Left 15.5 i n in diameter. Right, 20 inches in diameter. TS Oxygen saturation in Arterial blood by Pulse oximetry 100 % 100 % [facility] Body temperature 36.61 Oly 36.61 Oly [facility] Heart rate 78 /min 78 /min [facility] Diastolic blood pressure 59 mm[Hg] 59 mm[Hg] [facility] Systolic blood pressure 93 mm[Hg] 93 mm[Hg] S [facility] Respiratory rate 16 /min 16 /min [facility] Body weight 96.191 kg 96.191 kg [facility] Oxygen saturation in Arterial blood by Pulse oximetry 96 % 96 % [place] ([facility]) Body temperature 97.8 [degF] 97.8 [degF] [place] [facility] ([facility]) Respiratory rate 20 /min 20 /min [place] ([facility]) Heart rate 76 /min 76 /min [place] ([facility]) Diastolic blood pressure 60 mm[Hg] 60 mm[Hg] [place] ([facility]) Systolic blood pressure 100 mm[Hg] 100 mm[Hg] G [facility] ([facility]) Oxygen saturation in Arterial blood by Pulse oximetry 91 % 91 % [place] ([facility]) Body temperature 98.8 [degF] 98.8 [degF] [place] [facility] ([facility]) Respiratory rate 24 /min 24 /min [place] ([facility]) Heart rate 92 /min 92 /min [place] ([facility]) Diastolic blood pressure 66 mm[Hg] 66 mm[Hg] [place] ([facility]) Systolic blood pressure 118 mm[Hg] 118 mm[Hg] G [facility] ([facility]) Inhaled oxygen concentration 21 % 21 % [place] ([facility]) Inhaled oxygen flow rate 0 L/min 0 L/min [place] ([facility]) Oxygen saturation in Arterial blood by Pulse oximetry 96 % 96 % [place] ([facility]) Respiratory rate 20 /min 20 /min [place] ([facility]) Heart rate 92 /min 92 /min [place] ([facility]) Diastolic blood pressure 80 mm[Hg] 80 mm[Hg] [place] ([facility]) Systolic blood pressure 140 mm[Hg] 140 mm[Hg] G [facility] ([facility]) Oxygen saturation in Arterial blood by Pulse oximetry 99 % 99 % [place] ([facility]) unable to be weighed in wheel chair Body temperature 97.8 [degF] 97.8 [degF] [place] [facility] ([facility]) unable to be weighed in wheel chair Respiratory rate 24 /min 24 /min [place] ([facility]) unable to be weighed in wheel chair Heart rate 83 /min 83 /min [place] ([facility]) unable to be weighed in wheel chair Diastolic blood pressure 68 mm[Hg] 68 mm[Hg] [place] ([facility]) unable to be weighed in wheel chair Systolic blood pressure 122 mm[Hg] 122 mm[Hg] [facility]) unable to be weighed in wheel chair ID Date Data Source [id number] 08/26/2019 02:35:42 PM EDT [facility] Name Value Range Interpretation Code Description Data Source(s) WEIGHT RECORDED 229.6 lb 229.6 lb [facility] Body height Measured 69 in 69 in [facility] ID Date Data Source [id number] 07/25/2019 12:15:08 PM [facility] Name Value Range Interpretation Code Description Data Source(s) WEIGHT RECORDED 229.50 pounds 229.50 pounds [facility] Height 66 Inches 066 Inches [facility] Patient Treatment Plan of Care Planned Activity Planned Date Details Description Data Source (s) Amoxicillin 875 MG / Clavulanate 125 MG Oral Tablet 05/06/20 20 12:00:00 AM [facility]) Mupirocin 0.02 MG/MG Topical Ointment 05/06/2020 12:00:00 AM [facility]) Acetaminophen 325 MG / Hydrocodone Bitartrate 5 MG Ora l Tablet 04/28/2020 12:00:00 AM [facility]) Carboxymethylcellulose Sodium 5 MG/ML Ophthalmic Solut ion 04/06/2020 12:00:00 AM [facility] ([facility]) Acetaminophen 325 MG / Hydrocodone Bitartrate 5 MG Ora l Tablet 04/06/2020 12:00:00 AM [facility] ([facility]) GLORIA Elastic Bandage 4" Miscellaneous 04/06/2020 12:00:00 AM [facility]) rivaroxaban 20 MG Oral Tablet [Xarelto] 04/06/2020 12:00:00 AM [facility]) Senna 8.6 MG Oral Tablet 04/06/2020 12:00:00 AM [facility]) buspirone hydrochloride 5 MG Oral Tablet 04/06/2020 12:00:00 AM EST [place] ([facility]) Citalopram 20 MG Oral Tablet 04/06/2020 12:00:00 AM [facility]) duloxetine 30 MG Delayed Release Oral Capsule [Cymbalt a] 04/06/2020 12:00:00 AM [facility] Diltiazem Hydrochloride 30 MG Oral Tablet 04/06/2020 12:00:00 AM [facility] ([facility]) gabapentin 300 MG Oral Capsule 04/06/2020 12:00:00 AM [facility] ([facility]) Levetiracetam 750 MG Oral Tablet [Keppra] 04/06/2020 12:00:00 AM [facility] ([facility]) Furosemide 20 MG Oral Tablet [Lasix] 04/06/2020 12:00:00 AM [facility]) atorvastatin 20 MG Oral Tablet [Lipitor] 04/06/2020 12:00:00 AM EST [facility]) Melatonin 5 MG Oral Tablet 04/06/2020 12:00:00 AM [facility] ([facility]) Pramipexole dihydrochloride 1 MG Oral Tablet [Mirapex] 04/06/2020 12:00:00 AM [facility] ([facility]) pantoprazole 40 MG Delayed Release Oral Tablet [Proton ix] 04/06/2020 12:00:00 AM [facility] ([facility]) quetiapine 50 MG Oral Tablet 04/06/2020 12:00:00 AM [facility]) Aspercreme Lidocaine 4% External Patch 04/06/2020 12:00:00 AM EST [facility]) Acetaminophen 325 MG Oral Tablet 04/06/2020 12:00:00 AM [facility]) Carboxymethylcellulose Sodium 5 MG/ML Ophthalmic Solut ion 04/06/2020 12:00:00 AM [facility]) Acetaminophen 325 MG / Hydrocodone Bitartrate 5 MG Ora l Tablet 03/30/2020 12:00:00 AM EST [place] ([facility]) GLORIA Elastic Bandage 4" Miscellaneous 03/16/2020 12:00:00 AM EDT [place] ([facility]) Acetaminophen 325 MG / Hydrocodone Bitartrate 5 MG Ora l Tablet 03/04/2020 12:00:00 AM EDT [place] ([facility]) POLYETHYLENE GLYCOL 3350 142 MG/ML Oral Solution 09/19/2019 12:00:0 0 AM EDT [facility] pantoprazole 40 MG Delayed Release Oral Tablet 09/19/2019 12:00:00 AM EDT [facility] lidocaine (ASPERCREME) 4 % PTCH 09/19/2019 12:00:00 AM EDT [facility] Docusate Sodium 50 MG / sennosides, SNF 8.6 MG Oral Ta blet 09/18/2019 12:00:00 AM EDT [facility] Ondansetron 4 MG Disintegrating Oral Tablet 09/18/2019 12:00:00 AM EDT [facility] Citalopram 40 MG Oral Tablet 08/21/2019 12:00:00 AM [facility] linezolid 600 MG Oral Tablet 08/15/2019 12:00:00 AM [facility] Oxycodone Hydrochloride 5 MG Oral Tablet 08/15/2019 12:00:00 AM [facility] Melatonin 3 MG Oral Tablet 08/15/2019 12:00:00 AM [facility] sennosides, SNF 35.2 MG/ML Oral Solution 08/08/2019 06:14:41 PM [facility] Bisacodyl 10 MG Rectal Suppository 08/08/2019 06:14:41 PM [facility] Furosemide 20 MG Oral Tablet [Lasix] 08/05/2019 [facility] Pramipexole dihydrochloride 1 MG Oral Tablet 08/05/2019 12:00:00 AM [facility] gabapentin 300 MG Oral Capsule 08/05/2019 12:00:00 AM [facility] Omeprazole 20 MG Delayed Release Oral Capsule 08/05/2019 12:00:00 A M [facility] buspirone hydrochloride 5 MG Oral Tablet 08/05/2019 12:00:00 AM [facility] Furosemide 20 MG Oral Tablet 08/05/2019 12:00:00 AM [facility] Levofloxacin 500 MG Oral Tablet [Levaquin] 07/22/2019 12:00:00 AM [facility]) quetiapine 25 MG Oral Tablet 07/09/2019 12:00:00 AM [facility] Levetiracetam 750 MG Oral Tablet 07/09/2019 12:00:00 AM [facility] rivaroxaban 20 MG Oral Tablet [Xarelto] 07/09/2019 12:00:00 AM [facility] Citalopram 40 MG Oral Tablet 07/09/2019 12:00:00 AM [facility] duloxetine 30 MG Delayed Release Oral Capsule 07/09/2019 12:00:00 A M [facility] Diltiazem Hydrochloride 30 MG Oral Tablet 07/09/2019 12:00:00 AM [facility] atorvastatin 40 MG Oral Tablet 07/09/2019 12:00:00 AM [facility] rivaroxaban 20 MG Oral Tablet [Xarelto] 07/08/2019 12:00:00 AM [facility]) Acetaminophen 325 MG / Hydrocodone Bitartrate 5 MG Ora l Tablet 07/08/2019 12:00:00 AM [facility] ([facility]) Acetaminophen 325 MG / Hydrocodone Bitartrate 5 MG Ora l Tablet 07/08/2019 12:00:00 AM [facility]ital rivaroxaban 20 MG Oral Tablet [Xarelto] 06/17/2019 12:00:00 AM [facility] ([facility]) Acetaminophen 325 MG / Hydrocodone Bitartrate 5 MG Ora l Tablet 05/27/2019 12:00:00 AM [facility]) Warfarin Sodium 4 MG Oral Tablet 12/07/2016 12:00:00 AM [facility] sennosides, SNF 35.2 MG/ML Oral Solution 12/07/2016 12:00:00 AM [facility] pantoprazole (PROTONIX) 2 mg/mL SUSP oral suspension 017 12:00:00 AM [facility] Melatonin 3 MG Oral Tablet 12/07/2016 12:00:00 AM [facility] Levetiracetam 100 MG/ML Oral Solution 12/07/2016 12:00:00 AM [facility] Diltiazem Hydrochloride 30 MG Oral Tablet 12/07/2016 12:00:[address] [facility] atorvastatin 80 MG Oral Tablet 12/07/2016 12:00:00 AM [facility] atorvastatin 80 MG Oral Tablet [facility] Citalopram 20 MG Oral Tablet [facility] Baclofen 10 MG Oral Tablet [facility] Vitamin B 12 0.5 MG Oral Tablet [facility] B Complex Vitamins (VITAMIN B COMPLEX) [facility] carvedilol 3.125 MG Oral Tablet [facility]
[2020-07-20 18:00] VITALS: BP 114/68
[2020-07-20 22:00] VITALS: BP 116/64
[2020-07-20] MEDS ORDERED: RIVAROXABAN 20 MG TAB (XARELTO) PO ONE (22:00)
[2020-07-20] MEDS: QUEtiapine FUMARATE 50MG TAB PO SCH (22:35)
[2020-07-20] MEDS: GABAPENTIN 300 MG CAP PO SCH (22:35)
[2020-07-20] MEDS: PRAMIPEXOLE 1 MG TAB PO SCH (22:35)
[2020-07-20] MEDS: DULoxetine 30 MG CAP (CYMBALTA) PO SCH (22:35)
[2020-07-20] MEDS: ATORVASTATIN 20 MG TAB PO SCH (22:36)
[2020-07-20] MEDS: NORCO, ANEXSIA 5/325MG TABLET (HYDROcodone/ACETAMINOPHEN) PO PRN (22:36)
--- NOTE | 2020-07-20 22:57 | HPEPDOC ---
[facility] Medical History & Physical Date of Admission Jul 20, 2020 Date of Service: Jul 20, 2020 Attending Physician: JEWELS TERRELL MD History and Physical CHIEF COMPLAINT: Shortness of breath HISTORY OF PRESENT ILLNESS: 70 year old male with PMH of CAD s/p CABG, Afib, DVT (on Xarelto), CVA with residual R sided weakness presents with shortness of breath. Patient has expressive aphasia associated with CVA and has difficulty answering in detail. He reports mild dyspnea over the past few days, no associated symptoms. LE Doppler in the ED positive for DVT, CTA negative for PE. He does have RLL atelectasis with possible pulmonary vascular congestion. Patient is otherwise close to his baseline, denies any CP, N/V/D or abdominal pain. 10 point ROS is negative except for above. PAST MEDICAL HISTORY: 1. CAD 2. Afib 3. CVA PAST SURGICAL HISTORY: 1. CABG SOCIAL HISTORY: Previous smoker Denies alcohol use denies drug use FAMILY HISTORY: positive for heart disease ALLERGIES: Please see below. HOME MEDICATIONS: Please see below. PHYSICAL EXAMINATION: General: No distress Oral: Moist mucus membranes Neck: Supple Lungs: Basilar rhonchi Cardiac: Irregular Abdomen: Soft, non-tender, non-distended Extremities: Trace edema Neurologist: Flaccid RUE, significant weakness in RLE (2/5), LUE & LLE 5/5, no sensory deficits appreciated. Expressive aphasia present Skin: Intact LABORATORY DATA: See below. IMAGING: CT w/ pulmonary vascular congestion & RLL atelectasis. MICROBIOLOGY: Please see below. ASSESSMENT: 70 y.o male with multiple medical issues presents with SOB which is possibly attributed with fluid overload &/or atelectasis. PLAN: 1. Shortness of breath - possible fluid overload and/or atelectasis - hemodynamically stable, on room air. CTA negative for PE - s/p IV Lasix in the ED, will give an additional dose of IV Lasix followed by restarting home PO Lasix as I don't believe patient is overtly fluid overloaded. - symptoms are more likely related to RLL atelectasis as patient has severe R sided weakness & laying towards his right side which is probably what he prefers & dose at baseline. In turn, that probably leads to atelectasis. - Incentive spirometer ordered - PT eval - can likely be discharged within 24-48 hours unless there's a change in clinical presentation. 2. CAD - s/p CABG - continue home regimen 3. Afib - continue cardizem & Xarelto 4. DVT - LE doppler in ED positive for DVT - CTA negative for PE - continue Xarelto 5. h/o CVA - residual R sided weakness - continue aspirin & statin - PT eval DVT Prophylaxis - on Xarelto GI Prophylaxis - home PPI Vital Signs Vital Signs Date Time Temp Pulse Resp B/P (MAP) Pulse Ox O2 Delivery O2 Flow Rate FiO2 07/20/20 22:00 98.9 80 18 116/64 (81) 96 Room Air Laboratory Data Labs 24H Laboratory Tests 2 07/20/20 10:52: Immature Granulocyte % (Auto) 0.2, Neutrophils (%) (Auto) 55.6, Lymphocytes (%) (Auto) 29.7, Monocytes (%) (Auto) 10.9H, Eosinophils (%) (Auto) 3.2H, Basophils (%) (Auto) 0.4, Neutrophils # (Auto) 2.8, Lymphocytes # (Auto) 1.5, Monocytes # (Auto) 0.6, Eosinophils # (Auto) 0.2, Basophils # (Auto) 0.0, Nucleated Red Blood Cells % (auto) 0.0, Anion Gap 3L, Glomerular Filtration Rate > 60.0, Lactic Acid Level 1.7, Calcium Level 9.5, Total Bilirubin 0.5, Direct Bilirubin 0.1, Aspartate Amino Transf (AST/SGOT) 13, Alanine Aminotransferase (ALT/SGPT) 12, Alkaline Phosphatase 66, Total Creatine Kinase 45, Creatine Kinase MB 1.0, Creatine Kinase MB Relative Index 2.22, Troponin I < 0.02, MY-Nmn-B-Type Natriuretic Peptide 1217H, Total Protein 7.7, Albumin 3.6, Albumin/Globulin Ratio 0.9, Thyroid Stimulating Hormone (TSH) 0.429, Thyroxine (T4) 8.4 07/20/20 12:21: POC pH (Misc Panel) 7.434, POC Base Excess (Misc Panel) 2.0, POC Saturated Percent O2 (Misc) 96, POC pO2 (Misc Panel) 76.0L, POC pCO2 (Misc Panel) 38.5, POC HCO3 (Misc Panel) 25.8, POC Total CO2 (Misc Panel) 27.0 CBC/BMP Laboratory Tests 07/20/20 10:52 Microbiology Microbiology 07/20/20 Respiratory Virus Panel (PCR) ([facility]) - Final, Complete Home Medications Scheduled Atorvastatin Calcium (Atorvastatin Calcium) 20 Mg Tablet, 20 MG PO QHS Citalopram Hydrobromide (Citalopram HBr) 20 Mg Tablet, 20 MG PO DAILY Diltiazem HCl (Diltiazem HCl) 30 Mg Tablet, 30 MG PO TID Duloxetine Hcl (Duloxetine HCl) 30 Mg Capsule.dr, 30 MG PO BID Furosemide (Furosemide) 20 Mg Tablet, 20 MG PO BID Gabapentin (Gabapentin) 300 Mg Capsule, 300 MG PO BID Pantoprazole Sodium (Pantoprazole Sodium) 40 Mg Tablet.dr, 40 MG PO DAILY Pramipexole Di-HCl (Pramipexole Dihydrochloride) 1 Mg Tablet, 1 MG PO BID Quetiapine Fumarate (Quetiapine Fumarate) 50 Mg Tablet, 50 MG PO QHS Rivaroxaban (Xarelto) 20 Mg Tablet, 20 MG PO DAILY Scheduled PRN Hydrocodone/Acetaminophen (Hydrocodone-Acetamin 5-325 mg) 1 Each Tablet, 1 TAB PO Q8H PRN for PAIN Allergies Coded Allergies: bupropion (Verified Allergy, Unknown, 07/10/19) divalproex sodium (Verified Allergy, Unknown, 07/10/19) paroxetine (Verified Allergy, Unknown, 07/10/19) simvastatin (Verified Allergy, Unknown, 07/10/19) A-FIB/CHADSVASC A-FIB History Current/History of A-Fib/PAF?: Yes Current PO Anticoag Therapy: Yes JEWELS TERRELL MD Jul 20, 2020 22:57
[2020-07-21 06:00] VITALS: BP 119/57
[2020-07-21] MEDS: NORCO, ANEXSIA 5/325MG TABLET (HYDROcodone/ACETAMINOPHEN) PO PRN ×2 (06:50→17:11)
[2020-07-21 06:58] LABS: HEMATOCRIT 40.5 % (42.0-52.0); HEMOGLOBIN 12.9 g/dl (13.5-17.5); MEAN CORPUSCULAR HEMOGLOBIN 31.2 pg (27.0-33.0); MEAN CORPUSCULAR HGB CONC 31.9 g/dl (32.0-36.5); MEAN CORPUSCULAR VOLUME 97.8 fl (80.0-96.0); PLATELET COUNT, AUTOMATED 167 10^3/uL (150-450); RED BLOOD COUNT 4.14 10^6/uL (4.30-6.10); WHITE BLOOD COUNT 6.1 10^3/uL (4.0-10.0)
[2020-07-21 07:32] LABS: ALBUMIN 3.9 GM/DL (3.2-5.2); BILIRUBIN,TOTAL 0.6 MG/DL (0.2-1.0); CALCIUM LEVEL 9.1 MG/DL (8.8-10.2); CREATININE FOR GFR 1.36 MG/DL (0.70-1.30); GLOMERULAR FILTRATION RATE 55.2 (>42); MAGNESIUM LEVEL 2.2 MG/DL (1.8-2.4); POTASSIUM SERUM 4.3 MEQ/L (3.5-5.1); TOTAL PROTEIN 7.4 GM/DL (6.4-8.2)
[2020-07-21] MEDS ORDERED: FUROSEMIDE 20 MG TAB PO SCH (09:00)
[2020-07-21] MEDS: DULoxetine 30 MG CAP (CYMBALTA) PO SCH ×2 (09:09→21:20)
[2020-07-21] MEDS: CitaloPRAM (CeleXA) 20 MG TAB PO SCH (09:09)
[2020-07-21] MEDS: PANTOPRAZOLE 40MG TAB (PROTONIX) PO SCH (09:09)
[2020-07-21] MEDS: PRAMIPEXOLE 1 MG TAB PO SCH ×2 (09:09→21:20)
[2020-07-21] MEDS: GABAPENTIN 300 MG CAP PO SCH ×2 (09:09→21:20)
[2020-07-21] MEDS ORDERED: rOPINIRole 0.25 MG TAB(REQUIP) PO ONE (12:30)
[2020-07-21 14:00] VITALS: BP 102/57
--- NOTE | 2020-07-21 14:58 | IPNPDOC ---
Subjective Date Seen The patient was seen on 07/21/20. Subjective Chief Complaint/HPI continues to complain of SOB though not requiring any oxygen and not tachypniec. Objective Physical Examination General Exam: Positive: Alert, Cooperative, No Acute Distress Eye Exam: Positive: Conjunctiva & lids normal, EOMI; Negative: Sclera icteric Neck Exam: Positive: Supple; Negative: JVD, thyromegaly Chest Exam: Positive: Clear to auscultation, Normal air movement Heart Exam: Positive: Rate Normal, Regular Rhythm, Normal S1, Normal S2; Negative: Murmurs, Rubs Abdomen Exam: Positive: Normal bowel sounds, Soft; Negative: Tenderness Extremity Exam: Positive: Edema (chronic on the right leg); Negative: Clubbing, Cyanosis Skin Exam: Positive: Nl turgor and temperature; Negative: Rash, Breakdown Neuro Exam: Positive: Other (Aphasia dna right hemiparesis) Assessment /Plan Assessment 70 year old male with PMH of CAD s/p CABG, Afib, DVT (on Xarelto), CVA with residual R sided weakness, aphasia presents with shortness of breath. Patient has expressive aphasia associated with CVA and has difficulty answering in detail. He reported mild dyspnea over the past few days, no associated symptoms. LE Doppler in the ED positive for DVT, CTA negative for PE. He does have RLL atelectasis with possible pulmonary vascular congestion. Shortness of breath possible fluid overload and/or atelectasis CTA negative for PE Will give another iv lasix today then po lasix from tomorrow. I don't believe patient is overtly fluid overloaded. symptoms are more likely related to RLL atelectasis as patient has severe R sided weakness & laying towards his right side which is probably what he prefers to do at baseline. In turn, that probably leads to atelectasis. Incentive spirometer PT eval CAD s/p CABG continue home regimen Afib continue cardizem & Xarelto Chronic DVT LE doppler in ED positive for DVT CTA negative for PE continue Xarelto H/o CVA residual R sided weakness and Expressive aphasia adn chronic neuropathic pain continue aspirin & statin, gabapentin, cymbalta PT eval Depression related to medical issues continue citalopram RLS on pramipexole Plan/VTE VTE Prophylaxis Ordered?: Yes VS, I&O, 24H, Fishbone Vital Signs/I&O Vital Signs Date Time Temp Pulse Resp B/P (MAP) Pulse Ox O2 Delivery O2 Flow Rate FiO2 07/21/20 07:20 18 07/21/20 06:50 Room Air 07/21/20 06:00 97.5 76 119/57 (77) 97 I&O- Last 24 Hours up to 6 AM 07/21/20 06:00 Intake Total 620 ml Output Total 1975 ml Balance -1355 ml Laboratory Data 24H LABS Laboratory Tests 2 07/21/20 06:21: Nucleated Red Blood Cells % (auto) 0.0, Anion Gap 9, Glomerular Filtration Rate 55.2, Calcium Level 9.1, Magnesium Level 2.2, Total Bilirubin 0.6, Aspartate Amino Transf (AST/SGOT) 10, Alanine Aminotransferase (ALT/SGPT) 15, Alkaline Phosphatase 68, Total Protein 7.4, Albumin 3.9, Albumin/Globulin Ratio 1.1 CBC/BMP Laboratory Tests 07/21/20 06:21 Microbiology Microbiology 07/20/20 Respiratory Virus Panel (PCR) ([facility]) - Final, Complete CHIQUIS SOSA MD Jul 21, 2020 14:58
[2020-07-21] MEDS: FUROSEMIDE 40MG/4ML VIAL (J1940) IV SCH ×2 (17:00→17:10)
[2020-07-21] MEDS ORDERED: RIVAROXABAN 20 MG TAB (XARELTO) PO SCH (18:00)
[2020-07-21] MEDS: QUEtiapine FUMARATE 50MG TAB PO SCH (21:20)
[2020-07-21] MEDS: ATORVASTATIN 20 MG TAB PO SCH (21:20)
[2020-07-21 22:00] VITALS: BP 102/60
[2020-07-22 09:00] VITALS: BP 99/61
[2020-07-22] MEDS: FUROSEMIDE 40MG/4ML VIAL (J1940) IV SCH (09:00)
[2020-07-22] MEDS: PANTOPRAZOLE 40MG TAB (PROTONIX) PO SCH (09:55)
[2020-07-22] MEDS: GABAPENTIN 300 MG CAP PO SCH (09:55)
[2020-07-22] MEDS: CitaloPRAM (CeleXA) 20 MG TAB PO SCH (09:55)
[2020-07-22] MEDS: PRAMIPEXOLE 1 MG TAB PO SCH (09:55)
[2020-07-22] MEDS: DULoxetine 30 MG CAP (CYMBALTA) PO SCH (09:55)
[2020-07-22] MEDS: NORCO, ANEXSIA 5/325MG TABLET (HYDROcodone/ACETAMINOPHEN) PO PRN (09:57)
--- NOTE | 2020-07-22 10:23 | ECHO ---
DATE OF PROCEDURE: 07/21/2020 Age: 70 Gender: Male Height: 178 cm Weight: 92 kg REFERRING PHYSICIAN: Cass Gee M.D. INDICATION: Dyspnea. MEASUREMENTS: IVS 1.0 cm LV 5.0 cm LVPW 1.2 cm LA 5.2 cm Aorta 2.9 cm FINDINGS: This study is of limited technical quality with difficult visualization. There is underlying atrial fibrillation with wide QRS complex. The left ventricle is of normal size. There is extensive wall motion abnormality involving the mid and distal septum, apex, and distal inferior wall. These segments are essentially akinetic. Remaining LV segments are hypokinetic. I estimate overall LVEF approximately 25% to 30%. Right ventricle was poorly seen. Both atria are severely enlarged. The aortic valve has three cusps, but is sclerotic. Mobility of cusps is preserved. Mitral, tricuspid, and pulmonic valves appear normal. No pericardial effusion is noted. Inferior vena cava was not seen. Aortic root is normal. Aortic arch and abdominal aorta were not visualized. Doppler interrogation of the aortic valve reveals no stenosis and trace insufficiency. There is mild mitral and trace tricuspid insufficiency. Pulmonic valve is functionally competent. Calculated pulmonary artery pressure is in the upper limits of normal values, assuming normal central venous pressure, but this is based on poor quality of TR jet and should not be considered completely reliable. Evaluation of diastolic function is inconclusive due to underlying atrial fibrillation. CONCLUSIONS: 1. Study is of fair technical quality, underlying atrial fibrillation with wide QRS complex. 2. Normal LV size with extensive wall motion abnormalities as outlined above, and overall estimated LVEF approximately 25% to 30%. 3. Right ventricle was not well seen. 4. Severe biatrial enlargement. 5. No hemodynamically significant valvular disease. 6. Unable to estimate central venous pressure. [facility]
--- NOTE | 2020-07-24 19:14 | DS.PDOC ---
Discharge Summary General Date of Admission Jul 20, 2020 at 10:31 Date of Discharge 07/22/20 Discharge Summary PROCEDURES PERFORMED DURING STAY: ECHO: 1. Study is of fair technical quality, underlying atrial fibrillation with wideQRS complex. 2. Normal LV size with extensive wall motion abnormalities as outlined above, and overall estimated LVEF approximately 25% to 30%. 3. Right ventricle was not well seen. 4. Severe biatrial enlargement. 5. No hemodynamically significant valvular disease. 6. 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 COMPLICATIONS/CHIEF COMPLAINT: Chf Dvt Sob. HOSPITAL COURSE: 70 year old male with PMH of CAD s/p CABG, Afib, DVT (on Xarelto), CVA with residual R sided weakness, aphasia presents with shortness of breath. Patient has expressive aphasia associated with CVA and has difficulty answering in detail. He reported dyspnea over the past few days. LE Doppler in the ED positive for DVT, CTA negative for PE. Echo in hospital showed EF of 25% to 30% with extensive wall motion abnormality involving the mid and distal septum, apex, and distal inferior wall. These segments are essentially akinetic. Remaining LV segments are hypokinetic. He was diagnosed with Systolic CHF exacerbation. He also has right lower lobe atelectasis. Systolic CHF exacerbation with right lower lobe atelectasis EF of 25% to 30% with wall motion abnormalities due to ischemic cardiomyopathy SOB improved after IV lasix and diuresis. CTA negative for PE Continue lasix home dose. Incentive spirometer CAD s/p CABG continue home regimen Follow up with cardiology Afib continue cardizem & Xarelto as Patient has systolic CHF his diltiazem should be stopped and different rate control medication used I defer this change to his PMD or heel top lift splitter. Chronic DVT bilateral. LE doppler in ED positive for DVT CTA negative for PE continue Xarelto H/o CVA residual R sided weakness and Expressive aphasia adn chronic neuropathic pain continue aspirin & statin, gabapentin, cymbalta Depression related to medical issues continue citalopram RLS on pramipexole DISCHARGE MEDICATIONS: Please see below. ALLERGIES: Please see below. PHYSICAL EXAMINATION ON DISCHARGE: VITAL SIGNS: Please see below. General Exam: Positive: Alert, Cooperative, No Acute Distress Eye Exam: Positive: Conjunctiva & lids normal, EOMI; Negative: Sclera icteric Neck Exam: Positive: Supple; Negative: JVD, thyromegaly Chest Exam: Positive: Clear to auscultation, Normal air movement Heart Exam: Positive: Rate Normal, Regular Rhythm, Normal S1, Normal S2; Negative: Murmurs, Rubs Abdomen Exam: Positive: Normal bowel sounds, Soft; Negative: Tenderness Extremity Exam: Positive: Edema (chronic on the right leg); Negative: Clubbing, Cyanosis Skin Exam: Positive: Nl turgor and temperature; Negative: Rash, Breakdown Neuro Exam: Positive: Other (Aphasia and right hemiparesis) LABORATORY DATA: Please see below. IMAGING: PROGNOSIS: ACTIVITY: [As tolerated]. DIET: DISCHARGE PLAN: DISPOSITION: 01 Home, Self-Care. DISCHARGE INSTRUCTIONS: 1. . ITEMS TO FOLLOWUP ON ON OUTPATIENT: 1. . DISCHARGE CONDITION: [Stable]. TIME SPENT ON DISCHARGE: Greater than minutes. Vital Signs/I&Os Vital Signs Date Time Temp Pulse Resp B/P (MAP) Pulse Ox O2 Delivery O2 Flow Rate FiO2 07/22/20 10:27 16 07/22/20 09:00 91 99/61 07/21/20 22:00 97.3 95 Room Air Laboratory Data CBC/BMP Item Value Date Time White Blood Count 6.1 10^3/uL 07/21/20620 Red Blood Count 4.14 10^6/uL L 07/21/20620 Hemoglobin 12.9 g/dl L 07/21/20620 Hematocrit 40.5 % L 07/21/20620 Mean Corpuscular Volume 97.8 fl H 07/21/20620 Mean Corpuscular Hemoglobin 31.2 pg 07/21/20620 Mean Corpuscular Hemoglobin Concent 31.9 g/dl L 07/21/20620 Platelet Count 167 10^3/uL 07/21/20620 Red Cell Distribution Width 15.0 % H 07/21/20620 Sodium Level 139 MEQ/L 07/21/20620 Potassium Level 4.3 MEQ/L 07/21/20620 Chloride Level 105 MEQ/L 07/21/2021 Carbon Dioxide Level 25 MEQ/L 07/21/20620 Anion Gap 9 MEQ/L 07/21/2021 Blood Urea Nitrogen 21 MG/DL H 07/21/2021 Creatinine 1.36 MG/DL H 07/21/20620 Glomerular Filtration Rate 55.2 07/21/2021 Fasting Glucose 117 MG/DL H 07/21/2021 Calcium Level 9.1 MG/DL 07/21/2021 Magnesium Level 2.2 MG/DL 07/21/20620 Total Bilirubin 0.6 MG/DL 07/21/2021 Aspartate Amino Transf (AST/SGOT) 10 U/L 07/21/20620 Alanine Aminotransferase (ALT/SGPT) 15 U/L 07/21/20620 Alkaline Phosphatase 68 U/L 07/21/20620 Total Protein 7.4 GM/DL 07/21/2021 Albumin 3.9 GM/DL 07/21/20620 Albumin/Globulin Ratio 1.1 07/21/20620 NZ-Nlw-C-Type Natriuretic Peptide 1217 PG/ML H 07/20/20 1052 Thyroid Stimulating Hormone (TSH) 0.429 uIU/ML 07/20/20 1052 Thyroxine (T4) 8.4 UG/DL 07/20/20 1052 Microbiology Microbiology 07/20/20 Respiratory Virus Panel (PCR) (RAJENDRA) - Final, Complete Discharge Medications Scheduled Atorvastatin Calcium (Atorvastatin Calcium) 20 Mg Tablet, 20 MG PO QHS, (Reported) Citalopram Hydrobromide (Citalopram HBr) 20 Mg Tablet, 20 MG PO DAILY, (Reported) Diltiazem HCl (Diltiazem HCl) 30 Mg Tablet, 30 MG PO TID, (Reported) Duloxetine Hcl (Duloxetine HCl) 30 Mg Capsule.dr, 30 MG PO BID, (Reported) Furosemide (Furosemide) 20 Mg Tablet, 20 MG PO BID, (Reported) Gabapentin (Gabapentin) 300 Mg Capsule, 300 MG PO BID, (Reported) Pantoprazole Sodium (Pantoprazole Sodium) 40 Mg Tablet.dr, 40 MG PO DAILY, (Reported) Pramipexole Di-HCl (Pramipexole Dihydrochloride) 1 Mg Tablet, 1 MG PO BID, (Reported) Quetiapine Fumarate (Quetiapine Fumarate) 50 Mg Tablet, 50 MG PO QHS, (Reported) Rivaroxaban (Xarelto) 20 Mg Tablet, 20 MG PO DAILY, (Reported) Scheduled PRN Hydrocodone/Acetaminophen (Hydrocodone-Acetamin 5-325 mg) 1 Each Tablet, 1 TAB PO Q8H PRN for PAIN, (Reported) Allergies Coded Allergies: bupropion (Verified Allergy, Unknown, 07/10/19) divalproex sodium (Verified Allergy, Unknown, 07/10/19) paroxetine (Verified Allergy, Unknown, 07/10/19) simvastatin (Verified Allergy, Unknown, 07/10/19) CHIQUIS SOSA MD Jul 24, 2020 19:14
== END 2020-07-22 13:51 | disposition home or self-care (01) ==
LOC: M ED 10:30 → M ED INP 10:31 → M MSPAV 18:00
PROVIDERS: ADMIT Internal Medicine; ATTEND Internal Medicine Nephrology
DX: I50.21 Acute systolic (congestive) heart failure (principal); I25.5 Ischemic cardiomyopathy; J98.11 Atelectasis; I25.10 Atherosclerotic heart disease of native coronary artery without angina pectoris; I48.20 Chronic atrial fibrillation, unspecified; Z79.01 Long term (current) use of 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s; I82.503 Chronic embolism and thrombosis of unspecified deep veins of lower extremity, bilateral; R06.02 Shortness of breath; Z86.73 Personal history of transient ischemic attack (TIA), and cerebral infarction without residual deficits; R47.01 Aphasia; F41.9 Anxiety disorder, unspecified; F32.9 Major depressive disorder, single episode, unspecified; G25.81 Restless legs syndrome; G40.909 Epilepsy, unspecified, not intractable, without status epilepticus; Z91.19 Patient's noncompliance with other medical treatment and regimen; Z79.899 Other long term (current) drug therapy; Z88.8 Allergy status to other drugs, medicaments and biological substances; Z87.891 Personal history of nicotine dependence
CPT/HCPCS: 36415; 36600; 71045; 71275; 80048; 80053; 80076; 82550; 82553; 82803; 83605; 83735; 83880; 84436; 84443; 84484; 85025; 85027; 87798; 93005; 93041; 93306; 93970; 94640; 94664; 96374; 96376; 97161; 97530; 99285; G0378; J1940; Q9967

== ENCOUNTER 2020-09-23 12:23 | Inpatient (IN) | payer MEDICARE ==
[~2020-09-23] VITALS: Ht 177.8 cm; Wt 90.1 kg
[~2020-09-23 12:23] MED LIST changes: +ATOR1TAB21 PO; +DULO1CAP5 PO; +PANT40TA29 PO; +QUET50TA3 PO
[2020-09-23] MEDS ORDERED: NS 1,000 ML IV ONE (12:55)
[2020-09-23] MEDS ORDERED: ONDANSETRON 4MG/2ML VIAL IV ONE (13:10)
[2020-09-23 13:32] LABS: BASO % 0.5 % (0.0-1.0); EOS # 0.1 10^3/uL (0.0-0.5); EOS % 0.9 % (0.0-3.0); HEMATOCRIT 37.1 % (42.0-52.0); LYMPH # 1.6 10^3/uL (1.5-5.0); LYMPH % 25.3 % (24.0-44.0); MEAN CORPUSCULAR HEMOGLOBIN 32.1 pg (27.0-33.0); MEAN CORPUSCULAR HGB CONC 32.3 g/dl (32.0-36.5); MEAN CORPUSCULAR VOLUME 99.2 fl (80.0-96.0); MONO # 0.5 10^3/uL (0.0-0.8); NEUTROPHILS # 4.2 10^3/uL (1.5-8.5); PLATELET COUNT, AUTOMATED 159 10^3/uL (150-450); RED BLOOD COUNT 3.74 10^6/uL (4.30-6.10); WHITE BLOOD COUNT 6.4 10^3/uL (4.0-10.0)
[2020-09-23 13:56] LABS: ALBUMIN 3.5 GM/DL (3.2-5.2); BILIRUBIN,DIRECT 0.3 MG/DL (0.0-0.2); BILIRUBIN,TOTAL 1.7 MG/DL (0.2-1.0); INR 2.3; PROTHROMBIN TIME 25.8 SECONDS (12.5-14.3); TOTAL PROTEIN 6.9 GM/DL (6.4-8.2)
[2020-09-23 13:57] LABS: PARTIAL THROMBOPLASTIN TIME 41.1 SECONDS (24.2-38.5)
[2020-09-23] MEDS ORDERED: ISOVUE-370 76% 100ML VIAL As Ordered ONE (14:47)
--- NOTE | 2020-09-23 15:47 | REP ---
INDICATION: left sided abd pain. COMPARISON: None. TECHNIQUE: Helical scanning was acquired and 4 mm axial images are re-formatted. Coronal and sagittal MPR images were generated and reviewed. The contrast enhancement dose is 100 mL of intravenous Isovue 370. FINDINGS: Preliminary digital senior director creative services radiograph demonstrates orthopedic fixation rods in the right hip and an IVC filter. The patient is rotated to the right. Bowel gas pattern is unremarkable. On axial images at lung windows there is no evidence of infiltrate. There is a small air cyst in the left lower lobe of the lung. No pleural effusion or upper abdominal ascites is seen. The liver and the spleen are normal in size homogeneous in texture. No abnormality is noted in the gallbladder or the pancreas. There is a descending duodenal diverticulum which is small. IVC filter is seen in place. The inferior vena cava is quite small in the lower abdomen below the level of the filter. Vascular calcification is seen in a normal caliber aorta. Extensive aortic plaquing is seen with some luminal narrowing of the aorta. No retroperitoneal mass or adenopathy is seen. Small and large intestinal bowel loops are unremarkable. A normal appendix is seen in the right mid abdomen. Seminal vesicles and urinary bladder are unremarkable. There are some dystrophic calcifications in the prostate. The kidneys enhance symmetrically with some mild atrophy. No bony destructive lesion is seen. IMPRESSION: No acute abdominal or pelvic abnormality seen. <Electronically signed by Cornelius Adan > 09/23/20 [id number]
[2020-09-23 18:58] LABS: RSV AMPLIFICATION NEGATIVE (NEGATIVE)
[2020-09-23] MEDS ORDERED: GABA600T4 PO (18:59)
[2020-09-23] MEDS ORDERED: SERO1TAB PO (18:59)
[2020-09-23] MEDS ORDERED: BUME1TAB3 PO (18:59)
[2020-09-23] MEDS ORDERED: CORE3.12 PO (18:59)
[2020-09-23] MEDS ORDERED: SERO200T PO (18:59)
[2020-09-23] MEDS ORDERED: TRAZ-252 PO (18:59)
[2020-09-23] MEDS ORDERED: DRON400T PO (18:59)
[2020-09-23] MEDS ORDERED: PANTOPRAZOLE 40MG VIAL (C9113 PER 1) IV SCH (19:10)
[2020-09-23] MEDS ORDERED: ONDANSETRON 4MG/2ML VIAL IV PRN (19:10)
--- NOTE | 2020-09-23 19:59 | HPEPDOC ---
General Date of Admission 09/23/20 Date of Service: Sep 23, 2020 Chief Complaint The patient is a 70-year-old male admitted with a reason for visit of Lower Abdominal Pain. Source: Patient, RN/MD History of Present Illness 70 [place] old [place] with PMH of CAD s/p CABG, Afib, DVT (on Xarelto), CVA with residual R sided weakness, expressive aphasia p resented to ED with right periumbilical, right lower quadrant and hypogastric abdominal pain for 4 days and black colored stools. Denied diarrhea, denied vomiting. No constipation. Had a bowel movement today. What I understood was that his stools were formed and not liquid. He was heme positive in the ED. He was admitted for possible GIB. Getting a history is very difficult due to his expressive aphasia. Most of the history is from ED provider, chart review. He can understand questions but unfortunately can answer only yes and no questions so detailed history is was not possible. I am not sure how reliable his hisotry and time frame of the history is. Home Medications Scheduled Atorvastatin Calcium (Atorvastatin Calcium) 20 Mg Tablet, 20 MG PO QHS, (Reported) 1999. Bumetanide (Bumetanide) 1 Mg Tablet, 1 MG PO Q12H, (Reported) 1999 Carvedilol (Coreg) 3.125 Mg Tablet, 3.125 MG PO Q12H, (Reported) 1999 Diltiazem HCl (Cardizem) 30 Mg Tablet, 30 MG PO TID, (Reported) 0800, 1199, 1999 Dronedarone (Multaq) 400 Mg Tablet, 400 MG PO Q12H, (Reported) 1999 Gabapentin (Gabapentin) 600 Mg Tablet, 600 MG PO Q12H, (Reported) 799, 1999 Pantoprazole Sodium (Pantoprazole Sodium) 40 Mg Tablet.dr, 40 MG PO DAILY, (Reported) Pramipexole Di-HCl (Pramipexole Dihydrochloride) 1 Mg Tablet, 1 MG PO BID, (Reported) Quetiapine Fumarate (Seroquel) 200 Mg Tablet, 200 MG PO QHS, (Reported) 1999 Quetiapine Fumarate (Seroquel) 100 Mg Tablet, 100 MG PO QHS, (Reported) Rivaroxaban (Xarelto) 20 Mg Tablet, 20 MG PO DAILY, (Reported) Trazodone HCl (Trazodone HCl) 50 Mg Tablet, 50 MG PO QHS, (Reported) Scheduled PRN Hydrocodone/Acetaminophen (Hydrocodone-Acetamin 5-325 mg) 1 Each Tablet, 1 TAB PO BID PRN for PAIN, (Reported) Sennosides (Senna) 8.6 Mg Tablet, 8.6 MG PO DAILY PRN for CONSTIPATION, (Reported) Allergies Coded Allergies: bupropion (Verified Allergy, Unknown, 07/10/19) divalproex sodium (Verified Allergy, Unknown, 07/10/19) paroxetine (Verified Allergy, Unknown, 07/10/19) simvastatin (Verified Allergy, Unknown, 07/10/19) Past Medical History Medical History Duodenal ulcers with h/o GIB Duodenal diverticulum Systolic CHF EF of 25% to 30%. 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 Surgical History CABG 2008 Robotic right inguinal hernia repair 2016, IVC placement 2019, Right hip # s/p ORIF COLONOSCOPY- DR GRIMES- 2 POLYPS- REPEAT IN 05/2016 Family History FATHER: 76 YRS, LUNG CANCER, MOTHER: 84 YRS, LUNG CANCER, SIBLINGS: 58 YRS, STROKE, HYPERTENSION, UNSPECIFIED HEART DISEASE, UNSPECIFIED CEREBRAL ARTERY OCCLUSION WITH CEREBRAL INFARCTION SISTER WITH COLON CANCER AT AGE 72. Social History * Smoker: former Smoker Alcohol: Denies Drugs: denies A-FIB/CHADSVASC A-FIB History Current/History of A-Fib/PAF?: Yes Current PO Anticoag Therapy: Yes Review of Systems Constitutional: Denies: Chills, Fever, Night Sweats Eyes: Denies: Pain, Vision change ENT: Denies: Head Aches, Ear Pain, Dysphagia Skin: Denies: Rash, Lesions, Breakdown Pulmonary: Denies: Dyspnea, Cough Cardiovascular: Reports: Edema; Denies: Chest Pain, Palpitations, Paroxysmal Noc. Dyspnea Gastrointestinal: Reports: Abdominal Pain, Melena; Denies: Nausea, Vomiting Genitourinary: Denies: Incontinence, Retention Hematologic: Denies: Bruising, Bleeding Excessively Psych: Reports: Anxiety, Depression Physical Examination General Exam: Positive: Alert, Cooperative, No Acute Distress Eye Exam: Positive: PERRLA, Conjunctiva & lids normal, EOMI; Negative: Sclera icteric ENT Exam: Positive: Atraumatic, Mucous membr. moist/pink, Pharynx Normal Neck Exam: Positive: Supple; Negative: JVD, thyromegaly Chest Exam: Positive: Clear to auscultation, Normal air movement Heart Exam: Positive: Tachycardic, Regular Rhythm, Normal S1, Normal S2; Negative: Murmurs, Rubs Abdomen Exam: Positive: BS Hyperactive, Soft, Tenderness (right LQ, right paraumbilical area and hypogastrium); Negative: Hepatospenomegaly Extremity Exam: Positive: Edema (right leg ); Negative: Clubbing, Cyanosis Skin Exam: Positive: Other skin issue (chronic venous stasis rubor in right leg) Neuro Exam: Positive: Other (right hemiparesis, expressive aphasia. ) Psych Exam: Positive: Anxiety Vital Signs Vital Signs Date Time Temp Pulse Resp B/P (MAP) Pulse Ox O2 Delivery O2 Flow Rate FiO2 09/23/20 17:53 81 18 109/59 (76) 98 Room Air 09/23/20 17:31 98.9 Laboratory Data Labs 24H Laboratory Tests 2 09/23/20 13:01: Immature Granulocyte % (Auto) 0.3, Neutrophils (%) (Auto) 65.0, Lymphocytes (%) (Auto) 25.3, Monocytes (%) (Auto) 8.0, Eosinophils (%) (Auto) 0.9, Basophils (%) (Auto) 0.5, Neutrophils # (Auto) 4.2, Lymphocytes # (Auto) 1.6, Monocytes # (Auto) 0.5, Eosinophils # (Auto) 0.1, Basophils # (Auto) 0.0, Nucleated Red Blood Cells % (auto) 0.0, Prothrombin Time 25.8H, Prothromb Time International Ratio 2.30, Activated Partial Thromboplast Time 41.1H, Total Bilirubin 1.7H, Direct Bilirubin 0.3H, Aspartate Amino Transf (AST/SGOT) 17, Alanine Aminotransferase (ALT/SGPT) 13, Alkaline Phosphatase 69, Total Protein 6.9, Albumin 3.5, Albumin/Globulin Ratio 1.0, Lipase 87 09/23/20 14:21: POC Glucose (Misc Panel) 104, POC Sodium (Misc Panel) 141, POC Potassium (Misc Panel) 4.5, POC Chloride (Misc Panel) 107, POC Total CO2 (Misc Panel) 26.0, POC Blood Urea Nitrogen (Misc Panel 23, POC Ionized Calcium (Misc Panel) 4.8, POC Creatinine (Misc Panel) 1.5H, POC Hematocrit (Misc Panel) 36.0L 09/23/20 16:28: Urine Color YELLOW, Urine Appearance HAZY, Urine pH 5.0, Urine Specific [place] 1.046, Urine Protein NEGATIVE, Urine Glucose (UA) NEGATIVE, Urine Ketones NEGATIVE, Urine Blood 3+H, Urine Nitrite NEGATIVE, Urine Bilirubin NEGATIVE, Urine Urobilinogen 0.2, Urine Leukocyte Esterase NEGATIVE, Urine WBC (Auto) 4H, Urine RBC (Auto) 11H, Urine Hyaline Casts (Auto) 0, Urine Bacteria (Auto) NEGATIVE, Urine Squamous Epithelial Cells 0, Urine Mucus (Auto) SMALL, Urine Sperm (Auto) CBC/BMP Laboratory Tests 09/23/20 13:01 Assessment/Plan 70 [place] old [place] from [place] with PMH of CAD s/p CABG, Afib, DVT (on Xarelto), CVA with residual R sided weakness, expressive aphasia presented to ED with right periumbilical, lower abdominal pain for 4 days and black colored stools. He was heme positive in the ED. He was admitted for possible GIB. Getting a history is very difficult due to his expressive aphasia. Possible GIB on the back ground of being on xarelto with elevated INR. may be upper GIB as has h/o duodenal ulcer and duodenal polyp. will give PPI and sucralfate. monitor HH q [address] abdomen negative for any acute abnormality clear liquid diet. Systolic CHF EF of 25% to 30% with wall motion abnormalities due to ischemic cardiomyopathy fluid restriction 1.8L will resume bumax tomorrow. CAD s/p CABG coreg, statin, will hold xarelto for now. Chronic Afib on Dronedarone and coreg Chronic DVT bilateral. has IVC filter in place will hold xarelto for possible GIB. H/o CVA residual R sided hemiparesis and Expressive aphasia and chronic neuropathic pain and chronic right leg swelling. continue statin, gabapentin Depression related to medical issues seroquel, trazodone Plan / VTE VTE Prophylaxis Ordered?: Yes RAYCHIQUIS MD Sep 23, 2020 18:36
[2020-09-23] MEDS ORDERED: DRONEDARONE 400 MG TAB (MULTAQ) PO SCH (21:00)
[2020-09-23] MEDS ORDERED: CARVedilol 3.125 MG TAB PO SCH (21:00)
[2020-09-23 22:50] VITALS: BP 101/58
[2020-09-23] MEDS: traZODone 50 MG TAB PO SCH (23:09)
[2020-09-23] MEDS: SUCRALFATE SUSP 1GM/10ML UD PO SCH (23:09)
[2020-09-23] MEDS: ATORVASTATIN 20 MG TAB PO SCH (23:10)
[2020-09-23] MEDS: CARVedilol 3.125 MG TAB PO SCH (23:10)
[2020-09-23] MEDS: GABAPENTIN 300 MG CAP PO SCH (23:10)
[2020-09-23] MEDS: QUEtiapine FUMARATE 200 MG TAB PO SCH (23:24)
[2020-09-23] MEDS: DRONEDARONE 400 MG TAB (MULTAQ) PO SCH (23:25)
[2020-09-23] MEDS: QUEtiapine FUMARATE 100 MG TAB PO SCH (23:41)
[2020-09-23 23:50] LABS: HEMATOCRIT 36.5 % (42.0-52.0); HEMOGLOBIN 11.7 g/dl (13.5-17.5)
[2020-09-24] MEDS ORDERED: PRAMIPEXOLE 1 MG TAB PO PRN (00:35)
[2020-09-24 06:00] VITALS: BP 114/76
[2020-09-24] MEDS ORDERED: CARD40TA PO (06:28)
[2020-09-24] MEDS ORDERED: SENN-80 PO (06:28)
[2020-09-24] MEDS ORDERED: PANT40TA29 PO (06:28)
[2020-09-24] MEDS ORDERED: PRAM1TAB7 PO (06:28)
[2020-09-24 06:30] LABS: BASO % 0.6 % (0.0-1.0); EOS # 0.2 10^3/uL (0.0-0.5); EOS % 2.9 % (0.0-3.0); HEMATOCRIT 36.4 % (42.0-52.0); HEMOGLOBIN 11.6 g/dl (13.5-17.5); LYMPH % 32.6 % (24.0-44.0); MEAN CORPUSCULAR HEMOGLOBIN 31.7 pg (27.0-33.0); MEAN CORPUSCULAR HGB CONC 31.9 g/dl (32.0-36.5); MEAN CORPUSCULAR VOLUME 99.5 fl (80.0-96.0); MONO # 0.5 10^3/uL (0.0-0.8); MONO % 7.9 % (2.0-8.0); NEUTROPHILS # 3.4 10^3/uL (1.5-8.5); NEUTROPHILS % 55.7 % (36.0-66.0); PLATELET COUNT, AUTOMATED 127 10^3/uL (150-450); RED BLOOD COUNT 3.66 10^6/uL (4.30-6.10); WHITE BLOOD COUNT 6.2 10^3/uL (4.0-10.0)
[2020-09-24 06:55] LABS: CALCIUM LEVEL 8.9 MG/DL (8.8-10.2); CREATININE FOR GFR 1.41 MG/DL (0.70-1.30); GLOMERULAR FILTRATION RATE 52.9 (>42)
[2020-09-24 06:58] LABS: INR 1.95; PROTHROMBIN TIME 22.7 SECONDS (12.5-14.3)
--- NOTE | 2020-09-24 07:56 | ECGEPIP ---
[facility] Test Date: 2020-09-24 Pat Name: ROBERTO GIL Department: Room: [place] [address] Gender: Male Last Puller: savana : 1950 Requested By: SOUMYA Desir Order Number: [id number] Reading MD: Nataly Burk Measurements Intervals [place] Rate: 92 P: RI: QRS: 99 QRSD: 144 T: 57 QT: 440 QTc: 544 Interpretive Statements Atrial fibrillation Right bundle branch block BORDERLINE RT AXIS// Inferior infarct , age undetermined COPD PATTERN sTABLE C/W 07/20/20 Electronically Signed on 09-24-2020 7:56:32 EDT by Nataly Burk
[2020-09-24] MEDS: GABAPENTIN 300 MG CAP PO SCH ×2 (09:00→20:19)
[2020-09-24] MEDS: DRONEDARONE 400 MG TAB (MULTAQ) PO SCH (09:00)
[2020-09-24] MEDS: SUCRALFATE SUSP 1GM/10ML UD PO SCH ×4 (09:00→20:18)
[2020-09-24] MEDS: CARVedilol 3.125 MG TAB PO SCH ×2 (09:00→20:19)
[2020-09-24] MEDS: PANTOPRAZOLE 40MG VIAL (C9113 PER 1) IV SCH ×2 (09:00→20:19)
[2020-09-24 12:29] LABS: HEMATOCRIT 35.1 % (42.0-52.0); HEMOGLOBIN 11.4 g/dl (13.5-17.5)
[2020-09-24] MEDS: SENOKOT S TAB PO SCH ×2 (13:36→20:18)
--- NOTE | 2020-09-24 13:40 | IPNPDOC ---
Subjective Date Seen The patient was seen on 09/24/20. Subjective Chief Complaint/HPI Has urinary retention but refused straight cath. he has been voiding 150 to 250 cc at a time. Post void residual was 236 cc. He has not had any bowel movement in the hospital. I feel like he may be constipated though he says he has been having bowel movements. To me he said he was still having lower abdominal pain early in the morning however no further pain in the afternoon. Objective Physical Examination General Exam: Positive: Alert, Cooperative, No Acute Distress Eye Exam: Positive: PERRLA, Conjunctiva & lids normal, EOMI; Negative: Sclera icteric ENT Exam: Positive: Atraumatic, Mucous membr. moist/pink, Pharynx Normal Neck Exam: Positive: Supple; Negative: JVD, thyromegaly Chest Exam: Positive: Clear to auscultation, Normal air movement Heart Exam: Positive: Tachycardic, Regular Rhythm, Normal S1, Normal S2; Negative: Murmurs, Rubs Abdomen Exam: Positive: BS Hyperactive, Soft, Tenderness (in the hypogastrium and both right and left lower quadrant.), Other (No guarding or rigidity, no rebound); Negative: Hepatospenomegaly Extremity Exam: Positive: Edema (right leg ); Negative: Clubbing, Cyanosis Skin Exam: Positive: Other skin issue (chronic venous stasis rubor in right leg) Neuro Exam: Positive: Other (right hemiparesis, expressive aphasia. ) Psych Exam: Positive: Anxiety Assessment /Plan Assessment 70 year old male from [place] with PMH of CAD s/p CABG, Afib, DVT (on Xarelto), CVA with residual R sided weakness, expressive aphasia presented to ED with right periumbilical, lower abdominal pain for 4 days and black colored stools. He was heme positive in the ED. He was admitted for po ssible GIB. Getting a history is very difficult due to his expressive aphasia. Possible GIB on the back ground of being on xarelto with elevated INR. may be upper GIB as has h/o duodenal ulcer and duodenal polyp. will give PPI and sucralfate. hh stable, no bowel movement CT abdomen negative for any acute abnormality advance diet. Systolic CHF EF of 25% to 30% with wall motion abnormalities due to ischemic cardiomyopathy fluid restriction 1.8L will resume bumax patient is also on diltiazem will hold due to low blood pressure and low EF. CAD s/p CABG coreg, statin, will hold xarelto for now. Chronic Afib on Dronedarone and coreg will hold diltiazem as has an EF of 25%. Qtc prolonged at 544 Chronic DVT bilateral. has IVC filter in place will hold xarelto for possible GIB. H/o CVA residual R sided hemiparesis and Expressive aphasia and chronic neuropathic pain and chronic right leg swelling. continue statin, gabapentin Depression related to medical issues seroquel, trazodone Qtc prolonged. Plan/VTE VTE Prophylaxis Ordered?: Yes VS, I&O, 24H, Fishbone Vital Signs/I&O Vital Signs Date Time Temp Pulse Resp B/P (MAP) Pulse Ox O2 Delivery O2 Flow Rate FiO2 09/24/20 09:00 76 95/55 09/24/20 06:00 97.0 17 97 Room Air I&O- Last 24 Hours up to 6 AM 09/24/20 06:00 Intake Total 1210 ml Output Total 100 ml Balance 1110 ml Laboratory Data 24H LABS Laboratory Tests 2 09/23/20 14:21: POC Glucose (Misc Panel) 104, POC Sodium (Misc Panel) 141, POC Potassium (Misc Panel) 4.5, POC Chloride (Misc Panel) 107, POC Total CO2 (Misc Panel) 26.0, POC Blood Urea Nitrogen (Misc Panel 23, POC Ionized Calcium (Misc Panel) 4.8, POC Creatinine (Misc Panel) 1.5H, POC Hematocrit (Misc Panel) 36.0L 09/23/20 16:28: Urine Color YELLOW, Urine Appearance HAZY, Urine pH 5.0, Urine Specific [place] 1.046, Urine Protein NEGATIVE, Urine Glucose (UA) NEGATIVE, Urine Ketones NEGATIVE, Urine Blood 3+H, Urine Nitrite NEGATIVE, Urine Bilirubin NEGATIVE, Urine Urobilinogen 0.2, Urine Leukocyte Esterase NEGATIVE, Urine WBC (Auto) 4H, Urine RBC (Auto) 11H, Urine Hyaline Casts (Auto) 0, Urine Bacteria (Auto) NEGATIVE, Urine Squamous Epithelial Cells 0, Urine Mucus (Auto) SMALL, Urine Sperm (Auto) 09/23/20 18:12: Coronavirus (COVID-19)(PCR) NEGATIVE, Influenza Type A (RT-PCR) NEGATIVE, Influenza Type B (RT-PCR) NEGATIVE, Respiratory Syncytial Virus (PCR) NEGATIVE 09/24/20 06:17: Immature Granulocyte % (Auto) 0.3, Neutrophils (%) (Auto) 55.7, Lymphocytes (%) (Auto) 32.6, Monocytes (%) (Auto) 7.9, Eosinophils (%) (Auto) 2.9, Basophils (%) (Auto) 0.6, Neutrophils # (Auto) 3.4, Lymphocytes # (Auto) 2.0, Monocytes # (Auto) 0.5, Eosinophils # (Auto) 0.2, Basophils # (Auto) 0.0, Nucleated Red Blood Cells % (auto) 0.0, Prothrombin Time 22.7H, Prothromb Time International Ratio 1.95, Anion Gap 7L, Glomerular Filtration Rate 52.9, Calcium Level 8.9 CBC/BMP Laboratory Tests 09/23/20 23:43 09/24/20 06:17 09/24/20 12:16 CHIQUIS SOSA MD Sep 24, 2020 13:40
[2020-09-24] MEDS ORDERED: MOM 30ML SUSPENSION UDC PO ONE (14:00)
[2020-09-24 16:45] VITALS: BP 97/56
[2020-09-24] MEDS: BUMETANIDE 1 MG TAB PO SCH (16:49)
[2020-09-24] MEDS ORDERED: DIGOXIN 0.25 MG TAB PO ONE (16:55)
[2020-09-24 18:19] LABS: HEMATOCRIT 36.9 % (42.0-52.0); HEMOGLOBIN 11.8 g/dl (13.5-17.5)
[2020-09-24] MEDS: QUEtiapine FUMARATE 200 MG TAB PO SCH (20:18)
[2020-09-24] MEDS: PRAMIPEXOLE 1 MG TAB PO SCH (20:18)
[2020-09-24] MEDS: ATORVASTATIN 20 MG TAB PO SCH (20:18)
[2020-09-24] MEDS: traZODone 50 MG TAB PO SCH (20:18)
[2020-09-24] MEDS: QUEtiapine FUMARATE 100 MG TAB PO SCH (20:18)
[2020-09-24 20:19] VITALS: BP 101/53
[2020-09-24 22:00] VITALS: BP 101/53
[2020-09-25 00:27] LABS: HEMATOCRIT 34.4 % (42.0-52.0); HEMOGLOBIN 11.1 g/dl (13.5-17.5)
[2020-09-25] MEDS ORDERED: NYSTATIN 100,000 UNITS/GM TOPICAL PWD 15 GM TOP PRN (04:10)
[2020-09-25 06:00] VITALS: BP 104/55
[2020-09-25] MEDS: BUMETANIDE 1 MG TAB PO SCH ×2 (06:36→16:24)
[2020-09-25] MEDS ORDERED: DIGOXIN 0.25 MG TAB PO ONE ×2 (07:00→15:00)
--- NOTE | 2020-09-25 07:44 | IPNPDOC ---
Subjective Date Seen The patient was seen on 09/25/20. Subjective Chief Complaint/HPI Indicates that abdominal pain has resolved. Bladder scan does show small amounts of retention but did not need straight cath. No bowel movements in the hospital Objective Physical Examination General Exam: Positive: Alert, Cooperative, No Acute Distress, Other (aphasia) Eye Exam: Positive: PERRLA, Conjunctiva & lids normal, EOMI; Negative: Sclera icteric ENT Exam: Positive: Atraumatic, Mucous membr. moist/pink, Pharynx Normal Neck Exam: Positive: Supple; Negative: JVD, thyromegaly Chest Exam: Positive: Clear to auscultation, Normal air movement Heart Exam: Positive: Tachycardic, Regular Rhythm, Normal S1, Normal S2; Negative: Murmurs, Rubs Abdomen Exam: Positive: BS Hyperactive, Soft, Tenderness (in the hypogastrium and both right and left lower quadrant.), Other (No guarding or rigidity, no rebound); Negative: Hepatospenomegaly Extremity Exam: Positive: Edema (right leg ); Negative: Clubbing, Cyanosis Skin Exam: Positive: Other skin issue (chronic venous stasis rubor in right leg) Neuro Exam: Positive: Other (right hemiparesis, expressive aphasia. ) Psych Exam: Positive: Anxiety Assessment /Plan Assessment 70 year old male from [facility] with PMH of CAD s/p CABG, Afib, DVT (on Xarelto), CVA with residual R sided weakness, expressive aphasia presented to ED with right periumbilical, lower abdominal pain for 4 days and black colored stools. He was heme positive in the ED. He was admitted for poss ible GIB. Getting a history is very difficult due to his expressive aphasia. Possible GIB on the back ground of being on xarelto with elevated INR. may be upper GIB as has h/o duodenal ulcer and duodenal polyp. on PPI and sucralfate. hh stable, no bowel movement CT abdomen negative for any acute abnormality tolerating diet. Will resume xarelto on discharge. Systolic CHF EF of 25% to 30% with wall motion abnormalities due to ischemic cardiomyopathy fluid restriction 1.8L will resume bumax as needed. consulted Dr Wilkinson discontinued dronedarone and diltiazem due to low EF and chronic Afib started loading with digoxin. After loading to continued with 0.125 daily. CAD s/p CABG coreg, statin, will hold xarelto for now. Chronic Afib started on digoxin, continue coreg if BP permits. Qtc prolonged at 544 will recheck. stopped diltiazem and dronedarone for low Ejection fraction. Chronic DVT bilateral. has IVC filter in place will hold xarelto for possible GIB. H/o CVA residual R sided hemiparesis and Expressive aphasia and chronic neuropathic pain and chronic right leg swelling. continue statin, gabapentin Depression related to medical issues seroquel, trazodone Qtc prolonged. Plan/VTE VTE Prophylaxis Ordered?: Yes VS, I&O, 24H, Fishbone Vital Signs/I&O Vital Signs Date Time Temp Pulse Resp B/P (MAP) Pulse Ox O2 Delivery O2 Flow Rate FiO2 09/25/20 06:36 73 09/25/20 06:00 97.2 16 104/55 (71) 96 Room Air I&O- Last 24 Hours up to 6 AM 09/25/20 06:00 Intake Total 1920 ml Output Total 1875 ml Balance 45 ml Laboratory Data CBC/BMP Laboratory Tests 09/24/20 12:16 09/24/20 18:00 09/25/20 00:01 CHIQUIS SOSA MD Sep 25, 2020 07:44
[2020-09-25] MEDS: PANTOPRAZOLE 40MG VIAL (C9113 PER 1) IV SCH ×3 (07:53→21:13)
[2020-09-25] MEDS: SUCRALFATE SUSP 1GM/10ML UD PO SCH ×4 (07:53→21:13)
[2020-09-25] MEDS: SENOKOT S TAB PO SCH ×2 (07:54→21:13)
[2020-09-25] MEDS: PRAMIPEXOLE 1 MG TAB PO SCH ×2 (07:54→21:13)
[2020-09-25] MEDS: GABAPENTIN 300 MG CAP PO SCH ×2 (07:54→21:13)
[2020-09-25 09:19] LABS: BASO % 0.5 % (0.0-1.0); EOS # 0.2 10^3/uL (0.0-0.5); EOS % 3.1 % (0.0-3.0); HEMATOCRIT 40.8 % (42.0-52.0); HEMOGLOBIN 12.8 g/dl (13.5-17.5); LYMPH # 1.4 10^3/uL (1.5-5.0); LYMPH % 23.7 % (24.0-44.0); MEAN CORPUSCULAR HEMOGLOBIN 31.5 pg (27.0-33.0); MEAN CORPUSCULAR HGB CONC 31.4 g/dl (32.0-36.5); MEAN CORPUSCULAR VOLUME 100.5 fl (80.0-96.0); MONO # 0.4 10^3/uL (0.0-0.8); MONO % 7.2 % (2.0-8.0); NEUTROPHILS # 3.8 10^3/uL (1.5-8.5); PLATELET COUNT, AUTOMATED 141 10^3/uL (150-450); RED BLOOD COUNT 4.06 10^6/uL (4.30-6.10); WHITE BLOOD COUNT 5.9 10^3/uL (4.0-10.0)
[2020-09-25 09:29] LABS: INR 1.4; PROTHROMBIN TIME 17.5 SECONDS (12.5-14.3)
[2020-09-25 09:51] LABS: ALBUMIN 3.2 GM/DL (3.2-5.2); BILIRUBIN,DIRECT 0.3 MG/DL (0.0-0.2); BILIRUBIN,TOTAL 1.2 MG/DL (0.2-1.0); CALCIUM LEVEL 9.2 MG/DL (8.8-10.2); CREATININE FOR GFR 1.41 MG/DL (0.70-1.30); GLOMERULAR FILTRATION RATE 52.9 (>42); POTASSIUM SERUM 4.1 MEQ/L (3.5-5.1); TOTAL PROTEIN 6.4 GM/DL (6.4-8.2)
[2020-09-25 14:00] VITALS: BP 119/63
[2020-09-25] MEDS: QUEtiapine FUMARATE 100 MG TAB PO SCH (21:13)
[2020-09-25] MEDS: ATORVASTATIN 20 MG TAB PO SCH (21:13)
[2020-09-25] MEDS: QUEtiapine FUMARATE 200 MG TAB PO SCH (21:13)
[2020-09-25] MEDS: traZODone 50 MG TAB PO SCH (21:13)
[2020-09-25 22:00] VITALS: BP 118/64
[2020-09-26 06:00] VITALS: BP 118/66
[2020-09-26] MEDS: BUMETANIDE 1 MG TAB PO SCH ×2 (06:12→17:31)
[2020-09-26 06:37] LABS: BASO % 0.5 % (0.0-1.0); EOS # 0.2 10^3/uL (0.0-0.5); EOS % 2.6 % (0.0-3.0); HEMATOCRIT 40.3 % (42.0-52.0); HEMOGLOBIN 12.9 g/dl (13.5-17.5); LYMPH # 1.1 10^3/uL (1.5-5.0); MEAN CORPUSCULAR HEMOGLOBIN 31.5 pg (27.0-33.0); MEAN CORPUSCULAR VOLUME 98.3 fl (80.0-96.0); MONO # 0.5 10^3/uL (0.0-0.8); MONO % 8.1 % (2.0-8.0); NEUTROPHILS # 4.4 10^3/uL (1.5-8.5); NEUTROPHILS % 70.2 % (36.0-66.0); PLATELET COUNT, AUTOMATED 153 10^3/uL (150-450); WHITE BLOOD COUNT 6.3 10^3/uL (4.0-10.0)
[2020-09-26 06:51] LABS: CALCIUM LEVEL 8.6 MG/DL (8.8-10.2); CREATININE FOR GFR 1.4 MG/DL (0.70-1.30); GLOMERULAR FILTRATION RATE 53.3 (>42); INR 1.19; POTASSIUM SERUM 4.2 MEQ/L (3.5-5.1); PROTHROMBIN TIME 15.4 SECONDS (12.5-14.3)
[2020-09-26] MEDS: SUCRALFATE SUSP 1GM/10ML UD PO SCH ×4 (08:50→21:13)
[2020-09-26] MEDS: SENOKOT S TAB PO SCH ×2 (08:50→21:12)
[2020-09-26] MEDS: PRAMIPEXOLE 1 MG TAB PO SCH ×2 (08:50→21:12)
[2020-09-26] MEDS: DIGOXIN 0.125 MG TAB PO SCH (08:51)
[2020-09-26] MEDS: GABAPENTIN 300 MG CAP PO SCH ×2 (08:51→21:13)
[2020-09-26] MEDS ORDERED: RIVAROXABAN 20 MG TAB (XARELTO) PO SCH (09:00)
[2020-09-26] MEDS: PANTOPRAZOLE 40MG TAB (PROTONIX) PO SCH (09:20)
--- NOTE | 2020-09-26 13:18 | IPNPDOC ---
Subjective Date Seen The patient was seen on 09/26/20. Subjective Chief Complaint/HPI And patient reports that he does have some mild abdominal discomfort today, however he denies pain, it appears that he just does not have much of an appetite. It is difficult to obtain any history due to his expressive aphasia. He denies any other symptoms, and says "no" to the remainder of his review of systems. Objective Physical Examination General Exam: Positive: Alert, Cooperative, No Acute Distress, Other (aphasia) Eye Exam: Positive: PERRLA, Conjunctiva & lids normal, EOMI; Negative: Sclera icteric ENT Exam: Positive: Atraumatic, Mucous membr. moist/pink, Pharynx Normal Neck Exam: Positive: Supple; Negative: JVD, thyromegaly Chest Exam: Positive: Clear to auscultation, Normal air movement Heart Exam: Positive: Tachycardic, Regular Rhythm, Normal S1, Normal S2; Negative: Murmurs, Rubs Abdomen Exam: Positive: BS Hyperactive, Soft, Other (No guarding or rigidity, no rebound); Negative: Hepatospenomegaly Extremity Exam: Positive: Edema (right leg ); Negative: Clubbing, Cyanosis Skin Exam: Positive: Other skin issue (chronic venous stasis rubor in right leg) Neuro Exam: Positive: Other (right hemiparesis, expressive aphasia. ) Psych Exam: Positive: Anxiety Assessment /Plan Assessment 70 year old male from [place] apartments with PMH of CAD s/p CABG, Afib, DVT (on Xarelto), CVA with residual R sided weakness, expressive aphasia presented to ED with right periumbilical, lower abdominal pain for 4 days and black colored stools. He was heme positive in the ED. He was admitted for possible GIB. Getting a history is very difficult due to his expressive aphasia. Possible GIB in the setting of being on xarelto with elevated INR. may be upper GIB as has h/o duodenal ulcer and duodenal polyp. -Continue PPI and sucralfate. - hh stable, no bowel movement - CT abdomen negative for any acute abnormality - tolerating diet. - Resume xarelto today, and monitor for bleeding over the next 24-48 hrs. Systolic CHF EF of 25% to 30% with wall motion abnormalities due to ischemic cardiomyopathy fluid restriction 1.8L will resume bumax as needed. consulted Dr Wilkinson discontinued dronedarone and diltiazem due to low EF and chronic Afib given loading dose of digoxin 09/25/20, continue with 0.125 daily. CAD s/p CABG -statin -Bp still sof, so hold Coreg for now Chronic Afib started on digoxin, continue coreg if BP permits. Qtc prolonged at 544 will recheck. stopped diltiazem and dronedarone for low Ejection fraction. Chronic DVT bilateral. has IVC filter in place Restart Xarelto now H/o CVA residual R sided hemiparesis and Expressive aphasia and chronic neuropathic pain and chronic right leg swelling. continue statin, gabapentin Depression related to medical issues seroquel, trazodone Qtc prolonged. Plan/VTE VTE Prophylaxis Ordered?: Yes Disposition Xarelto will be started again today. Also, since he hasn't had a bowel movement since admission, will increase his dose of stool softener at this time. If H/H remains stable, anticipate discharge within the next 24-48 hours. VS, I&O, 24H, Fishbone Vital Signs/I&O Vital Signs Date Time Temp Pulse Resp B/P (MAP) Pulse Ox O2 Delivery O2 Flow Rate FiO2 09/26/20 08:51 88 09/26/20 06:00 97.9 17 118/66 (83) 97 Room Air I&O- Last 24 Hours up to 6 AM 09/26/20 06:00 Intake Total 2040 ml Output Total 3725 ml Balance -1685 ml Laboratory Data 24H LABS Laboratory Tests 2 09/26/20 05:59: Immature Granulocyte % (Auto) 0.6, Neutrophils (%) (Auto) 70.2H, Lymphocytes (%) (Auto) 18.0L, Monocytes (%) (Auto) 8.1H, Eosinophils (%) (Auto) 2.6, Basophils (%) (Auto) 0.5, Neutrophils # (Auto) 4.4, Lymphocytes # (Auto) 1.1L, Monocytes # (Auto) 0.5, Eosinophils # (Auto) 0.2, Basophils # (Auto) 0.0, Nucleated Red Blood Cells % (auto) 0.0, Prothrombin Time 15.4H, Prothromb Time International Ratio 1.19, Anion Gap 8, Glomerular Filtration Rate 53.3, Calcium Level 8.6L CBC/BMP Laboratory Tests 09/26/20 05:59 DOLLY PALUMBO DO September 26, 2020 13:18
[2020-09-26 14:00] VITALS: BP 113/65
[2020-09-26 17:32] VITALS: BP 140/80
[2020-09-26] MEDS: QUEtiapine FUMARATE 100 MG TAB PO SCH (21:12)
[2020-09-26] MEDS: QUEtiapine FUMARATE 200 MG TAB PO SCH (21:12)
[2020-09-26] MEDS: ATORVASTATIN 20 MG TAB PO SCH (21:13)
[2020-09-26] MEDS: traZODone 50 MG TAB PO SCH (21:13)
[2020-09-26 22:00] VITALS: BP 117/57
[2020-09-27 06:00] VITALS: BP 116/57
[2020-09-27] MEDS: BUMETANIDE 1 MG TAB PO SCH ×2 (06:35→16:33)
[2020-09-27 06:57] LABS: BASO % 0.6 % (0.0-1.0); EOS # 0.2 10^3/uL (0.0-0.5); EOS % 3.4 % (0.0-3.0); HEMATOCRIT 39.3 % (42.0-52.0); HEMOGLOBIN 12.7 g/dl (13.5-17.5); LYMPH # 1.6 10^3/uL (1.5-5.0); LYMPH % 24.3 % (24.0-44.0); MEAN CORPUSCULAR HEMOGLOBIN 31.6 pg (27.0-33.0); MEAN CORPUSCULAR HGB CONC 32.3 g/dl (32.0-36.5); MEAN CORPUSCULAR VOLUME 97.8 fl (80.0-96.0); MONO # 0.6 10^3/uL (0.0-0.8); MONO % 9.6 % (2.0-8.0); NEUTROPHILS % 61.5 % (36.0-66.0); PLATELET COUNT, AUTOMATED 159 10^3/uL (150-450); RED BLOOD COUNT 4.02 10^6/uL (4.30-6.10); WHITE BLOOD COUNT 6.5 10^3/uL (4.0-10.0)
[2020-09-27 07:04] LABS: INR 1.12; PROTHROMBIN TIME 14.7 SECONDS (12.5-14.3)
[2020-09-27 07:05] LABS: CALCIUM LEVEL 8.9 MG/DL (8.8-10.2); CREATININE FOR GFR 1.63 MG/DL (0.70-1.30); GLOMERULAR FILTRATION RATE 44.8 (>42)
[2020-09-27] MEDS: SUCRALFATE SUSP 1GM/10ML UD PO SCH ×4 (07:45→21:06)
[2020-09-27] MEDS: PRAMIPEXOLE 1 MG TAB PO SCH ×2 (07:46→21:06)
[2020-09-27] MEDS: PANTOPRAZOLE 40MG TAB (PROTONIX) PO SCH (07:46)
[2020-09-27] MEDS: DIGOXIN 0.125 MG TAB PO SCH (07:46)
[2020-09-27] MEDS: SENOKOT S TAB PO SCH ×2 (07:46→21:06)
[2020-09-27] MEDS: GABAPENTIN 300 MG CAP PO SCH ×2 (07:47→21:06)
[2020-09-27] MEDS ORDERED: MOM 30ML SUSPENSION UDC PO PRN (10:25)
--- NOTE | 2020-09-27 10:30 | IPNPDOC ---
Text Note Date of Service The patient was seen on 09/27/20. NOTE Subjective: Patient is a 70-year-old male from [facility] with a PMHx of CAD s/p CABG, A. fib (on Xarelto), CVA w/ residual R sided weakens / expressive aphasia who presented to the ER lower abdominal pain and dark colored stool in the emergency room, patient was found to have heme positive stool and was admitted to the hospitalist service for further evaluation and treatment. Patient was seen and examined at the bedside. Patient denies any chest pain, shortness breath or palpitations. He denies any further abdominal pain. Does report constipation and has not had a bowel movement since he has arrived. Patient does have difficulty expressing himself but can answer yes no questions appropriately. Objective: Vitals (See below) General: Lying in bed, appears comfortable, AAOx3 HEENT: NC, AT CVS: RRR, +S1S2 Lungs: Fair air entry b/l, -w/r/r Abdomen: Soft, ND, NT Extremities: RLE with swelling, - Calf tenderness Imaging: CT abdomen / pelvis 09/23: No acute abdominal or pelvic abnormality seen. Assessment and plan: Possible GIB in the setting coagulopathy induced by Xarelto - History of duodenal ulcer and duodenal polyp - Patient is not had any further bowel movements - Hemodynamically stable - Hemoglobin has remained stable - c/w PPI and sucralfate - Discussed risks and benefits of starting antibiotic regulation at this point patient does not want to start anticoagulation; verbalized understanding of risks including higher risk of stroke Chronic Systolic CHF - EF of 25% to 30% with wall motion abnormalities due to ischemic cardiomyopathy - c/w Fluid restriction - c/w Bumetanide A. fib - s/p Dronedarone and diltiazem due to low EF and chronic Afib - c/w Digoxin - Carvedilol on hold - Full anticoagulation with Xarelto has been on hold CAD s/p CABG - c/w Atorvastatin - Carvedilol on hold Chronic DVT bilateral - s/p IVC filter - Patient does not want to start anticoagulation at this time (see above) CVA with residual R sided hemiparesis and Expressive aphasia and chronic neuropathic pain and chronic right leg swelling - c/w Atorvastatin, gabapentin Depression - c/w Seroquel and Trazodone DVT prophylaxis - c/w TEDs/Sequentials Disposition: - Patient has requested not to start Xarelto risks and benefits discussed. Patient has verbalized understanding - Anticipate discharge within the next 24 hours Milagro GARCIA, I+O Milagro GARCIA I+O Laboratory Tests 09/27/20 06:16 Vital Signs Date Time Temp Pulse Resp B/P (MAP) Pulse Ox O2 Delivery O2 Flow Rate FiO2 09/27/20 07:46 82 09/27/20 06:00 98.4 20 116/57 (76) 98 Room Air I&O- Last 24 Hours up to 6 AM 09/27/20 06:00 Intake Total 1610 ml Output Total 2600 ml Balance -990 ml NATHALY GAR MD September 27, 2020 10:30
[2020-09-27 14:00] VITALS: BP 115/60
[2020-09-27] MEDS: ATORVASTATIN 20 MG TAB PO SCH (21:06)
[2020-09-27] MEDS: traZODone 50 MG TAB PO SCH (21:06)
[2020-09-27] MEDS: QUEtiapine FUMARATE 200 MG TAB PO SCH (21:06)
[2020-09-27] MEDS: QUEtiapine FUMARATE 100 MG TAB PO SCH (21:06)
[2020-09-27 22:00] VITALS: BP 137/73
[2020-09-28] MEDS: LACTULOSE 20 GM/30 ML SYRUP UD PO SCH ×3 (06:00→17:31)
[2020-09-28] MEDS: BUMETANIDE 1 MG TAB PO SCH ×2 (06:04→17:31)
[2020-09-28 06:14] LABS: BASO % 0.5 % (0.0-1.0); EOS # 0.2 10^3/uL (0.0-0.5); EOS % 3.6 % (0.0-3.0); HEMATOCRIT 38.7 % (42.0-52.0); HEMOGLOBIN 12.7 g/dl (13.5-17.5); LYMPH # 1.8 10^3/uL (1.5-5.0); LYMPH % 29.6 % (24.0-44.0); MEAN CORPUSCULAR HEMOGLOBIN 31.7 pg (27.0-33.0); MEAN CORPUSCULAR HGB CONC 32.8 g/dl (32.0-36.5); MEAN CORPUSCULAR VOLUME 96.5 fl (80.0-96.0); MONO # 0.6 10^3/uL (0.0-0.8); MONO % 10.6 % (2.0-8.0); NEUTROPHILS # 3.3 10^3/uL (1.5-8.5); NEUTROPHILS % 55.2 % (36.0-66.0); PLATELET COUNT, AUTOMATED 154 10^3/uL (150-450); RED BLOOD COUNT 4.01 10^6/uL (4.30-6.10)
[2020-09-28 06:22] LABS: INR 1.07; PROTHROMBIN TIME 14.1 SECONDS (12.5-14.3)
[2020-09-28 06:27] LABS: CALCIUM LEVEL 9.1 MG/DL (8.8-10.2); CREATININE FOR GFR 1.38 MG/DL (0.70-1.30); GLOMERULAR FILTRATION RATE 54.2 (>42); POTASSIUM SERUM 3.9 MEQ/L (3.5-5.1)
[2020-09-28 06:55] VITALS: BP 111/55
[2020-09-28] MEDS ORDERED: FLEET ENEMA PR PRN (07:05)
--- NOTE | 2020-09-28 09:05 | IPNPDOC ---
Text Note Date of Service The patient was seen on 09/28/20. NOTE Subjective: Patient is a 70-year-old male from [place] [facility] with a PMHx of CAD s/p CABG, A. fib (on Xarelto), CVA w/ residual R sided weakens / expressive aphasia who presented to the ER lower abdominal pain and dark colored stool in the emergency room, patient was found to have heme positive stool and was admitted to the hospitalist service for further evaluation and treatment. Patient was seen and examined at the bedside. Patient is reporting some abdominal discomfort, has reported this has not yet had a bowel movement. Denies any nausea, vomiting, chest pain, shortness breath, palpitations, has not had any further blood in his stools. Objective: Vitals (See below) General: Patient is sitting up in bed, appears to be comfortable, is awake and alert HEENT: NC, AT CVS: +S1S2 Lungs: Fair air entry b/l, no visual wheezing, rhonchi or rales Abdomen: Soft, nondistended, no significant tenderness Extremities: RLE with swelling - unchanged, LLE without edema, - Calf tenderness Imaging: CT abdomen / pelvis 09/23: No acute abdominal or pelvic abnormality seen. Assessment and plan: Possible GIB in the setting coagulopathy induced by Xarelto - History of duodenal ulcer and duodenal polyp - Patient is not had any further bowel movements - Hemodynamically stable - Hemoglobin has remained stable - c/w PPI and sucralfate - Discussed risks and benefits of starting antibiotic regulation at this point patient does not want to start anticoagulation; verbalized understanding of risks including higher risk of stroke Abdominal discomfort - possibly 2/2 constipation - Patient is reported that he has not yet had a bowel movement since Flores arrived - Will adjust patient's bowel regimen - Patient does not want to try an enema at this time Chronic Systolic CHF - EF of 25% to 30% with wall motion abnormalities due to ischemic cardiomyopathy - c/w Fluid restriction - c/w Bumetanide A. fib - s/p Dronedarone and diltiazem due to low EF and chronic Afib - c/w Digoxin - Carvedilol on hold - Full anticoagulation with Xarelto has been on hold - Cardiology on consultation; appreciate their input CAD s/p CABG - c/w Atorvastatin - Carvedilol on hold Chronic DVT bilateral - s/p IVC filter - Patient does not want to start anticoagulation at this time (see above) CVA with residual R sided hemiparesis and Expressive aphasia and chronic neuropathic pain and chronic right leg swelling - c/w Atorvastatin, Gabapentin Depression - c/w Seroquel and Trazodone DVT prophylaxis - c/w TEDs/Sequentials Disposition: - Patient has requested not to start Xarelto risks and benefits discussed. Patient has verbalized understanding - Awaiting bowel movement; possibly DC tomorrow VS,Davidbone, I+O VS, Davidbone, I+O Laboratory Tests 09/28/20 05:45 Vital Signs Date Time Temp Pulse Resp B/P (MAP) Pulse Ox O2 Delivery O2 Flow Rate FiO2 09/28/20 06:55 97.8 88 18 111/55 (73) 95 09/27/20 22:00 Room Air I&O- Last 24 Hours up to 6 AM 09/28/20 05:59 Intake Total 1160 ml Output Total 700 ml Balance 460 ml NATHALY GAR MD September 28, 2020 09:05
[2020-09-28] MEDS: GABAPENTIN 300 MG CAP PO SCH ×2 (09:44→20:49)
[2020-09-28] MEDS: SUCRALFATE SUSP 1GM/10ML UD PO SCH ×4 (09:45→20:48)
[2020-09-28] MEDS: DIGOXIN 0.125 MG TAB PO SCH (09:45)
[2020-09-28] MEDS: PRAMIPEXOLE 1 MG TAB PO SCH ×2 (09:45→20:48)
[2020-09-28] MEDS: PANTOPRAZOLE 40MG TAB (PROTONIX) PO SCH (09:45)
[2020-09-28] MEDS: SENOKOT S TAB PO SCH ×2 (09:45→20:48)
[2020-09-28 14:00] VITALS: BP 109/60
[2020-09-28] MEDS: QUEtiapine FUMARATE 200 MG TAB PO SCH (20:48)
[2020-09-28] MEDS: QUEtiapine FUMARATE 100 MG TAB PO SCH (20:48)
[2020-09-28] MEDS: ATORVASTATIN 20 MG TAB PO SCH (20:48)
[2020-09-28] MEDS: traZODone 50 MG TAB PO SCH (20:48)
[2020-09-28 22:00] VITALS: BP 124/70
[2020-09-28] MEDS ORDERED: ONDANSETRON 4MG/2ML VIAL IV PRN (23:30)
[2020-09-28] MEDS ORDERED: ONDANSETRON 4 MG TAB PO PRN (23:35)
[2020-09-29] MEDS: LACTULOSE 20 GM/30 ML SYRUP UD PO SCH ×3 (00:26→12:11)
[2020-09-29 06:00] VITALS: BP 120/62
[2020-09-29] MEDS: BUMETANIDE 1 MG TAB PO SCH ×2 (06:03→16:54)
[2020-09-29 06:07] LABS: BASO % 0.6 % (0.0-1.0); EOS # 0.2 10^3/uL (0.0-0.5); EOS % 2.8 % (0.0-3.0); HEMOGLOBIN 13.6 g/dl (13.5-17.5); LYMPH # 1.9 10^3/uL (1.5-5.0); LYMPH % 25.9 % (24.0-44.0); MEAN CORPUSCULAR HEMOGLOBIN 31.6 pg (27.0-33.0); MEAN CORPUSCULAR HGB CONC 32.4 g/dl (32.0-36.5); MEAN CORPUSCULAR VOLUME 97.7 fl (80.0-96.0); MONO # 0.7 10^3/uL (0.0-0.8); MONO % 9.9 % (2.0-8.0); NEUTROPHILS # 4.3 10^3/uL (1.5-8.5); NEUTROPHILS % 60.4 % (36.0-66.0); PLATELET COUNT, AUTOMATED 167 10^3/uL (150-450); WHITE BLOOD COUNT 7.1 10^3/uL (4.0-10.0)
[2020-09-29 06:29] LABS: CALCIUM LEVEL 9.3 MG/DL (8.8-10.2); CREATININE FOR GFR 1.37 MG/DL (0.70-1.30); GLOMERULAR FILTRATION RATE 54.7 (>42); INR 1.06; POTASSIUM SERUM 4.1 MEQ/L (3.5-5.1)
[2020-09-29] MEDS: GABAPENTIN 300 MG CAP PO SCH ×2 (08:14→22:46)
[2020-09-29] MEDS: PRAMIPEXOLE 1 MG TAB PO SCH ×2 (08:14→22:46)
[2020-09-29] MEDS: PANTOPRAZOLE 40MG TAB (PROTONIX) PO SCH (08:15)
[2020-09-29] MEDS: SUCRALFATE SUSP 1GM/10ML UD PO SCH ×4 (08:15→22:46)
[2020-09-29] MEDS: SENOKOT S TAB PO SCH (08:15)
[2020-09-29] MEDS: DIGOXIN 0.125 MG TAB PO SCH (08:15)
[2020-09-29] MEDS ORDERED: BISACODYL 10 MG SUPP PR SCH (09:00)
[2020-09-29] MEDS ORDERED: DIGO0.123 PO (09:22)
[2020-09-29] MEDS ORDERED: SUCR1ORA PO (09:22)
--- NOTE | 2020-09-29 09:34 | REP ---
INDICATION: Abdominal pain. COMPARISON: 09/23/2020 a contrast-enhanced exam TECHNIQUE: Standard helical technique without the administration of intravenous contrast FINDINGS: Curvilinear and asymmetric densities are again seen in the lung bases right greater than left unchanged from chest CT of 07/20/2020. Limited evaluation of the solid intra-abdominal organs and gallbladder show no changes from the prior exam. Limited evaluation of the pancreas, adrenal glands, and kidneys show no significant changes from the prior exam. There is no evidence of free fluid or free air. Since the last examination gas-filled mildly dilated small bowel loops have developed. There is no change in the abdominal aorta or para-regions. There is no change in the imaged osseous structures IMPRESSION: 1. Fibrotic and/or subsegmental atelectatic changes seen in the lung bases as described above. 2. Small bowel ileus is suspected. 3. Other findings as described above. <Electronically signed by David Maldonado > 09/29/20 0931
[2020-09-29 14:00] VITALS: BP 124/77
--- NOTE | 2020-09-29 14:10 | IPNPDOC ---
Text Note Date of Service The patient was seen on 09/29/20. NOTE Subjective: Patient is a 70-year-old male from [place] [facility] with a PMHx of CAD s/p CABG, A. fib (on Xarelto), CVA w/ residual R sided weakens / expressive aphasia who presented to the ER lower abdominal pain and dark colored stool in the emergency room, patient was found to have heme positive stool and was admitted to the hospitalist service for further evaluation and treatment. Patient was seen and examined at the bedside. Patient reports some nausea and abdominal discomfort. Denies any chest pain, shortness breath, palpitations. Has not experience any vomiting. Did experience a larger bowel movement yesterday that was breath. Denies any urinary discomfort. Objective: Vitals (See below) General: This morning patient was sitting up in chair, appears to be comfortable, not in any acute distress, awake and alert HEENT: NC, AT CVS: +S1S2 Lungs: No appreciated wheezing / rhonchi / rales Abdomen: Soft without any distention. Mild tenderness appreciated Extremities: Right lower extremity with chronic edema, left lower extremity without any significant edema Imaging: CT abdomen / pelvis 09/23: No acute abdominal or pelvic abnormality seen. CT abdomen / pelvis 09/29: 1. Fibrotic and/or subsegmental atelectatic changes seen in the lung bases as described above. 2. Small bowel ileus is suspected. 3. Other findings as described above. Assessment and plan: Reported GIB in the setting coagulopathy induced by Xarelto - History of duodenal ulcer and duodenal polyp - Patient is not had any further bowel movements - Hemodynamically stable - Hemoglobin has remained stable - c/w PPI and sucralfate - Discussed risks and benefits of starting anticoagulation at this point patient does not want to start anticoagulation; verbalized understanding of risks including higher risk of stroke - Again had further discussion about starting anticoagulation therapy; again has adamantly refused starting into regulation; despite discussing risks and benefits Abdominal discomfort - possibly 2/2 constipation / ileus pattern - Patient reported nausea this morning, however, had a large bowel movement yesterday evening - Will hold bowel regimen at this time - Will give suppository - Imaging noted above - Adjusted diet to clear liquids for now - Case discussed with general surgery; will adjust diet and hold PO bowel re gimen Chronic Systolic CHF - EF of 25% to 30% with wall motion abnormalities due to ischemic cardiomyopathy - c/w Fluid restriction - c/w Bumetanide A. fib - s/p Dronedarone and diltiazem due to low EF and chronic Afib - c/w Digoxin - Carvedilol on hold - Full anticoagulation with Xarelto has been on hold - Cardiology on consultation; appreciate their input CAD s/p CABG - c/w Atorvastatin - Carvedilol on hold Chronic DVT bilateral - s/p IVC filter - Patient does not want to start anticoagulation at this time (see above) CVA with residual R sided hemiparesis and Expressive aphasia and chronic neuropathic pain and chronic right leg swelling - c/w Atorvastatin, Gabapentin Depression - c/w Seroquel and Trazodone DVT prophylaxis - c/w TEDs/Sequentials Disposition: - Patient has requested not to start Xarelto risks and benefits discussed. Patient has verbalized understanding - Patient is open to receiving additional rehabilitation - Will change to ALC status VS,Davidee, I+O VS, Davidee, I+O Laboratory Tests 09/29/20 05:44 Vital Signs Date Time Temp Pulse Resp B/P (MAP) Pulse Ox O2 Delivery O2 Flow Rate FiO2 09/29/20 08:15 93 09/29/20 06:00 97.5 17 120/62 (81) 95 Room Air I&O- Last 24 Hours up to 6 AM 09/29/20 06:00 Intake Total 780 ml Output Total 2250 ml Balance -1470 ml NATHALY GAR MD September 29, 2020 14:10
[2020-09-29 16:54] VITALS: BP 98/61
[2020-09-29] MEDS ORDERED: hydrOXYzine 10 MG TAB PO PRN (17:10)
[2020-09-29 18:30] VITALS: BP 105/63
[2020-09-29 22:00] VITALS: BP 104/58
[2020-09-29] MEDS: QUEtiapine FUMARATE 100 MG TAB PO SCH (22:45)
[2020-09-29] MEDS: ATORVASTATIN 20 MG TAB PO SCH (22:46)
[2020-09-29] MEDS: traZODone 50 MG TAB PO SCH (22:46)
[2020-09-29] MEDS: QUEtiapine FUMARATE 200 MG TAB PO SCH (22:46)
[2020-09-30 06:00] VITALS: BP 119/63
[2020-09-30 06:41] LABS: BASO % 0.6 % (0.0-1.0); EOS # 0.2 10^3/uL (0.0-0.5); EOS % 3.1 % (0.0-3.0); HEMATOCRIT 39.9 % (42.0-52.0); HEMOGLOBIN 12.9 g/dl (13.5-17.5); LYMPH # 1.7 10^3/uL (1.5-5.0); LYMPH % 24.3 % (24.0-44.0); MEAN CORPUSCULAR HEMOGLOBIN 31.5 pg (27.0-33.0); MEAN CORPUSCULAR HGB CONC 32.3 g/dl (32.0-36.5); MEAN CORPUSCULAR VOLUME 97.6 fl (80.0-96.0); MONO # 0.7 10^3/uL (0.0-0.8); MONO % 9.8 % (2.0-8.0); NEUTROPHILS # 4.4 10^3/uL (1.5-8.5); NEUTROPHILS % 61.8 % (36.0-66.0); PLATELET COUNT, AUTOMATED 153 10^3/uL (150-450); RED BLOOD COUNT 4.09 10^6/uL (4.30-6.10); WHITE BLOOD COUNT 7.1 10^3/uL (4.0-10.0)
[2020-09-30 06:48] VITALS: BP 126/63
[2020-09-30 06:48] LABS: INR 1.06
[2020-09-30] MEDS: BUMETANIDE 1 MG TAB PO SCH (06:49)
[2020-09-30 06:59] LABS: CREATININE FOR GFR 1.35 MG/DL (0.70-1.30); GLOMERULAR FILTRATION RATE 55.6 (>42)
[2020-09-30 07:00] LABS: CALCIUM LEVEL 9.5 MG/DL (8.8-10.2)
[2020-09-30] MEDS: LACTULOSE 20 GM/30 ML SYRUP UD PO SCH ×2 (07:54→12:24)
[2020-09-30] MEDS: SUCRALFATE SUSP 1GM/10ML UD PO SCH ×2 (07:54→12:24)
[2020-09-30] MEDS: DIGOXIN 0.125 MG TAB PO SCH (09:33)
[2020-09-30] MEDS: GABAPENTIN 300 MG CAP PO SCH (09:33)
[2020-09-30] MEDS: PRAMIPEXOLE 1 MG TAB PO SCH (09:33)
[2020-09-30] MEDS: PANTOPRAZOLE 40MG TAB (PROTONIX) PO SCH (09:33)
[2020-09-30] MEDS ORDERED: LACT20EL PO (12:23)
[2020-09-30] MEDS ORDERED: DULC10SU2 PR (12:23)
--- NOTE | 2020-09-30 12:25 | DS.PDOC ---
Discharge Summary General Date of Admission Sep 25, 2020 at 11:26 Date of Discharge 09/30/2020 Discharge Summary PROCEDURES PERFORMED DURING STAY: [None]. ADMITTING DIAGNOSES / DISCHARGE DIAGNOSES: Reported GIB in the setting coagulopathy induced by Xarelto s/p Abdominal discomfort - possibly 2/2 constipation / ileus pattern Chronic Systolic CHF A. 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 HISTORY OF PRESENT ILLNESS: Patient is a 70-year-old [place] [facility] with a PMHx of CAD s/p CABG, A. fib (on Xarelto), CVA w/ residual R sided weakens / expressive aphasia who presented to the ER lower abdominal pain and dark colored stool in the emergency room, patient was found to have heme positive stool and was admitted to the hospitalist service for further evaluation and treatment. HOSPITAL COURSE: Reported GIB in the setting coagulopathy induced by Xarelto - History of duodenal ulcer and duodenal polyp - Patient is not had any further bowel movements - Hemodynamically stable - Hemoglobin has remained stable - Occult negative - c/w PPI and sucralfate - Discussed risks and benefits of starting anticoagulation; at this point patient does not want to start anticoagulation; verbalized understanding of risks including higher risk of stroke - Multiple conversation about starting anticoagulation therapy; again has adamantly refused starting into anticoagulation despite discussing risks and benefits - Will have outpatient follow-up with gastroenterology and cardiology within the next 7 days s/p Abdominal discomfort - possibly 2/2 constipation / ileus pattern - Patient has not experienced any further nausea and has had 2 large bowel movements over the last 2 days - s/p Suppository - c/w bowel regimen as ordered - Imaging noted above - Diet has been advanced - Case was discussed with general surgery - Will have outpatient follow-up with gastroenterology within the next 7 days Chronic Systolic CHF - No signs of fluid overload. Currently - EF of 25% to 30% with wall motion abnormalities due to ischemic cardiomyopathy - c/w Fluid restriction - c/w Bumetanide A. fib - Currently patient appears to be rate controlled throughout this hospitalization - s/p Dronedarone and diltiazem due to low EF and chronic Afib - c/w Digoxin - Carvedilol will be discontinued - Full anticoagulation with Xarelto has been on hold (see above) - Cardiology on consultation; appreciate their input CAD s/p CABG - c/w Atorvastatin - Carvedilol will be discontinued Chronic DVT bilateral - s/p IVC filter - Patient does not want to start anticoagulation at this time (see above) CVA with residual R sided hemiparesis and Expressive aphasia and chronic neuropathic pain and chronic right leg swelling - c/w Atorvastatin, Gabapentin Depression - c/w Seroquel and Trazodone DVT prophylaxis - c/w TEDs/Sequentials DISCHARGE MEDICATIONS: Please see below. ALLERGIES: Please see below. PHYSICAL EXAMINATION ON DISCHARGE: Vitals (See below) General: Currently patient appears to be comfortable sitting up in bed, not in any acute distress, is awake, alert HEENT: NC, AT CVS: +S1S2 Lungs: Air entry is fair bilaterally without any evidence of wheezing, crackles or rhonchi on auscultation Abdomen: Abdomen is soft, nondistended, no significant tenderness Extremities: Right lower extremity with chronic edema changes noted LABORATORY DATA: Please see below. IMAGING: CT abdomen / pelvis 09/23: No acute abdominal or pelvic abnormality seen. CT abdomen / pelvis 09/29: 1. Fibrotic and/or subsegmental atelectatic changes seen in the lung bases as described above. 2. Small bowel ileus is suspected. 3. Other findings as described above. ACTIVITY: [As tolerated]. DISCHARGE PLAN: Patient has been advised to follow-up with primary care provider, cardiology and gastroenterology within the next 7 days Patient has been advised to remain compliant with treatment plan and medications Has been advised to return to the emergency room if he experiences any problems DISPOSITION: [facility] DISCHARGE CONDITION: [Stable]. TIME SPENT ON DISCHARGE: 35 minutes. Vital Signs/I&Os Vital Signs Date Time Temp Pulse Resp B/P (MAP) Pulse Ox O2 Delivery O2 Flow Rate FiO2 09/30/20 09:33 82 09/30/20 06:48 126/63 (84) 09/30/20 06:00 97.5 17 95 Room Air I&O- Last 24 Hours up to 6 AM 09/30/20 06:00 Intake Total 605 ml Output Total 1600 ml Balance -995 ml Laboratory Data Labs 24H Laboratory Tests 2 09/30/20 05:54: Immature Granulocyte % (Auto) 0.4, Neutrophils (%) (Auto) 61.8, Lymphocytes (%) (Auto) 24.3, Monocytes (%) (Auto) 9.8H, Eosinophils (%) (Auto) 3.1H, Basophils (%) (Auto) 0.6, Neutrophils # (Auto) 4.4, Lymphocytes # (Auto) 1.7, Monocytes # (Auto) 0.7, Eosinophils # (Auto) 0.2, Basophils # (Auto) 0.0, Nucleated Red Blood Cells % (auto) 0.0, Prothrombin Time 14.0, Prothromb Time International Ratio 1.06, Anion Gap 5L, Glomerular Filtration Rate 55.6, Calcium Level 9.5 CBC/BMP Laboratory Tests 09/30/20 05:54 Microbiology Microbiology 09/29/20 Stool Occult Blood (RAJENDRA) - Final, Complete 09/28/20 Stool Occult Blood (RAJENDRA) - Final, Complete Discharge Medications Scheduled Atorvastatin Calcium (Atorvastatin Calcium) 20 Mg Tablet, 20 MG PO QHS, (Reported) 1999. Bumetanide (Bumetanide) 1 Mg Tablet, 1 MG PO Q12H, (Reported) 1999 Digoxin (Digoxin) 125 Mcg Tablet, 0.125 MG PO DAILY Dronedarone (Multaq) 400 Mg Tablet, 400 MG PO Q12H, (Reported) 1999 Gabapentin (Gabapentin) 600 Mg Tablet, 600 MG PO Q12H, (Reported) 1999 Pantoprazole Sodium (Pantoprazole Sodium) 40 Mg Tablet.dr, 40 MG PO DAILY, (Reported) Pramipexole Di-HCl (Pramipexole Dihydrochloride) 1 Mg Tablet, 1 MG PO BID, (Reported) Quetiapine Fumarate (Seroquel) 200 Mg Tablet, 200 MG PO QHS, (Reported) 1999 Quetiapine Fumarate (Seroquel) 100 Mg Tablet, 100 MG PO QHS, (Reported) Rivaroxaban (Xarelto) 20 Mg Tablet, 20 MG PO DAILY, (Reported) Sucralfate (Sucralfate) 1 Gm/10 Ml Oral.susp, 1 GM PO ACHS Trazodone HCl (Trazodone HCl) 50 Mg Tablet, 50 MG PO QHS, (Reported) Scheduled PRN Sennosides (Senna) 8.6 Mg Tablet, 8.6 MG PO DAILY PRN for CONSTIPATION, (Reported) Allergies Coded Allergies: bupropion (Verified Allergy, Unknown, 07/10/19) divalproex sodium (Verified Allergy, Unknown, 07/10/19) paroxetine (Verified Allergy, Unknown, 07/10/19) simvastatin (Verified Allergy, Unknown, 07/10/19) NATHALY GAR MD September 30, 2020 12:25
== END 2020-09-30 13:15 | DRG 813 ==
LOC: M ED 12:23 → EDBD 12:23 → M ED INP 12:24 → ENRESERV 20:01 → M MSPAV 22:50 → OBSVTOIN 09-25 11:26
PROVIDERS: ADMIT Internal Medicine Nephrology; ATTEND Internal Medicine
DX: D68.32 Hemorrhagic disorder due to extrinsic circulating 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s (principal); I50.22 Chronic systolic (congestive) heart failure; I48.20 Chronic atrial fibrillation, unspecified; K92.2 Gastrointestinal hemorrhage, unspecified; K56.7 Ileus, unspecified; I69.351 Hemiplegia and hemiparesis following cerebral infarction affecting right dominant side; K59.00 Constipation, unspecified; I25.10 Atherosclerotic heart disease of native coronary artery without angina pectoris; I69.320 Aphasia following cerebral infarction; F32.9 Major depressive disorder, single episode, unspecified; Z86.718 Personal history of other venous thrombosis and embolism; Z79.899 Other long term (current) drug therapy; Z88.8 Allergy status to other drugs, medicaments and biological substances; Z79.01 Long term (current) use of 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s; F41.9 Anxiety disorder, unspecified

== ENCOUNTER → 2020-10-01 | Outpatient (REF) ==
[~2020-10-01] MED LIST changes: +BUME1TAB3 PO; +CARD40TA PO; +CORE3.12 PO; +DIGO0.123 PO; +DRON400T PO; +DULC10SU2 PR; +GABA600T4 PO; +LACT20EL PO; +SENN-80 PO; +SERO1TAB PO; +SERO200T PO; +SUCR1ORA PO; +TRAZ-252 PO
[2020-10-01 10:00] LABS: VITAMIN B12 LEVEL 366 PG/ML (247-911)
== END ==
LOC: SKLAB2 11:28
DX: F03.90 Unspecified dementia, unspecified severity, without behavioral disturbance, psychotic disturbance, mood disturbance, and anxiety (principal)

== ENCOUNTER → 2020-10-06 | Outpatient (REF) ==
[2020-10-06 13:12] LABS: HEMATOCRIT 39.1 % (42.0-52.0); HEMOGLOBIN 12.5 g/dl (13.5-17.5); MEAN CORPUSCULAR HEMOGLOBIN 31.3 pg (27.0-33.0); PLATELET COUNT, AUTOMATED 204 10^3/uL (150-450); RED BLOOD COUNT 3.99 10^6/uL (4.30-6.10)
[2020-10-06 13:24] LABS: CREATININE FOR GFR 1.5 MG/DL (0.70-1.30); GLOMERULAR FILTRATION RATE 49.3 (>42); MAGNESIUM LEVEL 2.3 MG/DL (1.8-2.4); POTASSIUM SERUM 4.2 MEQ/L (3.5-5.1)
== END ==
LOC: SKLAB2 11:28
DX: F03.90 Unspecified dementia, unspecified severity, without behavioral disturbance, psychotic disturbance, mood disturbance, and anxiety (principal)

== ENCOUNTER → 2020-10-13 | Outpatient (REF) ==
[2020-10-13 10:50] LABS: CALCIUM LEVEL 8.6 MG/DL (8.8-10.2); CREATININE FOR GFR 1.44 MG/DL (0.70-1.30); GLOMERULAR FILTRATION RATE 51.6 (>42)
== END ==
LOC: SKLAB2 08:15
DX: I50.9 Heart failure, unspecified (principal)

== ENCOUNTER → 2020-10-16 | Outpatient (REF) ==
[2020-10-16 11:33] LABS: CALCIUM LEVEL 8.2 MG/DL (8.8-10.2); CREATININE FOR GFR 1.44 MG/DL (0.70-1.30); GLOMERULAR FILTRATION RATE 51.6 (>42); POTASSIUM SERUM 3.7 MEQ/L (3.5-5.1)
== END ==
LOC: SKLAB2 08:12
DX: R63.5 Abnormal weight gain (principal)

== ENCOUNTER → 2020-10-28 | Outpatient (REF) ==
[2020-10-28 10:26] LABS: CREATININE FOR GFR 2.61 MG/DL (0.70-1.30); POTASSIUM SERUM 4.2 MEQ/L (3.5-5.1)
== END ==
LOC: SKLAB3 08:16
DX: I50.9 Heart failure, unspecified (principal); Z79.899 Other long term (current) drug therapy

== ENCOUNTER → 2020-10-29 | Outpatient (REF) ==
[2020-10-29 09:48] LABS: CALCIUM LEVEL 8.9 MG/DL (8.8-10.2); CREATININE FOR GFR 2.59 MG/DL (0.70-1.30); GLOMERULAR FILTRATION RATE 26.2 (>42); POTASSIUM SERUM 4.3 MEQ/L (3.5-5.1)
== END ==
LOC: SKLAB3 07:00
DX: R60.9 Edema, unspecified (principal)

== ENCOUNTER → 2020-11-05 | Outpatient (REF) ==
[2020-11-05 11:47] LABS: CALCIUM LEVEL 8.9 MG/DL (8.8-10.2); CREATININE FOR GFR 1.86 MG/DL (0.70-1.30); GLOMERULAR FILTRATION RATE 38.4 (>42); POTASSIUM SERUM 4.1 MEQ/L (3.5-5.1)
== END ==
LOC: SKLAB3 09:25
DX: I50.9 Heart failure, unspecified (principal)

== ENCOUNTER → 2020-11-17 | Outpatient (REF) ==
[2020-11-17 11:45] LABS: ALBUMIN 3.7 GM/DL (3.2-5.2); CALCIUM LEVEL 8.5 MG/DL (8.8-10.2); CREATININE FOR GFR 1.98 MG/DL (0.70-1.30); GLOMERULAR FILTRATION RATE 35.8 (>42); MAGNESIUM LEVEL 2.1 MG/DL (1.8-2.4)
== END ==
LOC: SKLAB3 07:00
DX: I11.0 Hypertensive heart disease with heart failure (principal); I50.9 Heart failure, unspecified

== ENCOUNTER → 2020-11-26 | Outpatient (REF) ==
[2020-11-26 09:49] LABS: HEMATOCRIT 34.5 % (42.0-52.0); HEMOGLOBIN 11.3 g/dl (13.5-17.5); MEAN CORPUSCULAR HEMOGLOBIN 31.9 pg (27.0-33.0); MEAN CORPUSCULAR HGB CONC 32.8 g/dl (32.0-36.5); MEAN CORPUSCULAR VOLUME 97.5 fl (80.0-96.0); PLATELET COUNT, AUTOMATED 131 10^3/uL (150-450); RED BLOOD COUNT 3.54 10^6/uL (4.30-6.10); WHITE BLOOD COUNT 4.3 10^3/uL (4.0-10.0)
[2020-11-26 10:22] LABS: ALBUMIN 3.5 GM/DL (3.2-5.2); BILIRUBIN,TOTAL 0.5 MG/DL (0.2-1.0); CALCIUM LEVEL 9.1 MG/DL (8.8-10.2); CREATININE FOR GFR 1.82 MG/DL (0.70-1.30); GLOMERULAR FILTRATION RATE 39.4 (>42); POTASSIUM SERUM 3.9 MEQ/L (3.5-5.1); TOTAL PROTEIN 7.1 GM/DL (6.4-8.2)
== END ==
LOC: SKLAB3 07:00
DX: K59.00 Constipation, unspecified (principal); R10.9 Unspecified abdominal pain

== ENCOUNTER → 2020-12-01 | Outpatient (CLI) | payer MEDICARE, MEDICAID | LOC: M RAD 16:04 | DX: J98.6 Disorders of diaphragm (principal); Z53.9 Procedure and treatment not carried out, unspecified reason ==

== ENCOUNTER → 2020-12-01 | Outpatient (REF) | payer MEDICARE, MEDICAID ==
[~2020-12-01] MED LIST changes: +QUET1TAB17 PO; -QUET25TA3 PO; -QUET50TA3 PO; +QUET50TA4 PO
[2020-12-01 11:44] LABS: CALCIUM LEVEL 9.6 MG/DL (8.8-10.2); CREATININE FOR GFR 1.85 MG/DL (0.70-1.30); GLOMERULAR FILTRATION RATE 38.7 (>42); POTASSIUM SERUM 3.8 MEQ/L (3.5-5.1)
--- NOTE | 2020-12-01 16:36 | REP ---
INDICATION: CHF DO EARLY AM COMPARISON: 07/20/2020 TECHNIQUE: PA and lateral. FINDINGS: Chronic elevation to the right hemidiaphragm is appreciated and superimposed elements of right lower lobe atelectasis are suggested. The remainder of the aerated lung mccarthy are clear. Mediastinum and cardiac silhouette stable with evidence for prior sternotomy and CABG as well as single lead pacemaker. Skeletal structures intact. IMPRESSION: Chronic elevation to the right hemidiaphragm with associated pleuroparenchymal changes. Subtle superimposed right basilar atelectasis suspected. <Electronically signed by Sanchez Serrano > 12/01/20 [id number]
== END ==
LOC: SKLAB3 07:00
DX: I50.9 Heart failure, unspecified (principal); J98.6 Disorders of diaphragm

== ENCOUNTER → 2020-12-14 | Outpatient (REF) ==
[~2020-12-14] MED LIST changes: -QUET1TAB17 PO; +QUET25TA3 PO; +QUET50TA3 PO; -QUET50TA4 PO
== END ==
LOC: SKLAB3 07:00
DX: I50.9 Heart failure, unspecified (principal)

== ENCOUNTER → 2020-12-31 | Outpatient (REF) | payer MEDICARE, MEDICAID ==
[~2020-12-31] MED LIST changes: +QUET1TAB17 PO; -QUET25TA3 PO; -QUET50TA3 PO; +QUET50TA4 PO
== END ==
LOC: SKLAB3 07:00
DX: I50.9 Heart failure, unspecified (principal); Z53.8 Procedure and treatment not carried out for other reasons

== ENCOUNTER → 2021-01-18 | Outpatient (REF) | payer MEDICARE, MEDICAID ==
--- NOTE | 2021-01-18 10:24 | REP ---
INDICATION: SOB COMPARISON: 12/01/2020 TECHNIQUE: Portable AP view of the chest FINDINGS: Examination is significantly limited by technique and poor inspiratory effort. There is chronic elevation to the right hemidiaphragm. May represent acute on chronic change and correlation is required. Lower lobe opacities no definite effusion. No pneumothorax.. IMPRESSION: Significantly limited examination as described above. Chronic bibasilar changes. Superimposed acute process cannot be excluded. <Electronically signed by Sanchez Serrano > 01/18/21 1020
[2021-01-18 10:37] LABS: HEMATOCRIT 36.2 % (42.0-52.0); HEMOGLOBIN 11.9 g/dl (13.5-17.5); MEAN CORPUSCULAR HEMOGLOBIN 32.2 pg (27.0-33.0); MEAN CORPUSCULAR HGB CONC 32.9 g/dl (32.0-36.5); MEAN CORPUSCULAR VOLUME 97.8 fl (80.0-96.0); PLATELET COUNT, AUTOMATED 158 10^3/uL (150-450); WHITE BLOOD COUNT 4.6 10^3/uL (4.0-10.0)
[2021-01-18 11:10] LABS: ALBUMIN 3.6 GM/DL (3.2-5.2); BLOOD UREA NITROGEN 31 MG/DL (7-18); CALCIUM LEVEL 8.7 MG/DL (8.8-10.2); CARBON DIOXIDE LEVEL 26 MEQ/L (21-32); CHLORIDE LEVEL 107 MEQ/L (98-107); CREATININE FOR GFR 1.89 MG/DL (0.70-1.30); GLOMERULAR FILTRATION RATE 37.7 (>42); GLUCOSE, FASTING 111 MG/DL (70-100); MAGNESIUM LEVEL 2.2 MG/DL (1.8-2.4); NT-PRO BNP 783 PG/ML (<125); PHOSPHORUS LEVEL 3.5 MG/DL (2.5-4.9); POTASSIUM SERUM 3.9 MEQ/L (3.5-5.1); SODIUM LEVEL 140 MEQ/L (136-145); TROPONIN I < 0.02 NG/ML (< 0.10)
--- NOTE | 2021-01-18 20:33 | ECGEPIP ---
[facility] Test Date: 2021-01-18 Pat Name: ROBERTO GIL Department: Room: - Gender: Male [employer]: mayito : 1950 Requested By: Nataly Shirley Order Number: [id number] Reading MD: Kayode Zapata Measurements Intervals [place] Rate: 83 P: PA: QRS: 4 QRSD: 138 T: 111 QT: 358 QTc: 420 Interpretive Statements atrial fibrillation with aberrant conduction Suggestion of occassional ventricular pacing which was not identified by computer s so may be artifactual depending on clinical history- no available previous t tracing shows pacing Right bundle branch block Inferior infarct , age undetermined Electronically Signed on 01-18-2021 20:33:09 EDT by Kayode Zapata
== END ==
LOC: SKLAB3 09:49
DX: R06.02 Shortness of breath (principal); I50.9 Heart failure, unspecified

== ENCOUNTER → 2021-01-19 | Outpatient (REF) | payer MEDICARE, MEDICAID | LOC: SKLAB3 07:00 | PROVIDERS: ATTEND Neuromusculoskeletal Medicine & OMM | DX: I50.9 Heart failure, unspecified (principal); Z53.8 Procedure and treatment not carried out for other reasons ==

== ENCOUNTER → 2021-01-21 | Outpatient (REF) | payer MEDICARE, MEDICAID ==
[2021-01-21 14:18] LABS: CALCIUM LEVEL 8.7 MG/DL (8.8-10.2); CREATININE FOR GFR 2.01 MG/DL (0.70-1.30); GLOMERULAR FILTRATION RATE 35.1 (>42); POTASSIUM SERUM 4.1 MEQ/L (3.5-5.1)
== END ==
LOC: SKLAB3 07:00
PROVIDERS: ATTEND Neuromusculoskeletal Medicine & OMM
DX: I50.9 Heart failure, unspecified (principal)

== ENCOUNTER → 2021-02-22 | Outpatient (REF) | payer MEDICARE, MEDICAID | LOC: SKLAB3 07:00 | PROVIDERS: ATTEND Neuromusculoskeletal Medicine & OMM | DX: I50.9 Heart failure, unspecified (principal); Z53.8 Procedure and treatment not carried out for other reasons ==

== ENCOUNTER → 2021-02-24 | Outpatient (REF) | payer MEDICARE, MEDICAID ==
[2021-02-24 08:05] LABS: CALCIUM LEVEL 8.8 MG/DL (8.8-10.2); CREATININE FOR GFR 2.09 MG/DL (0.70-1.30); GLOMERULAR FILTRATION RATE 33.6 (>42); POTASSIUM SERUM 3.7 MEQ/L (3.5-5.1)
== END ==
LOC: SKLAB3 09:09
PROVIDERS: ATTEND Neuromusculoskeletal Medicine & OMM
DX: I50.9 Heart failure, unspecified (principal)

== ENCOUNTER → 2021-03-01 | Outpatient (REF) | payer MEDICARE, MEDICAID ==
[~2021-03-01] MED LIST changes: +ACET-907 PO; +ASPI-161 PO; +DULO1CAP4 PO; +ELIQ5TAB PO; +ENTR1TAB PO; +FLEEENE12 PR; +MILK400S19 PO; +ROZE8TAB16 PO; +SENN8.6T28 PO; +TORS20TA2 PO
== END ==
LOC: SKLAB3 07:00
PROVIDERS: ATTEND Neuromusculoskeletal Medicine & OMM
DX: I50.9 Heart failure, unspecified (principal)

== ENCOUNTER → 2021-03-09 | Outpatient (REF) | payer MEDICARE, MEDICAID ==
[~2021-03-09] MED LIST changes: -ACET-907 PO; -ASPI-161 PO; -DULO1CAP4 PO; -ELIQ5TAB PO; -ENTR1TAB PO; -FLEEENE12 PR; -MILK400S19 PO; -ROZE8TAB16 PO; -SENN8.6T28 PO; -TORS20TA2 PO
--- NOTE | 2021-03-09 12:45 | REP ---
INDICATION: SOB COMPARISON: None. TECHNIQUE: Portable AP view of the chest FINDINGS: Examination is limited by portable technique, underpenetration and positioning. Perihilar and lower lobe opacities are suggested. IMPRESSION: Limited. Chronic changes. Superimposed lower lobe opacities suggested <Electronically signed by Sanchez Serrano > 03/09/21 [id number]
== END ==
LOC: SKLAB3 08:34
PROVIDERS: ATTEND Neuromusculoskeletal Medicine & OMM
DX: R06.02 Shortness of breath (principal); I25.5 Ischemic cardiomyopathy

== ENCOUNTER → 2021-03-16 | Outpatient (REF) | payer MEDICARE, MEDICAID ==
[2021-03-16 16:03] LABS: ALBUMIN 3.2 GM/DL (3.2-5.2); CALCIUM LEVEL 8.7 MG/DL (8.8-10.2); CREATININE FOR GFR 3.54 MG/DL (0.70-1.30); GLOMERULAR FILTRATION RATE 18.3 (>42); PHOSPHORUS LEVEL 2.2 MG/DL (2.5-4.9); POTASSIUM SERUM 4.2 MEQ/L (3.5-5.1)
== END ==
LOC: SKLAB3 07:16
PROVIDERS: ATTEND Neuromusculoskeletal Medicine & OMM
DX: N18.9 Chronic kidney disease, unspecified (principal); Z20.822 Contact with and (suspected) exposure to COVID-19
CPT/HCPCS: 36415; 80069; U0002

== ENCOUNTER → 2021-03-18 | Outpatient (REF) | payer MEDICARE, MEDICAID | LOC: SKLAB3 06:50 | PROVIDERS: ATTEND Neuromusculoskeletal Medicine & OMM | DX: I50.9 Heart failure, unspecified (principal); Z53.8 Procedure and treatment not carried out for other reasons ==

== ENCOUNTER → 2021-03-18 | Outpatient (REF) | payer MEDICARE, MEDICAID | LOC: SKLAB3 08:45 | PROVIDERS: ATTEND Neuromusculoskeletal Medicine & OMM | DX: Z20.822 Contact with and (suspected) exposure to COVID-19 (principal) ==

== ENCOUNTER 2021-03-22 15:41 | Inpatient (IN) | payer MEDICARE, MEDICAID ==
[~2021-03-22] VITALS: Ht 177.8 cm; Wt 105.9 kg
[~2021-03-22 15:41] MED LIST changes: -ACET-907 PO; -ASPI-161 PO; -DULO1CAP4 PO; -ELIQ5TAB PO; -ENTR1TAB PO; -FLEEENE12 PR; -LOSA25TA13 PO; +LOSA25TA14 PO; -MILK400S19 PO; -ROZE8TAB16 PO; -SENN8.6T28 PO; -TORS20TA2 PO
--- OUTSIDE RECORDS SUMMARY | 2021-03-22 15:54 | CCD | Continuity of Care Document ---
Author Organization Unknown Address Unknown Phone Unavailable Care Team Providers Care Publicity Person Name Role Phone Nataly Burk DO AUTM [phone] Problems Active Problems Provider Date Dietary management surveillance [facility] Onset : 03/01/2021 Edema Kayode Augustin MD Onset: 11/13/2020 Chest pain Kayode Augustin MD Onset: 11/13/2020 Chronic ischemic heart disease Kayode Augustin MD Onset: 0 11/13/2020 Right bundle branch block Kayode Augustin MD Onset: 2020 Pure hypercholesterolemia Kayode Augustin MD Onset: 2020 Essential hypertension Kayode Augustin MD Onset: 1 Cardiac pacemaker in situ Kayode Augustin MD Onset: 2020 Sinus node dysfunction Kayode Augustin MD Onset: 1 History of coronary artery bypass grafting Kayode Augustin MD Onset: 11/13/2020 Multi vessel coronary artery disease Steve Mart MD Ons et: 10/12/2020 History of thromboembolism of vein Steve Mart MD Onset : 10/12/2020 Electrocardiogram abnormal Steve Mart MD Onset: 2020 Permanent atrial fibrillation Steve Mart MD Onset: Chronic combined systolic and diastolic heart failure Steve Mart MD Onset: 10/12/2020 Social History Type Date Description Comments Sex Unknown ETOH Use Does not consume alcohol Tobacco Use Start: Unknown End: Unknown Patient is a former smoker up to 1 ppd, started in 20s, quit in 60s Smoking Status Reviewed: 03/01/21 Patient is a former smoker up to 1 ppd, started in 20s, quit in 60s Exercise Type/Frequency Limited self-car e: Confined to bed/chair > 50% of waking hours Exercise Limitations Other Stroke - Ri ght side weakness Allergies and adverse reactions Active Allergies Criticality Reaction | Severity Comments Date Bupropion Unable to assess criticality 01/24/2021 Valproic Acid Unable to assess criticality 01/24/2021 Paroxetine Unable to assess criticality 01/24/2021 Simvastatin Unable to assess criticality 01/24/2021 Inactive Allergies NKDA Unable to assess criticality 11/13/2020 Medications Active Medications SIG Qnty Indications Ordering Provide r Date 8 Hour Pain Reliever 650mg Tablets ER 1 by mouth twice daily for chronic pain Karuna Burk, 02/28/2021 Quetiapine Fumarate 50mg Tablets 1 by mouth daily Nataly Burk, DO Torsemide 20mg Tablets 3 by mouth every day 90tabs I50.42 Kayode Augustin MD 12/25/2020 R60.[address] 1 by mouth every day Unknown 12/24/2020 Senna-S 8.6-50mg Tablets 2 by mouth daily Unknown 12/24/2020 Carvedilol 6.25mg Tablets 1 by mouth twice a day Unknown 12/24/2020 Entresto 24-26mg Tablets 1 tab by mouth twice a day (begin after off enalapril for 36 hours) 60tabs I50.42 Kayode Augustin MD 11/13/2020 Milk Of Magnesia Concentrate 2400mg/10ML Suspension 10ml by mouth every night at bedtime as needed Unknown 11/12/2020 Tylenol 325mg Tablets 1 tabs by mouth every 8 hours as needed Unknown 11/13/19 Dulcolax 10mg Suppository 1 per rectum as needed if no bm Unknown 11/12/2020 Enema Disposable Enema 1 rectally every day as needed Unknown 11/12/2020 Atorvastatin Calcium 20mg Tablets 1 by mouth every night at bedtime Unknown Gabapentin 600mg Tablets 1 by mouth bid Unknown 11/12/2020 Pantoprazole Sodium 40mg Tablets D R 1 by mouth every day Unknown 11/12/2020 Pramipexole Dihydrochloride 1mg Ta blets 1 by mouth bid Unknown 11/12/2020 Eliquis 5mg Tablets 1 by mouth twice a day Unknown 11/12/2020 History Medications Torsemide 20mg Tablets 2 by mouth every day I50.42 Unknown 12/24/2020 - R60.0 Xtennuq-Xpjjaxne-Lzaemwhvgir [id number]/5ML Suspension give 30 mls by mouth up to 4 times daily as needed Unknown 12/24/2020 - 01/24/2021 Metoprolol Succinate ER 50mg Tablets ER 24HR 1 by mouth every day 60tabs I50.42 Kayode Augustin MD 11/13/2020 - 12/24/2020 I48.21 I49.5 Torsemide 20mg Tablets 1 by mouth every day 30tabs I50.42 Kayode Augustin MD 11/13/2020 - 12/24/2020 R60.0 Bumex 1mg Tablets 1 by jennifer th daily I50.42 Unknown 11/12/2020 - 11/13/2020 R60.0 Carvedilol 6.25mg Tablets 1 by mouth twice a day I50.42 Unknown 11/12/2020 - I48.21 I49.5 Quetiapine Fumarate 50mg Tablets 1 by mouth twice daily Unknown 11/12/2020 - 0 01/24/2021 Enalapril Maleate 5mg Tablets 1 by mouth bid I50.42 Unknown 11/12/2020 - Trazodone HCL 50mg Tablets 1 by mouth every night at bedtime Unknown - 02/28/2021 Calcium 600 600mg Tablets 1 by mouth twice daily Unknown 11/12/2020 - Acetaminophen 650mg Suppository 1 every 4 hours as needed Unknown 11/12/2020 - Multi Vitamin Tablets daily Unknown 11/12/2020 - 01/24/2021 Immunizations Description No Information Available Vital Signs Date Vital Result Comment 03/01/2021 11:46am Home Weight 218lb Height 66 inches 5'6" Heart Rate 81 /min BP Systolic Sitting 120 mmHg LA, large cuff BP Diastolic Sitting 82 mmHg LA, large cuff 01/25/2021 12:55pm Height 66 inches 5'6" BP Systolic Sitting 106 mmHg Ra, large cuff BP Diastolic Sitting 60 mmHg Ra, large cuff Results Test Acquired Date Facility Test Result H/L Range Note BMP 02/24/2021 [facility] - not interfaced (315)- - Calcium Ser/Plasma Mass/Vol 8.8 Sodium 140 Carbon Dioxide Ser/Plasm 28 Chloride Serum/Plasma 105 Potassium 3.7 Glucose 101 83-110 Blood Urea Nitrogen 33 High 7-18 Creatinine 2.09 High 0.6-1.0 G F R 33.6 BMP 01/21/2021 [facility] - not interfaced (315)- - Calcium Ser/Plasma Mass/Vol 8.7 Sodium 139 Carbon Dioxide Ser/Plasm 29 Chloride Serum/Plasma 105 Potassium 4.1 Glucose 82 Low 83-110 Blood Urea Nitrogen 34 High 7-18 Creatinine 2.01 High 0.6-1.0 G F R 35.1 Laboratory test finding 01/21/2021 [facility] - not interf aced (315)- - NT Probnp QN Ser/Plas 786 CBC without Differential 01/18/2021 [facility] - not inter faced (315)- - White Blood Count 4.6 Low 5.0-10.0 Red Blood Count 3.70 Low 4.00-5.40 Platelets 158 Low 172-450 Hemoglobin 11.9 Hematocrit 36.2 BMP 01/18/2021 [facility] - not interfaced (315)- - Calcium Ser/Plasma Mass/Vol 8.7 Sodium 140 Carbon Dioxide Ser/Plasm 26 Chloride Serum/Plasma 107 Potassium 3.9 Glucose 111 High 83-110 Blood Urea Nitrogen 31 High 7-18 Creatinine 1.89 High 0.6-1.0 G F R 37.7 Laboratory test finding 01/18/2021 [facility] - not interf aced (315)- - NT Probnp QN Ser/Plas 783 Basic Metabolic Panel 10/06/2020 [facility] - not interfac ed (315)- - Glucose 121 High 70-100 Blood Urea Nitrogen 25 High 7-18 Creatinine 1.50 High 0.70-1.30 Sodium 139 136-145 Potassium 4.2 3.5-5.1 Chloride 106 98-107 Carbon Dioxide 29 21-32 Calcium 9.0 8.2-9.6 GFR (Calculated) 49.3 >32 Laboratory test finding 10/06/2020 [facility] - not interf aced (315)- - Magnesium Level 2.3 1.8-2.4 CBC without Differential 10/06/2020 [facility] - not inter faced (315)- - White Blood Count 6.0 4.0-10.0 Red Blood Count 3.99 Low 4.30-6.10 Platelets 204 150-450 Hemoglobin 12.5 Hematocrit 39.1 Lipid Profile/Cardiac Risk Pro 09/12/2020 [facility] Triglycerides 86 Cholesterol 124 HDL 42 LDL Cholesterol 65 Chol/HDL Ratio 3.0 Hemoglobin A1c 09/12/2020 [facility] Hemoglobin A1c 5.8 Procedures Date Code Description Status 03/01/2021 42025 Office/Outpatient Established Mo d MDM 30-39 Min Completed 03/01/2021 99884 ECG 12-Lead Completed 01/25/2021 60772 Office/Outpatient Established Lo w MDM 20-29 Min Completed 12/25/2020 70921 Office/Outpatient Established Lo w MDM 20-29 Min Completed 12/25/2020 48804 Arterial Pressure Wa veform Analysis For Assessment Of Central Art Completed 11/13/2020 88658 Office/Outpatient New Moderate M DM 45-59 Minutes Completed 11/13/2020 86890 Arterial Pressure Wa veform Analysis For Assessment Of Central Art Completed 11/13/2020 12159 ECG 12-Lead Completed Medical Devices Description No Information Available Encounters Type Date Location Provider Dx Diagnosis Office Visit 03/01/2021 11:15a Main Office [facility] I48 .21 Permanent atrial fibrillation I49.5 Sick sinus syndrome Z95.0 Presence of cardiac pacemake r I50.42 Chronic combined systolic an d diastolic hrt fail I25.5 Ischemic cardiomyopathy I25.10 Athscl heart disease of [place] coronary artery w/o ang pctrs Z95.1 Presence of aortocoronary by pass graft I10 Essential (primary) hyperten pema E78.00 Pure hypercholesterolemia, u nspecified Z86.718 Personal history of other ve nous thrombosis and embolism I63.9 Cerebral infarction, unspeci fied R94.31 Abnormal electrocardiogram [ ECG] [EKG] Z71.3 Dietary counseling and surve illance Office Visit 01/25/2021 12:45p Main Office [facility] I50 .42 Chronic combined systolic and diastolic hrt fail I10 Essential (primary) hyperten pema R60.0 Localized edema Office Visit 12/25/2020 12:15p Main Office Kayode Augustin MD I50.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 I10 Essential (primary) hyperten pema Office Visit 11/13/2020 8:00a Main Office Kayode Augustin MD I48.2 1 Permanent atrial fibrillation I50.42 Chronic combined systolic an d diastolic hrt fail I25.5 Ischemic cardiomyopathy I25.10 Athscl heart disease of [place] coronary artery w/o ang pctrs E78.00 Pure hypercholesterolemia, u nspecified Z95.1 Presence of aortocoronary by pass graft R07.9 Chest pain, unspecified I49.5 Sick sinus syndrome Z95.0 Presence of cardiac pacemake r I10 Essential (primary) hyperten pema R60.0 Localized edema I45.19 Other right bundle-branch bl ock Assessments Date Code Description Provider 03/01/2021 I48.21 Permanent atrial fibrillation Ca [facility] 03/01/2021 I49.5 Sick sinus syndrome [facility] 03/01/2021 Z95.0 Presence of cardiac pacemaker Ca [facility] 03/01/2021 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 [facility] 03/01/2021 I25.5 Ischemic cardiomyopathy [facility] 03/01/2021 I25.10 Atherosclerotic hear t disease of [place] coronary artery without angina pectoris [facility] 03/01/2021 Z95.1 Presence of aortocoronary bypass graft [facility] 03/01/2021 I10 Essential (primary) hypertension [facility] 03/01/2021 E78.00 Pure hypercholesterolemia, unspe cified [facility] 03/01/2021 Z86.718 Personal history of other venous thrombosis and embolism [facility] 03/01/2021 I63.9 Cerebral infarction, unspecified [facility] 03/01/2021 R94.31 Abnormal electrocardiogram [ECG] [EKG] [facility] 03/01/2021 Z71.3 Dietary counseling and surveilla nce [facility] 01/25/2021 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 [facility] Bender 01/25/2021 I10 Essential (primary) hypertension [facility] Bender 01/25/2021 R60.0 Localized edema [facility]toS[facility] Diaz Cha, se 12/25/2020 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 Kayode Augustin MD 12/25/2020 I10 Essential (primary) hypertension Kayode Augustin MD 11/13/2020 I48.21 Permanent atrial fibrillation Francis Augustin MD 11/13/2020 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 Kayode Augustin MD 11/13/2020 I25.5 Ischemic cardiomyopathy Kayode Augustin MD 11/13/2020 I25.10 Atherosclerotic hear t disease of [place] coronary artery without angina pectoris Kayode Augustin MD 11/13/2020 E78.00 Pure hypercholesterolemia, unspe cified Kayode Augustin MD 11/13/2020 Z95.1 Presence of aortocoronary bypass graft Kayode Augustin MD 11/13/2020 R07.9 Chest pain, unspecified Kayode Augustin MD 11/13/2020 I49.5 Sick sinus syndrome Kayode marlow MD 11/13/2020 Z95.0 Presence of cardiac pacemaker Francis Augustin MD 11/13/2020 I10 Essential (primary) hypertension Kayode Augustin MD 11/13/2020 R60.0 Localized edema Kayode Augustin MD 11/13/2020 I45.19 Other right bundle-branch block Kayode Augustin MD 10/12/2020 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 Steve Mart MD 10/12/2020 I48.21 Permanent atrial fibrillation Solomon Mart MD 10/12/2020 I44.30 Unspecified atrioventricular blo ck Steve Mart MD 10/12/2020 R94.31 Abnormal electrocardiogram [ECG] [EKG] Steve Mart MD 10/12/2020 I25.10 Atherosclerotic hear t disease of [place] coronary artery without angina pectoris Steve Mart MD 10/12/2020 Z86.718 Personal history of other venous thrombosis and embolism Steve Mart MD Plan of Treatment Future Appointment(s):* 08/30/2021 1:30 pm - [facility] at Main Office * 03/23/2021 7:00 am - [facility] at Main Office 03/01/2021 - [facility]* I48.21 Permanent atrial fibrillation* Recommendations:* Continue carvedilol and Eliquis at the current dosages Patient agreeable to contact our office with any episodes of tachycardia or palpitations * I49.5 Sick sinus syndrome * Z95.0 Presence of cardiac pacemaker* Recommendations:* Turn on home device, please call with any questions If we are unable to connect with his home device will need to see him back in the office sooner for an office check * I50.42 Chronic combined systolic (congestive) and diastolic (congestive) heart failure* New Labs:* CBC With Differential, Ordered: 03/01/21 * Comprehensive Metabolic Profil, Ordered: 03/01/21 * NT-Pro BNP, Ordered: 03/01/21 * Recommendations:* Increase torsemide to 80mg x 5 days, then back to 60mg daily Blood pressure today with room to increase diuretic Have given parameters to hold if systolic blood pressure less than 100 * I25.5 Ischemic cardiomyopathy * I25.10 Atherosclerotic heart disease of [place] coronary artery without angina pectoris* Recommendations:* Advised patient to contact our office with any chest pain, shortness of breath, new or concerning symptoms * Z95.1 Presence of aortocoronary bypass graft * I10 Essential (primary) hypertension* Recommendations:* Increase torsemide to 80mg x 5 days, then back to 60mg daily Continue valsartan (Via Entresto, and carvedilol at the current dosages Advised patient to please monitor blood pressures at home and to alert our office for readings >140/>90 or <110/<60 * E78.00 Pure hypercholesterolemia, unspecified* New Labs:* Lipid Panel, Ordered: 03/01/21 * Recommendations:* Continue atorvastatin at the current dosage * Z86.718 Personal history of other venous thrombosis and embolism* Recommendations:* Continue Eliquis at the current dosage * I63.9 Cerebral infarction, unspecified* Recommendations:* Please seek medical attention with the onset of any further lateralizing neurologic symptoms * R94.31 Abnormal electrocardiogram [ECG] [EKG]* Recommendations:* No further evaluation is needed at this time. * Z71.3 Dietary counseling and surveillance* Recommendations:* Recommended for patient to follow a more whole food diet. Advised patient to avoid overly processed foods and packaged foods. Advised patient to avoid sodas, juices and other liquid calories. Recommended at least 30 minutes of exercise 3 days a week. * All * Follow up:* Follow up in 6 months, dependent on lab results may need a CHF check * Recommendations:* Please address sleep concerns with PCP Functional Status Functional Condition Comment Date Status Requires assistance with bathing Active Requires assistance with dressing Active Requires assistance with toileting Active Independent with feeding Active Dependent with ambulating Active Independent with grooming Active Dependent with standing Active Mental Status Description No Information Available Referrals Description No Information Available
--- OUTSIDE RECORDS SUMMARY | 2021-03-22 15:54 | CCD | Continuity of Care Document ---
Author Elias Swan Organization Unknown Address [address] [place] [address], [facility] [place] [address] Phone [phone] Care Team Providers Care Lace Weaver Name Role Phone Nataly Burk DO AUTM [phone] Problems Active Problems Provider Date Dietary management [...] mouth twice daily for chronic pain Karuna Bukr, DO 02/28/2021 Quetiapine Fumarate 50mg Tablets 1 by [...] every day I50.42 Unknown 12/24/2020 - R60.0 Bwrlteh-Mihncjtt-Eubnlxhufxf [id number]/5ML Suspension give 30 mls by mouth up [...] Date Facility Test Result H/L Range Note [facility] 02/24/2021 [facility] - not interfaced (315)- - Calcium Ser/Plasma Mass/Vol 8.8 Sodium 140 Carbon Dioxide Ser/Plasm 28 Chloride Serum/Plasma 105 Potassium 3.7 Glucose 101 83-110 Blood Urea Nitrogen 33 High 7-18 Creatinine 2.09 High 0.6-1.0 G F R 33.6 BMP 01/21/2021 [facility] - not interfaced (315)- - Calcium Ser/Plasma Mass/Vol 8.7 Sodium 139 Carbon Dioxide Ser/Plasm 29 Chloride Serum/Plasma 105 Potassium 4.1 Glucose 82 Low 83-110 Blood Urea Nitrogen 34 High 7-18 Creatinine 2.01 High 0.6-1.0 G F R 35.1 Laboratory test finding 01/21/2021 [facility] - not interf aced (315)- - NT Probnp QN Ser/Plas 786 CBC without Differential 01/18/2021 [facility] - not inter faced (315)- - White Blood Count 4.6 Low 5.0-10.0 Red Blood Count 3.70 Low 4.00-5.40 Platelets 158 Low 172-450 Hemoglobin 11.9 Hematocrit 36.2 [facility] 01/18/2021 [facility] - not interfaced (315)- - Calcium Ser/Plasma Mass/Vol 8.7 Sodium 140 Carbon Dioxide Ser/Plasm 26 Chloride Serum/Plasma 107 Potassium 3.9 Glucose 111 High 83-110 Blood Urea Nitrogen 31 High 7-18 Creatinine 1.89 High 0.6-1.0 G F R 37.7 Laboratory test finding 01/18/2021 [facility] - not interf aced (315)- - NT Probnp QN Ser/Plas 783 Basic Metabolic Panel 10/06/2020 [facility] - not interfac ed (315)- - Glucose 121 High 70-100 Blood Urea Nitrogen 25 High 7-18 Creatinine 1.50 High 0.70-1.30 Sodium 139 136-145 Potassium 4.2 3.5-5.1 Chloride 106 98-107 Carbon Dioxide 29 21-32 Calcium 9.0 8.2-9.6 GFR (Calculated) 49.3 >32 Laboratory test finding 10/06/2020 [facility] - not interf aced (315)- - Magnesium Level 2.3 1.8-2.4 CBC without Differential 10/06/2020 [facility] - not inter faced (315)- - White Blood Count 6.0 4.0-10.0 Red Blood Count 3.99 Low 4.30-6.10 Platelets 204 150-450 Hemoglobin 12.5 Hematocrit 39.1 Lipid Profile/Cardiac Risk Pro 09/12/2020 [facility] Triglycerides 86 Cholesterol 124 HDL 42 LDL Cholesterol 65 Chol/HDL Ratio 3.0 Hemoglobin A1c 09/12/2020 [facility] Hemoglobin A1c 5.8 Procedures Date Code Description Status 03/01/2021 47666 Office/Outpatient Established Mo d MDM 30-39 Min Completed 03/01/2021 72419 ECG 12-Lead Completed 01/25/2021 80950 Office/Outpatient Established Lo w MDM 20-29 Min Completed 12/25/2020 66024 Office/Outpatient Established Lo w MDM 20-29 Min Completed 12/25/2020 55881 Arterial Pressure Wa veform Analysis For Assessment Of Central Art Completed 11/13/2020 31383 Office/Outpatient New Moderate M DM 45-59 Minutes Completed 11/13/2020 32021 Arterial Pressure Wa veform Analysis For Assessment Of Central Art Completed 11/13/2020 02056 ECG 12-Lead Completed Medical Devices Description No [...] 03/01/2021 I25.10 Atherosclerotic hear t disease of [place] coronary artery without angina pectoris [facility] [...] and diastolic (congestive) heart failure [facility] 01/25/2021 I10 Essential (primary) hypertension [facility]ender 01/25/2021 R60.0 Localized edema [facility] Wallace Cha, se 12/25/2020 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 Kayode Augustin MD 12/25/2020 I10 Essential (primary) hypertension Kayode Augustin MD 11/13/2020 I48.21 Permanent atrial fibrillation Francis Augustin MD 11/13/2020 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
--- OUTSIDE RECORDS SUMMARY | 2021-03-22 15:55 | CCD ---
Continuity of Care Document (CCD) Created on: 03/01/2021 Elias Rao External Reference #: [id number] : [id number] Sex: Male Author Organization Unknown Address Unknown Phone Unavailable Care Team Providers Care Manager Pharmacy Name Role Phone Nataly Burk DO AUTM [phone] Problems Active Problems Provider Date Dietary management [...] every day I50.42 Unknown 12/24/2020 - R60.0 Xqlljry-Kkentzbo-Ckmydrguvxj [id number]/5ML Suspension give 30 mls by mouth up [...] Test Result H/L Range Note BMP 02/24/2021 [facility] - not interfaced (315)- - Calcium Ser/Plasma Mass/Vol 8.8 Sodium 140 Carbon Dioxide Ser/Plasm 28 Chloride Serum/Plasma 105 Potassium 3.7 Glucose 101 83-110 Blood Urea Nitrogen 33 High 7-18 Creatinine 2.09 High 0.6-1.0 G F R 33.6 BMP 01/21/2021 [facility] - not interfaced (315)- - Calcium Ser/Plasma Mass/Vol 8.7 Sodium 139 Carbon Dioxide Ser/Plasm 29 Chloride Serum/Plasma 105 Potassium 4.1 Glucose 82 Low 83-110 Blood Urea Nitrogen 34 High 7-18 Creatinine 2.01 High 0.6-1.0 G F R 35.1 Laboratory test finding 01/21/2021 [facility] - not interf aced (315)- - NT Probnp QN Ser/Plas 786 CBC without Differential 01/18/2021 [facility] - not inter faced (315)- - White Blood Count 4.6 Low 5.0-10.0 Red Blood Count 3.70 Low 4.00-5.40 Platelets 158 Low 172-450 Hemoglobin 11.9 Hematocrit 36.2 BMP 01/18/2021 [facility] - not interfaced (315)- - Calcium Ser/Plasma Mass/Vol 8.7 Sodium 140 Carbon Dioxide Ser/Plasm 26 Chloride Serum/Plasma 107 Potassium 3.9 Glucose 111 High 83-110 Blood Urea Nitrogen 31 High 7-18 Creatinine 1.89 High 0.6-1.0 G F R 37.7 Basic Metabolic Panel 10/06/2020 [facility] - not interfac ed (315)- - Glucose 121 High 70-100 Blood Urea Nitrogen 25 High 7-18 Creatinine 1.50 High 0.70-1.30 Sodium 139 136-145 Potassium 4.2 3.5-5.1 Chloride 106 98-107 Carbon Dioxide 29 21-32 Calcium 9.0 8.2-9.6 GFR (Calculated) 49.3 >32 Laboratory test finding 10/06/2020 [facility] - not interf aced (315)- - Magnesium Level 2.3 1.8-2.4 CBC without Differential 10/06/2020 [facility] - not inter faced (315)- - White Blood Count 6.0 4.0-10.0 Red Blood Count 3.99 Low 4.30-6.10 Platelets 204 150-450 Hemoglobin 12.5 Hematocrit 39.1 Lipid Profile/Cardiac Risk Pro 09/12/2020 [facility] Triglycerides 86 Cholesterol 124 HDL 42 LDL Cholesterol 65 Chol/HDL Ratio 3.0 Hemoglobin A1c 09/12/2020 [facility] Hemoglobin A1c 5.8 Procedures Date Code Description Status 03/01/2021 48650 Office/Outpatient Established Mo d MDM 30-39 Min Completed 03/01/2021 91349 ECG 12-Lead Completed 01/25/2021 32316 Office/Outpatient Established Lo w MDM 20-29 Min Completed 12/25/2020 58059 Office/Outpatient Established Lo w MDM 20-29 Min Completed 12/25/2020 40690 Arterial Pressure Wa veform Analysis For Assessment Of Central Art Completed 11/13/2020 74669 Office/Outpatient New Moderate M DM 45-59 Minutes Completed 11/13/2020 20260 Arterial Pressure Wa veform Analysis For Assessment Of Central Art Completed 11/13/2020 20545 ECG 12-Lead Completed Medical Devices Description No [...] 03/01/2021 I25.10 Atherosclerotic hear t disease of [place] coronary artery without angina pectoris [facility] [...] [facility] 01/25/2021 I10 Essential (primary) hypertension [facility] 01/25/2021 R60.0 Localized edema [facility] Wallace Cha, [...] 11/13/2020 I25.10 Atherosclerotic hear t disease of [place] coronary artery without angina pectoris Kayode Augustin [...] 10/12/2020 I25.10 Atherosclerotic hear t disease of [place] coronary artery without angina pectoris Steve Mart [...] cardiomyopathy * I25.10 Atherosclerotic heart disease of [place] coronary artery without angina pectoris* Recommendations:* Advised [...]
--- OUTSIDE RECORDS SUMMARY | 2021-03-22 15:55 | CCD | Continuity of Care Document ---
Author Organization Unknown Address Unknown Phone Unavailable Care Team Providers Care Hydraulic Press Servicer Name Role Phone Nataly Burk DO AUTM [phone] Problems Active Problems Provider Date Edema aKyode Augustin MD Onset: 11/13/2020 Chest pain Kayode [...] not consume alcohol Tobacco Use Start: Unknown Patient has never smoked Smoking Status Reviewed: 12/25/20 Patient has never smoked Exercise Type/Frequency Limited self-car e: Confined to bed/chair > 50% of waking hours Exercise Limitations Other Stroke - Ri ght side weakness Allergies, Adverse Reactions, Alerts Description No Known Drug Allergies Medications Active Medications SIG Qnty Indications Ordering Provide r Date Torsemide 20mg Tablets 3 by mouth every day 90tabs I50.42 Kayode Augustin MD 12/25/2020 R60.[address] 1 by mouth every day Unknown 12/24/2020 Senna-S 8.6-50mg Tablets 2 by mouth daily Unknown 12/24/2020 Cvflcoi-Duotgacs-Dyktkmkdbqv 596-200-85pu/5ML Suspension give 30 mls by mouth up to 4 times daily as needed Unknown 12/24/2020 Carvedilol 6.25mg Tablets 1 by mouth twice a day Unknown 12/24/2020 Entresto 24-26mg Tablets 1 tab by mouth twice a day (begin after off enalapril for 36 hours) 60tabs I50.42 Kayode Augustin MD 11/13/2020 Acetaminophen 650mg Suppository 1 every 4 hours as needed Unknown 11/12/2020 Tylenol 325mg Tablets 1 tabs by mouth every 8 hours as needed Unknown 11/13/19 Multi Vitamin Tablets daily Unknown 11/12/2020 Milk Of Magnesia Concentrate 2400mg/10ML Suspension 10ml by mouth every night at bedtime as needed Unknown 11/12/2020 Dulcolax 10mg Suppository 1 per rectum as needed if no bm Unknown 11/12/2020 Enema Disposable Enema 1 rectally every day as needed Unknown 11/12/2020 Eliquis 5mg Tablets 1 by mouth twice a day Unknown 11/12/2020 Atorvastatin Calcium 20mg Tablets 1 by mouth every night at bedtime Unknown Gabapentin 600mg Tablets 1 by mouth bid Unknown 11/12/2020 Trazodone HCL 50mg Tablets 1 by mouth every night at bedtime Unknown Pantoprazole Sodium 40mg Tablets D R 1 by mouth every day Unknown 11/12/2020 Pramipexole Dihydrochloride 1mg Ta blets 1 by mouth bid Unknown 11/12/2020 Quetiapine Fumarate 50mg Tablets 1 by mouth twice daily Unknown 11/12/2020 History Medications Torsemide 20mg Tablets 2 by mouth every day I50.42 Unknown 12/24/2020 - R60.0 Torsemide 20mg Tablets 1 by mouth every day 30tabs I50.42 Kayode Augustin MD 11/13/2020 - 12/24/2020 R60.0 Metoprolol Succinate ER 50mg Tablets ER 24HR 1 by mouth every day 60tabs I50.42 Kayode Augustin MD 11/13/2020 - 12/24/2020 I48.21 I49.5 Bumex 1mg Tablets 1 by jennifer th daily I50.42 Unknown 11/12/2020 - 11/13/2020 R60.0 Carvedilol 6.25mg Tablets 1 by mouth twice a day I50.42 Unknown 11/12/2020 - I48.21 I49.5 Enalapril Maleate 5mg Tablets 1 by mouth bid I50.42 Unknown 11/12/2020 - Calcium 600 600mg Tablets 1 by mouth twice daily Unknown 11/12/2020 - Immunizations Description No Information Available Vital Signs Date Vital Result Comment 12/25/2020 11:59am Home Weight 215lb home weight Height 66 inches 5'6" Heart Rate 78 /min BP Systolic Sitting 100 mmHg CBP, large cuff/LA BP Diastolic Sitting 63 mmHg CBP, large cuff/LA 11/13/2020 8:07am Home Weight 216lb home weight Height 66 inches 5'6" Heart Rate 75 /min BP Systolic Sitting 113 mmHg CBP, large cuff/LA BP Diastolic Sitting 73 mmHg CBP, large cuff/LA Results Test Acquired Date Facility Test Result H/L Range Note BMP 01/21/2021 [facility] - not interfaced (315)- - Calcium Ser/Plasma Mass/Vol 8.7 Sodium 139 Carbon Dioxide Ser/Plasm 29 Chloride Serum/Plasma 105 Potassium 4.1 Glucose 82 Low 83-110 Blood Urea Nitrogen 34 High 7-18 Creatinine 2.01 High 0.6-1.0 G F R 35.1 CBC without Differential 01/18/2021 [facility] - not inter faced (315)- - White Blood Count 4.6 Low 5.0-10.0 Red Blood Count 3.70 Low 4.00-5.40 Platelets 158 Low 172-450 Hemoglobin 11.9 Hematocrit 36.2 BMP 01/18/2021 [facility] - not interfaced (315)- - Calcium Ser/Plasma Mass/Vol 8.7 Sodium 140 Carbon Dioxide Ser/Plasm 26 Chloride Serum/Plasma 107 Potassium 3.9 Glucose 111 High 83-110 Blood Urea Nitrogen 31 High 7-18 Creatinine 1.89 High 0.6-1.0 G F R 37.7 Basic Metabolic Panel 10/06/2020 [facility] - not interfac ed (315)- - Glucose 121 High 70-100 Blood Urea Nitrogen 25 High 7-18 Creatinine 1.50 High 0.70-1.30 Sodium 139 136-145 Potassium 4.2 3.5-5.1 Chloride 106 98-107 Carbon Dioxide 29 21-32 Calcium 9.0 8.2-9.6 GFR (Calculated) 49.3 >32 Laboratory test finding 10/06/2020 [facility] - not interf aced (315)- - Magnesium Level 2.3 1.8-2.4 CBC without Differential 10/06/2020 [facility] - not inter faced (315)- - White Blood Count 6.0 4.0-10.0 Red Blood Count 3.99 Low 4.30-6.10 Platelets 204 150-450 Hemoglobin 12.5 Hematocrit 39.1 Lipid Profile/Cardiac Risk Pro 09/12/2020 [facility] Triglycerides 86 Cholesterol 124 HDL 42 LDL Cholesterol 65 Chol/HDL Ratio 3.0 Hemoglobin A1c 09/12/2020 [facility] Hemoglobin A1c 5.8 CBC without Differential 08/08/2020 [facility] White Blood Count 4.5 Red Blood Count 3.79 Platelets 100 Hemoglobin 12.2 Hematocrit 36.6 CMP 08/07/2020 [facility] Albumin Serum/Plasma 3.7 Alt - SGPT 15 Calcium Ser/Plasma Mass/Vol 8.6 Carbon Dioxide Ser/Plasm 24 Chloride Serum/Plasma 110 Alkaline Phosphatase 75 Potassium 4.0 Protein Total -- Sodium 142 Ast - Sgot 14 BUN - Urea Nitrogen 18 Glucose 95 Creatinine For GFR 1.20 Procedures Date Code Description Status 12/25/2020 01455 Office/Outpatient Established Lo w MDM 20-29 Min Completed 12/25/2020 68070 Arterial Pressure Wa veform Analysis For Assessment Of Central Art Completed 11/13/2020 26880 Office/Outpatient New Moderate M DM 45-59 Minutes Completed 11/13/2020 66068 Arterial Pressure Wa veform Analysis For Assessment Of Central Art Completed 11/13/2020 98865 ECG 12-Lead Completed Medical Devices Description No Information Available Encounters Type Date Location Provider Dx Diagnosis Office Visit 12/25/2020 12:15p Main Office Kayode [...] bl ock Assessments Date Code Description Provider 12/25/2020 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 Kayode Augustin MD 12/25/2020 I10 Essential (primary) hypertension Kayode Augustin MD 11/13/2020 I48.21 Permanent atrial fibrillation Francis Augustin MD 11/13/2020 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 Kayode Augustin MD 11/13/2020 I25.5 Ischemic cardiomyopathy Kayode Augustin MD 11/13/2020 I25.10 Atherosclerotic hear t disease of [place] coronary artery without angina pectoris Kayode Augustin [...] 10/12/2020 I25.10 Atherosclerotic hear t disease of [place] coronary artery without angina pectoris Steve Mart MD 10/12/2020 Z86.718 Personal history of other venous thrombosis and embolism Steve Mart MD Plan of Treatment Future Appointment(s):* 01/25/2021 12:45 pm - [facility] at Main Office * 03/23/2021 7:00 am - [facility] Main Office * 02/02/2021 9:00 am - [facility] at Main Office 12/25/2020 - Kayode Augustin MD* I50.42 Chronic combined systolic (congestive) and diastolic (congestive) heart failure* New Medication:* Torsemide 20 mg - 3 by mouth every day * New Labs:* NT-Pro BNP, Ordered: 12/25/20 * Renal Profile, Ordered: 12/25/20 * Magnesium Level, Ordered: 12/25/20 * Recommendations:* Echocardiogram Doppler scheduled 02/02/2021. Torsemide was increased to 60 mg [20 mg x3 tablets] daily. NT proBNP, renal profile, serum magnesium were ordered. Continue Entresto and carvedilol at the current dosages. * I10 Essential (primary) hypertension* Recommendations:* As noted above, torsemide was increased to 60 mg daily. Continue valsartan (via Entresto) and carvedilol at the current dosages. * All * Follow up:* Clinic visit in 4 weeks with physician sales assistant. Functional Status Functional Condition Comment Date Status Requires assistance with ambulating Active Requires assistance with bathing Active Requires assistance with dressing Active Requires assistance with grooming Active Requires assistance with standing Active Requires assistance with toileting Active Independent with feeding Active Mental Status Description No Information Available Referrals Description No Information Available
--- OUTSIDE RECORDS SUMMARY | 2021-03-22 15:55 | CCD | Continuity of Care Document ---
Author Elias Swan MD Organization Unknown Address [address] [place] [address], [facility] [place] [place] [address] Phone [phone] Care Team Providers Care School Fundraising Director Name Role Phone Nataly Burk DO AUTM [phone] Problems Active Problems Provider Date Edema Kayode Augustin MD Onset: 11/13/2020 Chest [...] ght side weakness Allergies, Adverse Reactions, Alerts Active Allergies Criticality Reaction | Severity Comments Date Bupropion Unable to assess criticality 01/24/2021 Valproic Acid Unable to assess criticality 01/24/2021 Paroxetine Unable to assess criticality 01/24/2021 Simvastatin Unable to assess criticality 01/24/2021 Inactive Allergies NKDA Unable to assess criticality 11/13/2020 Medications Active Medications SIG Qnty Indications Ordering Provide r Date Quetiapine Fumarate 50mg Tablets 1 by mouth daily Nataly Burk DO Torsemide 20mg Tablets 3 by mouth [...] hours) 60tabs I50.42 Kayode Augustin MD 11/13/2020 Dulcolax 10mg Suppository 1 per rectum as needed if no bm Unknown 11/12/2020 Tylenol 325mg Tablets 1 tabs by mouth every 8 hours as needed Unknown 11/13/19 Milk Of Magnesia Concentrate 2400mg/10ML Suspension 10ml by mouth every night at bedtime as needed Unknown 11/12/2020 Enema Disposable Enema 1 rectally [...] blets 1 by mouth bid Unknown 11/12/2020 History Medications Torsemide 20mg Tablets 2 by mouth every day I50.42 Unknown 12/24/2020 - R60.0 Tsczfyb-Fuxjgajf-Uealwrffqiy 143-783-76sd/5ML Suspension give 30 mls by mouth up to 4 times daily as needed Unknown 12/24/2020 - 01/24/2021 Torsemide 20mg Tablets 1 by mouth every [...] Available Vital Signs Date Vital Result Comment 01/25/2021 12:55pm Height 66 inches 5'6" BP Systolic Sitting 106 mmHg Ra, large cuff BP Diastolic Sitting 60 mmHg Ra, large cuff 12/25/2020 11:59am Home Weight 215lb home weight Height 66 inches 5'6" Heart Rate 78 /min BP Systolic Sitting 100 mmHg CBP, large cuff/LA BP Diastolic Sitting 63 mmHg CBP, large cuff/LA Results Test Acquired Date Facility Test Result H/L Range Note BMP 01/21/2021 [facility] - not interfaced (315)- - Calcium Ser/Plasma Mass/Vol 8.7 Sodium 139 Carbon Dioxide Ser/Plasm 29 Chloride Serum/Plasma 105 Potassium 4.1 Glucose 82 Low 83-110 Blood Urea Nitrogen 34 High 7-18 Creatinine 2.01 High 0.6-1.0 G F R 35.1 CBC without Differential 01/18/2021 [facility] - not inter faced (315)- - White Blood Count 4.6 Low 5.0-10.0 Red Blood Count 3.70 Low 4.00-5.40 Platelets 158 Low 172-450 Hemoglobin 11.9 Hematocrit 36.2 BMP 01/18/2021 [facility] - not interfaced (315)- - Calcium Ser/Plasma Mass/Vol 8.7 Sodium 140 Carbon Dioxide Ser/Plasm 26 Chloride Serum/Plasma 107 Potassium 3.9 Glucose 111 High 83-110 Blood Urea Nitrogen 31 High 7-18 Creatinine 1.89 High 0.6-1.0 G F R 37.7 Basic Metabolic Panel 10/06/2020 [facility] - not interfac ed (315)- - Glucose 121 High 70-100 Blood Urea Nitrogen 25 High 7-18 Creatinine 1.50 High 0.70-1.30 Sodium 139 136-145 Potassium 4.2 3.5-5.1 Chloride 106 98-107 Carbon Dioxide 29 21-32 Calcium 9.0 8.2-9.6 GFR (Calculated) 49.3 >32 Laboratory test finding 10/06/2020 [facility] - not interf aced (315)- - Magnesium Level 2.3 1.8-2.4 CBC without Differential 10/06/2020 [facility] - not inter faced (315)- - [...] GFR 1.20 Procedures Date Code Description Status 01/25/2021 95171 Office/Outpatient Established Lo w MDM 20-29 Min Completed 12/25/2020 78016 Office/Outpatient Established Lo w MDM 20-29 Min Completed 12/25/2020 99573 Arterial Pressure Wa veform Analysis For Assessment Of Central Art Completed 11/13/2020 25053 Office/Outpatient New Moderate M DM 45-59 Minutes Completed 11/13/2020 34545 Arterial Pressure Wa veform Analysis For Assessment Of Central Art Completed 11/13/2020 66903 ECG 12-Lead Completed Medical Devices Description No Information Available Encounters Type Date Location Provider Dx Diagnosis Office Visit 01/25/2021 12:45p Main [facility] [...] bl ock Assessments Date Code Description Provider 01/25/2021 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 (congestive) [...] 11/13/2020 I25.10 Atherosclerotic hear t disease of [place] coronary artery without angina pectoris Kayode Augustin [...] 11/13/2020 I45.19 Other right bundle-branch block Kayode Aguustin MD 10/12/2020 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 Steve Mart MD 10/12/2020 I48.21 Permanent atrial fibrillation Solomon Mart MD 10/12/2020 I44.30 Unspecified atrioventricular blo ck Steve Mart MD 10/12/2020 R94.31 Abnormal electrocardiogram [ECG] [EKG] Steve Mart MD 10/12/2020 I25.10 Atherosclerotic hear t disease of [place] coronary artery without angina pectoris Steve Mart MD 10/12/2020 Z86.718 Personal history of other venous thrombosis and embolism Steve Mart MD Plan of Treatment Future Appointment(s):* 03/01/2021 11:15 am - [facility] at Main Office * 03/23/2021 7:00 am - [facility] at Main Office * 02/02/2021 9:00 am - [facility] at Main Office 01/25/2021 - [facility]* I50.42 Chronic combined systolic (congestive) and diastolic (congestive) heart failure* New Labs:* Comprehensive Metabolic Profil, Ordered: 01/25/21 * NT-Pro BNP, Ordered: 01/25/21 * CBC With Differential, Ordered: 01/25/21 * Recommendations:* Please obtain labs Proceed with echocardiogram as scheduled No increase in torsemide due to hypotension * I10 Essential (primary) hypertension* New Labs:* Magnesium Level, Ordered: 01/25/21 * Recommendations:* Continue torsemide, valsartan (Via Entresto, and carvedilol at the current dosages Advised patient to please monitor blood pressures at home and to alert our office for readings >140/>90 or <110/<60 * R60.0 Localized edema* Recommendations:* Lower external Doppler ordered for further evaluation to rule out DVT Continue torsemide as directed * All * Follow up:* Follow up in 1 month Functional Status Functional Condition Comment Date Status Requires assistance with ambulating Active Requires assistance with bathing Active Requires assistance with dressing Active Requires assistance with grooming Active Requires assistance with standing Active Requires assistance with toileting Active Independent with feeding Active Mental Status Description No Information Available Referrals Description No Information Available
--- OUTSIDE RECORDS SUMMARY | 2021-03-22 15:55 | CCD | Continuity of Care Document ---
Author Organization Unknown Address Unknown Phone Unavailable Care Team Providers Care Abrasive Grader Name Role Phone Nataly Burk DO AUTM [phone] Problems Active Problems Provider Date Edema Kayode [...] Tablets 2 by mouth daily Unknown 12/24/2020 Foxcqhi-Khrbixiz-Jpscfhwwbau [id number]/5ML Suspension give 30 mls by mouth up [...] Date Facility Test Result H/L Range Note CBC without Differential 01/18/2021 [facility] - not inter faced (315)- - White Blood Count 4.6 Low 5.0-10.0 Red Blood Count 3.70 Low 4.00-5.40 Platelets 158 Low 172-450 Hemoglobin 11.9 Hematocrit 36.2 BMP 01/18/2021 [facility] - not interfaced (315)- - Calcium Ser/Plasma Mass/Vol 8.7 Sodium 140 Carbon Dioxide Ser/Plasm 26 Chloride Serum/Plasma 107 Potassium 3.9 Glucose 111 High 83-110 Blood Urea Nitrogen 31 High 7-18 Creatinine 1.89 High 0.6-1.0 G F R 37.7 Basic Metabolic Panel 10/06/2020 [facility] - not interfac ed (315)- - Glucose 121 High 70-100 Blood Urea Nitrogen 25 High 7-18 Creatinine 1.50 High 0.70-1.30 Sodium 139 136-145 Potassium 4.2 3.5-5.1 Chloride 106 98-107 Carbon Dioxide 29 21-32 Calcium 9.0 8.2-9.6 GFR (Calculated) 49.3 >32 Laboratory test finding 10/06/2020 [facility] - not interf aced (315)- - Magnesium Level 2.3 1.8-2.4 CBC without Differential 10/06/2020 [facility] - not inter faced (315)- - White [...] 1.20 Procedures Date Code Description Status 12/25/2020 19921 Office/Outpatient Established Lo w MDM 20-29 Min Completed 12/25/2020 96945 Arterial Pressure Wa veform Analysis For Assessment Of Central Art Completed 11/13/2020 01566 Office/Outpatient New Moderate M DM 45-59 Minutes Completed 11/13/2020 42633 Arterial Pressure Wa veform Analysis For Assessment Of Central Art Completed 11/13/2020 14349 ECG 12-Lead Completed Medical Devices Description No [...] 11/13/2020 I25.10 Atherosclerotic hear t disease of [place] coronary artery without angina pectoris Kayode [...] 10/12/2020 I25.10 Atherosclerotic hear t disease of [place] coronary artery without angina pectoris Steve [...] Clinic visit in 4 weeks with physician podiatric assistant. Functional Status Functional Condition Comment Date Status Requires assistance with ambulating Active Requires assistance with bathing Active Requires assistance with dressing Active Requires assistance with grooming Active Requires assistance with standing Active Requires assistance with toileting Active Independent with feeding Active Mental Status Description No Information Available Referrals Description No Information Available
--- OUTSIDE RECORDS SUMMARY | 2021-03-22 15:55 | CCD | Continuity of Care Document ---
Author Organization Unknown Address Unknown Phone Unavailable Care Team Providers Care Manager Renewable Energy Name Role Phone Nataly Burk DO AUTM [phone] Problems Active Problems Provider Date Edema Kayode [...] Tablets 1 by mouth daily Nataly Burk, Torsemide 20mg Tablets 3 by mouth every [...] off enalapril for 36 hours) 60tabs I50.42 Kaydoe Augustin MD 11/13/2020 Dulcolax 10mg Suppository 1 per rectum as needed if no bm Unknown 11/12/2020 Tylenol 325mg Tablets 1 tabs by mouth every 8 hours as needed Unknown 11/13/19 21 Milk Of Magnesia Concentrate 2400mg/10ML Suspension 10ml [...] every day I50.42 Unknown 12/24/2020 - R60.0 Zjqqnnr-Jdwtrkgn-Wcsezxmnswp 813-855-29lc/5ML Suspension give 30 mls by mouth up [...] Test Result H/L Range Note BMP 02/24/2021 [facility] - not interfaced (315)- - Calcium Ser/Plasma Mass/Vol 8.8 Sodium 140 Carbon Dioxide Ser/Plasm 28 Chloride Serum/Plasma 105 Potassium 3.7 Glucose 101 83-110 Blood Urea Nitrogen 33 High 7-18 Creatinine 2.09 High 0.6-1.0 G F R 33.6 BMP 01/21/2021 [facility] - not interfaced (315)- - Calcium Ser/Plasma Mass/Vol 8.7 Sodium 139 Carbon Dioxide Ser/Plasm 29 Chloride Serum/Plasma 105 Potassium 4.1 Glucose 82 Low 83-110 Blood Urea Nitrogen 34 High 7-18 Creatinine 2.01 High 0.6-1.0 G F R 35.1 CBC without Differential 01/18/2021 [facility] - not inter faced (315)- - White Blood Count 4.6 Low 5.0-10.0 Red Blood Count 3.70 Low 4.00-5.40 Platelets 158 Low 172-450 Hemoglobin 11.9 Hematocrit 36.2 BMP 01/18/2021 [facility] - not interfaced (315)- - Calcium Ser/Plasma Mass/Vol 8.7 Sodium 140 Carbon Dioxide Ser/Plasm 26 Chloride Serum/Plasma 107 Potassium 3.9 Glucose 111 High 83-110 Blood Urea Nitrogen 31 High 7-18 Creatinine 1.89 High 0.6-1.0 G F R 37.7 Basic Metabolic Panel 10/06/2020 [facility] - not interfac ed (315)- - Glucose 121 High 70-100 Blood Urea Nitrogen 25 High 7-18 Creatinine 1.50 High 0.70-1.30 Sodium 139 136-145 Potassium 4.2 3.5-5.1 Chloride 106 98-107 Carbon Dioxide 29 21-32 Calcium 9.0 8.2-9.6 GFR (Calculated) 49.3 >32 Laboratory test finding 10/06/2020 [facility] - not interf aced (315)- - Magnesium Level 2.3 1.8-2.4 CBC without Differential 10/06/2020 [facility] - not inter faced (315)- - White Blood Count 6.0 4.0-10.0 Red Blood Count 3.99 Low 4.30-6.10 Platelets 204 150-450 Hemoglobin 12.5 Hematocrit 39.1 Lipid Profile/Cardiac Risk Pro 09/12/2020 [facility] Triglycerides 86 Cholesterol 124 HDL 42 LDL Cholesterol 65 Chol/HDL Ratio 3.0 Hemoglobin A1c 09/12/2020 [facility] Hemoglobin A1c 5.8 Procedures Date Code Description Status 01/25/2021 03548 Office/Outpatient Established Lo w MDM 20-29 Min Completed 12/25/2020 57841 Office/Outpatient Established Lo w MDM 20-29 Min Completed 12/25/2020 19674 Arterial Pressure Wa veform Analysis For Assessment Of Central Art Completed 11/13/2020 26684 Office/Outpatient New Moderate M DM 45-59 Minutes Completed 11/13/2020 83631 Arterial Pressure Wa veform Analysis For Assessment Of Central Art Completed 11/13/2020 74294 ECG 12-Lead Completed Medical Devices Description No [...] Augustin MD 11/13/2020 I48.21 Permanent atrial fibrillation Da ari Augustin MD 11/13/2020 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 Kayode Augustin MD 11/13/2020 I25.5 Ischemic cardiomyopathy Kayode Augustin MD 11/13/2020 I25.10 Atherosclerotic hear t disease of [place] coronary artery without angina pectoris Kayode Augustin MD 11/13/2020 E78.00 Pure hypercholesterolemia, unspe cified Kayode Augustin MD 11/13/2020 Z95.1 Presence of aortocoronary bypass graft Kayode Augustin MD 11/13/2020 R07.9 Chest pain, unspecified Kayode Augustin MD 11/13/2020 I49.5 Sick sinus syndrome Kayode marlow MD 11/13/2020 Z95.0 Presence of cardiac pacemaker Da vijackie Augustin MD 11/13/2020 I10 Essential (primary) hypertension Kayode Augustin MD 11/13/2020 R60.0 Localized edema Kayode Augustin MD 11/13/2020 I45.19 Other right bundle-branch block Kayode Augustin MD 10/12/2020 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 Steve Mart MD 10/12/2020 I48.21 Permanent atrial fibrillation Ja niko Mart MD 10/12/2020 I44.30 Unspecified atrioventricular blo ck Steve Mart MD 10/12/2020 R94.31 Abnormal electrocardiogram [ECG] [EKG] Steve Mart MD 10/12/2020 I25.10 Atherosclerotic hear t disease of [place] coronary artery without angina pectoris Steve Mart MD 10/12/2020 Z86.718 Personal history of other venous thrombosis and embolism Steve Mart MD Plan of Treatment Future Appointment(s):* 03/01/2021 11:15 am - [facility] at Main Office * 03/23/2021 7:00 am - [facility] at Main Office 01/25/2021 - [facility]* [...]
--- OUTSIDE RECORDS SUMMARY | 2021-03-22 15:55 | CCD | Continuity of Care Document ---
Author Organization Unknown Address Unknown Phone Unavailable Care Team Providers Care Cnc Specialist Name Role Phone Nataly Burk DO AUTM [phone] Problems Active Problems Provider Date Dietary management [...] every day I50.42 Unknown 12/24/2020 - R60.0 Fjponse-Brswexky-Eabfnkkwlgr [phone]/5ML Suspension give 30 mls by mouth up [...] Test Result H/L Range Note BMP 02/24/2021 [facility] - not interfaced (315)- - Calcium Ser/Plasma Mass/Vol 8.8 Sodium 140 Carbon Dioxide Ser/Plasm 28 Chloride Serum/Plasma 105 Potassium 3.7 Glucose 101 83-110 Blood Urea Nitrogen 33 High 7-18 Creatinine 2.09 High 0.6-1.0 G F R 33.6 BMP 01/21/2021 [facility] - not interfaced (315)- - Calcium Ser/Plasma Mass/Vol 8.7 Sodium 139 Carbon Dioxide Ser/Plasm 29 Chloride Serum/Plasma 105 Potassium 4.1 Glucose 82 Low 83-110 Blood Urea Nitrogen 34 High 7-18 Creatinine 2.01 High 0.6-1.0 G F R 35.1 CBC without Differential 01/18/2021 [facility] - not inter faced (315)- - White Blood Count 4.6 Low 5.0-10.0 Red Blood Count 3.70 Low 4.00-5.40 Platelets 158 Low 172-450 Hemoglobin 11.9 Hematocrit 36.2 [facility] 01/18/2021 [facility] - not interfaced (315)- - Calcium Ser/Plasma Mass/Vol 8.7 Sodium 140 Carbon Dioxide Ser/Plasm 26 Chloride Serum/Plasma 107 Potassium 3.9 Glucose 111 High 83-110 Blood Urea Nitrogen 31 High 7-18 Creatinine 1.89 High 0.6-1.0 G F R 37.7 Basic Metabolic Panel 10/06/2020 [facility] - not interfac ed (315)- - Glucose 121 High 70-100 Blood Urea Nitrogen 25 High 7-18 Creatinine 1.50 High 0.70-1.30 Sodium 139 136-145 Potassium 4.2 3.5-5.1 Chloride 106 98-107 Carbon Dioxide 29 21-32 Calcium 9.0 8.2-9.6 GFR (Calculated) 49.3 >32 Laboratory test finding 10/06/2020 [facility] - not interf aced (315)- - Magnesium Level 2.3 1.8-2.4 CBC without Differential 10/06/2020 [facility] - not inter faced (315)- - White Blood Count 6.0 4.0-10.0 Red Blood Count 3.99 Low 4.30-6.10 Platelets 204 150-450 Hemoglobin 12.5 Hematocrit 39.1 Lipid Profile/Cardiac Risk Pro 09/12/2020 [facility] Triglycerides 86 Cholesterol 124 HDL 42 LDL Cholesterol 65 Chol/HDL Ratio 3.0 Hemoglobin A1c 09/12/2020 [facility] Hemoglobin A1c 5.8 Procedures Date Code Description Status 03/01/2021 49368 Office/Outpatient Established Mo d MDM 30-39 Min Completed 03/01/2021 96276 ECG 12-Lead Completed 01/25/2021 35070 Office/Outpatient Established Lo w MDM 20-29 Min Completed 12/25/2020 15798 Office/Outpatient Established Lo w MDM 20-29 Min Completed 12/25/2020 81330 Arterial Pressure Wa veform Analysis For Assessment Of Central Art Completed 11/13/2020 34842 Office/Outpatient New Moderate M DM 45-59 Minutes Completed 11/13/2020 92328 Arterial Pressure Wa veform Analysis For Assessment Of Central Art Completed 11/13/2020 77358 ECG 12-Lead Completed Medical Devices Description No [...] 03/01/2021 I25.10 Atherosclerotic hear t disease of [place] coronary artery without angina pectoris [facility] [...] hypertension [facility] 01/25/2021 R60.0 Localized edema Jacquelin Bains Mouna forbes, [place] 12/25/2020 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 Kayode Augustin MD 12/25/2020 I10 Essential (primary) hypertension Kayode Augustin MD 11/13/2020 I48.21 Permanent atrial fibrillation Francis Augustin MD 11/13/2020 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
--- OUTSIDE RECORDS SUMMARY | 2021-03-22 15:55 | CCD | Continuity of Care Document ---
Author Organization Unknown Address Unknown Phone Unavailable Care Team Providers Care Mouse Breeder Name Role Phone Nataly Burk DO AUTM [phone] Problems Active Problems Provider Date Dietary management [...] every day I50.42 Unknown 12/24/2020 - R60.0 Ypjluan-Dzkfvqwb-Bvrirergght [phone]/5ML Suspension give 30 mls by mouth up [...] Test Result H/L Range Note BMP 02/24/2021 [facility] - not interfaced (315)- - Calcium Ser/Plasma Mass/Vol 8.8 Sodium 140 Carbon Dioxide Ser/Plasm 28 Chloride Serum/Plasma 105 Potassium 3.7 Glucose 101 83-110 Blood Urea Nitrogen 33 High 7-18 Creatinine 2.09 High 0.6-1.0 G F R 33.6 BMP 01/21/2021 [facility] - not interfaced (315)- - Calcium Ser/Plasma Mass/Vol 8.7 Sodium 139 Carbon Dioxide Ser/Plasm 29 Chloride Serum/Plasma 105 Potassium 4.1 Glucose 82 Low 83-110 Blood Urea Nitrogen 34 High 7-18 Creatinine 2.01 High 0.6-1.0 G F R 35.1 Laboratory test finding 01/21/2021 [facility] - not interf aced (315)- - NT Probnp QN Ser/Plas 786 CBC without Differential 01/18/2021 [facility] - not inter faced (315)- - White Blood Count 4.6 Low 5.0-10.0 Red Blood Count 3.70 Low 4.00-5.40 Platelets 158 Low 172-450 Hemoglobin 11.9 Hematocrit 36.2 BMP 01/18/2021 [facility] - not interfaced (315)- - Calcium Ser/Plasma Mass/Vol 8.7 Sodium 140 Carbon Dioxide Ser/Plasm 26 Chloride Serum/Plasma 107 Potassium 3.9 Glucose 111 High 83-110 Blood Urea Nitrogen 31 High 7-18 Creatinine 1.89 High 0.6-1.0 G F R 37.7 Basic Metabolic Panel 10/06/2020 [facility] - not interfac ed (315)- - Glucose 121 High 70-100 Blood Urea Nitrogen 25 High 7-18 Creatinine 1.50 High 0.70-1.30 Sodium 139 136-145 Potassium 4.2 3.5-5.1 Chloride 106 98-107 Carbon Dioxide 29 21-32 Calcium 9.0 8.2-9.6 GFR (Calculated) 49.3 >32 Laboratory test finding 10/06/2020 [facility] - not interf aced (315)- - Magnesium Level 2.3 1.8-2.4 CBC without Differential 10/06/2020 [facility] - not inter faced (315)- - White Blood Count 6.0 4.0-10.0 Red Blood Count 3.99 Low 4.30-6.10 Platelets 204 150-450 Hemoglobin 12.5 Hematocrit 39.1 Lipid Profile/Cardiac Risk Pro 09/12/2020 [facility] Triglycerides 86 Cholesterol 124 HDL 42 LDL Cholesterol 65 Chol/HDL Ratio 3.0 Hemoglobin A1c 09/12/2020 [facility] Hemoglobin A1c 5.8 Procedures Date Code Description Status 03/01/2021 02909 Office/Outpatient Established Mo d MDM 30-39 Min Completed 03/01/2021 98931 ECG 12-Lead Completed 01/25/2021 38778 Office/Outpatient Established Lo w MDM 20-29 Min Completed 12/25/2020 76620 Office/Outpatient Established Lo w MDM 20-29 Min Completed 12/25/2020 03887 Arterial Pressure Wa veform Analysis For Assessment Of Central Art Completed 11/13/2020 71795 Office/Outpatient New Moderate M DM 45-59 Minutes Completed 11/13/2020 49306 Arterial Pressure Wa veform Analysis For Assessment Of Central Art Completed 11/13/2020 02852 ECG 12-Lead Completed Medical Devices Description No [...] 03/01/2021 I25.10 Atherosclerotic hear t disease of [place] coronary artery without angina pectoris [facility] [...] 11/13/2020 I25.10 Atherosclerotic hear t disease of [place] coronary artery without angina pectoris Kayode Augustin [...] 10/12/2020 I25.10 Atherosclerotic hear t disease of [place] coronary artery without angina pectoris Steve Mart [...] cardiomyopathy * I25.10 Atherosclerotic heart disease of [place] coronary artery without angina pectoris* Recommendations:* Advised [...]
--- OUTSIDE RECORDS SUMMARY | 2021-03-22 15:55 | CCD | Continuity of Care Document ---
Author Elias Swan Organization Unknown Address [address] [place] [address], [facility] [place] [address] Phone [phone] Care Team Providers Care Back Grinder Name Role Phone Nataly Burk DO AUTM [phone] Problems Active Problems Provider Date Dietary management [...] 20s, quit in 60s Smoking Status Reviewed: 12/25/20 Patient is a former smoker up to [...] twice daily for chronic pain Karuna Burk, DO 02/28/2021 Quetiapine Fumarate 50mg Tablets 1 [...] every day I50.42 Unknown 12/24/2020 - R60.0 Dojbqhl-Mevogsoe-Fziphchystd [phone]/5ML Suspension give 30 mls by mouth up [...] 66 inches 5'6" Heart Rate 81 /min 01/25/2021 12:55pm Height 66 inches 5'6" BP Systolic Sitting 106 mmHg Ra, large cuff BP Diastolic Sitting 60 mmHg Ra, large cuff Results Test Acquired Date Facility Test Result H/L Range Note [facility] 02/24/2021 [facility] - not interfaced (315)- - Calcium Ser/Plasma Mass/Vol 8.8 Sodium 140 Carbon Dioxide Ser/Plasm 28 Chloride Serum/Plasma 105 Potassium 3.7 Glucose 101 83-110 Blood Urea Nitrogen 33 High 7-18 Creatinine 2.09 High 0.6-1.0 G F R 33.6 BMP 01/21/2021 [facility] - not interfaced (315)- - Calcium Ser/Plasma Mass/Vol 8.7 Sodium 139 Carbon Dioxide Ser/Plasm 29 Chloride Serum/Plasma 105 Potassium 4.1 Glucose 82 Low 83-110 Blood Urea Nitrogen 34 High 7-18 Creatinine 2.01 High 0.6-1.0 G F R 35.1 CBC without Differential 01/18/2021 [facility] - not inter faced (315)- - White Blood Count 4.6 Low 5.0-10.0 Red Blood Count 3.70 Low 4.00-5.40 Platelets 158 Low 172-450 Hemoglobin 11.9 Hematocrit 36.2 [facility] 01/18/2021 [facility] - not interfaced (315)- - Calcium Ser/Plasma Mass/Vol 8.7 Sodium 140 Carbon Dioxide Ser/Plasm 26 Chloride Serum/Plasma 107 Potassium 3.9 Glucose 111 High 83-110 Blood Urea Nitrogen 31 High 7-18 Creatinine 1.89 High 0.6-1.0 G F R 37.7 Basic Metabolic Panel 10/06/2020 [facility] - not interfac ed (315)- - Glucose 121 High 70-100 Blood Urea Nitrogen 25 High 7-18 Creatinine 1.50 High 0.70-1.30 Sodium 139 136-145 Potassium 4.2 3.5-5.1 Chloride 106 98-107 Carbon Dioxide 29 21-32 Calcium 9.0 8.2-9.6 GFR (Calculated) 49.3 >32 Laboratory test finding 10/06/2020 [facility] - not interf aced (315)- - Magnesium Level 2.3 1.8-2.4 CBC without Differential 10/06/2020 [facility] - not inter faced (315)- - White Blood Count 6.0 4.0-10.0 Red Blood Count 3.99 Low 4.30-6.10 Platelets 204 150-450 Hemoglobin 12.5 Hematocrit 39.1 Lipid Profile/Cardiac Risk Pro 09/12/2020 [facility] Triglycerides 86 Cholesterol 124 HDL 42 LDL Cholesterol 65 Chol/HDL Ratio 3.0 Hemoglobin A1c 09/12/2020 [facility] Hemoglobin A1c 5.8 Procedures Date Code Description Status 03/01/2021 39795 Office/Outpatient Established Mo d MDM 30-39 Min Completed 03/01/2021 87183 ECG 12-Lead Completed 01/25/2021 46825 Office/Outpatient Established Lo w MDM 20-29 Min Completed 12/25/2020 81684 Office/Outpatient Established Lo w MDM 20-29 Min Completed 12/25/2020 04867 Arterial Pressure Wa veform Analysis For Assessment Of Central Art Completed 11/13/2020 76936 Office/Outpatient New Moderate M DM 45-59 Minutes Completed 11/13/2020 78560 Arterial Pressure Wa veform Analysis For Assessment Of Central Art Completed 11/13/2020 58124 ECG 12-Lead Completed Medical Devices Description No [...] 03/01/2021 I25.10 Atherosclerotic hear t disease of [place] coronary artery without angina pectoris [facility] [...] 11/13/2020 I25.10 Atherosclerotic hear t disease of [place] coronary artery without angina pectoris Kayode Augustin [...] 10/12/2020 I25.10 Atherosclerotic hear t disease of [place] coronary artery without angina pectoris Steve Mart [...] of cardiac pacemaker* Recommendations:* Turn on home device * I50.42 Chronic combined systolic (congestive) and diastolic (congestive) heart failure* New Labs:* CBC With Differential, Ordered: 03/01/21 * Comprehensive Metabolic Profil, Ordered: 03/01/21 * NT-Pro BNP, Ordered: 03/01/21 * Recommendations:* Increase torsemide to 80mg x 5 days, then back to 60mg daily * I25.5 Ischemic cardiomyopathy * I25.10 Atherosclerotic heart disease of [place] coronary artery without angina pectoris * Z95.1 Presence of aortocoronary bypass graft [...] * Follow up:* Follow up in 6 months Functional Status Functional Condition Comment Date Status Requires assistance with bathing Active Requires assistance with dressing Active Requires assistance with toileting Active Independent with feeding Active Dependent with ambulating Active Independent with grooming Active Dependent with standing Active Mental Status Description No Information Available Referrals Description No Information Available
--- OUTSIDE RECORDS SUMMARY | 2021-03-22 15:55 | CCD ---
Continuity of Care Document (CCD) Created on: 12/25/2020 Maria Del CarmenElias olson External Reference #: [id number] Sex: Male Author Author Elias DUPONT MD Organization Unknown Address [address] [place] [address], [facility] [place] [address] Phone [phone] Care Team Providers Care Micrographics Services Supervisor Name Role Phone Nataly Burk DO AUTM [phone] Problems Active Problems Provider Date Edema Kayode Dupont MD Onset: 11/13/2020 Chest pain Kayode Dupont MD Onset: 11/13/2020 Chronic ischemic heart disease Kayode Dupont MD Onset: 0 11/13/2020 Right bundle branch block Kayode Dupont MD Onset: 2020 Pure hypercholesterolemia Kayode Dupont MD Onset: 2020 Essential hypertension Kayode Dupont MD Onset: 1 Cardiac pacemaker in situ Kayode Dupont MD Onset: 2020 Sinus node dysfunction Kayode Dupont MD Onset: 1 History of coronary artery bypass grafting Kayode Dupont MD Onset: 11/13/2020 Multi vessel coronary artery [...] by mouth every day 90tabs I50.42 Kayode Dupont MD 12/25/2020 R60.[address] 1 by mouth every day Unknown 12/24/2020 Senna-S 8.6-50mg Tablets 2 by mouth daily Unknown 12/24/2020 Dakeidp-Irhqcmic-Lbwmhbrzwtv 962-361-27so/5ML Suspension give 30 mls by mouth up to 4 times daily as needed Unknown 12/24/2020 Carvedilol 6.25mg Tablets 1 by mouth twice a day Unknown 12/24/2020 Entresto 24-26mg Tablets 1 tab by mouth twice a day (begin after off enalapril for 36 hours) 60tabs I50.42 Kayode Dupont MD 11/13/2020 Acetaminophen 650mg Suppository 1 every 4 hours as needed Unknown 11/12/2020 Tylenol 325mg Tablets 1 tabs by mouth every 8 hours as needed Unknown 11/13/19 21 Multi Vitamin Tablets daily Unknown 11/12/2020 Milk [...] by mouth every day 30tabs I50.42 Kayode Dupont MD 11/13/2020 - 12/24/2020 R60.0 Metoprolol Succinate ER 50mg Tablets ER 24HR 1 by mouth every day 60tabs I50.42 Kayode Dupont MD 11/13/2020 - 12/24/2020 I48.21 I49.5 Bumex [...] Date Facility Test Result H/L Range Note Basic Metabolic Panel 10/06/2020 [facility] [place] not interfac ed (315)- - Glucose 121 High 70-100 Blood Urea Nitrogen 25 High 7-18 Creatinine 1.50 High 0.70-1.30 Sodium 139 136-145 Potassium 4.2 3.5-5.1 Chloride 106 98-107 Carbon Dioxide 29 21-32 Calcium 9.0 8.2-9.6 GFR (Calculated) 49.3 >32 Laboratory test finding 10/06/2020 [facility] [place] not interf aced (315)- - Magnesium Level 2.3 1.8-2.4 CBC without Differential 10/06/2020 [facility] [place] - not inter faced (315)- - White [...] 1.20 Procedures Date Code Description Status 12/25/2020 39638 Office/Outpatient Established Lo w MDM 20-29 Min Completed 12/25/2020 09855 Arterial Pressure Wa veform Analysis For Assessment Of Central Art Completed 11/13/2020 66177 Office/Outpatient New Moderate M DM 45-59 Minutes Completed 11/13/2020 34496 Arterial Pressure Wa veform Analysis For Assessment Of Central Art Completed 11/13/2020 69636 ECG 12-Lead Completed Medical Devices Description No Information Available Encounters Type Date Location Provider Dx Diagnosis Office Visit 12/25/2020 12:15p Main Office Kayode Dupont MD I50.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 I10 Essential (primary) hyperten pema Office Visit 11/13/2020 8:00a Main Office Kayode Dupont MD I48.2 1 Permanent atrial fibrillation I50.42 [...] (congestive) and diastolic (congestive) heart failure Kayode Dupont MD 12/25/2020 I10 Essential (primary) hypertension Kayode Dupont MD 11/13/2020 I48.21 Permanent atrial fibrillation Francis Dupont MD 11/13/2020 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 Kayode Dupont MD 11/13/2020 I25.5 Ischemic cardiomyopathy Kayode Dupont MD 11/13/2020 I25.10 Atherosclerotic hear t disease of [place] coronary artery without angina pectoris Kayode Dupont MD 11/13/2020 E78.00 Pure hypercholesterolemia, unspe cified Kayode Dupont MD 11/13/2020 Z95.1 Presence of aortocoronary bypass graft Kayode Dupont MD 11/13/2020 R07.9 Chest pain, unspecified Kayode Dupont MD 11/13/2020 I49.5 Sick sinus syndrome Kayode marlow MD 11/13/2020 Z95.0 Presence of cardiac pacemaker Francis Dupont MD 11/13/2020 I10 Essential (primary) hypertension Kayode Dupont MD 11/13/2020 R60.0 Localized edema Kayode Dupont MD 11/13/2020 I45.19 Other right bundle-branch block Kayode Dupont MD 10/12/2020 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 Steve Mart MD 10/12/2020 I48.21 Permanent atrial fibrillation Solomon Mart MD 10/12/2020 I44.30 Unspecified atrioventricular blo ck Steve Mart MD 10/12/2020 R94.31 Abnormal electrocardiogram [ECG] [EKG] Steve Mart MD 10/12/2020 I25.10 Atherosclerotic hear t disease of [place] coronary artery without angina pectoris Steve Mart MD 10/12/2020 Z86.718 Personal history of other venous thrombosis and embolism Steve Mart MD Plan of Treatment Future Appointment(s):* 01/25/2021 12:45 pm - [facility] at Main Office * 03/23/2021 7:00 am - [facility] at Main Office * 02/02/2021 9:00 am - [facility] at Main Office 12/25/2020 - Kayode Dupont MD* I50.42 Chronic combined systolic (congestive) and diastolic (congestive) heart failure* New Medication:* Torsemide 20 mg - 3 by mouth every day * New Labs:* NT-Pro BNP, Ordered: 12/25/20 * Renal Profile, Ordered: 12/25/20 * Magnesium Level, Ordered: 12/25/20 * I10 Essential (primary) hypertension * All * Follow up:* Clinic visit in 4 weeks with physician social services assistant. Functional Status Functional Condition Comment Date Status Requires assistance with ambulating Active Requires assistance with bathing Active Requires assistance with dressing Active Requires assistance with grooming Active Requires assistance with standing Active Requires assistance with toileting Active Independent with feeding Active Mental Status Description No Information Available Referrals Description No Information Available
--- OUTSIDE RECORDS SUMMARY | 2021-03-22 15:55 | CCD | Continuity of Care Document ---
Author Author Elias DUPONT MD Organization Unknown Address [address] [place] [address], [place] [address] Phone [phone] Care Team Providers Care Kids Activities Coach Name Role Phone Nataly Burk DO AUTM [phone] Problems Active Problems Provider Date Edema Kayode [...] Tablets 2 by mouth daily Unknown 12/24/2020 Avlrsci-Aocdjwce-Ntqlrtjqnoz [id number]/5ML Suspension give 30 mls by mouth up [...] H/L Range Note Basic Metabolic Panel 10/06/2020 [facility] - not interfac ed (315)- - Glucose 121 High 70-100 Blood Urea Nitrogen 25 High 7-18 Creatinine 1.50 High 0.70-1.30 Sodium 139 136-145 Potassium 4.2 3.5-5.1 Chloride 106 98-107 Carbon Dioxide 29 21-32 Calcium 9.0 8.2-9.6 GFR (Calculated) 49.3 >32 Laboratory test finding 10/06/2020 [facility] - not interf aced (315)- - Magnesium Level 2.3 1.8-2.4 CBC without Differential 10/06/2020 [facility] - not inter faced (315)- - [...] 1.20 Procedures Date Code Description Status 12/25/2020 63666 Office/Outpatient Established Lo w MDM 20-29 Min Completed 12/25/2020 05847 Arterial Pressure Wa veform Analysis For Assessment Of Central Art Completed 11/13/2020 97018 Office/Outpatient New Moderate M DM 45-59 Minutes Completed 11/13/2020 14042 Arterial Pressure Wa veform Analysis For Assessment Of Central Art Completed 11/13/2020 95915 ECG 12-Lead Completed Medical Devices Description No [...] 11/13/2020 I25.10 Atherosclerotic hear t disease of [place] coronary artery without angina pectoris Kayode Dupont [...] 10/12/2020 I25.10 Atherosclerotic hear t disease of [place] coronary artery without angina pectoris Steve Mart [...] Clinic visit in 4 weeks with physician financial services assistant. Functional Status Functional Condition Comment Date Status Requires assistance with ambulating Active Requires assistance with bathing Active Requires assistance with dressing Active Requires assistance with grooming Active Requires assistance with standing Active Requires assistance with toileting Active Independent with feeding Active Mental Status Description No Information Available Referrals Description No Information Available
--- OUTSIDE RECORDS SUMMARY | 2021-03-22 15:57 | CCD ---
Author Author [facility] Organization [facility] Address Unknown Phone Unavailable Support Name Relationship Address Phone JIMMY GODDARD Next Of Kin [address] [facility] [address] [place] [address] MICAELA ROY(COUSIN) Next Of Kin [address] [facility] [address] [place] [id number] DEBORAH BROOKS Next Of Kin [address] [place] [id number] MICAELA ROY Next Of Kin [address] [place] [address] Juaquin LYNN Next Of Kin [address] [place] [address] KRYSTA THOMAS Next Of Kin [address] [place] [address] MARIE HENDERSON Next Of Kin Unknown RE Next Of Kin Unknown Unavailable [place]EMPLOYED [place] [address] ROWAN JUAREZ Next Of Kin [address] [place] [address] UE Next Of Kin Unknown Unavailable Miladys [place] [address] JOHN HAYS Next Of Kin [address] [facility], [address] Deborah Brooks ECON [id number] [facility] [address] [place] [phone] jimmy venegas ECON Unknown [phone] Marie Henderson ECON Unknown Unavailable Micaela Roy ECON [address] [place] [address] Unavailable 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 Name Role Phone NO, PCP Unavailable Unavailable Raza Delarosa MD Unavailable Unavailable Malina, Raza Mcclure MD Unavailable Unavailable Malina, Raza Mcclure MD Unavailable Unavailable Malina, Raza Mcclure MD Unavailable Unavailable Malina, Raza Mcclure MD Unavailable Unavailable Malina, Raza Mcclure MD Unavailable Unavailable Malina, Raza Mcclure MD Unavailable Unavailable Malina, Raza Mcclure MD Unavailable Unavailable Malina, Raza Mcclure MD Unavailable Unavailable Malina, Raza Mcclure MD Unavailable Unavailable Malina, Raza Mcclure MD Unavailable Unavailable Malina, Raza Mcclure MD Unavailable Unavailable Malina, Raza Mcclure MD Unavailable Unavailable Malina, Raza Mcclure MD Unavailable Unavailable Malina, Raza Mcclure MD Unavailable Unavailable Malina, Raza Mcclure MD Unavailable Unavailable Malina, Raza Mcclure MD Unavailable Unavailable Malina, Raza Mcclure MD Unavailable Unavailable Malina, Raza Mcclure MD Unavailable Unavailable Malina, Raza Mcclure MD Unavailable Unavailable Malina, Raza Mcclure MD Unavailable Unavailable Malina, Raza Mcclure MD Unavailable Unavailable Malina, Raza Mcclure MD Unavailable Unavailable Malina, Raza Mcclure MD Unavailable Unavailable Malina, Raza Mcclure MD Unavailable Unavailable Malina, Raza Mcclure MD Unavailable Unavailable Malina, Raza Mcclure MD Unavailable Unavailable Malina, Raza Mcclure MD Unavailable Unavailable Malina, Raza Mcclure MD Unavailable Unavailable Malina, Raza Mcclure MD Unavailable Unavailable Malina, Raza Mcclure MD Unavailable Unavailable Malina, Raza Mcclure MD Unavailable Unavailable Malina, Raza Mcclure MD Unavailable Unavailable Malina, Raza Mcclure MD Unavailable Unavailable Malina, Raza Mcclure MD Unavailable Unavailable Malina, Raza Mcclure MD Unavailable Unavailable Malina, Raza Mcclure MD Unavailable Unavailable Malina, Raza Mcclure MD Unavailable Unavailable Malina, Raza Mcclure MD Unavailable Unavailable Malina, Raza Mcclure MD Unavailable Unavailable Malina, Raza Mcclure MD Unavailable Unavailable Malina, Raza Mcclure MD Unavailable Unavailable Malina, Raza Mcclure MD Unavailable Unavailable Malina, Raza Mcclure MD Unavailable Unavailable Malina, Raza Mcclure MD Unavailable Unavailable Malina, Raza Mcclure MD Unavailable Unavailable Malina, Raza Mcclure MD Unavailable Unavailable Malina, Raza Mcclure MD Unavailable Unavailable Malina, Raza Mcclure MD Unavailable Unavailable Malina, Raza Mcclure MD Unavailable Unavailable Malina, Raza Mcclure MD Unavailable Unavailable Malina, Raza Mcclure MD Unavailable Unavailable Malina, Raza Mcclure MD Unavailable Unavailable Malina, Raza Mcclure MD Unavailable Unavailable Malina, Raza Mcclure MD Unavailable Unavailable Malina, Raza Mcclure MD Unavailable Unavailable Malina, Raza Mcclure MD Unavailable Unavailable Malina, Raza Mcclure MD Unavailable Unavailable Malina, Raza Mcclure MD Unavailable Unavailable Malina, Raza Mcclure MD Unavailable Unavailable Malina, Raza Mcclure MD Unavailable Unavailable Malina, Raza Mcclure MD Unavailable Unavailable Malina, Raza Mcclure MD Unavailable Unavailable Malina, Raza Mcclure MD Unavailable Unavailable Malina, Raza Mcclure MD Unavailable Unavailable Malina, Raza Mcclure MD Unavailable Unavailable Malina, Raza Mcclure MD Unavailable Unavailable Malina, Raza Mcclure MD Unavailable Unavailable Malina, Raza Mcclure MD Unavailable Unavailable Malina, Raza Mcclure MD Unavailable Unavailable Malina, Raza Mcclure MD Unavailable Unavailable Malina, Raza Mcclure MD Unavailable Unavailable Malina, Raza Mcclure MD Unavailable Unavailable Malina, Raza Mcclure MD Unavailable Unavailable Malina, Raza Mcclure MD Unavailable Unavailable Malina, Raza Mcclure MD Unavailable Unavailable Malina, Raza Mcclure MD Unavailable Unavailable Migeed, Indra Tomlin MD Unavailable Unavaila ble Migeed, Indra Tomlin MD Unavailable Unavaila ble Migeed, Indra Tomlin MD Unavailable Unavaila ble Migeed, Indra Tomlin MD Unavailable Unavaila ble Migeed, Indra Tomlin MD Unavailable Unavaila ble Migeed, Indra Tomlin MD Unavailable Unavaila ble MigeedIndra MD Unavailable Unavaila ble MigeedIndra MD Unavailable Unavaila ble MigeedIndra MD Unavailable Unavaila ble MigeedIndra MD Unavailable Unavaila ble MigeedIndra MD Unavailable Unavaila ble MigeedIndra MD Unavailable Unavaila ble MigeedIndra MD Unavailable Unavaila ble MigeedIndra MD Unavailable Unavaila ble MigeedIndra MD Unavailable Unavaila ble MigeedIndra MD Unavailable Unavaila ble Migeed, Indra Tomlin MD Unavailable Unavaila ble MigeedIndra MD Unavailable Unavaila ble MigeedIndra MD Unavailable Unavaila ble Migeed, Indra Tomlin MD Unavailable Unavaila ble MigeedIndra MD Unavailable Unavaila ble Migeed, Indra Tomlin MD Unavailable Unavaila ble MigeedIndra MD Unavailable Unavaila ble Migeed, Indra Tomlin MD Unavailable Unavaila ble Migeed, Indra Tomlin MD Unavailable Unavaila ble Migeed, Indra Tomlin MD Unavailable Unavaila ble Migeed, Indra Tomlin MD Unavailable Unavaila ble Migeed, Indra Tomlin MD Unavailable Unavaila ble Migeed, Indra Tomlin MD Unavailable Unavaila ble Migeed, Indra Tomlin MD Unavailable Unavaila ble Migeed, Indra Tomlin MD Unavailable Unavaila ble Migeed, Indra Tomlin MD Unavailable Unavaila ble Migeed, Indra Tomlin MD Unavailable Unavaila ble Migeed, Indra Tomlin MD Unavailable Unavaila ble Migeed, Indra Tomlin MD Unavailable Unavaila ble Migeed, Indra Tomlin MD Unavailable Unavaila ble MigeedIndra MD Unavailable Unavaila ble MigeedIndra MD Unavailable Unavaila ble MigeedIndra MD Unavailable Unavaila ble MigeedIndra MD Unavailable Unavaila ble MigeedIndra MD Unavailable Unavaila ble MigeedIndra MD Unavailable Unavaila ble MigeedIndra MD Unavailable Unavaila ble MigeedIndra MD Unavailable Unavaila ble MigeedIndra MD Unavailable Unavaila ble MigeedIndra MD Unavailable Unavaila ble Migeed, Indra Tomlin MD Unavailable Unavaila ble Migeed, Indra Tomlin MD Unavailable Unavaila ble Migeed, Indra Tomlin MD Unavailable Unavaila ble CAPRICE, MAQBOOL NEYMAR MD Unavailable Unavailable CAPRICE, [...] Unavailable CAPRICE, MAQBOOL NEYMAR MD Unavailable Unavailable CAPRICEMAK MD Unavailable Unavailable CAPRICEMAK Vaca MD Unavailable Unavailable CAPRICEMAK MD Unavailable Unavailable CAPRICEMAK TOLLIVER MD Unavailable Unavailable DENY, L MARIO PA Unavailable Unavailable DENY, L MARIO PA Unavailable Unavailable DENY, L MARIO PA Unavailable Unavailable DENY, L MARIO PA Unavailable Unavailable DENY, L MARIO PA Unavailable Unavailable DENY, L MARIO PA Unavailable Unavailable DENY, L MARIO PA Unavailable Unavailable DENY, L MARIO PA Unavailable Unavailable DENY, L MARIO PA Unavailable Unavailable DENY, L MARIO PA Unavailable Unavailable DENY, L MARIO PA Unavailable Unavailable DENY, L MARIO PA Unavailable Unavailable DENY, L MARIO PA Unavailable Unavailable DENY, L MARIO PA Unavailable Unavailable DENY, L MARIO PA Unavailable Unavailable DENY, L MARIO PA Unavailable Unavailable ANTECOL, Gina DOOELY MD Unavailable Unavailable ANTECOL, Gina DOOLEY MD Unavailable Unavailable ANTECOL, Gina DOOLEY MD Unavailable Unavailable ANTECOL, Gina DOOLEY MD Unavailable Unavailable ANTECOL, Gina DOOLEY MD Unavailable Unavailable ANTECOL, Gina DOOLEY MD Unavailable Unavailable ANTECOL, Gina DOOLEY MD Unavailable Unavailable ANTECOL, Gina DOOLEY MD Unavailable Unavailable ANTECOL, Gina DOOLEY MD Unavailable Unavailable ANTECOL, Gina DOOLEY MD Unavailable Unavailable ANTECOL, Gina DOOLEY MD Unavailable Unavailable ANTECOL, Gina DOOLEY MD Unavailable Unavailable ANTECOL, Gina DOOLEY MD Unavailable Unavailable ANTECOL, Gina DOOLEY MD Unavailable Unavailable ANTECOL, Gina DOOLEY MD Unavailable Unavailable ANTECOL, Gina DOOLEY MD Unavailable Unavailable ANTECOL, Gina DOOLEY MD Unavailable Unavailable ANTECOL, Gina DOOLEY MD Unavailable Unavailable ANTECOL, Gina DOOLEY MD Unavailable Unavailable ANTECOL, Gina DOOLEY MD Unavailable Unavailable ANTECOL, Gina DOOLEY MD Unavailable Unavailable ANTECOL, Gina DOOLEY MD Unavailable Unavailable ANTECOL, Gina DOOLEY MD Unavailable Unavailable ANTECOL, Gina DOOLEY MD Unavailable Unavailable ANTECOL, Gina DOOLEY MD Unavailable Unavailable ANTECOL, Gina DOOLEY MD Unavailable Unavailable ANTECOL, Gina DOOLEY MD Unavailable Unavailable ANTECOL, Gina DOOLEY MD Unavailable Unavailable ANTECOL, Gina DOOLEY MD Unavailable Unavailable ANTECOL, Gina DOLOEY MD Unavailable Unavailable ANTECOL, Gina DOOLEY MD Unavailable Unavailable ANTECOL, Gina DOOLEY MD Unavailable Unavailable ANTECOL, Gina DOOLEY MD Unavailable Unavailable ANTECOL, Gina DOOLEY MD Unavailable Unavailable ANTECOL, Gina DOOLEY MD Unavailable Unavailable ANTECOL, Gina DOOLEY MD Unavailable Unavailable ANTECOL, Gina DOOLEY MD Unavailable Unavailable ANTECOL, Gina DOOLEY MD Unavailable Unavailable ANTECOL, Gina DOOLEY MD Unavailable Unavailable ANTECOL, Gina DOOLEY MD Unavailable Unavailable ANTECOL, Gina DOOLEY MD Unavailable Unavailable ANTECOL, Gina DOOLEY MD Unavailable Unavailable ANTECOL, Gina DOOLEY MD Unavailable Unavailable ANTECOL, Gina DOOLEY MD Unavailable Unavailable ANTECOL, Gina DOOLEY MD Unavailable Unavailable ANTECOL, Gina DOOLEY MD Unavailable Unavailable ANTECOL, Gina DOOLEY MD Unavailable Unavailable ANTECOL, Gina DOOLEY MD Unavailable Unavailable ANTECOL, Gina DOOLEY MD Unavailable Unavailable ANTECOL, Gina DOOLEY MD Unavailable Unavailable ANTECOL, Gina DOOLEY MD Unavailable Unavailable ANTECOL, Gina DOOLEY MD Unavailable Unavailable ANTECOL, Gina DOOLEY MD Unavailable Unavailable ANTECOL, Gina DOOLEY MD Unavailable Unavailable Malina, Raza Mcclure MD Unavailable Unavailable Malina, Raza Mcclure MD Unavailable Unavailable Malina, Raza Mcclure MD Unavailable Unavailable Malina, Raza Mcclure MD Unavailable Unavailable Malina, Raza Mcclure MD Unavailable Unavailable Malina, Raza Mcclure MD Unavailable Unavailable Malina, Raza Mcclure MD Unavailable Unavailable Malina, Raza Mcclure MD Unavailable Unavailable Malina, Raza Mcclure MD Unavailable Unavailable Malina, Raza Mcclure MD Unavailable Unavailable Malina, Raza Mcclure MD Unavailable Unavailable Malina, Raza Mcclure MD Unavailable Unavailable Malina, Raza Mcclure MD Unavailable Unavailable Malina, Raza Mcclure MD Unavailable Unavailable Malina, Raza Mcclure MD Unavailable Unavailable Malina, Raza Mcclure MD Unavailable Unavailable Malina, Raza Mcclure MD Unavailable Unavailable Malina, Raza Mcclure MD Unavailable Unavailable Malina, Raza Mcclure MD Unavailable Unavailable Malina, Raza Mcclure MD Unavailable Unavailable Malina, Raza Mcclure MD Unavailable Unavailable Malina, Raza Mcclure MD Unavailable Unavailable Malina, Raza Mcclure MD Unavailable Unavailable Malina, Raza Mcclure MD Unavailable Unavailable Malina, Raza Mcclure MD Unavailable Unavailable Malina, Raza Mcclure MD Unavailable Unavailable Malina, Raza Mcclure MD Unavailable Unavailable Malina, Raza Mcclure MD Unavailable Unavailable Malina, Raza Mcclure MD Unavailable Unavailable Malina, Raza Mcclure MD Unavailable Unavailable Malina, Raza Mcclure MD Unavailable Unavailable Malina, Raza Mcclure MD Unavailable Unavailable Malina, Raza Mcclure MD Unavailable Unavailable Malina, Raza Mcclure MD Unavailable Unavailable Malina, Raza Mcclure MD Unavailable Unavailable Malina, Raza Mcclure MD Unavailable Unavailable Malina, Raza Barnescaity CARDOZA Unavailable Unavailable Malina, Raza AguiarNelson MD Unavailable Unavailable Malina, C Nelson MD Unavailable Unavailable Malina, C Nelson MD Unavailable Unavailable Malina, C Nelson MD Unavailable Unavailable Malina, Raza Mcclure MD Unavailable Unavailable Malina, Raza AguiarNelson MD Unavailable Unavailable Malina, Raza AguiarNelson MD Unavailable Unavailable Malina, C Nelson MD Unavailable Unavailable Malina, Raza AguiarNelson MD Unavailable Unavailable Malina, C Nelson MD Unavailable Unavailable Malina, C Nelson MD Unavailable Unavailable Malina, C Nelson MD Unavailable Unavailable Malina, C Nelson MD Unavailable Unavailable Malina, C Nelson MD Unavailable Unavailable Malina, C Nelson MD Unavailable Unavailable Malina, C Nelson MD Unavailable Unavailable Malina, Raza Mcclure MD Unavailable Unavailable Malina, C Nelson MD Unavailable Unavailable Malina, Raza Mcclure MD Unavailable Unavailable Malina, Raza Mcclure MD Unavailable Unavailable Malina, Raza Mcclure MD Unavailable Unavailable Malina, Raza AguiarNelson MD Unavailable Unavailable Malina, Raza AguiarNelson MD Unavailable Unavailable Malina, C Nelson MD Unavailable Unavailable Malina, C Nelson MD Unavailable Unavailable Malina, C Nelson MD Unavailable Unavailable Malina, C Nelson CARDOZA Unavailable Unavailable Malina, Raza Mcclure MD Unavailable Unavailable Malina, Raza Mcclure MD Unavailable Unavailable Malina, Raza Mcclure MD Unavailable Unavailable Malina, C Nelson MD Unavailable Unavailable Malina, Raza AguiarNelson MD Unavailable Unavailable Malina, Raza Mcclure MD Unavailable Unavailable Malina, Raza Mcclure MD Unavailable Unavailable Malina, Raza AguiarNelson MD Unavailable Unavailable Malina, Raza Mcclure MD Unavailable Unavailable Malina, Raza AguiarNelson MD Unavailable Unavailable Malina, Raza Mcclure MD Unavailable Unavailable Malina, Raza Mcclure MD Unavailable Unavailable Malina, Raza AguiarNelson MD Unavailable Unavailable Re-disclosure Warning The records that [...] is protected by Article 27-F of the [facility] Public Health law. If you continue you may have access to information: Regarding HIV / AIDS; Provided by facilities licensed or operated by the [facility] Office of Mental Health; or Provided by the [facility] Office for People With Developmental Disabilities. If such information is present, then the following [facility] mandated warning applies: This information has been [...] law may result in a fine or halfway sentence or both. A general authorization for the release of medical or other information is NOT sufficient authorization for further disc losure. Allergies and Adverse Reactions Type Description Substance Reaction Status Data Source(s ) No Known Drug Allergies No Known Drug Allergies Drug Allergy Drug Allergy NKDA [facility] ([facility] Family History Family Member Name Family Member Gender Family Member Status Date o f Status Description Data Source(s) Unknown Male Problem [facility] ([facility], ) () Encounters Encounter Providers Location Date Indications Data Source(s ) Outpatient Attender: MARIO CHRISTINA Main Office 03/01/2021 1 1:15:00 AM EDT [facility] ([facility]) Outpatient Attender: MARIO CHRISTINA Main Office 01/25/2021 1 2:45:00 PM EDT [facility] ([facility]) Outpatient Attender: SOUMYA DUPONT MD Main Office 12/25/2020 12:15:00 PM EDT [facility] ([facility]) Outpatient Attender: SOUMYA DUPONT MD Main Office 11/13/2020 08:00:00 AM EDT [facility] ([facility]) [place] [address] [facility] [address] 09/01/2020 12:00:00 AM EDT eCW1 ([facility]) Outpatient Attender: Nelson Delarosa MDConsultant: PCP NO 08/13/2020 02:20:00 PM EDT - 08/13/2020 03:20:00 PM EDT [facility] [place] [address] [facility] [address] 08/07/2020 12:00:00 AM EST eCW1 ([facility]) Inpatient Attender: Nabor Sylvester MDAdmitter: Nabor ratliff MD [id number] 08/06/2020 11:14:10 AM EST - 08/08/2020 02:57:00 PM EST [facility] Patient discharged. <td ID="encounterTypeDescriptionID0">[Pa tient Encounter]</td><td>Nelson Delarosa MD</td><td></td><td>08/04/2020</td><td>08/03/2020 4:37PM</td><td>08/03/2020 11:59PM</td><td></td>Outpatient Attender: Nelson Delarosa MD 0 08/03/2020 04:37:00 PM EST - 08/03/2020 11:59:00 PM EST SPUR ([facility]) <td ID="encounterTypeDescriptionID0">EXT ENDED VISIT</td><td>Nelson Delarosa MD</td><td>[facility],</td><td>08/03/2020</td><td>1:05PM</td><td>2:05PM</td><td><content ID="encounterDiagnosisID0-0">Chronic Pain</content>, <content ID="encounterDiagnosisID0-1">Pulmonary Embolism</content>, <content ID="encounterDiagnosisID0-2">Hemiplegia Flaccid Affecting Right Dominant Side</content></td>Outpatient Attender: Nelson Delarosa MD [facility],PC 08/03/2020 01:05:00 PM EST - 08/03/2020 02:05:00 PM ES T Hemiplegia Flaccid Affecting Right Dominant SidePulmonary EmbolismChronic PainHemiplegia Flaccid Affecting Right Dominant SidePulmonary EmbolismChronic PainHemiplegia Flaccid Affecting Right Dominant SidePulmonary EmbolismChronic Pain [place] ([facility]) Hemiplegia Flaccid Affecting Right Domin ant Side Pulmonary Embolism Chronic Pain Hemiplegia Flaccid Affecting Right Domin ant Side Pulmonary Embolism Chronic Pain Hemiplegia Flaccid Affecting Right Domin ant Side Pulmonary Embolism Chronic Pain Unknown [address] [facility] [address] 07/31/2020 12:00:00 AM EST eCW1 ([facility]) <td ID="encounterTypeDescriptionID1">HOS P I/P F/U</td><td>Nelson Delarosa MD</td><td>Family [facility],</td><td>07/28/2020</td><td>2:19PM</td><td>3:19PM</td><td><content ID="encounterDiagnosisID1-0">Hyperlipidemia</content>, <content ID="encounterDiagnosisID1-1">Chronic Pain</content>, <content ID="encounterDiagnosisID1-2">Restless Legs Syndrome</content>, <content ID="encounterDiagnosisID1-3">Venous Thrombosis Deep Vessels of Lower Extremity</content>, <content ID="encounterDiagnosisID1-4">Atrial Fibrillation Chronic</content>, <content ID="encounterDiagnosisID1-5">Stroke Syndrome</content>, <content ID="encounterDiagnosisID1-6">Anemia Macrocytic</content>, <content ID="encounterDiagnosisID1-7">Chronic Kidney Disease Stage 3</content>, <content ID="encounterDiagnosisID1-8">Congestive Heart Failure Systolic</content>, <content ID="encounterDiagnosisID1-9">Left Ventricular Hypertrophy</content></td>Outpatient Attender: Nelson Delarosa MD [facility], 07/28/2020 02:19:00 PM EST - 07/28/2020 03:19:00 PM EST Left Ventricular HypertrophyCongestive H eart Failure SystolicChronic Kidney Disease Stage 3Anemia MacrocyticStroke SyndromeAtrial Fibrillation ChronicVenous Thrombosis Deep Vessels of Lower ExtremityRestless Legs SyndromeChronic PainHyperlipidemiaLeft Ventricular HypertrophyCongestive Heart Failure SystolicChronic Kidney Disease Stage 3Anemia MacrocyticStroke SyndromeAtrial Fibrillation ChronicVenous Thrombosis Deep Vessels of Lower ExtremityRestless Legs SyndromeChronic PainHyperlipidemiaLeft Ventricular HypertrophyCongestive Heart Failure SystolicChronic Kidney Disease Stage 3Anemia MacrocyticStroke SyndromeAtrial Fibrillation ChronicVenous Thrombosis Deep V essels of Lower ExtremityRestless Legs SyndromeChronic PainHyperlipidemiaLeft Ventricular HypertrophyCongestive Heart Failure SystolicChronic Kidney Disease Stage 3Anemia MacrocyticStroke SyndromeAtrial Fibrillation ChronicVenous Thrombosis Deep Vessels of Lower ExtremityRestless Legs SyndromeChronic PainHyperlipidemia [place] ([facility]) Left Ventricular Hypertrophy Congestive Heart Failure Systolic Chronic Kidney Disease Stage 3 Anemia Macrocytic Stroke Syndrome Atrial Fibrillation Chronic Venous Thrombosis Deep Vessels of Lower Extremity Restless Legs Syndrome Chronic Pain Hyperlipidemia Left Ventricular Hypertrophy Congestive Heart Failure Systolic Chronic Kidney Disease Stage 3 Anemia Macrocytic Stroke Syndrome Atrial Fibrillation Chronic Venous Thrombosis Deep Vessels of Lower Extremity Restless Legs Syndrome Chronic Pain Hyperlipidemia Left Ventricular Hypertrophy Congestive Heart Failure Systolic Chronic Kidney Disease Stage 3 Anemia Macrocytic Stroke Syndrome Atrial Fibrillation Chronic Venous Thrombosis Deep Vessels of Lower Extremity Restless Legs Syndrome Chronic Pain Hyperlipidemia Left Ventricular Hypertrophy Congestive Heart Failure Systolic Chronic Kidney Disease Stage 3 Anemia Macrocytic Stroke Syndrome Atrial Fibrillation Chronic Venous Thrombosis Deep Vessels of Lower Extremity Restless Legs Syndrome Chronic Pain Hyperlipidemia Unknown [address] [facility] [address] 07/27/2020 12:00:00 AM EST eCW1 ([facility]) Outpatient [address] [facility] [address] 07/24/2020 12:00:00 AM EST eCW1 ([facility]) Unknown [address] [facility] [address] 07/24/2020 12:00:00 AM EST eCW1 ([facility]) ([id number]) For Template Leroy [address] [place] [address] 07/17/2020 12:00:00 AM EST eCW1 ([facility]) Outpatient Attender: NEYMAR HILARIO MD [facility] 07/14 02:45:00 PM EST MEDENT (Neymar Hilario MD) Outpatient Attender: Nelson Delarosa MDConsultant: PCP NO 07/14/2020 02:10:00 PM EST - 07/14/2020 03:10:00 PM EST [facility] (WND [id number]) New Patient 120 [address] [place] [address] 07/10/2020 12:00:00 AM EST eCW1 ([facility]) Unknown [address] [facility] [address] 06/29/2020 12:00:00 AM EST eCW1 ([facility]) Unknown [address] [facility] [address] 06/24/2020 12:00:00 AM EST eCW1 ([facility]) <td ID="encounterTypeDescriptionID2">RX UPDATE</td><td>Nelson Delarosa MD</td><td></td><td>07/20/2020</td><td>06/04/2020 3:12PM</td><td>06/04/2020 11:59PM</td><td></td>Outpatient Attender: Nelson Delarosa MD 0 06/04/2020 03:12:00 PM EST - 06/04/2020 11:59:00 PM EST SPUR ([facility]) Outpatient Attender: Nelson Chong masters: Nelson Delarosa MDConsultant: PCP NO 06/04/2020 03:06:00 PM EST - 06/04/2020 03:16:00 PM EST <td ID="encounterTypeDescriptionID3">EXT ENDED VISIT</td><td>Nelson Delarosa MD</td><td>[facility]</td><td>06/04/2020</td><td>1:16PM</td><td>2:53PM</td><td><content ID="encounterDiagnosisID3-0">Anemia Macrocytic</content>, <content ID="encounterDiagnosisID3-1">Edema</content>, <content ID="encounterDiagnosisID3-2">Stroke Syndrome</content>, <content ID="encounterDiagnosisID3-3">Assessment of Slurred Speech</content>, <content ID="encounterDiagnosisID3-4">Peripheral Vascular Disease</content></td>Outpatient Attender: Nelson Delarosa MD [facility] 06/04/2020 01:16:00 PM EST - 06/04/2020 02:53:00 PM ES T Peripheral Vascular DiseaseAssessment of Slurred SpeechStroke SyndromeEdemaAnemia MacrocyticPeripheral Vascular DiseaseAssessment of Slurred SpeechStroke SyndromeEdemaAnemia MacrocyticPeripheral Vascular DiseaseAssessment of Slurred SpeechStroke SyndromeEdemaAnemia MacrocyticPeripheral Vascular DiseaseAssessment of Slurred SpeechStroke SyndromeEdemaAnemia Macrocytic [place] ([facility]) Peripheral Vascular Disease Assessment of Slurred Speech Stroke Syndrome Edema Anemia Macrocytic Peripheral Vascular Disease Assessment of Slurred Speech Stroke Syndrome Edema Anemia Macrocytic Peripheral Vascular Disease Assessment of Slurred Speech Stroke Syndrome Edema Anemia Macrocytic Peripheral Vascular Disease Assessment of Slurred Speech Stroke Syndrome Edema Anemia Macrocytic <td ID="encounterTypeDescriptionID4">STA NDARD OV</td><td>Nelson Delarosa MD</td><td>[facility]</td><td>05/14/2020</td><td>10:25AM</td><td>11:21AM</td><td><content ID="encounterDiagnosisID4-0">Cellulitis</content></td>Outpatient Attender: Nelson Delarosa MD [facility] ER, 05/14/2020 10:25:00 AM EST - 05/14/2020 11:21:00 AM EST CellulitisCellulitisCellulitisCellulitisCellulitis [facility] ([facility]) Cellulitis Cellulitis Cellulitis Cellulitis Cellulitis Outpatient Attender: Nelson Delarosa MDConsultant: PCP NO 05/14/2020 09:53:00 AM EST - 05/14/2020 10:53:00 AM EST [facility] Outpatient Attender: Nelson SABILLONe masters: Nelson Delarosa MDConsultant: PCP NO 05/06/2020 03:43:00 PM EST - 05/06/2020 03:53:00 PM EST [facility] Patient discharged. Outpatient<td ID="encounterTypeDescripti onID5">EXTENDED VISIT</td><td>Nelson Delarosa MD</td><td>[facility]</td><td>05/06/2020</td><td>3:10PM</td><td>4:15PM</td><td><content ID="encounterDiagnosisID5-0">Cellulitis</content>, <content ID="encounterDiagnosisID5-1">Persistent Insomnia</content></td> Attender: Nelson Delarosa MD [facility] 05/06/2020 03:10:00 PM EST - 05/06/2020 04:15:00 PM EST Persistent InsomniaCellulitisPersistent InsomniaCellulitisPersistent InsomniaCellulitisPersistent InsomniaCellulitisPersistent InsomniaCellulitisPersistent InsomniaCellulitis SPUR ([facility]) Persistent Insomnia Cellulitis Persistent Insomnia Cellulitis Persistent Insomnia Cellulitis Persistent Insomnia Cellulitis Persistent Insomnia Cellulitis Persistent Insomnia Cellulitis <td ID="encounterTypeDescriptionID6">EXT ENDED VISIT</td><td>Nelson Delarosa MD</td><td>[facility]</td><td>04/28/2020</td><td>9:40AM</td><td>10:53AM</td><td><content ID="encounterDiagnosisID6-0">Chronic Pain</content>, <content ID="encounterDiagnosisID6-1">Atrial Fibrillation Chronic</content>, <content ID="encounterDiagnosisID6-2">Late Effects of Cerebral Infarction Aphasia</content></td>Outpatient Attender: Nelson Delarosa MD [facility], 04/28/2020 09:40:00 AM EST - 04/28/2020 10:53:00 AM ES T Late Effects of Cerebral Infarction AphasiaAtrial Fibrillation ChronicChronic PainLate Effects of Cerebral Infarction AphasiaAtrial Fibrillation ChronicChronic PainLate Effects of Cerebral Infarction AphasiaAtrial Fibrillation Chronic Chronic PainLate Effects of Cerebral Infarction AphasiaAtrial Fibrillation ChronicChronic PainLate Effects of Cerebral Infarction AphasiaAtrial Fibrillation ChronicChronic PainLate Effects of Cerebral Infarction Aphasia Atrial Fibrillation ChronicChronic PainLate Effects of Cerebral Infarction AphasiaAtrial Fibrillation ChronicChronic PainLate Effects of Cerebral Infarction AphasiaAtrial Fibrillation ChronicChronic Pain [facility] ([facility]) Late Effects of Cerebral Infarction Apha bonnie [...] Atrial Fibrillation Chronic Chronic Pain Outpatient<td ID="encounterTypeDescripti onID7">EXTENDED VISIT</td><td>Nelson Delarosa MD</td><td>[facility]</td><td>03/30/2020</td><td>1:03PM</td><td>2:36PM</td><td><content ID="encounterDiagnosisID7-0">Chronic Kidney Disease Stage 3</content>, <content ID="encounterDiagnosisID7-1">Atrial Fibrillation Chronic</content>, <content ID="encounterDiagnosisID7-2">Stroke Syndrome</content>, <content ID="encounterDiagnosisID7-3">Late Effects of Cerebral Infarction Aphasia</content>, <content ID="encounterDiagnosisID7-4">Edema</content></td> Attender: Nelson Delarosa MD [facility],PC 03/30/2020 01:03:00 PM EST - 03/30/2020 02:36:00 [...] Effects of Cerebral Infarction AphasiaStroke SyndromeAtrial Fibrillation Ch ronicChronic Kidney Disease Stage 3 [place] ([facility]) Edema Late Effects of Cerebral Infarction Apha [...] Fibrillation Chronic Chronic Kidney Disease Stage 3 Immunizations Vaccine Date Status Description Data Source(s) Note that this vaccine name has changed. See also Td (adult). It is not adsorbed. 06/04/2020 02:22:00 PM EST completed <td ID="Ttckkkareganw-Cmfvswmmihd-CJ4">Td</td><td ID="ImmunizationDose- 1">1</td><td>06/04/2020</td><td ID="Vigbmrbgkgdza-ShfmzOrrv-GT8"></td><td></td> <td ID="Ycxflbxgbvtcg-Dvvxvi-DK1">Complete (Refused - Patient objection)</td><td[facility]td><td ID="Ctmwboxkkonph-Iajtk-Ihdc-Comment-ID1"></td> [place] ([facility]) This CVX code allows reporting of a vacc ination when formulation is unknown (for example, when recording a Influenza vaccination when noted on a vaccination card) 06/04/2020 02:22:00 PM EST completed <td ID="Bvrctobvmhevm-Jcofzmsqnwd-HM0">Influenza,NOS</td><td ID="ImmunizationDose- 0">1</td><td>06/04/2020</td><td ID="Ompswgocquuza-PgjlwNcqi-AQ9"></td><td></td> <td ID="Rmtwnfegydvty-Icyglr-VD9">Complete (Refused - Patient objection)</td><td>[facility]</td><td ID="Tipriqjeahdbl-Kyskj-Prpj-Comment-ID0"></td> [place] ([facility]) Medications Medication Brand Name Start Date Product Form Dose Route Admi nistrative Instructions Pharmacy Instructions Status Indications Reaction Description Data Source(s) 8 HR Acetaminophen 650 MG Extended Release Oral Tablet 8 James r Pain Reliever 02/28/2021 12:00:00 AM EDT ORAL active [facility] ([facility]) quetiapine 50 MG Oral Tablet Quetiapine Fumarate 01/24/2021 12:00:00 AM EDT ORAL active [facility] ([facility]) torsemide 20 MG Oral Tablet Torsemide 12/25/2020 12:00:00 AM EDT ORAL active [facility] ([facility]) torsemide 20 MG Oral Tablet Torsemide 12/24/2020 12:00:00 AM EDT ORAL completed [facility] ([facility]) Docusate Sodium 50 MG / sennosides, SNF 8.6 MG Oral Tablet S chung-S 12/24/2020 12:00:00 AM EDT ORAL active M [facility]ENT ([facility]) Aspirin 81 MG Delayed Release Oral Tablet Aspirin 12/24/2020 1 2:00:00 AM EDT ORAL active [facility] ([facility]) carvedilol 6.25 MG Oral Tablet Carvedilol 12/24/2020 12:00:00 AM EDT ORAL active [facility] ([facility]) Aluminum Hydroxide 40 MG/ML / Magnesium Hydroxide 40 MG/ML / Simethicone 4 MG/ML Oral Suspension Wmrpcqn-Iljuvlna-Tlsbmpehnjj 12/24/2020 12:00:00 AM EDT ORAL completed [facility] ([facility]) 24 HR metoprolol succinate 50 MG Extended Release Oral Tablet Metoprolol Succinate ER 11/13/2020 12:00:00 AM EDT ORAL completed [facility] ([facility]) sacubitril 24 MG / valsartan 26 MG Oral Tablet [Entresto] En tresto 11/13/2020 12:00:00 AM EDT ORAL active M [facility] ([facility]) torsemide 20 MG Oral Tablet Torsemide 11/13/2020 12:00:00 AM EDT ORAL completed [facility] ([facility]) Acetaminophen 325 MG Oral Tablet [Tylenol] Tylenol 11/12/2020 12:00:00 AM EDT ORAL active [facility] ([facility]) Multi Vitamin 11/12/2020 12:00:00 AM EDT comp leted [facility] ([facility]) Magnesium Hydroxide 240 MG/ML Oral Suspension Milk Of Magnes ia Concentrate 11/12/2020 12:00:00 AM EDT ORAL active [facility] ([facility]) Bisacodyl 10 MG Rectal Suppository [Dulcolax] Dulcolax 11/12/2020 12:00:00 AM EDT active [facility] ([facility]) Sodium Phosphate, Dibasic 35.5 MG/ML / S odium Phosphate, Monobasic 96.4 MG/ML Enema Enema Disposable 11/12/2020 12:00:00 AM EDT active [facility] ([facility]) Acetaminophen 650 MG Rectal Suppository Acetaminophen 11/12/2020 12:00:00 AM EDT completed [facility] ([facility]) Calcium Carbonate 1500 MG Oral Tablet Calcium 600 11/12/2020 12:00 :00 AM EDT ORAL completed [facility] ([facility]) apixaban 5 MG Oral Tablet [Eliquis] Eliquis 11/12/2020 12:00:00 AM E DT ORAL active [facility] ([facility]) atorvastatin 20 MG Oral Tablet Atorvastatin Calcium 11/12/2020 1 2:00:00 AM EDT ORAL active [facility] ( [facility]) gabapentin 600 MG Oral Tablet Gabapentin 11/12/2020 12:00:00 AM EDT ORAL active [facility] ([facility]) Trazodone Hydrochloride 50 MG Oral Tablet Trazodone HCL 11/12/2020 12:00:00 AM EDT ORAL completed [facility] ([facility]) pantoprazole 40 MG Delayed Release Oral Tablet Pantoprazole Sodium 11/12/2020 12:00:00 AM EDT ORAL active M [facility] ([facility]) Pramipexole dihydrochloride 1 MG Oral Tablet Pramipexole Dih ydrochloride 11/12/2020 12:00:00 AM EDT ORAL active [facility] ([facility]) Enalapril Maleate 5 MG Oral Tablet Enalapril Maleate 11/12/2020 12:00:00 AM EDT ORAL completed [facility] ([facility]) quetiapine 50 MG Oral Tablet Quetiapine Fumarate 11/12/2020 12:00:00 AM EDT ORAL completed [facility] ([facility]) carvedilol 6.25 MG Oral Tablet Carvedilol 11/12/2020 12:00:00 AM EDT ORAL completed [facility] ([facility]) Bumetanide 1 MG Oral Tablet [Bumex] Bumex 11/12/2020 12:00:00 AM EDT ORAL completed [facility] ([facility]iol [facility]) Bumetanide 1 MG Oral Tablet Bumetanide 08/20/2020 12:00:00 AM EDT active [facility] (Neymar Hilario MD) Trazodone Hydrochloride 50 MG Oral Tablet Trazodone HCL 08/20/2020 12:00:00 AM EDT ORAL active [facility] (Mindy Hilario MD) dronedarone 400 MG Oral Tablet [Multaq] Multaq 08/20/2020 12:00:0 0 AM EDT ORAL active [facility] (Mindy Hilario MD) iopamidol (ISOVUE-300) 61 % injection [id number] 08/07/2020 02:25:36 PM EST active As needed, Starting 08/07 at 1425, Intra-Procedure [facility] Medication administered onsite iodixanol (VISIPAQUE) 270 MG/ML injection [id number] 08/07/2020 02:22 :07 PM EST active As needed, Starting Mon08/07/20 at 1422, Intra-Procedure [facility] Medication administered onsite 2 ML Midazolam 1 MG/ML Injection midazolam (VERSED) in jection midazolam (VERSED) injection 08/07/2020 01:47:56 PM EST active As needed, Starting Mon08/07/20 at 1347, Intra-Procedure [facility] Medication administered onsite lidocaine (PF) (XYLOCAINE-MPF) 1 % injection [id number] 04/2021 01:47:55 PM EST active As needed, Start ing Mon08/07/20 at 1347, IntraProcedure [facility] Medication administered onsite fentaNYL Citrate (PF) (SUBLIMAZE) injection [id number] 08/07/2020 01:47:47 PM EST active As neede d, Starting Mon08/07/20 at 1347, Intra-Procedure [facility] Medication administered onsite Cefazolin 1000 MG Injection ceFAZolin (ANCEF) injectio n ceFAZolin (ANCEF) injection 08/07/2020 01:41:35 PM EST active As needed, Starting Mon08/07/20 at 1341, Intra-Procedure [facility] Medication administered onsite pantoprazole 40 MG Delayed Release Oral Tablet pantoprazole (PROTONIX) EC tablet 40 mg pantoprazole (PROTONIX) EC tablet 40 mg 08/07/2020 09:00:[address] 40 mg Oral active Gastroesophageal Reflux Diseas e 40 mg, Oral, Daily, Indications: Gastroesophageal Reflux Disease, First dose on Mon08/07/20 at 0900 [facility] Gastroesophageal Reflux Disease Medication administered onsite Magnesium Chloride 0.88500 MEQ/ML / Pota ssium Chloride 0.0497 MEQ/ML / Sodium Acetate 0.0163 MEQ/ML / Sodium Chloride 0.0899 MEQ/ML / Sodium gluconate 5.02 MG/ML Injectable Solution [Normosol-R] electrolyte-R (NORMOSOL-R/PLASMALYTE-R) solution electrolyte-R (NORMOSOL-R/PLASMALYTE-R) solution 08/07 04:00:00 AM EST Intravenous aborted at 3 0 mL/hr, Intravenous, Continuous, Starting Mon08/07/20 at 0400, Pre-op [facility] Medication administered onsite cefazolin (ANCEF) injection 2 g 08/07/2020 12:00:00 AM EST 2 g Intravenous completed Perioperative Pharmacoprophylaxis 2 g, Intravenous, Administer over 6 Minutes, call worker, Mon08/07/20 at 0000, For 1 dose, Pre-op
Use 2 gm for patients less than 120 kg Use 3 gm for patients greater than or equal to 120 kg RN may administer IV push or infuse this medication through syringe adapter set ref [id number]. Flush line after use
[facility] Perioperative Pharmacoprophylaxis Medication administered onsite Levetiracetam 500 MG Oral Tablet levETIRAcetam (KEPPRA ) tablet 750 mg levETIRAcetam (KEPPRA) tablet 750 mg 08/06/2020 09:00:00 PM EST 750 m g Oral active 750 mg, Oral, 2 times daily, First dose on Mon08/06/20 at 2100 [facility] Medication administered onsite Pramipexole dihydrochloride 1 MG Oral Tablet pramipexo le (MIRAPEX) tablet 1 mg pramipexole (MIRAPEX) tablet 1 mg 08/06/2020 09:00:00 PM EST 1 mg Oral active 1 mg, Oral, 2 times daily, First dose on Mon08/06/20 at 2100 [facility] Medication administered onsite Carboxymethylcellulose 0.01 MG/MG Ophtha lmic Gel carboxymethylcellulose sod PF (REFRESH CELLVISC) 1 % ophthalmic 2 drop carboxymethylcellulose sod PF (REFRESH CELLVISC) 1 % ophthalmic 2 drop 08/06/2020 09:00:00 PM EST 2 [drp] active 2 drop, Left Eye, 3 times daily, First dose on Mon08/06/20 at 2100 [facility] Medication administered onsite Diltiazem Hydrochloride 30 MG Oral Tablet diltiazem (C ARDIZEM) tablet 30 mg diltiazem (CARDIZEM) tablet 30 mg 08/06/2020 09:00:00 PM EST 30 mg Oral active 30 mg, Oral, 3 times daily, First dose on Mon08/06/20 at 2100
Hold for SBP <100 or HR <60
[facility] Medication administered onsite duloxetine 30 MG Delayed Release Oral Ca psule DULoxetine (CYMBALTA) DR capsule 30 mg DULoxetine (CYMBALTA) DR capsule 30 mg 08/06/2020 09:00:00 PM EST 30 mg Oral active 30 mg, Oral, 2 times daily, First dose on Mon08/06/20 at 2100 [facility] Medication administered onsite Acetaminophen 325 MG / Hydrocodone Karissa trate 5 MG Oral Tablet HYDROcodone- acetaminophen (NORCO) 5-325 MG per tablet 1 tablet HYDROcodone-acetaminophen (NORCO) 5-325 MG per tablet 1 tablet 08/06/2020 09:00:00 PM EST 1 { tbl} Oral active 1 tablet, Oral, 2 times daily, First dose on Mon08/06/20 at 2100, For 7 days [facility] Medication administered onsite atorvastatin 20 MG Oral Tablet atorvastatin (LIPITOR) tablet 20 mg atorvastatin (LIPITOR) tablet 20 mg 08/06/2020 09:00:00 PM EST 20 mg Oral active 20 mg, Oral, Nightly, First dose on Aggie 08/06/20 at 2100 [facility] Medication administered onsite quetiapine 100 MG Oral Tablet QUEtiapine (SEROquel) ta blet 100 mg QUEtiapine (SEROquel) tablet 100 mg 08/06/2020 08:00:00 PM EST 100 mg Oral active 100 mg, Oral, Nightly, First dose on Aggie 08/06/20 at 20 00 [facility] Medication administered onsite quetiapine 25 MG Oral Tablet QUEtiapine (SEROquel) tab let 50 mg QUEtiapine (SEROquel) tablet 50 mg 08/06/2020 08:00:00 PM EST 50 mg Oral active 50 mg, Oral, Nightly, First dose on Aggie 08/06/20 at 2000 [facility] Medication administered onsite gabapentin 300 MG Oral Capsule gabapentin (NEURONTIN) capsule 300 mg gabapentin (NEURONTIN) capsule 300 mg 08/06/2020 06:00:00 PM EST 300 mg Oral active 300 mg, Oral, 3 times daily, First dose on Aggie 08/06/20 at 1800 [facility] Medication administered onsite Citalopram 20 MG Oral Tablet citalopram (CeleXA) table t 20 mg citalopram (CeleXA) tablet 20 mg 08/06/2020 06:00:00 PM EST 20 mg Oral active 20 mg, Oral, Daily, First dose on Aggie 08/06/20 at 1800 [facility] Medication administered onsite Furosemide 40 MG Oral Tablet furosemide (LASIX) tablet 40 mg furosemide (LASIX) tablet 40 mg 08/06/2020 05:00:00 PM EST 40 mg Oral activ e 40 mg, Oral, Every morning, First dose on Aggie 08/06/20 at 1700 [facility] Medication administered onsite carvedilol 3.125 MG Oral Tablet carvedilol (COREG) tab let 3.125 mg carvedilol (COREG) tablet 3.125 mg 08/06/2020 05:00:00 PM EST 3.125 mg Oral active 3.125 mg, Oral, 2 times daily, First dos e on Aggie 08/06/20 at 1700
Hold for SBP <100 or HR <60
[facility] Medication administered onsite sennosides, SNF 8.6 MG Oral Tablet senna (SENOKOT) tab let 8.6 mg senna (SENOKOT) tablet 8.6 mg 08/06/2020 03:40:05 PM EST 8.6 mg Oral act mariana 8.6 mg, Oral, Nightly PRN, constipation, Starting Aggie 08/06/20 at 1540
Hold for loose stools. If patient is unable to swallow the tablet, nursing should crush and dissolve tablet in 10-15 ml of water prior to administration
[facility] Medication administered onsite heparin (porcine) injection 5,000 Units [id number] 08/07/19 03:10:00 PM EST 5000 U Subcutaneous active 5,000 Units , Subcutaneous, Every 8 hours (scheduled), First dose on Aggie 08/06/20 at 1510
If platelet count is less than 100,000 or hematocrit is less than 30, or if there is a 5 point decrease in hematocrit, do not give the dose and call physician/designee.
[facility] Medication administered onsite normal saline flush 0.9 % injection 3 mL [id number] 08/06/2020 03:10:00 PM EST 3 mL Intravenous active 3 mL , Intravenous, Every 8 hours (scheduled), First dose on Aggie 08/06/20 at 1510
flush per protocol, D/C Main IV fluid if appropriate
[facility] Medication administered onsite buspirone hydrochloride 5 MG Oral Tablet busPIRone (BU SPAR) tablet 5 mg busPIRone (BUSPAR) tablet 5 mg 08/06/2020 03:10:00 PM EST 5 mg Or al active 5 mg, Oral, 3 times daily, First dose on Aggie 08/06/20 at 1510 [facility] Medication administered onsite Magnesium Hydroxide 80 MG/ML Oral Suspen pema magnesium hydroxide (MILK OF MAGNESIA) 400 MG/5ML suspension 30 mL magnesium hydroxide (MILK OF MAGNESIA) 4 00 MG/5ML suspension 30 mL 08/06/2020 02:53:53 PM EST 30 mL Oral active 30 mL, Oral, Daily PRN, constipation, Starting Aggie 08/06/20 at 1453
hold for loose stools
[facility] Medication administered onsite quetiapine 100 MG Oral Tablet [Seroquel] SEROquel 100 MG Oral Tablet SEROquel 100 MG Oral Tablet 08/03/2020 12:00:00 AM EST 1 active quetiapine 100 MG Oral Tablet [Seroquel] [facility]) Acetaminophen 325 MG / Hydrocodone Karissa trate 5 MG Oral Tablet HYDROcodone- Acetaminophen 5-325 MG Oral Tablet HYDROcodone-Acetaminophen 5-325 MG Oral Tablet 08/03/2020 12:00:00 AM EST active acetaminophen 325 MG / hydrocodone bitartrate 5 MG Oral Tablet [facility]) carvedilol 3.125 MG Oral Tablet [Coreg] Coreg 3.125 MG Oral Tablet Coreg 3.125 MG Oral Tablet 08/03/2020 12:00:00 AM EST act mariana carvedilol 3.125 MG Oral Tablet [Coreg] [facility]) atorvastatin 20 MG Oral Tablet Atorvastatin Calcium 20 MG Oral Tablet Atorvastatin Calcium 20 MG Oral Tablet 07/28/2020 12:00:00 AM EST active atorvastatin 20 MG Oral [facility] gabapentin 600 MG Oral Tablet Gabapentin 600 MG Oral T ablet Gabapentin 600 MG Oral Tablet 07/28/2020 12:00:00 AM EST active gabapentin 600 MG Oral Tablet [facility]) gabapentin 300 MG Oral Capsule Gabapentin 300 MG Oral Capsule Gabapentin 300 MG Oral Capsule 07/28/2020 12:00:00 AM EST activ e gabapentin 300 MG Oral Capsule [facility]) Carboxymethylcellulose Sodium 5 MG/ML Op hthalmic Solution Refresh Tears 0.5% Ophthalmic Solution Refresh Tears 0.5% Ophthalmic Solution 07/28/2020 12:0 0:00 AM EST active carboxym ethylcellulose sodium 5 MG/ML Ophthalmic Solution [facility]) duloxetine 30 MG Delayed Release Oral Ca psule [Cymbalta] Cymbalta 30 MG Oral Capsule Delayed Release Particles Cymbalta 30 MG Oral Capsule Delayed Rele ase Particles 07/28/2020 12:00:00 AM EST active duloxetine 30 MG Delayed Release Oral Capsule [Cymbalta] [facility]) Diltiazem Hydrochloride 30 MG Oral Tablet dilTIAZem HC l 30 MG Oral Tablet dilTIAZem HCl 30 MG Oral Tablet 07/28/2020 12:00:00 AM EST active diltiazem hydrochloride 30 MG Oral Tablet [facility]) Furosemide 20 MG Oral Tablet [Lasix] Lasix 20 MG Oral Tablet Lasix 20 MG Oral Tablet 07/28/2020 12:00:00 AM EST active furosemide 20 MG Oral Tablet [Lasix] [facility]) Pramipexole dihydrochloride 1 MG Oral Tablet [Mirapex] Mirapex 1 MG Oral Tablet Mirapex 1 MG Oral Tablet 07/28/2020 12:00:00 AM EST active pramipexole dihydrochloride 1 MG Oral Tablet [Mirapex] [facility]) quetiapine 50 MG Oral Tablet QUEtiapine Fumarate 50 MG Oral Tablet QUEtiapine Fumarate 50 MG Oral Tablet 07/28/2020 12:00:00 AM EST active quetiapine 50 MG Oral Tablet [facility]) pantoprazole 40 MG Delayed Release Oral Tablet Pantoprazole Sodium 40 MG Oral Tablet Delayed Release Pantoprazole Sodium 40 MG Oral Tablet Delayed Release 07/28/2020 12:00:00 AM EST active pantoprazole 40 MG Delayed Release Oral Tablet [facility]) rivaroxaban 20 MG Oral Tablet [Xarelto] Xarelto 20 MG Oral Tablet Xarelto 20 MG Oral Tablet 07/28/2020 12:00:00 AM EST active rivaroxaban 20 MG Oral Tablet [Xarelto] [facility]) Acetaminophen 325 MG Oral Tablet Acetaminophen 325 MG Oral T ablet 07/28/2020 12:00:00 AM EST active acetamin ophen 325 MG Oral Tablet [facility] ([facility]) Senna 8.6 MG Oral Tablet Senna 8.6 MG Oral Tablet 07/28/2020 12:00: 00 AM EST active Senna [facility] ([facility]) Aspercreme Lidocaine 4% External Patch Aspercreme Lidocaine 4% External Patch 07/28/2020 12:00:00 AM EST active lidocaine 0.04 MG/MG Medicated Patch [facility] ([facility]) Citalopram 20 MG Oral Tablet Citalopram Hydrobromide 2 0 MG Oral Tablet Citalopram Hydrobromide 20 MG Oral Tablet 07/28/2020 12:00:00 AM EST active citalopram 20 MG Oral Tablet [facility]) Senna 8.6 MG Oral Tablet Senna 8.6 MG Oral Tablet 07/21/2020 12:00: 00 AM EST aborted Senna [facility] ([facility]) rivaroxaban 20 MG Oral Tablet [Xarelto] Xarelto 20 MG Oral Tablet Xarelto 20 MG Oral Tablet 07/20/2020 12:00:00 AM EST aborte d rivaroxaban 20 MG Oral Tablet [Xarelto] [facility]) Acetaminophen 325 MG / Hydrocodone Karissa trate 5 MG Oral Tablet HYDROcodone- Acetaminophen 5-325 MG Oral Tablet HYDROcodone-Acetaminophen 5-325 MG Oral Tablet 07/20/2020 12:00:00 AM EST aborted acetaminophen 325 MG / hydrocodone bitartrate 5 MG Oral Tablet [facility]) gabapentin 300 MG Oral Capsule Gabapentin 300 MG Oral Capsule Gabapentin 300 MG Oral Capsule 07/20/2020 12:00:00 AM EST abort ed gabapentin 300 MG Oral Capsule [facility]) atorvastatin 20 MG Oral Tablet Atorvastatin Calcium 20 MG Oral Tablet Atorvastatin Calcium 20 MG Oral Tablet 07/20/2020 12:00:00 AM EST aborted atorvastatin 20 MG Oral Tablet [facility] carvedilol 3.125 MG Oral Tablet Carvedilol 07/14/2020 12:00:00 AM EST ORAL active MEDENT (Neymar Hilario MD) Levofloxacin 500 MG Oral Tablet [Levaquin] Levaquin 50 0 MG Oral Tablet Levaquin 500 MG Oral Tablet 06/12/2020 12:00:00 AM EST aborted levofloxacin 500 MG Oral Tablet [Levaquin] [facility]) atorvastatin 20 MG Oral Tablet [Lipitor] Lipitor 20 MG Oral Tablet Lipitor 20 MG Oral Tablet 06/04/2020 12:00:00 AM EST abort ed atorvastatin 20 MG Oral Tablet [Lipitor] [facility]) Carboxymethylcellulose Sodium 5 MG/ML Op hthalmic Solution Refresh Tears 0.5% Ophthalmic Solution Refresh Tears 0.5% Ophthalmic Solution 06/04/2020 12:0 0:00 AM EST aborted carboxym ethylcellulose sodium 5 MG/ML Ophthalmic Solution [facility]) Citalopram 20 MG Oral Tablet Citalopram Hydrobromide 2 0 MG Oral Tablet Citalopram Hydrobromide 20 MG Oral Tablet 06/04/2020 12:00:00 AM EST aborted citalopram 20 MG Oral Tablet GRE [facility]) Aspercreme Lidocaine 4% External Patch Aspercreme Lidocaine 4% External Patch 06/04/2020 12:00:00 AM EST aborted lidocaine 0.04 MG/MG Medicated Patch [facility]) Pramipexole dihydrochloride 1 MG Oral Tablet [Mirapex] Mirapex 1 MG Oral Tablet Mirapex 1 MG Oral Tablet 06/04/2020 12:00:00 AM EST aborted pramipexole dihydrochloride 1 MG Oral Tablet [Mirapex] [facility]) rivaroxaban 20 MG Oral Tablet [Xarelto] Xarelto 20 MG Oral Tablet Xarelto 20 MG Oral Tablet 06/04/2020 12:00:00 AM EST aborte d rivaroxaban 20 MG Oral Tablet [Xarelto] [facility]) Senna 8.6 MG Oral Tablet Senna 8.6 MG Oral Tablet 06/04/2020 12:00: 00 AM EST aborted Senna [facility]) Acetaminophen 325 MG Oral Tablet Acetaminophen 325 MG Oral T ablet 06/04/2020 12:00:00 AM EST aborted acetami nophen 325 MG Oral Tablet SP[facility] ([facility]) Diltiazem Hydrochloride 30 MG Oral Tablet dilTIAZem HC l 30 MG Oral Tablet dilTIAZem HCl 30 MG Oral Tablet 06/04/2020 12:00:00 AM EST aborted diltiazem hydrochloride 30 MG Oral Tablet [facility] ([facility]) duloxetine 30 MG Delayed Release Oral Ca psule [Cymbalta] Cymbalta 30 MG Oral Capsule Delayed Release Particles Cymbalta 30 MG Oral Capsule Delayed Rele ase Particles 06/04/2020 12:00:00 AM EST aborted duloxetine 30 MG Delayed Release Oral Capsule [Cymbalta] [facility] ([facility]) gabapentin 300 MG Oral Capsule Gabapentin 300 MG Oral Capsule Gabapentin 300 MG Oral Capsule 06/04/2020 12:00:00 AM EST abort ed gabapentin 300 MG Oral Capsule [facility]) pantoprazole 40 MG Delayed Release Oral Tablet Pantoprazole Sodium 40 MG Oral Tablet Delayed Release Pantoprazole Sodium 40 MG Oral Tablet Delayed Release 06/04/2020 12:00:00 AM EST aborted pantoprazole 40 MG Delayed Release Oral Tablet [facility]) Mupirocin 0.02 MG/MG Topical Ointment Mupirocin 2% Ext ernal Ointment Mupirocin 2% External Ointment 06/04/2020 12:00:00 AM EST aborted mupirocin 0.02 MG/MG Topical Ointment [facility]) quetiapine 50 MG Oral Tablet QUEtiapine Fumarate 50 MG Oral Tablet QUEtiapine Fumarate 50 MG Oral Tablet 06/04/2020 12:00:00 AM EST aborted quetiapine 50 MG Oral Tablet [facility]) Acetaminophen 325 MG / Hydrocodone Karissa trate 5 MG Oral Tablet HYDROcodone- Acetaminophen 5-325 MG Oral Tablet HYDROcodone-Acetaminophen 5-325 MG Oral Tablet 06/04/2020 12:00:00 AM EST aborted acetaminophen 325 MG / hydrocodone bitartrate 5 MG Oral Tablet [facility]) Furosemide 20 MG Oral Tablet [Lasix] Lasix 20 MG Oral Tablet Lasix 20 MG Oral Tablet 06/04/2020 12:00:00 AM EST aborted furosemide 20 MG Oral Tablet [Lasix] [facility]) pantoprazole 40 MG Delayed Release Oral Tablet Pantoprazole Sodium 40 MG Oral Tablet Delayed Release Pantoprazole Sodium 40 MG Oral Tablet Delayed Release 05/25/2020 12:00:00 AM EST aborted pantoprazole 40 MG Delayed Release Oral Tablet [facility]) Amoxicillin 875 MG / Clavulanate 125 MG Oral Tablet Amoxicillin-Pot Clavulanate 875-125 MG Oral Tablet Amoxicillin-Pot Clavulanate 875-125 MG Oral Tablet 05/06/2020 12:00:00 AM EST aborted amoxicillin 875 MG / clavulanate 125 MG Oral Tablet [facility]) Mupirocin 0.02 MG/MG Topical Ointment Mupirocin 2% Ext ernal Ointment Mupirocin 2% External Ointment 05/06/2020 12:00:00 AM EST aborted mupirocin 0.02 MG/MG Topical Ointment [facility]) Acetaminophen 325 MG / Hydrocodone Karissa trate 5 MG Oral Tablet HYDROcodone- Acetaminophen 5-325 MG Oral Tablet HYDROcodone-Acetaminophen 5-325 MG Oral Tablet 04/28/2020 12:00:00 AM EST aborted acetaminophen 325 MG / hydrocodone bitartrate 5 MG Oral Tablet [facility]) LUIS M Elastic Bandage 4" Miscellaneous LUIS M Elastic Bandage 4" Miscellaneous 04/06/2020 12:00:00 AM EST aborted LUIS M Elastic Bandage 4" SPUR ([facility]) rivaroxaban 20 MG Oral Tablet [Xarelto] Xarelto 20 MG Oral Tablet Xarelto 20 MG Oral Tablet 04/06/2020 12:00:00 AM EST aborte d rivaroxaban 20 MG Oral Tablet [Xarelto] [facility]) Senna 8.6 MG Oral Tablet Senna 8.6 MG Oral Tablet 04/06/2020 12:00: 00 AM EST aborted Senna SP[facility] ([facility]) buspirone hydrochloride 5 MG Oral Tablet busPIRone HCl 5 MG Oral Tablet busPIRone HCl 5 MG Oral Tablet 04/06/2020 12:00:00 AM EST 1 aborted buspirone hydrochloride 5 MG Oral Tablet [facility]) Citalopram 20 MG Oral Tablet Citalopram Hydrobromide 2 0 MG Oral Tablet Citalopram Hydrobromide 20 MG Oral Tablet 04/06/2020 12:00:00 AM EST aborted [facility] 20 [facility] duloxetine 30 MG Delayed Release Oral Ca psule [Cymbalta] Cymbalta 30 MG Oral Capsule Delayed Release Particles Cymbalta 30 MG Oral Capsule Delayed Rele ase Particles 04/06/2020 12:00:00 AM EST aborted duloxetine 30 MG Delayed Release Oral Capsule [Cymbalta] [facility]) Diltiazem Hydrochloride 30 MG Oral Tablet dilTIAZem HC l 30 MG Oral Tablet dilTIAZem HCl 30 MG Oral Tablet 04/06/2020 12:00:00 AM EST aborted diltiazem hydrochloride 30 MG Oral Tablet [facility]) Acetaminophen 325 MG Oral Tablet Acetaminophen 325 MG Oral T ablet 04/06/2020 12:00:00 AM EST aborted acetami nophen 325 MG Oral Tablet [facility]) Aspercreme Lidocaine 4% External Patch Aspercreme Lidocaine 4% External Patch 04/06/2020 12:00:00 AM EST aborted lidocaine 0.04 MG/MG Medicated Patch [facility]) gabapentin 300 MG Oral Capsule Gabapentin 300 MG Oral Capsule Gabapentin 300 MG Oral Capsule 04/06/2020 12:00:00 AM EST abort ed gabapentin 300 MG Oral Capsule [facility]) Carboxymethylcellulose Sodium 5 MG/ML Op hthalmic Solution Refresh Tears 0.5% Ophthalmic Solution Refresh Tears 0.5% Ophthalmic Solution 04/06/2020 12:0 0:00 AM EST aborted carboxym ethylcellulose sodium 5 MG/ML Ophthalmic Solution [facility]) Levetiracetam 750 MG Oral Tablet [Keppra] Keppra 750 M G Oral Tablet Keppra 750 MG Oral Tablet 04/06/2020 12:00:00 AM EST abo rted levetiracetam 750 MG Oral Tablet [Keppra] [facility]) Acetaminophen 325 MG / Hydrocodone Karissa trate 5 MG Oral Tablet HYDROcodone- Acetaminophen 5-325 MG Oral Tablet HYDROcodone-Acetaminophen 5-325 MG Oral Tablet 04/06/2020 12:00:00 AM EST aborted acetaminophen 325 MG / hydrocodone bitartrate 5 MG Oral Tablet SP[facility] ([facility]) Carboxymethylcellulose Sodium 5 MG/ML Op hthalmic Solution Refresh Tears 0.5% Ophthalmic Solution Refresh Tears 0.5% Ophthalmic Solution 04/06/2020 12:0 0:00 AM EST aborted carboxym ethylcellulose sodium 5 MG/ML Ophthalmic Solution [facility]) Furosemide 20 MG Oral Tablet [Lasix] Lasix 20 MG Oral Tablet Lasix 20 MG Oral Tablet 04/06/2020 12:00:00 AM EST aborted furosemide 20 MG Oral Tablet [Lasix] [facility]) atorvastatin 20 MG Oral Tablet [Lipitor] Lipitor 20 MG Oral Tablet Lipitor 20 MG Oral Tablet 04/06/2020 12:00:00 AM EST abort ed atorvastatin 20 MG Oral Tablet [Lipitor] [facility]) Pramipexole dihydrochloride 1 MG Oral Tablet [Mirapex] Mirapex 1 MG Oral Tablet Mirapex 1 MG Oral Tablet 04/06/2020 12:00:00 AM EST aborted pramipexole dihydrochloride 1 MG Oral Tablet [Mirapex] [facility]) Melatonin 5 MG Oral Tablet Melatonin 5 MG Oral Tablet 2019 12:00:00 AM EST aborted melatonin 5 MG O ral Tablet [facility]) quetiapine 50 MG Oral Tablet QUEtiapine Fumarate 50 MG Oral Tablet QUEtiapine Fumarate 50 MG Oral Tablet 04/06/2020 12:00:00 AM EST aborted quetiapine 50 MG Oral Tablet [facility]) pantoprazole 40 MG Delayed Release Oral Tablet [Protonix] Protonix 40 MG Oral Tablet Delayed Release Protonix 40 MG Oral Tablet Delayed Release 04/06/2020 12:00:00 AM EST aborted pantoprazole 40 MG Delayed Release Oral Tablet [Protonix] [facility]) Acetaminophen 325 MG / Hydrocodone Karissa trate 5 MG Oral Tablet HYDROcodone- Acetaminophen 5-325 MG Oral Tablet HYDROcodone-Acetaminophen 5-325 MG Oral Tablet 03/30/2020 12:00:00 AM EST 1 aborted acetaminophen 325 MG / hydrocodone bitartrate 5 MG Oral Tablet [facility]) LUIS M Elastic Bandage 4" Miscellaneous LUIS M Elastic Bandage 4" Miscellaneous 03/16/2020 12:00:00 AM EDT aborted LUIS M Elastic Bandage 4" SP[facility] ([facility]) Senna 8.6 MG Oral Tablet Senna 8.6 MG Oral Tablet 03/06/2020 12:00: 00 AM EDT aborted Senna [facility] ([facility]) Carboxymethylcellulose Sodium 5 MG/ML Op hthalmic Solution Refresh Tears 0.5% Ophthalmic Solution Refresh Tears 0.5% Ophthalmic Solution 03/06/2020 12:0 0:00 AM EDT aborted carboxym ethylcellulose sodium 5 MG/ML Ophthalmic Solution [facility]) rivaroxaban 20 MG Oral Tablet [Xarelto] Xarelto 20 MG Oral Tablet Xarelto 20 MG Oral Tablet 03/06/2020 12:00:00 AM EDT aborte d rivaroxaban 20 MG Oral Tablet [Xarelto] [facility]) pantoprazole 40 MG Delayed Release Oral Tablet [Protonix] Protonix 40 MG Oral Tablet Delayed Release Protonix 40 MG Oral Tablet Delayed Release 03/06/2020 12:00:00 AM EDT aborted pantoprazole 40 MG Delayed Release Oral Tablet [Protonix] [facility]) Pramipexole dihydrochloride 1 MG Oral Tablet [Mirapex] Mirapex 1 MG Oral Tablet Mirapex 1 MG Oral Tablet 03/06/2020 12:00:00 AM EDT aborted pramipexole dihydrochloride 1 MG Oral Tablet [Mirapex] [facility]) Acetaminophen 325 MG Oral Tablet Acetaminophen 325 MG Oral T ablet 03/06/2020 12:00:00 AM EDT aborted acetami nophen 325 MG Oral Tablet [facility]) quetiapine 50 MG Oral Tablet QUEtiapine Fumarate 50 MG Oral Tablet QUEtiapine Fumarate 50 MG Oral Tablet 03/06/2020 12:00:00 AM EDT aborted quetiapine 50 MG Oral Tablet [facility]) Melatonin 5 MG Oral Tablet Melatonin 5 MG Oral Tablet 2019 12:00:00 AM EDT aborted melatonin 5 MG O ral Tablet [facility]) duloxetine 30 MG Delayed Release Oral Ca psule [Cymbalta] Cymbalta 30 MG Oral Capsule Delayed Release Particles Cymbalta 30 MG Oral Capsule Delayed Rele ase Particles 03/06/2020 12:00:00 AM EDT aborted duloxetine 30 MG Delayed Release Oral Capsule [Cymbalta] [facility]) Citalopram 20 MG Oral Tablet Citalopram Hydrobromide 2 0 MG Oral Tablet Citalopram Hydrobromide 20 MG Oral Tablet 03/06/2020 12:00:00 AM EDT aborted citalopram 20 MG Oral Tablet [facility]) Furosemide 20 MG Oral Tablet [Lasix] Lasix 20 MG Oral Tablet Lasix 20 MG Oral Tablet 03/06/2020 12:00:00 AM EDT aborted furosemide 20 MG Oral Tablet [Lasix] [facility]) Diltiazem Hydrochloride 30 MG Oral Tablet dilTIAZem HC l 30 MG Oral Tablet dilTIAZem HCl 30 MG Oral Tablet 03/06/2020 12:00:00 AM EDT aborted diltiazem hydrochloride 30 MG Oral Tablet [facility]) Aspercreme Lidocaine 4% External Patch Aspercreme Lidocaine 4% External Patch 03/06/2020 12:00:00 AM EDT aborted lidocaine 0.04 MG/MG Medicated Patch [facility]) buspirone hydrochloride 5 MG Oral Tablet busPIRone HCl 5 MG Oral Tablet busPIRone HCl 5 MG Oral Tablet 03/06/2020 12:00:00 AM EDT 1 aborted buspirone hydrochloride 5 MG Oral Tablet [facility]) atorvastatin 20 MG Oral Tablet [Lipitor] Lipitor 20 MG Oral Tablet Lipitor 20 MG Oral Tablet 03/06/2020 12:00:00 AM EDT abort ed atorvastatin 20 MG Oral Tablet [Lipitor] [facility]) Levetiracetam 750 MG Oral Tablet [Keppra] Keppra 750 M G Oral Tablet Keppra 750 MG Oral Tablet 03/06/2020 12:00:00 AM EDT abo rted levetiracetam 750 MG Oral Tablet [Keppra] [facility] ([facility]) gabapentin 300 MG Oral Capsule Gabapentin 300 MG Oral Capsule Gabapentin 300 MG Oral Capsule 03/06/2020 12:00:00 AM EDT 1 abort ed gabapentin 300 MG Oral Capsule [facility] ([facility]) Acetaminophen 325 MG / Hydrocodone Karissa trate 5 MG Oral Tablet HYDROcodone- Acetaminophen 5-325 MG Oral Tablet HYDROcodone-Acetaminophen 5-325 MG Oral Tablet 03/04/2020 12:00:00 AM EDT 1 aborted acetaminophen 325 MG / hydrocodone bitartrate 5 MG Oral Tablet [facility] ([facility]) lidocaine (ASPERCREME) 4 % [facility] [id number] 09/19/2019 12:00:00 AM EDT 2 {patch} Transdermal aborted Place 2 patches on t he skin daily [facility] Ondansetron 4 MG Disintegrating Oral Tab let ondansetron (ZOFRAN-ODT) 4 MG disintegrating tablet ondansetron (ZOFRAN-ODT) 4 MG disintegrating tablet 09/18/2019 12:00:00 AM EDT 4 mg Oral aborted Take 1 tablet (4 mg total) by mouth every 6 (six) hours as needed for nausea [facility] Furosemide 20 MG Oral Tablet [Lasix] Lasix 20 MG Oral Tablet Lasix 20 MG Oral Tablet 08/05/2019 12:00:00 AM EDT aborted furosemide 20 MG Oral Tablet [Lasix] [facility] ([facility]) Omeprazole 20 MG Delayed Release Oral Ca psule Omeprazole 20 MG Oral Capsule Delayed Release Omeprazole 20 MG Oral Capsule Delayed Release 07/29/19 12:00:00 AM EST 1 aborted omeprazole 20 MG Delayed Release Oral Capsule [facility]) rivaroxaban 15 MG Oral Tablet [Xarelto] Xarelto 15 MG Oral Tablet Xarelto 15 MG Oral Tablet 07/29/2019 12:00:00 AM EST aborte d rivaroxaban 15 MG Oral Tablet [Xarelto] [facility] ([facility]) gabapentin 300 MG Oral Capsule Gabapentin 300 MG Oral Capsule Gabapentin 300 MG Oral Capsule 07/29/2019 12:00:00 AM EST 1 abort ed gabapentin 300 MG Oral Capsule [facility] ([facility]) buspirone hydrochloride 5 MG Oral Tablet busPIRone HCl 5 MG Oral Tablet busPIRone HCl 5 MG Oral Tablet 07/29/2019 12:00:00 AM EST 1 aborted buspirone hydrochloride 5 MG Oral Tablet [facility] ([facility]) Pramipexole dihydrochloride 1 MG Oral Ta blet Pramipexole Dihydrochloride 1 MG Oral Tablet Pramipexole Dihydrochloride 1 MG Oral Tablet 0 12:00:00 AM EST aborted pramipexole dihy drochloride 1 MG Oral Tablet [facility]) mineral oil external liquid [address]-3 1 {application} Topical aborted Apply 1 application topically da zayda as needed (for dry skin) [facility] Magnesium Hydroxide 80 MG/ML Oral Suspen pema magnesium hydroxide (MILK OF MAGNESIA) 400 MG/5ML suspension magnesium hydroxide (MILK OF MAGNESIA) 4 00 MG/5ML suspension 30 mL Oral aborted Take 30 mL by mouth daily as needed for constipation [facility] Melatonin 3 MG Oral Tablet Melatonin 3 MG TABS Melatonin 3 MG TABS 3 mg Oral aborted Take 3 mg by mouth n ightly as needed (for sleep) [facility] Levetiracetam 750 MG Oral Tablet levETIRAcetam (KEPPRA ) 750 MG tablet levETIRAcetam (KEPPRA) 750 MG tablet 750 mg Oral a borted Take 750 mg by mouth 2 (two) times a day [facility] Acetaminophen 325 MG Oral Tablet acetaminophen (TYLENO L) 325 MG tablet acetaminophen (TYLENOL) 325 MG tablet 325 mg Oral aborted Take 325 mg by mouth every 4 (four) hours as needed for pain [facility] Bisacodyl 10 MG Rectal Suppository bisacodyl (DULCOLAX ) 10 MG suppository bisacodyl (DULCOLAX) 10 MG suppository 10 mg Rectal aborted Insert 10 mg into the rectum daily as needed (for constpation) [facility] Sodium Phosphate, Dibasic 35.5 MG/ML / S odium Phosphate, Monobasic 96.4 MG/ML Enema Sodium Phosphates (FLEET) 7-19 GM/118ML ENEM Sodium Phosphates (FLEET) 7- 19 GM/118ML ENEM 1 {enema} Rectal aborted Insert 1 enema into the rectum once as needed (for constipation) [facility] buspirone hydrochloride 5 MG Oral Tablet busPIRone (BU SPAR) 5 MG tablet busPIRone (BUSPAR) 5 MG tablet 5 mg Oral aborted Take 5 mg by mouth 3 (three) times a day [facility] carvedilol 12.5 MG Oral Tablet carvedilol (COREG) 12.5 MG tablet carvedilol (COREG) 12.5 MG tablet 12.5 mg Oral aborted Take 12.5 mg by mouth 2 (two) times a day with meals [facility] sennosides, SNF 8.6 MG Oral Tablet senna (SENOKOT) 8.6 MG TABS senna (SENOKOT) 8.6 MG TABS 8.6 mg Oral aborted Take 8.6 mg by mouth daily as needed (for constipation) [facility] Oxycodone Hydrochloride 5 MG Oral Tablet oxyCODONE (ROXICODONE) 5 MG immediate release tablet oxyCODONE (ROXICODONE) 5 MG immediate release tablet 5 mg Oral aborted Take 5 mg by mouth e very 4 (four) hours as needed for pain [facility] Omeprazole 20 MG Delayed Release Oral Ca psule omeprazole (PRILOSEC) 20 MG capsule omeprazole (PRILOSEC) 20 MG capsule 20 mg Oral aborted Take 20 mg by mouth daily [facility] Pramipexole dihydrochloride 1 MG Oral Ta blet [Mirapex] pramipexole (MIRAPEX) 1 MG tablet pramipexole (MIRAPEX) 1 MG tablet 1 mg Oral aborted Take 1 mg by mouth 2 (two) times a day [facility] Insurance Providers Payer name Policy type / Coverage type Policy ID Covered green party ID Covered green party's relationship to leroy Policy Leroy Plan Information [facility] [place] [facility] [id number] SP [id number] MEDICARE A [id number] Self [id number] MEDICARE A [id number] Self [id number] MEDICARE [id number] SP [id number] A MEDICARE [id number] [id number] MEDICARE [id number] Madeleine [id number] Medicare C [id number] SELF [id number] X06 MEDICAID M [id number] Self [id number] MEDICARE [facility]) - [id number] 1 [id number] 1 [id number] MEDICAID [facility] /VBI Vaccines. 2 [id number] MEDICAID [facility] [id number] SP [id number] MEDICAID [id number] Madeleine [id number] MEDICAID [id number] xxxxxxxx [id number] Medicaid [facility] Healthcare S D [id number] SELF [id number] MEDICAID [id number] Madeleine [id number] Medicaid [facility] Other 0 [id number] Self 0 [address] [facility] Other 0 [id number] Self 0 Medicaid of [place] Other 0 [id number] Self 0 [address] [facility] Other 0 [id number] Self 0 [place] Other 0 [id number] Self 0 [address] [facility] Other 0 [id number] Self 0 Medicaid [place] Other 0 [id number] Self 0 Medicare [address] [facility] Other 0 [id number] Self 0 Medicaid [place] Other 0 [id number] Self 0 [address] [facility] Other 0 [id number] Self 0 Medicaid [place] Other 0 [id number] Self 0 Medicare [address] [facility] Other 0 [id number] Self 0 MEDICARE C [id number] S [id number] Medicaid of [place] Other 0 [id number] Self 0 [address] [facility] Other 0 [id number] Self 0 MEDICARE PART A -O [id number] 18 [id number] MEDICAID -O/P KEVIN [id number] 18 [id number] MEDICARE PART A -I/P [id number] 18 [id number] MEDICAID -I/P [id number] MEDICARE PART A -O/P [id number] 18 [id number] Medicaid of [place] Other 0 [id number] Self 0 Medicare Part B [facility] Other 0 [id number] Self 0 Medicaid [facility] Other 0 [id number] Self 0 Medicare Part B [facility] Other 0 [id number] Self 0 MEDICAID [id number] SP [id number] ANSI-Medicare Part B [id number] ANSI-Medicare Part B [id number] ANSI-Medicare Part B [id number] ANSI-Medicare Part B [id number] ANSI-Medicare Part B [id number] ANSI-Medicare Part B [id number] ANSI-Medicare Part B [id number] ANSI-Medicare Part B [id number] ANSI-Medicare Part B [id number] ANSI-Medicare Part B [id number] ANSI-Medicare Part B [id number] ANSI-Medicare Part B [id number] ANSI-Medicare Part B [id number] ANSI-Medicare Part B [id number] ANSI-Medicare Part B [id number] ANSI-Medicare Part B [id number] ANSI-Medicare Part B [id number] ANSI-Medicare Part B [id number] ANSI-Medicare Part B [id number] ANSI-Medicare Part B [id number] ANSI-Medicare Part B [id number] ANSI-Medicare Part B [id number] ANSI-Medicare Part B [id number] ANSI-Medicare Part B [id number] MEDICARE [id number] ANSI-Medicare Part B [id number] ANSI-Medicare Part B [id number] MEDICAID -PHYSICIAN [id number] MEDICAID -O [id number] MEDICARE PART A -O [id number] MEDICARE PART A -I/P [id number] ANSI-Medicare Part B [id number] ANSI-Medicare Part B [id number] ANSI-Medicare Part B 44e239na-8i27-0a0u-i040-uu6w0gx1v8qj 11c378dx-6w66-3u8c-p946-ws3d9ly8q0oi ANSI-Medicare Part B b8jn3s38-25n3-4952-8zir-92bv893z08v5 b4ub8b93-80f0-0585-4mov-24fj605l41a2 ANSI-Medicare Part B f7185at0-ql5q-96j9-5zq1-o578395824ul p9410dp9-zn4n-51r2-2fz9-z731350073qj ANSI-Medicare Part B 94sf0745-9j65-0o51-70m2-cr99q24f654s 47kp5904-8b16-6j97-76h9-ts39c30y388m ANSI-Medicare Part B d267100v-6w7g-32e7-cwo1-w4hs6y7301bq i476197c-3x0f-92f2-pck6-m6qg3t7565mj ANSI-Medicare Part B 9n0eo87g-o8x3-6216-2o93-140a5fm9l4mi 5n7fs21d-e3h5-5291-7b44-629y9au6a1gm ANSI-Medicare Part B 7hy6a9uu-2v20-3m97-a804-97ir0mt8zt6u 0py7x0uc-4x21-2d21-n511-11ul3cq9sp3g ANSI-Medicare Part B 8bdywvp7-do98-3847-1h55-or308l4x131e 9xfmser1-pl17-3552-8t85-jm954j1m044q ANSI-Medicare Part B [id number]-g95e-1k83-j0r1-91c774eb5712 4m710602-c77h-7m26-y5m8-68d093wu9232 ANSI-Medicare Part B 879q64d4-5330-32h3-5834-6r6ahm5c61l8 674c60z6-9748-28d1-1316-8s6ptn7w33v0 ANSI-Medicare Part B 35r41wht-r8dd-8577-x735-s4y78c0t7838 03d28jhy-m7yr-7478-l887-z4b81v0f8680 ANSI-Medicare Part B 8a5ln6k4-5au1-84zy-r0p6-80096q35i0yn 0m2st0b2-9tk3-69gi-q1j1-28077b49p4or ANSI-Medicare Part B 3xils4vv-fvk3-705n-w4nw-5r27126v091y 7wudn5dd-uxi7-045g-d1dq-1k54713s049x ANSI-Medicare Part B 5h4p0w3v-9tk6-558b-0j56-1p7551m871zt 0k0i7g0a-8qk5-399p-9v29-5f9650r655tu ANSI-Medicare Part B tqzm8k09-xme8-1524-s262-45h68v5u3349 mduf9q17-mpd3-5247-w089-16r80p4i8681 ANSI-Medicare Part B 5va9n175-d8nw-61bn-3wg4-c715s5bc558h 0it8p084-y1nq-46zf-7no7-p992a5gi156v ANSI-Medicare Part B 0ayo5y4o-1a06-35q3-amu9-793750641kjs 9imi7y6z-6h86-04h1-iqy2-125266510xbi ANSI-Medicare Part B n4848043-43qt-175r-f19u-r644n23c9f90 j0664264-38qc-418d-u08q-x579d74n6t51 ANSI-Medicare Part B z7lmfhqd-1x00-0k9g-p1y8-7wp98y5a05av k3vtyxbu-0q16-6z4d-a9x9-7cb24a3k33nv ANSI-Medicare Part B 3483h1b7-sn71-5j35-5w96-qg6e701775j1 2924p5k2-iu99-7a05-7t44-id9o460612j7 ANSI-Medicare Part B 5570ame9-xn30-7880-p2qs-00y13znb7350 5680kzh1-rn77-3150-x8mo-40z84brn9007 ANSI-Medicare Part B 1033198x-83z0-097n-4s60-u0u7hwg33387 0892483y-41y8-040p-3m72-v3f5ovo42736 ANSI-Medicare Part B 854m9ws8-7d4n-44a0-12nc-49s7t5ke639s 670e1vx3-0p6q-60q6-84fq-79h2d3ls486q ANSI-Medicare Part B 4488129v-z1x5-99y5-1wg0-98c9l6qak15y 4739772k-r9d4-20c2-4zz1-05o5d9sfu24p ANSI-Medicare Part B 32y40njy-87u9-8756-y0uw-0k86k55h4191 05v53hct-96m0-2249-m3my-1u65p89w3098 ANSI-Medicare Part B 144274gl-0318-1fy0-451d-sy8um71p3ez8 895557mk-5876-9tb5-029d-uv1ag80l1ne3 ANSI-Medicare Part B ry7611o5-1856-10p9-779y-9z7951609006 sy0448f0-8883-39g2-271k-3o2956771822 ANSI-Medicare Part B 5340ml82-i1a3-0953-386g-2h525b432341 0728bt17-c9v5-6495-672j-7h228y665833 ANSI-Medicare Part B 542et800-m57u-74vd-5727-sx43921502dy 803hd323-m65a-15jj-1435-gl46723998pi ANSI-Medicare Part B miz18l88-y3d4-7p28-6695-08y576z0k5zt spw21l15-s3w8-9k29-5580-75g108g2f9vc ANSI-Medicare Part B 8m8i0q8w-o444-52mn-781d-o010322105t6 5w5m3v9l-k569-48em-806i-t619442392b0 ANSI-Medicare Part B 8b9q93x1-kjl7-0111-42tq-171k4gmvo823 9c7w88k1-kpq3-3084-51al-528u4ozha138 ANSI-Medicare Part B 1w902354-p8g6-9iv5-948p-v027hah7u2kk 9b702943-o6a8-2ap6-777b-d402qpz1b9ig ANSI-Medicare Part B q6v89848-ksrj-1648-ba2f-bh74f459lxo4 x6d50083-mspv-5714-rm4s-yd66c942xgz2 ANSI-Medicare Part B fkjs8mqq-f3xc-3a17-lrv8-byzrpc6q0v9a fwsj1dnw-c5cn-4f37-apn8-jlurnz5n6o2m ANSI-Medicare Part B 9155438u-02o0-708y-u3ro-543wus2d4324 9670320s-48c4-662m-a9nk-775qwu2o4718 ANSI-Medicare Part B 9s054433-8233-601o-jqv3-q6w17jaao215 1r678434-3712-242v-vtj5-u7n99ynum560 ANSI-Medicare Part B 1o6iytb7-s050-2529-26d4-9477m18u4890 0u8hrkr8-y699-6970-45z1-6435w71y3949 ANSI-Medicare Part B 600f99di-v93t-8678-nl48-0z265xwxr6uq 492w24ih-y32i-1138-dl28-6y659mfju1au ANSI-Medicare Part B 2h6003om-9625-4t9u-7qpq-68924e958l00 3d9506cw-4058-0c7t-8kic-33251u787g30 ANSI-Medicare Part B r173wh45-s52m-26ue-874l-41015f86k83s k029nq36-n11c-30ux-090x-07869f10j76r ANSI-Medicare Part B fbd56zxy-609m-614w-y96r-475972d2q709 etd24mkr-708a-629b-d49h-798236o2a184 ANSI-Medicare Part B 5z1y4i97-34p0-5fcq-w847-6kc66n8vk818 8k1w5w02-26f1-4oip-u376-8ai48k1zs173 ANSI-Medicare Part B u3ug250f-v518-9646-96fk-22l84md96j4y c0pt080z-j841-7876-79rz-17l20mh24x0f ANSI-Medicare Part B 7619o557-31x8-225i-d430-7w53884e79q2 6881n087-63j6-940b-s780-5t66645v24o5 ANSI-Medicare Part B 29q52cx4-o9o6-2w95-k5sr-5g69t04z92tl 03g04fc2-k4t5-4d91-h7pz-5g63f99x44im ANSI-Medicare Part B 00241dd4-5606-0893-80bw-e68xzngjz430 48215sz0-0306-9903-84om-v83lbliux990 ANSI-Medicare Part B c2max58w-83ks-31s9-88hn-i7a01981s826 y4nys73k-42ad-38n2-11eg-o6u61018p318 ANSI-Medicare Part B 3y34vf62-811u-2w7q-pi0z-1f9uv701vp38 3e43ab11-134u-1r7v-kg0a-1s0ks851yk40 ANSI-Medicare Part B 47374801-3862-76ws-b808-59387223kk0l 50958305-9864-00dd-z962-53852979aq4f MEDICAID -SWING BED [id number] MEDICARE -SWING BED [id number] ANSI-Medicare Part B 526m3gm7-84c0-91ud-301x-n59037s8z8t9 907h2wr5-63n9-72uf-303v-u36592h7q8p3 ANSI-Medicare Part B a670xx45-m851-9l56-gs3m-636486366453 l686qh83-e301-8l88-zb3y-503965345868 ANSI-Medicare Part B 499xe249-02qu-6978-h6q7-7649vf1eoitg 293ep840-09se-3271-b5w4-4070px7iylhq ANSI-Medicare Part B r9693fp2-a5cb-0t55-gjp9-h7hayz2699oo m2517id5-s7wj-2r19-tnt0-v4jhsb8029pr MEDICARE PART A -I/P [id number] 18 [id number] ANSI-Medicare Part B 84z170y9-6g54-55ah-45a4-3riv83e766y0 20q029h3-4u49-41ob-20a4-8ics98y083k7 ANSI-Medicare Part B 949943s1-e4o8-3574-59r9-fr48sryo2ox3 925451p3-k6n6-0240-20j5-vf70ejnl2uc5 ANSI-Medicare Part B p1b0q573-k400-108v-b67l-695820984e28 s4v4e871-e110-210j-n17s-605153417o05 ANSI-Medicare Part B 503548e8-rs94-357r-uae9-7eh1x27d587v 751130j2-hf19-145z-cmy0-0wa3y55r059x ANSI-Medicare Part B dg3u081g-h4k3-6712-2vu2-r93jf10vymxn jf7i701e-p8h9-7987-1zb0-q29ps30fhbwf ANSI-Medicare Part B 8q08t5p2-315a-8d8a-yzri-4u990369o97e 1p04z2y6-846k-1v9c-btsl-0d172690b64s ANSI-Medicare Part B 76113zq7-b258-6o05-tgd4-24frq44g99sa 01712kp0-x243-1l79-sjl1-38aan54z71be ANSI-Medicare Part B 6n8086m6-308t-837e-ar95-959794078m76 6k7311o0-699d-232b-us77-394664238b30 ANSI-Medicare Part B 01y50v5e-bk8m-7wot-674l-i4umye47677a 04v65k5o-ye8l-9him-967p-b6sggx15084k ANSI-Medicare Part B 8039ce3o-2t3d-7975-41fh-8u5tf78b2802 6492uv8u-6d2j-6676-63ii-6i3pw21o9417 ANSI-Medicare Part B 76fh6c04-dqk2-6q93-ls07-4954in838075 03le1o64-xtx6-5x54-da77-4203rj975691 ANSI-Medicare Part B 5597h906-0r62-43i7-3552-72j7s52018l8 9616j062-0y01-63d6-2853-56g3q53229n7 ANSI-Medicare Part B s87ma318-8853-4974-n95e-0i4i110hycm9 o71gh679-1083-0548-i31o-4n0e788vxpl2 ANSI-Medicare Part B 300560x6-3041-1035-p90j-093467s75104 789450q9-9475-2948-x78y-755116j10698 ANSI-Medicare Part B 0r9699k3-4624-54j2-1h3c-6e3z27ml2746 1i7275p0-2955-66m8-8l5x-6s5x38wz1510 ANSI-Medicare Part B l29vawy3-dg71-519s-l622-367l9x748l79 k12nhfy4-pf00-017a-h683-763l7t059j00 ANSI-Medicare Part B 5n8z69t7-15b5-659y-779x-5o07i3il5e4q 8z2n42w5-47y0-832y-823n-7z70c2bp4s4r ANSI-Medicare Part B 968115ui-1214-3sdl-mi1z-3804hvit2020 782535kk-7486-0dwk-rm7o-3721ubwz4869 ANSI-Medicare Part B 78n18808-d4b7-1yw7-35x9-0856uc955340 40z88427-e6p6-9cx5-34c9-2645kr818938 ANSI-Medicare Part B d494869m-nql4-3c0m-5142-c6f80y02737s z108565p-qda6-3t0z-7754-e0a00q75750x ANSI-Medicare Part B 754ly0o2-03wn-8146-l36p-56iw275y45l0 412km9q0-59ke-2161-t66m-70wl860x93z7 ANSI-Medicare Part B k14i9589-b39t-0x92-c7s1-0xlb7o053690 x66s2156-u35p-9s74-y0o6-4nrw3k566591 ANSI-Medicare Part B 437t75x2-65w4-1gbd-271q-2732uk3375pg 923o81m5-82y1-2mpf-507a-6878db7094op ANSI-Medicare Part B u4gg199s-8sie-331z-y144-8bkm8924440h u6th090h-7uvs-110d-g064-2sac9166238y ANSI-Medicare Part B 03119j07-d417-6j82-7i58-yjqn270s0009 85464t89-o439-1g79-7f60-jqnp906w8441 ANSI-Medicare Part B 6g71ug59-4b16-48a1-52lw-v573j30e7608 0g81fo78-1v47-53e4-12ti-w388y84b7372 ANSI-Medicare Part B 1ox7d586-8612-8997-4mxo-96z92kzlsyq7 4nc1u723-1934-3327-6gnn-46h15vztpjc8 ANSI-Medicare Part B a4062214-9khd-100k-w2j3-nn9zbn21i50t o9755206-8nds-612a-d5d7-ut5xmk24e30e MEDICARE PART B -PHYSICIAN [id number] 18 [id number] MEDICAID -I [id number] MEDICARE PART A -I [id number] MEDICARE [id number] SP [id number] A MEDICAID [facility] [id number] SP [id number] MEDICARE [id number] SP [id number] MEDICARE UNAVAILABLE [place] MEDICARE [id number] SP [id number] SELF PAY UNAVAILABLE [place] MEDICAID UNAVAILABLE SP [place] MEDICAID [id number] S [id number] MEDICARE C [id number] S [id number] A Medicare [place] Medicare Primary [id number] Self [id number] MEDICARE - [place] MCR [id number] S [id number] [employer] MCR HMO MEBKFLHZ S MEB KFLHZ AETNA MEDICARE MEBKFLHZ SP MEBKF LHZ [employer] MEDICAID MCD HMO [id number] S [id number] [employer] MEDICAID MCD HMO [id number] S [id number] SELF PAY SP [place] [id number] SP [id number] G [id number] MEDICARE [id number] SP [id number] MEDICARE PART A -O/P [id number] 18 [id number] MEDICAID -O/P [id number] Medicaid [facility] Other 0 [id number] Self 0 Medicare [address] [facility] Other 0 [id number] Self 0 Medicaid [facility] Other 0 [id number] Self 0 Medicare Part B [address] [facility] Other 0 [id number] Self 0 Medicaid [facility] Other 0 [id number] Self 0 Medicare Part B of [facility] Other 0 [id number] Self 0 Medicaid [facility] Other 0 [id number] Self 0 Medicare Part B of [facility] Other 0 [id number] Self 0 MEDICAID -O/P EMERGENCY ROOM [id number] Medicaid [facility] Other 0 [id number] Self 0 Medicare [address] [facility] Other 0 [id number] Self 0 Problems, Conditions, and Diagnoses Code Display Name Description Problem Type Effective Dates Data Source(s) I5020 Unspecified systolic (congestive) heart failure Unspecified systolic (congestive) heart failure Diagnosis 08/13/2020 02:20:00 PM EDT [facility] G4089 Other seizures Other seizures Diagnosis 08/13/2020 02:20: 00 PM EDT Z125 Encounter for screening for malignant ne oplasm of prostate Encounter for screening for malignant neoplasm of prostate Diagnosis 02:20:00 PM EDT I4820 Chronic atrial fibrillation, unspecified Chronic atrial fibrillation, unspecified Diagnosis 08/13/2020 02:20:00 PM EDT N1831 Chronic kidney disease, stage 3a Chronic kidney disease, stage 3a Diagnosis 08/13/2020 02:20:00 PM EDT E782 Mixed hyperlipidemia Mixed hyperlipidemia Diagnosis 08/13/2020 02:20:00 PM EDT I49.5 Sick sinus syndrome Sick sinus syndrome Diagnosis 0 08/06/2020 11:14:10 AM [facility] I48.21 Permanent atrial fibrillation Permanent atrial fibrill ation Diagnosis 08/06/2020 11:14:10 AM [facility] D539 Nutritional anemia, unspecified Nutritional anemia, un specified Diagnosis 07/14/2020 02:10:00 PM [facility] Z97352 Cellulitis of other sites Cellulitis of other sites Di agnosis 06/04/2020 03:06:00 PM [facility] I639 Cerebral infarction, unspecified Cerebral infarc tion, unspecified Diagnosis 05/14/2020 09:53:00 AM [facility] N1830 Chronic kidney disease, stage 3 unspecif ied Chronic kidney disease, stage 3 unspecified Diagnosis 05/14/2020 09:53:00 AM [facility] Z71.3 Dietary management surveillance Dietary management davida veillance Problem 03/01/2021 12:00:00 AM EDT [facility] ([facility]) Z95.1 History of coronary artery bypass grafti ng History of coronary artery bypass grafting Problem 11/13/2020 12:00:00 AM EDT [facility] ([facility]) I49.5 Sinus node dysfunction Sinus node dysfunction Problem 11/13/2020 12:00:00 AM EDT [facility] ([facility]) Z95.0 Cardiac pacemaker in situ Cardiac pacemaker in situ Pr oblem 11/13/2020 12:00:00 AM EDT [facility] ([facility]) I10 Essential hypertension Essential hypertension Problem 11/13/2020 12:00:00 AM EDT [facility] ([facility]) E78.00 Pure hypercholesterolemia Pure hypercholesterolemia Pr oblem 11/13/2020 12:00:00 AM EDT [facility] ([facility]) I45.19 Right bundle branch block Right bundle branch block Pr oblem 11/13/2020 12:00:00 AM EDT [facility] ([facility]) 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 Chronic ischemic heart disease Problem 11/13/2020 12:00:00 AM EDT [facility] ([facility]) R07.9 Chest pain Chest pain Problem 11/13/2020 12:00:00 AM ED T [facility] ([facility]) R60.0 Edema Edema Problem 11/13/2020 12:00:00 AM ED T [facility] ([facility]) 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 Problem 10/12/2020 12:00:00 AM EDT [facility] ([facility]) I48.21 Permanent atrial fibrillation Permanent atrial fibrill ation Problem 10/12/2020 12:00:00 AM EDT [facility] ([facility]) R94.31 Electrocardiogram abnormal Electrocardiogram abnormal Problem 10/12/2020 12:00:00 AM EDT [facility] ([facility]) Z86.718 History of thromboembolism of vein History of th romboembolism of vein Problem 10/12/2020 12:00:00 AM EDT [facility] ([facility] I25.10 Multi vessel coronary artery disease Mul ti vessel coronary artery disease Problem 10/12/2020 12:00:00 AM EDT [facility] ([facility]) Z95.1 Hx of CABG Hx of CABG [id number] 08/06/2020 12:00:00 AM [facility] I25.5 Ischemic cardiomyopathy Ischemic cardiomyopathy 541017 08/06/2020 12:00:00 AM [facility] 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 [id number] 08/06/2020 12:00:00 AM [facility] L97.812 [id number] Non-pressure chronic ulcer of other part of right lower leg with fat layer exposed Problem 07/10/2020 12:00:00 AM EST [facility]CW[facility] ([facility]) L97.822 [id number] Non-pressure chronic ulcer of other part of left lower leg with fat layer exposed Problem 07/10/2020 12:00:00 AM EST eCW1 ([facility]) I87.311 [id number] Chronic venous hyper tension (idiopathic) with ulcer of right lower extremity Problem 07/10/2020 12:00:00 AM EST eCW1 ([facility]) I87.312 [id number] Chronic venous hyper tension (idiopathic) with ulcer of left lower extremity Problem 07/10/2020 12:00:00 AM EST eCW1 ([facility]) Surgeries/Procedures Procedure Description Date Indications Data Source(s) ECG ROUTINE ECG W/LEAST 12 LDS W/I&R 03/01/2021 12:00: 00 AM EDT [facility] ([facility]) OFFICE OUTPATIENT VISIT 25 MINUTES 03/01/2021 12:00:00 AM EDT [facility] ([facility]) OFFICE OUTPATIENT VISIT 15 MINUTES 01/25/2021 12:00:00 AM EDT [facility] ([facility]) Arterial Pressure Waveform Analysis For Assessment Of Centra l Art 12/25/2020 12:00:00 AM EDT [facility] ([employer] [facility]) OFFICE OUTPATIENT VISIT 15 MINUTES 12/25/2020 12:00:00 AM EDT [facility] ([facility]) ECG ROUTINE ECG W/LEAST 12 LDS W/I&R 11/13/2020 12:00: 00 AM EDT [facility] ([facility]) Arterial Pressure Waveform Analysis For Assessment Of Centra l Art 11/13/2020 12:00:00 AM EDT [facility] ([facility] [employer] [facility]) OFFICE OUTPATIENT NEW 45 MINUTES 11/13/2020 12:00:00 A M EDT [facility] ([facility]) BLOOD COUNT COMPLETE AUTOMATED <td>CBC</td><td>Timed</ td><td>08/08/2020 6:34 AM EST</td><td></td><td> </td> 08/08/2020 11:34:00 AM EST [facility] XR CHEST PORTABLE <td>XR CHEST PORTABLE</td><t d>STAT</td><td>08/07/2020 4:57 PM EST</td><td></td><td> </td> 08/07/2020 09:57:13 PM EST [facility] INSERTION MICRA LEADLESS PPM <td>INSERTION MICRA LEADL ESS PPM</td><td>Routine</td><td>08/07/2020 3:37 PM EST</td><td> Permanent atrial fibrillation</td><td> </td> 08/07/2020 08:37:07 PM EST Permanent atrial fibrillation [facility] Permanent atrial fibrillation BLOOD COUNT COMPLETE AUTOMATED <td>CBC</td><td>Routine </td><td>08/07/2020 7:37 AM EST</td><td></td><td> </td> 08/07/2020 12:37:00 PM EST [facility] BASIC METABOLIC PANEL CALCIUM TOTAL <td>BASIC METABOLI C PANEL</td><td>Routine</td><td>08/07/2020 7:37 AM EST</td><td></td><td> </td> 08/07/2020 12:37:00 PM EST [facility] XR CHEST PORTABLE <td>XR CHEST PORTABLE</td><t d>Routine</td><td>08/06/2020 3:10 PM EST</td><td></td><td> </td> 08/06/2020 08:10:22 PM EST [facility] BLOOD COUNT COMPLETE AUTOMATED <td>CBC</td><td>Routine </td><td>08/06/2020 11:53 AM EST</td><td></td><td> </td> 08/06/2020 04:53:00 PM EST [facility] BASIC METABOLIC PANEL CALCIUM TOTAL <td>BASIC METABOLI C PANEL</td><td>Routine</td><td>08/06/2020 11:53 AM EST</td><td></td><td> </td> 08/06/2020 04:53:00 PM EST [facility] ECG ROUTINE ECG W/LEAST 12 LDS TRCG ONLY W/O I&R <td>E CG 12- LEAD</td><td>Routine</td><td>08/06/2020 11:44 AM EST</td><td></td><td></td> 08/06/2020 04:44:13 PM EST [facility] COVID/FLU AB/RSV PCR <td>COVID/FLU AB/RSV PCR</td ><td>STAT</td><td>08/06/2020 11:35 AM EST</td><td></td><td> </td> 08/06/2020 04:35:00 PM EST [facility] FINE NEEDLE ASPIRATION W/O IMAGING GUIDANCE 07/24/2020 12:00:00 AM EST eCW1 ([facility]) XTRNL ECG < 48 HR RECORD SCAN STOR W/PHY R&I 12:00:00 AM EST [facility] (Neymar Hilario MD) FINE NEEDLE ASPIRATION W/O IMAGING GUIDANCE 07/17/2020 12:00:00 AM EST eCW1 ([facility]) ECG ROUTINE ECG W/LEAST 12 LDS W/I&R 07/14/2020 12:00: 00 AM EST [facility] (Neymar Hilario MD) ECHO TTHRC R-T 2D W/WOM-MODE COMPL SPEC&COLR DOP 07/14 12:00:00 AM EST [facility] (Neymar Hilario MD) FINE NEEDLE ASPIRATION W/O IMAGING GUIDANCE 07/10/2020 12:00:00 AM EST eCW1 ([facility]) Medication: Aquaphor healing ointment topical 07/10/19 12:00:00 AM EST eCW1 ([facility]) Medication: 2% Lidocaine intradermal 07/10/2020 12:00: 00 AM EST eCW1 ([facility]) ELECTROCARDIOGRAM, COMPLETE (EKG) ELECTROCARDIOGRAM, COMPLET E (EKG) 03/30/2020 12:00:00 AM EST SPUR ([facility]) ELECTROCARDIOGRAM, COMPLETE (EKG) ELECTROCARDIOGRAM, COMPLET E (EKG) 03/30/2020 12:00:00 AM EST SPUR ([facility]) Results ID Date Data Source [id number] 03/01/2021 12:00:00 AM EDT [facility] Name Value Range Interpretation Code Description Data Chela rce(s) Supporting Document(s) SARS coronavirus 2 Ag NEGATIVE [facility] This lab was ordered by [facility] and reported by [facility]. ID Date Data Source [id number] 02/24/2021 12:44:00 PM EDT [facility] ([facility]) Name Value Range Interpretation Code Description Data Chela rce(s) Supporting Document(s) Calcium [Mass/volume] in Serum or Plasma 8.8 [facility] ([facility]) Sodium 140 [facility] ([facility] Carbon dioxide, total [Moles/volume] in Serum or Plasma 28 [facility] ([facility]) Chloride [Moles/volume] in Serum or Plasma 105 [facility] ([facility]) Potassium [Moles/volume] in Serum or Plasma 3.7 [facility] ([facility]) Blood Urea Nitrogen 33 7-18 [facility] ([facility]) Glucose 101 83-110 [facility] Creatinine 2.09 0.6-1.0 [facility] ([facility]) Glomerular filtration rate/1.73 sq M.pre dicted [Volume Rate/Area] in Serum or Plasma by Creatinine-based formula (MDRD) 33.6 [facility] ([facility]) ID Date Data Source [id number] 02/24/2021 12:00:00 AM EDT [facility] Name Value Range Interpretation Code Description Data Chela rce(s) Supporting Document(s) SARS coronavirus 2 Ag NEGATIVE [facility] This lab was ordered by [facility] and reported by [facility]. ID Date Data Source [id number] 02/10/2021 03:00:00 PM EDT [facility] Name Value Range Interpretation Code Description Data Chela rce(s) Supporting Document(s) SARS coronavirus 2 Ag [facility] by [facility]. ID Date Data Source [id number] 02/03/2021 12:00:00 AM EDT [facility] Name Value Range Interpretation Code Description Data Chela rce(s) Supporting Document(s) SARS coronavirus 2 Ag NEGATIVE [facility] and reported by [facility]. ID Date Data Source [id number] 01/21/2021 12:46:00 PM EDT [facility] Name Value Range Interpretation Code Description Data Chela rce(s) Supporting Document(s) Natriuretic peptide.B prohormone N-Terminal [Mass/volu me] in Serum or Plasma 786 [facility] ([employer] [facility]) ID Date Data Source [id number] 01/21/2021 12:46:00 PM EDT [facility] Name Value Range Interpretation Code Description Data Chela rce(s) Supporting Document(s) Calcium [Mass/volume] in Serum or Plasma 8.7 [facility] ([facility]) Sodium 139 [facility] ([facility]) Carbon dioxide, total [Moles/volume] in Serum or Plasma 29 [facility] ([facility]) Chloride [Moles/volume] in Serum or Plasma 105 [facility] ([facility]) Potassium [Moles/volume] in Serum or Plasma 4.1 [facility] ([facility]) Glucose 82 83-110 [facility] ([facility]) Blood Urea Nitrogen 34 7-18 [facility] ([facility]) Glomerular filtration rate/1.73 sq M.pre dicted [Volume Rate/Area] in Serum or Plasma by Creatinine-based formula (MDRD) 35.1 [facility] ([facility]) Creatinine 2.01 0.6-1.0 [facility] ([facility]) ID Date Data Source [id number] 01/18/2021 02:37:00 PM EDT [facility]) Name Value Range Interpretation Code Description Data Chela rce(s) Supporting Document(s) Calcium [Mass/volume] in Serum or Plasma 8.7 [facility] ([facility]) Carbon dioxide, total [Moles/volume] in Serum or Plasma 26 [facility] ([facility]) Sodium 140 [facility] ([facility]) Glucose 111 83-110 [facility] ([facility]) Chloride [Moles/volume] in Serum or Plasma 107 [facility] ([facility]) Potassium [Moles/volume] in Serum or Plasma 3.9 [facility] ([facility]) Creatinine 1.89 0.6-1.0 [facility] [facility]) Blood Urea Nitrogen 31 7-18 MEDENT (Ca rdiology [facility]) Glomerular filtration rate/1.73 sq M.pre dicted [Volume Rate/Area] in Serum or Plasma by Creatinine-based formula (MDRD) 37.7 MEDENT (Cardiology [facility]) ID Date Data Source [id number] 01/18/2021 02:37:00 PM EDT [facility] ([facility]) Name Value Range Interpretation Code Description Data Chela rce(s) Supporting Document(s) White Blood Count 4.6 5.0-10.0 [facility] ([facility]) Red Blood Count 3.70 4.00-5.40 [facility] ([facility]) Platelets 158 172-450 MED[facility] ([facility]) Hemoglobin 11.9 MEDENT (Cardiology [facility]) Hematocrit 36.2 MEDENT (Cardiology [facility]) ID Date Data Source [id number] 01/18/2021 12:46:00 PM EDT [facility] Name Value Range Interpretation Code Description Data Chela rce(s) Supporting Document(s) Natriuretic peptide.B prohormone N-Terminal [Mass/volu me] in Serum or Plasma 783 MEDENT ([employer] [facility]) ID Date Data Source [id number] 10/29/2020 12:00:00 AM EDT [facility] Name Value Range Interpretation Code Description Data Chela rce(s) Supporting Document(s) SARS coronavirus 2 Ag NEGATIVE [facility] This lab was ordered by [facility] and reported by [facility]. ID Date Data Source [id number] 10/15/2020 12:00:00 AM EDT [facility] Name Value Range Interpretation Code Description Data Chela rce(s) Supporting Document(s) SARS coronavirus 2 Ag NEGATIVE [facility] This lab was ordered by [facility] and reported by [facility]. ID Date Data Source [id number] 10/12/2020 12:00:00 AM EDT [facility] Name Value Range Interpretation Code Description Data Chela rce(s) Supporting Document(s) SARS coronavirus 2 Ag NEGATIVE [facility] This lab was ordered by [facility] and reported by [facility]. ID Date Data Source [id number] 10/07/2020 12:00:00 AM EDT [facility] Name Value Range Interpretation Code Description Data Chela rce(s) Supporting Document(s) SARS coronavirus 2 Ag NEGATIVE [facility] This lab was ordered by [facility] and reported by [facility]. ID Date Data Source [id number] 10/06/2020 04:43:00 PM EDT [facility] ([facility]) Name Value Range Interpretation Code Description Data Chela rce(s) Supporting Document(s) Platelets 204 150-450 [facility] ([facility]iology [facility]) White Blood Count 6.0 4.0-10.0 [facility] ([facility]) Red Blood Count 3.99 4.30-6.10 [facility] ([facility]) Hemoglobin 12.5 [facility] ([facility]) Hematocrit 39.1 [facility] ([facility]) ID Date Data Source [id number] 10/06/2020 04:43:00 PM EDT [facility] ([facility]) Name Value Range Interpretation Code Description Data Chela rce(s) Supporting Document(s) Magnesium Level 2.3 1.8-2.4 [facility] ([facility]) ID Date Data Source [id number] 10/06/2020 04:43:00 PM EDT [facility] ([facility]) Name Value Range Interpretation Code Description Data Chela rce(s) Supporting Document(s) Blood Urea Nitrogen 25 7-18 [facility] ([facility]) Glucose 121 70-100 [facility] ([facility]) Potassium 4.2 3.5-5.1 [facility] ([facility]) Creatinine 1.50 0.70-1.30 [facility] ([facility]) Sodium 139 136-145 [facility] ([facility]) Carbon Dioxide 29 21-32 [facility] ([facility]) Chloride 106 98-107 [facility] ([facility]) Calcium 9.0 8.2-9.6 [facility] ([facility]) Glomerular filtration rate/1.73 sq M.pre dicted [Volume Rate/Area] in Serum or Plasma by Creatinine-based formula (MDRD) 49.3 [facility] ([facility]) ID Date Data Source [id number] 10/05/2020 12:00:00 AM EDT [facility] Name Value Range Interpretation Code Description Data Chela rce(s) Supporting Document(s) SARS coronavirus 2 Ag NEGATIVE [facility] This lab was ordered by [facility] and reported by [facility]. ID Date Data Source [id number] 09/29/2020 08:22:00 AM EDT [facility] Name Value Range Interpretation Code Description Data Chela rce(s) Supporting Document(s) SARS coronavirus 2 RNA [Presence] in Res piratory specimen by DORA with probe detection NEGATIVE [facility] This lab was ordered by [facility] a nd reported by [facility]. ID Date Data Source [id number] 09/23/2020 06:12:00 PM EDT [facility] Name Value Range Interpretation Code Description Data Chela rce(s) Supporting Document(s) SARS coronavirus 2 RNA [Presence] in Res piratory specimen by DORA with probe detection NEGATIVE [facility] This lab was ordered by [facility] a nd reported by [facility]. ID Date Data Source [id number] 09/12/2020 04:29:00 PM EDT [facility] ([facility]) Name Value Range Interpretation Code Description Data Chela rce(s) Supporting Document(s) Hemoglobin A1c/Hemoglobin.total in Blood 5.8 [facility] ([facility]) ID Date Data Source [id number] 09/12/2020 04:29:00 PM EDT [facility] ([facility]) Name Value Range Interpretation Code Description Data Chela rce(s) Supporting Document(s) Triglycerides 86 [facility] ([facility]iolo [facility]) Cholesterol 124 [facility] ([facility]) Cholesterol in LDL [Mass/volume] in Serum or Plasma by calculation 65 MEDENT (Cardiology [facility]) Chol/HDL Ratio 3.0 [facility] ([facility]iol [facility]) HDL 42 [facility] ID Date Data Source [id number] 08/21/2020 07:30:00 AM EDT Name Value Range Interpretation Code Description Data Chela rce(s) Supporting Document(s) Levetiracetam [Mass/volume] in Serum or Plasma <1.0 ug/mL 10.0-40.0 L This test was developed and its performa nce characteristicsdetermined by [facility]. It has not been cleared or approvedby the Food and Drug Administration. ID Date Data Source [id number] 08/16/2020 06:24:00 AM EDT Name Value Range Interpretation Code Description Data Chela rce(s) Supporting Document(s) Triiodothyronine (T3) Free [Mass/volume] in Serum or Plasma 2.3 pg/ mL 2.0-4.4 ID Date Data Source [id number] 08/13/2020 03:43:00 PM EDT Name Value Range Interpretation Code Description Data Chela rce(s) Supporting Document(s) CVE PANEL [facility] LIPID PANEL Cholesterol [Mass/volume] in Serum or Plasma 149 MG/DL 131 - 200 Deprecated Triglyceride [Mass/volume] in Serum or Plasma 157 MG/DL 3 5 - 160 HDL 45 MG/DL 29 - 86 [facility] Cholesterol in LDL [Mass/volume] in Serum or Plasma by Direc t assay 94 mg/dL 65 - 175 Cholesterol.total/Cholesterol in HDL [Mass Ratio] in Serum o r Plasma 3.3 3.4 - 4.9 L LDL/HDL 2.09 1.00 - 3.55 [facility] CVE RISK CHOL/HDL LDL/HDLMEN: 1/2 AVERAGE 3.43 1.00 AVERAGE 4.97 3.55 2X AVERAGE 9.55 6.25 3X AVERAGE 23.99 7.99WOMEN: 1/2 AVERAGE 3.27 1.47 AVERAGE 4.44 3.22 2X AVERAGE 7.05 5.03 3X AVERAGE 11.04 6.14 ID Date Data Source [id number] 08/13/2020 03:42:00 PM EDT Name Value Range Interpretation Code Description Data Chela rce(s) Supporting Document(s) Creatine kinase [Enzymatic activity/volume] in Serum or Plasma 9 7 U/L 30 - 170 ID Date Data Source [id number] 08/13/2020 03:38:00 PM EDT [facility] Value Range Interpretation Code Description Data Chela rce(s) Supporting Document(s) BNP 933 PG/ML 0 - 125 [facility] ID Date Data Source [id number] 08/13/2020 03:38:00 PM EDT [facility] Value Range Interpretation Code Description Data Chela rce(s) Supporting Document(s) Prostate specific Ag [Mass/volume] in Serum or Plasma 0.90 ng/mL 0.00 - 4.00 \\BLDo\\PSA INTERPRETA TION\\BLDx\\ The PSA assay should not be used alone for a screening test or diagnosis for presence or absence of malignant disease. Predictions of disease recurrence should not be based solely on values obtained from serial patient serum values. The PSA result was determined by "[employer]", on the Black KAJAL 6000. Values obtained with different assay methods or kits cannot be used interchangeably. ID Date Data Source [id number] 08/13/2020 03:38:00 PM T [facility] Value Range Interpretation Code Description Data Chela rce(s) Supporting Document(s) Thyroxine (T4) free index in Serum or Plasma by calculation 1.01 NG/DL 0.93 - 1.70 ID Date Data Source [id number] 08/13/2020 03:38:00 PM EDT Name Value Range Interpretation Code Description Data Chela rce(s) Supporting Document(s) Thyrotropin [Units/volume] in Serum or Plasma by Detec tion limit <= 0.05 mIU/L 0.71 uIU/mL 0.47 - 5.01 ID Date Data Source [id number] 08/13/2020 03:01:00 PM EDT Name Value Range Interpretation Code Description Data Chela rce(s) Supporting Document(s) CBC NO DIFF [facility] ital COMPLETE BLOOD COUNT Leukocytes [#/volume] in Blood by Automated count 6.3 10^3/uL 4.2 - 1 1.0 Erythrocytes [#/volume] in Blood by Automated count 4.10 10^6/uL 4. 50 - 6.30 L Hemoglobin [Mass/volume] in Blood 13.1 g/dL 14.0 - 16.0 L Hematocrit [Volume Fraction] of Blood by Automated count 40.0 % 4 1.0 - 51.0 L Erythrocyte mean corpuscular volume [Entitic volume] by Auto mated count 97.6 fL 80.0 - 94.0 H Erythrocyte mean corpuscular hemoglobin [Entitic mass] by Automated count 32.0 pg 27.0 - 34.0 Erythrocyte mean corpuscular hemoglobin concentration [Mass/volume] by Automated count 32.8 g/dL 31.0 - 36.0 Erythrocyte distribution width [Ratio] by Automated count 14.2 % 11.5 - 14.8 Platelets [#/volume] in Blood by Automated count 176 10^3/uL 150 - 45 0 Platelet mean volume [Entitic volume] in Blood by Automated count 11.1 fL 7.4 - 10.4 H ID Date Data Source [id number] 08/13/2020 02:52:00 PM EDT [facility] Value Range Interpretation Code Description Data Chela rce(s) Supporting Document(s) Prothrombin time (PT) 24.8 SECONDS 11.0 - 15.5 H [facility] INR in Platelet poor plasma by Coagulation assay 2.12 0.93 - 1. 23 H aPTT in Blood by Coagulation assay 49.3 SECONDS 24.8 - 36.7 H \\BLDo\\INR INTERPRETATION\\BLDx\\ Therapeutic range for Coumadin and related oral 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s. - International Normalized Ratio (INR): 2.0 - 3.0 for Venous Thrombosis, Pulmonary Embolus, Tissue heart valves, Acute ME Atrial Fibrillation, Valvular heart disease and recurrent Systemic Embolism. - International Normalized Ratio (INR): 2.5 - 3.5 for Mechanical Prosthetic valve. ID Date Data Source [id number] 08/10/2020 11:10:25 AM EDT [facility]FORMATIONPatient [facility] Name Date of Age Gend*PT [id number] Roberto Gil 1950 70 years M IPPT Location Admission Date/Time Visit ID Attending [id number] 08/06/20 1114 --- --- EPI ID CSN Admitting Provider [id number] Juaquin Sylvester MD([id number]) Attestation signed by Juaquin Sylvester MD at 08/10/2020 11:10 AMATTENDING ADDENDUM:I saw and examined Mr. Gil today, and agree with the exam, assessment, andplan of Ms Holt, mid level, noted above.I agree with the plan as noted above.Indra Sylvester M.D., [facility] Electrophysiology08/10/2020 11:10 AM Physician Discharge Summary Roberto GilN: [id number] date: 08/06/2020ttending Physician: Juaquin Sylvester, [facility] Diagnosis: Tachy-anabel syndromePrinciple Procedures:Pacemaker insertion: . Contrast venography demonstrated patent right axillary and subclavian veins.(occluded Left axilary and Right fem Veins)2. Successful implantation of a lright-sided single singlr chamber PPM MedtronicIndication for Admission: "This patient is a 70 years male with the followingmedical problem list:1. Permanent Atrial Fibrillation on Xarelto2. CVA with right hemiparesis and aphasia3. CAD s/p CABG4. PE/DVT s/p IVC filter placement . Hypertension6. Hyperlipidemia7. CellulitisHistory is obtained from the patients sister, Marie, with patients permission,as well as records from Dr Hilario. No other records are available.Marie tells me that [place]. He was seen in consult by Dr Hilario for atrialfibrillation - duration of arrhythmia is unknown, with complaints of fatigue andshortness of breath. He was placed on a holter monitor which revealed AF RVR aswell as period of slow ventricular rates. Dr Sylvester was contacted for PPMplacement. The patient arrived in the ED today for Covid testing, inanticipation of MicraPM placement"Hospital Course & Complications: Patient was admitted for tachy-anabel syndrome,patient underwent successful implantation of right-sided single chamberpacemaker insertion yesterday. Patient has tolerated procedure well and post opcourse was uneventful. Renal function stable post op. Procedure site left upperchest, right upper chest, right femoral site stable, no hematoma or drainagenoted. Patient was monitored on telemetry. All vital signs stable, lab reviewed.Patient was ambulating without symptoms.Patient was evaluated and deemed appropriate for discharge to home. Patient wasin agreement. Patient is in stable condition, no angina, vital signs stable. Alldischarge instructions, activity limitations and medications were reviewed. Allquestions answered. Patient verbalized the understanding of the need for strictmedications and follow up compliance. Beckie ient will be follow up with Dr. Michelle 7-10 days. Patient is to contact our office with any discomfort or issuesimmediately.Past Medical History:Past Medical History:Diagnosis Date Advanced Airway Equipment Used Anxiety Atrial fibrillation GERD (gastroesophageal reflux disease) Hemiparesis HTN (hypertension) Hyperlipidemia StrokeMost Recent Labs:Cardiac:Lab ResultsComponent Value Date TROPONINI <0.05 09/14/2019 PROBNP 885 (H) 09/13/2019CBC with Diff:Lab ResultsComponent Value Date WBC 4.5 08/08/2020 RBC 3.79 (L) 08/08/2020 HGB 12.2 (L) 08/08/2020 HCT 36.6 (L) 08/08/2020 MCV 96.6 (H) 08/08/2020 MCH 32.2 (H) 08/08/2020 MCHC 33.4 08/08/2020 RDW 15.0 (H) 08/08/2020 PLT 100 (L) 08/08/2020 MPV 9.8 08/08/2020 LYMPHOPCT 11.5 (L) 09/13/2019 MONOPCT 9.9 (H) 09/13/2019 EOSPCT 0.7 09/13/2019 BASOPCT 0.5 09/13/2019 NEUTROABS 5.0 09/13/2019 MONOABS 0.6 09/13/2019 BASOSABS 0.0 09/13/2019CMP:Lab ResultsComponent Value Date NA 142 08/07/2020 K 4.0 08/07/2020 CL 110 (H) 08/07/2020 CO2 24 08/07/2020 ANIONGAP 8 08/07/2020 BUN 18 08/07/2020 CREATININE 1.20 08/07/2020 BCR 15.0 08/07/2020 GLU 95 08/07/2020 CALCIUM 8.6 08/07/2020 ALBUMIN 3.7 09/13/2019 GLOB 3.3 09/13/2019 AGRC 1.1 09/13/2019 ALKPHOS 75 09/13/2019 LABBILI 0.9 09/13/2019 AST 14 09/13/2019 ALT 15 09/13/2019 GFRAA >60 08/07/2020 GFRNONAA 60 1Coags:Lab ResultsComponent Value Date PROTIME 14.7 (H) 09/14/2019 INR 1.43 09/14/2019 APTT 38.1 (H) 09/13/2019D-Dimer:Lab ResultsComponent Value Date LACTATE 1.7 09/14/2019HgbA1c:Lab ResultsComponent Value Date HGBA1C 5.8 09/13/2019Hyperlipidemia:Lab ResultsComponent Value Date CHOL 124 09/13/2019 TRIG 86 09/13/2019 HDL 42 09/13/2019 CHOLHDL 3.0 09/13/2019 LDLCALC 65 09/13/2019Medications:Your medication listCONTINUE taking these medications Instructions Last Dose Given Morning Afternoon Evening Bedtime As NeededAspercreme Lidocaine 4 % PtchGeneric drug: lidocaine Place 2 patches on the skin daily To right hipatorvastatin 20 MG tabletCommonly known as: LIPITOR Take 20 mg by mouth nightly At 8pmcarboxymethylcellulose sod PF 1 % Gel ophthalmicCommonly known as: REFRESH CELLVISC Administer 2 drops into the left eye 3 (three) times a daycarvedilol 3.125 MG tabletCommonly known as: COREG Take 3.125 mg by mouth 2 (two) times a daycitalopram 20 MG tabletCommonly known as: CeleXA Take 20 mg by mouth dailydiltiazem 30 MG tabletCommonly known as: CARDIZEM Take 30 mg by mouth 3 (three) times a dayDULoxetine 30 MG capsuleCommonly known as: CYMBALTA Take 30 mg by mouth 2 (two) times a dayfurosemide 20 MG tabletCommonly known as: LASIX Take 40 mg by mouth dailyg abapentin 300 MG capsuleCommonly known as: NEURONTIN Take 300 mg by mouth 3 (three) times a dayHYDROcodone-acetaminophen 5-325 MG per tabletCommonly known as: NORCO Take 1 tablet by mouth 2 (two) times a daypantoprazole 40 MG tabletFor: Gastroesophageal Reflux DiseaseCommonly known as: PROTONIX Take 1 tablet (40 mg total) by mouth dailypramipexole 1 MG tabletCommonly known as: MIRAPEX Take 1 mg by mouth 2 (two) times a dayQUEtiapine 100 MG tabletCommonly known as: SEROquel Take 100 mg by mouth nightly At 8 pmQUEtiapine 50 MG tabletCommonly known as: SEROquel Take 50 mg by mouth nightly At 8 pmsenna 8.6 MG TabsCommonly known as: SENOKOT Take 8.6 mg by mouth nightlyXarelto 20 MG TabsGeneric drug: rivaroxaban Take 20 mg by mouth dailyDischarge Exam:Vitals: Temp: [97.5 F-97.8 F] 97.6 FHeart Rate: [69-89] 75Resp: [11-29] 20BP: (96-156)/(54-84) 112/76Pleasant, comfortable, not in acute distress.Awake, alert, oriented times 3.Moves all extremities.HEENT: No recent change in vision or hearing.Lungs: Clear to auscultation bilaterally.Chest wall: no tenderness around left upper and right upper incision site. Nohematoma or drainage noted.Heart: regular rate and rhythm, S1, S2 normal, no murmur, click, rub or gallopAbdomen: Soft, nontender, bowel sounds present.Extremities: No edema. Right femoral procedure site stable, dry dressing C/D/I,no hematoma or drainage noted.Pulses: 2+ and symmetricSkin: No rash or lumps.Neuro: aphasia, right hemiparesisLymph nodes: Cervical, supraclavicular, and axillary nodes normal.The remainder of the physical exam is noncontributory.Discharged Condition:stableDisposition: Home or Self CareFollow Up: Dr. Hilario in 7-10 days.Signature: Jovon Lyles NPDate: August 08, 2020Time: 11:52 AM Name Value Range Interpretation Code Description Data [facility](s) Supporting Document(s) ID Date Data Source [id number] 08/08/2020 04:20:00 PM EST MED[facility] ([facility]) Name Value Range Interpretation Code Description Data Chela e(s) Supporting Document(s) White Blood Count 4.5 MEDENT ([facility]) Red Blood Count 3.79 [facility] ([facility]io [facility]) Platelets 100 [facility] ([facility]iology [facility]) Hemoglobin 12.2 [facility] ([facility]) Hematocrit 36.6 [facility] ([facility]) ID Date Data Source [id number] 08/08/2020 07:31:55 AM EST [facility] Name Value Range Interpretation Code Description Data Chela rce(s) Supporting Document(s) WBC 4.5 10*3/uL (4.1-11.0) [facility] RBC 3.79 10*6/uL (4.60-6.10) L [facility] HGB 12.2 g/dL (13.5-18.0) L [facility] HCT 36.6 % (41.0-53.0) L [facility] MCV 96.6 fL (80.0-95.0) H [facility] MCH 32.2 pg (27.0-32.0) H [facility] MCHC 33.4 g/dL (32.0-36.0) [facility] RDW 15.0 % (10.5-14.5) H [facility] PLT 100 10*3/uL (150-450) L [facility] MPV 9.8 fL (7.1-10.7) [facility] ID Date Data Source [id number] 08/07/2020 05:11:26 PM EST [address] [id number] Name: ROBERTO James MAIRADOB: 1950Sex: MOrdering Provider: Juaquin Flores Prov: Juaquin Cannon Provider: Procedure Performed: XR CHEST PORTABLEExam Date: 08/07/2020 16:57MRN: [id number] Number: [id number] Class: InpatientAccount #: [id number] for Exam: ppmTechnique: AP portable view obtained.Comparison: 08/06/2020.Findings: There is a new single-lead pacemaker. There is interstitial pulmonary edema, slightly worse compared to the prior radiograph. There is elevation of the right hemidiaphragm with associated right basilar atelectasis, similar to the prior radiograph. No definite pleural effusion or pneumothorax is seen. The cardiomediastinal silhouette is stable.IMPRESSION: 1. No pneumothorax after pacemaker insertion.2. Interstitial pulmonary edema, slightly worse compared to 08/06/2020.Report electronically signed by: TAYLOR BUSTOS On 08/07/2020 5:11 PMWorkstation ID: [id number] Name Value Range Interpretation Code Description Data Chela rce(s) Supporting Document(s) ID Date Data Source [id number] 08/07/2020 04:22:00 PM EST MED[facility] ([facility]) Name Value Range Interpretation Code Description Data Chela rce(s) Supporting Document(s) Albumin [Mass/volume] in Serum or Plasma 3.7 [facility] ([facility]) Alanine aminotransferase [Enzymatic activity/volume] in Serum or Pl asma 15 [facility] ([facility]) Calcium [Mass/volume] in Serum or Plasma 8.6 [facility] ([facility]) Carbon dioxide, total [Moles/volume] in Serum or Plasma 24 [facility] ([facility]) Chloride [Moles/volume] in Serum or Plasma 110 [facility] ([facility]) Potassium [Moles/volume] in Serum or Plasma 4.0 [facility] ([facility]) Alkaline phosphatase [Enzymatic activity/volume] in Serum or Plasma 7 5 [facility] ([facility]) Protein [Mass/volume] in Serum or Plasma Laboratory test result [facility] ([facility]) Aspartate aminotransferase [Enzymatic activity/volume] in Serum or Plasma 14 [facility] ([facility]) Sodium 142 [facility] ([facility]) Glucose 95 [facility] ([facility]) Creatinine For GFR 1.20 [facility] (Car [facility]) Urea nitrogen [Mass/volume] in Serum or Plasma 18 [facility] ([facility]) ID Date Data Source [id number] 08/07/2020 03:48:35 PM EST [facility] Name Value Range Interpretation Code Description Data Chela rce(s) Supporting Document(s) &PDF [facility] RROHBy9mTsDPIeDl16/KNUklLDFre3SyOFraXHs8GVxiKQGeF8OodSosAX3RC0GKFKHOWVDNO63OYsCO 0b3 [file] TY3PeJWwWVVsENEjmCHwDIh1Z33plUCoYMclQO0OSXX+Neelam+Gv2YHDLqSGUwPMJuVlNiLTCKYdSjM5Gi Y8TMb9JbJ6JsWH00bZjgfnOkQAkxHG2TRQ5hRKUpWNBFYN1PkCYlmO3aaiM5KUSgHIPTNnVeG59ywVCp SBNkHST1UGNkBh8FLSShB1AiutGouRoqmcXtCWVtOX MQYH6BKTrdsaNctOZsgQbwYN92jEeqLX9CQa1XHyFfGD1aow4BgRNsTb6TVFM4YE7ZPLLgGFVhBGYrSH K5YIUnVfGjAZfiAYPcRCKgWFM0HGLeJFCdLJ6IBaNxMKLxSOukZfgfNITqAYBuwu7SDDFdIHE8JTtgRO ArLZTpIPCwWKczKNJlMRRdCJd0OIUaHQUyHV3IVjHp DDYuLEZ0IJvdYBEtEFDbry4BKIMgELI7MEE7SdDsKJPdFTWeHXbwKMFwJNA2EiIxSLSfAKAeUB0KAqQh DPKcJPl5GgSjOCMdJZUfaq9UOZVzMJI7DVU6SQFbKXUpOKDbDInmMNVtLOU5DsU9JRZdMKNwDV4VLlWj IBEwQNz8AjEcXRExKCUwcy8AGEWrSCZ1EHR5XUWtNV VzOFBpPKvvWLBjSMFjZkZ2BXThKAFmPV9ALxQfRWGkREJ6PeWcEKIiPARsch3RBFDuGYA9PLHzScMyQI VnQVWuTGkxRUKzFSFkFrB6LQHwALGbEI7ZZjNmWJYgPKK5IpIcBNJeGBXvnd5OVFGuMQS8HKHjDgNzDY NnOUWuVBfjRHRgHOCxNeyvCYEiPAVeSA9ZKiZfOOQw PWSuBtVjWMYaPTUlbi6YLENdFFNpTcl5TEFdHDBgHGWyHNhyEIEiDNU6FTp2MJGeOQTzNO5XTjPcNLZc PAodLMMgORCuNMCiiq8DFWLyNMAxLHM9WSCiKYZkMTYxBNgpZFLgLKTiHaBiYNSoUUZpYM3KEuSuUUFv ZIY8WYltFIEvDREbvx7TLEJgUQTzZUL4JSUoHJJuCK TjPFgeUMThDKXfBrJ3DKEiNECdUK9GLxTgHFHqJVO9HKMaVLPrCHKfpe3ONXPwCSMnPzIvEZFlFHWqGC EoTWaeESEnEDPtFdP3ANWjYRKyEV2QDwGvZBSiAtPpMZitYEDoYAWlon2SQBBrGWNoCRQwEFAcCFXdER XtDTnvSMPoYBR6WQU3TGReETHrCR2LBnBmCGOuYdP4 TyCgMFQcJAMuyv0DUXMhNRVyCLdzAxQoJCReQJJtWDecHYZmBCH8DTClOZHeJPEpGP4ILnPvNEUyVdOc MncbKVHbJSFgok5JIJToVWNjBiDiTqIcZRCfHWFwLRhdRNPmXDE0XAZ8DZYmDNZqBH9SLwYfQLRoIxz7 MbDzHMIsABBedf5RLCYjGDM6WsP0IVGrKRDrSDVpUK qnNKInALP0OPZ0VNQkOBMfMP3HUlQdFBZvZDi7ClAvBZFoUXBrpm0ZREHxJWK9CKygHdRfHYAbEZOoUC fsLLYwHUK8EBuvWJRdIYFyEM7KSyHuWPEiDUB1IZDxOXSaVLIbrh0CkQFakVkfwv9MGDmBAa6RmVmfCZ Q9ZKpjWm5kqOK3UuMfBHFDVg6RpcTlIHMyJPAWLJjl CDDbHBEdPST9TwQ2KjLfOFS7OgKeQWh5DvCoTBF2YQVgRTH7QdZ5MdIeOdUcHcqpFLQ4HPBcVyI6DPhe IXQ0RTMcTVT1HUH+OQ7iYQk+Mj1Wm1GfimY3edZhUHu6MSQ8TO3WHWJTU0TUEc== ID Date Data Source [id number] 08/07/2020 08:04:56 AM EST [facility] NT INFORMATIONPatient MRN Name Date of Age Gend*PT [id number] Roberto Gil E 1950 70 years M IPPT Location Admission Date/Time Visit ID Attending [id number] 08/06/20 1114 --- Juaquin Sylvester MD([id number]) EPI ID CSN Admitting Provider [id number] Juaquin Sylvester MD([id number]) Attestation signed by Juaquin Sylvester MD at 08/07/2020 8:04 AMATTENDING ADDENDUM:I saw and examined Mr. Gil today, and agree with the exam, assessment, andplan of nery Scott, noted above.In brief, Mr. Gil presents with sx anabel/pause.Problem List:Tachy-anabel syndomeSx anabel with 7 s pausePrior CABGDVT sp IVC filterCVS/Aphasia, R hemiparesisHTN, HLDPlan:PPM/MICRAProcedure was discussed with patient risks, benefits, and alternativesexplained. Potential risks include but not limited to pain, bleeding,infection, injury to any body system or organ between the skin and heart(including the skin, subcutaneous tissue, blood vessels, abdominal organs,heart, and lungs), phrenic nerve injury and diaphragmatic paralysis, possibleneed for a heart surgery or pacemaker implantation, heart attack, stroke, oreven .I agree with the plan as noted above.Indra Sylvester M.D., [facility], [facility] CENTERClinical Cardiac Electrophysiology08/07/2020 6:51 AM --ADMISSION HISTORY AND PHYSICALName: Roberto Erika Maira Gender: maleDate of : 1950 Age: 70 yearsDate/Time of Admit: 08/06/2020 11:14 AM Code Status: PriorPrimary Care Provider / Referring Physician: Roby RAMANant:Current HistoryChief Complaint: Tachy-anabel syndromeHPI:This patient is a 70 years male with the following medical problem list:1. Permanent Atrial Fibrillation on Xarelto2. CVA with right hemiparesis and aphasia3. CAD s/p CABG4. PE/DVT s/p IVC filter placement . Hypertension6. Hyperlipidemia7. CellulitisHistory is obtained from the patients sister, Marie, with patients permission,as well as records from Dr Hilario. No other records are available.Marie tells me that [place]. He was seen in consult by Dr Hilario for atrialfibrillation - duration of arrhythmia is unknown, with complaints of fatigue andshortness of breath. He was placed on a holter monitor which revealed AF RVR aswell as period of slow ventricular rates. Dr Sylvester was contacted for PPMplacement. The patient arrived in the ED today for Covid testing, inanticipation of MicraPM placement tomorrow, 08/07/20Past HistoryPast Medical History:Diagnosis Date Advanced Airway Equipment Used Anxiety Atrial fibrillation GERD (gastroesophageal reflux disease) Hemiparesis HTN (hypertension) Hyperlipidemia StrokePast Surgical History:Procedure Laterality Date FRACTURE SURGERY Right 09/15/2019 Procedure: OPEN REDUCTION INTERNAL FIXATION (ORIF), FRACTURE, HIP RIGHT HIPNAILING INTERTAN BROOKS AND NEPHEW; Surgeon: James Willams MD; Laterality:Right; 1042 09/14/19No family history on file.Social HistorySocial History Narrative Not on fileSocial HistorySocioeconomic History Marital status: Single Spouse name: [...] file Gets together: Not on file Attends buddhism service: Not on file Active member of [...] Not on fileSocial History Narrative Not on fileMedications and AllergiesALLERGIES/SENSITIVITIES:AllergiesAllergen Reactions Depakote [Divalproex Sodium] Other (See Comments) Unknown Reaction(group home record) Paxil [Paroxetine Hcl] Other (See Comments) Unknown Reaction(group home record) Simvastatin Other (See Comments) Unknown Reaction(group home record) Wellbutrin [Bupropion] Other (See Comments) Unknown Reaction(group home record)Scheduled Meds:Continuous Infusions:PRN Meds:.PhysicalBlood Pressure: BP: 115/77 Pulse: Heart Rate: 71Temperature: Temp: 97.9 F Respirations: Resp: 18Admission Weight: Weight: 95.3 kg (210 lb) O2 Saturation: SpO2: 98 %Today's Weight: Weight: 95.3 kg (210 lb)Physical ExamPleasant, comfortable, not in acute distress. Able to answer yes/no questionsAwake, alert, oriented. Right hemiplegia presentGeneral appearance: alert, appears stated age and cooperativeHEENT: No recent change in vision or hearing.Lungs: Clear to auscultation anteriorlyChest wall: no tendernessHeart: IRRAbdomen: Soft, nontender, bowel sounds present.Extremities: Chronic edema RLE, in compression wrap.Pulses: 1+ and symmetricSkin: No rash or lumps.DiagnosticsLabResults from last 7 daysLab Units [id number] mg/dL 1.12Results from last 7 daysLab Units WBC 10*3/uL 4.5HEMOGLOBIN g/dL 12.8*HEMATOCRIT % 37.7*PLATELETS 10*3/uL 127*Results from last 7 daysLab Units SODIUM mmol/L 141POTASSIUM mmol/L 3.9BUN mg/dL 15Assessment & PlanActive Problems:1. Atrial fibrillation, chronic/ tachy-anabel syndrome: Admit to telemetry.Update labs. COVID-19 is ruled out. Will continue home medications. NPO aftermidnight for MicraPacer with Dr Sylvester tomorrow.Hold Xarelto - last dose unknown.2. CVA with aphasia, right hemiplegia: Wheelchair bound. Does not have amodified diet.3. Hx CAD, CABG x4 . HLD: Continue statin.5. HTN: stable6. Dispo: Pt lives at home, is wheel chair bound. He has an aide who is withhim daily to assist with ADLs. He is reportedly noncompliant with medications,per the CM. He is followed by [facility] [employer] and his case fitter info islisted in Sticky Note.7. Full CodeMed rec pending - awaiting med list from PCP office as well.Patient follows with Dr Hilario.Signature: LUISA SKY, NPDate: August 06, 2020Time: 12:37 PM Name Value Range Interpretation Code Description Data Chela rce(s) Supporting Document(s) ID Date Data Source [id number] 08/07/2020 09:23:20 AM EST [facility] Name Value Range Interpretation Code Description Data Chela e(s) Supporting Document(s) SODIUM 142 mmol/L (136-145) [facility] POTASSIUM 4.0 mmol/L (3.6-5.2) [facility] CHLORIDE 110 mmol/L (100-108) H [facility] CO2 24 mmol/L (22-31) [facility] ANION GAP 8 mmol/L (7-16) [facility] UREA NITROGEN 18 mg/dL (7-24) [facility] CREATININE 1.20 mg/dL (0.80-1.30) [facility] BUN/CREAT RATIO 15.0 RATIO (10.0-20.0) [facility] GLUCOSE 95 mg/dL (70-99) [facility] CALCIUM 8.6 mg/dL (8.4-10.2) [facility] GFR 60 ml/min/1.73m2 (>59) [facility] GFR ( AMER) >60 ml/min/1.73m2 (>59) [facility] GFR INTERPRETATION [facility] --NORMAL KIDNEY FUNCTION OR MILD DISEASE - GFR >OR= 60CHRONIC KIDNEY DISEASE - GFR 15 - 59RENAL FAILURE - GFR <15 Est. GFR calculation based on the MDRDstudy equation, which assumes a steadystate for creatinine. Est. GFR should notbe used for medication dosing. ID Date Data Source [id number] 08/07/2020 08:47:57 AM EST [facility] Name Value Range Interpretation Code Description Data [facility](s) Supporting Document(s) WBC 4.7 10*3/uL (4.1-11.0) [facility] RBC 3.86 10*6/uL (4.60-6.10) L [facility] HGB 12.4 g/dL (13.5-18.0) [facility] HCT 36.8 % (41.0-53.0) [facility] MCV 95.5 fL (80.0-95.0) [facility] MCH 32.2 pg (27.0-32.0) [facility] MCHC 33.7 g/dL (32.0-36.0) [facility] RDW 15.3 % (10.5-14.5) [facility] PLT 106 10*3/uL (150-450) [facility] MPV 9.9 fL (7.1-10.7) [facility] ID Date Data Source [id number] 08/06/2020 03:14:[address] [id number] Name: ROBERTO BURGOSTESSDOB: 1950Sex: MOrdering Provider: LUISA Patelhochung Prov: LUISA Fallon Provider: Procedure Performed: XR CHEST PORTABLEExam Date: 08/06/2020 15:10MRN: [id number] Number: [id number] Class: InpatientAccount #: [id number] for Exam: dyspneaTechnique: AP portable view obtained.Comparison: September 14, 2019Findings: Markedly elevated right hemidiaphragm similar to the prior.Streaky opacity right lung base likely atelectasis and similar to the prior.Mild pulmonary vascular congestion without significant pulmonary edema.Sternal wires overlie the mediastinum. The cardiac silhouette is prominent.No pneumothorax is seen.IMPRESSION: Markedly elevated right hemidiaphragm and probable right basilar atelectasis.Mild pulmonary vascular congestion without cherri pulmonary edema.Report electronically signed by: LAZARUS BASURTO On 08/06/2020 3:14 PMWorkstation ID: [id number] Name Value Range Interpretation Code Description Data Chela rce(s) Supporting Document(s) ID Date Data Source [id number] 08/06/2020 12:51:46 PM EST [facility] Name Value Range Interpretation Code Description Data Chela rce(s) Supporting Document(s) EKG [facility] QLYIHe0wWfYAWrMil4OdOgWrNMWlSX0uhar7I0Y3nLWcO2MqbLYut1tbT5McW4SlYXOhXBSHUO8IaDMh jb2 [file] KOSRozClear[facility]ondaleeQIjUIeObKjkEeO+bxjiaKTQusdXVTZ51JZPukHHAkngEiVuLOXOGOnlvN/un9JM5MtmYbR [file] 8KGhRmowFrxWxsyn1ypZQgviyGn9zfzjmg9fSj+Dietetics Director [file] /aGM+4I7S9I2tzWiIB5Um2S75S46s44B00Yb2G/oB/ QT+sf5cn8Ty6Uxce4w9rTx/Xn2icu+SvG98WjNiLQpB9/bwFvgb0LftODNIdfFpdjF2G55Z+EgVYZ+Qj +mO3Hq7Pcja8p62wu4yI/l0su+mkbGTX3L7tU3D7Lx3HsM235ZFrOP+kV7t01DG3Ow2Y0ft+btJGg002 wdrRvIV0vbra+5FbUfTF60+t6Vp82l8UBD2NXmGdrN Q2w1f555Ubr16Y/YV/goC4zs0Z1mS2Ca7RmG+kgORYg7YRN3khuocM8lI/NzBHdUueoJ++eWmxe957Ws g71Rvl78Eat08B64Ps1HMz4y3ExlmsQjS24fYlriv9gP9Ka+bxn6A/1vvpaTrhm3WK/Ed7g8kJhX82TG OqtaV5L+8lz4LaeS6prMvVk9DV7FTse08zYKmtPVm6 MlKdqbSz/S9eX2h3cz0YUPcLAlJPB1x8qyZyqGenj9iWyRDLRcLd5+zZ80zGJF9xQ8+rL+tXfuLP/0Wq kI+4tinMVnr3lxO+etfkc05Pdb8dqql9ma/NPn5/WvvVPjP+bnlv0jiuIG++xMwke81OmtXc3qCSsNni iq9Yi2Q/vqHh/tzXKHvkM/oB+wZ0e5ExvICzC6u162 Dcm45KV/v/YOjf+ld3806TVspRV9Lk8R81KjuP/y3sK+yn4I+yrvP+yrq+80vjwzV3/1st030Y3C++qV bg37ias/EvbVvYdT/Nl64lLbfNA/hy37yhRN4ftaaTRj7gOnE+wt0AWqg1uprpOjug6fyE/SjWYTz5UL sK+Pnsnvl6bsk3Hz8rJg/+z3Slif9snn06U+mlrhkn 8K3UEJT7V0cDjj/L0nUxtoDNYJ+j3aDBQhRZC6/PPLUBDlv/oUYsIVa7aX9rCNQ42djQb/6b8j/UA946 dvKs+f1eB7jB/GuIqwivxGjqiK/MZsWr/aus+pO9ppd2jNvIm2NEKfbu9OuGtkMcPqMltQZFRl/xjBFP l/RSzFX5+3KP/+9224eq8Uj046/b8t/hdAe8H0KA11 vy3m+YiisJZ1/v7f/mX5V0/ew6+9zCL2e3vkp31CwTg1yFjDUU9B5J2+5uQInshxErETfx/paK2tI4g8 GcOHnw6KdHi2CfLums9ZuCqqdwIo1vpFVsS5afWmql2kvK1QIiXDMcGk3c0CUVN9ktd0aQnOP7/vweZl CreQM2K4t/+uQgg8g0tUkK38hA5xjXa8VyschS3GzA 8a91e72icw/43nT//Qt3266SySdn/s3CJ8222vTJ6vyhFXMmvwlH3CGm/QH5V/+niXRWBElaE/0J/Qx7 k/+6kO8VuCg//oZ1/27xOWZI1p9oVVowfZ13/4/dJfxcu6gtXT/OyrX+3bfM69tszv0MngE2+t92Uhxr cf9HR9Wo9xPB0Bv6U/pf/FF2QZ3ts+xrmDS1BVyO/t MT8AIrSPtbo1KtxVxHx+0qbKX1I5Zv/xQFwlGh7vwElzsosU/YZ+Q3+gR5Ug06qp4SSbEj2q6ba1mSX5 zid7Ncanb7s3pyS5Rb9VYrdu03g45xMj1Q1JJdLV7R/K0B/oT+cY96CLpWCl3Qg11M0w/b/pU587vNg/ 1+qop1d/avKqSxB4Xp2eirEaA6pUisG7/aEM/YH+lH 5/Y5nXG4B/u01E0XkpEXNf1b76D2d6rH/50yP4C8kO7IOD/4R+Qb+w00ZWdrFe0jfuTEk+fB/H6ZJ8b4 qfj+P4aK/u+oD4c7Zjuh/Mf21P3X7e42G1X1o69Q1vLj+u/xwJFf5pWsR0zcNhSLTaSemhb4n2JlDawt N51Ewh1pbsQp+gH+8+ArAtivRg5Zor8eojA17fC1/2 uqkRWLCs7tFWx3mT/tde9yz/9K5j/EP5p4/2rQNbIAs2Zf0EwcP+qPzTd+l/7G6d9RxwbslgbcVqJ/Ag FoSi/NNP6X/o8HoyL3WLV9k+V/Kt5g8XJ+3lAr7h0/0bAQe/JDuEG0RyxGpX/NrbPul/1G8v2vkZm7/U bJR/7W0u/a+9zaX/tbc16X/cyY419eCY/YZ+Q/9rb+ ot60ebq1xmz/pwf45OhOqHTpwon7ffed74W/7sj5k9Z4x9zV/23jL0A/ikm906Or+NlvB7aP+OIvp7n1 BIKeIsUO68S08S4UswWZ8Pf0KSi/LGmS49yg48Zx4MZaahRpjyH33VALMQE5mvmrSPOzwqk8rewsChet m/M9DwT2Qi1pg07ieCG/VBrOVy0N/a2/S5v725v00i M+lstSIGK8kb2sBfPUqTKTdcf6sqAGpn/furedhYd6C+hH2ec2a+6VvUE/ST79qQ5zMzI/FOnfR6l93j p0PfoR+rE7McXT97J/LR1Lju02OXA3r8ns/ZU2ts5AX0kM55bgLk0Jr5F+/Zl9sn9Lu1DA6ZSCe62U0P HD9w/IR+Oa6Ye8M1C/por+bqsK+44hqky5Bi7rRqSt /tjW+x8Px/ZYfeoW/QN+e12M48Zl8UoqU/oV/QL+w58XHdkvmX1toqV/ZVlsO+qiNUpxepn70gy+gd+g Z9Q/5C7otAYE/+I6pLeVP2azuEvTPA7B9682C+FeufaT24DreQoADwmQpfMN3+44eMjDD21bBZdh/L4d CiJprIjtLrgYhy55cdlES/pricilla+Qz+eH9JR7Za0Y/oF /YZ+Q39e/4QHf/ZbOPBX+gZrvET30qaNE+yV/Z6MhJNVExek54IgYk+wtQbIUK7a3HMbc9ebvN5f+zS8 9x92peid+Oy/8nrvx/DYz/l6RVVeYYw//g4d4LzeQKD/6VlHXKx138pW+Or/eQjvOXuC7uhGU96/control panel tester+ 2tu+ANvpqM9sjF24iNd+TjVg6lph/LV3u47/tXcdHf Nrr/ZZwkPftZYVDvp/tpTO/dANj5Azbp2gJjrh/Hf/8f+qH8K+3griyTwxWGQ04W6d+qsreRW4ZqgN+0 e0Vnxtf91iLwfqQ5dSkbhn7PUs643btH/twaDGn6rc9Q+g2cwffx/fxeGNn9+i3Hcy4mCgg6+7wwdyo4 5mbnztAGay7g66gtchzMUHmll00T892VnTpqG5lXCc LR0e+GlLhwN+9iFA4zJ+B3qXZWhS9Nxsk+thcIkJX3J/xuv81l3vyK910BH4BLPo4Jpq7j7hai3/o2/o pn0tnq77dokAw1Q96J2Lj9Up7Mi+K27TT3X8EELfPjyf+MhuGV1uA62i4QN7Zu0RfeN+2XmTfa2W0Qy4 y8+aIrSz0Jqdh/Hsip93Hqeuwps+Qd+a56Y3lwbqF2 kcyr7S+WW15IE47axdNl/HQNhX+WtQnJKo2WypaIVwv4Sym270VczPrjSehbbqE5Q+drZf5xZCYXRy6E st/OfzWy/c5++YX/alrU4BghV8zb4tw6A+jrZIixFcy20Oe1hSM/o+Da/8WkcIqXXLS7tI+ZxuPb/Sx/ ObZYfeoW/QN+b1tUCaA8yQTphMZByNrSQgDmmO+pYP P/k7t+z63g8v+VeO+arr+VknsmwsC7Y/71qrbGlD4K6/63rE0phwVO2f5Bn0Iavo00vESbhSpf9Yp5aH VzkPa/8jCRsc6Nhmyy5mjV0ZMbroLoPAc2O+0J+nn1q/umXoY/0qxu3U+eAEwmwe7inqw8RiB9kOzvea HfVo/TmW7Iszba3edxAk6M/oN/Qb+uR9soyRo/X2aV p/blHW+lFEmUvqa96kIo4jHAnDw+m4j1WeRJ9BoE/2uo6v/SRxwB2cpLXw9d45auA1gcd2sE989fDeR+ 7NkvZkpKh4e295Hokw+to/mmFfvTLqj/snIw6rlLz8w1c0oH+2pY/8jtR27OrxTvXu+q54lo83t4cJO4 l/3Sg12gi3kjlVqtcsO/vSThxzmje6C29nTT/tndJH t2HblcslrEuhPEFYd3b51u8vxb0b80E1tOsHO/eQpv8Dxzg8xV+XVYFijShia74J0HW5atp3Ko7hr81d l69Upc6z2/zkf0JVua85tpK/oT/Xt0XPaoYX1Oo0Sg6E/WZ0vuvN+hW7qs9wZDryWEiSevne6ADaqdIP tHegvQPtHWjvRHvnV//LxL9j6N63Pv3A4EZfW/Ro7x nnE9O1Ldgyp45SU6p/cDzaG/sN0fVp1FjaQ63xX41f5kE++uLdN8O+ciRF6yU8srzwy3mq9Ptp88HEq/ EDxw/oJ/QT+zC6fk5Ws/AzbYzghErp4Znc5Cq9Mcc77dybc7TyqO4GX+md7M60zZc5bm86IDH/oZ+op+ LBZrjc4Gx1cu/VK+P4g+PDf0Pv+vC/BqxXSQ9zfxfX 8L+Sj8cM/yv5/2zat0pjg3/5A8/Tnh/vDP8r+fHO8L+At8I05laUPHP9YMm0jwt/q3sPaG/YVznOZV/p LMz3CebD75/jjB22Q27foTCa7N66pyenEZ+rF40F7ehrVD69+wl6Xoj5cu8YtL6L/2ki5NSm14j3pgjr 7/0l+5xtxetryKJsneT13bucT/5XruPL/2rJ/2qqLe UPvNL/Ks6V/3ODS8okn1nE/lfRP0v+P3tvr44wR/yvpvoq/K/k27nC/+gk876l8OW2ZBhEvsiXxqIS2j Cf/9sK/ju6Hw5sa4KO7dz/q3v/5c+/rPz5l/zbb/n5Gy/9i2gwiWRdazPe35/yb4+xtNK/kau001hjOZ 8ofXvjcyl+1ND44eYnST+1GX29cE/mOHXd31owhq4L /cLxG/qN4+G7grWJl/9KfZj+B1AvukD6Vu9O59Yfb+orae2L6DNW6YG3MAkn+EH1g+IH1T+VIfw8sNc+ UGOjVTzdUvyg+csme7dj+e4wdJgad3t03Q53hvwkkc/Cl1v1Vs2szs/UGJZ/u54L+bdneUA/bK98OrH/ XXPaCv/7hO8Udx1HZul2oxK4S/pT+vF9KIc+6hyKp8 gj6LHwzFc/+XaNmp/LaYJSIZ9jAK+7McZQsFRwz99+Y4ZAeiAjDlIKx0gaMEfrA04J+sV8fEawEeLxH/ NYRR6waX+34Ler3TW24J86Is1S835I1DrhWlvMnzQ9lv8uz+Kdl+ACowg7TC7DB74asQciDN+Hr7r8Va eq+EU8Jq7fAEPmlJnfM/Qa6vVwz45n7Zk6D1eUg+Hf fssxP+a1U5nooL6f88qP6Mw0cKAy6m2k5h7+uow0Lb753eKy8fanI04f7M55tP+wE9RAlX6Gt/YqfvCW od/Ux8IcFX4urdMFfxu2y19y94mg3BY6Mm2+10uykVEQ3STRlf1EL1Yc+MGF+ZMY0JRQxw7x+X49Wo2f vPvc8m+/5Tc+91fjeSt+MOrZih+8ZRzfcHyDvkPfUU /FS+6MH5R+kjmBu6Wr+JU83tT9Y79O+cri3Dmz2Iz7oaq1wI6E/OAtQ+/QO/QN+fqD2EpmqOWz01HPG/ QD+svruf65mPb/t+FVtnp4pfzjnh+5yh048mKiMO+1L04yI5dou6p3vY+27KtbHnVMvY+4M0PUff90eq D+Af1E/wK2X9s7492X+rKft/zbt/ClE8r0jn+8ZegN eoPeoXfoG/QN+a85b83WL1Jgka7KsqZ3s6j0/Y54TwgiGavHwW+smbj2Y2iNscvo4J41t32arrCvpZ/7 9xfz015i64bN6BXJHgyc9Val2tv31MA+kstw9Cw1M/oN/YH+kS17NK4K+vr+0lNthC86EoP51ebF0jqB r/wMW/kZ1G/Zu1AF0Q/KvtJ/FnbNd6AsO1PvRq/tUf GhW/WZdjBRX7u9pOU4xGB/eIfG7sSfFloTnaLHn9BDuJOinsJ6fSS+tbV+pWdK/u3qw1i/4p7QivVg3B vtWL/SHt9O/yvdg/DLSG2qQ7jZ4hwaiH5zHwGs66tse1nsg2+6N/nzR1n+7br/VevtW+jKlllQdL3ceI +pTxb+X+Iy2Y3zS2VxE/N7o2N0vVPwhMmisuZaBuFs ucO+zys9k21QD5JS+EHVH/WRT4kWGjke6TCrK2OieD2hs37Unwt1hiA4jah7kxbaS/13sq/GuwzOIJ84 am+8fzM/Q5br/eblG4JhFt+893p2/m0J2617ap9xh0t57Z61Kir9bftY93bO6Ju+tX6l/1PrK0QGem1/ v4afSqtphgYaiS7arZJq2ztsw9J9WTpdv2YD8Iz0Q/ oN/Yb+4LrKF/TTn6/tUO8iu24jbe6F+XPOV/KGB6meNOnJQ/OA76vB47jwPfizoyz5R/oJ/YR+Qb+g39 AgXUgofzrb3EBRO7Rn1zCX1Ble7D62Q03/L8f880UG+t29e35fw8mR554iD4oewmgEFMz7X4ySU/8/tj +UoT/Vr3X55Q0i1R404j6bWh0iFc9j/p4qZc2Wpu85 bN8Ku33ciy5C5I++6jxpNk1e4A/oJ/QL+oX6N+rf0B/oT+deB8nsn1Gct09og/3BE/cYYyb53w+Kue7I /8avNhurjbC1aRljN/nWLjhd8T1w/xPfLa4fF+X03D3jxBnw5lzn4TBSqhjz64K/e7Q/zAEJ5pU56S5q ex/TG75tnN/On3RvJZ/aq/8TG0640/7gLVc/aH/wlq E/0J/Sa3/wlqv+UfvdZxj0+E8P3VddOsuwI/tOUz5Yh0LyCN+AHu3V/mCWF/A1i2ZTY1sR8M/oa3//KH 1PP1rdcvoGlb+0Asj1vavgL455+T3gKlvVbzmaLWAYYno7rrE07yWhD2+TOP91lG80qz9q5en+ypkVX3 SebVrnUbPeM0D/zqhGh1RZC8q9J+wr+Bpr3xCuksnr mCumgvodfts4XaaTfCLN/NLKXw7Typ3P4b7hV/RhT+v3wQWDJy/2T5ba5P+Ariana/+V5rn5X+luVr+V5qr [file] UgMCBSCgo+HviqvKMefRicBMJPFTdcGmDBRMYEY6G= ID Date Data Source [id number] 08/06/2020 12:33:41 PM EST [facility] Name Value Range Interpretation Code Description Data Chela rce(s) Supporting Document(s) SODIUM 141 mmol/L (136-145) [facility] POTASSIUM 3.9 mmol/L (3.6-5.2) [facility] CHLORIDE 109 mmol/L (100-108) H [facility] CO2 26 mmol/L (22-31) [facility] ANION GAP 6 mmol/L (7-16) L [facility] UREA NITROGEN 15 mg/dL (7-24) [facility] CREATININE 1.12 mg/dL (0.80-1.30) [facility] BUN/CREAT RATIO 13.4 RATIO (10.0-20.0) [facility] GLUCOSE 90 mg/dL (70-99) [facility] CALCIUM 8.8 mg/dL (8.4-10.2) [facility] GFR >60 ml/min/1.73m2 (>59) [facility] GFR ( AMER) >60 ml/min/1.73m2 (>59) [facility] GFR INTERPRETATION [facility] --NORMAL KIDNEY FUNCTION OR MILD DISEASE - GFR >OR= 60CHRONIC KIDNEY DISEASE - GFR 15 - 59RENAL FAILURE - GFR <15 Est. GFR calculation based on the MDRDstudy equation, which assumes a steadystate for creatinine. Est. GFR should notbe used for medication dosing. ID Date Data Source [id number] 08/06/2020 12:18:48 PM EST [facility] Name Value Range Interpretation Code Description Data Chela rce(s) Supporting Document(s) WBC 4.5 10*3/uL (4.1-11.0) [facility] [place] RBC 3.98 10*6/uL (4.60-6.10) L [facility] HGB 12.8 g/dL (13.5-18.0) L [facility] HCT 37.7 % (41.0-53.0) L [facility] MCV 94.7 fL (80.0-95.0) [facility] MCH 32.2 pg (27.0-32.0) H [facility] MCHC 34.1 g/dL (32.0-36.0) [facility] RDW 15.5 % (10.5-14.5) H [facility] [place] PLT 127 10*3/uL (150-450) L [facility] [place] MPV 9.7 fL (7.1-10.7) [facility] ID Date Data Source [id number] 08/06/2020 11:35:00 AM [facility] Name Value Range Interpretation Code Description Data Chela rce(s) Supporting Document(s) SARS coronavirus 2 RNA [Presence] in Res piratory specimen by DORA with probe detection NOT DETECTED [facility] This lab was reported by [facility]. ID Date Data Source [id number] 08/06/2020 12:56:27 PM EST [facility] Name Value Range Interpretation Code Description Data Chela rce(s) Supporting Document(s) SPECIMEN DESCRIPTION [facility] INFLUENZA A (NEG) [facility] INFLUENZA B (NEG) [facility] RSV (NEG) [facility] COMMENT [facility] THE [place] FDA HAS MADE THIS TEST AVAILABL EUNDER AN EMERGENCY USE AUTHORIZATION(EUA) FOR THE DETECTION AND/OR DIAGNOSISOF THE VIRUS THAT CAUSES COVID-19.PERFORMED AT [address] [place] [id number] COVID19 RESULT (NDET) [facility] THIS ASSAY AMPLIFIES AND DETECTSTHE TARG ET RNA USING REAL-TIME PCR.TESTING PERFORMED ON [employer] FinanceID GENEXPERTNEGATIVE 2019_NCOV RT-PCR RESULTS DONOT PRECLUDE 2019_NCOV INFECTION ANDSHOULD NOT BE USED THE SOLE BASISFOR PATIENT MANAGEMENT DECISIONS. FIRST TEST [facility] IN [facility] [place] SYMPTOMATIC [facility] [place] DATE OF SYMPT ONSET [facility] ICU [facility] [place] CONGREGATE CARE SET [facility] ID Date Data Source [id number] 07/21/2020 06:21:00 AM EST [facility] ([facility]) Name Value Range Interpretation Code Description Data Chela rce(s) Supporting Document(s) WHITE BLOOD COUNT 6.1 3/uL Normal WHITE BLOOD COUNT [facility]) RED BLOOD COUNT 4.14 6/uL Below low normal RED BLOOD COUN T [facility] ([facility]) Hemoglobin [Mass/volume] in Mixed venous blood by Oximetry 12.9 g/dl Below low normal HEMOGLOBIN [facility] ([facility]) Hematocrit [Pure volume fraction] of Blood by Automated count 40 .5 % Below low normal HEMATOCRIT [facility]) MEAN CORPUSCULAR VOLUME 97.8 fl Above high normal MEAN CORPUSCULAR VOLUME [facility]) MEAN CORPUSCULAR HEMOGLOBIN 31.2 pg Normal MEAN COR PUSCULAR HEMOGLOBIN [facility]) RED CELL DISTRIBUTION WIDTH 15.0 % Above high no rmal RED CELL DISTRIBUTION WIDTH [facility]) MEAN CORPUSCULAR HGB CONC 31.9 g/dl Below low hernandez l MEAN CORPUSCULAR HGB CONC [facility] ([facility]) PLATELET COUNT, AUTOMATED 167 3/uL Normal PLATELET C OUNT, AUTOMATED [facility] ([facility]) NUCLEATED RED BLOOD CELL % 0.0 % Normal NUCLEATED RED BLOOD CELL % [facility] ([facility]) ID Date Data Source [id number] 07/21/2020 06:21:00 AM EST [facility] ([facility]) Name Value Range Interpretation Code Description Data Chela rce(s) Supporting Document(s) Reported Physicians See Note Reported Physici ans [facility] ([facility]) Note: Reported Physicians:Ordering: RUPERTO FULLER [id number], JEWELS EspinosaAttending: CHIQUIS SOSAAdmitting: Sandy TERRELL To: Magdalena SOSA To: Sandy TERRELL To: Nelson Delarosa ID Date Data Source [id number] 07/21/2020 06:21:00 AM EST [facility] ([facility]) Name Value Range Interpretation Code Description Data Chela rce(s) Supporting Document(s) GLUCOSE, FASTING 117 MG/DL Above high normal GLUCOSE, FAS TING [facility] ([facility]) BLOOD UREA NITROGEN 21 MG/DL Above high normal BLOOD URE A NITROGEN [facility] ([facility]) CREATININE FOR GFR 1.36 MG/DL Above high normal CREATININE FOR GFR [facility] ([facility]) GLOMERULAR FILTRATION RATE 55.2 Normal GLOMERULA R FILTRATION RATE [facility] ([facility]) Note: Units are mL/min/1.73 m2 Chroni c Kidney Disease Staging per NKF: Stage I & II GFR >=60 Normal to Mildly Decreased Stage III GFR 30- 59 Moderately Decreased Stage IV GFR 15-29 Severely Decreased Stage V GFR <15 Very Little GFR Left ESRD GFR <15 on VICE PRESIDENT OF CONTRACTS SODIUM LEVEL 139 MEQ/L Normal SODIUM LEVEL [facility]) POTASSIUM SERUM 4.3 MEQ/L Normal POTASSIUM SERUM [facility] ([facility]) CHLORIDE LEVEL 105 MEQ/L Normal CHLORIDE LEVEL [facility]) Anion gap in Body fluid 9 MEQ/L Normal ANION GAP [facility]) CARBON DIOXIDE LEVEL 25 MEQ/L Normal CARBON DIOXIDE LEVEL [facility]) AST/SGOT 10 U/L Normal AST/SGOT [facility]) CALCIUM LEVEL 9.1 MG/DL Normal CALCIUM LEVEL [facility]) ALT/SGPT 15 U/L Normal ALT/SGPT [facility] ([facility]) Alkaline phosphatase [Enzymatic activity/volume] in Se rum, Plasma or Blood 68 U/L Normal ALKALINE PHOSPHATASE [facility]) BILIRUBIN,TOTAL 0.6 MG/DL Normal BILIRUBIN,TOTAL [facility] ([facility]) TOTAL PROTEIN 7.4 GM/DL Normal TOTAL PROTEIN [facility] ([facility]) Albumin [Mass/volume] in Blood by Bromocresol purple ( BCP) dye binding method 3.9 GM/DL Normal ALBUMIN SPUR ([facility]) ALBUMIN/GLOBULIN RATIO 1.1 Normal ALBUMIN/GLOBU MICHELLE RATIO [facility]) ID Date Data Source [id number] 07/21/2020 06:21:00 AM EST [place] ([facility]) Name Value Range Interpretation Code Description Data Chela rce(s) Supporting Document(s) Reported Physicians See Note Reported Physici ans SPUR ([facility]) Note: Reported Physicians:Ordering: RUPERTO FULLER [id number], JEWELS EspinosaAttending: CHIQUIS SOSAAdmitting: Sandy TERRELL To: Magdalena SOSA To: Sandy TERRELL To: Nelson Delarosa ID Date Data Source [id number] 07/21/2020 06:21:00 AM EST [place] ([facility]) Name Value Range Interpretation Code Description Data Chela rce(s) Supporting Document(s) MAGNESIUM LEVEL 2.2 MG/DL Normal MAGNESIUM LEVEL YEFRI [facility] ([facility]) ID Date Data Source [id number] 07/21/2020 06:21:00 AM EST [place] ([facility]) Name Value Range Interpretation Code Description Data Chela rce(s) Supporting Document(s) Reported Physicians See Note Reported Physic ans SPUR ([facility]) Note: Reported Physicians:Ordering: RUPERTO FULLER [id number], JEWELS EspinosaAttending: ADIEL TERRELLdmitting: Sandy TERRELL To: Sandy TERRELL To: Nelson Delarosa ID Date Data Source [id number] 07/20/2020 12:21:00 PM EST [place] ([facility]) Name Value Range Interpretation Code Description Data Chela rce(s) Supporting Document(s) Reported Physicians See Note [facility] Note: Reported Physicians:Ordering: Bianca Cruz [id number], Valentina MDAttending: Ac Thapa To: Ac Thapa To: Nelson Delarosa ID Date Data Source [id number] 07/20/2020 12:21:00 PM EST [place] ([facility]) Name Value Range Interpretation Code Description Data Chela rce(s) Supporting Document(s) iSTAT pH 7.434 UNITS Normal iSTAT pH [place] ([facility]) iSTAT pCO2 38.5 MMHG Normal iSTAT pCO2 SPUR ([facility]) iSTAT pO2 76.0 MMHG Below low normal iSTAT pO2 SPUR ([facility]) iSTAT TCO2 27.0 MMOL/L Normal iSTAT TCO2 SPUR ([facility]) iSTAT HCO3 25.8 MMOL/L Normal iSTAT HCO3 SPUR ([facility]) iSTAT BASE EXCESS 2.0 MMOL/L Normal iSTAT BASE EXCESS SP[facility] ([facility]) iSTAT sO2 96 % Normal iSTAT sO2 SPUR ([facility]) ID Date Data Source [id number] 07/20/2020 11:17:00 AM EST SPUR ([facility]) Name Value Range Interpretation Code Description Data Chela rce(s) Supporting Document(s) Reported Physicians See Note Reported Physici ans [facility]) Note: Reported Physicians:Ordering: Valentina Cedillo [phone]: Ac Thapa To: Ac Thapa To: Nelson Delarosa ID Date Data Source [id number] 07/20/2020 11:17:00 AM EST SPUR ([facility]) Name Value Range Interpretation Code Description Data Chela rce(s) Supporting Document(s) RESPIRATORY PANEL See Note RESPIRATORY PANEL [facility]) Note: This respiratory PCR panel detects Influenza A H1, H3 [id number] H1 viruses, Influenza B virus, Respiratory Syncytial Virus,Human metapneumovirus, Parainfluenza virus 1, 2, 3 and 4, Adenovirus,Rhinovirus/Enterovirus, Coronavirus HKU1, NL63, OC43, 229E [id number]-1 (COVID 19), Bordetella pertussis, Bordetella parapertussis,Mycoplasma pneumoniae and Chlamydia pneumoniae.NEGATIVE by MULTIPLEXED NUCLEIC ACID [id number] (COVID 19) NEGATIVE - SARS-CoV-2 (COVID19) Notes [TIMP] See Note NOTES SPUR ([facility]) Note: Source: NASOPHARYNX ID Date Data Source [id number] 07/20/2020 11:17:00 AM EST [facility] Name Value Range Interpretation Code Description Data Chela rce(s) Supporting Document(s) SARS-CoV-2 (COVID 19) NEGATIVE - SARS-CoV-2 (COVID19) [facility] This lab was ordered by [facility] a nd reported by [facility]. ID Date Data Source [id number] 07/20/2020 10:52:00 AM EST [place] ([facility]) Name Value Range Interpretation Code Description Data Chela rce(s) Supporting Document(s) Reported Physicians See Note Reported Physici ans SPUR ([facility]) Note: Reported Physicians:Ordering: Bianca Cruz [phone]: Ac Thapa To: Ac Thapa To: Nelson Delarosa ID Date Data Source [id number] 07/20/2020 10:52:00 AM EST SPUR ([facility]) Name Value Range Interpretation Code Description Data Chela rce(s) Supporting Document(s) WHITE BLOOD COUNT 5.1 3/uL Normal WHITE BLOOD COUNT [facility]) RED BLOOD COUNT 3.97 6/uL Below low normal RED BLOOD COUN T [facility]) Hemoglobin [Mass/volume] in Mixed venous blood by Oximetry 12.2 g/dl Below low normal HEMOGLOBIN [facility]) MEAN CORPUSCULAR VOLUME 101.5 fl Above high normal MEAN CORPUSCULAR VOLUME [facility]) Hematocrit [Pure volume fraction] of Blood by Automated count 40 .3 % Below low normal HEMATOCRIT [facility]) MEAN CORPUSCULAR HGB CONC 30.3 g/dl Below low hernandez l MEAN CORPUSCULAR HGB CONC [facility]) MEAN CORPUSCULAR HEMOGLOBIN 30.7 pg Normal MEAN COR PUSCULAR HEMOGLOBIN [facility]) RED CELL DISTRIBUTION WIDTH 14.9 % Above high no rmal RED CELL DISTRIBUTION WIDTH [facility]) PLATELET COUNT, AUTOMATED 175 3/uL Normal PLATELET C OUNT, AUTOMATED [place] ([facility]) NEUTROPHILS % 55.6 % Normal NEUTROPHILS % [place] ([facility]) MONO % 10.9 % Above high normal MONO % [place] ([facility]) LYMPH % 29.7 % Normal LYMPH % [place] ([facility]) BASO % 0.4 % Normal BASO % [place] ([facility]) EOS % 3.2 % Above high normal EOS % SPUR ([facility]) NUCLEATED RED BLOOD CELL % 0.0 % Normal NUCLEATED RED BLOOD CELL % [place] ([facility]) IMMATURE GRANULOCYTE % 0.2 % Normal IMMATURE GRAN ULOCYTE % SPUR ([facility]) NEUTROPHILS # 2.8 3/uL Normal NEUTROPHILS # [place] ([facility]) LYMPH # 1.5 3/uL Normal LYMPH # [place] ([facility]) MONO # 0.6 3/uL Normal MONO # [place] ([facility]) EOS # 0.2 3/uL Normal EOS # [place] ([facility]) BASO # 0.0 3/uL Normal BASO # [place] ([facility]) ID Date Data Source [id number] 07/20/2020 10:52:00 AM [facility] ([facility]) Name Value Range Interpretation Code Description Data Chela rce(s) Supporting Document(s) Reported Physicians See Note Reported Physici ans SPUR ([facility]) Note: Reported Physicians:Ordering: Bianca Cruz [id number]: Ac Thapa To: Ac Thapa To: Nelson Delarosa ID Date Data Source [id number] 07/20/2020 10:52:00 AM [facility] ([facility]) Name Value Range Interpretation Code Description Data Chela rce(s) Supporting Document(s) GLUCOSE, FASTING 81 MG/DL Normal GLUCOSE, FASTING [facility]) BLOOD UREA NITROGEN 14 MG/DL Normal BLOOD UREA NITRO GEN SPUR ([facility]) CREATININE FOR GFR 1.06 MG/DL Normal CREATININE FOR GF R SP[facility] ([facility]) GLOMERULAR FILTRATION RATE > 60.0 Normal GLOMERULA R FILTRATION RATE SP[facility] ([facility]) Note: Units are mL/min/1.73 m2 Chroni c Kidney Disease Staging per NKF: Stage I & II GFR >=60 Normal to Mildly Decreased Stage III GFR 30- 59 Moderately Decreased Stage IV GFR 15-29 Severely Decreased Stage V GFR <15 Very Little GFR Left ESRD GFR <15 on VICE PRESIDENT OF CONTRACTS SODIUM LEVEL 138 MEQ/L Normal SODIUM LEVEL SPUR ( [facility]) POTASSIUM SERUM 4.3 MEQ/L Normal POTASSIUM SERUM GREE NWAY [facility]) CHLORIDE LEVEL 106 MEQ/L Normal CHLORIDE LEVEL [facility]) CARBON DIOXIDE LEVEL 29 MEQ/L Normal CARBON DIOXIDE LEVEL [facility]) CALCIUM LEVEL 9.5 MG/DL Normal CALCIUM LEVEL [facility]) Anion gap in Body fluid 3 MEQ/L Below low normal ANION GAP SP[facility] ([facility]) ID Date Data Source [id number] 07/20/2020 10:52:00 AM EST [place] ([facility]) Name Value Range Interpretation Code Description Data Chela rce(s) Supporting Document(s) Reported Physicians See Note Reported Physici ans SPUR ([facility]) Note: Reported Physicians:Ordering: Bianca Cruz [phone] MDAttending: Ac Thapa To: Ac Thapa To: Nelson Delarosa ID Date Data Source [id number] 07/20/2020 10:52:00 AM EST [place] ([facility]) Name Value Range Interpretation Code Description Data Chela rce(s) Supporting Document(s) THYROID STIMULATING HORMONE 0.429 uIU/ML Normal THYROI D STIMULATING HORMONE [facility]) ID Date Data Source [id number] 07/20/2020 10:52:00 AM EST [place] ([facility]) Name Value Range Interpretation Code Description Data Chela rce(s) Supporting Document(s) Reported Physicians See Note Reported Physici ans SPUR ([facility]) Note: Reported Physicians:Ordering: Bianca Cruz [id number], Maja MDAttending: Maj ElieraCopy To: Elier MajaCopy To: Nelson Delarosa ID Date Data Source [id number] 07/20/2020 10:52:00 AM EST [place] ([facility]) Name Value Range Interpretation Code Description Data Chela rce(s) Supporting Document(s) NT-PRO BNP 1217 PG/ML Above high normal NT-PRO BNP [facility] Y ([facility]) ID Date Data Source [id number] 07/20/2020 10:52:00 AM EST [place] ([facility]) Name Value Range Interpretation Code Description Data Chela rce(s) Supporting Document(s) Reported Physicians See Note Reported Physici ans SPUR ([facility]) Note: Reported Physicians:Ordering: Bianca Cruz [id number], Maja MDAttending: Maj ElieraCopy To: Maj ElieraCopy To: Nelson Delarosa ID Date Data Source [id number] 07/20/2020 10:52:00 AM EST [place] ([facility]) Name Value Range Interpretation Code Description Data Chela rce(s) Supporting Document(s) THYROXINE (T4) 8.4 UG/DL Normal THYROXINE (T4) [facility] ([facility]) ID Date Data Source [id number] 07/20/2020 10:52:00 AM EST [place] ([facility]) Name Value Range Interpretation Code Description Data Chela rce(s) Supporting Document(s) Reported Physicians See Note Reported Physici ans SPUR ([facility]) Note: Reported Physicians:Ordering: Bianca Cruz [id number], Maja MDAttending: Katty-Felix MajaCopy To: Elier MajaCopy To: Nelson Delarosa ID Date Data Source [id number] 07/20/2020 10:52:00 AM EST [place] ([facility]) Name Value Range Interpretation Code Description Data Chela rce(s) Supporting Document(s) AST/SGOT 13 U/L Normal AST/SGOT SP[facility] ([facility]) ALT/SGPT 12 U/L Normal ALT/SGPT SP[facility] ([facility]) Alkaline phosphatase [Enzymatic activity/volume] in Se rum, Plasma or Blood 66 U/L Normal ALKALINE PHOSPHATASE SPUR ([facility]) BILIRUBIN,TOTAL 0.5 MG/DL Normal BILIRUBIN,TOTAL GREE NW ([facility]) BILIRUBIN,DIRECT 0.1 MG/DL Normal [facility]ILIRUBIN,DIRECT [facility]) TOTAL PROTEIN 7.7 GM/DL Normal TOTAL PROTEIN SP[facility] ([facility]) Albumin [Mass/volume] in Blood by Bromocresol purple ( BCP) dye binding method 3.6 GM/DL Normal ALBUMIN SPUR ([facility]) ALBUMIN/GLOBULIN RATIO 0.9 Normal ALBUMIN/GLOBU MICHELLE RATIO [facility] ([facility]) ID Date Data Source [id number] 07/20/2020 10:52:00 AM EST [facility] ([facility]) Name Value Range Interpretation Code Description Data Chela rce(s) Supporting Document(s) Reported Physicians See Note Reported Lorie RICHARDSWAY ([facility]) Note: Reported Physicians:Ordering: Bianca Cruz [phone] MDAttending: Ac Thapa To: Ac Thapa To: Nelson Delarosa ID Date Data Source [id number] 07/20/2020 10:52:00 AM EST [facility] ([facility]) Name Value Range Interpretation Code Description Data Chela rce(s) Supporting Document(s) LACTIC ACID SEPSIS PROTOCOL 1.7 MMOL/L Normal LACTIC A CATIE SEPSIS PROTOCOL SPUR ([facility]) Notes [TIMP] See Note NOTES [place] ([facility]) Note: Y/N query for Sepsis Lactate Rule: Y ID Date Data Source [id number] 07/20/2020 10:52:00 AM EST [facility] ([facility]) Name Value Range Interpretation Code Description Data Chela rce(s) Supporting Document(s) Reported Physicians See Note Reported Physicbassem ans SPUR ([facility]) Note: Reported Physicians:Ordering: Bianca Cruz [id number] MDAttending: Ac Thapa To: Ac Thapa To: Nelson Delarosa ID Date Data Source [id number] 07/20/2020 10:52:00 AM EST SPUR ([facility]) Name Value Range Interpretation Code Description Data Chela rce(s) Supporting Document(s) CPK CREATINE PHOSPHOKINASE 45 U/L Normal CPK CREAT INE PHOSPHOKINASE SPUR ([facility]) CK-MB VALUE MASS 1.0 NG/ML Normal CK-MB VALUE MASS [facility]) MB/CK RELATIVE INDEX 2.22 Normal MB/CK RELATIVE INDEX SPUR ([facility]) Note: DIAGNOSIS CRITERIA MMB ng/ml Relative Index (RI) NON-AMI < or = 5 N/A BROWNLEE ZONE > 5 < or = 4 AMI > 5 > 4 TROPONIN I < 0.02 NG/ML Normal TROPONIN I SPUR ([facility]) Note: Troponin I Reference Interval for Siemens [place] LOCI: 99th Percentile= 0.00-0.045 ng/ml Risk Stratification: <= 0.10 ng/ml Decreased Risk for Adverse Clinical Events. 0.10-1.50 ng/ml Increased Risk for Adverse Clinical Events. Evaluation of additional criterion and/or repeat testing in 2-6 hours is suggested to rule out myocardial damage. >= 1.50 ng/ml Indicative of Myocardial Injury. ID Date Data Source [id number] 07/14/2020 02:19:00 PM EST [place] ([facility]) Name Value Range Interpretation Code Description Data Chela rce(s) Supporting Document(s) Reported Physicians See Note Reported Physici ans SPUR ([facility]) Note: Reported Physicians:Ordering: Nelson Sommers AAttending: NELSON DELAROSAConsulting: NO, PCPCopy To: Nelson Delarosa ID Date Data Source [id number] 07/14/2020 02:19:00 PM EST SPUR ([facility]) Name Value Range Interpretation Code Description Data Chela rce(s) Supporting Document(s) Iron [Mass/volume] in Urine collected for unspecified duration 46 U G/DL IRON SPUR ([facility]) Note: Responsible Observer: () ID Date Data Source [id number] 07/14/2020 02:19:00 PM EST [place] ([facility]) Name Value Range Interpretation Code Description Data Chela rce(s) Supporting Document(s) Reported Physicians See Note Reported Physici ans SPUR ([facility]) Note: Reported Physicians:Ordering: Chavez e, Nelson AAttending: MALINA, JOCELYNConsulting: NO, PCPCopy To: Stefania Delarosacelyn ID Date Data Source [id number] 07/14/2020 02:19:00 PM EST SP[facility] ([facility]) Name Value Range Interpretation Code Description Data Chela rce(s) Supporting Document(s) Ferritin [Interpretation] in Blood 106.0 ng/mL FERRITIN SPUR ([facility]) Note: Responsible Observer: () ID Date Data Source [id number] 07/14/2020 02:19:00 PM EST [place] ([facility]) Name Value Range Interpretation Code Description Data Chela rce(s) Supporting Document(s) Reported Physicians See Note Reported Physici ans SPUR ([facility]) Note: Reported Physicians:Ordering: Chavez e, Nelson AAttending: MALINA, JOCELYNConsulting: NO, PCPCopy To: Stefania Delarosacelyn ID Date Data Source [id number] 07/14/2020 02:19:00 PM EST [place] ([facility]) Name Value Range Interpretation Code Description Data Chela rce(s) Supporting Document(s) FOLIC ACID 15.4 NG/ML FOLIC ACID SPUR ([facility]) Note: Responsible Observer: () ID Date Data Source [id number] 07/14/2020 02:19:00 PM EST [place] ([facility]) Name Value Range Interpretation Code Description Data Chela rce(s) Supporting Document(s) Reported Physicians See Note Reported Physici ans SPUR ([facility]) Note: Reported Physicians:Ordering: Chavez e, Nelson AAttending: MALINA JOCELYNConsulting: NO, PCPCopy To: Cameron Delarosayn ID Date Data Source [id number] 07/14/2020 02:19:00 PM [facility] ([facility]) Name Value Range Interpretation Code Description Data Chela rce(s) Supporting Document(s) RETIC COUNT 2.2 % Above high normal RETIC COUNT [facility] ([facility]) Note: Responsible Observer: () ID Date Data Source [id number] 07/14/2020 02:19:00 PM [facility] ([facility]) Name Value Range Interpretation Code Description Data Chela rce(s) Supporting Document(s) Reported Physicians See Note Reported Physici ans SPUR ([facility]) Note: Reported Physicians:Ordering: Chavez e, Nelson AAttending: MALINA JOCELYNConsulting: NO, PCPCopy To: Nelson Delarosa ID Date Data Source [id number] 07/14/2020 02:19:00 PM [facility] ([facility]) Name Value Range Interpretation Code Description Data Chela rce(s) Supporting Document(s) VITAMIN B12 408 PG/ML VITAMIN B12 SP[facility] ([facility]) Note: Responsible Observer: () ID Date Data Source [id number] 07/14/2020 03:18:00 PM [facility] Value Range Interpretation Code Description Data Chela rce(s) Supporting Document(s) Cobalamin (Vitamin B12) [Mass/volume] in Serum or Plasma 408 PG/ML 232 - 1245 ID Date Data Source [id number] 07/14/2020 03:18:00 PM [facility] Name Value Range Interpretation Code Description Data Chela rce(s) Supporting Document(s) Folate [Mass/volume] in Serum or Plasma 15.4 NG/ML 5.6 - 45.8 ID Date Data Source [id number] 07/14/2020 03:18:00 PM [facility] Value Range Interpretation Code Description Data Chela rce(s) Supporting Document(s) Ferritin [Mass/volume] in Serum or Plasma 106.0 ng/mL 5.0 - 244 ID Date Data Source [id number] 07/14/2020 02:59:00 PM [facility] Name Value Range Interpretation Code Description Data Chela rce(s) Supporting Document(s) Reticulocytes/100 erythrocytes in Blood by Automated count 2.2 % 0.5 - 1.5 H ID Date Data Source [id number] 07/14/2020 02:58:00 PM [facility] Value Range Interpretation Code Description Data Chela rce(s) Supporting Document(s) Iron [Mass/volume] in Serum or Plasma 46 UG/DL 42 - 135 ID Date Data Source [id number] 06/04/2020 02:00:00 PM [facility] ([facility] Name Value Range Interpretation Code Description Data Chela rce(s) Supporting Document(s) Reported Physicians See Note Reported Physici ans SPUR ([facility]) Note: Reported Physicians:Ordering: Nelson Sommers AAttending: NELSON DELAROSAReferring: NELSON DELAROSAConsulting: NO, PCPCopy To: Nelson Delarosa ID Date Data Source [id number] 06/04/2020 02:00:00 PM [facility] ([facility] Name Value Range Interpretation Code Description Data Chela rce(s) Supporting Document(s) CULTURE WOUND See Note CULTURE WOUND SPUR ([facility]) Note: _CULTURE WOUND_ [id number]$$[id number]$$[id number]$$[id number] DATE/TIME: 06/10/2020 08:08Culture: CULTURE WOUND Status: FinalIsolate 1 Enterococcus faecalis Flag: A . . . . . . .7Heavy growthCiprofloxacin SLevofloxacin STetracycline R Previous result entered on 06/09/2020 07:29 ET Enterococcus faecalis Previous result entered on 06/08/2020 09:58 ET Enterococcus faecalis Previous result entered on 06/07/2020 03:18 ET Microbiological testing to rule out the presence of possible pathogensis in progress.Aerobic Bacterial Culture: [id number] faecalis Flag: AIsolate 2 Staphylococcus aureus Flag: A . . . . . . .3Heavy growth -- Continued on next page --Patient: MAIRA James Order: [id number] Page 2Culture: CULTURE WOUND Status: Final ====Most isolates of Staphylococcus sp. produce a beta-lactamase enzymerendering them resistant to penicillin. Please contact the laboratoryif penicillin is being considered for therapy.Based on susceptibility to oxacillin this isolate would besusceptible to:*Penicillinase-stable penicillins, such as: Cloxacillin, Dicloxacillin, Nafcillin*Beta-lactam combination agents, such as: Amoxicillin- clavulanic acid, Ampicillin-sulbactam, Piperacillin-tazobactam*Oral cephems, such as: Cefaclor, [...] ET Gram negative rodsAcinetobacter pittii Flag: APatient: MAIRA James Order: [id number] Page 3Culture: CULTURE WOUND Status: Fin al =ISOLATE 1 Enterococcus faecalisISOLATE 2 Staphylococcus aureusISOLATE 3 Acinetobacter pittii Isolate 1 Isolate 2 Isolate 3Antibiotic RAJENDRA Int RAJENDRA Int RAJENDRA IntUnits ug/mL ug/mL ug/mL---- Ampic illin/Sulbactam Cefepime Cefotaxime Ceftazidime Ceftriaxone Ciprofloxacin Clindamycin Erythromycin Gentamicin Levofloxacin Linezolid Meropenem Moxifloxacin Oxacillin Penicillin S S Quinupristin/Dalfopristin Rifampin Tetracycline Tobramycin Trimethoprim/Sulfa Vancomycin S S P1 Test performed by: [facility] #: [id number] [address] [place] [address] [id number] [place] [id number]- [facility] Center[facility] : Jarod Ratliff MD NPI #:Plastic Maker : 06/08/20.0706.XMT.SENT REF 06/08/20.1018.XMT.SENT REF 06/09/20.0956.XMT.SENT REF 06/10/20.0944.XMT.SENT REF ID Date Data Source [id number] 06/10/2020 09:44:00 AM EST [facility] Name Value Range Interpretation Code Description Data Chela rce(s) Supporting Document(s) CULTURE WOUND [facility] _CULTURE WOUND_$$[id number]$$[id number]$$[id number] DATE/TIME: 06/10/2020 08:08Culture: CULTURE WOUND Status: FinalIsolate 1 Enterococcus faecalis Flag: A . . . . . . .7Heavy growthCiprofloxacin SLevofloxacin STetracycline R Previous result entered on 06/09/2020 07:29 ET Enterococcus faecalis Previous result entered on 06/08/2020 09:58 ET Enterococcus faecalis Previous result entered on 06/07/2020 03:18 ET Microbiological testing to rule out the presence of possible pathogensis in progress.Aerobic Bacterial Culture: [id number] faecalis Flag: AIsolate 2 Staphylococcus aureus Flag: A . . . . . . .3Heavy growth -- Continued on next page --Patient: MAIRA James Order: [id number] Page 2Culture: CULTURE WOUND Status: Final Most [...] ET Gram negative rodsAcinetobacter pittii Flag: APatient: MAIRA MEJIA Erika Order: [id number] Page 3Culture: CULTURE WOUND Status: Final ISOLATE 1 Enterococcus faecalisISOLATE 2 Staphylococcus aureusISOLATE 3 Acinetobacter pittii Isolate 1 Isolate 2 Isolate 3Antibiotic RAJENDRA Int RAJENDRA Int RAJENDRA IntUnits ug/mL ug/mL ug/mL Ampicillin/Sulbactam Cefepime Cefotaxime Ceftazidime Ceftriaxone Ciprofloxacin Clindamycin Erythromycin Gentamicin Levofloxacin Linezolid Meropenem Moxifloxacin Oxacillin Penicillin S S Quinupristin/Dalfopristin Rifampin Tetracycline Tobramycin Trimethoprim/Sulfa Vancomycin S S P1 Test performed by: [facility] #: [id number] [address] [place] [address] [id number] [facility] [id number] Director : Jarod Ratliff MD NPI #:Plastic Maker : 06/08/20.06.XMT.SENT REF 06/08/20.1018.XMT.SENT REF 06/09/20.56.XMT.SENT REF 06/10/20.44.XMT.SENT REF ID Date Data Source [id number] 05/14/2020 10:06:00 AM EST [place] ([facility]) Name Value Range Interpretation Code Description Data Chela rce(s) Supporting Document(s) Reported Physicians See Note Reported Physici ans SPUR ([facility]) Note: Reported Physicians:Ordering: Chavez e, Nelson AAttending: MALINA, JOCELYNConsulting: NO, PCPCopy To: Stefania Delarosacelyn ID Date Data Source [id number] 05/14/2020 10:06:00 AM EST LAKESHIA ([facility]) Name Value Range Interpretation Code Description Data Chela rce(s) Supporting Document(s) T4 FREE 1.21 NG/DL T4 FREE SPUR ([facility]) Note: Responsible Observer: () ID Date Data Source [id number] 05/14/2020 10:06:00 AM EST LAKESHIA ([facility]) Name Value Range Interpretation Code Description Data Chela rce(s) Supporting Document(s) Reported Physicians See Note Reported Physici ans SPUR ([facility]) Note: Reported Physicians:Ordering: Chavez e, Nelson AAttending: MALINA JOCELYNConsulting: NO, PCPCopy To: Nelson Delarosa ID Date Data Source [id number] 05/14/2020 10:06:00 AM EST LAKESHIA ([facility]) Name Value Range Interpretation Code Description Data Chela rce(s) Supporting Document(s) CBC NO DIFF See Note CBC NO DIFF SPUR ([facility]) Note: COMPLETE BLOOD COUNTResponsibl e Observer: (SJR) Hematocrit [Pure volume fraction] of Blood by Automated count 40 .5 % Below low normal HEMATOCRIT SPUR ([facility]) Note: Responsible Observer: (SJR) Hemoglobin [Mass/volume] in Mixed venous blood by Oximetry 12.6 g/dL Below low normal HEMOGLOBIN SPUR ([facility]) Note: Responsible Observer: (SJR) MCHC 31.1 g/dL MCHC SPUR ([facility]) Note: Responsible Observer: (SJR) MCH 31.0 pg MCH SPUR ([facility]) Note: Responsible Observer: (SJR) MCV 99.8 fL Above high normal MCV SPUR ([facility]) Note: Responsible Observer: (SJR) MPV 10.3 fL MPV SPUR ([facility]) Note: Responsible Observer: (SJR) Platelets [#/area] in Blood by Microscopy high power field 230 10\\^ 3/uL PLATELETS SPUR ([facility]) Note: Responsible Observer: (SJR) RBC 4.06 10\\^6/uL Below low normal RBC SPUR ([facility]) Note: Responsible Observer: (SJR) WBC 5.7 10\\^3/uL WBC SPUR ([facility]) Note: Responsible Observer: (SJR) RDW 14.3 % RDW SPUR ([facility]) Note: Responsible Observer: (SJR) ID Date Data Source [id number] 05/14/2020 10:06:00 AM EST SPUR ([facility]) Name Value Range Interpretation Code Description Data Chela rce(s) Supporting Document(s) Reported Physicians See Note Reported Physici ans SPUR ([facility]) Note: Reported Physicians:Ordering: Nelson Sommers AAttending: NELSON DELAROSAConsulting: NO, PCPCopy To: Nelson Delarosa ID Date Data Source [id number] 05/14/2020 10:06:00 AM EST SPUR ([facility]) Name Value Range Interpretation Code Description Data Chela rce(s) Supporting Document(s) Cholesterol [Moles/volume] in Pericardial fluid 140 MG/DL CHOLESTEROL SPUR ([facility]) Note: Responsible Observer: (CLD) CVE PANEL See Note CVE PANEL SPUR ([facility]) Note: LIPID PANELResponsible Observe r: (CLD) LDL/HDL 1.75 LDL/HDL SPUR ([facility]) Note: CVE RISK CHOL/HD L LDL/HDLMEN: 1/2 AVERAGE 3.43 1.00 AVERAGE 4.97 3.55 2X AVERAGE 9.55 6.25 3X AVERAGE 23.99 7.99WOMEN: 1/2 AVERAGE 3.27 1.47 AVERAGE 4.44 3.22 2X AVERAGE 7.05 5.03 3X AVERAGE 11.04 6.14Responsible Observer: (CLD) HDL 48 MG/DL HDL SPUR ([facility]) Note: Responsible Observer: (CLD) Cholesterol in LDL [Mass/volume] in Serum or Plasma by Direct as say 84 mg/dL LDL SPUR ([facility]) Note: Responsible Observer: (CLD) TRIGLYCERIDES 88 MG/DL TRIGLYCERIDES SPUR ([facility]) Note: Responsible Observer: (CLD) RISK FACTOR 2.9 Below low normal RISK FACTOR [facility] ([facility]) Note: Responsible Observer: (CLD) ID Date Data Source [id number] 05/14/2020 10:06:00 AM EST LAKESHIA ([facility]) Name Value Range Interpretation Code Description Data Chela rce(s) Supporting Document(s) Reported Physicians See Note Reported Physici ans SPUR ([facility]) Note: Reported Physicians:Ordering: Chavez e Nelson AAttending: MALINA, JOCELYNConsulting: NO, PCPCopy To: Nelson Delarosa ID Date Data Source [id number] 05/14/2020 10:06:00 AM EST LAKESHIA ([facility]) Name Value Range Interpretation Code Description Data Chela rce(s) Supporting Document(s) TSH 2.43 uIU/mL TSH SPUR ([facility]) Note: Responsible Observer: () ID Date Data Source [id number] 05/14/2020 10:06:00 AM EST LAKESHIA ([facility]) Name Value Range Interpretation Code Description Data Chela rce(s) Supporting Document(s) Reported Physicians See Note Reported Physici ans SPUR ([facility]) Note: Reported Physicians:Ordering: Chavez e, Nelson AAttending: MALINA, JOCELYNConsulting: NO, PCPCopy To: Malina Nelson ID Date Data Source [id number] 05/14/2020 10:06:00 AM EST LAKESHIA ([facility]) Name Value Range Interpretation Code Description Data Chela rce(s) Supporting Document(s) A/G RATIO 1.2 A/G RATIO SPUR ([facility]) Note: Responsible Observer: (CLD) AFR AMER GFR >60 mL/min AFR AMER GFR SPUR ([facility]) Note: Male GFR Interprentation 20- 49 yrs >60 mL/min Normal 50-59 yrs >56 mL/min Normal 60-69 yrs >49 mL/min Normal 70- 79yrs >42 mL/min Normal 80 and above >35 mL/min Normal Female GFR Interpretation 20-39 yrs >60 mL/min Normal 40-49 yrs >58 mL/min Normal 50-59 yrs >51 mL/min Normal 60-69 yrs >45 mL/min Normal 70-79 yrs >39 mL/min Normal 80 and above >32 mL/min NormalResponsible Observer: (CLD) Albumin [Mass/volume] in Blood by Bromocresol purple ( BCP) dye binding method 4.2 G/DL ALBUMIN SPUR ([facility]) Note: Responsible Observer: (CLD) Egg donor age 70 yrs AGE SPUR ([facility]) Note: Responsible Observer: (CLD) ALKALINE PHOS 80 U/L ALKALINE PHOS SPUR ([facility]) Note: Responsible Observer: (CLD) Anion gap in Body fluid 10.0 mmol/L ANION GAP SPUR ([facility]) Note: Responsible Observer: (CLD) BUN 17 MG/DL BUN SPUR ([facility]) Note: Responsible Observer: (CLD) Calcium [Moles/volume] in Urine collected for unspecified durati on 9.4 MG/DL CALCIUM SPUR ([facility]) Note: Responsible Observer: (CLD) BUN/CREAT 15 BUN/CREAT SPUR ([facility]) Note: Responsible Observer: (CLD) Chloride [Moles/volume] in Serum, Plasma or Blood 104 mEq/L CHLORIDE SPUR ([facility]) Note: Responsible Observer: (CLD) CO2 28 MEQ/L CO2 SPUR ([facility]) Note: Responsible Observer: (CLD) COMPREHENSIVE METABOLIC PANEL See Note COMPRE HENSIVE METABOLIC PANEL SPUR ([facility]) Note: COMPREHENSIVE METABOLIC PANELR esponsible Observer: (CLD) Creatinine [Moles/volume] in Vitreous fluid 1.1 MG/DL CREATININE SPUR ([facility]) Note: Responsible Observer: (CLD) Glucose [Mass/volume] in Urine collected for unspecified duration 1 03 MG/DL GLUCOSE SPUR ([facility]) Note: Responsible Observer: (CLD) Globulin [Mass/time] in 24 hour Urine 3.4 GM/DL Above hig h normal GLOBULIN SPUR ([facility]) Note: Responsible Observer: (CLD) Potassium [Mass/volume] in Blood 4.4 mEq/L POT ASSIUM SPUR ([facility]) Note: Responsible Observer: (CLD) NON-AA GFR >60 mL/min NON-AA GFR SPUR ([facility]) Note: Responsible Observer: (CLD) SGOT/AST 12 U/L SGOT/AST SPUR ([facility]) Note: Responsible Observer: (CLD) SGPT/ALT <5 U/L Below low normal SGPT/ALT SPUR ([facility]) Note: Responsible Observer: (CLD) Sodium [Moles/volume] in Serum, Plasma or Blood 142 mEq/L SODIUM SPUR ([facility]) Note: Responsible Observer: (CLD) TOTAL PROTEIN 7.6 G/DL TOTAL PROTEIN SPUR ([facility]) Note: Responsible Observer: (CLD) TOTAL BILI <0.7 MG/DL TOTAL BILI SPUR ([facility]) Note: Responsible Observer: (CLD) ID Date Data Source [id number] 05/14/2020 10:06:00 AM EST LAKESHIA ([facility]) Name Value Range Interpretation Code Description Data Chela rce(s) Supporting Document(s) Reported Physicians See Note Reported Physici ans SPUR ([facility]) Note: Reported Physicians:Ordering: Nelson Sommers AAttending: NELSON DELAROSAConsulting: NO, PCPCopy To: Nelson Delarosa ID Date Data Source [id number] 05/14/2020 10:06:00 AM EST LAKESHIA ([facility]) Name Value Range Interpretation Code Description Data Chela rce(s) Supporting Document(s) Triiodothyronine (T3),Free 2.5 pg/mL Triiodoth yronine (T3),Free SPUR ([facility]) Note: Responsible Observer: (rfl) ID Date Data Source [id number] 05/14/2020 10:06:00 AM [facility] ([facility] Name Value Range Interpretation Code Description Data Chela rce(s) Supporting Document(s) Reported Physicians See Note Reported Physici ans SPUR ([facility]) Note: Reported Physicians:Ordering: Nelson Sommers AAttending: NELSON DELAROSAConsulting: NO, PCPCopy To: Nelson Delarosa ID Date Data Source [id number] 05/14/2020 10:06:00 AM [facility] ([facility] Name Value Range Interpretation Code Description Data Chela rce(s) Supporting Document(s) Levetiracetam, S <1.0 ug/mL Below low normal Levetiracetam , S SPUR ([facility]) Note: Verified by repeat analysisThi s test was developed and its performance characteristicsdetermined by [facility]. It has not been cleared or approvedby the Food and Drug Administration.Responsible Observer: (rfl) ID Date Data Source [id number] 05/20/2020 07:59:00 AM [facility] Name Value Range Interpretation Code Description Data Chela rce(s) Supporting Document(s) Levetiracetam [Mass/volume] in Serum or Plasma <1.0 ug/mL 10.0-40.0 L Verified by repeat analysisThis test was developed and its performance characteristicsdetermined by [facility]. It has not been cleared or approvedby the Food and Drug Administration. ID Date Data Source [id number] 05/15/2020 10:06:00 AM [facility] Name Value Range Interpretation Code Description Data Chela rce(s) Supporting Document(s) Triiodothyronine (T3) Free [Mass/volume] in Serum or Plasma 2.5 pg/ mL 2.0-4.4 ID Date Data Source [id number] 05/14/2020 11:23:00 AM [facility] Name Value Range Interpretation Code Description Data Chela rce(s) Supporting Document(s) Thyrotropin [Units/volume] in Serum or Plasma by Detec tion limit <= 0.05 mIU/L 2.43 uIU/mL 0.47 - 5.01 ID Date Data Source [id number] 05/14/2020 11:23:00 AM [facility] Name Value Range Interpretation Code Description Data Chela rce(s) Supporting Document(s) Thyroxine (T4) free index in Serum or Plasma by calculation 1.21 NG/DL 0.93 - 1.70 ID Date Data Source [id number] 05/14/2020 11:11:00 AM [facility] Name Value Range Interpretation Code Description Data Chela rce(s) Supporting Document(s) [facility] Cholesterol [Mass/volume] in Serum or Plasma 140 MG/DL 131 - 200 Deprecated Triglyceride [Mass/volume] in Serum or Plasma 88 MG/DL 3 5 - 160 HDL 48 MG/DL 29 - 86 [facility] Cholesterol in LDL [Mass/volume] in Serum or Plasma by Direc t assay 84 mg/dL 65 - 175 Cholesterol.total/Cholesterol in HDL [Mass Ratio] in Serum o r Plasma 2.9 3.4 - 4.9 L LDL/HDL 1.75 1.00 - 3.55 [facility] ital CVE RISK CHOL/HDL LDL/HDLMEN: 1/2 AVERAGE 3.43 1.00 AVERAGE 4.97 3.55 2X AVERAGE 9.55 6.25 3X AVERAGE 23.99 7.99WOMEN: 1/2 AVERAGE 3.27 1.47 AVERAGE 4.44 3.22 2X AVERAGE 7.05 5.03 3X AVERAGE 11.04 6.14 ID Date Data Source [id number] 05/14/2020 11:11:00 AM [facility] Name Value Range Interpretation Code Description Data Chela rce(s) Supporting Document(s) COMPREHENSIVE METABOLIC PANEL COMPREHENSIVE METABOLIC PANEL Sodium [Moles/volume] in Serum or Plasma 142 mEq/L 134 - 153 Potassium [Moles/volume] in Serum or Plasma 4.4 mEq/L 3.6 - 5.0 Chloride [Moles/volume] in Serum or Plasma 104 mEq/L 98 - 107 Carbon dioxide, total [Moles/volume] in Serum or Plasma 28 MEQ/L 22 - 30 Glucose [Mass/volume] in Serum or Plasma 103 MG/DL 65 - 110 BUN 17 MG/DL 7 - 21 [facility] al Creatinine [Mass/volume] in Serum or Plasma 1.1 MG/DL 0.7 - 1.5 BUN/CREAT 15 8 - 27 [facility] Protein [Mass/volume] in Serum or Plasma 7.6 G/DL 6.3 - 8.2 Albumin [Mass/volume] in Serum or Plasma 4.2 G/DL 3.9 - 5.0 Globulin [Mass/volume] in Serum by calculation 3.4 GM/DL 2.4 - 3.2 H A/G RATIO 1.2 0.8 - 2.0 [facility] Calcium [Mass/volume] in Serum or Plasma 9.4 MG/DL 8.4 - 10.2 Bilirubin.total [Mass/volume] in Serum or Plasma <0.7 MG/DL 0.2 - 1.3 Alkaline phosphatase [Enzymatic activity/volume] in Serum or Plasma 80 U/L 38 - 126 Aspartate aminotransferase [Enzymatic activity/volume] in Serum or Plasma 12 U/L 5 - 40 Alanine aminotransferase [Enzymatic activity/volume] in Seru m or Plasma <5 U/L 7 - 56 L Anion gap 3 in Serum or Plasma 10.0 mmol/L 8.0 - 16.0 AGE 70 yrs [facility] al NON-AA GFR >60 mL/min [facility] ital AFR AMER GFR >60 mL/min [facility] Male GFR In terprentation [...] >32 mL/min Normal ID Date Data Source [id number] 05/14/2020 10:23:00 AM EST Name Value Range Interpretation Code Description Data Chela rce(s) Supporting Document(s) CBC NO DIFF [facility] ital COMPLETE BLOOD COUNT Leukocytes [#/volume] in Blood by Automated count 5.7 10^3/uL 4.2 - 1 1.0 Erythrocytes [#/volume] in Blood by Automated count 4.06 10^6/uL 4. 50 - 6.30 L Hemoglobin [Mass/volume] in Blood 12.6 g/dL 14.0 - 16.0 L Hematocrit [Volume Fraction] of Blood by Automated count 40.5 % 4 1.0 - 51.0 L Erythrocyte mean corpuscular volume [Entitic volume] by Auto mated count 99.8 fL 80.0 - 94.0 H Erythrocyte mean corpuscular hemoglobin [Entitic mass] by Automated count 31.0 pg 27.0 - 34.0 Erythrocyte mean corpuscular hemoglobin concentration [Mass/volume] by Automated count 31.1 g/dL 31.0 - 36.0 Erythrocyte distribution width [Ratio] by Automated count 14.3 % 11.5 - 14.8 Platelets [#/volume] in Blood by Automated count 230 10^3/uL 150 - 45 0 Platelet mean volume [Entitic volume] in Blood by Automated count 10.3 fL 7.4 - 10.4 ID Date Data Source [id number] 05/06/2020 01:02:00 PM EST LAKESHIA ([facility]) Name Value Range Interpretation Code Description Data Chela rce(s) Supporting Document(s) Reported Physicians See Note Reported Physici ans LAKESHIA ([facility]) Note: Reported Physicians:Ordering: Nelson Sommers AAttending: NELSON DELAROSAReferring: NELSON DELAROSAConsulting: NO, PCPCopy To: Nelson Delarosa ID Date Data Source [id number] 05/06/2020 01:02:00 PM EST SPUR ([facility]) Name Value Range Interpretation Code Description Data Chela rce(s) Supporting Document(s) CULTURE WOUND See Note CULTURE WOUND SPUR ([facility]) Note: _CULTURE WOUND_ [id number] DATE/TIME: 05/12/2020 11:06Culture: CULTURE WOUND Status: FinalIsolate [...] 05/10/2020 10:00 ET Staphylococcus aureusAerobic Bacterial Culture: [id number] aureus Flag: AIsolate 2 Acinetobacter lwoffii Flag: A . . . . . . .8Moderate growth Previous result entered on 05/11/2020 13:35 ET -- Continued on next page --Patient: MAIRA James Order: [id number] Page 2Culture: CULTURE WOUND Status: Final ====Gram negative rods Previous result entered on 05/10/2020 10:00 ET Gram negative rodsAcinetobacter lwoffii Flag: APatient: MAIRA James Order: [id number] Page 3Culture: CULTURE WOUND Status: Final =====ISOLATE [...] Vancomycin S S P1 Test performed by: [facility] #: [id number] [address] [place] [address] [id number] [facility] [id number] Director : Jarod Ratliff MD NPI #:Plastic Maker : 05/11/[email or web address].SENT REF 05/11/20.1546.XMT.SENT REF 05/12/20.1210.XMT.SENT REF ID Date Data Source [id number] 05/12/2020 12:09:00 PM EST [facility] Name Value Range Interpretation Code Description Data Chela rce(s) Supporting Document(s) CULTURE WOUND [facility] _CULTURE WOUND_$$[id number]$$[id number] DATE/TIME: 05/12/2020 11:06Culture: CULTURE WOUND Status: FinalIsolate [...] 05/10/2020 10:00 ET Staphylococcus aureusAerobic Bacterial Culture: [id number] aureus Flag: AIsolate 2 Acinetobacter lwoffii Flag: A . . . . . . .8Moderate growth Previous result entered on 05/11/2020 13:35 ET -- Continued on next page --Patient: MAIRA James Order: [id number] Page 2Culture: CULTURE WOUND Status: Final ====Gram negative rods Previous result entered on 05/10/2020 10:00 ET Gram negative rodsAcinetobacter lwoffii Flag: APatient: MAIRA James Order: [id number] Page 3Culture: CULTURE WOUND Status: Final ====ISOLATE [...] Vancomycin S S P1 [facility] by: [facility] #: [id number] [address] [id number] [facility] [id number] Director : Jarod Ratliff MD NPI #:Plastic Maker : 05/11/[email or web address].XMT.SENT REF 05/11/20.1546.XMT.SENT REF 05/12/20.1210.XMT.SENT REF Procedure Social History Code Duration Value Status Description Data Source(s ) Smoking 03/01/2021 12:00:00 AM EDT Patient is a former smoker completed Patient is a former smoker MEDENT ([facility]) Smoking 12/25/2020 12:00:00 AM EDT Patient has never smoked co mpleted Patient has never smoked [facility]ENT ([facility]) Smoking 07/24/2020 12:00:00 AM EST Former Smoker completed Former Smoker eCW1 ([facility]) Smoking 07/24/2020 12:00:00 AM EST Former Smoker completed Former Smoker eCW1 ([facility]) Smoking 07/24/2020 12:00:00 AM EST Former Smoker completed Former Smoker eCW1 ([facility]) Smoking 07/24/2020 12:00:00 AM EST Former Smoker completed Former Smoker eCW1 ([facility]) Smoking 07/24/2020 12:00:00 AM EST Former Smoker completed Former Smoker eCW1 ([facility]) Smoking 07/24/2020 12:00:00 AM EST Former Smoker completed Former Smoker eCW1 ([facility]) Smoking 07/24/2020 12:00:00 AM EST Former Smoker completed Former Smoker eCW1 ([facility]) Smoking 07/24/2020 12:00:00 AM EST Former Smoker completed Former Smoker eCW1 ([facility]) Vital Signs ID Date Data Source UNK Name Value Range Interpretation Code Description Data Source(s) Body height 66 [in_i] 66 [in_i] [facility] 5'6" Heart rate 81 /min 81 /min [facility] ([facility]) Systolic blood pressure--sitting 120 mm[Hg] 120 mm[Hg] MEDENT ([facility]) LA, large cuff Diastolic blood pressure--sitting 82 mm[Hg] 82 mm[Hg] MEDENT ([facility]) LA, large cuff Body height 66 [in_i] 66 [in_i] [facility] 5'6" Systolic blood pressure--sitting 106 mm[Hg] 106 mm[Hg] MEDENT ([facility]) Ra, large cuff Diastolic blood pressure--sitting 60 mm[Hg] 60 mm[Hg] MEDENT ([facility]) Ra, large cuff Body height 66 [in_i] 66 [in_i] [facility] 5'6" Heart rate 78 /min 78 /min [facility] ([facility]) Systolic blood pressure--sitting 100 mm[Hg] 100 mm[Hg] [facility] ([facility]) CBP, large cuff/LA Diastolic blood pressure--sitting 63 mm[Hg] 63 mm[Hg] MEDENT ([facility]) CBP, large cuff/LA Body height 66 [in_i] 66 [in_i] [facility]) 5'6" Heart rate 75 /min 75 /min [facility] ([facility]) Systolic blood pressure--sitting 113 mm[Hg] 113 mm[Hg] MEDENT ([facility]) CBP, large cuff/LA Diastolic blood pressure--sitting 73 mm[Hg] 73 mm[Hg] MEDENT ([facility]) CBP, large cuff/LA Body height 70 [in_i] 70 [in_i] MEDENT (Neymar Hilario [facility]) 5'10" Body weight 200.00 [lb_av] 200.00 [lb_av] MEDEN T (Neymar Hilario MD) Body mass index (BMI) [Ratio] 28.7 kg/m2 28.7 k g/m2 MEDENT (Neymar Hilario MD) Body temperature 97.9 [degF] 97.9 [degF] MEDENT (Neymar Hilario MD) Systolic blood pressure 146 mm[Hg] 146 mm[Hg] M EDENT (Neymar Hilario MD) Diastolic blood pressure 81 mm[Hg] 81 mm[Hg] MEDENT (Neymar Hilario MD) Heart rate 88 /min 88 /min MERLEENT (Neymar Hilario MD) Systolic blood pressure 93 mm[Hg] 93 mm[Hg] [facility] Diastolic blood pressure 53 mm[Hg] 53 mm[Hg] [facility] Body temperature 36.67 Oly 36.67 Oly [facility] Respiratory rate 20 /min 20 /min [facility] Oxygen saturation in Arterial blood by Pulse oximetry 96 % 96 % [facility] Heart rate 75 /min 75 /min [facility] Body weight 93.759 kg 93.759 kg [facility] Inhaled oxygen concentration 21 % 21 % SPUR ([facility]) Inhaled oxygen flow rate 0 L/min 0 L/min LAKESHIA ([facility]) Systolic blood pressure 132 mm[Hg] 132 mm[Hg] G REENWAY ([facility]) Diastolic blood pressure 78 mm[Hg] 78 mm[Hg] L[place]ESHIA ([facility]) Heart rate 75 /min 75 /min LAKESHIA ([facility]) Respiratory rate 24 /min 24 /min L[place]ESH[place] ([facility]) Body temperature 95.6 [degF] 95.6 [degF] [facility] ([facility]) Oxygen saturation in Arterial blood by Pulse oximetry 95 % 95 % SPUR ([facility]) Respiratory rate 24 /min 24 /min LAKESHIA ([facility]) Systolic blood pressure 126 mm[Hg] 126 mm[Hg] G REENWAY ([facility]) Diastolic blood pressure 72 mm[Hg] 72 mm[Hg] L[place]ESHIA ([facility]) Heart rate 80 /min 80 /min L[place] ([facility]) Body temperature 97.2 [degF] 97.2 [degF] GREENW AY ([facility]) Body weight 200 [lb_av] 200 [lb_av] L[place]ESHIA ([facility]) Oxygen saturation in Arterial blood by Pulse oximetry 98 % 98 % SPUR ([facility]) Inhaled oxygen flow rate 0 L/min 0 L/min SPUR ([facility]) Inhaled oxygen concentration 21 % 21 % SPUR ([facility]) Body weight 201 [lb_av] 201 [lb_av] eCW1 ([facility]) Body weight kg eCW1 ([facility]) Body height [in_i] eCW1 ([facility]) Body mass index (BMI) [Ratio] 31.95 kg/m2 31.95 kg/m2 W1 ([facility]) Heart rate 68 /min 68 /min eCW1 ([facility]) Respiratory rate 18 /min 18 /min eCW1 ([facility]) Body temperature 98.4 [degF] 98.4 [degF] eCW1 ( [facility]) Systolic blood pressure 154 mm[Hg] 154 mm[Hg] e CW1 ([facility]) Diastolic blood pressure 75 mm[Hg] 75 mm[Hg] eCW1 ([facility]) Body weight [lb_av] eCW1 ([facility]) Body height [in_i] eCW1 ([facility]) Body mass index (BMI) [Ratio] 28.93 kg/m2 28.93 kg/m2 W1 ([facility]) Heart rate 101 /min 101 /min eCW1 ([facility]) Respiratory rate 18 /min 18 /min eCW1 ([facility]) Body temperature 96.5 [degF] 96.5 [degF] eCW1 ( [facility]) Systolic blood pressure 142 mm[Hg] 142 mm[Hg] e CW1 ([facility]) Diastolic blood pressure 83 mm[Hg] 83 mm[Hg] eCW1 ([facility]) Body height 70 [in_i] 70 [in_i] MEDENT (Neymar Hilario MD) 5'10" Body temperature 99.9 [degF] 99.9 [degF] MEDENT (Neymar Hilario MD) Systolic blood pressure 125 mm[Hg] 125 mm[Hg] M EDENT (Neymar Hilario MD) Diastolic blood pressure 88 mm[Hg] 88 mm[Hg] MEDENT (Neymar Hilario MD) Heart rate 108 /min 108 /min MEDENT (Neymar Hilario MD) Oxygen saturation in Arterial blood by Pulse oximetry 96 % 96 % MEDENT (Neymar Hilario MD) Respiratory rate 16 /min 16 /min MEDENT ( Neymar Hilario MD) Systolic blood pressure 141 mm[Hg] 141 mm[Hg] e CW1 ([facility]) Diastolic blood pressure 74 mm[Hg] 74 mm[Hg] eCW1 ([facility]) Body weight [lb_av] eCW1 ([facility]) Body height [in_i] eCW1 ([facility]) Heart rate 117 /min 117 /min eCW1 ([facility]) Respiratory rate 18 /min 18 /min eCW1 ([facility]) Body temperature 99.6 [degF] 99.6 [degF] eCW1 ( [facility]) Systolic blood pressure 118 mm[Hg] 118 mm[Hg] G REENWAY ([facility]) Diastolic blood pressure 68 mm[Hg] 68 mm[Hg] LAKESHIA ([facility]) Heart rate 97 /min 97 /min [facility] Respiratory rate 24 /min 24 /min LAKESHIA ([facility]) Body temperature 97.6 [degF] 97.6 [degF] GRE[place] AY ([facility]) Oxygen saturation in Arterial blood by Pulse oximetry 98 % 98 % SPUR ([facility]) Diastolic blood pressure 78 mm[Hg] 78 mm[Hg] SPUR ([facility]) Systolic blood pressure 130 mm[Hg] 130 mm[Hg] [facility] ([facility]) Heart rate 90 /min 90 /min SPUR ([facility]) Respiratory rate 24 /min 24 /min SPUR ([facility]) Body temperature 97.3 [degF] 97.3 [degF] [place] A[place] ([facility]) Oxygen saturation in Arterial blood by Pulse oximetry 92 % 92 % SP[facility] ([facility]) Inhaled oxygen flow rate 0 L/min 0 L/min SP[facility] ([facility]) Inhaled oxygen concentration 21 % 21 % SPUR ([facility]) Systolic blood pressure 124 mm[Hg] 124 mm[Hg] [facility] ([facility]) Diastolic blood pressure 76 mm[Hg] 76 mm[Hg] [facility] ([facility]) Heart rate 95 /min 95 /min SPUR ([facility]) Respiratory rate 24 /min 24 /min SP[facility] ([facility]) Body temperature 97.8 [degF] 97.8 [degF] [place] ([facility]) Oxygen saturation in Arterial blood by Pulse oximetry 99 % 99 % [facility] ([facility]) Inhaled oxygen flow rate 0 L/min 0 L/min [facility] ([facility]) Inhaled oxygen concentration 21 % 21 % [facility] ([facility]) Systolic blood pressure 130 mm[Hg] 130 mm[Hg] G [facility] ([facility]) L calf measurement 47 cm, L foot 31 cm, and R calf 37 cm , L foot 26 cm Diastolic blood pressure 80 mm[Hg] 80 mm[Hg] SPUR ([facility]) L calf measurement 47 cm, L foot 31 cm, and R calf 37 cm , L foot 26 cm Heart rate 99 /min 99 /min SPUR ([facility]) L calf measurement 47 cm, L foot 31 cm, and R calf 37 cm , L foot 26 cm Respiratory rate 24 /min 24 /min SPUR ([facility]) L calf measurement 47 cm, L foot 31 cm, and R calf 37 cm , L foot 26 cm Body temperature 97.6 [degF] 97.6 [degF] [place] ([facility]) L calf measurement 47 cm, L foot 31 cm, and R calf 37 cm , L foot 26 cm Oxygen saturation in Arterial blood by Pulse oximetry 98 % 98 % [facility] ([facility]) L calf measurement 47 cm, L foot 31 cm, and R calf 37 cm , L foot 26 cm Inhaled oxygen flow rate 0 L/min 0 L/min [facility] ([facility]) L calf measurement 47 cm, L foot 31 cm, and R calf 37 cm , L foot 26 cm Inhaled oxygen concentration 21 % 21 % [facility] ([facility]) L calf measurement 47 cm, L foot 31 cm, and R calf 37 cm , L foot 26 cm Systolic blood pressure 122 mm[Hg] 122 mm[Hg] [facility]) Measured calf circumferance. Left 15.5 i n in diameter. Right, 20 inches in diameter. TS Diastolic blood pressure 70 mm[Hg] 70 mm[Hg] SPUR ([facility]) Measured calf circumferance. Left 15.5 i n in diameter. Right, 20 inches in diameter. TS Heart rate 78 /min 78 /min SPUR ([facility]) Measured calf circumferance. Left 15.5 i n in diameter. Right, 20 inches in diameter. TS Respiratory rate 22 /min 22 /min SP[facility] ([facility]) Measured calf circumferance. Left 15.5 i n in diameter. Right, 20 inches in diameter. TS Body temperature 96.8 [degF] 96.8 [degF] [facility] ([facility]) Measured calf circumferance. Left 15.5 i n in diameter. Right, 20 inches in diameter. TS Oxygen saturation in Arterial blood by Pulse oximetry 94 % 94 % [facility] ([facility]) Measured calf circumferance. Left 15.5 i n in diameter. Right, 20 inches in diameter. TS Inhaled oxygen flow rate 0 L/min 0 L/min LAKESHIA ([facility]) Measured calf circumferance. Left 15.5 i n in diameter. Right, 20 inches in diameter. TS Inhaled oxygen concentration 21 % 21 % LAKESHIA ([facility]) Measured calf circumferance. Left 15.5 i n in diameter. Right, 20 inches in diameter. TS Patient Treatment Plan of Care Planned Activity Planned Date Details Description Data Source (s) quetiapine 100 MG Oral Tablet [Seroquel] 08/03/2020 12:00:00 AM EST LAKESHIA ([facility]) Acetaminophen 325 MG / Hydrocodone Bitartrate 5 MG Ora l Tablet 08/03/2020 12:00:00 AM EST LAKESHIA ([facility]) gabapentin 300 MG Oral Capsule 07/28/2020 12:00:00 AM [facility] ([facility]) atorvastatin 20 MG Oral Tablet 07/28/2020 12:00:00 AM EST LAKESHIA ([facility]) Senna 8.6 MG Oral Tablet 07/28/2020 12:00:00 AM EST [place] ([facility]) Acetaminophen 325 MG Oral Tablet 07/28/2020 12:00:00 AM EST [place] ([facility]) Aspercreme Lidocaine 4% External Patch 07/28/2020 12:00:00 AM EST [facility] ([facility]) Citalopram 20 MG Oral Tablet 07/28/2020 12:00:00 AM EST [place] ([facility]) duloxetine 30 MG Delayed Release Oral Capsule [Cymbalt a] 07/28/2020 12:00:00 AM EST LAKESHIA ([facility]) Diltiazem Hydrochloride 30 MG Oral Tablet 07/28/2020 12:00:00 AM T [facility] ([facility]) Furosemide 20 MG Oral Tablet [Lasix] 07/28/2020 12:00:00 AM EST [facility] ([facility]) Pramipexole dihydrochloride 1 MG Oral Tablet [Mirapex] 07/28/2020 12:00:00 AM EST LAKESHIA ([facility]) pantoprazole 40 MG Delayed Release Oral Tablet 07/28/2020 12:00:00 AM EST L[place]ESHIA ([facility]) quetiapine 50 MG Oral Tablet 07/28/2020 12:00:00 AM [facility]) Carboxymethylcellulose Sodium 5 MG/ML Ophthalmic Solut ion 07/28/2020 12:00:00 AM EST LAKESHIA ([facility]) rivaroxaban 20 MG Oral Tablet [Xarelto] 07/28/2020 12:00:00 AM [facility]) gabapentin 600 MG Oral Tablet 07/28/2020 12:00:00 AM [facility]) Senna 8.6 MG Oral Tablet 07/21/2020 12:00:00 AM [facility]) gabapentin 300 MG Oral Capsule 07/20/2020 12:00:00 AM [facility]) rivaroxaban 20 MG Oral Tablet [Xarelto] 07/20/2020 12:00:00 AM [facility]) Acetaminophen 325 MG / Hydrocodone Bitartrate 5 MG Ora l Tablet 07/20/2020 12:00:00 AM [facility] ([facility]) atorvastatin 20 MG Oral Tablet 07/20/2020 12:00:00 AM [facility]) Levofloxacin 500 MG Oral Tablet [Levaquin] 06/12/2020 12:00:[address] [facility] ([facility]) Diltiazem Hydrochloride 30 MG Oral Tablet 06/04/2020 12:00:00 AM ES T [facility] ([facility]) Acetaminophen 325 MG Oral Tablet 06/04/2020 12:00:00 AM EST [facility]) Aspercreme Lidocaine 4% External Patch 06/04/2020 12:00:00 AM [facility] ([facility]) Citalopram 20 MG Oral Tablet 06/04/2020 12:00:00 AM [facility]) Pramipexole dihydrochloride 1 MG Oral Tablet [Mirapex] 06/04/2020 12:00:00 AM EST LAKESHIA ([facility]) Acetaminophen 325 MG / Hydrocodone Bitartrate 5 MG Ora l Tablet 06/04/2020 12:00:00 AM EST LAKESHIA ([facility]) quetiapine 50 MG Oral Tablet 06/04/2020 12:00:00 AM EST L[place]ESH[place] [facility]) Furosemide 20 MG Oral Tablet [Lasix] 06/04/2020 12:00:00 AM EST [place] [facility]) gabapentin 300 MG Oral Capsule 06/04/2020 12:00:00 AM EST [place] [facility]) duloxetine 30 MG Delayed Release Oral Capsule [Cymbalt a] 06/04/2020 12:00:00 AM EST L[place]ESHIA [facility]) pantoprazole 40 MG Delayed Release Oral Tablet 06/04/2020 12:00:00 AM EST [place] [facility]) atorvastatin 20 MG Oral Tablet [Lipitor] 06/04/2020 12:00:00 AM EST L[place] [facility]) Carboxymethylcellulose Sodium 5 MG/ML Ophthalmic Solut ion 06/04/2020 12:00:00 AM EST L[place]ESHIA [facility]) Senna 8.6 MG Oral Tablet 06/04/2020 12:00:00 AM EST [place] [facility]) rivaroxaban 20 MG Oral Tablet [Xarelto] 06/04/2020 12:00:00 AM EST [place] [facility]) Mupirocin 0.02 MG/MG Topical Ointment 06/04/2020 12:00:00 AM EST [place] [facility]) pantoprazole 40 MG Delayed Release Oral Tablet 05/25/2020 12:00:00 AM EST LAKESHAI [facility]) Amoxicillin 875 MG / Clavulanate 125 MG Oral Tablet 05/06/20 20 12:00:00 AM EST LAKESHIA [facility]) Mupirocin 0.02 MG/MG Topical Ointment 05/06/2020 12:00:00 AM EST LAKESHIA ([facility]) Acetaminophen 325 MG / Hydrocodone Bitartrate 5 MG Ora l Tablet 04/28/2020 12:00:00 AM EST L[place]ESHIA ([facility]) quetiapine 50 MG Oral Tablet 04/06/2020 12:00:00 AM EST L[place]ESH[place] ([facility]) pantoprazole 40 MG Delayed Release Oral Tablet [Proton ix] 04/06/2020 12:00:00 AM EST L[place]ESHIA ([facility]) Pramipexole dihydrochloride 1 MG Oral Tablet [Mirapex] 04/06/2020 12:00:00 AM EST [place] [facility]) Melatonin 5 MG Oral Tablet 04/06/2020 12:00:00 AM [facility]) atorvastatin 20 MG Oral Tablet [Lipitor] 04/06/2020 12:00:00 AM EST [facility]) Furosemide 20 MG Oral Tablet [Lasix] 04/06/2020 12:00:00 AM EST LAKESHIA ([facility]) Levetiracetam 750 MG Oral Tablet [Keppra] 04/06/2020 12:00:00 AM [facility] ([facility]) gabapentin 300 MG Oral Capsule 04/06/2020 12:00:00 AM [facility]) Diltiazem Hydrochloride 30 MG Oral Tablet 04/06/2020 12:00:00 AM [facility] ([facility]) duloxetine 30 MG Delayed Release Oral Capsule [Cymbalt a] 04/06/2020 12:00:00 AM EST LAKESHIA ([facility]) Citalopram 20 MG Oral Tablet 04/06/2020 12:00:00 AM EST [place] ([facility]) buspirone hydrochloride 5 MG Oral Tablet 04/06/2020 12:00:00 AM EST [facility]) Senna 8.6 MG Oral Tablet 04/06/2020 12:00:00 AM EST L[place]ESH[place] ([facility]) rivaroxaban 20 MG Oral Tablet [Xarelto] 04/06/2020 12:00:00 AM EST [place] ([facility]) LUIS M Elastic Bandage 4" Miscellaneous 04/06/2020 12:00:00 AM EST [place] ([facility]) Aspercreme Lidocaine 4% External Patch 04/06/2020 12:00:00 AM EST [place] ([facility]) Acetaminophen 325 MG Oral Tablet 04/06/2020 12:00:00 AM EST [place] ([facility]) Carboxymethylcellulose Sodium 5 MG/ML Ophthalmic Solut ion 04/06/2020 12:00:00 AM EST L[place]ESHIA ([facility]) Acetaminophen 325 MG / Hydrocodone Bitartrate 5 MG Ora l Tablet 04/06/2020 12:00:00 AM EST LAKESHIA ([facility]) Carboxymethylcellulose Sodium 5 MG/ML Ophthalmic Solut ion 04/06/2020 12:00:00 AM EST LAKESHIA ([facility]) Acetaminophen 325 MG / Hydrocodone Bitartrate 5 MG Ora l Tablet 03/30/2020 12:00:00 AM EST LAKESHIA ([facility]) LUIS M Elastic Bandage 4" Miscellaneous 03/16/2020 12:00:00 AM EDT LAKESHIA ([facility]) Acetaminophen 325 MG / Hydrocodone Bitartrate 5 MG Ora l Tablet 03/04/2020 12:00:00 AM EDT [facility] ([facility]) lidocaine (ASPERCREME) 4 % [facility] 09/19/2019 12:00:00 AM EDT [facility] Ondansetron 4 MG Disintegrating Oral Tablet 09/18/2019 12:00:00 AM EDT [facility] Furosemide 20 MG Oral Tablet [Lasix] 08/05/2019 12:00:00 AM EDT [facility] ([facility]) carvedilol 12.5 MG Oral Tablet [facility] sennosides, SN[facility] 8.6 MG Oral Tablet [facility] Oxycodone Hydrochloride 5 MG Oral Tablet [facility] Omeprazole 20 MG Delayed Release Oral Capsule [facility] Pramipexole dihydrochloride 1 MG Oral Tablet [Mirapex] [facility] mineral oil external liquid [facility] Magnesium Hydroxide 80 MG/ML Oral Suspension [facility] Melatonin 3 MG Oral Tablet [facility] Levetiracetam 750 MG Oral Tablet [facility] Sodium Phosphate, Dibasic 35.5 MG/ML / S odium Phosphate, Monobasic 96.4 MG/ML Enema [facility] Bisacodyl 10 MG Rectal Suppository [facility] buspirone hydrochloride 5 MG Oral Tablet [facility] Acetaminophen 325 MG Oral Tablet [facility]
[2021-03-22] MEDS ORDERED: cefTRIAXone SOD 2 GM in D5W MINI-BAG PLUS 50 ML IV ONE (16:15)
[2021-03-22 16:21] LABS: BASO % 0.5 % (0.0-1.0); EOS # 0.3 10^3/uL (0.0-0.5); EOS % 5.3 % (0.0-3.0); HEMATOCRIT 28.6 % (42.0-52.0); LYMPH % 16.1 % (24.0-44.0); MEAN CORPUSCULAR HEMOGLOBIN 34.8 pg (27.0-33.0); MEAN CORPUSCULAR VOLUME 99.7 fl (80.0-96.0); MONO # 0.4 10^3/uL (0.0-0.8); MONO % 5.9 % (2.0-8.0); NEUTROPHILS # 4.4 10^3/uL (1.5-8.5); NEUTROPHILS % 68.9 % (36.0-66.0); PLATELET COUNT, AUTOMATED 216 10^3/uL (150-450); RED BLOOD COUNT 2.87 10^6/uL (4.30-6.10); WHITE BLOOD COUNT 6.4 10^3/uL (4.0-10.0)
--- NOTE | 2021-03-22 16:36 | REP ---
INDICATION: SEPSIS/SHOCK. COMPARISON: Portable chest, 03/09/2021. TECHNIQUE: AP portable chest image was obtained. FINDINGS: There is chronic elevation of the right hemidiaphragm. There is airspace disease in the right lung base consistent with atelectasis or pneumonia. There is cardiomegaly, pulmonary venous hypertension and pulmonary interstitial edema consistent with congestive heart failure. 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 There is a single lead pacemaker. Status post median sternotomy. The upper abdominal bowel gas pattern is unremarkable. IMPRESSION: 1. Atelectasis or pneumonia in the right lung base. 2. Status post CABG surgery and pacemaker placement. 3. Congestive heart failure. <Electronically signed by Tal Recinos > 03/22/21 [id number]
[2021-03-22 16:42] LABS: CALCIUM LEVEL 8.6 MG/DL (8.8-10.2); CREATININE FOR GFR 5.77 MG/DL (0.70-1.30); GLOMERULAR FILTRATION RATE 10.4 (>42); POTASSIUM SERUM 4.3 MEQ/L (3.5-5.1)
[2021-03-22 16:45] LABS: VENOUS BASE EXCESS -1.9 (-2.0-2.0); VENOUS HCO3 24.6 MEQ/L (23.0-27.0); VENOUS O2 SATURATION 48.6 % (60.0-80.0); VENOUS PARTIAL PRESSURE CO2 49.8 mmHg (38.0-50.0); VENOUS PARTIAL PRESSURE O2 28.5 mmHg (30.0-50.0); VENOUS PH 7.312 UNITS (7.330-7.430); VENOUS TOTAL CO2 26.2 MEQ/L (24.0-28.0)
[2021-03-22] MEDS ORDERED: NS 3,150 ML in IV 1 EA IV ONE (16:45)
--- OUTSIDE RECORDS SUMMARY | 2021-03-22 16:54 | CCD ---
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 Hi Lo Driver Name Role Phone NO, PCP Unavailable Unavailable [...] Malina, Raza Mcclure MD Unavailable Unavailable Malina, Raaz Mcclure MD Unavailable Unavailable Malina, Raza Mcclure [...] MigeedIndra MD Unavailable Unavaila ble Migeed, Indra Serenity Tomlin MD Unavailable Unavaila ble MigeedInrda MD Unavailable Unavaila ble MigeedIndra MD Unavailable [...] MD Unavailable Unavailable CAPRICEMAK MD Unavailable Unavailable MAK HILARIO MD Unavailable Unavailable CAPRICEMAK Vaca MD Unavailable Unavailable CAPRICEMAK TOLLIVER MD Unavailable [...] L MARIO PA Unavailable Unavailable ANTECOL, Gina DOOLEY MD Unavailable [...] Unavailable Malina, C Nelson MD Unavailable Unavailable Re-disclosure Warning The records [...] is protected by Article 27-F of the [facility] Public Health law. If you continue you may have access to information: Regarding HIV / AIDS; Provided by facilities licensed or operated by the [facility] Office of Mental Health; or Provided by the [facility] Office for People With Developmental Disabilities. If such information is present, then the following [facility] mandated warning applies: This information has been [...] law may result in a fine or assisted sentence or both. A general authorization for the release of medical or other information is NOT sufficient authorization for further disc losure. Allergies and Adverse Reactions Type Description Substance Reaction Status Data Source(s ) No Known Drug Allergies No Known Drug Allergies [facility] Drug Allergy Drug Allergy NKDA [facility] ([facility]) Family History Family Member Name Family Member Gender Family Member Status Date o f Status Description Data Source(s) Unknown Male Problem [facility]ENT ([facility], ) () Encounters Encounter Providers Location Date Indications Data Source(s ) Outpatient Attender: MARIO CHRISTINA Main Office 03/01/2021 1 1:15:00 AM EDT [facility] ([facility]) Outpatient Attender: MARIO CHRISTINA Main Office 01/25/2021 1 2:45:00 PM EDT [facility] ([facility]) Outpatient Attender: SOUMYA DUPONT MD Main Office 12/25/2020 12:15:00 PM EDT [facility] ([facility]) Outpatient Attender: SOUMYA DUPONT MD Main Office 11/13/2020 08:00:00 AM EDT [facility] ([facility]) [place] [address] [facility] [address] 09/01/2020 12:00:00 AM EDT eCW1 ([facility]) Outpatient Attender: Nelson Delarosa MDConsultant: PCP NO 08/13/2020 02:20:00 PM EDT - 08/13/2020 03:20:00 PM EDT [facility] [place] [address] [facility] [address] 08/07/2020 12:00:00 AM EST eCW1 ([facility]) Inpatient Attender: Nabor Sylvester MDAdmitter: Nabor ratliff MD [id number] 08/06/2020 11:14:10 AM EST - 08/08/2020 02:57:00 PM EST [facility] Patient discharged. <td ID="encounterTypeDescriptionID0">[Pa tient Encounter]</td><td>Nelson Delarosa MD</td><td></td><td>08/04/2020</td><td>08/03/2020 4:37PM</td><td>08/03/2020 11:59PM</td><td></td>Outpatient Attender: Nelson Delarosa MD 0 08/03/2020 04:37:00 PM EST - 08/03/2020 11:59:00 PM EST [place] ([facility]) Outpatient<td ID="encounterTypeDescripti onID0">EXTENDED VISIT</td><td>Nelson Delarosa MD</td><td>[facility],</td><td>08/03/2020</td><td>1:05PM</td><td>2:05PM</td><td><content ID="encounterDiagnosisID0-0">Chronic Pain</content>, <content ID="encounterDiagnosisID0-1">Pulmonary Embolism</content>, <content ID="encounterDiagnosisID0-2">Hemiplegia Flaccid Affecting Right Dominant Side</content></td> Attender: Nelson Delarosa MD [facility], 08/03/2020 01:05:00 PM EST - 08/03/2020 02:05:00 PM EST Hemiplegia Flaccid Affecting Right Dominant SidePulmonary EmbolismChronic PainHemiplegia Flaccid Affecting Right Dominant SidePulmonary EmbolismChronic PainHemiplegia Flaccid Affecting Right Dominant SidePulmonary EmbolismChronic Pain [place] ([facility]) Hemiplegia Flaccid Affecting Right Domin ant Side Pulmonary Embolism Chronic Pain Hemiplegia Flaccid Affecting Right Domin ant Side Pulmonary Embolism Chronic Pain Hemiplegia Flaccid Affecting Right Domin ant Side Pulmonary Embolism Chronic Pain [place] [address] [facility] [address] 07/31/2020 12:00:00 AM EST eCW1 ([facility]) <td ID="encounterTypeDescriptionID1">HOS P I/P F/U</td><td>Nelson Delarosa MD</td><td>[facility],</td><td>07/28/2020</td><td>2:19PM</td><td>3:19PM</td><td><content ID="encounterDiagnosisID1-0">Hyperlipidemia</content>, <content ID="encounterDiagnosisID1-1">Chronic Pain</content>, <content ID="encounterDiagnosisID1-2">Restless Legs Syndrome</content>, <content ID="encounterDiagnosisID1-3">Venous Thrombosis Deep Vessels of Lower Extremity</content>, <content ID="encounterDiagnosisID1-4">Atrial Fibrillation Chronic</content>, <content ID="encounterDiagnosisID1-5">Stroke Syndrome</content>, <content ID="encounterDiagnosisID1-6">Anemia Macrocytic</content>, <content ID="encounterDiagnosisID1-7">Chronic Kidney Disease Stage 3</content>, <content ID="encounterDiagnosisID1-8">Congestive Heart Failure Systolic</content>, <content ID="encounterDiagnosisID1-9">Left Ventricular Hypertrophy</content></td>Outpatient Attender: Nelson Delarosa MD [facility], 07/28/2020 02:19:00 PM EST - 07/28/2020 03:19:00 [...] of Lower ExtremityRestless Legs SyndromeChronic PainHyperlipidemia [place] ([facility]) Left Ventricular Hypertrophy Congestive Heart Failure Systolic [...] Legs Syndrome Chronic Pain Hyperlipidemia Unknown [address] [facility] [address] 07/27/2020 12:00:00 AM EST eCW1 ([facility]) Outpatient [address] [facility] [address] 07/24/2020 12:00:00 AM EST eCW1 ([facility]) Unknown [address] [facility] [facility] [address] 07/24/2020 12:00:00 AM EST eCW1 ([facility]) ([id number]) For Template Leroy [address] [place] [address] 07/17/2020 12:00:00 AM EST eCW1 ([facility]) Outpatient Attender: NEYMAR HILARIO MD [facility] 07/14 02:45:00 PM EST MEDENT (Neymar Hilario MD) Outpatient Attender: Nelson Delarosa MDConsultant: PCP NO 07/14/2020 02:10:00 PM EST - 07/14/2020 03:10:00 PM EST [facility] (WND [id number]) New Patient 120 Min [address] [place] [address] 07/10/2020 12:00:00 AM EST eCW1 ([facility]) Unknown [address] [facility] [address] 06/29/2020 12:00:00 AM EST eCW1 ([facility]) Unknown [address] [facility] [address] 06/24/2020 12:00:00 AM EST eCW1 ([facility]) <td ID="encounterTypeDescriptionID2">RX UPDATE</td><td>Nelson Delarosa MD</td><td></td><td>07/20/2020</td><td>06/04/2020 3:12PM</td><td>06/04/2020 11:59PM</td><td></td>Outpatient Attender: Nelson Delarosa MD 0 06/04/2020 03:12:00 PM EST - 06/04/2020 11:59:00 PM EST [place] ([facility]) Outpatient Attender: Nelson Chong masters: Nelson Delarosa MDConsultant: PCP NO 06/04/2020 03:06:00 PM EST - 06/04/2020 03:16:00 PM EST [facility] <td ID="encounterTypeDescriptionID3">EXT ENDED VISIT</td><td>Nelson Delarosa MD</td><td>[facility]</td><td>06/04/2020</td><td>1:16PM</td><td>2:53PM</td><td><content ID="encounterDiagnosisID3-0">Anemia Macrocytic</content>, <content ID="encounterDiagnosisID3-1">Edema</content>, <content ID="encounterDiagnosisID3-2">Stroke Syndrome</content>, <content ID="encounterDiagnosisID3-3">Assessment of Slurred Speech</content>, <content ID="encounterDiagnosisID3-4">Peripheral Vascular Disease</content></td>Outpatient Attender: Nelson Delarosa MD [facility] 06/04/2020 01:16:00 PM EST - 06/04/2020 02:53:00 PM ES T Peripheral Vascular DiseaseAssessment of Slurred SpeechStroke SyndromeEdemaAnemia MacrocyticPeripheral Vascular DiseaseAssessment of Slurred SpeechStroke SyndromeEdemaAnemia MacrocyticPeripheral Vascular DiseaseAssessment of Slurred SpeechStroke SyndromeEdemaAnemia MacrocyticPeripheral Vascular DiseaseAssessment of Slurred SpeechStroke SyndromeEdemaAnemia Macrocytic [place] ([facility]) Peripheral Vascular Disease Assessment of Slurred Speech Stroke Syndrome Edema Anemia Macrocytic Peripheral Vascular Disease Assessment of Slurred Speech Stroke Syndrome Edema Anemia Macrocytic Peripheral Vascular Disease Assessment of Slurred Speech Stroke Syndrome Edema Anemia Macrocytic Peripheral Vascular Disease Assessment of Slurred Speech Stroke Syndrome Edema Anemia Macrocytic <td ID="encounterTypeDescriptionID4">STA NDARD OV</td><td>Nelson Delarosa MD</td><td>[facility]</td><td>05/14/2020</td><td>10:25AM</td><td>11:21AM</td><td><content ID="encounterDiagnosisID4-0">Cellulitis</content></td>Outpatient Attender: Nelson Delarosa MD [facility], 05/14/2020 10:25:00 AM EST - 05/14/2020 11:21:00 AM EST CellulitisCellulitisCellulitisCellulitisCellulitis [place] ([facility]) Cellulitis Cellulitis Cellulitis Cellulitis Cellulitis Outpatient Attender: Nelson Delarosa MDConsultant: PCP NO 05/14/2020 09:53:00 AM EST - 05/14/2020 10:53:00 AM EST [facility] Attender: Nelson Chong masters: Nelson Delarosa MDConsultant: PCP NO 05/06/2020 03:43:00 PM EST - 05/06/2020 03:53:00 PM EST [facility] Patient discharged. <td ID="encounterTypeDescriptionID5">EXT ENDED VISIT</td><td>Nelson Delarosa MD</td><td>[facility]</td><td>05/06/2020</td><td>3:10PM</td><td>4:15PM</td><td><content ID="encounterDiagnosisID5-0">Cellulitis</content>, <content ID="encounterDiagnosisID5-1">Persistent Insomnia</content></td>Outpatient Attender: Nelson Delarosa MD [facility] 05/06/2020 03:10:00 PM EST - 05/06/2020 04:15:00 PM EST Persistent InsomniaCellulitisPersistent InsomniaCellulitisPersistent InsomniaCellulitisPersistent InsomniaCellulitisPersistent InsomniaCellulitisPersistent InsomniaCellulitis [place] ([facility]) Persistent Insomnia Cellulitis Persistent Insomnia Cellulitis Persistent Insomnia Cellulitis Persistent Insomnia Cellulitis Persistent Insomnia Cellulitis Persistent Insomnia Cellulitis <td ID="encounterTypeDescriptionID6">EXT ENDED VISIT</td><td>Nelson Delarosa MD</td><td>[facility]</td><td>04/28/2020</td><td>9:40AM</td><td>10:53AM</td><td><content ID="encounterDiagnosisID6-0">Chronic Pain</content>, <content ID="encounterDiagnosisID6-1">Atrial Fibrillation Chronic</content>, <content ID="encounterDiagnosisID6-2">Late Effects of Cerebral Infarction Aphasia</content></td>Outpatient Attender: Nelson Delarosa MD [facility] 04/28/2020 09:40:00 AM EST - 04/28/2020 10:53:00 [...] of Cerebral Infarction AphasiaAtrial Fibrillation ChronicChronic Pain [place] ([facility]) Late Effects of Cerebral Infarction Apha [...] Apha bonnie Atrial Fibrillation Chronic Chronic Pain <td ID="encounterTypeDescriptionID7">EXT ENDED VISIT</td><td>Nelson Delarosa MD</td><td>[facility],</td><td>03/30/2020</td><td>1:03PM</td><td>2:36PM</td><td><content ID="encounterDiagnosisID7-0">Chronic Kidney Disease Stage 3</content>, <content ID="encounterDiagnosisID7-1">Atrial Fibrillation Chronic</content>, <content ID="encounterDiagnosisID7-2">Stroke Syndrome</content>, <content ID="encounterDiagnosisID7-3">Late Effects of Cerebral Infarction Aphasia</content>, <content ID="encounterDiagnosisID7-4">Edema</content></td>Outpatient Attender: Nelson Delarosa MD [facility], 03/30/2020 01:03:00 PM EST - 03/30/2020 02:36:00 [...] SyndromeAtrial Fibrillation ChronicChronic Kidney Disease Stage 3 [place] ([facility]) Edema Late Effects of Cerebral Infarction [...] adsorbed. 06/04/2020 02:22:00 PM EST completed <td ID="Jixciaitavwzp-Dkkdjzzmwwv-EZ6">Td</td><td ID="ImmunizationDose- 1">1</td><td>06/04/2020</td><td ID="Rywxfnqhklytg-EiryhQjge-GR0"></td><td></td> <td ID="Rbxtixtlzqisf-Ntgafz-NE5">Complete (Refused - Patient objection)</td><td>[facility] </td><td ID="Dcsthfzarzdfi-Ikaur-Gkpt-Comment-ID1"></td> [place] ([facility]) This CVX code allows reporting of a vacc ination when formulation is unknown (for example, when recording a Influenza vaccination when noted on a vaccination card) 06/04/2020 02:22:00 PM EST completed <td ID="Ujmfvdeejtgfs-Isgwzqnbdru-NG3">Influenza,NOS</td><td ID="ImmunizationDose- 0">1</td><td>06/04/2020</td><td ID="Fclggbehdabae-NngnpAhox-XO4"></td><td></td> <td ID="Jaodyqtrofomr-Gopffm-XT4">Complete (Refused - Patient objection)</td><td>[facility] </td><td ID="Orsloxgsrimmx-Ipphl-Iraj-Comment-ID0"></td> [place] ([facility]) Medications Medication Brand Name Start Date Product Form Dose Route Admi nistrative Instructions Pharmacy Instructions Status Indications Reaction Description Data Source(s) 8 HR Acetaminophen 650 MG Extended Release Oral Tablet 8 James r Pain Reliever 02/28/2021 12:00:00 AM EDT ORAL active [facility] ([facility]) quetiapine 50 MG Oral Tablet Quetiapine Fumarate 01/24/2021 12:00:00 AM EDT ORAL active [facility] ([facility]) torsemide 20 MG Oral Tablet Torsemide 12/25/2020 12:00:00 AM EDT ORAL active [facility] ([facility]) torsemide 20 MG Oral Tablet Torsemide 12/24/2020 12:00:00 AM EDT ORAL completed [facility] ([facility]) Docusate Sodium 50 MG / sennosides, SKILLED NURSING 8.6 MG Oral Tablet S chung-S 12/24/2020 12:00:00 AM EDT ORAL active M EDENT ([facility]) Aspirin 81 MG Delayed Release Oral Tablet Aspirin 12/24/2020 1 2:00:00 AM EDT ORAL active [facility] ([facility]) carvedilol 6.25 MG Oral Tablet Carvedilol 12/24/2020 12:00:00 AM EDT ORAL active [facility] ([facility]) Aluminum Hydroxide 40 MG/ML / Magnesium Hydroxide 40 MG/ML / Simethicone 4 MG/ML Oral Suspension Vpzkftl-Porockpr-Wzaqmowcxlo 12/24/2020 12:00:00 AM EDT ORAL completed [facility] ([facility]) 24 HR metoprolol succinate 50 MG Extended Release Oral Tablet Metoprolol Succinate ER 11/13/2020 12:00:00 AM EDT ORAL completed [facility] ([facility]) sacubitril 24 MG / valsartan 26 MG Oral Tablet [Entresto] En tresto 11/13/2020 12:00:00 AM EDT ORAL active M EDENT ([facility]) torsemide 20 MG Oral Tablet Torsemide 11/13/2020 12:00:00 AM EDT ORAL completed [facility] ([facility]) Acetaminophen 325 MG Oral Tablet [Tylenol] Tylenol 11/12/2020 12:00:00 AM EDT ORAL active [facility] ([facility]) Multi Vitamin 11/12/2020 12:00:00 AM EDT comp leted MEDENT ([facility]) Magnesium Hydroxide 240 MG/ML Oral Suspension Milk Of Magnes ia Concentrate 11/12/2020 12:00:00 AM EDT ORAL active MED[facility] ([facility]) Bisacodyl 10 MG Rectal Suppository [Dulcolax] Dulcolax 11/12/2020 12:00:00 AM EDT active [facility] ([facility]) Sodium Phosphate, Dibasic 35.5 MG/ML / S odium Phosphate, Monobasic 96.4 MG/ML Enema Enema Disposable 11/12/2020 12:00:00 AM EDT active MED[facility] ([facility]) Acetaminophen 650 MG Rectal Suppository Acetaminophen 11/12/2020 12:00:00 AM EDT completed [facility] ([facility]) Calcium Carbonate 1500 MG Oral Tablet Calcium 600 11/12/2020 12:00 :00 AM EDT ORAL completed [facility] ([facility]) apixaban 5 MG Oral Tablet [Eliquis] Eliquis 11/12/2020 12:00:00 AM E DT ORAL active [facility] ([facility]) atorvastatin 20 MG Oral Tablet Atorvastatin Calcium 11/12/2020 1 2:00:00 AM EDT ORAL active MED[facility] ( [facility]) gabapentin 600 MG Oral Tablet Gabapentin 11/12/2020 12:00:00 AM EDT ORAL active [facility] ([facility]) Trazodone Hydrochloride 50 MG Oral Tablet Trazodone HCL 11/12/2020 12:00:00 AM EDT ORAL completed [facility] ([facility]) pantoprazole 40 MG Delayed Release Oral Tablet Pantoprazole Sodium 11/12/2020 12:00:00 AM EDT ORAL active M EDENT ([facility]) Pramipexole dihydrochloride 1 MG Oral Tablet Pramipexole Dih ydrochloride 11/12/2020 12:00:00 AM EDT ORAL active [facility] ([facility]) Enalapril Maleate 5 MG Oral Tablet Enalapril Maleate 11/12/2020 12:00:00 AM EDT ORAL completed [facility] ([facility]) quetiapine 50 MG Oral Tablet Quetiapine Fumarate 11/12/2020 12:00:00 AM EDT ORAL completed [facility] ([facility]) carvedilol 6.25 MG Oral Tablet Carvedilol 11/12/2020 12:00:00 AM EDT ORAL completed [facility] ([facility]) Bumetanide 1 MG Oral Tablet [Bumex] Bumex 11/12/2020 12:00:00 AM EDT [facility] B[facility] 1 MG Oral Tablet Bumetanide 08/20/2020 12:00:00 AM EDT active MEDENT (Neymar Hilario MD) Trazodone Hydrochloride 50 MG Oral Tablet Trazodone HCL 08/20/2020 12:00:00 AM EDT ORAL active MEDENT (Mindy Hilario MD) dronedarone 400 MG Oral Tablet [Multaq] Multaq 08/20/2020 12:00:0 0 AM EDT ORAL active MEDENT (Mindy Hilario MD) iopamidol (ISOVUE-300) 61 % injection [id number] 08/07/2020 02:25:36 PM EST active As needed, Starting 08/07 at 1425, Intra-Procedure [facility] Medication administered onsite iodixanol (VISIPAQUE) 270 MG/ML injection [id number] 08/07/2020 02:22 :07 PM EST active As needed, Starting Mon08/07/20 at 1422, Intra-Procedure [facility] Medication administered onsite 2 ML Midazolam 1 MG/ML Injection midazolam (VERSED) in jection midazolam (VERSED) injection 08/07/2020 01:47:56 PM EST active As needed, Starting Mon08/07/20 at 1347, Intra-Procedure [facility] Medication administered onsite lidocaine (PF) (XYLOCAINE-MPF) 1 % injection [id number] 04/2021 01:47:55 PM EST active As needed, Start ing Mon08/07/20 at 1347, IntraProcedure [facility] Medication administered onsite fentaNYL Citrate (PF) (SUBLIMAZE) injection 6246-3357-98 08/07/2020 01:47:47 PM EST active As neede d, Starting Mon08/07/20 at 1347, Intra-Procedure [facility] Medication administered onsite Cefazolin 1000 MG Injection ceFAZolin (ANCEF) injectio n ceFAZolin (ANCEF) injection 08/07/2020 01:41:35 PM EST active As needed, Starting Mon08/07/20 at 1341, Intra-Procedure [facility] Medication administered onsite pantoprazole 40 MG Delayed Release Oral Tablet pantoprazole (PROTONIX) EC tablet 40 mg pantoprazole (PROTONIX) EC tablet 40 mg 08/07/2020 09:00:[address] 40 mg Oral active Gastroesophageal Reflux Diseas e 40 mg, Oral, Daily, Indications: Gastroesophageal Reflux Disease, First dose on Mon08/07/20 at 0900 [facility] Gastroesophageal Reflux Disease Medication administered onsite Magnesium Chloride 0.16876 MEQ/ML / Pota ssium Chloride 0.0497 MEQ/ML / Sodium Acetate 0.0163 MEQ/ML / Sodium Chloride 0.0899 MEQ/ML / Sodium gluconate 5.02 MG/ML Injectable Solution [Normosol-R] electrolyte-R (NORMOSOL-R/PLASMALYTE-R) solution electrolyte-R (NORMOSOL-R/PLASMALYTE-R) solution 08/07 04:00:00 AM EST Intravenous aborted at 3 0 mL/hr, Intravenous, Continuous, Starting Mon08/07/20 at 0400, Pre-op [facility] Medication administered onsite cefazolin (ANCEF) injection 2 g 08/07/2020 12:00:00 AM EST 2 g Intravenous completed Perioperative Pharmacoprophylaxis 2 g, Intravenous, Administer over 6 Minutes, call or contact centre manager, Mon08/07/20 at 0000, For 1 dose, Pre-op
Use 2 gm for patients less than 120 kg Use 3 gm for patients greater than or equal to 120 kg RN may administer IV push or infuse this medication through syringe adapter set ref [id number]. Flush line after use
[facility] Perioperative Pharmacoprophylaxis Medication administered onsite Levetiracetam 500 MG Oral Tablet levETIRAcetam (KEPPRA ) tablet 750 mg levETIRAcetam (KEPPRA) tablet 750 mg 08/06/2020 09:00:00 PM EST 750 m g Oral active 750 mg, Oral, 2 times daily, First dose on Mon08/06/20 at 2100 [facility] Medication administered onsite Pramipexole dihydrochloride 1 MG Oral Tablet pramipexo le (MIRAPEX) tablet 1 mg pramipexole (MIRAPEX) tablet 1 mg 08/06/2020 09:00:00 PM EST 1 mg Oral active 1 mg, Oral, 2 times daily, First dose on Mon08/06/20 at 2100 [facility] Medication administered onsite Carboxymethylcellulose 0.01 MG/MG Ophtha lmic Gel carboxymethylcellulose sod PF (REFRESH CELLVISC) 1 % ophthalmic 2 drop carboxymethylcellulose sod PF (REFRESH CELLVISC) 1 % ophthalmic 2 drop 08/06/2020 09:00:00 PM EST 2 [drp] active 2 drop, Left Eye, 3 times daily, First dose on Mon08/06/20 at 2100 [facility] Medication administered onsite Diltiazem Hydrochloride 30 MG Oral Tablet diltiazem (C ARDIZEM) tablet 30 mg diltiazem (CARDIZEM) tablet 30 mg 08/06/2020 09:00:00 PM EST 30 mg Oral active 30 mg, Oral, 3 times daily, First dose on Mon08/06/20 at 2100
Hold for SBP <100 or HR <60
[facility] Medication administered onsite duloxetine 30 MG Delayed Release Oral Ca psule DULoxetine (CYMBALTA) DR capsule 30 mg DULoxetine (CYMBALTA) DR capsule 30 mg 08/06/2020 09:00:00 PM EST 30 mg Oral active 30 mg, Oral, 2 times daily, First dose on Mon08/06/20 at 2100 [facility] Medication administered onsite Acetaminophen 325 MG / Hydrocodone Karissa trate 5 MG Oral Tablet HYDROcodone- acetaminophen (NORCO) 5-325 MG per tablet 1 tablet HYDROcodone-acetaminophen (NORCO) 5-325 MG per tablet 1 tablet 08/06/2020 09:00:00 PM EST 1 { tbl} Oral active 1 tablet, Oral, 2 times daily, First dose on Mon08/06/20 at 2100, For 7 days [facility] Medication administered onsite atorvastatin 20 MG Oral Tablet atorvastatin (LIPITOR) tablet 20 mg atorvastatin (LIPITOR) tablet 20 mg 08/06/2020 09:00:00 PM EST 20 mg Oral active 20 mg, Oral, Nightly, First dose on Aggie 08/06/20 at 2100 [facility] Medication administered onsite quetiapine 100 MG Oral Tablet QUEtiapine (SEROquel) ta blet 100 mg QUEtiapine (SEROquel) tablet 100 mg 08/06/2020 08:00:00 PM EST 100 mg Oral active 100 mg, Oral, Nightly, First dose on Aggie 08/06/20 at 20 00 [facility] Medication administered onsite quetiapine 25 MG Oral Tablet QUEtiapine (SEROquel) tab let 50 mg QUEtiapine (SEROquel) tablet 50 mg 08/06/2020 08:00:00 PM EST 50 mg Oral active 50 mg, Oral, Nightly, First dose on Aggie 08/06/20 at 2000 [facility] Medication administered onsite gabapentin 300 MG Oral Capsule gabapentin (NEURONTIN) capsule 300 mg gabapentin (NEURONTIN) capsule 300 mg 08/06/2020 06:00:00 PM EST 300 mg Oral active 300 mg, Oral, 3 times daily, First dose on Aggie 08/06/20 at 1800 [facility] Medication administered onsite Citalopram 20 MG Oral Tablet citalopram (CeleXA) table t 20 mg citalopram (CeleXA) tablet 20 mg 08/06/2020 06:00:00 PM EST 20 mg Oral active 20 mg, Oral, Daily, First dose on Aggie 08/06/20 at 1800 [facility] Medication administered onsite Furosemide 40 MG Oral Tablet furosemide (LASIX) tablet 40 mg furosemide (LASIX) tablet 40 mg 08/06/2020 05:00:00 PM EST 40 mg Oral activ e 40 mg, Oral, Every morning, First dose on [place] 08/06/20 at 1700 [facility] Medication administered onsite carvedilol 3.125 MG Oral Tablet carvedilol (COREG) tab let 3.125 mg carvedilol (COREG) tablet 3.125 mg 08/06/2020 05:00:00 PM EST 3.125 mg Oral active 3.125 mg, Oral, 2 times daily, First dos e on Aggie 08/06/20 at 1700
Hold for SBP <100 or HR <60
[facility] Medication administered onsite sennosides, SKILLED NURSING 8.6 MG Oral Tablet senna (SENOKOT) tab let 8.6 mg senna (SENOKOT) tablet 8.6 mg 08/06/2020 03:40:05 PM EST 8.6 mg Oral act mariana 8.6 mg, Oral, Nightly PRN, constipation, Starting Aggie 08/06/20 at 1540
Hold for loose stools. If patient is unable to swallow the tablet, nursing should crush and dissolve tablet in 10-15 ml of water prior to administration
[facility] Medication administered onsite heparin (porcine) injection 5,000 Units [id number] 08/07/19 03:10:00 PM EST 5000 U Subcutaneous active 5,000 Units , Subcutaneous, Every 8 hours (scheduled), First dose on Aggie 08/06/20 at 1510
If platelet count is less than 100,000 or hematocrit is less than 30, or if there is a 5 point decrease in hematocrit, do not give the dose and call physician/designee.
[facility] Medication administered onsite normal saline flush 0.9 % injection 3 mL [id number] 08/06/2020 03:10:00 PM EST 3 mL Intravenous active 3 mL , Intravenous, Every 8 hours (scheduled), First dose on Aggie 08/06/20 at 1510
flush per protocol, D/C Main IV fluid if appropriate
[facility] Medication administered onsite buspirone hydrochloride 5 MG Oral Tablet busPIRone (BU SPAR) tablet 5 mg busPIRone (BUSPAR) tablet 5 mg 08/06/2020 03:10:00 PM EST 5 mg Or al active 5 mg, Oral, 3 times daily, First dose on Aggie 08/06/20 at 1510 [facility] Medication administered onsite Magnesium Hydroxide 80 MG/ML Oral Suspen pema magnesium hydroxide (MILK OF MAGNESIA) 400 MG/5ML suspension 30 mL magnesium hydroxide (MILK OF MAGNESIA) 4 00 MG/5ML suspension 30 mL 08/06/2020 02:53:53 PM EST 30 mL Oral active 30 mL, Oral, Daily PRN, constipation, Starting Aggie 08/06/20 at 1453
hold for loose stools
[facility] Medication administered onsite quetiapine 100 MG Oral Tablet [Seroquel] SEROquel 100 MG Oral Tablet SEROquel 100 MG Oral Tablet 08/03/2020 12:00:00 AM EST 1 active quetiapine 100 MG Oral Tablet [Seroquel] [facility]) Acetaminophen 325 MG / Hydrocodone Karissa trate 5 MG Oral Tablet HYDROcodone- Acetaminophen 5-325 MG Oral Tablet HYDROcodone-Acetaminophen 5-325 MG Oral Tablet 08/03/2020 12:00:00 AM EST active acetaminophen 325 MG / hydrocodone bitartrate 5 MG Oral Tablet [facility]) carvedilol 3.125 MG Oral Tablet [Coreg] Coreg 3.125 MG Oral Tablet Coreg 3.125 MG Oral Tablet 08/03/2020 12:00:00 AM EST act mariana carvedilol 3.125 MG Oral Tablet [Coreg] [facility]) atorvastatin 20 MG Oral Tablet Atorvastatin Calcium 20 MG Oral Tablet Atorvastatin Calcium 20 MG Oral Tablet 07/28/2020 12:00:00 AM EST active atorvastatin 20 MG Oral Tablet [facility] gabapentin 600 MG Oral Tablet Gabapentin 600 MG Oral T ablet Gabapentin 600 MG Oral Tablet 07/28/2020 12:00:00 AM EST active gabapentin 600 MG Oral Tablet [facility]) gabapentin 300 MG Oral Capsule Gabapentin 300 MG Oral Capsule Gabapentin 300 MG Oral Capsule 07/28/2020 12:00:00 AM EST activ e gabapentin 300 MG Oral Capsule [facility]) Carboxymethylcellulose Sodium 5 [...] Oral Capsule [Cymbalta] [facility]) Diltiazem Hydrochloride 30 MG Oral Tablet dilTIAZem HC l 30 MG Oral Tablet dilTIAZem HCl 30 MG Oral Tablet 07/28/2020 12:00:00 AM EST active diltiazem hydrochloride 30 MG Oral Tablet [facility]) Furosemide 20 MG Oral Tablet [Lasix] Lasix 20 MG Oral Tablet Lasix 20 MG Oral Tablet 07/28/2020 12:00:00 AM EST active furosemide 20 MG Oral Tablet [Lasix] [facility]) Pramipexole dihydrochloride 1 MG Oral Tablet [Mirapex] Mirapex 1 MG Oral Tablet Mirapex 1 MG Oral Tablet 07/28/2020 12:00:00 AM EST active pramipexole dihydrochloride 1 MG Oral Tablet [Mirapex] [facility]) quetiapine 50 MG [...] pantoprazole 40 MG Delayed Release Oral Tablet [facility]) rivaroxaban 20 MG Oral Tablet [Xarelto] Xarelto 20 MG Oral Tablet Xarelto 20 MG Oral Tablet 07/28/2020 12:00:00 AM EST active rivaroxaban 20 MG Oral Tablet [Xarelto] [facility]) Acetaminophen 325 MG Oral Tablet Acetaminophen 325 MG Oral T ablet 07/28/2020 12:00:00 AM EST active acetamin ophen 325 MG Oral Tablet [facility]) Senna 8.6 MG Oral Tablet Senna 8.6 MG Oral Tablet 07/28/2020 12:00: 00 AM EST active Senna [place] ([facility]) Aspercreme Lidocaine 4% External Patch Aspercreme Lidocaine 4% External Patch 07/28/2020 12:00:00 AM EST active lidocaine 0.04 MG/MG Medicated Patch [place] ([facility]) Citalopram 20 MG Oral Tablet Citalopram Hydrobromide 2 0 MG Oral Tablet Citalopram Hydrobromide 20 MG Oral Tablet 07/28/2020 12:00:00 AM EST active citalopram 20 MG Oral Tablet GRE [facility]) Senna 8.6 MG Oral Tablet Senna 8.6 MG Oral Tablet 07/21/2020 12:00: 00 AM EST aborted Senna [place] ([facility]) rivaroxaban 20 MG Oral Tablet [Xarelto] Xarelto 20 MG Oral Tablet Xarelto 20 MG Oral Tablet 07/20/2020 12:00:00 AM EST aborte d rivaroxaban 20 MG Oral Tablet [Xarelto] [place] ([facility]) Acetaminophen 325 MG / Hydrocodone Karissa trate 5 MG Oral Tablet HYDROcodone- Acetaminophen 5-325 MG Oral Tablet HYDROcodone-Acetaminophen 5-325 MG Oral Tablet 07/20/2020 12:00:00 AM EST aborted acetaminophen 325 MG / hydrocodone bitartrate 5 MG Oral Tablet [place] ([facility]) gabapentin 300 MG Oral Capsule Gabapentin 300 MG Oral Capsule Gabapentin 300 MG Oral Capsule 07/20/2020 12:00:00 AM EST abort ed gabapentin 300 MG Oral Capsule [facility]) atorvastatin 20 MG Oral Tablet Atorvastatin Calcium 20 MG Oral Tablet Atorvastatin Calcium 20 MG Oral Tablet 07/20/2020 12:00:00 AM EST aborted atorvastatin 20 MG Oral Tablet [facility]) carvedilol 3.125 MG Oral Tablet Carvedilol 07/14/2020 12:00:00 AM EST ORAL active MEDENT (Neymar Hilario MD) Levofloxacin 500 MG Oral Tablet [Levaquin] Levaquin 50 0 MG Oral Tablet Levaquin 500 MG Oral Tablet 06/12/2020 12:00:00 AM EST aborted levofloxacin 500 MG Oral Tablet [Levaquin] [facility]) atorvastatin 20 MG Oral Tablet [Lipitor] Lipitor 20 MG Oral Tablet Lipitor 20 MG Oral Tablet 06/04/2020 12:00:00 AM EST abort ed atorvastatin 20 MG Oral Tablet [Lipitor] [place] ([facility]) Carboxymethylcellulose Sodium 5 MG/ML Op hthalmic [...] aborted citalopram 20 MG Oral Tablet GRE [facility]) Aspercreme Lidocaine 4% External Patch Aspercreme Lidocaine 4% External Patch 06/04/2020 12:00:00 AM EST aborted lidocaine 0.04 MG/MG Medicated Patch [place] ([facility]) Pramipexole dihydrochloride 1 MG Oral Tablet [Mirapex] Mirapex 1 MG Oral Tablet Mirapex 1 MG Oral Tablet 06/04/2020 12:00:00 AM EST aborted pramipexole dihydrochloride 1 MG Oral Tablet [Mirapex] [place] ([facility]) rivaroxaban 20 MG Oral Tablet [Xarelto] Xarelto 20 MG Oral Tablet Xarelto 20 MG Oral Tablet 06/04/2020 12:00:00 AM EST aborte d rivaroxaban 20 MG Oral Tablet [Xarelto] [facility]) Senna 8.6 MG Oral Tablet Senna 8.6 MG Oral Tablet 06/04/2020 12:00: 00 AM EST aborted Senna [place] ([facility]) Acetaminophen 325 MG Oral Tablet Acetaminophen 325 MG Oral T ablet 06/04/2020 12:00:00 AM EST aborted acetami nophen 325 MG Oral Tablet [place] ([facility]) Diltiazem Hydrochloride 30 MG Oral Tablet dilTIAZem HC l 30 MG Oral Tablet dilTIAZem HCl 30 MG Oral Tablet 06/04/2020 12:00:00 AM EST aborted diltiazem hydrochloride 30 MG Oral Tablet [place] ([facility]) duloxetine 30 MG Delayed Release Oral Ca psule [Cymbalta] Cymbalta 30 MG Oral Capsule Delayed Release Particles Cymbalta 30 MG Oral Capsule Delayed Rele ase Particles 06/04/2020 12:00:00 AM EST aborted duloxetine 30 MG Delayed Release Oral Capsule [Cymbalta] [place] ([facility]) gabapentin 300 MG Oral Capsule Gabapentin 300 MG Oral Capsule Gabapentin 300 MG Oral Capsule 06/04/2020 12:00:00 AM EST abort ed gabapentin 300 MG Oral Capsule [facility]) pantoprazole 40 MG Delayed Release Oral Tablet Pantoprazole Sodium 40 MG Oral Tablet Delayed Release Pantoprazole Sodium 40 MG Oral Tablet Delayed Release 06/04/2020 12:00:00 AM EST aborted pantoprazole 40 MG Delayed Release Oral Tablet [facility]) Mupirocin 0.02 MG/MG Topical Ointment Mupirocin 2% Ext ernal Ointment Mupirocin 2% External Ointment 06/04/2020 12:00:00 AM EST aborted mupirocin 0.02 MG/MG Topical Ointment [facility]) quetiapine 50 MG Oral Tablet QUEtiapine Fumarate 50 MG Oral Tablet QUEtiapine Fumarate 50 MG Oral Tablet 06/04/2020 12:00:00 AM EST aborted quetiapine 50 MG Oral Tablet [place] ([facility]) Acetaminophen 325 MG / Hydrocodone Karissa trate 5 MG Oral Tablet HYDROcodone- Acetaminophen 5-325 MG Oral Tablet HYDROcodone-Acetaminophen 5-325 MG Oral Tablet 06/04/2020 12:00:00 AM EST aborted acetaminophen 325 MG / hydrocodone bitartrate 5 MG Oral Tablet [place] ([facility]) Furosemide 20 MG Oral Tablet [Lasix] Lasix 20 MG Oral Tablet Lasix 20 MG Oral Tablet 06/04/2020 12:00:00 AM EST aborted furosemide 20 MG Oral Tablet [Lasix] [place] ([facility]) pantoprazole 40 MG Delayed Release Oral Tablet Pantoprazole Sodium 40 MG Oral Tablet Delayed Release Pantoprazole Sodium 40 MG Oral Tablet Delayed Release 05/25/2020 12:00:00 AM EST aborted pantoprazole 40 MG Delayed Release Oral Tablet [place] ([facility]) Amoxicillin 875 MG / Clavulanate 125 MG Oral Tablet Amoxicillin-Pot Clavulanate 875-125 MG Oral Tablet Amoxicillin-Pot Clavulanate 875-125 MG Oral Tablet 05/06/2020 12:00:00 AM EST aborted amoxicillin 875 MG / clavulanate 125 MG Oral Tablet [place] ([facility]) Mupirocin 0.02 MG/MG Topical Ointment Mupirocin 2% Ext ernal Ointment Mupirocin 2% External Ointment 05/06/2020 12:00:00 AM EST aborted mupirocin 0.02 MG/MG Topical Ointment [facility]) Acetaminophen 325 MG / Hydrocodone Karissa trate 5 MG Oral Tablet HYDROcodone- Acetaminophen 5-325 MG Oral Tablet HYDROcodone-Acetaminophen 5-325 MG Oral Tablet 04/28/2020 12:00:00 AM EST aborted acetaminophen 325 MG / hydrocodone bitartrate 5 MG Oral Tablet [place] ([facility]) LUIS M Elastic Bandage 4" Miscellaneous LUIS M Elastic Bandage 4" Miscellaneous 04/06/2020 12:00:00 AM EST aborted LUIS M Elastic Bandage 4" [place] ([facility]) rivaroxaban 20 MG Oral Tablet [Xarelto] Xarelto 20 MG Oral Tablet Xarelto 20 MG Oral Tablet 04/06/2020 12:00:00 AM EST aborte d rivaroxaban 20 MG Oral Tablet [Xarelto] [place] ([facility]) Senna 8.6 MG Oral Tablet Senna 8.6 MG Oral Tablet 04/06/2020 12:00: 00 AM EST aborted Senna [place] ([facility]) buspirone hydrochloride 5 MG Oral Tablet busPIRone HCl 5 MG Oral Tablet busPIRone HCl 5 MG Oral Tablet 04/06/2020 12:00:00 AM EST 1 aborted buspirone hydrochloride 5 MG Oral Tablet [facility]) Citalopram 20 MG Oral Tablet Citalopram Hydrobromide 2 0 MG Oral Tablet Citalopram Hydrobromide 20 MG Oral Tablet 04/06/2020 12:00:00 AM EST aborted [facility]ram 20 [facility] dulox[facility] 30 MG Delayed Release Oral Ca psule [Cymbalta] Cymbalta 30 MG Oral Capsule Delayed Release Particles Cymbalta 30 MG Oral Capsule Delayed Rele ase Particles 04/06/2020 12:00:00 AM EST aborted duloxetine 30 MG Delayed Release Oral Capsule [Cymbalta] [facility]) Diltiazem Hydrochloride 30 MG Oral Tablet dilTIAZem HC l 30 MG Oral Tablet dilTIAZem HCl 30 MG Oral Tablet 04/06/2020 12:00:00 AM EST aborted diltiazem hydrochloride 30 MG Oral Tablet [facility]) Acetaminophen 325 MG Oral Tablet Acetaminophen 325 MG Oral T ablet 04/06/2020 12:00:00 AM EST aborted acetami nophen 325 MG Oral Tablet [facility]) Aspercreme Lidocaine 4% External Patch Aspercreme Lidocaine 4% External Patch 04/06/2020 12:00:00 AM EST aborted lidocaine 0.04 MG/MG Medicated Patch [facility]) gabapentin 300 MG Oral Capsule Gabapentin 300 MG Oral Capsule Gabapentin 300 MG Oral Capsule 04/06/2020 12:00:00 AM EST abort ed gabapentin 300 MG Oral Capsule [facility]) Carboxymethylcellulose Sodium 5 MG/ML Op hthalmic Solution Refresh Tears 0.5% Ophthalmic Solution Refresh Tears 0.5% Ophthalmic Solution 04/06/2020 12:0 0:00 AM EST aborted carboxym ethylcellulose sodium 5 MG/ML Ophthalmic Solution [facility]) Levetiracetam 750 MG Oral Tablet [Keppra] Keppra 750 M G Oral Tablet Keppra 750 MG Oral Tablet 04/06/2020 12:00:00 AM EST abo rted levetiracetam 750 MG Oral Tablet [Keppra] [facility]) Acetaminophen 325 MG [...] MG/ML Ophthalmic Solution [facility]) Furosemide 20 MG Oral Tablet [Lasix] Lasix 20 MG Oral Tablet Lasix 20 MG Oral Tablet 04/06/2020 12:00:00 AM EST aborted furosemide 20 MG Oral Tablet [Lasix] [facility]) atorvastatin 20 MG Oral Tablet [Lipitor] Lipitor 20 MG Oral Tablet Lipitor 20 MG Oral Tablet 04/06/2020 12:00:00 AM EST abort ed atorvastatin 20 MG Oral Tablet [Lipitor] [facility]) Pramipexole dihydrochloride 1 MG Oral Tablet [Mirapex] Mirapex 1 MG Oral Tablet Mirapex 1 MG Oral Tablet 04/06/2020 12:00:00 AM EST aborted pramipexole dihydrochloride 1 MG Oral Tablet [Mirapex] [facility]) Melatonin 5 MG Oral Tablet Melatonin 5 MG Oral Tablet 2019 12:00:00 AM EST aborted melatonin 5 MG O ral Tablet [facility]) quetiapine 50 [...] Oral Tablet [Protonix] [facility]) Acetaminophen 325 MG / Hydrocodone Karissa trate 5 MG Oral Tablet HYDROcodone- Acetaminophen 5-325 MG Oral Tablet HYDROcodone-Acetaminophen 5-325 MG Oral Tablet 03/30/2020 12:00:00 AM EST 1 aborted acetaminophen 325 MG / hydrocodone bitartrate 5 MG Oral Tablet [facility]) LUIS M Elastic Bandage 4" Miscellaneous LUIS M Elastic Bandage 4" Miscellaneous 03/16/2020 12:00:00 AM EDT aborted LUIS M Elastic Bandage 4" [place] ([facility]) Senna 8.6 MG Oral Tablet Senna 8.6 MG Oral Tablet 03/06/2020 12:00: 00 AM EDT aborted Senna [place] ([facility]) Carboxymethylcellulose Sodium 5 MG/ML Op hthalmic Solution Refresh Tears 0.5% Ophthalmic Solution Refresh Tears 0.5% Ophthalmic Solution 03/06/2020 12:0 0:00 AM EDT aborted carboxym ethylcellulose sodium 5 MG/ML Ophthalmic Solution [facility]) rivaroxaban 20 MG Oral Tablet [Xarelto] Xarelto 20 MG Oral Tablet Xarelto 20 MG Oral Tablet 03/06/2020 12:00:00 AM EDT aborte d rivaroxaban 20 MG Oral Tablet [Xarelto] [facility]) pantoprazole 40 MG Delayed Release Oral Tablet [Protonix] Protonix 40 MG Oral Tablet Delayed Release Protonix 40 MG Oral Tablet Delayed Release 03/06/2020 12:00:00 AM EDT aborted pantoprazole 40 MG Delayed Release Oral Tablet [Protonix] [facility]) Pramipexole dihydrochloride 1 MG Oral Tablet [Mirapex] Mirapex 1 MG Oral Tablet Mirapex 1 MG Oral Tablet 03/06/2020 12:00:00 AM EDT aborted pramipexole dihydrochloride 1 MG Oral Tablet [Mirapex] [facility]) Acetaminophen 325 MG [...] O ral Tablet [facility]) duloxetine 30 MG Delayed Release Oral Ca psule [Cymbalta] Cymbalta 30 MG Oral Capsule Delayed Release Particles Cymbalta 30 MG Oral Capsule Delayed Rele ase Particles 03/06/2020 12:00:00 AM EDT aborted duloxetine 30 MG Delayed Release Oral Capsule [Cymbalta] [facility]) Citalopram 20 MG Oral Tablet Citalopram Hydrobromide 2 0 MG Oral Tablet Citalopram Hydrobromide 20 MG Oral Tablet 03/06/2020 12:00:00 AM EDT aborted citalopram 20 MG Oral Tablet GRE [facility]) Furosemide 20 MG Oral Tablet [Lasix] Lasix 20 MG Oral Tablet Lasix 20 MG Oral Tablet 03/06/2020 12:00:00 AM EDT aborted furosemide 20 MG Oral Tablet [Lasix] [facility]) Diltiazem Hydrochloride 30 MG Oral Tablet dilTIAZem HC l 30 MG Oral Tablet dilTIAZem HCl 30 MG Oral Tablet 03/06/2020 12:00:00 AM EDT aborted diltiazem hydrochloride 30 MG Oral Tablet [facility]) Aspercreme Lidocaine 4% External Patch Aspercreme Lidocaine 4% External Patch 03/06/2020 12:00:00 AM EDT aborted lidocaine 0.04 MG/MG Medicated Patch [facility]) buspirone hydrochloride 5 MG Oral [...] rted levetiracetam 750 MG Oral Tablet [Keppra] [place] ([facility]) gabapentin 300 MG Oral Capsule Gabapentin 300 MG Oral Capsule Gabapentin 300 MG Oral Capsule 03/06/2020 12:00:00 AM EDT 1 abort ed gabapentin 300 MG Oral Capsule [place] ([facility]) Acetaminophen 325 MG / Hydrocodone Karissa trate 5 MG Oral Tablet HYDROcodone- Acetaminophen 5-325 MG Oral Tablet HYDROcodone-Acetaminophen 5-325 MG Oral Tablet 03/04/2020 12:00:00 AM EDT 1 aborted acetaminophen 325 MG / hydrocodone bitartrate 5 MG Oral Tablet [place] ([facility]) lidocaine (ASPERCREME) 4 % [facility] [id number] 09/19/2019 12:00:00 AM EDT 2 {patch} Transdermal aborted Place 2 patches on t he skin daily [facility] Ondansetron 4 MG Disintegrating Oral Tab let ondansetron (ZOFRAN-ODT) 4 MG disintegrating tablet ondansetron (ZOFRAN-ODT) 4 MG disintegrating tablet 09/18/2019 12:00:00 AM EDT 4 mg Oral aborted Take 1 tablet (4 mg total) by mouth every 6 (six) hours as needed for nausea [facility] Furosemide 20 MG Oral Tablet [Lasix] Lasix 20 MG Oral Tablet Lasix 20 MG Oral Tablet 08/05/2019 12:00:00 AM EDT aborted furosemide 20 MG Oral Tablet [Lasix] [place] ([facility]) Omeprazole 20 MG Delayed Release Oral Ca psule Omeprazole 20 MG Oral Capsule Delayed Release Omeprazole 20 MG Oral Capsule Delayed Release 07/29/19 12:00:00 AM EST 1 aborted omeprazole 20 MG Delayed Release Oral Capsule [place] ([facility]) rivaroxaban 15 MG Oral Tablet [Xarelto] Xarelto 15 MG Oral Tablet Xarelto 15 MG Oral Tablet 07/29/2019 12:00:00 AM EST aborte d rivaroxaban 15 MG Oral Tablet [Xarelto] [facility]) gabapentin 300 MG Oral Capsule Gabapentin 300 MG Oral Capsule Gabapentin 300 MG Oral Capsule 07/29/2019 12:00:00 AM EST 1 abort ed gabapentin 300 MG Oral Capsule [facility]) buspirone hydrochloride 5 MG Oral Tablet busPIRone HCl 5 MG Oral Tablet busPIRone HCl 5 MG Oral Tablet 07/29/2019 12:00:00 AM EST 1 aborted buspirone hydrochloride 5 MG Oral Tablet [facility]) Pramipexole dihydrochloride 1 MG Oral Ta blet Pramipexole Dihydrochloride 1 MG Oral Tablet Pramipexole Dihydrochloride 1 MG Oral Tablet 0 12:00:00 AM EST aborted pramipexole dihy drochloride 1 MG Oral Tablet [facility]) mineral oil external liquid [id number] 1 {application} Topical aborted Apply 1 application topically da zayda as needed (for dry skin) [facility] Magnesium Hydroxide 80 MG/ML Oral Suspen pema magnesium hydroxide (MILK OF MAGNESIA) 400 MG/5ML suspension magnesium hydroxide (MILK OF MAGNESIA) 4 00 MG/5ML suspension 30 mL Oral aborted Take 30 mL by mouth daily as needed for constipation [facility] Melatonin 3 MG Oral Tablet Melatonin 3 MG TABS Melatonin 3 MG TABS 3 mg Oral aborted Take 3 mg by mouth n ightly as needed (for sleep) [facility] Levetiracetam 750 MG Oral Tablet levETIRAcetam (KEPPRA ) 750 MG tablet levETIRAcetam (KEPPRA) 750 MG tablet 750 mg Oral a borted Take 750 mg by mouth 2 (two) times a day [facility] Acetaminophen 325 MG Oral Tablet acetaminophen (TYLENO L) 325 MG tablet acetaminophen (TYLENOL) 325 MG tablet 325 mg Oral aborted Take 325 mg by mouth every 4 (four) hours as needed for pain [facility] Bisacodyl 10 MG Rectal Suppository bisacodyl (DULCOLAX ) 10 MG suppository bisacodyl (DULCOLAX) 10 MG suppository 10 mg Rectal aborted Insert 10 mg into the rectum daily as needed (for constpation) [facility] Sodium Phosphate, Dibasic 35.5 MG/ML / S odium Phosphate, Monobasic 96.4 MG/ML Enema Sodium Phosphates (FLEET) 7-19 GM/118ML ENEM Sodium Phosphates (FLEET) 7- 19 GM/118ML ENEM 1 {enema} Rectal aborted Insert 1 enema into the rectum once as needed (for constipation) [facility] buspirone hydrochloride 5 MG Oral Tablet busPIRone (BU SPAR) 5 MG tablet busPIRone (BUSPAR) 5 MG tablet 5 mg Oral aborted Take 5 mg by mouth 3 (three) times a day [facility] carvedilol 12.5 MG Oral Tablet carvedilol (COREG) 12.5 MG tablet carvedilol (COREG) 12.5 MG tablet 12.5 mg Oral aborted Take 12.5 mg by mouth 2 (two) times a day with meals [facility] sennosides, SKILL[facility] NURSING 8.6 MG Oral Tablet senna (SENOKOT) 8.6 MG TABS senna (SENOKOT) 8.6 MG TABS 8.6 mg Oral aborted Take 8.6 mg by mouth daily as needed (for constipation) [facility] Oxycodone Hydrochloride 5 MG Oral Tablet oxyCODONE (ROXICODONE) 5 MG immediate release tablet oxyCODONE (ROXICODONE) 5 MG immediate release tablet 5 mg Oral aborted Take 5 mg by mouth e very 4 (four) hours as needed for pain [facility] Omeprazole 20 MG Delayed Release Oral Ca psule omeprazole (PRILOSEC) 20 MG capsule omeprazole (PRILOSEC) 20 MG capsule 20 mg Oral aborted Take 20 mg by mouth daily [facility] Pramipexole dihydrochloride 1 MG Oral Ta blet [Mirapex] pramipexole (MIRAPEX) 1 MG tablet pramipexole (MIRAPEX) 1 MG tablet 1 mg Oral aborted Take 1 mg by mouth 2 (two) times a day [facility] Insurance Providers Payer name Policy type / Coverage type Policy ID Covered constitution party ID Covered constitution party's relationship to leroy Policy Leroy Plan Information [employer] [id number] MEDICARE A [id number] Self [id number] A MEDICARE A [id number] Self [id number] MEDICARE [id number] SP [id number] A MEDICARE [id number] MEDICARE [id number] Madeleine [id number] Medicare C [id number] SELF [id number] MEDICAID M [id number] Self [id number] MEDICARE [facility]) - [id number] 1 [id number] 1 [id number] MEDICAID [facility] /Access Closure. 2 [id number] 1 [id number] MEDICAID [facility] [id number] SP [id number] MEDICAID [id number] Madeleine [id number] MEDICAID [id number] xxxxxxxx [id number] Medicaid [facility] Healthcare S D [id number] SELF [id number] MEDICAID [id number] Madeleine [id number] Medicaid [facility] Other 0 [id number] Self 0 Medicare Part B of [facility] Other 0 [id number] Self 0 Medicaid of [place] Other 0 [id number] Self 0 Medicare Part B of [facility] Other 0 [id number] Self 0 Medicaid of [place] Other 0 [id number] Self 0 Medicare Part B of [facility] Other 0 [id number] Self 0 Medicaid of [place] Other 0 [id number] Self 0 Medicare Part B of [facility] Other 0 [id number] Self 0 Medicaid of [place] Other 0 [id number] Self 0 Medicare Part B of [facility] Other 0 [id number] Self 0 Medicaid of [place] Other 0 [id number] Self 0 Medicare Part B of [facility] Other 0 [id number] Self 0 MEDICARE C [id number] S [id number] [id number] Medicaid of [place] Other 0 [id number] Self 0 Medicare Part B of [facility] Other 0 [id number] Self 0 MEDICARE PART A -O [id number] 18 [id number] MEDICAID -O/P KEVIN [id number] 18 [id number] MEDICARE PART A -I/P [id number] 18 [id number] MEDICAID -I/P [id number] 18 [id number] MEDICARE PART A -O/P [id number] 18 [id number] Medicaid [facility] Other 0 [id number] Self 0 Medicare Part B [facility] Other 0 [id number] Self 0 Medicaid [facility] Other 0 [id number] Self 0 Medicare Part B [facility] Other 0 [id number] Self 0 MEDICAID [id number] SP [id number] ANSI-Medicare Part B [id number] ANSI-Medicare Part B [id number] ANSI-Medicare Part B [id number] ANSI-Medicare Part B [id number]-[id number]-[id number] ANSI-Medicare Part B [id number]-[id number]-w8n5-660e-0h50-[id number] ANSI-Medicare Part B [id number]-[id number] [id number]-447t-[id number] ANSI-Medicare Part B [id number] [id number]240qtti3ho5 ANSI-Medicare Part B [id number] 6k1v9hp9-6653-9i27-95g2-3637786ejz62 ANSI-Medicare Part B 606gv9m1-b1[id number] 754ko7c9-o773-6205-6246-0z09vr23qqf0 ANSI-Medicare Part B [id number]-w0h1-nh36b20n71u4 29o892kx-qe28-7d02-y6m6-lc95l78d42s8 ANSI-Medicare Part B [id number]-1p17-3q03-y9v2019yboe4 r4jmq338-425f-8b44-9h43-s6d0816qxle3 ANSI-Medicare Part B [id number]-qv29-0f70-0f22-[id number] 6659o40y-wi34-8q92-0g51-r37pf1261j74 ANSI-Medicare Part B [id number]-fj48-6x0a5e34a26n 488w6l07-9k25-051l-az94-7o2s7g40t10q ANSI-Medicare Part B [id number]r60hv8p37f5 ia4c4272-6r04-8804-3008-4o86kc9x37o2 ANSI-Medicare Part B m444l649-7w62-5452-v37v-t087808h442x n247n471-9e51-8652-f77n-j457642k268f ANSI-Medicare Part B 074oag46-f23y-155z-ju41-45a7617925s9 225mtf40-u88b-132a-gd20-48k7156116i3 ANSI-Medicare Part B hw2pz13s-722p-2p56-f927-641by260i69n di0pw85w-583g-5v79-n749-701yr874y20t ANSI-Medicare Part B 21ze2112-g601-3722-9bb9-8x28py590uu4 07zm3043-e166-9895-7oc2-2b57dc365kw9 ANSI-Medicare Part B 44n4gb6d-94wy-89v3-5c22-grv1p0t0f277 62u6kc1w-83ig-17v1-0y59-kjv8x6j1b815 ANSI-Medicare Part B 1669zb57-57c3-6961-904m-rma735121u87 1675wj06-58h7-9451-538o-qkw545346g78 ANSI-Medicare Part B [id number]d41so60957f 0x900457-5r59-4a50-6964-3p31ny61757m ANSI-Medicare Part B bu97vyw8-2m36-0091-9cu2-069f0r4dyd09 xg07cru6-9b28-8098-1uv9-637m5d2thq54 ANSI-Medicare Part B 0b960922-948f-9590-01q9-01ec97d3yhr5 7c998290-619w-8724-20q9-35ej87h0wcx9 ANSI-Medicare Part B k3911dur-5740-76o4-8ktt-9k14s891944s r8603rkd-6259-84l4-2kmh-8a11w921873i MEDICARE [id number] ANSI-Medicare Part B wf650mr4-160n-1r76-l371-y32y761827xd hp541lq4-424h-8t98-j560-a91o070282pn ANSI-Medicare Part B 63808248-u212-3060-686j-2129j883kv9q 10995620-i314-1708-108j-8261m116px1s MEDICAID -PHYSICIAN [id number] MEDICAID -O [id number] MEDICARE PART A -O [id number] MEDICARE PART A -I/P [id number] ANSI-Medicare Part B [id number]-od9f-83kk-472w-3g0k5hc473v4 xa630595-zj4k-76rb-757j-7z6r8wz843n0 ANSI-Medicare Part B 7552na8c-1b93-49v3-hq09-5112wd7qai87 8760ul5u-5q47-89t3-du98-6574oi4agy91 ANSI-Medicare Part B 27a169yi-3y56-5p1m-x659-zx6q9yc8z2fz 50m440az-3x35-5o2d-p136-li5h6fm1i5uq ANSI-Medicare Part B t3pn3w42-88m8-9318-1ndb-66qm752k08l7 w1ne1e24-34n0-1522-6fdy-47nh469x32h8 ANSI-Medicare Part B o6800qn0-wk5w-50r9-0mw5-m283372975is g7588wb8-bf4x-14h9-5hb6-g665882111vi ANSI-Medicare Part B 92mh9586-2h37-7o05-93c2-nt94z67q412s 50fw1519-7k43-5g94-06z3-dd21f01a903r ANSI-Medicare Part B z031899z-2z3l-62p6-hwv7-f8cy4g5830ni y744415v-5g1s-99g1-vhs7-v5go0g9189uh ANSI-Medicare Part B 1n9ho43a-b2q3-7233-3v66-890q6hm3h5aw 9t6my28q-i3o1-3597-4w03-363s4jl0a3uq ANSI-Medicare Part B 7fd2n6pw-5l66-3c15-y092-21fx6zi0ll9f 0iq1k3wl-5p40-0v85-q345-77gr0bt8mq0v ANSI-Medicare Part B 1mblsjw9-yb10-2069-5l37-sv964u3q726o 6xgdler0-fp34-8219-6t94-bx098m8z717w ANSI-Medicare Part B 5t882832-l11c-5a61-r6n3-14g491rl7378 5b361007-c48n-5o79-u1t0-69v981zl2166 ANSI-Medicare Part B 665j37e0-1111-22q7-6092-6k8zas4j95p6 707k67m7-9828-98m8-2868-7g1nld3q16t2 ANSI-Medicare Part B 23k27gjc-d4en-7101-b261-n5n78e2b8712 25z37wsy-p9iz-8044-i517-b8v54k4s1264 ANSI-Medicare Part B 1f4rx0h4-4ao7-94ak-m7c9-26048e54x6wk 8n0kt8s8-6vs7-71ko-a3i5-11494d08a0md ANSI-Medicare Part B 9xzlo9pt-sis3-508e-w9wz-0t21577p636n 1jgjs0tl-hym0-938z-w3kc-0u94858e796v ANSI-Medicare Part B 6h9h1n0m-5vl3-432s-1q77-8q8573z237to 7o6o1o9x-0fj6-041e-6t31-9i2643m681od ANSI-Medicare Part B woxd1k98-zra0-9284-g762-12v45w1d0206 wrtz0k61-jvc4-5872-n451-85j60i1o7001 ANSI-Medicare Part B 2ht5s425-z7qa-66hm-9we5-p054b7wq239w 1am9z675-l0bf-21wn-8au0-m732l2sv455n ANSI-Medicare Part B 9vnj2m6q-5t46-01y8-cbu9-421140802ysm 9kvy8v6f-9k71-85e9-vww2-085754853cor ANSI-Medicare Part B r1177283-47sj-465w-m18n-c205s16y3h26 t5905671-84sl-458g-u64u-o661j79n1y20 ANSI-Medicare Part B s0shcund-2w29-1u2v-b1w5-9px54v0n11ww l9nkuspp-0g70-3d8p-d1u9-3xy43c7e99rt ANSI-Medicare Part B 7693a9r4-tu25-2d48-9a59-kt4r760492s0 8940u3y1-xn55-8j73-7t44-xg6r951439x5 ANSI-Medicare Part B 3837fqr8-sq08-0511-h7vh-77n32yzi2311 8272how7-ki62-9350-i9pv-65z40awt7147 ANSI-Medicare Part B 7151540k-30x3-373z-5r45-z2a1pqq73910 1336275n-36b5-684b-6b88-y5h0oxi87794 ANSI-Medicare Part B 585o8dh8-4l5b-52n9-32wt-92d8q7pj339h 061k0cg7-8k2w-78t7-36bu-52o9p8ep278d ANSI-Medicare Part B 7361352f-n3p4-35a9-1ga2-01v8l8wpu54h 7644509j-t5h6-25d3-1zi7-26u4a1xwy95v ANSI-Medicare Part B 81j41odf-64b3-7620-r4jk-4v90d71o2047 54c41seb-03m9-0258-e0hs-4t53t66b1074 ANSI-Medicare Part B 518956mp-0539-3vk0-122m-pk9um54k3sp8 422970fp-0530-7wy1-686y-de0tt72j7hr0 ANSI-Medicare Part B sa0396p1-8861-57f3-869a-1i1094045522 fc8296w2-4690-81d6-523u-3r0583955000 ANSI-Medicare Part B 2853an77-x3b5-2384-422o-1k270w993736 4102jx58-o6k9-2606-200k-1w389p366773 ANSI-Medicare Part B 386ke471-j89b-68tk-0383-pm88684632fq 274wo796-i31t-01ok-1480-ur59062335xi ANSI-Medicare Part B ozc09k68-r3p0-6c80-0631-27g090s7r7nd tnr02c01-k3r1-3q19-1742-40z573s5f1ez ANSI-Medicare Part B 8t3d3k3q-r166-60hp-515j-u902491969j5 1y9a4s1g-x708-15qk-677c-s338209367m4 ANSI-Medicare Part B 3b3c81p0-hws0-3722-28kj-542u9ruwu843 9s0g46e5-cjm7-4932-21pt-489u2wlqo581 ANSI-Medicare Part B 0b394677-g5y9-3jf0-690m-q737xxo2c6nd 6z053277-x6l5-3ly6-062n-c648khm2x1rl ANSI-Medicare Part B q0x77378-hztt-6601-jg8p-dj38v973ypb4 i2h47813-rgle-5060-sf1v-qw73p277nyy0 ANSI-Medicare Part B mdrp2dpw-a1jt-0k17-jfx7-ukxpvu5a9w8y dnlv6zsa-g4uz-9i08-aez9-rwlnoo8u4x8b ANSI-Medicare Part B 6732490p-64n2-422s-d3gy-694mtz5k6093 9737463w-78m9-078l-q4tm-388goq4e9198 ANSI-Medicare Part B 4h478855-7170-200z-kpq4-i2y72tweu787 1l112809-2551-721t-flu2-g9p27rehv599 ANSI-Medicare Part B 6i1bxuk4-x577-8754-01m1-7881e16d6733 1u2qoct9-f888-3704-56a2-9875l44x8155 ANSI-Medicare Part B 791o18gg-f20a-0065-ds11-7p154tddi3ax 347f40pg-n21u-9400-at32-1g963vexk1ni ANSI-Medicare Part B 7q3717vu-3089-8k8i-7xcc-98020t230s62 2w2876zb-6077-7k7s-3lgf-70460w988j00 ANSI-Medicare Part B k027dj80-q50n-72uj-309i-75844u64s67q d074re44-o19s-80gw-162a-75568x03r73d ANSI-Medicare Part B dkt60wgr-813c-201d-m54z-530908n0f413 nhn67afd-887s-895y-o39z-704917f8l582 ANSI-Medicare Part B 4q3y2i54-66i6-6pmy-g243-7ef52c9lu350 7d3z4l01-20t8-9ppn-n468-7ws85q0hy843 ANSI-Medicare Part B c5mm051o-h554-6237-12fg-09o77pr16w3c w9jc556k-t815-9220-96el-15g39ms71a9c ANSI-Medicare Part B 0645o645-99z2-279n-l081-9e86200a53h2 8607a685-09d4-004n-m914-3s47808w14a6 ANSI-Medicare Part B 10o18xh1-e0b7-0h29-c3mw-4n51o08i66xl 42a89mf6-u9o6-4n42-p1ih-2c12c36z80jd ANSI-Medicare Part B 00596cg6-6592-7005-97vt-j44yfcegl695 83500ni2-3642-4029-71xk-v19mexfop393 ANSI-Medicare Part B u6gld09w-14hu-52o0-54ii-v2q00403j408 y7lpe02g-17qt-24u3-98it-n0c64183n753 ANSI-Medicare Part B 8z36za35-820h-9k2n-le3a-7j8bz302pu30 1t95vt89-887n-0m0x-cz7v-9m1qb234mp17 ANSI-Medicare Part B 80870006-1273-62ou-d083-96367266ux7z 46960629-1336-84as-f311-97121067ec0c MEDICAID -[place] [id number] 1 [id number] MEDICARE -SWING BED [id number] ANSI-Medicare Part B 189m3az6-21k6-60re-790p-k02948e5w4t5 505u8ej7-48j7-59zr-649l-r68995c2r8k9 ANSI-Medicare Part B i529im07-a710-2j20-xo1z-589340746670 j253io37-h903-0z50-au0s-949783914808 ANSI-Medicare Part B 706qb707-08go-1341-g3b0-4247xv1faaqp 021ur624-91nt-6888-v5j8-3661pz6ykhxh ANSI-Medicare Part B l0190us9-d7pw-1l21-lhr5-f7shss5657yv a8604uq8-w0yh-9g85-vcs8-r9elth9525uu MEDICARE PART A -I/P [id number] 18 [id number] ANSI-Medicare Part B 68f088q4-2g97-24pz-12h4-8jov01e883u3 78z598y2-2j15-73rr-79y4-5rwk85c278p7 ANSI-Medicare Part B 847804y3-p8j2-1565-03w8-lo24pgau0vv7 608257r0-g0a2-3230-36r3-sd09idad2ya9 ANSI-Medicare Part B m7u0q493-m013-973b-k94q-548675453x09 s1p0d994-a231-665h-x08u-636734720n57 ANSI-Medicare Part B 999107q8-bp27-031b-adb4-6lf2u92l972x 171900q1-tp35-995z-auz8-5qq7m63z177b ANSI-Medicare Part B gs1q260z-s3w7-0717-2sf1-g88pw76nfpdo lk7p233r-k5e0-0353-8ez6-n48mp50ululp ANSI-Medicare Part B 6d39r5x5-956v-7j1x-laef-0w626888j54a 6g19v0e9-261g-8y8b-rmdo-7f075986c65c ANSI-Medicare Part B 20640xe1-s145-4a03-xzj3-05pwl09k72bg 90892lb4-r857-2e78-myi2-99swn84t62fd ANSI-Medicare Part B 0g7020b3-367b-506f-lx86-389014728q33 2l8969j9-284d-176r-rc57-742996491p75 ANSI-Medicare Part B 93z64j3d-ts7g-2bih-956l-w5uuzt59673j 29z11f5k-qs9s-0zii-020a-b8sduw02259w ANSI-Medicare Part B 1174ay6q-0n7k-5239-24jj-0w2ag83o3775 4644tl5n-1x3m-9152-41us-7w5sf50x0503 ANSI-Medicare Part B 64tb0p56-vll9-8e49-ku92-5168ez080074 71cs8a23-qwb2-9j88-fz99-0501ce937304 ANSI-Medicare Part B 7150i943-8y60-20d3-0536-54a9g72172v5 6184r333-2g75-12m6-0782-40s2u82084n8 ANSI-Medicare Part B r36ge799-1078-4121-x57t-0e5t028fdvv7 j72uv620-4027-1841-u87n-9o9z534wxqz5 ANSI-Medicare Part B 694891u0-3697-5777-g80o-438369k09691 033186s7-2719-6919-v02k-258621j81952 ANSI-Medicare Part B 0a0477k9-7343-74d2-5c4m-1v5c20md4563 9d8723o8-5723-17o0-6r6t-0l2f59ea7069 ANSI-Medicare Part B l37epoe5-ys08-457b-t827-471z6v403p53 q50wrkw6-uu74-346d-v918-557x6g763f78 ANSI-Medicare Part B 6h5e64t3-88g1-517w-616v-4k97i0za9f9m 1s4j88x9-20r8-093q-128t-8o10w3cr7f3l ANSI-Medicare Part B 868719hk-1323-4ltq-wh4g-8915xanx2254 505148le-7467-5nnt-sm3x-0502tugh7573 ANSI-Medicare Part B 55u64304-h5i4-3hy2-10s0-3342dl242765 29h53888-x2k6-3ax4-42a6-7031xh328300 ANSI-Medicare Part B y841726a-zvc5-8l0d-8319-g1o45e28972o c677512q-neg7-3y8v-2733-r7j10f75857x ANSI-Medicare Part B 090dk0a5-19aj-0143-i58s-77nw218a47e2 683ii7u8-09zv-3764-r71o-84wk234h69l7 ANSI-Medicare Part B r04o0073-o16c-7s68-j3x0-6jmf7g682101 f05i3417-i83d-7a32-s9y3-4lin6v647960 ANSI-Medicare Part B 374c20n1-78v6-1wom-439i-2107uj6687as 739b98l4-95g0-9jfy-858n-1370kh8188ye ANSI-Medicare Part B p9rg600p-6lur-090y-k320-0whn2806509n g0gm895h-0ujy-856o-e564-1qzl9675076r ANSI-Medicare Part B 53579m15-i203-0w90-4j67-vzke802k5808 12891k70-d203-7q19-9p41-jcau508p6969 ANSI-Medicare Part B 9n69op35-0n80-48o3-83gi-s189t71b5833 5d20lo48-4t06-67y0-50gt-h937w03e4157 ANSI-Medicare Part B 7yj3w880-9814-1393-2voj-36y23enkfum8 1pt4f924-1168-4769-0yti-14p92pijejo2 ANSI-Medicare Part B p8995636-3nho-647d-m0g4-qd8ybo15f49r m0174348-9psl-658i-e7e8-ni3tsz76b69z MEDICARE PART B -PHYSICIAN [id number] 18 [id number] MEDICAID -I [id number] MEDICARE PART A -I [id number] 18 [id number] MEDICARE [id number] SP [id number] MEDICAID [facility] [id number] SP [id number] MEDICARE [id number] SP [id number] MEDICARE UNAVAILABLE [place] MEDICARE [id number] SP [id number] SELF PAY UNAVAILABLE [place] MEDICAID [place]NA[place]ABLE SP [place] MEDICAID [id number] S [id number] MEDICARE C [id number] S [id number] A Medicare [place] Medicare Primary [id number] Self 5 [id number] MEDICARE - [place] MCR [id number] S [id number] [employer] [facility] MCR O MEBKFLHZ S MEB KFLHZ AETNA MEDICARE MEBKFLHZ SP MEBKF LHZ [employer] MEDICAID MCD HMO [id number] S [id number] [employer] MEDICAID MCD HMO [id number] S [id number] SELF PAY SP [place] S [place] [id number] SP [id number] MEDICARE [id number] SP [id number] MEDICARE PART A -O/P [id number] 18 [id number] MEDICAID -O/P [id number] 18 [id number] Medicaid [facility] Other 0 [id number] Self 0 Medicare Part B of [facility] Other 0 [id number] Self 0 Medicaid [facility] Other 0 [id number] Self 0 Medicare Part B of [facility] Other 0 [id number] Self 0 Medicaid [facility] Other 0 [id number] Self 0 Medicare Part B of [facility] Other 0 [id number] Self 0 Medicaid [facility] Other 0 [id number] Self 0 Medicare Part B of [facility] Other 0 [id number] Self 0 MEDICAID -O/P EMERGENCY ROOM [id number] 18 [id number] Medicaid [facility] Other 0 [id number] Self 0 Medicare Part B of [facility] Other 0 [id number] Self 0 Problems, Conditions, and Diagnoses Code Display Name Description Problem Type Effective Dates Data Source(s) I5020 Unspecified systolic (congestive) heart failure Unspecified systolic (congestive) heart failure Diagnosis 08/13/2020 02:20:[address] [facility] [place] G4089 Other seizures Other seizures Diagnosis 08/13/2020 02:20: 00 PM EDT [facility] Z125 Encounter for screening for malignant ne oplasm of prostate Encounter for screening for malignant neoplasm of prostate Diagnosis 02:20:00 PM EDT [facility] I4820 Chronic atrial fibrillation, unspecified Chronic atrial fibrillation, unspecified Diagnosis 08/13/2020 02:20:00 PM EDT [facility] N1831 Chronic kidney disease, stage 3a Chronic kidney disease, stage 3a Diagnosis 08/13/2020 02:20:00 PM EDT [facility] E782 Mixed hyperlipidemia Mixed hyperlipidemia Diagnosis 08/13/2020 02:20:00 PM EDT [facility] I49.5 Sick sinus syndrome Sick sinus syndrome Diagnosis 0 08/06/2020 11:14:10 AM [facility] I48.21 Permanent atrial fibrillation Permanent atrial fibrill ation Diagnosis 08/06/2020 11:14:10 AM [facility] D539 Nutritional anemia, unspecified Nutritional anemia, un specified Diagnosis 07/14/2020 02:10:00 PM [facility] [id number] Cellulitis of other sites Cellulitis of other sites Di agnosis 06/04/2020 03:06:00 PM [facility] I639 Cerebral infarction, unspecified Cerebral infarc tion, unspecified Diagnosis 05/14/2020 09:53:00 AM [facility] N1830 Chronic kidney disease, stage 3 unspecif ied Chronic kidney disease, stage 3 unspecified Diagnosis 05/14/2020 09:53:00 AM [facility] Z71.3 Dietary management surveillance Dietary management davida veillance Problem 03/01/2021 12:00:00 AM EDT [facility]) Z95.1 History of coronary artery bypass grafti ng History of coronary artery bypass grafting Problem 11/13/2020 12:00:00 AM EDT [facility] I49.5 Sinus node dysfunction Sinus node dysfunction Problem 11/13/2020 12:00:00 AM EDT [facility] ([facility]) Z95.0 Cardiac pacemaker in situ Cardiac pacemaker in situ Pr oblem 11/13/2020 12:00:00 AM EDT [facility] ([facility]) I10 Essential hypertension Essential hypertension Problem 11/13/2020 12:00:00 AM EDT [facility] ([facility]) E78.00 Pure hypercholesterolemia Pure hypercholesterolemia Pr oblem 11/13/2020 12:00:00 AM EDT [facility] ([facility]) I45.19 Right bundle branch block Right bundle branch block Pr oblem 11/13/2020 12:00:00 AM EDT [facility] ([facility]) 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 Chronic ischemic heart disease Problem 11/13/2020 12:00:00 AM EDT [facility] ([facility]) R07.9 Chest pain Chest pain Problem 11/13/2020 12:00:00 AM ED T [facility] ([facility]) R60.0 Edema Edema Problem 11/13/2020 12:00:00 AM ED T [facility] ([facility]) 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 Problem 10/12/2020 12:00:00 AM EDT [facility] ([facility]) I48.21 Permanent atrial fibrillation Permanent atrial fibrill ation Problem 10/12/2020 12:00:00 AM EDT [facility] ([facility]) R94.31 Electrocardiogram abnormal Electrocardiogram abnormal Problem 10/12/2020 12:00:00 AM EDT [facility] ([facility]) Z86.718 History of thromboembolism of vein History of th romboembolism of vein Problem 10/12/2020 12:00:00 AM EDT [facility] ([facility] I25.10 Multi vessel coronary artery disease Mul ti vessel coronary artery disease Problem 10/12/2020 12:00:00 AM EDT [facility] ([facility]) Z95.1 Hx of CABG Hx of CABG [id number] 08/06/2020 12:00:00 AM [facility] I25.5 Ischemic cardiomyopathy Ischemic cardiomyopathy [id number] 08/06/2020 12:00:00 AM [facility] 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 [id number] 08/06/2020 12:00:00 AM [facility] L97.812 [id number] Non-pressure chronic ulcer of other part of right lower leg with fat layer exposed Problem 07/10/2020 12:00:00 AM EST eCW1 ([facility]) L97.822 [id number] Non-pressure chronic ulcer of other part of left lower leg with fat layer exposed Problem 07/10/2020 12:00:00 AM EST eCW1 ([facility]) I87.311 [id number] Chronic venous hyper tension (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) OFFICE OUTPATIENT VISIT 25 MINUTES 03/01/2021 12:00:00 AM EDT [facility] ([facility]) OFFICE OUTPATIENT VISIT 15 MINUTES 01/25/2021 12:00:00 AM EDT [facility] ([facility]) Arterial Pressure Waveform Analysis For Assessment Of Cent[facility] 12/25/2020 12:00:00 AM EDT [facility] ([facility]) OFFICE OUTPATIENT VISIT 15 MINUTES 12/25/2020 12:00:00 AM EDT [facility] ([facility]) ECG ROUTINE ECG W/LEAST 12 LDS W/I&R 11/13/2020 12:00: 00 AM EDT [facility] ([facility]) Arterial Pressure Waveform Analysis For Assessment Of Centra l Art 11/13/2020 12:00:00 AM EDT [facility] ([facility]) OFFICE OUTPATIENT NEW 45 MINUTES 11/13/2020 12:00:00 A M EDT [facility] ([facility]) BLOOD COUNT COMPLETE AUTOMATED <td>CBC</td><td>Timed</ td><td>08/08/2020 6:34 AM EST</td><td></td><td> </td> 08/08/2020 11:34:00 AM EST [facility] XR CHEST PORTABLE <td>XR CHEST PORTABLE</td><t d>STAT</td><td>08/07/2020 4:57 PM EST</td><td></td><td> </td> 08/07/2020 09:57:13 PM EST [facility] INSERTION MICRA LEADLESS PPM <td>INSERTION MICRA LEADL ESS PPM</td><td>Routine</td><td>08/07/2020 3:37 PM EST</td><td> Permanent atrial fibrillation</td><td> </td> 08/07/2020 08:37:07 PM EST Permanent atrial fibrillation [facility] Permanent atrial fibrillation BLOOD COUNT COMPLETE AUTOMATED <td>CBC</td><td>Routine </td><td>08/07/2020 7:37 AM EST</td><td></td><td> </td> 08/07/2020 12:37:00 PM EST [facility] BASIC METABOLIC PANEL CALCIUM TOTAL <td>BASIC METABOLI C PANEL</td><td>Routine</td><td>08/07/2020 7:37 AM EST</td><td></td><td> </td> 08/07/2020 12:37:00 PM EST [facility] XR CHEST PORTABLE <td>XR CHEST PORTABLE</td><t d>Routine</td><td>08/06/2020 3:10 PM EST</td><td></td><td> </td> 08/06/2020 08:10:22 PM EST [facility] BLOOD COUNT COMPLETE AUTOMATED <td>CBC</td><td>Routine </td><td>08/06/2020 11:53 AM EST</td><td></td><td> </td> 08/06/2020 04:53:00 PM EST [facility] BASIC METABOLIC PANEL CALCIUM TOTAL <td>BASIC METABOLI C PANEL</td><td>Routine</td><td>08/06/2020 11:53 AM EST</td><td></td><td> </td> 08/06/2020 04:53:00 PM EST [facility] ECG ROUTINE ECG W/LEAST 12 LDS TRCG ONLY W/O I&R <td>E CG 12- LEAD</td><td>Routine</td><td>08/06/2020 11:44 AM EST</td><td></td><td></td> 08/06/2020 04:44:13 PM EST [facility] COVID/FLU AB/RSV PCR <td>COVID/FLU AB/RSV PCR</td ><td>STAT</td><td>08/06/2020 11:35 AM EST</td><td></td><td> </td> 08/06/2020 04:35:00 PM EST [facility] FINE NEEDLE ASPIRATION W/O IMAGING GUIDANCE 07/24/2020 12:00:00 AM EST eCW1 ([facility]) XTRNL ECG < 48 HR RECORD SCAN STOR W/PHY R&I 12:00:00 AM EST [facility] (Neymar Hilario MD) FINE NEEDLE ASPIRATION W/O IMAGING GUIDANCE 07/17/2020 12:00:00 AM EST eCW1 ([facility]) ECG ROUTINE ECG W/LEAST 12 LDS W/I&R 07/14/2020 12:00: 00 AM EST [place] (Neymar Hilario MD) ECHO TTHRC R-T 2D W/WOM-MODE COMPL SPEC&COLR DOP 07/14 12:00:00 AM EST [facility] (Neymar Hilario MD) FINE NEEDLE ASPIRATION W/O IMAGING GUIDANCE 07/10/2020 12:00:00 AM EST eCW1 ([facility]) Medication: Aquaphor healing ointment topical 07/10/19 12:00:00 AM EST eCW1 ([facility]) Medication: 2% Lidocaine intradermal 07/10/2020 12:00: 00 AM EST eCW1 ([facility]) ELECTROCARDIOGRAM, COMPLETE (EKG) ELECTROCARDIOGRAM, COMPLET E (EKG) 03/30/2020 12:00:00 AM EST [place] ([facility]) ELECTROCARDIOGRAM, COMPLETE (EKG) ELECTROCARDIOGRAM, COMPLET E (EKG) 03/30/2020 12:00:00 AM EST [place] ([facility]) Results ID Date Data Source [id number] 03/01/2021 12:00:00 AM EDT [facility] Name Value Range Interpretation Code Description Data Chela rce(s) Supporting Document(s) SARS coronavirus 2 Ag NEGATIVE [facility] This lab was ordered by [facility] and reported by [facility]. ID Date Data Source [id number] 02/24/2021 12:44:00 PM EDT [facility] ([facility]) Name Value Range Interpretation Code Description Data Chela rce(s) Supporting Document(s) Calcium [Mass/volume] in Serum or Plasma 8.8 [facility] ([facility]) Sodium 140 [facility] Carbon dioxide, total [Moles/volume] in Serum or Plasma 28 [facility] ([facility]) Chloride [Moles/volume] in Serum or Plasma 105 [facility] ([facility]) Potassium [Moles/volume] in Serum or Plasma 3.7 [facility] ([facility]) Blood Urea Nitrogen 33 7-18 [facility] ([facility]) Glucose 101 83-110 [facility] ([facility]) Creatinine 2.09 0.6-1.0 [facility] ([facility]) Glomerular filtration rate/1.73 sq M.pre dicted [Volume Rate/Area] in Serum or Plasma by Creatinine-based formula (MDRD) 33.6 [facility] ([facility]) ID Date Data Source [id number] 02/24/2021 12:00:00 AM EDT [facility] Name Value Range Interpretation Code Description Data Chela rce(s) Supporting Document(s) SARS coronavirus 2 Ag NEGATIVE [facility] This lab was ordered by [facility] and reported by [facility]. ID Date Data Source [id number] 02/10/2021 03:00:00 PM EDT [facility] Name Value Range Interpretation Code Description Data Chela rce(s) Supporting Document(s) SARS coronavirus 2 Ag [facility] This lab was ordered by [facility] and reported by [facility]. ID Date Data Source [id number] 02/03/2021 12:00:00 AM EDT [facility] Name Value Range Interpretation Code Description Data Chela rce(s) Supporting Document(s) SARS coronavirus 2 Ag NEGATIVE [facility] and reported by [facility]. ID Date Data Source [id number] 01/21/2021 12:46:00 PM EDT [facility] ([facility]) Name Value Range Interpretation Code Description Data Chela rce(s) Supporting Document(s) Natriuretic peptide.B prohormone N-Terminal [Mass/volu me] in Serum or Plasma 786 [facility] ([facility]) ID Date Data Source [id number] 01/21/2021 12:46:00 PM EDT [facility] ([facility]) Name Value Range Interpretation Code Description Data Chela rce(s) Supporting Document(s) Calcium [Mass/volume] in Serum or Plasma 8.7 [facility] ([facility]) Sodium 139 [facility] ([facility]) Carbon dioxide, total [Moles/volume] in Serum or Plasma 29 [facility] ([facility]) Chloride [Moles/volume] in Serum or Plasma 105 [facility] ([facility]) Potassium [Moles/volume] in Serum or Plasma 4.1 [facility] ([facility]) Glucose 82 83-110 [facility] ([facility]) Blood Urea Nitrogen 34 7-18 [facility] ([facility]) Glomerular filtration rate/1.73 sq M.pre dicted [Volume Rate/Area] in Serum or Plasma by Creatinine-based formula (MDRD) 35.1 [facility] ([facility]) Creatinine 2.01 0.6-1.0 [facility] ([facility]) ID Date Data Source [id number] 01/18/2021 02:37:00 PM EDT [facility] ([facility]) Name Value Range Interpretation Code Description Data Chela rce(s) Supporting Document(s) Calcium [Mass/volume] in Serum or Plasma 8.7 [facility] ([facility]) Carbon dioxide, total [Moles/volume] in Serum or Plasma 26 [facility] ([facility]) Sodium 140 [facility] ([facility]) Glucose 111 83-110 [facility] ([facility]) Chloride [Moles/volume] in Serum or Plasma 107 [facility] ([facility]) Potassium [Moles/volume] in Serum or Plasma 3.9 [facility] ([facility]) Creatinine 1.89 0.6-1.0 [facility] ([facility]) Blood Urea Nitrogen 31 7-18 [facility] ([facility]) Glomerular filtration rate/1.73 sq M.pre dicted [Volume Rate/Area] in Serum or Plasma by Creatinine-based formula (MDRD) 37.7 [facility] ([facility]) ID Date Data Source [id number] 01/18/2021 02:37:00 PM EDT [facility] ([facility]) Name Value Range Interpretation Code Description Data Chela rce(s) Supporting Document(s) White Blood Count 4.6 5.0-10.0 [facility] ([facility]) Red Blood Count 3.70 4.00-5.40 [facility] ([facility]) Platelets 158 172-450 [facility] ([facility]) Hemoglobin 11.9 [facility] ([facility]) Hematocrit 36.2 [facility] ([facility]) ID Date Data Source [id number] 01/18/2021 12:46:00 PM EDT [facility] ([facility]) Name Value Range Interpretation Code Description Data Chela rce(s) Supporting Document(s) Natriuretic peptide.B prohormone N-Terminal [Mass/volu me] in Serum or Plasma 783 [facility] ([facility]) ID Date Data Source [id number] 10/29/2020 12:00:00 AM EDT [facility] Name Value Range Interpretation Code Description Data Chela rce(s) Supporting Document(s) SARS coronavirus 2 Ag NEGATIVE [facility] This lab was ordered by [facility] and reported by [facility]. ID Date Data Source [id number] 10/15/2020 12:00:00 AM EDT [facility] Name Value Range Interpretation Code Description Data Chela rce(s) Supporting Document(s) SARS coronavirus 2 Ag NEGATIVE [facility] This lab was ordered by [facility] and reported by [facility]. ID Date Data Source [id number] 10/12/2020 12:00:00 AM EDT [facility] Name Value Range Interpretation Code Description Data Chela rce(s) Supporting Document(s) SARS coronavirus 2 Ag NEGATIVE [facility] This lab was ordered by [facility] and reported by [facility]. ID Date Data Source [id number] 10/07/2020 12:00:00 AM EDT [facility] Name Value Range Interpretation Code Description Data Chela rce(s) Supporting Document(s) SARS coronavirus 2 Ag NEGATIVE [facility] This lab [facility] and reported by [facility]. ID Date Data Source [id number] 10/06/2020 04:43:00 PM EDT [facility] ([facility]) Name Value Range Interpretation Code Description Data Chela rce(s) Supporting Document(s) Platelets 204 150-450 [facility] ([facility]) White Blood Count 6.0 4.0-10.0 [facility] ([facility]) Red Blood Count 3.99 4.30-6.10 [facility] ([facility]) Hemoglobin 12.5 [facility] ([facility]) Hematocrit 39.1 [facility] ([facility]) ID Date Data Source [id number] 10/06/2020 04:43:00 PM EDT [facility] ([facility]) Name Value Range Interpretation Code Description Data Chela rce(s) Supporting Document(s) Magnesium Level 2.3 1.8-2.4 [facility] ([facility]) ID Date Data Source [id number] 10/06/2020 04:43:00 PM EDT [facility] ([facility]) Name Value Range Interpretation Code Description Data Chela rce(s) Supporting Document(s) Blood Urea Nitrogen 25 7-18 [facility] ([facility]) Glucose 121 70-100 [facility] Potassium 4.2 3.5-5.1 [facility] Creatinine 1.50 0.70-1.30 [facility] ([facility]) Sodium 139 136-145 [facility] Carbon Dioxide 29 21-32 [facility] ([facility]) Chloride 106 98-107 [facility] ([facility] Calcium 9.0 8.2-9.6 [facility] ([facility]) Glomerular filtration rate/1.73 sq M.pre dicted [Volume Rate/Area] in Serum or Plasma by Creatinine-based formula (MDRD) 49.3 [facility] ([facility]) ID Date Data Source [id number] 10/05/2020 12:00:00 AM EDT [facility] Name Value Range Interpretation Code Description Data Chela rce(s) Supporting Document(s) SARS coronavirus 2 Ag NEGATIVE [facility] This lab was ordered by [facility] and reported by [facility]. ID Date Data Source [id number] 09/29/2020 08:22:00 AM EDT [facility] Name Value Range Interpretation Code Description Data Chela rce(s) Supporting Document(s) SARS coronavirus 2 RNA [Presence] in Res piratory specimen by DORA with probe detection NEGATIVE [facility] This lab was ordered by [facility] a nd reported by [facility]. ID Date Data Source [id number] 09/23/2020 06:12:00 PM EDT [facility] Name Value Range Interpretation Code Description Data Chela rce(s) Supporting Document(s) SARS coronavirus 2 RNA [Presence] in Res piratory specimen by DORA with probe detection NEGATIVE [facility] This lab was ordered by [facility] a nd reported by [facility]. ID Date Data Source [id number] 09/12/2020 04:29:00 PM EDT [facility] ([facility]) Name Value Range Interpretation Code Description Data Chela rce(s) Supporting Document(s) Hemoglobin A1c/Hemoglobin.total in Blood 5.8 [facility] ([facility]) ID Date Data Source [id number] 09/12/2020 04:29:00 PM EDT [facility] ([facility]) Name Value Range Interpretation Code Description Data Chela rce(s) Supporting Document(s) Triglycerides 86 [facility] ([facility]) Cholesterol 124 [facility] ([facility]) Cholesterol in LDL [Mass/volume] in Serum or Plasma by calculation 65 [facility] ([facility]) Chol/HDL Ratio 3.0 [facility] ([facility]) HDL 42 [facility] ID Date Data Source [id number] 08/21/2020 07:30:00 AM EDT [facility] Name Value Range Interpretation Code Description Data Chela rce(s) Supporting Document(s) Levetiracetam [Mass/volume] in Serum or Plasma <1.0 ug/mL 10.0-40.0 L [facility] This test was developed and its performa nce characteristicsdetermined by [facility]. It has not been cleared or approvedby the Food and Drug Administration. ID Date Data Source [id number] 08/16/2020 06:24:00 AM EDT [facility] Name Value Range Interpretation Code Description Data Chela rce(s) Supporting Document(s) Triiodothyronine (T3) Free [Mass/volume] in Serum or Plasma 2.3 pg/ mL 2.0-4.4 [facility] ID Date Data Source [id number] 08/13/2020 03:43:00 PM EDT [facility] Name Value Range Interpretation Code Description Data Chela rce(s) Supporting Document(s) CVE PANEL [facility] LIPID PANEL Cholesterol [Mass/volume] in Serum or Plasma 149 MG/DL 131 - 200 [facility] Deprecated Triglyceride [Mass/volume] in Serum or Plasma 157 MG/DL 3 5 - 160 [facility] HDL 45 MG/DL 29 - [facility] Ch[facility] in LDL [Mass/volume] in Serum or Plasma by Direc t assay 94 mg/dL 65 - 175 [facility] Cholesterol.total/Cholesterol in HDL [Mass Ratio] in Serum o r Plasma 3.3 3.4 - 4.9 L [facility] LDL/HDL 2.09 1.00 - 3.55 [facility] CVE RISK CHOL/HDL LDL/HDLMEN: 1/2 AVERAGE 3.43 1.00 AVERAGE 4.97 3.55 2X AVERAGE 9.55 6.25 3X AVERAGE 23.99 7.99WOMEN: 1/2 AVERAGE 3.27 1.47 AVERAGE 4.44 3.22 2X AVERAGE 7.05 5.03 3X AVERAGE 11.04 6.14 ID Date Data Source [id number] 08/13/2020 03:42:00 PM EDT [facility] Name Value Range Interpretation Code Description Data Chela rce(s) Supporting Document(s) Creatine kinase [Enzymatic activity/volume] in Serum or Plasma 9 7 U/L 30 - 170 [facility] ID Date Data Source [id number] 08/13/2020 03:38:00 PM EDT [facility] Value Range Interpretation Code Description Data Chela rce(s) Supporting Document(s) BNP 933 PG/ML 0 - 125 [facility] ID Date Data Source [id number] 08/13/2020 03:38:00 PM EDT [facility] Name Value Range Interpretation Code Description Data Chela rce(s) Supporting Document(s) Prostate specific Ag [Mass/volume] in Serum or Plasma 0.90 ng/mL 0.00 - 4.00 [facility] \\BLDo\\PSA INTERPRETA TION\\BLDx\\ The PSA assay should [...] be used interchangeably. ID Date Data Source [id number] 08/13/2020 03:38:00 PM T [facility] Name Value Range Interpretation Code Description Data Chela rce(s) Supporting Document(s) Thyroxine (T4) free index in Serum or Plasma by calculation 1.01 NG/DL 0.93 - 1.70 [facility] ID Date Data Source [id number] 08/13/2020 03:38:00 PM EDT [facility] Name Value Range Interpretation Code Description Data Chela rce(s) Supporting Document(s) Thyrotropin [Units/volume] in Serum or Plasma by Detec tion limit <= 0.05 mIU/L 0.71 uIU/mL 0.47 - 5.01 [facility] ID Date Data Source [id number] 08/13/2020 03:01:00 PM EDT [facility] Name Value Range Interpretation Code Description Data Chela rce(s) Supporting Document(s) CBC NO DIFF [facility] COMPLETE BLOOD COUNT Leukocytes [#/volume] in Blood by Automated count 6.3 10^3/uL 4.2 - 1 1.0 [facility] Erythrocytes [#/volume] in Blood by Automated count 4.10 10^6/uL 4. 50 - 6.30 L [facility] Hemoglobin [Mass/volume] in Blood 13.1 g/dL 14.0 - 16.0 L [facility] Hematocrit [Volume Fraction] of Blood by Automated count 40.0 % 4 1.0 - 51.0 L [facility] Erythrocyte mean corpuscular volume [Entitic volume] by Auto mated count 97.6 fL 80.0 - 94.0 H [facility] Erythrocyte mean corpuscular hemoglobin [Entitic mass] by Automated count 32.0 pg 27.0 - 34.0 [facility] Erythrocyte mean corpuscular hemoglobin concentration [Mass/volume] by Automated count 32.8 g/dL 31.0 - 36.0 [facility] Erythrocyte distribution width [Ratio] by Automated count 14.2 % 11.5 - 14.8 [facility] Platelets [#/volume] in Blood by Automated count 176 10^3/uL 150 - 45 0 [facility] Platelet mean volume [Entitic volume] in Blood by Automated count 11.1 fL 7.4 - 10.4 H [facility] ID Date Data Source [id number] 08/13/2020 02:52:00 PM EDT [facility] Value Range Interpretation Code Description Data Chela rce(s) Supporting Document(s) Prothrombin time (PT) 24.8 SECONDS 11.0 - 15.5 H [facility] INR in Platelet poor plasma by Coagulation assay 2.12 0.93 - 1. 23 H [facility] aPTT in Blood by Coagulation assay 49.3 SECONDS 24.8 - 36.7 H [facility] \\BLDo\\INR INTERPRETATION\\BLDx\\ Therapeutic range for Coumadin and related oral 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s. - International Normalized Ratio (INR): 2.0 - 3.0 for Venous Thrombosis, Pulmonary Embolus, Tissue heart valves, Acute NC Atrial Fibrillation, Valvular heart disease and recurrent Systemic Embolism. - International Normalized Ratio (INR): 2.5 - 3.5 for Mechanical Prosthetic valve. ID Date Data Source [id number] 08/10/2020 11:10:25 AM EDT [facility]FORMATIONPatient MRN Name Date of Age Gend*PT [id number] Roberto Gil 1950 70 years M IPPT Location Admission Date/Time Visit ID Attending [id number] 08/06/20 1114 --- --- EPI ID CSN Admitting Provider [id number] Juaquin Sylvester MD([id number]) Attestation signed by Juaquin Sylvester MD at 08/10/2020 11:10 AMATTENDING ADDENDUM:I saw and examined Mr. 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 Contrast [...] that the patient was recently [place] for[place]estive heart failure. He was seen in [...] for strictmedications and follow up compliance. Beckie kolb will be follow up with Dr. Michelle [...] rce(s) Supporting Document(s) ID Date Data Source [id number] 08/08/2020 04:20:00 PM EST [facility] ([facility]) Name Value Range Interpretation Code Description Data Chela rce(s) Supporting Document(s) White Blood Count 4.5 [facility] ([facility]) Red Blood Count 3.79 [facility] ([facility]) Platelets 100 [facility] ([facility] [place]) Hemoglobin 12.2 [facility] ([facility]) Hematocrit 36.6 [facility] ([facility]) ID Date Data Source [id number] 08/08/2020 07:31:55 AM EST [facility] Name Value Range Interpretation Code Description Data Chela rce(s) Supporting Document(s) WBC 4.5 10*3/uL (4.1-11.0) [facility] [place] RBC 3.79 10*6/uL (4.60-6.10) L [facility] HGB 12.2 g/dL (13.5-18.0) L [facility] HCT 36.6 % (41.0-53.0) L [facility] MCV 96.6 fL (80.0-95.0) H [facility] MCH 32.2 pg (27.0-32.0) H [facility] MCHC 33.4 g/dL (32.0-36.0) [facility] RDW 15.0 % (10.5-14.5) H [facility] PLT 100 10*3/uL (150-450) L [facility] MPV 9.8 fL (7.1-10.7) [facility] ID Date Data Source [id number] 08/07/2020 05:11:26 PM EST [address] [id number] Name: ROBERTO Arnett LOUISEDOB: 1950Sex: MOrdering Provider: Juaquin Flores Prov: Juaquin Cannon Provider: Procedure Performed: XR CHEST PORTABLEExam Date: 08/07/2020 16:57MRN: [id number] Number: [id number] Class: InpatientAccount #: [id number] for Exam: ppmTechnique: AP portable view obtained.Comparison: [...] TAYLOR BUSTOS On 08/07/2020 5:11 PMWorkstation ID: [id number] Name Value Range Interpretation Code Description Data Chela rce(s) Supporting Document(s) ID Date Data Source [id number] 08/07/2020 04:22:00 PM EST [facility] ([facility]) Name Value Range Interpretation Code Description Data Chela rce(s) Supporting Document(s) Albumin [Mass/volume] in Serum or Plasma 3.7 [facility] ([facility]) Alanine aminotransferase [Enzymatic activity/volume] in Serum or Pl asma 15 [facility] ([facility]) Calcium [Mass/volume] in Serum or Plasma 8.6 [facility] ([facility]) Carbon dioxide, total [Moles/volume] in Serum or Plasma 24 [facility] ([facility]) Chloride [Moles/volume] in Serum or Plasma 110 [facility] ([facility]) Potassium [Moles/volume] in Serum or Plasma 4.0 [facility] ([facility]) Alkaline phosphatase [Enzymatic activity/volume] in Serum or Plasma 7 5 [facility] ([facility]) Protein [Mass/volume] in Serum or Plasma Laboratory test result [facility] ([facility]) Aspartate aminotransferase [Enzymatic activity/volume] in Serum or Plasma 14 [facility] ([facility]) Sodium 142 [facility] ([facility]) Glucose 95 [facility] ([facility]) Creatinine For GFR 1.20 [facility] ([facility]) Urea nitrogen [Mass/volume] in Serum or Plasma 18 [facility] ([facility]) ID Date Data Source [id number] 08/07/2020 03:48:35 PM EST [facility] Name Value Range Interpretation Code Description Data Chela rce(s) Supporting Document(s) &PDF [facility] WWWIJi5rLbMVDsZx20/CQYlbMDMtl9KvFYjfQEk9FLweHRUdI0GdhMfsAX3UE3DUKSDZQNZFL30YOtYN 0b3 [file] IJ0NxFWvVAUfANGjeSZdFAr7W62qaELtDScxJO9SYFY+Neelam+Ld2HJKEjKSCwTRQqNgCpMASTEvAvT4Ej J3LMi7GaN3VpWQ90iZpdylQiVVicRX7HNO4wGBZyAJYAIK1FoXTrcS7tkuA5BOAsTKDFXyFtM54vnCAr AYTkUPO2TZAhBa0FPUGuZ2GncnThgUignsOvTDDwMD CHBH8LPZffzzZzeCAixMzgOU32fAwlRQ8NEc3JZrFaZX7sxb6AlBBxEl9HSOP4SK8ANWDnVFTlRUStGP E9GFVmGrPlLJfcCSGgDTIzEMT8RYGiIJOvBD2YRqZwISJkAPotEmuzKNNxUPLjeb3EJBYrIHY3WUveWD WsNWEfHJPhTOxgEYMyITBwRYz9PUAwUYHiTW3FUoMj YURbLTD8QKlyZYXqSTMasf4PUMOiTAK4SIQ2NdBsPJHnIKLbNXapHHStJYI1MvHnRMRbJDWiSD9ATySr EFOoCQg2AzXsBPXpDMGgfc7DOPGxIBO0KQY2NPAeVERhOARoHTkbZPIoQFA8ZlM7VAIjETTrRR9PVuKo SVWmARo4DiUnCXWdDEDkvw9NJJRtMTM3YSW9GMTaHU IuNTLiUEadALCwOBKnAjI6MENxGYRhLJ1ASvOyYTVbEWO8GaDfIUWjKZXzym2LZVXsODV0NWFhCvKaBR LdWGMeILhpLCFfOFGqJxP0ADNpMMIaQS4QFrCcJBWcZQP3YaLcQWOcUIFxul1MRGAtNVU6EEEsIvOvMS BdLTDvHVoqUHHxCIPdWfvmGYVnRFHkVB3CKiSrNEMk JVJfBpOhQOUnALNdqg1KBXIiNELoAld9TBKoPSBfDHNrXRrlJNPtFXR8OUz3KMKtARLtEQ0IEmUmEMDu RLgqKOAvPNTuRBOqft2VCUSmDQBhWMI4VROoMWBfVRAcWWwhZFRlUGRjNgEbCSCySPUmRI9LKxUtNRVt MBP0CVefKURdSYXiht1EQPUbRWKrNIT0GUOzOYSpQC CtOFfoFEPwQJScOsR0HWMjKEFgJS1FXwOlUZUwNYG6XLOfJAJbPEOrah4BEGGqLLAjReErFXUwDRJpVV DyQWbgZIHuMMDnGzG1MKQtHIVxKG0FWoCnIHWoGvEiNDrwPVArNNAmxn9ZXAElUXBqSXQxVPAmMFQeKK IfBGjuSEGmHIH9DUM9XITrHJLuVR0DQzPpWKWcAiD6 VuRzUEHwTMUsmq7WKCSjDMShEEtyEpGeCOJgSUUfIXncXKIyEGQ0ZVWpJZOeVQUjEZ0OQzSmGBBxSuAa DncuHJJcGFUrng1RBSPyTRKnZdHaAiVaONZxHUDiTAqeCROpGFB7VKA8RZBuVPVrIB4STzRkVXYeGwk3 JwIeCSQoTFSjkc1IQDOjQOB5MiZ8YGAbQHRpBZMsME jhDCWrVZG3CTC5WFHwBVJeBE2HPhTiGQHbECg9YjRbVOQbVZShty7KZHSlDRQ4RRmjGgTdAHGuTKFeHV swRMPcHIR7LXezNQUnPBCrKW1RPlNaSZAyCOT7EWWaUIIyQXHcjb9WxPYzfFsuvm5DQYuQYs7UoTxnWC D6RLtlBc2exHN1IyNaBBVXWm4QtsImTHNpWHDIWUiy KSZyBMIgTQE0WvL5PvCbXOE6YjWsUSv3KfVrKSK5FAMbNDJ0BqY9TkRwNrHzZichLCQ9DKXbUqL3WMiz LNH9CRDrLTO9XYB+IM6uFIe+Tm3Xj3NhqvJ2deAvJWp2DPZ5AO3DUKENO5FVSn== ID Date Data Source [id number] 08/07/2020 08:04:56 AM EST [facility] NT INFORMATIONPatient MRN Name Date of Age Gend*PT [id number] Roberto Gil Erika 1950 70 years M IPPT Location Admission Date/Time Visit ID Attending [id number] 08/06/20 1114 --- Juaquin Sylvester MD([id number]) EPI ID CSN Admitting Provider [id number] Juaquin Sylvester MD([id number]) Attestation signed by Juaquin Sylvester MD at [...] the plan as noted above.Indra Sylvester M.D., [facility]ENTERClinical Cardiac Electrophysiology08/07/2020 6:51 AM --ADMISSION HISTORY AND PHYSICALName: Roberto Gil Gender: maleDate of : 1950 Age: 70 yearsDate/Time of Admit: 08/06/2020 11:14 AM Code Status: PriorPrimary Care Provider / Referring Physician: PORTILLO RAMANnformant:Current HistoryChief Complaint: Tachy-anabel syndromeHPI:This patient is a [...] that the patient was recently [place] for[place]estive heart failure. He was seen in [...] file Gets together: Not on file Attends zoroastrian service: Not on file Active member of [...] Depakote [Divalproex Sodium] Other (See Comments) Unknown Reaction(senior living record) Paxil [Paroxetine Hcl] Other (See Comments) Unknown Reaction(senior living record) Simvastatin Other (See Comments) Unknown Reaction(senior living record) Wellbutrin [Bupropion] Other (See Comments) Unknown Reaction(senior living record)Scheduled Meds:Continuous Infusions:PRN Meds:.PhysicalBlood Pressure: BP: 115/77 [...] or lumps.DiagnosticsLabResults from last 7 daysLab Units [id number] mg/dL 1.12Results from last 7 daysLab Units 3WBC 10*3/uL 4.5HEMOGLOBIN g/dL 12.8*HEMATOCRIT % 37.7*PLATELETS 10*3/uL [...] medications,per the CM. He is followed by [facility] and his patient case manager info islisted in Sticky Note.7. Full CodeMed rec pending - awaiting med list from PCP office as well.Patient follows with Dr Hilario.Signature: LUISA SKY NPDate: August 06, 2020Time: 12:37 PM Name Value Range Interpretation Code Description Data Chela rce(s) Supporting Document(s) ID Date Data Source [id number] 08/07/2020 09:23:20 AM EST [facility] Name Value Range Interpretation Code Description Data Chela e(s) Supporting Document(s) SODIUM 142 mmol/L (136-145) [facility] POTASSIUM 4.0 mmol/L (3.6-5.2) [facility] CHLORIDE 110 mmol/L (100-108) H [facility] CO2 24 mmol/L (22-31) [facility] ANION GAP 8 mmol/L (7-16) [facility] UREA NITROGEN 18 mg/dL (7-24) [facility] CREATININE 1.20 mg/dL (0.80-1.30) [facility] BUN/CREAT RATIO 15.0 RATIO (10.0-20.0) [facility] GLUCOSE 95 mg/dL (70-99) [facility] CALCIUM 8.6 mg/dL (8.4-10.2) [facility] GFR 60 ml/min/1.73m2 (>59) [facility] GFR ( AMER) >60 ml/min/1.73m2 (>59) [facility] GFR INTERPRETATION [facility] --NORMAL KIDNEY FUNCTION OR MILD DISEASE - GFR >OR= 60CHRONIC KIDNEY DISEASE - GFR 15 - 59RENAL FAILURE - GFR <15 Est. GFR calculation based on the MDRDstudy equation, which assumes a steadystate for creatinine. Est. GFR should notbe used for medication dosing. ID Date Data Source [id number] 08/07/2020 08:47:57 AM EST [facility] Name Value Range Interpretation Code Description Data [facility](s) Supporting Document(s) WBC 4.7 10*3/uL (4.1-11.0) [facility] [place] RBC 3.86 10*6/uL (4.60-6.10) L [facility] HGB 12.4 g/dL (13.5-18.0) L [facility] HCT 36.8 % (41.0-53.0) L [facility] MCV 95.5 fL (80.0-95.0) H [facility] MCH 32.2 pg (27.0-32.0) H [facility] MCHC 33.7 g/dL (32.0-36.0) [facility] RDW 15.3 % (10.5-14.5) H [facility] PLT 106 10*3/uL (150-450) L [facility] MPV 9.9 fL (7.1-10.7) [facility] ID Date Data Source [id number] 08/06/2020 03:14:[address] [address] Name: ROBERTO GILDOB: 1950Sex: MOrdering Provider: LUISA SKYAuthoripurnima Prov: LUISA Fallon Provider: Procedure Performed: XR CHEST PORTABLEExam Date: 08/06/2020 15:10MRN: [id number] Number: [id number] Class: InpatientAccount #: [id number] for Exam: dyspneaTechnique: AP portable view obtained.Comparison: [...] LAZARUS BASURTO On 08/06/2020 3:14 PMWorkstation ID: [id number] Name Value Range Interpretation Code Description Data Chela rce(s) Supporting Document(s) ID Date Data Source [id number] 08/06/2020 12:51:46 PM EST [facility] Name Value Range Interpretation Code Description Data Chela rce(s) Supporting Document(s) EKG [facility] YKHAVn1wDbEEXlYud1LrAnRvWYSxNA8dgnr2Q3D8zUPoU4QonDIlk1pcW9GtP3VwNDCwUIQFIH4KgMCx jb2 [file] 7ZReMknhWorHvwxu9ljFNeepeBw5ctgbvc5bFk+Reel Man [file] /aGM+9L3F9A6guTxQH2Px5T16I78n03L32Rs8B/oB/ QT+zv8uo7An2Brwo2t4yWi/Xn2icu+HgM77ReMsQOcB6/ngUgev0OtkJYENnwWkmsJ6W49U+EgVYZ+Qj +qT7Et4Ayte4g44ub3zH/l0su+dvwPNL4H3yH7E5Tx2LrK089SEbUX+iB5h47CQ8Lw3Z7ho+piGVj019 ryrJmYS3grka+1ArJyTM54+h9Bn13h2RRV1KDtTyuQ R0c4f285Pts19O/YV/uiU5gw1V2pW2Cq9LgX+uyCUGk9VUK9nxvddH8aK/NzBHdUueoJ++aRjso646Ts o81Nks56Kkj68L83Ke2EEf8x3EhertZhC16xRnwgt0tS5Qn+bxn6A/7zrivTeaz9PB/Tl4h7zKjN00CB DnwaP3O+2ya4JgdT0uaBxTn9CK7STet05qWFrvWVz5 MlKdqbSz/K2yI3i8sd8RMBrTJaJGK6i7laOwtCfzm9mOgLMQDqKh3+kC57oQGL1bU7+rL+tXfuLP/0Wq kI+7mfeUKhk5jwE+dhxvo33Lqt6abyp8um/NPn5/WvvVPjP+dyph0dsaSW++rObeg20IuvLn2bUXyVbl ve2Gl6G/vqHh/tzXKHvkM/oB+rS7d5XmeIEtS1h747 Gdt77XB/v/YOjf+gb1732UStiBF9Sn7L58FpbM/y3sK+yn4I+yrvP+yrq+44ajerZ2/3ty397Z3K++qV mw22oxw/EvbVvYdT/Zl33jDbfPF/hv85zoUQ0kwvdLXl6qZrW+gx7DRpk0dxjmWjbb6qrS/JoZALm0IZ sK+Hqkbsu1chn7Fn7rVw/+p0Iemx2wpa51H+mlrhkn 9W3WLTP8N7mErq/O7gLmvaOBXA+k4tZZCmFTW8/PPLUBDlv/nYTjSNw4iQ6qXHD56fyDx/6b8j/UA946 dvKs+m5pQ6xQ/GuIqwivxGjqiK/MZsWr/aus+bX0oyg3bTeDr0TOZoks2QdJyvTuDqPttSGTUr/xjBFP l/RSzFX5+3KP/+6173jl5Yu462/b8t/avLw2Q9JF05 vy3m+YiisJZ1/v7f/mX5V0/ew6+9lQO3r7sia80NpJz4nZiENZ1R4A9+5uQInshxErETfx/ftS1sL6o3 YzRPsp6TtWq4KtDqzh0LeSidppNa4miZGeE8ihVqou3qqB3OJhFFQgTr0g5JVLF5rki5xKpUU2/vweZl EafMU4O6d/+nLgc3o2fEuR75eU2bfIw9JkzirI3PcZ 7j47t05doc/43nT//Qo3498OyPfk/s8IA3311kGH0nnnWBGipkzS9VTt/QH5V/+niXRWBElaE/0J/Qx7 k/+0fA9QfRi//oZ1/63kSLWQ4w9pKIotiB91/4/qIxqih5qkQJ/OyrX+5bqG77kyni5AluP0+v81Yrzb tw3UW2Bl6xYN2Vp4R/pf/EJ2VD2ux+egtXD6RXnT/t CO1NEaZYqfy0OhvUfJo+1gdNB4A3Os/tMShuKw4zbVgipmqJ/YZ+Q3+mJ6Ed43sp8GQiFm6r8by4mPG2 gkr5Zfreo9v6bbT5Eo5SUzxw94t35lTm7D9OPuVQ9V/K0B/oT+bK29XRfNCn6Pm77I1v/b/kQ761fZl/ 1+qop1d/dbEsPdC4Lm8exoQaS1sFjoA9/aEM/YH+lH 5/C8iLN7X/j88L8NnsHUPy2t05W7a5hA/63oZ8P9hV5ERH/4R+Qb+y22AGlfEf3shvATd+fB/U6IQ6a5 qfj+P4aK/u+eR1f6Vutf/Za11W6V3p64J7U7y59M7iDu+u/aoFSk6hZvC2ytLyARSlRxfpi5y9YfPsgo T26Nih9krkJj+gH+8+IhEywgDj4Ouu8gqrZ75pW1/2 osyFCGQn9aKAw4uB/tde9yz/9K5j/EP5p4/0aNQrMIi3Jr6WzdQ+qPzTd+l/7K2m7UbjettzhlHlT/Ag FoSi/NNP6X/k2GdtN4YXX2r+V/Io5p7QC+3xJg9f6/0bAQe/QTeFY2SyjRhZ/NrbPul/4P7y5xoPu7/U bJR/7W0u/a+9zaX/tbc16X/zzV109xWY/YZ+Q/9rb+ fr33yfl2rry/cdy53VzEuAQczds4ofyp10V/7qh9k8H5q5rI/23jL0A/oia034Iw+HdxH8vV+USug4u1 NWCjFtJY14U37J8IelOV7Wj2JBf/GIxM65ik56Ka4OVjrfKlabB74OCBYQP5oqkmKCAervg5rykwYglh m/Q5RsO0Il8xy38cjGW/EUiANa3U/a2/J6q642a46u M+wthVDWI4jy7tOiLIcBKJpud2xsBHcy/rrroenQv5O+dP9en6y+6VvUE/DJ17eV3jRtU/QZkdF7f23i p0PfoR+hN6WrFT44G/XZ8Oxm85DRQ5s4xh/DV3wx1MU5pS44jzOv8Xp4A+/Kp0go0Nf2YT9DZPv28P8D HD9w/IR+Oj2Tm0R6P/por+bqsK+75lijv5Lq9bTzQd /tjW+x8Px/ZYfeoW/QN+x64T24Gh7LpoQ/oV/QL+u23HXvdrbS7skzA/ZVlsO+yjLAyihaa99ex+gd+g Z9Q/4C9tuJTU/+I1dIjEE4trrPoVSI6G2844P+WxnkyJ57QscFhZWeoWtqXJ3+09hQoSC27lUQde/L4d JcQbdZxoGalAim88syrDK/pricilla+Qz+qY6GP2Or0F/oF /YZ+Q39e/4QHf/ZbOPBX+cFlcYV63snIN+yV/F5OwMQCWfie22BeTp+rtKmPZK2x5WYsb4kgjH3t+zS8 4g06jdew+Oy/8nrvx/DYz/h4KTSgNQd//x6p2EseBOM/8EsFJEy325xP+Or/qTjhMZxC1glGD65/irrigation flume layer+ 2tu+TOwesI0rpU52oOu+AqLw2qgz/LV3u47/tXcdHf Nrr/ZZwkPftZYVDvp/tpTO/dHYj6Urdm8zMoem/Hf/8f+qH8K+7togoBvxYIE84R8w+halxXB3JjjT+0 v5Lrhpb79uBnbvP6hSijcv8WHf655giP/jgeKGj6kj9Q+q5iaxey/fxeGNn9+p0Cci7cYni7+0hixhi4 1kxahsDVqg1v14ptraiBLOwud72F013ZsFdcQ3nHFh LR0e+GlLhwN+0gGS7lR+A3uBVRhO9Bxvf+quxTwZI6F/ddw17k1wlW768II0WQYj4Aps7e7iou9/o2/o st9qrn62aowQr7O32Y1Qn5Qx4Zi+R90LP5R9XUZfEnmm+JrxXM6bX01z6PU2Ut9LhhC+0LyVre2H0Ti1 y8+fHbYs6Ntlv/Wsfy84Ziaiokg+Qd+z08C9udzjE6 kcyr7S+XA34EU40vnpTt/HQNhX+MwChNEw8PczpEWhs8Bqv507NhaTauHaodkrU5T+tsJj2zRVOBCt3D st/OfzWy/c5++YX/pnrD7XjdW7jy3nz0J+ejEUmlNut35Vx7mRP/o+Da/2WgcPrJNEF5kI+ZxuPb/Sx/ ObZYfeoW/QN+y3oCIxD0nYAyoNHQsVwIRfSrgM+pYP P/k7t+z63g8v+VeO+arr+YxnuyjgA2P/61zyjPgA9Z7/80sD1vycCU2z6Ha7Dcct52wREbdKux9Cm9cU VzkPa/6qTMer2Qjqfq7skI8ZZddbWhHMe1Y+0J+nn1q/umXoY/0qxu3U+rUGkakv6hpvm8UlM7kMkmvi HfVo/ZjZ7Mwdts4tkmDq9W/oN/Qb+uW6lknEr/X2aV p/blHW+iMUaFbkl85wEm0qZIkDp+l6a5YgFI4CtM/2uo6v/SQedD5sjZWa5s72egD4bpq6oI605fKjC+ 9EhaOizVc0w027Zsux+to/mmFfvTLqj/djIz0iyLq2a3b6uS+2pY/4oeQ92FzcVhOo+f84en11j8vVZ6 l/0Hj29uz6uspIaynsV/hCOzvpuvl9B56iTT/tndJH j8CcprycaRtlRREYc3f08a4vbi8b89T7zDsJU/gGjq9Eote3uO+LHULcpSjeg46P1EF8ceb1Rh5tn93y t59Nww4p2/emu9UZry31krQ/oT/Cp3RZakHR1Pk8Ia0L/XJ3fgeP+aV5yo8gGOyhYFyCjikt9EMuvcPI tHegvQPtHWjvRHvnV//IfM4u7O47Ms6G1QZwH/Ro7x zjD7W7Snzlg27MB6m/cDzaG/mM2jQt1FukP93uV68m3nH++uLdN8O+bpSY9sI7xzdfd9zx5Bdh09WLl/ EDxw/oJ/QT+dH5kw4Fi/ErkQdwkIjp0Pzz7La2Ldq63rpyh7QxhE7KF+rd7J95gAv1ri99SBO/oZ+op+ TMBunj8Rd9by/VK+P4g+PDf0Pv+vC/RrkCMF8lggrX 8L+Sj8cM/yv5/2dwu2ovc0/5A8/Tnh/vDP8r+fHO8L+Tk7A29guUEEO3ICx5nzp/q3sPaG/YVznOZV/p CVe2QwbH93/wgM26N11vfOYn6T82xxopEB+mD71H5vkgHW25+yu7Drk8no7GlJ0U/6fn3JCj04b2uzwf 7/0l+4ibmkdjtEPqooX97imrM/5XruPL/2rJ/2qqLe UPvNL/Ks6V/0RPG1okv1zQ/lfRP0v+K7tfh75jJ/yvpvoq/K/k27nC/+ob610f9TC1LKyDogiWfcDB9w Cf/9sK/ck3Km0rw5BG7xb/q3v/5c+/rPz5l/zbb/n5Gy/3e1rolJYndlYz02/yb4+xtNK/dns967hoFA 8ofXvjcyl+3LI33jNfFE+5YE32fT/jJEKn40aohm3P /cLxG/qN4+D9pxCHb/9KfZj+Y2PbwiT7Mr8O17Dsy+nbau2H0XIF1PB6ITxy+EH1g+IH1T+EJnh8zPh+ UGOjVTzdUvyg+lnwz8tw+u1qiXxpm5d92R24ogmtlc/Yo0x5Ui2lir/UGJZ/u54L+bdneUA/gC04PjG/ XXPaCv/8zX4Lfo8LLwu3unY6E/pT+vF9KIc+6hyKp8 sp8SZxsTr/+XaNmp/PpBLRXD2zCV+8TkQItXJci23+O0WUzmRwLwJWz9eaAZzuI86R+uR8gZjhIvTyO/ KFMV4tpM+92Mwb2YP94X75Zw3E553I4UxyYlgCmyH1jg6gc+Kdl+CBzxu5DQ7LX12quJkyPU+Ks6e8It eq+BM1Rd0fOSJsvWsaP/Db3kMhg29y6Zj7W8rZf+Hf fssxP+p1W4weuM8y19wM5Qn2qLCv9v5s7h4+rmo1Gv639eJs2jghB24l7B79uV+vI4VEjK3Fc/YqfvCW od/Ex4OoSQ9nqoINsth5y99z31lq6EE6Jz2+23jowNCI3PZHof9PD2Vi+MGF+RCF8NXTef1h+O35Ny7q vPvc8m+/5Tc+91fjeSt+MOrZih+8ZRzfcHyDvkPfUU /FS+6MH5R+iuqJa7Pt+EP25gK5W55H+nhd8Sbu7Cd7tpq6sA0C/OAtQ+/QO/QN+xpC2HlswGZw32CLZ/ QD+qcetq74yHz/t+NWloq7xmxgow+0pi286xNcYL+0C07oL8vin2z5uD+27KtbHnVMvY+8C8EPuv45xt D+Af1E/vG8B1f6836S+rKft/zbt/CnV1o5ac+8ZegN eoPeoXfoG/QN+m61i26JV4Fbyt6KslA1u3x8/R07NcuzTbzNtP+lvuh3P8yHlexc8I18a05ogtGldK/7 7phb770t37kY5TEVJucj6Jml6oz03KX+xhzc6Fh1Z/oN/YH+gE60VQ3Z+vr+3hPcmL13BgX18nyR6dxR r/wMW/kZ1G/Ze4VS9V/KvtJ/LnwQe4BuZ3UjVd/tUf GhW/EQfoNOR7q6rAP7cHZ/iRjG0fAmZlaJqmLSq4FMmMWjpxS6aTL+tbV+pWdK/u3qw1i/4p2SrsTy6W vtWL/SHt9O/yvdg/AAPD5qQ5mW7yvoyR4yCjIu68bsm6flg3+6N/nzR1n+7br/VevtW+lGagzZfN9uhP +pTxb+X+Wc5J5aZ9DjN/B6e5M2xSFrsTcxwmYnEsYw ucO+zuq5v92KL1ZW+EHVH/BLT2vJSook4TLsO9DxxQ6lb72Fwdj1crY5nvh0rrxgS/13sq/CoimWTX97 am+8fzM/Q5br/sxcQ9BnQu+893p2/w8R4913fn1df7s40X08Pwg1ayvQ62rR6Qq+tX6l/7DqO5QKos7/ w0qnViietkVsrJ1bmQNs3zofl5E6WPxzl0JI2Lm0V/ oN/Yb+4LrKF/TTn6/uAT5ew16ozm7U+XPOV/NIV6wwQCxFI/IC85vO25mgCeyongj4T/oJ/YR+Qb+g39 AjWJftnocr0QDSW7Ph1gUG5Adg1P92H49/V9f489UD+t89b79vl1yN115vS4tsalzOGQo6R9pYF/8/tj +UoT/In4W04H8d1U269k5lUs2jUz7q/p5yJo4Geb24 sK0Ih63fqa1D7J++0oyyJr0a0C/oJ/QL+oX6N+rf0B/oT+ctB5kll1Bcf84bx/3BE/pHCjj24l+Kue7I /5lrPteuouA4hEecD/rVCkza2U0v/oQiDk2uA+E31I6odCfe5yok5OJCusdh31B/e7Q/eYRM0lG35E8a ex/AG09cwL/Hu1EzFL/aq/6LE5076/7gLVc/aH/wlq E/0J/Sa3/wlqv+UfvdZxj0+T4R9LxiCudvO/uKQm9Cc4ZvGT+AHu3V/mCWF/A0e6DSF3bE1S/oa3//KH 9SG1kbperTgn+5Gbj0dqgtB401+Q7qVtnOrfihILPCRhn7ibZ82tLyP7+JBT31cC95fo8v0hp+ypkVX3 EbpWypRrLpA5O/vmsTp6ECI3i6V+wr+Imi5fRrjkel oPjxurfvwly4QsfUlWCF/TBCLs6Uhe4P9e8sP/RhT+y9bHCRLj/9B0hs8I+Ariana/+V5rn5X+luVr+V5qr [file] UgMCBSCgo+IfwbtHRkjVsuSLLYRCgeHoGRQLOYU6V= ID Date Data Source [id number] 08/06/2020 12:33:41 PM EST [facility] Name Value Range Interpretation Code Description Data Chela rce(s) Supporting Document(s) SODIUM 141 mmol/L (136-145) [facility] POTASSIUM 3.9 mmol/L (3.6-5.2) [facility] CHLORIDE 109 mmol/L (100-108) H [facility] CO2 26 mmol/L (22-31) [facility] ANION GAP 6 mmol/L (7-16) L [facility] UREA NITROGEN 15 mg/dL (7-24) [facility] CREATININE 1.12 mg/dL (0.80-1.30) [facility] BUN/CREAT RATIO 13.4 RATIO (10.0-20.0) [facility] GLUCOSE 90 mg/dL (70-99) [facility] CALCIUM 8.8 mg/dL (8.4-10.2) [facility] GFR >60 ml/min/1.73m2 (>59) [facility] GFR ( AMER) >60 ml/min/1.73m2 (>59) [facility] GFR INTERPRETATION [facility] --NORMAL KIDNEY FUNCTION OR MILD DISEASE - GFR >OR= 60CHRONIC KIDNEY DISEASE - GFR 15 - 59RENAL FAILURE - GFR <15 Est. GFR calculation based on the MDRDstudy equation, which assumes a steadystate for creatinine. Est. GFR should notbe used for medication dosing. ID Date Data Source [id number] 08/06/2020 12:18:48 PM EST [facility] Name Value Range Interpretation Code Description Data Chela rce(s) Supporting Document(s) WBC 4.5 10*3/uL (4.1-11.0) [facility] [place] RBC 3.98 10*6/uL (4.60-6.10) L [facility] HGB 12.8 g/dL (13.5-18.0) L [facility] HCT 37.7 % (41.0-53.0) L [facility] MCV 94.7 fL (80.0-95.0) [facility] MCH 32.2 pg (27.0-32.0) H [facility] MCHC 34.1 g/dL (32.0-36.0) [facility] RDW 15.5 % (10.5-14.5) H [facility] PLT 127 10*3/uL (150-450) L [facility] MPV 9.7 fL (7.1-10.7) [facility] ID Date Data Source [id number] 08/06/2020 11:35:00 AM EST [facility] Name Value Range Interpretation Code Description Data Chela rce(s) Supporting Document(s) SARS coronavirus 2 RNA [Presence] in Res piratory specimen by DORA with probe detection NOT DETECTED [facility] This lab was reported by [facility]. ID Date Data Source [id number] 08/06/2020 12:56:27 PM EST [facility] Name Value Range Interpretation Code Description Data Chela rce(s) Supporting Document(s) SPECIMEN DESCRIPTION [facility] INFLUENZA A (NEG) [facility] INFLUENZA B (NEG) [facility] RSV (NEG) [facility] COMMENT [facility] THE [place] FDA HAS MADE THIS TEST AVAILABL EUNDER AN EMERGENCY USE AUTHORIZATION(EUA) FOR THE DETECTION AND/OR DIAGNOSISOF THE VIRUS THAT CAUSES COVID-19.PERFORMED AT [address] [place] [id number] COVID19 RESULT (NDET) [facility] THIS ASSAY AMPLIFIES AND DETECTSTHE TARG ET RNA USING REAL-TIME PCR.TESTING PERFORMED ON [employer] GENEXPERTNEGATIVE 2019_NCOV RT-PCR RESULTS DONOT PRECLUDE 2019_NCOV INFECTION ANDSHOULD NOT BE USED THE SOLE BASISFOR PATIENT MANAGEMENT DECISIONS. FIRST TEST [facility] [employer] [facility] [employer] [facility] [place] SYMPTOMATIC [facility] DATE OF SYMPT ONSET [facility]ITAL[facility] ICU [facility] [place] CONGREGATE CARE SET [facility] ID Date Data Source [id number] 07/21/2020 06:21:00 AM EST [place] ([facility]) Name Value Range Interpretation Code Description Data Chela rce(s) Supporting Document(s) WHITE BLOOD COUNT 6.1 3/uL Normal WHITE BLOOD COUNT [facility]) RED BLOOD COUNT 4.14 6/uL Below low normal RED BLOOD COUN T [facility]) Hemoglobin [Mass/volume] in Mixed venous blood by Oximetry 12.9 g/dl Below low normal HEMOGLOBIN [facility]) Hematocrit [Pure volume fraction] of Blood by Automated count 40 .5 % Below low normal HEMATOCRIT [facility]) MEAN CORPUSCULAR VOLUME 97.8 fl Above high normal MEAN CORPUSCULAR VOLUME [facility]) MEAN CORPUSCULAR HEMOGLOBIN 31.2 pg Normal MEAN COR PUSCULAR HEMOGLOBIN [facility]) RED CELL DISTRIBUTION WIDTH 15.0 % Above high no rmal RED CELL DISTRIBUTION WIDTH [facility]) MEAN CORPUSCULAR HGB CONC 31.9 g/dl Below low hernandez l MEAN CORPUSCULAR HGB CONC [place] ([facility]) PLATELET COUNT, AUTOMATED 167 3/uL Normal PLATELET C OUNT, AUTOMATED [place] ([facility]) NUCLEATED RED BLOOD CELL % 0.0 % Normal NUCLEATED RED BLOOD CELL % [place] ([facility]) ID Date Data Source [id number] 07/21/2020 06:21:00 AM [facility]) Name Value Range Interpretation Code Description Data Chela rce(s) Supporting Document(s) Reported Physicians See Note Reported Physici ans [place] ([facility]) Note: Reported Physicians:Ordering: RUPERTO FULLER [id number], JEWELS EspinosaAttending: CHIQUIS SOSAAdmitting: Sandy TERRELL To: Magdalena SOSA To: Sandy TERRELL To: Nelson Delarosa ID Date Data Source [id number] 07/21/2020 06:21:00 AM EST [place] ([facility]) Name Value Range Interpretation Code Description Data Chela rce(s) Supporting Document(s) GLUCOSE, FASTING 117 MG/DL Above high normal GLUCOSE, FAS TING [place] ([facility]) BLOOD UREA NITROGEN 21 MG/DL Above high normal BLOOD URE A NITROGEN [place] ([facility]) CREATININE FOR GFR 1.36 MG/DL Above high normal CREATININE FOR GFR [place] ([facility]) GLOMERULAR FILTRATION RATE 55.2 Normal GLOMERULA R FILTRATION RATE [place] ([facility]) Note: Units are mL/min/1.73 m2 Chroni c Kidney Disease Staging per NKF: Stage I & II GFR >=60 Normal to Mildly Decreased Stage III GFR 30- 59 Moderately Decreased Stage IV GFR 15-29 Severely Decreased Stage V GFR <15 Very Little GFR Left ESRD GFR <15 on REEL MAN SODIUM LEVEL 139 MEQ/L Normal SODIUM LEVEL [place] ( [facility]) POTASSIUM SERUM 4.3 MEQ/L Normal [facility] CHLORIDE LEVEL 105 MEQ/L Normal CHLORIDE LEVEL [facility]) Anion gap in Body fluid 9 MEQ/L Normal ANION GAP [facility] ([facility]) CARBON DIOXIDE LEVEL 25 MEQ/L Normal CARBON DIOXIDE LEVEL [place] ([facility]) AST/SGOT 10 U/L Normal AST/SGOT [place] ([facility]) CALCIUM LEVEL 9.1 MG/DL Normal CALCIUM LEVEL [facility]) ALT/SGPT 15 U/L Normal ALT/SGPT [place] ([facility]) Alkaline phosphatase [Enzymatic activity/volume] in Se rum, Plasma or Blood 68 U/L Normal ALKALINE PHOSPHATASE [place] ([facility]) BILIRUBIN,TOTAL 0.6 MG/DL Normal BILIRUBIN,TOTAL [facility]) TOTAL PROTEIN 7.4 GM/DL Normal TOTAL PROTEIN [place] ([facility]) Albumin [Mass/volume] in Blood by Bromocresol purple ( BCP) dye binding method 3.9 GM/DL Normal ALBUMIN [place] ([facility]) ALBUMIN/GLOBULIN RATIO 1.1 Normal ALBUMIN/GLOBU MICHELLE RATIO [place] ([facility]) ID Date Data Source [id number] 07/21/2020 06:21:00 AM EST [place] ([facility]) Name Value Range Interpretation Code Description Data Chela rce(s) Supporting Document(s) Reported Physicians See Note Reported Physici ans [place] ([facility]) Note: Reported Physicians:Ordering: RUPERTO FULLER [id number], JEWELS EspinosaAttending: CHIQUIS SOSAAdmitting: Sandy TERRELL To: Magdalena SOSA To: Sandy TERRELL To: Nelson Delarosa ID Date Data Source [id number] 07/21/2020 06:21:00 AM EST [place] ([facility]) Name Value Range Interpretation Code Description Data Chela rce(s) Supporting Document(s) MAGNESIUM LEVEL 2.2 MG/DL Normal MAGNESIUM LEVEL YEFRI TAO [facility]) ID Date Data Source [id number] 07/21/2020 06:21:00 AM EST [place] ([facility]) Name Value Range Interpretation Code Description Data Chela rce(s) Supporting Document(s) Reported Physicians See Note Reported Physic ans [place] ([facility]) Note: Reported Physicians:Ordering: RUPERTO FULLER [id number], JEWELS EspinosaAttending: ADIEL TERRELLdmitting: Sandy TERRELL To: Sandy TERRELL To: Nelson Delarosa ID Date Data Source [id number] 07/20/2020 12:21:00 PM EST [place] ([facility]) Name Value Range Interpretation Code Description Data Chela rce(s) Supporting Document(s) Reported Physicians See Note [facility] Note: Reported Physicians:Ordering: Bianca Cruz [id number], Valentina MDAttending: Ac Thapa To: Ac Thapa To: Nelson Delarosa ID Date Data Source [id number] 07/20/2020 12:21:00 PM EST [place] ([facility]) Name Value Range Interpretation Code Description Data Chela rce(s) Supporting Document(s) iSTAT pH 7.434 UNITS Normal iSTAT pH [place] ([facility]) iSTAT pCO2 38.5 MMHG Normal iSTAT pCO2 [place] ([facility]) iSTAT pO2 76.0 MMHG Below low normal iSTAT pO2 [place] ([facility]) iSTAT TCO2 27.0 MMOL/L Normal iSTAT TCO2 [place] ([facility]) iSTAT HCO3 25.8 MMOL/L Normal iSTAT HCO3 [place] ([facility]) iSTAT BASE EXCESS 2.0 MMOL/L Normal iSTAT BASE EXCESS [place] ([facility]) iSTAT sO2 96 % Normal iSTAT sO2 [place] ([facility]) ID Date Data Source [id number] 07/20/2020 11:17:00 AM EST [place] ([facility]) Name Value Range Interpretation Code Description Data Chela rce(s) Supporting Document(s) Reported Physicians See Note Reported Physici ans [facility]) Note: Reported Physicians:Ordering: Valentina Cedillo [id number]: Ac Thapa To: Ac Thapa To: Nelson Delarosa ID Date Data Source [id number] 07/20/2020 11:17:00 AM EST [place] ([facility]) Name Value Range Interpretation Code Description Data Chela rce(s) Supporting Document(s) RESPIRATORY PANEL See Note RESPIRATORY PANEL [facility]) Note: This respiratory PCR panel detects Influenza A H1, H3 [id number] H1 viruses, Influenza B virus, Respiratory Syncytial Virus,Human metapneumovirus, Parainfluenza virus 1, 2, 3 and 4, Adenovirus,Rhinovirus/Enterovirus, Coronavirus HKU1, NL63, OC43, 229E [id number] (COVID 19), Bordetella pertussis, Bordetella parapertussis,Mycoplasma pneumoniae and Chlamydia pneumoniae.NEGATIVE by MULTIPLEXED NUCLEIC ACID [id number] (COVID 19) NEGATIVE - SARS-CoV-2 (COVID19) Notes [TIMP] See Note NOTES [place] ([facility]) Note: Source: NASOPHARYNX ID Date Data Source [id number] 07/20/2020 11:17:00 AM EST [facility] Name Value Range Interpretation Code Description Data Chela rce(s) Supporting Document(s) SARS-CoV-2 (COVID 19) NEGATIVE - SARS-CoV-2 (COVID19) [facility] This lab was ordered by [facility] a nd reported by [facility]. ID Date Data Source [id number] 07/20/2020 10:52:00 AM EST [place] ([facility]) Name Value Range Interpretation Code Description Data Chela rce(s) Supporting Document(s) Reported Physicians See Note Reported Physici ans [place] ([facility]) Note: Reported Physicians:Ordering: Bianca Cruz [id number]: Ac Thapa To: Ac Thapa To: Nelson Delarosa ID Date Data Source [id number] 07/20/2020 10:52:00 AM EST [place] ([facility]) Name Value Range Interpretation Code Description Data Chela rce(s) Supporting Document(s) WHITE BLOOD COUNT 5.1 3/uL Normal WHITE BLOOD COUNT [facility]) RED BLOOD COUNT 3.97 6/uL Below low normal RED BLOOD COUN T [facility]) Hemoglobin [Mass/volume] in Mixed venous blood by Oximetry 12.2 g/dl Below low normal HEMOGLOBIN [facility]) MEAN CORPUSCULAR VOLUME 101.5 fl Above high normal MEAN CORPUSCULAR VOLUME [facility]) Hematocrit [Pure volume fraction] of Blood by Automated count 40 .3 % Below low normal HEMATOCRIT [facility]) MEAN CORPUSCULAR HGB CONC 30.3 g/dl Below low hernandez l MEAN CORPUSCULAR HGB CONC [place] ([facility]) MEAN CORPUSCULAR HEMOGLOBIN 30.7 pg Normal MEAN COR PUSCULAR HEMOGLOBIN [facility]) RED CELL DISTRIBUTION WIDTH 14.9 % Above high no rmal RED CELL DISTRIBUTION WIDTH [facility]) PLATELET COUNT, AUTOMATED 175 3/uL Normal PLATELET C OUNT, AUTOMATED [place] ([facility]) NEUTROPHILS % 55.6 % Normal NEUTROPHILS % [place] ([facility]) MONO % 10.9 % Above high normal MONO % [place] ([facility]) LYMPH % 29.7 % Normal LYMPH % [place] ([facility]) BASO % 0.4 % Normal BASO % [place] ([facility]) EOS % 3.2 % Above high normal EOS % [place] ([facility]) NUCLEATED RED BLOOD CELL % 0.0 % Normal NUCLEATED RED BLOOD CELL % [place] ([facility]) IMMATURE GRANULOCYTE % 0.2 % Normal IMMATURE GRAN ULOCYTE % [place] ([facility]) NEUTROPHILS # 2.8 3/uL Normal NEUTROPHILS # [place] ([facility]) LYMPH # 1.5 3/uL Normal LYMPH # [place] ([facility]) MONO # 0.6 3/uL Normal MONO # [place] ([facility]) EOS # 0.2 3/uL Normal EOS # [place] ([facility]) BASO # 0.0 3/uL Normal BASO # [place] ([facility]) ID Date Data Source [id number] 07/20/2020 10:52:00 AM [facility] ([facility]) Name Value Range Interpretation Code Description Data Chela rce(s) Supporting Document(s) Reported Physicians See Note Reported Physici ans [place] ([facility]) Note: Reported Physicians:Ordering: Bianca Cruz [id number]: Ac Thapa To: Ac Thapa To: Nelson Delarosa ID Date Data Source [id number] 07/20/2020 10:52:00 AM [facility] ([facility]) Name Value Range Interpretation Code Description Data Chela rce(s) Supporting Document(s) GLUCOSE, FASTING 81 MG/DL Normal [facility] ([facility]) BLOOD UREA NITROGEN 14 MG/DL Normal BLOOD UREA NITRO GEN [place] ([facility]) CREATININE FOR GFR 1.06 MG/DL Normal CREATININE FOR GF R [place] ([facility]) GLOMERULAR FILTRATION RATE > 60.0 Normal GLOMERULA R FILTRATION RATE [place] ([facility]) Note: Units are mL/min/1.73 m2 Chroni c Kidney Disease Staging per NKF: Stage I & II GFR >=60 Normal to Mildly Decreased Stage III GFR 30- 59 Moderately Decreased Stage IV GFR 15-29 Severely Decreased Stage V GFR <15 Very Little GFR Left ESRD GFR <15 on REEL MAN SODIUM LEVEL 138 MEQ/L Normal SODIUM LEVEL [facility]) POTASSIUM SERUM 4.3 MEQ/L Normal POTASSIUM SERUM GREE NWOSCAR [facility]) CHLORIDE LEVEL 106 MEQ/L Normal CHLORIDE LEVEL [facility] ([facility]) CARBON DIOXIDE LEVEL 29 MEQ/L Normal CARBON DIOXIDE LEVEL [facility]) CALCIUM LEVEL 9.5 MG/DL Normal CALCIUM LEVEL [facility]) Anion gap in Body fluid 3 MEQ/L Below low normal ANION GAP [facility]) ID Date Data Source [id number] 07/20/2020 10:52:00 AM [employer] ([facility]) Name Value Range Interpretation Code Description Data Chela rce(s) Supporting Document(s) Reported Physicians See Note Reported Physici ans [place] ([facility]) Note: Reported Physicians:Ordering: Bianca Cruz [phone]: Ac Thapa To: Ac Thapa To: Nelson Delarosa ID Date Data Source [id number] 07/20/2020 10:52:00 AM [employer] ([facility]) Name Value Range Interpretation Code Description Data Chela rce(s) Supporting Document(s) THYROID STIMULATING HORMONE 0.429 uIU/ML Normal THYROI D STIMULATING HORMONE [facility]) ID Date Data Source [id number] 07/20/2020 10:52:00 AM EST [place] ([facility]) Name Value Range Interpretation Code Description Data Chela rce(s) Supporting Document(s) Reported Physicians See Note Reported Physici ans [place] ([facility]) Note: Reported Physicians:Ordering: Bianca Cruz [phone], a MDAttending: Maj ElieraCopy To: Maj ElieraCopy To: Nelson Delarosa ID Date Data Source [id number] 07/20/2020 10:52:00 AM EST [place] ([facility]) Name Value Range Interpretation Code Description Data Chela rce(s) Supporting Document(s) NT-PRO BNP 1217 PG/ML Above high normal NT-PRO BNP SUSIEME Y ([facility]) ID Date Data Source [id number] 07/20/2020 10:52:00 AM EST [place] ([facility]) Name Value Range Interpretation Code Description Data Chela rce(s) Supporting Document(s) Reported Physicians See Note Reported Physici ans [place] ([facility]) Note: Reported Physicians:Ordering: Bianca Shieloise [id number], Maja MDAttending: Maj ElieraCopy To: Ac Thapa To: Nelson Delarosa ID Date Data Source [id number] 07/20/2020 10:52:00 AM EST [place] ([facility]) Name Value Range Interpretation Code Description Data Chela rce(s) Supporting Document(s) THYROXINE (T4) 8.4 UG/DL Normal THYROXINE (T4) [facility] AY ([facility]) ID Date Data Source [id number] 07/20/2020 10:52:00 AM EST [place] ([facility]) Name Value Range Interpretation Code Description Data Chela rce(s) Supporting Document(s) Reported Physicians See Note Reported Physici ans [place] ([facility]) Note: Reported Physicians:Ordering: Bianca Shieloise [id number], Maja MDAttending: Maj ElieraCopy To: Maj ElieraCopy To: Nelson Delarosa ID Date Data Source [id number] 07/20/2020 10:52:00 AM EST [place] ([facility]) Name Value Range Interpretation Code Description Data Chela rce(s) Supporting Document(s) AST/SGOT 13 U/L Normal AST/SGOT [place] ([facility]) ALT/SGPT 12 U/L Normal ALT/SGPT [place] ([facility]) Alkaline phosphatase [Enzymatic activity/volume] in Se rum, Plasma or Blood 66 U/L Normal ALKALINE PHOSPHATASE [place] ([facility]) BILIRUBIN,TOTAL 0.5 MG/DL Normal BILIRUBIN,TOTAL GREE [place]AY ([facility]) BILIRUBIN,DIRECT 0.1 MG/DL Normal [facility],DIRECT [facility] ([facility]) TOTAL PROTEIN 7.7 GM/DL Normal TOTAL PROTEIN [place] ([facility]) Albumin [Mass/volume] in Blood by Bromocresol purple ( BCP) dye binding method 3.6 GM/DL Normal ALBUMIN [place] ([facility]) ALBUMIN/GLOBULIN RATIO 0.9 Normal ALBUMIN/GLOBU MICHELLE RATIO [place] ([facility]) ID Date Data Source [id number] 07/20/2020 10:52:00 AM EST [place] ([facility]) Name Value Range Interpretation Code Description Data Chela rce(s) Supporting Document(s) Reported Physicians See Note Reported Physici ans [place] ([facility]) Note: Reported Physicians:Ordering: Bianca Cruz [phone]: Ac Thapa To: Ac Thapa To: Nelson Delarosa ID Date Data Source [id number] 07/20/2020 10:52:00 AM EST [employer] ([facility]) Name Value Range Interpretation Code Description Data Chela rce(s) Supporting Document(s) LACTIC ACID SEPSIS PROTOCOL 1.7 MMOL/L Normal LACTIC A CATIE SEPSIS PROTOCOL [place] ([facility]) Notes [TIMP] See Note NOTES [place] ([facility]) Note: Y/N query for Sepsis Lactate Rule: Y ID Date Data Source [id number] 07/20/2020 10:52:00 AM EST [employer] ([facility]) Name Value Range Interpretation Code Description Data Chela rce(s) Supporting Document(s) Reported Physicians See Note [facility] Note: Reported Physicians:Ordering: Bianca Cruz [phone] MDAttending: Ac Thapa To: Ac Thapa To: Nelson Delarosa ID Date Data Source [id number] 07/20/2020 10:52:00 AM [facility] ([facility]) Name Value Range Interpretation Code Description Data Chela rce(s) Supporting Document(s) CPK CREATINE PHOSPHOKINASE 45 U/L Normal CPK CREAT INE PHOSPHOKINASE [facility]) CK-MB VALUE MASS 1.0 NG/ML Normal CK-[facility] VALUE MASS [facility] ([facility]) MB/CK RELATIVE INDEX 2.22 Normal MB/CK RELATIVE INDEX [place] ([facility]) Note: DIAGNOSIS CRITERIA MMB ng/ml Relative Index (RI) NON-AMI < or = 5 N/A BROWNLEE ZONE > 5 < or = 4 AMI > 5 > 4 TROPONIN I < 0.02 NG/ML Normal TROPONIN I [place] ([facility]) Note: Troponin I Reference Interval for Siemens [place] LOCI: 99th Percentile= 0.00-0.045 ng/ml Risk Stratification: <= 0.10 ng/ml Decreased Risk for Adverse Clinical Events. 0.10-1.50 ng/ml Increased Risk for Adverse Clinical Events. Evaluation of additional criterion and/or repeat testing in 2-6 hours is suggested to rule out myocardial damage. >= 1.50 ng/ml Indicative of Myocardial Injury. ID Date Data Source [id number] 07/14/2020 02:19:00 PM [facility] ([facility]) Name Value Range Interpretation Code Description Data Chela rce(s) Supporting Document(s) Reported Physicians See Note Reported Physici ans [place] ([facility]) Note: Reported Physicians:Ordering: Nelson Sommers AAttending: NELSON DELRAOSAConsulting: NO, PCPCopy To: Nelson Delarosa ID Date Data Source [id number] 07/14/2020 02:19:00 PM [facility] ([facility]) Name Value Range Interpretation Code Description Data Chela rce(s) Supporting Document(s) Iron [Mass/volume] in Urine collected for unspecified duration 46 U G/DL IRON [place] ([facility]) Note: Responsible Observer: () ID Date Data Source [id number] 07/14/2020 02:19:00 PM EST [place] ([facility]) Name Value Range Interpretation Code Description Data Chela rce(s) Supporting Document(s) Reported Physicians See Note Reported Physici ans [place] ([facility]) Note: Reported Physicians:Ordering: Chavez e, Nelson AAttending: MALINA, JOCELYNConsulting: NO, PCPCopy To: Malina Nelson ID Date Data Source [id number] 07/14/2020 02:19:00 PM EST [place] ([facility]) Name Value Range Interpretation Code Description Data Chela rce(s) Supporting Document(s) Ferritin [Interpretation] in Blood 106.0 ng/mL FERRITIN [place] ([facility]) Note: Responsible Observer: () ID Date Data Source [id number] 07/14/2020 02:19:00 PM EST [place] ([facility]) Name Value Range Interpretation Code Description Data Chela rce(s) Supporting Document(s) Reported Physicians See Note Reported Physici ans [place] ([facility]) Note: Reported Physicians:Ordering: Chavez e, Nelson AAttending: MALINA JOCELYNConsulting: NO, PCPCopy To: Stefania Delarosacelyn ID Date Data Source [id number] 07/14/2020 02:19:00 PM EST [place] ([facility]) Name Value Range Interpretation Code Description Data Chela rce(s) Supporting Document(s) FOLIC ACID 15.4 NG/ML FOLIC ACID [place] ([facility]) Note: Responsible Observer: () ID Date Data Source [id number] 07/14/2020 02:19:00 PM EST [place] ([facility]) Name Value Range Interpretation Code Description Data Chela rce(s) Supporting Document(s) Reported Physicians See Note Reported Physici ans [place] ([facility]) Note: Reported Physicians:Ordering: Chavez e, Nelson AAttending: MALINA JOCELYNConsulting: NO, PCPCopy To: Nelson Delarosa ID Date Data Source [id number] 07/14/2020 02:19:00 PM [facility] ([facility]) Name Value Range Interpretation Code Description Data Chela rce(s) Supporting Document(s) RETIC COUNT 2.2 % Above high normal RETIC COUNT [facility] ([facility]) Note: Responsible Observer: () ID Date Data Source [id number] 07/14/2020 02:19:00 PM [facility] ([facility]) Name Value Range Interpretation Code Description Data Chela rce(s) Supporting Document(s) Reported Physicians See Note Reported Physici ans [place] ([facility]) Note: Reported Physicians:Ordering: Nelson Sommers AAttending: NELSON DELAROSAConsulting: NO, PCPCopy To: Nelson Delarosa ID Date Data Source [id number] 07/14/2020 02:19:00 PM [facility] ([facility]) Name Value Range Interpretation Code Description Data Chela rce(s) Supporting Document(s) VITAMIN B12 408 PG/ML VITAMIN B12 [place] ([facility]) Note: Responsible Observer: () ID Date Data Source [id number] 07/14/2020 03:18:00 PM [facility] Value Range Interpretation Code Description Data Chela rce(s) Supporting Document(s) Cobalamin (Vitamin B12) [Mass/volume] in Serum or Plasma 408 PG/ML 232 - 1245 [facility] ID Date Data Source [id number] 07/14/2020 03:18:00 PM [facility] Value Range Interpretation Code Description Data Chela rce(s) Supporting Document(s) Folate [Mass/volume] in Serum or Plasma 15.4 NG/ML 5.6 - 45.8 [facility] ID Date Data Source [id number] 07/14/2020 03:18:00 PM [facility] Value Range Interpretation Code Description Data Chela rce(s) Supporting Document(s) Ferritin [Mass/volume] in Serum or Plasma 106.0 ng/mL 5.0 - 244 [facility] ID Date Data Source [id number] 07/14/2020 02:59:00 PM [facility] Name Value Range Interpretation Code Description Data Chela rce(s) Supporting Document(s) Reticulocytes/100 erythrocytes in Blood by Automated count 2.2 % 0.5 - 1.5 H [facility] ID Date Data Source [id number] 07/14/2020 02:58:00 PM [facility] Name Value Range Interpretation Code Description Data Chela rce(s) Supporting Document(s) Iron [Mass/volume] in Serum or Plasma 46 UG/DL 42 - 135 [facility] ID Date Data Source [id number] 06/04/2020 02:00:00 PM [facility] ([facility]) Name Value Range Interpretation Code Description Data Chela rce(s) Supporting Document(s) Reported Physicians See Note Reported Physici ans [place] ([facility]) Note: Reported Physicians:Ordering: Nelson Sommers AAttending: NELSON DELAROSAReferring: NELSON DELAROSAConsulting: NO, PCPCopy To: Nelson Delarosa ID Date Data Source [id number] 06/04/2020 02:00:00 PM [facility] ([facility]) Name Value Range Interpretation Code Description Data Chela rce(s) Supporting Document(s) CULTURE WOUND See Note CULTURE WOUND [place] ([facility]) Note: _CULTURE WOUND_ [id number] DATE/TIME: 06/10/2020 08:08Culture: CULTURE WOUND Status: FinalIsolate 1 Enterococcus faecalis Flag: A . . . . . . .7Heavy growthCiprofloxacin SLevofloxacin STetracycline R Previous result entered on 06/09/2020 07:29 ET Enterococcus faecalis Previous result entered on 06/08/2020 09:58 ET Enterococcus faecalis Previous result entered on 06/07/2020 03:18 ET Microbiological testing to rule out the presence of possible pathogensis in progress.Aerobic Bacterial Culture: [id number] faecalis Flag: AIsolate 2 Staphylococcus aureus Flag: A . . . . . . .3Heavy growth -- Continued on next page --Patient: LOUISE Arnett Order: [id number] Page 2Culture: CULTURE WOUND Status: Final ====Most [...] Gram negative rodsAcinetobacter pittii Flag: APatient: LOUISE Arnett Order: [id number] Page 3Culture: CULTURE WOUND Status: Fin al =ISOLATE 1 Enterococcus faecalisISOLATE 2 Staphylococcus aureusISOLATE 3 Acinetobacter pittii Isolate 1 Isolate 2 Isolate 3Antibiotic RAJENDRA Int RAJENDRA Int RAJENDRA IntUnits ug/mL ug/mL ug/mL---- Ampic illin/Sulbactam Cefepime Cefotaxime Ceftazidime Ceftriaxone Ciprofloxacin Clindamycin Erythromycin Gentamicin Levofloxacin Linezolid Meropenem Moxifloxacin Oxacillin Penicillin S S Quinupristin/Dalfopristin Rifampin Tetracycline Tobramycin Trimethoprim/Sulfa Vancomycin S S P1 Test performed by: [facility] #: [id number] [address] [place] [address] [phone] [facility] [id number] Director : Jarod Ratliff MD NPI #:Detective Sergeant : 06/08/[email or web address].SENT REF 06/08/20.1018.XMT.SENT REF 06/09/20.0956.XMT.SENT REF 06/10/20.0944.XMT.SENT REF ID Date Data Source [id number] 06/10/2020 09:44:00 AM EST [facility] Name Value Range Interpretation Code Description Data Chela rce(s) Supporting Document(s) CULTURE WOUND [facility] _CULTURE WOUND_$$[id number]$$[id number]$$[id number] DATE/TIME: 06/10/2020 08:08Culture: CULTURE WOUND Status: FinalIsolate 1 Enterococcus faecalis Flag: A . . . . . . .7Heavy growthCiprofloxacin SLevofloxacin STetracycline R Previous result entered on 06/09/2020 07:29 ET Enterococcus faecalis Previous result entered on 06/08/2020 09:58 ET Enterococcus faecalis Previous result entered on 06/07/2020 03:18 ET Microbiological testing to rule out the presence of possible pathogensis in progress.Aerobic Bacterial Culture: [id number] faecalis Flag: AIsolate 2 Staphylococcus aureus Flag: A . . . . . . .3Heavy growth -- Continued on next page --Patient: LOUISE Arnett Order: [id number] Page 2Culture: CULTURE WOUND Status: Final Most [...] Gram negative rodsAcinetobacter pittii Flag: APatient: LOUISE Arnett Order: [id number] Page 3Culture: CULTURE WOUND Status: Final ISOLATE 1 Enterococcus faecalisISOLATE 2 Staphylococcus aureusISOLATE 3 Acinetobacter pittii Isolate 1 Isolate 2 Isolate 3Antibiotic RAJENDRA Int RAJENDRA Int RAJENDRA IntUnits ug/mL ug/mL ug/mL Ampicillin/Sulbactam Cefepime Cefotaxime Ceftazidime Ceftriaxone Ciprofloxacin Clindamycin Erythromycin Gentamicin Levofloxacin Linezolid Meropenem Moxifloxacin Oxacillin Penicillin S S Quinupristin/Dalfopristin Rifampin Tetracycline Tobramycin Trimethoprim/Sulfa Vancomycin S S P1 Test performed by: [facility] #: [id number] [address] [place] [address] [phone] [facility] [id number] Director : Jarod Ratliff MD NPI #:Detective Sergeant : 06/08/20.0706.XMT.SENT REF 06/08/20.1018.XMT.SENT REF 06/09/20.0956.XMT.SENT REF 06/10/20.0944.XMT.SENT REF ID Date Data Source [id number] 05/14/2020 10:06:00 AM EST [place] ([facility]) Name Value Range Interpretation Code Description Data Chela rce(s) Supporting Document(s) Reported Physicians See Note Reported Physici ans [place] ([facility]) Note: Reported Physicians:Ordering: Chavez e, Nelson AAttending: MALINA JOCELYNConsulting: NO, PCPCopy To: Malina Nelson ID Date Data Source [id number] 05/14/2020 10:06:00 AM EST [place] ([facility]) Name Value Range Interpretation Code Description Data Chela rce(s) Supporting Document(s) T4 FREE 1.21 NG/DL T4 FREE [place] ([facility]) Note: Responsible Observer: () ID Date Data Source [id number] 05/14/2020 10:06:00 AM EST [place] ([facility]) Name Value Range Interpretation Code Description Data Chela rce(s) Supporting Document(s) Reported Physicians See Note Reported Physici ans [place] ([facility]) Note: Reported Physicians:Ordering: Chavez e, Nelson AAttending: MALINA JOCELYNConsulting: NO, PCPCopy To: Nelson Delarosa ID Date Data Source [id number] 05/14/2020 10:06:00 AM EST [place] ([facility]) Name Value Range Interpretation Code Description Data Chela rce(s) Supporting Document(s) CBC NO DIFF See Note CBC NO DIFF [place] ([facility]) Note: COMPLETE BLOOD COUNTResponsibl e Observer: (SJR) Hematocrit [Pure volume fraction] of Blood by Automated count 40 .5 % Below low normal HEMATOCRIT [place] ([facility]) Note: Responsible Observer: (SJR) Hemoglobin [Mass/volume] in Mixed venous blood by Oximetry 12.6 g/dL Below low normal HEMOGLOBIN [place] ([facility]) Note: Responsible Observer: (SJR) MCHC 31.1 g/dL MCHC [place] ([facility]) Note: Responsible Observer: (SJR) MCH 31.0 pg MCH [place] ([facility]) Note: Responsible Observer: (SJR) MCV 99.8 fL Above high normal MCV [place] ([facility]) Note: Responsible Observer: (SJR) MPV 10.3 fL MPV [place] ([facility]) Note: Responsible Observer: (SJR) Platelets [#/area] in Blood by Microscopy high power field 230 10\\^ 3/uL PLATELETS [place] ([facility]) Note: Responsible Observer: (SJR) RBC 4.06 10\\^6/uL Below low normal RBC [place] ([facility]) Note: Responsible Observer: (SJR) WBC 5.7 10\\^3/uL WBC [place] ([facility]) Note: Responsible Observer: (SJR) RDW 14.3 % RDW [place] ([facility]) Note: Responsible Observer: (SJR) ID Date Data Source [id number] 05/14/2020 10:06:00 AM EST [place] ([facility]) Name Value Range Interpretation Code Description Data Chela rce(s) Supporting Document(s) Reported Physicians See Note Reported Physici ans [place] ([facility]) Note: Reported Physicians:Ordering: Nelson Sommers AAttending: NELSON DELAROSAConsulting: NO, PCPCopy To: Nelson Delarosa ID Date Data Source [id number] 05/14/2020 10:06:00 AM EST [place] ([facility]) Name Value Range Interpretation Code Description Data Chela rce(s) Supporting Document(s) Cholesterol [Moles/volume] in Pericardial fluid 140 MG/DL CHOLESTEROL [place] ([facility]) Note: Responsible Observer: (CLD) CVE PANEL See Note CVE PANEL [place] ([facility]) Note: LIPID PANELResponsible Observe r: (CLD) LDL/HDL 1.75 LDL/HDL [place] ([facility]) Note: CVE RISK CHOL/HD L LDL/HDLMEN: 1/2 AVERAGE 3.43 1.00 AVERAGE 4.97 3.55 2X AVERAGE 9.55 6.25 3X AVERAGE 23.99 7.99WOMEN: 1/2 AVERAGE 3.27 1.47 AVERAGE 4.44 3.22 2X AVERAGE 7.05 5.03 3X AVERAGE 11.04 6.14Responsible Observer: (CLD) HDL 48 MG/DL HDL [place] ([facility]) Note: Responsible Observer: (CLD) Cholesterol in LDL [Mass/volume] in Serum or Plasma by Direct as say 84 mg/dL LDL [place] ([facility]) Note: Responsible Observer: (CLD) TRIGLYCERIDES 88 MG/DL TRIGLYCERIDES [place] ([facility]) Note: Responsible Observer: (CLD) RISK FACTOR 2.9 Below low normal RISK FACTOR [facility] ([facility]) Note: Responsible Observer: (CLD) ID Date Data Source [id number] 05/14/2020 10:06:00 AM EST [place] ([facility]) Name Value Range Interpretation Code Description Data Chela rce(s) Supporting Document(s) Reported Physicians See Note Reported Physic ans [place] ([facility]) Note: Reported Physicians:Ordering: Scott arnett Nelson AAttending: MALINA JOCELYNConsulting: NO, PCPCopy To: Nelson Delarosa ID Date Data Source [id number] 05/14/2020 10:06:00 AM EST [place] ([facility]) Name Value Range Interpretation Code Description Data Chela rce(s) Supporting Document(s) TSH 2.43 uIU/mL TSH [place] ([facility]) Note: Responsible Observer: () ID Date Data Source [id number] 05/14/2020 10:06:00 AM EST [place] ([facility]) Name Value Range Interpretation Code Description Data Chela rce(s) Supporting Document(s) Reported Physicians See Note Reported [facility] ans [place] ([facility]) Note: Reported Physicians:Ordering: Chavez e Nelson AAttending: MALINA, JOCELYNConsulting: NO, PCPCopy To: Stefania Delarosacelyn ID Date Data Source [id number] 05/14/2020 10:06:00 AM EST [place] ([facility]) Name Value Range Interpretation Code Description Data Chela rce(s) Supporting Document(s) A/G RATIO 1.2 A/G RATIO [place] ([facility]) Note: Responsible Observer: (CLD) AFR AMER GFR >60 mL/min AFR AMER GFR [place] ([facility]) Note: Male GFR Interprentation 20- 49 yrs [...] BCP) dye binding method 4.2 G/DL ALBUMIN [place] ([facility]) Note: Responsible Observer: (CLD) Egg donor age 70 yrs AGE [place] ([facility]) Note: Responsible Observer: (CLD) ALKALINE PHOS 80 U/L ALKALINE PHOS [place] ([facility]) Note: Responsible Observer: (CLD) Anion gap in Body fluid 10.0 mmol/L ANION GAP [place] ([facility]) Note: Responsible Observer: (CLD) BUN 17 MG/DL BUN [place] ([facility]) Note: Responsible Observer: (CLD) Calcium [Moles/volume] in Urine collected for unspecified durati on 9.4 MG/DL CALCIUM [place] ([facility]) Note: Responsible Observer: (CLD) BUN/CREAT 15 BUN/CREAT [place] ([facility]) Note: Responsible Observer: (CLD) Chloride [Moles/volume] in Serum, Plasma or Blood 104 mEq/L CHLORIDE [place] ([facility]) Note: Responsible Observer: (CLD) CO2 28 MEQ/L CO2 [place] ([facility]) Note: Responsible Observer: (CLD) COMPREHENSIVE METABOLIC PANEL See Note COMPRE HENSIVE METABOLIC PANEL [place] ([facility]) Note: COMPREHENSIVE METABOLIC PANELR esponsible Observer: (CLD) Creatinine [Moles/volume] in Vitreous fluid 1.1 MG/DL CREATININE [place] ([facility]) Note: Responsible Observer: (CLD) Glucose [Mass/volume] in Urine collected for unspecified duration 1 03 MG/DL GLUCOSE [place] ([facility]) Note: Responsible Observer: (CLD) Globulin [Mass/time] in 24 hour Urine 3.4 GM/DL Above hig h normal GLOBULIN [place] ([facility]) Note: Responsible Observer: (CLD) Potassium [Mass/volume] in Blood 4.4 mEq/L POT ASSIUM [place] ([facility]) Note: Responsible Observer: (CLD) NON-AA GFR >60 mL/min NON-AA GFR [place] ([facility]) Note: Responsible Observer: (CLD) SGOT/AST 12 U/L SGOT/AST [place] ([facility]) Note: Responsible Observer: (CLD) SGPT/ALT <5 U/L Below low normal SGPT/ALT [place] ([facility]) Note: Responsible Observer: (CLD) Sodium [Moles/volume] in Serum, Plasma or Blood 142 mEq/L SODIUM [place] ([facility]) Note: Responsible Observer: (CLD) TOTAL PROTEIN 7.6 G/DL TOTAL PROTEIN [place] ([facility]) Note: Responsible Observer: (CLD) TOTAL BILI <0.7 MG/DL TOTAL BILI [place] ([facility] [facility]) Note: Responsible Observer: (CLD) ID Date Data Source [id number] 05/14/2020 10:06:00 AM EST [place] ([facility]) Name Value Range Interpretation Code Description Data Chela rce(s) Supporting Document(s) Reported Physicians See Note Reported Physici ans [place] ([facility]) Note: Reported Physicians:Ordering: Nelson Sommers AAttending: NELSON DELAROSAConsulting: NO, PCPCopy To: Nelson Delarosa ID Date Data Source [id number] 05/14/2020 10:06:00 AM EST [place] ([facility]) Name Value Range Interpretation Code Description Data Chela rce(s) Supporting Document(s) Triiodothyronine (T3),Free 2.5 pg/mL Triiodoth yronine (T3),Free [place] ([facility]) Note: Responsible Observer: (rfl) ID Date Data Source [id number] 05/14/2020 10:06:00 AM [facility] Name Value Range Interpretation Code Description Data Chela rce(s) Supporting Document(s) Reported Physicians See Note Reported Physici ans [place] ([facility]) Note: Reported Physicians:Ordering: Nelson Sommers AAttending: NELSON DELAROSAConsulting: NO, PCPCopy To: Nelson Delarosa ID Date Data Source [id number] 05/14/2020 10:06:00 AM [facility] Name Value Range Interpretation Code Description Data Chela rce(s) Supporting Document(s) Levetiracetam, S <1.0 ug/mL Below low normal Levetiracetam , S [place] ([facility]) Note: Verified by repeat analysisThi s test was developed and its performance characteristicsdetermined by [facility]. It has not been cleared or approvedby the Food and Drug Administration.Responsible Observer: (rfl) ID Date Data Source [id number] 05/20/2020 07:59:00 AM [facility] Name Value Range Interpretation Code Description Data Chela rce(s) Supporting Document(s) Levetiracetam [Mass/volume] in Serum or Plasma <1.0 ug/mL 10.0-40.0 L [facility] Verified by repeat analysisThis test was developed and its performance characteristicsdetermined by [facility]. It has not been cleared or approvedby the Food and Drug Administration. ID Date Data Source [id number] 05/15/2020 10:06:00 AM [facility] Name Value Range Interpretation Code Description Data Chela rce(s) Supporting Document(s) Triiodothyronine (T3) Free [Mass/volume] in Serum or Plasma 2.5 pg/ mL 2.0-4.4 [facility] ID Date Data Source [id number] 05/14/2020 11:23:00 AM [facility] Name Value Range Interpretation Code Description Data Chela rce(s) Supporting Document(s) Thyrotropin [Units/volume] in Serum or Plasma by Detec tion limit <= 0.05 mIU/L 2.43 uIU/mL 0.47 - 5.01 [facility] ID Date Data Source [id number] 05/14/2020 11:23:00 AM [facility] Name Value Range Interpretation Code Description Data Chela rce(s) Supporting Document(s) Thyroxine (T4) free index in Serum or Plasma by calculation 1.21 NG/DL 0.93 - 1.70 [facility] ID Date Data Source [id number] 05/14/2020 11:11:00 AM [facility] Name Value Range Interpretation Code Description Data Chela rce(s) Supporting Document(s) [facility] Cholesterol [Mass/volume] in Serum or Plasma 140 MG/DL 131 - 200 [facility] Deprecated Triglyceride [Mass/volume] in Serum or Plasma 88 MG/DL 3 5 - 160 [facility] HDL 48 MG/DL 29 - 86 [facility] Cholesterol in LDL [Mass/volume] in Serum or Plasma by Direc t assay 84 mg/dL 65 - 175 [facility] Cholesterol.total/Cholesterol in HDL [Mass Ratio] in Serum o r Plasma 2.9 3.4 - 4.9 L [facility] LDL/HDL 1.75 1.00 - 3.55 [facility] CVE RISK CHOL/HDL LDL/HDLMEN: 1/2 AVERAGE 3.43 1.00 AVERAGE 4.97 3.55 2X AVERAGE 9.55 6.25 3X AVERAGE 23.99 7.99WOMEN: 1/2 AVERAGE 3.27 1.47 AVERAGE 4.44 3.22 2X AVERAGE 7.05 5.03 3X AVERAGE 11.04 6.14 ID Date Data Source [id number] 05/14/2020 11:11:00 AM [facility] Name Value Range Interpretation Code Description Data Chela rce(s) Supporting Document(s) COMPREHENSIVE METABOLIC PANEL [facility] COMPREHENSIVE METABOLIC PANEL Sodium [Moles/volume] in Serum or Plasma 142 mEq/L 134 - 153 [facility] Potassium [Moles/volume] in Serum or Plasma 4.4 mEq/L 3.6 - 5.0 [facility] Chloride [Moles/volume] in Serum or Plasma 104 mEq/L 98 - 107 [facility] Carbon dioxide, total [Moles/volume] in Serum or Plasma 28 MEQ/L 22 - 30 [facility] Glucose [Mass/volume] in Serum or Plasma 103 MG/DL 65 - 110 [facility] BUN 17 MG/DL 7 - 21 [facility] al Creatinine [Mass/volume] in Serum or Plasma 1.1 MG/DL 0.7 - 1.5 [facility] BUN/CREAT 15 8 - 27 [facility] Protein [Mass/volume] in Serum or Plasma 7.6 G/DL 6.3 - 8.2 [facility] Albumin [Mass/volume] in Serum or Plasma 4.2 G/DL 3.9 - 5.0 [facility] Globulin [Mass/volume] in Serum by calculation 3.4 GM/DL 2.4 - 3.2 H [facility] A/G RATIO 1.2 0.8 - 2.0 [facility] Calcium [Mass/volume] in Serum or Plasma 9.4 MG/DL 8.4 - 10.2 [facility] Bilirubin.total [Mass/volume] in Serum or Plasma <0.7 MG/DL 0.2 - 1.3 [facility] Alkaline phosphatase [Enzymatic activity/volume] in Serum or Plasma 80 U/L 38 - 126 [facility] Aspartate aminotransferase [Enzymatic activity/volume] in Serum or Plasma 12 U/L 5 - 40 [facility] Alanine aminotransferase [Enzymatic activity/volume] in Seru m or Plasma <5 U/L 7 - 56 L [facility] Anion gap 3 in Serum or Plasma 10.0 mmol/L 8.0 - 16.0 [facility] AGE 70 yrs [facility] NON-AA GFR >60 mL/min [facility] ital AFR AMER GFR >60 mL/min [facility] Male GFR In terprentation 20-49 [...] >32 mL/min Normal ID Date Data Source [id number] 05/14/2020 10:23:00 AM EST [facility] Name Value Range Interpretation Code Description Data Chela rce(s) Supporting Document(s) CBC NO DIFF [facility] ital COMPLETE BLOOD COUNT Leukocytes [#/volume] in Blood by Automated count 5.7 10^3/uL 4.2 - 1 1.0 [facility] Erythrocytes [#/volume] in Blood by Automated count 4.06 10^6/uL 4. 50 - 6.30 L [facility] Hemoglobin [Mass/volume] in Blood 12.6 g/dL 14.0 - 16.0 L [facility] Hematocrit [Volume Fraction] of Blood by Automated count 40.5 % 4 1.0 - 51.0 L [facility] Erythrocyte mean corpuscular volume [Entitic volume] by Auto mated count 99.8 fL 80.0 - 94.0 H [facility] Erythrocyte mean corpuscular hemoglobin [Entitic mass] by Automated count 31.0 pg 27.0 - 34.0 [facility] Erythrocyte mean corpuscular hemoglobin concentration [Mass/volume] by Automated count 31.1 g/dL 31.0 - 36.0 [facility] Erythrocyte distribution width [Ratio] by Automated count 14.3 % 11.5 - 14.8 [facility] Platelets [#/volume] in Blood by Automated count 230 10^3/uL 150 - 45 0 [facility] Platelet mean volume [Entitic volume] in Blood by Automated count 10.3 fL 7.4 - 10.4 [facility] ID Date Data Source [id number] 05/06/2020 01:02:00 PM EST [place] ([facility]) Name Value Range Interpretation Code Description Data Chela rce(s) Supporting Document(s) Reported Physicians See Note Reported Physici ans [place] ([facility]) Note: Reported Physicians:Ordering: Nelson Sommers AAttending: NELSON DELAROSAReferring: NELSON DELAROSAConsulting: NO, PCPCopy To: Nelson Delarosa ID Date Data Source [id number] 05/06/2020 01:02:00 PM EST [place] ([facility]) Name Value Range Interpretation Code Description Data Chela rce(s) Supporting Document(s) CULTURE WOUND See Note CULTURE WOUND [place] ([facility]) Note: _CULTURE WOUND_ [id number] DATE/TIME: 05/12/2020 11:06Culture: CULTURE WOUND Status: FinalIsolate [...] 05/10/2020 10:00 ET Staphylococcus aureusAerobic Bacterial Culture: [id number] aureus Flag: AIsolate 2 Acinetobacter lwoffii Flag: A . . . . . . .8Moderate growth Previous result entered on 05/11/2020 13:35 ET -- Continued on next page --Patient: LOUISE Arnett Order: [id number] Page 2Culture: CULTURE WOUND Status: Final ====Gram negative rods Previous result entered on 05/10/2020 10:00 ET Gram negative rodsAcinetobacter lwoffii Flag: APatient: LOUISE Arnett Order: [id number] Page 3Culture: CULTURE WOUND Status: Final =====ISOLATE [...] Vancomycin S S P1 Test performed by: [facility] #: [id number] [address] [place] [address] [id number] [facility] [id number] Director : Jarod Ratliff MD NPI #:Detective Sergeant : 05/11/20.0615.XMT.SENT REF 05/11/20.1546.XMT.SENT REF 05/12/20.1210.XMT.SENT REF ID Date Data Source [id number] 05/12/2020 12:09:00 PM EST [facility] Name Value Range Interpretation Code Description Data Chela rce(s) Supporting Document(s) CULTURE WOUND [facility] _CULTURE WOUND_$$[id number] DATE/TIME: 05/12/2020 11:06Culture: CULTURE WOUND Status: FinalIsolate [...] 05/10/2020 10:00 ET Staphylococcus aureusAerobic Bacterial Culture: [id number] aureus Flag: AIsolate 2 Acinetobacter lwoffii Flag: A . . . . . . .8Moderate growth Previous result entered on 05/11/2020 13:35 ET -- Continued on next page --Patient: LOUISE Arnett Order: [id number] Page 2Culture: CULTURE WOUND Status: Final ====Gram negative rods Previous result entered on 05/10/2020 10:00 ET Gram negative rodsAcinetobacter lwoffii Flag: APatient: LOUISE Arnett Order: [id number] Page 3Culture: CULTURE WOUND Status: Final ====ISOLATE [...] Vancomycin S S P1 [facility] #: [id number] [address] [phone] [facility] [id number] Director : Jarod Ratliff MD NPI #:Detective Sergeant : 05/11/20.0615.XMT.SENT REF 05/11/20.1546.XMT.SENT REF 05/12/20.1210.XMT.SENT REF Procedure Social History Code Duration Value Status Description Data Source(s ) Smoking 03/01/2021 12:00:00 AM EDT Patient is a former smoker completed Patient is a former smoker [facility] ([facility]) Smoking 12/25/2020 12:00:00 AM EDT Patient has never smoked co mpleted Patient has never smoked [facility] ([facility]) Smoking 07/24/2020 12:00:00 AM EST Former Smoker completed Former Smoker eCW1 ([facility]) Smoking 07/24/2020 12:00:00 AM EST Former Smoker completed Former Smoker eCW1 ([facility]) Smoking 07/24/2020 12:00:00 AM EST Former Smoker completed Former Smoker eCW1 ([facility]) Smoking 07/24/2020 12:00:00 AM EST Former Smoker completed Former Smoker eCW1 ([facility]) Smoking 07/24/2020 12:00:00 AM EST Former Smoker completed Former Smoker eCW1 ([facility]) Smoking 07/24/2020 12:00:00 AM EST Former Smoker completed Former Smoker eCW1 ([facility]) Smoking 07/24/2020 12:00:00 AM EST Former Smoker completed Former Smoker eCW1 ([facility]) Smoking 07/24/2020 12:00:00 AM EST Former Smoker completed Former Smoker eCW1 ([facility]) Vital Signs ID Date Data Source UNK Name Value Range Interpretation Code Description Data Source(s) Body height 66 [in_i] 66 [in_i] [facility] 5'6" Heart rate 81 /min 81 /min [facility] Systolic blood pressure--sitting 120 mm[Hg] 120 mm[Hg] [facility] ([facility]) LA, large cuff Diastolic blood pressure--sitting 82 mm[Hg] 82 mm[Hg] [facility] ([facility]) LA, large cuff Body height 66 [in_i] 66 [in_i] [facility] ([facility]) 5'6" Systolic blood pressure--sitting 106 mm[Hg] 106 mm[Hg] [facility] ([facility]) Ra, large cuff Diastolic blood pressure--sitting 60 mm[Hg] 60 mm[Hg] [facility] ([facility]) Ra, large cuff Heart rate 78 /min 78 /min [facility] ([facility]) Body height 66 [in_i] 66 [in_i] [facility] 5'6" Systolic blood pressure--sitting 100 mm[Hg] 100 mm[Hg] [facility] ([facility]) CBP, large cuff/LA Diastolic blood pressure--sitting 63 mm[Hg] 63 mm[Hg] [facility] ([facility]) CBP, large cuff/LA Body height 66 [in_i] 66 [in_i] [facility]) 5'6" Heart rate 75 /min 75 /min [facility]) Systolic blood pressure--sitting 113 mm[Hg] 113 mm[Hg] [facility] ([facility]) CBP, large cuff/LA Diastolic blood pressure--sitting 73 mm[Hg] 73 mm[Hg] [facility] ([facility]) CBP, large cuff/LA Body height 70 [in_i] [...] MD) Heart rate 88 /min 88 /min MEDENT (Neymar Hilario MD) Systolic blood pressure 93 mm[Hg] 93 mm[Hg] [facility] Diastolic blood pressure 53 mm[Hg] 53 mm[Hg] [facility] Body temperature 36.67 Oly 36.67 Oly [facility] Respiratory rate 20 /min 20 /min [facility] Oxygen saturation in Arterial blood by Pulse oximetry 96 % 96 % [facility] Heart rate 75 /min 75 /min [facility] Body weight 93.759 kg 93.759 kg [facility] Inhaled oxygen concentration 21 % 21 % [place] ([facility]) Inhaled oxygen flow rate 0 L/min 0 L/min [place] ([facility]) Systolic blood pressure 132 mm[Hg] 132 mm[Hg] G [place] ([facility]) Diastolic blood pressure 78 mm[Hg] 78 mm[Hg] [place] ([facility]) Heart rate 75 /min 75 /min [place] ([facility]) Respiratory rate 24 /min 24 /min [place] ([facility]) Body temperature 95.6 [degF] 95.6 [degF] [place] ([facility]) Oxygen saturation in Arterial blood by Pulse oximetry 95 % 95 % [place] ([facility]) Respiratory rate 24 /min 24 /min [place] ([facility]) Systolic blood pressure 126 mm[Hg] 126 mm[Hg] G [place] ([facility]) Diastolic blood pressure 72 mm[Hg] 72 mm[Hg] [place] ([facility]) Heart rate 80 /min 80 /min [place] [facility] Body temperature 97.2 [degF] 97.2 [degF] [facility] Body weight 200 [lb_av] 200 [lb_av] [place] ([facility]) Oxygen saturation in Arterial blood by Pulse oximetry 98 % 98 % [place] ([facility]) Inhaled oxygen flow rate 0 L/min 0 L/min [place] ([facility]) Inhaled oxygen concentration 21 % 21 % [place] ([facility]) Body weight 201 [lb_av] 201 [lb_av] eCW1 ([facility]) Body weight kg eCW1 ([facility]) Body height [in_i] eCW1 ([facility]) Body mass index (BMI) [Ratio] 31.95 kg/m2 31.95 kg/m2 W1 ([facility]) Heart rate 68 /min 68 /min eCW1 ([facility]) Respiratory rate 18 /min 18 /min eCW1 ([facility]) Body temperature 98.4 [degF] 98.4 [degF] eCW1 ( [facility]) Systolic blood pressure 154 mm[Hg] 154 mm[Hg] e CW1 ([facility]) Diastolic blood pressure 75 mm[Hg] 75 mm[Hg] eCW1 ([facility]) Body height [in_i] eCW1 ([facility]) Body weight [lb_av] eCW1 ([facility]) Body mass index (BMI) [Ratio] 28.93 kg/m2 28.93 kg/m2 W1 ([facility]) Body temperature 96.5 [degF] 96.5 [degF] eCW1 ( [facility]) Heart rate 101 /min 101 /min eCW1 ([facility]) Respiratory rate 18 /min 18 /min eCW1 ([facility]) Systolic blood pressure 142 mm[Hg] 142 mm[Hg] e CW1 ([facility]) Diastolic blood pressure 83 mm[Hg] 83 mm[Hg] eCW1 ([facility]) Body height 70 [in_i] 70 [in_i] MEDENT (Neymar Hilario MD) 5'10" Body temperature 99.9 [degF] 99.9 [degF] MEDENT (Neymar Hilario MD) Heart rate 108 /min 108 /min [facility] (Neymar Hilario MD) Systolic blood pressure 125 mm[Hg] 125 mm[Hg] M EDENT (Neymar Hilario MD) Diastolic blood pressure 88 mm[Hg] 88 mm[Hg] [facility] (Neymar Hilario MD) Oxygen saturation in Arterial blood by Pulse oximetry 96 % 96 % [facility] (Neymar Hilario MD) Respiratory rate 16 /min 16 /min MED[facility] ( Neymar Hilario MD) Body weight [lb_av] eCW1 ([facility]) Systolic blood pressure 141 mm[Hg] 141 mm[Hg] e CW1 ([facility]) Diastolic blood pressure 74 mm[Hg] 74 mm[Hg] eCW1 ([facility]) Body height [in_i] eCW1 ([facility]) Heart rate 117 /min 117 /min eCW1 ([facility]) Respiratory rate 18 /min 18 /min eCW1 ([facility]) Body temperature 99.6 [degF] 99.6 [degF] eCW1 ( [facility]) Systolic blood pressure 118 mm[Hg] 118 mm[Hg] G [place] ([facility]) Diastolic blood pressure 68 mm[Hg] 68 mm[Hg] [place] ([facility]) Heart rate 97 /min 97 /min [place] ([facility]) Respiratory rate 24 /min 24 /min [place] ([facility]) Body temperature 97.6 [degF] 97.6 [degF] [place] A[place] ([facility]) Oxygen saturation in Arterial blood by Pulse oximetry 98 % 98 % [place] ([facility]) Diastolic blood pressure 78 mm[Hg] 78 mm[Hg] [place] ([facility]) Systolic blood pressure 130 mm[Hg] 130 mm[Hg] [facility] ([facility]) Heart rate 90 /min 90 /min [place] ([facility]) Respiratory rate 24 /min 24 /min [place] ([facility]) Body temperature 97.3 [degF] 97.3 [degF] [place] ([facility]) Oxygen saturation in Arterial blood by Pulse oximetry 92 % 92 % [place] ([facility]) Inhaled oxygen flow rate 0 L/min 0 L/min [place] ([facility]) Inhaled oxygen concentration 21 % 21 % [place] ([facility]) Systolic blood pressure 124 mm[Hg] 124 mm[Hg] [facility] ([facility]) Diastolic blood pressure 76 mm[Hg] 76 mm[Hg] [place] ([facility]) Heart rate 95 /min 95 /min [place] ([facility]) Respiratory rate 24 /min 24 /min [place] ([facility]) Oxygen saturation in Arterial blood by Pulse oximetry 99 % 99 % [place] ([facility]) Body temperature 97.8 [degF] 97.8 [degF] [place] ([facility]) Inhaled oxygen flow rate 0 L/min 0 L/min [place] ([facility]) Inhaled oxygen concentration 21 % 21 % [place] ([facility]) Systolic blood pressure 130 mm[Hg] 130 mm[Hg] [facility] ([facility]) L calf measurement 47 cm, L foot 31 cm, and R calf 37 cm , L foot 26 cm Diastolic blood pressure 80 mm[Hg] 80 mm[Hg] [place] ([facility]) L calf measurement 47 cm, L foot 31 cm, and R calf 37 cm , L foot 26 cm Heart rate 99 /min 99 /min [place] ([facility]) L calf measurement 47 cm, L foot 31 cm, and R calf 37 cm , L foot 26 cm Respiratory rate 24 /min 24 /min [place] ([facility]) L calf measurement 47 cm, L foot 31 cm, and R calf 37 cm , L foot 26 cm Body temperature 97.6 [degF] 97.6 [degF] [facility] ([facility]) L calf measurement 47 cm, L foot 31 cm, and R calf 37 cm , L foot 26 cm Oxygen saturation in Arterial blood by Pulse oximetry 98 % 98 % [place] ([facility]) L calf measurement 47 cm, L foot 31 cm, and R calf 37 cm , L foot 26 cm Inhaled oxygen flow rate 0 L/min 0 L/min [place] ([facility]) L calf measurement 47 cm, L foot 31 cm, and R calf 37 cm , L foot 26 cm Inhaled oxygen concentration 21 % 21 % [place] ([facility]) L calf measurement 47 cm, L foot 31 cm, and R calf 37 cm , L foot 26 cm Heart rate 78 /min 78 /min [place] ([facility]) Measured calf circumferance. Left 15.5 i n in diameter. Right, 20 inches in diameter. TS Respiratory rate 22 /min 22 /min [place] ([facility]) Measured calf circumferance. Left 15.5 i n in diameter. Right, 20 inches in diameter. TS Body temperature 96.8 [degF] 96.8 [degF] [facility]) Measured calf circumferance. Left 15.5 i n in diameter. Right, 20 inches in diameter. TS Oxygen saturation in Arterial blood by Pulse oximetry 94 % 94 % [place] ([facility]) Measured calf circumferance. Left 15.5 i n in diameter. Right, 20 inches in diameter. TS Inhaled oxygen flow rate 0 L/min 0 L/min [place] ([facility]) Measured calf circumferance. Left 15.5 i n in diameter. Right, 20 inches in diameter. TS Inhaled oxygen concentration 21 % 21 % [facility]) Measured calf circumferance. Left 15.5 i n in diameter. Right, 20 inches in diameter. TS Systolic blood pressure 122 mm[Hg] 122 mm[Hg] G [facility] ([facility]) Measured calf circumferance. Left 15.5 i n in diameter. Right, 20 inches in diameter. TS Diastolic blood pressure 70 mm[Hg] 70 mm[Hg] [place] ([facility]) Measured calf circumferance. Left 15.5 i n in diameter. Right, 20 inches in diameter. TS Patient Treatment Plan of Care Planned Activity Planned Date Details Description Data Source (s) quetiapine 100 MG Oral Tablet [Seroquel] 08/03/2020 12:00:00 [facility]) Acetaminophen 325 MG / Hydrocodone Bitartrate 5 MG Ora l Tablet 08/03/2020 12:00:00 AM [facility]) gabapentin 300 MG Oral Capsule 07/28/2020 12:00:00 AM [facility]) atorvastatin 20 MG Oral Tablet 07/28/2020 12:00:00 AM [facility]) Senna 8.6 MG Oral Tablet 07/28/2020 12:00:00 AM [facility]) Acetaminophen 325 MG Oral Tablet 07/28/2020 12:00:00 [facility]) Aspercreme Lidocaine 4% External Patch 07/28/2020 12:00:00 AM [facility]) Citalopram 20 MG Oral Tablet 07/28/2020 12:00:00 [facility]) duloxetine 30 MG Delayed Release Oral Capsule [Cymbalt a] 07/28/2020 12:00:00 AM [facility]) Diltiazem Hydrochloride 30 MG Oral Tablet 07/28/2020 12:00:00 AM T [place] ([facility]) Furosemide 20 MG Oral Tablet [Lasix] 07/28/2020 12:00:00 [facility]) Pramipexole dihydrochloride 1 MG Oral Tablet [Mirapex] 07/28/2020 12:00:00 [facility]) pantoprazole 40 MG Delayed Release Oral Tablet 07/28/2020 12:00:00 [facility]) quetiapine 50 MG Oral Tablet 07/28/2020 12:00:00 AM [facility]) Carboxymethylcellulose Sodium 5 MG/ML Ophthalmic Solut ion 07/28/2020 12:00:00 AM [facility]) rivaroxaban 20 MG Oral Tablet [Xarelto] 07/28/2020 12:00:00 AM [facility]) gabapentin 600 MG Oral Tablet 07/28/2020 12:00:00 AM [facility]) Senna 8.6 MG Oral Tablet 07/21/2020 12:00:00 AM [facility]) gabapentin 300 MG Oral Capsule 07/20/2020 12:00:00 AM [facility]) rivaroxaban 20 MG Oral Tablet [Xarelto] 07/20/2020 12:00:00 AM [facility]) Acetaminophen 325 MG / Hydrocodone Bitartrate 5 MG Ora l Tablet 07/20/2020 12:00:00 AM [facility]) atorvastatin 20 MG Oral Tablet 07/20/2020 12:00:00 AM [facility]) Levofloxacin 500 MG Oral Tablet [Levaquin] 06/12/2020 12:00:[address] [place] ([facility]) Diltiazem Hydrochloride 30 MG Oral Tablet 06/04/2020 12:00:00 AM ES T [place] ([facility]) Acetaminophen 325 MG Oral Tablet 06/04/2020 12:00:00 AM [facility]) Aspercreme Lidocaine 4% External Patch 06/04/2020 12:00:00 AM [facility]) Citalopram 20 MG Oral Tablet 06/04/2020 12:00:00 AM [facility]) Pramipexole dihydrochloride 1 MG Oral Tablet [Mirapex] 06/04/2020 12:00:00 AM EST [place] ([facility]) Acetaminophen 325 MG / Hydrocodone Bitartrate 5 MG Ora l Tablet 06/04/2020 12:00:00 AM EST [place] ([facility]) quetiapine 50 MG Oral Tablet 06/04/2020 12:00:00 AM EST [place] ([facility]) Furosemide 20 MG Oral Tablet [Lasix] 06/04/2020 12:00:00 AM EST [place] ([facility]) gabapentin 300 MG Oral Capsule 06/04/2020 12:00:00 AM EST [place] ([facility]) duloxetine 30 MG Delayed Release Oral Capsule [Cymbalt a] 06/04/2020 12:00:00 AM EST [place] ([facility]) pantoprazole 40 MG Delayed Release Oral Tablet 06/04/2020 12:00:00 AM EST [place] ([facility]) atorvastatin 20 MG Oral Tablet [Lipitor] 06/04/2020 12:00:00 AM EST [place] ([facility]) Carboxymethylcellulose Sodium 5 MG/ML Ophthalmic Solut ion 06/04/2020 12:00:00 AM EST [place] ([facility]) Senna 8.6 MG Oral Tablet 06/04/2020 12:00:00 AM EST [place] ([facility]) rivaroxaban 20 MG Oral Tablet [Xarelto] 06/04/2020 12:00:00 AM EST [place] [facility]) Mupirocin 0.02 MG/MG Topical Ointment 06/04/2020 12:00:00 AM EST [place] ([facility]) pantoprazole 40 MG Delayed Release Oral Tablet 05/25/2020 12:00:00 AM EST [place] ([facility]) Amoxicillin 875 MG / Clavulanate 125 MG Oral Tablet 05/06/20 20 12:00:00 AM EST [place] [facility]) Mupirocin 0.02 MG/MG Topical Ointment 05/06/2020 12:00:00 AM EST [place] ([facility]) Acetaminophen 325 MG / Hydrocodone Bitartrate 5 MG Ora l Tablet 04/28/2020 12:00:00 AM EST [place] ([facility]) quetiapine 50 MG Oral Tablet 04/06/2020 12:00:00 AM EST [place] ([facility]) pantoprazole 40 MG Delayed Release Oral Tablet [Proton ix] 04/06/2020 12:00:00 AM EST [place] ([facility]) Pramipexole dihydrochloride 1 MG Oral Tablet [Mirapex] 04/06/2020 12:00:00 AM EST [place] ([facility]) Melatonin 5 MG Oral Tablet 04/06/2020 12:00:00 AM EST [place] ([facility]) atorvastatin 20 MG Oral Tablet [Lipitor] 04/06/2020 12:00:00 AM EST [place] ([facility]) Furosemide 20 MG Oral Tablet [Lasix] 04/06/2020 12:00:00 AM EST [place] ([facility]) Levetiracetam 750 MG Oral Tablet [Keppra] 04/06/2020 12:00:00 AM [facility] [place] ([facility]) gabapentin 300 MG Oral Capsule 04/06/2020 12:00:00 AM EST [place] ([facility]) Diltiazem Hydrochloride 30 MG Oral Tablet 04/06/2020 12:00:00 AM [facility] ([facility]) duloxetine 30 MG Delayed Release Oral Capsule [Cymbalt a] 04/06/2020 12:00:00 AM EST [place] ([facility]) Citalopram 20 MG Oral Tablet 04/06/2020 12:00:00 AM EST [place] ([facility]) buspirone hydrochloride 5 MG Oral Tablet 04/06/2020 12:00:00 AM EST [place] [facility]) Senna 8.6 MG Oral Tablet 04/06/2020 12:00:00 AM EST [place] ([facility]) rivaroxaban 20 MG Oral Tablet [Xarelto] 04/06/2020 12:00:00 AM EST [place] ([facility]) LUIS M Elastic Bandage 4" Miscellaneous 04/06/2020 12:00:00 AM EST [place] ([facility]) Aspercreme Lidocaine 4% External Patch 04/06/2020 12:00:00 AM EST [place] ([facility]) Acetaminophen 325 MG Oral Tablet 04/06/2020 12:00:00 AM EST [place] ([facility]) Carboxymethylcellulose Sodium 5 MG/ML Ophthalmic Solut ion 04/06/2020 12:00:00 AM EST [place] ([facility]) Acetaminophen 325 MG / Hydrocodone Bitartrate 5 MG Ora l Tablet 04/06/2020 12:00:00 AM EST [place] ([facility]) Carboxymethylcellulose Sodium 5 MG/ML Ophthalmic Solut ion 04/06/2020 12:00:00 AM EST [place] ([facility]) Acetaminophen 325 MG / Hydrocodone Bitartrate 5 MG Ora l Tablet 03/30/2020 12:00:00 AM EST [place] ([facility]) LUIS M Elastic Bandage 4" Miscellaneous 03/16/2020 12:00:00 AM EDT [place] ([facility]) Acetaminophen 325 MG / Hydrocodone Bitartrate 5 MG Ora l Tablet 03/04/2020 12:00:00 AM EDT [place] ([facility]) lidocaine (ASPERCREME) 4 % [facility] 09/19/2019 12:00:00 AM EDT [facility] Ondansetron 4 MG Disintegrating Oral Tablet 09/18/2019 12:00:00 AM EDT [facility] Furosemide 20 MG Oral Tablet [Lasix] 08/05/2019 12:00:00 AM EDT [place] ([facility]) carvedilol 12.5 MG Oral Tablet [facility] sennosides, SKILLED NURSING 8.6 MG Oral Tablet [facility] Oxycodone Hydrochloride 5 MG Oral Tablet [facility] Omeprazole 20 MG Delayed Release Oral Capsule [facility] Pramipexole dihydrochloride 1 MG Oral Tablet [Mirapex] [facility] mineral oil external liquid [facility] Magnesium Hydroxide 80 MG/ML Oral Suspension [facility] Melatonin [address] [facility] Levetiracetam 750 MG Oral Tablet [facility] Sodium Phosphate, Dibasic 35.5 MG/ML / S odium Phosphate, Monobasic 96.4 MG/ML [facility] Bisacodyl 10 MG Rectal Suppository [facility] buspirone hydrochloride 5 MG Oral Tablet [facility] Acetaminophen 325 MG Oral Tablet [facility]
[2021-03-22 17:25] LABS: INR 1.87; PROTHROMBIN TIME 21.9 SECONDS (12.7-14.5)
[2021-03-22 17:26] LABS: PARTIAL THROMBOPLASTIN TIME 54.5 SECONDS (25.9-37.0)
[2021-03-22 17:33] LABS: RSV AMPLIFICATION NEGATIVE (NEGATIVE)
[2021-03-22] MEDS ORDERED: NOREPINEPHRINE BITARTRATE 16 MG in D5W 484 ML IV SCH ×2 (17:35→20:40)
--- NOTE | 2021-03-22 18:07 | REPVR ---
PROCEDURE INFORMATION: Exam: CT Abdomen And Pelvis Without Contrast Exam date and time: 03/22/2021 4:50 PM Age: 70 years old Clinical indication: Other: Renal failure TECHNIQUE: Imaging protocol: Computed tomography of the abdomen and pelvis without contrast. Radiation optimization: All CT scans at this facility use at least one of these dose optimization techniques: automated exposure control; mA and/or kV adjustment per patient size (includes targeted exams where dose is matched to clinical indication); or iterative reconstruction. COMPARISON: CT ABD PELVIS W/O CONTRAST 09/29/2020 9:16 AM FINDINGS: Lungs: Atelectasis is present in the dependent portions of the lungs. Liver: Noncontrast liver shows no obvious lesion. Gallbladder and bile ducts: Gallbladder is present and shows no evidence of gallstone. Pancreas: Noncontrast pancreas shows no obvious mass or adjacent fluid. Spleen: Noncontrast spleen shows no obvious focal deformity. Adrenal glands: Adrenal glands are normal in appearance. Kidneys and ureters: Kidneys show no stone or hydronephrosis. Stomach and bowel: Extremely limited study secondary to gross patient motion, scanning of the patient with the arms at the sides of the body, and absence of enteric and IV contrast. No evidence of small bowel obstruction. No evidence of acute diverticulitis. Appendix: Appendix is not seen. No RLQ inflammation to suggest appendicitis. Intraperitoneal space: No pneumoperitoneum. Vasculature: Atherosclerotic change present in the aorta, without aneurysm. Lymph nodes: No enlarged lymph nodes. Urinary bladder: Urinary bladder appears normal. Reproductive: No overt enlargement of the prostate gland. Bones/joints: Fixation hardware in the proximal right femur is present. No destructive osseous abnormality. Soft tissues: Unremarkable. IMPRESSION: 1. No evidence of obstructive uropathy. No evidence of abnormal urinary bladder distension or passive hydronephrosis. 2. Severely limited exam as outlined above Electronically signed by: Terrence Adame On 03/22/2021 18:06:44 PM
--- NOTE | 2021-03-22 18:33 | ECGEPIP ---
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
[2021-03-22] MEDS ORDERED: HEPARIN SOD (PORCINE) 5000UNITS/ML 1ML VIAL/SYRINGE SC SCH (18:50)
--- OUTSIDE RECORDS SUMMARY | 2021-03-22 19:02 | CCD ---
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 Name Role Phone NO, PCP Unavailable Unavailable [...] Raza Mcclure MD Unavailable Unavailable Malina, Raza Mcclrue MD Unavailable Unavailable Malina, Raza Mcclure MD Unavailable Unavailable Mailna, Raza Mcclure MD Unavailable Unavailable Malina, Raza [...] Indra Serenity Tomlin MD Unavailable Unavaila ble MigeedIndra MD [...] Indra Tomlin MD Unavailable Unavaila ble Migeed, Inrda Tomlin MD Unavailable Unavaila ble Migeed, Indra Tomlin MD Unavailable Unavaila ble Migeed, Indra Tomlin MD Unavailable Unavaila ble Migeed, Indra Tomlin MD Unavailable Unavaila ble Migeed, Indra Tomlin MD Unavailable Unavaila ble Migeed, Indar Tomlin MD Unavailable Unavaila ble Migeed, Indra [...] by Article 27-F of the [facility] Public Health law. If you continue you may have access to information: Regarding HIV / AIDS; Provided by facilities licensed or operated by the [facility] Office of Mental Health; or Provided by the [facility] Office for People With Developmental Disabilities. If such information is present, then the following [facility] mandated warning applies: This information [...] law may result in a fine or penitentiary sentence or both. A general authorization for the release of medical or other information is NOT sufficient authorization for further disc losure. Allergies and Adverse Reactions Type Description Substance Reaction Status Data Source(s ) No Known Drug Allergies No Known Drug Allergies [facility] Drug Allergy Drug Allergy NKDA [facility] ([facility]) Family History Family Member Name Family Member Gender Family Member Status Date o f Status Description Data Source(s) Unknown Male Problem [facility] ([facility], ) () Encounters Encounter Providers Location Date Indications Data Source(s ) Outpatient Attender: MARIO CHRISTINA Main Office 03/01/2021 1 1:15:00 AM EDT [facility] ([facility]) Outpatient Attender: MARIO CHRISTINA Main Office 01/25/2021 1 2:45:00 PM EDT [facility] ([facility]) Outpatient Attender: SOUMYA DUPONT MD Main Office 12/25/2020 12:15:00 PM EDT [facility] ([facility]) Outpatient Attender: SOUMYA DUPONT MD Main Office 11/13/2020 08:00:00 AM EDT [facility] ([facility]) [place] [address] [facility] [facility] [address] 09/01/2020 12:00:00 AM EDT eCW1 ([facility]) Outpatient Attender: Nelson Delarosa MDConsultant: PCP NO 08/13/2020 02:20:00 PM EDT - 08/13/2020 03:20:00 PM EDT [facility] [place] [address] [facility] [facility] [address] 08/07/2020 12:00:00 AM EST eCW1 ([facility]) Inpatient Attender: Nabor Sylvester MDAdmitter: Nabor ratliff MD [id number] 08/06/2020 11:14:10 AM EST - 08/08/2020 02:57:00 PM EST [facility] Patient discharged. <td ID="encounterTypeDescriptionID0">[Pa tient Encounter]</td><td>Nelson Delarosa MD</td><td></td><td>08/04/2020</td><td>08/03/2020 4:37PM</td><td>08/03/2020 11:59PM</td><td></td>Outpatient Attender: Nelson Delarosa MD 0 08/03/2020 04:37:00 PM EST - 08/03/2020 11:59:00 PM EST [place] ([facility]) Outpatient<td ID="encounterTypeDescripti onID0">EXTENDED VISIT</td><td>Nelson Delarosa MD</td><td>[facility],</td><td>08/03/2020</td><td>1:05PM</td><td>2:05PM</td><td><content ID="encounterDiagnosisID0-0">Chronic Pain</content>, <content ID="encounterDiagnosisID0-1">Pulmonary Embolism</content>, <content ID="encounterDiagnosisID0-2">Hemiplegia Flaccid Affecting Right Dominant Side</content></td> Attender: Nelson Delarosa MD [facility],[place] 08/03/2020 01:05:00 PM EST - 08/03/2020 02:05:00 PM EST Hemiplegia Flaccid Affecting Right Dominant SidePulmonary EmbolismChronic PainHemiplegia Flaccid Affecting Right Dominant SidePulmonary EmbolismChronic PainHemiplegia Flaccid Affecting Right Dominant SidePulmonary EmbolismChronic Pain [place] ([facility]) Hemiplegia Flaccid Affecting Right Domin ant Side Pulmonary Embolism Chronic Pain Hemiplegia Flaccid Affecting Right Domin ant Side Pulmonary Embolism Chronic Pain Hemiplegia Flaccid Affecting Right Domin ant Side Pulmonary Embolism Chronic Pain [place] [address] [facility] [facility] [address] 07/31/2020 12:00:00 AM EST eCW1 ([facility]) Outpatient<td ID="encounterTypeDescripti onID1">HOSP I/P F/U</td><td>Nelson Delarosa MD</td><td>[facility],</td><td>07/28/2020</td><td>2:19PM</td><td>3:19PM</td><td><content ID="encounterDiagnosisID1-0">Hyperlipidemia</content>, <content ID="encounterDiagnosisID1-1">Chronic Pain</content>, <content ID="encounterDiagnosisID1-2">Restless Legs Syndrome</content>, <content ID="encounterDiagnosisID1-3">Venous Thrombosis Deep Vessels of Lower Extremity</content>, <content ID="encounterDiagnosisID1-4">Atrial Fibrillation Chronic</content>, <content ID="encounterDiagnosisID1-5">Stroke Syndrome</content>, <content ID="encounterDiagnosisID1-6">Anemia Macrocytic</content>, <content ID="encounterDiagnosisID1-7">Chronic Kidney Disease Stage 3</content>, <content ID="encounterDiagnosisID1-8">Congestive Heart Failure Systolic</content>, <content ID="encounterDiagnosisID1-9">Left Ventricular Hypertrophy</content></td> Attender: Nelson Delarosa MD [facility], 07/28/2020 02:19:00 PM EST - 07/28/2020 03:19:00 PM ES T Left Ventricular HypertrophyCongestive Heart Failure SystolicChronic Kidney Disease Stage 3Anemia MacrocyticStroke SyndromeAtrial Fibrillation ChronicVenous Thrombosis Deep Vessels of Lower ExtremityRestless Legs SyndromeChronic Pain HyperlipidemiaLeft Ventricular HypertrophyCongestive Heart Failure SystolicChronic Kidney Disease [...] of Lower ExtremityRestless Legs SyndromeChronic PainHyperlipidemia [place] ([facility]) Left Ventricular Hypertrophy Congestive Heart [...] Legs Syndrome Chronic Pain Hyperlipidemia [place] [address] [facility] [address] 07/27/2020 12:00:00 AM EST eCW1 ([facility]) Outpatient [address] [facility] [address] 07/24/2020 12:00:00 AM EST eCW1 ([facility]) Unknown [address] [facility] [address] 07/24/2020 12:00:00 AM EST eCW1 ([facility]) ([id number]) For Template Leroy [address] [place] [address] 07/17/2020 12:00:00 AM EST eCW1 ([facility]) Outpatient Attender: NEYMAR HILARIO MD [facility] 07/14 02:45:00 PM EST MED[facility] (Neymar Hilario MD) Outpatient Attender: Nelson Delarosa MDConsultant: PCP NO 07/14/2020 02:10:00 PM EST - 07/14/2020 03:10:00 PM EST [id number] New Patient 120 Min [address] [place] [address] 07/10/2020 12:00:00 AM EST eCW1 ([facility]) Unknown [address] [place] [address] 06/29/2020 12:00:00 AM EST eCW1 ([facility]) Unknown [address] [facility] [address] 06/24/2020 12:00:00 AM EST eCW1 ([facility]) Outpatient<td ID="encounterTypeDescripti onID2">RX UPDATE</td><td>Nelson Delarosa MD</td><td></td><td>07/20/2020</td><td>06/04/2020 3:12PM</td><td>06/04/2020 11:59PM</td><td></td> Attender: Nelson Delarosa MD 06/04/2020 03:12:00 PM EST - 06/04/2020 11:59:00 PM EST [place] ([facility]) Outpatient Attender: Nelson Chong masters: Nelson Delarosa MDConsultant: PCP NO 06/04/2020 03:06:00 PM EST - 06/04/2020 03:16:00 PM EST [facility] Outpatient<td ID="encounterTypeDescripti onID3">EXTENDED VISIT</td><td>Nelson Delarosa MD</td><td>[facility]</td><td>06/04/2020</td><td>1:16PM</td><td>2:53PM</td><td><content ID="encounterDiagnosisID3-0">Anemia Macrocytic</content>, <content ID="encounterDiagnosisID3-1">Edema</content>, <content ID="encounterDiagnosisID3-2">Stroke Syndrome</content>, <content ID="encounterDiagnosisID3-3">Assessment of Slurred Speech</content>, <content ID="encounterDiagnosisID3-4">Peripheral Vascular Disease</content></td> Attender: Nelson Delarosa MD [facility] 06/04/2020 01:16:00 PM EST - 06/04/2020 02:53:00 PM EST Peripheral Vascular DiseaseAssessment of Slurred SpeechStroke SyndromeEdemaAnemia MacrocyticPeripheral Vascular DiseaseAssessment of Slurred SpeechStroke SyndromeEdemaAnemia MacrocyticPeripheral Vascular DiseaseAssessment of Slurred SpeechStroke SyndromeEdemaAnemia MacrocyticPeripheral Vascular DiseaseAssessment of Slurred SpeechStroke SyndromeEdemaAnemia Macrocytic [place] ([facility]) Peripheral Vascular Disease Assessment of Slurred Speech Stroke Syndrome Edema Anemia Macrocytic Peripheral Vascular Disease Assessment of Slurred Speech Stroke Syndrome Edema Anemia Macrocytic Peripheral Vascular Disease Assessment of Slurred Speech Stroke Syndrome Edema Anemia Macrocytic Peripheral Vascular Disease Assessment of Slurred Speech Stroke Syndrome Edema Anemia Macrocytic <td ID="encounterTypeDescriptionID4">STA NDARD OV</td><td>Nelson Delarosa MD</td><td>[facility]</td><td>05/14/2020</td><td>10:25AM</td><td>11:21AM</td><td><content ID="encounterDiagnosisID4-0">Cellulitis</content></td>Outpatient Attender: Nelson Delarosa MD [facility] 05/14/2020 10:25:00 AM EST - 05/14/2020 11:21:00 AM EST CellulitisCellulitisCellulitisCellulitisCellulitis [place] ([facility]) Cellulitis Cellulitis Cellulitis Cellulitis Cellulitis Outpatient Attender: Nelson Delarosa MDConsultant: PCP NO 05/14/2020 09:53:00 AM EST - 05/14/2020 10:53:00 AM EST [facility] Out[facility] Attender: Nelson SABILLONe masters: Nelson Delarosa MDConsultant: PCP NO 05/06/2020 03:43:00 PM EST - 05/06/2020 03:53:00 PM EST [facility] Patient discharged. Outpatient<td ID="encounterTypeDescripti onID5">EXTENDED VISIT</td><td>Nelson Delarosa MD</td><td>[facility]</td><td>05/06/2020</td><td>3:10PM</td><td>4:15PM</td><td><content ID="encounterDiagnosisID5-0">Cellulitis</content>, <content ID="encounterDiagnosisID5-1">Persistent Insomnia</content></td> Attender: Nelson Delarosa MD [facility], 05/06/2020 03:10:00 PM EST - 05/06/2020 04:15:00 PM EST Persistent InsomniaCellulitisPersistent InsomniaCellulitisPersistent InsomniaCellulitisPersistent InsomniaCellulitisPersistent InsomniaCellulitisPersistent InsomniaCellulitis [place] ([facility]) Persistent Insomnia Cellulitis Persistent Insomnia Cellulitis Persistent Insomnia Cellulitis Persistent Insomnia Cellulitis Persistent Insomnia Cellulitis Persistent Insomnia Cellulitis <td ID="encounterTypeDescriptionID6">EXT ENDED VISIT</td><td>Nelson Delarosa MD</td><td>[facility]</td><td>04/28/2020</td><td>9:40AM</td><td>10:53AM</td><td><content ID="encounterDiagnosisID6-0">Chronic Pain</content>, <content ID="encounterDiagnosisID6-1">Atrial Fibrillation Chronic</content>, <content ID="encounterDiagnosisID6-2">Late Effects of Cerebral Infarction Aphasia</content></td>Outpatient Attender: Nelson Delarosa MD [facility], 04/28/2020 09:40:00 AM EST - 04/28/2020 10:53:00 [...] of Cerebral Infarction AphasiaAtrial Fibrillation ChronicChronic Pain [place] ([facility]) Late Effects of Cerebral Infarction [...] Chronic Pain Outpatient<td ID="encounterTypeDescripti onID7">EXTENDED VISIT</td><td>Nelson Delarosa MD</td><td>[facility],</td><td>03/30/2020</td><td>1:03PM</td><td>2:36PM</td><td><content ID="encounterDiagnosisID7-0">Chronic Kidney Disease Stage 3</content>, <content ID="encounterDiagnosisID7-1">Atrial Fibrillation Chronic</content>, <content ID="encounterDiagnosisID7-2">Stroke Syndrome</content>, <content ID="encounterDiagnosisID7-3">Late Effects of Cerebral Infarction Aphasia</content>, <content ID="encounterDiagnosisID7-4">Edema</content></td> Attender: Nelson Delarosa MD [facility], 03/30/2020 01:03:00 PM EST - 03/30/2020 02:36:00 [...] Ch ronicChronic Kidney Disease Stage 3 [place] ([facility]) Edema Late Effects of Cerebral [...] adsorbed. 06/04/2020 02:22:00 PM EST completed <td ID="Lujjbuxuzocwt-Dlirlnqpqfc-IH2">Td</td><td ID="ImmunizationDose- 1">1</td><td>06/04/2020</td><td ID="Zswnwbrtlfzhl-SkwcoNcrk-KP1"></td><td></td> <td ID="Kwwoqfuhvhasr-Bhocyd-JQ7">Complete (Refused - Patient objection)</td><td>[facility] </td><td ID="Joanskbzdixgd-Ggeom-Saiy-Comment-ID1"></td> [place] ([facility]) This CVX code allows reporting of a vacc ination when formulation is unknown (for example, when recording a Influenza vaccination when noted on a vaccination card) 06/04/2020 02:22:00 PM EST completed <td ID="Hbijjpuntublj-Iokyotlgvbx-DG0">Influenza,NOS</td><td ID="ImmunizationDose- 0">1</td><td>06/04/2020</td><td ID="Uhutrehjepxxm-SaxnpDsjt-ES5"></td><td></td> <td ID="Lnyljnkmuvzlw-Zuwiaq-ZP2">Complete (Refused - Patient objection)</td><td>[facility] </td><td ID="Nqcotwqlgvjvb-Qxzhm-Khab-Comment-ID0"></td> [place] ([facility]) Medications Medication Brand Name Start Date Product Form Dose Route Admi nistrative Instructions Pharmacy Instructions Status Indications Reaction Description Data Source(s) 8 HR Acetaminophen 650 MG Extended Release Oral Tablet 8 James r Pain Reliever 02/28/2021 12:00:00 AM EDT ORAL active [facility] ([facility]) quetiapine 50 MG Oral Tablet Quetiapine Fumarate 01/24/2021 12:00:00 AM EDT ORAL active [facility] ([facility]) torsemide 20 MG Oral Tablet Torsemide 12/25/2020 12:00:00 AM EDT ORAL active [facility] ([facility]) torsemide 20 MG Oral Tablet Torsemide 12/24/2020 12:00:00 AM EDT ORAL completed [facility] ([facility]) Docusate Sodium 50 MG / sennosides, SNF 8.6 MG Oral Tablet S chung-S 12/24/2020 12:00:00 AM EDT ORAL active M EDENT ([facility]) Aspirin 81 MG Delayed Release Oral Tablet Aspirin 12/24/2020 1 2:00:00 AM EDT ORAL active [facility] ([facility]) carvedilol 6.25 MG Oral Tablet Carvedilol 12/24/2020 12:00:00 AM EDT ORAL active [facility] ([facility]) Aluminum Hydroxide 40 MG/ML / Magnesium Hydroxide 40 MG/ML / Simethicone 4 MG/ML Oral Suspension Nshplaq-Qeywxgoj-Qytkideslzz 12/24/2020 12:00:00 AM EDT ORAL completed [facility] ([facility]) 24 HR metoprolol succinate 50 MG Extended Release Oral Tablet Metoprolol Succinate ER 11/13/2020 12:00:00 AM EDT ORAL completed [facility] ([facility]) sacubitril 24 MG / valsartan 26 MG Oral Tablet [Entresto] En tresto 11/13/2020 12:00:00 AM EDT ORAL active M [facility] ([facility]) torsemide 20 MG Oral Tablet Torsemide 11/13/2020 12:00:00 AM EDT ORAL completed [facility] ([facility]) Acetaminophen 325 MG Oral Tablet [Tylenol] Tylenol 11/12/2020 12:00:00 AM EDT ORAL active [facility] ([facility]) Multi Vitamin 11/12/2020 12:00:00 AM EDT comp leted [facility] ([facility]) Magnesium Hydroxide 240 MG/ML Oral Suspension Milk Of Magnes ia Concentrate 11/12/2020 12:00:00 AM EDT ORAL active [facility] ([facility]) Bisacodyl 10 MG Rectal Suppository [Dulcolax] Dulcolax 11/12/2020 12:00:00 AM EDT active [facility] ([facility]) Sodium Phosphate, Dibasic 35.5 MG/ML / S odium Phosphate, Monobasic 96.4 MG/ML Enema Enema Disposable 11/12/2020 12:00:00 AM EDT active [facility] ([facility]) Acetaminophen 650 MG Rectal Suppository Acetaminophen 11/12/2020 12:00:00 AM EDT completed [facility] ([facility]) Calcium Carbonate 1500 MG Oral Tablet Calcium 600 11/12/2020 12:00 :00 AM EDT ORAL completed [facility] ([facility]) apixaban 5 MG Oral Tablet [Eliquis] Eliquis 11/12/2020 12:00:00 AM E DT ORAL active [facility] ([facility]) atorvastatin 20 MG Oral Tablet Atorvastatin Calcium 11/12/2020 1 2:00:00 AM EDT ORAL active [facility] ( [facility]) gabapentin 600 MG Oral Tablet Gabapentin 11/12/2020 12:00:00 AM EDT ORAL active [facility] ([facility]) Trazodone Hydrochloride 50 MG Oral Tablet Trazodone HCL 11/12/2020 12:00:00 AM EDT ORAL completed [facility] ([facility]) pantoprazole 40 MG Delayed Release Oral Tablet Pantoprazole Sodium 11/12/2020 12:00:00 AM EDT ORAL active M [facility] ([facility]) Pramipexole dihydrochloride 1 MG Oral Tablet Pramipexole Dih ydrochloride 11/12/2020 12:00:00 AM EDT ORAL active [facility] ([facility]) Enalapril Maleate 5 MG Oral Tablet Enalapril Maleate 11/12/2020 12:00:00 AM EDT ORAL completed [facility] ([facility]) quetiapine 50 MG Oral Tablet Quetiapine Fumarate 11/12/2020 12:00:00 AM EDT ORAL completed [facility] ([facility]) carvedilol 6.25 MG Oral Tablet Carvedilol 11/12/2020 12:00:00 AM EDT ORAL completed [facility] ([facility]) Bumetanide 1 MG Oral Tablet [Bumex] Bumex 11/12/2020 12:00:00 AM EDT [facility] B[facility] 1 MG Oral Tablet Bumetanide 08/20/2020 12:00:00 AM EDT active [facility] (Neymar Hilario MD) Trazodone Hydrochloride 50 MG Oral Tablet Trazodone HCL 08/20/2020 12:00:00 AM EDT ORAL active [facility] (Mindy Hilario MD) dronedarone 400 MG Oral Tablet [Multaq] Multaq 08/20/2020 12:00:0 0 AM EDT ORAL active [facility] (Mindy Hilario MD) iopamidol (ISOVUE-300) 61 % injection [id number] 08/07/2020 02:25:36 PM EST active As needed, Starting 08/07 at 1425, Intra-Procedure [facility] Medication administered onsite iodixanol (VISIPAQUE) 270 MG/ML injection [id number] 08/07/2020 02:22 :07 PM EST active As needed, Starting Mon08/07/20 at 1422, Intra-Procedure [facility] Medication administered onsite 2 ML Midazolam 1 MG/ML Injection midazolam (VERSED) in jection midazolam (VERSED) injection 08/07/2020 01:47:56 PM EST active As needed, Starting Mon08/07/20 at 1347, Intra-Procedure [facility] Medication administered onsite lidocaine (PF) (XYLOCAINE-MPF) 1 % injection [id number] 04/2021 01:47:55 PM EST active As needed, Start ing Mon08/07/20 at 1347, Intra-Procedure [facility] Medication administered onsite fentaNYL Citrate (PF) (SUBLIMAZE) injection [id number] 08/07/2020 01:47:47 PM EST active As neede d, Starting Mon08/07/20 at 1347, Intra-Procedure [facility] Medication administered onsite Cefazolin 1000 MG Injection ceFAZolin (ANCEF) injectio n ceFAZolin (ANCEF) injection 08/07/2020 01:41:35 PM EST active As needed, Starting Mon08/07/20 at 1341, Intra-Procedure [facility] Medication administered onsite pantoprazole 40 MG Delayed Release Oral Tablet pantoprazole (PROTONIX) EC tablet 40 mg pantoprazole (PROTONIX) EC tablet 40 mg 08/07/2020 09:00:[address] 40 mg Oral active Gastroesophageal Reflux Diseas e 40 mg, Oral, Daily, Indications: Gastroesophageal Reflux Disease, First dose on Mon08/07/20 at 0900 [facility] Gastroesophageal Reflux Disease Medication administered onsite Magnesium Chloride 0.03522 MEQ/ML / Pota ssium Chloride 0.0497 MEQ/ML / Sodium Acetate 0.0163 MEQ/ML / Sodium Chloride 0.0899 MEQ/ML / Sodium gluconate 5.02 MG/ML Injectable Solution [Normosol-R] electrolyte-R (NORMOSOL-R/PLASMALYTE-R) solution electrolyte-R (NORMOSOL-R/PLASMALYTE-R) solution 08/07 04:00:00 AM EST Intravenous aborted at 3 0 mL/hr, Intravenous, Continuous, Starting Mon08/07/20 at 0400, Pre-op [facility] Medication administered onsite cefazolin (ANCEF) injection 2 g 08/07/2020 12:00:00 AM EST 2 g Intravenous completed Perioperative Pharmacoprophylaxis 2 g, Intravenous, Administer over 6 Minutes, order desk caller, Mon08/07/20 at 0000, For 1 dose, Pre-op
Use 2 gm for patients less than 120 kg Use 3 gm for patients greater than or equal to 120 kg RN may administer IV push or infuse this medication through syringe adapter set ref [id number]. Flush line after use
[facility] Perioperative Pharmacoprophylaxis Medication administered onsite Levetiracetam 500 MG Oral Tablet levETIRAcetam (KEPPRA ) tablet 750 mg levETIRAcetam (KEPPRA) tablet 750 mg 08/06/2020 09:00:00 PM EST 750 m g Oral active 750 mg, Oral, 2 times daily, First dose on Mon08/06/20 at 2100 [facility] Medication administered onsite Pramipexole dihydrochloride 1 MG Oral Tablet pramipexo le (MIRAPEX) tablet 1 mg pramipexole (MIRAPEX) tablet 1 mg 08/06/2020 09:00:00 PM EST 1 mg Oral active 1 mg, Oral, 2 times daily, First dose on Mon08/06/20 at 2100 [facility] Medication administered onsite Carboxymethylcellulose 0.01 MG/MG Ophtha lmic Gel carboxymethylcellulose sod PF (REFRESH CELLVISC) 1 % ophthalmic 2 drop carboxymethylcellulose sod PF (REFRESH CELLVISC) 1 % ophthalmic 2 drop 08/06/2020 09:00:00 PM EST 2 [drp] active 2 drop, Left Eye, 3 times daily, First dose on Mon08/06/20 at 2100 [facility] Medication administered onsite Diltiazem Hydrochloride 30 MG Oral Tablet diltiazem (C ARDIZEM) tablet 30 mg diltiazem (CARDIZEM) tablet 30 mg 08/06/2020 09:00:00 PM EST 30 mg Oral active 30 mg, Oral, 3 times daily, First dose on Mon08/06/20 at 2100
Hold for SBP <100 or HR <60
[facility] Medication administered onsite duloxetine 30 MG Delayed Release Oral Ca psule DULoxetine (CYMBALTA) DR capsule 30 mg DULoxetine (CYMBALTA) DR capsule 30 mg 08/06/2020 09:00:00 PM EST 30 mg Oral active 30 mg, Oral, 2 times daily, First dose on Mon08/06/20 at 2100 [facility] Medication administered onsite Acetaminophen 325 MG / Hydrocodone Karissa trate 5 MG Oral Tablet HYDROcodone- acetaminophen (NORCO) 5-325 MG per tablet 1 tablet HYDROcodone-acetaminophen (NORCO) 5-325 MG per tablet 1 tablet 08/06/2020 09:00:00 PM EST 1 { tbl} Oral active 1 tablet, Oral, 2 times daily, First dose on Mon08/06/20 at 2100, For 7 days [facility] Medication administered onsite atorvastatin 20 MG Oral Tablet atorvastatin (LIPITOR) tablet 20 mg atorvastatin (LIPITOR) tablet 20 mg 08/06/2020 09:00:00 PM EST 20 mg Oral active 20 mg, Oral, Nightly, First dose on [place] 08/06/20 at 2100 [facility] Medication administered onsite quetiapine 100 MG Oral Tablet QUEtiapine (SEROquel) ta blet 100 mg QUEtiapine (SEROquel) tablet 100 mg 08/06/2020 08:00:00 PM EST 100 mg Oral active 100 mg, Oral, Nightly, First dose on [place] 08/06/20 at 20 00 [facility] Medication administered onsite quetiapine 25 MG Oral Tablet QUEtiapine (SEROquel) tab let 50 mg QUEtiapine (SEROquel) tablet 50 mg 08/06/2020 08:00:00 PM EST 50 mg Oral active 50 mg, Oral, Nightly, First dose on [place] 08/06/20 at 2000 [facility] Medication administered onsite gabapentin 300 MG Oral Capsule gabapentin (NEURONTIN) capsule 300 mg gabapentin (NEURONTIN) capsule 300 mg 08/06/2020 06:00:00 PM EST 300 mg Oral active 300 mg, Oral, 3 times daily, First dose on Aggie 08/06/20 at 1800 [facility] Medication administered onsite Citalopram 20 MG Oral Tablet citalopram (CeleXA) table t 20 mg citalopram (CeleXA) tablet 20 mg 08/06/2020 06:00:00 PM EST 20 mg Oral active 20 mg, Oral, Daily, First dose on [place] 08/06/20 at 1800 [facility] Medication administered onsite Furosemide 40 MG Oral Tablet furosemide (LASIX) tablet 40 mg furosemide (LASIX) tablet 40 mg 08/06/2020 05:00:00 PM EST 40 mg Oral activ e 40 mg, Oral, Every morning, First dose on [place]ie 08/06/20 at 1700 [facility] Medication administered onsite carvedilol 3.125 MG Oral Tablet carvedilol (COREG) tab let 3.125 mg carvedilol (COREG) tablet 3.125 mg 08/06/2020 05:00:00 PM EST 3.125 mg Oral active 3.125 mg, Oral, 2 times daily, First dos e on Aggie 08/06/20 at 1700
Hold for SBP <100 or HR <60
[facility] Medication administered onsite sennosides, SNF 8.6 [...] 10-15 ml of water prior to administration
[facility] Medication administered onsite heparin (porcine) injection 5,000 Units [id number] 08/07/19 03:10:00 PM EST 5000 U Subcutaneous active 5,000 Units , Subcutaneous, Every 8 hours (scheduled), First dose on Aggie 08/06/20 at 1510
If platelet count is less than 100,000 or hematocrit is less than 30, or if there is a 5 point decrease in hematocrit, do not give the dose and call physician/designee.
[facility] Medication administered onsite normal saline flush 0.9 % injection 3 mL [id number] 08/06/2020 03:10:00 PM EST 3 mL Intravenous active 3 mL , Intravenous, Every 8 hours (scheduled), First dose on Aggie 08/06/20 at 1510
flush per protocol, D/C Main IV fluid if appropriate
[facility] Medication administered onsite buspirone hydrochloride 5 MG Oral Tablet busPIRone (BU SPAR) tablet 5 mg busPIRone (BUSPAR) tablet 5 mg 08/06/2020 03:10:00 PM EST 5 mg Or al active 5 mg, Oral, 3 times daily, First dose on Aggie 08/06/20 at 1510 [facility] Medication administered onsite Magnesium Hydroxide 80 MG/ML Oral Suspen pema magnesium hydroxide (MILK OF MAGNESIA) 400 MG/5ML suspension 30 mL magnesium hydroxide (MILK OF MAGNESIA) 4 00 MG/5ML suspension 30 mL 08/06/2020 02:53:53 PM EST 30 mL Oral active 30 mL, Oral, Daily PRN, constipation, Starting Aggie 08/06/20 at 1453
hold for loose stools
[facility] Medication administered onsite quetiapine 100 MG Oral Tablet [Seroquel] SEROquel 100 MG Oral Tablet SEROquel 100 MG Oral Tablet 08/03/2020 12:00:00 AM EST 1 active quetiapine 100 MG Oral Tablet [Seroquel] [facility]) Acetaminophen 325 MG / Hydrocodone Karissa trate 5 MG Oral Tablet HYDROcodone- Acetaminophen 5-325 MG Oral Tablet HYDROcodone-Acetaminophen 5-325 MG Oral Tablet 08/03/2020 12:00:00 AM EST active acetaminophen 325 MG / hydrocodone bitartrate 5 MG Oral Tablet [facility]) carvedilol 3.125 MG Oral Tablet [Coreg] Coreg 3.125 MG Oral Tablet Coreg 3.125 MG Oral Tablet 08/03/2020 12:00:00 AM EST act mariana carvedilol 3.125 MG Oral Tablet [Coreg] [facility]) atorvastatin 20 MG Oral Tablet Atorvastatin Calcium 20 MG Oral Tablet Atorvastatin Calcium 20 MG Oral Tablet 07/28/2020 12:00:00 AM EST active atorvastatin 20 MG Oral [facility] gabapentin 600 MG Oral Tablet Gabapentin 600 MG Oral T ablet Gabapentin 600 MG Oral Tablet 07/28/2020 12:00:00 AM EST active gabapentin 600 MG Oral Tablet [facility]) gabapentin 300 MG Oral Capsule Gabapentin 300 MG Oral Capsule Gabapentin 300 MG Oral Capsule 07/28/2020 12:00:00 AM EST activ e gabapentin 300 MG Oral Capsule [facility]) Carboxymethylcellulose Sodium 5 MG/ML Op hthalmic Solution Refresh Tears 0.5% Ophthalmic Solution Refresh Tears 0.5% Ophthalmic Solution 07/28/2020 12:0 0:00 AM EST active carboxym ethylcellulose sodium 5 MG/ML Ophthalmic Solution [facility]) duloxetine 30 MG Delayed Release Oral Ca psule [Cymbalta] Cymbalta 30 MG Oral Capsule Delayed Release Particles Cymbalta 30 MG Oral Capsule Delayed Rele ase Particles 07/28/2020 12:00:00 AM EST active duloxetine 30 MG Delayed Release Oral Capsule [Cymbalta] [facility]) Diltiazem Hydrochloride 30 MG Oral Tablet dilTIAZem HC l 30 MG Oral Tablet dilTIAZem HCl 30 MG Oral Tablet 07/28/2020 12:00:00 AM EST active diltiazem hydrochloride 30 MG Oral Tablet [facility]) Furosemide 20 MG Oral Tablet [Lasix] Lasix 20 MG Oral Tablet Lasix 20 MG Oral Tablet 07/28/2020 12:00:00 AM EST active furosemide 20 MG Oral Tablet [Lasix] [facility]) Pramipexole dihydrochloride 1 MG Oral Tablet [Mirapex] Mirapex 1 MG Oral Tablet Mirapex 1 MG Oral Tablet 07/28/2020 12:00:00 AM EST active pramipexole dihydrochloride 1 MG Oral Tablet [Mirapex] [facility]) quetiapine 50 MG Oral Tablet QUEtiapine Fumarate 50 MG Oral Tablet QUEtiapine Fumarate 50 MG Oral Tablet 07/28/2020 12:00:00 AM EST active quetiapine 50 MG Oral Tablet [facility]) pantoprazole 40 MG Delayed Release Oral Tablet Pantoprazole Sodium 40 MG Oral Tablet Delayed Release Pantoprazole Sodium 40 MG Oral Tablet Delayed Release 07/28/2020 12:00:00 AM EST active pantoprazole 40 MG Delayed Release Oral Tablet [facility]) rivaroxaban 20 MG Oral Tablet [Xarelto] Xarelto 20 MG Oral Tablet Xarelto 20 MG Oral Tablet 07/28/2020 12:00:00 AM EST active rivaroxaban 20 MG Oral Tablet [Xarelto] [facility]) Acetaminophen 325 MG Oral Tablet Acetaminophen 325 MG Oral T ablet 07/28/2020 12:00:00 AM EST active acetamin ophen 325 MG [facility] Senna 8.6 MG Oral Tablet Senna 8.6 MG Oral Tablet 07/28/2020 12:00: 00 AM EST active Senna [place] ([facility]) Aspercreme Lidocaine 4% External Patch Aspercreme Lidocaine 4% External Patch 07/28/2020 12:00:00 AM EST active lidocaine 0.04 MG/MG Medicated Patch [place] ([facility]) Citalopram 20 MG Oral Tablet Citalopram Hydrobromide 2 0 MG Oral Tablet Citalopram Hydrobromide 20 MG Oral Tablet 07/28/2020 12:00:00 AM EST active citalopram 20 MG Oral Tablet [facility]) Senna 8.6 MG Oral Tablet Senna 8.6 MG Oral Tablet 07/21/2020 12:00: 00 AM EST aborted Senna [place] ([facility]) rivaroxaban 20 MG Oral Tablet [Xarelto] Xarelto 20 MG Oral Tablet Xarelto 20 MG Oral Tablet 07/20/2020 12:00:00 AM EST aborte d rivaroxaban 20 MG Oral Tablet [Xarelto] [place] ([facility]) Acetaminophen 325 MG / Hydrocodone Karissa trate 5 MG Oral Tablet HYDROcodone- Acetaminophen 5-325 MG Oral Tablet HYDROcodone-Acetaminophen 5-325 MG Oral Tablet 07/20/2020 12:00:00 AM EST aborted acetaminophen 325 MG / hydrocodone bitartrate 5 MG Oral Tablet [place] ([facility]) gabapentin 300 MG Oral Capsule Gabapentin 300 MG Oral Capsule Gabapentin 300 MG Oral Capsule 07/20/2020 12:00:00 AM EST abort ed gabapentin 300 MG Oral Capsule [facility]) atorvastatin 20 MG Oral Tablet Atorvastatin Calcium 20 MG Oral Tablet Atorvastatin Calcium 20 MG Oral Tablet 07/20/2020 12:00:00 AM EST aborted atorvastatin 20 MG [facility] carvedilol 3.125 MG Oral Tablet Carvedilol 07/14/2020 12:00:00 AM EST ORAL active MEDENT (Neymar Hilario MD) Levofloxacin 500 MG Oral Tablet [Levaquin] Levaquin 50 0 MG Oral Tablet Levaquin 500 MG Oral Tablet 06/12/2020 12:00:00 AM EST aborted levofloxacin 500 MG Oral Tablet [Levaquin] [facility]) atorvastatin 20 MG Oral Tablet [Lipitor] Lipitor 20 MG Oral Tablet Lipitor 20 MG Oral Tablet 06/04/2020 12:00:00 AM EST abort ed atorvastatin 20 MG Oral Tablet [Lipitor] [place] ([facility]) Carboxymethylcellulose Sodium 5 MG/ML Op hthalmic Solution Refresh Tears 0.5% Ophthalmic Solution Refresh Tears 0.5% Ophthalmic Solution 06/04/2020 12:0 0:00 AM EST aborted carboxym ethylcellulose sodium 5 MG/ML Ophthalmic Solution [facility]) Citalopram 20 MG Oral Tablet Citalopram Hydrobromide 2 0 MG Oral Tablet Citalopram Hydrobromide 20 MG Oral Tablet 06/04/2020 12:00:00 AM EST aborted citalopram 20 MG Oral Tablet [facility]) Aspercreme Lidocaine 4% External Patch Aspercreme Lidocaine 4% External Patch 06/04/2020 12:00:00 AM EST aborted lidocaine 0.04 MG/MG Medicated Patch [facility]) Pramipexole dihydrochloride 1 MG Oral Tablet [Mirapex] Mirapex 1 MG Oral Tablet Mirapex 1 MG Oral Tablet 06/04/2020 12:00:00 AM EST aborted pramipexole dihydrochloride 1 MG Oral Tablet [Mirapex] [facility]) rivaroxaban 20 MG Oral Tablet [Xarelto] Xarelto 20 MG Oral Tablet Xarelto 20 MG Oral Tablet 06/04/2020 12:00:00 AM EST aborte d rivaroxaban 20 MG Oral Tablet [Xarelto] [facility]) Senna 8.6 MG Oral Tablet Senna 8.6 MG Oral Tablet 06/04/2020 12:00: 00 AM EST aborted Senna [facility]) Acetaminophen 325 MG Oral Tablet Acetaminophen 325 MG Oral T ablet 06/04/2020 12:00:00 AM EST aborted acetami nophen 325 MG Oral Tablet [facility]) Diltiazem Hydrochloride 30 MG Oral Tablet dilTIAZem HC l 30 MG Oral Tablet dilTIAZem HCl 30 MG Oral Tablet 06/04/2020 12:00:00 AM EST aborted diltiazem hydrochloride 30 MG Oral Tablet [place] ([facility]) duloxetine 30 MG Delayed Release Oral Ca psule [Cymbalta] Cymbalta 30 MG Oral Capsule Delayed Release Particles Cymbalta 30 MG Oral Capsule Delayed Rele ase Particles 06/04/2020 12:00:00 AM EST aborted duloxetine 30 MG Delayed Release Oral Capsule [Cymbalta] [place] ([facility]) gabapentin 300 MG Oral Capsule Gabapentin 300 MG Oral Capsule Gabapentin 300 MG Oral Capsule 06/04/2020 12:00:00 AM EST abort ed gabapentin 300 MG Oral Capsule [place] ([facility]) pantoprazole 40 MG Delayed Release Oral Tablet Pantoprazole Sodium 40 MG Oral Tablet Delayed Release Pantoprazole Sodium 40 MG Oral Tablet Delayed Release 06/04/2020 12:00:00 AM EST aborted pantoprazole 40 MG Delayed Release Oral Tablet [facility]) Mupirocin 0.02 MG/MG Topical Ointment Mupirocin 2% Ext ernal Ointment Mupirocin 2% External Ointment 06/04/2020 12:00:00 AM EST aborted mupirocin 0.02 MG/MG Topical Ointment [place] ([facility]) quetiapine 50 MG Oral Tablet QUEtiapine Fumarate 50 MG Oral Tablet QUEtiapine Fumarate 50 MG Oral Tablet 06/04/2020 12:00:00 AM EST aborted quetiapine 50 MG Oral Tablet [place] ([facility]) Acetaminophen 325 MG / Hydrocodone Karissa trate 5 MG Oral Tablet HYDROcodone- Acetaminophen 5-325 MG Oral Tablet HYDROcodone-Acetaminophen 5-325 MG Oral Tablet 06/04/2020 12:00:00 AM EST aborted acetaminophen 325 MG / hydrocodone bitartrate 5 MG Oral Tablet [place] ([facility]) Furosemide 20 MG Oral Tablet [Lasix] Lasix 20 MG Oral Tablet Lasix 20 MG Oral Tablet 06/04/2020 12:00:00 AM EST aborted furosemide 20 MG Oral Tablet [Lasix] [place] ([facility]) pantoprazole 40 MG Delayed Release Oral Tablet Pantoprazole Sodium 40 MG Oral Tablet Delayed Release Pantoprazole Sodium 40 MG Oral Tablet Delayed Release 05/25/2020 12:00:00 AM EST aborted pantoprazole 40 MG Delayed Release Oral Tablet [place] ([facility]) Amoxicillin 875 MG / Clavulanate 125 MG Oral Tablet Amoxicillin-Pot Clavulanate 875-125 MG Oral Tablet Amoxicillin-Pot Clavulanate 875-125 MG Oral Tablet 05/06/2020 12:00:00 AM EST aborted amoxicillin 875 MG / clavulanate 125 MG Oral Tablet [place] ([facility]) Mupirocin 0.02 MG/MG Topical Ointment Mupirocin 2% Ext ernal Ointment Mupirocin 2% External Ointment 05/06/2020 12:00:00 AM EST aborted mupirocin 0.02 MG/MG Topical Ointment [facility]) Acetaminophen 325 MG / Hydrocodone Karissa trate 5 MG Oral Tablet HYDROcodone- Acetaminophen 5-325 MG Oral Tablet HYDROcodone-Acetaminophen 5-325 MG Oral Tablet 04/28/2020 12:00:00 AM EST aborted acetaminophen 325 MG / hydrocodone bitartrate 5 MG Oral Tablet [facility]) LUIS M Elastic Bandage 4" Miscellaneous LUIS M Elastic Bandage 4" Miscellaneous 04/06/2020 12:00:00 AM EST aborted LUIS M Elastic Bandage 4" [place] ([facility]) rivaroxaban 20 MG Oral Tablet [Xarelto] Xarelto 20 MG Oral Tablet Xarelto 20 MG Oral Tablet 04/06/2020 12:00:00 AM EST aborte d rivaroxaban 20 MG Oral Tablet [Xarelto] [place] ([facility]) Senna 8.6 MG Oral Tablet Senna 8.6 MG Oral Tablet 04/06/2020 12:00: 00 AM EST aborted Senna [place] ([facility]) buspirone hydrochloride 5 MG Oral Tablet busPIRone HCl 5 MG Oral Tablet busPIRone HCl 5 MG Oral Tablet 04/06/2020 12:00:00 AM EST 1 aborted buspirone hydrochloride 5 MG Oral Tablet [place] ([facility]) Citalopram 20 MG Oral Tablet Citalopram Hydrobromide 2 0 MG Oral Tablet Citalopram Hydrobromide 20 MG Oral Tablet 04/06/2020 12:00:00 AM EST aborted [facility]ram 20 MG [facility] duloxetine 30 MG Delayed Release Oral Ca psule [Cymbalta] Cymbalta 30 MG Oral Capsule Delayed Release Particles Cymbalta 30 MG Oral Capsule Delayed Rele ase Particles 04/06/2020 12:00:00 AM EST aborted duloxetine 30 MG Delayed Release Oral Capsule [Cymbalta] [facility]) Diltiazem Hydrochloride 30 MG Oral Tablet dilTIAZem HC l 30 MG Oral Tablet dilTIAZem HCl 30 MG Oral Tablet 04/06/2020 12:00:00 AM EST aborted diltiazem hydrochloride 30 MG Oral Tablet [facility]) Acetaminophen 325 MG Oral Tablet Acetaminophen 325 MG Oral T ablet 04/06/2020 12:00:00 AM EST aborted acetami nophen 325 MG Oral Tablet [facility]) Aspercreme Lidocaine 4% External Patch Aspercreme Lidocaine 4% External Patch 04/06/2020 12:00:00 AM EST aborted lidocaine 0.04 MG/MG Medicated Patch [facility]) gabapentin 300 MG Oral Capsule Gabapentin 300 MG Oral Capsule Gabapentin 300 MG Oral Capsule 04/06/2020 12:00:00 AM EST abort ed gabapentin 300 MG Oral Capsule [facility]) Carboxymethylcellulose Sodium 5 MG/ML Op hthalmic Solution Refresh Tears 0.5% Ophthalmic Solution Refresh Tears 0.5% Ophthalmic Solution 04/06/2020 12:0 0:00 AM EST aborted carboxym ethylcellulose sodium 5 MG/ML Ophthalmic Solution [facility]) Levetiracetam 750 MG Oral Tablet [Keppra] Keppra 750 M G Oral Tablet Keppra 750 MG Oral Tablet 04/06/2020 12:00:00 AM EST abo rted levetiracetam 750 MG Oral Tablet [Keppra] [facility]) Acetaminophen 325 MG / Hydrocodone Karissa trate 5 MG Oral Tablet HYDROcodone- Acetaminophen 5-325 MG Oral Tablet HYDROcodone-Acetaminophen 5-325 MG Oral Tablet 04/06/2020 12:00:00 AM EST aborted acetaminophen 325 MG / hydrocodone bitartrate 5 MG Oral Tablet [facility]) Carboxymethylcellulose Sodium 5 MG/ML Op hthalmic Solution Refresh Tears 0.5% Ophthalmic Solution Refresh Tears 0.5% Ophthalmic Solution 04/06/2020 12:0 0:00 AM EST aborted carboxym ethylcellulose sodium 5 MG/ML Ophthalmic Solution [facility]) Furosemide 20 MG Oral Tablet [Lasix] Lasix 20 MG Oral Tablet Lasix 20 MG Oral Tablet 04/06/2020 12:00:00 AM EST aborted furosemide 20 MG Oral Tablet [Lasix] [facility]) atorvastatin 20 MG Oral Tablet [Lipitor] Lipitor 20 MG Oral Tablet Lipitor 20 MG Oral Tablet 04/06/2020 12:00:00 AM EST abort ed atorvastatin 20 MG Oral Tablet [Lipitor] [place] ([facility]) Pramipexole dihydrochloride 1 MG Oral Tablet [Mirapex] Mirapex 1 MG Oral Tablet Mirapex 1 MG Oral Tablet 04/06/2020 12:00:00 AM EST aborted pramipexole dihydrochloride 1 MG Oral Tablet [Mirapex] [facility]) Melatonin 5 MG Oral Tablet Melatonin 5 MG Oral Tablet 2019 12:00:00 AM EST aborted melatonin 5 MG O ral Tablet [facility]) quetiapine 50 MG Oral Tablet QUEtiapine Fumarate 50 MG Oral Tablet QUEtiapine Fumarate 50 MG Oral Tablet 04/06/2020 12:00:00 AM EST aborted quetiapine 50 MG Oral Tablet [facility]) pantoprazole 40 MG Delayed Release Oral Tablet [Protonix] Protonix 40 MG Oral Tablet Delayed Release Protonix 40 MG Oral Tablet Delayed Release 04/06/2020 12:00:00 AM EST aborted pantoprazole 40 MG Delayed Release Oral Tablet [Protonix] [facility]) Acetaminophen 325 MG / Hydrocodone Karissa trate 5 MG Oral Tablet HYDROcodone- Acetaminophen 5-325 MG Oral Tablet HYDROcodone-Acetaminophen 5-325 MG Oral Tablet 03/30/2020 12:00:00 AM EST 1 aborted acetaminophen 325 MG / hydrocodone bitartrate 5 MG Oral Tablet [facility]) LUIS M Elastic Bandage 4" Miscellaneous LUIS M Elastic Bandage 4" Miscellaneous 03/16/2020 12:00:00 AM EDT aborted LUIS M Elastic Bandage 4" [place] ([facility]) Senna 8.6 MG Oral Tablet Senna 8.6 MG Oral Tablet 03/06/2020 12:00: 00 AM EDT aborted Senna [place] ([facility]) Carboxymethylcellulose Sodium 5 MG/ML Op hthalmic Solution Refresh Tears 0.5% Ophthalmic Solution Refresh Tears 0.5% Ophthalmic Solution 03/06/2020 12:0 0:00 AM EDT aborted carboxym ethylcellulose sodium 5 MG/ML Ophthalmic Solution [facility]) rivaroxaban 20 MG Oral Tablet [Xarelto] Xarelto 20 MG Oral Tablet Xarelto 20 MG Oral Tablet 03/06/2020 12:00:00 AM EDT aborte d rivaroxaban 20 MG Oral Tablet [Xarelto] [facility]) pantoprazole 40 MG Delayed Release Oral Tablet [Protonix] Protonix 40 MG Oral Tablet Delayed Release Protonix 40 MG Oral Tablet Delayed Release 03/06/2020 12:00:00 AM EDT aborted pantoprazole 40 MG Delayed Release Oral Tablet [Protonix] [facility]) Pramipexole dihydrochloride 1 MG Oral Tablet [Mirapex] Mirapex 1 MG Oral Tablet Mirapex 1 MG Oral Tablet 03/06/2020 12:00:00 AM EDT aborted pramipexole dihydrochloride 1 MG Oral Tablet [Mirapex] [facility]) Acetaminophen 325 MG Oral Tablet Acetaminophen 325 MG Oral T ablet 03/06/2020 12:00:00 AM EDT aborted acetami nophen 325 MG Oral Tablet [facility]) quetiapine 50 MG Oral Tablet QUEtiapine Fumarate 50 MG Oral Tablet QUEtiapine Fumarate 50 MG Oral Tablet 03/06/2020 12:00:00 AM EDT aborted quetiapine 50 MG Oral Tablet [facility]) Melatonin 5 MG Oral Tablet Melatonin 5 MG Oral Tablet 2019 12:00:00 AM EDT aborted melatonin 5 MG O ral Tablet [facility]) duloxetine 30 MG Delayed Release Oral Ca psule [Cymbalta] Cymbalta 30 MG Oral Capsule Delayed Release Particles Cymbalta 30 MG Oral Capsule Delayed Rele ase Particles 03/06/2020 12:00:00 AM EDT aborted duloxetine 30 MG Delayed Release Oral Capsule [Cymbalta] [facility]) Citalopram 20 MG Oral Tablet Citalopram Hydrobromide 2 0 MG Oral Tablet Citalopram Hydrobromide 20 MG Oral Tablet 03/06/2020 12:00:00 AM EDT aborted citalopram 20 MG Oral Tablet [facility]) Furosemide 20 MG Oral Tablet [Lasix] Lasix 20 MG Oral Tablet Lasix 20 MG Oral Tablet 03/06/2020 12:00:00 AM EDT aborted furosemide 20 MG Oral Tablet [Lasix] [facility]) Diltiazem Hydrochloride 30 MG Oral Tablet dilTIAZem HC l 30 MG Oral Tablet dilTIAZem HCl 30 MG Oral Tablet 03/06/2020 12:00:00 AM EDT aborted diltiazem hydrochloride 30 MG Oral Tablet [facility]) Aspercreme Lidocaine 4% External Patch Aspercreme Lidocaine 4% External Patch 03/06/2020 12:00:00 AM EDT aborted lidocaine 0.04 MG/MG Medicated Patch [facility]) buspirone hydrochloride 5 MG Oral Tablet busPIRone HCl 5 MG Oral Tablet busPIRone HCl 5 MG Oral Tablet 03/06/2020 12:00:00 AM EDT 1 aborted buspirone hydrochloride 5 MG Oral Tablet [facility]) atorvastatin 20 MG Oral Tablet [Lipitor] Lipitor 20 MG Oral Tablet Lipitor 20 MG Oral Tablet 03/06/2020 12:00:00 AM EDT abort ed atorvastatin 20 MG Oral Tablet [Lipitor] [facility]) Levetiracetam 750 MG Oral Tablet [Keppra] Keppra 750 M G Oral Tablet Keppra 750 MG Oral Tablet 03/06/2020 12:00:00 AM EDT abo rted levetiracetam 750 MG Oral Tablet [Keppra] [place] ([facility]) gabapentin 300 MG Oral Capsule Gabapentin 300 MG Oral Capsule Gabapentin 300 MG Oral Capsule 03/06/2020 12:00:00 AM EDT 1 abort ed gabapentin 300 MG Oral Capsule [place] ([facility]) Acetaminophen 325 MG / Hydrocodone Karissa trate 5 MG Oral Tablet HYDROcodone- Acetaminophen 5-325 MG Oral Tablet HYDROcodone-Acetaminophen 5-325 MG Oral Tablet 03/04/2020 12:00:00 AM EDT 1 aborted acetaminophen 325 MG / hydrocodone bitartrate 5 MG Oral Tablet [place] ([facility]) lidocaine (ASPERCREME) 4 % [facility] [id number] 09/19/2019 12:00:00 AM EDT 2 {patch} Transdermal aborted Place 2 patches on t he skin daily [facility] Ondansetron 4 MG Disintegrating Oral Tab let ondansetron (ZOFRAN-ODT) 4 MG disintegrating tablet ondansetron (ZOFRAN-ODT) 4 MG disintegrating tablet 09/18/2019 12:00:00 AM EDT 4 mg Oral aborted Take 1 tablet (4 mg total) by mouth every 6 (six) hours as needed for nausea [facility] Furosemide 20 MG Oral Tablet [Lasix] Lasix 20 MG Oral Tablet Lasix 20 MG Oral Tablet 08/05/2019 12:00:00 AM EDT aborted furosemide 20 MG Oral Tablet [Lasix] [place] ([facility]) Omeprazole 20 MG Delayed Release Oral Ca psule Omeprazole 20 MG Oral Capsule Delayed Release Omeprazole 20 MG Oral Capsule Delayed Release 07/29/19 12:00:00 AM EST 1 aborted omeprazole 20 MG Delayed Release Oral Capsule [facility]) rivaroxaban 15 MG Oral Tablet [Xarelto] Xarelto 15 MG Oral Tablet Xarelto 15 MG Oral Tablet 07/29/2019 12:00:00 AM EST aborte d rivaroxaban 15 MG Oral Tablet [Xarelto] [facility]) gabapentin 300 MG Oral Capsule Gabapentin 300 MG Oral Capsule Gabapentin 300 MG Oral Capsule 07/29/2019 12:00:00 AM EST 1 abort ed gabapentin 300 MG Oral Capsule [facility]) buspirone hydrochloride 5 MG Oral Tablet busPIRone HCl 5 MG Oral Tablet busPIRone HCl 5 MG Oral Tablet 07/29/2019 12:00:00 AM EST 1 aborted buspirone hydrochloride 5 MG Oral Tablet [facility]) Pramipexole dihydrochloride 1 MG Oral Ta blet Pramipexole Dihydrochloride 1 MG Oral Tablet Pramipexole Dihydrochloride 1 MG Oral Tablet 0 12:00:00 AM EST aborted pramipexole dihy drochloride 1 MG Oral Tablet [facility]) mineral oil external liquid [address]-5 1 {application} Topical aborted Apply 1 application topically da zayda as needed (for dry skin) [facility] Magnesium Hydroxide 80 MG/ML Oral Suspen pema magnesium hydroxide (MILK OF MAGNESIA) 400 MG/5ML suspension magnesium hydroxide (MILK OF MAGNESIA) 4 00 MG/5ML suspension 30 mL Oral aborted Take 30 mL by mouth daily as needed for constipation [facility] Melatonin 3 MG Oral Tablet Melatonin 3 MG TABS Melatonin 3 MG TABS 3 mg Oral aborted Take 3 mg by mouth n ightly as needed (for sleep) [facility] Levetiracetam 750 MG Oral Tablet levETIRAcetam (KEPPRA ) 750 MG tablet levETIRAcetam (KEPPRA) 750 MG tablet 750 mg Oral a borted Take 750 mg by mouth 2 (two) times a day [facility] Acetaminophen 325 MG Oral Tablet acetaminophen (TYLENO L) 325 MG tablet acetaminophen (TYLENOL) 325 MG tablet 325 mg Oral aborted Take 325 mg by mouth every 4 (four) hours as needed for pain [facility] Bisacodyl 10 MG Rectal Suppository bisacodyl (DULCOLAX ) 10 MG suppository bisacodyl (DULCOLAX) 10 MG suppository 10 mg Rectal aborted Insert 10 mg into the rectum daily as needed (for constpation) [facility] Sodium Phosphate, Dibasic 35.5 MG/ML / S odium Phosphate, Monobasic 96.4 MG/ML Enema Sodium Phosphates (FLEET) 7-19 GM/118ML ENEM Sodium Phosphates (FLEET) 7- 19 GM/118ML ENEM 1 {enema} Rectal aborted Insert 1 enema into the rectum once as needed (for constipation) [facility] buspirone hydrochloride 5 MG Oral Tablet busPIRone (BU SPAR) 5 MG tablet busPIRone (BUSPAR) 5 MG tablet 5 mg Oral aborted Take 5 mg by mouth 3 (three) times a day [facility] carvedilol 12.5 MG Oral Tablet carvedilol (COREG) 12.5 MG tablet carvedilol (COREG) 12.5 MG tablet 12.5 mg Oral aborted Take 12.5 mg by mouth 2 (two) times a day with meals [facility] sennosides, SNF 8.6 MG Oral Tablet senna (SENOKOT) 8.6 MG TABS senna (SENOKOT) 8.6 MG TABS 8.6 mg Oral aborted Take 8.6 mg by mouth daily as needed (for constipation) [facility] Oxycodone Hydrochloride 5 MG Oral Tablet oxyCODONE (ROXICODONE) 5 MG immediate release tablet oxyCODONE (ROXICODONE) 5 MG immediate release tablet 5 mg Oral aborted Take 5 mg by mouth e very 4 (four) hours as needed for pain [facility] Omeprazole 20 MG Delayed Release Oral Ca psule omeprazole (PRILOSEC) 20 MG capsule omeprazole (PRILOSEC) 20 MG capsule 20 mg Oral aborted Take 20 mg by mouth daily [facility] Pramipexole dihydrochloride 1 MG Oral Ta blet [Mirapex] pramipexole (MIRAPEX) 1 MG tablet pramipexole (MIRAPEX) 1 MG tablet 1 mg Oral aborted Take 1 mg by mouth 2 (two) times a day [facility] Insurance Providers Payer name Policy type / Coverage type Policy ID Covered constitution party ID Covered constitution party's relationship to leroy Policy Leroy Plan Information [facility] [id number] MEDICARE A [id number] Self [id number] A MEDICARE A [id number] Self [id number] MEDICARE [id number] SP [id number] A MEDICARE [id number] xxxxxxxxxxx [id number] MEDICARE [id number] Madeleine [id number] X06 Medicare C [id number] SELF [id number] X06 MEDICAID M [id number] Self [id number] MEDICARE [facility]) - [id number] 1 [id number] 1 [id number] MEDICAID [facility]. 2 [id number] 1 [id number] MEDICAID [facility] [id number] SP [id number] MEDICAID [id number] Madeleine [id number] MEDICAID [id number] xxxxxxxx [id number] Medicaid [facility] [place] S D [id number] SELF [id number] MEDICAID [id number] Madeleine [id number] Medicaid [facility] Other 0 [id number] Self 0 Medicare Part B of [facility] Other 0 [id number] Self 0 Medicaid of [place] Other 0 [id number] Self 0 Medicare Part B of [facility] Other 0 [id number] Self 0 [place] Other 0 [id number] Self 0 Medicare Part B of [facility] Other 0 [id number] Self 0 [place] Other 0 [id number] Self 0 Medicare Part B of [facility] Other 0 [id number] Self 0 [place] Other 0 [id number] Self 0 Medicare Part B of [facility] Other 0 [id number] Self 0 [place] Other 0 [id number] Self 0 Medicare Part B of [facility] Other 0 [id number] Self 0 MEDICARE C [id number] S [id number] [place] Other 0 [id number] Self 0 Medicare Part B of [facility] Other 0 [id number] Self 0 MEDICARE PART A -O [id number] 18 [id number] MEDICAID -O/P KEVIN [id number] 18 [id number] MEDICARE PART A -I/P [id number] 18 [id number] MEDICAID -I/P [id number] 18 [id number] MEDICARE PART A -O/P [id number] 18 [id number] Medicaid [facility] Other 0 [id number] Self 0 Medicare Part B [facility] Other 0 [id number] Self 0 Medicaid [facility] Other 0 [id number] Self 0 Medicare Part B [facility] Other 0 [id number] Self 0 MEDICAID [id number] SP [id number] ANSI-Medicare Part B [id number] ANSI-Medicare Part B [id number] ANSI-Medicare Part B [id number] ANSI-Medicare Part B [id number] ANSI-Medicare Part B [id number] ANSI-Medicare Part B [id number]-[id number] ANSI-Medicare Part B [id number] ANSI-Medicare Part B [id number] ANSI-Medicare Part B [id number] 201wl6m4-[id number] ANSI-Medicare Part B [id number]-l9z5-[id number] [id number]-dx71-5b61-h2y4-xs07g34f54i7 ANSI-Medicare Part B [id number]-8p37-9q34-e6w8556vjrj8 h8jbk657-417z-4y65-8u17-y1m0738ewfc0 ANSI-Medicare Part B 8872f12p-hv44-4e10-2o49-i65ny3475p14 0749a32p-mb83-4i30-3d60-g12pj3520v24 ANSI-Medicare Part B 480d1d16-7s93-100x-ly71-7u8z4v17e44q 070d4r99-0r70-004m-ff26-1n1b6w82a90m ANSI-Medicare Part B px4g1496-1q42-0654-7916-0k35fu6z41z7 tz1o0893-7a78-0962-9170-3p25sg2u34q0 ANSI-Medicare Part B y588f688-8j73-9837-i73e-g032016l014y g688x841-3l69-6916-o55d-p716653s195d ANSI-Medicare Part B 800bcw86-q64j-853z-[id number] 662ipu89-a71r-804l-gj97-60a7083922y4 ANSI-Medicare Part B it5gq96r-775m-7i84-s748-497zn039e50u ad2pp16b-776z-2e60-z773-741rq883d24b ANSI-Medicare Part B [id number]-u988-6478-3to3-0s32vy011el3 27wk2016-t256-2089-5at4-0t74da190ta4 ANSI-Medicare Part B 89s1jl8u-47li-85g3-0i34-pzz3b4n7h334 68p2bi7j-21lz-60d8-6d69-odi6x9s7v203 ANSI-Medicare Part B 4147yk28-28a3-5649-814x-dtm162126b48 2922iq33-76q5-5261-481e-yeo586153z71 ANSI-Medicare Part B [id number]86ba62536i 7i286322-7u38-3q42-8698-4g17gb16896o ANSI-Medicare Part B df41xkz8-1a82-6103-8ds0-280i8i6vcq53 dv16fee1-0w32-9877-4jz3-253m8n5sgz86 ANSI-Medicare Part B 9t519639-179y-1081-88d3-72bo31x9nzu0 3c827936-995t-3722-40p0-41nx27e2jnh6 ANSI-Medicare Part B k0362ssq-1388-66w5-4epw-0j53e496444i r9645yts-4733-59b8-1bjk-4f36k122521o MEDICARE [id number] ANSI-Medicare Part B oh186tt4-617c-5c54-f390-u76e634247ca am780qj9-821m-4k46-w358-n01k295334ak ANSI-Medicare Part B 75393221-o533-2564-810y-6672o171if1d 74998671-s595-6720-977z-8181t197sj3d MEDICAID -PHYSICIAN [id number] 1 [id number] MEDICAID -O [id number] 18 [id number] MEDICARE PART A -O [id number] MEDICARE PART A -I/P [id number] ANSI-Medicare Part B [id number]-lw3t-92kl-655t-2r5e2iq993u3 db460668-mm4v-56ij-320l-0s6k1rg315h1 ANSI-Medicare Part B 3301gc7r-5n25-71z6-hr56-9429vm2itq41 3565zc7o-6c17-82p1-ry30-0939vl5ejr32 ANSI-Medicare Part B 67q158fo-4s76-3x9v-y183-wj7d8dv4c7sw 77x068pf-6z91-3e8k-o468-wo6h4wv5k6ew ANSI-Medicare Part B s6rx3j57-17j6-4989-3xnu-89es006x04e0 j5lf2m79-79z6-8637-2xct-89pq214y13l1 ANSI-Medicare Part B a2238ia2-ct4r-55y5-4lz8-a667655994iw f1881xu2-en8n-73p6-9xb4-s849278429wh ANSI-Medicare Part B 74lr7212-0s17-9n44-60m5-lp10z30d582s 63rc3099-9d22-4w64-85a5-dn12q72i476k ANSI-Medicare Part B o923122p-9q0m-45n3-ihn4-m8ox0a9528fu j720352j-7d2i-06u1-jds0-k3ak7l5954yr ANSI-Medicare Part B 3w0jw11y-r8m5-2570-8w69-019w3wl8y3hz 6u1pc62p-e1a8-7997-2b02-546a1md4n3jq ANSI-Medicare Part B 0rs2r0cm-3i43-8n27-a984-86cz2ad5xp1x 2fr5t3nj-3n72-7k43-k841-51vs3ov0ks4j ANSI-Medicare Part B 9urkcvf6-du11-5031-5q20-xf361p2f089v 4wwvbei1-qw67-4480-7s74-wj191i4i581w ANSI-Medicare Part B 7x035506-c16s-8i16-j6d3-72o677yk5513 7y959884-k39l-9o42-i5u7-37v452ll7687 ANSI-Medicare Part B 562z20w3-7212-59e7-3747-8i9qbo3t45d4 308u09d3-9590-38h6-2195-1x1vvt3x68q3 ANSI-Medicare Part B 55m80iaa-i4uw-6149-d600-h1x13m9p6193 50g61emw-i1dx-8351-w581-g4w72w1d9601 ANSI-Medicare Part B 6u6ri5g0-1gi5-43uo-q7j3-84680a63v6dt 7b2vf9z4-4zd3-73jw-w4v3-53408k53g8bp ANSI-Medicare Part B 4gowq1up-kbq5-291d-p6uf-5o77800l589m 8pktu4so-shc0-434o-t0hl-1e55276l356o ANSI-Medicare Part B 0n8u8k3s-2uy8-665p-9p50-8i2933y472um 5p5q7c9u-7fe8-899r-0h80-2p9595r152qb ANSI-Medicare Part B awlb9y64-wua4-2112-t338-27d43h9h1284 flkg9c52-ken9-1940-h985-04f17w2r6326 ANSI-Medicare Part B 0ba7c898-n9cq-17zw-9cu5-g770p7ez228k 8ms1f606-f5iy-76vx-8jl8-d252d0xv693q ANSI-Medicare Part B 0gpf8g1d-0s51-02s9-ygh5-631319869vbm 3zwi9j4s-0z33-79d8-bnp3-352252566crg ANSI-Medicare Part B r1177556-84iu-011c-d14x-g287p29w8c26 u1973382-81ze-371w-a61t-v022c20w2c26 ANSI-Medicare Part B y6llwjlv-3a87-9y1a-e1t7-1yc58m2y86tc c2arqiql-5w56-2j1j-d5d4-6pa85f6i27ko ANSI-Medicare Part B 7269n1o7-rg45-6q40-6s94-uz8n603536n0 0569j3w1-zm81-6l68-3w08-nf2i925448y9 ANSI-Medicare Part B 7575fzu1-ao95-4224-g6ra-36u31opv4473 3856fdw5-sl34-0428-p3kj-71n43bql8417 ANSI-Medicare Part B 7755963m-33q8-792x-8p97-p7y2irm29437 6305132j-83h4-809w-1z62-d0v3lgg90848 ANSI-Medicare Part B 067x3nj3-7h1u-35s0-36ry-94h8i5yn507g 672c7so7-6z7p-62o2-43ya-92f1g9ea348l ANSI-Medicare Part B 6925052c-h3t1-29k1-7hq4-24m5u5ugc57k 8996574l-h3j0-21z9-3pm7-90q6l7gjc73g ANSI-Medicare Part B 62c71cck-22j8-9961-n6ex-8x81m41q9588 28b82efm-41l1-8712-k9db-1n03b95j2843 ANSI-Medicare Part B 224066ml-7786-6yi6-750h-ub8ob04p7yj5 493497fe-7187-0ez4-415w-an2xk63v9hz1 ANSI-Medicare Part B zh3289w5-4507-23k3-437p-6g9939874009 uv8836y5-1121-34j6-760a-7v1001372052 ANSI-Medicare Part B 4201df53-w1p5-3239-284t-0y775e584774 9027vh47-t5h3-7135-727x-4r293w749132 ANSI-Medicare Part B 736ei629-k87d-10dn-1832-hs11862775oj 106qq874-e21i-69bp-3591-ha62079928yh ANSI-Medicare Part B ehe85j58-z0d1-5l82-4691-56o195d4n7zn wng49z16-f7z4-7f76-6304-58q953l8j7do ANSI-Medicare Part B 8c8l0a7e-v231-54rp-478u-f868640118z7 9g4a5v8v-z182-93mn-516w-y954162138p1 ANSI-Medicare Part B 4d2x74f4-swc6-2283-25jj-122b5mgap820 1t9m29a3-dqf3-3949-43ba-312g4gipq302 ANSI-Medicare Part B 9t532075-z9w7-4sj1-318l-m892fvo3f5tr 8f272120-i4b8-4zu7-300s-a260tmf2a4sl ANSI-Medicare Part B x4t44800-zndj-1123-kv4q-tq65k398ysg2 x9i17754-hwiu-8139-lw4f-pa21b803upd6 ANSI-Medicare Part B tmed2xcd-f7dn-7u88-vzo7-wzafwq2t8p9k txyq9jtf-j6bw-5d45-vyn4-elfpiv6q6y9c ANSI-Medicare Part B 5922304r-29t0-577q-t0sp-953rib4j5166 5833310g-93d6-835z-l6kq-332olh7q7531 ANSI-Medicare Part B 5d702857-2559-152o-pbv8-q3q41ltfq136 8i083505-1225-600f-wnl2-l3c69foxq830 ANSI-Medicare Part B 1h9gmpa3-m209-1690-73y3-3090c93a7242 7q1csni3-f358-2665-15z4-4658q86n0230 ANSI-Medicare Part B 278i76xs-s93r-5721-el52-1w689rknq1eu 152e36rh-q87n-1341-zj73-4n985qbnw5ox ANSI-Medicare Part B 3w6776nq-5492-3b7j-0lgp-94179y880g53 4j8195wr-7389-8g3l-7mna-39468s822r85 ANSI-Medicare Part B j849wz16-j62k-96rw-350b-88949y59j38a l666lt28-v70e-14zl-605g-14427j26l17a ANSI-Medicare Part B dgv05rkj-302u-617o-l12k-900197h8i487 yib22kya-428t-104a-h72v-642909d4o682 ANSI-Medicare Part B 9v4n3n09-04p3-0prr-q063-8gs19s0vs623 0e0i2t22-33q3-5fnf-s280-2hd15v7by022 ANSI-Medicare Part B w5lu726x-n466-5430-20rr-12l85lr24m7d m8qr192r-m303-9423-13sc-71s70nm73c9m ANSI-Medicare Part B 0712o958-34m5-715x-r812-4v52692n85b8 3600m994-34l9-052b-w811-5g07339v71w2 ANSI-Medicare Part B 63z20ts2-p8v3-8j74-l2fr-1s03u91q25zr 89o30rb1-k9m9-3f96-t6dq-8i58g60l28ze ANSI-Medicare Part B 56701cf5-9325-2730-24wm-s75ilvpwd330 09414te8-3405-5525-38pk-d08ofgvoe277 ANSI-Medicare Part B y1jsu74a-66ti-76n1-72bx-v5b86058b022 f0zxg15e-06nv-88f6-07ao-z8g36607m139 ANSI-Medicare Part B 8n75cf61-004k-7z6p-en1x-5d1iy306eg27 9n82lh45-373z-1u8h-zc9u-6x1hk726ch93 ANSI-Medicare Part B 90377764-4412-32fx-v697-30402053lg2j 57909903-7743-34bp-o711-24928172df7l MEDICAID -[place] [id number] 1 [id number] MEDICARE -SWING BED [id number] ANSI-Medicare Part B 871n9wg1-36k9-96nc-634l-h03140o0y9w1 837j4we3-65g5-32mt-754t-b07759e4a6i4 ANSI-Medicare Part B u948cb59-l653-8o26-cp3z-448458817486 b656kh97-t685-2t47-sn6g-088938599040 ANSI-Medicare Part B 221ux910-43uj-5407-d6r1-6077pb9akobz 367xl193-98ld-3757-y5f1-6154mr9zhtqu ANSI-Medicare Part B k2111he1-o9tv-8k60-jak2-h3ehic6208bf o8504gc9-n9wg-3w31-pvt3-i0lhap2671or MEDICARE PART A -I/P [id number] ANSI-Medicare Part B 30f293m9-8h82-69jb-03g5-2tsj73j823p5 33f614e6-2x38-28ru-86p9-9fsn39n194u8 ANSI-Medicare Part B 566240t2-g4n4-1253-23x6-nf39turx5uv8 373543n7-i0p1-1802-27k2-vw73noyn4ft9 ANSI-Medicare Part B m3g7t757-t738-670b-w98v-006250568i01 i8a4n397-a915-811y-l74n-817536107t75 ANSI-Medicare Part B 562900r9-cb39-153i-mpt3-7cr2d30b320g 845673k5-bz80-199g-kve3-3aa0e07b817p ANSI-Medicare Part B ub6j717z-h1w7-9776-9ci9-a64dd44cojce rm7k263g-j4e9-1414-0ck4-u55js73ctmaw ANSI-Medicare Part B 7q89n4r9-119v-8d1x-rjsc-9f379960c79p 2x08t5k4-583b-4c7u-rnfi-2v113761b23o ANSI-Medicare Part B 50766rl5-h072-4e36-uvl0-33pqh14j27yw 88568du4-z613-5s80-ilu7-02kzg38k42xh ANSI-Medicare Part B 2o3149b0-369m-208b-tz81-331148637j40 7l4941z4-409s-211j-br54-432422766v29 ANSI-Medicare Part B 39q31f4w-jb6j-1zdf-927j-m4esaq16617s 15s98a6p-wz5v-1zpr-859s-y3gwsv68230x ANSI-Medicare Part B 8733tp0i-2i0i-9357-80pr-3e5xx17z9607 1245gv2q-4s3y-3008-05bh-6i4co49m4841 ANSI-Medicare Part B 03rh6a91-rsp3-8m33-hg28-3048pe088210 89wk0k35-zrz8-9w16-mn88-5452fr299608 ANSI-Medicare Part B 8130n906-5u56-78u2-5664-79r0b83630y3 5876l714-2a70-20n9-2659-47a6j63275p5 ANSI-Medicare Part B a60yf454-5436-9721-o37x-7l0j906lero2 x43op961-2041-8834-c93q-0b5y305ldzq4 ANSI-Medicare Part B 059850c7-6495-6300-l11r-198896f88278 427624c8-7785-0409-t46t-493628c45256 ANSI-Medicare Part B 4d0504b9-2397-22f9-6w1b-5f8v73pc5894 9e0497a0-3261-84s1-6r0c-5x0v95vk2086 ANSI-Medicare Part B f62qhfd4-my27-863c-r917-199l7r952w78 i95cckx7-nv75-303x-r334-980y7k478h31 ANSI-Medicare Part B 6h1g95w5-57f7-211f-124e-1f36x4ap0b2e 3g1e80a0-62t8-090q-716c-1q36w8iu0n2u ANSI-Medicare Part B 427001zu-0130-6eeb-kj1a-2937wdzu1493 510976cs-8657-4psz-mm0u-9855rmlq3240 ANSI-Medicare Part B 35i55764-c2u0-7tt0-49g1-7257px659452 94o33240-f8n5-8gg5-34a0-4152ue459078 ANSI-Medicare Part B y743204r-avf3-4x9h-4196-r9z39e43197o x130897u-pkb7-0x5q-3597-f6h34u61177e ANSI-Medicare Part B 976sh8j0-78xp-4568-w25p-88zc263t07w0 963zx8w5-82xq-7823-d15t-58xz227y73w0 ANSI-Medicare Part B n82d9336-n94r-5l57-c1z2-3dlt2x606619 z97b7859-k72m-3f97-r0b5-4byz2o550114 ANSI-Medicare Part B 196e30b9-51a7-2pcx-650g-5380jm8491ib 434u58w5-64p2-9cgo-389h-2087lh7264qd ANSI-Medicare Part B n7ah977y-8twb-969a-a384-8gse5319042m p9tx088z-8trl-762h-j279-5rit1351292x ANSI-Medicare Part B 17785v01-i126-9o05-7o37-klcd339i3267 77446b91-w044-1n21-5j57-yzwn767c4091 ANSI-Medicare Part B 3j63vz51-1t47-91e8-40qv-r867m39k2927 5x38zj00-3g16-72m2-07ew-x139y14c9661 ANSI-Medicare Part B 4to9j588-2728-7389-0kix-35k11gicgct9 9pf6q402-3380-9085-4qev-43k83drxqhm2 ANSI-Medicare Part B c2844055-6zbg-187u-e4m4-dz7vej44l41k p5652884-7nnf-194e-b9g2-ry2lli53h46e MEDICARE PART B -PHYSICIAN [id number] 18 [id number] MEDICAID -I [id number] MEDICARE PART A -I [id number] MEDICARE [id number] SP [id number] MEDICAID [facility] [id number] SP [id number] MEDICARE [id number] SP [id number] MEDICARE UNAVAILABLE [place] MEDICARE [id number] SP [id number] 4 SELF PAY UNAVAILABLE [place] B[place] MEDICAID UNA[place]ILABLE SP [place] MEDICAID M [id number] S [id number] MEDICARE C [id number] S [id number] A Medicare [place] Medicare Primary [id number] Self [id number] MEDICARE - [place] MCR [id number] S [id number] [employer] MCR O MEBKFLHZ S MEB KFLHZ AETNA MEDICARE MEBKFLHZ SP MEBKF [id number] S [id number] [employer] [facility] MEDICAID MCD HMO [id number] S [id number] SELF PAY SP [place] S [place] [id number] SP [id number] MEDICARE [id number] SP [id number] MEDICARE PART A -O/P [id number] 18 [id number] MEDICAID -O/P [id number] Medicaid [facility] Other 0 [id number] Self 0 Medicare Part B of [facility] Other 0 [id number] Self 0 Medicaid [facility] Other 0 [id number] Self 0 Medicare Part B of [facility] Other 0 [id number] Self 0 Medicaid [facility] Other 0 [id number] Self 0 Medicare Part B of [facility] Other 0 [id number] Self 0 Medicaid [facility] Other 0 [id number] Self 0 Medicare Part B of [facility] Other 0 [id number] Self 0 MEDICAID -O/P EMERGENCY ROOM [id number] Medicaid [facility] Other 0 [id number] Self 0 Medicare Part B of [facility] Other 0 [id number] Self 0 Problems, Conditions, and Diagnoses Code Display Name Description Problem Type Effective Dates Data Source(s) I5020 Unspecified systolic (congestive) heart failure Unspecified systolic (congestive) heart failure Diagnosis 08/13/2020 02:20:00 PM EDT [facility] G4089 Other seizures Other seizures Diagnosis 08/13/2020 02:20: 00 PM EDT [facility] Z125 Encounter for screening for malignant ne oplasm of prostate Encounter for screening for malignant neoplasm of prostate Diagnosis 02:20:00 PM EDT [facility] I4820 Chronic atrial fibrillation, unspecified Chronic atrial fibrillation, unspecified Diagnosis 08/13/2020 02:20:00 PM EDT [facility] N1831 Chronic kidney disease, stage 3a Chronic kidney disease, stage 3a Diagnosis 08/13/2020 02:20:00 PM EDT [facility] E782 Mixed hyperlipidemia Mixed hyperlipidemia Diagnosis 08/13/2020 02:20:00 PM EDT [facility] I49.5 Sick sinus syndrome Sick sinus syndrome Diagnosis 0 08/06/2020 11:14:10 AM [facility] I48.21 Permanent atrial fibrillation Permanent atrial fibrill ation Diagnosis 08/06/2020 11:14:10 AM [facility] D539 Nutritional anemia, unspecified Nutritional anemia, un specified Diagnosis 07/14/2020 02:10:00 PM [facility] [id number] Cellulitis of other sites Cellulitis of other sites Di agnosis 06/04/2020 03:06:00 PM [facility] I639 Cerebral infarction, unspecified Cerebral infarc tion, unspecified Diagnosis 05/14/2020 09:53:00 AM [facility] N1830 Chronic kidney disease, stage 3 unspecif ied Chronic kidney disease, stage 3 unspecified Diagnosis 05/14/2020 09:53:00 AM [facility] Z71.3 Dietary management surveillance Dietary management davida veillance Problem 03/01/2021 12:00:00 AM EDT [facility] ([facility]) Z95.1 History of coronary artery bypass grafti ng History of coronary artery bypass grafting Problem 11/13/2020 12:00:00 AM EDT [facility] ([facility] I49.5 Sinus node dysfunction Sinus node dysfunction Problem 11/13/2020 12:00:00 AM EDT [facility] ([facility]) Z95.0 Cardiac pacemaker in situ Cardiac pacemaker in situ Pr oblem 11/13/2020 12:00:00 AM EDT [facility] ([facility]) I10 Essential hypertension Essential hypertension Problem 11/13/2020 12:00:00 AM EDT [facility] ([facility]) E78.00 Pure hypercholesterolemia Pure hypercholesterolemia Pr oblem 11/13/2020 12:00:00 AM EDT [facility] ([facility]) I45.19 Right bundle branch block Right bundle branch block Pr oblem 11/13/2020 12:00:00 AM EDT [facility] ([facility]) 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 Chronic ischemic heart disease Problem 11/13/2020 12:00:00 AM EDT [facility] ([facility]) R07.9 Chest pain Chest pain Problem 11/13/2020 12:00:00 AM ED T [facility] ([facility]) R60.0 Edema Edema Problem 11/13/2020 12:00:00 AM ED T [facility] ([facility]) 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 Problem 10/12/2020 12:00:00 AM EDT [facility] ([facility]) I48.21 Permanent atrial fibrillation Permanent atrial fibrill ation Problem 10/12/2020 12:00:00 AM EDT [facility] ([facility]) R94.31 Electrocardiogram abnormal Electrocardiogram abnormal Problem 10/12/2020 12:00:00 AM EDT [facility] ([facility]) Z86.718 History of thromboembolism of vein History of th romboembolism of vein Problem 10/12/2020 12:00:00 AM EDT [facility] ([facility] I25.10 Multi vessel coronary artery disease Mul ti vessel coronary artery disease Problem 10/12/2020 12:00:00 AM EDT [facility] ([facility] Z95.1 Hx of CABG Hx of CABG [id number] 08/06/2020 12:00:00 AM [facility] I25.5 Ischemic cardiomyopathy Ischemic cardiomyopathy [id number] 08/06/2020 12:00:00 AM [facility] 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 [id number] 08/06/2020 12:00:00 AM [facility] L97.812 [id number] Non-pressure chronic ulcer of other part of right lower leg with fat layer exposed Problem 07/10/2020 12:00:00 AM EST eCW1 ([facility]) L97.822 [id number] Non-pressure chronic ulcer of other part of left lower leg with fat layer exposed Problem 07/10/2020 12:00:00 AM EST eCW1 ([facility]) I87.311 [id number] Chronic venous hyper tension (idiopathic) with ulcer of right lower extremity Problem 07/10/2020 12:00:00 AM EST eCW1 ([facility]) I87.312 [id number] Chronic venous hyper tension (idiopathic) with ulcer of left lower extremity Problem 07/10/2020 12:00:00 AM EST eCW1 ([facility]) Surgeries/Procedures Procedure Description Date Indications Data Source(s) ECG ROUTINE ECG W/LEAST 12 LDS W/I&R 03/01/2021 12:00: 00 AM EDT [facility] ([facility]) OFFICE OUTPATIENT VISIT 25 MINUTES 03/01/2021 12:00:00 AM EDT [facility] ([facility]) OFFICE OUTPATIENT VISIT 15 MINUTES 01/25/2021 12:00:00 AM EDT [facility] ([facility]) Arterial Pressure Waveform Analysis For Assessment Of Centra l Art 12/25/2020 12:00:00 AM EDT [facility] ([facility]) OFFICE OUTPATIENT VISIT 15 MINUTES 12/25/2020 12:00:00 AM EDT [facility] ([facility]) ECG ROUTINE ECG W/LEAST 12 LDS W/I&R 11/13/2020 12:00: 00 AM EDT [facility] ([facility]) Arterial Pressure Waveform Analysis For Assessment Of Centra l Art 11/13/2020 12:00:00 AM EDT [facility] ([facility]) OFFICE OUTPATIENT NEW 45 MINUTES 11/13/2020 12:00:00 A M EDT [facility] ([facility]) BLOOD COUNT COMPLETE AUTOMATED <td>CBC</td><td>Timed</ td><td>08/08/2020 6:34 AM EST</td><td></td><td> </td> 08/08/2020 11:34:00 AM EST [facility] XR CHEST PORTABLE <td>XR CHEST PORTABLE</td><t d>STAT</td><td>08/07/2020 4:57 PM EST</td><td></td><td> </td> 08/07/2020 09:57:13 PM EST [facility] INSERTION MICRA LEADLESS PPM <td>INSERTION MICRA LEADL ESS PPM</td><td>Routine</td><td>08/07/2020 3:37 PM EST</td><td> Permanent atrial fibrillation</td><td> </td> 08/07/2020 08:37:07 PM EST Permanent atrial fibrillation [facility] Permanent atrial fibrillation BLOOD COUNT COMPLETE AUTOMATED <td>CBC</td><td>Routine </td><td>08/07/2020 7:37 AM EST</td><td></td><td> </td> 08/07/2020 12:37:00 PM EST [facility] BASIC METABOLIC PANEL CALCIUM TOTAL <td>BASIC METABOLI C PANEL</td><td>Routine</td><td>08/07/2020 7:37 AM EST</td><td></td><td> </td> 08/07/2020 12:37:00 PM EST [facility] XR CHEST PORTABLE <td>XR CHEST PORTABLE</td><t d>Routine</td><td>08/06/2020 3:10 PM EST</td><td></td><td> </td> 08/06/2020 08:10:22 PM EST [facility] BLOOD COUNT COMPLETE AUTOMATED <td>CBC</td><td>Routine </td><td>08/06/2020 11:53 AM EST</td><td></td><td> </td> 08/06/2020 04:53:00 PM EST [facility] BASIC METABOLIC PANEL CALCIUM TOTAL <td>BASIC METABOLI C PANEL</td><td>Routine</td><td>08/06/2020 11:53 AM EST</td><td></td><td> </td> 08/06/2020 04:53:00 PM EST [facility] ECG ROUTINE ECG W/LEAST 12 LDS TRCG ONLY W/O I&R <td>E CG 12- LEAD</td><td>Routine</td><td>08/06/2020 11:44 AM EST</td><td></td><td></td> 08/06/2020 04:44:[address] [facility] COVID/FLU AB/RSV PCR <td>COVID/FLU AB/RSV PCR</td ><td>STAT</td><td>08/06/2020 11:35 AM EST</td><td></td><td> </td> 08/06/2020 04:35:00 PM EST [facility] FINE NEEDLE ASPIRATION W/O IMAGING GUIDANCE 07/24/2020 12:00:00 AM EST eCW1 ([facility]) XTRNL ECG < 48 HR RECORD SCAN STOR W/PHY R&I 12:00:00 AM EST [facility] (Neymar Hilario MD) FINE NEEDLE ASPIRATION W/O IMAGING GUIDANCE 07/17/2020 12:00:00 AM EST eCW1 ([facility]) ECG ROUTINE ECG W/LEAST 12 LDS W/I&R 07/14/2020 12:00: 00 AM EST [facility] (Neymar Hilario MD) ECHO TTHRC R-T 2D W/WOM-MODE COMPL SPEC&COLR DOP 07/14 12:00:00 AM EST [facility] (Neymar Hilario MD) FINE NEEDLE ASPIRATION W/O IMAGING GUIDANCE 07/10/2020 12:00:00 AM EST eCW1 ([facility]) Medication: Aquaphor healing ointment topical 07/10/19 12:00:00 AM EST eCW1 ([facility]) Medication: 2% Lidocaine intradermal 07/10/2020 12:00: 00 AM EST eCW1 ([facility]) ELECTROCARDIOGRAM, COMPLETE (EKG) ELECTROCARDIOGRAM, COMPLET E (EKG) 03/30/2020 12:00:00 AM EST [place] ([facility]) ELECTROCARDIOGRAM, COMPLETE (EKG) ELECTROCARDIOGRAM, COMPLET E (EKG) 03/30/2020 12:00:00 AM [facility] ([facility]) Results ID Date Data Source [id number] 03/01/2021 12:00:00 AM EDT [facility] Name Value Range Interpretation Code Description Data Chela rce(s) Supporting Document(s) SARS coronavirus 2 Ag NEGATIVE [facility] This lab was ordered by [facility] and reported by [facility]. ID Date Data Source [id number] 02/24/2021 12:44:00 PM EDT [facility] ([facility]) Name Value Range Interpretation Code Description Data Chela rce(s) Supporting Document(s) Calcium [Mass/volume] in Serum or Plasma 8.8 [facility] ([facility]) Sodium 140 [facility] ([facility]) Carbon dioxide, total [Moles/volume] in Serum or Plasma 28 [facility] ([facility]) Chloride [Moles/volume] in Serum or Plasma 105 [facility] ([facility]) Potassium [Moles/volume] in Serum or Plasma 3.7 [facility] ([facility]) Blood Urea Nitrogen 33 7-18 [facility] ([facility]) Glucose 101 83-110 [facility] Creatinine 2.09 0.6-1.0 [facility] ([facility]) Glomerular filtration rate/1.73 sq M.pre dicted [Volume Rate/Area] in Serum or Plasma by Creatinine-based formula (MDRD) 33.6 [facility] ([facility]) ID Date Data Source [id number] 02/24/2021 12:00:00 AM EDT [facility] Name Value Range Interpretation Code Description Data Chela rce(s) Supporting Document(s) SARS coronavirus 2 Ag NEGATIVE [facility] and [facility] by [facility]. ID Date Data Source [id number] 02/10/2021 03:00:00 PM EDT [facility] Name Value Range Interpretation Code Description Data Chela rce(s) Supporting Document(s) SARS coronavirus 2 Ag [facility] and reported by [facility]. ID Date Data Source [id number] 02/03/2021 12:00:00 AM EDT [facility] Name Value Range Interpretation Code Description Data Chela rce(s) Supporting Document(s) SARS coronavirus 2 Ag NEGATIVE [facility] and reported by [facility]. ID Date Data Source [id number] 01/21/2021 12:46:00 PM EDT [facility] ([facility]) Name Value Range Interpretation Code Description Data Chela rce(s) Supporting Document(s) Natriuretic peptide.B prohormone N-Terminal [Mass/volu me] in Serum or Plasma 786 [facility] ([facility]) ID Date Data Source [id number] 01/21/2021 12:46:00 PM EDT [facility] ([facility]) Name Value Range Interpretation Code Description Data Chela rce(s) Supporting Document(s) Calcium [Mass/volume] in Serum or Plasma 8.7 [facility] ([facility]) Sodium 139 [facility] ([facility]) Carbon dioxide, total [Moles/volume] in Serum or Plasma 29 [facility] ([facility]) Chloride [Moles/volume] in Serum or Plasma 105 [facility] ([facility]) Potassium [Moles/volume] in Serum or Plasma 4.1 [facility] ([facility]) Glucose 82 83-110 [facility] ([facility]) Blood Urea Nitrogen 34 7-18 [facility] ([facility]) Glomerular filtration rate/1.73 sq M.pre dicted [Volume Rate/Area] in Serum or Plasma by Creatinine-based formula (MDRD) 35.1 [facility] ([facility]) Creatinine 2.01 0.6-1.0 [facility] ([facility]) ID Date Data Source [id number] 01/18/2021 02:37:00 PM EDT [facility] ([facility]) Name Value Range Interpretation Code Description Data Chela rce(s) Supporting Document(s) Calcium [Mass/volume] in Serum or Plasma 8.7 [facility] ([facility]) Carbon dioxide, total [Moles/volume] in Serum or Plasma 26 [facility] ([facility]) Sodium 140 [facility] ([facility]) Glucose 111 83-110 [facility] ([facility]) Chloride [Moles/volume] in Serum or Plasma 107 [facility] ([facility]) Potassium [Moles/volume] in Serum or Plasma 3.9 [facility] ([facility]) Creatinine 1.89 0.6-1.0 [facility] ([facility]) Blood Urea Nitrogen 31 7-18 [facility] ([facility]) Glomerular filtration rate/1.73 sq M.pre dicted [Volume Rate/Area] in Serum or Plasma by Creatinine-based formula (MDRD) 37.7 [facility] ([facility]) ID Date Data Source [id number] 01/18/2021 02:37:00 PM EDT [facility] ([facility]) Name Value Range Interpretation Code Description Data Chela rce(s) Supporting Document(s) White Blood Count 4.6 5.0-10.0 [facility] ([facility]) Red Blood Count 3.70 4.00-5.40 [facility] ([facility]) Platelets 158 172-450 [facility] ([facility]) Hemoglobin 11.9 [facility] ([facility]) Hematocrit 36.2 [facility] ([facility]) ID Date Data Source [id number] 01/18/2021 12:46:00 PM EDT [facility] ([facility]) Name Value Range Interpretation Code Description Data Chela rce(s) Supporting Document(s) Natriuretic peptide.B prohormone N-Terminal [Mass/volu me] in Serum or Plasma 783 [facility] ([facility]) ID Date Data Source [id number] 10/29/2020 12:00:00 AM EDT [facility] Name Value Range Interpretation Code Description Data Chela rce(s) Supporting Document(s) SARS coronavirus 2 Ag NEGATIVE [facility] This lab was ordered by [facility] and reported by [facility]. ID Date Data Source [id number] 10/15/2020 12:00:00 AM EDT [facility] Name Value Range Interpretation Code Description Data Chela rce(s) Supporting Document(s) SARS coronavirus 2 Ag NEGATIVE [facility] This lab was ordered by [facility] and reported by [facility]. ID Date Data Source [id number] 10/12/2020 12:00:00 AM EDT [facility] Name Value Range Interpretation Code Description Data Chela rce(s) Supporting Document(s) SARS coronavirus 2 Ag NEGATIVE [facility] This lab was ordered by [facility] and reported by [facility]. ID Date Data Source 10/07/2020 12:00:00 AM EDT [facility] Name Value Range Interpretation Code Description Data Chela rce(s) Supporting Document(s) SARS coronavirus 2 Ag NEGATIVE [facility] This lab was ordered by [facility] and reported by [facility]. ID Date Data Source [id number] 10/06/2020 04:43:00 PM EDT [facility] ([facility]) Name Value Range Interpretation Code Description Data Chela rce(s) Supporting Document(s) Platelets 204 150-450 [facility] ([facility]) White Blood Count 6.0 4.0-10.0 [facility] ([facility]) Red Blood Count 3.99 4.30-6.10 [facility] ([facility]) Hemoglobin 12.5 [facility] ([facility]) Hematocrit 39.1 [facility] ([facility]) ID Date Data Source [id number] 10/06/2020 04:43:00 PM EDT [facility] ([facility]) Name Value Range Interpretation Code Description Data Chela rce(s) Supporting Document(s) Magnesium Level 2.3 1.8-2.4 [facility] ([facility]) ID Date Data Source [id number] 10/06/2020 04:43:00 PM EDT [facility] ([facility]) Name Value Range Interpretation Code Description Data Chela rce(s) Supporting Document(s) Blood Urea Nitrogen 25 7-18 [facility] ([facility]) Glucose 121 70-100 [facility] ([facility]) Potassium 4.2 3.5-5.1 [facility] ([facility]) Creatinine 1.50 0.70-1.30 [facility] ([facility]) Sodium 139 136-145 [facility] ([facility]) Carbon Dioxide 29 21-32 [facility] ([facility]) Chloride 106 98-107 [facility] ([facility]) Calcium 9.0 8.2-9.6 [facility] ([facility]) Glomerular filtration rate/1.73 sq M.pre dicted [Volume Rate/Area] in Serum or Plasma by Creatinine-based formula (MDRD) 49.3 [facility] ([facility]) ID Date Data Source [id number] 10/05/2020 12:00:00 AM EDT [facility] Name Value Range Interpretation Code Description Data Chela rce(s) Supporting Document(s) SARS coronavirus 2 Ag NEGATIVE [facility] This lab was ordered by [facility] and reported by [facility]. ID Date Data Source [id number] 09/29/2020 08:22:00 AM EDT [facility] Name Value Range Interpretation Code Description Data Chela rce(s) Supporting Document(s) SARS coronavirus 2 RNA [Presence] in Res piratory specimen by DORA with probe detection NEGATIVE [facility] This lab was ordered by [facility] a nd reported by [facility]. ID Date Data Source [id number] 09/23/2020 06:12:00 PM EDT [facility] Name Value Range Interpretation Code Description Data Chela rce(s) Supporting Document(s) SARS coronavirus 2 RNA [Presence] in Res piratory specimen by DORA with probe detection NEGATIVE [facility] This lab was ordered by [facility] a nd reported by [facility]. ID Date Data Source [id number] 09/12/2020 04:29:00 PM EDT [facility] ([facility]) Name Value Range Interpretation Code Description Data Chela rce(s) Supporting Document(s) Hemoglobin A1c/Hemoglobin.total in Blood 5.8 [facility] ([facility]) ID Date Data Source [id number] 09/12/2020 04:29:00 PM EDT [facility] ([facility]) Name Value Range Interpretation Code Description Data Chela rce(s) Supporting Document(s) Triglycerides 86 [facility] ([facility]) Cholesterol 124 [facility] ([facility]) Cholesterol in LDL [Mass/volume] in Serum or Plasma by calculation 65 [facility] ([facility]) Chol/HDL Ratio 3.0 [facility] ([facility]) HDL 42 [facility] ID Date Data Source [id number] 08/21/2020 07:30:00 AM EDT [facility] Name Value Range Interpretation Code Description Data Chela rce(s) Supporting Document(s) Levetiracetam [Mass/volume] in Serum or Plasma <1.0 ug/mL 10.0-40.0 L [facility] This test was developed and its performa nce characteristicsdetermined by [facility]. It has not been cleared or approvedby the Food and Drug Administration. ID Date Data Source [id number] 08/16/2020 06:24:00 AM EDT [facility] Name Value Range Interpretation Code Description Data Chela rce(s) Supporting Document(s) Triiodothyronine (T3) Free [Mass/volume] in Serum or Plasma 2.3 pg/ mL 2.0-4.4 [facility] ID Date Data Source [id number] 08/13/2020 03:43:00 PM EDT [facility] Name Value Range Interpretation Code Description Data Chela rce(s) Supporting Document(s) [facility] Cholesterol [Mass/volume] in Serum or Plasma 149 MG/DL 131 - 200 [facility] Deprecated Triglyceride [Mass/volume] in Serum or Plasma 157 MG/DL 3 5 - 160 [facility] HDL 45 MG/DL 29 - 86 [facility] Cholesterol in LDL [Mass/volume] in Serum or Plasma by Direc t assay 94 mg/dL 65 - 175 [facility] Cholesterol.total/Cholesterol in HDL [Mass Ratio] in Serum o r Plasma 3.3 3.4 - 4.9 L [facility] LDL/HDL 2.09 1.00 - 3.55 [facility] CVE RISK CHOL/HDL LDL/HDLMEN: 1/2 AVERAGE 3.43 1.00 AVERAGE 4.97 3.55 2X AVERAGE 9.55 6.25 3X AVERAGE 23.99 7.99WOMEN: 1/2 AVERAGE 3.27 1.47 AVERAGE 4.44 3.22 2X AVERAGE 7.05 5.03 3X AVERAGE 11.04 6.14 ID Date Data Source [id number] 08/13/2020 03:42:00 PM EDT [facility] Name Value Range Interpretation Code Description Data Chela rce(s) Supporting Document(s) Creatine kinase [Enzymatic activity/volume] in Serum or Plasma 9 7 U/L 30 - 170 [facility] ID Date Data Source [id number] 08/13/2020 03:38:00 PM EDT [facility] Value Range Interpretation Code Description Data Chela rce(s) Supporting Document(s) BNP 933 PG/ML 0 - 125 [facility] ID Date Data Source [id number] 08/13/2020 03:38:00 PM EDT [facility] Name Value Range Interpretation Code Description Data Chela rce(s) Supporting Document(s) Prostate specific Ag [Mass/volume] in Serum or Plasma 0.90 ng/mL 0.00 - 4.00 [facility] \\BLDo\\PSA INTERPRETA TION\\BLDx\\ The PSA assay should [...] be used interchangeably. ID Date Data Source [id number] 08/13/2020 03:38:00 PM T [facility] Value Range Interpretation Code Description Data Chela rce(s) Supporting Document(s) Thyroxine (T4) free index in Serum or Plasma by calculation 1.01 NG/DL 0.93 - 1.70 [facility] ID Date Data Source [id number] 08/13/2020 03:38:00 PM EDT [facility] Name Value Range Interpretation Code Description Data Chela rce(s) Supporting Document(s) Thyrotropin [Units/volume] in Serum or Plasma by Detec tion limit <= 0.05 mIU/L 0.71 uIU/mL 0.47 - 5.01 [facility] ID Date Data Source [id number] 08/13/2020 03:01:00 PM EDT [facility] Name Value Range Interpretation Code Description Data Chela rce(s) Supporting Document(s) CBC NO DIFF [facility] COMPLETE BLOOD COUNT Leukocytes [#/volume] in Blood by Automated count 6.3 10^3/uL 4.2 - 1 1.0 [facility] Erythrocytes [#/volume] in Blood by Automated count 4.10 10^6/uL 4. 50 - 6.30 L [facility] Hemoglobin [Mass/volume] in Blood 13.1 g/dL 14.0 - 16.0 L [facility] Hematocrit [Volume Fraction] of Blood by Automated count 40.0 % 4 1.0 - 51.0 L [facility] Erythrocyte mean corpuscular volume [Entitic volume] by Auto mated count 97.6 fL 80.0 - 94.0 H [facility] Erythrocyte mean corpuscular hemoglobin [Entitic mass] by Automated count 32.0 pg 27.0 - 34.0 [facility] Erythrocyte mean corpuscular hemoglobin concentration [Mass/volume] by Automated count 32.8 g/dL 31.0 - 36.0 [facility] Erythrocyte distribution width [Ratio] by Automated count 14.2 % 11.5 - 14.8 [facility] Platelets [#/volume] in Blood by Automated count 176 10^3/uL 150 - 45 0 [facility] Platelet mean volume [Entitic volume] in Blood by Automated count 11.1 fL 7.4 - 10.4 H [facility] ID Date Data Source [id number] 08/13/2020 02:52:00 PM EDT [facility] Name Value Range Interpretation Code Description Data Chela rce(s) Supporting Document(s) Prothrombin time (PT) 24.8 SECONDS 11.0 - 15.5 H [facility] INR in Platelet poor plasma by Coagulation assay 2.12 0.93 - 1. 23 H [facility] aPTT in Blood by Coagulation assay 49.3 SECONDS 24.8 - 36.7 H [facility] \\BLDo\\INR INTERPRETATION\\BLDx\\ Therapeutic range for Coumadin and related oral 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s. - International Normalized Ratio (INR): 2.0 - 3.0 for Venous Thrombosis, Pulmonary Embolus, Tissue heart valves, Acute [place] Atrial Fibrillation, Valvular heart disease and recurrent Systemic Embolism. - International Normalized Ratio (INR): 2.5 - 3.5 for Mechanical Prosthetic valve. ID Date Data Source [id number] 08/10/2020 11:10:25 AM EDT [facility] NT INFORMATIONPatient MRN Name Date of Age Gend*PT [id number] Roberto Gil 1950 70 years M IPPT Location Admission Date/Time Visit ID Attending [id number] 08/06/20 1114 --- --- EPI ID CSN Admitting Provider [id number] Juaquin Sylvester MD([id number]) Attestation signed by Juaquin Sylvester MD at 08/10/2020 11:10 AMATTENDING ADDENDUM:I saw and examined Mr. 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 [...] that the patient was recently [place]estive heart failure. He was seen in [...] Name Value Range Interpretation Code Description Data [facility] Supporting Document(s) ID Date Data Source [id number] 08/08/2020 04:20:00 PM EST [facility] ([facility]) Name Value Range Interpretation Code Description Data [facility] rce(s) Supporting Document(s) White Blood Count 4.5 [facility] ([facility]) Red Blood Count 3.79 [facility] ([facility]) Platelets 100 [facility] ([facility]) Hemoglobin 12.2 [facility] ([facility]) Hematocrit 36.6 [facility] ([facility]) ID Date Data Source [id number] 08/08/2020 07:31:55 AM EST [facility] Name Value Range Interpretation Code Description Data Chela rce(s) Supporting Document(s) WBC 4.5 10*3/uL (4.1-11.0) [facility] RBC 3.79 10*6/uL (4.60-6.10) L [facility] HGB 12.2 g/dL (13.5-18.0) L [facility] HCT 36.6 % (41.0-53.0) L [facility] MCV 96.6 fL (80.0-95.0) H [facility] MCH 32.2 pg (27.0-32.0) H [facility] MCHC 33.4 g/dL (32.0-36.0) [facility] RDW 15.0 % (10.5-14.5) H [facility] PLT 100 10*3/uL (150-450) L [facility] MPV 9.8 fL (7.1-10.7) [facility] ID Date Data Source [id number] 08/07/2020 05:11:26 PM EST [address] [id number] Name: ROBERTO James LOUISEDOB: 1950Sex: MOrdering Provider: Juaquin Flores Prov: Juaquin Cannon Provider: Procedure Performed: XR CHEST PORTABLEExam Date: 08/07/2020 16:57MRN: [id number] Number: [id number] Class: InpatientAccount #: [id number] for Exam: ppmTechnique: AP portable view obtained.Comparison: [...] TAYLOR BUSTOS On 08/07/2020 5:11 PMWorkstation ID: [id number] Name Value Range Interpretation Code Description Data Chela rce(s) Supporting Document(s) ID Date Data Source [id number] 08/07/2020 04:22:00 PM EST [facility] ([facility]) Name Value Range Interpretation Code Description Data Chela rce(s) Supporting Document(s) Albumin [Mass/volume] in Serum or Plasma 3.7 [facility] ([facility]) Alanine aminotransferase [Enzymatic activity/volume] in Serum or Pl asma 15 [facility] ([facility]) Calcium [Mass/volume] in Serum or Plasma 8.6 [facility] ([facility]) Carbon dioxide, total [Moles/volume] in Serum or Plasma 24 [facility] ([facility]) Chloride [Moles/volume] in Serum or Plasma 110 [facility] ([facility]) Potassium [Moles/volume] in Serum or Plasma 4.0 [facility] ([facility]) Alkaline phosphatase [Enzymatic activity/volume] in Serum or Plasma 7 5 [facility] ([facility]) Protein [Mass/volume] in Serum or Plasma Laboratory test result [facility] ([facility]) Aspartate aminotransferase [Enzymatic activity/volume] in Serum or Plasma 14 [facility] ([facility]) Sodium 142 [facility] ([facility] Glucose 95 [facility] ([facility]) Creatinine For GFR 1.20 [facility] ([facility]) Urea nitrogen [Mass/volume] in Serum or Plasma 18 [facility] ([facility]) ID Date Data Source [id number] 08/07/2020 03:48:35 PM EST [facility] Name Value Range Interpretation Code Description Data Chela rce(s) Supporting Document(s) &PDF [facility] [id number]/LXJojXYIkm5HvIGznDLa4OBhgIBFaE9FztUbuVJ9NU5UNZSXQYHRAH03ZKaQX 0b3 [file] YY9JcAGbSAPhYGSjkYXhKVz4A88usVTeAKetNW5AQBY+Neelam+Ag6OCLCjVAZuETHlPoIoXTBRSdCgD6Yn A1TQp3EkQ8GbRO54fNdgxmDdAEprQD5YHD3jTLUzWFGGUJ4BoUCwaR0ynjE3GSMaSXIIZfApP04igVTl ZVMjUZZ0UHWiRr9KPEGbF3JnkxIfrMigtnDsTEZbPS ZRDW2FHXibbiAadSHxlJytLN29cEifIQ3GWi5NPxLlFM9pqv4MsJYbPv1GCPP5HE4BAFJjDVOgWYDbSL R1LZUyJpNaEPdpPDHcCDExNZM9EMWfERIfJB0BEiOoKWGeXQckSezpMKAoOWNkec9SGKDhMVR5APsoMC QxILJmBFFgSUoqNWCpGNFiLVz1QAHiTEQlIQ5VUjLw ZPDiWDN6SMvtRREtZMAyyj7ASIDiDWD6DWS7HmDjQZCkOVZqWZjtXMQnSJI0BoFsUCGcHUPoBJ9LBcQl JLPeDUl8CzUuBXBoYCOjbq2SQTGyFVU6HFW8UYPxPZGrCLRuPNatVZGyTOO5VmL5UIFuIDDrWC1KKcHs VYJpVIn5DsOjHADlRGBtte7MWCSaLPQ8CZB0GKYmCV NiCODwYGsxRUFhEQGhZrV3ENXbJTOpWD3KZkFuMIBnATQ4OcWbGYEbHSNdqt7BKZPmEMJ1TZFaQyXhYY TaWQBtHTisYDDuSWRyTrS1URZqNTHrWM6EBuUuHYAnWJO6BvDrZZAcNDBvbl0KYSYlDLN7YEKxOeWpPE NuFUGwPSobBOZuSZVgCukdGILzKSGeNM1WFmFzBONs KUPmNsVtALLoKWUzuz7LRDBsFBKhGug5TNVgKCLfIBBjRLizQCTgOLJ7NLr3JBTdWADqII5FFeKoXXGw QRmaYDVmSTUgIKBvpx5JYJWfFASbHQM6VNAwWKLeBSXkXBgtIUJgUGQbImIqZZIkPUMlXH4IZnWqSSLg EUZ5UWziQRBlPJSrql1ERCXcGRAzHRK3CIEwRWHvHU KkWWmfQOJpVNNqHzZ2LXKqFDUrTT5KIdAdFNPbVEO7YTGxNIKlMKRnri7WXXBoOBXiNbFqLHNtGBNdGD PwUDabIVNzVOVaDtW5ISLmXVUdSJ4IAiRqJDOnJcMsGWqyFGWhCAIdsf3JKLTiFKNwODJcYJPxDGAqZD EkSUvqKCXdFDE3DSX5SAWhFZEjYY9CSwJaWBNwCpE8 BqAmPFXzLKAqsc2RGTPnXZIpRViwHyCaUWJnSWYoHYmnGAKfTAT3BMMuBMItCVRjQS2SFrZaKZTmEiTe RbimJYNvWNRqfi0KWVLzIOBaHkHsCvEcSTNtKCJfGHavNNDqKKV6ECC2MWZuVQWtSO2OYzPpZUTjXsa1 DoRrCPPfUZIvhg5JAAOuOIG9QsD1DCOaXXVbHXCwPL exCQNvPHT0HVX4VYSxUEWpTK4WSsWeMXPqZPh1WyKlNEKqKEPfks4LKABkJOC6CTqoFiVfRNSkBYBmAS qwRGHtYTY9UIafHCOjPNXwYJ7UKzPvMTDuSSB5NQJpOGLcGCAbow7VdUCfuNfvkn9XMNjOVc7LzVboKN A1WGlmOc6xaPL9JbVrMZCGNl6UziAcMWOgVLESHFnt ETAdOLSaFAV6TgW0VvEiABQ2YnSqQPi6RoVuYMS6EJKiMXJ3EcP6UjMpIxAiDjfhQIX7ZKQtMxX0WIbl TFE9LOEeAXB5OPQ+ZQ9oOUq+Tz7Dx2KxcpL2zaPfESq1IRA0VU7LWSIPE0OPDv== ID Date Data Source [id number] 08/07/2020 08:04:56 AM EST [facility] NT INFORMATIONPatient MRN Name Date of Age Gend*PT [id number] Roberto Gil Erika 1950 70 years M IPPT Location Admission Date/Time Visit ID Attending [id number] 08/06/20 1114 --- Juaquin Sylvester MD([id number]) EPI ID CSN Admitting Provider [id number] Juaquin Sylvester MD([id number]) Attestation signed by Juaquin Sylvester MD at [...] the plan as noted above.Indra Sylvester M.D., [facility]Clinical Cardiac Electrophysiology08/07/2020 6:51 AM --ADMISSION [...] that the patient was recently [place]ive heart [place]. He was seen in [...] file Gets together: Not on file Attends restorationism service: Not on file Active member of [...] or lumps.DiagnosticsLabResults from last 7 daysLab Units [id number] mg/dL 1.12Results from last 7 daysLab Units [...] medications,per the CM. 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 Full CodeMed rec pending - awaiting med list from PCP office as well.Patient follows with Dr Hilario.Signature: LUISA SKY NPDate: August 06, 2020Time: 12:37 PM Name Value Range Interpretation Code Description Data Chela rce(s) Supporting Document(s) ID Date Data Source [id number] 08/07/2020 09:23:20 AM EST [facility] Name Value Range Interpretation Code Description Data Chela rce(s) Supporting Document(s) SODIUM 142 mmol/L (136-145) [facility] POTASSIUM 4.0 mmol/L (3.6-5.2) [facility] CHLORIDE 110 mmol/L (100-108) H [facility] CO2 24 mmol/L (22-31) [facility] ANION GAP 8 mmol/L (7-16) [facility] UREA NITROGEN 18 mg/dL (7-24) [facility] CREATININE 1.20 mg/dL (0.80-1.30) [facility] BUN/CREAT RATIO 15.0 RATIO (10.0-20.0) [facility] GLUCOSE 95 mg/dL (70-99) [facility] CALCIUM 8.6 mg/dL (8.4-10.2) [facility] GFR 60 ml/min/1.73m2 (>59) [facility] GFR ( AMER) >60 ml/min/1.73m2 (>59) [facility] GFR INTERPRETATION [facility] --NORMAL KIDNEY FUNCTION OR MILD DISEASE - GFR >OR= 60CHRONIC KIDNEY DISEASE - GFR 15 - 59RENAL FAILURE - GFR <15 Est. GFR calculation based on the MDRDstudy equation, which assumes a steadystate for creatinine. Est. GFR should notbe used for medication dosing. ID Date Data Source [id number] 08/07/2020 08:47:57 AM EST [facility] Name Value Range Interpretation Code Description Data Chela e(s) Supporting Document(s) WBC 4.7 10*3/uL (4.1-11.0) [facility] [place] RBC 3.86 10*6/uL (4.60-6.10) L [facility] HGB 12.4 g/dL (13.5-18.0) L [facility] HCT 36.8 % (41.0-53.0) L [facility] MCV 95.5 fL (80.0-95.0) [facility] MCH 32.2 pg (27.0-32.0) [facility] MCHC 33.7 g/dL (32.0-36.0) [facility] RDW 15.3 % (10.5-14.5) H [facility] PLT 106 10*3/uL (150-450) L [facility] MPV 9.9 fL (7.1-10.7) [facility] ID Date Data Source [id number] 08/06/2020 03:14:51 PM EST [address] [id number] Name: ROBERTO GILDOB: 1950Sex: MOrdering Provider: LUISA SKYAuthochung Prov: LUISA Fallon Provider: Procedure Performed: XR CHEST PORTABLEExam Date: 08/06/2020 15:10MRN: [id number] Number: [id number] Class: InpatientAccount #: [id number] for Exam: dyspneaTechnique: AP portable view obtained.Comparison: [...] LAZARUS BASURTO On 08/06/2020 3:14 PMWorkstation ID: [id number] Name Value Range Interpretation Code Description Data Chela rce(s) Supporting Document(s) ID Date Data Source [id number] 08/06/2020 12:51:46 PM EST [facility] Name Value Range Interpretation Code Description Data Chela rce(s) Supporting Document(s) EKG [facility] SQTPMn0gYaLGClAyq8KsXdCbANMbMG3zzxw2Z7W9rKOjF4YouWQer5qwI2KpE9WkZDIiWNIJNV0DwXHg jb2 [file] 5VOnHycqFqzOdnex0feARixmvCt7pnsmmc0sKr+Fried Cake Maker [file] /aGM+4W9V2S6yrKiVD1Wm6N73B60q67H89Mo3B/oB/ QT+lp0ui2Sm6Vpgb2z4yHi/Xn2icu+OzA22BwSbGAzK6/piWsxn8HyfPICUtiLgcsI5F10R+EgVYZ+Qj +oE2Mi3Dvfy2q44ng0cC/l0su+grzDRE0S5nD4F6Hu2AbW410LArJN+rY5e22GV1Fg2Y1wj+gxDQm540 hsoKtXU5psrx+3IcPvRE19+t7Qe36z2KPK4AXsOvlB I2a7o972Nom32C/YV/wdF3va3Z7jA7Ch4HxJ+trYNCf0OAY7pczdlR6sT/NzBHdUueoJ++fFlzv371El y40Zrp92Zru20U88Pr2NDb7r3QqcslDmV03sPrbtq3uU8Co+bxn6A/1xeldRwmn4KP/Tm7z3vTdX18ZA NdaqU0P+8xh5EzjL2xdVnKo0TH2BXwl47mEGhkCQg6 MlKdqbSz/L4qX6p9cz5KFAxDMyBII7q6fzUfyNqtc6jNaVTYJbHn4+tE76qQJW0eZ3+rL+tXfuLP/0Wq kI+9aufDSrn2vxZ+odvgo30Uws9hrql1wn/NPn5/WvvVPjP+hzkx2lqgKG++zYono90WzgAr9jTOeEdc cn5Da8H/vqHh/tzXKHvkM/oB+xN0r5EawMThJ0b383 Bfc16RZ/v/YOjf+fx5087VLtgDM3Kg5P54FolG/y3sK+yn4I+yrvP+yrq+38snsaB6/7ez226K1N++qV wt03siv/EvbVvYdT/Ml70oTyuTE/ag30clDB8ezivJLv5sRdL+zg8HDue8hdjjEloj0dhH/FsGGYu6BG sK+Kajwhr4inu7Ka2dXm/+u6Lxqk0kkb28Q+mlrhkn 5M8MBDT3C9wAwo/V6uHdboVIED+e0mKUHeZXX4/PPLUBDlv/cJSeUEs3hB8xUMX59grXm/6b8j/UA946 dvKs+n4tN2eL/GuIqwivxGjqiK/MZsWr/aus+cJ4qjh4rHnVg2FIFfzz3KdXbnUbHsKjsYWAPm/xjBFP l/RSzFX5+3KP/+1451gf4Cu578/b8t/vzEf2Z8DM21 vy3m+YiisJZ1/v7f/mX5V0/ew6+9xZH9j6aiw33WiIz6wMwPDX7P6O6+5uQInshxErETfx/axL1lX9z8 GeKYjy2KkTa2QaWjje2AxUvkpgFb3tsXPiM1mtJsoh5lcL0FFvEERsVl5f5FCJT3ufq1cXwMV6/vweZl FgiPS7Z1b/+jQad0z4lUnP55uA9txUc5AegfkT3MfW 0j05r49dry/43nT//Vt1137FrIxz/v8HK1231fNI7dmjKROkobuQ5WJo/QH5V/+niXRWBElaE/0J/Qx7 k/+1yN6YnHl//oZ1/44rSCBU0p1lRIkumA52/4/jQokaq2nyXO/OyrX+2niJ22rylh1FrmE3+h25Drpv hy6DY0Ig4pVN0Cx9O/pf/VI4VQ0ba+usbGK8KWmS/t JA4XTxUUxqf7ApsDbQu+3eiPL1U0Vc/sRZbfZf4esXfakmxR/YZ+Q3+rO6Kl00yg8UQdKc3e4yb6zMD9 zzd0Gvtvp0w7ovD8Up9JEnba43j91kAh2F5LVdAZ7J/K0B/oT+bQ98UUiHXb1Ef32T9j/b/fO667wTw/ 1+qop1d/cpFlAtA8Qf2miaNpR4fGahG4/aEM/YH+lH 5/K8dSK2P/c73Z9HdgQVLi6t83G1b8vR/93qB3V0bI2DWS/4R+Qb+y34GAyaUf5ckhEDj+fB/Y7AV5h1 qfj+P4aK/u+gG3b9Ohof/Vn90E9D8l13C6K6e41J4vTh+u/oyMVc6fFqR1kxHyJSIaItsyg5m0YiOtsf A93Nnt3axwVw+gH+8+RpJttkKf4Mhv8qrlQ60oB0/2 tctDQBKs3bOIy2pW/tde9yz/9K5j/EP5p4/7lOKmWRl7Bp6OpmK+qPzTd+l/1W3k2FovkzgtfvXbF/Ag FoSi/NNP6X/f9BmlF3EFB6e+V/Gj9g7DS+5hPm8m9/0bAQe/DWdFC7VqxJyF/NrbPul/7K1o6euRb3/U bJR/7W0u/a+9zaX/tbc16X/wjJ581nOR/YZ+Q/9rb+ qc00mcm0ony/kdn98NkWcNZvila4hdne92L/3zw7x6E0m7hG/23jL0A/jvr385Ed+AdaS0vS+AOds3q5 GJFfPcVU48Y58W5CjjQZ5Up5BFj/VOyN91fe83Lj9UFiwyIbhtX84VLQKIR1lhuqRYBurxr4qvkqLank m/W4QnQ8Tp4pc46qpRQ/VDnVDu1R/a2/Q9q990g32t M+nfnJYCL1db6rPvGEsJHYslk9ygJOmf/qvjucqUo2X+tS0cs3z+6VvUE/IS23pJ4oXhX/NFhrG5q84n p0PfoR+wS2IcOH71P/AQ7Wsu79ADN9e3fh/SE6qa7GE7lE81rhUs8Nq2S+/Nw9jb1Zv1DM1QAIf94M6V HD9w/IR+Id5Qj1P9S/por+bqsK+50btgd8Zv6lBbHg /tjW+x8Px/ZYfeoW/QN+u80T08Qb8GceD/oV/QL+l38TUedeuC7ipoM/ZVlsO+faIPwxtlg37tz+gd+g Z9Q/2G2wtGGY/+L2gLmPH2tmpOlBNZ7L6113G+HsrjsW24BwlNcGRanDuePT2+84jAyLX02lZDcv/L4d ScYgzEtrWebXba50kskCT/pricilla+Qz+gP4DA3Ea0L/oF /YZ+Q39e/4QHf/ZbOPBX+gCoaUJ20quBR+yV/R5UgBYKFzew01JwMh+qwZtVOQ2o8RNfv7oasF1i+zS8 6u47rsfp+Oy/8nrvx/DYz/g3XHMrDVy//a2m6QkoYET/4SyRCUm426dK+Or/bKbmCMmR4mrKC56/take away attendant+ 2tu+DIbnwB6sjB75dLe+CjEw4wyv/LV3u47/tXcdHf Nrr/ZZwkPftZYVDvp/tpTO/bQQk5Dtur4fDboa/Hf/8f+qH8K+7cyjeKoySMC81H1j+dlshTZ1RteF+0 k8Nojwz62jDtktR5cSrsmp0ZWo212poQ/feuCPu8dy1T+p2pmfpz/fxeGNn9+r3Orb8pOqy3+4lnpsj5 9fpgisMJya2q01nfbwpJWPpfg51T894RxVbnN8qDPa LR0e+GlLhwN+9lDF8nT+L8yHLJcF3Lctl+iigUnES8T/brq98d5odY268WM5WVXn7Arv0x6fey8/o2/o yr5xaa04ixsIz5V18Z7Rx7Nm8Il+E28UN9Q7VZFrZvek+WqbTK0mS98q3UG1Nk8JlwX+0CpEsa7T0Ft6 y8+iBdMa7Dkvq/Oven37Mogjmyz+Qd+g60O3tatqC3 kcyr7S+WK94HR25xxzCj/HQNhX+CsHuBDw1WoqfRMvr9Ssk440RaxHylBsihvlA4H+otRe3pTHZLXx9O st/OfzWy/c5++YX/dysT8KzcB5wn4fo6D+haGGuaEnw34Hw5oIU/o+Da/8UskNbYJRV0nD+ZxuPb/Sx/ ObZYfeoW/QN+m7dKAxR9eLKpjROWcArWCeEbcQ+pYP P/k7t+z63g8v+VeO+arr+LiutfjsI0M/11lfoKgC0I3/16iQ1bwqLO6h8Mr9Qeuk07tICjiCzw3Jd3sV VzkPa/9gYSiq3Dpwxi0ouC5WLfzkEuFFd3J+0J+nn1q/umXoY/0qxu3U+dOTtsbn1quaj8NuN4fIhbaw HfVo/XtS2Wcing2dnrWw6D/oN/Qb+rH6hegGx/X2aV p/blHW+hKEqAkvm88iDo1oEGwCo+l4y8GfQJ0KbS/2uo6v/WJdeG0qfLDg4j67idQ7owz6rG496gHlA+ 9IpmEbmLu6r611Lbqe+to/mmFfvTLqj/fvKu2fuNl0z3a2rB+2pY/4uuV64SnnYdAj+b65ec95x3aRJ4 l/8Yj30mv3hpbIgoorC/iXPhaoetf7M92zUX/tndJH j6UdpnutaOtcUHULz6r55j0vha2g33J9nUiLI/tVvy4Vgag2lE+QOJXrbVpzq88E8VV8pxs7Eu3ne58n m34Llg4k3/qcj8SJpq56lkM/oT/Bh6FSwkMW0Hh2Ku2Z/JV9gddI+aO0do8dTPicIOiRpwcd4IArlePG tHegvQPtHWjvRHvnV//FkR3w0A35Iy1F4OYbU/Ro7x ppN5J3Abgpy21TN7j/cDzaG/rJ7qKt9FjrQ96oM56h3gZ++uLdN8O+ezHL4gE7ljttn7pt2Fzl81CKs/ EDxw/oJ/QT+cI3gu9Ws/NltPjdeIuw4Xpp5Jh7Rcw39thzn7FtsU5GD+bc1X50mUe6rp46JQU/oZ+op+ WZSixy6Uy8mw/VK+P4g+PDf0Pv+vC/GrzHET2goofR 8L+Sj8cM/yv5/0mgm1imd5/5A8/Tnh/vDP8r+fHO8L+Bc3V70yoJJMR7OKw0iax/q3sPaG/YVznOZV/p APm7FehR35/pqQ99O74psKCx1D10fvjmOC+vZ04I1fdwTT07+ro4Apy9ro6KiL1Y/4yw8MNn79f4atjs 7/0l+9evoihbiIGtwcF97ojxN/5XruPL/2rJ/2qqLe UPvNL/Ks6V/9UCD3sbj8cK/lfRP0v+Y8lvu25pV/yvpvoq/K/k27nC/+ni153f9DT5MFbTocrWbbUE6o Cf/9sK/uv6Ku5zk4YA0fw/q3v/5c+/rPz5l/zbb/n5Gy/8z6qrqKHwrbJd70/yb4+xtNK/sir401zzNW 8ofXvjcyl+0OI37kNeKH+1NR88aB/vUAKz50nvlw7R /cLxG/qN4+F1xsZEj/9KfZj+R2TmqtO2Ev3T65Qbd+cpjl5R5YOI2FV8WXii+EH1g+IH1T+BGmu6oPv+ UGOjVTzdUvyg+qqsc4id+v0mtNpfa6m41I13xmuavk/Tq9q7Cn0ezt/UGJZ/u54L+bdneUA/pK88FwO/ XXPaCv/2iI4Ggo6VVkq2zrK3H/pT+vF9KIc+6hyKp8 ab8XOzeCe/+XaNmp/YlNMLFB4uXK+7FiWYbWBjn33+T2IKopQaAyVKt2nwYTssR68Y+iN8hXwtFjMnJ/ AZFF6iaB+43Kgt1SS45L10Kc6J555X4FyiHxwRdcO3vy3ta+Kdl+RAhhr6SD8NR13svQixKE+Aq6k4Sb eq+UI5If7hTPZagVrfE/Dy4bAii26t5Mc9F4dAm+Hf fssxP+l0F9qfmG9t47zY1Uh2tPVh7e8x0z2+arc3Sd108jTk3rjpJ46d2Q61jV+jZ5VTrP5Tx/YqfvCW od/Fk8BkUL5zvtZPbze8g53d29lw1DB8Zk9+02obaCUZ6CZFvb7NW0Ny+MGF+RTC4CWWgi4k+J04Fg7r vPvc8m+/5Tc+91fjeSt+MOrZih+8ZRzfcHyDvkPfUU /FS+6MH5R+fpsBm5Qj+ID55oV5I22W+kqd5Pwd4Ql5eha2hR7G/OAtQ+/QO/QN+quW7QcpwPIk58UGH/ QD+ezusm15iCu/t+UDzyi3utjsah+1kl976qEpSZ+5M84iV5lqh8x5cX+27KtbHnVMvY+7H3BHub93eu D+Af1E/xQ0V8j8114T+rKft/zbt/FhW6w2jd+8ZegN eoPeoXfoG/QN+u63c81KV8Ajfn0FtgR8i6q9/M17SlkgHcwQlM+sfpx6V5oCpxke8S75u04bkkCubQ/7 2cmw938m47wD5FMPLbef2Iua4py94YY+pcue2Rz2K/oN/YH+qA05YV1V+vr+1nZmcR55TtE91cgD9wcL r/wMW/kZ1G/Sf6IK4N/KvtJ/EprCq7VoV2MtVy/tUf GhW/EOqjDIU2c9xYJ5aFT/uWxD9wOoYggXuaSAt0WXmBZbnnI1wHB+tbV+pWdK/u3qw1i/7q6BizJq3V vtWL/SHt9O/yvdg/UJRC5aG6kN2xvukQ7pMqTk09hyu0jii0+6N/nzR1n+7br/VevtW+nIoulCtJ5ngY +pTxb+X+Du3B2kZ6AyZ/A1t0C2bALfcEazinCaTwQh ucO+zpf4j69WK0VI+EHVH/TQM6aDZrop3FKrY5LxhI7ir61Leeq0uuI7lhn6hkkfY/13sq/UelgDKG66 am+8fzM/Q5br/ilbI0ViEj+893p2/s1U2266bd7sc2v55K75Pxi5dvkC28vD2Qh+tX6l/6QrY7KYxd9/ d0kyKujgwkWrcM5liZOv5mxhj1X5HLszo9SG0Be9J/ oN/Yb+4LrKF/TTn6/bJE9pj95hso9Y+XPOV/PWM4atTQbQX/JE86wK02dlLtjqcxa1D/oJ/YR+Qb+g39 LmRJygredh2TARD5En2sEV5Iog7W16D15/Z9p015CL+a12n98wi3sK981tL7ksfywTNQq2Q6kFN/8/tj +UoT/Kq3J51S7i8K954q0xNv7zKk0d/z1nUh7Fdo60 dU5Sx12dbh9T3W++4ebiIy1v8A/oJ/QL+oX6N+rf0B/oT+qpT0xan4Csn19pb/3BE/aDIbc87y+Kue7I /7haGpzpyrF2uUueD/vPQgtr2V1g/mLkZx4zM+Y84A9tqMfe6ckr6OTBhrjd46S/e7Q/iEFK5yF27N7t ex/KV95gaB/Fl6KsPX/aq/8BS2117/7gLVc/aH/wlq E/0J/Sa3/wlqv+UfvdZxj0+T4G8XqnHrouQ/aVPj6Rn9UtHR+AHu3V/mCWF/F4j9UQZ9wQ4T/oa3//KH 6ET8zllqlGug+0Dwv0pswaQ345+L0zFxnMgbgvDOWKYwd8abG56iJvP6+UNI07dW69yd6r5su+ypkVX3 PplYzuSfMeP8E/yfvXc8GLP4e9K+wr+Xup3yVnzayo jNqthckhruu1XgoXfYYJ/PXIDc6Rld4I2y0cB/RhT+f9aTHIWk/1D2dj9P+Ariana/+V5rn5X+luVr+V5qr [file] [facility]sftYQwjIodWBFYEJaeCgLKTOYCA2E= ID Date Data Source [id number] 08/06/2020 12:33:41 PM EST [facility] Name Value Range Interpretation Code Description Data Chela rce(s) Supporting Document(s) SODIUM 141 mmol/L (136-145) [facility] POTASSIUM 3.9 mmol/L (3.6-5.2) [facility] CHLORIDE 109 mmol/L (100-108) H [facility] CO2 26 mmol/L (22-31) [facility] ANION GAP 6 mmol/L (7-16) L [facility] UREA NITROGEN 15 mg/dL (7-24) [facility] CREATININE 1.12 mg/dL (0.80-1.30) [facility] BUN/CREAT RATIO 13.4 RATIO (10.0-20.0) [facility] GLUCOSE 90 mg/dL (70-99) [facility] CALCIUM 8.8 mg/dL (8.4-10.2) [facility] GFR >60 ml/min/1.73m2 (>59) [facility] GFR ( AMER) >60 ml/min/1.73m2 (>59) [facility] GFR INTERPRETATION [facility] --NORMAL KIDNEY FUNCTION OR MILD DISEASE - GFR >OR= 60CHRONIC KIDNEY DISEASE - GFR 15 - 59RENAL FAILURE - GFR <15 Est. GFR calculation based on the MDRDstudy equation, which assumes a steadystate for creatinine. Est. GFR should notbe used for medication dosing. ID Date Data Source [id number] 08/06/2020 12:18:48 PM EST [facility] Name Value Range Interpretation Code Description Data Chela rce(s) Supporting Document(s) WBC 4.5 10*3/uL (4.1-11.0) [facility] [place] RBC 3.98 10*6/uL (4.60-6.10) L [facility] HGB 12.8 g/dL (13.5-18.0) L [facility] HCT 37.7 % (41.0-53.0) L [facility] MCV 94.7 fL (80.0-95.0) [facility] MCH 32.2 pg (27.0-32.0) H [facility] MCHC 34.1 g/dL (32.0-36.0) [facility] RDW 15.5 % (10.5-14.5) H [facility] Espitia PLT 127 10*3/uL (150-450) L [facility] Espitia MPV 9.7 fL (7.1-10.7) [facility] ID Date Data Source [id number] 08/06/2020 11:35:00 AM EST [facility] Name Value Range Interpretation Code Description Data Chela rce(s) Supporting Document(s) SARS coronavirus 2 RNA [Presence] in Res piratory specimen by DORA with probe detection NOT DETECTED [facility] This lab was reported by [facility]. ID Date Data Source [id number] 08/06/2020 12:56:27 PM EST [facility] lino ISBELL Name Value Range Interpretation Code Description Data Chela rce(s) Supporting Document(s) SPECIMEN DESCRIPTION [facility] [place] INFLUENZA A (NEG) [facility] [place] [facility] [place] Espitia INFLUENZA B (NEG) [facility] [place] [facility] [place] RSV (NEG) [facility] [place] of [facility] COMMENT [facility] [place] [facility] [place] FDA HAS MADE THIS TEST AVAILABL EUNDER AN EMERGENCY USE AUTHORIZATION(EUA) FOR THE DETECTION AND/OR DIAGNOSISOF THE VIRUS THAT CAUSES COVID-19.PERFORMED AT [address] [place] [id number] COVID19 RESULT (NDET) [facility] THIS [facility]AY AMPLIFIES AND DETECTSTHE TARG ET RNA USING REAL-TIME PCR.TESTING PERFORMED ON Must See [place] GENEXPERTNEGATIVE 2019_NCOV RT-PCR RESULTS DONOT PRECLUDE 2019_NCOV INFECTION ANDSHOULD NOT BE USED THE SOLE BASISFOR PATIENT MANAGEMENT DECISIONS. FIRST TEST [facility] [place] [facility] [place] [employer] IN HL[employer]CARE [facility] [place] SYMPTOMATIC [facility] [place] [facility] [place] Espitia DATE OF SYMPT ONSET [facility] [place] HOSPITALIZED [facility] [place] [facility] ICU [facility] [place] [facility] [place] CONGREGATE CARE SET [facility] [place] [facility] [place] [facility] [place] ID Date Data Source [id number] 07/21/2020 06:21:00 AM [facility]) Name Value Range Interpretation Code Description Data Chela rce(s) Supporting Document(s) WHITE BLOOD COUNT 6.1 3/uL Normal WHITE BLOOD COUNT [facility]) RED BLOOD COUNT 4.14 6/uL Below low normal RED BLOOD COUN T [facility]) Hemoglobin [Mass/volume] in Mixed venous blood by Oximetry 12.9 g/dl Below low normal HEMOGLOBIN [facility]) Hematocrit [Pure volume fraction] of Blood by Automated count 40 .5 % Below low normal HEMATOCRIT [facility]) MEAN CORPUSCULAR VOLUME 97.8 fl Above high normal MEAN CORPUSCULAR VOLUME [facility]) MEAN CORPUSCULAR HEMOGLOBIN 31.2 pg Normal MEAN COR PUSCULAR HEMOGLOBIN [facility]) RED CELL DISTRIBUTION WIDTH 15.0 % Above high no rmal RED CELL DISTRIBUTION WIDTH [facility]) MEAN CORPUSCULAR HGB CONC 31.9 g/dl Below low hernandez l MEAN CORPUSCULAR HGB CONC [place] ([facility]) PLATELET COUNT, AUTOMATED 167 3/uL Normal PLATELET C OUNT, AUTOMATED [place] ([facility]) NUCLEATED RED BLOOD CELL % 0.0 % Normal NUCLEATED RED BLOOD CELL % [place] ([facility]) ID Date Data Source [id number] 07/21/2020 06:21:00 AM [facility] ([facility]) Name Value Range Interpretation Code Description Data Chela rce(s) Supporting Document(s) Reported Physicians See Note Reported Physici ans [place] ([facility]) Note: Reported Physicians:Ordering: RUPERTO FULLER [id number], JEWELS EspinosaAttending: CHIQUIS SOSAAdmitting: Sandy TERRELL To: CHIQUIS SOSACopeloise To: Sandy TERRELL To: Nelson Delarosa ID Date Data Source [id number] 07/21/2020 06:21:00 AM [facility] ([facility]) Name Value Range Interpretation Code Description Data Chela rce(s) Supporting Document(s) GLUCOSE, FASTING 117 MG/DL Above high normal GLUCOSE, FAS TING [place] ([facility]) BLOOD UREA NITROGEN 21 MG/DL Above high normal BLOOD URE A NITROGEN [place] ([facility]) CREATININE FOR GFR 1.36 MG/DL Above high normal CREATININE FOR GFR [place] ([facility]) GLOMERULAR FILTRATION RATE 55.2 Normal GLOMERULA R FILTRATION RATE [place] ([facility]) Note: Units are mL/min/1.73 m2 Chroni c Kidney Disease Staging per NKF: Stage I & II GFR >=60 Normal to Mildly Decreased Stage III GFR 30- 59 Moderately Decreased Stage IV GFR 15-29 Severely Decreased Stage V GFR <15 Very Little GFR Left ESRD GFR <15 on SAIL CUTTER SODIUM LEVEL 139 MEQ/L Normal SODIUM LEVEL [facility]) POTASSIUM SERUM 4.3 MEQ/L Normal POTASSIUM SERUM [facility] ([facility]) CHLORIDE LEVEL 105 MEQ/L Normal CHLORIDE LEVEL [facility]) Anion gap in Body fluid 9 MEQ/L Normal ANION GAP [facility] ([facility]) CARBON DIOXIDE LEVEL 25 MEQ/L Normal CARBON DIOXIDE LEVEL [facility]) AST/SGOT 10 U/L Normal AST/SGOT [place] ([facility]) CALCIUM LEVEL 9.1 MG/DL Normal CALCIUM LEVEL [facility]) ALT/SGPT 15 U/L Normal ALT/SGPT [place] ([facility]) Alkaline phosphatase [Enzymatic activity/volume] in Se rum, Plasma or Blood 68 U/L Normal ALKALINE PHOSPHATASE [facility]) BILIRUBIN,TOTAL 0.6 MG/DL Normal [facility],TOTAL [facility] TOTAL PROTEIN 7.4 GM/DL Normal TOTAL PROTEIN [place] ([facility]) Albumin [Mass/volume] in Blood by Bromocresol purple ( BCP) dye binding method 3.9 GM/DL Normal ALBUMIN [place] ([facility]) ALBUMIN/GLOBULIN RATIO 1.1 Normal ALBUMIN/GLOBU MICHELLE RATIO [facility]) ID Date Data Source [id number] 07/21/2020 06:21:00 AM [facility] Name Value Range Interpretation Code Description Data Chela rce(s) Supporting Document(s) Reported Physicians See Note Reported Physici [facility] ([facility]) Note: Reported Physicians:Ordering: RUPERTO FULLER [id number], JEWELS EspinosaAttending: CHIQUIS SOSAAdmitting: Sandy TERRELL To: Magdalena SOSA To: Sandy TERRELL To: Nelson Delarosa ID Date Data Source [id number] 07/21/2020 06:21:00 AM EST [place] ([facility]) Name Value Range Interpretation Code Description Data Chela rce(s) Supporting Document(s) MAGNESIUM LEVEL 2.2 MG/DL Normal MAGNESIUM LEVEL YEFRI [facility]) ID Date Data Source [id number] 07/21/2020 06:21:00 AM EST [place] ([facility]) Name Value Range Interpretation Code Description Data Chela rce(s) Supporting Document(s) Reported Physicians See [facility] Note: Reported Physicians:Ordering: RUPERTO FULLER [phone], JEWELS NJoeAttending: ADIEL TERRELLdmitting: Sandy TERRELL To: Sandy TERRELL To: Nelson Delarosa ID Date Data Source [id number] 07/20/2020 12:21:00 PM EST [place] ([facility]) Name Value Range Interpretation Code Description Data Chela rce(s) Supporting Document(s) Reported Physicians See Note [facility] Note: Reported Physicians:Ordering: Bianca Cruz [id number], Valentina MDAttending: Ac Thapa To: Ac Thapa To: Nelson Delarosa ID Date Data Source [id number] 07/20/2020 12:21:00 PM EST [place] ([facility]) Name Value Range Interpretation Code Description Data Chela rce(s) Supporting Document(s) iSTAT pH 7.434 UNITS Normal iSTAT [facility] ([facility]) iSTAT pCO2 38.5 MMHG Normal iSTAT pCO2 [place] ([facility]) iSTAT pO2 76.0 MMHG Below low normal iSTAT pO2 [place] ([facility]) iSTAT TCO2 27.0 MMOL/L Normal iSTAT TCO2 [place] ([facility]) iSTAT HCO3 25.8 MMOL/L Normal iSTAT HCO3 [place] ([facility]) iSTAT BASE EXCESS 2.0 MMOL/L Normal iSTAT BASE EXCESS [place] ([facility]) iSTAT sO2 96 % Normal iSTAT sO2 [place] ([facility]) ID Date Data Source [id number] 07/20/2020 11:17:00 AM EST [place] ([facility]) Name Value Range Interpretation Code Description Data Chela rce(s) Supporting Document(s) Reported Physicians See Note Reported Physici ans [facility]) Note: Reported Physicians:Ordering: Valentina Cedillo [id number]: Ac Thapa To: Ac Thapa To: Nelson Delarosa ID Date Data Source [id number] 07/20/2020 11:17:00 AM EST [place] ([facility]) Name Value Range Interpretation Code Description Data Chela rce(s) Supporting Document(s) RESPIRATORY PANEL See Note RESPIRATORY PANEL [facility]) Note: This respiratory PCR panel detects Influenza A H1, H3 [id number] H1 viruses, Influenza B virus, Respiratory Syncytial Virus,Human metapneumovirus, Parainfluenza virus 1, 2, 3 and 4, Adenovirus,Rhinovirus/Enterovirus, Coronavirus HKU1, NL63, OC43, 229E [id number] (COVID 19), Bordetella pertussis, Bordetella parapertussis,Mycoplasma pneumoniae and Chlamydia pneumoniae.NEGATIVE by MULTIPLEXED NUCLEIC ACID [id number] (COVID 19) NEGATIVE - SARS-CoV-2 (COVID19) Notes [TIMP] See Note NOTES [place] ([facility]) Note: Source: [id number] ID Date Data Source [id number] 07/20/2020 11:17:00 AM EST [facility] Name Value Range Interpretation Code Description Data Chela rce(s) Supporting Document(s) SARS-CoV-2 (COVID 19) NEGATIVE - SARS-CoV-2 (COVID19) [facility] This lab was ordered by [facility] a nd reported by [facility]. ID Date Data Source [id number] 07/20/2020 10:52:00 AM EST [place] ([facility]) Name Value Range Interpretation Code Description Data Chela rce(s) Supporting Document(s) Reported Physicians See Note Reported Physici ans [place] ([facility]) Note: Reported Physicians:Ordering: Bianca Cruz [id number]: Ac Thapa To: Ac Thapa To: Nelson Delarosa ID Date Data Source [id number] 07/20/2020 10:52:00 AM [facility] ([facility]) Name Value Range Interpretation Code Description Data Chela rce(s) Supporting Document(s) WHITE BLOOD COUNT 5.1 3/uL Normal WHITE BLOOD COUNT [facility]) RED BLOOD COUNT 3.97 6/uL Below low normal RED BLOOD COUN T [facility]) Hemoglobin [Mass/volume] in Mixed venous blood by Oximetry 12.2 g/dl Below low normal HEMOGLOBIN [facility]) MEAN CORPUSCULAR VOLUME 101.5 fl Above high normal MEAN CORPUSCULAR VOLUME [facility]) Hematocrit [Pure volume fraction] of Blood by Automated count 40 .3 % Below low normal HEMATOCRIT [facility]) MEAN CORPUSCULAR HGB CONC 30.3 g/dl Below low hernandez l MEAN CORPUSCULAR HGB CONC [place] ([facility]) MEAN CORPUSCULAR HEMOGLOBIN 30.7 pg Normal MEAN COR PUSCULAR HEMOGLOBIN [facility]) RED CELL DISTRIBUTION WIDTH 14.9 % Above high no rmal RED CELL DISTRIBUTION WIDTH [facility]) PLATELET COUNT, AUTOMATED 175 3/uL Normal PLATELET C OUNT, AUTOMATED [place] ([facility]) NEUTROPHILS % 55.6 % Normal NEUTROPHILS % [place] ([facility]) MONO % 10.9 % Above high normal MONO % [place] ([facility]) LYMPH % 29.7 % Normal LYMPH % [place] ([facility]) BASO % 0.4 % Normal BASO % [place] ([facility]) EOS % 3.2 % Above high normal EOS % [place] ([facility]) NUCLEATED RED BLOOD CELL % 0.0 % Normal NUCLEATED RED BLOOD CELL % [place] ([facility]) IMMATURE GRANULOCYTE % 0.2 % Normal IMMATURE GRAN ULOCYTE % [place] ([facility]) NEUTROPHILS # 2.8 3/uL Normal NEUTROPHILS # [place] ([facility]) LYMPH # 1.5 3/uL Normal LYMPH # [place] ([facility]) MONO # 0.6 3/uL Normal MONO # [place] ([facility]) EOS # 0.2 3/uL Normal EOS # [place] ([facility]) BASO # 0.0 3/uL Normal BASO # [place] ([facility]) ID Date Data Source [id number] 07/20/2020 10:52:00 AM [facility] ([facility]) Name Value Range Interpretation Code Description Data Chela rce(s) Supporting Document(s) Reported Physicians See Note Reported Physici ans [facility]) Note: Reported Physicians:Ordering: iBanca Cruz [id number]: Ac Thapa To: Ac Thapa To: Nelson Delarosa ID Date Data Source [id number] 07/20/2020 10:52:00 AM [facility] ([facility]) Name Value Range Interpretation Code Description Data Chela rce(s) Supporting Document(s) GLUCOSE, FASTING 81 MG/DL Normal [facility], [facility]STING [facility] BLOOD UREA NITROGEN 14 MG/DL Normal BLOOD UREA NITRO GEN [place] ([facility]) CREATININE FOR GFR 1.06 MG/DL Normal CREATININE FOR GF R [place] ([facility]) GLOMERULAR FILTRATION RATE > 60.0 Normal GLOMERULA R FILTRATION RATE [place] ([facility]) Note: Units are mL/min/1.73 m2 Chroni c Kidney Disease Staging per NKF: Stage I & II GFR >=60 Normal to Mildly Decreased Stage III GFR 30- 59 Moderately Decreased Stage IV GFR 15-29 Severely Decreased Stage V GFR <15 Very Little GFR Left ESRD GFR <15 on SAIL CUTTER SODIUM LEVEL 138 MEQ/L Normal SODIUM LEVEL [place] ( [facility]) POTASSIUM SERUM 4.3 MEQ/L Normal POTASSIUM SERUM [place] ([facility]) CHLORIDE LEVEL 106 MEQ/L Normal CHLORIDE LEVEL [facility] ([facility]) CARBON DIOXIDE LEVEL 29 MEQ/L Normal CARBON DIOXIDE LEVEL [facility]) CALCIUM LEVEL 9.5 MG/DL Normal CALCIUM LEVEL [facility]) Anion gap in Body fluid 3 MEQ/L Below low normal ANION GAP [facility]) ID Date Data Source [id number] 07/20/2020 10:52:00 AM [employer] ([facility]) Name Value Range Interpretation Code Description Data Chela rce(s) Supporting Document(s) Reported Physicians See Note Reported Physic ans [place] ([facility]) Note: Reported Physicians:Ordering: Bianca Cruz [id number] MDAttending: Ac Thapa To: Ac Thapa To: Nelson Delarosa ID Date Data Source [id number] 07/20/2020 10:52:00 AM EST [employer] ([facility]) Name Value Range Interpretation Code Description Data Chela rce(s) Supporting Document(s) THYROID STIMULATING HORMONE 0.429 uIU/ML Normal THYROI D STIMULATING HORMONE [facility]) ID Date Data Source [id number] 07/20/2020 10:52:00 AM EST [place] ([facility]) Name Value Range Interpretation Code Description Data Chela rce(s) Supporting Document(s) Reported Physicians See Note Reported [facility] ([facility]) Note: Reported Physicians:Ordering: Bianca Shieloise [phone], a MDAttending: Maj ElieraCopy To: Ac Thapa To: Nelson Delarosa ID Date Data Source [id number] 07/20/2020 10:52:00 AM EST [place] ([facility]) Name Value Range Interpretation Code Description Data Chela rce(s) Supporting Document(s) NT-PRO BNP 1217 PG/ML Above high normal NT-PRO BNP [facility] ([facility]) ID Date Data Source [id number] 07/20/2020 10:52:00 AM EST [place] ([facility]) Name Value Range Interpretation Code Description Data Chela rce(s) Supporting Document(s) Reported Physicians See Note Reported Physici ans [place] ([facility]) Note: Reported Physicians:Ordering: Bianca Edwardsmarco [phone], Maja MDAttending: Seth Thapapy To: Ac Thapa To: Nelson Delarosa ID Date Data Source [id number] 07/20/2020 10:52:00 AM EST [place] ([facility]) Name Value Range Interpretation Code Description Data Chela rce(s) Supporting Document(s) THYROXINE (T4) 8.4 UG/DL Normal THYROXINE (T4) [facility] ([facility]) ID Date Data Source [id number] 07/20/2020 10:52:00 AM EST [place] ([facility]) Name Value Range Interpretation Code Description Data Chela rce(s) Supporting Document(s) Reported Physicians See Note Reported Physici ans [place] ([facility]) Note: Reported Physicians:Ordering: Bianca Edwardsmarco [phone], Maja MDAttending: Maj ElieraCopy To: Maj ElieraCoeliane To: Nelson Delarosa ID Date Data Source [id number] 07/20/2020 10:52:00 AM EST [place] ([facility]) Name Value Range Interpretation Code Description Data Chela rce(s) Supporting Document(s) AST/SGOT 13 U/L Normal AST/SGOT [place] ([facility]) ALT/SGPT 12 U/L Normal ALT/SGPT [place] ([facility]) Alkaline phosphatase [Enzymatic activity/volume] in Se rum, Plasma or Blood 66 U/L Normal ALKALINE PHOSPHATASE [place] ([facility]) BILIRUBIN,TOTAL 0.5 MG/DL Normal BILIRUBIN,TOTAL [place] ([facility]) BILIRUBIN,DIRECT 0.1 MG/DL Normal [facility]UBIN,DIRECT [facility] TOTAL PROTEIN 7.7 GM/DL Normal TOTAL PROTEIN [place] ([facility]) Albumin [Mass/volume] in Blood by Bromocresol purple ( BCP) dye binding method 3.6 GM/DL Normal ALBUMIN [place] ([facility]) ALBUMIN/GLOBULIN RATIO 0.9 Normal ALBUMIN/GLOBU MICHELLE RATIO [place] ([facility]) ID Date Data Source [id number] 07/20/2020 10:52:00 AM EST [place] ([facility]) Name Value Range Interpretation Code Description Data Chela rce(s) Supporting Document(s) Reported Physicians See Note Reported Physici ans [place] ([facility]) Note: Reported Physicians:Ordering: Bianca Cruz [phone]: Ac Thapa To: Ac Thapa To: Nelson Delarosa ID Date Data Source [id number] 07/20/2020 10:52:00 AM EST [employer] ([facility]) Name Value Range Interpretation Code Description Data Chela rce(s) Supporting Document(s) LACTIC ACID SEPSIS PROTOCOL 1.7 MMOL/L Normal LACTIC A CATIE SEPSIS PROTOCOL [place] ([facility]) Notes [TIMP] See Note NOTES [place] ([facility]) Note: Y/N query for Sepsis Lactate Rule: Y ID Date Data Source [id number] 07/20/2020 10:52:00 AM EST [employer] ([facility]) Name Value Range Interpretation Code Description Data Chela rce(s) Supporting Document(s) Reported Physicians See Note Reported Physici ans [place] ([facility]) Note: Reported Physicians:Ordering: Bianca Cruz [phone] MDAttending: Ac Thapa To: Ac Thapa To: Nelson Delarosa ID Date Data Source [id number] 07/20/2020 10:52:00 AM EST [place] ([facility]) Name Value Range Interpretation Code Description Data Chela rce(s) Supporting Document(s) CPK CREATINE PHOSPHOKINASE 45 U/L Normal CPK CREAT INE PHOSPHOKINASE [place] ([facility]) CK-MB VALUE MASS 1.0 NG/ML Normal CK-MB VALUE MASS [facility] MB/CK RELATIVE INDEX 2.22 Normal MB/CK RELATIVE INDEX [place] ([facility]) Note: DIAGNOSIS CRITERIA MMB ng/ml Relative Index (RI) NON-AMI < or = 5 N/A BROWNLEE ZONE > 5 < or = 4 AMI > 5 > 4 TROPONIN I < 0.02 NG/ML Normal TROPONIN I [place] ([facility]) Note: Troponin I Reference Interval for Siemens [place] LOCI: 99th Percentile= 0.00-0.045 ng/ml Risk Stratification: <= 0.10 ng/ml Decreased Risk for Adverse Clinical Events. 0.10-1.50 ng/ml Increased Risk for Adverse Clinical Events. Evaluation of additional criterion and/or repeat testing in 2-6 hours is suggested to rule out myocardial damage. >= 1.50 ng/ml Indicative of Myocardial Injury. ID Date Data Source [id number] 07/14/2020 02:19:00 PM [facility] ([facility]) Name Value Range Interpretation Code Description Data Chela rce(s) Supporting Document(s) Reported Physicians See Note Reported Physici ans [place] ([facility]) Note: Reported Physicians:Ordering: Nelson Sommers AAttending: NELSON DELAROSAConsulting: NO, PCPCopy To: Nelson Delarosa ID Date Data Source [id number] 07/14/2020 02:19:00 PM EST [place] ([facility]) Name Value Range Interpretation Code Description Data Chela rce(s) Supporting Document(s) Iron [Mass/volume] in Urine collected for unspecified duration 46 U G/DL IRON [place] ([facility]) Note: Responsible Observer: () ID Date Data Source [id number] 07/14/2020 02:19:00 PM EST [place] ([facility]) Name Value Range Interpretation Code Description Data Chela rce(s) Supporting Document(s) Reported Physicians See Note Reported Physici ans [place] ([facility]) Note: Reported Physicians:Ordering: Chavez e, Nelson AAttending: MALINA, JOCELYNConsulting: NO, PCPCopy To: Malina, Nelson ID Date Data Source [id number] 07/14/2020 02:19:00 PM EST [place] ([facility]) Name Value Range Interpretation Code Description Data Chela rce(s) Supporting Document(s) Ferritin [Interpretation] in Blood 106.0 ng/mL FERRITIN [facility]) Note: Responsible Observer: () ID Date Data Source [id number] 07/14/2020 02:19:00 PM EST [place] ([facility]) Name Value Range Interpretation Code Description Data Chela rce(s) Supporting Document(s) Reported Physicians See Note Reported Physic ans [place] ([facility]) Note: Reported Physicians:Ordering: Chavez e, Nelson AAttending: MALINA, JOCELYNConsulting: NO, PCPCopy To: Malina Nelson ID Date Data Source [id number] 07/14/2020 02:19:00 PM EST [place] ([facility]) Name Value Range Interpretation Code Description Data Chela rce(s) Supporting Document(s) FOLIC ACID 15.4 NG/ML FOLIC ACID [place] ([facility]) Note: Responsible Observer: () ID Date Data Source [id number] 07/14/2020 02:19:00 PM EST [place] ([facility]) Name Value Range Interpretation Code Description Data Chela rce(s) Supporting Document(s) Reported Physicians See Note Reported Physici ans [place] ([facility]) Note: Reported Physicians:Ordering: Chavez e, Nelson AAttending: MALINA, JOCELYNConsulting: NO, PCPCopy To: Stefania Delarosacelyn ID Date Data Source [id number] 07/14/2020 02:19:00 PM [facility] ([facility]) Name Value Range Interpretation Code Description Data Chela rce(s) Supporting Document(s) RETIC COUNT 2.2 % Above high normal RETIC COUNT [facility] ([facility]) Note: Responsible Observer: () ID Date Data Source [id number] 07/14/2020 02:19:00 PM [facility] ([facility]) Name Value Range Interpretation Code Description Data Chela rce(s) Supporting Document(s) Reported Physicians See Note Reported Physici ans [place] ([facility]) Note: Reported Physicians:Ordering: Nelson Sommers AAttending: MALINA JOCELYNConsulting: NO, PCPCopy To: Nelson Delarosa ID Date Data Source [id number] 07/14/2020 02:19:00 PM [facility] ([facility]) Name Value Range Interpretation Code Description Data Chela rce(s) Supporting Document(s) VITAMIN B12 408 PG/ML VITAMIN B12 [place] ([facility]) Note: Responsible Observer: () ID Date Data Source [id number] 07/14/2020 03:18:00 PM [facility] Value Range Interpretation Code Description Data Chela rce(s) Supporting Document(s) Cobalamin (Vitamin B12) [Mass/volume] in Serum or Plasma 408 PG/ML 232 - 1245 [facility] ID Date Data Source [id number] 07/14/2020 03:18:00 PM [facility] Value Range Interpretation Code Description Data Chela rce(s) Supporting Document(s) Folate [Mass/volume] in Serum or Plasma 15.4 NG/ML 5.6 - 45.8 [facility] ID Date Data Source [id number] 07/14/2020 03:18:00 PM [facility] Value Range Interpretation Code Description Data Chela rce(s) Supporting Document(s) Ferritin [Mass/volume] in Serum or Plasma 106.0 ng/mL 5.0 - 244 [facility] ID Date Data Source [id number] 07/14/2020 02:59:00 PM [facility] Name Value Range Interpretation Code Description Data Chela rce(s) Supporting Document(s) Reticulocytes/100 erythrocytes in Blood by Automated count 2.2 % 0.5 - 1.5 H [facility] ID Date Data Source [id number] 07/14/2020 02:58:00 PM [facility] Name Value Range Interpretation Code Description Data Chela rce(s) Supporting Document(s) Iron [Mass/volume] in Serum or Plasma 46 UG/DL 42 - 135 [facility] ID Date Data Source [id number] 06/04/2020 02:00:00 PM [facility] ([facility]) Name Value Range Interpretation Code Description Data Chela rce(s) Supporting Document(s) Reported Physicians See Note Reported Physici [facility] ([facility]) Note: Reported Physicians:Ordering: Nelson Sommers AAttending: NELSON DELAROSAReferring: NELSON DELAROSAConsulting: NO, PCPCopy To: Nelson Delarosa ID Date Data Source [id number] 06/04/2020 02:00:00 PM [facility] ([facility]) Name Value Range Interpretation Code Description Data Chela rce(s) Supporting Document(s) CULTURE WOUND See Note CULTURE WOUND [place] ([facility]) Note: _CULTURE WOUND_ [id number]$$[id number]$$[id number] DATE/TIME: 06/10/2020 08:08Culture: CULTURE WOUND Status: FinalIsolate 1 Enterococcus faecalis Flag: A . . . . . . .7Heavy growthCiprofloxacin SLevofloxacin STetracycline R Previous result entered on 06/09/2020 07:29 ET Enterococcus faecalis Previous result entered on 06/08/2020 09:58 ET Enterococcus faecalis Previous result entered on 06/07/2020 03:18 ET Microbiological testing to rule out the presence of possible pathogensis in progress.Aerobic Bacterial Culture: [id number] faecalis Flag: AIsolate 2 Staphylococcus aureus Flag: A . . . . . . .3Heavy growth -- Continued on next page --Patient: LOUISE James Order: [id number] Page 2Culture: CULTURE WOUND Status: Final ====Most [...] rodsAcinetobacter pittii Flag: APatient: LOUISE James Order: [id number] Page 3Culture: CULTURE WOUND Status: Fin al =ISOLATE 1 Enterococcus faecalisISOLATE 2 Staphylococcus aureusISOLATE 3 Acinetobacter pittii Isolate 1 Isolate 2 Isolate 3Antibiotic RAJENDRA Int RAJENDRA Int RAJENDRA IntUnits ug/mL ug/mL ug/mL---- Ampic illin/Sulbactam Cefepime Cefotaxime Ceftazidime Ceftriaxone Ciprofloxacin Clindamycin Erythromycin Gentamicin Levofloxacin Linezolid Meropenem Moxifloxacin Oxacillin Penicillin S S Quinupristin/Dalfopristin Rifampin Tetracycline Tobramycin Trimethoprim/Sulfa Vancomycin S S P1 Test performed by: [facility] #: [id number] [address] [place] [address] [id number] [facility] [id number] Director : Jarod Ratliff MD NPI #:Hide Worker : 06/08/[email or web address].SENT REF 06/08/20.1018.XMT.SENT REF 06/09/20.0956.XMT.SENT REF 06/10/20.0944.XMT.SENT REF ID Date Data Source [id number] 06/10/2020 09:44:00 AM EST [facility] Name Value Range Interpretation Code Description Data Chela rce(s) Supporting Document(s) CULTURE WOUND [facility] _CULTURE WOUND_$$[id number]$$[id number]$$[id number]$$[id number]$$[id number]$$[id number] DATE/TIME: 06/10/2020 08:08Culture: CULTURE WOUND Status: FinalIsolate 1 Enterococcus faecalis Flag: A . . . . . . .7Heavy growthCiprofloxacin SLevofloxacin STetracycline R Previous result entered on 06/09/2020 07:29 ET Enterococcus faecalis Previous result entered on 06/08/2020 09:58 ET Enterococcus faecalis Previous result entered on 06/07/2020 03:18 ET Microbiological testing to rule out the presence of possible pathogensis in progress.Aerobic Bacterial Culture: [id number] faecalis Flag: AIsolate 2 Staphylococcus aureus Flag: A . . . . . . .3Heavy growth -- Continued on next page --Patient: LOUISE James Order: [id number] Page 2Culture: CULTURE WOUND Status: Final Most [...] Gram negative rodsAcinetobacter pittii Flag: APatient: LOUISE MEJIA Erika Order: [id number] Page 3Culture: CULTURE WOUND Status: Final ISOLATE 1 Enterococcus faecalisISOLATE 2 Staphylococcus aureusISOLATE 3 Acinetobacter pittii Isolate 1 Isolate 2 Isolate 3Antibiotic RAJENDRA Int RAJENDRA Int RAJENDRA IntUnits ug/mL ug/mL ug/mL Ampicillin/Sulbactam Cefepime Cefotaxime Ceftazidime Ceftriaxone Ciprofloxacin Clindamycin Erythromycin Gentamicin Levofloxacin Linezolid Meropenem Moxifloxacin Oxacillin Penicillin S S Quinupristin/Dalfopristin Rifampin Tetracycline Tobramycin Trimethoprim/Sulfa Vancomycin S S P1 Test performed by: [facility] #: [id number] [address] [place] [address] [id number] [facility] [id number] Director : Jarod Ratliff MD NPI #:Hide Worker : 06/08/[email or web address].XMT.SENT REF 06/08/20.1018.XMT.SENT REF 06/09/20.0956.XMT.SENT REF 06/10/20.0944.XMT.SENT REF ID Date Data Source [id number] 05/14/2020 10:06:00 AM EST [place] ([facility]) Name Value Range Interpretation Code Description Data Chela rce(s) Supporting Document(s) Reported Physicians See Note Reported Physic ans [place] ([facility]) Note: Reported Physicians:Ordering: Chavez e, Nelson AAttending: MALINA JOCELYNConsulting: NO, PCPCopy To: Malina Nelson ID Date Data Source [id number] 05/14/2020 10:06:00 AM EST [place] ([facility]) Name Value Range Interpretation Code Description Data Chela rce(s) Supporting Document(s) T4 FREE 1.21 NG/DL T4 FREE [place] ([facility]) Note: Responsible Observer: () ID Date Data Source [id number] 05/14/2020 10:06:00 AM EST [place] ([facility]) Name Value Range Interpretation Code Description Data Chela rce(s) Supporting Document(s) Reported Physicians See Note Reported Physic ans [place] ([facility]) Note: Reported Physicians:Ordering: Chavez e, Nelson AAttending: MALINA JOCELYNConsulting: NO, PCPCopy To: Malina Nelson ID Date Data Source [id number] 05/14/2020 10:06:00 AM [facility] ([facility]) Name Value Range Interpretation Code Description Data Chela rce(s) Supporting Document(s) CBC NO DIFF See Note CBC NO DIFF [place] ([facility]) Note: COMPLETE BLOOD COUNTResponsibl e Observer: (SJR) Hematocrit [Pure volume fraction] of Blood by Automated count 40 .5 % Below low normal HEMATOCRIT [place] ([facility]) Note: Responsible Observer: (SJR) Hemoglobin [Mass/volume] in Mixed venous blood by Oximetry 12.6 g/dL Below low normal HEMOGLOBIN [place] ([facility]) Note: Responsible Observer: (SJR) MCHC 31.1 g/dL MCHC [place] ([facility]) Note: Responsible Observer: (SJR) MCH 31.0 pg MCH [place] ([facility]) Note: Responsible Observer: (SJR) MCV 99.8 fL Above high normal MCV [place] ([facility]) Note: Responsible Observer: (SJR) MPV 10.3 fL MPV [place] ([facility]) Note: Responsible Observer: (SJR) Platelets [#/area] in Blood by Microscopy high power field 230 10\\^ 3/uL PLATELETS [place] ([facility]) Note: Responsible Observer: (SJR) RBC 4.06 10\\^6/uL Below low normal RBC [place] ([facility]) Note: Responsible Observer: (SJR) WBC 5.7 10\\^3/uL WBC [place] ([facility]) Note: Responsible Observer: (SJR) RDW 14.3 % RDW [place] ([facility]) Note: Responsible Observer: (SJR) ID Date Data Source [id number] 05/14/2020 10:06:00 AM EST [place] ([facility]) Name Value Range Interpretation Code Description Data Chela rce(s) Supporting Document(s) Reported Physicians See Note Reported Physici ans [place] ([facility]) Note: Reported Physicians:Ordering: Nelson Sommers AAttending: NELSON DELAROSAConsulting: NO, PCPCopy To: Nelson Delarosa ID Date Data Source [id number] 05/14/2020 10:06:00 AM EST [place] ([facility]) Name Value Range Interpretation Code Description Data Chela rce(s) Supporting Document(s) Cholesterol [Moles/volume] in Pericardial fluid 140 MG/DL CHOLESTEROL [place] ([facility]) Note: Responsible Observer: (CLD) CVE PANEL See Note CVE PANEL [place] ([facility]) Note: LIPID PANELResponsible Observe r: (CLD) LDL/HDL 1.75 LDL/HDL [place] ([facility]) Note: CVE RISK CHOL/HD L LDL/HDLMEN: 1/2 AVERAGE 3.43 1.00 AVERAGE 4.97 3.55 2X AVERAGE 9.55 6.25 3X AVERAGE 23.99 7.99WOMEN: 1/2 AVERAGE 3.27 1.47 AVERAGE 4.44 3.22 2X AVERAGE 7.05 5.03 3X AVERAGE 11.04 6.14Responsible Observer: (CLD) HDL 48 MG/DL HDL [place] ([facility]) Note: Responsible Observer: (CLD) Cholesterol in LDL [Mass/volume] in Serum or Plasma by Direct as say 84 mg/dL LDL [place] ([facility]) Note: Responsible Observer: (CLD) TRIGLYCERIDES 88 MG/DL TRIGLYCERIDES [place] ([facility]) Note: Responsible Observer: (CLD) RISK FACTOR 2.9 Below low normal RISK FACTOR [facility] ([facility]) Note: Responsible Observer: (CLD) ID Date Data Source [id number] 05/14/2020 10:06:00 AM EST [place] ([facility]) Name Value Range Interpretation Code Description Data Chela rce(s) Supporting Document(s) Reported Physicians See Note Reported Physici ans [place] ([facility]) Note: Reported Physicians:Ordering: Nelson Sommers AAttending: KELLY DELAROSAYNConsulting: NO, PCPCopy To: Nelson Delarosa ID Date Data Source [id number] 05/14/2020 10:06:00 AM EST [place] ([facility]) Name Value Range Interpretation Code Description Data Chela rce(s) Supporting Document(s) TSH 2.43 uIU/mL TSH [place] ([facility]) Note: Responsible Observer: () ID Date Data Source [id number] 05/14/2020 10:06:00 AM EST [place] ([facility]) Name Value Range Interpretation Code Description Data Chela rce(s) Supporting Document(s) Reported Physicians See Note Reported Physic ans [place] ([facility]) Note: Reported Physicians:Ordering: Chavez e Nelson AAttending: MALINA, JOCELYNConsulting: NO, PCPCopy To: Nelson Delarosa ID Date Data Source [id number] 05/14/2020 10:06:00 AM EST [place] ([facility]) Name Value Range Interpretation Code Description Data Chela rce(s) Supporting Document(s) A/G RATIO 1.2 A/G RATIO [place] ([facility]) Note: Responsible Observer: (CLD) AFR AMER GFR >60 mL/min AFR AMER GFR [place] ([facility]) Note: Male GFR Interprentation 20- [...] BCP) dye binding method 4.2 G/DL ALBUMIN [place] ([facility]) Note: Responsible Observer: (CLD) Egg donor age 70 yrs AGE [place] ([facility]) Note: Responsible Observer: (CLD) ALKALINE PHOS 80 U/L ALKALINE PHOS [place] ([facility]) Note: Responsible Observer: (CLD) Anion gap in Body fluid 10.0 mmol/L ANION GAP [place] ([facility]) Note: Responsible Observer: (CLD) BUN 17 MG/DL BUN [place] ([facility]) Note: Responsible Observer: (CLD) Calcium [Moles/volume] in Urine collected for unspecified durati on 9.4 MG/DL CALCIUM [place] ([facility]) Note: Responsible Observer: (CLD) BUN/CREAT 15 BUN/CREAT [place] ([facility]) Note: Responsible Observer: (CLD) Chloride [Moles/volume] in Serum, Plasma or Blood 104 mEq/L CHLORIDE [place] ([facility]) Note: Responsible Observer: (CLD) CO2 28 MEQ/L CO2 [place] ([facility]) Note: Responsible Observer: (CLD) COMPREHENSIVE METABOLIC PANEL See Note COMPRE HENSIVE METABOLIC PANEL [place] ([facility]) Note: COMPREHENSIVE METABOLIC PANELR esponsible Observer: (CLD) Creatinine [Moles/volume] in Vitreous fluid 1.1 MG/DL CREATININE [place] ([facility]) Note: Responsible Observer: (CLD) Glucose [Mass/volume] in Urine collected for unspecified duration 1 03 MG/DL GLUCOSE [place] ([facility]) Note: Responsible Observer: (CLD) Globulin [Mass/time] in 24 hour Urine 3.4 GM/DL Above hig h normal GLOBULIN [place] ([facility]) Note: Responsible Observer: (CLD) Potassium [Mass/volume] in Blood 4.4 mEq/L POT ASSIUM [place] ([facility]) Note: Responsible Observer: (CLD) NON-AA GFR >60 mL/min NON-AA GFR [place] ([facility]) Note: Responsible Observer: (CLD) SGOT/AST 12 U/L SGOT/AST [place] ([facility]) Note: Responsible Observer: (CLD) SGPT/ALT <5 U/L Below low normal SGPT/ALT [place] ([facility]) Note: Responsible Observer: (CLD) Sodium [Moles/volume] in Serum, Plasma or Blood 142 mEq/L SODIUM [place] ([facility]) Note: Responsible Observer: (CLD) TOTAL PROTEIN 7.6 G/DL TOTAL PROTEIN [place] ([facility]) Note: Responsible Observer: (CLD) TOTAL BILI <0.7 MG/DL TOTAL BILI [place] ([facility]) Note: Responsible Observer: (CLD) ID Date Data Source [id number] 05/14/2020 10:06:00 AM EST [place] ([facility]) Name Value Range Interpretation Code Description Data Chela rce(s) Supporting Document(s) Reported Physicians See Note Reported Physici ans [place] ([facility]) Note: Reported Physicians:Ordering: Nelson Sommers AAttending: NELSON DELAROSAConsulting: NO, PCPCopy To: Nelson Delarosa ID Date Data Source [id number] 05/14/2020 10:06:00 AM EST [place] ([facility]) Name Value Range Interpretation Code Description Data Chela rce(s) Supporting Document(s) Triiodothyronine (T3),Free 2.5 pg/mL Triiodoth yronine (T3),Free [place] ([facility]) Note: Responsible Observer: (rfl) ID Date Data Source [id number] 05/14/2020 10:06:00 AM [facility] Name Value Range Interpretation Code Description Data Chela rce(s) Supporting Document(s) Reported Physicians See Note Reported Physici ans [place] ([facility]) Note: Reported Physicians:Ordering: Nelson Sommers AAttending: NELSON DELAROSAConsulting: NO, PCPCopy To: Nelson Delarosa ID Date Data Source [id number] 05/14/2020 10:06:00 AM [facility] ([facility] Name Value Range Interpretation Code Description Data Chela rce(s) Supporting Document(s) Levetiracetam, S <1.0 ug/mL Below low normal Levetiracetam , S [place] ([facility]) Note: Verified by repeat analysisThi s test was developed and its performance characteristicsdetermined by [facility]. It has not been cleared or approvedby the Food and Drug Administration.Responsible Observer: (rfl) ID Date Data Source [id number] 05/20/2020 07:59:00 AM [facility] Name Value Range Interpretation Code Description Data Chela rce(s) Supporting Document(s) Levetiracetam [Mass/volume] in Serum or Plasma <1.0 ug/mL 10.0-40.0 L [facility] Verified by repeat analysisThis test was developed and its performance characteristicsdetermined by [facility]. It has not been cleared or approvedby the Food and Drug Administration. ID Date Data Source [id number] 05/15/2020 10:06:00 AM [facility] Name Value Range Interpretation Code Description Data Chela rce(s) Supporting Document(s) Triiodothyronine (T3) Free [Mass/volume] in Serum or Plasma 2.5 pg/ mL 2.0-4.4 [facility] ID Date Data Source [id number] 05/14/2020 11:23:00 AM [facility] Name Value Range Interpretation Code Description Data Chela rce(s) Supporting Document(s) Thyrotropin [Units/volume] in Serum or Plasma by Detec tion limit <= 0.05 mIU/L 2.43 uIU/mL 0.47 - 5.01 [facility] ID Date Data Source [id number] 05/14/2020 11:23:00 AM [facility] Name Value Range Interpretation Code Description Data Chela rce(s) Supporting Document(s) Thyroxine (T4) free index in Serum or Plasma by calculation 1.21 NG/DL 0.93 - 1.70 [facility] ID Date Data Source [id number] 05/14/2020 11:11:00 AM [facility] Value Range Interpretation Code Description Data Chela rce(s) Supporting Document(s) [facility] Cholesterol [Mass/volume] in Serum or Plasma 140 MG/DL 131 - 200 [facility] Deprecated Triglyceride [Mass/volume] in Serum or Plasma 88 MG/DL 3 5 - 160 [facility] HDL 48 MG/DL 29 - 86 [facility] Cholesterol in LDL [Mass/volume] in Serum or Plasma by Direc t assay 84 mg/dL 65 - 175 [facility] Cholesterol.total/Cholesterol in HDL [Mass Ratio] in Serum o r Plasma 2.9 3.4 - 4.9 L [facility] LDL/HDL 1.75 1.00 - 3.55 [facility] CVE RISK CHOL/HDL LDL/HDLMEN: 1/2 AVERAGE 3.43 1.00 AVERAGE 4.97 3.55 2X AVERAGE 9.55 6.25 3X AVERAGE 23.99 7.99WOMEN: 1/2 AVERAGE 3.27 1.47 AVERAGE 4.44 3.22 2X AVERAGE 7.05 5.03 3X AVERAGE 11.04 6.14 ID Date Data Source [id number] 05/14/2020 11:11:00 AM [facility] Name Value Range Interpretation Code Description Data Chela rce(s) Supporting Document(s) COMPREHENSIVE METABOLIC PANEL [facility] COMPREHENSIVE METABOLIC PANEL Sodium [Moles/volume] in Serum or Plasma 142 mEq/L 134 - 153 [facility] Potassium [Moles/volume] in Serum or Plasma 4.4 mEq/L 3.6 - 5.0 [facility] Chloride [Moles/volume] in Serum or Plasma 104 mEq/L 98 - 107 [facility] Carbon dioxide, total [Moles/volume] in Serum or Plasma 28 MEQ/L 22 - 30 [facility] Glucose [Mass/volume] in Serum or Plasma 103 MG/DL 65 - 110 [facility] BUN 17 MG/DL 7 - 21 [facility] al Creatinine [Mass/volume] in Serum or Plasma 1.1 MG/DL 0.7 - 1.5 [facility] BUN/CREAT 15 8 - 27 [facility] Protein [Mass/volume] in Serum or Plasma 7.6 G/DL 6.3 - 8.2 [facility] Albumin [Mass/volume] in Serum or Plasma 4.2 G/DL 3.9 - 5.0 [facility] Globulin [Mass/volume] in Serum by calculation 3.4 GM/DL 2.4 - 3.2 H [facility] A/G RATIO 1.2 0.8 - 2.0 [facility] Calcium [Mass/volume] in Serum or Plasma 9.4 MG/DL 8.4 - 10.2 [facility] Bilirubin.total [Mass/volume] in Serum or Plasma <0.7 MG/DL 0.2 - 1.3 [facility] Alkaline phosphatase [Enzymatic activity/volume] in Serum or Plasma 80 U/L 38 - 126 [facility] Aspartate aminotransferase [Enzymatic activity/volume] in Serum or Plasma 12 U/L 5 - 40 [facility] Alanine aminotransferase [Enzymatic activity/volume] in Seru m or Plasma <5 U/L 7 - 56 L [facility] Anion gap 3 in Serum or Plasma 10.0 mmol/L 8.0 - 16.0 [facility] AGE 70 yrs [facility] NON-AA GFR >60 mL/min [facility] AFR AMER GFR >60 mL/min [facility] Male GFR In terprentation [...] >32 mL/min Normal ID Date Data Source [id number] 05/14/2020 10:23:00 AM EST [facility] Name Value Range Interpretation Code Description Data Chela rce(s) Supporting Document(s) CBC NO DIFF [facility] COMPLETE BLOOD COUNT Leukocytes [#/volume] in Blood by Automated count 5.7 10^3/uL 4.2 - 1 1.0 [facility] Erythrocytes [#/volume] in Blood by Automated count 4.06 10^6/uL 4. 50 - 6.30 L [facility] Hemoglobin [Mass/volume] in Blood 12.6 g/dL 14.0 - 16.0 L [facility] Hematocrit [Volume Fraction] of Blood by Automated count 40.5 % 4 1.0 - 51.0 L [facility] Erythrocyte mean corpuscular volume [Entitic volume] by Auto mated count 99.8 fL 80.0 - 94.0 H [facility] Erythrocyte mean corpuscular hemoglobin [Entitic mass] by Automated count 31.0 pg 27.0 - 34.0 [facility] Erythrocyte mean corpuscular hemoglobin concentration [Mass/volume] by Automated count 31.1 g/dL 31.0 - 36.0 [facility] Erythrocyte distribution width [Ratio] by Automated count 14.3 % 11.5 - 14.8 [facility] Platelets [#/volume] in Blood by Automated count 230 10^3/uL 150 - 45 0 [facility] Platelet mean volume [Entitic volume] in Blood by Automated count 10.3 fL 7.4 - 10.4 [facility] ID Date Data Source [id number] 05/06/2020 01:02:00 PM EST [employer] ([facility]) Name Value Range Interpretation Code Description Data Chela rce(s) Supporting Document(s) Reported Physicians See Note Reported Physici ans [place] ([facility]) Note: Reported Physicians:Ordering: Nelson Sommers AAttending: NELSON DELAROSAReferring: NELSON DELAROSAConsulting: UMU, PCPCopy To: Nelson Delarosa ID Date Data Source [id number] 05/06/2020 01:02:00 PM EST [place] ([facility]) Name Value Range Interpretation Code Description Data Chela rce(s) Supporting Document(s) CULTURE WOUND See Note CULTURE WOUND [place] ([facility]) Note: _CULTURE WOUND_ [id number] DATE/TIME: 05/12/2020 11:06Culture: CULTURE WOUND Status: FinalIsolate [...] 05/10/2020 10:00 ET Staphylococcus aureusAerobic Bacterial Culture: [id number] aureus Flag: AIsolate 2 Acinetobacter lwoffii Flag: A . . . . . . .8Moderate growth Previous result entered on 05/11/2020 13:35 ET -- Continued on next page --Patient: LOUISE James Order: [id number] Page 2Culture: CULTURE WOUND Status: Final ====Gram negative rods Previous result entered on 05/10/2020 10:00 ET Gram negative rodsAcinetobacter lwoffii Flag: APatient: LOUISE James Order: [id number] Page 3Culture: CULTURE WOUND Status: Final =====ISOLATE [...] Vancomycin S S P1 Test performed by: [facility] #: [id number] [address] [place] [address] [id number] [facility] [id number] Director : Jarod Ratliff MD NPI #:Hide Worker : 05/11/[email or web address].SENT REF 05/11/20.1546.XMT.SENT REF 05/12/20.1210.XMT.SENT REF ID Date Data Source [id number] 05/12/2020 12:09:00 PM EST [facility] Name Value Range Interpretation Code Description Data Chela rce(s) Supporting Document(s) CULTURE WOUND [facility] _CULTURE WOUND_$$[id number] DATE/TIME: 05/12/2020 11:06Culture: CULTURE WOUND Status: FinalIsolate [...] 05/10/2020 10:00 ET Staphylococcus aureusAerobic Bacterial Culture: [id number] aureus Flag: AIsolate 2 Acinetobacter lwoffii Flag: A . . . . . . .8Moderate growth Previous result entered on 05/11/2020 13:35 ET -- Continued on next page --Patient: LOUISE James Order: [id number] Page 2Culture: CULTURE WOUND Status: Final ====Gram negative rods Previous result entered on 05/10/2020 10:00 ET Gram negative rodsAcinetobacter lwoffii Flag: APatient: LOUISE James Order: [id number] Page 3Culture: CULTURE WOUND Status: Final ====ISOLATE [...] Vancomycin S S P1 [facility] by: [facility] #: [id number] [address] [id number] [facility] [id number] Director : Jarod Ratliff MD NPI #:Hide Worker : 05/11/[email or web address].SENT REF 05/11/20.1546.XMT.SENT REF 05/12/20.1210.XMT.SENT REF Procedure Social History Code Duration Value Status Description Data Source(s ) Smoking 03/01/2021 12:00:00 AM EDT Patient is a former smoker completed Patient is a former smoker [facility] ([facility]) Smoking 12/25/2020 12:00:00 AM EDT Patient has never smoked co mpleted Patient has never smoked [facility] ([facility]) Smoking 07/24/2020 12:00:00 AM EST Former Smoker completed Former Smoker eCW1 ([facility]) Smoking 07/24/2020 12:00:00 AM EST Former Smoker completed Former Smoker eCW1 ([facility]) Smoking 07/24/2020 12:00:00 AM EST Former Smoker completed Former Smoker eCW1 ([facility]) Smoking 07/24/2020 12:00:00 AM EST Former Smoker completed Former Smoker eCW1 ([facility]) Smoking 07/24/2020 12:00:00 AM EST Former Smoker completed Former Smoker eCW1 ([facility]) Smoking 07/24/2020 12:00:00 AM EST Former Smoker completed Former Smoker eCW1 ([facility]) Smoking 07/24/2020 12:00:00 AM EST Former Smoker completed Former Smoker eCW1 ([facility]) Smoking 07/24/2020 12:00:00 AM EST Former Smoker completed Former Smoker eCW1 ([facility]) Vital Signs ID Date Data Source UNK Name Value Range Interpretation Code Description Data Source(s) Body height 66 [in_i] 66 [in_i] [facility] ([facility]) 5'6" Heart rate 81 /min 81 /min [facility] ([facility]) Systolic blood pressure--sitting 120 mm[Hg] 120 mm[Hg] [facility] ([facility]) LA, large cuff Diastolic blood pressure--sitting 82 mm[Hg] 82 mm[Hg] [facility] ([facility]) LA, large cuff Body height 66 [in_i] 66 [in_i] [facility] ([facility]) 5'6" Systolic blood pressure--sitting 106 mm[Hg] 106 mm[Hg] [facility] ([facility]) Ra, large cuff Diastolic blood pressure--sitting 60 mm[Hg] 60 mm[Hg] [facility] ([facility]) Ra, large cuff Heart rate 78 /min 78 /min [facility] ([facility]) Systolic blood pressure--sitting 100 mm[Hg] 100 mm[Hg] [facility] ([facility]) CBP, large cuff/LA Diastolic blood pressure--sitting 63 mm[Hg] 63 mm[Hg] [facility] ([facility]) CBP, large cuff/LA Body height 66 [in_i] 66 [in_i] [facility] ([facility]) 5'6" Body height 66 [in_i] 66 [in_i] [facility] ([facility]) 5'6" Heart rate 75 /min 75 /min [facility] ([facility]) Systolic blood pressure--sitting 113 mm[Hg] 113 mm[Hg] [facility] ([facility]) CBP, large cuff/LA Diastolic blood pressure--sitting 73 mm[Hg] 73 mm[Hg] [facility] ([facility]) CBP, large cuff/LA Body height 70 [...] Systolic blood pressure 93 mm[Hg] 93 mm[Hg] [facility] Diastolic blood pressure 53 mm[Hg] 53 mm[Hg] [facility] Body temperature 36.67 Oly 36.67 Oly [facility] Respiratory rate 20 /min 20 /min [facility] Oxygen saturation in Arterial blood by Pulse oximetry 96 % 96 % [facility] Heart rate 75 /min 75 /min [facility] Body weight 93.759 kg 93.759 kg [facility] Inhaled oxygen concentration 21 % 21 % [place] ([facility]) Systolic blood pressure 132 mm[Hg] 132 mm[Hg] [place] ([facility]) Diastolic blood pressure 78 mm[Hg] 78 mm[Hg] [place] ([facility]) Heart rate 75 /min 75 /min [place] ([facility]) Respiratory rate 24 /min 24 /min [place] ([facility]) Body temperature 95.6 [degF] 95.6 [degF] [facility] Oxygen saturation in Arterial blood by Pulse oximetry 95 % 95 % [place] ([facility]) Inhaled oxygen flow rate 0 L/min 0 L/min [place] ([facility]) Respiratory rate 24 /min 24 /min [place] ([facility]) Diastolic blood pressure 72 mm[Hg] 72 mm[Hg] [place] ([facility]) Body temperature 97.2 [degF] 97.2 [degF] [facility] ([facility]) Oxygen saturation in Arterial blood by Pulse oximetry 98 % 98 % [place] ([facility]) Systolic blood pressure 126 mm[Hg] 126 mm[Hg] [place] ([facility]) Heart rate 80 /min 80 /min [place] ([facility]) Body weight 200 [lb_av] 200 [lb_av] [place] [facility] Inhaled oxygen flow rate 0 L/min 0 L/min [place] ([facility]) Inhaled oxygen concentration 21 % 21 % [place] ([facility]) Body weight 201 [lb_av] 201 [lb_av] eCW1 ([facility]) Body weight kg eCW1 ([facility]) Body height [in_i] eCW1 ([facility]) Body mass index (BMI) [Ratio] 31.95 kg/m2 31.95 kg/m2 W1 ([facility]) Heart rate 68 /min 68 /min eCW1 ([facility]) Respiratory rate 18 /min 18 /min eCW1 ([facility]) Body temperature 98.4 [degF] 98.4 [degF] eCW1 ( [facility]) Systolic blood pressure 154 mm[Hg] 154 mm[Hg] e CW1 ([facility]) Diastolic blood pressure 75 mm[Hg] 75 mm[Hg] eCW1 ([facility]) Body mass index (BMI) [Ratio] 28.93 kg/m2 28.93 kg/m2 eCW1 ([facility]) Heart rate 101 /min 101 /min eCW1 ([facility]) Respiratory rate 18 /min 18 /min eCW1 ([facility]) Body temperature 96.5 [degF] 96.5 [degF] eCW1 ( [facility]) Systolic blood pressure 142 mm[Hg] 142 mm[Hg] e CW1 ([facility]) Diastolic blood pressure 83 mm[Hg] 83 mm[Hg] eCW1 ([facility]) Body height [in_i] eCW1 ([facility]) Body weight [lb_av] eCW1 ([facility]) Body height 70 [in_i] 70 [in_i] [facility] (Neymar Hilario [facility]) 5'10" Body temperature 99.9 [degF] 99.9 [degF] [facility] ([facility] Hilario [facility]) Systolic blood pressure 125 mm[Hg] 125 mm[Hg] M EDENT (Neymra Hilario [facility]) Diastolic blood pressure 88 mm[Hg] 88 mm[Hg] [facility] ([facility] H[facility]) Heart rate 108 /min 108 /min [facility] ([facility] Hilario [facility]) Oxygen saturation in Arterial blood by Pulse oximetry 96 % 96 % [facility] ([facility]ymar iHlario MD) Respiratory rate 16 /min 16 /min [facility] ( Neymar Hilario MD) Systolic blood pressure 141 mm[Hg] 141 mm[Hg] e CW1 ([facility]) Body weight [lb_av] eCW1 ([facility]) Body height [in_i] eCW1 ([facility]) Diastolic blood pressure 74 mm[Hg] 74 mm[Hg] eCW1 ([facility]) Heart rate 117 /min 117 /min eCW1 ([facility]) Respiratory rate 18 /min 18 /min eCW1 ([facility]) Body temperature 99.6 [degF] 99.6 [degF] eCW1 ( [facility]) Systolic blood pressure 118 mm[Hg] 118 mm[Hg] [place] ([facility]) Diastolic blood pressure 68 mm[Hg] 68 mm[Hg] [place] ([facility]) Heart rate 97 /min 97 /min [place] ([facility]) Respiratory rate 24 /min 24 /min [place] ([facility]) Body temperature 97.6 [degF] 97.6 [degF] [place] ([facility]) Oxygen saturation in Arterial blood by Pulse oximetry 98 % 98 % [place] ([facility]) Diastolic blood pressure 78 mm[Hg] 78 mm[Hg] [place] ([facility]) Oxygen saturation in Arterial blood by Pulse oximetry 92 % 92 % [place] ([facility]) Inhaled oxygen concentration 21 % 21 % [place] ([facility]) Systolic blood pressure 130 mm[Hg] 130 mm[Hg] [facility] ([facility]) Heart rate 90 /min 90 /min [place] ([facility]) Respiratory rate 24 /min 24 /min [place] ([facility]) Body temperature 97.3 [degF] 97.3 [degF] [place] ([facility]) Inhaled oxygen flow rate 0 L/min 0 L/min [place] ([facility]) Heart rate 95 /min 95 /min [place] ([facility]) Systolic blood pressure 124 mm[Hg] 124 mm[Hg] G [facility] ([facility]) Respiratory rate 24 /min 24 /min [place] ([facility]) Body temperature 97.8 [degF] 97.8 [degF] [place]) Oxygen saturation in Arterial blood by Pulse oximetry 99 % 99 % [place] ([facility]) Inhaled oxygen flow rate 0 L/min 0 L/min [place] ([facility]) Inhaled oxygen concentration 21 % 21 % [place] ([facility]) Diastolic blood pressure 76 mm[Hg] 76 mm[Hg] [place] ([facility]) Systolic blood pressure 130 mm[Hg] 130 mm[Hg] G [facility] ([facility]) L calf measurement 47 cm, L foot 31 cm, and R calf 37 cm , L foot 26 cm Diastolic blood pressure 80 mm[Hg] 80 mm[Hg] [place] ([facility]) L calf measurement 47 cm, L foot 31 cm, and R calf 37 cm , L foot 26 cm Heart rate 99 /min 99 /min [place] ([facility]) L calf measurement 47 cm, L foot 31 cm, and R calf 37 cm , L foot 26 cm Respiratory rate 24 /min 24 /min [place] ([facility]) L calf measurement 47 cm, L foot 31 cm, and R calf 37 cm , L foot 26 cm Body temperature 97.6 [degF] 97.6 [degF] [facility] ([facility]) L calf measurement 47 cm, L foot 31 cm, and R calf 37 cm , L foot 26 cm Oxygen saturation in Arterial blood by Pulse oximetry 98 % 98 % [place] ([facility]) L calf measurement 47 cm, L foot 31 cm, and R calf 37 cm , L foot 26 cm Inhaled oxygen flow rate 0 L/min 0 L/min [place] ([facility]) L calf measurement 47 cm, L foot 31 cm, and R calf 37 cm , L foot 26 cm Inhaled oxygen concentration 21 % 21 % [place] ([facility]) L calf measurement 47 cm, L foot 31 cm, and R calf 37 cm , L foot 26 cm Heart rate 78 /min 78 /min [place] ([facility]) Measured calf circumferance. Left 15.5 i n in diameter. Right, 20 inches in diameter. TS Respiratory rate 22 /min 22 /min [place] ([facility]) Measured calf circumferance. Left 15.5 i n in diameter. Right, 20 inches in diameter. TS Body temperature 96.8 [degF] 96.8 [degF] [facility]) Measured calf circumferance. Left 15.5 i n in diameter. Right, 20 inches in diameter. TS Oxygen saturation in Arterial blood by Pulse oximetry 94 % 94 % [place] ([facility]) Measured calf circumferance. Left 15.5 i n in diameter. Right, 20 inches in diameter. TS Inhaled oxygen flow rate 0 L/min 0 L/min [place] ([facility]) Measured calf circumferance. Left 15.5 i n in diameter. Right, 20 inches in diameter. TS Inhaled oxygen concentration 21 % 21 % [facility]) Measured calf circumferance. Left 15.5 i n in diameter. Right, 20 inches in diameter. TS Systolic blood pressure 122 mm[Hg] 122 mm[Hg] G [facility] ([facility]) Measured calf circumferance. Left 15.5 i n in diameter. Right, 20 inches in diameter. TS Diastolic blood pressure 70 mm[Hg] 70 mm[Hg] [place] ([facility]) Measured calf circumferance. Left 15.5 i n in diameter. Right, 20 inches in diameter. TS Patient Treatment Plan of Care Planned Activity Planned Date Details Description Data Source (s) quetiapine 100 MG Oral Tablet [Seroquel] 08/03/2020 12:00:00 AM [facility] ([facility]) Acetaminophen 325 MG / Hydrocodone Bitartrate 5 MG Ora l Tablet 08/03/2020 12:00:00 AM [facility] ([facility]) gabapentin 300 MG Oral Capsule 07/28/2020 12:00:00 AM [facility] ([facility]) atorvastatin 20 MG Oral Tablet 07/28/2020 12:00:00 AM [facility] ([facility]) Senna 8.6 MG Oral Tablet 07/28/2020 12:00:00 AM [facility] ([facility]) Acetaminophen 325 MG Oral Tablet 07/28/2020 12:00:00 AM [facility] ([facility]) Aspercreme Lidocaine 4% External Patch 07/28/2020 12:00:00 AM [facility] ([facility]) Citalopram 20 MG Oral Tablet 07/28/2020 12:00:00 AM [facility] ([facility]) duloxetine 30 MG Delayed Release Oral Capsule [Cymbalt a] 07/28/2020 12:00:00 AM [facility] ([facility]) Diltiazem Hydrochloride 30 MG Oral Tablet 07/28/2020 12:00:00 AM [facility] ([facility]) Furosemide 20 MG Oral Tablet [Lasix] 07/28/2020 12:00:00 AM [facility] ([facility]) Pramipexole dihydrochloride 1 MG Oral Tablet [Mirapex] 07/28/2020 12:00:00 AM [facility] ([facility]) pantoprazole 40 MG Delayed Release Oral Tablet 07/28/2020 12:00:00 AM [facility] ([facility]) quetiapine 50 MG Oral Tablet 07/28/2020 12:00:00 AM [facility]) Carboxymethylcellulose Sodium 5 MG/ML Ophthalmic Solut ion 07/28/2020 12:00:00 AM [facility] ([facility]) rivaroxaban 20 MG Oral Tablet [Xarelto] 07/28/2020 12:00:00 AM [facility]) gabapentin 600 MG Oral Tablet 07/28/2020 12:00:00 AM [facility]) Senna 8.6 MG Oral Tablet 07/21/2020 12:00:00 AM [facility]) gabapentin 300 MG Oral Capsule 07/20/2020 12:00:00 AM [facility]) rivaroxaban 20 MG Oral Tablet [Xarelto] 07/20/2020 12:00:00 AM [facility]) Acetaminophen 325 MG / Hydrocodone Bitartrate 5 MG Ora l Tablet 07/20/2020 12:00:00 AM [facility]) atorvastatin 20 MG Oral Tablet 07/20/2020 12:00:00 AM [facility]) Levofloxacin 500 MG Oral Tablet [Levaquin] 06/12/2020 12:00:[address] [place] ([facility]) Diltiazem Hydrochloride 30 MG Oral Tablet 06/04/2020 12:00:00 AM [facility] [place] ([facility]) Acetaminophen 325 MG Oral Tablet 06/04/2020 12:00:00 AM [facility]) Aspercreme Lidocaine 4% External Patch 06/04/2020 12:00:00 AM [facility]) Citalopram 20 MG Oral Tablet 06/04/2020 12:00:00 AM [facility]) Pramipexole dihydrochloride 1 MG Oral Tablet [Mirapex] 06/04/2020 12:00:00 AM [facility] [place] ([facility]) Acetaminophen 325 MG / Hydrocodone Bitartrate 5 MG Ora l Tablet 06/04/2020 12:00:00 AM [facility] [place] ([facility]) quetiapine 50 MG Oral Tablet 06/04/2020 12:00:00 AM [facility] [place] ([facility]) Furosemide 20 MG Oral Tablet [Lasix] 06/04/2020 12:00:00 AM [facility] [place] ([facility]) gabapentin 300 MG Oral Capsule 06/04/2020 12:00:00 AM [facility] [place] ([facility]) duloxetine 30 MG Delayed Release Oral Capsule [Cymbalt a] 06/04/2020 12:00:00 AM EST [place] ([facility]) pantoprazole 40 MG Delayed Release Oral Tablet 06/04/2020 12:00:00 AM EST [place] ([facility]) atorvastatin 20 MG Oral Tablet [Lipitor] 06/04/2020 12:00:[address] [place] [facility]) Carboxymethylcellulose Sodium 5 MG/ML Ophthalmic Solut ion 06/04/2020 12:00:00 AM [place] [facility]) Senna 8.6 MG Oral Tablet 06/04/2020 12:00:00 AM EST [place] ([facility]) rivaroxaban 20 MG Oral Tablet [Xarelto] 06/04/2020 12:00:[address] [place] [facility]) Mupirocin 0.02 MG/MG Topical Ointment 06/04/2020 12:00:00 AM EST [place] ([facility]) pantoprazole 40 MG Delayed Release Oral Tablet 05/25/2020 12:00:[address] [place] [facility]) Amoxicillin 875 MG / Clavulanate 125 MG Oral Tablet 05/06/20 12:00:[address] [place] [facility]) Mupirocin 0.02 MG/MG Topical Ointment 05/06/2020 12:00:00 AM EST [place] ([facility]) Acetaminophen 325 MG / Hydrocodone Bitartrate 5 MG Ora l Tablet 04/28/2020 12:00:00 AM EST [place] ([facility]) quetiapine 50 MG Oral Tablet 04/06/2020 12:00:00 AM EST [place] ([facility]) pantoprazole 40 MG Delayed Release Oral Tablet [Proton ix] 04/06/2020 12:00:00 AM EST [place] ([facility]) Pramipexole dihydrochloride 1 MG Oral Tablet [Mirapex] 04/06/2020 12:00:00 AM EST [place] ([facility]) Melatonin 5 MG Oral Tablet 04/06/2020 12:00:00 AM EST [place] ([facility]) atorvastatin 20 MG Oral Tablet [Lipitor] 04/06/2020 12:00:00 AM EST [place] ([facility]) Furosemide 20 MG Oral Tablet [Lasix] 04/06/2020 12:00:00 AM EST [place] ([facility]) Levetiracetam 750 MG Oral Tablet [Keppra] 04/06/2020 12:00:00 AM [facility] [place] ([facility]) gabapentin 300 MG Oral Capsule 04/06/2020 12:00:[address] [place] [facility]) Diltiazem Hydrochloride 30 MG Oral Tablet 04/06/2020 12:00:00 AM [facility] ([facility]) duloxetine 30 MG Delayed Release Oral Capsule [Cymbalt a] 04/06/2020 12:00:00 AM EST [place] ([facility]) Citalopram 20 MG Oral Tablet 04/06/2020 12:00:00 AM EST [place] ([facility]) buspirone hydrochloride 5 MG Oral Tablet 04/06/2020 12:00:[address] [place] [facility]) Senna 8.6 MG Oral Tablet 04/06/2020 12:00:00 AM [facility] [place] ([facility]) rivaroxaban 20 MG Oral Tablet [Xarelto] 04/06/2020 12:00:[address] [place] [facility]) LUIS M Elastic Bandage 4" Miscellaneous 04/06/2020 12:00:00 AM EST [place] ([facility]) Aspercreme Lidocaine 4% External Patch 04/06/2020 12:00:00 AM EST [place] ([facility]) Acetaminophen 325 MG Oral Tablet 04/06/2020 12:00:00 AM [facility] ([facility]) Carboxymethylcellulose Sodium 5 MG/ML Ophthalmic Solut ion 04/06/2020 12:00:00 AM EST [place] ([facility]) Acetaminophen 325 MG / Hydrocodone Bitartrate 5 MG Ora l Tablet 04/06/2020 12:00:00 AM [facility] ([facility]) Carboxymethylcellulose Sodium 5 MG/ML Ophthalmic Solut ion 04/06/2020 12:00:00 AM [facility] ([facility]) Acetaminophen 325 MG / Hydrocodone Bitartrate 5 MG Ora l Tablet 03/30/2020 12:00:00 AM EST [place] ([facility]) LUIS M Elastic Bandage 4" Miscellaneous 03/16/2020 12:00:00 AM [facility] ([facility]) Acetaminophen 325 MG / Hydrocodone Bitartrate 5 MG Ora l Tablet 03/04/2020 12:00:00 AM EDT [place] ([facility]) lidocaine (ASPERCREME) 4 % [facility] 09/19/2019 12:00:00 AM EDT [facility] Ondansetron 4 MG Disintegrating Oral Tablet 09/18/2019 12:00:00 AM EDT [facility] Furosemide 20 MG Oral Tablet [Lasix] 08/05/2019 12:00:00 AM [facility] ([facility]) carvedilol 12.5 MG Oral Tablet [facility] sennosides, SNF 8.6 MG Oral Tablet [facility] Oxycodone Hydrochloride 5 MG Oral Tablet [facility] Omeprazole 20 MG Delayed Release Oral Capsule [facility] Pramipexole dihydrochloride 1 MG Oral Tablet [Mirapex] [facility] mineral oil external liquid [facility] Magnesium Hydroxide 80 MG/ML Oral Suspension [facility] Melatonin 3 MG Oral Tablet S [facility] Levetiracetam 750 MG Oral Tablet [facility] Sodium Phosphate, Dibasic 35.5 MG/ML / S odium Phosphate, Monobasic 96.4 MG/ML Enema [facility] Bisacodyl 10 MG Rectal Suppository [facility] buspirone hydrochloride 5 MG Oral Tablet [facility] Acetaminophen 325 MG Oral Tablet [facility]
[2021-03-22] MEDS ORDERED: SENN8.6T28 PO (19:17)
[2021-03-22] MEDS ORDERED: ACET-907 PO (19:17)
[2021-03-22] MEDS ORDERED: CARV6.25 PO (19:17)
[2021-03-22] MEDS ORDERED: QUET50TA4 PO (19:17)
[2021-03-22] MEDS ORDERED: DULO1CAP4 PO (19:17)
[2021-03-22] MEDS ORDERED: ASPI-161 PO (19:17)
[2021-03-22] MEDS ORDERED: DULC10SU2 PR (19:17)
[2021-03-22] MEDS ORDERED: ELIQ5TAB PO (19:17)
[2021-03-22] MEDS ORDERED: ENTR1TAB PO (19:17)
[2021-03-22] MEDS ORDERED: MILK400S19 PO (19:17)
[2021-03-22] MEDS ORDERED: ROZE8TAB16 PO (19:17)
[2021-03-22] MEDS ORDERED: FLEEENE12 PR (19:17)
[2021-03-22] MEDS ORDERED: TORS20TA2 PO (19:17)
[2021-03-22] MEDS ORDERED: HOME MED LIST COMPLETE! XX SCH (19:20)
[2021-03-22 19:24] LABS: OSMOLALITY URINE 345 MOSM/KG (50-1400)
[2021-03-22 19:32] LABS: PROTEIN, URINE AUTO NEGATIVE (NEGATIVE)
[2021-03-22] MEDS ORDERED: ALBUTEROL SULFATE 2.5 MG/0.5 ML INH NEB SOLN NEB PRN (19:35)
[2021-03-22 19:37] LABS: POTASSIUM RANDOM URINE 22.6 MEQ/L; SODIUM,RANDOM URINE 29 MEQ/L
--- NOTE | 2021-03-22 20:08 | HPEPDOC ---
General Date of Admission 03/22/21 Date of Service: Mar 22, 2021 Chief Complaint The patient is a 70-year-old male admitted with a reason for visit of Abnormal Imaging, Low Blood Pressure. 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 fib, CAD status post CABG, systolic CHF and ischemic cardiomyopathy with EF of 25%, seizure disorder was sent over from the detention for massive swelling of the right leg with discoloration of the right leg. Patient was sent to radiology for arterial and venous ultrasound. In the radiology department he was noted to have blood pressure of 70/40 so was sent to ED. The arterial ultrasound did not show any occlusion or severe stenosis of blood flow, venous ultrasound showed chronic nonocclusive clot. He was also not ed to be hypotensive in the detention so was sent to the ED for evaluation. Patient reported that te swelling was really bad for 5 days with water coming out. He complains of pain in the right leg 5/10 in tensity could not characterize the pain. Patient was admitted for Shock Septic vs cardiogenic, DIEGO on CKD, Right leg cellulitis and pneumonia. Right extremity arterial ultrasound : mild scattered plaque with no evidence of occlusion or significant stenosis of the visualized arterial structures. The calf arteries could not be visualized due to overlying bandaging. Venous ultrasound: There is linear echogenic material seen in the same vessels where nonocclusive acute thrombus was diagnosed from the prior exam. Likely chronic changes in the right common femoral vein and superficial femoral vein proximally. Certainly, this examination cannot determine whether or not there is additional acute disease superimposed upon chronic change. The fact that vessel coaptation was identified is reassuring. Due to the fact that the the calf deep veins particularly the peroneal vein and posterior tibial vein could not be imaged a deep vein thrombosis in the calf cannot be ruled out by today's exam. Chest Xray: Atelectasis or pneumonia in the right lung base, Status post CABG surgery and pacemaker placement. Congestive heart failure. Home Medications Scheduled Apixaban (Eliquis) 5 Mg Tablet, 5 MG PO BID, (Reported) Aspirin (Aspirin EC) 81 Mg Tablet.dr, 81 MG PO DAILY, (Reported) Atorvastatin Calcium (Atorvastatin Calcium) 20 Mg Tablet, 20 MG PO DAILY, (Reported) Carvedilol (Carvedilol) 6.25 Mg Tablet, 6.25 MG PO BID, (Reported) Duloxetine Hcl (Duloxetine HCl) 20 Mg Capsule.dr, 40 MG PO DAILY, (Reported) Gabapentin (Gabapentin) 600 Mg Tablet, 600 MG PO Q12H, (Reported) 0800, 2000 Pantoprazole Sodium (Pantoprazole Sodium) 40 Mg Tablet.dr, 40 MG PO DAILY, (Reported) Pramipexole Di-HCl (Pramipexole Dihydrochloride) 1 Mg Tablet, 1 MG PO BID, (Reported) Quetiapine Fumarate (Quetiapine Fumarate) 50 Mg Tablet, 50 MG PO QHS, (Reported) Ramelteon (Rozerem) 8 Mg Tablet, 8 MG PO QHS, (Reported) Sacubitril/Valsartan (Entresto 24 mg-26 mg Tablet) 1 Each Tablet, 1 TAB PO BID, (Reported) Sennosides (Senna) 8.6 Mg Tablet, 2 TAB PO DAILY, (Reported) Torsemide (Torsemide) 20 Mg Tablet, 80 MG PO DAILY, (Reported) Scheduled PRN Acetaminophen (Tylenol) 325 Mg Tablet, 650 MG PO Q4H PRN for MILD PAIN or TEMP > 100.4, (Reported) Bisacodyl (Dulcolax) 10 Mg Supp.rect, 10 MG IA DAILY PRN for CONSTIPATION, (Reported) Magnesium Hydroxide (Milk of Magnesia) 400 Mg/5 Ml Oral.susp, 30 ML PO DAILY PRN for CONSTIPATION, (Reported) Sodium Phosphate,Reynolds-Dibasic (Fleet Enema) 133 Ml Enema, 1 TRELL IA DAILY PRN for CONSTIPATION, (Reported) Allergies Coded Allergies: bupropion (Verified Allergy, Unknown, 07/10/19) divalproex sodium (Verified Allergy, Unknown, 07/10/19) paroxetine (Verified Allergy, Unknown, 07/10/19) simvastatin (Verified Allergy, Unknown, 07/10/19) Past Medical History Medical History Hemorrhagic CVA in left MCA territory with residual Right hemiparesis in 2018 Expressive aphasia Multiple episodes of GI bleed likely due to anticoagulation Duodenal ulcers with h/o GIB Duodenal diverticulum Systolic CHF EF of 25% to 30%. AICD Ischemic cardiomyopathy Chronic Afib CAD s/p CABG in 2008 Chronic Bilateral DVT (on Xarelto), IVC filter in place Depression Anxiety Behavioral issues RLS Chronic right leg edema Seizure disorder Chronic constipation Elevated right hemidiaphragm Surgical History CABG [address] Robotic right inguinal hernia repair 2016, IVC placement 2019, Right hip # s/p ORIF COLONOSCOPY- DR GRIMES- 2 POLYPS- REPEAT IN 05/2016 Family History Father at age 76 years from lung cancer Mother at age 84 years from lung cancer Sister with colon cancer Siblings with history of stroke, hypertension, heart disease Social History * Smoker: former Smoker Alcohol: Denies Drugs: denies A-FIB/CHADSVASC A-FIB History Current/History of A-Fib/PAF?: Yes Current PO Anticoag Therapy: Yes Review of Systems Constitutional: Denies: Chills, Fever, Night Sweats Eyes: Denies: Pain, Vision change ENT: Denies: Head Aches, Ear Pain, Dysphagia Skin: Reports: Dry, Breakdown, Nail Changes Pulmonary: Reports: Dyspnea; Denies: Cough Cardiovascular: Denies: Chest Pain, Palpitations, Orthopnea, Paroxysmal Noc. Dyspnea Gastrointestinal: Denies: Nausea, Vomiting, Abdominal Pain Hematologic: Denies: Bruising, Bleeding Excessively Musculoskeletal: Reports: Leg Pain, Foot Pain, Joint Pain Neurological: Reports: Weakness (right side), Other Symptoms (aphasia) Physical Examination General Exam: Positive: Alert, Cooperative, No Acute Distress Eye Exam: Positive: PERRLA, Conjunctiva & lids normal ENT Exam: Positive: Atraumatic, Mucous membr. moist/pink Neck Exam: Positive: Supple; Negative: JVD, thyromegaly Chest Exam: Positive: Rales, Rhonchi, Wheezing, Other (diminished at the right base) Heart Exam: Positive: Rate Normal, Irregular Rhythm, Normal S1, Normal S2, Murmurs; Negative: Rubs Abdomen Exam: Positive: Normal bowel sounds, Soft; Negative: Tenderness Extremity Exam: Positive: Edema (right leg), Tenderness (right leg), Swelling (right leg and foot), Other (Lymphedema in the right leg and foot. ); Negative: Clubbing, Cyanosis Skin Exam: Positive: Breakdown, Other skin issue (leakage of fluid from alex right leg) Vital Signs Vital Signs Date Time Temp Pulse Resp B/P (MAP) Pulse Ox O2 Delivery O2 Flow Rate FiO2 10/25/21 17:24 16 03/22/21 17:15 69/43 (52) 03/22/21 17:00 82 97 03/22/21 15:42 98.0 Room Air Laboratory Data Labs 24H Laboratory Tests 2 03/22/21 16:08: Immature Granulocyte % (Auto) 3.3H, Neutrophils (%) (Auto) 68.9H, Lymphocytes (%) (Auto) 16.1L, Monocytes (%) (Auto) 5.9, Eosinophils (%) (Auto) 5.3H, Basophils (%) (Auto) 0.5, Neutrophils # (Auto) 4.4, Lymphocytes # (Auto) 1.0L, Monocytes # (Auto) 0.4, Eosinophils # (Auto) 0.3, Basophils # (Auto) 0.0, Nuc leated Red Blood Cells % (auto) 0.0, Anion Gap 9, Glomerular Filtration Rate 10.4L, Calcium Level 8.6L 03/22/21 16:29: Lactic Acid Level 1.8 03/22/21 16:30: Prothrombin Time 21.9H, Prothromb Time International Ratio 1.87, Activated Partial Thromboplast Time 54.5H, Blood Gas Bicarbonate Standard 22.0, Venous Blood pH 7.312L, Venous Blood Partial Pressure CO2 49.8, Venous Blood Partial Pressure O2 28.5L, Venous Blood Total Carbon Dioxide 26.2, Venous Blood HCO3 24.6, Venous Blood Oxygen Saturation 48.6L, Venous Blood Base Excess -1.9, Coronavirus (COVID-19)(PCR) NEGATIVE, Influenza Type A (RT-PCR) NEGATIVE, Influenza Type B (RT-PCR) NEGATIVE, Respiratory Syncytial Virus (PCR) NEGATIVE CBC/BMP Laboratory Tests 03/22/21 16:08 Microbiology Microbiology 03/22/21 Blood Culture, Received Pending 03/22/21 Blood Culture, Received Pending Assessment/Plan Shock Septic shock vs cardiogenic shock vs medication related He was started on sepsis protocol fluids but after 1 liter he was congested and becoming dyspneic so fluid was stopped. He was placed on levophed peripherally. Patient adamantly refused central line placement and spangler placement. will hold entresto, diuretics and betablockers for now. Right Leg chronic venous stasis changes, lymphedema with likely superadded skin and soft tissue infection start on ceftriaxone. will get CT of leg to assess for any abscess of drainable collection . If positive will need surgical consult. Advanced wound care consult. Possible right lower lobe pneumonia will be on ceftriaxone and doxycycline. DIEGO on CKD likely due to infection, sepsis, medications. patient was hypotensive on arrival to ED. He was started on sepsis protocol fluids but after 1 liter he was congested and becoming dyspneic so fluid was stopped. He had 260 cc urine output in ED consulted nephrology. Systolic CHF EF of 25% to 30% with wall motion abnormalities due to ischemic cardiomyopathy will hold of on entresto and diuretic due to low BP and DIEGO. CAD s/p CABG continue statin, asa, hold betablocker due to hypotension Chronic Afib continue Dronedarone and eliquis. held betablocker Chronic DVT bilateral. has IVC filter in place continue eliquis H/o CVA residual R sided hemiparesis and Expressive aphasia and chronic neuropathic pain and chronic right leg swelling. continue statin, gabapentin as per renal dose. Depression related to medical issues seroquel, trazodone Qtc 465 . Plan / VTE VTE Prophylaxis Ordered?: Yes Mera Clement MD Mar 22, 2021 18:28
[2021-03-22 21:02] LABS: OSMOLALITY SERUM 323 MOSM/KG (280-301)
--- NOTE | 2021-03-22 21:05 | REPVR ---
PROCEDURE INFORMATION: Exam: CT Right Lower Extremity Without Contrast; Lower Leg Exam date and time: 03/22/2021 8:38 PM Age: 70 years old Clinical indication: Swelling, leg or foot; Additional info: Assess for infection/abscess/collection TECHNIQUE: Imaging protocol: CT of the Right lower extremity without contrast was performed. Exam focused on the lower leg. Radiation optimization: All CT scans at this facility use at least one of these dose optimization techniques: automated exposure control; mA and/or kV adjustment per patient size (includes targeted exams where dose is matched to clinical indication); or iterative reconstruction. COMPARISON: US Duplex, Ext,LOWER veins,unilat RIGHT 03/22/2021 3:22 PM FINDINGS: Bones/joints: No osseous destruction. Bones are demineralized. No obvious fracture. Hardware is present in the distal femur. No significant knee joint effusion. Soft tissues: Dermal and subcutaneous soft tissue edema is present circumferentially involving the leg. No soft tissue air or identifiable soft tissue foreign body. No identifiable localized fluid collection although this is a limited noncontrast CT and therefore compromised in this regard. Muscular compartment soft tissue show no abnormal fluid collection and mild edema. Other findings: . IMPRESSION: 1. Dermal and subcutaneous edema suggesting cellulitis. On this limited noncontrast exam, I do not see obvious evidence of a focal fluid collection. 2. No osseous destruction Electronically signed by: Terrence Adame On 03/22/2021 21:05:29 PM
--- NOTE | 2021-03-22 21:08 | REPVR ---
PROCEDURE INFORMATION: Exam: CT Right Lower Extremity Without Contrast, Foot Exam date and time: 03/22/2021 8:38 PM Age: 70 years old Clinical indication: Swelling, leg or foot; Additional info: Assess for infection/abscess/collection TECHNIQUE: Imaging protocol: CT of the Right lower extremity without contrast was performed. Exam focused on the foot. Radiation optimization: All CT scans at this facility use at least one of these dose optimization techniques: automated exposure control; mA and/or kV adjustment per patient size (includes targeted exams where dose is matched to clinical indication); or iterative reconstruction. COMPARISON: US Duplex, Ext,LOWER veins,unilat RIGHT 03/22/2021 3:22 PM FINDINGS: Bones/joints: Diffuse skeletal demineralization. No osseous destruction. Relative maintenance of joint spaces for age. No osseous lesion. Soft tissues: Significant dermal and subcutaneous edema is present. No obvious focal fluid collection although this is a limited noncontrast CT.. No soft tissue air. IMPRESSION: Marked subcutaneous soft tissue edema without evidence of osseous destruction or a noncontrast CT evidence of a localized fluid collection Electronically signed by: Terrence Adame On 03/22/2021 21:08:15 PM
[2021-03-22 21:21] LABS: ALBUMIN 2.4 GM/DL (3.2-5.2); ALT/SGPT 17 U/L (12-78); AMYLASE 45 U/L (25-115); BILIRUBIN,DIRECT 0.1 MG/DL (0.0-0.2); BILIRUBIN,TOTAL 0.4 MG/DL (0.2-1.0); CK-MB VALUE MASS 2.6 NG/ML (<3.6); CPK CREATINE PHOSPHOKINASE 524 U/L (39-308); MAGNESIUM LEVEL 2.1 MG/DL (1.8-2.4); TOTAL PROTEIN 6.8 GM/DL (6.4-8.2); TROPONIN I < 0.02 NG/ML (< 0.10); URIC ACID 14.7 MG/DL (3.5-7.2)
[2021-03-22] MEDS: DOXYCYCLINE HYCLATE 100 MG in D5W MINI-BAG PLUS 100 ML IV SCH (21:21)
[2021-03-22] MEDS: QUEtiapine FUMARATE 50MG TAB PO SCH (21:21)
[2021-03-22] MEDS: GABAPENTIN 300 MG CAP PO SCH (21:21)
[2021-03-22] MEDS: APIXABAN 5 MG TAB (ELIQUIS) PO SCH (21:21)
[2021-03-22] MEDS: PRAMIPEXOLE 1 MG TAB PO SCH (22:51)
[2021-03-22 23:35] LABS: CALCIUM LEVEL 8.4 MG/DL (8.8-10.2); CREATININE FOR GFR 4.99 MG/DL (0.70-1.30); GLOMERULAR FILTRATION RATE 12.3 (>42)
[2021-03-23] VITALS (64 sets, daily range): BP systolic 73–129; BP diastolic 43–102
[2021-03-23 02:22] LABS: APPEARANCE, URINE CLEAR (CLEAR); BACTERIA, URINE AUTO 1+ (NEGATIVE); BILIRUBIN, URINE AUTO NEGATIVE (NEGATIVE); BLOOD, URINE BLOOD NEGATIVE (NEGATIVE); COLOR, URINE STRAW (YELLOW); GLUCOSE, URINE (UA) AUTO NEGATIVE (NEGATIVE); KETONE, URINE AUTO NEGATIVE (NEGATIVE); LEUKOCYTE ESTERASE, URINE AUTO NEGATIVE (NEGATIVE); MUCUS, URINE SMALL (NEGATIVE); NITRITE, URINE AUTO NEGATIVE (NEGATIVE); PROTEIN, URINE AUTO NEGATIVE (NEGATIVE); RBC, URINE AUTO 1 /HPF (0-3); SPECIFIC GRAVITY URINE AUTO 1.008 (1.002-1.035); SQUAMOUS EPITHELIAL CELL UR AU 0 /HPF (0-6); UROBILINOGEN, URINE AUTO 0.2 mg/dL (0.0-2.0); WBC, URINE AUTO 1 /HPF (0-3)
[2021-03-23] MEDS ORDERED: NOREPINEPHRINE BITARTRATE 16 MG in D5W 484 ML IV SCH (06:00)
[2021-03-23 06:27] LABS: BASO % 0.5 % (0.0-1.0); EOS # 0.4 10^3/uL (0.0-0.5); HEMATOCRIT 28.3 % (42.0-52.0); HEMOGLOBIN 9.7 g/dl (13.5-17.5); LYMPH # 0.8 10^3/uL (1.5-5.0); LYMPH % 15.4 % (24.0-44.0); MEAN CORPUSCULAR HEMOGLOBIN 34.3 pg (27.0-33.0); MEAN CORPUSCULAR HGB CONC 34.3 g/dl (32.0-36.5); MONO # 0.4 10^3/uL (0.0-0.8); MONO % 7.7 % (2.0-8.0); NEUTROPHILS # 3.6 10^3/uL (1.5-8.5); NEUTROPHILS % 65.6 % (36.0-66.0); PLATELET COUNT, AUTOMATED 256 10^3/uL (150-450); RED BLOOD COUNT 2.83 10^6/uL (4.30-6.10); WHITE BLOOD COUNT 5.5 10^3/uL (4.0-10.0)
[2021-03-23 06:50] LABS: CALCIUM LEVEL 8.6 MG/DL (8.8-10.2); CREATININE FOR GFR 4.19 MG/DL (0.70-1.30); GLOMERULAR FILTRATION RATE 15.1 (>42)
[2021-03-23] MEDS: DOXYCYCLINE HYCLATE 100 MG in D5W MINI-BAG PLUS 100 ML IV SCH ×2 (09:33→21:00)
[2021-03-23] MEDS: APIXABAN 5 MG TAB (ELIQUIS) PO SCH ×2 (09:34→21:00)
[2021-03-23] MEDS: PRAMIPEXOLE 1 MG TAB PO SCH ×2 (09:34→21:00)
[2021-03-23] MEDS: ATORVASTATIN 20 MG TAB PO SCH (09:34)
[2021-03-23] MEDS: ASPIRIN 81MG ENTERIC TABLET PO SCH (09:34)
[2021-03-23] MEDS: DULoxetine 20 MG CAP (CYMBALTA) PO SCH (09:34)
[2021-03-23] MEDS: PANTOPRAZOLE 40MG TAB (PROTONIX) PO SCH (09:34)
--- NOTE | 2021-03-23 12:38 | CR ---
CONSULTATION DATE: 03/23/2021 REQUESTING PHYSICIAN: CHIQUIS SOSA MD REASON FOR CONSULTATION: Acute renal failure in this gentleman with superimposed chronic kidney disease. HISTORY OF PRESENT ILLNESS: Mr. Rao is a 70-year-old male with multiple chronic medical problems. He was admitted to [facility] yesterday due to massive edema of his right lower extremity and cellulitis. He was also noticed to have acute renal failure superimposed on chronic kidney disease. 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 History of recurrent GI bleed and has been off anticoagulation, history of bilateral DVT with IVC filter placement, history of atrial fibrillation, and coronary artery disease with prior CABG, history of severe cardiomyopathy with an ejection fraction of 25% and history of seizure disorder. He also has underlying chronic kidney disease and now on admission he was found to have worsening kidney function due to which Nephrology consultation was requested. Apparently, he was sent from the long term for ultrasound of his lower extremities due to increasing edema in his right lower extremity and he was found to have a blood pressure of 70/40 in the Radiology Department due to which he was sent to the Emergency Room and eventually got admitted. This morning I have seen him in the Intensive Care Unit. His blood pressure is still low and he is on low dose Levophed. He has also been receiving intravenous antibiotics since admission and IV fluids. The nursing staff reports that a Romero catheter was placed and 700 residual urine was noticed. Since then, he had a total of about 1 unit of urine output. PAST MEDICAL AND SURGICAL HISTORY: 1. History of hemorrhagic stroke in 1999 with right hemiparesis and expressive aphasia. 2. Multiple episodes of GI bleed likely due to anticoagulation. 3. History of duodenal ulcer. 4. History of systolic congestive heart failure with an ejection fraction of 25 to 30%, status post AICD placement. 5. History of ischemic cardiomyopathy. 6. History of chronic atrial fibrillation. 7. History of coronary artery disease, status post coronary artery bypass graft in 2008. 8. History of chronic bilateral lower extremity DVT, status post IVC filter placement. 9. History of depression. 10.Anxiety. 11.History of restless leg syndrome. 12.History of chronic kidney disease. 13.History of seizure disorder. PAST SURGICAL HISTORY: Significant for CABG in 2008, pacemaker placement, right inguinal hernia repair, IVC placement in 1999, right hip surgery, and colonoscopy. MEDICATIONS: The long term medications include Eliquis 5 mg b.i.d., aspirin 81 mg daily, atorvastatin 20 mg daily, Carvedilol 6.25 mg b.i.d., Gabapentin 600 mg every 12 hours, Duloxetine 20 mg daily, pantoprazole 40 mg daily, Pramipexole 1 mg at bedtime, Quetiapine 50 mg at bedtime, Rozerem 8 mg at bedtime as needed for insomnia, Entresto 24-26 mg one tablet b.i.d., torsemide 20 mg four tablets daily, Senokot two tablets daily, Tylenol as needed. ALLERGIES: Patient has allergies to Simvastatin, Paroxetine, Divalproex and Bupropion. PERSONAL AND SOCIAL HISTORY: He is currently a long term resident and is a former smoker. There is no alcohol or drug use. FAMILY HISTORY: Father is at age 76 from lung cancer, mother at age 84 due to lung cancer, one sister with colon cancer and siblings with a history of stroke, hypertension and heart disease. REVIEW OF SYSTEMS: GENERAL: Patient has expressive aphasia. He is laying in his bed with the head elevated. No fever or chills reported. HEENT: Ears, nose and throat are unremarkable. CARDIOVASCULAR: Significant for severe cardiomyopathy. He denies any chest pain. He has massive edema in the right lower extremity and minimal on the left. RESPIRATORY SYSTEM: Negative for cough or hemoptysis. GI: Significant for recurrent GI bleed in the past. : Significant for urinary retention for which he currently has a Romero catheter in place. There is mild hematuria. MUSCULOSKELETAL: Significant for chronic lower extremity edema. He has a history of DVTs. NEUROLOGIC: Significant for hemorrhagic stroke with right hemiparesis in 2018. Hematological system is significant for chronic anticoagulation and anemia. PSYCHOSOCIAL: Significant for depression and anxiety. SKIN: Significant for cellulitis on the right lower extremity. PHYSICAL EXAMINATION: VITAL SIGNS: Temperature is 97.2 degrees Fahrenheit, heart rate is 86 per minute, and respiratory rate is 18 per minute. Blood pressure is 103/57 mmHg and oxygen saturation 98% on room air. HEAD: Atraumatic. NECK: Supple. JVD is mildly elevated. HEART: His heart sounds are irregular in rhythm. LUNGS: Slightly diminished breath sounds and bibasilar rales. ABDOMEN: Soft and nontender. Bowel sounds are normal. EXTREMITIES: Without any cyanosis or clubbing. There is massive edema of his right lower extremity and cellulitis which is extending from his right foot all the way up to the lower thigh. NEUROLOGIC: He is awake and has right hemiparesis due to prior stroke. Today's labs shows a WBC count of 5.5, hemoglobin of 9.7 and hematocrit 28.3, platelets are 256,000. Last evening blood pressure repeat was 7.31, pCO2 of 49.8 and pO2 of 28.5. This was a venous blood gas. Urinalysis was unremarkable with only 1 WBC and 1 RBC. His chemistry last evening showed BUN 117 and creatinine 4.99. Today, his sodium is 141, potassium is 4.0, CO2 26, BUN 110 and creatinine 4.19, glucose of 114 and calcium 8.6. He had CT scan of the abdomen and pelvis done last evening which did not show any evidence for obstructive uropathy. PROBLEMS: 1. Acute renal failure superimposed on chronic kidney disease. Most likely this is related to hypotension caused by sepsis and urinary retention. Patient has no history of chronic kidney disease and now his kidney function is much worse. He has significant lower extremity edema. I would advise him to hydrate him only gently. His cellulitis will be treated aggressively as that is the underlying cause of his kidney problem. He already has a Romero catheter placed and it remains to be seen how his kidney function improves. At this point there is no emergent indication for dialysis. 2. Cellulitis of the right lower extremity. Patient has chronic edema due to DVT and now he has superimposed cellulitis. He should be treated with broad spectrum antibiotics as per recommendations from Infectious Disease Specialist. 3. Anemia, he does have a history of recurrent GI bleed in the past and also has been on anticoagulation. At this point his anemia is stable without any active bleeding. There is no emergent need for a transfusion. Thank you for involving me in the care of Mr. Rao. I will follow him along with you.
[2021-03-23] MEDS ORDERED: NOREPINEPHRINE BITARTRATE 8 MG in D5W 492 ML IV SCH (13:00)
--- NOTE | 2021-03-23 14:15 | RO ---
OPERATIVE NOTE DATE OF OPERATION: 03/23/2021 PRE-PROCEDURE DIAGNOSIS: Hypotension. POST-PROCEDURE DIAGNOSIS: Hypotension. PROCEDURE: Attempted placement of left femoral triple-lumen catheter under ultrasound guidance. SURGEON: Pedro Barnes DO NEUROSURGERY SPINE PHYSICIAN: None. ANESTHESIA: 3 mL of lidocaine. ESTIMATED BLOOD LOSS: 5 mL. COMPLICATIONS: Unable to pass the catheter over the guidewire. INDICATIONS FOR PROCEDURE: The patient is a 70-year-old male with hypotension and currently not responding to low dose pressors and needs central access so that he can be continued on pressor support away from a peripheral line. Risks and benefits of the procedure, not limited to, but including bleeding, infection, damage to surrounding structures, and need for further procedure, were discussed in detail with the patient. Informed consent was obtained and the procedure was scheduled. DESCRIPTION OF PROCEDURE: Ultrasound was used to examine the left groin unsterilely at first. The femoral vein was easily identifiable with good compression. The groin area was then sterilely prepped and draped with chlorhexidine and a drape. Once that was completed, again under sterile ultrasound guidance, I was able anesthetize the area just above the femoral vein. I then was able to insert a localization needle and get good blood flow. The guidewire was then passed smoothly into the vessel. The needle was removed. The skin incision was then made with an 11-blade scalpel followed by a dilator and followed by the triple-lumen catheter over top of the guidewire. I was able to pass the triple-lumen catheter about 4-5 cm in before it would kink. After that I removed the catheter and the guidewire, did two more attempts of the same process, and was unable to get the catheter pass any time. Because of that, I stopped. I told the patient that he does have an IVC filter in place and he also has lower extremity swelling and blood clots and there must be some part of proximal occlusion preventing this catheter from advancing. I recommend that we go to the neck and he refused. Because of that, I explained to the Hospitalist that he would be a candidate for a PICC line instead and one will be ordered for this afternoon.
--- NOTE | 2021-03-23 14:15 | CR ---
CONSULTATION DATE: 03/23/2021 REASON FOR CONSULTATION: Intravenous (IV) access for hypotension. HISTORY OF PRESENT ILLNESS: Patient is a 70-year-old male, resident of [facility] with a history of a hemorrhagic stroke in 2018 with residual right hemiparesis and expressive aphasia. He was brought over here yesterday due to hypotension as well as some right leg cellulitis. He does have a history of deep venous thromboses (DVTs) in the past. He currently is in the intensive care unit (ICU) on low dose of Levophed through a peripheral line, because he was refusing central line placement overnight. Currently still fairly hypotensive. They have been unable to wean him off of the pressors, and they have been unable to treat him with fluid boluses due to his poor ejection fraction and lung disease. Due to the need for persistent pressors, I have been asked to place a central line. I was able to explain the risks and benefits to him, and he agreed for the procedure. MEDICAL HISTORY: 1. Hemorrhagic cerebrovascular accident (CVA). 2. Expressive aphasia. 3. Multiple episodes of gastrointestinal (GI) bleeding. 4. Duodenal ulcers. 5. Systolic congestive heart failure (CHF) with an ejection fraction of 25%-30%. 6. Ischemic cardiomyopathy. 7. Chronic atrial fibrillation. 8. Coronary artery disease. 9. Chronic bilateral DVTs, on Xarelto with an inferior vena cava (IVC) filter in place. 10. Depression and anxiety. 11. Behavioral issues. 12. Seizure disorder. 13. Chronic constipation. SURGICAL HISTORY: 1. Coronary artery bypass graft (CABG) in 2008. 2. Pacemaker placement. 3. Robotic right inguinal hernia repair in 2016. 4. IVC filter placement in 2019. 5. Right hip surgery. 6. Colonoscopies. FAMILY HISTORY: Noncontributory. SOCIAL HISTORY: Denies drug, alcohol, or tobacco abuse. ALLERGIES: BUPROPION, DIVALPROEX, SODIUM, PAROXETINE, SIMVASTATIN. MEDICATIONS: Please see med rec. REVIEW OF SYSTEMS: Difficult to obtain at this time due to patient's aphasia. He is able to answer some yes and no questions. PHYSICAL EXAMINATION: GENERAL: Patient is awake and alert. VITAL SIGNS: Temperature 97.9, pulse 87, respirations 19, blood pressure 91/52, pulse oximetry 96% on room air. HEENT: Pupils equally round and reactive to light and accommodation. HEART: S1, S2, regular rate and rhythm. LUNGS: Clear to auscultation bilaterally. ABDOMEN: Soft, nontender, nondistended. EXTREMITIES: Significant right lower extremity swelling, edema, and erythema. There is also pitting edema in the left lower extremity. LABORATORY DATA: White count 5.5, hemoglobin 9.7, platelets 256. INR 1.87, PT 21.9. Potassium 4, creatinine 4.19. ASSESSMENT AND PLAN: The patient is a 70-year-old male with hypotension, not responding to low-dose pressors and difficult to treat with intravenous (IV) fluids at this time. RECOMMENDATIONS: Central line placement for continued pressor support. Patient was able to be talked into a central line this morning by the hospitalist. I obtained consent at the bedside. He was able to sign for himself. I attempted three separate times to gain access to the left groin under ultrasound guidance. I was able to pass a needle, pass a guidewire, but the catheter would not pass through with three separate attempts. After that I discussed placing one in the neck. He refused. I relayed that message to the hospitalist, who will order a peripherally inserted central catheter (PICC) line for him and will hopefully get that done sometime this afternoon.
--- NOTE | 2021-03-23 14:15 | CR ---
CONSULTATION DATE: 03/23/2021 Advanced wound care consult via telemedicine.MairaElias CONSULT REQUESTED BY: Mera Clement MD. However, Terrell Jarquin DO is the attending physician at this time. Wound care telemedicine provides a visual assessment of a wound or wounds without the benefit of physical examination. It can assist with establishing a diagnosis and etiology. This allows for an initial treatment plan. As wounds often change, it may be necessary to modify the original care. Our recommendation is periodic wound reassessment to monitor treatment. Failure to comply may result in nonhealing of the wound or wounds, possible complications and/or a poor outcome. The recommendations given will serve as treatment options. As I will not be following this patient, this care plan will require the attending physician to give and sign the orders. Upon discharge, outpatient followup can be arranged if applicable. HISTORY OF PRESENT ILLNESS: Patient identified informed consent verbally obtained A 70-year-old snf patient who appears much older than his stated age, past history of stroke, severe cardiomyopathy, was transferred from [facility] to the emergency room for significant right lower extremity swelling, superficial crusty wounds involving the right dorsal foot associated with serous drainage. The patient is nonambulatory. He is anticoagulated on Eliquis and was also found to be hypotensive with a blood pressure of 90/57. He has a history of atrial fibrillation and his pulse is irregular and in the 80s. O2 sat 96%. It was also noted that his cardiac ejection percentage is 25, GFR 15, white count 5.5, hematocrit 28.3. At present, the patient has a Romero catheter as he was unable to void and produced 600 mL of urine. The right lower extremity shows chronic, subacute inflammatory changes which maxi on palpation, is nontender with serous crusty exudate involving superficial ulceration of the dorsal aspect of his right foot. The patient has a similar much smaller superficial crusted wound involving the left ankle region but without any significant edema. TREATMENT RECOMMENDATIONS AT THIS TIME: Wounds should be cleaned with Vashe wound cleanser and then covered with Hydrofera Blue Ready antimicrobial foam. Tubigrip support stockings should be utilized for the right lower extremity from the metatarsal level to just below the knee. Bilateral heel float boots for prophylactic measures are indicated. The patient should have a venous ultrasound of the right lower extremity to further evaluate his venous return. Additionally, consideration for an arterial ultrasound should be given. The patient is not a candidate for any dye studies at this time. There is no indication for antibiotic therapy as this is not cellulitis based on afebrile status, normal white count, blanching on palpation of the erythema. The patient is a DNR/DNI and a conservative approach should be maintained. The patient's nutritional status should also be augmented by Ensure and Curtis. I have discussed the case in detail with Dr. Jarquin indicating treatment recommendations and suggestions. 20 minutes was spent on this telemedicine evaluation [email or web address]
[2021-03-23] MEDS ORDERED: LIDOCAINE 1% MDV 20ML VIAL As Ordered ONE (15:45)
--- NOTE | 2021-03-23 17:08 | IPNPDOC ---
Text Note Date of Service The patient was seen on 03/23/21. NOTE Subjective: Patient is a 70-year-old male from [facility] who presented to the hospital with increased swelling in his right leg and having low blood pressures. Patient was started on Levophed peripherally as patient had initially refused a central line overnight. Patient denies having any pain although when you get close to touching the patient's leg he becomes very agitated. Patient has a history of expressive aphasia so can only answer in yes or no. Review of systems: General: Patient denies fevers HEENT: Patient denies headaches Cardiovascular: Patient denies chest pain Respiratory: Patient denies shortness of breath, cough GI: Patient denies abdominal pain, nausea, vomiting, diarrhea : Patient denies increased frequency or pain with urination Extremities: Patient answers yes to the question of increased pain in his right leg Neurological: Patient denies numbness or tingling in legs Physical exam: Vitals: See below General: Alert and oriented male patient with expressive aphasia can only answer yes or no questions who was laying in bed when I walked in the room. Patient appeared ill but did not appear to be in any acute distress. HEENT: Normocephalic, atraumatic, moist mucous membranes. Neck: No lymphadenopathy or thyromegaly Cardiac: Regular rate and rhythm, no murmurs, normal S1, normal S2 Pulm: Crackles in bilateral bases Abd: Nondistended, nontender to palpation, normal bowel sounds Ext: Massive edema with pink coloration to the patient's right leg with multiple wounds and multiple blisters that were draining serosanguineous fluid. Trace edema in the left leg Labs: See below Imaging: No new imaging has been performed Assessment/plan: 70-year-old male who presented with massive edema in his right leg and hypotension who was thought to be septic shock versus cardiogenic shock. 1. Septic shock. Patient does not appear to have cellulitis in his leg however, his chest x-ray does show that the patient does have possible pneumonia and his right lung base. Patient was receiving the septic protocol for fluids but became congested so these were stopped. Peripheral Levophed has been started. Central line was attempted to be placed in the femoral position by general surgery but this was unsuccessful. Patient adamantly refused central line placement in the internal jugular or subclavian area. PICC line was placed later in the day and we will continue with Levophed for blood pressure control. Patient will be treated with ceftriaxone and doxycycline. 2. Possible pneumonia. Patient showed atelectasis and pneumonia in right lung base. We'll continue the treatment with antibiotics as above. 3. Chronic venous stasis changes with subacute inflammation of the right lower extremity. Dr. Small of wound care has seen the patient and I appreciate his recommendations. Wound care per Dr. Small. 4. Acute kidney injury on CKD. Patient has an acute kidney injury likely secondary to acute urinary retention which has been resolved with Romero catheter as well as sepsis causing hypotension. Dr. Acevedo of nephrology has seen the patient I appreciate his help treating the patient. 5. Congestive heart failure with reduced ejection fraction. Ejection fraction of 25 to 30% with wall motion abnormalities due to ischemic cardiomyopathy. Hold Entresto and diuretics due to low blood pressure and acute kidney injury. 6. Coronary artery disease status post CABG. Continue statin and aspirin. Hold beta-isha due to hypotension. 7. Chronic atrial fibrillation. Continue amiodarone and Eliquis. 8. Chronic DVT bilaterally. IVC filter is in place. 9. History of CVA. Patient has expressive aphasia and chronic neuropathic pain. 10. Depression. Related to medical issues. DVT Prophylaxis: Eliquis Disposition: Pending clinical improvement VSMilagro, I+O VSMilagro, I+O Laboratory Tests 03/22/21 22:55 03/23/21 06:17 Vital Signs Date Time Temp Pulse Resp B/P (MAP) Pulse Ox O2 Delivery O2 Flow Rate FiO2 03/23/21 16:00 91 93/50 (64) 03/23/21 16:00 97.8 20 97 Room Air I&O- Last 24 Hours up to 6 AM 03/23/21 06:00 Intake Total 1100 ml Output Total 1560 ml Balance -460 ml NORBERTO CAI DO Mar 23, 2021 17:08
[2021-03-23] MEDS: cefTRIAXone SOD 2 GM in D5W MINI-BAG PLUS 50 ML IV SCH (17:42)
[2021-03-23] MEDS: SODIUM CHLORIDE 0.9% INJ 10 ML SYR IV SCH (18:00)
[2021-03-23] MEDS: GABAPENTIN 300 MG CAP PO SCH (21:00)
[2021-03-23] MEDS: QUEtiapine FUMARATE 50MG TAB PO SCH (21:00)
[2021-03-24] VITALS (15 sets, daily range): BP systolic 90–124; BP diastolic 54–77
[2021-03-24] MEDS ORDERED: MORPHINE 2 MG/ML 1ML VIAL (J2270) IV ONE (01:50)
[2021-03-24] MEDS: SODIUM CHLORIDE 0.9% INJ 10 ML SYR IV SCH ×2 (06:02→18:13)
[2021-03-24 06:40] LABS: BASO % 0.5 % (0.0-1.0); CALCIUM LEVEL 8.8 MG/DL (8.8-10.2); CREATININE FOR GFR 2.32 MG/DL (0.70-1.30); EOS # 0.3 10^3/uL (0.0-0.5); EOS % 4.4 % (0.0-3.0); GLOMERULAR FILTRATION RATE 29.8 (>42); HEMATOCRIT 28.2 % (42.0-52.0); HEMOGLOBIN 9.1 g/dl (13.5-17.5); LYMPH # 1.3 10^3/uL (1.5-5.0); LYMPH % 20.5 % (24.0-44.0); MEAN CORPUSCULAR HEMOGLOBIN 31.9 pg (27.0-33.0); MEAN CORPUSCULAR HGB CONC 32.3 g/dl (32.0-36.5); MEAN CORPUSCULAR VOLUME 98.9 fl (80.0-96.0); MONO # 0.6 10^3/uL (0.0-0.8); MONO % 9.1 % (2.0-8.0); NEUTROPHILS # 3.9 10^3/uL (1.5-8.5); NEUTROPHILS % 63.5 % (36.0-66.0); PLATELET COUNT, AUTOMATED 268 10^3/uL (150-450); POTASSIUM SERUM 4.1 MEQ/L (3.5-5.1); RED BLOOD COUNT 2.85 10^6/uL (4.30-6.10); WHITE BLOOD COUNT 6.1 10^3/uL (4.0-10.0)
[2021-03-24] MEDS: PANTOPRAZOLE 40MG TAB (PROTONIX) PO SCH (09:04)
[2021-03-24] MEDS: APIXABAN 5 MG TAB (ELIQUIS) PO SCH ×2 (09:04→20:55)
[2021-03-24] MEDS: ATORVASTATIN 20 MG TAB PO SCH (09:04)
[2021-03-24] MEDS: DOXYCYCLINE HYCLATE 100 MG in D5W MINI-BAG PLUS 100 ML IV SCH ×2 (09:04→20:54)
[2021-03-24] MEDS: DULoxetine 20 MG CAP (CYMBALTA) PO SCH (09:04)
[2021-03-24] MEDS: PRAMIPEXOLE 1 MG TAB PO SCH ×2 (09:04→20:54)
[2021-03-24] MEDS: ASPIRIN 81MG ENTERIC TABLET PO SCH (09:04)
[2021-03-24] MEDS: ACETAMINOPHEN TAB 650MG DOSE (2X325MG) PO PRN (11:07)
[2021-03-24] MEDS: cefTRIAXone SOD 2 GM in D5W MINI-BAG PLUS 50 ML IV SCH (15:30)
--- NOTE | 2021-03-24 16:24 | IPNPDOC ---
Text Note Date of Service The patient was seen on 03/24/21. NOTE Subjective: Patient is a 70-year-old male from [facility] who presented to the hospital increased on right leg and was found to have low blood pressures. Patient had a PICC line placed yesterday and was able to be weaned off Levophed overnight. Patient's blood pressures are better and have maintained throughout the day without any vasopressor therapy. Patient is feeling much better and was more combative with staff earlier today try to get up. Patient did work a physical therapy. Patient has a history of expressive aphasia and can only answer yes or no. Patient is otherwise improving and says no when asked if his leg hurts as bad as it did yesterday. Review of systems: General: Patient denies fevers HEENT: Patient denies headaches Cardiovascular: Patient denies chest pain Respiratory: Patient denies shortness of breath, cough GI: Patient denies abdominal pain, nausea, vomiting, diarrhea : Patient denies increased frequency or pain with urination Extremities: Patient answers yes to if his pain is improved in his right leg Neurological: Patient denies numbness or tingling in legs Physical exam: Vitals: See below General: Alert and oriented male patient with expressive aphasia can only answer yes or no questions was laying in bed when I walked in the room. Patient did not appear to be in any acute distress. HEENT: Normocephalic, atraumatic, moist mucous membranes. Neck: No lymphadenopathy or thyromegaly Cardiac: Regular rate and rhythm, no murmurs, normal S1, normal S2 Pulm: Clear to auscultation bilaterally. No wheezes, rhonchi, rales Abd: Nondistended, nontender to palpation, normal bowel sounds Ext: Patient had Tubigrip placed over the right leg with multiple foam dressings that were placed over the wounds that will be changed every 3 days. Leg did appear smaller in circumference than it did yesterday. Labs: See below Imaging: No new imaging is been performed Assessment/plan: 70-year-old male presented with massive edema in the right leg and hypotension was thought to be septic shock versus cardiogenic shock. 1. Septic shock requiring vasopressor therapy. Patient was able to be weaned off his with pressor therapy today. Patient's blood pressures have maintained throughout the day off vasopressor therapy. Patient is doing better. We will continue antibiotics with ceftriaxone and doxycycline for possible pneumonia. Patient has central venous access with a PICC line. Patient will be transferred to the medical surgical floor at this time. 2. Possible pneumonia. Patient's x-ray showed atelectasis versus pneumonia in the right lung base. We will continue treatment as above. 3. Chronic venous stasis changes with subacute inflammation of the right lower extremity. Dr. Small of wound care seen the patient I appreciate his recommendations. We will continue wound care per Dr. Small. 4. Acute kidney injury on CKD. This is improving as the patient's creatinine has improved. Now the patient has adequate blood pressure and a Romero catheter placed, the patient's creatinine continues to improve. 5. Congestive heart failure with reduced ejection fraction. Ejection fraction of 25 to 30% with wall motion abnormalities due to ischemic cardiomyopathy. Entresto and diuretics are being held due to low blood pressure and acute kidney injury. These can be restarted in the next day or so as the patient improves. 6. Coronary artery disease status post CABG. Continue statin and aspirin. Hold beta-isha due to hypotension. This can be restarted in the next day or so as the patient appears. 7. Chronic atrial fibrillation. Continue medications. 8. Chronic DVT bilaterally. IVC filter in place. 9. History of CVA. Patient has expressive aphasia and chronic neuropathic pain. 10. Depression. Related to medical issues. DVT Prophylaxis: Eliquis Disposition: Pending clinical improvement VS,Milagro, I+O VSMilagro, I+O Laboratory Tests 03/24/21 05:50 Vital Signs Date Time Temp Pulse Resp B/P (MAP) Pulse Ox O2 Delivery O2 Flow Rate FiO2 03/24/21 15:32 91 17 96/54 (68) 96 Room Air 03/24/21 12:00 98.4 I&O- Last 24 Hours up to 6 AM 03/24/21 06:00 Intake Total 1732.9 ml Output Total 2115 ml Balance -382.1 ml NORBERTO CAI DO Mar 24, 2021 16:24
--- NOTE | 2021-03-24 18:51 | REP ---
PROCEDURE NAME: PICC LINE INSERTION W/SITERITE CLINICAL INFORMATION: failed attempt at central line. COMPARISON: None. PROCEDURE DESCRIPTION: The procedure was performed by MARLA Das, under the direct supervision of Dr. Washington. The risks and benefits of the procedure were explained to the patient and an informed consent was obtained both verbally and written. Directly prior to the start of the procedure a formal time-out was completed in the procedure room. The left basilic vein was localized using ultrasound guidance. The skin was prepped and draped in sterile fashion. Three mL of 1% lidocaine 10 mg/mL was used as a local anesthetic. Using ultrasound guidance the left basilic vein was cannulated, and a 0.018 guidewire was inserted and advanced to the subclavian vein using fluoroscopic guidance. The needle was removed and a 6 Slovenian dilator and peel-away sheath was inserted over the guidewire. A 6 Slovenian dual lumen catheter was cut to a length of 27 cm. The dilator was removed and the catheter was inserted over the guidewire with the tip ending in the subclavian vein. The peel-away sheath was removed and the catheter was flushed with heparinized saline as per hospital protocol. The catheter was affixed to the skin and a sterile dressing was applied. The patient tolerated the procedure well and there were no immediate complications. CONCLUSION: PICC line insertion into the left basilic vein. 2.5 minutes of fluoroscopy time was utilized for this procedure. Some fluoroscopic images are performed with last image hold technology. These images require no additional radiation. <Electronically signed by Cris Holguin > 03/24/21 0755 <Electronically signed by Pedro Washington > 03/24/21 [id number]
--- NOTE | 2021-03-24 19:09 | IPN ---
NEPHROLOGY PROGRESS NOTE DATE: 03/24/2021 SUBJECTIVE: Mr. Rao has been seen this morning at his bedside. He has been quite agitated and hitting the nurses. He wants to get up and walk, however has been weak and has significant swelling and cellulitis on his right leg. He was hypotensive and on Levophed up until just a couple of hours ago. He has been making a good amount of urine since the Romero catheter was placed. There is no dyspnea, chest pain, fever or chills. He has not required any supplemental oxygen. OBJECTIVE: PHYSICAL EXAMINATION: VITAL SIGNS: Temperature is 98.4 degrees Fahrenheit, heart rate 110 per minute, respiratory rate 19 per minute. Blood pressure as low at 96/54 mm of mercury and as high as 122/59 mm of mercury. HEENT: His head is atraumatic. NECK: Supple and JVD is not abnormally elevated. HEART: Sounds are tachycardic. LUNGS: Clear to auscultation. ABDOMEN: Soft and nontender and bowel sounds are normal. EXTREMITIES: Without any cyanosis or clubbing. He has no edema on the left leg. Right leg is wrapped in a dressing and is quite swollen. He has cellulitis on the right leg also. NEUROLOGICAL: He is aphasic but able to communicate with his hands and nodding of his head. LABORATORY STUDIES: Today's labs show a WBC count of 6.1, hemoglobin 9.1 and hematocrit 28.2. Sodium 142, potassium 4.1, BUN 82 and creatinine down to 2.32. Glucose 117 and calcium 8.8. PROBLEMS: 1. Acute renal failure superimposed on chronic kidney disease most likely it was related to obstructive uropathy and cellulitis with hypotension. His blood pressure has improved and now he is off Levophed. He had a Romero catheter placed and 700 mL of residual urine was noticed in the bladder. Now he has good urine output and kidney function is improving nicely. Not on any IV fluids. I would recommend to continue with oral intake as tolerated. 2. Cellulitis he has severe cellulitis on his right lower extremity and remains on Doxycycline and Ceftriaxone. 3. Anemia his anemia is stable and does not need any urgent intervention. 4. Hypotension - blood pressure has improved and he is not on Levophed anymore. He can probably be transferred to the Floor after adequate observation.
[2021-03-24] MEDS: GABAPENTIN 300 MG CAP PO SCH (20:54)
[2021-03-24] MEDS: QUEtiapine FUMARATE 50MG TAB PO SCH (20:54)
[2021-03-24] MEDS: SODIUM CHLORIDE 0.9% INJ 10 ML SYR IV PRN (23:00)
[2021-03-25] MEDS: ACETAMINOPHEN TAB 650MG DOSE (2X325MG) PO PRN ×3 (04:01→14:41)
[2021-03-25 06:00] VITALS: BP 138/69
[2021-03-25] MEDS: SODIUM CHLORIDE 0.9% INJ 10 ML SYR IV SCH ×2 (06:33→18:20)
[2021-03-25] MEDS: ATORVASTATIN 20 MG TAB PO SCH (08:46)
[2021-03-25] MEDS: DOXYCYCLINE HYCLATE 100 MG in D5W MINI-BAG PLUS 100 ML IV SCH (08:46)
[2021-03-25] MEDS: PANTOPRAZOLE 40MG TAB (PROTONIX) PO SCH (08:46)
[2021-03-25] MEDS: SODIUM CHLORIDE 0.9% INJ 10 ML SYR IV PRN (08:46)
[2021-03-25] MEDS: APIXABAN 5 MG TAB (ELIQUIS) PO SCH ×2 (08:46→20:25)
[2021-03-25] MEDS: PRAMIPEXOLE 1 MG TAB PO SCH ×2 (08:47→20:25)
[2021-03-25] MEDS: ASPIRIN 81MG ENTERIC TABLET PO SCH (08:47)
[2021-03-25] MEDS: DULoxetine 20 MG CAP (CYMBALTA) PO SCH (08:47)
--- NOTE | 2021-03-25 11:50 | REP ---
INDICATION: left knee pain COMPARISON: None TECHNIQUE: Four views absent the sunrise view FINDINGS: The compartments are symmetric and relatively well maintained. There is no acute fracture, dislocation, or subluxation. IMPRESSION: Within normal limits <Electronically signed by David Maldonado > 03/25/21 1141
[2021-03-25 12:53] LABS: BASO % 0.6 % (0.0-1.0); EOS # 0.2 10^3/uL (0.0-0.5); EOS % 3.9 % (0.0-3.0); LYMPH % 15.5 % (24.0-44.0); MEAN CORPUSCULAR HEMOGLOBIN 34.5 pg (27.0-33.0); MEAN CORPUSCULAR HGB CONC 33.3 g/dl (32.0-36.5); MEAN CORPUSCULAR VOLUME 103.4 fl (80.0-96.0); MONO # 0.6 10^3/uL (0.0-0.8); MONO % 10.2 % (2.0-8.0); NEUTROPHILS # 4.2 10^3/uL (1.5-8.5); NEUTROPHILS % 68.2 % (36.0-66.0); PLATELET COUNT, AUTOMATED 280 10^3/uL (150-450); RED BLOOD COUNT 2.61 10^6/uL (4.30-6.10); WHITE BLOOD COUNT 6.2 10^3/uL (4.0-10.0)
[2021-03-25 13:26] LABS: CALCIUM LEVEL 9.1 MG/DL (8.8-10.2); CREATININE FOR GFR 1.51 MG/DL (0.70-1.30); GLOMERULAR FILTRATION RATE 48.9 (>42); POTASSIUM SERUM 4.8 MEQ/L (3.5-5.1)
[2021-03-25 14:00] VITALS: BP 119/73
[2021-03-25] MEDS: CEFDINIR 300 MG CAP (OMNICEF) PO SCH ×2 (14:40→20:25)
--- NOTE | 2021-03-25 18:03 | IPN ---
PROGRESS NOTE DATE: 03/25/2021 Mr. Rao is seen this morning on his bedside. He remains unhappy and somewhat agitated. Yesterday he was hitting the nursing staff. His blood pressure has remained stable since he came off Levophed. He has gross hematuria with pinkish urine in the Romero catheter. PHYSICAL EXAMINATION: Temperature 98.8 degrees Fahrenheit, heart rate 92 per minute, respiratory rate 18 per minute, blood pressure 138/69 mmHg, and oxygen saturation 96% on room air. Head is atraumatic. Neck supple and jugular venous distention (JVD) mildly elevated. Heart sounds are irregular and lungs clear to auscultation. Abdomen soft and nontender, and bowel sounds are normal. Extremities without any cyanosis or clubbing. Right lower extremity cellulitis is improving, and edema has also improved slightly. Neurologically he is aphasiac with right-sided hemiplegia. Patient did not have any labs done today. PROBLEMS: 1. Acute renal failure superimposed on chronic kidney disease. Kidney function has been improving since admission when Romero catheter was placed. He still has adequate urine output. His renal profile should be checked again tomorrow. 2. Congestive heart failure. He does have slight decompensated volume status. He has good urine output, and I will hold off on diuretic use until his labs are repeated. 3. Right lower extremity cellulitis. His cellulitis is also improving, and he has been switched to oral antibiotic with doxycycline now. 4. Anemia. His anemia has been stable, and labs will need to be repeated again tomorrow. 5. Urinary retention. Patient had significant residual urine when Romero catheter was placed. I feel that he should remain with Romero catheter for intermediate card tender.
--- NOTE | 2021-03-25 18:30 | IPNPDOC ---
Text Note Date of Service The patient was seen on 03/25/21. NOTE Subjective: Patient is a 70-year-old male from [facility] presented to hospital increased right leg swelling and was found to have low blood pressures. Patient had a PICC line placed 2 days ago and was able to be weaned off Levophed 2 days ago. Patient is doing better. Patient's only complaint today is left knee pain. Patient is still having some pink urine in his Romero bag. Review of systems: General: Patient denies fevers HEENT: Patient denies headaches Cardiovascular: Patient denies chest pain Respiratory: Patient denies shortness of breath, cough GI: Patient denies abdominal pain, nausea, vomiting, diarrhea Physical exam: Vitals: See below General: Alert and oriented male patient with expressive aphasia can only answer yes or no questions was laying in bed when I walked in the room. Patient not appear to be in any acute distress. HEENT: Normocephalic, atraumatic, moist mucous membranes. Neck: No lymphadenopathy or thyromegaly Cardiac: Regular rate and rhythm, no murmurs, normal S1, normal S2 Pulm: Clear to auscultation bilaterally. No wheezes, rhonchi, rales Abd: Nondistended, nontender to palpation, normal bowel sounds Ext: Patient had OPTi foam dressings placed over multiple areas of his right leg which is clean dry and intact. Leg appeared smaller in circumference than it has over the past few days. The leg is still very edematous. Labs: See below Imaging: X-ray of the left knee was performed on 03/25/2021 and was reported to show within normal limits. Assessment/plan: 70-year-old male presented with massive edema in the right leg and hypotension who was thought to be in septic shock versus cardiogenic shock 1. Septic shock requiring vasopressor therapy. Patient has been able to be weaned off vasopressor therapy. Patient's antibiotics were switched to cefdinir and doxycycline for possible pneumonia. Patient has central venous access with PICC line. Patient was transferred to the medical surgical floor yesterday has been doing well so far. We will continue with antibiotics as above. 2. Possible pneumonia. X-ray showed atelectasis versus pneumonia in the right lung base. Continue treatment as above. 3. Chronic venous stasis changes with subacute inflammation of the right lower extremity. Dr. Small of wound care seen the patient I appreciate his recommendations. We will continue wound care per Dr. Small. 4. Acute kidney injury on CKD. Patient's creatinine continues to improve. Patient has a Romero catheter placed due to urinary retention. This should remain in long-term. 5. Congestive heart failure with reduced ejection fraction. Ejection fraction 25 to 30% with wall motion abnormalities due to ischemic cardiomyopathy. Entresto and diuretics can be restarted now that kidney function is improving and the patient's blood pressures have been within normal limits. 6. Coronary disease status post CABG. Continue statin and aspirin. Beta-isha was held due to hypotension. This can be restarted. 7. Chronic atrial fibrillation. Will continue home medications. If the patient continues to have hematuria, Eliquis may be held. 8. Chronic DVT bilateral. IVC filter in place. 9. History of CVA. Patient has impressive aphasia and chronic neuropathic pain. 10. Depression. Related medical issues. DVT Prophylaxis: Eliquis Disposition: Pending clinical improvement, possible discharge tomorrow VSMilagro, I+O VS, Milagro, I+O Laboratory Tests 03/25/21 12:20 Vital Signs Date Time Temp Pulse Resp B/P (MAP) Pulse Ox O2 Delivery O2 Flow Rate FiO2 03/25/21 14:00 98.1 103 18 119/73 (88) 95 Room Air I&O- Last 24 Hours up to 6 AM 03/25/21 06:00 Intake Total 1036 ml Output Total 1725 ml Balance -689 ml NORBERTO CAI DO Mar 25, 2021 18:30
[2021-03-25] MEDS: QUEtiapine FUMARATE 50MG TAB PO SCH (20:25)
[2021-03-25] MEDS: GABAPENTIN 300 MG CAP PO SCH (20:25)
[2021-03-25] MEDS ORDERED: DOXYCYCLINE HYCLATE 100MG TABLET PO SCH (21:00)
[2021-03-25 22:00] VITALS: BP 119/75
[2021-03-26 05:58] VITALS: BP 150/80
[2021-03-26] MEDS: SODIUM CHLORIDE 0.9% INJ 10 ML SYR IV SCH (06:15)
[2021-03-26] MEDS ORDERED: FUROSEMIDE 100MG/10ML VIAL (J1940) As Ordered ONE (08:13)
[2021-03-26 08:24] VITALS: O2SAT 89
[2021-03-26] MEDS ORDERED: FUROSEMIDE 100MG/10ML VIAL (J1940) IV ONE (08:30)
--- NOTE | 2021-03-26 08:33 | REP ---
INDICATION: hypoxia, increased work of breathing. COMPARISON: 03/22/2021. The TECHNIQUE: Single portable AP view of the chest was performed. FINDINGS: There are new diffuse bilateral infiltrates. There is significant elevation of the right hemidiaphragm. The heart is not enlarged. The mediastinal silhouette is unchanged. A right single lead pacemaker is again noted. There are sternal wires present. IMPRESSION: Acute diffuse bilateral infiltrates. <Electronically signed by Pedro Washington > 03/26/21 2239
[2021-03-26] MEDS ORDERED: CARVedilol 6.25 MG TAB PO SCH (09:00)
[2021-03-26] MEDS ORDERED: ENTRESTO 24-26MG TABLET (SACUBITRIL/VALSARTAN) PO SCH (09:00)
[2021-03-26] MEDS ORDERED: TORSEMIDE 20 MG TAB PO SCH (09:00)
[2021-03-26 09:14] LABS: BASO # 0.1 10^3/uL (0.0-0.2); BASO % 0.5 % (0.0-1.0); EOS # 0.1 10^3/uL (0.0-0.5); EOS % 0.7 % (0.0-3.0); HEMATOCRIT 32.7 % (42.0-52.0); HEMOGLOBIN 10.2 g/dl (13.5-17.5); LYMPH # 3.1 10^3/uL (1.5-5.0); LYMPH % 20.5 % (24.0-44.0); MEAN CORPUSCULAR HEMOGLOBIN 34.5 pg (27.0-33.0); MEAN CORPUSCULAR HGB CONC 31.2 g/dl (32.0-36.5); MEAN CORPUSCULAR VOLUME 110.5 fl (80.0-96.0); MONO # 0.7 10^3/uL (0.0-0.8); MONO % 4.4 % (2.0-8.0); NEUTROPHILS # 10.8 10^3/uL (1.5-8.5); NEUTROPHILS % 71.2 % (36.0-66.0); PLATELET COUNT, AUTOMATED 367 10^3/uL (150-450); RED BLOOD COUNT 2.96 10^6/uL (4.30-6.10); WHITE BLOOD COUNT 15.1 10^3/uL (4.0-10.0)
[2021-03-26 09:25] LABS: INR 2.11; PROTHROMBIN TIME 24.1 SECONDS (12.7-14.5)
[2021-03-26] MEDS ORDERED: FLEET ENEMA PR PRN (09:35)
[2021-03-26] MEDS ORDERED: ONDANSETRON 4 MG ORAL DISINTEGRATING TAB PO PRN (09:35)
[2021-03-26] MEDS ORDERED: LORazepam 1 MG TAB PO PRN (09:35)
[2021-03-26] MEDS ORDERED: MORPHINE 10MG/0.5ML ORAL CONCENTRATE SOLUTION U/D SL PRN (09:35)
[2021-03-26] MEDS ORDERED: ONDANSETRON 4MG/2ML VIAL IV PRN (09:35)
[2021-03-26] MEDS ORDERED: SCOPOLAMINE 1MG TRANSDERMAL PATCH TOP PRN (09:35)
[2021-03-26] MEDS ORDERED: ACETAMINOPHEN 650 MG SUPP PR PRN (09:35)
[2021-03-26] MEDS ORDERED: ATROPINE SULFATE 1% OP SOLN 2 ML BTL SL PRN (09:35)
[2021-03-26] MEDS ORDERED: LORazepam 2 MG/ML VIAL IV PRN (09:35)
[2021-03-26] MEDS ORDERED: MORPHINE 2 MG/ML 1ML VIAL (J2270) IV PRN (09:35)
[2021-03-26] MEDS ORDERED: BISACODYL 10 MG SUPP PR PRN (09:35)
[2021-03-26] MEDS ORDERED: HYOSCYAMINE SULFATE 0.125 MG SUBL TABLET PO PRN (09:35)
[2021-03-26] MEDS ORDERED: MORPHINE 2 MG/ML 1ML VIAL (J2270) As Ordered ONE (09:39)
--- NOTE | 2021-03-26 09:45 | REP ---
INDICATION: post intubation. COMPARISON: 03/26/2021 8:19 a.m. TECHNIQUE: Single portable AP view of the chest was performed. FINDINGS: There are diffuse bilateral infiltrates again noted, which may be slightly increased compared to the prior study. There is placement of an endotracheal tube. The john is not well visualized due to multiple overlying wires. The tip of the endotracheal tube is just below the level of the clavicles is likely in good position. I would estimate that it is 2-4 cm above the john. The remainder of the study is unchanged. IMPRESSION: Diffuse bilateral infiltrates.The john is not well visualized due to multiple overlying wires. The tip of the endotracheal tube is just below the level of the clavicles is likely in good position. I would estimate that it is 2-4 cm above the john. <Electronically signed by Pedro Washington > 03/26/21 0941
[2021-03-26 10:13] LABS: ALBUMIN 2.4 GM/DL (3.2-5.2); BILIRUBIN,TOTAL 0.7 MG/DL (0.2-1.0); CALCIUM LEVEL 9.4 MG/DL (8.8-10.2); CK-MB VALUE MASS 1.1 NG/ML (<3.6); CREATININE FOR GFR 2.15 MG/DL (0.70-1.30); GLOMERULAR FILTRATION RATE 32.5 (>42); MAGNESIUM LEVEL 2.1 MG/DL (1.8-2.4); MB/CK RELATIVE INDEX 1.24 (< OR =4); POTASSIUM SERUM 6.1 MEQ/L (3.5-5.1); TOTAL PROTEIN 7.4 GM/DL (6.4-8.2); TROPONIN I 0.04 NG/ML (< 0.10)
[2021-03-26] MEDS ORDERED: EPINEPHrine 1MG/10ML SYRINGE 1.5IN ONE (10:24)
[2021-03-26] MEDS ORDERED: AMIODARONE 150MG/3ML INJ (J0282) ONE (10:24)
[2021-03-26] MEDS ORDERED: SODIUM BICARBONATE 8.4% INJ 50MEQ 50 ML VIAL ONE (10:24)
--- NOTE | 2021-03-26 18:31 | DS.PDOC ---
Discharge Summary General Date of Admission Mar 22, 2021 at 18:50 Date of Discharge 03/26/2021 Primary Care Physician: Jr Rowan Collins Attending Physician: NORBERTO CAI DO Specialist/Consultants Involve: Steve Small MD Specialist/Consultants Involve Pedro Barnes DO, general surgery,Judy Acevedo MD nephrology Discharge Summary PROCEDURES PERFORMED DURING STAY: None. ADMITTING DIAGNOSES: 1. Shock, septic shock versus cardiogenic shock. 2. Right leg chronic venous stasis changes 3. Possible right lower lobe pneumonia 4. DIEGO on CKD 5. Systolic CHF 6. Coronary artery disease 7. Chronic atrial fibrillation 8. Chronic DVT bilaterally 9. History of CVA 10. Depression DISCHARGE DIAGNOSES: 1. Septic shock requiring vasopressor therapy. 2. Pneumonia 3. Lactic acidosis secondary to cardiac arrest 4. Chronic venous stasis changes 5. Acute kidney injury on chronic kidney disease 6. Chronic congestive heart failure with reduced ejection fraction 7. Ventricular tachycardia 8. Chronic atrial fibrillation 9. Chronic chronic DVT bilaterally 10. History of hemorrhagic CVA with expressive aphasia 11. Depression COMPLICATIONS/CHIEF COMPLAINT: Cellulitis Of Leg,Pneumonia. 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 fib, coronary artery disease status post CABG, systolic congestive heart failure and ischemic cardiomyopathy with an ejection fraction of 25%, seizure disorder who was sent from the nursing with massive swelling of his right leg with discoloration of the leg. Patient was initially sent over for an arterial ultrasound but in the radiology department he had a blood pressure of 70/40 so he sent to the emergency department. He was also noted to be hypotensive in the group home. Patient reported that the swelling was really bad for the last 5 days with water coming out. He complains of pain in the right leg 5/10 in intensity but cannot characterize the pain. Patient was admitted for septic shock versus cardiogenic shock, DIEGO on CKD, right leg cellulitis and pneumonia. HOSPITAL COURSE: Patient initially required vasopressor therapy which was initially done peripherally as patient had refused central line placement. A femoral line was attempted to be placed however, this was not unable to be successfully placed. A PICC line was then inserted later on in the day on the first day of the patient's hospitalization. Patient remained on vasopressor therapy throughout the first 24 hours of his hospitalization. Patient received ceftriaxone and doxycycline. Patient had a wound care consultation placed with wound care instructions given by Dr. Small. Patient continued on ceftriaxone and doxycycline for the treatment of his right lower lobe pneumonia. Patient was able to be weaned off vasopressor therapy on the second day of hospitalization and was transferred out of the intensive care unit. Patient continued to improve however, patient did continue to have hematuria. Patient initially had pink-tinged hematuria throughout most of his hospitalization after a catheter had to be placed due to acute urinary retention. This was initially thought to be secondary to a traumatic catheterization. Bleeding continued to get worse and on 03/26/2021 Eliquis was going to be stopped in order to help stop the bleeding. Patient's creatinine did improve once the patient's blood pressure returned to normal and the patient had Romero catheter placed. On 03/26/2021 I arrived to the floor and was immediately called to the patient's bedside. Patient was tachypneic and tachycardic as well as hypoxic. Audible rhonchi and crackles were heard from the patient's bedside. Patient was examined and was thought to be in acute fluid overload. Initially patient was given 60 mg of IV Lasix however, patient kept pointing to his catheter area. The catheter was attempted to be flushed but appeared to be blocked with a clot. I did speak with urology who recommended changing the catheter from a 16 Cypriot to a 20 Cypriot coud catheter. Nursing staff went to grab the urology cart as there was no 20 Cypriot coud catheter is readily available. In the meantime, patient was placed on a Venturi mask first and then a nonrebreather mask as he was having difficulty maintaining his oxygen saturations. Patient remained very tachycardic with rates in the 150-170 range. Patient continued to have tachycardia despite improvement his oxygen saturation. Patient kept pointing to his abdomen and then while I was in the room patient became very purple in the face and became unresponsive. A pulse was checked and the patient did not have a pulse and CPR was initiated. Max cart was called at this time. Initially after 2 minutes of CPR, ROSC was achieved. EKG was performed and showed a wide- complex tachycardia with a rate of 177. Patient lost his pulse again and CPR was again initiated. Epinephrine was given at this time. Patient again achieved ROSC and the decision was made to intubate the patient due to his respiratory distress. Patient was intubated by anesthesia and patient was continued to be oxygenated with bag valve mask. Patient again lost his pulse and CPR was again initiated for the third time and ROSC was achieved again. Patient had a wide-complex tachycardia again on the monitor and initially a 100 J synchronized cardioversion was attempted. This was unsuccessful. 150 mg of IV amiodarone was given to the patient and this did resolve the patient's wide- complex tachycardia. Patient was then transferred to the intensive care unit. I did speak with intensive care who initially gave ventilator settings however, I did speak initially with a former caregiver the patient who gave me the number to the patient's sister, Marie Henderson who has been the primary medical decision maker for the patient over the past many years. I spoke with Marie and gave her an update in Marie stated that she wanted the patient to be made comfortable rather than continuing with life-prolonging care as the patient has been through a lot of medical conditions and with all of his comorbidities including heart failure with reduced ejection fraction, hemorrhagic stroke with expressive aphasia, the decision was made to make the patient comfort measures only. Patient was made comfort measures only and was given a dose of IV morphine prior to palliative extubation. Patient was palliatively extubated at 955 and patient at 1003 this morning. Patient's [place] [facility] [place] Patient's sister was updated. Patient had laboratory studies drawn after a few rounds of CPR which showed a lactic acidosis of 17.4 which is most likely secondary to poor perfusion due to cardiac arrest. DISCHARGE MEDICATIONS: Please see below. ALLERGIES: Please see below. PHYSICAL EXAMINATION ON DISCHARGE: VITAL SIGNS: Please see below. General: Initially alert and oriented male who was breathing very quickly with audible rhonchorous sounds from the bedside who appeared to be in moderate to severe distress. Patient ended up becoming unresponsive as above. HEENT: Normocephalic, atraumatic, moist mucous membranes. Neck: No lymphadenopathy or thyromegaly Cardiac: Tachycardic rate in the 150-170 range, difficult to discern murmurs at this heart rate Pulm: Rhonchorous breath sounds with crackles heard throughout the lung mccarthy Abd: Tenderness to palpation over the suprapubic area Ext: Patient had OPTi foam dressings placed over multiple areas of his right leg which is clean dry and intact. Leg appeared smaller in circumference than it has over the past few days. The leg is still very edematous. LABORATORY DATA: Please see below. IMAGING: Chest x-ray performed on 03/22/2021 was reported to show atelectasis or pneumonia in the right base. Status post CABG surgery and pacemaker placement. Congestive heart failure. CT the abdomen pelvis performed without contrast on 03/22/2021 was reported to show no evidence of obstructive uropathy. No evidence of abnormal urinary bladder distention or passive hydronephrosis. Severely limited exam. CT of the right foot without contrast on 03/22/2021 was reported to show marked subcutaneous soft tissue edema without evidence of osseous destruction or a noncontrast CT evidence of localized fluid collection. CT of the right tibia and fibula without contrast performed on 03/22/2021 was reported to show dermal and subcutaneous edema suggesting cellulitis. On this limited noncontrast exam, I do not see obvious evidence of focal fluid collection. No osseous destruction. X-ray of the left knee performed on 03/25/2021 was reported to show within normal limits. Chest x-ray performed on 03/26/2021 was reported to show acute diffuse bilateral infiltrates. Chest x-ray performed on 03/26/2021 was reported to show diffuse bilateral infiltrates. The john is not well visualized due to multiple overlying wires. The tip of the endotracheal tube is just below the level of the clavicles is likely in good position. I would estimate that it is 2 to 4 cm above the john. PROGNOSIS: DISPOSITION: 20 . DISCHARGE CONDITION: . TIME SPENT ON DISCHARGE: 95 minutes. Vital Signs/I&Os Vital Signs Date Time Temp Pulse Resp B/P (MAP) Pulse Ox O2 Delivery O2 Flow Rate FiO2 03/26/21 08:24 89 Venturi Mask 15.0 50 03/26/21 08:14 157 52 03/26/21 05:58 98.2 150/80 (103) I&O- Last 24 Hours up to 6 AM 03/26/21 06:00 Intake Total 600 ml Output Total 1300 ml Balance -700 ml Laboratory Data Labs 24H Laboratory Tests 2 03/26/21 08:45: Bedside Glucose (Misc Panel) 163H 03/26/21 08:58: Immature Granulocyte % (Auto) 2.7, Neutrophils (%) (Auto) 71.2H, Lymphocytes (%) (Auto) 20.5L, Monocytes (%) (Auto) 4.4, Eosinophils (%) (Auto) 0.7, Basophils (%) (Auto) 0.5, Neutrophils # (Auto) 10.8H, Lymphocytes # (Auto) 3.1, Monocytes # (Auto) 0.7, Eosinophils # (Auto) 0.1, Basophils # (Auto) 0.1, Nucleated Red Blood Cells % (auto) 0.0, Prothrombin Time 24.1H, Prothromb Time International Ratio 2.11, Anion Gap 23H, Glomerular Filtration Rate 32.5L, Lactic Acid Level 17.4*H, Calcium Level 9.4, Magnesium Level 2.1, Total Bilirubin 0.7, Aspartate Amino Transf (AST/SGOT) 21, Alanine Aminotransferase (ALT/SGPT) 16, Alkaline Phosphatase 68, Total Creatine Kinase 89, Creatine Kinase MB 1.1, Creatine Kinase MB Relative Index 1.24, Troponin I 0.04, Total Protein 7.4, Albumin 2.4L, Albumin/Globulin Ratio 0.5 CBC/BMP Laboratory Tests 03/26/21 08:58 FSBS Laboratory Tests Test 03/26/21 08:45 Range/Units Bedside Glucose (Misc Panel) 163 83-110 MG/DL Microbiology Microbiology 03/22/21 Urine Culture - Final, Complete 03/22/21 Blood Culture - Preliminary, Resulted No Growth after 72 hours. All specime... 03/22/21 Blood Culture - Preliminary, Resulted No Growth after 72 hours. All specime... Discharge Medications Scheduled Apixaban (Eliquis) 5 Mg Tablet, 5 MG PO BID, (Reported) Aspirin (Aspirin EC) 81 Mg Tablet.dr, 81 MG PO DAILY, (Reported) Atorvastatin Calcium (Atorvastatin Calcium) 20 Mg Tablet, 20 MG PO DAILY, (Reported) Carvedilol (Carvedilol) 6.25 Mg Tablet, 6.25 MG PO BID, (Reported) Duloxetine Hcl (Duloxetine HCl) 20 Mg Capsule.dr, 40 MG PO DAILY, (Reported) Gabapentin (Gabapentin) 600 Mg Tablet, 600 MG PO Q12H, (Reported) 0800, 2000 Pantoprazole Sodium (Pantoprazole Sodium) 40 Mg Tablet.dr, 40 MG PO DAILY, (Reported) Pramipexole Di-HCl (Pramipexole Dihydrochloride) 1 Mg Tablet, 1 MG PO BID, (Reported) Quetiapine Fumarate (Quetiapine Fumarate) 50 Mg Tablet, 50 MG PO QHS, (Reported) Ramelteon (Rozerem) 8 Mg Tablet, 8 MG PO QHS, (Reported) Sacubitril/Valsartan (Entresto 24 mg-26 mg Tablet) 1 Each Tablet, 1 TAB PO BID, (Reported) Sennosides (Senna) 8.6 Mg Tablet, 2 TAB PO DAILY, (Reported) Torsemide (Torsemide) 20 Mg Tablet, 80 MG PO DAILY, (Reported) Scheduled PRN Acetaminophen (Tylenol) 325 Mg Tablet, 650 MG PO Q4H PRN for MILD PAIN or TEMP > 100.4, (Reported) Bisacodyl (Dulcolax) 10 Mg Supp.rect, 10 MG PA DAILY PRN for CONSTIPATION, (Reported) Magnesium Hydroxide (Milk of Magnesia) 400 Mg/5 Ml Oral.susp, 30 ML PO DAILY PRN for CONSTIPATION, (Reported) Sodium Phosphate,[place]-Dibasic (Fleet Enema) 133 Ml Enema, 1 TRELL PA DAILY PRN for CONSTIPATION, (Reported) Allergies Coded Allergies: bupropion (Verified Allergy, Unknown, 07/10/19) divalproex sodium (Verified Allergy, Unknown, 07/10/19) paroxetine (Verified Allergy, Unknown, 07/10/19) simvastatin (Verified Allergy, Unknown, 07/10/19) NORBERTO CAI DO Mar 26, 2021 18:31
--- NOTE | 2021-03-27 18:10 | ECGEPIP ---
[facility] Test Date: 2021-03-26 Pat Name: ROBERTO GIL Department: Room: [place] [address] Gender: Male Faculty Research Assistant: AMAN : 1950 Requested By: NORBERTO CAI Order Number: [id number] Reading MD: Ezra Wilkinson Measurements Intervals [place] Rate: 184 P: ND: QRS: -75 QRSD: 150 T: 106 QT: 272 QTc: 476 Interpretive Statements Critical Test Result: High HR , Arrhythmia Poor data quality, interpretation may be adversely affected SUPRAVENTRICULAR TACHYCARDIA Left axis deviation Right bundle branch block Inferior infarct , age undetermined T wave abnormality, consider lateral ischemia Compared to prior tracings(5) in the system, atrial fibrillation was noted Electronically Signed on 03-27-2021 18:09:43 EDT by Ezra Wilkinson
== END 2021-03-26 10:25 | disposition expired | DRG 871 ==
LOC: M ED 15:41 → M ED INP 18:50 → M PCU 03-23 01:37 → M MSPAV 03-24 16:46 → M PCU 03-26 09:11
PROVIDERS: ADMIT Internal Medicine Nephrology; ATTEND Family Medicine
PROC: 05HC33Z Insertion of Infusion Device into Left Basilic Vein, Percutaneous Approach (ICD-10-PCS; principal; 2021-03-23 15:30)
PROC: 5A1935Z Respiratory Ventilation, Less than 24 Consecutive Hours (ICD-10-PCS; 2021-03-26)
DX: A41.9 Sepsis, unspecified organism (principal); J18.9 Pneumonia, unspecified organism; R65.21 Severe sepsis with septic shock; I50.23 Acute on chronic systolic (congestive) heart failure; J96.01 Acute respiratory failure with hypoxia; I69.251 Hemiplegia and hemiparesis following other nontraumatic intracranial hemorrhage affecting right dominant side; I48.20 Chronic atrial fibrillation, unspecified; N17.9 Acute kidney failure, unspecified; L03.115 Cellulitis of right lower limb; I82.503 Chronic embolism and thrombosis of unspecified deep veins of lower extremity, bilateral; I47.2 Ventricular tachycardia; E87.2 Acidosis; Z66 Do not resuscitate; N18.9 Chronic kidney disease, unspecified; I69.328 Other speech and language deficits following cerebral infarction; I25.10 Atherosclerotic heart disease of native coronary artery without angina pectoris; Z95.5 Presence of coronary angioplasty implant and graft; I25.5 Ischemic cardiomyopathy; G40.909 Epilepsy, unspecified, not intractable, without status epilepticus; Z95.0 Presence of cardiac pacemaker; Z79.82 Long term (current) use of aspirin; Z79.899 Other long term (current) drug therapy; Z88.8 Allergy status to other drugs, medicaments and biological substances; F32.A Depression, unspecified; F41.9 Anxiety disorder, unspecified; K59.09 Other constipation; G25.81 Restless legs syndrome; Z87.891 Personal history of nicotine dependence; Z95.828 Presence of other vascular implants and grafts; D64.9 Anemia, unspecified; R33.9 Retention of urine, unspecified; R31.9 Hematuria, unspecified; Z53.8 Procedure and treatment not carried out for other reasons; I95.9 Hypotension, unspecified; Z79.01 Long term (current) use of 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s; I46.9 Cardiac arrest, cause unspecified

== ENCOUNTER → 2021-03-22 | Outpatient (CLI) | payer MEDICARE, MEDICAID ==
[~2021-03-22] MED LIST changes: +ACET-907 PO; +ASPI-161 PO; +DULO1CAP4 PO; +ELIQ5TAB PO; +ENTR1TAB PO; +FLEEENE12 PR; +MILK400S19 PO; +ROZE8TAB16 PO; +SENN8.6T28 PO; +TORS20TA2 PO
--- NOTE | 2021-03-22 16:19 | REP ---
INDICATION: UNK. COMPARISON: None. TECHNIQUE: Real time [place] scale and Duplex Doppler evaluation of the right lower extremity arterial vasculature using linear high frequency transducer. FINDINGS: Evaluation of calf arteries is limited due to overlying bandaging. Waveforms of the right lower extremity arterial structures are diffusely monophasic. There is no duplex Doppler sonographic evidence of focal stenosis. There is no evidence for occlusion of the visualized arterial structures. Mild scattered plaquing is noted. PSV(cm/sec) Common femoral artery: 68 cm/s Profunda femoris artery: 80 cm/s Proximal superficial femoral artery: 78 cm/s Mid superficial femoral artery: 95 cm/s Distal superficial femoral artery: 87 cm/s Popliteal artery: 63 cm/s Proximal DAVID: Not seen cm/s Tibioperoneal trunk: 90 cm/s Proximal NAIL ASSEMBLY MACHINE OPERATOR: Not seen cm/s Distal NAIL ASSEMBLY MACHINE OPERATOR: Not seen cm/s Distal DAVID: Not seen cm/s IMPRESSION: Mild scattered plaque with no evidence of occlusion or significant stenosis of the visualized arterial structures. The calf arteries could not be visualized due to overlying bandaging. <Electronically signed by Pedro Washington > 03/22/21 [id number]
--- NOTE | 2021-03-22 16:20 | REP ---
INDICATION: R/O DVT RT LEG. COMPARISON: 07/20/2020 which showed a nonocclusive thrombus in the deep veins of the right thigh. TECHNIQUE: Multiple ultrasonographic images of the deep venous structures of the right lower extremity were obtained from the inguinal ligament to the ankle. Venous compression techniques, color doppler imaging, and augmentation techniques were also obtained where appropriate. As per the ACR guidelines the anterior tibial vein can not be effectively evaluated. Only compression techniques in the calf on the peroneal and posterior tibial veins was attempted/performed. FINDINGS: There is no abnormal echogenic material seen within any of the visualized deep venous structures that would suggest acute thrombosis. Coaptation is unremarkable throughout. Doppler interrogation shows an expected response to respiratory variability and augmentation in the thigh. Compression techniques in the calf were unobtainable. The color flow images show what appears to be a normal vascular pattern throughout the thigh. There is linear echogenic material seen in the same vessels where nonocclusive acute thrombus was diagnosed from the prior exam. 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 Certainly, this examination cannot determine whether or not there is additional acute disease superimposed upon chronic change. The fact that vessel coaptation was identified is reassuring. Due to the fact that the the calf deep veins particularly the peroneal vein and posterior tibial vein could not be imaged a deep vein thrombosis in the calf cannot be ruled out by today's exam. <Electronically signed by David Maldonado > 03/22/21 [id number]
== END ==
LOC: M RAD 14:53
PROVIDERS: ATTEND Nurse Practitioner Family
DX: R22.41 Localized swelling, mass and lump, right lower limb (principal); L81.9 Disorder of pigmentation, unspecified; I70.201 Unspecified atherosclerosis of native arteries of extremities, right leg

== ENCOUNTER → 2021-03-22 | Outpatient (REF) | payer MEDICARE, MEDICAID ==
[~2021-03-22] MED LIST changes: +LOSA25TA13 PO; -LOSA25TA14 PO
== END ==
LOC: SKLAB3 06:55
PROVIDERS: ATTEND Internal Medicine
DX: Z20.822 Contact with and (suspected) exposure to COVID-19 (principal)

== ENCOUNTER → 2021-03-22 | Outpatient (REF) | payer MEDICARE, MEDICAID ==
[2021-03-22 14:50] LABS: ALBUMIN 2.2 GM/DL (3.2-5.2); CALCIUM LEVEL 8.6 MG/DL (8.8-10.2); CREATININE FOR GFR 5.77 MG/DL (0.70-1.30); GLOMERULAR FILTRATION RATE 10.4 (>42); PHOSPHORUS LEVEL 4.4 MG/DL (2.5-4.9); POTASSIUM SERUM 4.3 MEQ/L (3.5-5.1)
== END ==
LOC: SKLAB3 07:00
PROVIDERS: ATTEND Neuromusculoskeletal Medicine & OMM
DX: M79.89 Other specified soft tissue disorders (principal)